=== PATIENT | female | born 1985 | race African-American/Black ===

== ENCOUNTER 2023-11-01 15:45 | Outpatient (OUT) | payer OTHER, SELFPAY ==
--- NOTE | 2023-11-01 18:43 | US_ITS ---
[address] [address] Patient Name: JESSICA MOELLER MRN: [id number] date: 1985 Sex: F Assigned Patient Location: Current Patient Location: Accession/Order Number: [id number] Exam Date: 11/01/2023 18:49 Report Date: 11/02/2023 04:17 At the request of: ELIUD RIVERO Procedure: US OB transvaginal EXAMINATION: US OB transvaginal HISTORY: MISSED MENSES N92.6 COMPARISON: No relevant comparison available. FINDINGS: GESTATIONAL SAC: Present and normal appearing. YOLK SAC: Present and normal appearing. POLE: Present and normal appearing. CARDIAC: Present. UTERUS: Normal size and appearance. OVARIES: Right: Corpus lutein cyst. Left: Normal. CERVIX: 3.7 cm in length and closed. CUL-DE-SAC: Normal. OTHER: None. AGE BY LMP: 8 weeks 5 days RINA BY LMP: 06/07/2024 AGE BY US CRL: 8 weeks 6 days RINA BY US CRL: 06/06/2024 US/US OB transvaginal IMPRESSION: 1. Single live intrauterine . Electronically authenticated by: MICHAEL ORTEGA Date: 11/02/2023 04:17
== END 2023-11-01 15:46 | disposition home or self-care (01) ==
PROVIDERS: PCP Family Medicine; Visit Provider Obstetrics & Gynecology
DX: N92.6 Irregular menstruation, unspecified (principal); Z36.0 Encounter for antenatal screening for chromosomal anomalies; Z3A.08 8 weeks gestation of pregnancy
CPT/HCPCS: 76817; 83036; 86592; 86762; 86803; 86850; 86900; 86901; 87086; 87340; 87389

== ENCOUNTER 2023-11-10 11:46 | Emergency (ER) | payer OTHER, SELFPAY ==
--- OUTSIDE RECORDS SUMMARY | 2023-11-10 11:59 | XMS_ITS | CCD ---
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 Name Role Phone Vicky Joe Unavailable WEST, DR SANON Admitting Unavailable KARASIK, DR SANON Attending Unavailable KARASIK, DR SANON Consulting Unavailable KARASIK, DR SANON Attending Unavailable KARASIK, DR SANON Consulting Unavailable KARASIK, DR SANON Admitting Unavailable CARVAJAL, AIDAN Attending Unavailable CARVAJAL, AIDAN Consulting Unavailable CARVAJAL, AIDAN Admitting Unavailable CRICKETJUAN ANTONIO Attending Unavailable LUIS-NOSSEK, TERESA Alonzo Attending Unavailab le FIOR, EVONNE Attending Unavailable CRICKET, JUAN ANTONIO F Attending Unavailable LUIS-NOSSEK, TERESA M Attending Unavailab le CRICKET, JUAN ANTONIO F Attending Unavailable CRICKET, JUAN ANTONIO F Attending Unavailable CARVAJALAIDAN R Referring Unavailable CARVAJALAIDAN Attending Unavailable CRICKET, JUAN ANTONIO F Attending Unavailable LUIS-NOSSEK, TERESA M Attending Unavailab le FIOR, EVONNE Attending Unavailable LUIS-NOSSEK, TERESA M Attending Unavailab le LUIS-NOSSEK, TERESA M Attending Unavailab le LUIS-NOSSEK, TERESA M Attending Unavailab le LUIS-NOSSEK, TERESA M Attending Unavailab le Allergies Allergy Classification Reported Allergen(s) Allergy Type Date of Onset Reaction(s) Facility (1 source) Aspirin Drug Allergy shortness of breath [employer] Other (1 source) Diclofenac Drug Allergy Unknown [employer] Other (1 source) Ibuprofen Drug Allergy Unknown [employer] Other (1 source) Naproxen Drug Allergy Unknown [employer] Other (1 source) NSAIDs Drug allergy Unknown [employer] Other (1 source) Aspirin Drug Allergy 02-26-18 90 [facility] (1 source) cyclobenzaprine Drug Allergy 01-10-20 15 [facility] (1 source) Diclofenac Drug Allergy 01-10-20 15 [facility] (1 source) Ibuprofen Drug Allergy 08-04-19 16 [facility] (1 source) NSAIDs Drug allergy (disorder) 01-02-20 14 [facility] Medications Current Medications Medication Drug Class(es) Dates Sig (Normalized) Sig (Original) Albuterol Sulfate 108 (90 Base) MCG/ACT (1 source) take 1 puff(s) by inhalation every four hours as needed Albuterol Sulfate 108 (90 Base) MCG/ACT 1 puff as needed Inhalation every 4 hrs Active Benzoyl Peroxide / Clindamycin (1 source) Lincosamide Antibacterial Duac 1.2-5 % Externally Active calcium carbonate 1500 mg / cholecalciferol 200 unt oral tablet (1 source) Vitamin D take 1 tablet by mouth every twenty-four hours Calcium + D 600-200 MG-UNIT 1 tablet with food Orally Once a day Active clonazePAM 0.5 mg disintegrating oral tablet (1 source) Benzodiazepine take 1 tablet by mouth every twelve hours clonazePAM 0.5 MG 1 tablet on the tongue and allow to dissolve Orally Twice a day Active dicyclomine hydrochloride 20 mg oral tablet (1 source) Anticholinergic take 1 tablet by mouth every eight hours Dicyclomine HCl 20 mg 1 tablet Orally THREE TIMES A DAY for 30 days Active ethinyl estradiol 0.03 mg / norethindrone acetate 1.5 mg oral tablet (1 source) Estrogen take 1 tablet by mouth every twenty-four hours Junel 1.530 1.5-30 MG-MCG 1 tablet Orally Once a day Active Fish Oils (1 source) take 1 capsule by mouth once daily Fish Oil 1000 MG 1 capsule Orally Once a day Active fluticasone propionate 0.05 mg/actuat metered dose nasal spray (1 source) Corticosteroid take 1 spray(s) nasal route once daily Flonase 50 MCG/DOSE 1 spray in each nostril Nasally Once a day Active lidocaine 0.05 mg/mg topical ointment (1 source) Antiarrhythmic, Amide Local Anesthetic Lidocaine 5 % 1 application to affected area as needed Externally Three times a day Active montelukast 5 mg chewable tablet (1 source) Leukotriene Receptor Antagonist take 2 tablets by mouth every twenty-four hours Singulair 5 MG 2 tablets in the evening Orally Once a day Active naratriptan 2.5 mg oral tablet (1 source) Serotonin-1b and Serotonin-1d Receptor Agonist take 1 tablet by mouth every twenty-four hours Amerge 2.5 MG 1 tablet as needed one time Orally Once a day Active omeprazole 20 mg delayed release oral capsule (1 source) Proton Pump Inhibitor take 1 capsule by mouth every twenty-four hours Omeprazole 20 MG 1 capsule Orally Once a day Active 24 hr paliperidone 1.5 mg extended release oral tablet (1 source) Atypical Antipsychotic take 2 tablets by mouth at bedtime Invega 1.5 MG 2 tablets in the morning Orally AT BEDTIME Active pantoprazole 40 mg delayed release oral tablet (1 source) Proton Pump Inhibitor Start: 08-02-2016 take 1 tablet by mouth every twenty-four hours Pantoprazole Sodium 40 mg 1 tablet Orally Once a day for 30 days Jul, Active promethazine hydrochloride 25 mg oral tablet (2 sources) Phenothiazine Promethazine HCl 25 MG 1/2 -1 TABLET Orally THREE TIMES A DAY Active Promethazine HCl Active QUEtiapine 25 mg oral tablet (1 source) Atypical Antipsychotic take 1 tablet by mouth every twenty-four hours SEROquel 25 MG 1 tablet Orally Once a day Active sulfamethoxazole 800 mg / trimethoprim 160 mg oral tablet (1 source) Dihydrofolate Reductase Inhibitor Antibacterial, Sulfonamide Antimicrobial take 1 tablet by mouth every twenty-four hours Bactrim DS 800-160 MG 1 tablet Orally DAILY Active tiZANidine 4 mg oral capsule (1 source) Central alpha-2 Adrenergic Agonist take 1 capsule by mouth every eight hours Zanaflex 4 MG 1 capsule as needed Orally Three times a day Active tretinoin 0.5 mg/ml topical cream (1 source) Retinoid Tretinoin 0.05 % 1 application to affected area in the evening to face Externally Once a day Active triamcinolone acetonide 1 mg/ml topical cream (1 source) Corticosteroid Triamcinolone Acetonide 0.1 % 1 application to affected area Externally Twice a day Active vitamin B12 (1 source) Vitamin B12 Vitamin B12 INJECTION MONTHLY Active zonisamide 100 mg oral capsule (1 source) Anti-epileptic Agent take 1 capsule by mouth every twenty-four hours Zonisamide 100 MG 1 capsule Orally Once a day Active Problems Active Problems Problem Classification Problem Date Documented Date Episodic/Chronic Esophageal disorders (1 source) Gastroesophageal reflux disease; Translations: [Gastro-esophageal reflux disease without esophagitis] Chronic Immunizations and screening for infectious disease (2 sources) Encounter for immunization; Translations: [Encounter for screening for human papillomavirus (HPV)] Onset: 05-11-2021 Resolved: 05-11-2021 Episodic Other screening for suspected conditions (not mental disorders or infectious disease) (4 sources) Encounter for screening for malignant neoplasm of cervix; Translations: [ENC SCREENING MALIG NEOPLASM CERV] Onset: 11-09-2021 Episodic Unclassified (2 sources) CONTACT W/AND (SUSP) EXPOS COVID-19; Translations: [CONTACT W/AND (SUSP) EXPOS COVID-19] Onset: 03-06-2021 Viral infection (1 source) COVID-19; Translations: [COVID-19] Onset: 03-06-2021 Past or Other Problems Problem Classification Problem Date Documented Da te Episodic/Chronic Abdominal pain (2 sources) Epigastric pain; Translations: [Epigastric pain] Episodic Nausea and vomiting (1 source) Nausea and vomiting; Translations: [Nausea with vomiting, unspecified] Episodic Other female genital disorders (4 sources) Other specified noninflammatory disorders of vagina; Translations: [OTH SPEC NONINFLAMMATORY D/O VAGINA] Onset: 12-10-2020 Episodic Other gastrointestinal disorders (1 source) Constipation alternates with diarrhea; Translations: [Other specified symptoms and signs involving the digestive system and abdomen] Episodic Other gastrointestinal disorders (1 source) Diarrhea; Translations: [Diarrhea, unspecified] Episodic Unclassified (1 source) CONTACT W/AND (SUSP) EXPOS COVID-19; Translations: [CONTACT W/AND (SUSP) EXPOS COVID-19] Onset: 03-01-2021 Results Test Name Value Interpretation Reference Range Facility XR CERVICAL SPINE AP/LAT/FLE X/EXT/OBLIQUESon 08-16-2023 XR CERVICAL SPINE AP/LAT/FLEX/EXT/OB LIQUES FINDINGS: Normal disc space heights. Minimal osteophyte formation throughout the cervical spine. Mild facet arthropathy. No significant neuroforaminal stenosis. No fracture or focal soft tissue swelling is seen. Prevertebral soft tissues are normal. Flexion and extension: Normal alignment, no instability. IMPRESSION: 1. MInimal arthritis, normal alignment. 2. No instability. TRANSCRIBED BY: ELECTRONICALLY SIGNED BY: Alexei Smith MD Normal Not Available CALCIUMon 12-18-2022 Calcium [Mass/Vol] 8.9 mg/dL Normal (8.6 - 10.6) [facility] Comment on above: Performed By: #### C BC/2A, ESRCRP, CCP, HBC-M, HBSAG, HCV, CA, MG, RHF, URCA #### [facility] [address] [facility], [address] CBC, ALB, ALT, AST, ALK AND CREAon 12-18-2022 Albumin [Mass/Vol] 5.0 g/dL Normal (3.5 - 5.0) [facility] Comment on above: Order Comment: FACIL ITY: [facility] [id number] Performed By: #### C BC/2A, ESRCRP, CCP, HBC-M, HBSAG, HCV, CA, MG, RHF, URCA #### [facility] [address] [facility], [address] ALK PHOS 60 U/L Normal (38 - 126) [facility] Comment on above: Order Comment: FACIL ITY: [facility] [id number] Performed By: #### C BC/2A, ESRCRP, CCP, HBC-M, HBSAG, HCV, CA, MG, RHF, URCA #### [facility] [address] [facility], [address] ALT [Catalytic activity/Vol] 34 U/L Normal (1 - 35) [facility] Comment on above: Order Comment: FACIL ITY: [facility] [id number] Performed By: #### C BC/2A, ESRCRP, CCP, HBC-M, HBSAG, HCV, CA, MG, RHF, URCA #### [facility] [address] [facility], [address] AST [Catalytic activity/Vol] 34 U/L Normal (15 - 46) [facility] Comment on above: Order Comment: FACIL ITY: [facility] [id number] Performed By: #### C BC/2A, ESRCRP, CCP, HBC-M, HBSAG, HCV, CA, MG, RHF, URCA #### [facility] [address] [facility], [id number] Creatinine [Mass/Vol] 0.61 mg/dL Normal (0.52 - 1.04) [facility] Comment on above: Order Comment: FACIL ITY: [facility] [id number] Performed By: #### C BC/2A, ESRCRP, CCP, HBC-M, HBSAG, HCV, CA, MG, RHF, URCA #### [facility] [address] [facility], [id number] GFR- AMER 135.1 ML/M1.7 Normal (60.0 - 140.1) [facility] Comment on above: Order Comment: FACIL ITY: [facility] [id number] Performed By: #### C BC/2A, ESRCRP, CCP, HBC-M, HBSAG, HCV, CA, MG, RHF, URCA #### [facility] [address] [facility], [id number] GFR-NON AFRIC-AMER 111.6 ML/M1.7 Normal (60.0 - 115.8) [facility] Comment on above: Order Comment: FACIL ITY: [facility] [id number] Performed By: #### C BC/2A, ESRCRP, CCP, HBC-M, HBSAG, HCV, CA, MG, RHF, URCA #### [facility] [address] [facility], [address] Hematocrit (Bld) [Volume fraction] 41.5 % Normal (37.0 - 47.0) [facility] Comment on above: Order Comment: FACIL ITY: [facility] [id number] Performed By: #### C BC/2A, ESRCRP, CCP, HBC-M, HBSAG, HCV, CA, MG, RHF, URCA #### [facility] [address] [facility], [address] Hemoglobin (Bld) [Mass/Vol] 13.5 g/dL Normal (12.0 - 16.0) [facility] Comment on above: Order Comment: FACIL ITY: [facility] [id number] Performed By: #### C BC/2A, ESRCRP, CCP, HBC-M, HBSAG, HCV, CA, MG, RHF, URCA #### [facility] [address] [facility], [id number] MCH (RBC) [Entitic mass] 28.7 pg Normal (27.0 - 33.0) [facility] Comment on above: Order Comment: FACIL ITY: [facility] [id number] Performed By: #### C BC/2A, ESRCRP, CCP, HBC-M, HBSAG, HCV, CA, MG, RHF, URCA #### [facility] [address] [facility], [address] MCHC (RBC) [Mass/Vol] 32.5 g/dL Normal (30.0 - 37.0) [facility] Comment on above: Order Comment: FACIL ITY: [facility] [id number] Performed By: #### C BC/2A, ESRCRP, CCP, HBC-M, HBSAG, HCV, CA, MG, RHF, URCA #### [facility] [address] [facility], [id number] MCV (RBC) [Entitic vol] 88.1 fL Normal (81.0 - 99.0) [facility] Comment on above: Order Comment: FACIL ITY: [facility] [id number] Performed By: #### C BC/2A, ESRCRP, CCP, HBC-M, HBSAG, HCV, CA, MG, RHF, URCA #### [facility] [address] [facility], [address] PLT 282 x10^3ul Normal (130 - 400) [facility] Comment on above: Order Comment: FACIL ITY: [facility] [id number] Performed By: #### C BC/2A, ESRCRP, CCP, HBC-M, HBSAG, HCV, CA, MG, RHF, URCA #### [facility] [address] [facility], [address] RBC 4.71 x10^6ul Normal (4.20 - 5.40) [facility] Comment on above: Order Comment: FACIL ITY: [facility] [id number] Performed By: #### C BC/2A, ESRCRP, CCP, HBC-M, HBSAG, HCV, CA, MG, RHF, URCA #### [facility] [address] [facility], [address] WBC 6.47 x10^3ul Normal (3.80 - 10.60) [facility] Comment on above: Order Comment: FACIL ITY: [facility] [id number] Performed By: #### C BC/2A, ESRCRP, CCP, HBC-M, HBSAG, HCV, CA, MG, RHF, URCA #### [facility] [address] [facility], [address] HEP B CORE AB, IGMon HEPATITIS B CORE ANTIBODY, IGM Negative Normal (NEG - NEG) [facility] Comment on above: Performed By: #### C BC/2A, ESRCRP, CCP, HBC-M, HBSAG, HCV, CA, MG, RHF, URCA #### [facility] [address] [facility], [address] HEP B HERACLIO AGon 12-18-2022 HEP B HERACLIO AG Negative Normal (NEG - NEG) [facility] Comment on above: Performed By: #### C BC/2A, ESRCRP, CCP, HBC-M, HBSAG, HCV, CA, MG, RHF, URCA #### [facility] [address] [facility], [address] HEP C ANTIBODYon 12-18-2022 HEPATITIS C ANTIBODY Negative Normal (NEG - NEG) [facility] Comment on above: Performed By: #### C BC/2A, ESRCRP, CCP, HBC-M, HBSAG, HCV, CA, MG, RHF, URCA #### [facility] [address] [facility], [address] MAGNESIUMon 12-18-2022 Magnesium [Mass/Vol] 2.0 mg/dL Normal (1.6 - 2.3) [facility] Comment on above: Performed By: #### C BC/2A, ESRCRP, CCP, HBC-M, HBSAG, HCV, CA, MG, RHF, URCA #### [facility] [address] [facility], [address] RF FACTORon 12-18-2022 RF FACTOR <9 Normal (0 - 12) [facility] Comment on above: Result Comment: RF F ACTOR = LESS THAN 9 IU/ML RF FACTOR MIN. DETECTION = 9 IU/ML. Performed By: #### C BC/2A, ESRCRP, CCP, HBC-M, HBSAG, HCV, CA, MG, RHF, URCA #### [facility] [address] [facility], [address] SED RATE - CRPon 12-18-2022 CRP EXTENDED RANGE 1.40 MG/L Normal (0.00 - 3.20) [facility] Comment on above: Performed By: #### C BC/2A, ESRCRP, CCP, HBC-M, HBSAG, HCV, CA, MG, RHF, URCA #### [facility] [address] [facility], [address] SED RATE WEST. 5 MM/HR Normal (0 - 25) [facility] Comment on above: Performed By: #### C BC/2A, ESRCRP, CCP, HBC-M, HBSAG, HCV, CA, MG, RHF, URCA #### [facility] [address] [facility], [address] URIC ACIDon 12-18-2022 Urate [Mass/Vol] 4.2 mg/dL Normal (2.5 - 6.2) [facility] Comment on above: Performed By: #### C BC/2A, ESRCRP, CCP, HBC-M, HBSAG, HCV, CA, MG, RHF, URCA #### [facility] [address] [facility], [address] PAP ACOG PANEL 2: 30 to 65on 11-16-2021 . . Normal [facility] Comment on above: Result Comment: Perf ormed at: WB Performed By: #### 4 [id number] #### [facility] [address] [address] [address] Sierra Almonte Age Gdln ACOG Testing 30-65 [facility] Comment on above: Performed By: #### 4 [id number] #### [facility] [address] [address] [address] Sierra Almonte DIAGNOSIS: Comment Normal [facility] Comment on above: Result Comment: NEGA TIVE FOR INTRAEPITHELIAL LESION OR MALIGNANCY. Performed at: WB Performed By: #### 4 [id number] #### [facility] [address] [address] [address] Sierra Almonte HPV Aptima Negative Normal Negative [facility] Comment on above: Result Comment: This nucleic acid amplification test detects fourteen high-risk HPV types (16,18,31,33,35,39,45,51,52,56,58,59,66,68) without differentiation. Performed at: =G Performed By: #### 4 [id number] #### [facility] [address] [address] [address] Sierra Almonte Methodology: Comment Normal [facility] Comment on above: Result Comment: This liquid based ThinPrep(R) pap test was screened with the use of an image guided system. Performed at: WB Performed By: #### [id number] #### [facility] [address] [address] [address] Sierra Almonte Note: Comment Normal [facility] Comment on above: Result Comment: The Pap smear is a screening test designed to aid in the detection of premalignant and malignant conditions of the uterine cervix. It is not a diagnostic procedure and should not be used as the sole means of detecting cervical cancer. Both false-positive and false-negative reports do occur. . Performed at: WB Performed By: #### 4 [id number] #### [facility] [address] [address] [address] Sierra Almonte Performed by: Comment Normal [facility] Comment on above: Result Comment: Alison Sapp, Bowling Teacher (ASCP) Performed at: WB Performed By: #### 4 [id number] #### [facility] [address] [address] [address] Sierra Almonte Specimen adequacy: Comment Normal [facility] Comment on above: Result Comment: Sati sfactory for evaluation. Endocervical and/or squamous metaplastic cells (endocervical component) are present. Performed at: WB Performed By: #### 4 [id number] #### [facility] [address] [address] [address] Sierra Almonte US Thyroidon 07-14-2021 US Thyroid HISTORY: Hyperthyroidism FINDINGS: Right Lobe: 3.9 x 1.4 x 1.8 cm Left Lobe: 4.4 x 1.4 x 1.2 cm Isthmus (Thickness)2 mm Normal echotexture involves the thyroid gland. No significant enlargement is identified. No suspicious cystic or solid mass lesions are seen. IMPRESSION: Normal thyroid ultrasound. RECOMMENDATIONS CANCER RISK (ACR TI-RADS 2018) TR1: no FNA required TR1: 0.3% TR2: no FNA required TR2: 1.5 % TR3>: 1.5 cm follow up, >2.5 cm FNA TR3: 4.8 % Follow up 1, 3, 5 years TR4:>1.0 cm follow up >1.5 cm FNA TR4: 9.1 % Follow up: 1, 2, 3 and 5 years TR5:> 0.5 cm follow up, >1.0 cm FNA TR5: 35% Annual follow up for up to 5 years Biopsy is recommended for suspicious lesions (TR3-TR5) with the above size criteria. If there are multiple nodules, the two with the highest ACR TI-RADS grades should be sampled (rather than the two largest) Interval enlargement on follow up is felt to be significant if there is a increase of 20% and 2 mm in two dimensions, or a 50% increase in volume. If the ACR TI-RAD level increases between scans, and interval scan the following year is again recommended. Report reported and signed by Alexei Smith on 07/14/2021 1000 Normal [facility] Complete Blood Count with Au to Diffon 07-12-2021 Basophils (Bld) [#/Vol] 0.02 10*3/uL Normal 0.00-0.20 [facility] Comment on above: Performed By: #### C BCAD, RF, VITD, ESR, TSH reflex FT4, CMP, FT4 #### [facility] [address], [place] [id number] Basophils/100 WBC (Bld) 0.3 % Normal [facility] Comment on above: Performed By: #### C BCAD, RF, VITD, ESR, TSH reflex FT4, CMP, FT4 #### [facility] [address], [place] [id number] Eosinophils (Bld) [#/Vol] 0.08 10*3/uL Normal 0.02-0.50 [facility] Comment on above: Performed By: #### C BCAD, RF, VITD, ESR, TSH reflex FT4, CMP, FT4 #### [facility] [address], [place] [id number] Eosinophils/100 WBC (Bld) 1.2 % Normal [facility] Comment on above: Performed By: #### C BCAD, RF, VITD, ESR, TSH reflex FT4, CMP, FT4 #### [facility] [address], [place] [id number] Erythrocyte distribution width (RBC) [Ratio] 13.8 % Normal 11.0-15.0 [facility] Comment on above: Performed By: #### C BCAD, RF, VITD, ESR, TSH reflex FT4, CMP, FT4 #### [facility] [address], [place] [id number] Hematocrit (Bld) [Volume fraction] 39.6 % Normal 35.0-47.0 [facility] Comment on above: Performed By: #### C BCAD, RF, VITD, ESR, TSH reflex FT4, CMP, FT4 #### [facility] [address], [place] [id number] Hemoglobin (Bld) [Mass/Vol] 12.9 g/dL Normal 11.6-15.5 [facility] Comment on above: Performed By: #### C BCAD, RF, VITD, ESR, TSH reflex FT4, CMP, FT4 #### [facility] [address], [place] [id number] Lymphocytes (Bld) [#/Vol] 1.3 10*3/uL Normal 0.9-3.9 [facility] Comment on above: Performed By: #### C BCAD, RF, VITD, ESR, TSH reflex FT4, CMP, FT4 #### [facility] [address], [place] [id number] Lymphocytes/100 WBC (Bld) 20.3 % Normal [facility] Comment on above: Performed By: #### C BCAD, RF, VITD, ESR, TSH reflex FT4, CMP, FT4 #### [facility] [address], [place] [id number] MCH (RBC) [Entitic mass] 28.3 pg Normal 27.0-33.0 [facility] Comment on above: Performed By: #### C BCAD, RF, VITD, ESR, TSH reflex FT4, CMP, FT4 #### [facility] [address], [place] [id number] MCHC (RBC) [Mass/Vol] 32.6 g/dL Normal 32.0-36.0 [facility] Comment on above: Performed By: #### C BCAD, RF, VITD, ESR, TSH reflex FT4, CMP, FT4 #### [facility] [address], [place] [id number] MCV (RBC) [Entitic vol] 87 fL Normal 80-100 [facility] Comment on above: Performed By: #### C BCAD, RF, VITD, ESR, TSH reflex FT4, CMP, FT4 #### [facility] [address], [place] [id number] Monocytes (Bld) [#/Vol] 0.4 10*3/uL Normal 0.2-0.9 [facility] Comment on above: Performed By: #### C BCAD, RF, VITD, ESR, TSH reflex FT4, CMP, FT4 #### [facility] [address], [place] [id number] Monocytes/100 WBC (Bld) 5.8 % Normal [facility] Comment on above: Performed By: #### C BCAD, RF, VITD, ESR, TSH reflex FT4, CMP, FT4 #### [facility] [address], [place] [id number] Neutrophils (Bld) [#/Vol] 4.7 10*3/uL Normal 1.5-7.8 [facility] Specialist Comment on above: Performed By: #### C BCAD, RF, VITD, ESR, TSH reflex FT4, CMP, FT4 #### [facility] [address], [place] [id number] Neutrophils/100 WBC (Bld) 72.1 % Normal [facility] Specialist Comment on above: Performed By: #### C BCAD, RF, VITD, ESR, TSH reflex FT4, CMP, FT4 #### [facility] [address], [place] [id number] Platelet mean volume (Bld) [Entitic vol] 11.00 fL Normal 7.50-12.50 [facility] Specialist Comment on above: Performed By: #### C BCAD, RF, VITD, ESR, TSH reflex FT4, CMP, FT4 #### [facility] [address], [place] [id number] Platelets (Bld) [#/Vol] 271 10*3/uL Normal 140-400 [facility] Specialist Comment on above: Performed By: #### C BCAD, RF, VITD, ESR, TSH reflex FT4, CMP, FT4 #### [facility] [address], [place] [id number] RBC (Bld) [#/Vol] 4.56 10*6/uL Normal 3.90-5.20 [facility] Charge Master Analyst Comment on above: Performed By: #### C BCAD, RF, VITD, ESR, TSH reflex FT4, CMP, FT4 #### [facility] [address], [place] [id number] RDW-SD 43.5 fL Normal 37.0-50.0 [facility] Charge Master Analyst Comment on above: Performed By: #### C BCAD, RF, VITD, ESR, TSH reflex FT4, CMP, FT4 #### [facility] [address], [place] [id number] WBC (Bld) [#/Vol] 6.5 10*3/uL Normal 3.8-11.0 [facility] Charge Master Analyst Comment on above: Performed By: #### C BCAD, RF, VITD, ESR, TSH reflex FT4, CMP, FT4 #### [facility] [address], [place] [id number] Comprehensive Metabolic Pane [facility] 07-12-2021 Albumin [Mass/Vol] 4.9 g/dL Normal 3.6-5.1 [facility] Charge Master Analyst Comment on above: Performed By: #### C BCAD, RF, VITD, ESR, TSH reflex FT4, CMP, FT4 #### [facility] [address], [place] [id number] Albumin/Globulin [Mass ratio] 2.2 {ratio} Normal 1.0-2.5 [facility] Charge Master Analyst Comment on above: Performed By: #### C BCAD, RF, VITD, ESR, TSH reflex FT4, CMP, FT4 #### [facility] [address], [place] [id number] ALP [Catalytic activity/Vol] 63 U/L Normal 35-119 [facility] Charge Master Analyst Comment on above: Performed By: #### C BCAD, RF, VITD, ESR, TSH reflex FT4, CMP, FT4 #### [facility] [address], [place] [id number] ALT [Catalytic activity/Vol] 26 U/L Normal 6-33 [facility] Charge Master Analyst Comment on above: Result Comment: 01/26 Female reference range changed. Performed By: #### C BCAD, RF, VITD, ESR, TSH reflex FT4, CMP, FT4 #### [facility] [address], [place] [id number] Anion gap [Moles/Vol] 18 mmol/L Normal 12-20 [facility] Comment on above: Result Comment: Efflynette ctive 03/03/2019 reference range changed. Performed By: #### C BCAD, RF, VITD, ESR, TSH reflex FT4, CMP, FT4 #### [facility] [address], [place] [id number] AST [Catalytic activity/Vol] 26 U/L Normal 9-34 [facility] Comment on above: Performed By: #### C BCAD, RF, VITD, ESR, TSH reflex FT4, CMP, FT4 #### [facility] [address], [place] [id number] BUN/CREA 10 Ratio Normal 6-22 [facility] Comment on above: Performed By: #### C BCAD, RF, VITD, ESR, TSH reflex FT4, CMP, FT4 #### [facility] [address], [place] [id number] Calcium [Mass/Vol] 10.0 mg/dL Normal 8.6-10.2 [facility] Comment on above: Performed By: #### C BCAD, RF, VITD, ESR, TSH reflex FT4, CMP, FT4 #### [facility] [address], [place] [id number] Chloride [Moles/Vol] 105 mmol/L Normal 98-107 [facility] Specialist Comment on above: Performed By: #### C BCAD, RF, VITD, ESR, TSH reflex FT4, CMP, FT4 #### [facility] [address], [place] [id number] CO2 [Moles/Vol] 21 mmol/L Normal 20-31 [facility] Specialist Comment on above: Performed By: #### C BCAD, RF, VITD, ESR, TSH reflex FT4, CMP, FT4 #### [facility] [address], [place] [id number] Creatinine [Mass/Vol] 0.6 mg/dL Normal 0.6-1.4 [facility] Specialist Comment on above: Performed By: #### C BCAD, RF, VITD, ESR, TSH reflex FT4, CMP, FT4 #### [facility] [address], [place] [id number] eGFRAA 132 mL/min/1.73m2 Normal >60 [facility] Specialist Comment on above: Performed By: #### C BCAD, RF, VITD, ESR, TSH reflex FT4, CMP, FT4 #### [facility] [address], [place] [id number] eGFRNAA 109 mL/min/1.73m2 Normal >60 [facility] Specialist Comment on above: Performed By: #### C BCAD, RF, VITD, ESR, TSH reflex FT4, CMP, FT4 #### [facility] [address], [place] [id number] Globulin (S) [Mass/Vol] 2.2 g/dL Normal 1.9-3.7 [facility] Specialist Comment on above: Performed By: #### C BCAD, RF, VITD, ESR, TSH reflex FT4, CMP, FT4 #### [facility] [address], [place] [id number] Glucose [Mass/Vol] 86 mg/dL Normal 65-99 [facility] Charge Master Analyst Comment on above: Result Comment: For FASTING Glucose --- ADA reference ranges: Normal 65-99 mg/dl Prediabetes 100-125 Diabetes >/= 126 Performed By: #### C BCAD, RF, VITD, ESR, TSH reflex FT4, CMP, FT4 #### [facility] [address], [place] [id number] Potassium [Moles/Vol] 4.1 mmol/L Normal 3.5-5.5 [facility] Specialist Comment on above: Performed By: #### C BCAD, RF, VITD, ESR, TSH reflex FT4, CMP, FT4 #### [facility] [address], [place] [id number] Protein [Mass/Vol] 7.1 g/dL Normal 6.1-8.1 [facility] Charge Master Analyst Comment on above: Performed By: #### C BCAD, RF, VITD, ESR, TSH reflex FT4, CMP, FT4 #### [facility] [address], [place] [id number] Sodium [Moles/Vol] 140 mmol/L Normal 135-146 [place] [place] Charge Master Analyst Comment on above: Performed By: #### C BCAD, RF, VITD, ESR, TSH reflex FT4, CMP, FT4 #### [facility] [address], [place] [id number] TBIL <0.3 Normal [facility] Specialist Comment on above: Performed By: #### C BCAD, RF, VITD, ESR, TSH reflex FT4, CMP, FT4 #### [facility] [address], [place] [id number] Urea nitrogen [Mass/Vol] 7 mg/dL Normal 7-25 [facility] Charge Master Analyst Comment on above: Performed By: #### C BCAD, RF, VITD, ESR, TSH reflex FT4, CMP, FT4 #### [facility] [address], [place] [id number] Free T4on 07-12-2021 Free T4 [Mass/Vol] 0.93 ng/dL Normal 0.80-1.80 [place] Charge Master Analyst Comment on above: Performed By: #### C BCAD, RF, VITD, ESR, TSH reflex FT4, CMP, FT4 #### [facility] [address], [place] [id number] Q - PASQUALE SCREEN IFA W/RFL TIT ER AND PATTERNon 07-12-2021 PASQUALE SCREEN, IFA Negative Normal NEGATIVE [facility] Specialist Comment on above: Order Comment: [facility] Testing performed at: QPT, [facility], [address], [address] [facility], [place], [address], Fiberglass Quality Technician: Leonard Turpin MD [facility] Collection Date/Time: [facility] Results Received Date/Time: [facility] Reported Date/Time: Result Comment: PASQUALE IFA is a first line screen for detecting the presence of up to approximately 150 autoantibodies in various autoimmune diseases. A negative PASQUALE IFA result suggests an PASQUALE-associated autoimmune disease is not present at this time, but is not definitive. If there is high clinical suspicion for Sjogren's syndrome, testing for anti-SS-A/Ro antibody should be considered. Anti-Ann-1 antibody should be considered for clinically suspected inflammatory myopathies. AC-0: Negative International Consensus on PASQUALE Patterns (https://doi.org/10.1515/fgsq-1033-4860) For additional information, please refer to http://education.Stand In/faq/JSR861 (This link is being provided for informational/ educational purposes only.) Performed By: #### 2 49 #### [facility] [address] [place] [id number] RBC Sedimentation Rateon ESR (Bld) [Velocity] 8.00 mm/h Normal 0.00-20.00 [facility] Comment on above: Performed By: #### C BCAD, RF, VITD, ESR, TSH reflex FT4, CMP, FT4 #### [facility] [address], [place] [id number] Rheumatoid Factoron 07-13-19 22 RF <10 Normal [facility] Comment on above: Performed By: #### C BCAD, RF, VITD, ESR, TSH reflex FT4, CMP, FT4 #### [facility] [address], [place] [id number] TSH w/ Reflex to Free T4on 0 07-12-2021 TSH 0.321 uIU/mL Low 0.400-4.500 [facility] Charge Master Analyst Comment on above: Performed By: #### C BCAD, RF, VITD, ESR, TSH reflex FT4, CMP, FT4 #### [facility] [address], [place] [id number] Vitamin D 25-OHon 07-12-2021 VIT D 25 OH 19 ng/ml Low >29 [facility] Specialist Comment on above: Result Comment: Ade min D Status Deficiency <20 ng/mL Insufficiency 20-29 ng/mL Optimal 30-100 ng/mL Possible Toxicity >=150 ng/mL Performed By: #### C BCAD, RF, VITD, ESR, TSH reflex FT4, CMP, FT4 #### [facility] [address], [place] [id number] Comprehensive Metabolic Empo n 04-11-2021 Albumin [Mass/Vol] 4.6 g/dL Normal 3.2-5.5 [facility] Comment on above: Performed By: #### E BS CMP, EBS LIPID #### [facility] [address] [id number] [place] Albumin/Globulin [Mass ratio] 1.9 {ratio} Normal [facility] Comment on above: Performed By: #### E BS CMP, EBS LIPID #### [facility] [address] [id number] [place] ALP [Catalytic activity/Vol] 43 U/L Normal 32-92 [facility] Comment on above: Performed By: #### E BS CMP, EBS LIPID #### [facility] [address] [id number] [place] ALT [Catalytic activity/Vol] 17 U/L Normal 10-60 [facility] Comment on above: Performed By: #### E BS CMP, EBS LIPID #### [facility] [address] [place] [address] [place] AST [Catalytic activity/Vol] 20 U/L Normal 10-42 [facility] Comment on above: Performed By: #### E BS CMP, EBS LIPID #### [facility] [address] [place] [address] [place] Bilirubin [Mass/Vol] 1.1 mg/dL Normal 0.3-1.2 [facility] Comment on above: Performed By: #### E BS CMP, EBS LIPID #### [facility] [address] [place] [address] [place] Calcium [Mass/Vol] 9.6 mg/dL Normal 8.2-10.2 [facility] Comment on above: Performed By: #### E BS CMP, EBS LIPID #### [facility] [address] [place] [address] [place] Chloride [Moles/Vol] 102 mmol/L Normal 95-114 [facility] Comment on above: Performed By: #### E BS CMP, EBS LIPID #### [facility] [address] [place] [address] [place] CO2 [Moles/Vol] 21.4 mmol/L Low 22.0-30.0 [facility] Comment on above: Performed By: #### E BS CMP, EBS LIPID #### [facility] [address] Creatinine [Mass/Vol] 0.71 mg/dL Normal 0.44-1.03 [facility] Comment on above: Performed By: #### E BS CMP, EBS LIPID #### [address] Estimated GFR ( Michelle > 60 Normal [facility] Comment on above: Result Comment: GFR estimated reference range: According to KDOQI guidelines, <60 ml/min/1.73m2 is sufficient to diagnose a patient with chronic kidney disease. Performed By: #### E BS CMP, EBS LIPID #### [facility] [address] [place] [address] Estimated GFR (Non- Am > 60 Normal [facility] Comment on above: Performed By: #### E BS CMP, EBS LIPID #### [facility] [address] [place] [address] Globulin (S) [Mass/Vol] 2.4 g/dL Normal [facility] Comment on above: Performed By: #### E BS CMP, EBS LIPID #### [facility] [address] [place] [address] [place] Glucose [Mass/Vol] 76 mg/dL Normal 70-100 [facility] Comment on above: Performed By: #### E BS CMP, EBS LIPID #### [facility] [address] [place] [address] [place] Potassium [Moles/Vol] 3.3 mmol/L Low 3.5-5.1 [facility] Comment on above: Performed By: #### E BS CMP, EBS LIPID #### [facility] [address] [place] [address] Protein [Mass/Vol] 7.0 g/dL Normal 6.1-7.9 [facility] Comment on above: Performed By: #### E BS CMP, EBS LIPID #### [facility] [address] [place] [id number] [place] Sodium [Moles/Vol] 136 mmol/L Normal 136-146 [facility] Comment on above: Performed By: #### E BS CMP, EBS LIPID #### [facility] [address] [place] [id number] [place] Urea nitrogen [Mass/Vol] 5 mg/dL Low 9-23 [facility] Comment on above: Performed By: #### E BS CMP, EBS LIPID #### [facility] [address] [id number] [facility] Lipid Profileon 04-11-2021 Cholesterol [Mass/Vol] 189 mg/dL Normal 140-200 [facility] Comment on above: Result Comment: Chol less than 200 mg/dl low risk Chol 201-239 mg/dl borderline risk Chol 240 mg/dl and greater high risk Performed By: #### E BS CMP, EBS LIPID #### [facility] [address] Cholesterol in HDL [Mass/Vol] 69 mg/dL Normal 35-85 [facility] Comment on above: Result Comment: HDL CHOL ATP-III CLASSIFICATION Cardiovascular Risk HDL > or equal to 60 mg/dL LOW HDL < 40 mg/dL HIGH Performed By: #### E BS CMP, EBS LIPID #### [facility] [address] [place] [id number] [facility] Cholesterol.total/ Cholesterol in HDL [Mass ratio] 2.7 {ratio} Normal <5.0 [facility] Comment on above: Result Comment: PERF ORMED BY: [facility] [address] [place] [address] PATHOLOGIST MANAGER OF PROGRAM PAT PETERS M.D. Performed By: #### E BS CMP, EBS LIPID #### [facility] [address] [place] [id number] [facility] LDL Cholesterol,Calcul ated 107 mg/dL High 0-100 [facility] Comment on above: Result Comment: LDL ATP III CLASSIFICATION LDL less than 100 mg/dL Optimal LDL 100-129 mg/dL Near or above optimal LDL 130-159 mg/dL Borderline high LDL 160-189 mg/dL High LDL greater than 189 mg/dL Very high Performed By: #### E BS CMP, EBS LIPID #### [facility] [address] Triglyceride w/Reflex 64 mg/dL Normal 35-149 [facility] Comment on above: Result Comment: TRIG ATP III CLASSIFICATION TRIG less than 150 mg/dL Normal TRIG 150-199 mg/dL Borderline high TRIG 200-500 mg/dL High TRIG greater than 500 mg/dL Very high Standard traceable to the Center for Disease Conrtrol and Prevention (CDC) test method. Performed By: #### E BS CMP, EBS LIPID #### [facility] [address] VLDL CHOLESTEROL 12 mg/dL Normal [facility] Comment on above: Performed By: #### E BS CMP, EBS LIPID #### [facility] [address] Covid-19 PCR (CVDTB)on SARS-CoV-2 (COVID-19) RNA ERIC+probe Ql (Unsp spec) Detected Critically abnormal NOT DETECTED [facility] Comment on above: Result Comment: This test is not yet approved or cleared by the [place] FDA. When there are no FDA-approved or cleared tests available, and other criteria are met, FDA can make tests available under an emergency access mechanism called an Emergency Use Authorization (EUA). The EUA for this test is supported by the [place] of Health and Human Service's (HHS's) declaration that circumstances exist to justify the emergency use of in vitro diagnostics for the detection and/or diagnosis of the virus that causes COVID-19. This EUA will remain in effect (meaning this test can be used) for the duration of the COVID-19 declaration justifying emergency of IVDs, unless it is terminated or revoked by FDA (after which the test may no longer be used). Performed By: #### C VDTBH #### [facility] [address] [place], [place] [address] Dr. Sierra Almonte CHLAMYDIA/GONOCOCCUS ERIC (SW AB/URINE/PAPon 10-19-2021 Chlamydia trachomatis, ERIC Negative Normal Negative [facility] Comment on above: Performed By: #### C T/NGNA #### [facility] [address] [place] [address] [address] Sierra Almonte Neisseria gonorrhoeae, ERIC Negative Normal Negative [facility] Comment on above: Performed By: #### C T/NGNA #### [facility] [address] [address] [address] Sierra Almonte VAGINITIS/VAGINOSIS DNA PROB Andrew 12-11-2020 Zaynab species Negative Normal Negative [facility] Comment on above: Performed By: #### V AGINT #### [facility] [address] [address] [address] Sierra Almonte Gardnerella vaginalis Positive Abnormal Negative [facility] Comment on above: Performed By: #### V AGINT #### [facility] [address] [place] [address] [address] Sierra Almonte Trichomonas vaginalis Negative Normal Negative [facility] Comment on above: Performed By: #### V AGINT #### [facility] [address] [address] [address] Sierra Almonte Encounters Encounter Date Encounter Type Care Provider Facility Start: 11-01-2023 End: 11-01-2023 ambulatory JUAN ANTONIO HARLEY Not Available Start: 10-18-2023 End: 10-18-2023 ambulatory JUAN ANTONIO HARLEY Not Available Start: 09-25-2023 End: 09-25-2023 ambulatory JUAN ANTONIO HARLEY Not Available Start: 09-25-2023 End: 09-25-2023 ambulatory TERESA Cheri LUIS-NOSSEK Not Available Start: 2023 End: 2023 ambulatory JUAN ANTONIO HARLEY Not Available Start: 08-21-2023 End: 08-21-2023 ambulatory JUAN ANTONIO HARLEY Not Available Start: 08-16-2023 End: 08-16-2023 ambulatory AIDAN CARVAJAL Not Available Start: 08-10-2023 End: 08-10-2023 ambulatory JUAN ANTONIO JARRELLER Not Available Start: 08-07-2023 End: 08-07-2023 ambulatory TERESA M LUIS-NOSSEK Not Available Start: 06-28-2023 End: 06-28-2023 ambulatory EVONNE CHILDRESS Not Available Start: 06-20-2023 End: 06-20-2023 ambulatory TERESA Alonzo LUIS-NOSSEK Not Available Start: 06-11-2023 End: 06-11-2023 ambulatory TERESA Alonzo LUIS-NOSSEK Not Available Start: 03-21-2023 End: 03-21-2023 ambulatory TERESA Alonzo LUIS-NOSSEK Not Available Start: 02-14-2023 End: 02-14-2023 ambulatory TERESA Alonzo LUIS-NOSSEK Not Available Start: 01-17-2023 End: 01-17-2023 ambulatory TERESA Alonzo LUIS-NOSSEK Not Available Start: 11-09-2021 End: 11-09-[address] TALITA DODSON Facility:[facility] Start: 05-11-2021 ([facility] C Vac) [facility] Co vid Vaccine Vicky Joe [facility] Start: 05-11-2021 End: 05-11-2021 ambulatory Vicky Joe Other [employer] Other Start: 03-01-2021 End: 03-01-2021 ambulatory AIDANSUBHASH CARVAJAL Facility:[facility] Start: 12-10-2020 End: 12-10-[address] TALITA DODSON Facility:[facility] Procedures Date Procedure Procedure Detail Performing Clinician Start: 12-18-2022 Cyclic citrullinated peptide antibody Comment on above: Performed By: #### C BC/2A, ESRCRP, CCP, HBC-M, HBSAG, HCV, CA, MG, RHF, URCA #### [facility] [address] [facility], [address] Immunizations Immunization Date Immunization Notes Care Provider Fa ciliearnest 05-11-2021 COVID-19 En Joe Other [employer] Other Payers Date Payer Category Payer Unknown [id number] 2.16.84 [id number] 1987 Unknown [id number] 2.16.84 0.1.017319.3.579.2.593 1987 Unknown [id number] .16.84 0.1.808246.3.579.2.593 1987 Unknown [id number] 2.16.84 0.1.680821.3.579.2.1258 1987 Unknown [id number] .16.84 0.1.653510.3.579.2.1258 1987 Unknown [id number] .16.84 0.1.061932.3.579.2.1258 1987 Unknown [id number] .16.84 0.1.540448.3.579.2.1258 1987 Unknown [id number] .16.84 0.1.787623.3.579.2.1258 1987 Unknown [id number] .16.84 0.1.729232.3.579.2.1258 1987 Unknown [id number] .16.84 0.1.169147.3.579.2.1258 1987 Unknown [id number] .16.84 0.1.508132.3.579.2.1258 1987 Unknown [id number] .16.84 0.1.069523.3.579.2.1258 1987 Unknown [id number] .16.84 0.1.464534.3.579.2.1258 1987 Unknown [id number] .16.84 0.1.283781.3.579.2.1258 1987 Unknown [id number] .16.84 0.1.111776.3.579.2.1258 1987 Unknown [id number] .16.84 0.1.721800.3.579.2.1258 1987 Unknown [id number] 2.16.84 0.1.028188.3.579.2.1258 1987 Unknown [id number] 2.16.84 0.1.350673.3.579.2.1259 1987 Unknown [id number] 2.16.840 .1.511859.3.579.2.9 1987 Unknown [id number] 2.16.840 .1.802633.3.579.2.1259 1959 Unknown [id number] 2. [id number] Social History Date Type Detail Facility Unknown if ever smoked [employer] Other Sex Assigned At Sex Assigned At Bir th [employer] Other Clinical Note 08-03-2021 Note Date & Type Note Facility 08-03-2021 Note FINDINGS: Sonographic evaluation targeted to the painful palpable areas within the right breast. Multiple subcentimeter benign simple cysts within the right upper quadrant. Mild periareolar ductal dilatation (3-4 mm diameter). No suspicious solid nodule or mass. IMPRESSION: BI RADS 2 : BENIGN FINDINGS Report reported and signed by Alexei Smith on 08/03/2021 [id number] [facility] Charge Master Analyst Evaluation note 05-11-2021 Note Date & Type Note Facility 05-11-2021 Evaluation note Encounter Date Diagnosis Assessment Notes Apr, Encounter for immunization (ICD-10 - Z23) Patient presents for COVID-19 vaccination #2. Pre-screening form answers evaluated with patient. Patient denies current illness or allergic reaction to component of COVID-19 vaccine. Patient provided with current copy of EUA. [employer] Other History general Narrative - Reported Note Date & Type Note Facility History general Narrative - Reported Type Medical History DEPRESSIVE DISORDER Medical History ASTHMA Medical History ANXIETY Medical History MIGRAINES Medical History BIPOLAR Medical History BACK PAIN Medical History ANEMIA Surgical History umbilical herniorrhaphy 2007 Surgical History colposcopy 2012 Surgical History adenoma removed from left breas t Surgical History tibial and fibular sesmoid 8-20 15 [employer] Other Summary Purpose Family History No Family History Records FoundNo Family History Records FoundNo Family History Records FoundNo Family History Records FoundNo Family History Records Found Advance Directives No Advanced Directives Records FoundNo Advanced Directives Records FoundNo Advanced Directives Records FoundNo Advanced Directives Records FoundNo Advanced Directives Records Found Additional Source Comments INFORMATION SOURCE (unrecogn ized section and content) DATE CREATED AUTHOR 05/25/2021 [place] DATE CREATED AUTHOR AUTHOR'S ORGANIZ ATION 08/04/2021 [facility] dical Specialist DATE CREATED AUTHOR AUTHOR'S ORGANIZ ATION 11/23/2021 [facility] DATE CREATED AUTHOR AUTHOR'S ORGANIZ ATION 12/19/2022 [facility] DATE CREATED AUTHOR AUTHOR'S ORGANIZ ATION 11/03/2023 [facility] dical Specialists EPIC REASON FOR VISIT (unrecogniz ed section and content) 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 This clinical summary was aggregated from multiple sources. Caution should be exercised in using it in the provision of clinical care. This summary normalizes information from multiple sources, and as a consequence, information in this document may materially change the coding, format and clinical context of patient data. In addition, data may be omitted in some cases. CLINICAL DECISIONS SHOULD BE BASED ON THE PRIMARY CLINICAL RECORDS. [facility] [employer] provides no warranty or guarantee of the accuracy or completeness of information in this document.
[2023-11-10 12:04] VITALS: BP 110/69; PULSE 83; TEMP 37.4; O2SAT 100; BMI 24.0
[2023-11-10 12:11] VITALS: O2SAT 100
--- NOTE | 2023-11-10 12:33 | ED_ITS ---
HPI - URI/Sore Throat General Chief Complaint: Upper Respiratory Infection Stated Complaint: FLU LIKE SYMPTOMS Time Seen by Provider: 11/10/23 12:33 Source: patient and family Limitations: no limitations History of Present Illness HPI Narrative: This patient is here complaining of cough cold congestion stuffiness sore throat. Today she has aches and pains. She has had decreased fluid and food intake over the last 3 days. She has 9 weeks and she has had some problems with nausea ongoing that seems of gotten worse. She states that she is voiding a little bit less than usual. She is not having any hematuria, dysuria frequency or symptoms of a UTI are all negative. She has no back or flank pain. She is under the care of a local DISPLAY SCREEN FABRICATOR and has not had complications with the . She did not test for COVID at home. She vapes occasionally but does not use tobacco products. She says she does have asthma but she is not using her inhaler and does not have any shortness of breath or wheezing at this time. Related Data Home Medications ?Medication ?Instructions ?Recorded ?Confirmed No Known Home Medications 11/10/23 11/10/23 Allergies Allergy/AdvReac Type Severity Reaction Status Date / Time aspirin AdvReac Mild Anaphylaxis Verified 11/10/23 12:03 NSAIDS (Non-Steroidal AdvReac Mild Hives Verified 11/10/23 12:03 Anti-Inflamma PFSH PFSH Social History Little interest or pleasure in doing things: not at all Feeling down, depressed, or hopeless: not at all Exam Narrative Exam Narrative: This patient's vital signs are as noted. There is no hypoxemia. No tachypnea and no respiratory distress. She does not have any cough or congestion. She is a very good historian she is awake alert pleasant does not feel very well with all these aches and pains. Cognition and mentation short and long-term memory are normal with no evidence of altered mental status. There is no severe headache. She moves about comfortably with no focal neurological symptoms or deficits. Constitutional Vital Signs, click to edit/add: Last Vital Signs Temp 99.4 F 11/10/23 12:04 Pulse 83 11/10/23 12:04 Resp 18 11/10/23 12:04 BP 110/69 11/10/23 12:04 Pulse Ox 100 11/10/23 12:11 O2 Del Method Room Air 11/10/23 12:11 Course Vital Signs Vital signs: Vital Signs Temperature 99.4 F 11/10/23 12:04 Pulse Rate 83 11/10/23 12:04 Respiratory Rate 18 11/10/23 12:04 Blood Pressure 110/69 11/10/23 12:04 Pulse Oximetry 100 11/10/23 12:04 Oxygen Delivery Method Room Air 11/10/23 12:04 Temperature 99.4 F 11/10/23 12:04 Pulse Rate 83 11/10/23 12:04 Respiratory Rate 18 11/10/23 12:04 Blood Pressure 110/69 11/10/23 12:04 Pulse Oximetry 100 11/10/23 12:11 Oxygen Delivery Method Room Air 11/10/23 12:11 MDM - URI/Sore Throat MDM Narrative Medical decision making narrative: This patient's symptoms are worse strongly suggestive of a viral infection/COVID. In fact she is positive. Based on her history I thought she would benefit from some IV fluids and we did give her a liter. She does feel better. Her chest x-ray does not show any infiltrates. Her oximetry is normal blood pressure is normal. She is young and healthy with no chlamydia morbidities. I do not believe she is a candidate for Paxlovid. All this was discussed in detail with the patient and her mother. They are to call their HIMS CODER's office on Sunday. Should she have any complications she should return to emergency room. I would also advise them to purchase a pulse oximeter. 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 Speak with your commercial lending assistant on Sunday, return for any concerns or worsening Referrals: JUAN ANTONIO HARLEY [Primary Care Provider] - 1 week
--- NOTE | 2023-11-10 12:34 | XR_ITS ---
The [address] [address] Patient Name: JESSICA MOELLER MRN: [id number] date: 1985 Sex: F Assigned Patient Location: ER Current Patient Location: Accession/Order Number: [id number] Exam Date: 11/10/2023 13:40 Report Date: 11/10/2023 14:28 At the request of: KESHA LAYNE Procedure: XR chest 1V EXAM: XR chest 1V HISTORY: Chest congestion. COMPARISON: None. TECHNIQUE: AP erect portable chest radiograph performed. FINDINGS: The trachea is midline. The heart size is within normal limits. The cardiomediastinal silhouette and hilar shadows are within normal limits. There is no consolidation, pleural effusion or pulmonary vascular congestion. There is no pneumothorax. The osseous structures are unremarkable. XR/XR chest 1V IMPRESSION: Unremarkable AP erect portable chest radiograph. Electronically authenticated by: WANDY GRAY Date: 11/10/2023 14:28
[2023-11-10] MEDS: 0.9 % SODIUM CHLORIDE 1,000 ML 999 ML IV (13:02)
[2023-11-10 13:20] LABS: Basophils Percent Auto 0.2 % (0.2-2.0); Eosinophils Absolute Auto 0.2 10^3/uL (0.0-0.7); Hematocrit 37.9 % (36.0-48.0); Hemoglobin 12.6 g/dL (12.0-16.0); Immature Granulocytes Abs Auto 0.05 10^3/uL (0.00-0.03); Immature Granulocytes Pct Auto 0.5 % (0.0-0.5); Lymphocytes Absolute Auto 1.1 10^3/uL (1.2-3.8); Lymphocytes Percent Auto 11.3 % (20.5-60.0); Mean Corpuscular HGB Conc 33.2 g/dL (29.9-35.2); Mean Corpuscular Hemoglobin 28.3 pg (26.7-34.0); Mean Platelet Volume 10.7 fL (9.5-13.5); Monocytes Absolute Auto 0.6 10^3/uL (0.3-0.8); Monocytes Percent Auto 6.7 % (1.7-12.0); Neutrophils Absolute Auto 7.5 10^3/uL (1.4-6.5); Neutrophils Percent Auto 79.3 % (43.0-75.0); Platelet Count 229 10^3/uL (150-450); Red Blood Count 4.46 10^6/uL (4.20-5.40); Red Cell Distribution Width 12.6 % (11.0-15.0); White Blood Count 9.5 10^3/uL (4.0-11.0)
[2023-11-10 13:30] LABS: Anion Gap 15.4; BUN Creatinine Ratio 9.6; Calcium 9.2 mg/dL (8.5-10.1); Carbon Dioxide 24.2 mmol/L (21.0-32.0); Chloride 101 mmol/L (98-107); Estimated GFR (African America >60 (>=60); Estimated GFR (Non-African Ame >60 (>=60); Glucose 78 mg/dL (74-106); Potassium 3.6 mmol/L (3.5-5.1); Sodium 137 mmol/L (136-145)
[2023-11-10 13:32] LABS: Influenza Virus A Antigen Negative; Influenza Virus B Antigen Negative
[2023-11-10 13:33] LABS: Internal Control Within Normal Limits
[2023-11-10 13:34] LABS: SARS-CoV-2 Ag POSITIVE (NEGATIVE)
[2023-11-10 14:18] VITALS: PULSE 81; O2SAT 100
== END 2023-11-10 14:19 | disposition home or self-care (01) ==
PROVIDERS: Emergency Provider Emergency Medicine Emergency Medical Services; PCP Family Medicine
DX: O98.511 Other viral diseases complicating pregnancy, first trimester (principal); U07.1 COVID-19; Z3A.09 9 weeks gestation of pregnancy; O99.331 Smoking (tobacco) complicating pregnancy, first trimester; F17.290 Nicotine dependence, other tobacco product, uncomplicated
CPT/HCPCS: 36415; 71045; 80048; 85025; 87804; 87811; 99285

== ENCOUNTER 2023-11-28 15:55 | Outpatient (OUT) | payer OTHER, SELFPAY ==
--- OUTSIDE RECORDS SUMMARY | 2023-11-28 15:59 | XMS_ITS | CCD ---
Author Organization [facility] Care Team Providers Care Peace Officer Name Role Phone Vicky Joe Unavailable WEST, DR SANON Admitting Unavailable KARASIK, DR SANON Attending Unavailable KARASIK, DR SANON Consulting Unavailable KARASIK, DR SANON Attending Unavailable KARASIK, DR SANON Consulting Unavailable KARASIK, DR SANON Admitting Unavailable CARVAJALAIDAN Attending Unavailable WEI, AIDAN Consulting Unavailable AIDAN CARVAJAL Admitting Unavailable YSABEL CABRAL Attending Unavailable JO ANN-NOSSEK, TERESA Alonzo Attending Unavailab le FIOREVONNE Attending Unavailable YSABEL CABRAL Attending Unavailable JO ANN-NOSSEK, TERESA M Attending Unavailab le CRICKET, YSABEL Dickson Attending Unavailable CRICKET, YSABEL Dickson Attending Unavailable AIDAN CARVAJAL R Referring Unavailable CARVAJALAIDAN Attending Unavailable CRICKET, YSABEL Dickson Attending Unavailable JO ANN-NOSSEK, TERESA Cheri Attending Unavailab le FIOR, EVONNE Attending Unavailable JO ANN-NOSSEK, TERESA M Attending Unavailab le JO ANN-NOSSEK, TERESA M Attending Unavailab le JO ANN-NOSSEK, TERESA M Attending Unavailab le JO ANN-NOSSEK, TERESA M Attending Unavailab Ysabel Hurtado MD Primary Care Provider [phone] Ale Zaldivar MD Unavailable Allergies Allergy Classification Reported Allergen(s) Allergy Type Date of Onset Reaction(s) Facility (1 source) Aspirin Drug Allergy shortness of breath [facility] Other (3 sources) Diclofenac Drug Allergy 07-05-19 Unknown [facility] Other (3 sources) Ibuprofen Drug Allergy 07-05-19 23 Unknown [facility] Other (3 sources) Naproxen Drug Allergy 07-05-19 23 Unknown [facility] Other (3 sources) NSAIDs Drug allergy 07-05-19 Unknown [facility] Other (1 source) Aspirin Drug Allergy 02-26-18 90 [facility] (1 source) cyclobenzaprine Drug Allergy 01-10-20 15 [facility] (1 source) Diclofenac Drug Allergy 01-10-20 15 [facility] (1 source) Ibuprofen Drug Allergy 08-04-19 16 [facility] (1 source) NSAIDs Drug allergy (disorder) 01-02-20 14 [facility] (2 sources) Aluminum aspirin Drug Allergy 07-05-19 23 [facility] (2 sources) Amitriptyline Drug Allergy 03-22-19 18 [facility] (2 sources) cyclobenzaprine Drug Allergy 01-24-20 16 [facility] (2 sources) Lamotrigine Allergy to substance 07-05-19 23 [facility] (2 sources) meloxicam Drug Allergy 07-05-19 23 Unknown [facility] Medications Current Medications Medication Drug Class(es) Dates Sig (Normalized) Sig (Original) acetaminophen 325 mg / butalbital 50 mg / caffeine 40 mg oral tablet (2 sources) Barbiturate, Central Nervous System Stimulant, Methylxanthine Start: 09-24-2023 butalbital-acetam inophen-caffeine 50-325-40 MG tablet Indications: 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) TAKE 1 TABLET BY MOUTH AT ONSET OF HEADACHE *MAY REPEAT IN 2 HRS NEEDED *MAX 2DAYS/WEEK 30 DAYS 20 tablet 1 09/24/2023 Active [id number] 200 actuat albuterol 0.09 mg/actuat metered dose inhaler (4 sources) beta2-Adrenergic Agonist Start: 09-25-2023 End: 09-24-2024 take 2 puff(s) by inhalation every four hours for wheezing albuterol HFA (ProAir HFA) 90 mcg/act inhaler Indications: Acute bronchitis, unspecified organism Inhale 2 puffs every 4 (four) hours if needed for wheezing 18 g 11 09/25/2023 09/24/2024 Active albuterol HFA (P roAir HFA) 90 mcg/act inhaler Active Albuterol Sulfate 108 (90 Base) MCG/ACT (1 source) take 1 puff(s) by inhalation every four hours as needed Albuterol Sulfate 108 (90 Base) MCG/ACT 1 puff as needed Inhalation every 4 hrs Active Benzoyl Peroxide / Clindamycin (1 source) Lincosamide Antibacterial Duac 1.2-5 % Externally Active onabotulinumtoxina 200 unt injection (2 sources) Acetylcholine Release Inhibitor onabotulinumtoxinA (Botox) 200 units injection Active calcium carbonate 1500 mg / cholecalciferol 200 unt oral tablet (1 source) Vitamin D take 1 tablet by mouth every twenty-four hours Calcium + D 600-200 MG-UNIT 1 tablet with food Orally Once a day Active cholecalciferol 0.025 mg oral tablet (2 sources) Vitamin D Start : 10-25 take 1 tablet by mouth once daily D3-1000 25 MCG (1000 UT) tablet TAKE 1 TABLET BY MOUTH EVERY DAY FOR 90 DAYS 10/25/2021 Active clonazePAM 0.5 mg disintegrating oral tablet [...] 1 tablet by mouth every twenty-four hours 1.5-30 MG-MCG 1 tablet Orally Once a day Active Fish Oils (1 source) take 1 capsule by mouth once daily Fish Oil 1000 MG 1 capsule Orally Once a day Active fluticasone propionate 0.05 mg/actuat metered dose nasal spray (3 sources) Corticosteroid take 1 spray(s) nasal route in the morning fluticasone (Flonase) 50 MCG/ACT nasal spray Administer 1 spray into affected nostril(s) in the morning. Active take 1 spray(s) nasal route once daily Flonase 50 MCG/DOSE 1 spray in each nostril Nasally Once a day Active lidocaine 0.05 mg/mg topical ointment (1 source) Antiarrhythmic, Amide Local Anesthetic Lidocaine 5 % 1 application to affected area as needed Externally Three times a day Active Magnesium (2 sources) Start: 11-15-19 End: 12-15-19 24 take 1 tablet by mouth once daily magnesium 200 MG tablet Indications: Other migraine without status migrainosus, not intractable (CMS/HCC) Take 1 tablet (200 mg) by mouth Daily 30 tablet 11/15/2023 12/15/2023 Active montelukast 5 mg chewable tablet (1 [...] tablet (1 source) Proton Pump Inhibitor Start: 08-03-19 17 take 1 tablet by mouth every twenty-four hours Pantoprazole Sodium 40 mg 1 tablet Orally Once a day for 30 days Jul, Active promethazine hydrochloride 12.5 mg oral tablet (4 sources) Phenothiazine Start: 10-22-19 24 take 1 tablet by mouth every six hours as needed for nausea and nausea, then take 1 tablet by mouth every six hours as needed for nausea and nausea promethazine (Phenergan) 12.5 MG tablet Indications: Nausea and vomiting, unspecified vomiting type Take 1 tablet (12.5 mg) by mouth every 6 (six) hours if needed for nausea or vomiting for up to 90 doses Take 1 tablet by mouth every 6 hours as needed for nausea. 30 tablet 2 10/22/2023 Active Promethazine HCl 25 MG 1/2 -1 TABLET Orally THREE TIMES A DAY Active Promethazine HCl Active QUEtiapine 25 mg oral tablet (1 source) Atypical Antipsychotic take 1 tablet by mouth every twenty-four hours SEROquel 25 MG 1 tablet Orally Once a day Active sertraline 50 mg oral tablet (4 sources) Serotonin Reuptake Inhibitor Start: 024 End: 025 take 1 tablet by mouth once daily sertraline (Zoloft) 50 MG tablet Indications: Generalized anxiety disorder (CMS/HCC) Take 1 tablet (50 mg) by mouth Daily 30 tablet 1 11/27/2023 11/26/2024 Active sulfamethoxazole 800 mg / trimethoprim 160 mg oral tablet (1 source) Dihydrofolate Reductase Inhibitor Antibacterial, Sulfonamide Antimicrobial take 1 tablet by mouth every twenty-four hours Bactrim DS 800-160 MG 1 tablet Orally DAILY Active tiZANidine 4 mg oral tablet (3 sources) Central alpha-2 Adrenergic Agonist tiZANidine (Zanaflex) 4 MG tablet 1 (one) time each day at the same time. Active take 1 capsule by mouth every ei ght hours Zanaflex 4 MG 1 capsule as needed Orally Three times a day Active tretinoin 0.5 mg/ml topical cream (1 source) Retinoid Tretinoin 0.05 % 1 application to affected area in the evening to face Externally Once a day Active triamcinolone acetonide 1 mg/ml topical cream (1 source) Corticosteroid Triamcinolone Ac etonide 0.1 % 1 application to affected area Externally Twice a day Active vitamin b12 2.5 mg oral lozenge (3 sources) Vitamin B12 Start: 07-26-2021 Cyanocobalamin 2500 MCG sublingual tablet 1 (one) time each day at the same time. 07/26/2021 Active Vitamin B12 INJE CTION MONTHLY Active zonisamide 100 mg oral capsule (1 source) Anti-epileptic Agent take 1 capsule by mouth every twenty-four hours Zonisamide 100 MG 1 capsule Orally Once a day Active Problems Active Problems Problem Classification Problem Date Documented Da te Episodic/Chronic Anxiety disorders (8 sources) Generalized anxiety disorder; Translations: [Generalized anxiety disorder] Onset: 0 11-27-2023 Chronic Asthma (4 sources) Asthma; Translations: [Unspecified asthma, uncomplicated] Onset: 5 12-28-2022 Chronic Attention-deficit, conduct, and disruptive behavior disorders (4 sources) Attention deficit hyperactivity disorder, combined type; Translations: [Attention-deficit hyperactivity disorder, combined type] Onset: 3 11-27-2023 Chronic Esophageal disorders (1 source) Gastroesophageal reflux disease; Translations: [Gastro-esophageal reflux disease without esophagitis] Chronic Gastritis and duodenitis (2 sources) Chronic gastritis; Translations: [Unspecified chronic gastritis without bleeding] Onset: 3 12-28-2022 Chronic Headache; including migraine (8 sources) Migraine without aura, not refractory ; Translations: [Migraine without aura, not intractable, without status migrainosus] Onset: 8 12-28-2022 Chronic Immunizations and screening for infectious disease (2 sources) Encounter for immunization; Translations: [Encounter for screening for human papillomavirus (HPV)] Onset: 2 Resolved: 2 Episodic Malaise and fatigue (2 sources) Chronic fatigue syndrome; Translations: [Chronic fatigue syndrome] Onset: 7 12-28-2022 Chronic Mood disorders (2 sources) Episodic mood disorder; Translations: [Unspecified mood [affective] disorder] Onset: 3 07-04-2022 Chronic Nutritional deficiencies (2 sources) Vitamin D deficiency; Translations: [Vitamin D deficiency, unspecified] Onset: 3 12-28-2022 Chronic Osteoarthritis (4 sources) Localized, primary osteoarthritis of the ankle and/or foot; Translations: [Primary osteoarthritis, unspecified ankle and foot] Onset: 0 12-28-2022 Chronic Other acquired deformities (2 sources) Acquired scoliosis; Translations: [Scoliosis, unspecified] Onset: 7 12-28-2022 Chronic Other gastrointestinal disorders (2 sources) Irritable bowel syndrome; Translations: [Irritable bowel syndrome without diarrhea] Onset: 7 12-28-2022 Chronic Other screening for suspected conditions (not mental disorders or infectious disease) (4 sources) Encounter for screening for malignant neoplasm of cervix; Translations: [ENC SCREENING MALIG NEOPLASM CERV] Onset: 2 Episodic Other upper respiratory disease (2 sources) Allergic rhinitis; Translations: [Allergic rhinitis, unspecified] Onset: 0 12-28-2022 Chronic Unclassified (2 sources) CONTACT W/AND (SUSP) EXPOS COVID-19; Translations: [CONTACT W/AND (SUSP) EXPOS COVID-19] Onset: 2 Viral infection (1 source) COVID-19; Translations: [COVID-19] Onset: 2 Past or Other Problems Problem Classification Problem Date Documented Da te Episodic/Chronic Abdominal pain (2 sources) Epigastric pain; Translations: [Epigastric pain] Episodic Headache; including migraine (2 sources) Headache; Translations: [Headache] Onset: 06-28-2023 06-28-2023 Episodic Mood disorders (2 sources) Mood disorders Onset: 06-11-2023 06-11-2023 Nausea and vomiting (3 sources) Nausea and vomiting; Translations: [Nausea with vomiting, unspecified] Onset: 06-28-2023 06-28-2023 Episodic Other connective tissue disease (2 sources) Tenosynovitis of foot; Translations: [Tenosynovitis of foot] Onset: 06-28-2023 06-28-2023 Episodic Other connective tissue disease (2 sources) Pain in limb; Translations: [Pain in unspecified limb] Onset: 06-28-2023 06-28-2023 Episodic Other female genital disorders (4 sources) Other specified noninflammatory disorders of vagina; Translations: [OTH SPEC NONINFLAMMATORY D/O VAGINA] Onset: 12-10-2020 Episodic Other gastrointestinal disorders (1 source) Constipation alternates with diarrhea; Translations: [Other specified symptoms and signs involving the digestive system and abdomen] Episodic Other gastrointestinal disorders (1 source) Diarrhea; Translations: [Diarrhea, unspecified] Episodic Residual codes; unclassified (2 sources) Inadequate sleep hygiene; Translations: [Inadequate sleep hygiene] Onset: 06-28-2023 06-28-2023 Episodic Residual codes; unclassified (2 sources) Disturbance in sleep behavior; Translations: [Sleep disorder, unspecified] Onset: 06-28-2023 06-28-2023 Episodic Residual codes; unclassified (2 sources) Insomnia; Translations: [Insomnia, unspecified] Onset: 06-28-2023 06-28-2023 Episodic Residual codes; unclassified (2 sources) Other problems related to lifestyle; Translations: [Other problems related to lifestyle] Onset: 06-28-2023 06-28-2023 Episodic Unclassified (1 source) CONTACT W/AND (SUSP) [...] [Mass/Vol] 8.9 mg/dL Normal (8.6 - 10.6) [facility] Comment on above: Performed By: #### C BC/2A, ESRCRP, CCP, HBC-M, HBSAG, HCV, CA, MG, RHF, URCA #### [facility] [address] [facility], [address] CBC, ALB, ALT, AST, ALK AND CREAon 12-18-2022 Albumin [Mass/Vol] 5.0 g/dL Normal (3.5 - 5.0) [facility] Comment on above: Order Comment: FACIL ITY: [facility] [id number] Performed By: #### C BC/2A, ESRCRP, CCP, HBC-M, HBSAG, HCV, CA, MG, RHF, URCA #### [facility] [address] [facility], [address] ALK PHOS 60 U/L Normal (38 - 126) [facility] Comment on above: Order Comment: FACIL ITY: [facility] [id number] Performed By: #### C BC/2A, ESRCRP, CCP, HBC-M, HBSAG, HCV, CA, MG, RHF, URCA #### [facility] [address] [facility], [address] ALT [Catalytic activity/Vol] 34 U/L Normal (1 - 35) [facility] Comment on above: Order Comment: FACIL ITY: [facility] [id number] Performed By: #### C BC/2A, ESRCRP, CCP, HBC-M, HBSAG, HCV, CA, MG, RHF, URCA #### [facility] [address] [facility], [address] AST [Catalytic activity/Vol] 34 U/L Normal (15 - 46) [facility] Comment on above: Order Comment: FACIL ITY: [facility] [id number] Performed By: #### C BC/2A, ESRCRP, CCP, HBC-M, HBSAG, HCV, CA, MG, RHF, URCA #### [facility] [address] [facility], [address] Creatinine [Mass/Vol] 0.61 mg/dL Normal (0.52 - 1.04) [facility] Comment on above: Order Comment: FACIL ITY: [facility] [id number] Performed By: #### C BC/2A, ESRCRP, CCP, HBC-M, HBSAG, HCV, CA, MG, RHF, URCA #### [facility] [address] [facility], [address] GFR- AMER 135.1 ML/M1.7 Normal (60.0 - 140.1) [facility] Comment on above: Order Comment: FACIL ITY: [facility] [id number] Performed By: #### C BC/2A, ESRCRP, CCP, HBC-M, HBSAG, HCV, CA, MG, RHF, URCA #### [facility] [address] [facility], [address] GFR-NON AFRIC-AMER 111.6 ML/M1.7 Normal (60.0 - 115.8) [facility] Comment on above: Order Comment: FACIL ITY: [facility] [id number] Performed By: #### C BC/2A, ESRCRP, CCP, HBC-M, HBSAG, HCV, CA, MG, RHF, URCA #### [facility] [address] [facility], [address] Hematocrit (Bld) [Volume fraction] 41.5 % Normal (37.0 - 47.0) [facility] Comment on above: Order Comment: FACIL ITY: [facility] [id number] Performed By: #### C BC/2A, ESRCRP, CCP, HBC-M, HBSAG, HCV, CA, MG, RHF, URCA #### [facility] [address] [facility], [id number] Hemoglobin (Bld) [Mass/Vol] 13.5 g/dL Normal (12.0 - 16.0) [facility] Comment on above: Order Comment: FACIL ITY: [facility] [id number] Performed By: #### C BC/2A, ESRCRP, CCP, HBC-M, HBSAG, HCV, CA, MG, RHF, URCA #### [facility] [address] [facility], [id number] MCH (RBC) [Entitic mass] 28.7 pg Normal (27.0 - 33.0) [facility] Comment on above: Order Comment: FACIL ITY: [facility] [id number] Performed By: #### C BC/2A, ESRCRP, CCP, HBC-M, HBSAG, HCV, CA, MG, RHF, URCA #### [facility] [address] [facility], [id number] MCHC (RBC) [Mass/Vol] 32.5 g/dL Normal (30.0 - 37.0) [facility] Comment on above: Order Comment: FACIL ITY: [facility] [id number] Performed By: #### C BC/2A, ESRCRP, CCP, HBC-M, HBSAG, HCV, CA, MG, RHF, URCA #### [facility] [address] [facility], [address] MCV (RBC) [Entitic vol] 88.1 fL Normal (81.0 - 99.0) [facility] Comment on above: Order Comment: FACIL ITY: [facility] [id number] Performed By: #### C BC/2A, ESRCRP, CCP, HBC-M, HBSAG, HCV, CA, MG, RHF, URCA #### [facility] [address] [facility], [address] PLT 282 x10^3ul Normal (130 - 400) [facility] Comment on above: Order Comment: FACIL ITY: [facility] [id number] Performed By: #### C BC/2A, ESRCRP, CCP, HBC-M, HBSAG, HCV, CA, MG, RHF, URCA #### [facility] [address] [facility], [address] RBC 4.71 x10^6ul Normal (4.20 - 5.40) [facility] in Comment on above: Order Comment: FACIL ITY: [facility] [id number] Performed By: #### C BC/2A, ESRCRP, CCP, HBC-M, HBSAG, HCV, CA, MG, RHF, URCA #### [facility] [address] [facility], [address] WBC 6.47 x10^3ul Normal (3.80 - 10.60) [facility] Comment on above: Order Comment: FACIL ITY: [facility] [id number] Performed By: #### C BC/2A, ESRCRP, CCP, HBC-M, HBSAG, HCV, CA, MG, RHF, URCA #### [facility] [address] [facility], [address] HEP B CORE AB, IGMon 23-2 023 HEPATITIS B CORE ANTIBODY, IGM Negative Normal (NEG - NEG) [facility] Comment on above: Performed By: #### C BC/2A, ESRCRP, CCP, HBC-M, HBSAG, HCV, CA, MG, RHF, URCA #### [facility] [address] [facility], [address] HEP B HERACLIO AGon 12-18-2022 HEP B HERACLIO AG Negative Normal (NEG - NEG) [facility] Comment on above: Performed By: #### C BC/2A, ESRCRP, CCP, HBC-M, HBSAG, HCV, CA, MG, RHF, URCA #### [facility] [address] [facility], [address] HEP C ANTIBODYon 12-18-2022 HEPATITIS C ANTIBODY Negative Normal (NEG - NEG) [facility] Comment on above: Performed By: #### C BC/2A, ESRCRP, CCP, HBC-M, HBSAG, HCV, CA, MG, RHF, URCA #### [facility] [address] [facility], [address] MAGNESIUMon 12-18-2022 Magnesium [Mass/Vol] 2.0 mg/dL Normal (1.6 - 2.3) [facility] Comment on above: Performed By: #### C BC/2A, ESRCRP, CCP, HBC-M, HBSAG, HCV, CA, MG, RHF, URCA #### [facility] [address] [facility], [id number] RF FACTORon 12-18-2022 RF FACTOR <9 Normal (0 - 12) [facility] Comment on above: Result Comment: RF F ACTOR = LESS THAN 9 IU/ML RF FACTOR MIN. DETECTION = 9 IU/ML. Performed By: #### C BC/2A, ESRCRP, CCP, HBC-M, HBSAG, HCV, CA, MG, RHF, URCA #### [facility] [address] [facility], [address] SED RATE - CRPon 12-18-2022 CRP EXTENDED RANGE 1.40 MG/L Normal (0.00 - 3.20) [facility] Comment on above: Performed By: #### C BC/2A, ESRCRP, CCP, HBC-M, HBSAG, HCV, CA, MG, RHF, URCA #### [facility] [address] [facility], [address] SED RATE WEST. 5 MM/HR Normal (0 - 25) [facility] Comment on above: Performed By: #### C BC/2A, ESRCRP, CCP, HBC-M, HBSAG, HCV, CA, MG, RHF, URCA #### [facility] [address] [facility], [address] URIC ACIDon 12-18-2022 Urate [Mass/Vol] 4.2 mg/dL Normal (2.5 - 6.2) [facility] Comment on above: Performed By: #### C BC/2A, ESRCRP, CCP, HBC-M, HBSAG, HCV, CA, MG, RHF, URCA #### [facility] [address] [facility], [address] PAP ACOG PANEL 2: 30 to 65on 11-16-2021 . . Normal [facility] Comment on above: Result Comment: Perf ormed at: WB Performed By: #### [id number] #### [facility] [address] [address] [address] Sierra Almonte Age Gdln ACOG Testing -67 Normal [facility] Comment on above: Performed By: #### [id number] #### [facility] [address] [address] [address] Sierra Almonte DIAGNOSIS: Comment Normal [facility] Comment on above: Result Comment: NEGA TIVE FOR INTRAEPITHELIAL LESION OR MALIGNANCY. Performed at: WB Performed By: #### [id number] #### [facility] [address], [place] [address] Dr. Sierra Almonte HPV Aptima Negative Normal Negative [facility] Comment on above: Result Comment: This nucleic acid amplification test detects fourteen high-risk HPV types (16,18,31,33,35,39,45,51,52,56,58,59,66,68) without differentiation. Performed at: =G Performed By: #### [id number] #### [facility] [address] [place] [address] Dr. Sierra Almonte Methodology: Comment Normal [facility] Comment on above: Result Comment: This liquid based ThinPrep(R) pap test was screened with the use of an image guided system. Performed at: WB Performed By: #### [id number] #### [facility] [address] [place] [address] Dr. Sierra Almonte Note: Comment Normal [facility] Comment on above: Result Comment: The Pap smear is a screening test designed to aid in the detection of premalignant and malignant conditions of the uterine cervix. It is not a diagnostic procedure and should not be used as the sole means of detecting cervical cancer. Both false-positive and false-negative reports do occur. . Performed at: WB Performed By: #### [id number] #### [facility] [address] [place] [address] Dr. Sierra Almonte Performed by: Comment Normal [facility] Comment on above: Result Comment: Alison Sapp, Paraffin Plant Sweater Operator (ASCP) Performed at: WB Performed By: #### [id number] #### [facility] [address] [place] [address] Dr. Sirera Almonte Specimen adequacy: Comment Normal [facility] Comment on above: Result Comment: Sati sfactory for evaluation. Endocervical and/or squamous metaplastic cells (endocervical component) are present. Performed at: WB Performed By: #### [id number] #### [facility] [address] [place] [address] Dr. Sierra Almonte Thyroidon 07-14-2021 [place] Thyroid HISTORY: Hyperthyroidism FINDINGS: [...] by Alexei Smith on 07/14/2021 1000 Normal [facility] Complete Blood Count with Au to Diffon 07-12-2021 Basophils (Bld) [#/Vol] 0.02 10*3/uL Normal 0.00-0.20 [facility] Comment on above: Performed By: #### C BCAD, RF, VITD, ESR, TSH reflex FT4, CMP, FT4 #### [facility] [address], [place] [id number] Basophils/100 WBC (Bld) 0.3 % Normal [facility] Specialist Comment on above: Performed By: #### C BCAD, RF, VITD, ESR, TSH reflex FT4, CMP, FT4 #### [facility] [address], [place] [id number] Eosinophils (Bld) [#/Vol] 0.08 10*3/uL Normal 0.02-0.50 [facility] Specialist Comment on above: Performed By: #### C BCAD, RF, VITD, ESR, TSH reflex FT4, CMP, FT4 #### [facility] [address], [place] [id number] Eosinophils/100 WBC (Bld) 1.2 % Normal [facility] Specialist Comment on above: Performed By: #### C BCAD, RF, VITD, ESR, TSH reflex FT4, CMP, FT4 #### [facility] [address], [place] [id number] Erythrocyte distribution width (RBC) [Ratio] 13.8 % Normal 11.0-15.0 [facility] Specialist Comment on above: Performed By: #### C BCAD, RF, VITD, ESR, TSH reflex FT4, CMP, FT4 #### [facility] [address], [place] [id number] Hematocrit (Bld) [Volume fraction] 39.6 % Normal 35.0-47.0 [facility] Specialist Comment on above: Performed By: #### C BCAD, RF, VITD, ESR, TSH reflex FT4, CMP, FT4 #### [facility] [address], [place] [id number] Hemoglobin (Bld) [Mass/Vol] 12.9 g/dL Normal 11.6-15.5 [facility] Specialist Comment on above: Performed By: #### C BCAD, RF, VITD, ESR, TSH reflex FT4, CMP, FT4 #### [facility] [address], [place] [id number] Lymphocytes (Bld) [#/Vol] 1.3 10*3/uL Normal 0.9-3.9 [facility] Specialist Comment on above: Performed By: #### C BCAD, RF, VITD, ESR, TSH reflex FT4, CMP, FT4 #### [facility] [address], [place] [id number] Lymphocytes/100 WBC (Bld) 20.3 % Normal [facility] Specialist Comment on above: Performed By: #### C BCAD, RF, VITD, ESR, TSH reflex FT4, CMP, FT4 #### [facility] [address], [place] [id number] MCH (RBC) [Entitic mass] 28.3 pg Normal 27.0-33.0 [facility] Comment on above: Performed By: #### C BCAD, RF, VITD, ESR, TSH reflex FT4, CMP, FT4 #### [facility] [address], [place] [id number] MCHC (RBC) [Mass/Vol] 32.6 g/dL Normal 32.0-36.0 [facility] Comment on above: Performed By: #### C BCAD, RF, VITD, ESR, TSH reflex FT4, CMP, FT4 #### [facility] [address], [place] [id number] MCV (RBC) [Entitic vol] 87 fL Normal 80-100 [facility] Veterinary Surgery Technician Comment on above: Performed By: #### C BCAD, RF, VITD, ESR, TSH reflex FT4, CMP, FT4 #### [facility] [address], [place] [id number] Monocytes (Bld) [#/Vol] 0.4 10*3/uL Normal 0.2-0.9 [facility] Specialist Comment on above: Performed By: #### C BCAD, RF, VITD, ESR, TSH reflex FT4, CMP, FT4 #### [facility] [address], [place] [id number] Monocytes/100 WBC (Bld) 5.8 % Normal [facility] Veterinary Surgery Technician Comment on above: Performed By: #### C BCAD, RF, VITD, ESR, TSH reflex FT4, CMP, FT4 #### [facility] [address], [place] [id number] Neutrophils (Bld) [#/Vol] 4.7 10*3/uL Normal 1.5-7.8 [facility] Specialist Comment on above: Performed By: #### C BCAD, RF, VITD, ESR, TSH reflex FT4, CMP, FT4 #### [facility] [address], [place] [id number] Neutrophils/100 WBC (Bld) 72.1 % Normal [facility] Veterinary Surgery Technician Comment on above: Performed By: #### C BCAD, RF, VITD, ESR, TSH reflex FT4, CMP, FT4 #### [facility] [address], [place] [id number] Platelet mean volume (Bld) [Entitic vol] 11.00 fL Normal 7.50-12.50 [facility] Specialist Comment on above: Performed By: #### C BCAD, RF, VITD, ESR, TSH reflex FT4, CMP, FT4 #### [facility] [address], [place] [id number] Platelets (Bld) [#/Vol] 271 10*3/uL Normal 140-400 [facility] Veterinary Surgery Technician Comment on above: Performed By: #### C BCAD, RF, VITD, ESR, TSH reflex FT4, CMP, FT4 #### [facility] [address], [place] [id number] RBC (Bld) [#/Vol] 4.56 10*6/uL Normal 3.90-5.20 [facility] Specialist Comment on above: Performed By: #### C BCAD, RF, VITD, ESR, TSH reflex FT4, CMP, FT4 #### [facility] [address], [place] [id number] RDW-SD 43.5 fL Normal 37.0-50.0 [facility] Veterinary Surgery Technician Comment on above: Performed By: #### C BCAD, RF, VITD, ESR, TSH reflex FT4, CMP, FT4 #### [facility] [address], [place] [id number] WBC (Bld) [#/Vol] 6.5 10*3/uL Normal 3.8-11.0 [facility] Veterinary Surgery Technician Comment on above: Performed By: #### C BCAD, RF, VITD, ESR, TSH reflex FT4, CMP, FT4 #### [facility] [address], [place] [id number] Comprehensive Metabolic Pane thuy 07-12-2021 Albumin [Mass/Vol] 4.9 g/dL Normal 3.6-5.1 [facility] Veterinary Surgery Technician Comment on above: Performed By: #### C BCAD, RF, VITD, ESR, TSH reflex FT4, CMP, FT4 #### [facility] [address], [place] [id number] Albumin/Globulin [Mass ratio] 2.2 {ratio} Normal 1.0-2.5 [place] Veterinary Surgery Technician Comment on above: Performed By: #### C BCAD, RF, VITD, ESR, TSH reflex FT4, CMP, FT4 #### [facility] [address], [place] [id number] ALP [Catalytic activity/Vol] 63 U/L Normal 35-119 [facility] Specialist Comment on above: Performed By: #### C BCAD, RF, VITD, ESR, TSH reflex FT4, CMP, FT4 #### [facility] [address], [place] [id number] ALT [Catalytic activity/Vol] 26 U/L Normal 6-33 [facility] Comment on above: Result Comment: 01/26 Female reference range changed. Performed By: #### C BCAD, RF, VITD, ESR, TSH reflex FT4, CMP, FT4 #### [facility] [address], [place] [id number] Anion gap [Moles/Vol] 18 mmol/L Normal 12-20 [facility] Comment on above: Result Comment: Effe ctive 03/03/2019 reference range changed. Performed By: #### C BCAD, RF, VITD, ESR, TSH reflex FT4, CMP, FT4 #### [facility] [address], [place] [id number] AST [Catalytic activity/Vol] 26 U/L Normal 9-34 [facility] Specialist Comment on above: Performed By: #### C BCAD, RF, VITD, ESR, TSH reflex FT4, CMP, FT4 #### [facility] [address], [place] [id number] BUN/CREA 10 Ratio Normal 6-22 [facility] Specialist Comment on above: Performed By: #### C BCAD, RF, VITD, ESR, TSH reflex FT4, CMP, FT4 #### [facility] [address], [place] [id number] Calcium [Mass/Vol] 10.0 mg/dL Normal 8.6-10.2 [facility] Comment on above: Performed By: #### C BCAD, RF, VITD, ESR, TSH reflex FT4, CMP, FT4 #### [facility] [address], [place] [id number] Chloride [Moles/Vol] 105 mmol/L Normal 98-107 [facility] Comment on above: Performed By: #### C BCAD, RF, VITD, ESR, TSH reflex FT4, CMP, FT4 #### [facility] [address], [place] [id number] CO2 [Moles/Vol] 21 mmol/L Normal 20-31 [facility] Comment on above: Performed By: #### C BCAD, RF, VITD, ESR, TSH reflex FT4, CMP, FT4 #### [facility] [address], [place] [id number] Creatinine [Mass/Vol] 0.6 mg/dL Normal 0.6-1.4 [facility] Comment on above: Performed By: #### C BCAD, RF, VITD, ESR, TSH reflex FT4, CMP, FT4 #### [facility] [address], [place] [id number] eGFRAA 132 mL/min/1.73m2 Normal >60 [facility] Comment on above: Performed By: #### C BCAD, RF, VITD, ESR, TSH reflex FT4, CMP, FT4 #### [facility] [address], [place] [id number] eGFRNAA 109 mL/min/1.73m2 Normal >60 [facility] Comment on above: Performed By: #### C BCAD, RF, VITD, ESR, TSH reflex FT4, CMP, FT4 #### [facility] [address], [place] [id number] Globulin (S) [Mass/Vol] 2.2 g/dL Normal 1.9-3.7 [facility] Comment on above: Performed By: #### C BCAD, RF, VITD, ESR, TSH reflex FT4, CMP, FT4 #### [facility] [address], [place] [id number] Glucose [Mass/Vol] 86 mg/dL Normal 65-99 [facility] Comment on above: Result Comment: For FASTING Glucose --- ADA reference ranges: Normal 65-99 mg/dl Prediabetes 100-125 Diabetes >/= 126 Performed By: #### C BCAD, RF, VITD, ESR, TSH reflex FT4, CMP, FT4 #### [facility] [address], [place] [id number] Potassium [Moles/Vol] 4.1 mmol/L Normal 3.5-5.5 [facility] Veterinary Surgery Technician Comment on above: Performed By: #### C BCAD, RF, VITD, ESR, TSH reflex FT4, CMP, FT4 #### [facility] [address], [place] [id number] Protein [Mass/Vol] 7.1 g/dL Normal 6.1-8.1 [facility] [place] [facility] Surgery Technician Comment on above: Performed By: #### C BCAD, RF, VITD, ESR, TSH reflex FT4, CMP, FT4 #### [facility] [address], [place] [id number] Sodium [Moles/Vol] 140 mmol/L Normal 135-146 [facility] [place] [facility] Surgery Technician Comment on above: Performed By: #### C BCAD, RF, VITD, ESR, TSH reflex FT4, CMP, FT4 #### [facility] [address], [place] [id number] TBIL <0.3 Normal [facility] Veterinary Surgery Technician Comment on above: Performed By: #### C BCAD, RF, VITD, ESR, TSH reflex FT4, CMP, FT4 #### [facility] [address], [place] [id number] Urea nitrogen [Mass/Vol] 7 mg/dL Normal 7-25 [facility] Veterinary Surgery Technician Comment on above: Performed By: #### C BCAD, RF, VITD, ESR, TSH reflex FT4, CMP, FT4 #### [facility] [address], [place] [id number] Free T4on 07-12-2021 Free T4 [Mass/Vol] 0.93 ng/dL Normal 0.80-1.80 [facility] [place] [facility] Technician Comment on above: Performed By: #### C BCAD, RF, VITD, ESR, TSH reflex FT4, CMP, FT4 #### [facility] [address], [place] [id number] Q - PASQUALE SCREEN IFA W/RFL TIT ER AND PATTERNon 07-12-2021 PASQUALE SCREEN, IFA Negative Normal NEGATIVE [facility] Specialist Comment on above: Order Comment: [facility] performed at: [facility], [employer] [facility], [address], [address] [facility], [place], [address], Coronary Care Unit Nurse: Leonard Turpin MD [facility] Date/Time: [facility] [...] AC-0: Negative International Consensus on PASQUALE Patterns (https://doi.org/10.1515/[email or web address]) For additional information, please refer to [email or web address] (This link is being provided for informational/ educational purposes only.) Performed By: #### 2 49 #### [facility] Default [address] [place] [address] RBC Sedimentation Rateon ESR (Bld) [Velocity] 8.00 mm/h Normal 0.00-20.00 [facility] Specialist Comment on above: Performed By: #### C BCAD, RF, VITD, ESR, TSH reflex FT4, CMP, FT4 #### [facility] [address] [place], [place] [id number] Rheumatoid Factoron 07-13-19 22 RF <10 Normal [facility] Specialist Comment on above: Performed By: #### C BCAD, RF, VITD, ESR, TSH reflex FT4, CMP, FT4 #### [facility] [address] [place], [place] [id number] TSH w/ Reflex to Free T4on 0 5-17-2022 TSH 0.321 uIU/mL Low 0.400-4.500 [facility] Veterinary Surgery Technician Comment on above: Performed By: #### C BCAD, RF, VITD, ESR, TSH reflex FT4, CMP, FT4 #### [facility] [address], [place] [id number] Vitamin D 25-OHon 07-12-2021 VIT D 25 OH 19 ng/ml Low >29 [facility] Veterinary Surgery Technician Comment on above: Result Comment: Ade min D Status Deficiency <20 ng/mL Insufficiency 20-29 ng/mL Optimal 30-100 ng/mL Possible Toxicity >=150 ng/mL Performed By: #### C BCAD, RF, VITD, ESR, TSH reflex FT4, CMP, FT4 #### [facility] [address], [place] [id number] Comprehensive Metabolic Empo n 04-11-2021 Albumin [Mass/Vol] 4.6 g/dL Normal 3.2-5.5 [facility] Comment on above: Performed By: #### E BS CMP, EBS LIPID #### [facility] [address] [id number] [facility] Albumin/Globulin [Mass ratio] 1.9 {ratio} Normal [facility] Comment on above: Performed By: #### E BS CMP, EBS LIPID #### [facility] [address] [place] [address] [place] ALP [Catalytic activity/Vol] 43 U/L Normal 32-92 [facility] Comment on above: Performed By: #### E BS CMP, EBS LIPID #### [facility] [address] [place] [address] [place] ALT [Catalytic activity/Vol] 17 U/L Normal 10-60 [facility] Comment on above: Performed By: #### E BS CMP, EBS LIPID #### [facility] [address] [place] [address] [place] AST [Catalytic activity/Vol] 20 U/L Normal 10-42 [facility] Comment on above: Performed By: #### E BS CMP, EBS LIPID #### [facility] [address] [place] [address] [place] Bilirubin [Mass/Vol] 1.1 mg/dL Normal 0.3-1.2 [facility] Comment on above: Performed By: #### E BS CMP, EBS LIPID #### [facility] [address] Calcium [Mass/Vol] 9.6 mg/dL Normal 8.2-10.2 [facility] Comment on above: Performed By: #### E BS CMP, EBS LIPID #### [facility] [address] Chloride [Moles/Vol] 102 mmol/L Normal 95-114 [facility] Comment on above: Performed By: #### E BS CMP, EBS LIPID #### [facility] [address] [place] [address] CO2 [Moles/Vol] 21.4 mmol/L Low 22.0-30.0 [facility] Comment on above: Performed By: #### E BS CMP, EBS LIPID #### [address] Creatinine [Mass/Vol] 0.71 mg/dL Normal 0.44-1.03 [facility] Comment on above: Performed By: #### E BS CMP, EBS LIPID #### [address] Estimated GFR ( Michelle > 60 Normal [facility] Comment on above: Result Comment: GFR estimated reference range: According to KDOQI guidelines, <60 ml/min/1.73m2 is sufficient to diagnose a patient with chronic kidney disease. Performed By: #### E BS CMP, EBS LIPID #### [facility] [address] [place] [address] Estimated GFR (Non- Am > 60 [facility] Comment on above: Performed By: #### E BS CMP, EBS LIPID #### [address] Globulin (S) [Mass/Vol] 2.4 g/dL Normal [facility] Comment on above: Performed By: #### E BS CMP, EBS LIPID #### [facility] [address] [place] [address] Glucose [Mass/Vol] 76 mg/dL Normal 70-100 [facility] Comment on above: Performed By: #### E BS CMP, EBS LIPID #### [facility] [address] Potassium [Moles/Vol] 3.3 mmol/L Low 3.5-5.1 [facility] Comment on above: Performed By: #### E BS CMP, EBS LIPID #### [facility] [address] Protein [Mass/Vol] 7.0 g/dL Normal 6.1-7.9 [facility] Comment on above: Performed By: #### E BS CMP, EBS LIPID #### [address] Sodium [Moles/Vol] 136 mmol/L Normal 136-146 [facility] Comment on above: Performed By: #### E BS CMP, EBS LIPID #### [facility] [address] [place] [address] Urea nitrogen [Mass/Vol] 5 mg/dL Low 9-23 [facility] Comment on above: Performed By: #### E BS CMP, EBS LIPID #### [facility] [address] [place] [address] Lipid Profileon 04-11-2021 Cholesterol [Mass/Vol] 189 mg/dL Normal 140-200 [facility] Comment on above: Result Comment: Chol less than 200 mg/dl low risk Chol 201-239 mg/dl borderline risk Chol 240 mg/dl and greater high risk Performed By: #### E BS CMP, EBS LIPID #### [facility] [address] [place] [address] Cholesterol in HDL [Mass/Vol] 69 mg/dL Normal 35-85 [facility] Comment on above: Result Comment: HDL CHOL ATP-III CLASSIFICATION Cardiovascular Risk HDL > or equal to 60 mg/dL LOW HDL < 40 mg/dL HIGH Performed By: #### E BS CMP, EBS LIPID #### [facility] [address] Cholesterol.total/ Cholesterol in HDL [Mass ratio] 2.7 {ratio} Normal <5.0 [facility] Comment on above: Result Comment: PERF ORMED BY: [place] [address] PATHOLOGIST OPERATIONS VICE PRESIDENT PAT PETERS M.D. Performed By: #### E BS CMP, EBS LIPID #### [address] LDL Cholesterol,Calcul ated 107 mg/dL High 0-100 [facility] Comment on above: Result Comment: LDL ATP III CLASSIFICATION LDL less than 100 mg/dL Optimal LDL 100-129 mg/dL Near or above optimal LDL 130-159 mg/dL Borderline high LDL 160-189 mg/dL High LDL greater than 189 mg/dL Very high Performed By: #### E BS CMP, EBS LIPID #### [address] Triglyceride w/Reflex 64 mg/dL Normal 35-149 [facility] Comment on above: Result Comment: TRIG ATP III CLASSIFICATION TRIG less than 150 mg/dL Normal TRIG 150-199 mg/dL Borderline high TRIG 200-500 mg/dL High TRIG greater than 500 mg/dL Very high Standard traceable to the Center for Disease Conrtrol and Prevention (CDC) test method. Performed By: #### E BS CMP, EBS LIPID #### [address] VLDL CHOLESTEROL 12 mg/dL Normal [facility] Comment on above: Performed By: #### E BS CMP, EBS LIPID #### [address] Covid-19 PCR (CVDTBH)on SARS-CoV-2 (COVID-19) RNA ERIC+probe Ql (Unsp spec) Detected Critically abnormal NOT DETECTED [facility] Comment on above: Result Comment: This test is not yet approved or cleared by the [place] FDA. When there are no FDA-approved or cleared tests available, and other criteria are met, FDA can make tests available under an emergency access mechanism called an Emergency Use Authorization (EUA). The EUA for this test is supported by the Senior Controls Technician of Health and Human Service's (HHS's) declaration [...] used). Performed By: #### C VDTBH #### [facility] [address] [place] [address] Dr. Sierra Almonte CHLAMYDIA/GONOCOCCUS ERIC (SW AB/URINE/PAPon 12-14-2020 Chlamydia trachomatis, ERIC Negative Normal Negative [facility] Comment on above: Performed By: #### C T/NGNA #### [facility] [address] [place] [address] Dr. Sierra Almonte Neisseria gonorrhoeae, ERIC Negative Normal Negative [facility] Comment on above: Performed By: #### C T/NGNA #### [facility] [address] [place] [address] Dr. Sierra Almonte VAGINITIS/VAGINOSIS DNA PROB Andrew 12-11-2020 Zaynab species Negative Normal Negative [facility] Comment on above: Performed By: #### V AGINT #### [facility] [address] [place] [address] Dr. Sierra Almonte Gardnerella vaginalis Positive Abnormal Negative [facility] Comment on above: Performed By: #### V AGINT #### [facility] [address] [place] [address] Dr. Sierra Almonte Trichomonas vaginalis Negative Normal Negative [facility] Comment on above: Performed By: #### V AGINT #### [facility] [address] [place] [address] Dr. Sierra Almonte Encounters Encounter Date Encounter Type Care Provider Facility Start: 11-27-2023 End: 11-27-2023 Office outpatient visit 15 minutes Teresa Lundy BOARDING KENNEL OR CATTERY OPERATOR-SITE ACQUISITION MANAGER Work Phone: [facility] Comment on above: Attention deficit hy peractivity disorder (ADHD), combined type ([facility]/HCC); Generalized anxiety disorder ([facility]) Start: 11-01-2023 End: 11-01-2023 ambulatory YSABEL CABRAL Not Available Start: 10-18-2023 End: 10-18-2023 ambulatory YSABEL CABRAL Not Available Start: 09-25-2023 End: 09-25-2023 ambulatory YSABEL CABRAL Not Available Start: 09-25-2023 End: 09-25-2023 ambulatory TERESA M JO ANN-NOSSEK Not Available Start: 2023 End: 2023 ambulatory YSABEL CABRAL Not Available Start: 08-21-2023 End: 08-21-2023 ambulatory YSABEL CABRAL Not Available Start: 08-16-2023 End: 08-16-2023 ambulatory AIDAN CARVAJAL Not Available Start: 08-10-2023 End: 08-10-2023 ambulatory YSABEL CABRAL Not Available Start: 08-07-2023 End: 08-07-2023 ambulatory TERESA M JO ANN-NOSSEK Not Available Start: 06-28-2023 End: 06-28-2023 ambulatory EVONNE CHILDRESS Not Available Start: 06-20-2023 End: 06-20-2023 ambulatory TERESA M JO ANN-NOSSEK Not Available Start: 06-11-2023 End: 06-11-2023 ambulatory TERESA M JO ANN-NOSSEK Not Available Start: 03-21-2023 End: 03-21-2023 ambulatory TERESA M JO ANN-NOSSEK Not Available Start: 02-14-2023 End: 02-14-2023 ambulatory TERESA M JO ANN-NOSSEK Not Available Start: 01-17-2023 End: 01-17-2023 ambulatory TERESA M JO ANN-NOSSEK Not Available Start: 11-09-2021 End: 11-09-[address] TALITA DODSON Facility:[facility] Start: 05-11-2021 ([facility] C Vac) [facility] Co vid Vaccine Vicky Joe [facility] Start: 05-11-2021 End: 05-11-2021 ambulatory Vicky Joe Other [employer] Other Start: 03-01-2021 End: 03-01-2021 ambulatory AIDAN CARVAJAL Facility:[facility] Start: 12-10-2020 End: 12-10-[address] TALITA DODSON Facility:[facility] Procedures Date Procedure Procedure Detail Performing Clinician Start: 12-18-2022 Cyclic citrullinated peptide antibody Comment on above: Performed By: #### C BC/2A, ESRCRP, CCP, HBC-M, HBSAG, HCV, CA, MG, RHF, URCA #### [facility] [address] [facility], [address] Plan of Treatment Date Care Activity Detail Author Start: 01-01-2024 End: 01-01-2024 Patient encounter procedure 01/01/2024 11:30 AM EST Office Visit [facility] [address] [facility] [address] [place] [id number] Teresa Lundy, BOARDING KENNEL OR CATTERY OPERATOR-SITE ACQUISITION MANAGER [address] [facility] [address] [place] [address] [facility] Start: 12-18-2023 End: 12-18-2023 Patient encounter procedure 12/18/2023 5:30 PM EDT Office Visit [facility] [place] [address] [place] [id number] Evonne Childress, [address] [place] [address] [facility] [place] [address] Start: 11-28-2023 End: 11-28-2023 Patient encounter procedure 11/28/2023 2:20 PM EDT Routine [facility] [address] [place] [id number] Raghavendra Vasquez DO [address] [place] [address] [facility] Start: 10-28-2023 Influenza vaccination Influenza Vaccine (#1) [facility] Start: 09-10-2017 Screening for malignant neoplasm of cervix [facility] Start: 09-10-2008 Screening for malignant neoplasm of cervix Pap Smear [facility] Immunizations Immunization Date Immunization Notes Care Provider Corrina hanson 05-11-2021 COVID-19 Shireenconrado Forresttito Joe Other [employer] Other 10-02-2016 influenza, injectabl e, quadrivalent, preservative free Teresa Jo Ann-Nossek BOARDING KENNEL OR CATTERY OPERATOR-SITE ACQUISITION MANAGER Work Phone: [facility] 10-02-2016 influenza virus vaccine, unspecified formulation Teresa Jo Ann-Nossek BOARDING KENNEL OR CATTERY OPERATOR-SITE ACQUISITION MANAGER Work Phone: [facility] 10-13-2015 influenza, injectabl e, quadrivalent, preservative free Teresa Jo Ann-Nossek BOARDING KENNEL OR CATTERY OPERATOR-SITE ACQUISITION MANAGER Work Phone: [facility] 12-02-2014 influenza, seasonal, injectable, preservative free Teresa Jo Ann-Nossek BOARDING KENNEL OR CATTERY OPERATOR-SITE ACQUISITION MANAGER Work Phone: [facility] Payers Date Payer Category Payer Medicaid [employer] [place] [employer] [id number] 2021-Present [address] [place] [address] [id number] 1987 Unknown [id number] 1987 Unknown [id number] 1987 Unknown [id number] 04.13.830.1.583362.3.579.2.593 1987 Unknown [id number] .1.750203.3.579.2.1259 1987 Unknown [id number] 840.1.366044.3.579.2.1259 1987 Unknown [id number] 2.16.840.1.965181.3.579.2.1258 1987 Unknown [id number] 2.16.840.1.833587.3.579.2.1258 1987 Unknown [id number] 2.16.840.1.710846.3.579.2.1258 1987 Unknown [id number] 2.16.840.1.520352.3.579.2.1258 1987 Unknown [id number] 2.16.840.1.283247.3.579.2.1258 1987 Unknown [id number] 2.16.840.1.083258.3.579.2.1258 1987 Unknown [id number] 2.16.840.1.256923.3.579.2.1258 1987 Unknown [id number] 2.16.840.1.131826.3.579.2.1258 1987 Unknown [id number] 2.16.840.1.661489.3.579.2.1258 1987 Unknown [id number] 2.16.840.1.577308.3.579.2.1258 1987 Unknown [id number] 2.16.840.1.350088.3.579.2.1258 1987 Unknown [id number] 2.16.840.1.807472.3.579.2.1258 1987 Unknown [id number] 2.16.840.1.201091.3.579.2.1258 1987 Unknown [id number] 2.16.840.1.432009.3.579.2.1258 1987 Unknown [id number] 2.16.840.1.146136.3.579.2.1258 1959 Unknown [id number] 2.16.840.1.884311.19 Social History Date Type Detail Facility Unknown if ever smoked [employer] Other Start: 2022 End: 09-25-2023 Sex Assigned At [facility] [employer] Other Start: 12-22-2022 [facility] Start: 12-22-2022 Tobacco use and exposure Smokeless tobacco non-user [facility] Start: 11-01-2023 Alcoholic beverage intake Current drinker of alcohol (finding) [facility] Start: 09-25-2023 End: 11-01-2023 Alcoholic beverage intake [facility] How often to you hav e a drink containing alcohol? 4 or more times a week [facility] How many standard drinks containing alcohol do you have on a typical day? 1 or 2 [facility] How often do you hav e 6 or more drinks on 1 occasion? Never [facility] Start: 12-22-2022 Tobacco Comment Vapes daily [facility] Start: 2022 Alcohol Comment cup coffee day [facility] Start: 09-15-2023 [facility] Start: 1987 Sex assigned at Not on file [facility] History of Present illness Narrative 11-27-2023 Teresa Lundy, BOARDING KENNEL OR CATTERY OPERATOR-SITE ACQUISITION MANAGER - 11/27/2023 11:00 AM EDT Note Date & Type Note Facility 11-27-2023 History of Presen t illness Narrative Images from the original note were not included. Tiki Matson is a 38 y.o. female presents for Medication Management. HPI: This is a telemed visit. Consents for audio and video. Patient is at her job. Patient is here for medication follow up. Patient Is 111/2 weeks . Has appt with OB tomorrow. Has had excessive vomiting since . Mood is down, sad and not motivated. Struggles to get thru the day. Patient is not taking any psychiatric medications. Crying all the time. Hx of x 2. Patient has decompensated since last appt. Denies feeling anxious. Sleeping well. Medication compliant. No reported side effects. Denies abuse of substances. Medical problems since last visit. Had COVID, Bronchitis. Having blood work done. 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 Psychosocial stressors include . SUBJECTIVE: PAST MEDICAL HISTORY: Past Medical History: Diagnosis Date Adenoma of left breast removed 2013 ADHD (attention deficit hyperactivity disorder) ([facility]) Anemia Anxiety Asthma ([facility]) Back pain Common migraine ([facility]) 08/17/2015 Depression ([facility]) H/O colonoscopy 2012 H/O umbilical hernia repair 2008 Headache 08/17/2015 Inadequate sleep hygiene 04/23/2018 Insomnia 06/25/2017 Migraine ([facility]) 03/22/2017 Migraines ([facility]) Nausea with vomiting 08/17/2015 Pain in limb 08/20/2014 Sleep disturbance 11/30/2016 Tendonitis of right hand Tenosynovitis of foot 08/20/2014 Tension headache 08/17/2015 Vitamin D deficiency ALLERGIES: Allergies Allergen Reactions Amitriptyline Other Reaction(s): Other (See Comments) Extreme drowsiness Aspirin Other Reaction(s): hives,difficulty breathing Cyclobenzaprine Diclofenac Unknown Ibuprofen Other Reaction(s): All NSAIDS, hives Lamotrigine Other Reaction(s): rash-per patient report Meloxicam Unknown Naproxen Unknown Nsaids Other Reaction(s): Unknown SURGICAL HISTORY: Past Surgical History: Procedure Laterality Date BREAST SURGERY Left 12/2013 adenoma removed left breast COLONOSCOPY 06/25/2017 COLPOSCOPY 2013 LEG SURGERY 09/2014 tibial and fibular sesmoid removal TIBIA FRACTURE SURGERY Left 2019 tibial sesmoid removal UMBILICAL HERNIA REPAIR 2008 WISDOM TOOTH EXTRACTION 06/15/2017 FAMILY HISTORY: Family History Problem Relation Name Age of Onset Depression Mother Anxiety disorder Mother Hyperlipidemia Mother Sarcoidosis Mother Migraines Mother Rheum arthritis Father Depression Father Alcohol abuse Father Stroke Father Asthma Other SOCIAL HISTORY: Social History Tobacco Use Smoking status: Never Smokeless tobacco: Never Tobacco comments: Vapes daily Vaping Use Vaping status: Every Day Substances: Nicotine, Flavoring Devices: Disposable Substance Use Topics Alcohol use: Yes Alcohol/week: 12.0 standard drinks of alcohol Types: 6 Glasses of wine, 6 Standard drinks or equivalent per week Comment: cup coffee day Drug use: Not Currently Types: Benzodiazepines Depression: Not at risk (09/25/2023) PHQ-2 PHQ-2 Score: 0 REVIEW OF SYMPTOMS - MENTAL STATUS EXAM Appearance Appearance: Casual dress, normal grooming and hygiene Attitude Attitude: Cooperative, conversant, engaged, and with good eye contact. Behavior Cooperative, conversant, engaged, and with good eye contact. Speech Normal, clear, regular rate, rhythm and volume Affect Sad/tearful Mood Depressed Thought Process Organized and Clear Thought Content No Suicidal Ideation and No Homicidal ideation Perception No perceptual abnormalities noted Orientation Appropriate to age, Person, Place, and Time Memory/Concentration Short term intact and intermodal truck driver intact Insight/Judgement Good OBJECTIVE: Visit Vitals LMP 09/01/2023 OB Status Smoking Status Never No results found for: TSH Lab Results Component Value Date GLU 87 12/22/2022 CALCIUM 10.1 12/22/2022 NA 140 12/22/2022 K 3.9 12/22/2022 CO2 23 12/22/2022 CL 105 12/22/2022 BUN 15 12/22/2022 CREATININE 0.74 12/22/2022 Lab Results Component Value Date WBC 6.5 07/12/2021 Lab Results Component Value Date CHOL 265 (H) 12/22/2022 Lab Results Component Value Date HDL 76 12/22/2022 Lab Results Component Value Date LDLCALC 153 (H) 12/22/2022 Lab Results Component Value Date TRIG 214 (H) 12/22/2022 ASSESSMENT AND PLAN: Assessment/Plan Assess/Plan Smart[employer]: Attention deficit hyperactivity disorder (ADHD), combined type (CMS/HCC) Episodic mood disorder (CMS/HCC) Generalized anxiety disorder (CMS/HCC) Psych Medication List Zoloft 25mg po every day Patient was seen televisit Reviewed chart documents and documentation, Visit time : 22min F/U 6 weeks documented in this encounter [facility] Clinical Note 08-03-2021 Note Date & Type [...] signed by Alexei Smith on 08/03/2021 [id number] [facility] Veterinary Surgery Technician Evaluation note 05-11-2021 Note Date & Type Note Facility 05-11-2021 Evaluation note Encounter Date Diagnosis Assessment Notes Apr, Encounter for immunization (ICD-10 - Z23) Patient presents for COVID-19 vaccination #2. Pre-screening form answers evaluated with patient. Patient denies current illness or allergic reaction to component of COVID-19 vaccine. Patient provided with current copy of EUA. [employer] Other Evaluation note Note Date & Type Note Facility Evaluation note Diagnosis Attention deficit hyperactivity disorder (ADHD), combined type (CMS/HCC) Generalized anxiety disorder (CMS/HCC) Generalized anxiety disorder documented in this encounter [facility] History general Narrative - Reported Note Date & Type Note Facility History general Narrative - Reported Type Medical History DEPRESSIVE DISORDER Medical History ASTHMA Medical History ANXIETY Medical History MIGRAINES Medical History BIPOLAR Medical History BACK PAIN Medical History ANEMIA Surgical History umbilical herniorrhaphy 2007 Surgical History colposcopy 2012 Surgical History adenoma removed from left breas t Surgical History tibial and fibular sesmoid 10-15 [employer] Other Summary Purpose Family History No Family History Records FoundNo Family History Records FoundNo Family History Records FoundNo Family History Records FoundNo Family History Records Found Advance Directives No Advanced Directives Records FoundNo Advanced Directives Records FoundNo Advanced Directives Records FoundNo Advanced Directives Records FoundNo Advanced Directives Records Found Additional Source Comments INFORMATION SOURCE (unrecogn ized section and content) DATE CREATED AUTHOR 05/25/2021 [facility] DATE CREATED AUTHOR AUTHOR'S ORGANIZ ATION 08/04/2021 [facility] dical Specialist DATE CREATED AUTHOR AUTHOR'S ORGANIZ ATION 11/23/2021 [facility] DATE CREATED AUTHOR AUTHOR'S ORGANIZ ATION 12/19/2022 [facility] DATE CREATED AUTHOR AUTHOR'S ORGANIZ ATION 11/03/2023 [facility] dical Specialists EPIC REASON FOR VISIT (unrecogniz ed section and content) 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 [facility] [employer] [facility]. provides no warranty or guarantee of the accuracy or completeness of information in this document.
[2023-11-28 16:30] LABS: Basophils Percent Auto 0.2 % (0.2-2.0); Eosinophils Absolute Auto 0.2 10^3/uL (0.0-0.7); Eosinophils Percent Auto 2.3 % (0.9-7.0); Hematocrit 37.1 % (36.0-48.0); Hemoglobin 12.3 g/dL (12.0-16.0); Immature Granulocytes Abs Auto 0.04 10^3/uL (0.00-0.03); Immature Granulocytes Pct Auto 0.4 % (0.0-0.5); Lymphocytes Absolute Auto 2.7 10^3/uL (1.2-3.8); Lymphocytes Percent Auto 28.4 % (20.5-60.0); Mean Corpuscular HGB Conc 33.2 g/dL (29.9-35.2); Mean Corpuscular Volume 84.3 fL (81.0-99.0); Mean Platelet Volume 10.4 fL (9.5-13.5); Monocytes Absolute Auto 0.5 10^3/uL (0.3-0.8); Neutrophils Percent Auto 63.7 % (43.0-75.0); Platelet Count 253 10^3/uL (150-450); Red Cell Distribution Width 12.3 % (11.0-15.0); White Blood Count 9.4 10^3/uL (4.0-11.0)
[2023-11-28 16:43] LABS: Estimated Average Glucose 105 mg/dL; Glycohemoglobin A1C 5.3 % (4.5-6.2)
[2023-11-28 17:11] LABS: BOX Test Reference Lab UNITY
[2023-11-28 17:12] LABS: BOX Test Sent Out UNITY
[2023-11-30 06:14] LABS: HBsAg Screen Negative (Negative); HCV Ab Non Reactive (Non Reactive); HIV Ab/p24 Ag Screen Non Reactive (Non Reactive)
[2023-11-30 07:12] LABS: Rubella Antibodies, IgG 1.44 index (Immune >0.99)
[2023-11-30 11:09] LABS: Rapid Plasma Reagin, Quant Non Reactive titer (NonRea<1:1)
== END 2023-11-28 15:56 | disposition home or self-care (01) ==
LOC: LAB 15:55
PROVIDERS: PCP Family Medicine; Visit Provider Obstetrics & Gynecology
DX: N92.6 Irregular menstruation, unspecified (principal); Z36.0 Encounter for antenatal screening for chromosomal anomalies
CPT/HCPCS: 36415; 83036; 85025; 86592; 86762; 86803; 86850; 86900; 86901; 87340; 87389

== ENCOUNTER 2024-01-10 20:28 | Outpatient (REF) | payer OTHER, SELFPAY ==
--- OUTSIDE RECORDS SUMMARY | 2024-01-10 20:31 | XMS_ITS | CCD ---
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 Name Role Phone Vicky Joe Unavailable WEST, DR SANON Admitting Unavailable KARASIK, DR SANON Attending Unavailable KARASIK, DR SANON Consulting Unavailable KARASIK, DR SANON Attending Unavailable KARASIK, DR SANON Consulting Unavailable KARASIK, DR SANON Admitting Unavailable AIDAN CARVAJAL Attending Unavailable IADAN CARVAJAL Consulting Unavailable AIDAN CARVAJAL Admitting Unavailable Ysabel Cabral MD Primary Care Provider Ale Zaldivar MD Unavailable JO ANNDEE HENAOICIAlexander Alonzo Attending Unavailab le JO ANN-NOSSEKTERESA Attending Unavailab le JO ANN-NOSSEKDEETERESA Cheri Attending Unavailab le JO ANN-NOSSEK TERESA Cheri Attending Unavailab EVONNE Hargrove Attending Unavailable DEE ORNELASICIAlexander Alonzo Attending Unavailab YSABEL Don Attending Unavailable AIDAN CARVAJAL Attending Unavailable AIDAN CARVAJAL Referring Unavailable YSABEL CABRAL Attending Unavailable YSABEL CABRAL Attending Unavailable JO ANN-NOSSEKDEETERESA M Attending Unavailab YSABEL Don Attending Unavailable EVONNE CHILDRESS Attending Unavailable JO ANN-NOSSEKDEETERESA M Attending Unavailab YSABEL Don Attending Unavailable JO ANN-NOSSEK TERESA Cheri Attending Unavailab ELIUD Bustamante Attending Unavailable JO ANN-NOSSEK, TERESA M Attending Unavailab le Allergies Allergy Classification Reported Allergen(s) Allergy Type Date of Onset Reaction(s) Facility (1 source) Aspirin Drug Allergy shortness of breath [employer] [employer] Other (12 sources) Diclofenac Drug Allergy 07-05-19 23 Unknown [facility] [employer] Other (12 sources) Ibuprofen Drug Allergy 07-05-19 23 Unknown [facility] Other (12 sources) Naproxen Drug Allergy 07-05-19 23 Unknown [facility] [employer] Other (12 sources) NSAIDs Drug allergy 07-05-19 23 Unknown [employer] Other (1 source) Aspirin Drug Allergy 02-26-18 90 [facility] (1 source) cyclobenzaprine Drug Allergy 01-10-20 15 [facility] (1 source) Diclofenac Drug Allergy 01-10-20 15 [facility] (1 source) Ibuprofen Drug Allergy 08-04-19 16 [facility] (1 source) NSAIDs Drug allergy (disorder) 01-02-20 14 [facility] (11 sources) Aluminum aspirin Drug Allergy 07-05-19 23 [facility] (11 sources) Amitriptyline Drug Allergy 03-22-19 18 [facility] (11 sources) cyclobenzaprine Drug Allergy 01-24-20 16 [facility] (11 sources) Lamotrigine Allergy to substance 07-05-19 23 [facility] (11 sources) meloxicam Drug Allergy 07-05-19 23 Unknown [facility] (2 sources) Sertraline Drug Allergy 01-01-20 24 [facility] Medications Current Medications [...] % Externally Active onabotulinumtoxina 200 unt injection (11 sources) Acetylcholine Release Inhibitor onabotulinumtoxinA (Botox) 200 units injection Active calcium carbonate 1500 mg / cholecalciferol 200 unt oral tablet (1 source) Vitamin D take 1 tablet by mouth every twenty-four hours Calcium + D 600-200 MG-UNIT 1 tablet with food Orally Once a day Active cholecalciferol 0.025 mg oral tablet (11 sources) Vitamin D Start: take 1 tablet by mouth once daily D3-1000 25 MCG (1000 UT) tablet TAKE 1 TABLET BY MOUTH EVERY DAY FOR 90 DAYS 10/25/2021 Active clonazePAM 0.5 mg disintegrating oral tablet (1 source) Benzodiazepine take 1 tablet by mouth every twelve hours clonazePAM 0.5 MG 1 tablet on the tongue and allow to dissolve Orally Twice a day Active ethinyl estradiol 0.03 mg / norethindrone acetate 1.5 mg oral tablet (1 source) Estrogen take 1 tablet by mouth every twenty-four hours June 1.5-30 MG-MCG 1 tablet Orally Once a day Active Fish Oils (1 source) take 1 capsule by mouth once daily Fish Oil 1000 MG 1 capsule Orally Once a day Active fluticasone propionate 0.05 mg/actuat metered dose nasal spray (12 sources) Corticosteroid take 1 spray(s) nasal route [...] Externally Three times a day Active Magnesium (6 sources) Start: 11-15-19 End: 12-15-19 24 take [...] Active promethazine hydrochloride 12.5 mg oral tablet (11 sources) Phenothiazine Start: 10-22-19 24 take 1 [...] day Active sertraline 50 mg oral tablet (20 sources) Serotonin Reuptake Inhibitor Start: 01-01-20 End: 01-31-20 24 take 0.5 tablet by mouth once daily sertraline (Zoloft) 50 MG tablet Indications: Generalized anxiety disorder (CMS/HCC) Take 0.5 tablets (25 mg) by mouth Daily 30 tablet 1 01/01/2024 01/31/2024 Active Start: 08-07-2023 End: 11-26-2024 take 1 tablet by mouth once daily sertraline (Zoloft) 50 MG tablet Indications: Generalized anxiety disorder (CMS/HCC) Take 1 tablet (50 mg) by mouth Daily 30 tablet 1 11/27/2023 01/01/2024 Discontinued sulfamethoxazole 800 mg / trimethoprim 160 mg oral tablet (1 source) Dihydrofolate Reductase Inhibitor Antibacterial, Sulfonamide Antimicrobial take 1 tablet by mouth every twenty-four hours Bactrim DS 800-160 MG 1 tablet Orally DAILY Active tiZANidine 4 mg oral tablet (12 sources) Central alpha-2 Adrenergic Agonist tiZANidine (Zanaflex) [...] Active vitamin b12 2.5 mg oral lozenge (12 sources) Vitamin B12 Start: 07-26-2021 Cyanocobalamin 2500 MCG sublingual tablet 1 (one) time each day at the same time. 07/26/2021 Active Vitamin B12 INJE CTION MONTHLY Active zonisamide 100 mg oral capsule (1 source) Anti-epileptic Agent take 1 capsule by mouth every twenty-four hours Zonisamide 100 MG 1 capsule Orally Once a day Active Completed/Discontinued Medications Medication Drug Class(es) Dates Sig (Normalized) Sig (Original) acetaminophen 325 mg / butalbital 50 mg / caffeine 40 mg oral tablet (7 sources) Barbiturate, Central Nervous System Stimulant, Methylxanthine Start: 09-24-2023 End: 11-28-2023 butalbital-acetam inophen-caffeine 50-325-40 MG tablet Indications: 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) TAKE 1 TABLET BY MOUTH AT ONSET OF HEADACHE *MAY REPEAT IN 2 HRS NEEDED *MAX 2DAYS/WEEK 30 DAYS 20 tablet 1 09/24/2023 11/28/2023 Discontinued (Other) [id number] 200 actuat albuterol 0.09 mg/actuat metered dose inhaler (18 sources) beta2-Adrenergic Agonist Start: 09-25-2023 End: 09-24-2024 take 2 puff(s) by inhalation every four hours for wheezing albuterol HFA (ProAir HFA) 90 mcg/act inhaler Indications: Acute bronchitis, unspecified organism Inhale 2 puffs every 4 (four) hours if needed for wheezing 18 g 11 09/25/2023 11/28/2023 Discontinued (Other) albuterol HFA (P roAir HFA) 90 mcg/act inhaler Active dicyclomine hydrochloride 20 mg oral tablet (5 sources) Anticholinergic Start: 01-17-2023 End: 11-28-2023 take 1 tablet by mouth three times daily as needed for diarrhea dicyclomine (Bentyl) 20 MG tablet Indications: Irritable bowel syndrome with diarrhea TAKE 1 TABLET BY MOUTH 3 (THREE) TIMES A DAY NEEDED (DIARRHEA). 270 tablet 1 01/17/2023 11/28/2023 Discontinued (Other) take 1 tablet by ghazal th every eight hours Dicyclomine HCl 20 mg 1 tablet Orally TH REE TIMES A DAY for 30 days Active Problems Active Problems Problem Classification Problem Date Documented Da te Episodic/Chronic Anxiety disorders (20 sources) Generalized anxiety disorder; Translations: [Generalized anxiety disorder] Onset: 0 11-27-2023 Chronic Asthma (20 sources) Asthma; Translations: [Unspecified asthma, uncomplicated] Onset: 5 12-28-2022 Chronic Attention-deficit, conduct, and disruptive behavior disorders (13 sources) Attention deficit hyperactivity disorder, combined type; Translations: [Attention-deficit hyperactivity disorder, combined type] Onset: 3 11-27-2023 Chronic Esophageal disorders (1 source) Gastroesophageal reflux disease; Translations: [Gastro-esophageal reflux disease without esophagitis] Chronic Gastritis and duodenitis (11 sources) Chronic gastritis; Translations: [Unspecified chronic gastritis without bleeding] Onset: 3 12-28-2022 Chronic Headache; including migraine (20 sources) Migraine without aura, not refractory ; Translations: [Migraine without aura, not intractable, without status migrainosus] Onset: 8 12-28-2022 Chronic Immunizations and screening for infectious disease (2 sources) Encounter for immunization; Translations: [Encounter for screening for human papillomavirus (HPV)] Onset: 2 Resolved: 2 Episodic Malaise and fatigue (11 sources) Chronic fatigue syndrome; Translations: [Chronic fatigue syndrome] Onset: 7 12-28-2022 Chronic Miscellaneous mental health disorders (2 sources) Primary insomnia; Translations: [Primary insomnia] 12-17-2023 Chronic Mood disorders (11 sources) Episodic mood disorder; Translations: [Unspecified mood [affective] disorder] Onset: 3 07-04-2022 Chronic Nutritional deficiencies (11 sources) Vitamin D deficiency; Translations: [Vitamin D deficiency, unspecified] Onset: 3 12-28-2022 Chronic Osteoarthritis (20 sources) Localized, primary osteoarthritis of the ankle and/or foot; Translations: [Primary osteoarthritis, unspecified ankle and foot] Onset: 0 12-28-2022 Chronic Other acquired deformities (11 sources) Acquired scoliosis; Translations: [Scoliosis, unspecified] Onset: 7 12-28-2022 Chronic Other gastrointestinal disorders (11 sources) Irritable bowel syndrome; Translations: [Irritable bowel syndrome without diarrhea] Onset: 7 12-28-2022 Chronic Other and delivery including normal (4 sources) First trimester ; Translations: [Encounter for supervision of normal , unspecified, first trimester] 11-28-2023 Episodic Other screening for suspected conditions (not mental disorders or infectious disease) (4 sources) Encounter for screening for malignant neoplasm of cervix; Translations: [ENC SCREENING MALIG NEOPLASM CERV] Onset: 2 Episodic Other upper respiratory disease (11 sources) Allergic rhinitis; Translations: [Allergic rhinitis, unspecified] Onset: 0 12-28-2022 Chronic Unclassified (2 sources) CONTACT W/AND (SUSP) EXPOS COVID-19; Translations: [CONTACT W/AND (SUSP) EXPOS COVID-19] Onset: 2 Viral infection (1 source) COVID-19; Translations: [COVID-19] Onset: 2 Past or Other Problems Problem Classification Problem Date Documented Da te Episodic/Chronic Abdominal pain (2 sources) Epigastric pain; Translations: [Epigastric pain] Episodic Headache; including migraine (11 sources) Headache; Translations: [Headache] Onset: 06-28-2023 06-28-2023 Episodic Mood disorders (11 sources) Mood disorders Onset: 06-11-2023 06-11-2023 Nausea and vomiting (12 sources) Nausea and vomiting; Translations: [Nausea with vomiting, unspecified] Onset: 06-28-2023 06-28-2023 Episodic Other connective tissue disease (11 sources) Tenosynovitis of foot; Translations: [Tenosynovitis of foot] Onset: 06-28-2023 06-28-2023 Episodic Other connective tissue disease (11 sources) Pain in limb; Translations: [Pain in [...] Translations: [Diarrhea, unspecified] Episodic Residual codes; unclassified (11 sources) Inadequate sleep hygiene; Translations: [Inadequate sleep hygiene] Onset: 06-28-2023 06-28-2023 Episodic Residual codes; unclassified (11 sources) Disturbance in sleep behavior; Translations: [Sleep disorder, unspecified] Onset: 06-28-2023 06-28-2023 Episodic Residual codes; unclassified (11 sources) Insomnia; Translations: [Insomnia, unspecified] Onset: 06-28-2023 06-28-2023 Episodic Residual codes; unclassified (11 sources) Other problems related to lifestyle; Translations: [Other problems related to lifestyle] Onset: 06-28-2023 06-28-2023 Episodic Unclassified (1 source) CONTACT W/AND (SUSP) EXPOS COVID-19; Translations: [CONTACT W/AND (SUSP) EXPOS COVID-19] Onset: 03-01-2021 Results Test Name Value Interpretation Reference Range Facility ALL CBC WITH AUTO DIFFon BASOPHILS ABSOLUTE AUTO 0.0 [facility] Basophils/100 WBC (Bld) 0.2 % 0.2 - 2.0 % [facility] Eosinophils/100 WBC (Bld) 2.3 % 0.9 - 7.0 % [facility] Erythrocyte distribution width (RBC) [Ratio] 12.3 % 11.0 - 15.0 % [facility] Hematocrit (Bld) [Volume fraction] 37.1 % 36.0 - 48.0 % [facility] Hemoglobin (Bld) [Mass/Vol] 12.3 g/dL 12.0 - 16.0 g/dL [facility] IMMATURE GRANULOCYTES ABS AUTO 0.04 High [facility] Immature granulocytes/100 WBC (Bld) 0.4 % 0.0 - 0.5 % [facility] Interpretation and review of laboratory results Abnormal [facility] LYMPHOCYTES ABSOLUTE AUTO 2.7 [facility] Lymphocytes/100 WBC (Bld) 28.4 % 20.5 - 60.0 % [facility] MCH (RBC) [Entitic mass] 28.0 pg 26.7 - 34.0 pg [facility] MCHC (RBC) [Mass/Vol] 33.2 g/dL 29.9 - 35.2 g/dL [facility] MCV (RBC) [Entitic vol] 84.3 fL 81.0 - 99.0 fL [facility] MONOCYTES ABSOLUTE AUTO 0.5 [facility] Monocytes/100 WBC (Bld) 5.0 % 1.7 - 12.0 % [facility] NEUTROPHILS ABSOLUTE AUTO 6.0 [facility] Neutrophils/100 WBC (Bld) 63.7 % 43.0 - 75.0 % [facility] Platelet mean volume (Bld) [Entitic vol] 10.4 fL 9.5 - 13.5 fL [facility] TBH EO # 0.2 [facility] [address]T [address] [facility] RBC 4.40 [facility] WBC 9.4 [facility] Urinalysis macro (dipstick) panel (U)on 11-28-2023 Bilirubin, UA Negative Negative - 4(70) +++ mg/dL [facility] Blood, UA Negative Negative - 50 Armand/mcL [facility] Clarity, UA Clear [facility] Color, UA Yellow [facility] Glucose, UA Negative Negative - 1999(110) ++++ mg/dL [facility] Interpretation and review of laboratory results Normal [facility] Ketones, UA Negative Negative - 160(16) ++++ mg/dL [facility] Leukocytes, UA Negative Negative - 500+++ Doe/mcL [facility] Nitrite, UA Negative Negative - Positive [facility] pH, UA 7.0 5 - 9 [facility] Protein, UA Negative Negative - 1999(20) ++++ mg/dL [facility] Spec Grav, UA 1.025 1 - 1.03 [facility] Urobilinogen, UA 1.0 0.2 - 12 mg/dL [facility] XR CERVICAL SPINE AP/LAT/FLE X/EXT/OBLIQUESon 08-16-2023 XR CERVICAL SPINE AP/LAT/FLEX/EXT/OBL IQUES FINDINGS: Normal disc space heights. Minimal osteophyte [...] [Mass/Vol] 8.9 mg/dL Normal (8.6 - 10.6) [facility] Comment on above: Performed By: #### C BC/2A, ESRCRP, CCP, HBC-M, HBSAG, HCV, CA, MG, RHF, URCA #### [facility] [address] [facility], [address] CBC, ALB, ALT, AST, ALK AND CREAon 12-18-2022 Albumin [Mass/Vol] 5.0 g/dL Normal (3.5 - 5.0) [facility] Comment on above: Order Comment: FACIL ITY: [facility] [id number] Performed By: #### C BC/2A, ESRCRP, CCP, HBC-M, HBSAG, HCV, CA, MG, RHF, URCA #### [facility] [address] [facility], [address] ALK PHOS 60 U/L Normal (38 - 126) [facility] Comment on above: Order Comment: FACIL ITY: [facility] [id number] Performed By: #### C BC/2A, ESRCRP, CCP, HBC-M, HBSAG, HCV, CA, MG, RHF, URCA #### [facility] [address] [facility], [address] ALT [Catalytic activity/Vol] 34 U/L Normal (1 - 35) [facility] Comment on above: Order Comment: FACIL ITY: [facility] [id number] Performed By: #### C BC/2A, ESRCRP, CCP, HBC-M, HBSAG, HCV, CA, MG, RHF, URCA #### [facility] [address] [facility], [address] AST [Catalytic activity/Vol] 34 U/L Normal (15 - 46) [facility] Comment on above: Order Comment: FACIL ITY: [facility] [id number] Performed By: #### C BC/2A, ESRCRP, CCP, HBC-M, HBSAG, HCV, CA, MG, RHF, URCA #### [facility] [address] [facility], [address] Creatinine [Mass/Vol] 0.61 mg/dL Normal (0.52 - 1.04) [facility] Comment on above: Order Comment: FACIL ITY: [facility] [id number] Performed By: #### C BC/2A, ESRCRP, CCP, HBC-M, HBSAG, HCV, CA, MG, RHF, URCA #### [facility] [address] [facility], [address] GFR- AMER 135.1 ML/M1.7 Normal (60.0 - 140.1) [facility] Comment on above: Order Comment: FACIL ITY: [facility] [id number] Performed By: #### C BC/2A, ESRCRP, CCP, HBC-M, HBSAG, HCV, CA, MG, RHF, URCA #### [facility] [address] [facility], [address] GFR-NON AFRIC-AMER 111.6 ML/M1.7 Normal (60.0 - 115.8) [facility] Comment on above: Order Comment: FACIL ITY: [facility] [id number] Performed By: #### C BC/2A, ESRCRP, CCP, HBC-M, HBSAG, HCV, CA, MG, RHF, URCA #### [facility] [address] [facility], [id number] Hematocrit (Bld) [Volume fraction] 41.5 % Normal (37.0 - 47.0) [facility] Comment on above: Order Comment: FACIL ITY: [facility] [id number] Performed By: #### C BC/2A, ESRCRP, CCP, HBC-M, HBSAG, HCV, CA, MG, RHF, URCA #### [facility] [address] [facility], [id number] Hemoglobin (Bld) [Mass/Vol] 13.5 g/dL Normal (12.0 - 16.0) [facility] Comment on above: Order Comment: FACIL ITY: [facility] [id number] Performed By: #### C BC/2A, ESRCRP, CCP, HBC-M, HBSAG, HCV, CA, MG, RHF, URCA #### [facility] [address] [facility], [id number] MCH (RBC) [Entitic mass] 28.7 pg Normal (27.0 - 33.0) [facility] Comment on above: Order Comment: FACIL ITY: [facility] [id number] Performed By: #### C BC/2A, ESRCRP, CCP, HBC-M, HBSAG, HCV, CA, MG, RHF, URCA #### [facility] [address] [facility], [id number] MCHC (RBC) [Mass/Vol] 32.5 g/dL Normal (30.0 - 37.0) [facility] Comment on above: Order Comment: FACIL ITY: [facility] [id number] Performed By: #### C BC/2A, ESRCRP, CCP, HBC-M, HBSAG, HCV, CA, MG, RHF, URCA #### [facility] [address] [facility], [address] MCV (RBC) [Entitic vol] 88.1 fL Normal (81.0 - 99.0) [facility] Comment on above: Order Comment: FACIL ITY: [facility] [id number] Performed By: #### C BC/2A, ESRCRP, CCP, HBC-M, HBSAG, HCV, CA, MG, RHF, URCA #### [facility] [address] [facility], [address] PLT 282 x10^3ul Normal (130 - 400) [facility] Comment on above: Order Comment: FACIL ITY: [facility] [id number] Performed By: #### C BC/2A, ESRCRP, CCP, HBC-M, HBSAG, HCV, CA, MG, RHF, URCA #### [facility] [address] [facility], [address] RBC 4.71 x10^6ul Normal (4.20 - 5.40) [facility] Comment on above: Order Comment: FACIL ITY: [facility] [id number] Performed By: #### C BC/2A, ESRCRP, CCP, HBC-M, HBSAG, HCV, CA, MG, RHF, URCA #### [facility] [address] [facility], [address] WBC 6.47 x10^3ul Normal (3.80 - 10.60) [facility] Comment on above: Order Comment: FACIL ITY: [facility] [id number] Performed By: #### C BC/2A, ESRCRP, CCP, HBC-M, HBSAG, HCV, CA, MG, RHF, URCA #### [facility] [address] [facility], [address] HEP B CORE AB, IGMon 023 HEPATITIS B CORE ANTIBODY, IGM Negative Normal (NEG - NEG) [facility] Comment on above: Performed By: #### C BC/2A, ESRCRP, CCP, HBC-M, HBSAG, HCV, CA, MG, RHF, URCA #### [facility] [address] [facility], [address] HEP B HERACLIO AGon 12-18-2022 HEP B HERACLIO AG Negative Normal (NEG - NEG) [facility] Comment on above: Performed By: #### C BC/2A, ESRCRP, CCP, HBC-M, HBSAG, HCV, CA, MG, RHF, URCA #### [facility] [address] [facility], [address] HEP C ANTIBODYon 12-18-2022 HEPATITIS C ANTIBODY Negative Normal (NEG - NEG) [facility] Comment on above: Performed By: #### C BC/2A, ESRCRP, CCP, HBC-M, HBSAG, HCV, CA, MG, RHF, URCA #### [facility] [address] [facility], [address] MAGNESIUMon 12-18-2022 Magnesium [Mass/Vol] 2.0 mg/dL Normal (1.6 - 2.3) [facility] Comment on above: Performed By: #### C BC/2A, ESRCRP, CCP, HBC-M, HBSAG, HCV, CA, MG, RHF, URCA #### [facility] [address] [facility], [address] RF FACTORon 12-18-2022 RF FACTOR <9 Normal (0 - 12) [facility] Comment on above: Result Comment: RF F ACTOR = LESS THAN 9 IU/ML RF FACTOR MIN. DETECTION = 9 IU/ML. Performed By: #### C BC/2A, ESRCRP, CCP, HBC-M, HBSAG, HCV, CA, MG, RHF, URCA #### [facility] [address] [facility], [address] SED RATE - CRPon 12-18-2022 CRP EXTENDED RANGE 1.40 MG/L Normal (0.00 - 3.20) [facility] Comment on above: Performed By: #### C BC/2A, ESRCRP, CCP, HBC-M, HBSAG, HCV, CA, MG, RHF, URCA #### [facility] [address] [facility], [id number] SED RATE WEST. 5 MM/HR Normal (0 - 25) [facility] Comment on above: Performed By: #### C BC/2A, ESRCRP, CCP, HBC-M, HBSAG, HCV, CA, MG, RHF, URCA #### [facility] [address] [facility], [id number] URIC ACIDon 12-18-2022 Urate [Mass/Vol] 4.2 mg/dL Normal (2.5 - 6.2) [facility] Comment on above: Performed By: #### C BC/2A, ESRCRP, CCP, HBC-M, HBSAG, HCV, CA, MG, RHF, URCA #### [facility] [address] [facility], [address] PAP ACOG PANEL 2: 30 to 65on 11-16-2021 . . Normal [facility] Comment on above: Result Comment: Perf ormed at: [facility] Performed By: #### [id number] #### [facility] [address] [place] [address] Dr. Sierra Almonte Age Gdln ACOG Testing 30-65 Normal [facility] Comment on above: Performed By: #### [id number] #### [facility] [address] [place] [address] Dr. Sierra Almonte DIAGNOSIS: Comment Normal [facility] Comment on above: Result Comment: NEGA TIVE FOR INTRAEPITHELIAL LESION OR MALIGNANCY. Performed at: [facility] Performed By: #### [id number] #### [facility] [address] [address] [address] Sierra Almonte HPV Aptima Negative Normal Negative [facility] Comment on above: Result Comment: This nucleic acid amplification test detects fourteen high-risk HPV types (16,18,31,33,35,39,45,51,52,56,58,59,66,68) without differentiation. Performed at: =G Performed By: #### [id number] #### [facility] [facility] [address] [place] [address] Dr. Sierra Almonte Methodology: Comment Normal [facility] Comment on above: Result Comment: This liquid based ThinPrep(R) pap test was screened with the use of an image guided system. Performed at: [facility] Performed By: #### [id number] #### [facility] [address] [place] [address] Dr. Sierra Almonte Note: Comment Normal [facility] Comment on above: Result Comment: The Pap smear is a screening test designed to aid in the detection of premalignant and malignant conditions of the uterine cervix. It is not a diagnostic procedure and should not be used as the sole means of detecting cervical cancer. Both false-positive and false-negative reports do occur. . Performed at: [facility] Performed By: #### [id number] #### [facility] [address] [place] [address] Dr. Sierra Almonte Performed by: Comment Normal [facility] Comment on above: Result Comment: Alison Sapp, Pole Peeling Machine Operator (ASCP) Performed at: [facility] Performed By: #### [id number] #### [facility] [address] [place] [address] Dr. Sierra Almonte Specimen adequacy: Comment Normal [facility] Comment on above: Result Comment: Sati sfactory for evaluation. Endocervical and/or squamous metaplastic cells (endocervical component) are present. Performed at: [facility] Performed By: #### [id number] #### [facility] [address] [place] [address] Dr. Sierra Almonte US Thyroidon 07-14-2021 US [...] by Alexei Smith on 07/14/2021 1000 Normal [facility] Complete Blood Count with Au to Diffon 07-12-2021 Basophils (Bld) [#/Vol] 0.02 10*3/uL Normal 0.00-0.20 [facility] Specialist Comment on above: Performed By: #### C BCAD, RF, VITD, ESR, TSH reflex FT4, CMP, FT4 #### [facility] [address] [place], [place] [id number] Basophils/100 WBC (Bld) 0.3 % Normal [facility] Specialist Comment on above: Performed By: #### C BCAD, RF, VITD, ESR, TSH reflex FT4, CMP, FT4 #### [facility] [address] [place], [place] [id number] Eosinophils (Bld) [#/Vol] 0.08 10*3/uL Normal 0.02-0.50 [facility] Specialist Comment on above: Performed By: #### C BCAD, RF, VITD, ESR, TSH reflex FT4, CMP, FT4 #### [facility] [address] [place], [place] [id number] Eosinophils/100 WBC (Bld) 1.2 % Normal [facility] Specialist Comment on above: Performed By: #### C BCAD, RF, VITD, ESR, TSH reflex FT4, CMP, FT4 #### [facility] [address] [place], [place] [id number] Erythrocyte distribution width (RBC) [Ratio] 13.8 % Normal 11.0-15.0 [facility] Specialist Comment on above: Performed By: #### C BCAD, RF, VITD, ESR, TSH reflex FT4, CMP, FT4 #### [facility] [address] [place], [place] [id number] Hematocrit (Bld) [Volume fraction] 39.6 % Normal 35.0-47.0 [facility] Specialist Comment on above: Performed By: #### C BCAD, RF, VITD, ESR, TSH reflex FT4, CMP, FT4 #### [facility] [address] [place], [place] [id number] Hemoglobin (Bld) [Mass/Vol] 12.9 g/dL Normal 11.6-15.5 [facility] Specialist Comment on above: Performed By: #### C BCAD, RF, VITD, ESR, TSH reflex FT4, CMP, FT4 #### [facility] [address] [place], [place] [id number] Lymphocytes (Bld) [#/Vol] 1.3 10*3/uL Normal 0.9-3.9 [facility] Specialist Comment on above: Performed By: #### C BCAD, RF, VITD, ESR, TSH reflex FT4, CMP, FT4 #### [facility] [address] [place], [place] [id number] Lymphocytes/100 WBC (Bld) 20.3 % Normal [facility] Specialist Comment on above: Performed By: #### C BCAD, RF, VITD, ESR, TSH reflex FT4, CMP, FT4 #### [facility] [address] [place], [place] [id number] MCH (RBC) [Entitic mass] 28.3 pg Normal 27.0-33.0 [facility] Specialist Comment on above: Performed By: #### C BCAD, RF, VITD, ESR, TSH reflex FT4, CMP, FT4 #### [facility] [address] [place], [place] [id number] MCHC (RBC) [Mass/Vol] 32.6 g/dL Normal 32.0-36.0 [facility] Specialist Comment on above: Performed By: #### C BCAD, RF, VITD, ESR, TSH reflex FT4, CMP, FT4 #### [facility] [address] [place], [place] [id number] MCV (RBC) [Entitic vol] 87 fL Normal 80-100 [facility] Specialist Comment on above: Performed By: #### C BCAD, RF, VITD, ESR, TSH reflex FT4, CMP, FT4 #### [facility] [address] [place], [place] [id number] Monocytes (Bld) [#/Vol] 0.4 10*3/uL Normal 0.2-0.9 [facility] Specialist Comment on above: Performed By: #### C BCAD, RF, VITD, ESR, TSH reflex FT4, CMP, FT4 #### [facility] [address] [place], [place] [id number] Monocytes/100 WBC (Bld) 5.8 % Normal [facility] Specialist Comment on above: Performed By: #### C BCAD, RF, VITD, ESR, TSH reflex FT4, CMP, FT4 #### [facility] [address] [place], [place] [id number] Neutrophils (Bld) [#/Vol] 4.7 10*3/uL Normal 1.5-7.8 [facility] Technician Comment on above: Performed By: #### C BCAD, RF, VITD, ESR, TSH reflex FT4, CMP, FT4 #### [facility] [address] [place], [place] [id number] Neutrophils/100 WBC (Bld) 72.1 % Normal [facility] Specialist Comment on above: Performed By: #### C BCAD, RF, VITD, ESR, TSH reflex FT4, CMP, FT4 #### [facility] [address] [place], [place] [id number] Platelet mean volume (Bld) [Entitic vol] 11.00 fL Normal 7.50-12.50 [facility] Technician Comment on above: Performed By: #### C BCAD, RF, VITD, ESR, TSH reflex FT4, CMP, FT4 #### [facility] [address] [place], [place] [id number] Platelets (Bld) [#/Vol] 271 10*3/uL Normal 140-400 [facility] Technician Comment on above: Performed By: #### C BCAD, RF, VITD, ESR, TSH reflex FT4, CMP, FT4 #### [facility] [address] [place], [place] [id number] RBC (Bld) [#/Vol] 4.56 10*6/uL Normal 3.90-5.20 [facility] Laboratory Technician Comment on above: Performed By: #### C BCAD, RF, VITD, ESR, TSH reflex FT4, CMP, FT4 #### [facility] [address] [place], [place] [id number] RDW-SD 43.5 fL Normal 37.0-50.0 [facility] Technician Comment on above: Performed By: #### C BCAD, RF, VITD, ESR, TSH reflex FT4, CMP, FT4 #### [facility] [address] [place], [place] [id number] WBC (Bld) [#/Vol] 6.5 10*3/uL Normal 3.8-11.0 [place] Laboratory Technician Comment on above: Performed By: #### C BCAD, RF, VITD, ESR, TSH reflex FT4, CMP, FT4 #### [facility] [address] [place], [place] [id number] Comprehensive Metabolic [facility] 07-12-2021 Albumin [Mass/Vol] 4.9 g/dL Normal 3.6-5.1 [place] [facility] Laboratory Technician Comment on above: Performed By: #### C BCAD, RF, VITD, ESR, TSH reflex FT4, CMP, FT4 #### [facility] [address] [place], [place] [id number] Albumin/Globulin [Mass ratio] 2.2 {ratio} Normal 1.0-2.5 [facility] Technician Comment on above: Performed By: #### C BCAD, RF, VITD, ESR, TSH reflex FT4, CMP, FT4 #### [facility] [address] [place], [place] [id number] ALP [Catalytic activity/Vol] 63 U/L Normal 35-119 [facility] Specialist Comment on above: Performed By: #### C BCAD, RF, VITD, ESR, TSH reflex FT4, CMP, FT4 #### [facility] [address] [place], [place] [id number] ALT [Catalytic activity/Vol] 26 U/L Normal 6-33 [facility] Specialist Comment on above: Result Comment: 01/26 Female reference range changed. Performed By: #### C BCAD, RF, VITD, ESR, TSH reflex FT4, CMP, FT4 #### [facility] [address] [place], [place] [id number] Anion gap [Moles/Vol] 18 mmol/L Normal 12-20 [facility] Specialist Comment on above: Result Comment: Effe ctive 03/03/2019 reference range changed. Performed By: #### C BCAD, RF, VITD, ESR, TSH reflex FT4, CMP, FT4 #### [facility] [address] [place], [place] [id number] AST [Catalytic activity/Vol] 26 U/L Normal 9-34 [facility] Specialist Comment on above: Performed By: #### C BCAD, RF, VITD, ESR, TSH reflex FT4, CMP, FT4 #### [facility] [address] [place], [place] [id number] BUN/CREA 10 Ratio Normal 6-22 [facility] Specialist Comment on above: Performed By: #### C BCAD, RF, VITD, ESR, TSH reflex FT4, CMP, FT4 #### [facility] [address] [place], [place] [id number] Calcium [Mass/Vol] 10.0 mg/dL Normal 8.6-10.2 [facility] Comment on above: Performed By: #### C BCAD, RF, VITD, ESR, TSH reflex FT4, CMP, FT4 #### [facility] [address] [place], [place] [id number] Chloride [Moles/Vol] 105 mmol/L Normal 98-107 [facility] Specialist Comment on above: Performed By: #### C BCAD, RF, VITD, ESR, TSH reflex FT4, CMP, FT4 #### [facility] [address] [place], [place] [id number] CO2 [Moles/Vol] 21 mmol/L Normal 20-31 [facility] Comment on above: Performed By: #### C BCAD, RF, VITD, ESR, TSH reflex FT4, CMP, FT4 #### [facility] [address] [place], [place] [id number] Creatinine [Mass/Vol] 0.6 mg/dL Normal 0.6-1.4 [facility] Comment on above: Performed By: #### C BCAD, RF, VITD, ESR, TSH reflex FT4, CMP, FT4 #### [facility] [address] [place], [place] [id number] eGFRAA 132 mL/min/1.73m2 Normal >60 [facility] Comment on above: Performed By: #### C BCAD, RF, VITD, ESR, TSH reflex FT4, CMP, FT4 #### [facility] [address] [place], [place] [id number] eGFRNAA 109 mL/min/1.73m2 Normal >60 [facility] Comment on above: Performed By: #### C BCAD, RF, VITD, ESR, TSH reflex FT4, CMP, FT4 #### [facility] [address] [place], [place] [id number] Globulin (S) [Mass/Vol] 2.2 g/dL Normal 1.9-3.7 [facility] Comment on above: Performed By: #### C BCAD, RF, VITD, ESR, TSH reflex FT4, CMP, FT4 #### [facility] [address] [place], [place] [id number] Glucose [Mass/Vol] 86 mg/dL Normal 65-99 [facility] Comment on above: Result Comment: For FASTING Glucose --- ADA reference ranges: Normal 65-99 mg/dl Prediabetes 100-125 Diabetes >/= 126 Performed By: #### C BCAD, RF, VITD, ESR, TSH reflex FT4, CMP, FT4 #### [facility] [address] [place], [place] [id number] Potassium [Moles/Vol] 4.1 mmol/L Normal 3.5-5.5 [facility] Technician Comment on above: Performed By: #### C BCAD, RF, VITD, ESR, TSH reflex FT4, CMP, FT4 #### [facility] [address] [place], [place] [id number] Protein [Mass/Vol] 7.1 g/dL Normal 6.1-8.1 [facility] Techn[facility] Comment on above: Performed By: #### C BCAD, RF, VITD, ESR, TSH reflex FT4, CMP, FT4 #### [facility] [address] [place], [place] [id number] Sodium [Moles/Vol] 140 mmol/L Normal 135-146 [place] [facility] Techn[facility] Comment on above: Performed By: #### C BCAD, RF, VITD, ESR, TSH reflex FT4, CMP, FT4 #### [facility] [address] [place], [place] [id number] TBIL <0.3 Normal [facility] Technician Comment on above: Performed By: #### C BCAD, RF, VITD, ESR, TSH reflex FT4, CMP, FT4 #### [facility] [address] [place], [place] [id number] Urea nitrogen [Mass/Vol] 7 mg/dL Normal 7-25 [facility] Technician Comment on above: Performed By: #### C BCAD, RF, VITD, ESR, TSH reflex FT4, CMP, FT4 #### [facility] [address] [place], [place] [id number] Free T4on 07-12-2021 Free T4 [Mass/Vol] 0.93 ng/dL Normal 0.80-1.80 [place] [facility] Techn[facility] Comment on above: Performed By: #### C BCAD, RF, VITD, ESR, TSH reflex FT4, CMP, FT4 #### [facility] [address] [place], [place] [id number] Q - PASQUALE SCREEN IFA W/RFL TIT ER AND PATTERNon 07-12-2021 PASQUALE SCREEN, IFA Negative Normal NEGATIVE [facility] Techn[facility] Comment on above: Order Comment: [facility] performed at: [facility], [facility], [address], [address] [facility], [place], [address], Mineralogy Professor: Leonard Turpin MD [facility] Date/Time: [facility] [...] AC-0: Negative International Consensus on PASQUALE Patterns (https://doi.org/10.1515/gleh-9253-9222) For additional information, please refer to http://education.[employer]/faq/FKC650 (This link is being provided for informational/ educational purposes only.) Performed By: #### 2 49 #### [facility] [address] [place] [address] RBC Sedimentation Rateon ESR (Bld) [Velocity] 8.00 mm/h Normal 0.00-20.00 [facility] Specialist Comment on above: Performed By: #### C BCAD, RF, VITD, ESR, TSH reflex FT4, CMP, FT4 #### [facility] [address] [place] [id number] Rheumatoid Factoron 07-13-19 22 RF <10 Normal [facility] Specialist Comment on above: Performed By: #### C BCAD, RF, VITD, ESR, TSH reflex FT4, CMP, FT4 #### [facility] [address] [place] [id number] TSH w/ Reflex to Free T4on 0 07-12-2021 TSH 0.321 uIU/mL Low 0.400-4.500 [facility] Technician Comment on above: Performed By: #### C BCAD, RF, VITD, ESR, TSH reflex FT4, CMP, FT4 #### [facility] [address] [place], [place] [id number] Vitamin D 25-OHon 07-12-2021 VIT D 25 OH 19 ng/ml Low >29 [facility] Technician Comment on above: Result Comment: Ade min D Status Deficiency <20 ng/mL Insufficiency 20-29 ng/mL Optimal 30-100 ng/mL Possible Toxicity >=150 ng/mL Performed By: #### C BCAD, RF, VITD, ESR, TSH reflex FT4, CMP, FT4 #### [facility] [address] [place], [place] [id number] Comprehensive Metabolic Empo n 04-11-2021 Albumin [Mass/Vol] 4.6 g/dL Normal 3.2-5.5 [facility] Comment on above: Performed By: #### E BS CMP, EBS LIPID #### [facility] [address] [place] [address] [place] Albumin/Globulin [Mass ratio] 1.9 {ratio} Normal [facility] Comment on above: Performed By: #### E BS CMP, EBS LIPID #### [facility] [address] [place] [address] [place] ALP [Catalytic activity/Vol] 43 U/L Normal 32-92 [facility] Comment on above: Performed By: #### E BS CMP, EBS LIPID #### [facility] [address] [place] [address] [place] ALT [Catalytic activity/Vol] 17 U/L Normal 10-60 [facility] Comment on above: Performed By: #### E BS CMP, EBS LIPID #### [facility] [address] [place] [address] [place] AST [Catalytic activity/Vol] 20 U/L Normal 10-42 [facility] Comment on above: Performed By: #### E BS CMP, EBS LIPID #### [facility] [address] [place] [address] [place] Bilirubin [Mass/Vol] 1.1 mg/dL Normal 0.3-1.2 [facility] Comment on above: Performed By: #### E BS CMP, EBS LIPID #### [facility] [address] [place] [address] [place] Calcium [Mass/Vol] 9.6 mg/dL Normal 8.2-10.2 [facility] Comment on above: Performed By: #### E BS CMP, EBS LIPID #### [facility] [address] Chloride [Moles/Vol] 102 mmol/L Normal 95-114 [facility] Comment on above: Performed By: #### E BS CMP, EBS LIPID #### [facility] [address] CO2 [Moles/Vol] 21.4 mmol/L Low 22.0-30.0 [facility] Comment on above: Performed By: #### E BS CMP, EBS LIPID #### [address] Creatinine [Mass/Vol] 0.71 mg/dL Normal 0.44-1.03 [facility] Comment on above: Performed By: #### E BS CMP, EBS LIPID #### [address] Estimated GFR ( Michelle > 60 Normal [facility] Comment on above: Result Comment: GFR estimated reference range: According to KDOQI guidelines, <60 ml/min/1.73m2 is sufficient to diagnose a patient with chronic kidney disease. Performed By: #### E BS CMP, EBS LIPID #### [facility] [address] [place] [address] [place] Estimated GFR (Non- Am > 60 Normal [facility] Comment on above: Performed By: #### E BS CMP, EBS LIPID #### [facility] [address] [place] [address] [place] Globulin (S) [Mass/Vol] 2.4 g/dL Normal [facility] Comment on above: Performed By: #### E BS CMP, EBS LIPID #### [facility] [address] [place] [address] [place] Glucose [Mass/Vol] 76 mg/dL Normal 70-100 [facility] Comment on above: Performed By: #### E BS CMP, EBS LIPID #### [facility] [address] [place] [address] [place] Potassium [Moles/Vol] 3.3 mmol/L Low 3.5-5.1 [facility] Comment on above: Performed By: #### E BS CMP, EBS LIPID #### [facility] [address] [place] [address] [place] Protein [Mass/Vol] 7.0 g/dL Normal 6.1-7.9 [facility] Comment on above: Performed By: #### E BS CMP, EBS LIPID #### [facility] [address] [place] [id number] [place] Sodium [Moles/Vol] 136 mmol/L Normal 136-146 [facility] Comment on above: Performed By: #### E BS CMP, EBS LIPID #### [facility] [address] [place] [id number] [place] Urea nitrogen [Mass/Vol] 5 mg/dL Low 9-23 [facility] Comment on above: Performed By: #### E BS CMP, EBS LIPID #### [facility] [address] [place] [id number] [facility] Lipid Profileon 04-11-2021 Cholesterol [Mass/Vol] 189 mg/dL Normal 140-200 [facility] Comment on above: Result Comment: Chol less than 200 mg/dl low risk Chol 201-239 mg/dl borderline risk Chol 240 mg/dl and greater high risk Performed By: #### E BS CMP, EBS LIPID #### [facility] [address] [place] [id number] [place] Cholesterol in HDL [Mass/Vol] 69 mg/dL Normal 35-85 [facility] Comment on above: Result Comment: HDL CHOL ATP-III CLASSIFICATION Cardiovascular Risk HDL > or equal to 60 mg/dL LOW HDL < 40 mg/dL HIGH Performed By: #### E BS CMP, EBS LIPID #### [facility] [address] [place] [address] [place] Cholesterol.total/C holesterol in HDL [Mass ratio] 2.7 {ratio} Normal <5.0 [facility] Comment on above: Result Comment: PERF ORMED BY: [place] [address] PATHOLOGIST VICE PRESIDENT PAYMENT PAT PETERS M.D. Performed By: #### E BS CMP, EBS LIPID #### [address] LDL Cholesterol,Calcula shadi 107 mg/dL High 0-100 [facility] Comment on above: Result Comment: LDL ATP III CLASSIFICATION LDL less than 100 mg/dL Optimal LDL 100-129 mg/dL Near or above optimal LDL 130-159 mg/dL Borderline high LDL 160-189 mg/dL High LDL greater than 189 mg/dL Very high Performed By: #### E BS CMP, EBS LIPID #### [address] Triglyceride w/Reflex 64 mg/dL Normal 35-149 [facility] Comment on above: Result Comment: TRIG ATP III CLASSIFICATION TRIG less than 150 mg/dL Normal TRIG 150-199 mg/dL Borderline high TRIG 200-500 mg/dL High TRIG greater than 500 mg/dL Very high Standard traceable to the Center for Disease Conrtrol and Prevention (CDC) test method. Performed By: #### E BS CMP, EBS LIPID #### [facility] [address] [place] [address] VLDL CHOLESTEROL 12 mg/dL Normal [facility] Comment on above: Performed By: #### E BS CMP, EBS LIPID #### [address] Covid-19 PCR (CVDTB)on SARS-CoV-2 (COVID-19) RNA ERIC+probe Ql (Unsp spec) Detected Critically abnormal NOT DETECTED [facility] Comment on above: Result Comment: This test is not yet approved or cleared by the [place] FDA. When there are no FDA-approved or cleared tests available, and other criteria are met, FDA can make tests available under an emergency access mechanism called an Emergency Use Authorization (EUA). The EUA for this test is supported by the [place] of Health and Human Service's (HHS's) declaration [...] used). Performed By: #### C VDTBH #### [facility] [address] [place] [address] Dr. Sierra Almonte CHLAMYDIA/GONOCOCCUS ERIC (SW AB/URINE/PAPon 12-14-2020 Chlamydia trachomatis, ERIC Negative Normal Negative [facility] Comment on above: Performed By: #### C T/NGNA #### [facility] [address] [place] [address] Dr. Sierra Almonte Neisseria gonorrhoeae, ERIC Negative Normal Negative [facility] Comment on above: Performed By: #### C T/NGNA #### [facility] [address] [place] [address] Dr. Sierra Almonte VAGINITIS/VAGINOSIS DNA PROB Andrew 12-11-2020 Zaynab species Negative Normal Negative [facility] Comment on above: Performed By: #### V AGINT #### [facility] [address] [place] [address] Dr. Sierra Almonte Gardnerella vaginalis Positive Abnormal Negative [facility] Comment on above: Performed By: #### V AGINT #### [facility] [address] [place] [address] Dr. Sierra Almonte Trichomonas vaginalis Negative Normal Negative [facility] Comment on above: Performed By: #### V AGINT #### [facility] [address] [place] [address] Dr. Sierra Almonte Vital Signs Date Time Vital Sign Value Performing Clinician Faci lity 01-01-2024 11:40-0500 Body mass index (BMI) [Ratio] 25.78 kg/m2 Teresa Ornelas [employer] Work Phone: [facility] 01-01-2024 11:40-0500 Body weight 67.59 kg Teresa Ornelas [employer] Work Phone: [facility] 01-01-2024 11:40-0500 Diastolic blood pressure 82 mm[Hg] Teresa Arringtonor-Nossek [employer] Work Phone: [facility] 01-01-2024 11:40-0500 Heart rate 99 /min Teresa Jo Ann-Nossek [employer] Work Phone: [facility] 01-01-2024 11:40-0500 Systolic blood pressure 100 mm[Hg] Teresa Arringtonor-Nossek [employer] Work Phone: [facility] 11-28-2023 14:53-0400 Body mass index (BMI) [Ratio] 25.57 kg/m2 Eliud Christina DO Work Phone: [facility] 11-28-2023 14:53-0400 Body weight 67.04 kg Eliud Christina DO Work Phone: [facility] 11-28-2023 14:53-0400 Diastolic blood pressure 74 mm[Hg] Eliud Christina DO Work Phone: [facility] 11-28-2023 14:53-0400 Systolic blood pressure 114 mm[Hg] Eliud Christina DO Work Phone: [facility] Healthcare Encounters Encounter Date Encounter Type Care Provider Facility Start: 01-01-2024 End: 01-01-2024 Bamboo flowsheet Teresa Alonzo Jo Ann-Nossek [employer] Work Phone: [facility] Start: 01-01-2024 End: 01-01-2024 Bamboo flowsheet Teresa Cheri Jo Ann-Nossek [employer] Work Phone: [facility] Start: 01-01-2024 End: 01-01-2024 ambulatory TERESA Cheri JO ANN-NOSSEK Not Available Start: 01-01-2024 End: 01-01-2024 Office outpatient visit 25 minutes Teresa Cheri Jo Ann-Nossek [employer] Work Phone: [facility] Comment on above: Generalized anxiety disorder (CMS/HCC) (Primary Dx) Start: 11-28-2023 End: 11-28-2023 Office outpatient visit 15 minutes Eliud Christina DO Work Phone: [facility] Comment on above: First trimester preg anahy Start: 11-28-2023 End: 11-28-2023 ambulatory ELIUD CHRISTINA Not Available Start: 11-28-2023 End: 11-28-2023 Bamboo flowsheet Eliud Christina DO Work Phone: [facility] Start: 11-28-2023 End: 11-28-2023 Bamboo flowsheet Leiud Christina DO Work Phone: [facility] Start: 11-28-2023 End: 11-28-2023 Clinisync Result Encounter Generic External Data Provider [facility] External Department Unsolicited Start: 11-27-2023 End: 11-27-2023 Office outpatient visit 15 minutes Teresa Cherry-Adrianne [employer] Work Phone: [facility] Comment on above: Attention deficit hy peractivity disorder (ADHD), combined type (CMS/HCC); Generalized anxiety disorder (CMS/HCC) Start: 11-27-2023 End: 11-27-2023 ambulatory TERESA ARRINGTONOR-NOSSEK Not Available Start: 11-01-2023 End: 11-01-2023 ambulatory TERESA JO ANN-NOSSEK Not Available Start: 10-18-2023 End: 10-18-2023 ambulatory YSABEL CABRAL Not Available Start: 10-18-2023 End: 10-18-2023 Office outpatient visit 25 minutes Evonne Childress DO Work Phone: [facility] [place] Comment on above: 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) (Primary Dx); Generalized anxiety disorder (CMS/HCC); Primary insomnia; , unspecified gestational age Start: 09-25-2023 End: 09-25-2023 ambulatory YSABEL CABRAL Not Available Start: 09-25-2023 End: 09-25-2023 ambulatory TERESA Cheri JO ANN-NOSSEK Not Available Start: 2023 End: 2023 ambulatory YSABEL CABRAL Not Available Start: 08-21-2023 End: 08-21-2023 ambulatory YSABEL CABRAL Not Available Start: 08-16-2023 End: 08-16-2023 ambulatory AIDAN R WEI Not Available Start: 08-10-2023 End: 08-10-2023 ambulatory YSABEL CABRAL Not Available Start: 08-07-2023 End: 08-07-2023 ambulatory TERESA Alonzo JO ANN-NOSSEK Not Available Start: 06-28-2023 End: 06-28-2023 ambulatory EVONNE CHILDRESS Not Available Start: 06-20-2023 End: 06-20-2023 ambulatory TERESA Alonzo JO ANN-NOSSEK Not Available Start: 06-11-2023 End: 06-11-2023 ambulatory TERESA Alonzo JO ANN-NOSSEK Not Available Start: 03-21-2023 End: 03-21-2023 ambulatory TERESA Alonzo JO ANN-NOSSEK Not Available Start: 02-14-2023 End: 02-14-2023 ambulatory TERESA Alonzo JO ANN-NOSSEK Not Available Start: 01-17-2023 End: 01-17-2023 ambulatory TERESA Cheri JO ANN-NOSSEK Not Available Start: 11-09-2021 End: 11-09-[address] TALITA DODSON Facility:[facility]1 Start: 05-11-2021 ([facility] C Vac) [facility] Co vid Vaccine Vicky Joe [facility] Start: 05-11-2021 End: 05-11-2021 ambulatory Vicky Joe Other [facility] [employer] Other Start: 03-01-2021 End: 03-01-2021 ambulatory AIDAN CARVAJAL Facility:[facility]1 Start: 12-10-2020 End: 12-10-[address] TALITA DODSON Facility:[facility]1 Procedures Date Procedure Procedure Detail Performing Clinician Start: 11-28-2023 ALL CBC WITH AUTO DIFF Eliud Vasquez DO Work Phone: Start: 11-28-2023 Urnls dip stick/tabl et rgnt non-auto w/o micrscp Eliud Vasquez DO Work Phone: Start: 12-18-2022 Cyclic citrullinated peptide antibody Comment on above: Performed By: #### C BC/2A, ESRCRP, CCP, HBC-M, HBSAG, HCV, CA, MG, RHF, URCA #### [facility] [address] [place], [address] Plan of Treatment Date Care Activity Detail Author Start: 04-02-2024 End: 04-02-2024 Patient encounter procedure 04/02/2024 11:00 AM EST Office Visit [facility] [address] [facility] [address] [place] [phone] Teresa Ornelas, [employer] [address] [facility] [address] [place] [id number] [facility] Start: 01-03-2024 End: 01-03-2024 Patient encounter procedure 01/03/2024 11:20 AM EST Routine [facility] [address] [place] [id number] Eliud Vasquez, DO [address] [place] [address] [facility] Start: 01-01-2024 End: 01-01-2024 Patient encounter procedure 01/01/2024 11:30 AM EST Office Visit [facility] [address] [facility] [address] [place] [phone] Teresa Ornelas, [employer] [address] [facility] [address] [place] [address] [facility] Start: 12-18-2023 End: 12-18-2023 Patient encounter procedure 12/18/2023 5:30 PM EDT Office Visit [facility] [address] [place] [address] Evonne Childress DO [address] [place] [address] [facility] [address] Start: 11-28-2023 End: 11-28-2023 Patient encounter procedure 11/28/2023 2:20 PM EDT Routine [facility] [address] [place] [address] Eliud Vasquez DO [address] [facility] [address] [place] [address] [facility] Start: 10-28-2023 Influenza vaccination Influenza Vaccine (#1) [facility] Start: 09-10-2017 Screening for malignant neoplasm of cervix [facility] Start: 09-10-2008 Screening for malignant neoplasm of cervix Pap Smear [facility] Immunizations Immunization Date Immunization Notes Care Provider [facility] 05-11-2021 COVID-19 En Joe Other [employer] Other 10-02-2016 influenza, injectabl e, quadrivalent, preservative free Teresa Jo Ann-Nossek [employer] Work Phone: [facility] 10-02-2016 influenza virus vaccine, unspecified formulation Teresa Jo Ann-Nossek [employer] Work Phone: [facility] 10-13-2015 influenza, injectabl e, quadrivalent, preservative free Teresa Jo Ann-Nossek [employer] Work Phone: [facility] 12-02-2014 influenza, seasonal, injectable, preservative free Teresa Jo Ann-Nossek [employer] Work Phone: [facility] Healthcare Payers Date Payer Category Payer Medicaid [employer] [place] [id number] 2021-Present [address] [place] [address] [id number] 2021 Medicaid (Managed Care) [facility] MEDICAID [id number] 1987 Unknown [id number] 2.16840.1.759120.3.579.2. 59 1987 Unknown [id number] 2.16840.1.537301.3.579.2. 59 1987 Unknown [id number] 2.16840.1.955911.3.579.2. 59 1987 Unknown [id number] 2.16.840.1.828202.3.579.2. 1258 1987 Unknown [id number] 2.16840.1.329342.3.579.2. 1258 1987 Unknown [id number] 2.16.840.1.499095.3.579.2. 1258 1987 Unknown [id number] 2.16840.1.810543.3.579.2. 1258 1987 Unknown [id number] 2.16.840.1.661614.3.579.2. 1258 1987 Unknown [id number] 2.16.840.1.002372.3.579.2. 1258 1987 Unknown [id number] 2.16.840.1.036386.3.579.2. 1258 1987 Unknown [id number] 2.16840.1.668197.3.579.2. 1258 1987 Unknown [id number] 2.16.840.1.884362.3.579.2. 1258 1987 Unknown [id number] 2.16.840.1.694860.3.579.2. 1258 1987 Unknown [id number] 2.16.840.1.197369.3.579.2. 1258 1987 Unknown [id number] 2.16.840.1.758919.3.579.2. 1258 1987 Unknown [id number] 2.16.840.1.414292.3.579.2. 1258 1987 Unknown [id number] 2.16.840.1.524270.3.579.2. 1258 1987 Unknown [id number] 2.16.840.1.157393.3.579.2. 1258 1987 Unknown [id number] 2.16.840.1.507331.3.579.2. 1258 1987 Unknown [id number] 2.16.840.1.048344.3.579.2. 1258 1987 Unknown [id number] 2.16.840.1.988577.3.579.2. 1258 1987 Unknown [id number] 2.16.840.1.821233.3.579.2. 1258 1987 Unknown [id number] 2.16.840.1.879193.3.579.2. 1258 1959 Unknown [id number] 2.16.840.1.006605.19 Social History Date Type Detail Facility Unknown if ever smoked [employer] Other Start: 2022 End: 01-01-2024 Sex Assigned At [facility] Other Start: 12-22-2022 Tobacco smoking stat [facility] Never smoked tobacco [facility] Start: 12-22-2022 Tobacco use and exposure Smokeless tobacco non-user [facility] Start: 10-18-2023 End: 11-01-2023 Alcoholic beverage intake Current drinker of alcohol (finding) [facility] Start: 11-01-2023 End: 01-01-2024 Alcoholic beverage intake [facility] How often [...] at Not on file [facility] Start: 01-01-2024 Alcoholic beverage intake Ex-drinker (finding) [facility] Start: 01-01-2024 Alcohol Comment I have a glass of wine or 2 glasses each evening with dinner [facility] Clinical Notes 05-11-2021 to 01-01-2024 Teresa Ornelas, PURSE MAKER-[facility] - 01/01/2024 11:30 AM Christine Lundberg, CARDIOVASCULAR TECH - 11/28/2023 2:20 PM Sarah Ornelas, [facility] - 11/27/2023 11:00 AM EDTEvonne Childress DO - 10/18/2023 10:30 AM EDT Note Date & Type Note Facility 01-01-2024 History of Present illness Narrative Images from the original note were not included. Tiki Matson is a 38 y.o. female presents for Medication Management. HPI: Patient is here for medication follow up. Patient has improved since last appt. Mood is reported as not depressed. Anxiety is under control. Sleeping Medication compliant. No reported side effects. Taking zoloft. Denies abuse of substances. Medical problems since last visit. 20 weeks. 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 Psychosocial stressors include . SUBJECTIVE: PAST MEDICAL HISTORY: Past Medical History: Diagnosis Date Adenoma of left breast removed 2013 ADHD (attention deficit hyperactivity disorder) ([facility]/HCC) Anemia Anxiety Asthma ([facility]) Back pain Common migraine ([facility]) 08/17/2015 Depression ([facility]) H/O colonoscopy 2012 H/O umbilical hernia repair 2008 Headache 08/17/2015 Inadequate sleep hygiene 04/23/2018 Insomnia 06/25/2017 Migraine ([facility]) 03/22/2017 Migraines ([facility]) Nausea with vomiting 08/17/2015 Pain in limb [...] clear, regular rate, rhythm and volume Affect full affect appropriate with mood Mood euthymic Thought Process Organized and Clear Thought Content No Suicidal Ideation and No Homicidal ideation Perception No perceptual abnormalities noted Orientation Appropriate to age, Person, Place, and Time Memory/Concentration Short term intact and retirement intact Insight/Judgement Fair OBJECTIVE: Visit Vitals LMP 09/01/2023 OB Status [...] 214 (H) 12/22/2022 ASSESSMENT AND PLAN: Assessment/Plan Attention deficit hyperactivity disorder (ADHD), combined type (CMS/HCC) Episodic mood disorder (CMS/HCC) Generalized anxiety disorder (CMS/HCC) Psych Medication List Zoloft 50mg po every day Supportive counseling Regarding F/U 3months Patient was seen Face to Face, Reviewed chart documents and documentation, Visit time :32min documented in this encounter [facility] 11-28-2023 History of Present illness Narrative Reason for Appointment: Patient ID: Tiki Matson is a 38 y.o. female who presents for Routine Visit Patient presents today for Return OB appointment. MEDICATIONS Current Outpatient Medications Medication Instructions albuterol HFA (ProAir HFA) 90 mcg/act inhaler Cyanocobalamin 2500 MCG sublingual tablet Every 24 hours D3-1000 25 MCG (1000 UT) tablet TAKE 1 TABLET BY MOUTH EVERY DAY FOR 90 DAYS fluticasone (Flonase) 50 MCG/ACT nasal spray 1 spray, Nasal, Daily magnesium 200 mg, Oral, Daily onabotulinumtoxinA (Botox) 200 units injection promethazine (PHENERGAN) 12.5 mg, Oral, Every 6 hours PRN, Take 1 tablet by mouth every 6 hours as needed for nausea. sertraline (ZOLOFT) 50 mg, Oral, Daily sertraline (ZOLOFT) 50 mg, Oral, Daily tiZANidine (Zanaflex) 4 MG tablet Every 24 hours ALLERGIES Allergies Allergen Reactions Amitriptyline Other Reaction(s): Other (See Comments) Extreme drowsiness Aspirin Other Reaction(s): hives,difficulty breathing Cyclobenzaprine Diclofenac Unknown Ibuprofen Other Reaction(s): All NSAIDS, hives Lamotrigine Other Reaction(s): rash-per patient report Meloxicam Unknown Naproxen Unknown Nsaids Other Reaction(s): Unknown PROBLEMS Active Ambulatory Problems Diagnosis Date Noted Attention deficit hyperactivity disorder (ADHD), combined type ([facility]) 07/04/2022 Episodic mood disorder ([facility]) 07/04/2022 Generalized anxiety disorder ([facility]) 07/04/2022 Panic disorder ([facility]) 07/04/2022 Acquired scoliosis 09/09/2016 Allergic rhinitis 10/16/2019 Anxiety 01/31/2020 Asthma ([facility]) 12/31/2014 Chronic fatigue syndrome 07/03/2016 Chronic gastritis without bleeding 12/28/2022 Irritable bowel syndrome 07/03/2016 Migraine without aura and without status migrainosus, not intractable ([facility]) 09/19/2017 Mild intermittent asthma ([facility]) 02/28/2021 Primary localized osteoarthrosis of ankle and foot 03/13/2019 Vitamin D deficiency 12/28/2022 Headache 06/28/2023 Inadequate sleep hygiene 06/28/2023 Migraine ([facility]) 06/28/2023 Tenosynovitis of foot 06/28/2023 Nausea and vomiting 06/28/2023 Common migraine with intractable migraine ([facility]) 06/28/2023 Pain in limb 06/28/2023 Chronic tension-type headache, not intractable 06/28/2023 Sleep disturbance 06/28/2023 Insomnia, unspecified 06/28/2023 Other problems related to lifestyle 06/28/2023 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 08/10/2023 Resolved Ambulatory Problems Diagnosis Date Noted No Resolved Ambulatory Problems Past Medical History: Diagnosis Date Adenoma of left breast ADHD (attention deficit hyperactivity disorder) ([facility]) Anemia Back pain Common migraine ([facility]) 08/17/2015 Depression ([facility]) H/O colonoscopy H/O umbilical hernia repair Insomnia 06/25/2017 Migraines ([facility]) Nausea with vomiting 08/17/2015 Tendonitis of right hand Tension headache 08/17/2015 HISTORY PAST MEDICAL HISTORY SOCIAL HISTORY Past Medical History: Diagnosis Date Adenoma of left breast removed 2013 ADHD (attention deficit hyperactivity disorder) ([facility]) Anemia Anxiety Asthma ([facility]) Back pain Common migraine ([facility]) 08/17/2015 Depression ([facility]) H/O colonoscopy 2012 H/O umbilical hernia repair 2008 Headache 08/17/2015 Inadequate sleep hygiene 04/23/2018 Insomnia 06/25/2017 Migraine ([facility]) 03/22/2017 Migraines ([facility]) Nausea with vomiting 08/17/2015 Pain in limb 08/20/2014 Sleep disturbance 11/30/2016 Tendonitis of right hand Tenosynovitis of foot 08/20/2014 Tension headache 08/17/2015 Vitamin D deficiency Social History Tobacco Use Smoking status: Never Smokeless tobacco: Never Tobacco comments: Vapes daily Vaping Use Vaping status: Every Day Substances: Nicotine, Flavoring Devices: Disposable Substance Use Topics Alcohol use: Yes Alcohol/week: 12.0 standard drinks of alcohol Types: 6 Glasses of wine, 6 Standard drinks or equivalent per week Comment: cup coffee day Drug use: Not Currently Types: Benzodiazepines FAMILY HISTORY Family History Problem Relation Name Age of Onset Depression Mother Anxiety disorder Mother Hyperlipidemia Mother Sarcoidosis Mother Migraines Mother Rheum arthritis Father Depression Father Alcohol abuse Father Stroke Father Asthma Other SURGICAL HISTORY Past Surgical History: Procedure Laterality Date BREAST SURGERY Left 12/2013 adenoma removed left breast COLONOSCOPY 06/25/2017 COLPOSCOPY 2013 LEG SURGERY 09/2014 tibial and fibular sesmoid removal TIBIA FRACTURE SURGERY Left 2019 tibial sesmoid removal UMBILICAL HERNIA REPAIR 2008 WISDOM TOOTH EXTRACTION 06/15/2017 REVIEW OF SYSTEMS Review of Systems: Review of Systems Constitutional: Negative. HENT: Negative. Eyes: Negative. Respiratory: Negative. Cardiovascular: Negative. Gastrointestinal: Negative. Genitourinary: Negative. Musculoskeletal: Negative. Skin: Negative. Neurological: Negative. All other systems reviewed and are negative. Hematological: Negative. Endocrine: Negative. Allergic/Immunologic: Negative. OBJECTIVE Objective: Physical Exam Constitutional: Appearance: Normal appearance. She is well-developed. Cardiovascular: Rate and Rhythm: Normal rate and regular rhythm. Pulmonary: Effort: Pulmonary effort is normal. Breath sounds: Normal breath sounds. Abdominal: General: Bowel sounds are normal. There is no distension. Palpations: Abdomen is soft. Tenderness: There is no abdominal tenderness. There is no guarding or rebound. Musculoskeletal: General: No swelling. Normal range of motion. Right lower leg: No edema. Left lower leg: No edema. Neurological: Mental Status: She is alert and oriented to person, place, and time. Skin: General: Skin is warm and dry. Psychiatric: Mood and Affect: Mood normal. Behavior: Behavior normal. Vitals and nursing note reviewed. Exam conducted with a descriptive catalog librarian present. Vitals: Estimated body mass index is 25.57 kg/m as calculated from the following: Height as of 10/18/23: 5' 3.75 . Weight as of this encounter: 147 lb 12.8 oz. BP: 114/74 Patient's last menstrual period was 09/01/2023. ASSESSMENT & PLAN ICD-10-CM 1. First trimester Z34.91 POCT urinalysis dipstick manually resulted New OB: Patient presents today for 1st time obstetrics appointment with provider. Patient is currently 12w4d . Patients history has been reviewed in great detail including any potential risks. Patient stated she currently has complaints of nausea pt declines medication. Expectations throughout regarding labs, ultrasounds, and appointments have been discussed with the patient in detail. It was reiterated that the patient is to drink 6-8 glasses of water a day, eat 6 small meals a day, do not consume raw or undercooked meat, and stay away from [facility]. Patient has been consulted regarding any further do's and don'ts of . Patient voiced understanding and all questions and concerns were answered. Pt doing unity. Will do growth and NST/BPP for AMA. Pt offered MFM for AMA, pt defers at this time. Orders Placed This Encounter Procedures POCT urinalysis dipstick manually resulted Follow Up: Patient is to return in 4 weeks for routine OB appointment. Documented by Shelli Lundberg LPN on behalf of: Eliud Vasquez DO documented in this encounter [facility] 11-27-2023 History of Present illness Narrative Images from the original note [...] work done. 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 [employer]. Psychosocial stressors include . SUBJECTIVE: PAST MEDICAL HISTORY: Past Medical History: Diagnosis Date Adenoma of left breast removed 2013 ADHD (attention deficit hyperactivity disorder) ([facility]) Anemia Anxiety Asthma ([facility]) Back pain Common migraine ([facility]) 08/17/2015 Depression ([facility]) H/O colonoscopy 2012 H/O umbilical hernia repair 2007 Headache 08/17/2015 Inadequate sleep hygiene 04/23/2018 Insomnia 06/25/2017 Migraine ([facility]) 03/22/2017 Migraines ([facility]) Nausea with vomiting 08/17/2015 Pain in limb [...] and Time Memory/Concentration Short term intact and 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 Subjective Tiki Matson is a 38 y.o. female. Patient was to be seen for botox injections but she just found out that she is . She was not planning but not preventing . She still has to see her parking garage manager. She has been receiving the Botox injections and these have been working well for her. Her headaches are about the same at this point in time. The medication is starting to wear off. At this time she was counseled that is not FDA approved to be used during and there is different seen opinions. She has not had any worsening just yet. She has multiple other children and had variable change in her migraines and headaches during those pregnancies. 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 Objective Neurological Exam Physical Exam No chief complaint on file. Subjective Tiki Matson, 38 y.o., female HPI Past Medical History: Diagnosis Date Adenoma of left breast removed 2013 ADHD (attention deficit hyperactivity disorder) (CMS/HCC) Anemia Anxiety Asthma (CMS/HCC) Back pain Common migraine (CMS/HCC) 08/17/2015 Depression (CMS/HCC) H/O colonoscopy 2012 H/O umbilical hernia repair 2007 Headache 08/17/2015 Inadequate sleep hygiene 04/23/2018 Insomnia 06/25/2017 Migraine (CMS/HCC) 03/22/2017 Migraines (CMS/HCC) Nausea with vomiting 08/17/2015 Pain in limb 08/20/2014 Sleep disturbance 11/30/2016 Tendonitis of right hand Tenosynovitis of foot 08/20/2014 Tension headache 08/17/2015 Vitamin D deficiency Past Surgical History: Procedure Laterality Date BREAST SURGERY Left 12/2013 adenoma removed left breast COLONOSCOPY 06/25/2017 COLPOSCOPY 2013 LEG SURGERY 09/2014 tibial and fibular sesmoid removal TIBIA FRACTURE SURGERY Left 2019 tibial sesmoid removal UMBILICAL HERNIA REPAIR 2008 WISDOM TOOTH EXTRACTION 06/15/2017 Family History Problem Relation Name Age of Onset Depression Mother Anxiety disorder Mother Hyperlipidemia Mother Sarcoidosis Mother Migraines Mother Rheum arthritis Father Depression Father Alcohol abuse Father Stroke Father Asthma Other Social History Tobacco Use Smoking status: Never Smokeless tobacco: Never Tobacco comments: Vapes daily Substance Use Topics Alcohol use: Yes Alcohol/week: 12.0 standard drinks of alcohol Types: 6 Glasses of wine, 6 Standard drinks or equivalent per week Comment: cup coffee day Allergies: Amitriptyline, Aspirin, Cyclobenzaprine, Diclofenac, Ibuprofen, Lamotrigine, Meloxicam, Naproxen, and Nsaids General: No fever or chills HEENT: No nasal congestion or runny nose Pulmonary: No shortness of breath or cough Cardiovascular: No chest pain or palpitations GI: No nausea or vomiting : No dysuria or hematuria Musculoskeletal: No new aches or pains or muscle weakness Infectious: no recurrent fevers or infections Dermatologic: No rashes or skin lesions Neurologic: No new headaches or dizziness There were no vitals filed for this visit.There is no height or weight on file to calculate BMI. Vitals were stable. Neurologic exam: General: Normal body habitus, cooperative, pleasant Mental status: Awake, alert to person, place and time. Recent and remote memory are intact. Attention and concentration are normal. Fund of knowledge is appropriate for level of education. HEENT: NC/AT Cranial nerves: CN II: Visual lucero full to confrontation. No loss of vision CN III, IV, : pupils equal round and reactive to light. Extraocular movements intact. No ptosis present. CN V: Facial sensation is normal. CN VII: Full and symmetric facial movement. CN VIII: Hearing is normal CN IX and X: Palate elevates symmetrically. CN XI: Shoulder shrug is normal bilaterally. CN XII: Tongue is midline without atrophy or fasciculation. Speech: Clear and fluent no aphasia or dysarthria Pronator drift: Negative bilateral upper extremity Coordination: Intact, no signs of dysmetria Good finger to nose and rapid alternating movements Sensory: Sensation is intact to light, temperature and vibratory touch throughout four extremities. Motor: LUE 5/5 RUE 5/5 LLE 5/5 RLE 5/5 Tone: Physiologic, no tremor, bradykinesia or rigidity DTR: Bilateral Biceps 2/4 Bilateral BR 2/4 Bilateral Patellar 2/4 No spasticity Gait: Normal to casual gait Romberg's Negative Review and summary of old records: Assessment/Plan Diagnoses and all orders for this visit: 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) Generalized anxiety disorder (CMS/HCC) Primary insomnia , unspecified gestational age [age] year old female with chronic migraine that are intractable without the botox and have been refractory to medications. She does respond well to botox injections. She just found out that she is . She was counseled that botox is not approved during . It is best to see what her migraines do off of the botox injections. In some people migraines improve during , some worsen and some stay the same. Since there are no major studies to prove Botox safety in . She needs to stop her meds and use tylenol for now. Many of her migraines are triggered by the stress in her life. She needs to try to minimize stressors. She can have insomnia at times that trigger the migraines She can get nausea and vomiting with the migraines Her anxiety can be an issue. Plan: DC meds Use tylenol for migraine Add in Magnesium for migraine prevention Stay hydrated Minimize stressors Be sure to get adequate hours of sleep Regular low impact exercise The diagnosis was all discussed with the patient. All questions were answered and they agreed with the treatment plan. Patient will call if there are any new issues or questions. Pt has been fully educated on their diagnosis, treatment options, follow up plan, and return instructions Return to clinic: documented in this encounter [facility] 08-03-2021 Note FINDINGS: Sonographic evaluation targeted to the painful palpable areas within the right breast. Multiple subcentimeter benign simple cysts within the right upper quadrant. Mild periareolar ductal dilatation (3-4 mm diameter). No suspicious solid nodule or mass. IMPRESSION: BI RADS 2 : BENIGN FINDINGS Report reported and signed by Alexei Smith on 08/03/2021 [address] [facility] Techn[facility] 05-11-2021 Evaluation note Encounter Date Diagnosis Assessment Notes Apr, Encounter for immunization (ICD-10 - Z23) Patient presents for COVID-19 vaccination #2. Pre-screening form answers evaluated with patient. Patient denies current illness or allergic reaction to component of COVID-19 vaccine. Patient provided with current copy of [employer] Other Evaluation note* Diagnosis Attention deficit hyperactivity disorder (ADHD), combined type (CMS/HCC) Generalized anxiety disorder (CMS/HCC) Generalized anxiety disorder [facility] Diagnosis First trimester state, incidental [facility] Diagnosis 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)- Primary Generalized anxiety disorder (CMS/HCC) Generalized anxiety disorder Primary insomnia Persistent disorder of initiating or maintaining sleep , unspecified gestational age [facility] Diagnosis Generalized anxiety disorder (CMS/HCC)- Primary Generalized anxiety disorder [facility] Narrative - Reported* Type Description Date Medical History DEPRESSIVE DISORDER Medical History ASTHMA Medical History ANXIETY Medical History MIGRAINES Medical History BIPOLAR Medical History BACK PAIN Medical History ANEMIA Surgical History umbilical herniorrhaphy 2007 Surgical History colposcopy 2012 Surgical History adenoma removed from left breas t Surgical History tibial and fibular sesmoid 10-15 [employer] Other Summary Purpose Family History No Family History Records FoundNo Family History Records FoundNo Family History Records FoundNo Family History Records FoundNo Family History Records Found Advance Directives No Advanced Directives Records FoundNo Advanced Directives Records FoundNo Advanced Directives Records FoundNo Advanced Directives Records FoundNo Advanced Directives Records Found Additional Source Comments INFORMATION SOURCE (unrecogn ized section and content) DATE CREATED AUTHOR 05/25/2021 [facility] DATE CREATED AUTHOR AUTHOR'S ORGANIZ ATION 08/04/2021 [facility] dical Specialist DATE CREATED AUTHOR AUTHOR'S ORGANIZ ATION 11/23/2021 [facility] DATE CREATED AUTHOR AUTHOR'S ORGANIZ ATION 12/19/2022 [facility] DATE CREATED AUTHOR AUTHOR'S ORGANIZ ATION 01/02/2024 [facility] dical Specialists EPIC REASON FOR VISIT (unrecogniz ed section and content) Reason Comments Routine Visit Reason Comments Med Management Follow-up Care Teams (unrecognized sec tion and content) Avionics System Engineer Relationship Specialty Start Date End Date Ysabel Cabral MD [address] [place] [address] PCP - General Family Medicine 07/29/22 Ale Zaldivar MD [address] [place] [address] PCP - [facility] 05/28/23 Avionics System Engineer Relationship Specialty Start Date End Date Ysabel Cabral MD [address] [place] [address] PCP - General Family [facility] 07/29/22 Ale Zaldivar MD [address] [place] [address] PCP - [facility] 05/28/23 Avionics System Engineer Relationship Specialty Start Date End Date Ysabel Cabral MD [address] [place] [address] PCP - [facility] 07/29/22 Ale Zaldivar MD [address] [place] [address] PCP - [facility] 05/28/23 Avionics System Engineer Relationship Specialty Start Date End Date Ysabel Cabral MD [address] [place] [address] PCP - General Family [facility] 07/29/22 Ale Zaldivar MD [address] [place] [address] PCP - [facility] 05/28/23 Avionics System Engineer Relationship Specialty Start Date End Date Ysabel Cabral MD [address] [place] [address] PCP - General Family Medicine 07/29/22 Ale Zaldivar MD [address] [facility] [place] [address] PCP - [facility] 05/28/23 Avionics System Engineer Relationship Specialty Start Date End Date Ysabel Cabral MD [address] [facility] [place], [place] [id number] PCP - General Family Medicine 07/29/22 Ale Zaldivar MD [address] [facility] [place], [place] [phone] PCP - [facility] 05/28/23 FOR RECORDS PERTAINING TO PATIENTS [...] BE BASED ON THE PRIMARY CLINICAL RECORDS. [facility] [employer] [facility]. provides no warranty or guarantee of the accuracy or completeness of information in this document.
== END 2024-01-10 20:29 | disposition home or self-care (01) ==
LOC: LAB 20:28
PROVIDERS: PCP Family Medicine; Visit Provider Obstetrics & Gynecology
DX: Z01.419 Encounter for gynecological examination (general) (routine) without abnormal findings (principal)
CPT/HCPCS: 88175

== ENCOUNTER 2024-01-28 11:07 | Outpatient (OUT) | payer OTHER, SELFPAY ==
--- NOTE | 2024-01-28 11:09 | US_ITS ---
[address] [address] Patient Name: JESSICA MOELLER MRN: [id number] date: 1985 Sex: F Assigned Patient Location: [facility] Current Patient Location: Accession/Order Number: [id number] Exam Date: 01/28/2024 11:10 Report Date: 01/29/2024 04:37 At the request of: ELIUD RIVERO Procedure: US OB anatomy EXAMINATION: US OB anatomy, US OB cervical length HISTORY: ANATOMY COMPARISON: Ultrasound OB transvaginal 11/01/2023 TECHNIQUE: Transabdominal sonographic examination was performed for obstetrical and evaluation. FINDINGS: Number: 1 Heart Rate: 148 bpm H.B. /min Amniotic Fluid Volume: Subjectively normal. Placental Location: ANTERIOR with lower margin 5.8 cm from os. Cervix Length: 4.60 cm ; closed. ANATOMY: Normal Structures -cerebellum, choroid plexus, cisterna magna, lateral cerebral ventricles, orbits, midline falx, hard palate, four-chamber heart, RVOT, LVOT, stomach, kidneys, bladder, umbilical cord insertion into abdomen, three-vessel cord, cervical spine, thoracic spine, lumbar spine, sacral spine, right upper extremity, left upper extremity, right lower extremity, left lower extremity. SUBOPTIMALLY SEEN: None ABNORMALITIES: None BIOMETRY: BPD: 5.25 cm; 22 weeks 0 days; 73.80 % HC: 19.66 cm; 21 weeks 6 days; 65.30 % AC: 16.94 cm; 21 weeks 0 days; 64.30 % FL: 3.74 cm; 21 weeks 6 days; 63.30 % EFW:463.68 g; 78 % FL/AC: 22.08 FL/BPD: 71.24 HC/AC: 1.16 GESTATIONAL AGE: Age by EDC: 21 weeks 2 days Age by current US: 22 weeks 0 days RINA by current US: 2024-06-02 RINA by EDC: 2024-06-07 US/US OB anatomy IMPRESSION: 1. Single live intrauterine with growth detailed above. Electronically authenticated by: MICHAEL ORTEGA Date: 01/29/2024 04:37
--- NOTE | 2024-01-28 11:09 | US_ITS ---
[address] [address] Patient Name: JESSICA MOELLER MRN: [id number] date: 1985 Sex: F Assigned Patient Location: [facility] Current Patient Location: Accession/Order Number: [id number] Exam Date: 01/28/2024 11:10 Report Date: 01/29/2024 04:37 At the request of: ELIUD RIVERO Procedure: US OB cervical length EXAMINATION: US OB anatomy, US OB cervical length HISTORY: ANATOMY COMPARISON: Ultrasound OB transvaginal 11/01/2023 TECHNIQUE: Transabdominal sonographic examination was performed for obstetrical and evaluation. FINDINGS: Number: 1 Heart Rate: 148 bpm H.B. /min Amniotic Fluid Volume: Subjectively normal. Placental Location: ANTERIOR with lower margin 5.8 cm from os. Cervix Length: 4.60 cm ; closed. ANATOMY: Normal Structures -cerebellum, choroid plexus, cisterna magna, lateral cerebral ventricles, orbits, midline falx, hard palate, four-chamber heart, RVOT, LVOT, stomach, kidneys, bladder, umbilical cord insertion into abdomen, three-vessel cord, cervical spine, thoracic spine, lumbar spine, sacral spine, right upper extremity, left upper extremity, right lower extremity, left lower extremity. SUBOPTIMALLY SEEN: None ABNORMALITIES: None BIOMETRY: BPD: 5.25 cm; 22 weeks 0 days; 73.80 % HC: 19.66 cm; 21 weeks 6 days; 65.30 % AC: 16.94 cm; 21 weeks 0 days; 64.30 % FL: 3.74 cm; 21 weeks 6 days; 63.30 % EFW:463.68 g; 78 % FL/AC: 22.08 FL/BPD: 71.24 HC/AC: 1.16 GESTATIONAL AGE: Age by EDC: 21 weeks 2 days Age by current US: 22 weeks 0 days RINA by current US: 2024-06-02 RINA by EDC: 2024-06-07 US/US OB cervical length IMPRESSION: 1. Single live intrauterine with growth detailed above. Electronically authenticated by: MICHAEL ORTEGA Date: 01/29/2024 04:37
--- OUTSIDE RECORDS SUMMARY | 2024-01-28 11:20 | XMS_ITS | CCD ---
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 And Heater Name Role Phone Vicky Joe Unavailable WEST, DR SANON Admitting Unavailable KARASIK, DR SANON Attending Unavailable KARASIK, DR SANON Consulting Unavailable KARASIK, DR SANON Attending Unavailable KARASIK, DR SANON Consulting Unavailable JOSEK, DR SANON Admitting Unavailable CHLOE CARVAJAL Attending Unavailable CHLOE CARVAJAL Consulting Unavailable CHLOE CARVAJAL Admitting Unavailable Ysabel Cabral MD Primary Care Provider Ale Zaldivar MD Unavailable [phone] JO ANNTERESA HENAO Attending Unavailab joey ARRINGTONOR-TERESA SILVER Attending Unavailab joey JO ANN-NOSSEKDEETERESA M Attending Unavailab le JO ANN-NOSSEDEE BtuterfieldTERESA Cheri Attending Unavailab EVONNE Hargrove Attending Unavailable TERESA ORNELAS Attending Unavailab YSABEL Don Attending Unavailable CHLOE CARVAJAL Attending Unavailable CHLOE CARVAJAL Referring Unavailable YSABEL CABRAL Attending Unavailable YSABEL CABRAL Attending Unavailable JO ANN-NOSSEKDEETERESA M Attending Unavailab YSABEL Don Attending Unavailable EVONNE CHILDRESS Attending Unavailable JO ANN-TERESA SILVER Attending Unavailab YSABEL Don Attending Unavailable TERESA ORNELAS Attending Unavailab ELIUD Bustamante Attending Unavailable DEE ORNELASICIAlexander Alonzo Attending Unavailab ELIUD Bustamante Attending Unavailable Chloe Carvajal NP Unavailable Allergies Allergy Classification Reported Allergen(s) Allergy Type Date of Onset Reaction(s) Facility (1 source) Aspirin Drug Allergy shortness of breath [facility] Other (17 sources) Diclofenac Drug Allergy 07-05-19 23 Unknown [facility] Other (17 sources) Ibuprofen Drug Allergy 07-05-19 Unknown [facility] Other (17 sources) Naproxen Drug Allergy 07-05-19 23 Unknown [facility] Other (17 sources) NSAIDs Drug allergy 07-05-19 Unknown [facility] Other (1 source) Aspirin Drug Allergy 02-26-18 90 [facility] (1 source) cyclobenzaprine Drug Allergy 01-10-20 15 [facility] (1 source) Diclofenac Drug Allergy 01-10-20 15 [facility] (1 source) Ibuprofen Drug Allergy 08-04-19 16 [facility] (1 source) NSAIDs Drug allergy (disorder) 01-02-20 14 [facility] (16 sources) Aluminum aspirin Drug Allergy 07-05-19 23 [facility] (16 sources) Amitriptyline Drug Allergy 03-22-19 18 [facility] (16 sources) cyclobenzaprine Drug Allergy 01-24-20 16 [facility] (16 sources) Lamotrigine Allergy to substance 07-05-19 23 [facility] (16 sources) meloxicam Drug Allergy 07-05-19 23 Unknown [facility] (7 sources) Sertraline Drug Allergy 01-01-20 24 [facility] Medications Current Medications Medication Drug Class(es) Dates [...] propionate 0.05 mg/actuat metered dose nasal spray (17 sources) Corticosteroid take 1 spray(s) nasal route [...] a day Active Magnesium (6 sources) Start: End: take 1 tablet by mouth once daily [...] omeprazole 20 mg delayed release oral capsule (5 sources) Proton Pump Inhibitor Start: End: take 1 capsule by mouth before mealtime omeprazole (PriLOSEC) [address] capsule Indications: Gastroesophageal Reflux Disease , Heartburn Take 1 capsule (20 mg) by mouth in the morning. Take before meals. Do not crush or chew.. 30 capsule 3 01/10/2024 02/09/2024 Active take 1 capsule by mo ut every twenty-four hours Omeprazole 20 MG 1 [...] Active promethazine hydrochloride 12.5 mg oral tablet (16 sources) Phenothiazine Start: 10-22-19 24 take 1 [...] 800-160 MG 1 tablet Orally DAILY Active tretinoin 0.5 mg/ml topical cream (1 source) Retinoid Tretinoin 0.05 % 1 application to affected area in the evening to face Externally Once a day Active triamcinolone acetonide 1 mg/ml topical cream (1 source) Corticosteroid Triamcinolone Acetonide 0.1 % 1 application to affected area Externally Twice a day Active zonisamide 100 mg oral capsule (1 [...] 20 tablet 1 09/24/2023 11/28/2023 Discontinued (Other) [id number] 200 actuat albuterol 0.09 mg/actuat metered dose inhaler (20 sources) beta2-Adrenergic Agonist Start: 09-25-2023 End: 09-24-2024 take 2 puff(s) by inhalation every four hours for wheezing albuterol HFA (ProAir HFA) 90 mcg/act inhaler Indications: Acute bronchitis, unspecified organism Inhale 2 puffs every 4 (four) hours if needed for wheezing 18 g 11 09/25/2023 11/28/2023 Discontinued (Other) albuterol HFA (P roAir HFA) 90 mcg/act inhaler Active onabotulinumtoxina 200 unt injection (14 sources) Acetylcholine Release Inhibitor End: 01-10-2024 onabotulinumtoxinA (Botox) 200 units injection 01/10/2024 Discontinued (Other) cholecalciferol 0.025 mg oral tablet (14 sources) Vitamin D Start: 10-25-2021 End: 01-10-2024 take 1 tablet by mouth once daily D3-1000 25 MCG (1000 UT) tablet TAKE 1 TABLET BY MOUTH EVERY DAY FOR 90 DAYS 10/25/2021 01/10/2024 Discontinued (Other) dicyclomine hydrochloride 20 mg oral tablet (5 [...] TIMES A DAY for 30 days Active tiZANidine 4 mg oral tablet (15 sources) Central alpha-2 Adrenergic Agonist End: 01-10-2024 tiZANidine (Zanaflex) 4 MG tablet 1 (one) time each day at the same time. 01/10/2024 Discontinued (Other) take 1 capsule by mouth every ei ght hours Zanaflex 4 MG 1 capsule as needed Orally Three times a day Active vitamin b12 2.5 mg oral lozenge (15 sources) Vitamin B12 Start: 07-26-2021 End: 01-10-2024 Cyanocobalamin 2500 MCG sublingual tablet 1 (one) time each day at the same time. 07/26/2021 01/10/2024 Discontinued (Other) Vitamin B12 INJE CTION MONTHLY Active Problems Active Problems Problem Classification Problem Date Documented Da te Episodic/Chronic Anxiety disorders (20 sources) Generalized anxiety disorder; Translations: [Generalized anxiety disorder] Onset: 0 11-27-2023 Chronic Asthma (20 sources) Asthma; Translations: [Unspecified asthma, uncomplicated] Onset: 5 12-28-2022 Chronic Attention-deficit, conduct, and disruptive behavior disorders (18 sources) Attention deficit hyperactivity disorder, combined type; Translations: [Attention-deficit hyperactivity disorder, combined type] Onset: 3 11-27-2023 Chronic Esophageal disorders (1 source) Gastroesophageal reflux disease; Translations: [Gastro-esophageal reflux disease without esophagitis] Chronic Gastritis and duodenitis (16 sources) Chronic gastritis; Translations: [Unspecified chronic gastritis without bleeding] Onset: 3 12-28-2022 Chronic Headache; including migraine (20 sources) Migraine without aura, not refractory ; Translations: [Migraine without aura, not intractable, without status migrainosus] Onset: 8 12-28-2022 Chronic Immunizations and screening for infectious disease (4 sources) Encounter for immunization; Translations: [Encounter for screening for human papillomavirus (HPV)] Onset: 2 Resolved: 2 Episodic Malaise and fatigue (16 sources) Chronic fatigue syndrome; Translations: [Chronic fatigue syndrome] Onset: 7 12-28-2022 Chronic Miscellaneous mental health disorders (2 sources) Primary insomnia; Translations: [Primary insomnia] 12-17-2023 Chronic Mood disorders (16 sources) Episodic mood disorder; Translations: [Unspecified mood [affective] disorder] Onset: 3 07-04-2022 Chronic Nutritional deficiencies (16 sources) Vitamin D deficiency; Translations: [Vitamin D deficiency, unspecified] Onset: 3 12-28-2022 Chronic Osteoarthritis (20 sources) Localized, primary osteoarthritis of the ankle and/or foot; Translations: [Primary osteoarthritis, unspecified ankle and foot] Onset: 0 12-28-2022 Chronic Other acquired deformities (16 sources) Acquired scoliosis; Translations: [Scoliosis, unspecified] Onset: 7 12-28-2022 Chronic Other complications of (2 sources) Gastroesophageal reflux disease in ; Translations: [Diseases of the digestive system complicating , unspecified trimester] 01-10-2024 Episodic Other female genital disorders (2 sources) Vaginal discharge; Translations: [Other specified noninflammatory disorders of vagina] 01-10-2024 Episodic Other gastrointestinal disorders (16 sources) Irritable bowel syndrome; Translations: [Irritable bowel syndrome without diarrhea] Onset: 7 12-28-2022 Chronic Other and delivery including normal (6 sources) First trimester ; Translations: [Encounter for supervision of normal , unspecified, first trimester] 11-28-2023 Episodic Other screening for suspected conditions (not mental disorders or infectious disease) (6 sources) Encounter for screening for malignant neoplasm of cervix; Translations: [Patient encounter status] Onset: 2 Episodic Other upper respiratory disease (16 sources) Allergic rhinitis; Translations: [Allergic rhinitis, unspecified] Onset: 0 12-28-2022 Chronic Residual codes; unclassified (2 sources) Gestation period, 18 weeks; Translations: [18 weeks gestation of ] 01-10-2024 Episodic Unclassified (2 sources) CONTACT W/AND (SUSP) EXPOS COVID-19; Translations: [CONTACT W/AND (SUSP) EXPOS COVID-19] Onset: 2 Viral infection (1 source) COVID-19; Translations: [COVID-19] Onset: 2 Past or Other Problems Problem Classification Problem Date Documented Da te Episodic/Chronic Abdominal pain (2 sources) Epigastric pain; Translations: [Epigastric pain] Episodic Headache; including migraine (16 sources) Headache; Translations: [Headache] Onset: 06-28-2023 06-28-2023 Episodic Mood disorders (16 sources) Mood disorders Onset: 06-11-2023 06-11-2023 Nausea and vomiting (17 sources) Nausea and vomiting; Translations: [Nausea with vomiting, unspecified] Onset: 06-28-2023 06-28-2023 Episodic Other connective tissue disease (16 sources) Tenosynovitis of foot; Translations: [Tenosynovitis of foot] Onset: 06-28-2023 06-28-2023 Episodic Other connective tissue disease (16 sources) Pain in limb; Translations: [Pain in [...] Translations: [Diarrhea, unspecified] Episodic Residual codes; unclassified (16 sources) Inadequate sleep hygiene; Translations: [Inadequate sleep hygiene] Onset: 06-28-2023 06-28-2023 Episodic Residual codes; unclassified (16 sources) Disturbance in sleep behavior; Translations: [Sleep disorder, unspecified] Onset: 06-28-2023 06-28-2023 Episodic Residual codes; unclassified (16 sources) Insomnia; Translations: [Insomnia, unspecified] Onset: 06-28-2023 06-28-2023 Episodic Residual codes; unclassified (16 sources) Other problems related to lifestyle; Translations: [Other problems related to lifestyle] Onset: 06-28-2023 06-28-2023 Episodic Unclassified (1 source) CONTACT W/AND (SUSP) EXPOS COVID-19; Translations: [CONTACT W/AND (SUSP) EXPOS COVID-19] Onset: 03-01-2021 Results Test Name Value Interpretation Reference Range Facility IGP,APTIMA HPV,AGE GDLNon AGE GDLN ACOG TESTING Note . [facility] Comment on above: TESTS RESULT FLAG UN ITS REF RANGE LAB Clinician Provided Cytology Information Source.............Cervix Other.............. No. of containers..01 ThinPrep Vial Age Algo ACOG Beverly... 30-65 01 FLAG LEGEND: L-Low Normal,H-High Normal,LL-Alert Low,HH-Alert High <-Panic Low,>-Panic High,A-Abnormal,AA-Critical Abnormal Performed at: 01 =G [address] [place] [address] Judith Ventura MD, HPV APTIMA Negative Negative [facility] Comment on above: This nucleic acid am plification test detects fourteen high- risk HPV types (16,18,31,33,35,39,45,51,52,56,58,59,66,68) without differentiation. Performed at: = - [address], [place] [id number] Manager Intranet: Judith Ventura MD, Phone: [phone] Performed at: - [address], [place] [id number] Manager Intranet: Judith Ventura MD, Phone: [phone] IGP, APTIMA HPV, RFX 16/18,45 Note . [facility] Comment on above: TESTS RESULT FLAG UN ITS REF RANGE LAB DIAGNOSIS: 02 NEGATIVE FOR INTRAEPITHELIAL LESION OR MALIGNANCY. Specimen adequacy: 02 Satisfactory for evaluation. Endocervical and/or squamous metaplastic cells (endocervical component) are present. Performed by: Kae Frank, Track Service Worker (ASCP) . 02 Note: Note 02 The Pap smear is a screening test designed to aid in the detection of premalignant and malignant conditions of the uterine cervix. It is not a diagnostic procedure and should not be used as the sole means of detecting cervical cancer. Both false-positive and false-negative reports do occur. Test Methodology: Note 02 This liquid based ThinPrep(R) pap test was screened with the use of an image guided system. HPV Genotype Reflex Note 02 Criteria not met, HPV Genotype not performed. FLAG LEGEND: L-Low Normal,H-High Normal,LL-Alert Low,HH-Alert High <-Panic Low,>-Panic High,A-Abnormal,AA-Critical Abnormal Performed at: [address] [id number] Judith Ventura MD, SPATULA-ALONE CERVIX [facility] RECURRENT VAGINITIS (HTRX)on 01-11-2024 ATOPOBIUM VAGINAE 0 [facility] ATOPOBIUM VAGINAE Not detected [facility] BVAB 2,3 (BACTERIAL VAGINOSIS ASSOCIATED BACTERIA 2, 3); MOBILUNCUS SPP 0 [facility] BVAB 2,3 (BACTERIAL VAGINOSIS ASSOCIATED BACTERIA 2, 3); MOBILUNCUS SPP Not detected [facility] ZAYNAB ALBICANS, PARAPSILOSIS, TROPICALIS 0 [facility] ZAYNAB ALBICANS, PARAPSILOSIS, TROPICALIS Not detected [facility] ZAYNAB GLABRATA 0 [facility] ZAYNAB GLABRATA Not detected [facility] ZAYNAB KRUSEI 0 [facility] ZAYNAB KRUSEI Not detected [facility] CHLAMYDIA TRACHOMATIS 0 [facility] CHLAMYDIA TRACHOMATIS Not detected [facility] GARDNERELLA VAGINALIS 0 [facility] GARDNERELLA VAGINALIS Not detected [facility] MEGASPHAERA (TYPES 1, 2) 0 [facility] MEGASPHAERA (TYPES 1, 2) Not detected [facility] MYCOPLASMA GENITALIUM 0 [facility] MYCOPLASMA GENITALIUM Not detected [facility] NEISSERIA GONORRHOEAE 0 [facility] NEISSERIA GONORRHOEAE Not detected [facility] TRICHOMONAS VAGINALIS 0 [facility] TRICHOMONAS VAGINALIS Not detected [facility] Urinalysis macro (dipstick) panel (U)on 01-10-2024 Bilirubin, UA Negative Negative - 4(70) +++ mg/dL [facility] Blood, UA Negative Negative - 50 Armand/mcL [facility] Clarity, UA Clear [facility] Color, UA Yellow [facility] Glucose, UA Negative Negative - 2000(110) ++++ mg/dL [facility] Interpretation and review of laboratory results Abnormal [facility] Ketones, UA Positive Negative - 160(16) ++++ mg/dL [facility] Leukocytes, UA Negative Negative - 500+++ Doe/mcL [facility] Nitrite, UA Negative Negative - Positive [facility] pH, UA 7 5 - 9 [facility] Protein, UA Negative Negative - 2000(20) ++++ mg/dL [facility] Spec Grav, UA 1.015 1 - 1.03 [facility] Urobilinogen, UA 1.0 0.2 - 12 mg/dL [facility] ALL CBC WITH AUTO DIFFon BASOPHILS ABSOLUTE AUTO 0.0 [facility] Basophils/100 WBC (Bld) 0.2 % 0.2 - 2.0 % [facility] Eosinophils/100 WBC (Bld) 2.3 % 0.9 - 7.0 % [facility] Erythrocyte distribution width (RBC) [Ratio] 12.3 % 11.0 - 15.0 % [facility] Hematocrit (Bld) [Volume fraction] 37.1 % 36.0 - 48.0 % [facility] Hemoglobin (Bld) [Mass/Vol] 12.3 g/dL 12.0 - 16.0 g/dL [facility] IMMATURE GRANULOCYTES ABS AUTO 0.04 High [facility] Immature granulocytes/100 WBC (Bld) 0.4 % 0.0 - 0.5 % [facility] Interpretation and review of laboratory results Abnormal [facility] LYMPHOCYTES ABSOLUTE AUTO 2.7 [facility] Lymphocytes/100 WBC (Bld) 28.4 % 20.5 - 60.0 % [facility] MCH (RBC) [Entitic mass] 28.0 pg 26.7 - 34.0 pg [facility] MCHC (RBC) [Mass/Vol] 33.2 g/dL 29.9 - 35.2 g/dL [facility] MCV (RBC) [Entitic vol] 84.3 fL 81.0 - 99.0 fL [facility] MONOCYTES ABSOLUTE AUTO 0.5 [facility] Monocytes/100 WBC (Bld) 5.0 % 1.7 - 12.0 % [facility] NEUTROPHILS ABSOLUTE AUTO 6.0 [facility] Neutrophils/100 WBC (Bld) 63.7 % 43.0 - 75.0 % [facility] Platelet mean volume (Bld) [Entitic vol] 10.4 fL 9.5 - 13.5 fL [facility] EO # 0.2 [facility] PLT 253 [facility] RBC 4.40 [facility] WBC 9.4 [facility] Urinalysis macro (dipstick) panel (U)on 11-28-2023 Bilirubin, UA Negative Negative - 4(70) +++ mg/dL [facility] Blood, UA Negative Negative - 50 Armand/mcL [facility] Clarity, UA Clear [facility] Color, UA Yellow [facility] Glucose, UA Negative Negative - 1999(110) ++++ mg/dL [facility] Interpretation and review of laboratory results Normal [facility] Ketones, UA Negative Negative - 160(16) ++++ mg/dL [facility] Leukocytes, UA Negative Negative - 500+++ Doe/mcL [facility] Nitrite, UA Negative Negative - Positive [facility] pH, UA 7.0 5 - 9 [facility] Protein, UA Negative Negative - 1999(20) ++++ mg/dL [facility] Spec Grav, UA 1.025 1 - 1.03 [facility] Urobilinogen, UA 1.0 0.2 - 12 mg/dL [facility] XR CERVICAL SPINE AP/LAT/FLE X/EXT/OBLIQUESon 08-16-2023 XR [...] [Mass/Vol] 8.9 mg/dL Normal (8.6 - 10.6) [facility] Comment on above: Performed By: #### C BC/2A, ESRCRP, CCP, HBC-M, HBSAG, HCV, CA, MG, RHF, URCA #### [facility] [address] [facility], [address] CBC, ALB, ALT, AST, ALK AND CREAon 12-18-2022 Albumin [Mass/Vol] 5.0 g/dL Normal (3.5 - 5.0) [facility] Comment on above: Order Comment: FACIL ITY: [facility] NWO [id number] Performed By: #### C BC/2A, ESRCRP, CCP, HBC-M, HBSAG, HCV, CA, MG, RHF, URCA #### [facility] [address] [facility], [address] ALK PHOS 60 U/L Normal (38 - 126) [facility] Comment on above: Order Comment: FACIL ITY: [facility] NWO [id number] Performed By: #### C BC/2A, ESRCRP, CCP, HBC-M, HBSAG, HCV, CA, MG, RHF, URCA #### [facility] [address] [facility], [address] ALT [Catalytic activity/Vol] 34 U/L Normal (1 - 35) [facility] Comment on above: Order Comment: FACIL ITY: [facility] [id number] Performed By: #### C BC/2A, ESRCRP, CCP, HBC-M, HBSAG, HCV, CA, MG, RHF, URCA #### [facility] [address] [facility], [address] AST [Catalytic activity/Vol] 34 U/L Normal (15 - 46) [facility] Comment on above: Order Comment: FACIL ITY: [facility] [id number] Performed By: #### C BC/2A, ESRCRP, CCP, HBC-M, HBSAG, HCV, CA, MG, RHF, URCA #### [facility] [address] [facility], [address] Creatinine [Mass/Vol] 0.61 mg/dL Normal (0.52 - 1.04) [facility] Comment on above: Order Comment: FACIL ITY: [facility]WO [id number] Performed By: #### C BC/2A, ESRCRP, CCP, HBC-M, HBSAG, HCV, CA, MG, RHF, URCA #### [facility] [address] [facility], [id number] GFR- AMER 135.1 ML/M1.7 Normal (60.0 - 140.1) [facility] Comment on above: Order Comment: FACIL ITY: [facility] [id number] Performed By: #### C BC/2A, ESRCRP, CCP, HBC-M, HBSAG, HCV, CA, MG, RHF, URCA #### [facility] [address] [facility], [id number] GFR-NON AFRIC-AMER 111.6 ML/M1.7 Normal (60.0 - 115.8) [facility] Comment on above: Order Comment: FACIL ITY: [facility] [id number] Performed By: #### C BC/2A, ESRCRP, CCP, HBC-M, HBSAG, HCV, CA, MG, RHF, URCA #### [facility] [address] [facility], [id number] Hematocrit (Bld) [Volume fraction] 41.5 % Normal (37.0 - 47.0) [facility] Comment on above: Order Comment: FACIL ITY: [facility] [id number] Performed By: #### C BC/2A, ESRCRP, CCP, HBC-M, HBSAG, HCV, CA, MG, RHF, URCA #### [facility] [address] [facility], [id number] Hemoglobin (Bld) [Mass/Vol] 13.5 g/dL Normal (12.0 - 16.0) [facility] Comment on above: Order Comment: FACIL ITY: [facility] [id number] Performed By: #### C BC/2A, ESRCRP, CCP, HBC-M, HBSAG, HCV, CA, MG, RHF, URCA #### [facility] [address] [facility], [id number] MCH (RBC) [Entitic mass] 28.7 pg Normal (27.0 - 33.0) [facility] Comment on above: Order Comment: FACIL ITY: [facility] O [id number] Performed By: #### C BC/2A, ESRCRP, CCP, HBC-M, HBSAG, HCV, CA, MG, RHF, URCA #### [facility] [address] [facility], [address] MCHC (RBC) [Mass/Vol] 32.5 g/dL Normal (30.0 - 37.0) [facility] Comment on above: Order Comment: FACIL ITY: [facility] O [id number] Performed By: #### C BC/2A, ESRCRP, CCP, HBC-M, HBSAG, HCV, CA, MG, RHF, URCA #### [facility] [address] [facility], [address] MCV (RBC) [Entitic vol] 88.1 fL Normal (81.0 - 99.0) [facility] Comment on above: Order Comment: FACIL ITY: [facility] O [id number] Performed By: #### C BC/2A, ESRCRP, CCP, HBC-M, HBSAG, HCV, CA, MG, RHF, URCA #### [facility] [address] [facility], [address] PLT 282 x10^3ul Normal (130 - 400) [facility] Comment on above: Order Comment: FACIL ITY: [facility] O [id number] Performed By: #### C BC/2A, ESRCRP, CCP, HBC-M, HBSAG, HCV, CA, MG, RHF, URCA #### [facility] [address] [facility], [address] RBC 4.71 x10^6ul Normal (4.20 - 5.40) [facility] Comment on above: Order Comment: FACIL ITY: [facility] NWO [id number] Performed By: #### C BC/2A, ESRCRP, CCP, HBC-M, HBSAG, HCV, CA, MG, RHF, URCA #### [facility] [address] [facility], [address] WBC 6.47 x10^3ul Normal (3.80 - 10.60) [facility] Comment on above: Order Comment: FACIL ITY: [facility] [id number] Performed By: #### C BC/2A, ESRCRP, CCP, HBC-M, HBSAG, HCV, CA, MG, RHF, URCA #### [facility] [address] [facility], [address] HEP B CORE AB, IGMon 023 HEPATITIS B CORE ANTIBODY, IGM Negative Normal (NEG - NEG) [facility] Comment on above: Performed By: #### C BC/2A, ESRCRP, CCP, HBC-M, HBSAG, HCV, CA, MG, RHF, URCA #### [facility] [address] [facility], [address] HEP B HERACLIO AGon 12-18-2022 HEP B HERACLIO AG Negative Normal (NEG - NEG) [facility] Comment on above: Performed By: #### C BC/2A, ESRCRP, CCP, HBC-M, HBSAG, HCV, CA, MG, RHF, URCA #### [facility] [address] [facility], [address] HEP C ANTIBODYon 12-18-2022 HEPATITIS C ANTIBODY Negative Normal (NEG - NEG) [facility] Comment on above: Performed By: #### C BC/2A, ESRCRP, CCP, HBC-M, HBSAG, HCV, CA, MG, RHF, URCA #### [facility] [address] [facility], [address] MAGNESIUMon 12-18-2022 Magnesium [Mass/Vol] 2.0 mg/dL Normal (1.6 - 2.3) [facility] Comment on above: Performed By: #### C BC/2A, ESRCRP, CCP, HBC-M, HBSAG, HCV, CA, MG, RHF, URCA #### [facility] [address] [facility], [address] RF FACTORon 12-18-2022 RF FACTOR <9 Normal (0 - 12) [facility] Comment on above: Result Comment: RF F ACTOR = LESS THAN 9 IU/ML RF FACTOR MIN. DETECTION = 9 IU/ML. Performed By: #### C BC/2A, ESRCRP, CCP, HBC-M, HBSAG, HCV, CA, MG, RHF, URCA #### [facility] [address] [facility], [address] SED RATE - CRPon 12-18-2022 CRP EXTENDED RANGE 1.40 MG/L Normal (0.00 - 3.20) [facility] Comment on above: Performed By: #### C BC/2A, ESRCRP, CCP, HBC-M, HBSAG, HCV, CA, MG, RHF, URCA #### [facility] [address] [facility], [address] SED RATE WEST. 5 MM/HR Normal (0 - 25) [facility] Comment on above: Performed By: #### C BC/2A, ESRCRP, CCP, HBC-M, HBSAG, HCV, CA, MG, RHF, URCA #### [facility] [address] [facility], [address] URIC ACIDon 12-18-2022 Urate [Mass/Vol] 4.2 mg/dL Normal (2.5 - 6.2) [facility] Comment on above: Performed By: #### C BC/2A, ESRCRP, CCP, HBC-M, HBSAG, HCV, CA, MG, RHF, URCA #### [facility] [address] [facility], [address] PAP ACOG PANEL 2: 30 to 65on 11-16-2021 . . Normal [facility] Comment on above: Result Comment: Perf ormed at: WB Performed By: #### [id number] #### [facility] [address] [place] [address] Dr. Sierra Almonte Age Gdln ACOG Testing 30-65 Normal [facility] Comment on above: Performed By: #### [id number] #### [facility] [address] [place] [address] Dr. Sierra Almonte DIAGNOSIS: Comment Normal [facility] Comment on above: Result Comment: NEGA TIVE FOR INTRAEPITHELIAL LESION OR MALIGNANCY. Performed at: WB Performed By: #### [id number] #### [facility] [address] [place] [address] Dr. Sierra Almonte HPV Aptima Negative Normal Negative [facility] Comment on above: Result Comment: This nucleic acid amplification test detects fourteen high-risk HPV types (16,18,31,33,35,39,45,51,52,56,58,59,66,68) without differentiation. Performed at: =G Performed By: #### [id number] #### [facility] [address] [place] [address] Dr. Sierra Almonte Methodology: Comment Normal [facility] Comment on above: Result Comment: This liquid based ThinPrep(R) pap test was screened with the use of an image guided system. Performed at: WB Performed By: #### [id number] #### [facility] [address] [place] [address] Dr. Sierra Almonte Note: Comment Normal [facility] Comment on above: Result Comment: The Pap smear is a screening test designed to aid in the detection of premalignant and malignant conditions of the uterine cervix. It is not a diagnostic procedure and should not be used as the sole means of detecting cervical cancer. Both false-positive and false-negative reports do occur. . Performed at: WB Performed By: #### [id number] #### [facility] [address] [place] [address] Dr. Sierra Almonte Performed by: Comment Normal [facility] Comment on above: Result Comment: Alison Sapp, Track Service Worker (ASCP) Performed at: WB Performed By: #### [id number] #### [facility] [address] [address] [address] Sierra Almonte Specimen adequacy: Comment Normal [facility] Comment on above: Result Comment: Sati sfactory for evaluation. Endocervical and/or squamous metaplastic cells (endocervical component) are present. Performed at: WB Performed By: #### 4 [id number] #### [facility] [address] [address] [address] Sierra Almonte US Thyroidon 07-14-2021 US [...] by Alexei Smith on 07/14/2021 1000 Normal [facility] [employer] Complete Blood Count with Au to Diffon 07-12-2021 Basophils (Bld) [#/Vol] 0.02 10*3/uL Normal 0.00-0.20 [facility] Comment on above: Performed By: #### C BCAD, RF, VITD, ESR, TSH reflex FT4, CMP, FT4 #### [facility] [address] [place], [place] [id number] Basophils/100 WBC (Bld) 0.3 % Normal [facility] Comment on above: Performed By: #### C BCAD, RF, VITD, ESR, TSH reflex FT4, CMP, FT4 #### [facility] [address] [place], [place] [id number] Eosinophils (Bld) [#/Vol] 0.08 10*3/uL Normal 0.02-0.50 [facility] Comment on above: Performed By: #### C BCAD, RF, VITD, ESR, TSH reflex FT4, CMP, FT4 #### [facility] [address] [place], [place] [id number] Eosinophils/100 WBC (Bld) 1.2 % Normal [facility] Comment on above: Performed By: #### C BCAD, RF, VITD, ESR, TSH reflex FT4, CMP, FT4 #### [facility] [address] [place], [place] [id number] Erythrocyte distribution width (RBC) [Ratio] 13.8 % Normal 11.0-15.0 [facility] Comment on above: Performed By: #### C BCAD, RF, VITD, ESR, TSH reflex FT4, CMP, FT4 #### [facility] [address] [place], [place] [id number] Hematocrit (Bld) [Volume fraction] 39.6 % Normal 35.0-47.0 [facility] Comment on above: Performed By: #### C BCAD, RF, VITD, ESR, TSH reflex FT4, CMP, FT4 #### [facility] [address] [place], [place] [id number] Hemoglobin (Bld) [Mass/Vol] 12.9 g/dL Normal 11.6-15.5 [facility] Comment on above: Performed By: #### C BCAD, RF, VITD, ESR, TSH reflex FT4, CMP, FT4 #### [facility] [address] [place], [place] [id number] Lymphocytes (Bld) [#/Vol] 1.3 10*3/uL Normal 0.9-3.9 [facility] Comment on above: Performed By: #### C BCAD, RF, VITD, ESR, TSH reflex FT4, CMP, FT4 #### [facility] [address] [place], [place] [id number] Lymphocytes/100 WBC (Bld) 20.3 % Normal [facility] Comment on above: Performed By: #### C BCAD, RF, VITD, ESR, TSH reflex FT4, CMP, FT4 #### [facility] [address] [place], [place] [id number] MCH (RBC) [Entitic mass] 28.3 pg Normal 27.0-33.0 [facility] Comment on above: Performed By: #### C BCAD, RF, VITD, ESR, TSH reflex FT4, CMP, FT4 #### [facility] [address] [place], [place] [id number] MCHC (RBC) [Mass/Vol] 32.6 g/dL Normal 32.0-36.0 [facility] Comment on above: Performed By: #### C BCAD, RF, VITD, ESR, TSH reflex FT4, CMP, FT4 #### [facility] [address] [place], [place] [id number] MCV (RBC) [Entitic vol] 87 fL Normal 80-100 [facility] Comment on above: Performed By: #### C BCAD, RF, VITD, ESR, TSH reflex FT4, CMP, FT4 #### [facility] [address] [place], [place] [id number] Monocytes (Bld) [#/Vol] 0.4 10*3/uL Normal 0.2-0.9 [facility] Comment on above: Performed By: #### C BCAD, RF, VITD, ESR, TSH reflex FT4, CMP, FT4 #### [facility] [address] [place], [place] [id number] Monocytes/100 WBC (Bld) 5.8 % Normal [facility] Comment on above: Performed By: #### C BCAD, RF, VITD, ESR, TSH reflex FT4, CMP, FT4 #### [facility] [address] [place], [place] [id number] Neutrophils (Bld) [#/Vol] 4.7 10*3/uL Normal 1.5-7.8 [facility] Comment on above: Performed By: #### C BCAD, RF, VITD, ESR, TSH reflex FT4, CMP, FT4 #### [facility] [address] [place], [place] [id number] Neutrophils/100 WBC (Bld) 72.1 % Normal [facility] Comment on above: Performed By: #### C BCAD, RF, VITD, ESR, TSH reflex FT4, CMP, FT4 #### [facility] [address] [place], [place] [id number] Platelet mean volume (Bld) [Entitic vol] 11.00 fL Normal 7.50-12.50 [facility] Comment on above: Performed By: #### C BCAD, RF, VITD, ESR, TSH reflex FT4, CMP, FT4 #### [facility] [address] [place], [place] [id number] Platelets (Bld) [#/Vol] 271 10*3/uL Normal 140-400 [facility] Comment on above: Performed By: #### C BCAD, RF, VITD, ESR, TSH reflex FT4, CMP, FT4 #### [facility] [address] [place], [place] [id number] RBC (Bld) [#/Vol] 4.56 10*6/uL Normal 3.90-5.20 [facility] Comment on above: Performed By: #### C BCAD, RF, VITD, ESR, TSH reflex FT4, CMP, FT4 #### [facility] [address] [place], [place] [id number] RDW-SD 43.5 fL Normal 37.0-50.0 [facility] Comment on above: Performed By: #### C BCAD, RF, VITD, ESR, TSH reflex FT4, CMP, FT4 #### [facility] [address] [place], [place] [id number] WBC (Bld) [#/Vol] 6.5 10*3/uL Normal 3.8-11.0 [facility] [place] [facility] Comment on above: Performed By: #### C BCAD, RF, VITD, ESR, TSH reflex FT4, CMP, FT4 #### [facility] [address] [place], [place] [id number] Comprehensive Metabolic Pane thuy 07-12-2021 Albumin [Mass/Vol] 4.9 g/dL Normal 3.6-5.1 [facility] [place] [facility] Comment on above: Performed By: #### C BCAD, RF, VITD, ESR, TSH reflex FT4, CMP, FT4 #### [facility] [address] [place], [place] [id number] Albumin/Globulin [Mass ratio] 2.2 {ratio} Normal 1.0-2.5 [facility] Comment on above: Performed By: #### C BCAD, RF, VITD, ESR, TSH reflex FT4, CMP, FT4 #### [facility] [address] [place], [place] [id number] ALP [Catalytic activity/Vol] 63 U/L Normal 35-119 [facility] Comment on above: Performed By: #### C BCAD, RF, VITD, ESR, TSH reflex FT4, CMP, FT4 #### [facility] [address] [place], [place] [id number] ALT [Catalytic activity/Vol] 26 U/L Normal 6-33 [facility] Comment on above: Result Comment: 01/26 Female reference range changed. Performed By: #### C BCAD, RF, VITD, ESR, TSH reflex FT4, CMP, FT4 #### [facility] [address] [place], [place] [id number] Anion gap [Moles/Vol] 18 mmol/L Normal 12-20 [facility] Comment on above: Result Comment: Effe ctive 03/03/2019 reference range changed. Performed By: #### C BCAD, RF, VITD, ESR, TSH reflex FT4, CMP, FT4 #### [facility] [address] [place], [place] [id number] AST [Catalytic activity/Vol] 26 U/L Normal 9-34 [facility] [facility] Comment on above: Performed By: #### C BCAD, RF, VITD, ESR, TSH reflex FT4, CMP, FT4 #### [facility] [address] [place], [place] [id number] BUN/CREA 10 Ratio Normal 6-22 [facility] Comment on above: Performed By: #### C BCAD, RF, VITD, ESR, TSH reflex FT4, CMP, FT4 #### [facility] [address] [place], [place] [id number] Calcium [Mass/Vol] 10.0 mg/dL Normal 8.6-10.2 [facility] Comment on above: Performed By: #### C BCAD, RF, VITD, ESR, TSH reflex FT4, CMP, FT4 #### [facility] [address] [place], [place] [id number] Chloride [Moles/Vol] 105 mmol/L Normal 98-107 [facility] Comment on above: Performed By: #### C BCAD, RF, VITD, ESR, TSH reflex FT4, CMP, FT4 #### [facility] [address] [place], [place] [id number] CO2 [Moles/Vol] 21 mmol/L Normal 20-31 [facility] Comment on above: Performed By: #### C BCAD, RF, VITD, ESR, TSH reflex FT4, CMP, FT4 #### [facility] [address] [place], [place] [id number] Creatinine [Mass/Vol] 0.6 mg/dL Normal 0.6-1.4 [facility] Comment on above: Performed By: #### C BCAD, RF, VITD, ESR, TSH reflex FT4, CMP, FT4 #### [facility] [address] [place], [place] [id number] eGFRAA 132 mL/min/1.73m2 Normal >60 [facility] Comment on above: Performed By: #### C BCAD, RF, VITD, ESR, TSH reflex FT4, CMP, FT4 #### [facility] [address] [place], [place] [id number] eGFRNAA 109 mL/min/1.73m2 Normal >60 [place] [facility] Comment on above: Performed By: #### C BCAD, RF, VITD, ESR, TSH reflex FT4, CMP, FT4 #### [facility] [address] [place], [place] [id number] Globulin (S) [Mass/Vol] 2.2 g/dL Normal 1.9-3.7 [facility] Comment on above: Performed By: #### C BCAD, RF, VITD, ESR, TSH reflex FT4, CMP, FT4 #### [facility] [address] [place], [place] [id number] Glucose [Mass/Vol] 86 mg/dL Normal 65-99 [facility] [employer] [facility] Comment on above: Result Comment: For FASTING Glucose --- ADA reference ranges: Normal 65-99 mg/dl Prediabetes 100-125 Diabetes >/= 126 Performed By: #### C BCAD, RF, VITD, ESR, TSH reflex FT4, CMP, FT4 #### [facility] [address] [place], [place] [id number] Potassium [Moles/Vol] 4.1 mmol/L Normal 3.5-5.5 [facility] Comment on above: Performed By: #### C BCAD, RF, VITD, ESR, TSH reflex FT4, CMP, FT4 #### [facility] [address] [place], [place] [id number] Protein [Mass/Vol] 7.1 g/dL Normal 6.1-8.1 [facility] [facility] Comment on above: Performed By: #### C BCAD, RF, VITD, ESR, TSH reflex FT4, CMP, FT4 #### [facility] [address] [place], [place] [id number] Sodium [Moles/Vol] 140 mmol/L Normal 135-146 [facility] Comment on above: Performed By: #### C BCAD, RF, VITD, ESR, TSH reflex FT4, CMP, FT4 #### [facility] [address] [place], [place] [id number] TBIL <0.3 Normal [facility] Comment on above: Performed By: #### C BCAD, RF, VITD, ESR, TSH reflex FT4, CMP, FT4 #### [facility] [address] [place], [place] [id number] Urea nitrogen [Mass/Vol] 7 mg/dL Normal 7-25 [facility] Comment on above: Performed By: #### C BCAD, RF, VITD, ESR, TSH reflex FT4, CMP, FT4 #### [facility] [address] [place], [place] [id number] Free T4on 07-12-2021 Free T4 [Mass/Vol] 0.93 ng/dL Normal 0.80-1.80 [facility] Comment on above: Performed By: #### C BCAD, RF, VITD, ESR, TSH reflex FT4, CMP, FT4 #### [facility] [address] [place], [place] [id number] Q - PASQUALE SCREEN IFA W/RFL TIT ER AND PATTERNon 07-12-2021 PASQUALE SCREEN, IFA Negative Normal NEGATIVE [facility] Comment on above: Order Comment: [facility] performed at: QPT, [facility], [address] [place] [address], [address] [place] [address], [id number], Offc Spec: Leonard Turpin MD [facility] Date/Time: [facility] [...] AC-0: Negative International Consensus on PASQUALE Patterns (https://doi.org/10.1515/gpiw-[email or web address]) For additional information, please refer to [email or web address] [email or web address]/faq/[email or web address] (This link is being provided for informational/ educational purposes only.) Performed By: #### 2 49 #### [facility] [address] [place] [address] RBC Sedimentation Rateon ESR (Bld) [Velocity] 8.00 mm/h Normal 0.00-20.00 [facility] Comment on above: Performed By: #### C BCAD, RF, VITD, ESR, TSH reflex FT4, CMP, FT4 #### [facility] [address] [place], [place] [id number] Rheumatoid Factoron 07-13-19 RF <10 Normal [facility] [facility] Comment on above: Performed By: #### C BCAD, RF, VITD, ESR, TSH reflex FT4, CMP, FT4 #### [facility] [address] [place], [place] [id number] TSH w/ Reflex to Free T4on 07-12-2021 TSH 0.321 uIU/mL Low 0.400-4.500 [facility] [employer] [facility] Comment on above: Performed By: #### C BCAD, RF, VITD, ESR, TSH reflex FT4, CMP, FT4 #### [facility] [address] [place], [place] [id number] Vitamin D 25-OHon 07-12-2021 VIT D 25 OH 19 ng/ml Low >29 [facility] Comment on above: Result Comment: Ade min D Status Deficiency <20 ng/mL Insufficiency 20-29 ng/mL Optimal 30-100 ng/mL Possible Toxicity >=150 ng/mL Performed By: #### C BCAD, RF, VITD, ESR, TSH reflex FT4, CMP, FT4 #### [facility] [address] [place], [place] [id number] Comprehensive Metabolic Empo n 04-11-2021 Albumin [Mass/Vol] 4.6 g/dL Normal 3.2-5.5 [facility] Comment on above: Performed By: #### E BS CMP, EBS LIPID #### [facility] [address] [place] [address] [facility] Albumin/Globulin [Mass ratio] 1.9 {ratio} Normal [facility] Comment on above: Performed By: #### E BS CMP, EBS LIPID #### [facility] [address] [place] [address] [place] ALP [Catalytic activity/Vol] 43 U/L Normal 32-92 [facility] Comment on above: Performed By: #### E BS CMP, EBS LIPID #### [facility] [address] [id number] [place] ALT [Catalytic activity/Vol] 17 U/L Normal 10-60 [facility] Comment on above: Performed By: #### E BS CMP, EBS LIPID #### [facility] [address] [id number] [place] AST [Catalytic activity/Vol] 20 U/L Normal 10-42 [facility] Comment on above: Performed By: #### E BS CMP, EBS LIPID #### [facility] [address] [id number] [place] Bilirubin [Mass/Vol] 1.1 mg/dL Normal 0.3-1.2 [facility] Comment on above: Performed By: #### E BS CMP, EBS LIPID #### [facility] [address] [id number] [place] Calcium [Mass/Vol] 9.6 mg/dL Normal 8.2-10.2 [facility] Comment on above: Performed By: #### E BS CMP, EBS LIPID #### [facility] [address] [id number] [place] Chloride [Moles/Vol] 102 mmol/L Normal 95-114 [facility] Comment on above: Performed By: #### E BS CMP, EBS LIPID #### [facility] [address] [id number] [place] CO2 [Moles/Vol] 21.4 mmol/L Low 22.0-30.0 [facility] Comment on above: Performed By: #### E BS CMP, EBS LIPID #### [facility] [address] [id number] [place] Creatinine [Mass/Vol] 0.71 mg/dL Normal 0.44-1.03 [facility] Comment on above: Performed By: #### E BS CMP, EBS LIPID #### [facility] [address] [id number] [place] Estimated GFR ( Michelle > 60 Normal [facility] Comment on above: Result Comment: GFR estimated reference range: According to KDOQI guidelines, <60 ml/min/1.73m2 is sufficient to diagnose a patient with chronic kidney disease. Performed By: #### E BS CMP, EBS LIPID #### [address] Estimated GFR (Non- Am > 60 Normal [facility] Comment on above: Performed By: #### E BS CMP, EBS LIPID #### [facility] [address] [place] [address] Globulin (S) [Mass/Vol] 2.4 g/dL Normal [facility] Comment on above: Performed By: #### E BS CMP, EBS LIPID #### [address] Glucose [Mass/Vol] 76 mg/dL Normal 70-100 [facility] Comment on above: Performed By: #### E BS CMP, EBS LIPID #### [address] Potassium [Moles/Vol] 3.3 mmol/L Low 3.5-5.1 [facility] Comment on above: Performed By: #### E BS CMP, EBS LIPID #### [address] Protein [Mass/Vol] 7.0 g/dL Normal 6.1-7.9 [facility] Comment on above: Performed By: #### E BS CMP, EBS LIPID #### [facility] [address] [place] [address] Sodium [Moles/Vol] 136 mmol/L Normal 136-146 [facility] Comment on above: Performed By: #### E BS CMP, EBS LIPID #### [facility] [address] [place] [address] Urea nitrogen [Mass/Vol] 5 mg/dL Low 9-23 [facility] Comment on above: Performed By: #### E BS CMP, EBS LIPID #### [facility] [address] [place] [address] Lipid Profileon 04-11-2021 Cholesterol [Mass/Vol] 189 mg/dL Normal 140-200 [facility] Comment on above: Result Comment: Chol less than 200 mg/dl low risk Chol 201-239 mg/dl borderline risk Chol 240 mg/dl and greater high risk Performed By: #### E BS CMP, EBS LIPID #### [facility] [address] [place] [address] [place] Cholesterol in HDL [Mass/Vol] 69 mg/dL Normal 35-85 [facility] Comment on above: Result Comment: HDL CHOL ATP-III CLASSIFICATION Cardiovascular Risk HDL > or equal to 60 mg/dL LOW HDL < 40 mg/dL HIGH Performed By: #### E BS CMP, EBS LIPID #### [facility] [address] Cholesterol.total/C holesterol in HDL [Mass ratio] 2.7 {ratio} Normal <5.0 [facility] Comment on above: Result Comment: PERF ORMED BY: [place] [address] PATHOLOGIST TUBE LASER OPERATOR PAT PETERS M.D. Performed By: #### E BS CMP, EBS LIPID #### [facility] [address] [id number] [facility] LDL Cholesterol,Calcula shadi 107 mg/dL High 0-100 [facility] Comment on above: Result Comment: LDL ATP III CLASSIFICATION LDL less than 100 mg/dL Optimal LDL 100-129 mg/dL Near or above optimal LDL 130-159 mg/dL Borderline high LDL 160-189 mg/dL High LDL greater than 189 mg/dL Very high Performed By: #### E BS CMP, EBS LIPID #### [facility] [address] [id number] [place] Triglyceride w/Reflex 64 mg/dL Normal 35-149 [facility] Comment on above: Result Comment: TRIG ATP III CLASSIFICATION TRIG less than 150 mg/dL Normal TRIG 150-199 mg/dL Borderline high TRIG 200-500 mg/dL High TRIG greater than 500 mg/dL Very high Standard traceable to the Center for Disease Conrtrol and Prevention (CDC) test method. Performed By: #### E BS CMP, EBS LIPID #### [facility] [address] VLDL CHOLESTEROL 12 mg/dL Normal [facility] Comment on above: Performed By: #### E BS CMP, EBS LIPID #### [facility] [address] Covid-19 PCR (CVDTBH)on SARS-CoV-2 (COVID-19) RNA ERIC+probe Ql (Unsp spec) Detected Critically abnormal NOT DETECTED [facility] Comment on above: Result Comment: This test is not yet approved or cleared by the [place] FDA. When there are no FDA-approved or cleared tests available, and other criteria are met, FDA can make tests available under an emergency access mechanism called an Emergency Use Authorization (EUA). The EUA for this test is supported by the [place] of Health and Human Service's (HHS's) declaration [...] used). Performed By: #### C VDTBH #### [facility] [address] [place] [address] Dr. Sierra Almonte CHLAMYDIA/GONOCOCCUS ERIC (SW AB/URINE/PAPon 12-14-2020 Chlamydia trachomatis, ERIC Negative Normal Negative [facility] Comment on above: Performed By: #### C T/NGNA #### [facility] [address] [place] [address] Dr. Sierra Almonte Neisseria gonorrhoeae, ERIC Negative Normal Negative [facility] Comment on above: Performed By: #### C T/NGNA #### [facility] [address] [place] [address] Dr. Sierra Almonte VAGINITIS/VAGINOSIS DNA PROB Andrew 12-11-2020 Zaynab species Negative Normal Negative [facility] Comment on above: Performed By: #### V AGINT #### [facility] [address] [place] [address] Dr. Sierra Almonte Gardnerella vaginalis Positive Abnormal Negative [facility] Comment on above: Performed By: #### V AGINT #### [facility] [address] [address] [address] Sierra Almonte Trichomonas vaginalis Negative Normal Negative [facility] Comment on above: Performed By: #### V AGINT #### [facility] [address] [address] [address] Sierra Almonte Vital Signs Date Time Vital Sign Value Performing Clinician Faci lity 01-10-2024 10:44-0500 Body mass index (BMI) [Ratio] 26.3 kg/m2 Eliud Josefa DO Work Phone: [facility] 01-10-2024 10:44-0500 Body weight 68.95 kg Eliud Josefa DO Work Phone: [facility] 01-10-2024 10:44-0500 Diastolic blood pressure 74 mm[Hg] Eliud Josefa DO Work Phone: [facility] 01-10-2024 10:44-0500 Systolic blood pressure 116 mm[Hg] Eliud Josefa DO Work Phone: [facility] 01-01-2024 11:40-0500 Body mass index (BMI) [Ratio] 25.78 kg/m2 Teresa Jo Ann-Nossek DENTAL SERVICE CHIEF-SHOE CLEANER Work Phone: [facility] 01-01-2024 11:40-0500 Body weight 67.59 kg Teresa Jo Ann-Nossek DENTAL SERVICE CHIEF-SHOE CLEANER Work Phone: [facility] 01-01-2024 11:40-0500 Diastolic blood pressure 82 mm[Hg] Teresa Jo Ann-Nossek DENTAL SERVICE CHIEF-SHOE CLEANER Work Phone: [facility] 01-01-2024 11:40-0500 Heart rate 99 /min Tereas Jo Ann-Nossek DENTAL SERVICE CHIEF-SHOE CLEANER Work Phone: [facility] 01-01-2024 11:40-0500 Systolic blood pressure 100 mm[Hg] Teresa Jo Ann-Nossek DENTAL SERVICE CHIEF-SHOE CLEANER Work Phone: [facility] 11-28-2023 14:53-0400 Body mass index (BMI) [Ratio] 25.57 kg/m2 Eliud Joseaf DO Work Phone: [facility] 11-28-2023 14:53-0400 Body weight 67.04 kg Eliud Josefa [employer] Work Phone: [facility] 11-28-2023 14:53-0400 Diastolic blood pressure 74 mm[Hg] Eliud Josefa DO Work Phone: [facility] 11-28-2023 14:53-0400 Systolic blood pressure 114 mm[Hg] Eliud Josefa DO Work Phone: [facility] Healthcare Encounters Encounter Date Encounter Type Care Provider Facility Start: 01-10-2024 End: 01-10-2024 Bamboo flowsheet [employer] Work Phone: [facility] Start: 01-10-2024 End: 01-18-2024 Bamboo flowsheet Eliud Josefa DO Work Phone: [facility] Start: 01-10-2024 End: 01-18-2024 Clinisync Result Encounter Generic External Data Provider [facility] External Department Unsolicited Start: 01-10-2024 End: 01-11-2024 External Result Encounter [employer] Work Phone: [facility] External Department Unsolicited Start: 01-10-2024 End: 01-10-2024 Patient encounter procedure Eliud Josefa DO Work Phone: [facility] Healthcare Work Phone: Start: 01-10-2024 End: 01-10-2024 Periodic preventive med est patient 18-39 yrs Eliud Josefa DO Work Phone: [facility] Comment on above: Well woman exam with routine gynecological exam; Second trimester ; 18 weeks gestation of ; Vaginal discharge; STD exposure; Screening, , for anatomic survey; Gastroesophageal reflux in Start: 01-10-2024 End: 01-10-2024 ambulatory ELIUD JOSEFA Not Available Start: 01-01-2024 End: 01-01-2024 Bamboo flowsheet Teresa LowNossek DENTAL SERVICE CHIEF-SHOE CLEANER Work Phone: [facility] Start: 01-01-2024 End: 01-01-2024 Bamboo flowsheet Teresa Cherry-Nossek DENTAL SERVICE CHIEF-SHOE CLEANER Work Phone: [facility] Start: 01-01-2024 End: 01-01-2024 ambulatory TERESA CHERRY-NOSSEK Not Available Start: 01-01-2024 End: 01-01-2024 Office outpatient visit 25 minutes Teresa Cherry-Nossek DENTAL SERVICE CHIEF-SHOE CLEANER Work Phone: [facility] Comment on above: Generalized anxiety disorder (CMS/HCC) (Primary Dx) Start: 11-28-2023 End: 11-28-2023 Office outpatient visit 15 minutes Eliud Josefa DO Work Phone: [facility] Comment on above: First trimester preg anahy Start: 11-28-2023 End: 11-28-2023 ambulatory ELIUD JOSEFA Not Available Start: 11-28-2023 End: 11-28-2023 Bamboo flowsheet Eliud Josefa DO Work Phone: [facility] Start: 11-28-2023 End: 11-28-2023 Bamboo flowsheet Eliud Josefa DO Work Phone: [facility] Start: 11-28-2023 End: 11-28-2023 Clinisync Result Encounter Generic External Data Provider [facility] External Department Unsolicited Start: 11-27-2023 End: 11-27-2023 Office outpatient visit 15 minutes Teresa Cherry-Nossek DENTAL SERVICE CHIEF-SHOE CLEANER Work Phone: [facility] Comment on above: Attention deficit hy peractivity disorder (ADHD), combined type (CMS/HCC); Generalized anxiety disorder (CMS/HCC) Start: 11-27-2023 End: 11-27-2023 ambulatory TERESA M JO ANN-NOSSEK Not Available Start: 11-01-2023 End: 11-01-2023 ambulatory TERESA JO ANN-NOSSEK Not Available Start: 10-18-2023 End: 10-18-2023 ambulatory YSABEL CABRAL Not Available Start: 10-18-2023 End: 10-18-2023 Office outpatient visit 25 minutes Evonne Childress DO Work Phone: [facility] Comment on above: 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) (Primary Dx); Generalized anxiety disorder (CMS/HCC); Primary insomnia; , unspecified gestational age Start: 09-25-2023 End: 09-25-2023 ambulatory YSABLE CABRAL Not Available Start: 09-25-2023 End: 09-25-2023 ambulatory TERESA M JO ANN-NOSSEK Not Available Start: 2023 End: 2023 ambulatory YSABEL CABRAL Not Available Start: 08-21-2023 End: 08-21-2023 ambulatory YSABEL CABRAL Not Available Start: 08-16-2023 End: 08-16-2023 ambulatory CHLOE CARVAJAL Not Available Start: 08-10-2023 End: 08-10-2023 ambulatory YSABEL CABRAL Not Available Start: 08-07-2023 End: 08-07-2023 ambulatory TERESA M JO ANN-NOSSEK Not Available Start: 06-28-2023 End: 06-28-2023 ambulatory EVONNE FIOR Not Available Start: 06-20-2023 End: 06-20-2023 ambulatory [...] ambulatory DR TALITA DODSON Facility:[facility] Start: 05-11-2021 ([facility] C Vac) [facility] Co vid Vaccine Vicky Joe [facility] Start: 05-11-2021 End: 05-11-2021 ambulatory Vicky Joe Other [facility] [employer] Other Start: 03-01-2021 End: 03-01-2021 ambulatory CHLOE CARVAJAL Facility:[facility] Start: 12-10-2020 End: 12-10-[address] TALITA DODSON Facility:[facility] Procedures Date Procedure Procedure Detail Performing Clinician Start: 01-10-2024 RECURRENT VAGINITIS (HTRX) Eliud Josefa DO Work Phone: Start: 01-10-2024 Urnls dip stick/tabl et rgnt non-auto w/o micrscp Eliud Josefa DO Work Phone: Start: 01-10-2024 IGP,APTIMA HPV,AGE GDLN Eliud Josefa DO Work Phone: Start: 11-28-2023 ALL CBC WITH AUTO DIFF Eliud Josefa DO Work Phone: Start: 11-28-2023 Urnls dip stick/tabl et rgnt non-auto w/o micrscp Eliud Josefa DO Work Phone: Start: 12-18-2022 Cyclic citrullinated peptide antibody Comment on above: Performed By: #### C BC/2A, ESRCRP, CCP, HBC-M, HBSAG, HCV, CA, MG, RHF, URCA #### [facility] [address] [place], [address] Plan of Treatment Date Care Activity Detail Author Start: 04-02-2024 End: 04-02-2024 Patient encounter procedure 04/02/2024 11:00 AM EST Office Visit [facility] [address] [facility] [address] [place] [address] Teresa Ornelas, DENTAL SERVICE CHIEF-SHOE CLEANER [address] [place] [address] [place] [address] [facility] Start: 02-11-2024 End: 02-11-2024 Patient encounter procedure 02/11/2024 9:40 AM EST Routine [facility] [address] [address] [place] [phone] Eliud Vasquez, DO [address] [place] [address] [facility] Start: 01-28-2024 End: 01-28-2024 Professional / ancillary services management 01/28/2024 11:00 AM EST Ancillary Procedure [facility] [address] [place] [phone] [facility] Start: 01-10-2024 End: 07-09-2024 Alpha fetoprotein, maternal Alpha fetoprotein, maternal Lab Routine Second trimester 18 weeks gestation of Expected: 01/10/2024 (Approximate), Expires: 07/09/2024 [facility] Healthcare Comment on above: Expected: 01/10/2024 (Approximate), Expires: 07/09/2024 Start: 01-10-2024 End: 01-09-2025 US for US OB ANATOMY SINGLE W US OB CERVICAL LENGTH Imaging Routine Screening, , for anatomic survey Expected: 01/10/2024 (Approximate), Expires: 01/09/2025 [facility] Comment on above: Expected: 01/10/2024 (Approximate), Expires: 01/09/2025 Start: 01-03-2024 End: 01-03-2024 Patient encounter procedure 01/03/2024 11:20 AM EST Routine [facility] [address] [facility] [place] [phone] Eliud Vasquez, DO [address] [place] [address] [facility] Start: 01-01-2024 End: 01-01-2024 Patient encounter procedure 01/01/2024 11:30 AM EST Office Visit [facility] [address] [facility] [address] [place] [address] Teresa Ornelas, DENTAL SERVICE CHIEF-SHOE CLEANER [address] [place] [address] [place] [address] [facility] Start: 12-18-2023 End: 12-18-2023 Patient encounter procedure 12/18/2023 5:30 PM EDT Office Visit [facility] [place] [facility] [address] [place] [address] Evonne Childress, DO [address] [place], [place] [phone] [facility] [place] [facility] Start: 11-28-2023 End: 11-28-2023 Patient encounter procedure 11/28/2023 2:20 PM EDT Routine [facility] [address] [place] [phone] Eliud Vasquez, DO [address] [place], [place] [id number] [facility] Start: 10-28-2023 Influenza vaccination Influenza Vacc ine (#1) [facility] Start: 09-10-2017 Screening for malign ant neoplasm of cervix [facility] Healthcare Start: 09-10-2008 Screening for malign ant neoplasm of cervix Pap Smear [facility] Healthcare CHLAMYDIA TRACHOMATI S (GENITO/STI) CHLAMYDIA TRACHOMATIS (GENITO/STI) Lab Routine STD exposure Ordered: 01/10/2024 [facility] Healthcare Comment on above: Ordered: 01/10/2024 Cytology Cervical or vaginal smear or scraping study Pap Smear Pathology and Cytology Routine Well woman exam with routine gynecological exam Ordered: 01/10/2024 [facility] Comment on above: Ordered: 01/10/2024 Human papilloma viru s DNA [Presence] in Unspecified specimen by Probe with amplification HPV DNA probe, amplified Microbiology Routine Well woman exam with routine gynecological exam Ordered: 01/10/2024 [facility] Comment on above: Ordered: 01/10/2024 Neisseria gonorrhoea e DNA [Presence] in Unspecified specimen by ERIC with probe detection Neisseria gonorrhea DNA probe, direct Lab Routine STD exposure Ordered: 01/10/2024 [facility] Healthcare Comment on above: Ordered: 01/10/2024 SURESWAB(R) ADVANCED VAGINITIS PLUS, TMA SURESWAB(R) ADVANCED VAGINITIS PLUS, TMA Pathology and Cytology Routine Vaginal discharge Ordered: 01/10/2024 [facility] Healthcare Work Phone: Comment on above: Ordered: 01/10/2024 Immunizations Immunization Date Immunization Notes Care Provider Corrina hanson 05-11-2021 COVID-19 En Joe Other [employer] Other 10-02-2016 influenza, injectabl e, quadrivalent, preservative free Teresa Jo Ann-Nossek DENTAL SERVICE CHIEF-SHOE CLEANER Work Phone: [facility] 10-02-2016 influenza virus vaccine, unspecified formulation Teresa Jo Ann-Nossek DENTAL SERVICE CHIEF-SHOE CLEANER Work Phone: [facility] 10-13-2015 influenza, injectabl e, quadrivalent, preservative free Teresa Jo Ann-Nossek DENTAL SERVICE CHIEF-SHOE CLEANER Work Phone: [facility] 12-02-2014 influenza, seasonal, injectable, preservative free Teresa Jo Ann-Nossek DENTAL SERVICE CHIEF-SHOE CLEANER Work Phone: [facility] Healthcare Payers Date Payer Category Payer Medicaid [employer] [place] [employer] [id number] 2021-Present [address] [place] [address] [id number] 2021 Medicaid (Managed Care) [facility] MEDICAID [id number] 1987 Unknown [id number] 2.840.1.438834.3.579.2. 1987 Unknown [id number] 2.16840.1.495399.3.579.2. 1987 Unknown [id number] 2.840.1.357649.3.579.2. 1987 Unknown [id number] 2.840.1.729465.3.579.2. 1258 1987 Unknown [id number] 2.840.1.737012.3.579.2. 1258 1987 Unknown [id number] 2.840.1.427797.3.579.2. 1258 1987 Unknown [id number] 2.840.1.795193.3.579.2. 1258 1987 Unknown [id number] 2.840.1.140467.3.579.2. 1258 1987 Unknown [id number] 2.840.1.345861.3.579.2. 1258 1987 Unknown [id number] 2.840.1.508271.3.579.2. 1258 1987 Unknown [id number] 2.16840.1.198007.3.579.2. 1258 1987 Unknown [id number] 2.16840.1.804698.3.579.2. 1258 1987 Unknown [id number] 2.840.1.409074.3.579.2. 1258 1987 Unknown [id number] 2.16.840.1.298212.3.579.2. 9 1987 Unknown [id number] 2.16.840.1.976274.3.579.2. 1258 1987 Unknown [id number] 2.16.840.1.419695.3.579.2. 1258 1987 Unknown [id number] 2.16.840.1.995612.3.579.2. 1258 1987 Unknown [id number] 2.16.840.1.415283.3.579.2. 1258 1987 Unknown [id number] 2.16.840.1.716049.3.579.2. 1258 1987 Unknown [id number] 2.16.840.1.312137.3.579.2. 1258 1987 Unknown [id number] 2.16.840.1.547959.3.579.2. 1258 1987 Unknown [id number] 2.16.840.1.220951.3.579.2. 1258 1987 Unknown [id number] 2.16.840.1.913538.3.579.2. 1258 1987 Unknown [id number] 2.16.840.1.792798.3.579.2. 9 1959 Unknown [id number] 2.16.840.1.308949.19 Social History Date Type Detail Facility Unknown if ever smoked [facility] Other Start: 2022 End: 01-01-2024 Sex Assigned [facility] [employer] Other Start: 12-22-2022 Tobacco smoking stat [facility] Never smoked tobacco [facility] Start: 12-22-2022 Tobacco use and exposure Smokeless tobacco non-user [facility] Start: 10-18-2023 End: 11-01-2023 Alcoholic beverage [...] on file [facility] Start: 01-01-2024 End: 01-10-2024 Alcoholic beverage intake Ex-drinker (finding) [facility] Start: 01-01-2024 Alcohol Comment I have a glass of wine or 2 glasses each evening with dinner [facility] Clinical Notes 05-11-2021 to 01-10-2024 Betsey Malave, [facility] 01/10/2024 10:10 AM America Ornelas [facility] - 01/01/2024 11:30 AM Christine Lundberg, [facility] 11/28/2023 2:20 PM Sarah Silver [facility] 11/27/2023 11:00 AM EDT Note Date & Type Note Facility 01-10-2024 History of Present illness Narrative Reason for Appointment: Patient ID: Tiki Matson is a 38 y.o. female who presents for Well Women Visit, Routine Visit, and STI Screening Patient presents today for Annual Exam. and Return OB appointment. MEDICATIONS Current Outpatient Medications Medication Instructions albuterol HFA (ProAir HFA) 90 mcg/act inhaler fluticasone (Flonase) 50 MCG/ACT nasal spray 1 spray, Daily omeprazole (PRILOSEC) 20 mg, Oral, Daily before breakfast, Do not crush or chew. promethazine (PHENERGAN) 12.5 mg, Oral, Every 6 hours PRN, Take 1 tablet by mouth every 6 hours as needed for nausea. sertraline (ZOLOFT) 50 mg, Oral, Daily sertraline (ZOLOFT) 25 mg, Oral, Daily ALLERGIES Allergies Allergen Reactions Amitriptyline Other Reaction(s): Other (See Comments) Extreme drowsiness Aspirin Other Reaction(s): hives,difficulty breathing Cyclobenzaprine Diclofenac Unknown Ibuprofen Other Reaction(s): All NSAIDS, hives Lamotrigine Other Reaction(s): rash-per patient report Meloxicam Unknown Naproxen Unknown Nsaids Other Reaction(s): Unknown Zoloft [Sertraline] PROBLEMS Active Ambulatory Problems Diagnosis Date Noted Attention deficit hyperactivity disorder (ADHD), combined type ([facility]) 07/04/2022 Episodic mood disorder ([facility]) 07/04/2022 Generalized anxiety disorder ([facility]) 07/04/2022 Panic disorder ([facility]) 07/04/2022 Acquired scoliosis 09/09/2016 Allergic rhinitis 10/16/2019 Anxiety 01/31/2020 Asthma ([facility]) 12/31/2014 Chronic fatigue syndrome 07/03/2016 Chronic gastritis without bleeding 12/28/2022 Irritable bowel syndrome 07/03/2016 Migraine without aura and without status migrainosus, not intractable ([facility]) 09/19/2017 Mild intermittent asthma ([facility]) 02/28/2021 Primary localized osteoarthrosis of ankle and foot 03/13/2019 Vitamin D deficiency 12/28/2022 Headache 06/28/2023 Inadequate sleep hygiene 06/28/2023 Migraine ([facility]) 06/28/2023 Tenosynovitis of foot 06/28/2023 Nausea and vomiting 06/28/2023 Common migraine with intractable migraine ([facility]) 06/28/2023 Pain in limb 06/28/2023 Chronic tension-type headache, not intractable 06/28/2023 Sleep disturbance 06/28/2023 Insomnia, unspecified 06/28/2023 Other problems related to lifestyle 06/28/2023 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 08/10/2023 Resolved Ambulatory Problems Diagnosis Date Noted No Resolved Ambulatory Problems Past Medical History: Diagnosis Date Adenoma of left breast ADHD (attention deficit hyperactivity disorder) ([facility]) Anemia Back pain Common migraine ([facility]) 08/17/2015 Depression ([facility]) H/O colonoscopy H/O umbilical hernia repair Insomnia 06/25/2017 Migraines ([facility]) Nausea with vomiting 08/17/2015 Tendonitis of right hand Tension headache 08/17/2015 HISTORY PAST MEDICAL HISTORY SOCIAL HISTORY Past Medical History: Diagnosis Date Adenoma of left breast removed 2013 ADHD (attention deficit hyperactivity disorder) ([facility]) Anemia Anxiety Asthma ([facility]) Back pain Common migraine ([facility]/HCC) 08/17/2015 Depression ([facility]/HCC) H/O colonoscopy 2012 H/O umbilical hernia repair 2008 Headache 08/17/2015 Inadequate sleep hygiene 04/23/2018 Insomnia 06/25/2017 Migraine (CMS/HCC) 03/22/2017 Migraines ([facility]) Nausea with vomiting 08/17/2015 Pain in limb 08/20/2014 Sleep disturbance 11/30/2016 Tendonitis of right hand Tenosynovitis of foot 08/20/2014 Tension headache 08/17/2015 Vitamin D deficiency Social History Tobacco Use Smoking status: Never Smokeless tobacco: Never Tobacco comments: Vapes daily Vaping Use Vaping status: Every Day Substances: Nicotine, Flavoring Devices: Disposable Substance Use Topics Alcohol use: Not Currently Alcohol/week: 7.0 standard drinks of alcohol Types: 7 Glasses of wine per week Comment: I have a glass of wine or 2 glasses each evening with dinner Drug use: Not Currently Types: Benzodiazepines FAMILY HISTORY Family History Problem Relation Name Age of Onset Depression Mother Idania Swartz Anxiety disorder Mother Idania Swartz Hyperlipidemia Mother Idania Swartz Sarcoidosis Mother Idania Swartz Migraines Mother Idania Swartz Rheum arthritis Father Amandeep Matson Depression Father Amandeep Matson Alcohol abuse Father Amandeep Matson Stroke Father Amandeep Matson Asthma Other SURGICAL HISTORY Past Surgical History: Procedure Laterality Date BREAST SURGERY Left 12/2013 adenoma removed left breast COLONOSCOPY 06/25/2017 COLPOSCOPY 2013 LEG SURGERY 09/2014 tibial and fibular sesmoid removal TIBIA FRACTURE SURGERY Left 2019 tibial sesmoid removal UMBILICAL HERNIA REPAIR 2008 WISDOM TOOTH EXTRACTION 06/15/2017 REVIEW OF SYSTEMS Review of Systems: Review of Systems All other systems reviewed and are negative. OBJECTIVE Objective: Physical Exam Constitutional: Appearance: Normal appearance. She is well-developed. Genitourinary: Vulva normal. Breasts: Breasts are soft. Right: Normal. Left: Normal. Cardiovascular: Rate and Rhythm: Normal rate and [...] nursing note reviewed. Exam conducted with a meat blender present. Vitals: Estimated body mass index is 26.3 kg/m as calculated from the following: Height as of 10/18/23: 5' 3.75 . Weight as of this encounter: 152 lb. BP: 116/74 Patient's last menstrual period was 09/01/2023. ASSESSMENT & PLAN ICD-10-CM 1. Well woman exam with routine gynecological exam Z01.419 Pap Smear HPV DNA probe, amplified 2. Second trimester Z34.92 POCT urinalysis dipstick manually resulted Alpha fetoprotein, maternal Alpha fetoprotein, maternal 3. 18 weeks gestation of Z3A.18 POCT urinalysis dipstick manually resulted Alpha fetoprotein, maternal Alpha fetoprotein, maternal 4. Vaginal discharge N89.8 SURESWAB(R) ADVANCED VAGINITIS PLUS, TMA 5. STD exposure Z20.2 CHLAMYDIA TRACHOMATIS (GENITO/STI) Neisseria gonorrhea DNA probe, direct 6. Screening, , for anatomic survey Z36.89 US OB ANATOMY SINGLE W US OB CERVICAL LENGTH 7. Gastroesophageal reflux in O99.619 omeprazole (PriLOSEC) [address] capsule K21.9 Return OB/Annual Exam: Patient presents today for an annual exam/routine obstetrics appointment. Patient is currently 18w5d . Patient is doing well and states she has no complaints. Pap/cultures was obtained without difficulty and patient was given [facility] order to have obtained. Sent Omeprazole to patients pharmacy. Patient unable to take ASA due to allergy. Orders Placed This Encounter Procedures HPV DNA probe, amplified US OB ANATOMY SINGLE W US OB CERVICAL LENGTH CHLAMYDIA TRACHOMATIS (GENITO/STI) Neisseria gonorrhea DNA probe, direct Alpha fetoprotein, maternal POCT urinalysis dipstick manually resulted Follow Up: Patient is to return to our office in 4 weeks for routine OB appointment Documented by Betsey Malave LPN on behalf of: Eliud Vasquez DO documented in this encounter [facility] 01-01-2024 History of Present illness Narrative Images [...] visit. 20 weeks. 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 [facility] product [facility]. Psychosocial stressors include . SUBJECTIVE: PAST MEDICAL HISTORY: Past Medical History: Diagnosis Date Adenoma of left breast removed 2013 ADHD (attention deficit hyperactivity disorder) ([facility]) Anemia Anxiety Asthma ([facility] Back pain Common migraine ([facility]) 08/17/2015 Depression ([facility]) H/O colonoscopy 2012 H/O umbilical hernia repair 2007 Headache 08/17/2015 Inadequate sleep hygiene 04/23/2018 Insomnia 06/25/2017 Migraine (CMS/HCC) 03/22/2017 Migraines ([facility]) Nausea with vomiting 08/17/2015 Pain in limb [...] and Time Memory/Concentration Short term intact and fdc intact Insight/Judgement Fair OBJECTIVE: Visit Vitals LMP [...] Visit time :32min documented in this encounter [facility] 11-28-2023 History of Present illness Narrative Reason [...] Attention deficit hyperactivity disorder (ADHD), combined type ([facility]) 07/04/2022 Episodic mood disorder ([facility]) 07/04/2022 Generalized anxiety disorder ([facility]) 07/04/2022 Panic disorder ([facility]) 07/04/2022 Acquired scoliosis 09/09/2016 Allergic rhinitis 10/16/2019 Anxiety 01/31/2020 Asthma ([facility]) 12/31/2014 Chronic fatigue syndrome 07/03/2016 Chronic gastritis without bleeding 12/28/2022 Irritable bowel syndrome 07/03/2016 Migraine without aura and without status migrainosus, not intractable ([facility]) 09/19/2017 Mild intermittent asthma ([facility]) 02/28/2021 Primary localized osteoarthrosis of ankle and foot 03/13/2019 Vitamin D deficiency 12/28/2022 Headache 06/28/2023 Inadequate sleep hygiene 06/28/2023 Migraine ([facility]/HCC) 06/28/2023 Tenosynovitis of foot 06/28/2023 Nausea and vomiting 06/28/2023 Common migraine with intractable migraine (CMS/HCC) 06/28/2023 Pain in limb 06/28/2023 Chronic tension-type headache, not intractable 06/28/2023 Sleep disturbance 06/28/2023 Insomnia, unspecified 06/28/2023 Other problems related to lifestyle 06/28/2023 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 08/10/2023 Resolved Ambulatory Problems Diagnosis Date Noted No Resolved Ambulatory Problems Past Medical History: Diagnosis Date Adenoma of left breast ADHD (attention deficit hyperactivity disorder) ([facility]) Anemia Back pain Common migraine ([facility]/HCC) 08/17/2015 Depression ([facility]) H/O colonoscopy H/O umbilical hernia repair Insomnia 06/25/2017 Migraines ([facility]) Nausea with vomiting 08/17/2015 Tendonitis of right hand Tension headache 08/17/2015 HISTORY PAST MEDICAL HISTORY SOCIAL HISTORY Past Medical History: Diagnosis Date Adenoma of left breast removed 2013 ADHD (attention deficit hyperactivity disorder) ([facility]) Anemia Anxiety Asthma ([facility] Back pain Common migraine ([facility]/HCC) 08/17/2015 Depression ([facility]) H/O colonoscopy 2012 H/O umbilical hernia repair 2008 Headache 08/17/2015 Inadequate sleep hygiene 04/23/2018 Insomnia 06/25/2017 Migraine (CMS/HCC) 03/22/2017 Migraines ([facility]) Nausea with vomiting 08/17/2015 Pain in limb [...] nursing note reviewed. Exam conducted with a meat blender present. Vitals: Estimated body mass index is [...] or undercooked meat, and [facility] Patient has been consulted regarding any further [...] Eliud Vasquez DO documented in this encounter [facility] 11-27-2023 History of Present illness Narrative Images [...] work done. 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 [facility]. Psychosocial stressors include . SUBJECTIVE: PAST [...] and Time Memory/Concentration Short term intact and fdc intact Insight/Judgement Good OBJECTIVE: Visit Vitals LMP [...] F/U 6 weeks documented in this encounter [facility] 10-18-2023 History of Present illness Narrative Images from the original note were not included. Mendoza Matson is a 38 y.o. female. Patient was to be seen for botox injections but she just found out that she is . She was not planning but not preventing . She still has to see her police and fire dispatcher. She has been receiving the Botox injections [...] during those pregnancies. 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 Objective Neurological Exam Physical Exam No chief complaint on file. Mendoza Matson, 38 y.o., female HPI Past Medical History: Diagnosis Date Adenoma of left breast removed 2013 ADHD (attention deficit hyperactivity disorder) (CMS/HCC) Anemia Anxiety Asthma (CMS/HCC) Back pain Common migraine (CMS/HCC) 08/17/2015 Depression (CMS/HCC) H/O colonoscopy 2012 H/O umbilical hernia repair 2007 Headache 08/17/2015 Inadequate sleep hygiene 04/23/2018 Insomnia 06/25/2017 Migraine ([facility]/HCC) 03/22/2017 Migraines ([facility]) Nausea with vomiting 08/17/2015 Pain in limb [...] Return to clinic: documented in this encounter [facility] 08-03-2021 Note FINDINGS: Sonographic evaluation targeted to the painful palpable areas within the right breast. Multiple subcentimeter benign simple cysts within the right upper quadrant. Mild periareolar ductal dilatation (3-4 mm diameter). No suspicious solid nodule or mass. IMPRESSION: BI RADS 2 : BENIGN FINDINGS Report reported and signed by Alexei Smith on 08/03/2021 [id number] [facility] 05-11-2021 Evaluation note Encounter Date Diagnosis Assessment Notes Apr, Encounter for immunization (ICD-10 - Z23) Patient presents for COVID-19 vaccination #2. Pre-screening form answers evaluated with patient. Patient denies current illness or allergic reaction to component of COVID-19 vaccine. Patient provided with current copy of EUA. [facility] Other Evaluation note* Diagnosis Attention deficit hyperactivity [...] [facility] Diagnosis Well woman exam with routine gynecological exam Routine gynecological examination Second trimester state, incidental 18 weeks gestation of Vaginal discharge Leukorrhea, not specified as infective STD exposure Screening, , for anatomic survey Encounter for anatomic survey Gastroesophageal reflux in documented in this [facility] Narrative - Reported* Type Description Date Medical History DEPRESSIVE DISORDER Medical History ASTHMA Medical History ANXIETY Medical History MIGRAINES Medical History BIPOLAR Medical History BACK PAIN Medical History ANEMIA Surgical History umbilical herniorrhaphy 2007 Surgical History colposcopy 2012 Surgical History adenoma removed from left breas t Surgical History tibial and fibular sesmoid 8-20 15 [facility] Other Summary Purpose Family History No Family History Records FoundNo Family History Records FoundNo Family History Records FoundNo Family History Records FoundNo Family History Records Found Advance Directives No Advanced Directives Records FoundNo Advanced Directives Records FoundNo Advanced Directives Records FoundNo Advanced Directives Records FoundNo Advanced Directives Records Found Additional Source Comments INFORMATION SOURCE (unrecogn ized section and content) DATE CREATED AUTHOR 05/25/2021 [facility] DATE CREATED AUTHOR AUTHOR'S ORGANIZ ATION 08/04/2021 [facility] DATE CREATED AUTHOR AUTHOR'S ORGANIZ ATION 11/23/2021 [facility] DATE CREATED AUTHOR AUTHOR'S ORGANIZ ATION 12/19/2022 [facility] DATE CREATED AUTHOR AUTHOR'S ORGANIZ ATION 01/12/2024 [facility] EPIC REASON FOR VISIT (unrecogniz ed section and content) Reason Comments Routine Visit Reason Comments Med Management Follow-up Reason Comments Well Women Visit Routine Visit STI Screening Care Teams (unrecognized sec tion and content) [employer] Relationship Specialty Start Date End Date Ysabel Cabral MD [address] [place] [address] PCP - General Family Medicine 07/29/22 Ale Zaldivar MD [address] [place] [address] PCP - [facility] 05/28/23 [employer] Relationship Specialty Start Date End Date Ysabel Cabral MD [address] [place] [address] PCP - General Family Medicine 07/29/22 Ale Zaldivar MD [address] [place] [address] PCP - [facility] 05/28/23 [employer] Relationship Specialty Start Date End Date Ysabel Cabral MD [address] [place] [address] PCP - General Family Medicine 07/29/22 Ale Zaldivar MD [address] [place] [address] PCP - [facility] 05/28/23 [employer] Relationship Specialty Start Date End Date Ysabel Cabral MD [address] [place] [address] PCP - [facility] 07/29/22 Ale Zaldivar MD [address] [place] [address] PCP - [facility] 05/28/23 [employer] Relationship Specialty Start Date End Date Ysabel Cabral MD [address] [place] [address] PCP - [facility] 07/29/22 Ale Zaldivar MD [address] [place] [address] PCP - [facility] 05/28/23 [employer] Relationship Specialty Start Date End Date Ysabel Cabral MD [address] [place] [address] PCP - [facility] 07/29/22 Ale Zaldivar MD [address] [place] [address] PCP - [facility] 05/28/23 [employer] Relationship Specialty Start Date End Date Ysabel Cabral MD [address] [place] [address] PCP - General Family Medicine 07/29/22 Chloe Carvajal NP [address] [place] [address] PCP - [facility] 11/27/23 [employer] Relationship Specialty Start Date End Date Ysabel Cabral MD [address] [place] [address] PCP - [facility] 07/29/22 Chloe Carvajal NP [address] [facility] [place] [address] PCP - [facility] 11/27/23 [employer] He[employer] Relationship Specialty Start Date End Date Ysabel Cabral MD [address] [place] [address] PCP - [facility] 07/29/22 Chloe Carvajal NP [address] [place] [address] PCP - [facility] 11/27/23 FOR RECORDS PERTAINING TO PATIENTS WHO ARE [...] BE BASED ON THE PRIMARY CLINICAL RECORDS. [facility] [employer] [facility]. provides no warranty or guarantee of the accuracy or completeness of information in this document.
== END 2024-01-28 11:08 | disposition home or self-care (01) ==
LOC: NOMS 11:07
PROVIDERS: PCP Family Medicine; Visit Provider Obstetrics & Gynecology
DX: Z36.89 Encounter for other specified antenatal screening (principal); Z3A.21 21 weeks gestation of pregnancy
CPT/HCPCS: 76805; 76817

== ENCOUNTER 2024-03-07 19:31 | Observation (INO) | payer OTHER, SELFPAY ==
--- OUTSIDE RECORDS SUMMARY | 2024-03-07 19:36 | XMS_ITS | CCD ---
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 Name Role Phone Vicky Joe Unavailable WEST, DR SANON Admitting Unavailable KARASIK, DR SANON Attending Unavailable KARASIK, DR SANON Consulting Unavailable KARASIK, DR SANON Attending Unavailable KARASIK, DR SANON Consulting Unavailable ESEASIK, DR SANON Admitting Unavailable CHLOE CARVAJAL Attending Unavailable CHLOE CARVAJAL Consulting Unavailable CHLOE CARVAJAL Admitting Unavailable Ysabel Cabral MD Primary Care Provider Ale Zaldivar MD Unavailable Dillon TEACHER LEARNING DISABLED, Chloe Swift Unavailable Dillon TEACHER LEARNING DISABLED, Chloe Swift Unavailable TERESA ORNELAS Attending Unavailab TERESA Rider Attending Unavailab TERESA Rider Attending Unavailab EVONNE Hargrove Attending Unavailable TERESA ORNELAS Attending Unavailab YSABEL Don Attending Unavailable CHLOE CARVAJAL Attending Unavailable CHLOE CARVAJAL Referring Unavailable YSABEL CABRAL Attending Unavailable YSABEL CABRAL Attending Unavailable TERESA ORNELAS Attending Unavailab YSABEL Don Attending Unavailable EVONNE CHILDRESS Attending Unavailable YSABEL CABRAL Attending Unavailable TERESA ORNELAS Attending Unavailab RAGHAVENDRA Bustamante Attending Unavailable TERESA ORNELAS Attending Unavailab RAGHAVENDRA Bustamante Attending Unavailable RAGHAVENDRA VASQUEZ Attending Unavailable EMERITA WARREN Attending Unavailable Allergies Allergy Classification Reported Allergen(s) Allergy Type Date of Onset Reaction(s) Facility (1 source) Aspirin Drug Allergy shortness of breath [facility] Other (20 sources) Diclofenac Drug Allergy 07-05-19 23 Unknown [facility] Other (20 sources) Ibuprofen Drug Allergy 07-05-19 Unknown [facility] Other (20 sources) Naproxen Drug Allergy 07-05-19 23 Unknown [facility] Other (20 sources) NSAIDs Drug allergy 07-05-19 Unknown [facility] Other (1 source) Aspirin Drug Allergy 02-26-18 90 [facility] (1 source) cyclobenzaprine Drug Allergy 01-10-20 15 [facility] (1 source) Diclofenac Drug Allergy 01-10-20 15 [facility] (1 source) Ibuprofen Drug Allergy 08-04-19 16 [facility] (1 source) NSAIDs Drug allergy (disorder) 01-02-20 14 [facility] (20 sources) Aluminum aspirin Drug Allergy 07-05-19 23 [facility] (20 sources) Amitriptyline Drug Allergy 03-22-19 18 [facility] (20 sources) cyclobenzaprine Drug Allergy 01-24-20 16 [facility] (20 sources) Lamotrigine Allergy to substance 07-05-19 23 [facility] (20 sources) meloxicam Drug Allergy 07-05-19 23 Unknown [facility] (13 sources) Sertraline Drug Allergy 01-01-20 24 [facility] Medications Current Medications Medication Drug Class(es) Dates [...] to dissolve Orally Twice a day Active cyclobenzaprine hydrochloride 5 mg oral tablet (3 sources) Muscle Relaxant Start: 02-11-2024 take 0.5-1 tablets by mouth once at bedtime cyclobenzaprine (Flexeril) 5 MG tablet Indications: 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) 1/2-1 po q hs 30 tablet 2 02/11/2024 Active ethinyl estradiol 0.03 mg / norethindrone acetate 1.5 mg oral tablet (1 source) Estrogen take 1 tablet by mouth every twenty-four hours June.5 1.5-30 MG-MCG 1 tablet Orally Once a day Active Fish Oils (1 source) take 1 capsule by mouth once daily Fish Oil 1000 MG 1 capsule Orally Once a day Active fluticasone propionate 0.05 mg/actuat metered dose nasal spray (20 sources) Corticosteroid take 1 spray(s) nasal route [...] Externally Three times a day Active Magnesium (8 sources) Start: 4 End: 4 take 1 tablet by mouth once daily magnesium 200 MG tablet Indications: Other migraine without status migrainosus, not intractable (CMS/HCC) Take 1 tablet (200 mg) by mouth Daily 30 tablet 11/15/2023 12/15/2023 Active Start: 11-01-2023 End: 12-01-2023 take 1 tablet by mouth once daily magnesium 200 MG tablet Indications: Other migraine without status migrainosus, not intractable (CMS/HCC) Take 1 tablet (200 mg) by mouth Daily 30 tablet 11/01/2023 12/01/2023 Active montelukast 5 mg chewable tablet (1 [...] omeprazole 20 mg delayed release oral capsule (11 sources) Proton Pump Inhibitor Start: End: take 1 capsule by mouth before mealtime omeprazole (PriLOSEC) [address] capsule Indications: Gastroesophageal Reflux Disease , Heartburn Take 1 capsule (20 mg) by mouth in the morning. Take before meals. Do not crush or chew.. 30 capsule 3 01/10/2024 Active take 1 capsule by mo uth every twenty-four hours Omeprazole 20 MG 1 capsule Orally Once a day Active ondansetron 4 mg oral tablet (8 sources) Serotonin-3 Receptor Antagonist Start: 10-18-2023 End: 11-17-2023 take 1 tablet by mouth every eight hours for nausea ondansetron (Zofran) 4 MG tablet Indications: Morning sickness Take 1 tablet (4 mg) by mouth every 8 (eight) hours if needed for nausea or vomiting 40 tablet 10/18/2023 11/17/2023 Active Start: 10-18-2023 End: 10-31-2023 take 1 tablet by mouth every eight hours for nausea ondansetron ODT (Zofran-ODT) 4 MG disintegrating tablet Indications: Morning sickness Take 1 tablet (4 mg) by mouth every 8 (eight) hours if needed for nausea or vomiting for up to 13 days 40 tablet 10/18/2023 10/31/2023 Active 24 hr paliperidone 1.5 mg extended release oral tablet (1 source) Atypical Antipsychotic take 2 tablets by mouth at bedtime Invega 1.5 MG 2 tablets in the morning Orally AT BEDTIME Active pantoprazole 40 mg delayed release oral tablet (1 source) Proton Pump Inhibitor Start: 08-03-19 take 1 tablet by mouth every twenty-four hours Pantoprazole Sodium 40 mg 1 tablet Orally Once a day for 30 days Jul, Active promethazine hydrochloride 12.5 mg oral tablet (20 sources) Phenothiazine Start: 10-22-19 24 take 1 [...] mg / caffeine 40 mg oral tablet (13 sources) Barbiturate, Central Nervous System Stimulant, Methylxanthine Start: 09-24-2023 End: 11-28-2023 butalbital-acetam inophen-caffeine 50-325-40 MG tablet Indications: 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) TAKE 1 TABLET BY MOUTH AT ONSET OF HEADACHE *MAY REPEAT IN 2 HRS NEEDED *MAX 2DAYS/WEEK 30 DAYS 20 tablet 1 09/24/2023 11/28/2023 Discontinued (Other) [id number] 200 actuat albuterol 0.09 mg/actuat metered dose [...] mcg/act inhaler Active onabotulinumtoxina 200 unt injection (20 sources) Acetylcholine Release Inhibitor End: 01-10-2024 onabotulinumtoxinA (Botox) 200 units injection 01/10/2024 Discontinued (Other) cholecalciferol 0.025 mg oral tablet (20 sources) Vitamin D Start: 10-25-2021 End: 01-10-2024 take 1 tablet by mouth once daily D3-1000 25 MCG (1000 UT) tablet TAKE 1 TABLET BY MOUTH EVERY DAY FOR 90 DAYS 10/25/2021 01/10/2024 Discontinued (Other) dicyclomine hydrochloride 20 mg oral tablet (11 sources) Anticholinergic Start: 01-17-2023 End: 11-28-2023 take [...] TIMES A DAY for 30 days Active sertraline 50 mg oral tablet (20 sources) Serotonin Reuptake Inhibitor Start: 01-01-2024 End: 02-11-2024 take 0.5 tablet by mouth once daily sertraline (Zoloft) 50 MG tablet Indications: Generalized anxiety disorder (CMS/HCC) Take 0.5 tablets (25 mg) by mouth Daily 30 tablet 1 01/01/2024 02/11/2024 Discontinued Start: 08-07-2023 End: 11-26-2024 take 1 tablet by mouth once daily sertraline (Zoloft) 50 MG tablet Indications: Generalized anxiety disorder (CMS/HCC) Take 1 tablet (50 mg) by mouth Daily 30 tablet 1 11/27/2023 01/01/2024 Discontinued tiZANidine 4 mg oral tablet (20 sources) Central alpha-2 Adrenergic Agonist End: 01-10-2024 tiZANidine (Zanaflex) 4 MG tablet 1 (one) time each day at the same time. 01/10/2024 Discontinued (Other) take 1 capsule by mouth every ei ght hours Zanaflex 4 MG 1 capsule as needed Orally Three times a day Active vitamin b12 2.5 mg oral lozenge (20 sources) Vitamin B12 Start: 07-26-2021 End: 01-10-2024 [...] Chronic Attention-deficit, conduct, and disruptive behavior disorders (20 sources) Attention deficit hyperactivity disorder, combined type; Translations: [Attention-deficit hyperactivity disorder, combined type] Onset: 3 11-27-2023 Chronic Esophageal disorders (1 source) Gastroesophageal reflux disease; Translations: [Gastro-esophageal reflux disease without esophagitis] Chronic Gastritis and duodenitis (20 sources) Chronic gastritis; Translations: [Unspecified chronic gastritis [...] 2 Resolved: 2 Episodic Malaise and fatigue (20 sources) Chronic fatigue syndrome; Translations: [Chronic fatigue syndrome] Onset: 7 12-28-2022 Chronic Menstrual disorders (1 source) Missed period; Translations: [Irregular menstruation, unspecified] 11-01-2023 Chronic Miscellaneous mental health disorders (4 sources) Primary insomnia; Translations: [Primary insomnia] 12-17-2023 Chronic Mood disorders (20 sources) Episodic mood disorder; Translations: [Unspecified mood [affective] disorder] Onset: 3 07-04-2022 Chronic Nutritional deficiencies (20 sources) Vitamin D deficiency; Translations: [Vitamin D deficiency, unspecified] Onset: 3 12-28-2022 Chronic Osteoarthritis (20 sources) Localized, primary osteoarthritis of the ankle and/or foot; Translations: [Primary osteoarthritis, unspecified ankle and foot] Onset: 0 12-28-2022 Chronic Other acquired deformities (20 sources) Acquired scoliosis; Translations: [Scoliosis, unspecified] Onset: 7 12-28-2022 Chronic Other complications of (2 sources) Gastroesophageal reflux disease in ; Translations: [Diseases of the digestive system complicating , unspecified trimester] 01-10-2024 Episodic Other female genital disorders (2 sources) Vaginal discharge; Translations: [Other specified noninflammatory disorders of vagina] 01-10-2024 Episodic Other gastrointestinal disorders (20 sources) Irritable bowel syndrome; Translations: [Irritable bowel syndrome without diarrhea] Onset: 7 12-28-2022 Chronic Other and delivery including normal (10 sources) First trimester ; Translations: [Encounter for supervision of normal , unspecified, first trimester] 11-28-2023 Episodic Other screening for suspected conditions (not mental disorders or infectious disease) (8 sources) Encounter for screening for malignant neoplasm of cervix; Translations: [Patient encounter status] Onset: 2 Episodic Other upper respiratory disease (20 sources) Allergic rhinitis; Translations: [Allergic rhinitis, unspecified] Onset: 0 12-28-2022 Chronic Residual codes; unclassified (2 sources) Gestation period, 18 weeks; Translations: [18 weeks gestation of ] 01-10-2024 Episodic Residual codes; unclassified (2 sources) Gestation period, 23 weeks; Translations: [23 weeks gestation of ] 02-11-2024 Episodic Unclassified (2 sources) CONTACT W/AND (SUSP) EXPOS COVID-19; Translations: [CONTACT W/AND (SUSP) EXPOS COVID-19] Onset: 2 Viral infection (1 source) COVID-19; Translations: [COVID-19] Onset: 2 Past or Other Problems Problem Classification Problem Date Documented Da te Episodic/Chronic Abdominal pain (2 sources) Epigastric pain; Translations: [Epigastric pain] Episodic Headache; including migraine (20 sources) Headache; Translations: [Headache] Onset: 06-28-2023 06-28-2023 Episodic Mood disorders (20 sources) Mood disorders Onset: 06-11-2023 06-11-2023 Nausea and vomiting (20 sources) Nausea and vomiting; Translations: [Nausea with vomiting, unspecified] Onset: 06-28-2023 06-28-2023 Episodic Other complications of (2 sources) Morning sickness; Translations: [Mild hyperemesis gravidarum] 10-18-2023 Episodic Other connective tissue disease (20 sources) Tenosynovitis of foot; Translations: [Tenosynovitis of foot] Onset: 06-28-2023 06-28-2023 Episodic Other connective tissue disease (20 sources) Pain in limb; Translations: [Pain in [...] Translations: [Diarrhea, unspecified] Episodic Residual codes; unclassified (20 sources) Inadequate sleep hygiene; Translations: [Inadequate sleep hygiene] Onset: 06-28-2023 06-28-2023 Episodic Residual codes; unclassified (20 sources) Disturbance in sleep behavior; Translations: [Sleep disorder, unspecified] Onset: 06-28-2023 06-28-2023 Episodic Residual codes; unclassified (20 sources) Insomnia; Translations: [Insomnia, unspecified] Onset: 06-28-2023 06-28-2023 Episodic Residual codes; unclassified (20 sources) Other problems related to lifestyle; Translations: [Other problems related to lifestyle] Onset: 06-28-2023 06-28-2023 Episodic Residual codes; unclassified (6 sources) Lifestyle; Translations: [Other problems related to lifestyle] Onset: 06-28-2023 06-28-2023 Episodic Unclassified (1 source) CONTACT W/AND (SUSP) EXPOS COVID-19; Translations: [CONTACT W/AND (SUSP) EXPOS COVID-19] Onset: 03-01-2021 Results Test Name Value Interpretation Reference Range Facility Urinalysis macro (dipstick) panel (U)on 02-11-2024 Bilirubin, UA Negative Negative - 4(70) +++ mg/dL [facility] Blood, UA Negative Negative - 50 Armand/mcL [facility] Clarity, UA Clear [facility] Color, UA Yellow [facility] Glucose, UA Negative Negative - 1999(110) ++++ mg/dL [facility] Interpretation and review of laboratory results Abnormal [facility] Ketones, UA Negative Negative - 160(16) ++++ mg/dL [facility] Leukocytes, UA Negative Negative - 500+++ Doe/mcL [facility] Nitrite, UA Negative Negative - Positive [facility] pH, UA 7.5 5 - 9 [facility] Protein, UA Trace Negative - 2000(20) ++++ mg/dL [facility] Spec Grav, UA 1.015 1 - 1.03 [facility] Urobilinogen, UA 0.2 0.2 - 12 mg/dL [facility] IGP,APTIMA HPV,AGE GDLNon AGE GDLN ACOG TESTING Note . [facility] Comment on above: TESTS RESULT FLAG UN ITS REF RANGE LAB Clinician Provided Cytology Information Source.............Cervix Other.............. No. of containers..01 ThinPrep Vial Age Sobeida MARES [place]... 32 FLAG LEGEND: L-Low Normal,H-High Normal,LL-Alert Low,HH-Alert High <-Panic Low,>-Panic High,A-Abnormal,AA-Critical Abnormal Performed at: 01 =[address] [id number] Judith Ventura MD, HPV APTIMA Negative Negative [facility] Comment on above: This nucleic acid am plification test detects fourteen high- risk HPV types (16,18,31,33,35,39,45,51,52,56,58,59,66,68) without differentiation. Performed at: =[address] [id number] Assessment Clinician: Judith Ventura MD, Phone: [phone] Performed at: [address] [id number] Assessment Clinician: Judith Ventura MD, Phone: [phone] IGP, APTIMA HPV, RFX 16[birth year]18,45 Note . [facility] Comment on above: TESTS RESULT FLAG UN ITS REF RANGE LAB DIAGNOSIS: 02 NEGATIVE FOR INTRAEPITHELIAL LESION OR MALIGNANCY. Specimen adequacy: 02 Satisfactory for evaluation. Endocervical and/or squamous metaplastic cells (endocervical component) are present. Performed by: 02 Ashli Frank, Relief Master (ASCP) . 02 Note: Note 02 The [...] <-Panic Low,>-Panic High,A-Abnormal,AA-Critical Abnormal Performed at: [address] [id number] Judith Ventura MD, SPATULA-ALONE CERVIX [facility] RECURRENT VAGINITIS (HTRX)on 01-11-2024 ATOPOBIUM VAGINAE 0 [facility] ATOPOBIUM VAGINAE Not detected [facility] BVAB 2,3 (BACTERIAL VAGINOSIS ASSOCIATED BACTERIA 2, 3); MOBILUNCUS SPP 0 [facility] BVAB 2,3 (BACTERIAL VAGINOSIS ASSOCIATED BACTERIA 2, 3); MOBILUNCUS SPP Not detected [facility] LOC ALBICANS, PARAPSILOSIS, TROPICALIS 0 [facility] LOC ALBICANS, PARAPSILOSIS, TROPICALIS Not detected [facility] LOC GLABRATA 0 [facility] LOC GLABRATA Not detected [facility] LOC KRUSEI [address] [facility] LOC KRUSEI Not detected [facility] CHLAMYDIA TRACHOMATIS 0 [facility] CHLAMYDIA TRACHOMATIS Not detected [facility] GARDNERELLA VAGINALIS 0 [facility] GARDNERELLA VAGINALIS Not detected [facility] MEGASPHAERA (TYPES 1, 2) 0 [facility] MEGASPHAERA (TYPES 1, 2) Not detected [facility] MYCOPLASMA GENITALIUM 0 [facility] MYCOPLASMA GENITALIUM Not detected [facility] NEISSERIA GONORRHOEAE 0 [facility] NEISSERIA GONORRHOEAE Not detected [facility] TRICHOMONAS VAGINALIS 0 [facility] TRICHOMONAS VAGINALIS Not detected [facility] Urinalysis macro (dipstick) panel (U)on 01-10-2024 Bilirubin, UA Negative Negative - 4(70) +++ mg/dL [facility] Blood, UA Negative Negative - 50 Armand/mcL [facility] Clarity, UA Clear [facility] Color, UA Yellow [facility] Glucose, UA Negative Negative - 1999(110) ++++ mg/dL [facility] Interpretation and review of laboratory results Abnormal [facility] Ketones, UA Positive Negative - 160(16) ++++ mg/dL [facility] Leukocytes, UA Negative Negative - 500+++ Doe/mcL [facility] Nitrite, UA Negative Negative - Positive [facility] pH, UA 7 5 - 9 [facility] Protein, UA Negative Negative - 1999(20) ++++ mg/dL [facility] Spec Grav, UA 1.015 1 - 1.03 [facility] Urobilinogen, UA 1.0 0.2 - 12 mg/dL [facility] ALL CBC WITH AUTO DIFFon BASOPHILS ABSOLUTE AUTO 0.0 [facility] Basophils/100 WBC (Bld) 0.2 % 0.2 - 2.0 % [facility] Eosinophils/100 WBC (Bld) 2.3 % 0.9 - 7.0 % [facility] Erythrocyte distribution width (RBC) [Ratio] 12.3 % 11.0 - 15.0 % [facility] Hematocrit (Bld) [Volume fraction] 37.1 % 36.0 - 48.0 % [facility] Hemoglobin (Bld) [Mass/Vol] 12.3 g/dL 12.0 - 16.0 g/dL [facility] IMMATURE GRANULOCYTES ABS AUTO 0.04 High [facility] Immature granulocytes/100 WBC (Bld) 0.4 % 0.0 - 0.5 % [facility] Interpretation and review of laboratory results Abnormal [facility] LYMPHOCYTES ABSOLUTE AUTO 2.7 [facility] Lymphocytes/100 WBC (Bld) 28.4 % 20.5 - 60.0 % [facility] MCH (RBC) [Entitic mass] 28.0 pg 26.7 - 34.0 pg [facility] MCHC (RBC) [Mass/Vol] 33.2 g/dL 29.9 - 35.2 g/dL [facility] MCV (RBC) [Entitic vol] 84.3 fL 81.0 - 99.0 fL [facility] MONOCYTES ABSOLUTE AUTO 0.5 [facility] Monocytes/100 WBC (Bld) 5.0 % 1.7 - 12.0 % [facility] NEUTROPHILS ABSOLUTE AUTO 6.0 [facility] Neutrophils/100 WBC (Bld) 63.7 % 43.0 - 75.0 % [facility] Platelet mean volume (Bld) [Entitic vol] 10.4 fL 9.5 - 13.5 fL [facility] TBH EO # 0.2 [facility] PLT 253 [facility] TB RBC 4.40 [facility] WBC 9.4 [facility] Urinalysis macro (dipstick) panel (U)on 11-28-2023 Bilirubin, UA Negative Negative - 4(70) +++ mg/dL [facility] Blood, UA Negative Negative - 50 Armand/mcL [facility] Clarity, UA Clear [facility] Color, UA Yellow [facility] Glucose, UA Negative Negative - 2000(110) ++++ mg/dL [facility] Interpretation and review of laboratory results Normal [facility] Ketones, UA Negative Negative - 160(16) ++++ mg/dL [facility] Leukocytes, UA Negative Negative - 500+++ Doe/mcL [facility] Nitrite, UA Negative Negative - Positive [facility] pH, UA 7.0 5 - 9 [facility] Protein, UA Negative Negative - 2000(20) ++++ mg/dL [facility] Spec Grav, UA 1.025 1 - 1.03 [facility] Urobilinogen, UA 1.0 0.2 - 12 mg/dL [facility] URINE CULTURE, ROUTINEon Bacteria identified Cx Nom (U) Urine Culture, Routine [facility] Bacteria identified Cx Nom (U) Culture shows less than 10,000 colony forming units of bacteria per [facility] Bacteria identified Cx Nom (U) milliliter of urine. This colony count is not generally considered [facility] Bacteria identified Cx Nom (U) to be clinically significant. [facility] Bacteria identified Cx Nom (U) [facility]formed at: [facility] Bacteria identified Cx Nom (U) [address], [place] [id number] [facility] Bacteria identified Cx Nom (U) Assessment Clinician: Michael Berry PhD, Phone: [phone] [facility] HCG ( test) Ql (U)o n 11-01-2023 Interpretation and review of laboratory results Abnormal [facility] Preg Test, Ur Positive [facility] Urinalysis macro (dipstick) panel (U)on 11-01-2023 Bilirubin, UA Negative Negative - 4(70) +++ mg/dL [facility] Blood, UA Negative Negative - 50 Armand/mcL [facility] Clarity, UA Clear [facility] Color, UA Yellow [facility] Glucose, UA Negative Negative - 2000(110) ++++ mg/dL [facility] Interpretation and review of laboratory results Normal [facility] Ketones, UA Negative Negative - 160(16) ++++ mg/dL [facility] Leukocytes, UA Negative Negative - 500+++ Doe/mcL [facility] Nitrite, UA Negative Negative - Positive [facility] pH, UA 6.0 5 - 9 [facility] Protein, UA Negative Negative - 2000(20) ++++ mg/dL [facility] Spec Grav, UA 1.020 1 - 1.03 [facility] Urobilinogen, UA 0.2 0.2 - 12 mg/dL [facility] XR CERVICAL SPINE AP/LAT/FLE X/EXT/OBLIQUESon 08-16-2023 [...] [Mass/Vol] 8.9 mg/dL Normal (8.6 - 10.6) [facility] Comment on above: Performed By: #### C BC/2A, ESRCRP, CCP, HBC-M, HBSAG, HCV, CA, MG, RHF, URCA #### [facility] [address] [facility], [id number] CBC, ALB, ALT, AST, ALK AND CREAon 12-18-2022 Albumin [Mass/Vol] 5.0 g/dL Normal (3.5 - 5.0) [facility] Comment on above: Order Comment: FACIL ITY: [facility] [id number] Performed By: #### C BC/2A, ESRCRP, CCP, HBC-M, HBSAG, HCV, CA, MG, RHF, URCA #### [facility] [address] [facility], [id number] ALK PHOS 60 U/L Normal (38 - 126) [facility] Comment on above: Order Comment: FACIL ITY: [facility] [id number] Performed By: #### C BC/2A, ESRCRP, CCP, HBC-M, HBSAG, HCV, CA, MG, RHF, URCA #### [facility] [address] [facility], [id number] ALT [Catalytic activity/Vol] 34 U/L Normal (1 - 35) [facility] Comment on above: Order Comment: FACIL ITY: [facility] O [id number] Performed By: #### C BC/2A, ESRCRP, CCP, HBC-M, HBSAG, HCV, CA, MG, RHF, URCA #### [facility] [address] [facility], [address] AST [Catalytic activity/Vol] 34 U/L Normal (15 - 46) [facility] Comment on above: Order Comment: FACIL ITY: [facility] O [id number] Performed By: #### C BC/2A, ESRCRP, CCP, HBC-M, HBSAG, HCV, CA, MG, RHF, URCA #### [facility] [address] [facility], [id number] Creatinine [Mass/Vol] 0.61 mg/dL Normal (0.52 - 1.04) [facility] Comment on above: Order Comment: FACIL ITY: ARTHRITIS [facility] [id number] Performed By: #### C BC/2A, ESRCRP, CCP, HBC-M, HBSAG, HCV, CA, MG, RHF, URCA #### [facility] [address] [facility], [id number] GFR- AMER 135.1 ML/M1.7 Normal (60.0 - 140.1) [facility] Comment on above: Order Comment: FACIL ITY: ARTHRITIS [facility] [id number] Performed By: #### C BC/2A, ESRCRP, CCP, HBC-M, HBSAG, HCV, CA, MG, RHF, URCA #### [facility] [address] [facility], [id number] GFR-NON AFRIC-AMER 111.6 ML/M1.7 Normal (60.0 - 115.8) [facility] Comment on above: Order Comment: FACIL ITY: ARTHRITIS [facility] [id number] Performed By: #### C BC/2A, ESRCRP, CCP, HBC-M, HBSAG, HCV, CA, MG, RHF, URCA #### [facility] [address] [facility], [id number] Hematocrit (Bld) [Volume fraction] 41.5 % Normal (37.0 - 47.0) [facility] Comment on above: Order Comment: FACIL ITY: ARTHRITIS [facility] [id number] Performed By: #### C BC/2A, ESRCRP, CCP, HBC-M, HBSAG, HCV, CA, MG, RHF, URCA #### [facility] [address] [facility], [id number] Hemoglobin (Bld) [Mass/Vol] 13.5 g/dL Normal (12.0 - 16.0) [facility] Comment on above: Order Comment: FACIL ITY: [facility] [id number] Performed By: #### C BC/2A, ESRCRP, CCP, HBC-M, HBSAG, HCV, CA, MG, RHF, URCA #### [facility] [address] [facility], [address] MCH (RBC) [Entitic mass] 28.7 pg Normal (27.0 - 33.0) [facility] Comment on above: Order Comment: FACIL ITY: [facility] [id number] Performed By: #### C BC/2A, ESRCRP, CCP, HBC-M, HBSAG, HCV, CA, MG, RHF, URCA #### [facility] [address] [facility], [address] MCHC (RBC) [Mass/Vol] 32.5 g/dL Normal (30.0 - 37.0) [facility] Comment on above: Order Comment: FACIL ITY: ARTHRITIS [facility] [id number] Performed By: #### C BC/2A, ESRCRP, CCP, HBC-M, HBSAG, HCV, CA, MG, RHF, URCA #### [facility] [address] [facility], [address] MCV (RBC) [Entitic vol] 88.1 fL Normal (81.0 - 99.0) [facility] Comment on above: Order Comment: FACIL ITY: [facility] [id number] Performed By: #### C BC/2A, ESRCRP, CCP, HBC-M, HBSAG, HCV, CA, MG, RHF, URCA #### [facility] [address] [facility], [address] PLT 282 x10^3ul Normal (130 - 400) [facility] Comment on above: Order Comment: FACIL ITY: [facility] [id number] Performed By: #### C BC/2A, ESRCRP, CCP, HBC-M, HBSAG, HCV, CA, MG, RHF, URCA #### [facility] [address] [facility], [address] RBC 4.71 x10^6ul Normal (4.20 - 5.40) [facility] Comment on above: Order Comment: FACIL ITY: [facility] [id number] Performed By: #### C BC/2A, ESRCRP, CCP, HBC-M, HBSAG, HCV, CA, MG, RHF, URCA #### [facility] [address] [facility], [address] WBC 6.47 x10^3ul Normal (3.80 - 10.60) [facility] Comment on above: Order Comment: FACIL ITY: [facility] [id number] Performed By: #### C BC/2A, ESRCRP, CCP, HBC-M, HBSAG, HCV, CA, MG, RHF, URCA #### [facility] [address] [facility], [address] HEP B CORE AB, IGMon 023 HEPATITIS B CORE ANTIBODY, IGM Negative Normal (NEG - NEG) [facility] Comment on above: Performed By: #### C BC/2A, ESRCRP, CCP, HBC-M, HBSAG, HCV, CA, MG, RHF, URCA #### [facility] [address] [facility], [address] HEP B HERACLIO AGon 12-18-2022 HEP B HERACLIO AG Negative Normal (NEG - NEG) [facility] Comment on above: Performed By: #### C BC/2A, ESRCRP, CCP, HBC-M, HBSAG, HCV, CA, MG, RHF, URCA #### [facility] [address] [facility], [address] HEP C ANTIBODYon 12-18-2022 HEPATITIS C ANTIBODY Negative Normal (NEG - NEG) [facility] Comment on above: Performed By: #### C BC/2A, ESRCRP, CCP, HBC-M, HBSAG, HCV, CA, MG, RHF, URCA #### [facility] [address] [facility], [address] MAGNESIUMon 12-18-2022 Magnesium [Mass/Vol] 2.0 mg/dL Normal (1.6 - 2.3) [facility] Comment on above: Performed By: #### C BC/2A, ESRCRP, CCP, HBC-M, HBSAG, HCV, CA, MG, RHF, URCA #### [facility] [address] [facility], [address] RF FACTORon 12-18-2022 RF FACTOR <9 Normal (0 - 12) [facility] Comment on above: Result Comment: RF F ACTOR = LESS THAN 9 IU/ML RF FACTOR MIN. DETECTION = 9 IU/ML. Performed By: #### C BC/2A, ESRCRP, CCP, HBC-M, HBSAG, HCV, CA, MG, RHF, URCA #### [facility] [address] [facility], [address] SED RATE - CRPon 12-18-2022 CRP EXTENDED RANGE 1.40 MG/L Normal (0.00 - 3.20) [facility] Comment on above: Performed By: #### C BC/2A, ESRCRP, CCP, HBC-M, HBSAG, HCV, CA, MG, RHF, URCA #### [facility] [address] [facility], [address] SED RATE WEST. 5 MM/HR Normal (0 - 25) [facility] Comment on above: Performed By: #### C BC/2A, ESRCRP, CCP, HBC-M, HBSAG, HCV, CA, MG, RHF, URCA #### [facility] [address] [facility], [address] URIC ACIDon 12-18-2022 Urate [Mass/Vol] 4.2 mg/dL Normal (2.5 - 6.2) [facility] Comment on above: Performed By: #### C BC/2A, ESRCRP, CCP, HBC-M, HBSAG, HCV, CA, MG, RHF, URCA #### [facility] [address] [facility], [address] PAP ACOG PANEL 2: 30 to 65on 11-16-2021 . . Normal [facility] Comment on above: Result Comment: Perf ormed at: WB Performed By: #### 4 [id number] #### [facility] [address] [address] [address] Sierra Almonte Age Gdln ACOG Testing -[address] [facility] Comment on above: Performed By: #### 4 [id number] #### [facility] [address] [address] [address] Sierra Almonte DIAGNOSIS: Comment Normal [facility] Comment on above: Result Comment: NEGA TIVE FOR INTRAEPITHELIAL LESION OR MALIGNANCY. Performed at: WB Performed By: #### 4 [id number] #### [facility] [address] [place] [address] Dr. Sierra Almonte HPV Aptima Negative Normal [facility] Comment on above: Result Comment: This nucleic acid amplification test detects fourteen high-risk HPV types (16,18,31,33,35,39,45,51,52,56,58,59,66,68) without differentiation. Performed at: =G Performed By: #### 4 [id number] #### [facility] [address] [place] [address] Dr. Sierra Almonte Methodology: Comment Normal [facility] Comment on above: Result Comment: This liquid based ThinPrep(R) pap test was screened with the use of an image guided system. Performed at: WB Performed By: #### 4 [id number] #### [facility] [address] [place] [address] Dr. Sierra Almonte Note: Comment Normal [facility] Comment on above: Result Comment: The Pap smear is a screening test designed to aid in the detection of premalignant and malignant conditions of the uterine cervix. It is not a diagnostic procedure and should not be used as the sole means of detecting cervical cancer. Both false-positive and false-negative reports do occur. . Performed at: WB Performed By: #### 4 [id number] #### [facility] [address] [place], [place] [address] Dr. Sierra Almonte Performed by: Comment Normal [facility] Comment on above: Result Comment: Alison Sapp, Relief Master (ASCP) Performed at: WB Performed By: #### 4 [id number] #### [facility] [address] [place], [place] [address] Dr. Sierra Almonte Specimen adequacy: Comment Normal [facility] Comment on above: Result Comment: Sati sfactory for evaluation. Endocervical and/or squamous metaplastic cells (endocervical component) are present. Performed at: WB Performed By: #### 4 [id number] #### [facility] [address] [address] [address] Sierra Almonte US Thyroidon 07-14-2021 US [...] by Alexei Smith on 07/14/2021 1000 Normal [facility] [place] [facility] Complete Blood Count with Au to Diffon 07-12-2021 Basophils (Bld) [#/Vol] 0.02 10*3/uL Normal 0.00-0.20 [facility] [employer] Comment on above: Performed By: #### C BCAD, RF, VITD, ESR, TSH reflex FT4, CMP, FT4 #### [facility] [address], [place] [id number] Basophils/100 WBC (Bld) 0.3 % Normal [facility] [place] [facility] Comment on above: Performed By: #### C BCAD, RF, VITD, ESR, TSH reflex FT4, CMP, FT4 #### [facility] [address], [place] [id number] Eosinophils (Bld) [#/Vol] 0.08 10*3/uL Normal 0.02-0.50 [facility] [place] [facility] Comment on above: Performed By: #### C BCAD, RF, VITD, ESR, TSH reflex FT4, CMP, FT4 #### [facility] [address], [place] [id number] Eosinophils/100 WBC (Bld) 1.2 % Normal [facility] [place] [facility] Comment on above: Performed By: #### C BCAD, RF, VITD, ESR, TSH reflex FT4, CMP, FT4 #### [facility] [address], [place] [id number] Erythrocyte distribution width (RBC) [Ratio] 13.8 % Normal 11.0-15.0 [facility] [employer] [employer] Comment on above: Performed By: #### C BCAD, RF, VITD, ESR, TSH reflex FT4, CMP, FT4 #### [facility] [address], [place] [id number] Hematocrit (Bld) [Volume fraction] 39.6 % Normal 35.0-47.0 [facility] [place] [facility] Comment on above: Performed By: #### C BCAD, RF, VITD, ESR, TSH reflex FT4, CMP, FT4 #### [facility] [address], [place] [id number] Hemoglobin (Bld) [Mass/Vol] 12.9 g/dL Normal 11.6-15.5 [facility] [place] [facility] Comment on above: Performed By: #### C BCAD, RF, VITD, ESR, TSH reflex FT4, CMP, FT4 #### [facility] [address], [place] [id number] Lymphocytes (Bld) [#/Vol] 1.3 10*3/uL Normal 0.9-3.9 [facility] [place] [facility] Comment on above: Performed By: #### C BCAD, RF, VITD, ESR, TSH reflex FT4, CMP, FT4 #### [facility] [address], [place] [id number] Lymphocytes/100 WBC (Bld) 20.3 % Normal [facility] [place] [facility] Comment on above: Performed By: #### C BCAD, RF, VITD, ESR, TSH reflex FT4, CMP, FT4 #### [facility] [address], [place] [id number] MCH (RBC) [Entitic mass] 28.3 pg Normal 27.0-33.0 [facility] [place] [facility] Comment on above: Performed By: #### C BCAD, RF, VITD, ESR, TSH reflex FT4, CMP, FT4 #### [facility] [address], [place] [id number] MCHC (RBC) [Mass/Vol] 32.6 g/dL Normal 32.0-36.0 [facility] [place] [facility] Comment on above: Performed By: #### C BCAD, RF, VITD, ESR, TSH reflex FT4, CMP, FT4 #### [facility] [address], [place] [id number] MCV (RBC) [Entitic vol] 87 fL Normal 80-100 [facility] [place] [facility] Comment on above: Performed By: #### C BCAD, RF, VITD, ESR, TSH reflex FT4, CMP, FT4 #### [facility] [address], [place] [id number] Monocytes (Bld) [#/Vol] 0.4 10*3/uL Normal 0.2-0.9 [facility] [place] [facility] Comment on above: Performed By: #### C BCAD, RF, VITD, ESR, TSH reflex FT4, CMP, FT4 #### [facility] [address], [place] [id number] Monocytes/100 WBC (Bld) 5.8 % Normal [facility] Comment on above: Performed By: #### C BCAD, RF, VITD, ESR, TSH reflex FT4, CMP, FT4 #### [facility] [address], [place] [id number] Neutrophils (Bld) [#/Vol] 4.7 10*3/uL Normal 1.5-7.8 [facility] Comment on above: Performed By: #### C BCAD, RF, VITD, ESR, TSH reflex FT4, CMP, FT4 #### [facility] [address], [place] [id number] Neutrophils/100 WBC (Bld) 72.1 % Normal [facility] Comment on above: Performed By: #### C BCAD, RF, VITD, ESR, TSH reflex FT4, CMP, FT4 #### [facility] [address], [place] [id number] Platelet mean volume (Bld) [Entitic vol] 11.00 fL Normal 7.50-12.50 [facility] [place] [facility] Comment on above: Performed By: #### C BCAD, RF, VITD, ESR, TSH reflex FT4, CMP, FT4 #### [facility] [address], [place] [id number] Platelets (Bld) [#/Vol] 271 10*3/uL Normal 140-400 [facility] [place] [facility] Comment on above: Performed By: #### C BCAD, RF, VITD, ESR, TSH reflex FT4, CMP, FT4 #### [facility] [address], [place] [id number] RBC (Bld) [#/Vol] 4.56 10*6/uL Normal 3.90-5.20 [facility] Comment on above: Performed By: #### C BCAD, RF, VITD, ESR, TSH reflex FT4, CMP, FT4 #### [facility] [address], [place] [id number] RDW-SD 43.5 fL Normal 37.0-50.0 [facility] [employer] [employer] Comment on above: Performed By: #### C BCAD, RF, VITD, ESR, TSH reflex FT4, CMP, FT4 #### [facility] [address], [place] [id number] WBC (Bld) [#/Vol] 6.5 10*3/uL Normal 3.8-11.0 [facility] Comment on above: Performed By: #### C BCAD, RF, VITD, ESR, TSH reflex FT4, CMP, FT4 #### [facility] [address], [place] [id number] Comprehensive Metabolic Pane [facility] 07-12-2021 Albumin [Mass/Vol] 4.9 g/dL Normal 3.6-5.1 [facility] Comment on above: Performed By: #### C BCAD, RF, VITD, ESR, TSH reflex FT4, CMP, FT4 #### [facility] [address], [place] [id number] Albumin/Globulin [Mass ratio] 2.2 {ratio} Normal 1.0-2.5 [facility] Comment on above: Performed By: #### C BCAD, RF, VITD, ESR, TSH reflex FT4, CMP, FT4 #### [facility] [address], [place] [id number] ALP [Catalytic activity/Vol] 63 U/L Normal 35-119 [facility] Comment on above: Performed By: #### C BCAD, RF, VITD, ESR, TSH reflex FT4, CMP, FT4 #### [facility] [address], [place] [id number] ALT [Catalytic activity/Vol] 26 U/L Normal 6-33 [facility] Comment on above: Result Comment: 01/26 Female reference range changed. Performed By: #### C BCAD, RF, VITD, ESR, TSH reflex FT4, CMP, FT4 #### [facility] [address], [place] [id number] Anion gap [Moles/Vol] 18 mmol/L Normal 12-20 [facility] Comment on above: Result Comment: Effe ctive 03/03/2019 reference range changed. Performed By: #### C BCAD, RF, VITD, ESR, TSH reflex FT4, CMP, FT4 #### [facility] [address], [place] [id number] AST [Catalytic activity/Vol] 26 U/L Normal 9-34 [facility] Comment on above: Performed By: #### C BCAD, RF, VITD, ESR, TSH reflex FT4, CMP, FT4 #### [facility] [address], [place] [id number] BUN/CREA 10 Ratio Normal 6-22 [facility] Comment on above: Performed By: #### C BCAD, RF, VITD, ESR, TSH reflex FT4, CMP, FT4 #### [facility] [address], [place] [id number] Calcium [Mass/Vol] 10.0 mg/dL Normal 8.6-10.2 [facility] Comment on above: Performed By: #### C BCAD, RF, VITD, ESR, TSH reflex FT4, CMP, FT4 #### [facility] [address], [place] [id number] Chloride [Moles/Vol] 105 mmol/L Normal 98-107 [facility] Comment on above: Performed By: #### C BCAD, RF, VITD, ESR, TSH reflex FT4, CMP, FT4 #### [facility] [address], [place] [id number] CO2 [Moles/Vol] 21 mmol/L Normal 20-31 [facility] Comment on above: Performed By: #### C BCAD, RF, VITD, ESR, TSH reflex FT4, CMP, FT4 #### [facility] [address], [place] [id number] Creatinine [Mass/Vol] 0.6 mg/dL Normal 0.6-1.4 [facility] Comment on above: Performed By: #### C BCAD, RF, VITD, ESR, TSH reflex FT4, CMP, FT4 #### [facility] [address], [place] [id number] eGFRAA 132 mL/min/1.73m2 Normal >60 [facility] Specialist Comment on above: Performed By: #### C BCAD, RF, VITD, ESR, TSH reflex FT4, CMP, FT4 #### [facility] [address], [place] [id number] eGFRNAA 109 mL/min/1.73m2 Normal >60 [facility] Comment on above: Performed By: #### C BCAD, RF, VITD, ESR, TSH reflex FT4, CMP, FT4 #### [facility] [address], [place] [id number] Globulin (S) [Mass/Vol] 2.2 g/dL Normal 1.9-3.7 [facility] [place] [facility]ist Comment on above: Performed By: #### C BCAD, RF, VITD, ESR, TSH reflex FT4, CMP, FT4 #### [facility] [address], [place] [id number] Glucose [Mass/Vol] 86 mg/dL Normal 65-99 [facility] [facility] Comment on above: Result Comment: For FASTING Glucose --- ADA reference ranges: Normal 65-99 mg/dl Prediabetes 100-125 Diabetes >/= 126 Performed By: #### C BCAD, RF, VITD, ESR, TSH reflex FT4, CMP, FT4 #### [facility] [address], [place] [id number] Potassium [Moles/Vol] 4.1 mmol/L Normal 3.5-5.5 [facility] Comment on above: Performed By: #### C BCAD, RF, VITD, ESR, TSH reflex FT4, CMP, FT4 #### [facility] [address], [place] [id number] Protein [Mass/Vol] 7.1 g/dL Normal 6.1-8.1 [facility] [place] [employer] Comment on above: Performed By: #### C BCAD, RF, VITD, ESR, TSH reflex FT4, CMP, FT4 #### [facility] [address], [place] [id number] Sodium [Moles/Vol] 140 mmol/L Normal 135-146 [facility] [place] [employer] Comment on above: Performed By: #### C BCAD, RF, VITD, ESR, TSH reflex FT4, CMP, FT4 #### [facility] [address], [place] [id number] TBIL <0.3 Normal [facility] Comment on above: Performed By: #### C BCAD, RF, VITD, ESR, TSH reflex FT4, CMP, FT4 #### [facility] [address], [place] [id number] Urea nitrogen [Mass/Vol] 7 mg/dL Normal 7-25 [facility] Comment on above: Performed By: #### C BCAD, RF, VITD, ESR, TSH reflex FT4, CMP, FT4 #### [facility] [address], [place] [id number] Free T4on 07-12-2021 Free T4 [Mass/Vol] 0.93 ng/dL Normal 0.80-1.80 [facility] Comment on above: Performed By: #### C BCAD, RF, VITD, ESR, TSH reflex FT4, CMP, FT4 #### [facility] [address], [place] [id number] Q - PASQUALE SCREEN IFA W/RFL TIT ER AND PATTERNon 07-12-2021 PASQUALE SCREEN, IFA Negative Normal NEGATIVE [facility] Comment on above: Order Comment: [facility] Testing performed at: QPT, [facility], [address] [place] [address], [address] [place] [address], [id number], Reading Tutor: Leonard Turpin MD [facility] Collection Date/Time: [facility] Results Received Date/Time: [id number] [facility] Reported Date/Time: Result Comment: PASQUALE IFA [...] AC-0: Negative International Consensus on PASQUALE Patterns (https://doi.org/10.1515/znvv-4121-5076) For additional information, please refer to http://education.[employer]/faq/XQT904 (This link is being provided for informational/ educational purposes only.) Performed By: #### 2 49 #### [facility] [address] [place] [address] RBC Sedimentation Rateon ESR (Bld) [Velocity] 8.00 mm/h Normal 0.00-20.00 [facility] Comment on above: Performed By: #### C BCAD, RF, VITD, ESR, TSH reflex FT4, CMP, FT4 #### [facility] [address], [place] [id number] Rheumatoid Factoron 07-13-19 RF <10 Normal [facility] Comment on above: Performed By: #### C BCAD, RF, VITD, ESR, TSH reflex FT4, CMP, FT4 #### [facility] [address], [place] [id number] TSH w/ Reflex to Free T4on 0 07-12-2021 TSH 0.321 uIU/mL Low 0.400-4.500 [facility] Comment on above: Performed By: #### C BCAD, RF, VITD, ESR, TSH reflex FT4, CMP, FT4 #### [facility] [address], [place] [id number] Vitamin D 25-OHon 07-12-2021 VIT D 25 [place] 19 ng/ml Low >29 [facility] [place] Specialist Comment on above: Result Comment: Ade min D Status Deficiency <20 ng/mL Insufficiency 20-29 ng/mL Optimal 30-100 ng/mL Possible Toxicity >=150 ng/mL Performed By: #### C BCAD, RF, VITD, ESR, TSH reflex FT4, CMP, FT4 #### [facility] [address], [place] [id number] Comprehensive Metabolic Empo n 04-11-2021 Albumin [Mass/Vol] 4.6 g/dL Normal 3.2-5.5 [facility] Comment on above: Performed By: #### E BS CMP, EBS LIPID #### [facility] [address] [place] [address] [place] Albumin/Globulin [Mass ratio] 1.9 {ratio} Normal [facility] Comment on above: Performed By: #### E BS CMP, EBS LIPID #### [facility] [address] ALP [Catalytic activity/Vol] 43 U/L Normal 32-92 [facility] Comment on above: Performed By: #### E BS CMP, EBS LIPID #### [facility] [address] [place] [address] ALT [Catalytic activity/Vol] 17 U/L Normal 10-60 [facility] Comment on above: Performed By: #### E BS CMP, EBS LIPID #### [address] AST [Catalytic activity/Vol] 20 U/L Normal 10-42 [facility] Comment on above: Performed By: #### E BS CMP, EBS LIPID #### [address] Bilirubin [Mass/Vol] 1.1 mg/dL Normal 0.3-1.2 [facility] Comment on above: Performed By: #### E BS CMP, EBS LIPID #### [place] [address] [place] Calcium [Mass/Vol] 9.6 mg/dL Normal 8.2-10.2 [facility] Comment on above: Performed By: #### E BS CMP, EBS LIPID #### [facility] [address] [place] [address] [place] Chloride [Moles/Vol] 102 mmol/L Normal 95-114 [facility] Comment on above: Performed By: #### E BS CMP, EBS LIPID #### [facility] [address] [place] [address] [place] CO2 [Moles/Vol] 21.4 mmol/L Low 22.0-30.[address] [facility] Comment on above: Performed By: #### E BS CMP, EBS LIPID #### [facility] [address] [place] [address] Creatinine [Mass/Vol] 0.71 mg/dL Normal 0.44-1.03 [facility] Comment on above: Performed By: #### E BS CMP, EBS LIPID #### [address] Estimated GFR ( Michelle > 60 Normal [facility] Comment on above: Result Comment: GFR estimated reference range: According to KDOQI guidelines, <60 ml/min/1.73m2 is sufficient to diagnose a patient with chronic kidney disease. Performed By: #### E BS CMP, EBS LIPID #### [address] Estimated GFR (Non- Am > 60 Normal [facility] Comment on above: Performed By: #### E BS CMP, EBS LIPID #### [address] Globulin (S) [Mass/Vol] 2.4 g/dL Normal [facility] Comment on above: Performed By: #### E BS CMP, EBS LIPID #### [address] Glucose [Mass/Vol] 76 mg/dL Normal 70-100 [facility] Comment on above: Performed By: #### E BS CMP, EBS LIPID #### [address] Potassium [Moles/Vol] 3.3 mmol/L Low 3.5-5.1 [facility] Comment on above: Performed By: #### E BS CMP, EBS LIPID #### [address] Protein [Mass/Vol] 7.0 g/dL Normal 6.1-7.9 [facility] Comment on above: Performed By: #### E BS CMP, EBS LIPID #### [address] Sodium [Moles/Vol] 136 mmol/L Normal 136-146 [facility] Comment on above: Performed By: #### E BS CMP, EBS LIPID #### [facility] [address] [place] [address] [place] Urea nitrogen [Mass/Vol] 5 mg/dL Low - [facility] Comment on above: Performed By: #### E BS CMP, EBS LIPID #### [facility] [address] [id number] [place] Lipid Profileon 04-11-2021 Cholesterol [Mass/Vol] 189 mg/dL Normal 140-200 [facility] Comment on above: Result Comment: Chol less than 200 mg/dl low risk Chol 201-239 mg/dl borderline risk Chol 240 mg/dl and greater high risk Performed By: #### E BS CMP, EBS LIPID #### [facility] [address] Cholesterol in HDL [Mass/Vol] 69 mg/dL Normal 35-85 [facility] Comment on above: Result Comment: HDL CHOL ATP-III CLASSIFICATION Cardiovascular Risk HDL > or equal to 60 mg/dL LOW HDL < 40 mg/dL HIGH Performed By: #### E BS CMP, EBS LIPID #### [facility] [address] Cholesterol.total/C holesterol in HDL [Mass ratio] 2.7 {ratio} Normal <5.0 [facility] Comment on above: Result Comment: PERF ORMED BY: [place] [address] PATHOLOGIST DRY WALL NAILER PAT PETERS M.D. Performed By: #### E BS CMP, EBS LIPID #### [facility] [address] [id number] [facility] LDL Cholesterol,Calcula shadi 107 mg/dL High 0-100 [facility] Comment on above: Result Comment: LDL ATP III CLASSIFICATION LDL less than 100 mg/dL Optimal LDL 100-129 mg/dL Near or above optimal LDL 130-159 mg/dL Borderline high LDL 160-189 mg/dL High LDL greater than 189 mg/dL Very high Performed By: #### E BS CMP, EBS LIPID #### [facility] [address] [id number] [place] Triglyceride w/Reflex 64 mg/dL Normal 35-149 [facility] Comment on above: Result Comment: TRIG ATP III CLASSIFICATION TRIG less than 150 mg/dL Normal TRIG 150-199 mg/dL Borderline high TRIG 200-500 mg/dL High TRIG greater than 500 mg/dL Very high Standard traceable to the Center for Disease Conrtrol and Prevention (CDC) test method. Performed By: #### E BS CMP, EBS LIPID #### [facility] [address] [id number] [facility] VLDL CHOLESTEROL 12 mg/dL Normal [facility] Comment on above: Performed By: #### E BS CMP, EBS LIPID #### [facility] [address] [place] [address] [facility] Covid-19 PCR (CVDTB)on SARS-CoV-2 (COVID-19) RNA ERIC+probe Ql (Unsp spec) Detected Critically abnormal NOT DETECTED [facility] Comment on above: Result Comment: This test is not yet approved or cleared by the [place] FDA. When there are no FDA-approved or cleared tests available, and other criteria are met, FDA can make tests available under an emergency access mechanism called an Emergency Use Authorization (EUA). The EUA for this test is supported by the [place] of Health and Human Service's (HHS's) declaration [...] used). Performed By: #### C VDTBH #### [facility] [address] [address] [address] Sierra Almonte CHLAMYDIA/GONOCOCCUS ERIC (SW AB/URINE/PAPon 12-14-2020 Chlamydia trachomatis, ERIC Negative Normal Negative [facility] Comment on above: Performed By: #### C T/NGNA #### [facility] [address] [address] [address] Sierra Almonte Neisseria gonorrhoeae, ERIC Negative Normal Negative [facility] Comment on above: Performed By: #### C T/NGNA #### [facility] [address] [address] [address] Sierra Almonte VAGINITIS/VAGINOSIS DNA PROB Andrew 12-11-2020 Loc species Negative Normal Negative [facility] Comment on above: Performed By: #### V AGINT #### [facility] [address] [address] [address] Sierra Almonte Gardnerella vaginalis Positive Abnormal Negative [facility] Comment on above: Performed By: #### V AGINT #### [facility] [address] [address] [address] Sierra Almonte Trichomonas vaginalis Negative Normal Negative [facility] Comment on above: Performed By: #### V AGINT #### [facility] [address] [address] [address] Sierra Almonte Vital Signs Date Time Vital Sign Value Performing Clinician Faci lity 02-13-2024 13:14-0500 Body height 160 cm Emerita Warren TEACHER LEARNING DISABLED Work Phone: [facility] 02-13-2024 13:14-0500 Body mass index (BMI) [Ratio] 26.93 kg/m2 Emerita Warren TEACHER LEARNING DISABLED Work Phone: [facility] 02-13-2024 13:14-0500 Body weight 68.95 kg Emerita Warren TEACHER LEARNING DISABLED Work Phone: [facility] 02-13-2024 13:14-0500 Diastolic blood pressure 72 mm[Hg] Emerita Warren TEACHER LEARNING DISABLED Work Phone: [facility] 02-13-2024 13:14-0500 Heart rate 109 /min Emerita Warren TEACHER LEARNING DISABLED Work Phone: [facility] 02-13-2024 13:14-0500 Systolic blood pressure 119 mm[Hg] Emerita Warren TEACHER LEARNING DISABLED Work Phone: [facility] 02-11-2024 10:19-0500 Body mass index (BMI) [Ratio] 27.3 kg/m2 Raghavendra Vasquez DO Work Phone: [facility] 02-11-2024 10:19-0500 Body weight 71.58 kg Raghavendra Christina DO Work Phone: [facility] 02-11-2024 10:19-0500 Diastolic blood pressure 70 mm[Hg] Raghavendra Christina DO Work Phone: [facility] 02-11-2024 10:19-0500 Systolic blood pressure 120 mm[Hg] Raghavendra Christina DO Work Phone: [facility] 01-10-2024 10:44-0500 Body mass index (BMI) [Ratio] 26.3 kg/m2 Raghavendra Christina DO Work Phone: [facility] 01-10-2024 10:44-0500 Body weight 68.95 kg Raghavendra Christina DO Work Phone: [facility] 01-10-2024 10:44-0500 Diastolic blood pressure 74 mm[Hg] Raghavendra Christina DO Work Phone: [facility] 01-10-2024 10:44-0500 Systolic blood pressure 116 mm[Hg] Raghavendra Christina DO Work Phone: [facility] 01-01-2024 11:40-0500 Body mass index (BMI) [Ratio] 25.78 kg/m2 Teresa Jo Ann-Nossek FISHERIES TECHNICIAN-PHYSICIAN ASSISTANT PSYCHIATRY Work Phone: [facility] 01-01-2024 11:40-0500 Body weight 67.59 kg Teresa Jo Ann-Nossek FISHERIES TECHNICIAN-PHYSICIAN ASSISTANT PSYCHIATRY Work Phone: [facility] 01-01-2024 11:40-0500 Diastolic blood pressure 82 mm[Hg] Teresa Jo Ann-Nossek FISHERIES TECHNICIAN-PHYSICIAN ASSISTANT PSYCHIATRY Work Phone: [facility] 01-01-2024 11:40-0500 Heart rate 99 /min Teresa Jo Ann-Nossek FISHERIES TECHNICIAN-PHYSICIAN ASSISTANT PSYCHIATRY Work Phone: [facility] 01-01-2024 11:40-0500 Systolic blood pressure 100 mm[Hg] Teresa Jo Ann-Nossek FISHERIES TECHNICIAN-PHYSICIAN ASSISTANT PSYCHIATRY Work Phone: [facility] 11-28-2023 14:53-0400 Body mass index (BMI) [Ratio] 25.57 kg/m2 Raghavendra Christina DO Work Phone: [facility] 11-28-2023 14:53-0400 Body weight 67.04 kg Raghavendra Christina DO Work Phone: [facility] 11-28-2023 14:53-0400 Diastolic blood pressure 74 mm[Hg] Raghavendra Christina DO Work Phone: [facility] 11-28-2023 14:53-0400 Systolic blood pressure 114 mm[Hg] Raghavendra Christina DO Work Phone: [facility] 11-01-2023 15:16-0400 Body mass index (BMI) [Ratio] 25.6 kg/m2 [facility] Nurse [facility] 11-01-2023 15:16-0400 Body weight 67.13 kg [facility] Nurse [facility] 10-18-2023 11:32-0400 Body height 161.9 cm Ysabel Cabral MD Work Phone: [facility] 10-18-2023 11:32-0400 Body mass index (BMI) [Ratio] 26.05 kg/m2 Ysabel Cabral MD Work Phone: [facility] 10-18-2023 11:32-0400 Body weight 68.31 kg Ysabel Cabral MD Work Phone: [facility] 10-18-2023 11:32-0400 Diastolic blood pressure 76 mm[Hg] Ysabel Cabral MD Work Phone: [facility] 10-18-2023 11:32-0400 Heart rate 92 /min Ysabel Cabral MD Work Phone: [facility] 10-18-2023 11:32-0400 Respiratory rate 20 /min Ysabel Cabral MD Work Phone: [facility] 10-18-2023 11:32-0400 Systolic blood pressure 122 mm[Hg] Ysabel Cabral MD Work Phone: [facility] Encounters Encounter Date Encounter Type Care Provider Facility Start: 02-13-2024 End: 02-13-2024 Bamboo flowsheet Emerita Warren TEACHER LEARNING DISABLED Work Phone: [facility] Start: 02-13-2024 End: 02-13-2024 Bamboo flowsheet Emerita Remediossimon TEACHER LEARNING DISABLED Work Phone: [facility] Start: 02-13-2024 End: 02-13-2024 ambulatory EMERITA GILLSIMON Not Available Start: 02-13-2024 End: 02-13-2024 Office outpatient visit 15 minutes Emerita Warren TEACHER LEARNING DISABLED Work Phone: [facility] Comment on above: 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) (Primary Dx); , unspecified gestational age; Primary insomnia; Generalized anxiety disorder (CMS/HCC) Start: 02-11-2024 End: 02-11-2024 Bamboo flowsheet Raghavendra Christina DO Work Phone: [facility] Start: 02-11-2024 End: 02-11-2024 Bamboo flowsheet Raghavendra Christina DO Work Phone: [facility] Start: 02-11-2024 End: 02-11-2024 ambulatory RAGHAVENDRA CHRISTINA Not Available Start: 02-11-2024 End: 02-11-2024 Office outpatient visit 15 minutes Raghavendra Christina DO Work Phone: [facility] Comment on above: 23 weeks gestation o f ; Second trimester ; Diabetes mellitus screening Start: 01-10-2024 End: 01-10-2024 Bamboo flowsheet Raghavendra Christina DO Work Phone: [facility] Start: 01-10-2024 End: 01-18-2024 Bamboo flowsheet Raghavendra Christina DO Work Phone: [facility] Start: 01-10-2024 End: 01-18-2024 Clinisync Result Encounter Generic External Data Provider [facility] Unsolicited Start: 01-10-2024 End: 01-11-2024 External Result Encounter Raghavendra Christina DO Work Phone: [facility] Unsolicited Start: 01-10-2024 End: 01-10-2024 Patient encounter procedure Raghavendra Christina DO Work Phone: [facility] Work Phone: Start: 01-10-2024 End: 01-10-2024 Periodic preventive med est patient 18-39 yrs Raghavendra Christina DO Work Phone: [facility] Comment on above: Well woman exam with routine gynecological exam; Second trimester ; 18 weeks gestation of ; Vaginal discharge; STD exposure; Screening, , for anatomic survey; Gastroesophageal reflux in Start: 01-10-2024 End: 01-10-2024 ambulatory RAGHAVENDRA CHRISTINA Not Available Start: 01-01-2024 End: 01-01-2024 Bamboo flowsheet Teresa M Jo Nan-Nossek FISHERIES TECHNICIAN-mobiliThink Work Phone: [facility] Start: 01-01-2024 End: 01-01-2024 Bamboo flowsheet Teresa Cheri Jo Ann-Nossek FISHERIES TECHNICIAN-PHYSICIAN ASSISTANT PSYCHIATRY Work Phone: [facility] Start: 01-01-2024 End: 01-01-2024 ambulatory TERESA Cheri JO ANN-NOSSEK Not Available Start: 01-01-2024 End: 01-01-2024 Office outpatient visit 25 minutes Teresa Cheri Jo Ann-Nossek FISHERIES TECHNICIAN-PHYSICIAN ASSISTANT PSYCHIATRY Work Phone: [facility] Comment on above: Generalized anxiety disorder (CMS/HCC) (Primary Dx) Start: 11-28-2023 End: 11-28-2023 Office outpatient visit 15 minutes Raghavendra Christina DO Work Phone: [facility] Comment on above: First trimester preg anahy Start: 11-28-2023 End: 11-28-2023 ambulatory RAGHAVENDRA CHRISTINA Not Available Start: 11-28-2023 End: 11-28-2023 Bamboo flowsheet Raghavendra Christina DO Work Phone: [facility] Start: 11-28-2023 End: 11-28-2023 Bamboo flowsheet Raghavendra Christina DO Work Phone: [facility] Start: 11-28-2023 End: 11-28-2023 Clinisync Result Encounter Generic External Data Provider [facility] Department Unsolicited Start: 11-27-2023 End: 11-27-2023 Office outpatient visit 15 minutes Teresa Alonzo Johnson FISHERIES TECHNICIAN-PHYSICIAN ASSISTANT PSYCHIATRY Work Phone: [facility] Comment on above: Attention deficit hy peractivity disorder (ADHD), combined type (CMS/HCC); Generalized anxiety disorder (CMS/HCC) Start: 11-27-2023 End: 11-27-2023 ambulatory TERESA Alonzo JOHNSON Not Available Start: 11-01-2023 End: 11-01-2023 ambulatory [facility] Christina Nurse [facility] Comment on above: GA: 8w5d Start: 11-01-2023 End: 11-04-2023 Clinisync Result Encounter Generic External Data Provider [facility] Unsolicited Start: 11-01-2023 End: 11-04-2023 Clinisync Result Encounter Generic External Data Provider [facility] Unsolicited Start: 10-19-2023 End: 10-19-2023 Telephone encounter Ysabel Cabral MD Work Phone: [facility] Start: 10-18-2023 End: 10-18-2023 Bamboo flowsheet Evonne Jaydon DO Work Phone: [facility] [place] [facility] Start: 10-18-2023 End: 10-18-2023 Bamboo flowsheet Evonne Jaydon DO Work Phone: [facility] [place] [facility] Start: 10-18-2023 End: 10-18-2023 Office outpatient visit 15 minutes Ysabel Cabral MD Work Phone: [facility] Comment on above: Morning sickness (Pr imary Dx) Start: 10-18-2023 End: 10-18-2023 ambulatory YSABEL CABRAL Not Available Start: 10-18-2023 End: 10-18-2023 Office outpatient visit 25 minutes Evonne Jaydon DO Work Phone: [facility] Comment on above: Intractable chronic [...] Available Start: 06-28-2023 End: 06-28-2023 ambulatory EVONNE JAYDON Not Available Start: 06-20-2023 End: 06-20-2023 ambulatory TERESA M JO ANN-NOSSEK Not Available Start: 06-11-2023 End: 06-11-2023 ambulatory TERESA M JO ANN-NOSSEK Not Available Start: 03-21-2023 End: 03-21-2023 ambulatory TERESA M JO ANN-NOSSEK Not Available Start: 11-09-2021 End: 11-09-[address] TALITA DODSON Facility:[facility] Start: 05-11-2021 ([facility] C Vac) [facility] Co vid Vaccine Vicky Joe [facility] Start: 05-11-2021 End: 05-11-2021 ambulatory Vicky Joe Other [employer] Other Start: 03-01-2021 End: 03-01-2021 ambulatory CHLOE CARVAJAL Facility:[facility] Start: 12-10-2020 End: 12-10-[address] TALITA DODSON Facility:[facility] Procedures Date Procedure Procedure Detail Performing Clinician Start: 02-11-2024 Urnls dip stick/tabl et rgnt non-auto w/o micrscp Raghavendra Christina DO Work Phone: Start: 01-10-2024 RECURRENT VAGINITIS (HTRX) Raghavendra Christina DO Work Phone: Start: 01-10-2024 Urnls dip stick/tabl et rgnt non-auto w/o micrscp Raghavendra Christina DO Work Phone: Start: 01-10-2024 IGP,APTIMA HPV,AGE GDLN Raghavendra Christina DO Work Phone: Start: 01-10-2024 Microscopic observat ion [Identifier] in Cervix by Cyto stain Raghavendra Christina DO Work Phone: Start: 11-28-2023 ALL CBC WITH AUTO DIFF Raghavendra Christina DO Work Phone: Start: 11-28-2023 Urnls dip stick/tabl et rgnt non-auto w/o micrscp Raghavendra Christina DO Work Phone: Start: 11-01-2023 End: 11-01-2023 Urnls dip stick/tablet rgnt non-auto w/o micrscp Raghavendra Christina DO Work Phone: Start: 11-01-2023 Bacteria identified in Urine by Culture Generic External Data Provider Start: 12-18-2022 Cyclic citrullinated peptide antibody Comment on above: Performed By: #### C BC/2A, ESRCRP, CCP, HBC-M, HBSAG, HCV, CA, MG, RHF, URCA #### [facility] [address] [place], [address] Plan of Treatment Date Care Activity Detail Author Start: 01-09-2027 Screening for malign ant neoplasm of cervix [facility] Start: 05-06-2024 End: 05-06-2024 Patient encounter procedure 05/06/2024 11:45 AM EDT Office Visit [facility] [place] [address] [place] [phone] Evonne Childress, DO [address] [place], [place] [id number] [facility] [place] [address] [facility] Start: 04-02-2024 End: 04-02-2024 Patient encounter procedure 04/02/2024 11:00 AM EST Office Visit [facility] [address] [facility] [address] [place] [address] Teresa Ornelas, FISHERIES TECHNICIAN-PHYSICIAN ASSISTANT PSYCHIATRY [address] [facility] [address] [place] [address] [facility] Start: 03-11-2024 End: 03-11-2024 Patient encounter procedure 03/11/2024 9:40 AM EST Routine [facility] [address] [place] [phone] Raghavendra Vasquez DO [address] [place], [place] [id number] [facility] Start: 02-13-2024 End: 02-13-2024 Patient encounter procedure 02/13/2024 1:00 PM EST Office Visit [facility] [place] [address] [place] [address] Emerita Warren, NATAN [address] [place] [facility] [place] [address] Start: 02-11-2024 End: 02-10-2025 CBC panel - Blood by Automated count CBC Lab Routine Diabetes mellitus screening Expected: 02/11/2024 (Approximate), Expires: 02/10/2025 [facility] Work Phone: Comment on above: Expected: 02/11/2024 (Approximate), Expires: 02/10/2025 Start: 02-11-2024 End: 02-10-2025 Measurement of glucose 1 hour after glucose challenge for glucose tolerance test Glucose tolerance, 1 hour Lab Routine Diabetes mellitus screening Expected: 02/11/2024 (Approximate), Expires: 02/10/2025 [facility] Comment on above: Expected: 02/11/2024 (Approximate), Expires: 02/10/2025 Start: 02-11-2024 End: 02-10-2025 US for US OB SCAN FOR GROWTH Imaging Routine 23 weeks gestation of Diabetes mellitus screening Expected: 02/11/2024 (Approximate), Expires: 02/10/2025 [facility] Comment on above: Expected: 02/11/2024 (Approximate), Expires: 02/10/2025 Start: 02-11-2024 End: 02-11-2024 Patient encounter procedure 02/11/2024 9:40 AM EST Routine [facility] [address] [facility] [place] [phone] Raghavendra Vasquez DO [address] [facility] [place] [address] [facility] Start: 01-28-2024 End: 01-28-2024 Professional / ancillary services management 01/28/2024 11:00 AM EST Ancillary Procedure [facility] [address] [facility] [place] [phone] [facility] Start: 01-10-2024 End: 07-09-2024 Alpha fetoprotein, maternal Alpha fetoprotein, maternal Lab Routine Second trimester 18 weeks gestation of Expected: 01/10/2024 (Approximate), Expires: 07/09/2024 [facility] Comment on above: Expected: 01/10/2024 (Approximate), Expires: 07/09/2024 Start: 01-10-2024 End: 01-09-2025 US for US OB ANATOMY SINGLE W US OB CERVICAL LENGTH Imaging Routine Screening, , for anatomic survey Expected: 01/10/2024 (Approximate), Expires: 01/09/2025 [facility] Comment on above: Expected: 01/10/2024 (Approximate), Expires: 01/09/2025 Start: 01-03-2024 End: 01-03-2024 Patient encounter procedure 01/03/2024 11:20 AM EST Routine [facility] [address] [facility] [place] [phone] Raghavendra Vasquez, DO [address] [place] [address] [facility] Start: 01-01-2024 End: 01-01-2024 Patient encounter procedure 01/01/2024 11:30 AM EST Office Visit [facility] [address] [facility] [address] [place] [phone] Teresa Ornelas, FISHERIES TECHNICIAN-PHYSICIAN ASSISTANT PSYCHIATRY [address] [facility] [address] [place] [address] [facility] Start: 12-18-2023 End: 12-18-2023 Patient encounter procedure 12/18/2023 5:30 PM EDT Office Visit [facility] [place] [address] [place] [phone] Evonne Childress, DO [address] [place] [address] [facility] [place] [address] [facility] Start: 11-28-2023 End: 11-28-2023 Patient encounter procedure 11/28/2023 2:20 PM EDT Routine [facility] [address] [place] [phone] Raghavendra Vasquez, DO [address] [place] [address] [facility] Start: 11-27-2023 End: 11-27-2023 Patient encounter procedure 11/27/2023 11:00 AM EDT Office Visit [facility] [address] [facility] [address] [place] [phone] Teresa Ornelas, FISHERIES TECHNICIAN-PHYSICIAN ASSISTANT PSYCHIATRY [address] [facility] [place] [address] [facility] Start: 11-01-2023 End: 10-31-2024 ABO/Rh ABO/Rh Lab Routine Missed menses Expected: 11/01/2023 (Approximate), Expires: 10/31/2024 [facility] Comment on above: Expected: 11/01/2023 (Approximate), Expires: 10/31/2024 Start: 11-01-2023 End: 11-01-2023 ambulatory 11/01/2023 2:00 PM EDT Initial [facility] [address] [place] [address] [place] [address] [facility] Start: 11-01-2023 End: 10-31-2024 Blood type and Indirect antibody screen panel - Blood Type and screen Lab Routine Missed menses Expected: 11/01/2023 (Approximate), Expires: 10/31/2024 [facility] Work Phone: Comment on above: Expected: 11/01/2023 (Approximate), Expires: 10/31/2024 Start: 11-01-2023 End: 10-31-2024 US Pelvis transvaginal US OB transvaginal Imaging Routine Missed menses Expected: 11/01/2023 (Approximate), Expires: 10/31/2024 [facility] Comment on above: Expected: 11/01/2023 (Approximate), Expires: 10/31/2024 Start: 11-01-2023 End: 11-01-2023 Professional / ancillary services management 11/01/2023 1:30 PM EDT Ancillary Procedure [facility] [address] [place] [address] [place] [address] [facility] Start: 10-28-2023 Influenza vaccination Influenza Vacc ine (#1) [facility] Start: 10-18-2023 End: 10-18-2023 Patient encounter procedure 10/18/2023 11:40 AM EDT Office Visit [facility] [address] [place] [address] Ysabel Cabral MD [address] [facility] [place] [address] [facility] Start: 10-18-2023 End: 10-18-2023 Patient encounter procedure 10/18/2023 10:30 AM EDT Procedure Visit [facility] [place] [facility] [address] [place] [phone] Evonne Childress DO [address] [place] [address] Ar[address] [facility] Comment on above: Arrived Start: 09-10-2017 Screening for malign ant neoplasm of cervix [facility] Start: 09-10-2008 Screening for malign ant neoplasm of cervix Pap Smear [facility] Bacteria identified in Urine by Culture Urine culture Microbiology Routine Missed menses Ordered: 11/01/2023 [facility] Comment on above: Ordered: 11/01/2023 CBC W Auto Different ial panel - Blood CBC and differential Lab Routine Missed menses Ordered: 11/01/2023 [facility] Comment on above: Ordered: 11/01/2023 CHLAMYDIA TRACHOMATI S (GENITO/STI) CHLAMYDIA TRACHOMATIS (GENITO/STI) Lab Routine STD exposure Ordered: 01/10/2024 [facility] Comment on above: Ordered: 01/10/2024 Cytology Cervical or vaginal smear or scraping study Pap Smear Pathology and Cytology Routine Well woman exam with routine gynecological exam Ordered: 01/10/2024 [facility] Comment on above: Ordered: 01/10/2024 Hemoglobin A1c/Hemoglobin.total in Blood Hemoglobin A1c Lab Routine Missed menses Ordered: 11/01/2023 [facility] Comment on above: Ordered: 11/01/2023 Hepatitis B virus surface Ag [Presence] in Serum or Plasma by Immunoassay Hepatitis B surface antigen Lab Routine Missed menses Ordered: 11/01/2023 [facility] Comment on above: Ordered: 11/01/2023 Hepatitis C virus Ab [Presence] in Serum or Plasma by Immunoassay Hepatitis C antibody Lab Routine Missed menses Ordered: 11/01/2023 [facility] Comment on above: Ordered: 11/01/2023 HIV-1/HIV-2 antigen/antibody combination immunoassay HIV-1 and HIV-2 antibodies Lab Routine Missed menses Ordered: 11/01/2023 [facility] Comment on above: Ordered: 11/01/2023 Human papilloma viru s DNA [Presence] in Unspecified specimen by Probe with amplification HPV DNA probe, amplified Microbiology Routine Well woman exam with routine gynecological exam Ordered: 01/10/2024 [facility] Comment on above: Ordered: 01/10/2024 Neisseria gonorrhoea e DNA [Presence] in Unspecified specimen by ERIC with probe detection Neisseria gonorrhea DNA probe, direct Lab Routine STD exposure Ordered: 01/10/2024 [facility] Comment on above: Ordered: 01/10/2024 Reagin Ab [Presence] in Serum by RPR RPR Lab Routine Missed menses Ordered: 11/01/2023 [facility] Comment on above: Ordered: 11/01/2023 Rubella antibody, IgG Rubella an tibody, IgG Lab Routine Missed menses Ordered: 11/01/2023 [facility] Comment on above: Ordered: 11/01/2023 SURESWAB(R) ADVANCED VAGINITIS PLUS, TMA SURESWAB(R) ADVANCED VAGINITIS PLUS, TMA Pathology and Cytology Routine Vaginal discharge Ordered: 01/10/2024 [facility] Work Phone: Comment on above: Ordered: 01/10/2024 Immunizations Immunization Date Immunization Notes Care Provider Corrina hanson 05-11-2021 COVID-19 En Joe Other [facility] Other 10-02-2016 influenza, injectabl e, quadrivalent, preservative free Evonne Jaydon DO Work Phone: [facility] 10-02-2016 influenza virus vaccine, unspecified formulation Evonne Jaydon DO Work Phone: [facility] 10-13-2015 influenza, injectabl e, quadrivalent, preservative free Evonne Jaydon DO Work Phone: [facility] 12-02-2014 influenza, seasonal, injectable, preservative free Evonne Jaydon DO Work Phone: [facility] Payers Date Payer Category Payer Medicaid [employer] [place] [employer] [id number] 2021-Present [address] [place] [address] [id number] 2021 Medicaid (Managed Care) [facility] MEDICAID [id number] 1987 Unknown [id number] 20.1.043651.3.579.2. 59 1987 Unknown [id number] 2840.1.654282.3.579.2. 59 1987 Unknown [id number] 2840.1.517532.3.579.2. 59 1987 Unknown [id number] 2840.1.343816.3.579.2. 1258 1987 Unknown [id number] 840.1.376749.3.579.2. 1258 1987 Unknown [id number] 2840.1.109483.3.579.2. 1258 1987 Unknown [id number] 2.840.1.903493.3.579.2. 1258 1987 Unknown [id number] 2840.1.557413.3.579.2. 1258 1987 Unknown [id number] 2.840.1.554324.3.579.2. 1258 1987 Unknown [id number] 2.16.840.1.805988.3.579.2. 1258 1987 Unknown [id number] 2.16.840.1.821005.3.579.2. 1258 1987 Unknown [id number] 2.16.840.1.507107.3.579.2. 1258 1987 Unknown [id number] 2.16.840.1.681827.3.579.2. 1258 1987 Unknown [id number] 2.16.840.1.469717.3.579.2. 1258 1987 Unknown [id number] 2.16.840.1.473734.3.579.2. 1258 1987 Unknown [id number] 2.16.840.1.639016.3.579.2. 1258 1987 Unknown [id number] 2.16.840.1.763126.3.579.2. 1258 1987 Unknown [id number] 2.16.840.1.626026.3.579.2. 1258 1987 Unknown [id number] 2.16.840.1.228804.3.579.2. 1258 1987 Unknown [id number] 2.16.840.1.256249.3.579.2. 1258 1987 Unknown [id number] 2.16.840.1.586481.3.579.2. 1258 1987 Unknown [id number] 2.16.840.1.033562.3.579.2. 1258 1987 Unknown [id number] 2.16.840.1.917695.3.579.2. 1258 1987 Unknown [id number] 2.16.840.1.471465.3.579.2. 1258 1959 Unknown [id number] 2.16.840.1.450586.19 Social History Date Type Detail Facility Unknown if ever smoked [facility] Other Start: 2022 End: 01-01-2024 Sex [address]igned [address] [facility] [employer] Other Start: 12-22-2022 Tobacco smoking stat NHIS Never smoked tobacco [facility] Start: 12-22-2022 [...] file [facility] Start: 01-01-2024 End: 02-13-2024 Alcoholic beverage intake Ex-drinker (finding) [facility] Start: 01-01-2024 Alcohol Comment I have a glass of wine or 2 glasses each evening with dinner [facility] Clinical Notes 05-11-2021 to 02-11-2024 Shelli Lundberg LPN - 02/11/2024 9:40 AM Mihir Malave LPN - 01/10/2024 10:10 AM America Ornelas, [employer] TECHNICIAN-PHYSICIAN ASSISTANT PSYCHIATRY - 01/01/2024 11:30 AM Christine Lundberg LPN - 11/28/2023 2:20 PM EDT Note Date & Type Note Facility 02-11-2024 History of Present illness Narrative Reason for [...] needed for nausea. sertraline (ZOLOFT) 50 mg, Daily ALLERGIES Allergies Allergen Reactions Amitriptyline Other Reaction(s): Other (See Comments) Extreme drowsiness Aspirin Other Reaction(s): hives,difficulty breathing Cyclobenzaprine Diclofenac Unknown Ibuprofen Other Reaction(s): All NSAIDS, hives Lamotrigine Other Reaction(s): rash-per patient report Meloxicam Unknown Naproxen Unknown Nsaids Other Reaction(s): Unknown Zoloft [Sertraline] PROBLEMS Active Ambulatory Problems Diagnosis Date Noted Attention deficit hyperactivity disorder (ADHD), combined type [place] 07/04/2022 Episodic mood disorder ([facility]) 07/04/2022 Generalized anxiety disorder ([facility]) 07/04/2022 Panic disorder ([facility]) 07/04/2022 Acquired scoliosis 09/09/2016 Allergic rhinitis 10/16/2019 Anxiety 01/31/2020 Asthma ([facility]) 12/31/2014 Chronic fatigue syndrome 07/03/2016 Chronic gastritis without bleeding 12/28/2022 Irritable bowel syndrome 07/03/2016 Migraine without aura and without status migrainosus, not intractable ([facility]) 09/19/2017 Mild intermittent asthma ([facility]) 02/28/2021 Primary localized osteoarthrosis of ankle and foot 03/13/2019 Vitamin D deficiency 12/28/2022 Headache 06/28/2023 Inadequate sleep hygiene 06/28/2023 Migraine ([facility]) 06/28/2023 Tenosynovitis of foot 06/28/2023 Nausea and vomiting 06/28/2023 Common migraine with intractable migraine ([facility]) 06/28/2023 Pain in limb 06/28/2023 Chronic tension-type headache, not intractable 06/28/2023 Sleep disturbance 06/28/2023 Insomnia, unspecified 06/28/2023 Other problems related to lifestyle 06/28/2023 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 08/10/2023 Resolved Ambulatory Problems Diagnosis Date Noted No Resolved Ambulatory Problems Past Medical History: Diagnosis Date Adenoma of left breast ADHD (attention deficit hyperactivity disorder) ([facility]) Anemia Back pain Common migraine ([facility]/HCC) 08/17/2015 Depression ([facility]) H/O colonoscopy H/O umbilical hernia repair Insomnia 06/25/2017 Migraines ([facility]) Nausea with vomiting 08/17/2015 Tendonitis of right hand Tension headache 08/17/2015 HISTORY PAST MEDICAL HISTORY SOCIAL HISTORY Past Medical History: Diagnosis Date Adenoma of left breast removed 2013 ADHD (attention deficit hyperactivity disorder) ([facility]) Anemia Anxiety Asthma ([facility]) Back pain Common migraine ([facility]/HCC) 08/17/2015 Depression ([facility]) H/O colonoscopy 2012 H/O umbilical hernia repair 2008 Headache 08/17/2015 Inadequate sleep hygiene 04/23/2018 Insomnia 06/25/2017 Migraine (CMS/HCC) 03/22/2017 Migraines ([facility]) Nausea with vomiting 08/17/2015 Pain in limb [...] nursing note reviewed. Exam conducted with a step down nurse present. Vitals: Estimated body mass index is 27.3 kg/m as calculated from the following: Height as of 10/18/23: 5' 3.75 . Weight as of this encounter: 157 lb 12.8 oz. BP: 120/70 Patient's last menstrual period was 09/01/2023. ASSESSMENT & PLAN ICD-10-CM 1. 23 weeks gestation of Z3A.23 POCT urinalysis dipstick manually resulted US OB SCAN FOR GROWTH 2. Second trimester Z34.92 3. Diabetes mellitus screening Z13.1 CBC Glucose tolerance, 1 hour US OB SCAN FOR GROWTH CBC Glucose tolerance, 1 hour Patient presents today for a routine obstetrics appointment. Patient is currently 23w2d with a Estimated Date of Delivery: 06/07/24. Pt given glucola order with instructions. Reviewed anatomy scan with pt in detail. Pt to return in 4 weeks for scheduled OB appt. Documented by Shelli Lundberg LPN on behalf of: Raghavendra Vasquez DO documented in this encounter [facility] 01-10-2024 History of Present illness Narrative Reason [...] Attention deficit hyperactivity disorder (ADHD), combined type ([facility]) 07/04/2022 Episodic mood disorder ([facility]) 07/04/2022 Generalized anxiety disorder ([facility]) 07/04/2022 Panic disorder ([facility]) 07/04/2022 Acquired scoliosis 09/09/2016 Allergic rhinitis 10/16/2019 Anxiety 01/31/2020 Asthma ([facility]) 12/31/2014 Chronic fatigue syndrome 07/03/2016 Chronic gastritis without bleeding 12/28/2022 Irritable bowel syndrome 07/03/2016 Migraine without aura and without status migrainosus, not intractable ([facility]) 09/19/2017 Mild intermittent asthma ([facility]) 02/28/2021 Primary localized osteoarthrosis of ankle and foot 03/13/2019 Vitamin D deficiency 12/28/2022 Headache 06/28/2023 Inadequate sleep hygiene 06/28/2023 Migraine ([facility]) 06/28/2023 Tenosynovitis of foot 06/28/2023 Nausea and vomiting 06/28/2023 Common migraine with intractable migraine ([facility]) 06/28/2023 Pain in limb 06/28/2023 Chronic tension-type headache, not intractable 06/28/2023 Sleep disturbance 06/28/2023 Insomnia, unspecified 06/28/2023 Other problems related to lifestyle 06/28/2023 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 08/10/2023 Resolved Ambulatory Problems Diagnosis Date Noted No Resolved Ambulatory Problems Past Medical History: Diagnosis Date Adenoma of left breast ADHD (attention deficit hyperactivity disorder) ([facility]) Anemia Back pain Common migraine (CMS/HCC) 08/17/2015 Depression ([facility]/HCC) H/O colonoscopy H/O umbilical hernia repair Insomnia 06/25/2017 Migraines ([facility]) Nausea with vomiting 08/17/2015 Tendonitis of right hand Tension headache 08/17/2015 HISTORY PAST MEDICAL HISTORY SOCIAL HISTORY Past Medical History: Diagnosis Date Adenoma of left breast removed 2013 ADHD (attention deficit hyperactivity disorder) (CMS/[facility]) Anemia Anxiety Asthma ([facility]) Back pain Common migraine ([facility]/HCC) 08/17/2015 Depression ([facility]) H/O colonoscopy 2012 H/O umbilical hernia repair 2008 Headache 08/17/2015 Inadequate sleep hygiene 04/23/2018 Insomnia 06/25/2017 Migraine (CMS/HCC) 03/22/2017 Migraines ([facility]) Nausea with vomiting 08/17/2015 Pain in limb [...] nursing note reviewed. Exam conducted with a step down nurse present. Vitals: Estimated body mass index is [...] obtained without difficulty and patient was given msAFP order to have obtained. Sent Omeprazole to [...] by Betsey Malave LPN on behalf of: Raghavendra Vasquez DO documented in this encounter [facility] 01-01-2024 History of Present illness Narrative Images [...] visit. 20 weeks. 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 Psychosocial stressors include . SUBJECTIVE: PAST MEDICAL HISTORY: Past Medical History: Diagnosis Date Adenoma of left breast removed 2013 ADHD (attention deficit hyperactivity disorder) ([facility]) Anemia Anxiety Asthma (CMS/[facility]) Back pain Common migraine (CMS/HCC) 08/17/2015 Depression (CMS/HCC) H/O colonoscopy 2012 H/O umbilical hernia repair 2007 Headache 08/17/2015 Inadequate sleep hygiene 04/23/2018 Insomnia 06/25/2017 Migraine (CMS/HCC) 03/22/2017 Migraines (CMS/[facility]) Nausea with vomiting 08/17/2015 Pain in limb [...] and Time Memory/Concentration Short term intact and mcfp intact Insight/Judgement Fair OBJECTIVE: Visit Vitals LMP [...] Visit time :32min documented in this encounter [facility] 11-28-2023 History of Present illness Narrative Reason [...] Attention deficit hyperactivity disorder (ADHD), combined type ([facility]) 07/04/2022 Episodic mood disorder ([facility]) 07/04/2022 Generalized anxiety disorder ([facility]) 07/04/2022 Panic disorder ([facility]) 07/04/2022 Acquired scoliosis 09/09/2016 Allergic rhinitis 10/16/2019 Anxiety 01/31/2020 Asthma ([facility]) 12/31/2014 Chronic fatigue syndrome 07/03/2016 Chronic gastritis without bleeding 12/28/2022 Irritable bowel syndrome 07/03/2016 Migraine without aura and without status migrainosus, not intractable ([facility]) 09/19/2017 Mild intermittent asthma ([facility]) 02/28/2021 Primary localized osteoarthrosis of ankle and foot 03/13/2019 Vitamin D deficiency 12/28/2022 Headache 06/28/2023 Inadequate sleep hygiene 06/28/2023 Migraine ([facility]) 06/28/2023 Tenosynovitis of foot 06/28/2023 Nausea and vomiting 06/28/2023 Common migraine with intractable migraine ([facility]) 06/28/2023 Pain in limb 06/28/2023 Chronic tension-type headache, not intractable 06/28/2023 Sleep disturbance 06/28/2023 Insomnia, unspecified 06/28/2023 Other problems related to lifestyle 06/28/2023 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 08/10/2023 Resolved Ambulatory Problems Diagnosis Date Noted No Resolved Ambulatory Problems Past Medical History: Diagnosis Date Adenoma of left breast ADHD (attention deficit hyperactivity disorder) ([facility]) Anemia Back pain Common migraine ([facility]) 08/17/2015 Depression ([facility]) H/O colonoscopy H/O umbilical hernia repair Insomnia 06/25/2017 Migraines ([facility]) Nausea with vomiting 08/17/2015 Tendonitis of right hand Tension headache 08/17/2015 HISTORY PAST MEDICAL HISTORY SOCIAL HISTORY Past Medical History: Diagnosis Date Adenoma of left breast removed 2013 ADHD (attention deficit hyperactivity disorder) ([facility] Anemia Anxiety Asthma ([facility]) Back pain Common migraine ([facility]) 08/17/2015 Depression ([facility]) H/O colonoscopy 2013 H/O umbilical hernia repair 2008 Headache 08/17/2015 Inadequate sleep hygiene 04/23/2018 Insomnia 06/25/2017 Migraine (CMS/HCC) 03/22/2017 Migraines ([facility]) Nausea with vomiting 08/17/2015 Pain in limb [...] nursing note reviewed. Exam conducted with a step down nurse present. Vitals: Estimated body mass index is [...] or undercooked meat, and stay away from [facility]. Patient has been consulted regarding any further [...] by Shelli Lundberg LPN on behalf of: Raghavendra Vasquez DO documented in this encounter [facility] 11-27-2023 History of Present illness Narrative Images [...] work done. 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 [facility]. Psychosocial stressors include . SUBJECTIVE: PAST MEDICAL HISTORY: Past Medical History: Diagnosis Date Adenoma of left breast removed 2013 ADHD (attention deficit hyperactivity disorder) [place] Anemia Anxiety Asthma [place]) Back pain Common migraine ([facility]) 08/17/2015 Depression ([facility] H/O colonoscopy 2012 H/O umbilical hernia repair 2007 Headache 08/17/2015 Inadequate sleep hygiene 04/23/2018 Insomnia 06/25/2017 Migraine ([facility]) 03/22/2017 Migraines ([facility] Nausea with vomiting 08/17/2015 Pain in limb [...] Time Memory/Concentration 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 female who presents for Amenorrhea Patient presents today for a Nurse OB Intake appointment. Patient is 8w5d with a Estimated Date of Delivery: 06/07/24 OB History Para Term AB Living 4 3 3 SAB IAB Ectopic Multiple Live Births 2 # Outcome Date GA Lbr Carlos Alberto/2nd Weight Sex Type Anes PTL Lv 4 Current 3 Para 04/18/12 7 lb 6 oz M Vag-Spont CHRISTIAN 2 Para 03/19/06 6 lb 12 oz M Vag-Spont CHRISTIAN 1 Para Current Medications: has a current medication list which includes the following prescription(s): albuterol hfa, albuterol hfa, sgokmyrkdo-gnxjbrxkfnxhw-szignpce , cyanocobalamin, d3-1000, dicyclomine, fluticasone, onabotulinumtoxina, ondansetron, promethazine, sertraline, and tizanidine. Medical History: Active Ambulatory Problems Diagnosis Date Noted Attention deficit hyperactivity disorder (ADHD), combined type ([facility] 07/04/2022 Episodic mood disorder ([facility]) 07/04/2022 Generalized anxiety disorder ([facility]) 07/04/2022 Panic disorder ([facility]) 07/04/2022 Acquired scoliosis 09/09/2016 Allergic rhinitis 10/16/2019 Anxiety 01/31/2020 Asthma ([facility]) 12/31/2014 Chronic fatigue syndrome 07/03/2016 Chronic gastritis without bleeding 12/28/2022 Irritable bowel syndrome 07/03/2016 Migraine without aura and without status migrainosus, not intractable ([facility] 09/19/2017 Mild intermittent asthma ([facility]) 02/28/2021 Primary localized osteoarthrosis of ankle and foot 03/13/2019 Vitamin D deficiency 12/28/2022 Headache 06/28/2023 Inadequate sleep hygiene 06/28/2023 Migraine ([facility]) 06/28/2023 Tenosynovitis of foot 06/28/2023 Nausea and vomiting 06/28/2023 Common migraine with intractable migraine ([facility]) 06/28/2023 Pain in limb 06/28/2023 Chronic tension-type headache, not intractable 06/28/2023 Sleep disturbance 06/28/2023 Insomnia, unspecified 06/28/2023 Other problems related to lifestyle 06/28/2023 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 08/10/2023 Resolved Ambulatory Problems Diagnosis Date Noted No Resolved Ambulatory Problems Past Medical History: Diagnosis Date Adenoma of left breast ADHD (attention deficit hyperactivity disorder) ([facility] Anemia Back pain Common migraine ([facility]) 08/17/2015 Depression ([facility]) H/O colonoscopy H/O umbilical hernia repair Insomnia 06/25/2017 Migraines ([facility]) Nausea with vomiting 08/17/2015 Tendonitis of right hand Tension headache 08/17/2015 Family History Problem Relation Name Age of [...] day Drug use: Not Currently Types: Benzodiazepines Past Surgical History: Procedure Laterality Date ABDOMINAL SURGERY 06/25/2017 BACK SURGERY 06/25/2017 BREAST SURGERY Left 12/2013 adenoma removed left breast SECTION, LOW TRANSVERSE 06/25/2017 CHOLECYSTECTOMY 06/25/2017 COLONOSCOPY 06/25/2017 COLPOSCOPY 2013 HYSTERECTOMY 06/25/2017 LEG SURGERY 09/2014 tibial and fibular sesmoid removal OOPHORECTOMY 06/25/2017 SALPINGECTOMY 06/15/2017 TIBIA FRACTURE SURGERY Left 2019 tibial sesmoid removal UMBILICAL HERNIA REPAIR 2008 WISDOM TOOTH EXTRACTION 06/15/2017 Allergies Allergen Reactions Amitriptyline Other Reaction(s): Other (See Comments) Extreme drowsiness Aspirin Other Reaction(s): hives,difficulty breathing Cyclobenzaprine Diclofenac Unknown Ibuprofen Other Reaction(s): All NSAIDS, hives Lamotrigine Other Reaction(s): rash-per patient report Meloxicam Unknown Naproxen Unknown Nsaids Other Reaction(s): Unknown Vitals: Estimated body mass index is 25.6 kg/m as calculated from the following: Height as of 10/18/23: 5' 3.75 . Weight as of this encounter: 148 lb. BP: Patient's last menstrual period was 09/01/2023. Assessment/Plan Diagnoses and all orders for this visit: Missed menses - Type and screen; Future - ABO/Rh; Future - CBC and differential - Hemoglobin A1c - RPR - Rubella antibody, IgG - Hepatitis B surface antigen - Hepatitis C antibody - HIV-1 and HIV-2 antibodies - Urine culture - US OB transvaginal; Future - POCT , urine manually resulted - POCT urinalysis dipstick manually resulted Nurse Note: PT did not make it there US new ob visit. Pt's LMP was used and RINA was given. Advised pt to schedule US w/tbh. Pt desired Lucas 21 advised pt to wait until 10 wks and have both unity and labs done at the same time. Pt verbally understood. Follow Up: Patient is to have labs drawn at directed and return to office for initial OB appointment with provider. Patient may call office as needed with any concerns or questions. Nurse Visit Completed by: An Dfufy MA documented in this encounter [facility] 10-19-2023 Telephone encounter Note Pt needs a letter stating that she was seen in office on 10/17 Please Fax to [phone] [facility] 10-19-2023 Miscellaneous Notes Pt needs a letter stating that she was seen in office on 10/17 Please Fax to [phone] documented in this encounter [facility] 10-18-2023 History of Present illness Narrative Tiki Matson is a 38 y.o. female presents with chief complaint of Nausea/Vomiting In HPI: HPI History of Present Illness The patient is a 38-year-old female who presents for evaluation of nausea and vomiting. She recently discovered her and is currently in the 6th or 7th week. Her first appointment with Dr. Vasquez is scheduled for 11/01/2023. She has been experiencing morning sickness, similar to her previous pregnancies, but does not recall what alleviated the symptoms then. This morning, she vomited four times. The severity of her morning sickness prevented her from going to work today. She has not yet started taking vitamins. She is curious about the safety of massages during , as she read online that they could pose risks during the first trimester due to increased blood flow. However, she did not encounter any issues related to massages in her past pregnancies. She purchased gummy cheese for dinner last night but was unable to eat it due to severe nausea. She is hesitant to try it today for fear of vomiting. SUBJECTIVE: MEDICATIONS: Current Outpatient Medications Medication Instructions albuterol HFA (ProAir HFA) 90 mcg/act inhaler albuterol HFA (ProAir HFA) 90 mcg/act inhaler 2 puffs, Inhalation, Every 4 hours PRN mxpbbdgpiu-hdsbbghnvqkxh-xveskxkr 50-325-40 MG tablet TAKE 1 TABLET BY MOUTH AT ONSET OF HEADACHE *MAY REPEAT IN 2 HRS NEEDED *MAX 2DAYS/WEEK 30 DAYS Cyanocobalamin 2500 MCG sublingual tablet Every 24 hours D3-1000 25 MCG (1000 UT) tablet TAKE 1 TABLET BY MOUTH EVERY DAY FOR 90 DAYS dicyclomine (Bentyl) 20 MG tablet TAKE 1 TABLET BY MOUTH 3 (THREE) TIMES A DAY NEEDED (DIARRHEA). fluticasone (Flonase) 50 MCG/ACT nasal spray 1 spray, Nasal, Daily onabotulinumtoxinA (Botox) 200 units injection sertraline (ZOLOFT) 50 mg, Oral, Daily tiZANidine (Zanaflex) 4 MG tablet Every 24 hours ALLERGIES: Allergies Allergen Reactions Amitriptyline Other Reaction(s): Other (See Comments) Extreme drowsiness Aspirin Other Reaction(s): hives,difficulty breathing Cyclobenzaprine Diclofenac Unknown Ibuprofen Other Reaction(s): All NSAIDS, hives Lamotrigine Other Reaction(s): rash-per patient report Meloxicam Unknown Naproxen Unknown Nsaids Other Reaction(s): Unknown SURGICAL HISTORY: Past Surgical History: Procedure Laterality Date ABDOMINAL SURGERY 06/25/2017 BACK SURGERY 06/25/2017 BREAST SURGERY Left 12/2013 adenoma removed left breast SECTION, LOW TRANSVERSE 06/25/2017 CHOLECYSTECTOMY 06/25/2017 COLONOSCOPY 06/25/2017 COLPOSCOPY 2013 HYSTERECTOMY 06/25/2017 LEG SURGERY 09/2014 tibial and fibular sesmoid removal OOPHORECTOMY 06/25/2017 SALPINGECTOMY 06/15/2017 TIBIA FRACTURE SURGERY Left 2019 tibial sesmoid [...] (09/25/2023) PHQ-2 PHQ-2 Score: 0 REVIEW OF SYMPTOMS: Review of Systems OBJECTIVE: Visit Vitals BP 122/76 (BP Location: Left arm, Patient Position: Sitting, BP Cuff Size: Adult) Pulse 92 Resp 20 Ht 5' 3.75 Wt 150 lb 9.6 oz BMI 26.05 kg/m Smoking Status Never BSA 1.75 m Physical Exam Constitutional: Appearance: Normal appearance. She is normal weight. Musculoskeletal: Cervical back: Normal range of motion and neck supple. Skin: General: Skin is warm and dry. Neurological: General: No focal deficit present. Mental Status: She is alert and oriented to person, place, and time. Mental status is at baseline. Psychiatric: Mood and Affect: Mood normal. Behavior: Behavior normal. Thought Content: Thought content normal. Judgment: Judgment normal. ASSESSMENT AND PLAN: Assessment/Plan Problem List Items Addressed This Visit None Visit Diagnoses Morning sickness - Primary Relevant Medications ondansetron (Zofran) 4 MG tablet ondansetron ODT (Zofran-ODT) 4 MG disintegrating tablet Assessment & Plan 1. Nausea and vomiting. Her symptoms of nausea and vomiting are likely related to her current . She reported vomiting four times this morning. She was advised to consume dry crackers, such as saltines, before rising from bed to help settle her stomach. The use of wristbands was also suggested. A prescription for Zofran 4 mg was provided, to be taken as needed for nausea. She was instructed to start vitamins immediately, which contain essential folic acid to prevent spinal column malformations. It was communicated that massages should not pose any issues during her , but she was advised to consult with her massage therapist and Dr. Vasquez's office for further guidance. documented in this encounter [facility] 10-18-2023 History of Present illness Narrative Images from the original note were not included. Subjective Tiki Matson is a 38 y.o. female. Patient was to be seen for botox injections but she just found out that she is . She was not planning but not preventing . 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 She has been receiving the Botox injections [...] during those pregnancies. She has having some vacuum tank tender sickness with nausea. Objective Neurological Exam Physical Exam No chief complaint on file. Mendoza Matson, 38 y.o., female HPI Past Medical History: Diagnosis Date Adenoma of left breast removed 2013 ADHD (attention deficit hyperactivity disorder) (CMS/[facility]) Anemia Anxiety Asthma (CMS/HCC) Back pain Common [...] Return to clinic: documented in this encounter [facility] 08-03-2021 Note FINDINGS: Sonographic evaluation targeted to the painful palpable areas within the right breast. Multiple subcentimeter benign simple cysts within the right upper quadrant. Mild periareolar ductal dilatation (3-4 mm diameter). No suspicious solid nodule or mass. IMPRESSION: BI RADS 2 : BENIGN FINDINGS Report reported and signed by Alexei Smith on 08/03/2021 [id number] [facility] [employer] 05-11-2021 Evaluation note Encounter Date Diagnosis Assessment Notes Apr, Encounter for immunization (ICD-10 - Z23) Patient presents for COVID-19 vaccination #2. Pre-screening form answers evaluated with patient. Patient denies current illness or allergic reaction to component of COVID-19 vaccine. Patient provided with current copy of EUA. [employer] Other Evaluation note* Diagnosis Attention deficit hyperactivity disorder (ADHD), combined type (CMS/HCC) Generalized anxiety disorder (CMS/HCC) Generalized anxiety disorder documented in this encounter [facility]* Diagnosis First trimester state, incidental [...] reflux in documented in this encounter [facility]* Diagnosis 23 weeks gestation of Second trimester state, incidental Diabetes mellitus screening Screening for diabetes mellitus documented in this encounter [facility]* Diagnosis Morning sickness- Primary Mild hyperemesis gravidarum, unspecified as to episode of care documented in [facility] encounter [facility]* Diagnosis Missed menses Other migraine without status migrainosus, not intractable (CMS/HCC) documented [facility] encounter [facility]* Diagnosis 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)- Primary , unspecified gestational age Primary insomnia Persistent disorder of initiating or maintaining sleep Generalized anxiety disorder (CMS/HCC) Generalized anxiety disorder [...] t Surgical History tibial and fibular sesmoid 8 15 [employer] Other Summary Purpose Family History No Family [...] and content) DATE CREATED AUTHOR 05/25/2021 [facility] DATE CREATED AUTHOR AUTHOR'S ORGANIZ ATION 08/04/2021 [facility] dical Specialist DATE CREATED AUTHOR AUTHOR'S ORGANIZ ATION 11/23/2021 [facility] DATE CREATED AUTHOR AUTHOR'S ORGANIZ ATION 12/19/2022 [facility] DATE CREATED AUTHOR AUTHOR'S ORGANIZ ATION 02/16/2024 [facility] dical Specialists EPIC REASON FOR VISIT (unrecogniz ed section and content) Reason Comments Routine Visit Reason Comments Med Management Follow-up Reason Comments Well Women Visit Routine Visit STI Screening Reason Comments Nausea/Vomiting In Reason Comments Amenorrhea Reason Comments Migraine Care Teams (unrecognized sec tion and content) Auto Radiator Mechanic Relationship Specialty Start Date End Date Ysabel Cabral MD [address] [place] [address] PCP - General Family Medicine 07/29/22 Ale Zaldivar MD [address] [facility] [place] [address] PCP - [facility] 05/28/23 Auto Radiator Mechanic Relationship Specialty Start Date End Date Ysabel Cabral MD [address] [place] [address] PCP - General Family Medicine 07/29/22 Ale Zaldivar MD [address] [facility] [place] [address] PCP - [facility] 05/28/23 Auto Radiator Mechanic Relationship Specialty Start Date End Date Ysabel Cabral MD [address] [facility] [place] [address] PCP - General Family Medicine 07/29/22 Ale Zaldivar MD [address] [facility] [place] [address] PCP - [facility] 05/28/23 Auto Radiator Mechanic Relationship Specialty Start Date End Date Ysabel Cabral MD [address] [place] [address] PCP - General Family Medicine 07/29/22 Ale Zaldivar MD [address] [place] [address] PCP - [facility] 05/28/23 Auto Radiator Mechanic Relationship Specialty Start Date End Date Ysabel Cabral MD [address] [place] [address] PCP - [facility] 07/29/22 Ale Zaldivar MD [address] [place] [address] PCP - [facility] 05/28/23 Auto Radiator Mechanic Relationship Specialty Start Date End Date Ysabel Cabral MD [address] [place] [address] PCP - [facility] 07/29/22 Ale Zaldivar MD [address] [place] [address] PCP - [facility] 05/28/23 Auto Radiator Mechanic Relationship Specialty Start Date End Date Ysabel Cabral MD [address] [place] [address] PCP - General Family Medicine 07/29/22 Chloe Carvajal TEACHER LEARNING DISABLED [address] [place] [address] PCP - [facility] 11/27/23 Auto Radiator Mechanic Relationship Specialty Start Date End Date Ysabel Cabral MD [address] [place] [address] PCP - General Family Medicine 07/29/22 Chloe Carvajal, TEACHER LEARNING DISABLED [address] [place] [address] PCP - [facility] 11/27/23 Auto Radiator Mechanic Relationship Specialty Start Date End Date Ysabel Cabral MD [address] [place] [address] PCP - General Family Medicine 07/29/22 Chloe Carvajal, TEACHER LEARNING DISABLED [address] [facility] [place] [address] PCP - [facility] 11/27/23 Auto Radiator Mechanic Relationship Specialty Start Date End Date Ysabel Cabral MD [address] [facility] [place] [address] PCP - General Family Medicine 07/29/22 Chloe Carvajal, TEACHER LEARNING DISABLED PCP - [facility] 11/27/23 Auto Radiator Mechanic Relationship Specialty Start Date End Date Ysabel Cabral MD [address] [facility] [place] [address] PCP - General Family Medicine 07/29/22 Chloe Carvajal, TEACHER LEARNING DISABLED PCP - [facility] 11/27/23 Auto Radiator Mechanic Relationship Specialty Start Date End Date Ysabel Cabral MD [address] [place] [address] PCP - General Family Medicine 07/29/22 Ale Zaldivar MD [address] [place] [address] PCP - [facility] 05/28/23 Auto Radiator Mechanic Relationship Specialty Start Date End Date Ysabel Cabral MD [address] [place] [address] PCP - General Family Medicine 07/29/22 Ale Zaldivar MD [address] [place] [address] PCP - [facility] 05/28/23 Auto Radiator Mechanic Relationship Specialty Start Date End Date Ysabel Cabral MD [address] [place] [address] PCP - [facility] 07/29/22 Ale Zaldivar MD [address] [place] [address] PCP - [facility] 05/28/23 Auto Radiator Mechanic Relationship Specialty Start Date End Date Ysabel Cabral MD [address] [place] [address] PCP - General Family Medicine 07/29/22 Chloe Carvajal NP PCP - [facility] 11/27/23 Auto Radiator Mechanic Relationship Specialty Start Date End Date Ysabel Cabral MD [address] [place] [address] PCP - General Family Medicine 07/29/22 Ale Zaldivar MD [address] [place] [address] [facility] - [facility] 05/28/23 Auto Radiator Mechanic Relationship Specialty Start Date End Date Ysabel Cabral MD [address] [facility] [place], [place] [id number] PCP - [facility] Family [facility] 07/29/22 Ale Zaldivar MD [address] [facility] [place], [place] [id number] PCP - [facility] 05/28/23 Auto Radiator Mechanic Relationship Specialty Start Date End Date Ysabel Cabral MD [address] [facility] [place], [place] [id number] PCP - General Family [facility] 07/29/22 Chloe Carvajal NP PCP - [facility] 11/27/23 FOR RECORDS PERTAINING TO PATIENTS [...] BE BASED ON THE PRIMARY CLINICAL RECORDS. [facility] [employer] [facility]. provides no warranty or guarantee of the accuracy or completeness of information in this document.
[2024-03-07 19:51] VITALS: BP 108/69; PULSE 88
[2024-03-07 19:52] VITALS: TEMP 36.1; O2SAT 100
[2024-03-07 20:03] VITALS: TEMP 36.1
[2024-03-07 20:11] LABS: Bilirubin Urine NEGATIVE (NEGATIVE); Blood Urine NEGATIVE (NEGATIVE); Clarity Urine CLEAR (CLEAR); Color Urine YELLOW (YELLOW); Glucose Urine UA NEGATIVE (NEGATIVE); Ketones Urine TRACE mg/dL (NEGATIVE); Leukocyte Esterase Urine NEGATIVE (NEGATIVE); Nitrite Urine NEGATIVE (NEGATIVE); Protein Urine TRACE mg/dL (NEG/TRACE); Specific Gravity Urine 1.025 (1.005-1.025); pH Urine 7.5 (5.0-9.0)
[2024-03-07 20:12] LABS: Urine Microscopic Indicated NO
[2024-03-07] MEDS: 0.9 % SODIUM CHLORIDE 1,000 ML 1000 ML IV (20:55)
[2024-03-07 20:59] LABS: Basophils Percent Auto 0.2 % (0.2-2.0); Eosinophils Absolute Auto 0.1 10^3/uL (0.0-0.7); Eosinophils Percent Auto 1.1 % (0.9-7.0); Hemoglobin 10.2 g/dL (12.0-16.0); Immature Granulocytes Abs Auto 0.05 10^3/uL (0.00-0.03); Immature Granulocytes Pct Auto 0.5 % (0.0-0.5); Lymphocytes Absolute Auto 2.5 10^3/uL (1.2-3.8); Lymphocytes Percent Auto 23.9 % (20.5-60.0); Mean Corpuscular HGB Conc 32.9 g/dL (29.9-35.2); Mean Corpuscular Hemoglobin 26.6 pg (26.7-34.0); Mean Corpuscular Volume 80.7 fL (81.0-99.0); Mean Platelet Volume 10.5 fL (9.5-13.5); Monocytes Absolute Auto 0.7 10^3/uL (0.3-0.8); Monocytes Percent Auto 7.2 % (1.7-12.0); Neutrophils Absolute Auto 6.9 10^3/uL (1.4-6.5); Neutrophils Percent Auto 67.1 % (43.0-75.0); Platelet Count 265 10^3/uL (150-450); Red Blood Count 3.84 10^6/uL (4.20-5.40); Red Cell Distribution Width 12.9 % (11.0-15.0); White Blood Count 10.3 10^3/uL (4.0-11.0)
[2024-03-07 21:11] LABS: Anion Gap 12.2; Calcium 8.8 mg/dL (8.5-10.1); Carbon Dioxide 26.2 mmol/L (21.0-32.0); Chloride 105 mmol/L (98-107); Estimated GFR (African America >60 (>=60 mL/min/1.73m^2); Estimated GFR (Non-African Ame >60 (>=60 mL/min/1.73m^2); Glucose 78 mg/dL (74-106); Potassium 3.4 mmol/L (3.5-5.1); Sodium 140 mmol/L (136-145)
== END 2024-03-07 22:12 | disposition home or self-care (01) ==
PROVIDERS: Admitting Provider Obstetrics & Gynecology; PCP Family Medicine; Visit Provider Obstetrics & Gynecology
DX: O26.892 Other specified pregnancy related conditions, second trimester (principal); R42 Dizziness and giddiness; Z3A.26 26 weeks gestation of pregnancy
CPT/HCPCS: 36415; 59025; 80048; 81003; 85025; G0378; G0379

== ENCOUNTER 2024-03-10 11:09 | Outpatient (OUT) | payer OTHER, SELFPAY ==
--- OUTSIDE RECORDS SUMMARY | 2024-03-10 11:33 | XMS_ITS | CCD ---
Author Organization [facility] Care Team Providers Care 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 Name Role Phone Vicky Joe Unavailable WEST, DR SANON Admitting Unavailable KARASIK, DR SANON Attending Unavailable KARASIK, DR SANON Consulting Unavailable KARASIK, DR SANON Attending Unavailable KARASIK, DR SANON Consulting Unavailable ESEASIK, DR SANON Admitting Unavailable CHLOE CARVAJAL Attending Unavailable CHLOE CARVAJAL Consulting Unavailable CHLOE CARVAJAL Admitting Unavailable Ysabel Cabral MD Primary Care Provider [phone] Ale Zaldivar MD Unavailable Dillon RETURNS PROCESSOR, Chloe Swift Unavailable Dillon RETURNS PROCESSOR, Chloe Swift Unavailable TERESA ORNELAS Attending Unavailab [...] source) Aspirin Drug Allergy shortness of breath [facility] Other (20 sources) Diclofenac Drug Allergy 07-05-19 23 Unknown [facility] Other (20 sources) Ibuprofen Drug Allergy 07-05-19 Unknown [facility] Other (20 sources) Naproxen Drug Allergy 07-05-19 23 Unknown [facility] Other (20 sources) NSAIDs Drug allergy 07-05-19 Unknown [facility] Other (1 source) Aspirin Drug Allergy 02-26-18 90 [facility] (1 source) cyclobenzaprine Drug Allergy 01-10-20 15 [facility] (1 source) Diclofenac Drug Allergy 01-10-20 15 [facility] (1 source) Ibuprofen Drug Allergy 08-04-19 16 [facility] (1 source) NSAIDs Drug allergy (disorder) 01-02-20 14 [facility] (20 sources) Aluminum aspirin Drug Allergy 07-05-19 23 [facility] (20 sources) Amitriptyline Drug Allergy 03-22-19 18 [facility] (20 sources) cyclobenzaprine Drug Allergy 01-24-20 16 [facility] (20 sources) Lamotrigine Allergy to substance 07-05-19 23 [facility] (20 sources) meloxicam Drug Allergy 07-05-19 23 Unknown [facility] (14 sources) Sertraline Drug Allergy 01-01-20 24 [facility] Medications Current Medications Medication Drug Class(es) [...] Active cyclobenzaprine hydrochloride 5 mg oral tablet (4 sources) Muscle Relaxant Start: 02-11-2024 take 0.5-1 [...] mouth Daily 30 tablet 11/01/2023 12/01/2023 Active magnesium oxide 400 mg oral tablet (1 source) Start: 02-13-2024 End: 02-12-2025 take 1 tablet by mouth once daily magnesium oxide (Mag-Ox) 400 MG tablet Indications: 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 Take before meals. Do not crush or chew.. 30 capsule 3 01/10/2024 Active take 1 capsule by [facility] every twenty-four hours Omeprazole 20 MG 1 [...] 20 tablet 1 09/24/2023 11/28/2023 Discontinued (Other) [id number] 200 actuat albuterol 0.09 mg/actuat metered dose [...] Test Name Value Interpretation Reference Range Facility [facility] UA (CLEAN/CATCH) MANAGER ENROLLMENT/LA RO IF IND.on 03-07-2024 BILIRUBIN URINE Negative NEGATIVE [facility] BLOOD URINE Negative NEGATIVE [facility] Clarity (U) CLEAR CLEAR [facility] Color (U) YELLOW YELLOW [facility] GLUCOSE URINE UA Negative NEGATIVE mg/dL [facility] Interpretation and review of laboratory results Abnormal [facility] Ketones Ql (U) TRACE Abnormal NEGATIVE mg/dL [facility] Leukocyte esterase Test strip Ql (U) Negative NEGATIVE [facility] NITRITE URINE Negative NEGATIVE [facility] pH (U) 7.5 [pH] 5.0 - 9.0 [facility] PROTEIN URINE TRACE NEG/TRACE mg/dL [facility] SPECIFIC GRAVITY URINE 1.025 1.005 - 1.025 [facility] URINE MICROSCOPIC INDICATED NO [facility] UROBILINOGEN URINE 1.0 EU/dL 0.2 - 1.0 EU/dL [facility] Urinalysis macro (dipstick) panel (U)on 02-11-2024 Bilirubin, UA Negative Negative - 4(70) +++ mg/dL [facility] Blood, UA Negative Negative - 50 Armand/mcL [facility] Clarity, UA Clear [facility] Color, UA Yellow [facility] Glucose, UA Negative Negative - 2000(110) ++++ mg/dL [facility] Interpretation and review of laboratory results Abnormal [facility] Ketones, UA Negative Negative - 160(16) ++++ mg/dL [facility] Leukocytes, UA Negative Negative - 500+++ Doe/mcL [facility] Nitrite, UA Negative Negative - Positive [facility] pH, UA 7.5 5 - 9 [facility] Protein, UA Trace Negative - 1999(20) ++++ mg/dL [facility] Spec Grav, UA 1.015 1 - 1.03 [facility] Urobilinogen, UA 0.2 0.2 - 12 mg/dL [facility] IGP,APTIMA HPV,AGE GDLNon AGE GDLN ACOG TESTING Note . [facility] Comment on above: TESTS RESULT FLAG UN ITS REF RANGE LAB Clinician Provided Cytology Information Source.............Cervix Other.............. No. of containers..01 ThinPrep Vial Age Algo ACOG Beverly... 30-65 01 FLAG LEGEND: L-Low Normal,H-High Normal,LL-Alert Low,HH-Alert High <-Panic Low,>-Panic High,A-Abnormal,AA-Critical Abnormal Performed at: 01 =G [address] [place] [address] Judith Ventura MD, HPV APTIMA Negative Negative [facility] Comment on above: This nucleic acid am plification test detects fourteen high- risk HPV types (16,18,31,33,35,39,45,51,52,56,58,59,66,68) without differentiation. Performed at: =G - [facility] [id number] Litigation Manager: Judith Ventura MD, Phone: [phone] Performed at: - [facility], [place] [id number] Litigation Manager: Judith Ventura MD, Phone: [phone] IGP, APTIMA HPV, RFX 16/18,45 Note . [facility] Comment on above: TESTS RESULT FLAG UN ITS REF RANGE LAB DIAGNOSIS: 02 NEGATIVE FOR INTRAEPITHELIAL LESION OR MALIGNANCY. Specimen adequacy: 02 Satisfactory for evaluation. Endocervical and/or squamous metaplastic cells (endocervical component) are present. Performed by: Kae Frank, Dosier Operator (ASCP) . 02 Note: Note 02 The [...] <-Panic Low,>-Panic High,A-Abnormal,AA-Critical Abnormal Performed at: [address] [address] Judith Ventura MD, SPATULA-ALONE CERVIX [facility] RECURRENT VAGINITIS (HTRX)on 01-11-2024 ATOPOBIUM VAGINAE 0 [facility] ATOPOBIUM VAGINAE Not detected [facility] BVAB 2,3 (BACTERIAL VAGINOSIS ASSOCIATED BACTERIA 2, 3); MOBILUNCUS SPP 0 [facility] BVAB 2,3 (BACTERIAL VAGINOSIS ASSOCIATED BACTERIA 2, 3); MOBILUNCUS SPP Not detected [facility] LOC ALBICANS, PARAPSILOSIS, TROPICALIS 0 [facility] LOC ALBICANS, PARAPSILOSIS, TROPICALIS Not detected [facility] LOC GLABRATA 0 [facility] LOC GLABRATA Not detected [facility] LOC KRUSEI 0 [facility] LOC KRUSEI Not detected [facility] CHLAMYDIA TRACHOMATIS 0 [facility] CHLAMYDIA TRACHOMATIS Not detected [facility] GARDNERELLA VAGINALIS 0 [facility] GARDNERELLA VAGINALIS Not detected [facility] MEGASPHAERA (TYPES 1, 2) 0 [facility] MEGASPHAERA (TYPES 1, 2) Not detected [facility] MYCOPLASMA GENITALIUM 0 [facility] MYCOPLASMA GENITALIUM Not detected [facility] NEISSERIA GONORRHOEAE 0 [facility] NEISSERIA GONORRHOEAE Not detected [facility] TRICHOMONAS VAGINALIS 0 [facility] TRICHOMONAS VAGINALIS Not detected [facility] Urinalysis macro (dipstick) panel (U)on 01-10-2024 Bilirubin, UA Negative Negative - 4(70) +++ mg/dL [facility] Blood, UA Negative Negative - 50 Armand/mcL [facility] Clarity, UA Clear [facility] Color, UA Yellow [facility] Glucose, UA Negative Negative - 2000(110) ++++ mg/dL [facility] Interpretation and review of laboratory results Abnormal [facility] Ketones, UA Positive Negative - 160(16) ++++ mg/dL [facility] Leukocytes, UA Negative Negative - 500+++ Doe/mcL [facility] Nitrite, UA Negative Negative - Positive [facility] pH, UA 7 5 - 9 [facility] Protein, UA Negative Negative - 2000(20) ++++ mg/dL [facility] Spec Grav, UA 1.015 1 - 1.03 [facility] Urobilinogen, UA 1.0 0.2 - 12 mg/dL [facility] ALL CBC WITH AUTO DIFFon BASOPHILS ABSOLUTE AUTO 0.0 [facility] Basophils/100 WBC (Bld) 0.2 % 0.2 - 2.0 % [facility] Eosinophils/100 WBC (Bld) 2.3 % 0.9 - 7.0 % [facility] Erythrocyte distribution width (RBC) [Ratio] 12.3 % 11.0 - 15.0 % [facility] Hematocrit (Bld) [Volume fraction] 37.1 % 36.0 - 48.0 % [facility] Hemoglobin (Bld) [Mass/Vol] 12.3 g/dL 12.0 - 16.0 g/dL [facility] IMMATURE GRANULOCYTES ABS AUTO 0.04 High [facility] Immature granulocytes/100 WBC (Bld) 0.4 % 0.0 - 0.5 % [facility] Interpretation and review of laboratory results Abnormal [facility] LYMPHOCYTES ABSOLUTE AUTO 2.7 [facility] Lymphocytes/100 WBC (Bld) 28.4 % 20.5 - 60.0 % [facility] MCH (RBC) [Entitic mass] 28.0 pg 26.7 - 34.0 pg [facility] MCHC (RBC) [Mass/Vol] 33.2 g/dL 29.9 - 35.2 g/dL [facility] MCV (RBC) [Entitic vol] 84.3 fL 81.0 - 99.0 fL [facility] MONOCYTES ABSOLUTE AUTO 0.5 [facility] Monocytes/100 WBC (Bld) 5.0 % 1.7 - 12.0 % [facility] NEUTROPHILS ABSOLUTE AUTO 6.0 [facility] Neutrophils/100 WBC (Bld) 63.7 % 43.0 - 75.0 % [facility] Platelet mean volume (Bld) [Entitic vol] 10.4 fL 9.5 - 13.5 fL [facility] TBH EO # 0.2 [facility] TB PLT [address] [facility] RBC 4.40 [facility] WBC 9.4 [facility] Urinalysis macro (dipstick) panel (U)on 11-28-2023 Bilirubin, UA Negative Negative - 4(70) +++ mg/dL [facility] Blood, UA Negative Negative - 50 Armand/mcL [facility] Clarity, UA Clear [facility] Color, UA Yellow [facility] Glucose, UA Negative Negative - 1999(110) ++++ mg/dL [facility] Interpretation and review of laboratory results Normal [facility] Ketones, UA Negative Negative - 160(16) ++++ mg/dL [facility] Leukocytes, UA Negative Negative - 500+++ Doe/mcL [facility] Nitrite, UA Negative Negative - Positive [facility] pH, UA 7.0 5 - 9 [facility] Protein, UA Negative Negative - 1999(20) ++++ mg/dL [facility] Spec Grav, UA 1.025 1 - 1.03 [facility] Urobilinogen, UA 1.0 0.2 - 12 mg/dL [facility] URINE CULTURE, ROUTINEon Bacteria identified Cx Nom (U) Urine Culture, Routine [facility] Bacteria identified Cx Nom (U) Culture shows less than 10,000 colony forming units of bacteria per [facility] Bacteria identified Cx Nom (U) milliliter of urine. This colony count is not generally considered [facility] Bacteria identified Cx Nom (U) to be clinically significant. [facility] Bacteria identified Cx Nom (U) Performed at: [facility] Bacteria identified Cx Nom (U) [address] [place] [phone] [facility] Bacteria identified Cx Nom (U) Litigation Manager: Michael Berry PhD, Phone: [phone] [facility] HCG ( test) Ql (U)o n 11-01-2023 Interpretation and review of laboratory results Abnormal [facility] Preg Test, Ur Positive [facility] Urinalysis macro (dipstick) panel (U)on 11-01-2023 Bilirubin, UA Negative Negative - 4(70) +++ mg/dL [facility] Blood, UA Negative Negative - 50 Armand/mcL [facility] Clarity, UA Clear [facility] Color, UA Yellow [facility] Glucose, UA Negative Negative - 1999(110) ++++ mg/dL [facility] Interpretation and review of laboratory results Normal [facility] Ketones, UA Negative Negative - 160(16) ++++ mg/dL [facility] Leukocytes, UA Negative Negative - 500+++ Doe/mcL [facility] Nitrite, UA Negative Negative - Positive [facility] pH, UA 6.0 5 - 9 [facility] Protein, UA Negative Negative - 2000(20) ++++ mg/dL [facility] Spec Grav, UA 1.020 1 - 1.03 [facility] Urobilinogen, UA 0.2 0.2 - 12 mg/dL [facility] XR CERVICAL SPINE AP/LAT/FLE X/EXT/OBLIQUESon 08-16-2023 XR [...] [Mass/Vol] 8.9 mg/dL Normal (8.6 - 10.6) [facility] Comment on above: Performed By: #### C BC/2A, ESRCRP, CCP, HBC-M, HBSAG, HCV, CA, MG, RHF, URCA #### [facility] [address] [facility], [address] CBC, ALB, ALT, AST, ALK AND CREAon 12-18-2022 Albumin [Mass/Vol] 5.0 g/dL Normal (3.5 - 5.0) [facility] Comment on above: Order Comment: FACIL ITY: [facility] [id number] Performed By: #### C BC/2A, ESRCRP, CCP, HBC-M, HBSAG, HCV, CA, MG, RHF, URCA #### [facility] [address] [facility], [address] ALK PHOS 60 U/L Normal (38 - 126) [facility] Comment on above: Order Comment: FACIL ITY: [facility] [id number] Performed By: #### C BC/2A, ESRCRP, CCP, HBC-M, HBSAG, HCV, CA, MG, RHF, URCA #### [facility] [address] [facility], [address] ALT [Catalytic activity/Vol] 34 U/L Normal (1 - 35) [facility] Comment on above: Order Comment: FACIL ITY: [facility] [id number] Performed By: #### C BC/2A, ESRCRP, CCP, HBC-M, HBSAG, HCV, CA, MG, RHF, URCA #### [facility] [address] [facility], [address] AST [Catalytic activity/Vol] 34 U/L Normal (15 - 46) [facility] Comment on above: Order Comment: FACIL ITY: [facility] [id number] Performed By: #### C BC/2A, ESRCRP, CCP, HBC-M, HBSAG, HCV, CA, MG, RHF, URCA #### [facility] [address] [facility], [address] Creatinine [Mass/Vol] 0.61 mg/dL Normal (0.52 - 1.04) [facility] Comment on above: Order Comment: FACIL ITY: [facility] [id number] Performed By: #### C BC/2A, ESRCRP, CCP, HBC-M, HBSAG, HCV, CA, MG, RHF, URCA #### [facility] [address] [facility], [address] GFR- AMER 135.1 ML/M1.7 Normal (60.0 - 140.1) [facility] Comment on above: Order Comment: FACIL ITY: [facility] [id number] Performed By: #### C BC/2A, ESRCRP, CCP, HBC-M, HBSAG, HCV, CA, MG, RHF, URCA #### [facility] [address] [facility], [id number] GFR-NON AFRIC-AMER 111.6 ML/M1.7 Normal (60.0 - 115.8) [facility] Comment on above: Order Comment: FACIL ITY: [facility] [id number] Performed By: #### C BC/2A, ESRCRP, CCP, HBC-M, HBSAG, HCV, CA, MG, RHF, URCA #### [facility] [address] [facility], [id number] Hematocrit (Bld) [Volume fraction] 41.5 % Normal (37.0 - 47.0) [facility] Comment on above: Order Comment: FACIL ITY: [facility] [id number] Performed By: #### C BC/2A, ESRCRP, CCP, HBC-M, HBSAG, HCV, CA, MG, RHF, URCA #### [facility] [address] [facility], [id number] Hemoglobin (Bld) [Mass/Vol] 13.5 g/dL Normal (12.0 - 16.0) [facility] Comment on above: Order Comment: FACIL ITY: [facility] [id number] Performed By: #### C BC/2A, ESRCRP, CCP, HBC-M, HBSAG, HCV, CA, MG, RHF, URCA #### [facility] [address] [facility], [id number] MCH (RBC) [Entitic mass] 28.7 pg Normal (27.0 - 33.0) [facility] Comment on above: Order Comment: FACIL ITY: [facility] [id number] Performed By: #### C BC/2A, ESRCRP, CCP, HBC-M, HBSAG, HCV, CA, MG, RHF, URCA #### [facility] [address] [facility], [id number] MCHC (RBC) [Mass/Vol] 32.5 g/dL Normal (30.0 - 37.0) [facility] Comment on above: Order Comment: FACIL ITY: [facility] O [id number] Performed By: #### C BC/2A, ESRCRP, CCP, HBC-M, HBSAG, HCV, CA, MG, RHF, URCA #### [facility] [address] [facility], [address] MCV (RBC) [Entitic vol] 88.1 fL Normal (81.0 - 99.0) [facility] Comment on above: Order Comment: FACIL ITY: [facility] [id number] Performed By: #### C BC/2A, ESRCRP, CCP, HBC-M, HBSAG, HCV, CA, MG, RHF, URCA #### [facility] [address] [facility], [address] PLT 282 x10^3ul Normal (130 - 400) [facility] Comment on above: Order Comment: FACIL ITY: [facility] [id number] Performed By: #### C BC/2A, ESRCRP, CCP, HBC-M, HBSAG, HCV, CA, MG, RHF, URCA #### [facility] [address] [facility], [address] RBC 4.71 x10^6ul Normal (4.20 - 5.40) [facility] Comment on above: Order Comment: FACIL ITY: [facility] O [id number] Performed By: #### C BC/2A, ESRCRP, CCP, HBC-M, HBSAG, HCV, CA, MG, RHF, URCA #### [facility] [address] [facility], [address] WBC 6.47 x10^3ul Normal (3.80 - 10.60) [facility] Comment on above: Order Comment: FACIL ITY: [facility] O [id number] Performed By: #### C BC/2A, ESRCRP, CCP, HBC-M, HBSAG, HCV, CA, MG, RHF, URCA #### [facility] [address] [facility], [address] HEP B CORE AB, IGMon HEPATITIS B CORE ANTIBODY, IGM Negative Normal (NEG - NEG) [facility] Comment on above: Performed By: #### C BC/2A, ESRCRP, CCP, HBC-M, HBSAG, HCV, CA, MG, RHF, URCA #### [facility] [address] [facility], [address] HEP B HERACLOI AGon 12-18-2022 HEP B HERACLIO AG Negative Normal (NEG - NEG) [facility] Comment on above: Performed By: #### C BC/2A, ESRCRP, CCP, HBC-M, HBSAG, HCV, CA, MG, RHF, URCA #### [facility] [address] [facility], [address] HEP C ANTIBODYon 12-18-2022 HEPATITIS C ANTIBODY Negative Normal (NEG - NEG) [facility] Comment on above: Performed By: #### C BC/2A, ESRCRP, CCP, HBC-M, HBSAG, HCV, CA, MG, RHF, URCA #### [facility] [address] [place] [address] Rd. [facility], [address] MAGNESIUMon 12-18-2022 Magnesium [Mass/Vol] 2.0 mg/dL Normal (1.6 - 2.3) [facility] Comment on above: Performed By: #### C BC/2A, ESRCRP, CCP, HBC-M, HBSAG, HCV, CA, MG, RHF, URCA #### [facility] [address] [facility], [address] RF FACTORon 12-18-2022 RF FACTOR <9 Normal (0 - 12) [facility] Comment on above: Result Comment: RF F ACTOR = LESS THAN 9 IU/ML RF FACTOR MIN. DETECTION = 9 IU/ML. Performed By: #### C BC/2A, ESRCRP, CCP, HBC-M, HBSAG, HCV, CA, MG, RHF, URCA #### [facility] [address] [facility], [address] SED RATE - CRPon 12-18-2022 CRP EXTENDED RANGE 1.40 MG/L Normal (0.00 - 3.20) [facility] Comment on above: Performed By: #### C BC/2A, ESRCRP, CCP, HBC-M, HBSAG, HCV, CA, MG, RHF, URCA #### [facility] [address] [facility], [address] SED RATE WEST. 5 MM/HR Normal (0 - 25) [facility] Comment on above: Performed By: #### C BC/2A, ESRCRP, CCP, HBC-M, HBSAG, HCV, CA, MG, RHF, URCA #### [facility] [address] [facility], [address] URIC ACIDon 12-18-2022 Urate [Mass/Vol] 4.2 mg/dL Normal (2.5 - 6.2) [facility] Comment on above: Performed By: #### C BC/2A, ESRCRP, CCP, HBC-M, HBSAG, HCV, CA, MG, RHF, URCA #### [facility] [address] [facility], [address] PAP ACOG PANEL 2: 30 to 65on 11-16-2021 . . Normal [facility] Comment on above: Result Comment: Perf ormed at: WB Performed By: #### [id number] #### [facility] [address] [address] [address] Sierra Almonte Age Gdln ACOG Testing 30-65 Normal [facility] Comment on above: Performed By: #### [id number] #### [facility] [address] [address] [address] Sierra Almonte DIAGNOSIS: Comment Normal [facility] Comment on above: Result Comment: NEGA TIVE FOR INTRAEPITHELIAL LESION OR MALIGNANCY. Performed at: WB Performed By: #### [id number] #### [facility] [address] [place] [address] Dr. Sierra Almonte HPV Aptima Negative Normal Negative [facility] Comment on above: Result Comment: This nucleic acid amplification test detects fourteen high-risk HPV types (16,18,31,33,35,39,45,51,52,56,58,59,66,68) without differentiation. Performed at: =G Performed By: #### [id number] #### [facility] [address] [place] [address] Dr. Sierra Almonet Methodology: Comment Normal [facility] Comment on above: Result Comment: This liquid based ThinPrep(R) pap test was screened with the use of an image guided system. Performed at: WB Performed By: #### [id number] #### [facility] [address] [place] [address] Dr. Sierra Almonte Note: Comment Normal [facility] Comment on above: Result Comment: The Pap smear is a screening test designed to aid in the detection of premalignant and malignant conditions of the uterine cervix. It is not a diagnostic procedure and should not be used as the sole means of detecting cervical cancer. Both false-positive and false-negative reports do occur. . Performed at: WB Performed By: #### [id number] #### [facility] [address] [place] [address] Dr. Sierra Almonte Performed by: Comment Normal [place] Comment on above: Result Comment: Alison Sapp, Dosier Operator (ASCP) Performed at: WB Performed By: #### [id number] #### [facility] [address] [place] [address] Dr. Sierra Almonte Specimen adequacy: Comment Normal [facility] Comment on above: Result Comment: Sati sfactory for evaluation. Endocervical and/or squamous metaplastic cells (endocervical component) are present. Performed at: [facility] Performed By: #### [id number] #### [facility] [address] [place] [address] Dr. Sierra Almonte Thyroidon 07-14-2021 US Thyroid [...] by Alexei Smith on 07/14/2021 1000 Normal [facility] Complete Blood Count with Au to Diffon 07-12-2021 Basophils (Bld) [#/Vol] 0.02 10*3/uL Normal 0.00-0.20 [facility] Comment on above: Performed By: #### C BCAD, RF, VITD, ESR, TSH reflex FT4, CMP, FT4 #### [facility] [address] [place], [place] [id number] Basophils/100 WBC (Bld) 0.3 % Normal [facility] Comment on above: Performed By: #### C BCAD, RF, VITD, ESR, TSH reflex FT4, CMP, FT4 #### [facility] [address] [place], [place] [id number] Eosinophils (Bld) [#/Vol] 0.08 10*3/uL Normal 0.02-0.50 [facility] Comment on above: Performed By: #### C BCAD, RF, VITD, ESR, TSH reflex FT4, CMP, FT4 #### [facility] [address] [place], [place] [id number] Eosinophils/100 WBC (Bld) 1.2 % Normal [facility] Special[facility] Comment on above: Performed By: #### C BCAD, RF, VITD, ESR, TSH reflex FT4, CMP, FT4 #### [facility] [address] [place], [place] [id number] Erythrocyte distribution width (RBC) [Ratio] 13.8 % Normal 11.0-15.0 [facility] Comment on above: Performed By: #### C BCAD, RF, VITD, ESR, TSH reflex FT4, CMP, FT4 #### [facility] [address] [place], [place] [id number] Hematocrit (Bld) [Volume fraction] 39.6 % Normal 35.0-47.0 [facility] Comment on above: Performed By: #### C BCAD, RF, VITD, ESR, TSH reflex FT4, CMP, FT4 #### [facility] [address] [place], [place] [id number] Hemoglobin (Bld) [Mass/Vol] 12.9 g/dL Normal 11.6-15.5 [facility] Comment on above: Performed By: #### C BCAD, RF, VITD, ESR, TSH reflex FT4, CMP, FT4 #### [facility] [address] [place], [place] [id number] Lymphocytes (Bld) [#/Vol] 1.3 10*3/uL Normal 0.9-3.9 [facility] Comment on above: Performed By: #### C BCAD, RF, VITD, ESR, TSH reflex FT4, CMP, FT4 #### [facility] [address] [place], [place] [id number] Lymphocytes/100 WBC (Bld) 20.3 % Normal [facility] Comment on above: Performed By: #### C BCAD, RF, VITD, ESR, TSH reflex FT4, CMP, FT4 #### [facility] [address] [place], [place] [id number] MCH (RBC) [Entitic mass] 28.3 pg Normal 27.0-33.0 [facility] Comment on above: Performed By: #### C BCAD, RF, VITD, ESR, TSH reflex FT4, CMP, FT4 #### [facility] [address] [place], [place] [id number] MCHC (RBC) [Mass/Vol] 32.6 g/dL Normal 32.0-36.0 [facility] Comment on above: Performed By: #### C BCAD, RF, VITD, ESR, TSH reflex FT4, CMP, FT4 #### [facility] [address] [place], [place] [id number] MCV (RBC) [Entitic vol] 87 fL Normal 80-100 [facility] Comment on above: Performed By: #### C BCAD, RF, VITD, ESR, TSH reflex FT4, CMP, FT4 #### [facility] [address] [place], [place] [id number] Monocytes (Bld) [#/Vol] 0.4 10*3/uL Normal 0.2-0.9 [facility] Comment on above: Performed By: #### C BCAD, RF, VITD, ESR, TSH reflex FT4, CMP, FT4 #### [facility] [address] [place], [place] [id number] Monocytes/100 WBC (Bld) 5.8 % Normal [facility] Comment on above: Performed By: #### C BCAD, RF, VITD, ESR, TSH reflex FT4, CMP, FT4 #### [facility] [address] [place], [place] [id number] Neutrophils (Bld) [#/Vol] 4.7 10*3/uL Normal 1.5-7.8 [facility] Comment on above: Performed By: #### C BCAD, RF, VITD, ESR, TSH reflex FT4, CMP, FT4 #### [facility] [address] [place], [place] [id number] Neutrophils/100 WBC (Bld) 72.1 % Normal [facility] Comment on above: Performed By: #### C BCAD, RF, VITD, ESR, TSH reflex FT4, CMP, FT4 #### [facility] [address] [place], [place] [id number] Platelet mean volume (Bld) [Entitic vol] 11.00 fL Normal 7.50-12.50 [facility] Comment on above: Performed By: #### C BCAD, RF, VITD, ESR, TSH reflex FT4, CMP, FT4 #### [facility] [address] [place], [place] [id number] Platelets (Bld) [#/Vol] 271 10*3/uL Normal 140-400 [facility] Comment on above: Performed By: #### C BCAD, RF, VITD, ESR, TSH reflex FT4, CMP, FT4 #### [facility] [address] [place], [place] [id number] RBC (Bld) [#/Vol] 4.56 10*6/uL Normal 3.90-5.20 [facility] Specialist Comment on above: Performed By: #### C BCAD, RF, VITD, ESR, TSH reflex FT4, CMP, FT4 #### [facility] [address] [place], [place] [id number] RDW-SD 43.5 fL Normal 37.0-50.0 [facility] Comment on above: Performed By: #### C BCAD, RF, VITD, ESR, TSH reflex FT4, CMP, FT4 #### [facility] [address] [place], [place] [id number] WBC (Bld) [#/Vol] 6.5 10*3/uL Normal 3.8-11.0 [facility] It Help Desk Technician Comment on above: Performed By: #### C BCAD, RF, VITD, ESR, TSH reflex FT4, CMP, FT4 #### [facility] [address] [place], [place] [id number] Comprehensive Metabolic Pane [facility] 07-12-2021 Albumin [Mass/Vol] 4.9 g/dL Normal 3.6-5.1 [facility] It Help Desk Technician Comment on above: Performed By: #### C BCAD, RF, VITD, ESR, TSH reflex FT4, CMP, FT4 #### [facility] [address] [place], [place] [id number] Albumin/Globulin [Mass ratio] 2.2 {ratio} Normal 1.0-2.5 [facility] Comment on above: Performed By: #### C BCAD, RF, VITD, ESR, TSH reflex FT4, CMP, FT4 #### [facility] [address] [place], [place] [id number] ALP [Catalytic activity/Vol] 63 U/L Normal 35-119 [facility] Comment on above: Performed By: #### C BCAD, RF, VITD, ESR, TSH reflex FT4, CMP, FT4 #### [facility] [address] [place], [place] [id number] ALT [Catalytic activity/Vol] 26 U/L Normal 6-33 [facility] Comment on above: Result Comment: 01/26 Female reference range changed. Performed By: #### C BCAD, RF, VITD, ESR, TSH reflex FT4, CMP, FT4 #### [facility] [address] [place], [place] [id number] Anion gap [Moles/Vol] 18 mmol/L Normal 12-20 [facility] Comment on above: Result Comment: Effe ctive 03/03/2019 reference range changed. Performed By: #### C BCAD, RF, VITD, ESR, TSH reflex FT4, CMP, FT4 #### [facility] [address] [place], [place] [id number] AST [Catalytic activity/Vol] 26 U/L Normal 9-34 [facility] Comment on above: Performed By: #### C BCAD, RF, VITD, ESR, TSH reflex FT4, CMP, FT4 #### [facility] [address] [place], [place] [id number] BUN/CREA 10 Ratio Normal 6-22 [facility] Comment on above: Performed By: #### C BCAD, RF, VITD, ESR, TSH reflex FT4, CMP, FT4 #### [facility] [address] [place], [place] [id number] Calcium [Mass/Vol] 10.0 mg/dL Normal 8.6-10.2 [facility] Comment on above: Performed By: #### C BCAD, RF, VITD, ESR, TSH reflex FT4, CMP, FT4 #### [facility] [address] [place], [place] [id number] Chloride [Moles/Vol] 105 mmol/L Normal 98-107 [facility] Comment on above: Performed By: #### C BCAD, RF, VITD, ESR, TSH reflex FT4, CMP, FT4 #### [facility] [address] [place], [place] [id number] CO2 [Moles/Vol] 21 mmol/L Normal 20-31 [facility] Comment on above: Performed By: #### C BCAD, RF, VITD, ESR, TSH reflex FT4, CMP, FT4 #### [facility] [address] [place], [place] [id number] Creatinine [Mass/Vol] 0.6 mg/dL Normal 0.6-1.4 [facility] Comment on above: Performed By: #### C BCAD, RF, VITD, ESR, TSH reflex FT4, CMP, FT4 #### [facility] [address] [place], [place] [id number] eGFRAA 132 mL/min/1.73m2 Normal >60 [facility] Comment on above: Performed By: #### C BCAD, RF, VITD, ESR, TSH reflex FT4, CMP, FT4 #### [facility] [address] [place], [place] [id number] eGFRNAA 109 mL/min/1.73m2 Normal >60 [facility] Comment on above: Performed By: #### C BCAD, RF, VITD, ESR, TSH reflex FT4, CMP, FT4 #### [facility] [address] [place], [place] [id number] Globulin (S) [Mass/Vol] 2.2 g/dL Normal 1.9-3.7 [facility] Special[facility] Comment on above: Performed By: #### C BCAD, RF, VITD, ESR, TSH reflex FT4, CMP, FT4 #### [facility] [address] [place], [place] [id number] Glucose [Mass/Vol] 86 mg/dL Normal 65-99 [facility] It Help Desk Technician Comment on above: Result Comment: For FASTING Glucose --- ADA reference ranges: Normal 65-99 mg/dl Prediabetes 100-125 Diabetes >/= 126 Performed By: #### C BCAD, RF, VITD, ESR, TSH reflex FT4, CMP, FT4 #### [facility] [address] [place], [place] [id number] Potassium [Moles/Vol] 4.1 mmol/L Normal 3.5-5.5 [facility] It Help Desk Technician Comment on above: Performed By: #### C BCAD, RF, VITD, ESR, TSH reflex FT4, CMP, FT4 #### [facility] [address] [place], [place] [id number] Protein [Mass/Vol] 7.1 g/dL Normal 6.1-8.1 [facility] It Help Desk Technician Comment on above: Performed By: #### C BCAD, RF, VITD, ESR, TSH reflex FT4, CMP, FT4 #### [facility] [address] [place], [place] [id number] Sodium [Moles/Vol] 140 mmol/L Normal 135-146 [facility] It Help Desk Technician Comment on above: Performed By: #### C BCAD, RF, VITD, ESR, TSH reflex FT4, CMP, FT4 #### [facility] [address] [place], [place] [id number] TBIL <0.3 Normal [facility] It Help Desk Technician Comment on above: Performed By: #### C BCAD, RF, VITD, ESR, TSH reflex FT4, CMP, FT4 #### [facility] [address] [place], [place] [id number] Urea nitrogen [Mass/Vol] 7 mg/dL Normal 7-25 [facility] It Help Desk Technician Comment on above: Performed By: #### C BCAD, RF, VITD, ESR, TSH reflex FT4, CMP, FT4 #### [facility] [address] [place], [place] [id number] Free T4on 07-12-2021 Free T4 [Mass/Vol] 0.93 ng/dL Normal 0.80-1.80 [place] [place] [facility] Help Desk Technician Comment on above: Performed By: #### C BCAD, RF, VITD, ESR, TSH reflex FT4, CMP, FT4 #### [facility] [address] [place], [place] [id number] Q - PASQUALE SCREEN IFA W/RFL TIT ER AND PATTERNon 07-12-2021 PASQUALE SCREEN, IFA Negative Normal NEGATIVE [facility] Comment on above: Order Comment: [facility] performed at: QPT, [facility], [address], [address] [place], [address], Geological Manager: Leonard Turpin MD [facility] Date/Time: [facility] [...] AC-0: Negative International Consensus on PASQUALE Patterns (https://doi.org/10.1515/zhix-5252-3189) For additional information, please refer to http://education.[employer]/faq/ZOY242 (This link is being provided for informational/ educational purposes only.) Performed By: #### 2 49 #### [facility] Default [address] [place] [address] RBC Sedimentation Rateon ESR (Bld) [Velocity] 8.00 mm/h Normal 0.00-20.00 [facility] Comment on above: Performed By: #### C BCAD, RF, VITD, ESR, TSH reflex FT4, CMP, FT4 #### [facility] [address] [id number] Rheumatoid Factoron 07-13-19 22 RF <10 Normal [facility] Comment on above: Performed By: #### C BCAD, RF, VITD, ESR, TSH reflex FT4, CMP, FT4 #### [facility] [address] [place], [place] [id number] TSH w/ Reflex to Free T4on 0 07-12-2021 TSH 0.321 uIU/mL Low 0.400-4.500 [facility] It Help Desk Technician Comment on above: Performed By: #### C BCAD, RF, VITD, ESR, TSH reflex FT4, CMP, FT4 #### [facility] [address] [place], [place] [id number] Vitamin D 25-OHon 07-12-2021 VIT D 25 OH 19 ng/ml Low >29 [facility] It Help Desk Technician Comment on above: Result Comment: Ade min D Status Deficiency <20 ng/mL Insufficiency 20-29 ng/mL Optimal 30-100 ng/mL Possible Toxicity >=150 ng/mL Performed By: #### C BCAD, RF, VITD, ESR, TSH reflex FT4, CMP, FT4 #### [facility] [address] [place], [place] [id number] Comprehensive Metabolic Empo n 04-11-2021 Albumin [Mass/Vol] 4.6 g/dL Normal 3.2-5.5 [facility] Comment on above: Performed By: #### E BS CMP, EBS LIPID #### [facility] [address] [place] [id number] [facility] Albumin/Globulin [Mass ratio] 1.9 {ratio} Normal [facility] Comment on above: Performed By: #### E BS CMP, EBS LIPID #### [facility] [address] [place] [address] [place] ALP [Catalytic activity/Vol] 43 U/L Normal 32-92 [facility] Comment on above: Performed By: #### E BS CMP, EBS LIPID #### [facility] [address] [place] [address] [place] ALT [Catalytic activity/Vol] 17 U/L Normal 10-60 [facility] Comment on above: Performed By: #### E BS CMP, EBS LIPID #### [facility] [address] [place] [address] [place] AST [Catalytic activity/Vol] 20 U/L Normal 10-42 [facility] Comment on above: Performed By: #### E BS CMP, EBS LIPID #### [facility] [address] [place] [address] [place] Bilirubin [Mass/Vol] 1.1 mg/dL Normal 0.3-1.2 [facility] Comment on above: Performed By: #### E BS CMP, EBS LIPID #### [facility] [address] [place] [address] [place] Calcium [Mass/Vol] 9.6 mg/dL Normal 8.2-10.2 [facility] Comment on above: Performed By: #### E BS CMP, EBS LIPID #### [facility] [address] Chloride [Moles/Vol] 102 mmol/L Normal 95-114 [facility] Comment on above: Performed By: #### E BS CMP, EBS LIPID #### [facility] [address] CO2 [Moles/Vol] 21.4 mmol/L Low 22.0-30.0 [facility] Comment on above: Performed By: #### E BS CMP, EBS LIPID #### [facility] [address] [place] [address] Creatinine [Mass/Vol] 0.71 mg/dL Normal 0.44-1.03 [facility] Comment on above: Performed By: #### E BS CMP, EBS LIPID #### [address] Estimated GFR ( Michelle > 60 Normal [facility] Comment on above: Result Comment: GFR estimated reference range: According to KDOQI guidelines, <60 ml/min/1.73m2 is sufficient to diagnose a patient with chronic kidney disease. Performed By: #### E BS CMP, EBS LIPID #### [facility] [address] Estimated GFR (Non- Am > 60 Normal [facility] Comment on above: Performed By: #### E BS CMP, EBS LIPID #### [facility] [address] [place] [address] [place] Globulin (S) [Mass/Vol] 2.4 g/dL Normal [facility] Comment on above: Performed By: #### E BS CMP, EBS LIPID #### [facility] [address] Glucose [Mass/Vol] 76 mg/dL Normal 70-100 [facility] Comment on above: Performed By: #### E BS CMP, EBS LIPID #### [facility] [address] Potassium [Moles/Vol] 3.3 mmol/L Low 3.5-5.1 [facility] Comment on above: Performed By: #### E BS CMP, EBS LIPID #### [facility] [address] Protein [Mass/Vol] 7.0 g/dL Normal 6.1-7.9 [facility] Comment on above: Performed By: #### E BS CMP, EBS LIPID #### [facility] [address] Sodium [Moles/Vol] 136 mmol/L Normal 136-146 [facility] Comment on above: Performed By: #### E BS CMP, EBS LIPID #### [facility] [address] [place] [address] [place] Urea nitrogen [Mass/Vol] 5 mg/dL Low 9-23 [facility] Comment on above: Performed By: #### E BS CMP, EBS LIPID #### [facility] [address] Lipid Profileon 04-11-2021 Cholesterol [Mass/Vol] 189 mg/dL Normal 140-200 [facility] Comment on above: Result Comment: Chol less than 200 mg/dl low risk Chol 201-239 mg/dl borderline risk Chol 240 mg/dl and greater high risk Performed By: #### E BS CMP, EBS LIPID #### [facility] [address] Cholesterol in HDL [Mass/Vol] 69 mg/dL Normal 35-85 [facility] Comment on above: Result Comment: HDL CHOL ATP-III CLASSIFICATION Cardiovascular Risk HDL > or equal to 60 mg/dL LOW HDL < 40 mg/dL HIGH Performed By: #### E BS CMP, EBS LIPID #### [facility] [address] Cholesterol.total/C holesterol in HDL [Mass ratio] 2.7 {ratio} Normal <5.0 [facility] Comment on above: Result Comment: PERF ORMED BY: [address] [place] [address] PATHOLOGIST DOMESTIC HELPER PAT PETERS M.D. Performed By: #### E BS CMP, EBS LIPID #### [facility] [address] LDL Cholesterol,Calcula shadi 107 mg/dL High 0-100 [facility] Comment on above: Result Comment: LDL ATP III CLASSIFICATION LDL less than 100 mg/dL Optimal LDL 100-129 mg/dL Near or above optimal LDL 130-159 mg/dL Borderline high LDL 160-189 mg/dL High LDL greater than 189 mg/dL Very high Performed By: #### E BS CMP, EBS LIPID #### [facility] [address] Triglyceride w/Reflex 64 mg/dL Normal 35-149 [facility] Comment on above: Result Comment: TRIG ATP III CLASSIFICATION TRIG less than 150 mg/dL Normal TRIG 150-199 mg/dL Borderline high TRIG 200-500 mg/dL High TRIG greater than 500 mg/dL Very high Standard traceable to the Center for Disease Conrtrol and Prevention (CDC) test method. Performed By: #### E BS CMP, EBS LIPID #### [facility] [address] VLDL CHOLESTEROL 12 mg/dL Normal [facility] Comment on above: Performed By: #### E BS CMP, EBS LIPID #### [facility] [address] [place] [address] [place] Covid-19 PCR (CVDTBH)on SARS-CoV-2 (COVID-19) RNA ERIC+probe Ql (Unsp spec) Detected Critically abnormal NOT DETECTED [facility] Comment on above: Result Comment: This test is not yet approved or cleared by the [place] FDA. When there are no FDA-approved or cleared tests available, and other criteria are met, FDA can make tests available under an emergency access mechanism called an Emergency Use Authorization (EUA). The EUA for this test is supported by the Clinical Technologist of Health and Human Service's (HHS's) declaration [...] used). Performed By: #### C VDTBH #### [facility] [address] [place] [address] Dr. Sierra Almonte CHLAMYDIA/GONOCOCCUS ERIC ( AB/URINE/PAPon 12-14-2020 Chlamydia trachomatis, ERIC Negative Normal Negative [facility] Comment on above: Performed By: #### C T/NGNA #### [facility] [address] [place] [address] Dr. Sierra Almonte Neisseria gonorrhoeae, ERIC Negative Normal Negative [facility] Comment on above: Performed By: #### C T/NGNA #### [facility] [address] [place] [address] Dr. Sierra Almonte VAGINITIS/VAGINOSIS DNA PROB Andrew 12-11-2020 Loc species Negative Normal Negative [facility] Comment on above: Performed By: #### V AGINT #### [facility] [address] [place] [address] Dr. Sierra Almonte Gardnerella vaginalis Positive Abnormal Negative [facility] Comment on above: Performed By: #### V AGINT #### [facility] [address] [place] [address] Dr. Sierra Almonte Trichomonas vaginalis Negative Normal Negative [facility] Comment on above: Performed By: #### V AGINT #### [facility] [address] [place] [address] Dr. Sierra Almonte Vital Signs Date Time Vital Sign Value Performing Clinician Faci lity 02-13-2024 13:14-0500 Body height 160 cm Emerita Dair RETURNS PROCESSOR Work Phone: [facility] 02-13-2024 13:14-0500 Body mass index (BMI) [Ratio] 26.93 kg/m2 Emerita Whittakermor RETURNS PROCESSOR Work Phone: [facility] 02-13-2024 13:14-0500 Body weight 68.95 kg Emerita Whittakermor RETURNS PROCESSOR Work Phone: [facility] 02-13-2024 13:14-0500 Diastolic blood pressure 72 mm[Hg] Emerita Whittakermor RETURNS PROCESSOR Work Phone: [facility] 02-13-2024 13:14-0500 Heart rate 109 /min Emerita Dair RETURNS PROCESSOR Work Phone: [facility] 02-13-2024 13:14-0500 Systolic blood pressure 119 mm[Hg] Emerita Whittakermor RETURNS PROCESSOR Work Phone: [facility] 02-11-2024 10:19-0500 Body mass index (BMI) [Ratio] 27.3 kg/m2 Raghavendra Christina DO Work Phone: [facility] 02-11-2024 10:19-0500 Body weight 71.58 kg Raghavendra Christina DO Work Phone: [facility] 02-11-2024 10:19-0500 Diastolic blood pressure 70 mm[Hg] Raghavendra Christina DO Work Phone: [facility] 02-11-2024 10:19-0500 Systolic blood pressure 120 mm[Hg] Raghavendra Christina DO Work Phone: [facility] 01-10-2024 10:44-0500 Body mass index (BMI) [Ratio] 26.3 kg/m2 Raghavendra Christina DO Work Phone: [facility] 01-10-2024 10:44-0500 Body weight 68.95 kg Raghavendra Christina DO Work Phone: [facility] 01-10-2024 10:44-0500 Diastolic blood pressure 74 mm[Hg] Raghavendra Christina DO Work Phone: [facility] 01-10-2024 10:44-0500 Systolic blood pressure 116 mm[Hg] Raghavendra Christina DO Work Phone: [facility] 01-01-2024 11:40-0500 Body mass index (BMI) [Ratio] 25.78 kg/m2 Teresa Jo Ann-Nossek CHIEF MEDIA OFFICER-MANAGER ENROLLMENT Work Phone: [facility] 01-01-2024 11:40-0500 Body weight 67.59 kg Teresa Jo Ann-Nossek CHIEF MEDIA OFFICER-MANAGER ENROLLMENT Work Phone: [facility] 01-01-2024 11:40-0500 Diastolic blood pressure 82 mm[Hg] Teresa Jo Ann-Nossek CHIEF MEDIA OFFICER-MANAGER ENROLLMENT Work Phone: [facility] 01-01-2024 11:40-0500 Heart rate 99 /min Teresa Jo Ann-Nossek CHIEF MEDIA OFFICER-MANAGER ENROLLMENT Work Phone: [facility] 01-01-2024 11:40-0500 Systolic blood pressure 100 mm[Hg] Teresa Jo Ann-Nossek CHIEF MEDIA OFFICER-MANAGER ENROLLMENT Work Phone: [facility] 11-28-2023 14:53-0400 Body mass index (BMI) [Ratio] 25.57 kg/m2 Raghavendra Christina DO Work Phone: [facility] 11-28-2023 14:53-0400 Body weight 67.04 kg Raghavendra Christina DO Work Phone: [facility] 11-28-2023 14:53-0400 Diastolic blood pressure 74 mm[Hg] Raghavendra Christina DO Work Phone: [facility] 11-28-2023 14:53-0400 Systolic blood pressure 114 mm[Hg] Raghavendra Christina DO Work Phone: [facility] 11-01-2023 15:16-0400 Body mass index (BMI) [Ratio] 25.6 kg/m2 [facility] Nurse [facility] 11-01-2023 15:16-0400 Body weight 67.13 kg [facility] Nurse [facility] 10-18-2023 11:32-0400 Body height 161.9 cm Ysabel Cabral MD Work Phone: [facility] 10-18-2023 11:32-0400 Body mass index (BMI) [Ratio] 26.05 kg/m2 Ysabel Cabral MD Work Phone: [facility] 10-18-2023 11:32-0400 Body weight 68.31 kg Ysabel Cabral MD Work Phone: [facility] 10-18-2023 11:32-0400 Diastolic blood pressure 76 mm[Hg] Ysabel Cabral MD Work Phone: [facility] 10-18-2023 11:32-0400 Heart rate 92 /min Ysabel Cabral MD Work Phone: [facility] 10-18-2023 11:32-0400 Respiratory rate 20 /min Ysabel Cabral MD Work Phone: [facility] 10-18-2023 11:32-0400 Systolic blood pressure 122 mm[Hg] Ysabel Cabral MD Work Phone: [facility] Healthcare Encounters Encounter Date Encounter Type Care Provider Facility Start: 03-07-2024 End: 03-07-2024 Clinisync Result Encounter Raghavendra Christina DO Work Phone: [facility] Unsolicited Start: 03-07-2024 End: 03-07-2024 Clinisync Result Encounter Raghavendra Christina DO Work Phone: [facility] Unsolicited Start: 02-13-2024 End: 02-13-2024 Bamboo flowsheet Emerita Remediosmor RETURNS PROCESSOR Work Phone: [facility] [address] Start: 02-13-2024 End: 02-13-2024 Bamboo flowsheet Emerita Gillmor RETURNS PROCESSOR Work Phone: [facility] [place] [address] [facility] Start: 02-13-2024 End: 02-13-2024 ambulatory EMERITA GILLMOR Not Available Start: 02-13-2024 End: 02-13-2024 Office outpatient visit 15 minutes Emerita Warren RETURNS PROCESSOR Work Phone: [facility] [place] [address] Comment on above: Intractable chronic [...] 01-01-2024 Bamboo flowsheet Teresa Alonzo Jo Ann-Nossek CHIEF MEDIA OFFICER-[employer]ingshuai Teach Work Phone: [facility] Start: 01-01-2024 End: 01-01-2024 Bamboo flowsheet Teresa Alonzo Jo Ann-Nossek CHIEF MEDIA OFFICER-[employer] Teach Work Phone: [facility] Start: 01-01-2024 End: 01-01-2024 ambulatory TERESA Alonzo JO ANN-NOSSEK Not Available Start: 01-01-2024 End: 01-01-2024 Office outpatient visit 25 minutes Teresa Alonzo Jo Ann-Nossek CHIEF MEDIA OFFICER-[employer] Teach Work Phone: [facility] Comment on [...] Office outpatient visit 15 minutes Teresa Alonzo Jo Ann-Nossek CHIEF MEDIA OFFICER-[employer]ings[employer]ai Teach Work Phone: [facility] Comment on above: Attention deficit hy peractivity disorder (ADHD), combined type (CMS/HCC); Generalized anxiety disorder (CMS/HCC) Start: 11-27-2023 End: 11-27-2023 ambulatory TERESA Cheri JOHNSON Not Available Start: 11-01-2023 End: 11-01-2023 [...] 25 minutes Evonne Jaydon DO Work Phone: [facility] [address] Comment on above: Intractable chronic [...] Available Start: 08-16-2023 End: 08-16-2023 ambulatory CHLOE Jeniffer DILLON Not Available Start: 08-10-2023 End: 08-10-2023 ambulatory YSABEL CABRAL Not Available Start: 08-07-2023 End: 08-07-2023 ambulatory TERESA Alonzo JO ANN-NOSSEK Not Available Start: 06-28-2023 End: 06-28-2023 ambulatory EVONNE CHILDRESS Not Available Start: 06-20-2023 End: 06-20-2023 ambulatory TERESA ARRINGTONOR-NOSSEK Not Available Start: 06-11-2023 End: 06-11-2023 ambulatory TERESA Alonzo JO ANN-NOSSEK Not Available Start: 03-21-2023 End: 03-21-2023 ambulatory TERESA SMITH-NOSSEK Not Available Start: 11-09-2021 End: 11-09-[address] TALITA DODSON Facility:[facility]1 Start: 05-11-2021 ([facility] C Vac) [facility] Co vid Vaccine Vicky Joe [facility] Care [facility] Start: 05-11-2021 End: 05-11-2021 ambulatory Vicky Joe Other [facility] Other Start: 03-01-2021 End: 03-01-2021 ambulatory CHLOE DILLON Facility:[facility] Start: 12-10-2020 End: 12-10-[address] TALITA DODSON Facility:[facility] Procedures Date Procedure Procedure Detail Performing Clinician Start: 03-07-2024 TBH UA (CLEAN/CATCH) MANAGER ENROLLMENT/MICRO IF IND. Raghavendra Vasquez DO Work Phone: Start: 02-11-2024 Urnls dip stick/tabl et rgnt non-auto w/o micrscp Raghavendra Vasquez DO Work Phone: Start: 01-10-2024 RECURRENT VAGINITIS (HTRX) Raghavendra Vasquez DO Work Phone: Start: 01-10-2024 Urnls dip stick/tabl et rgnt non-auto w/o micrscp Raghavendra Christina DO Work Phone: Start: 01-10-2024 IGP,APTIMA HPV,AGE GDLN Raghavendra Christina DO Work Phone: Start: 01-10-2024 Microscopic observat ion [Identifier] in Cervix by Cyto stain Raghavendra Christina DO Work Phone: Start: 11-28-2023 ALL CBC WITH AUTO DIFF Raghavendra Germin8 DO Work Phone: Start: 11-28-2023 Urnls dip stick/tabl et rgnt non-auto w/o micrscp Raghavendra Christina DO Work Phone: Start: 11-01-2023 End: 11-01-2023 Urnls dip stick/tablet rgnt non-auto w/o micrscp [facility] Work Phone: Start: 11-01-2023 Bacteria identified in Urine by Culture Generic External Data Provider Start: 12-18-2022 Cyclic citrullinated peptide antibody Comment on above: Performed By: #### C BC/2A, ESRCRP, CCP, HBC-M, HBSAG, HCV, CA, MG, RHF, URCA #### [facility] [address] [facility] [place] [facility], [address] Plan of Treatment Date Care Activity Detail Author Start: 01-09-2027 Screening for malign ant neoplasm of cervix [facility] Start: 05-06-2024 End: 05-06-2024 Patient encounter procedure [facility] [place] [facility] Start: 04-02-2024 End: 04-02-2024 Patient encounter procedure 04/02/2024 11:00 AM EST Office Visit [facility] [address] [facility] [address] [place] [address] Teresa Ornelas, CHIEF MEDIA OFFICER-MANAGER ENROLLMENT [address] [place] [address] [place] [address] [facility] Start: 03-11-2024 End: 03-11-2024 Patient encounter procedure 03/11/2024 9:40 AM EST Routine [facility] [address] [place] [phone] Raghavendra Vasquez DO [address] [facility] [address] [place], [place] [id number] [facility] Start: 02-13-2024 End: 02-13-2024 Patient encounter procedure 02/13/2024 1:00 PM EST Office Visit [facility] [place] [address] [place] [address] Emerita Warren, RETURNS PROCESSOR [address] [place], [place] [facility] [address] Start: 02-11-2024 End: 02-10-2025 CBC panel - Blood by Automated count CBC Lab Routine Diabetes mellitus screening Expected: 02/11/2024 (Approximate), Expires: 02/10/2025 [facility] Work Phone: Comment on above: Expected: 02/11/2024 (Approximate), Expires: 02/10/2025 Start: 02-11-2024 End: 02-10-2025 Measurement of glucose 1 hour after glucose challenge for glucose tolerance test Glucose tolerance, 1 hour Lab Routine Diabetes mellitus screening Expected: 02/11/2024 (Approximate), Expires: 02/10/2025 [facility] Comment on above: Expected: 02/11/2024 (Approximate), Expires: 02/10/2025 Start: 02-11-2024 End: 02-10-2025 US for US OB SCAN FOR GROWTH Imaging Routine 23 weeks gestation of Diabetes mellitus screening Expected: 02/11/2024 (Approximate), Expires: 02/10/2025 [facility] Comment on above: Expected: 02/11/2024 (Approximate), Expires: 02/10/2025 Start: 02-11-2024 End: 02-11-2024 Patient encounter procedure 02/11/2024 9:40 AM EST Routine [facility] [address] [facility] [place] [phone] Raghavendra Vasquez, DO [address] [facility] [place] [address] [facility] Start: 01-28-2024 End: 01-28-2024 Professional / ancillary services management 01/28/2024 11:00 AM EST Ancillary Procedure [facility] [address] [place] [phone] [facility] Start: 01-10-2024 End: 07-09-2024 [...] AM EST Routine [facility] [address] [place] [address] Raghavendra Vasquez, DO [address] [place] [address] [facility] Start: 01-01-2024 End: 01-01-2024 Patient encounter procedure 01/01/2024 11:30 AM EST Office Visit [facility] [address] [facility] [place] [phone] Teresa Ornelas, [facility] [address] [facility] [address] [place] [address] [facility] Start: 12-18-2023 End: 12-18-2023 Patient encounter procedure 12/18/2023 5:30 PM EDT Office Visit [facility] [place] [address] [place] [phone] Evonne Childress, DO [address] [place] [address] [facility] [place] [address] [facility] Start: 11-28-2023 End: 11-28-2023 Patient encounter procedure 11/28/2023 2:20 PM EDT Routine [facility] [address] [facility] [place] [address] Raghavendra Vasquez, DO [address] [place], [place] [id number] [facility] Start: 11-27-2023 End: 11-27-2023 Patient encounter procedure 11/27/2023 11:00 AM EDT Office Visit [facility] [address] [facility] [address] [place] [address] Teresa Ornelas, [facility] [address] [facility] [address] [place] [address] [facility] Start: 11-01-2023 End: 10-31-2024 ABO/Rh ABO/Rh Lab Routine Missed menses Expected: 11/01/2023 (Approximate), Expires: 10/31/2024 [facility] Comment on above: Expected: 11/01/2023 (Approximate), Expires: 10/31/2024 Start: 11-01-2023 End: 11-01-2023 ambulatory 11/01/2023 2:00 PM EDT Initial [facility] [address] [place] [address] [facility] Start: 11-01-2023 End: 10-31-2024 Blood type and Indirect antibody screen panel - Blood Type and screen Lab Routine Missed menses Expected: 11/01/2023 (Approximate), Expires: 10/31/2024 [facility] Work Phone: Comment on above: Expected: 11/01/2023 (Approximate), Expires: 10/31/2024 Start: 11-01-2023 End: 10-31-2024 US Pelvis transvaginal US OB transvaginal Imaging Routine Missed menses Expected: 11/01/2023 (Approximate), Expires: 10/31/2024 [facility] Comment on above: Expected: 11/01/2023 (Approximate), Expires: 10/31/2024 Start: 11-01-2023 End: 11-01-2023 Professional / ancillary services management 11/01/2023 1:30 PM EDT Ancillary Procedure [facility] [address] [place] [address] [place] [address] [facility] Start: 10-28-2023 Influenza vaccination Influenza Vacc ine (#1) [facility] Start: 10-18-2023 End: 10-18-2023 Patient encounter procedure 10/18/2023 11:40 AM EDT Office Visit [facility] [address] [place] [phone] Ysabel Cabral MD [address] [place], [place] [id number] [facility] Start: 10-18-2023 End: 10-18-2023 Patient encounter procedure 10/18/2023 10:30 AM EDT [facility] [address] [facility] [address] [place] [address] Evonne Childress DO [address] [place], [place] [id number] [facility] Comment on above: Arrived Start: 09-10-2017 Screening for malign ant neoplasm of cervix [facility] Start: 09-10-2008 Screening for malign ant neoplasm of cervix Pap Smear [facility] Bacteria identified in Urine by Culture Urine culture Microbiology Routine Missed menses Ordered: 11/01/2023 [facility] Comment on above: Ordered: 11/01/2023 CBC W Auto Different ial panel - Blood CBC and differential Lab Routine Missed menses Ordered: 11/01/2023 [facility] Comment on above: Ordered: 11/01/2023 CHLAMYDIA TRACHOMATI S (GENITO/STI) CHLAMYDIA TRACHOMATIS (GENITO/STI) Lab Routine STD exposure Ordered: 01/10/2024 [facility] Comment on above: Ordered: 01/10/2024 Cytology Cervical or vaginal smear or scraping study Pap Smear Pathology and Cytology Routine Well woman exam with routine gynecological exam Ordered: 01/10/2024 [facility] Comment on above: Ordered: 01/10/2024 Hemoglobin A1c/Hemoglobin.total in Blood Hemoglobin A1c Lab Routine Missed menses Ordered: 11/01/2023 [facility] Comment on above: Ordered: 11/01/2023 Hepatitis B virus surface Ag [Presence] in Serum or Plasma by Immunoassay Hepatitis B surface antigen Lab Routine Missed menses Ordered: 11/01/2023 [facility] Comment on above: Ordered: 11/01/2023 Hepatitis C virus Ab [Presence] in Serum or Plasma by Immunoassay Hepatitis C antibody Lab Routine Missed menses Ordered: 11/01/2023 [facility] Comment on above: Ordered: 11/01/2023 HIV-1/HIV-2 antigen/antibody combination immunoassay HIV-1 and HIV-2 antibodies Lab Routine Missed menses Ordered: 11/01/2023 [facility] Comment on above: Ordered: 11/01/2023 Human papilloma viru s DNA [Presence] in Unspecified specimen by Probe with amplification HPV DNA probe, amplified Microbiology Routine Well woman exam with routine gynecological exam Ordered: 01/10/2024 [facility] Comment on above: Ordered: 01/10/2024 Neisseria gonorrhoea e DNA [Presence] in Unspecified specimen by ERIC with probe detection Neisseria gonorrhea DNA probe, direct Lab Routine STD exposure Ordered: 01/10/2024 [facility] Comment on above: Ordered: 01/10/2024 Reagin Ab [Presence] in Serum by RPR RPR Lab Routine Missed menses Ordered: 11/01/2023 [facility] Comment on above: Ordered: 11/01/2023 Rubella antibody, IgG Rubella an tibody, IgG Lab Routine Missed menses Ordered: 11/01/2023 [facility] Comment on above: Ordered: 11/01/2023 SURESWAB(R) ADVANCED VAGINITIS PLUS, TMA SURESWAB(R) ADVANCED VAGINITIS PLUS, TMA Pathology and Cytology Routine Vaginal discharge Ordered: 01/10/2024 [facility] Work Phone: Comment on above: Ordered: 01/10/2024 Immunizations Immunization Date Immunization Notes Care Provider Corrina granadosearnest 05-11-2021 COVID-19 En Segundoекатерина Other [facility] Other 10-02-2016 influenza, injectabl e, quadrivalent, preservative free Evonne Jaydon DO Work Phone: [facility] 10-02-2016 influenza virus vaccine, unspecified formulation Evonne Jaydon DO Work Phone: [facility] 10-13-2015 influenza, injectabl e, quadrivalent, preservative free Evonne Jaydon DO Work Phone: [facility] 12-02-2014 influenza, seasonal, injectable, preservative free Evonne Jaydon DO Work Phone: [facility] Payers Date Payer Category Payer Medicaid [employer] [place] [id number] 2021-Present [address] [place] [phone] [id number] 2021 Medicaid (Managed Care) [facility] MEDICAID [id number] 1987 Unknown [id number] 2.16.840.1.405428.3.579.2. 593 1987 Unknown [id number] 2.16.840.1.253668.3.579.2. 593 1987 Unknown [id number] 2.16.840.1.375829.3.579.2. 59 1987 Unknown [id number] 2.16.840.1.370521.3.579.2. 1258 1987 Unknown [id number] 2.16.840.1.694052.3.579.2. 1258 1987 Unknown [id number] 2.16.840.1.246792.3.579.2. 1258 1987 Unknown [id number] 2.16.840.1.041274.3.579.2. 1258 1987 Unknown [id number] 2.16.840.1.699579.3.579.2. 1258 1987 Unknown [id number] 2.16.840.1.645854.3.579.2. 1258 1987 Unknown [id number] 2.16.840.1.516706.3.579.2. 1258 1987 Unknown [id number] 2.16.840.1.974851.3.579.2. 1258 1987 Unknown [id number] 2.16.840.1.760817.3.579.2. 1258 1987 Unknown [id number] 2.16.840.1.837580.3.579.2. 1258 1987 Unknown [id number] 2.16.840.1.637070.3.579.2. 1258 1987 Unknown [id number] 2.16.840.1.267962.3.579.2. 9 1987 Unknown [id number] 2.16.840.1.343835.3.579.2. 1258 1987 Unknown [id number] 2.16.840.1.931164.3.579.2. 1258 1987 Unknown [id number] 2.16.840.1.121233.3.579.2. 1258 1987 Unknown [id number] 2.16.840.1.840228.3.579.2. 1258 1987 Unknown [id number] 2.16.840.1.008675.3.579.2. 1258 1987 Unknown [id number] 2.16.840.1.302910.3.579.2. 1258 1987 Unknown [id number] 2.16.840.1.970551.3.579.2. 1258 1987 Unknown [id number] 2.16.840.1.435347.3.579.2. 1258 1987 Unknown [id number] 2.16.840.1.158867.3.579.2. 9 1959 Unknown [id number] 2.16.840.1.043128.19 Social History Date Type Detail Facility Unknown if ever smoked [facility] Other Start: 2022 End: 01-01-2024 Sex Assigned At [facility] Other Start: 12-22-2022 Tobacco smoking stat [facility] Never smoked tobacco [facility] Start: [...] Start: 2022 Alcohol Comment cup coffee day [facility] Start: 09-15-2023 [facility] Start: 1985 Sex assigned at Not on file N [facility] Start: 01-01-2024 End: 02-13-2024 Alcoholic beverage intake Ex-drinker (finding) [facility] Start: 01-01-2024 Alcohol Comment I have a glass of wine or 2 glasses each evening with dinner [facility] Clinical Notes 05-11-2021 to 02-11-2024 Shelli Lundberg, [facility] - 02/11/2024 9:40 AM Mihir Malave, [facility] - 01/10/2024 10:10 AM America Ornelas, [facility] - 01/01/2024 11:30 AM Christine Lundberg, [facility] - 11/28/2023 2:20 PM EDT Note Date [...] Attention deficit hyperactivity disorder (ADHD), combined type ([facility]) 07/04/2022 Episodic mood disorder ([facility]) 07/04/2022 Generalized anxiety disorder ([facility]) 07/04/2022 Panic disorder ([facility]) 07/04/2022 Acquired scoliosis 09/09/2016 Allergic rhinitis 10/16/2019 Anxiety 01/31/2020 Asthma ([facility]) 12/31/2014 Chronic fatigue syndrome 07/03/2016 Chronic gastritis without bleeding 12/28/2022 Irritable bowel syndrome 07/03/2016 Migraine without aura and without status migrainosus, not intractable ([facility]) 09/19/2017 Mild intermittent asthma ([facility]) 02/28/2021 Primary localized osteoarthrosis of ankle and foot 03/13/2019 Vitamin D deficiency 12/28/2022 Headache 06/28/2023 Inadequate sleep hygiene 06/28/2023 Migraine ([facility]) 06/28/2023 Tenosynovitis of foot 06/28/2023 Nausea and vomiting 06/28/2023 Common migraine with intractable migraine ([facility]) 06/28/2023 Pain in limb 06/28/2023 Chronic tension-type headache, not intractable 06/28/2023 Sleep disturbance 06/28/2023 Insomnia, unspecified 06/28/2023 Other problems related to lifestyle 06/28/2023 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 08/10/2023 Resolved Ambulatory Problems Diagnosis Date Noted No Resolved Ambulatory Problems Past Medical History: Diagnosis Date Adenoma of left breast ADHD (attention deficit hyperactivity disorder) ([facility]) Anemia Back pain Common migraine ([facility]) 08/17/2015 Depression ([facility]) H/O colonoscopy H/O umbilical hernia repair Insomnia 06/25/2017 Migraines ([facility]) Nausea with vomiting 08/17/2015 Tendonitis of right hand Tension headache 08/17/2015 HISTORY PAST MEDICAL HISTORY SOCIAL HISTORY Past Medical History: Diagnosis Date Adenoma of left breast removed 2013 ADHD (attention deficit hyperactivity disorder) ([facility]) Anemia Anxiety Asthma ([facility]) Back pain Common migraine ([facility]) 08/17/2015 Depression ([facility]) H/O colonoscopy 2012 H/O umbilical hernia repair 2008 Headache 08/17/2015 Inadequate sleep hygiene 04/23/2018 Insomnia 06/25/2017 Migraine (CMS/HCC) 03/22/2017 Migraines ([facility]) Nausea with vomiting 08/17/2015 Pain in limb [...] arthritis Father Amandeep Matson Depression Father Amandeep Matsno Alcohol abuse Father Amandeep Matson Stroke Father [...] nursing note reviewed. Exam conducted with a computer repairer present. Vitals: Estimated body mass index is [...] Raghavendra Vasquez DO documented in this encounter [facility] 01-10-2024 History of Present illness Narrative Reason [...] Attention deficit hyperactivity disorder (ADHD), combined type ([facility]) 07/04/2022 Episodic mood disorder ([facility]) 07/04/2022 Generalized anxiety disorder ([facility]) 07/04/2022 Panic disorder ([facility]) 07/04/2022 Acquired scoliosis 09/09/2016 Allergic rhinitis 10/16/2019 Anxiety 01/31/2020 Asthma ([facility]) 12/31/2014 Chronic fatigue syndrome 07/03/2016 Chronic gastritis without bleeding 12/28/2022 Irritable bowel syndrome 07/03/2016 Migraine without aura and without status migrainosus, not intractable ([facility]) 09/19/2017 Mild intermittent asthma ([facility]) 02/28/2021 Primary localized osteoarthrosis of ankle and foot 03/13/2019 Vitamin D deficiency 12/28/2022 Headache 06/28/2023 Inadequate sleep hygiene 06/28/2023 Migraine ([facility]) 06/28/2023 Tenosynovitis of foot 06/28/2023 Nausea and vomiting 06/28/2023 Common migraine with intractable migraine ([facility]) 06/28/2023 Pain in limb 06/28/2023 Chronic tension-type headache, not intractable 06/28/2023 Sleep disturbance 06/28/2023 Insomnia, unspecified 06/28/2023 Other problems related to lifestyle 06/28/2023 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 08/10/2023 Resolved Ambulatory Problems Diagnosis Date Noted No Resolved Ambulatory Problems Past Medical History: Diagnosis Date Adenoma of left breast ADHD (attention deficit hyperactivity disorder) ([facility]) Anemia Back pain Common migraine ([facility]) 08/17/2015 Depression ([facility]) H/O colonoscopy H/O umbilical hernia repair Insomnia 06/25/2017 Migraines ([facility]) Nausea with vomiting 08/17/2015 Tendonitis of right hand Tension headache 08/17/2015 HISTORY PAST MEDICAL HISTORY SOCIAL HISTORY Past Medical History: Diagnosis Date Adenoma of left breast removed 2013 ADHD (attention deficit hyperactivity disorder) ([facility]) Anemia Anxiety Asthma ([facility]) Back pain Common migraine (CMS/HCC) 08/17/2015 Depression (CMS/HCC) H/O colonoscopy 2012 H/O umbilical hernia repair 2008 Headache 08/17/2015 Inadequate sleep hygiene 04/23/2018 Insomnia 06/25/2017 Migraine (CMS/HCC) 03/22/2017 Migraines ([facility]) Nausea with vomiting 08/17/2015 Pain in limb [...] nursing note reviewed. Exam conducted with a computer repairer present. Vitals: Estimated body mass index is [...] obtained without difficulty and patient was given [facility] order to have obtained. Sent Omeprazole to [...] Raghavendra Vasquez DO documented in this encounter [facility] 01-01-2024 History of Present illness Narrative [...] visit. 20 weeks. 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 Psychosocial stressors include . SUBJECTIVE: PAST MEDICAL HISTORY: Past Medical History: Diagnosis Date Adenoma of left breast removed 2013 ADHD (attention deficit hyperactivity disorder) ([facility]) Anemia Anxiety Asthma ([facility]) Back pain Common migraine ([facility]) 08/17/2015 Depression ([facility]) H/O colonoscopy 2012 H/O umbilical hernia repair 2007 Headache 08/17/2015 Inadequate sleep hygiene 04/23/2018 Insomnia 06/25/2017 Migraine (CMS/HCC) 03/22/2017 Migraines ([facility]) Nausea with vomiting 08/17/2015 Pain in limb [...] and Time Memory/Concentration Short term intact and intermission coordinator intact Insight/Judgement Fair OBJECTIVE: Visit Vitals LMP [...] Visit time :32min documented in this encounter [facility] 11-28-2023 History of Present illness Narrative Reason [...] Attention deficit hyperactivity disorder (ADHD), combined type ([facility]) 07/04/2022 Episodic mood disorder ([facility]) 07/04/2022 Generalized anxiety disorder ([facility]) 07/04/2022 Panic disorder ([facility]) 07/04/2022 Acquired scoliosis 09/09/2016 Allergic rhinitis 10/16/2019 Anxiety 01/31/2020 Asthma ([facility]) 12/31/2014 Chronic fatigue syndrome 07/03/2016 Chronic gastritis without bleeding 12/28/2022 Irritable bowel syndrome 07/03/2016 Migraine without aura and without status migrainosus, not intractable ([facility]) 09/19/2017 Mild intermittent asthma ([facility]) 02/28/2021 Primary localized osteoarthrosis of ankle and foot 03/13/2019 Vitamin D deficiency 12/28/2022 Headache 06/28/2023 Inadequate sleep hygiene 06/28/2023 Migraine (CMS/HCC) 06/28/2023 Tenosynovitis of foot 06/28/2023 Nausea and [...] left breast ADHD (attention deficit hyperactivity disorder) ([facility]) Anemia Back pain Common migraine ([facility]) 08/17/2015 Depression ([facility]) H/O colonoscopy H/O umbilical hernia repair Insomnia 06/25/2017 Migraines ([facility]) Nausea with vomiting 08/17/2015 Tendonitis of right hand Tension headache 08/17/2015 HISTORY PAST MEDICAL HISTORY SOCIAL HISTORY Past Medical History: Diagnosis Date Adenoma of left breast removed 2013 ADHD (attention deficit hyperactivity disorder) ([facility]) Anemia Anxiety Asthma ([facility]) Back pain Common migraine ([facility]/HCC) 08/17/2015 Depression ([facility]) H/O colonoscopy 2012 H/O umbilical hernia repair 2008 Headache 08/17/2015 Inadequate sleep hygiene 04/23/2018 Insomnia 06/25/2017 Migraine (CMS/HCC) 03/22/2017 Migraines ([facility]) Nausea with vomiting 08/17/2015 Pain in limb [...] nursing note reviewed. Exam conducted with a computer repairer present. Vitals: Estimated body mass index is [...] or undercooked meat, and [facility]. Patient has been consulted regarding any further [...] Raghavendra Vasquez DO documented in this encounter [facility] 11-27-2023 History of Present illness Narrative [...] work done. 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 Psychosocial stressors include . SUBJECTIVE: PAST MEDICAL [...] and Time Memory/Concentration Short term intact and fpc intact Insight/Judgement Good OBJECTIVE: Visit Vitals LMP [...] F/U 6 weeks documented in this encounter [facility] 11-01-2023 History of Present illness Narrative Reason [...] the following prescription(s): albuterol hfa, albuterol hfa, sxprogbxns-xptcrfayplpuq-zvpazcvc , cyanocobalamin, d3-1000, dicyclomine, fluticasone, onabotulinumtoxina, ondansetron, promethazine, sertraline, and tizanidine. Medical History: Active Ambulatory Problems Diagnosis Date Noted Attention deficit hyperactivity disorder (ADHD), combined type (CMS/HCC) 07/04/2022 Episodic mood disorder (CMS/HCC) 07/04/2022 Generalized anxiety disorder ([facility]) 07/04/2022 Panic disorder ([facility]) 07/04/2022 Acquired scoliosis 09/09/2016 Allergic rhinitis 10/16/2019 Anxiety 01/31/2020 Asthma ([facility]) 12/31/2014 Chronic fatigue syndrome 07/03/2016 Chronic gastritis without bleeding 12/28/2022 Irritable bowel syndrome 07/03/2016 Migraine without aura and without status migrainosus, not intractable ([facility]) 09/19/2017 Mild intermittent asthma ([facility]) 02/28/2021 Primary localized osteoarthrosis of ankle and foot 03/13/2019 Vitamin D deficiency 12/28/2022 Headache 06/28/2023 Inadequate sleep hygiene 06/28/2023 Migraine ([facility]) 06/28/2023 Tenosynovitis of foot 06/28/2023 Nausea and vomiting 06/28/2023 Common migraine with intractable migraine ([facility]) 06/28/2023 Pain in limb 06/28/2023 Chronic tension-type headache, not intractable 06/28/2023 Sleep disturbance 06/28/2023 Insomnia, unspecified 06/28/2023 Other problems related to lifestyle 06/28/2023 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 08/10/2023 Resolved Ambulatory Problems Diagnosis Date Noted No Resolved Ambulatory Problems Past Medical History: Diagnosis Date Adenoma of left breast ADHD (attention deficit hyperactivity disorder) ([facility]) Anemia Back pain Common migraine ([facility]) 08/17/2015 Depression ([facility]) H/O colonoscopy H/O umbilical hernia repair Insomnia 06/25/2017 Migraines ([facility]) Nausea with vomiting 08/17/2015 Tendonitis of right [...] pt to schedule US w/tbh. Pt desired [place] 21 advised pt to wait until 10 wks and have both unity and labs done at the same time. Pt verbally understood. Follow Up: Patient is to have labs drawn at directed and return to office for initial OB appointment with provider. Patient may call office as needed with any concerns or questions. Nurse Visit Completed by: An Duffy MA documented in this encounter [facility] 10-19-2023 Telephone encounter Note Pt needs a letter stating that she was seen in office on 10/17 Please Fax to [phone] [facility] 10-19-2023 Miscellaneous Notes Pt needs a letter stating that she was seen in office on 10/17 Please Fax to [phone] documented in this encounter [facility] 10-18-2023 History of Present illness Narrative Tiki [...] 2 puffs, Inhalation, Every 4 hours PRN tcqvsbjljm-cyhqjddfegejd-tbhowfaj 50-325-40 MG tablet TAKE 1 TABLET BY [...] for further guidance. documented in this encounter [facility] 10-18-2023 History of Present illness Narrative Images from the original note were not included. Subjective Tiki Matson is a 38 y.o. female. Patient was to be seen for botox injections but she just found out that she is . She was not planning but not preventing . She still has to see her second crusher. She has been receiving the Botox injections [...] during those pregnancies. 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 Objective Neurological Exam Physical Exam No chief complaint on file. Subjective Tiki Matson, 38 y.o., female HPI Past Medical History: Diagnosis Date Adenoma of left breast removed 2013 ADHD (attention deficit hyperactivity disorder) ([facility]) Anemia Anxiety Asthma ([facility]) Back pain Common migraine (CMS/HCC) 08/17/2015 Depression ([facility]) H/O colonoscopy 2012 H/O umbilical hernia repair 2007 Headache 08/17/2015 Inadequate sleep hygiene 04/23/2018 Insomnia 06/25/2017 Migraine (CMS/HCC) 03/22/2017 Migraines ([facility]) Nausea with vomiting 08/17/2015 Pain in limb 08/20/2014 Sleep disturbance 11/30/2016 Tendonitis of right hand Tenosynovitis of foot 08/20/2014 Tension headache 08/17/2015 Vitamin D deficiency Past Surgical History: Procedure Laterality Date BREAST SURGERY Left 12/2013 adenoma removed left breast COLONOSCOPY 06/25/2017 COLPOSCOPY 2012 LEG SURGERY 09/2014 tibial and fibular sesmoid [...] Return to clinic: documented in this encounter [facility] 08-03-2021 Note FINDINGS: Sonographic evaluation targeted to the painful palpable areas within the right breast. Multiple subcentimeter benign simple cysts within the right upper quadrant. Mild periareolar ductal dilatation (3-4 mm diameter). No suspicious solid nodule or mass. IMPRESSION: BI RADS 2 : BENIGN FINDINGS Report reported and signed by Alexei Smith on 08/03/2021 [id number] [facility] It Help Desk Technician 05-11-2021 Evaluation note Encounter Date Diagnosis Assessment Notes Apr, Encounter for immunization (ICD-10 - Z23) Patient presents for COVID-19 vaccination #2. Pre-screening form answers evaluated with patient. Patient denies current illness or allergic reaction to component of COVID-19 vaccine. Patient provided with current copy of EUA. [facility] Other Evaluation note* Diagnosis Attention deficit hyperactivity disorder (ADHD), combined type (CMS/HCC) Generalized anxiety disorder (CMS/HCC) Generalized anxiety disorder documented in this encounter [facility] HealthcareEvaluation note* Diagnosis First trimester state, incidental documented in this encounter [facility] HealthcareEvaluation note* Diagnosis 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)- Primary Generalized anxiety disorder (CMS/HCC) Generalized anxiety disorder Primary insomnia Persistent disorder of initiating or maintaining sleep , unspecified gestational age documented in this encounter [facility] HealthcareEvaluation note* Diagnosis Generalized anxiety disorder (CMS/HCC)- Primary Generalized anxiety disorder documented in this encounter [facility] HealthcareEvaluation note* Diagnosis Well woman exam with routine gynecological exam Routine gynecological examination Second trimester state, incidental 18 weeks gestation of Vaginal discharge Leukorrhea, not specified as infective STD exposure Screening, , for anatomic survey Encounter for anatomic survey Gastroesophageal reflux in documented in this encounter [facility] HealthcareEvaluation note* Diagnosis 23 weeks gestation of [...] Surgical History tibial and fibular sesmoid 10-15 [facility] Other Summary Purpose Family History No Family History Records FoundNo Family History Records FoundNo Family History Records FoundNo Family History Records FoundNo Family History Records Found Advance Directives No Advanced Directives Records FoundNo Advanced Directives Records FoundNo Advanced Directives Records FoundNo Advanced Directives Records FoundNo Advanced Directives Records Found Additional Source Comments INFORMATION SOURCE (unrecogn ized section and content) DATE CREATED AUTHOR 05/25/2021 [facility] DATE CREATED AUTHOR AUTHOR'S ORGANIZ ATION 08/04/2021 [facility] Me dical Specialist DATE CREATED AUTHOR AUTHOR'S ORGANIZ ATION 11/23/2021 [facility] DATE CREATED AUTHOR AUTHOR'S ORGANIZ ATION 12/19/2022 [facility] DATE CREATED AUTHOR AUTHOR'S ORGANIZ ATION 02/16/2024 [facility] dical Specialists EPIC REASON FOR VISIT (unrecogniz ed section and content) Reason Comments Routine Visit Reason Comments Med Management Follow-up Reason Comments Well Women Visit Routine Visit STI Screening Reason Comments Nausea/Vomiting In Reason Comments Amenorrhea Reason Comments Migraine Care Teams (unrecognized sec tion and content) 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 Relationship Specialty Start Date End Date Ysabel Cabral MD [address] [place] [address] PCP - General Family Medicine 07/29/22 Ale Zaldivar MD [address] [place] [address] PCP - [facility] 05/28/23 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 Relationship Specialty Start Date End Date Ysabel Cabral MD [address] [place] [address] PCP - General Family Medicine 07/29/22 Ale Zaldivar MD [address] [place] [address] PCP - [facility] 05/28/23 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 Relationship Specialty Start Date End Date Ysabel Cabral MD [address] [place] [address] PCP - [facility] 07/29/22 Ale Zaldivar MD [address] [place] [address] PCP - [facility] 05/28/23 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 Relationship Specialty Start Date End Date Ysabel Cabral MD [address] [place] [address] PCP - [facility] 07/29/22 Ale Zaldivar MD [address] [place] [address] PCP - [facility] 05/28/23 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 Relationship Specialty Start Date End Date Ysabel Cabral MD [address] [place] [address] PCP - General Family Medicine 07/29/22 Ale Zaldivar MD [address] [place] [address] PCP - [facility] 05/28/23 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 Relationship Specialty Start Date End Date Ysabel Cabral MD [address] [place] [address] PCP - General Family Medicine 07/29/22 Ale Zaldivar MD [address] [place] [address] PCP - [facility] 05/28/23 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 Relationship Specialty Start Date End Date Ysabel Cabral MD [address] [place] [address] PCP - General Family Medicine 07/29/22 Chloe Carvajal NP [address] [place] [address] PCP - [facility] 11/27/23 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 Relationship Specialty Start Date End Date Ysabel Cabral MD [address] [place] [address] PCP - General Family Medicine 07/29/22 Chloe Carvajal NP [address] [place] [address] PCP - [facility] 11/27/23 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 Relationship Specialty Start Date End Date Ysabel Cabral MD [address] [place] [address] PCP - General Family Medicine 07/29/22 Chloe Carvajal, RETURNS PROCESSOR [address] [place] [address] PCP - [facility] 11/27/23 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 Relationship Specialty Start Date End Date Ysabel Cabral MD [address] [place] [address] PCP - General Family Medicine 07/29/22 Chloe Carvajal RETURNS PROCESSOR PCP - [facility] 11/27/23 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 Relationship Specialty Start Date End Date Ysabel Cabral MD [address] [place] [address] PCP - General Family Medicine 07/29/22 Chloe Carvajal RETURNS PROCESSOR PCP - [facility] 11/27/23 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 Relationship Specialty Start Date End Date Ysabel Cabral MD [address] [place] [address] PCP - General Family Medicine 07/29/22 Ale Zaldivar MD [address] [place] [address] PCP - [facility] 05/28/23 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 Relationship Specialty Start Date End Date Ysabel Cabral MD [address] [place] [address] PCP - General Family Medicine 07/29/22 Ale Zaldivar MD [address] [place] [address] PCP - [facility] 05/28/23 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 Relationship Specialty Start Date End Date Ysabel Cabral MD [address] [place] [address] PCP - General Family Medicine 07/29/22 Ale Zaldivar MD [address] [place] [address] PCP - [facility] 05/28/23 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 Relationship Specialty Start Date End Date Ysabel Cabral MD [address] [place] [address] PCP - General Family Medicine 07/29/22 Chloe Carvajal RETURNS PROCESSOR PCP - [facility] 11/27/23 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 Relationship Specialty Start Date End Date Ysabel Cabral MD [address] [place] [address] PCP - General Family [facility] 07/29/22 Ale Zaldivar MD [address] [place] [address] PCP - [facility] 05/28/23 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 Relationship Specialty Start Date End Date Ysabel Cabral MD [address] [place] [address] PCP - General Family Medicine 07/29/22 Ale Zaldivar MD [address] [place] [address] PCP - [facility] 05/28/23 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 Relationship Specialty Start Date End Date Ysabel Cabral MD [address] [place] [address] PCP - General Family [facility] 07/29/22 Chloe Carvajal NP [facility] 11/27/23 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 Relationship Specialty Start Date End Date Ysabel Cabral MD [address] [facility] [place] [address] PCP - [facility] 07/29/22 Chloe Carvajal NP [facility] - [facility] 11/27/23 FOR RECORDS PERTAINING TO PATIENTS [...] BE BASED ON THE PRIMARY CLINICAL RECORDS. [facility]. provides no warranty or guarantee of the accuracy or completeness of information in this document.
[2024-03-10 12:55] LABS: Basophils Percent Auto 0.2 % (0.2-2.0); Eosinophils Absolute Auto 0.1 10^3/uL (0.0-0.7); Eosinophils Percent Auto 0.6 % (0.9-7.0); Hematocrit 32.2 % (36.0-48.0); Hemoglobin 10.3 g/dL (12.0-16.0); Immature Granulocytes Abs Auto 0.06 10^3/uL (0.00-0.03); Immature Granulocytes Pct Auto 0.6 % (0.0-0.5); Lymphocytes Absolute Auto 1.8 10^3/uL (1.2-3.8); Lymphocytes Percent Auto 19.1 % (20.5-60.0); Mean Corpuscular Hemoglobin 25.9 pg (26.7-34.0); Mean Corpuscular Volume 81.1 fL (81.0-99.0); Mean Platelet Volume 10.7 fL (9.5-13.5); Monocytes Absolute Auto 0.5 10^3/uL (0.3-0.8); Monocytes Percent Auto 5.5 % (1.7-12.0); Platelet Count 238 10^3/uL (150-450); Red Blood Count 3.97 10^6/uL (4.20-5.40); White Blood Count 9.4 10^3/uL (4.0-11.0)
[2024-03-10 14:01] LABS: Glucose 1 Hour 129 mg/dL (<130)
[2024-03-12 23:07] LABS: AFP Value 316.9 ng/mL (.); Gest. Age on Collection Date 23.3 weeks (.); Insulin Dep Diabetes No (.); Maternal Age At EDD 36.8 yr (.); OSBR Risk 1 IN 111 (.); Results Report (.)
== END 2024-03-10 11:10 | disposition home or self-care (01) ==
LOC: LAB 11:12
PROVIDERS: PCP Family Medicine; Visit Provider Obstetrics & Gynecology
DX: Z34.92 Encounter for supervision of normal pregnancy, unspecified, second trimester (principal)
CPT/HCPCS: 36415; 82105; 82950; 85025

== ENCOUNTER 2024-03-25 10:49 | Outpatient (OUT) | payer OTHER, SELFPAY ==
--- OUTSIDE RECORDS SUMMARY | 2024-03-25 10:53 | XMS_ITS | CCD ---
Author Organization [facility] Care Team Providers Care Brick Picker Name Role Phone Vicky Joe Unavailable WEST, DR SANON Admitting Unavailable KARASIK, DR SANON Attending Unavailable KARASIK, DR SANON Consulting Unavailable KARASIK, DR SANON Attending Unavailable KARASIK, DR SANON Consulting Unavailable JOSEK, DR SANON Admitting Unavailable CHLOE CARVAJAL Attending Unavailable CHLOE CARVAJAL Consulting Unavailable CHLOE CARVAJAL Admitting Unavailable Ysabel Cabral MD Primary Care Provider [phone] Ale Zaldivar MD Unavailable [phone] Dillon HIRED HAND, Chloe Swift Unavailable Dillon HIRED HAND, Chloe Swift Unavailable TERESA ORNELAS Attending Unavailab [...] VASQUEZ Attending Unavailable EMERITA WARREN Attending Unavailable RAGHAVENDRA VASQUEZ Attending Unavailable Allergies Allergy Classification Reported Allergen(s) Allergy Type Date of Onset Reaction(s) Facility (1 source) Aspirin Drug Allergy shortness of breath [facility] Other (20 sources) Diclofenac Drug Allergy 07-05-19 23 Unknown [facility] Other (20 sources) Ibuprofen Drug Allergy 07-05-19 23 Unknown [facility] Other (20 sources) Naproxen Drug Allergy 07-05-19 23 Unknown [facility] Other (20 sources) NSAIDs Drug allergy 07-05-19 Unknown [facility] Other (1 source) Aspirin Drug Allergy 02-26-18 90 [facility] Repository (1 source) cyclobenzaprine Drug Allergy 01-10-20 15 [facility] Repository (1 source) Diclofenac Drug Allergy 01-10-20 15 [facility] Repository (1 source) Ibuprofen Drug Allergy 08-04-19 16 [facility] Repository (1 source) NSAIDs Drug allergy (disorder) 01-02-20 14 [facility] Repository (20 sources) Aluminum aspirin Drug Allergy 07-05-19 23 [facility] (20 sources) Amitriptyline Drug Allergy 03-22-19 18 [facility] (20 sources) cyclobenzaprine Drug Allergy 01-24-20 16 [facility] (20 sources) Lamotrigine Allergy to substance 07-05-19 23 [facility] (20 sources) meloxicam Drug Allergy 07-05-19 23 Unknown [facility] (18 sources) Sertraline Drug Allergy 01-01-20 24 [facility] Medications Current Medications Medication Drug Class(es) [...] Active cyclobenzaprine hydrochloride 5 mg oral tablet (8 sources) Muscle Relaxant Start: 02-11-2024 take 0.5-1 tablets by mouth once at bedtime cyclobenzaprine (Flexeril) 5 MG tablet Indications: 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) 1/2-1 po q hs 30 tablet 2 02/11/2024 Active ethinyl estradiol 0.03 mg / norethindrone acetate 1.5 mg oral tablet (1 source) Estrogen take 1 tablet by mouth every twenty-four hours June 1.530 1.5-30 MG-MCG 1 tablet Orally Once a day Active Fish Oils (1 source) take 1 capsule by mouth once daily Fish Oil 1000 MG 1 capsule Orally Once a day Active fluticasone propionate 0.05 mg/actuat metered dose nasal spray (20 sources) Corticosteroid End: 03-11-2024 take 1 spray(s) nasal route in the morning fluticasone (Flonase) 50 MCG/ACT nasal spray Administer 1 spray into affected nostril(s) in the morning. 03/11/2024 Discontinued take 1 spray(s) nasal route once daily Flonase 50 MCG/DOSE 1 spray in each nostril Nasally Once a day Active lidocaine 0.05 mg/mg topical ointment (1 source) Antiarrhythmic, Amide Local Anesthetic Lidocaine 5 % 1 application to affected area as needed Externally Three times a day Active Magnesium (8 sources) Start: End: 4 take 1 tablet by mouth [...] Active magnesium oxide 400 mg oral tablet (5 sources) Start: 02-13-2024 End: 02-12-2025 take 1 tablet by mouth once daily magnesium oxide (Mag-Ox) 400 MG tablet Indications: Other migraine without status migrainosus, not intractable (CMS/HCC) Take 1 tablet (400 mg) by mouth Daily 30 tablet 11 02/13/2024 03/11/2024 Discontinued montelukast 5 mg chewable tablet (1 source) [...] omeprazole 20 mg delayed release oral capsule (16 sources) Proton Pump Inhibitor Start: 01-10-2024 End: 02-09-2024 take 1 capsule by mouth before mealtime omeprazole (PriLOSEC) [address] capsule Indications: Gastroesophageal Reflux Disease , Heartburn Take 1 capsule (20 mg) by mouth in the morning. Take before meals. Do not crush or chew.. 30 capsule 3 01/10/2024 Active take 1 capsule by mo ut [...] tablet (1 source) Proton Pump Inhibitor Start: 017 take 1 tablet by mouth every twenty-four hours Pantoprazole Sodium 40 mg 1 tablet Orally Once a day for 30 days Jul, Active polysaccharide iron complex 391 mg oral capsule (4 sources) Start: 025 End: take 1 capsule by mouth once daily iron polysaccharides (ProFe) 391.3 (180 Fe) MG capsule Indications: Low iron Take 1 capsule (391.3 mg) by mouth Daily 30 capsule 6 03/10/2024 04/09/2024 Active promethazine hydrochloride 12.5 mg oral tablet (20 sources) Phenothiazine Start: 024 End: take 1 tablet by mouth every six [...] needed for nausea. 30 tablet 2 10/22/2023 03/11/2024 Discontinued Promethazine HCl 25 MG 1/2 -1 TABLET [...] 20 tablet 1 09/24/2023 11/28/2023 Discontinued (Other) [id number] 200 actuat albuterol 0.09 mg/actuat metered dose [...] 12-28-2022 Chronic Other and delivery including normal (12 sources) First trimester ; Translations: [Encounter for [...] [23 weeks gestation of ] 02-11-2024 Episodic Residual codes; unclassified (2 sources) Gestation period, 27 weeks; Translations: [27 weeks gestation of ] 03-11-2024 Episodic Unclassified (2 sources) CONTACT W/AND (SUSP) [...] Range Facility Urinalysis macro (dipstick) panel (U)on 03-11-2024 Bilirubin, UA Negative Negative - 4(70) +++ mg/dL [facility] Blood, UA Negative Negative - 50 Armnad/mcL [facility] Clarity, UA Clear [facility] Color, UA Yellow [facility] Glucose, UA Negative Negative - 2000(110) ++++ mg/dL [facility] Interpretation and review of laboratory results Abnormal [facility] Ketones, UA Negative Negative - 160(16) ++++ mg/dL [facility] Leukocytes, UA Negative Negative - 500+++ Doe/mcL [facility] Nitrite, UA Negative Negative - Positive [facility] pH, UA 7 5 - 9 [facility] Protein, UA Positive Negative - 2000(20) ++++ mg/dL [facility] Comment on above: 30 Spec Grav, UA 1.025 1 - 1.03 [facility] Urobilinogen, UA 0.2 0.2 - 12 mg/dL [facility] ALL CBC WITH AUTO DIFFon BASOPHILS ABSOLUTE AUTO 0 [facility] Basophils/100 WBC (Bld) 0.2 % 0.2 - 2.0 % [facility] Eosinophils/100 WBC (Bld) 0.6 % Low 0.9 - 7.0 % [facility] Erythrocyte distribution width (RBC) [Ratio] 13 % 11.0 - 15.0 % [facility] Hematocrit (Bld) [Volume fraction] 32.2 % Low 36.0 - 48.0 % [facility] Hemoglobin (Bld) [Mass/Vol] 10.3 g/dL Low 12.0 - 16.0 g/dL [facility] IMMATURE GRANULOCYTES ABS AUTO 0.06 High [facility] Immature granulocytes/100 WBC (Bld) 0.6 % High 0.0 - 0.5 % [facility] Interpretation and review of laboratory results Abnormal [facility] LYMPHOCYTES ABSOLUTE AUTO 1.8 [facility] Lymphocytes/100 WBC (Bld) 19.1 % Low 20.5 - 60.0 % [facility] MCH (RBC) [Entitic mass] 25.9 pg Low 26.7 - 34.0 pg [facility] MCHC (RBC) [Mass/Vol] 32 g/dL 29.9 - 35.2 g/dL [facility] MCV (RBC) [Entitic vol] 81.1 fL 81.0 - 99.0 fL [facility] MONOCYTES ABSOLUTE AUTO 0.5 [facility] Monocytes/100 WBC (Bld) 5.5 % 1.7 - 12.0 % [facility] NEUTROPHILS ABSOLUTE AUTO 7 High [facility] Neutrophils/100 WBC (Bld) 74 % 43.0 - 75.0 % [facility] Platelet mean volume (Bld) [Entitic vol] 10.7 fL 9.5 - 13.5 fL [facility] TBH EO # 0.1 [facility] PLT 238 [facility] RBC 3.[address] [facility] WBC 9.4 [facility] UA (CLEAN/CATCH) ENGINEERING OPERATOR/LA RO IF IND.on 03-07-2024 BILIRUBIN URINE Negative NEGATIVE [facility] BLOOD URINE Negative NEGATIVE [facility] Clarity (U) CLEAR CLEAR [facility] Color (U) YELLOW YELLOW [facility] GLUCOSE URINE UA Negative NEGATIVE mg/dL [facility] Interpretation and review of laboratory results Abnormal [facility] Ketones Ql (U) TRACE Abnormal NEGATIVE mg/dL [facility] Leukocyte esterase Test strip Ql (U) Negative NEGATIVE [facility] NITRITE URINE Negative NEGATIVE [facility] pH (U) 7.5 [pH] 5.0 - 9.0 [facility] PROTEIN URINE TRACE NEG/TRACE mg/dL [facility] SPECIFIC GRAVITY URINE 1.025 1.005 - 1.025 [facility] URINE MICROSCOPIC INDICATED NO [facility] UROBILINOGEN URINE 1.0 EU/dL 0.2 - 1.0 EU/dL [facility]stick) panel (U)on 02-11-2024 Bilirubin, UA Negative Negative - 4(70) +++ mg/dL [facility] Blood, UA Negative Negative - 50 Armand/mcL [facility] Clarity, UA Clear [facility] Color, UA Yellow [facility] Glucose, UA Negative Negative - 1999(110) ++++ mg/dL [facility] Interpretation and review of laboratory results Abnormal [facility] Ketones, UA Negative Negative - 160(16) ++++ mg/dL [facility] Leukocytes, UA Negative Negative - 500+++ Doe/mcL [facility] Nitrite, UA Negative Negative - Positive [facility] pH, UA 7.5 5 - 9 [facility] Protein, UA Trace Negative - 1999(20) ++++ mg/dL [facility] Spec Grav, UA 1.015 1 - 1.03 [facility] Urobilinogen, UA 0.2 0.2 - 12 mg/dL [facility] IGP,APTIMA HPV,AGE GDLNon AGE GDLN ACOG TESTING Note . [facility] Comment on above: TESTS RESULT FLAG UN ITS REF RANGE LAB Clinician Provided Cytology Information Source.............Cervix Other.............. No. of containers..01 ThinPrep Vial Age Sobeida MARES Beverly... 30-65 01 FLAG LEGEND: L-Low Normal,H-High Normal,LL-Alert Low,HH-Alert High <-Panic Low,>-Panic High,A-Abnormal,AA-Critical Abnormal Performed at: 01 =G [facility] [place] [address] Judith Ventura MD, HPV APTIMA Negative Negative [facility] Comment on above: This nucleic acid am plification test detects fourteen high- risk HPV types (16,18,31,33,35,39,45,51,52,56,58,59,66,68) without differentiation. Performed at: =G - [facility] [id number] Rust Proofer: Judith Ventura MD, Phone: [phone] Performed at: - [facility] [id number] Rust Proofer: Judith Ventura MD, Phone: [phone] IGP, APTIMA HPV, RFX 16/18,45 Note . [facility] Comment on above: TESTS RESULT FLAG UN ITS REF RANGE LAB DIAGNOSIS: 02 NEGATIVE FOR INTRAEPITHELIAL LESION OR MALIGNANCY. Specimen adequacy: 02 Satisfactory for evaluation. Endocervical and/or squamous metaplastic cells (endocervical component) are present. Performed by: 02 Ashli Frank, Bartacker (ASCP) . 02 Note: Note 02 The [...] <-Panic Low,>-Panic High,A-Abnormal,AA-Critical Abnormal Performed at: [address] [id number] Judith Ventura MD, SPATULA-ALONE CERVIX [facility] RECURRENT VAGINITIS (HTRX)on 01-11-2024 ATOPOBIUM VAGINAE 0 [facility] ATOPOBIUM VAGINAE Not detected [facility] BVAB 2,3 (BACTERIAL VAGINOSIS ASSOCIATED BACTERIA 2, 3); MOBILUNCUS SPP 0 [facility] BVAB 2,3 (BACTERIAL VAGINOSIS ASSOCIATED BACTERIA 2, 3); MOBILUNCUS SPP Not detected [facility] LOC ALBICANS, PARAPSILOSIS, TROPICALIS 0 [facility] LOC ALBICANS, PARAPSILOSIS, TROPICALIS Not detected [facility] LOC GLABRATA 0 [facility] LOC GLABRATA Not detected [facility] LOC KRUSEI 0 [facility] LOC KRUSEI Not detected [facility] CHLAMYDIA TRACHOMATIS 0 [facility] CHLAMYDIA TRACHOMATIS Not detected [facility] GARDNERELLA VAGINALIS 0 [facility] GARDNERELLA VAGINALIS Not detected [facility] MEGASPHAERA (TYPES 1, 2) 0 [facility] MEGASPHAERA (TYPES 1, 2) Not detected [facility] MYCOPLASMA GENITALIUM 0 [facility] MYCOPLASMA GENITALIUM Not detected [facility] NEISSERIA GONORRHOEAE 0 [facility] NEISSERIA GONORRHOEAE Not detected [facility] TRICHOMONAS VAGINALIS 0 [facility] TRICHOMONAS VAGINALIS Not detected [facility] Urinalysis macro (dipstick) panel (U)on 01-10-2024 Bilirubin, UA Negative Negative - 4(70) +++ mg/dL [facility] Blood, UA Negative Negative - 50 Armand/mcL [facility] Clarity, UA Clear [facility] Color, UA Yellow [facility] Glucose, UA Negative Negative - 1999(110) ++++ mg/dL [facility] Interpretation and review of laboratory results Abnormal [facility] Ketones, UA Positive Negative - 160(16) ++++ mg/dL [facility] Leukocytes, UA Negative Negative - 500+++ Doe/mcL [facility] Nitrite, UA Negative Negative - Positive [facility] pH, UA 7 5 - 9 [facility] Protein, UA Negative Negative - 2000(20) ++++ mg/dL [facility] Spec Grav, UA 1.015 1 - 1.03 [facility] Urobilinogen, UA 1.0 0.2 - 12 mg/dL [facility] ALL CBC WITH AUTO DIFFon BASOPHILS ABSOLUTE AUTO 0.0 [facility] Basophils/100 WBC (Bld) 0.2 % 0.2 - 2.0 % [facility] Eosinophils/100 WBC (Bld) 2.3 % 0.9 - 7.0 % [facility] Erythrocyte distribution width (RBC) [Ratio] 12.3 % 11.0 - 15.0 % [facility] Hematocrit (Bld) [Volume fraction] 37.1 % 36.0 - 48.0 % [facility] Hemoglobin (Bld) [Mass/Vol] 12.3 g/dL 12.0 - 16.0 g/dL [facility] IMMATURE GRANULOCYTES ABS AUTO 0.04 High [facility] Immature granulocytes/100 WBC (Bld) 0.4 % 0.0 - 0.5 % [facility] Interpretation and review of laboratory results Abnormal [facility] LYMPHOCYTES ABSOLUTE AUTO 2.7 [facility] Lymphocytes/100 WBC (Bld) 28.4 % 20.5 - 60.0 % [facility] MCH (RBC) [Entitic mass] 28.0 pg 26.7 - 34.0 pg [facility] MCHC (RBC) [Mass/Vol] 33.2 g/dL 29.9 - 35.2 g/dL [facility] MCV (RBC) [Entitic vol] 84.3 fL 81.0 - 99.0 fL [facility] MONOCYTES ABSOLUTE AUTO 0.5 [facility] Monocytes/100 WBC (Bld) 5.0 % 1.7 - 12.0 % [facility] NEUTROPHILS ABSOLUTE AUTO 6.0 [facility] Neutrophils/100 WBC (Bld) 63.7 % 43.0 - 75.0 % [facility] Platelet mean volume (Bld) [Entitic vol] 10.4 fL 9.5 - 13.5 fL [facility] EO # 0.2 [facility] PLT [address] [facility] RBC 4.40 [facility] TB WBC 9.4 [facility] Urinalysis macro (dipstick) panel (U)on 11-28-2023 Bilirubin, UA Negative Negative - 4(70) +++ mg/dL [facility] Blood, UA Negative Negative - 50 Armand/mcL [facility] Clarity, UA Clear [facility] Color, UA Yellow [facility] Glucose, UA Negative Negative - 1999(110) ++++ mg/dL [facility] Interpretation and review of laboratory results Normal [facility] Ketones, UA Negative Negative - 160(16) ++++ mg/dL [facility] Leukocytes, UA Negative Negative - 500+++ Doe/mcL [facility] Nitrite, UA Negative Negative - Positive [facility] pH, UA 7.0 5 - 9 [facility] Protein, UA Negative Negative - 1999(20) ++++ mg/dL [facility] Spec Grav, UA 1.025 1 - 1.03 [facility] Urobilinogen, UA 1.0 0.2 - 12 mg/dL [facility] URINE CULTURE, ROUTINEon Bacteria identified Cx Nom (U) Urine Culture, Routine [facility] Bacteria identified Cx Nom (U) Culture shows less than 10,000 colony forming units of bacteria per [facility] Bacteria identified Cx Nom (U) milliliter of urine. This colony count is not generally considered [facility] Bacteria identified Cx Nom (U) to be clinically significant. [facility] Bacteria identified Cx Nom (U) [facility] identified Cx Nom (U) [address] [place], [place] [id number] [facility] Bacteria identified Cx Nom (U) Rust Proofer: Michael Berry PhD, Phone: [phone] [facility] HCG ( test) Ql (U)o n 11-01-2023 Interpretation and review of laboratory results Abnormal [facility] Preg Test, Ur Positive [facility] Urinalysis macro (dipstick) panel (U)on 11-01-2023 Bilirubin, UA Negative Negative - 4(70) +++ mg/dL [facility] Blood, UA Negative Negative - 50 Armand/mcL [facility] Clarity, UA Clear [facility] Color, UA Yellow [facility] Glucose, UA Negative Negative - 1999(110) ++++ mg/dL [facility] Interpretation and review of laboratory results Normal [facility] Ketones, UA Negative Negative - 160(16) ++++ mg/dL [facility] Leukocytes, UA Negative Negative - 500+++ Doe/mcL [facility] Nitrite, UA Negative Negative - Positive [facility] pH, UA 6.0 5 - 9 [facility] Protein, UA Negative Negative - 1999(20) ++++ mg/dL [facility] Spec Grav, UA 1.020 1 - 1.03 [facility] Urobilinogen, UA 0.2 0.2 - 12 mg/dL [facility] XR CERVICAL SPINE AP/LAT/FLE X/EXT/OBLIQUESon 08-16-2023 XR [...] [Mass/Vol] 8.9 mg/dL Normal (8.6 - 10.6) [facility] Comment on above: Performed By: #### C BC/2A, ESRCRP, CCP, HBC-M, HBSAG, HCV, CA, MG, RHF, URCA #### [facility] [address] [facility], [id number] CBC, ALB, ALT, AST, ALK AND CREAon 12-18-2022 Albumin [Mass/Vol] 5.0 g/dL Normal (3.5 - 5.0) [facility] Comment on above: Order Comment: FACIL ITY: [facility] [id number] Performed By: #### C BC/2A, ESRCRP, CCP, HBC-M, HBSAG, HCV, CA, MG, RHF, URCA #### [facility] [address] [facility], [phone] ALK PHOS 60 U/L Normal (38 - 126) [facility] Comment on above: Order Comment: FACIL ITY: [facility] [id number] Performed By: #### C BC/2A, ESRCRP, CCP, HBC-M, HBSAG, HCV, CA, MG, RHF, URCA #### [facility] [address] [facility], [phone] ALT [Catalytic activity/Vol] 34 U/L Normal (1 - 35) [facility] Comment on above: Order Comment: FACIL ITY: [facility] [id number] Performed By: #### C BC/2A, ESRCRP, CCP, HBC-M, HBSAG, HCV, CA, MG, RHF, URCA #### [facility] [address] [facility], [address] AST [Catalytic activity/Vol] 34 U/L Normal (15 - 46) [facility] Comment on above: Order Comment: FACIL ITY: [facility] [id number] Performed By: #### C BC/2A, ESRCRP, CCP, HBC-M, HBSAG, HCV, CA, MG, RHF, URCA #### [facility] [address] [facility], [id number] Creatinine [Mass/Vol] 0.61 mg/dL Normal (0.52 - 1.04) [facility] Comment on above: Order Comment: FACIL ITY: [facility] [id number] Performed By: #### C BC/2A, ESRCRP, CCP, HBC-M, HBSAG, HCV, CA, MG, RHF, URCA #### [facility] [address] [facility], [id number] GFR- AMER 135.1 ML/M1.7 Normal (60.0 - 140.1) [facility] Comment on above: Order Comment: FACIL ITY: [facility] [id number] Performed By: #### C BC/2A, ESRCRP, CCP, HBC-M, HBSAG, HCV, CA, MG, RHF, URCA #### [facility] [address] [facility], [id number] GFR-NON AFRIC-AMER 111.6 ML/M1.7 Normal (60.0 - 115.8) [facility] Comment on above: Order Comment: FACIL ITY: [facility] [id number] Performed By: #### C BC/2A, ESRCRP, CCP, HBC-M, HBSAG, HCV, CA, MG, RHF, URCA #### [facility] [address] [facility], [id number] Hematocrit (Bld) [Volume fraction] 41.5 % Normal (37.0 - 47.0) [facility] Comment on above: Order Comment: FACIL ITY: [facility] [id number] Performed By: #### C BC/2A, ESRCRP, CCP, HBC-M, HBSAG, HCV, CA, MG, RHF, URCA #### [facility] [address] [facility], [phone] Hemoglobin (Bld) [Mass/Vol] 13.5 g/dL Normal (12.0 - 16.0) [facility] Comment on above: Order Comment: FACIL ITY: [facility] [id number] Performed By: #### C BC/2A, ESRCRP, CCP, HBC-M, HBSAG, HCV, CA, MG, RHF, URCA #### [facility] [address] [facility], [phone] MCH (RBC) [Entitic mass] 28.7 pg Normal (27.0 - 33.0) [facility] Comment on above: Order Comment: FACIL ITY: [facility] [id number] Performed By: #### C BC/2A, ESRCRP, CCP, HBC-M, HBSAG, HCV, CA, MG, RHF, URCA #### [facility] [address] [facility], [phone] MCHC (RBC) [Mass/Vol] 32.5 g/dL Normal (30.0 - 37.0) [facility] Comment on above: Order Comment: FACIL ITY: [facility] [id number] Performed By: #### C BC/2A, ESRCRP, CCP, HBC-M, HBSAG, HCV, CA, MG, RHF, URCA #### [facility] [address] [facility], [address] MCV (RBC) [Entitic vol] 88.1 fL Normal (81.0 - 99.0) [facility] Comment on above: Order Comment: FACIL ITY: [facility] [id number] Performed By: #### C BC/2A, ESRCRP, CCP, HBC-M, HBSAG, HCV, CA, MG, RHF, URCA #### [facility] [address] [facility], [address] PLT 282 x10^3ul Normal (130 - 400) [facility] Comment on above: Order Comment: FACIL ITY: [facility] [id number] Performed By: #### C BC/2A, ESRCRP, CCP, HBC-M, HBSAG, HCV, CA, MG, RHF, URCA #### [facility] [address] [facility], [address] RBC 4.71 x10^6ul Normal (4.20 - 5.40) [facility] in Comment on above: Order Comment: FACIL ITY: [facility] [id number] Performed By: #### C BC/2A, ESRCRP, CCP, HBC-M, HBSAG, HCV, CA, MG, RHF, URCA #### [facility] Lab [address] [facility], [address] WBC 6.47 x10^3ul Normal (3.80 - 10.60) [facility] Comment on above: Order Comment: FACIL ITY: [facility] [id number] Performed By: #### C BC/2A, ESRCRP, CCP, HBC-M, HBSAG, HCV, CA, MG, RHF, URCA #### [facility] [address] [facility], [address] HEP B CORE AB, IGMon 023 HEPATITIS B CORE ANTIBODY, IGM Negative Normal (NEG - NEG) [facility] Comment on above: Performed By: #### C BC/2A, ESRCRP, CCP, HBC-M, HBSAG, HCV, CA, MG, RHF, URCA #### [facility] Lab [address] [facility], [address] HEP B HERACLIO AGon 12-18-2022 HEP B HERACLIO AG Negative Normal (NEG - NEG) [facility] ic Comment on above: Performed By: #### C BC/2A, ESRCRP, CCP, HBC-M, HBSAG, HCV, CA, MG, RHF, URCA #### [facility] [address] [facility], [address] HEP C ANTIBODYon 12-18-2022 HEPATITIS C ANTIBODY Negative Normal (NEG - NEG) [facility] Comment on above: Performed By: #### C BC/2A, ESRCRP, CCP, HBC-M, HBSAG, HCV, CA, MG, RHF, URCA #### [facility] Lab [address] [facility], [address] MAGNESIUMon 12-18-2022 Magnesium [Mass/Vol] 2.0 mg/dL Normal (1.6 - 2.3) [facility] Comment on above: Performed By: #### C BC/2A, ESRCRP, CCP, HBC-M, HBSAG, HCV, CA, MG, RHF, URCA #### [facility] Lab [address] [facility], [address] RF FACTORon 12-18-2022 RF FACTOR <9 Normal (0 - 12) [facility] Comment on above: Result Comment: RF F ACTOR = LESS THAN 9 IU/ML RF FACTOR MIN. DETECTION = 9 IU/ML. Performed By: #### C BC/2A, ESRCRP, CCP, HBC-M, HBSAG, HCV, CA, MG, RHF, URCA #### [facility] [address] [facility], [address] SED RATE - CRPon 12-18-2022 CRP EXTENDED RANGE 1.40 MG/L Normal (0.00 - 3.20) [facility] Comment on above: Performed By: #### C BC/2A, ESRCRP, CCP, HBC-M, HBSAG, HCV, CA, MG, RHF, URCA #### [facility] Lab [address] [facility], [address] SED RATE WEST. 5 MM/HR Normal (0 - 25) [facility] Comment on above: Performed By: #### C BC/2A, ESRCRP, CCP, HBC-M, HBSAG, HCV, CA, MG, RHF, URCA #### [facility] [address] [facility], [address] URIC ACIDon 12-18-2022 Urate [Mass/Vol] 4.2 mg/dL Normal (2.5 - 6.2) [facility] Comment on above: Performed By: #### C BC/2A, ESRCRP, CCP, HBC-M, HBSAG, HCV, CA, MG, RHF, URCA #### [facility] Lab [address] [facility], [address] PAP ACOG PANEL 2: 30 to 65on 11-16-2021 . . Normal [facility] Comment on above: Result Comment: Perf ormed at: WB Performed By: #### [id number] #### [facility] [address] [address] [address] Sierra Almonte Age Gdln ACOG Testing - [facility] Comment on above: Performed By: #### 4 [id number] #### [facility] [address] [address] [address] Sierra Almonte DIAGNOSIS: Comment Normal [facility] Comment on above: Result Comment: NEGA TIVE FOR INTRAEPITHELIAL LESION OR MALIGNANCY. Performed at: WB Performed By: #### 4 [id number] #### [facility] [address] [address] [address] Sierra Almonte HPV Aptima Negative Normal Negative [facility] Comment on above: Result Comment: This nucleic acid amplification test detects fourteen high-risk HPV types (16,18,31,33,35,39,45,51,52,56,58,59,66,68) without differentiation. Performed at: =G Performed By: #### 4 [id number] #### [facility] [address] [address] [address] Sierra Almonte Methodology: Comment Normal [facility] Comment on above: Result Comment: This liquid based ThinPrep(R) pap test was screened with the use of an image guided system. Performed at: WB Performed By: #### 4 [id number] #### [facility] [address] [place] [address] Dr. Sierra Almonte Note: Comment Normal [facility] Comment on above: Result Comment: The Pap smear is a screening test designed to aid in the detection of premalignant and malignant conditions of the uterine cervix. It is not a diagnostic procedure and should not be used as the sole means of detecting cervical cancer. Both false-positive and false-negative reports do occur. . Performed at: WB Performed By: #### 4 [id number] #### [facility] [address] [address] [address] Sierra Almonte Performed by: Comment Normal [facility] Comment on above: Result Comment: Alison Sapp, Bartacker (ASCP) Performed at: WB Performed By: #### [id number] #### [facility] [address] [address] [address] Sierra Almonte Specimen adequacy: Comment Normal [facility] Comment on above: Result Comment: Sati sfactory for evaluation. Endocervical and/or squamous metaplastic cells (endocervical component) are present. Performed at: WB Performed By: #### [id number] #### [facility] [address] [address] [address] Sierra Almonte US Thyroidon 07-14-2021 US [...] by Alexei Smith on 07/14/2021 1000 Normal [facility] Complete Blood Count with Au to Diffon 07-12-2021 Basophils (Bld) [#/Vol] 0.02 10*3/uL Normal 0.00-0.20 [facility] Comment on above: Performed By: #### C BCAD, RF, VITD, ESR, TSH reflex FT4, CMP, FT4 #### [facility] [address] [place], [place] [id number] Basophils/100 WBC (Bld) 0.3 % Normal [facility] Comment on above: Performed By: #### C BCAD, RF, VITD, ESR, TSH reflex FT4, CMP, FT4 #### [facility] [address] [place], [place] [id number] Eosinophils (Bld) [#/Vol] 0.08 10*3/uL Normal 0.02-0.50 [facility] Comment on above: Performed By: #### C BCAD, RF, VITD, ESR, TSH reflex FT4, CMP, FT4 #### [facility] [address] [place], [place] [id number] Eosinophils/100 WBC (Bld) 1.2 % Normal [facility] Comment on above: Performed By: #### C BCAD, RF, VITD, ESR, TSH reflex FT4, CMP, FT4 #### [facility] [address] [place], [place] [id number] Erythrocyte distribution width (RBC) [Ratio] 13.8 % Normal 11.0-15.0 [facility] Comment on above: Performed By: #### C BCAD, RF, VITD, ESR, TSH reflex FT4, CMP, FT4 #### [facility] [address] [place], [place] [id number] Hematocrit (Bld) [Volume fraction] 39.6 % Normal 35.0-47.0 [facility] Comment on above: Performed By: #### C BCAD, RF, VITD, ESR, TSH reflex FT4, CMP, FT4 #### [facility] [address], [place] [id number] Hemoglobin (Bld) [Mass/Vol] 12.9 g/dL Normal 11.6-15.5 [facility] Comment on above: Performed By: #### C BCAD, RF, VITD, ESR, TSH reflex FT4, CMP, FT4 #### [facility] [address], [place] [id number] Lymphocytes (Bld) [#/Vol] 1.3 10*3/uL Normal 0.9-3.9 [facility] Comment on above: Performed By: #### C BCAD, RF, VITD, ESR, TSH reflex FT4, CMP, FT4 #### [facility] [address] [place], [place] [id number] Lymphocytes/100 WBC (Bld) 20.3 % Normal [facility] Comment on above: Performed By: #### C BCAD, RF, VITD, ESR, TSH reflex FT4, CMP, FT4 #### [facility] [address] [place], [place] [id number] MCH (RBC) [Entitic mass] 28.3 pg Normal 27.0-33.0 [facility] Comment on above: Performed By: #### C BCAD, RF, VITD, ESR, TSH reflex FT4, CMP, FT4 #### [facility] [address] [place], [place] [id number] MCHC (RBC) [Mass/Vol] 32.6 g/dL Normal 32.0-36.0 [facility] Comment on above: Performed By: #### C BCAD, RF, VITD, ESR, TSH reflex FT4, CMP, FT4 #### [facility] [address], [place] [id number] MCV (RBC) [Entitic vol] 87 fL Normal 80-100 [facility] Comment on above: Performed By: #### C BCAD, RF, VITD, ESR, TSH reflex FT4, CMP, FT4 #### [facility] [address], [place] [id number] Monocytes (Bld) [#/Vol] 0.4 10*3/uL Normal 0.2-0.9 [facility] Comment on above: Performed By: #### C BCAD, RF, VITD, ESR, TSH reflex FT4, CMP, FT4 #### [facility] [address] [place], [place] [id number] Monocytes/100 WBC (Bld) 5.8 % Normal [facility] Comment on above: Performed By: #### C BCAD, RF, VITD, ESR, TSH reflex FT4, CMP, FT4 #### [facility] [address] [place], [place] [id number] Neutrophils (Bld) [#/Vol] 4.7 10*3/uL Normal 1.5-7.8 [facility] Comment on above: Performed By: #### C BCAD, RF, VITD, ESR, TSH reflex FT4, CMP, FT4 #### [facility] [address] [place], [place] [id number] Neutrophils/100 WBC (Bld) 72.1 % Normal [facility] Comment on above: Performed By: #### C BCAD, RF, VITD, ESR, TSH reflex FT4, CMP, FT4 #### [facility] [address] [place], [place] [id number] Platelet mean volume (Bld) [Entitic vol] 11.00 fL Normal 7.50-12.50 [facility] Comment on above: Performed By: #### C BCAD, RF, VITD, ESR, TSH reflex FT4, CMP, FT4 #### [facility] [address] [place], [place] [id number] Platelets (Bld) [#/Vol] 271 10*3/uL Normal 140-400 [facility] Comment on above: Performed By: #### C BCAD, RF, VITD, ESR, TSH reflex FT4, CMP, FT4 #### [facility] [address] [place], [place] [id number] RBC (Bld) [#/Vol] 4.56 10*6/uL Normal 3.90-5.20 [facility] Time Study Statistician Comment on above: Performed By: #### C BCAD, RF, VITD, ESR, TSH reflex FT4, CMP, FT4 #### [facility] [address] [place], [place] [id number] RDW-SD 43.5 fL Normal 37.0-50.0 [facility] Time Study Statistician Comment on above: Performed By: #### C BCAD, RF, VITD, ESR, TSH reflex FT4, CMP, FT4 #### [facility] [address] [place], [place] [id number] WBC (Bld) [#/Vol] 6.5 10*3/uL Normal 3.8-11.0 [facility] Time Study Statistician Comment on above: Performed By: #### C BCAD, RF, VITD, ESR, TSH reflex FT4, CMP, FT4 #### [facility] [address], [place] [id number] Comprehensive Metabolic Pane [facility] 07-12-2021 Albumin [Mass/Vol] 4.9 g/dL Normal 3.6-5.1 [facility] Time Study Statistician Comment on above: Performed By: #### C BCAD, RF, VITD, ESR, TSH reflex FT4, CMP, FT4 #### [facility] [address], [place] [id number] Albumin/Globulin [Mass ratio] 2.2 {ratio} Normal 1.0-2.5 [facility] Time Study Statistician Comment on above: Performed By: #### C BCAD, RF, VITD, ESR, TSH reflex FT4, CMP, FT4 #### [facility] [address] [place], [place] [id number] ALP [Catalytic activity/Vol] 63 U/L Normal 35-119 [facility] Time Study Statistician Comment on above: Performed By: #### C BCAD, RF, VITD, ESR, TSH reflex FT4, CMP, FT4 #### [facility] [address], [place] [id number] ALT [Catalytic activity/Vol] 26 U/L Normal 6-33 [facility] Time Study Statistician Comment on above: Result Comment: 12/1 /2021 Female reference range changed. Performed By: #### C BCAD, RF, VITD, ESR, TSH reflex FT4, CMP, FT4 #### [facility] [address], [place] [id number] Anion gap [Moles/Vol] 18 mmol/L Normal 12-20 [facility] Comment on above: Result Comment: Effdenver ctive 03/03/2019 reference range changed. Performed By: #### C BCAD, RF, VITD, ESR, TSH reflex FT4, CMP, FT4 #### [facility] [address], [place] [id number] AST [Catalytic activity/Vol] 26 U/L Normal 9-34 [facility] Comment on above: Performed By: #### C BCAD, RF, VITD, ESR, TSH reflex FT4, CMP, FT4 #### [facility] [address], [place] [id number] BUN/CREA 10 Ratio Normal 6-22 [facility] Comment on above: Performed By: #### C BCAD, RF, VITD, ESR, TSH reflex FT4, CMP, FT4 #### [facility] [address], [place] [id number] Calcium [Mass/Vol] 10.0 mg/dL Normal 8.6-10.2 [facility] Comment on above: Performed By: #### C BCAD, RF, VITD, ESR, TSH reflex FT4, CMP, FT4 #### [facility] [address] [place], [place] [id number] Chloride [Moles/Vol] 105 mmol/L Normal 98-107 [facility] Comment on above: Performed By: #### C BCAD, RF, VITD, ESR, TSH reflex FT4, CMP, FT4 #### [facility] [address] [place], [place] [id number] CO2 [Moles/Vol] 21 mmol/L Normal 20-31 [facility] Comment on above: Performed By: #### C BCAD, RF, VITD, ESR, TSH reflex FT4, CMP, FT4 #### [facility] [address] [place], [place] [id number] Creatinine [Mass/Vol] 0.6 mg/dL Normal 0.6-1.4 [facility] Comment on above: Performed By: #### C BCAD, RF, VITD, ESR, TSH reflex FT4, CMP, FT4 #### [facility] [address] [place], [place] [id number] eGFRAA 132 mL/min/1.73m2 Normal >60 [facility] Specialist Comment on above: Performed By: #### C BCAD, RF, VITD, ESR, TSH reflex FT4, CMP, FT4 #### [facility] [address], [place] [id number] eGFRNAA 109 mL/min/1.73m2 Normal >60 [facility] Specialist Comment on above: Performed By: #### C BCAD, RF, VITD, ESR, TSH reflex FT4, CMP, FT4 #### [facility] [address], [place] [id number] Globulin (S) [Mass/Vol] 2.2 g/dL Normal 1.9-3.7 [facility] Comment on above: Performed By: #### C BCAD, RF, VITD, ESR, TSH reflex FT4, CMP, FT4 #### [facility] [address], [place] [id number] Glucose [Mass/Vol] 86 mg/dL Normal 65-99 [facility] Time Study Statistician Comment on above: Result Comment: For FASTING Glucose --- ADA reference ranges: Normal 65-99 mg/dl Prediabetes 100-125 Diabetes >/= 126 Performed By: #### C BCAD, RF, VITD, ESR, TSH reflex FT4, CMP, FT4 #### [facility] [address] [place], [place] [id number] Potassium [Moles/Vol] 4.1 mmol/L Normal 3.5-5.5 [facility] Comment on above: Performed By: #### C BCAD, RF, VITD, ESR, TSH reflex FT4, CMP, FT4 #### [facility] [address], [place] [id number] Protein [Mass/Vol] 7.1 g/dL Normal 6.1-8.1 [facility] Time Study Statistician Comment on above: Performed By: #### C BCAD, RF, VITD, ESR, TSH reflex FT4, CMP, FT4 #### [facility] [address], [place] [id number] Sodium [Moles/Vol] 140 mmol/L Normal 135-146 [facility] [place] Time Study Statistician Comment on above: Performed By: #### C BCAD, RF, VITD, ESR, TSH reflex FT4, CMP, FT4 #### [facility] [address], [place] [id number] TBIL <0.3 Normal [facility] Comment on above: Performed By: #### C BCAD, RF, VITD, ESR, TSH reflex FT4, CMP, FT4 #### [facility] [address] [place], [place] [id number] Urea nitrogen [Mass/Vol] 7 mg/dL Normal 7-25 [facility] Time Study Statistician Comment on above: Performed By: #### C BCAD, RF, VITD, ESR, TSH reflex FT4, CMP, FT4 #### [facility] [address] [place], [place] [id number] Free T4on 07-12-2021 Free T4 [Mass/Vol] 0.93 ng/dL Normal 0.80-1.80 [facility] [place] Time Study Statistician Comment on above: Performed By: #### C BCAD, RF, VITD, ESR, TSH reflex FT4, CMP, FT4 #### [facility] [address] [place], [place] [id number] Q - PASQUALE SCREEN IFA W/RFL TIT ER AND PATTERNon 07-12-2021 PASQUALE SCREEN, IFA Negative Normal NEGATIVE [facility] Comment on above: Order Comment: [facility] performed at: QPT, [facility], [address] [facility], [address] [place] [address], [place], [address], Diet Assistant: Leonard Turpin MD [facility] Date/Time: [facility] [...] AC-0: Negative International Consensus on PASQUALE Patterns (https://doi.org/10.1515/ccak-5362-0413) For additional information, please refer to http://education.Re2you/faq/NYF196 (This link is being provided for informational/ educational purposes only.) Performed By: #### 2 49 #### [facility] Default [address] [place] [address] RBC Sedimentation Rateon ESR (Bld) [Velocity] 8.00 mm/h Normal 0.00-20.00 [facility] Comment on above: Performed By: #### C BCAD, RF, VITD, ESR, TSH reflex FT4, CMP, FT4 #### [facility] [address] [place], [place] [id number] Rheumatoid Factoron 07-13-19 22 RF <10 Normal [facility] Comment on above: Performed By: #### C BCAD, RF, VITD, ESR, TSH reflex FT4, CMP, FT4 #### [facility] [address] [place], [place] [id number] TSH w/ Reflex to Free T4on 0 07-12-2021 TSH 0.321 uIU/mL Low 0.400-4.500 [facility] Time Study Statistician Comment on above: Performed By: #### C BCAD, RF, VITD, ESR, TSH reflex FT4, CMP, FT4 #### [facility] [address] [place], [place] [id number] Vitamin D 25-OHon 07-12-2021 VIT D 25 OH 19 ng/ml Low >29 [facility] Comment on above: Result Comment: Ade min D Status Deficiency <20 ng/mL Insufficiency 20-29 ng/mL Optimal 30-100 ng/mL Possible Toxicity >=150 ng/mL Performed By: #### C BCAD, RF, VITD, ESR, TSH reflex FT4, CMP, FT4 #### [facility] [address] [place], [place] [id number] Comprehensive Metabolic Empo n 04-11-2021 Albumin [Mass/Vol] 4.6 g/dL Normal 3.2-5.5 [facility] Comment on above: Performed By: #### E BS CMP, EBS LIPID #### [facility] [address] [id number] [place] Albumin/Globulin [Mass ratio] 1.9 {ratio} Normal [facility] Comment on above: Performed By: #### E BS CMP, EBS LIPID #### [facility] [address] [id number] [place] ALP [Catalytic activity/Vol] 43 U/L Normal 32-92 [facility] Comment on above: Performed By: #### E BS CMP, EBS LIPID #### [facility] [address] [id number] [place] ALT [Catalytic activity/Vol] 17 U/L Normal 10-60 [facility] Comment on above: Performed By: #### E BS CMP, EBS LIPID #### [facility] [address] [place] [address] [place] AST [Catalytic activity/Vol] 20 U/L Normal 10-42 [facility] Comment on above: Performed By: #### E BS CMP, EBS LIPID #### [facility] [address] [place] [address] [place] Bilirubin [Mass/Vol] 1.1 mg/dL Normal 0.3-1.2 [facility] Comment on above: Performed By: #### E BS CMP, EBS LIPID #### [facility] [address] [place] [address] [place] Calcium [Mass/Vol] 9.6 mg/dL Normal 8.2-10.2 [facility] Comment on above: Performed By: #### E BS CMP, EBS LIPID #### [facility] [address] [id number] [place] Chloride [Moles/Vol] 102 mmol/L Normal 95-114 [facility] Comment on above: Performed By: #### E BS CMP, EBS LIPID #### [facility] [address] [place] [address] [place] CO2 [Moles/Vol] 21.4 mmol/L Low 22.0-30.0 [facility] Comment on above: Performed By: #### E BS CMP, EBS LIPID #### [facility] [address] [place] [address] [place] Creatinine [Mass/Vol] 0.71 mg/dL Normal 0.44-1.03 [facility] Comment on above: Performed By: #### E BS CMP, EBS LIPID #### [facility] [address] Estimated GFR ( Michelle > 60 Normal [facility] Comment on above: Result Comment: GFR estimated reference range: According to KDOQI guidelines, <60 ml/min/1.73m2 is sufficient to diagnose a patient with chronic kidney disease. Performed By: #### E BS CMP, EBS LIPID #### [facility] [address] [place] [address] [place] Estimated GFR (Non- Am > 60 Normal [facility] Comment on above: Performed By: #### E BS CMP, EBS LIPID #### [facility] [address] [place] [address] [place] Globulin (S) [Mass/Vol] 2.4 g/dL Normal [facility] Comment on above: Performed By: #### E BS CMP, EBS LIPID #### [facility] [address] [place] [address] [place] Glucose [Mass/Vol] 76 mg/dL Normal 70-100 [facility] Comment on above: Performed By: #### E BS CMP, EBS LIPID #### [facility] [address] [place], [place] [id number] [place] Potassium [Moles/Vol] 3.3 mmol/L Low 3.5-5.1 [facility] Comment on above: Performed By: #### E BS CMP, EBS LIPID #### [facility] [address] [place], [place] [id number] [place] Protein [Mass/Vol] 7.0 g/dL Normal 6.1-7.9 [facility] Comment on above: Performed By: #### E BS CMP, EBS LIPID #### [facility] [address] [id number] [place] Sodium [Moles/Vol] 136 mmol/L Normal 136-146 [facility] Comment on above: Performed By: #### E BS CMP, EBS LIPID #### [facility] [address] [id number] [place] Urea nitrogen [Mass/Vol] 5 mg/dL Low 9- [facility] Comment on above: Performed By: #### E BS CMP, EBS LIPID #### [facility] [address] Lipid Profileon 04-11-2021 Cholesterol [Mass/Vol] 189 mg/dL Normal 140-200 [facility] Comment on above: Result Comment: Chol less than 200 mg/dl low risk Chol 201-239 mg/dl borderline risk Chol 240 mg/dl and greater high risk Performed By: #### E BS CMP, EBS LIPID #### [facility] [address] Cholesterol in HDL [Mass/Vol] 69 mg/dL Normal 35-85 [facility] Comment on above: Result Comment: HDL CHOL ATP-III CLASSIFICATION Cardiovascular Risk HDL > or equal to 60 mg/dL LOW HDL < 40 mg/dL HIGH Performed By: #### E BS CMP, EBS LIPID #### [facility] [address] Cholesterol.total/C holesterol in HDL [Mass ratio] 2.7 {ratio} Normal <5.0 [facility] Comment on above: Result Comment: PERF ORMED BY: [facility] [address] [place] [address] PATHOLOGIST PRACTICE LEAD PAT PETERS M.D. Performed By: #### E BS CMP, EBS LIPID #### [facility] [address] LDL Cholesterol,Calcula shadi 107 mg/dL High 0-100 [facility] Comment on above: Result Comment: LDL ATP III CLASSIFICATION LDL less than 100 mg/dL Optimal LDL 100-129 mg/dL Near or above optimal LDL 130-159 mg/dL Borderline high LDL 160-189 mg/dL High LDL greater than 189 mg/dL Very high Performed By: #### E BS CMP, EBS LIPID #### [facility] [address] Triglyceride w/Reflex 64 mg/dL Normal 35-149 [facility] Comment on above: Result Comment: TRIG ATP III CLASSIFICATION TRIG less than 150 mg/dL Normal TRIG 150-199 mg/dL Borderline high TRIG 200-500 mg/dL High TRIG greater than 500 mg/dL Very high Standard traceable to the Center for Disease Conrtrol and Prevention (CDC) test method. Performed By: #### E BS CMP, EBS LIPID #### [facility] [address] VLDL CHOLESTEROL 12 mg/dL Normal [facility] Comment on above: Performed By: #### E BS CMP, EBS LIPID #### [facility] [address] Covid-19 PCR (CVDTB)on SARS-CoV-2 (COVID-19) RNA ERIC+probe Ql (Unsp spec) Detected Critically abnormal NOT DETECTED [facility] Comment on above: Result Comment: This test is not yet approved or cleared by the [place] FDA. When there are no FDA-approved or cleared tests available, and other criteria are met, FDA can make tests available under an emergency access mechanism called an Emergency Use Authorization (EUA). The EUA for this test is supported by the [place] of Health and Human Service's (HHS's) declaration [...] used). Performed By: #### C VDTBH #### [facility] [address] [address] [address] Sierra Almonte CHLAMYDIA/GONOCOCCUS ERIC (SW AB/URINE/PAPon 12-14-2020 Chlamydia trachomatis, ERIC Negative Normal Negative [facility] Comment on above: Performed By: #### C T/NGNA #### [facility] [address] [address] [address] Sierra Almonte Neisseria gonorrhoeae, ERIC Negative Normal Negative [facility] Comment on above: Performed By: #### C T/NGNA #### [facility] [address] [address] [address] Sierra Almonte VAGINITIS/VAGINOSIS DNA PROB Andrew 12-11-2020 Loc species Negative Normal Negative [facility] Comment on above: Performed By: #### V AGINT #### [facility] [address] [address] [address] Sierra Almonte Gardnerella vaginalis Positive Abnormal Negative [facility] Comment on above: Performed By: #### V AGINT #### [facility] [address] [address] [address] Sierra Almonte Trichomonas vaginalis Negative Normal Negative [facility] Comment on above: Performed By: #### V AGINT #### [facility] [address] [address] [address] Sierra Almonte Vital Signs Date Time Vital Sign Value Performing Clinician Vladimir santamaria 03-11-2024 10:10-0500 Body mass index (BMI) [Ratio] 27.95 kg/m2 Raghavendra Christina DO Work Phone: [facility] 03-11-2024 10:10-0500 Body weight 71.58 kg Raghavendra Christina DO Work Phone: [facility] 03-11-2024 10:10-0500 Diastolic blood pressure 68 mm[Hg] Raghavendra Christina DO Work Phone: [facility] 03-11-2024 10:10-0500 Systolic blood pressure 104 mm[Hg] Raghavendra Christina DO Work Phone: [facility] 02-13-2024 13:14-0500 Body height 160 cm Emerita Warren HIRED HAND Work Phone: [facility] 02-13-2024 13:14-0500 Body mass index (BMI) [Ratio] 26.93 kg/m2 Emerita Whittakermor HIRED HAND Work Phone: [facility] 02-13-2024 13:14-0500 Body weight 68.95 kg Emerita Whittakermor HIRED HAND Work Phone: [facility] 02-13-2024 13:14-0500 Diastolic blood pressure 72 mm[Hg] Emerita Whittakermor HIRED HAND Work Phone: [facility] 02-13-2024 13:14-0500 Heart rate 109 /min Emerita Whittakermor HIRED HAND Work Phone: [facility] 02-13-2024 13:14-0500 Systolic blood pressure 119 mm[Hg] Emerita Whittakermor HIRED HAND Work Phone: [facility] 02-11-2024 10:19-0500 Body mass index (BMI) [Ratio] 27.3 kg/m2 Raghavendra Christina DO Work Phone: [facility] 02-11-2024 10:19-0500 Body weight 71.58 kg Raghavendra Christina DO Work Phone: [facility] 02-11-2024 10:19-0500 Diastolic blood pressure 70 mm[Hg] Raghavendra Christina DO Work Phone: [facility] 02-11-2024 10:19-0500 Systolic blood pressure 120 mm[Hg] Raghavendra Christina DO Work Phone: [facility] 01-10-2024 10:44-0500 Body mass index (BMI) [Ratio] 26.3 kg/m2 Raghavendra Christina DO Work Phone: [facility] 01-10-2024 10:44-0500 Body weight 68.95 kg Raghavendra Christina DO Work Phone: [facility] 01-10-2024 10:44-0500 Diastolic blood pressure 74 mm[Hg] Raghavendra Christina DO Work Phone: [facility] 01-10-2024 10:44-0500 Systolic blood pressure 116 mm[Hg] Raghavendra Christina DO Work Phone: [facility] 01-01-2024 11:40-0500 Body mass index (BMI) [Ratio] 25.78 kg/m2 Teresa Buenoor-Nossek RAIL FLAW DETECTOR OPERATOR-ENGINEERING OPERATOR Work Phone: [facility] 01-01-2024 11:40-0500 Body weight 67.59 kg Teresa Jo Ann-Nossek RAIL FLAW DETECTOR OPERATOR-ENGINEERING OPERATOR Work Phone: [facility] 01-01-2024 11:40-0500 Diastolic blood pressure 82 mm[Hg] Teresa Buenoor-Nossek RAIL FLAW DETECTOR OPERATOR-ENGINEERING OPERATOR Work Phone: [facility] 01-01-2024 11:40-0500 Heart rate 99 /min Teresa Jo Ann-Nossek RAIL FLAW DETECTOR OPERATOR-ENGINEERING OPERATOR Work Phone: [facility] 01-01-2024 11:40-0500 Systolic blood pressure 100 mm[Hg] Teresa Buenoor-Nossek RAIL FLAW DETECTOR OPERATOR-ENGINEERING OPERATOR Work Phone: [facility] 11-28-2023 14:53-0400 Body mass index (BMI) [Ratio] 25.57 kg/m2 Raghavendra Christina DO Work Phone: [facility] 11-28-2023 14:53-0400 Body weight 67.04 kg Raghavendra Christina DO Work Phone: [facility] 11-28-2023 14:53-0400 Diastolic blood pressure 74 mm[Hg] Raghavendra Christina DO Work Phone: [facility] 11-28-2023 14:53-0400 Systolic blood pressure 114 mm[Hg] Raghavendra Christina DO Work Phone: [facility] 11-01-2023 15:16-0400 Body mass index (BMI) [Ratio] 25.6 kg/m2 [facility] Nurse [facility] 11-01-2023 15:16-0400 Body weight 67.13 kg [facility] Nurse [facility] 10-18-2023 11:32-0400 Body height 161.9 cm Ysabel Cabral MD Work Phone: [facility] 10-18-2023 11:32-0400 Body mass index (BMI) [Ratio] 26.05 kg/m2 Ysabel Cabral MD Work Phone: [facility] 10-18-2023 11:32-0400 Body weight 68.31 kg Ysabel Cabral MD Work Phone: [facility] 10-18-2023 11:32-0400 Diastolic blood pressure 76 mm[Hg] Ysabel Cabral MD Work Phone: [facility] 10-18-2023 11:32-0400 Heart rate 92 /min Ysabel Cabral MD Work Phone: [facility] 10-18-2023 11:32-0400 Respiratory rate 20 /min Ysabel Cabral MD Work Phone: [facility] 10-18-2023 11:32-0400 Systolic blood pressure 122 mm[Hg] Ysabel Cabral MD Work Phone: [facility] Healthcare Encounters Encounter Date Encounter Type Care Provider Facility Start: 03-11-2024 End: 03-11-2024 Bamboo flowsheet Raghavendra Christina DO Work Phone: [facility] Start: 03-11-2024 End: 03-11-2024 Bamboo flowsheet Raghavendra Christina DO Work Phone: [facility] Start: 03-11-2024 End: 03-11-2024 ambulatory RAGHAVENDRA CHRISTINA Not Available Start: 03-11-2024 End: 03-11-2024 Office outpatient visit 15 minutes Raghavendra Christina DO Work Phone: [facility] Comment on above: 27 weeks gestation o f ; Second trimester Start: 03-10-2024 End: 03-10-2024 Clinisync Result Encounter Raghavendra Christina DO Work Phone: [facility] Unsolicited Start: 03-10-2024 End: 03-10-2024 Clinisync Result Encounter Raghavendra Christina DO Work Phone: [facility] Unsolicited Start: 03-07-2024 End: 03-07-2024 Clinisync Result Encounter Raghavendra Christina DO Work Phone: [facility] External Department Unsolicited Start: 03-07-2024 End: 03-07-2024 Clinisync Result Encounter Raghavendra Christina DO Work Phone: [facility] External Department Unsolicited Start: 02-13-2024 End: 02-13-2024 Bamboo flowsheet Emerita Remediosmor HIRED HAND [facility] Start: 02-13-2024 End: 02-13-2024 Bamboo flowsheet Emerita Remediosmor HIRED HAND Work Phone[facility] Start: 02-13-2024 End: 02-13-2024 ambulatory EMERITA GILLMOR Not Available Start: 02-13-2024 End: 02-13-2024 Office outpatient visit 15 minutes Emerita Warren HIRED HAND Work Phone: [facility] Comment on above: 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] yrs Raghavendra Christina DO Work Phone: [facility] Comment on above: Well woman exam with routine gynecological exam; Second trimester ; 18 weeks gestation of ; Vaginal discharge; STD exposure; Screening, , for anatomic survey; Gastroesophageal reflux in Start: 01-10-2024 End: 01-10-2024 ambulatory RAGHAVENDRA CHRITSINA Not Available Start: 01-01-2024 End: 01-01-2024 Bamboo flowsheet Teresa Buenoor-Nossek RAIL FLAW DETECTOR [employer] Work Phone: [facility] Start: 01-01-2024 End: 01-01-2024 Bamboo flowsheet Teresa Buenoor-Nossek RAIL FLAW DETECTOR OPERATOR-bCODE Work Phone: [facility] Start: 01-01-2024 End: 01-01-2024 ambulatory TERESA Cheri JO ANN-NOSSEK Not Available Start: 01-01-2024 End: 01-01-2024 Office outpatient visit 25 minutes Teresa Buenoor-Nossek RAIL FLAW DETECTOR OPERATOR-ENGINEERING OPERATOR Work Phone: [facility] Comment on above: [...] outpatient visit 15 minutes Teresa Alonzo Johnson RAIL FLAW DETECTOR OPERATOR-ENGINEERING OPERATOR Work Phone: [facility] Comment on above: Attention deficit hy peractivity [...] encounter Ysabel Cabral MD Work Phone: [facility] Start: 10-18-2023 End: 10-18-2023 Bamboo flowsheet Evonne Childress DO Work Phone: [facility] [address] Start: 10-18-2023 End: 10-18-2023 Bamboo flowsheet Evonne Childress DO Work Phone: [facility] Start: 10-18-2023 End: 10-18-2023 Office outpatient visit 15 minutes Ysabel Yessi Marianna MD Work Phone: [facility] Comment on above: Morning sickness (Pr imary Dx) Start: 10-18-2023 End: 10-18-2023 ambulatory YSABEL CABRAL Not Available Start: 10-18-2023 End: 10-18-2023 Office outpatient visit 25 minutes Evonne Childress DO Work Phone: [facility] Comment on above: 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) (Primary Dx); Generalized anxiety disorder (CMS/HCC); Primary insomnia; , unspecified gestational age Start: 09-25-2023 End: 09-25-2023 ambulatory SYABEL CABRAL Not Available Start: 09-25-2023 End: 09-25-2023 ambulatory TERESA Cheri JO ANN-NOSSEK Not Available Start: 2023 End: 2023 ambulatory YSABEL CABRAL Not Available Start: 08-21-2023 End: 08-21-2023 ambulatory YSABEL CABRAL Not Available Start: 08-16-2023 End: 08-16-2023 ambulatory CHLOESUBHASH CARVAJAL Not Available Start: 08-10-2023 End: 08-10-2023 ambulatory YSABEL CABRAL Not Available Start: 08-07-2023 End: 08-07-2023 ambulatory TERESA Cheri JO ANN-NOSSEK Not Available Start: 06-28-2023 End: 06-28-2023 ambulatory EVONNE JAYDON Not Available Start: 06-20-2023 End: 06-20-2023 ambulatory TERESA M JO ANN-NOSSEK Not Available Start: 06-11-2023 End: 06-11-2023 ambulatory TERESA M JO ANN-NOSSEK Not Available Start: 03-21-2023 End: 03-21-2023 ambulatory TERESA M JO ANN-NOSSEK Not Available Start: 11-09-2021 End: 11-09-[address] TALITA DODSON Facility: Start: 05-11-2021 ([facility] C Vac) [facility] Co vid Vaccine Vicky Joe [facility] Start: 05-11-2021 End: 05-11-2021 ambulatory Vicky Segundoекатерина Other [employer] [place] [employer] Other Start: 03-01-2021 End: 03-01-2021 ambulatory CHLOESUBHASH CARVAJAL Facility:[facility] Start: 12-10-2020 End: 12-10-[address] TALITA DODSON Facility:[facility] Procedures Date Procedure Procedure Detail Performing Clinician Start: 03-11-2024 Urnls dip stick/tabl et rgnt non-auto w/o micrscp Raghavendra Christina DO Work Phone: Start: 03-10-2024 ALL CBC WITH AUTO DIFF Generic External Data Provider Start: 03-07-2024 [facility] UA (CLEAN/CATCH) ENGINEERING OPERATOR/MICRO IF IND. Raghavendra Christina DO Work Phone: Start: 02-11-2024 Urnls dip [...] dip stick/tablet rgnt non-auto w/o micrscp Raghavendra Vasquez DO Work Phone: Start: 11-01-2023 Bacteria identified in Urine by Culture Generic External Data Provider Start: 12-18-2022 Cyclic citrullinated peptide antibody Comment on above: Performed By: #### C BC/2A, ESRCRP, CCP, HBC-M, HBSAG, HCV, CA, MG, RHF, URCA #### [facility] [address] [place], [address] Plan of Treatment Date Care Activity Detail Author Start: 01-09-2027 Screening for malign ant neoplasm of cervix [facility] Start: 05-06-2024 End: 05-06-2024 Patient encounter procedure [address] Start: 04-02-2024 End: 04-02-2024 Patient encounter procedure 04/02/2024 11:00 AM EST Office Visit [facility] [address] [facility] [address] [place] [address] Teresa Ornelas, RAIL FLAW DETECTOR OPERATOR-ENGINEERING OPERATOR [address] [facility] [address] [place] [address] [facility] Start: 03-25-2024 End: 03-25-2024 Patient encounter procedure 03/25/2024 10:00 AM EST Routine [facility] [address] [place] [address] Raghavendra Vasquez, DO [address] [place] [address] [facility] Start: 03-11-2024 End: 03-11-2024 Patient encounter procedure 03/11/2024 9:40 AM EST Routine [facility] [address] [place] [address] Raghavendra Vasquez, DO [address] [place] [address] [facility] Start: 02-13-2024 End: 02-13-2024 Patient encounter procedure 02/13/2024 1:00 PM EST [facility] [address] [place] [address] Emerita Warren, HIRED HAND [address] [place] [place] [facility] Start: 02-11-2024 End: 02-10-2025 CBC panel - Blood by Automated count CBC Lab Routine Diabetes mellitus screening Expected: 02/11/2024 (Approximate), Expires: 02/10/2025 [facility] Healthcare Work Phone: Comment on above: Expected: 02/11/2024 (Approximate), Expires: 02/10/2025 Start: 02-11-2024 End: 02-10-2025 Measurement of glucose 1 hour after glucose challenge for glucose tolerance test Glucose tolerance, 1 hour Lab Routine Diabetes mellitus screening Expected: 02/11/2024 (Approximate), Expires: 02/10/2025 [facility] Healthcare Comment on above: Expected: 02/11/2024 (Approximate), Expires: 02/10/2025 Start: 02-11-2024 End: 02-10-2025 US for US OB SCAN FOR GROWTH Imaging Routine 23 weeks gestation of Diabetes mellitus screening Expected: 02/11/2024 (Approximate), Expires: 02/10/2025 [facility] Comment on above: Expected: 02/11/2024 (Approximate), Expires: 02/10/2025 Start: 02-11-2024 End: 02-11-2024 Patient encounter procedure 02/11/2024 9:40 AM EST Routine [facility] [address] [facility] [id number] Raghavendra Vasquez DO [address] [place] [address] [facility] Start: 01-28-2024 End: 01-28-2024 Professional / ancillary services management 01/28/2024 11:00 AM EST Ancillary Procedure [facility] [address] [facility] [address] [facility] Start: 01-10-2024 End: 07-09-2024 [...] AM EST Routine [facility] [address] [facility] [address] Raghavendra Vasquez DO [address] [place] [address] [facility] Start: 01-01-2024 End: 01-01-2024 Patient encounter procedure 01/01/2024 11:30 AM EST Office Visit [facility] [address] [facility] [address] [place] [address] Teresa Ornelas, RAIL FLAW DETECTOR OPERATOR-ENGINEERING OPERATOR [address] [facility] [address] [place] [address] [facility] Start: 12-18-2023 End: 12-18-2023 Patient encounter procedure 12/18/2023 5:30 PM EDT Office Visit [facility] [address] [place] [id number] Evonne Childress, DO [address] [place] [address] [facility] [address] Start: 11-28-2023 End: 11-28-2023 Patient encounter procedure 11/28/2023 2:20 PM EDT Routine [facility] [address] [facility] [place] [address] Raghavendra Vasquez, [address] [facility] [address] [place], [place] [id number] [facility] Start: 11-27-2023 End: 11-27-2023 Patient encounter procedure 11/27/2023 11:00 AM EDT Office Visit [facility] [address] [facility] [address] [place] [address] Teresa Ornelas, RAIL FLAW DETECTOR OPERATOR-ENGINEERING OPERATOR [address] [facility] [address] [place] [address] [facility] Start: 11-01-2023 End: 10-31-2024 ABO/Rh ABO/Rh Lab Routine Missed menses Expected: 11/01/2023 (Approximate), Expires: 10/31/2024 [facility] Comment on above: Expected: 11/01/2023 (Approximate), Expires: 10/31/2024 Start: 11-01-2023 End: 11-01-2023 ambulatory 11/01/2023 2:00 PM EDT Initial [facility] [address] [facility] [place] [id number] [facility] Start: 11-01-2023 End: 10-31-2024 Blood type and Indirect antibody screen panel - Blood Type and screen Lab Routine Missed menses Expected: 11/01/2023 (Approximate), Expires: 10/31/2024 [facility] Healthcare Work Phone: Comment on above: Expected: 11/01/2023 (Approximate), Expires: 10/31/2024 Start: 11-01-2023 End: 10-31-2024 US Pelvis transvaginal US OB transvaginal Imaging Routine Missed menses Expected: 11/01/2023 (Approximate), Expires: 10/31/2024 [facility] Comment on above: Expected: 11/01/2023 (Approximate), Expires: 10/31/2024 Start: 11-01-2023 End: 11-01-2023 Professional / ancillary services management 11/01/2023 1:30 PM EDT Ancillary Procedure [facility] [address] [place] [address] [place] [phone] [facility] Start: 10-28-2023 Influenza vaccination Influenza Vacc ine (#1) [facility] Start: 10-18-2023 End: 10-18-2023 Patient encounter procedure 10/18/2023 11:40 AM EDT Office Visit [facility] [address] [place] [phone] Ysabel Cabral MD [address] [place], [place] [id number] [facility] Start: 10-18-2023 End: 10-18-2023 Patient encounter procedure 10/18/2023 10:30 AM EDT Procedure Visit [facility] [address] [place] [phone] Evonne Childress DO [address] [place], [place] [id number] Arrived [facility] Comment on above: Arrived Start: 09-10-2017 Screening for malign ant neoplasm of cervix [facility] Start: 09-10-2008 Screening for malign ant neoplasm of cervix Pap Smear [facility] Bacteria identified in Urine by Culture Urine culture Microbiology Routine Missed menses Ordered: 11/01/2023 [facility] Comment on above: Ordered: 11/01/2023 CBC W Auto Different ial panel - Blood CBC and differential Lab Routine Missed menses Ordered: 11/01/2023 [facility] Comment on above: Ordered: 11/01/2023 CHLAMYDIA TRACHOMATI S (GENITO/STI) CHLAMYDIA TRACHOMATIS (GENITO/STI) Lab Routine STD exposure Ordered: 01/10/2024 [facility] Comment on above: Ordered: 01/10/2024 Cytology Cervical or vaginal smear or scraping study Pap Smear Pathology and Cytology Routine Well woman exam with routine gynecological exam Ordered: 01/10/2024 [facility] Comment on above: Ordered: 01/10/2024 Hemoglobin A1c/Hemoglobin.total in Blood Hemoglobin A1c Lab Routine Missed menses Ordered: 11/01/2023 [facility] Comment on above: Ordered: 11/01/2023 Hepatitis B virus surface Ag [Presence] in Serum or Plasma by Immunoassay Hepatitis B surface antigen Lab Routine Missed menses Ordered: 11/01/2023 [facility] Comment on above: Ordered: 11/01/2023 Hepatitis C virus Ab [Presence] in Serum or Plasma by Immunoassay Hepatitis C antibody Lab Routine Missed menses Ordered: 11/01/2023 [facility] Comment on above: Ordered: 11/01/2023 HIV-1/HIV-2 antigen/antibody combination immunoassay HIV-1 and HIV-2 antibodies Lab Routine Missed menses Ordered: 11/01/2023 [facility] Comment on above: Ordered: 11/01/2023 Human papilloma viru s DNA [Presence] in Unspecified specimen by Probe with amplification HPV DNA probe, amplified Microbiology Routine Well woman exam with routine gynecological exam Ordered: 01/10/2024 [facility] Comment on above: Ordered: 01/10/2024 Neisseria gonorrhoea e DNA [Presence] in Unspecified specimen by ERIC with probe detection Neisseria gonorrhea DNA probe, direct Lab Routine STD exposure Ordered: 01/10/2024 [facility] Comment on above: Ordered: 01/10/2024 Reagin Ab [Presence] in Serum by RPR RPR Lab Routine Missed menses Ordered: 11/01/2023 [facility] Comment on above: Ordered: 11/01/2023 Rubella antibody, IgG Rubella an tibody, IgG Lab Routine Missed menses Ordered: 11/01/2023 [facility] Comment on above: Ordered: 11/01/2023 SURESWAB(R) ADVANCED VAGINITIS PLUS, TMA SURESWAB(R) ADVANCED VAGINITIS PLUS, TMA Pathology and Cytology Routine Vaginal discharge Ordered: 01/10/2024 [facility] Work Phone: Comment on above: Ordered: 01/10/2024 Immunizations Immunization Date Immunization Notes Care Provider Corrina hanson 05-11-2021 COVID-19 En Joe Other [employer] Other 10-02-2016 influenza, injectabl e, quadrivalent, preservative free Evonne Jaydon DO Work Phone: [facility] 10-02-2016 influenza virus vaccine, unspecified formulation Evonne Jaydon DO Work Phone: [facility] 10-13-2015 influenza, injectabl e, quadrivalent, preservative free Evonne Jaydon DO Work Phone: [facility] 12-02-2014 influenza, seasonal, injectable, preservative free Evonne Jaydon DO Work Phone: [facility] Payers Date Payer Category Payer Medicaid [facility] MEDICAID [place] [id number] 2021-Present [address] [place] [id number] 2021 Medicaid (Managed Care) [employer] [id number] 1987 Unknown [id number] 2.16840.1.146920.3.579.2. 593 1987 Unknown [id number] 2.16.840.1.540655.3.579.2. 593 1987 Unknown [id number] 2.16840.1.717063.3.579.2. 593 1987 Unknown [id number] 2.16.840.1.888476.3.579.2. 1258 1987 Unknown [id number] 2.16.840.1.479879.3.579.2. 1258 1987 Unknown [id number] 2.16.840.1.614612.3.579.2. 1258 1987 Unknown [id number] 2.16.840.1.727855.3.579.2. 1258 1987 Unknown [id number] 2..840.1.932763.3.579.2. 1258 1987 Unknown [id number] 2..840.1.532652.3.579.2. 1258 1987 Unknown [id number] 2.840.1.580433.3.579.2. 1258 1987 Unknown [id number] 2..840.1.613505.3.579.2. 1258 1987 Unknown [id number] 2.840.1.535493.3.579.2. 1258 1987 Unknown [id number] 2..840.1.188055.3.579.2. 1258 1987 Unknown [id number] 2.840.1.357526.3.579.2. 1258 1987 Unknown [id number] 2..840.1.974973.3.579.2. 1258 1987 Unknown [id number] 2..840.1.547694.3.579.2. 1258 1987 Unknown [id number] 2.16.840.1.308358.3.579.2. 1258 1987 Unknown [id number] 2..840.1.833391.3.579.2. 1258 1987 Unknown [id number] 2.16.840.1.053899.3.579.2. 1259 1987 Unknown [id number] 2.16.840.1.913381.3.579.2. 9 1985 Unknown [id number] 1987 Unknown [id number] 1987 Unknown [id number] 1987 Unknown [id number] 1987 Unknown [id number] 1959 Unknown [id number] Social History Date Type Detail Facility Unknown if ever smoked [facility] Other Start: 2022 End: 01-01-2024 Sex Assigned At [employer] Other Start: 12-22-2022 Tobacco smoking stat [facility] Never smoked tobacco [facility] Start: 12-22-2022 [...] file [facility] Start: 01-01-2024 End: 03-11-2024 Alcoholic beverage intake Ex-drinker (finding) [facility] Start: 01-01-2024 Alcohol Comment I have a glass of wine or 2 glasses each evening with dinner [facility] Clinical Notes 05-11-2021 to 03-11-2024 Shelli Lundberg, COMMUNITY ADMINISTRATOR - 03/11/2024 9:40 AM BACILIOShelli Lundberg, COMMUNITY ADMINISTRATOR - 02/11/2024 9:40 AM Mihir Malave, COMMUNITY ADMINISTRATOR - 01/10/2024 10:10 AM America Ornelas, RAIL FLAW DETECTOR OPERATOR-ENGINEERING OPERATOR - 01/01/2024 11:30 AM EST Note Date & Type Note Facility 03-11-2024 History of Present illness Narrative Reason for Appointment: Patient ID: Tiki Matson is a 38 y.o. female who presents for Routine Visit Patient presents today for Return OB appointment. MEDICATIONS Current Outpatient Medications Medication Instructions albuterol HFA (ProAir HFA) 90 mcg/act inhaler cyclobenzaprine (Flexeril) 5 MG tablet 1/2-1 po q hs iron polysaccharides (PROFE) 391.3 mg, Oral, Daily omeprazole (PRILOSEC) 20 mg, Oral, Daily before breakfast, Do not crush or chew. ALLERGIES Allergies Allergen Reactions Amitriptyline Other Reaction(s): Other (See Comments) Extreme drowsiness Aspirin Other Reaction(s): hives,difficulty breathing Cyclobenzaprine Diclofenac Unknown Ibuprofen Other Reaction(s): All NSAIDS, hives Lamotrigine Other Reaction(s): rash-per patient report Meloxicam Unknown Naproxen Unknown Nsaids Other Reaction(s): Unknown Zoloft [Sertraline] PROBLEMS Active Ambulatory Problems Diagnosis Date Noted Attention deficit hyperactivity disorder (ADHD), combined type ([facility]) 07/04/2022 Episodic mood disorder ([facility]) 07/04/2022 Generalized anxiety disorder ([facility]) 07/04/2022 Panic disorder ([facility]) 07/04/2022 Acquired scoliosis 09/09/2016 Allergic rhinitis 10/16/2019 Anxiety 01/31/2020 Asthma ([facility]) 12/31/2014 Chronic fatigue syndrome 07/03/2016 Chronic gastritis without bleeding 12/28/2022 Irritable bowel syndrome 07/03/2016 Migraine without aura and without status migrainosus, not intractable ([facility]) 09/19/2017 Mild intermittent asthma ([facility]) 02/28/2021 Primary localized osteoarthrosis of ankle and foot 03/13/2019 Vitamin D deficiency 12/28/2022 Headache 06/28/2023 Inadequate sleep hygiene 06/28/2023 Migraine (CMS/HCC) 06/28/2023 Tenosynovitis of foot 06/28/2023 Nausea and vomiting 06/28/2023 Common migraine with intractable migraine ([facility]/HCC) 06/28/2023 Pain in limb 06/28/2023 Chronic tension-type headache, not intractable 06/28/2023 Sleep disturbance 06/28/2023 Insomnia, unspecified 06/28/2023 Other problems related to lifestyle 06/28/2023 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 08/10/2023 Resolved Ambulatory Problems Diagnosis Date Noted No Resolved Ambulatory Problems Past Medical History: Diagnosis Date Adenoma of left breast ADHD (attention deficit hyperactivity disorder) ([facility]) Anemia Back pain Common migraine ([facility]/HCC) 08/17/2015 Depression ([facility]) H/O colonoscopy H/O umbilical hernia repair Insomnia 06/25/2017 Migraines ([facility]) Nausea with vomiting 08/17/2015 Tendonitis of right hand Tension headache 08/17/2015 HISTORY PAST MEDICAL HISTORY SOCIAL HISTORY Past Medical History: Diagnosis Date Adenoma of left breast removed 2013 ADHD (attention deficit hyperactivity disorder) ([facility]) Anemia Anxiety Asthma ([facility]) Back pain Common migraine ([facility]/HCC) 08/17/2015 Depression ([facility]) H/O colonoscopy 2012 H/O umbilical hernia repair 2008 Headache 08/17/2015 Inadequate sleep hygiene 04/23/2018 Insomnia 06/25/2017 Migraine (CMS/HCC) 03/22/2017 Migraines ([facility]) Nausea with vomiting 08/17/2015 Pain in limb [...] nursing note reviewed. Exam conducted with a driver operator present. Vitals: Estimated body mass index is 27.95 kg/m as calculated from the following: Height as of 02/13/24: 5' 3 . Weight as of this encounter: 157 lb 12.8 oz. BP: 104/68 Patient's last menstrual period was 09/01/2023. ASSESSMENT & PLAN ICD-10-CM 1. 27 weeks gestation of Z3A.27 POCT urinalysis dipstick manually resulted 2. Second trimester Z34.92 POCT urinalysis dipstick manually resulted Return OB: Patient presents today for a routine obstetrics appointment. Patient is currently 27w3d . Patient states she is doing well but has complaints of being tired due to current . Patient has verbalizes frequent movement. labor precautions was discussed/given and patient was instructed to perform kick counts three times a day. Orders Placed This Encounter Procedures POCT urinalysis dipstick manually resulted Follow Up: Patient is to return to office in 2 week for routine OB appointment. Documented by Shelli Lundberg LPN on behalf of: Raghavendra Vasquez DO documented in this encounter [facility] 02-11-2024 History of Present illness Narrative Reason [...] Attention deficit hyperactivity disorder (ADHD), combined type ([facility]) 07/04/2022 Episodic mood disorder ([facility]) 07/04/2022 Generalized anxiety disorder ([facility]) 07/04/2022 Panic disorder ([facility]) 07/04/2022 Acquired scoliosis 09/09/2016 Allergic rhinitis 10/16/2019 Anxiety 01/31/2020 Asthma ([facility]) 12/31/2014 Chronic fatigue syndrome 07/03/2016 Chronic gastritis without bleeding 12/28/2022 Irritable bowel syndrome 07/03/2016 Migraine without aura and without status migrainosus, not intractable ([facility]) 09/19/2017 Mild intermittent asthma ([facility]) 02/28/2021 Primary localized osteoarthrosis of ankle and foot 03/13/2019 Vitamin D deficiency 12/28/2022 Headache 06/28/2023 Inadequate sleep hygiene 06/28/2023 Migraine ([facility]CC) 06/28/2023 Tenosynovitis of foot 06/28/2023 Nausea and vomiting 06/28/2023 Common migraine with intractable migraine ([facility]) 06/28/2023 Pain in limb 06/28/2023 Chronic tension-type headache, not intractable 06/28/2023 Sleep disturbance 06/28/2023 Insomnia, unspecified 06/28/2023 Other problems related to lifestyle 06/28/2023 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 08/10/2023 Resolved Ambulatory Problems Diagnosis Date Noted No Resolved Ambulatory Problems Past Medical History: Diagnosis Date Adenoma of left breast ADHD (attention deficit hyperactivity disorder) ([facility]) Anemia Back pain Common migraine ([facility]) 08/17/2015 Depression ([facility]) H/O colonoscopy H/O umbilical hernia repair Insomnia 06/25/2017 Migraines ([facility]) Nausea with vomiting 08/17/2015 Tendonitis of right hand Tension headache 08/17/2015 HISTORY PAST MEDICAL HISTORY SOCIAL HISTORY Past Medical History: Diagnosis Date Adenoma of left breast removed 2013 ADHD (attention deficit hyperactivity disorder) ([facility]) Anemia Anxiety Asthma ([facility]) Back pain Common migraine ([facility]) 08/17/2015 Depression ([facility]) H/O colonoscopy 2012 H/O umbilical hernia repair 2008 Headache 08/17/2015 Inadequate sleep hygiene 04/23/2018 Insomnia 06/25/2017 Migraine (CMS/HCC) 03/22/2017 Migraines ([facility]) Nausea with vomiting 08/17/2015 Pain in limb [...] nursing note reviewed. Exam conducted with a driver operator present. Vitals: Estimated body mass index is [...] Raghavendra Vasquez DO documented in this encounter [facility] 01-10-2024 History of Present illness Narrative [...] Attention deficit hyperactivity disorder (AD[place]), combined type [place] 07/04/2022 Episodic mood disorder ([facility]) 07/04/2022 Generalized anxiety disorder ([facility]) 07/04/2022 Panic disorder ([facility]) 07/04/2022 Acquired scoliosis 09/09/2016 Allergic rhinitis 10/16/2019 Anxiety 01/31/2020 Asthma ([facility]) 12/31/2014 Chronic fatigue syndrome 07/03/2016 Chronic gastritis without bleeding 12/28/2022 Irritable bowel syndrome 07/03/2016 Migraine without aura and without status migrainosus, not intractable [place] 09/19/2017 Mild intermittent asthma ([facility]) 02/28/2021 Primary localized osteoarthrosis of ankle and foot 03/13/2019 Vitamin D deficiency 12/28/2022 Headache 06/28/2023 Inadequate sleep hygiene 06/28/2023 Migraine ([facility]) 06/28/2023 Tenosynovitis of foot 06/28/2023 Nausea and vomiting 06/28/2023 Common migraine with intractable migraine ([facility]) 06/28/2023 Pain in limb 06/28/2023 Chronic tension-type headache, not intractable 06/28/2023 Sleep disturbance 06/28/2023 Insomnia, unspecified 06/28/2023 Other problems related to lifestyle 06/28/2023 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 08/10/2023 Resolved Ambulatory Problems Diagnosis Date Noted No Resolved Ambulatory Problems Past Medical History: Diagnosis Date Adenoma of left breast ADHD (attention deficit hyperactivity disorder) ([facility]) Anemia Back pain Common migraine ([facility]) 08/17/2015 Depression ([facility]) H/O colonoscopy H/O umbilical hernia repair Insomnia 06/25/2017 Migraines ([facility]) Nausea with vomiting 08/17/2015 Tendonitis of right hand Tension headache 08/17/2015 HISTORY PAST MEDICAL HISTORY SOCIAL HISTORY Past Medical History: Diagnosis Date Adenoma of left breast removed 2013 ADHD (attention deficit hyperactivity disorder) [place] Anemia Anxiety Asthma ([facility]) Back pain Common migraine ([facility] 08/17/2015 Depression ([facility] H/O colonoscopy 2013 H/O umbilical hernia repair 2008 Headache 08/17/2015 Inadequate sleep hygiene 04/23/2018 Insomnia 06/25/2017 Migraine ([facility]) 03/22/2017 Migraines ([facility]) Nausea with vomiting 08/17/2015 Pain in limb [...] nursing note reviewed. Exam conducted with a driver operator present. Vitals: Estimated body mass index is [...] Raghavendra Vasquez DO documented in this encounter [facility] 01-01-2024 History of Present illness Narrative [...] visit. 20 weeks. 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 Psychosocial stressors include . SUBJECTIVE: PAST MEDICAL HISTORY: Past Medical History: Diagnosis Date Adenoma of left breast removed 2013 ADHD (attention deficit hyperactivity disorder) ([facility]) Anemia Anxiety Asthma ([facility]) Back pain Common migraine ([facility]) 08/17/2015 Depression ([facility]) H/O colonoscopy 2012 H/O umbilical hernia repair 2007 Headache 08/17/2015 Inadequate sleep hygiene 04/23/2018 Insomnia 06/25/2017 Migraine ([facility]) 03/22/2017 Migraines ([facility]) Nausea with vomiting 08/17/2015 Pain in limb [...] and Time Memory/Concentration Short term intact and mcc intact Insight/Judgement Fair OBJECTIVE: Visit Vitals LMP [...] Visit time :32min documented in this encounter [facility] 11-28-2023 History of Present illness Narrative [...] Attention deficit hyperactivity disorder (ADHD), combined type ([facility]) 07/04/2022 Episodic mood disorder ([facility]) 07/04/2022 Generalized anxiety disorder ([facility]) 07/04/2022 Panic disorder ([facility]) 07/04/2022 Acquired scoliosis 09/09/2016 Allergic rhinitis 10/16/2019 Anxiety 01/31/2020 Asthma ([facility]) 12/31/2014 Chronic fatigue syndrome 07/03/2016 Chronic gastritis without bleeding 12/28/2022 Irritable bowel syndrome 07/03/2016 Migraine without aura and without status migrainosus, not intractable ([facility]) 09/19/2017 Mild intermittent asthma ([facility]) 02/28/2021 Primary localized osteoarthrosis of ankle and foot 03/13/2019 Vitamin D deficiency 12/28/2022 Headache 06/28/2023 Inadequate sleep hygiene 06/28/2023 Migraine ([facility]) 06/28/2023 Tenosynovitis of foot 06/28/2023 Nausea and [...] left breast ADHD (attention deficit hyperactivity disorder) ([facility]) Anemia Back pain Common migraine (CMS/HCC) 08/17/2015 Depression (CMS/HCC) H/O colonoscopy H/O umbilical hernia repair Insomnia 06/25/2017 Migraines (CMS/HCC) Nausea with vomiting 08/17/2015 Tendonitis of right hand Tension headache 08/17/2015 HISTORY PAST MEDICAL HISTORY SOCIAL HISTORY Past Medical History: Diagnosis Date Adenoma of left breast removed 2013 ADHD (attention deficit hyperactivity disorder) (CMS/HCC) Anemia Anxiety Asthma ([facility]) Back pain Common migraine (CMS/HCC) 08/17/2015 Depression ([facility]) H/O colonoscopy 2012 H/O umbilical hernia repair [...] nursing note reviewed. Exam conducted with a driver operator present. Vitals: Estimated body mass index is [...] or undercooked meat, and stay away from [facility]. Patient has been consulted regarding any [...] Raghavendra Vasquez DO documented in this encounter [facility] 11-27-2023 History of Present illness Narrative [...] work done. 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 Psychosocial stressors include . SUBJECTIVE: PAST MEDICAL HISTORY: Past Medical History: Diagnosis Date Adenoma of left breast removed 2013 ADHD (attention deficit hyperactivity disorder) ([facility]) Anemia Anxiety Asthma ([facility]) Back pain Common migraine ([facility]) 08/17/2015 Depression (CMS/HCC) H/O colonoscopy 2012 H/O umbilical hernia repair 2007 Headache 08/17/2015 Inadequate sleep hygiene 04/23/2018 Insomnia 06/25/2017 Migraine (CMS/HCC) 03/22/2017 Migraines ([facility]) Nausea with vomiting 08/17/2015 Pain in limb [...] and Time Memory/Concentration Short term intact and mcc intact Insight/Judgement Good OBJECTIVE: Visit Vitals LMP [...] F/U 6 weeks documented in this encounter [facility] 11-01-2023 History of Present illness Narrative [...] the following prescription(s): albuterol hfa, albuterol hfa, cttaywmswc-wcpvsgpfdgyek-mwukvqsm , cyanocobalamin, d3-1000, dicyclomine, fluticasone, onabotulinumtoxina, ondansetron, promethazine, sertraline, and tizanidine. Medical History: Active Ambulatory Problems Diagnosis Date Noted Attention deficit hyperactivity disorder (ADHD), combined type (CMS/HCC) 07/04/2022 Episodic mood disorder (CMS/HCC) 07/04/2022 Generalized anxiety disorder (CMS/HCC) 07/04/2022 Panic disorder ([facility]) 07/04/2022 Acquired scoliosis 09/09/2016 Allergic rhinitis 10/16/2019 Anxiety 01/31/2020 Asthma ([facility]/H[facility]) 12/31/2014 Chronic fatigue syndrome 07/03/2016 Chronic gastritis without bleeding 12/28/2022 Irritable bowel syndrome 07/03/2016 Migraine without aura and without status migrainosus, not intractable ([facility]) 09/19/2017 Mild intermittent asthma ([facility]) 02/28/2021 Primary localized osteoarthrosis of ankle and foot 03/13/2019 Vitamin D deficiency 12/28/2022 Headache 06/28/2023 Inadequate sleep hygiene 06/28/2023 Migraine ([facility]) 06/28/2023 Tenosynovitis of foot 06/28/2023 Nausea and vomiting 06/28/2023 Common migraine with intractable migraine ([facility]) 06/28/2023 Pain in limb 06/28/2023 Chronic tension-type headache, not intractable 06/28/2023 Sleep disturbance 06/28/2023 Insomnia, unspecified 06/28/2023 Other problems related to lifestyle 06/28/2023 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 08/10/2023 Resolved Ambulatory Problems Diagnosis Date Noted No Resolved Ambulatory Problems Past Medical History: Diagnosis Date Adenoma of left breast ADHD (attention deficit hyperactivity disorder) ([facility]) Anemia Back pain Common migraine ([facility]) 08/17/2015 Depression ([facility]) H/O colonoscopy H/O umbilical hernia repair Insomnia 06/25/2017 Migraines ([facility]) Nausea with vomiting 08/17/2015 Tendonitis of right [...] pt to schedule US w/tbh. Pt desired [place] [facility] advised pt to wait until 10 [...] An Duffy MA documented in this encounter [facility] 10-19-2023 Telephone encounter Note Pt needs a letter stating that she was seen in office on 10/17 Please Fax to [phone] [facility] 10-19-2023 Miscellaneous Notes Pt needs a letter stating that she was seen in office on 10/17 Please Fax to [phone] documented in this encounter [facility] 10-18-2023 History of Present illness Narrative [...] 2 puffs, Inhalation, Every 4 hours PRN meoanigmjf-pnlavssvhdbiu-fvfvuffx 50-325-40 MG tablet TAKE 1 TABLET BY [...] for further guidance. documented in this encounter [facility] 10-18-2023 History of Present illness Narrative Images from the original note were not included. Mendoza Matson is a 38 y.o. female. Patient was to be seen for botox injections but she just found out that she is . She was not planning but not preventing . 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 She has been receiving the Botox injections [...] during those pregnancies. 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 Objective Neurological Exam Physical Exam No chief complaint on file. Mendoza Matson, 38 y.o., female HPI Past Medical History: Diagnosis Date Adenoma of left breast removed 2013 ADHD (attention deficit hyperactivity disorder) ([facility]) Anemia Anxiety Asthma ([facility]) Back pain Common migraine ([facility]) 08/17/2015 Depression ([facility]) H/O colonoscopy 2012 H/O umbilical hernia repair 2007 Headache 08/17/2015 Inadequate sleep hygiene 04/23/2018 Insomnia 06/25/2017 Migraine ([facility]) 03/22/2017 Migraines ([facility]) Nausea with vomiting 08/17/2015 Pain in limb [...] Return to clinic: documented in this encounter [facility] 08-03-2021 Note FINDINGS: Sonographic evaluation targeted to the painful palpable areas within the right breast. Multiple subcentimeter benign simple cysts within the right upper quadrant. Mild periareolar ductal dilatation (3-4 mm diameter). No suspicious solid nodule or mass. IMPRESSION: BI RADS 2 : BENIGN FINDINGS Report reported and signed by Alexei Smith on 08/03/2021 1626 [facility] Time Study Statistician 05-11-2021 Evaluation note Encounter Date Diagnosis Assessment Notes Apr, Encounter for immunization (ICD-10 - Z23) Patient presents for COVID-19 vaccination #2. Pre-screening form answers evaluated with patient. Patient denies current illness or allergic reaction to component of COVID-19 vaccine. Patient provided with current copy of EUA. [facility] Other Evaluation note* Diagnosis Attention deficit hyperactivity disorder (ADHD), combined type (CMS/HCC) Generalized anxiety disorder (CMS/HCC) Generalized anxiety disorder documented in this encounter [facility]* Diagnosis First trimester state, incidental documented in this encounter [facility]* Diagnosis 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)- Primary Generalized anxiety disorder (CMS/HCC) Generalized anxiety disorder Primary insomnia Persistent disorder of initiating or maintaining sleep , unspecified gestational age documented in this encounter [facility]* Diagnosis Generalized anxiety disorder (CMS/HCC)- Primary Generalized anxiety disorder documented in this encounter [facility]* Diagnosis Well woman exam with routine gynecological exam Routine gynecological examination Second trimester state, incidental 18 weeks gestation of Vaginal discharge Leukorrhea, not specified as infective STD exposure Screening, , for anatomic survey Encounter for anatomic survey Gastroesophageal reflux in documented in this encounter [facility]* Diagnosis 23 weeks gestation of Second trimester state, incidental Diabetes mellitus screening Screening for diabetes mellitus [facility]* Diagnosis Morning sickness- Primary Mild hyperemesis gravidarum, unspecified as to episode of care documented in this encounter [facility]* Diagnosis Missed menses Other migraine without status migrainosus, not intractable (CMS/HCC) [facility]* Diagnosis 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)- Primary , unspecified gestational age Primary insomnia Persistent disorder of initiating or maintaining sleep Generalized anxiety disorder (CMS/HCC) Generalized anxiety disorder [facility]* Diagnosis 27 weeks gestation of Second trimester state, incidental [facility] Narr[facility] - Reported* Type Description Date Medical History DEPRESSIVE DISORDER Medical History ASTHMA Medical History ANXIETY Medical History MIGRAINES Medical History BIPOLAR Medical History BACK PAIN Medical History ANEMIA Surgical History umbilical herniorrhaphy 2007 Surgical History colposcopy 2012 Surgical History adenoma removed from left breas t Surgical History tibial and fibular sesmoid 10-15 [employer] Other Summary Purpose Family History No Family [...] content) DATE CREATED AUTHOR 05/25/2021 [facility] DATE CREATED AUTHOR AUTHOR'S ORGANIZ ATION 08/04/2021 [facility] Specialist DATE CREATED AUTHOR AUTHOR'S ORGANIZ ATION 11/23/2021 [facility] DATE CREATED AUTHOR AUTHOR'S ORGANIZ ATION 12/19/2022 [facility] DATE CREATED AUTHOR AUTHOR'S ORGANIZ ATION 03/14/2024 [facility] dical Specialists EPIC REASON FOR VISIT (unrecogniz ed section and content) Reason Comments Routine Visit Reason Comments Med Management Follow-up Reason Comments Well Women Visit Routine Visit STI Screening Reason Comments Nausea/Vomiting In Reason Comments Amenorrhea Reason Comments Migraine Care Teams (unrecognized sec tion and content) Brick Picker Relationship Specialty Start Date End Date Ysabel Cabral MD [address] [place] [address] PCP - General Family Medicine 07/29/22 Ale Zaldivar MD [address] [place] [address] PCP - [facility] 05/28/23 Brick Picker Relationship Specialty Start Date End Date Ysabel Cabral MD [address] [place] [address] PCP - General Family Medicine 07/29/22 Ale Zaldivar MD [address] [place] [address] PCP - [facility] 05/28/23 Brick Picker Relationship Specialty Start Date End Date Ysabel Cabral MD [address] [place] [address] PCP - General Family [facility] 07/29/22 Ale Zaldivar MD [address] [place] [address] PCP - [facility] 05/28/23 Brick Picker Relationship Specialty Start Date End Date Ysabel Cabral MD [address] [place] [address] PCP - General Family [facility] 07/29/22 Ale Zaldivar MD [address] [place] [address] PCP - [facility] 05/28/23 Brick Picker Relationship Specialty Start Date End Date Ysabel Cabral MD [address] [place] [address] PCP - General Family Medicine 07/29/22 Ale Zaldivar MD [address] [place] [address] PCP - [facility] 05/28/23 Brick Picker Relationship Specialty Start Date End Date Ysabel Cabral MD [address] [place] [address] PCP - General Family Medicine 07/29/22 Ale Zaldivar MD [address] [place] [address] PCP - [facility] 05/28/23 Brick Picker Relationship Specialty Start Date End Date Ysabel Cabral MD [address] [place] [address] PCP - General Family [facility] 07/29/22 Chloe Carvajal NP [address] [place] [address] PCP - [facility] 11/27/23 Brick Picker Relationship Specialty Start Date End Date Ysabel Cabral MD [address] [place] [address] PCP - General Family Medicine 07/29/22 Chloe Carvajal NP [address] [facility] [place] [address] PCP - [facility] 11/27/23 Brick Picker Relationship Specialty Start Date End Date Ysabel Cabral MD [address] [place] [address] PCP - General Family Medicine 07/29/22 Chloe Carvajal NP [address] [place] [address] PCP - [facility] 11/27/23 Brick Picker Relationship Specialty Start Date End Date Ysabel Cabral MD [address] [place] [address] PCP - General Family Medicine 07/29/22 Chloe Carvajal, HIRED HAND PCP - [facility] 11/27/23 Brick Picker Relationship Specialty Start Date End Date Ysabel Cabral MD [address] [place] [address] PCP - [facility] Family Medicine 07/29/22 Chloe Carvajal, HIRED HAND PCP - [facility] 11/27/23 Brick Picker Relationship Specialty Start Date End Date Ysabel Cabral MD [address] [place] [address] PCP - General Family Medicine 07/29/22 Ale Zaldivar MD [address] [place] [address] PCP - [facility] 05/28/23 Brick Picker Relationship Specialty Start Date End Date Ysabel Cabral MD [address] [place] [address] PCP - General Family Medicine 07/29/22 Ale Zaldivar MD [address] [place] [address] PCP - [facility] 05/28/23 Brick Picker Relationship Specialty Start Date End Date Ysabel Cabral MD [address] [place] [address] PCP - General Family Medicine 07/29/22 Ale Zaldivar MD [address] [place] [address] PCP - [facility] 05/28/23 Brick Picker Relationship Specialty Start Date End Date Ysabel Cabral MD [address] [place] [address] PCP - General Family Medicine 07/29/22 Chloe Carvajal NP PCP - [facility] 11/27/23 Brick Picker Relationship Specialty Start Date End Date Ysabel Cabral MD [address] [place] [address] PCP - General Family [facility] 07/29/22 Ale Zaldivar MD [address] [place] [address] PCP - [facility] 05/28/23 Brick Picker Relationship Specialty Start Date End Date Ysabel Cabral MD [address] [place] [address] PCP - General Family [facility] 07/29/22 Ale Zaldivar MD [address] [place] [address] PCP - [facility] 05/28/23 Brick Picker Relationship Specialty Start Date End Date Ysabel Cabral MD [address] [place] [address] PCP - [facility] Family [facility] 07/29/22 Chloe Carvajal NP [facility] 11/27/23 Brick Picker Relationship Specialty Start Date End Date Ysabel Cabral MD [address] [place] [facility] [place] [address] PCP [facility] 07/29/22 Chloe Carvajal NP [facility] 11/27/23 Brick Picker Relationship Specialty Start Date End Date Ysabel Cabral MD [address] [place] [facility] [place] [address] [facility] 07/29/22 Chloe Carvajal NP [facility] 11/27/23 Brick Picker Relationship Specialty Start Date End Date Ysabel Cabral MD [address] [place] [facility] [place] [address] [facility] 07/29/22 Chloe Carvajal NP [facility] 11/27/23 FOR RECORDS PERTAINING TO PATIENTS [...] BE BASED ON THE PRIMARY CLINICAL RECORDS. [facility] [employer] [facility]. provides no warranty or guarantee of the accuracy or completeness of information in this document.
--- NOTE | 2024-03-25 11:00 | US_ITS ---
[address] [address] Patient Name: JESSICA MOELELR MRN: [id number] date: 1985 Sex: F Assigned Patient Location: US Current Patient Location: US Accession/Order Number: [id number] Exam Date: 03/25/2024 11:02 Report Date: 03/25/2024 11:47 At the request of: ELIUD RIVERO Procedure: US OB growth EXAMINATION: US OB growth HISTORY: Diabetes Mellitus COMPARISON: No relevant comparison available. FINDINGS: Heart Rate: 137.06 bpm Amniotic Fluid Volume: 15.8 cm, largest fluid pocket 5.7 cm Number: 1 Position: Breech presentation, longitudinal lie BIOMETRY: BPD: 7.68 cm; 30 weeks 6 days; 79.30 % HC: 28.86 cm; 31 weeks 5 days; 82.40 % AC: 25.87 cm; 30 weeks 0 days; 62.70 % FL: 5.53 cm; 29 weeks 1 day; 27.30 % EFW: 1487.42 g; 57 %, 3 lbs. 4 oz. FL/AC: 21.38 FL/BPD: 72.06 HC/AC: 1.12 GESTATIONAL AGE: Age by EDC: 29 weeks 3 days RINA by EDC: 2024-06-07 Age by US: 30 weeks 3 days RINA by US: 2024-05-31 US/US OB growth IMPRESSION: Normal interval growth Electronically authenticated by: RAMÍREZ NAVA Date: 03/25/2024 11:47
== END 2024-03-25 10:50 | disposition home or self-care (01) ==
LOC: US 10:49
PROVIDERS: PCP Family Medicine; Visit Provider Obstetrics & Gynecology
DX: Z13.1 Encounter for screening for diabetes mellitus (principal); Z3A.29 29 weeks gestation of pregnancy
CPT/HCPCS: 76816

== ENCOUNTER 2024-04-15 15:13 | Outpatient (OUT) | payer OTHER, SELFPAY ==
--- NOTE | 2024-04-15 15:19 | US_ITS ---
The [place] [id number] Patient Name: JESSICA MOELLER MRN: [id number] date: 1985 Sex: F Assigned Patient Location: [facility] Current Patient Location: [facility] Accession/Order Number: [id number] Exam Date: 04/15/2024 16:26 Report Date: 04/15/2024 16:31 At the request of: ELIUD RIVERO DO Procedure: US OB BPP w non-stress BIOPHYSICAL PROFILE: CLINICAL INFORMATION: Multigravida of advanced maternal age TECHNIQUE: Multiple ultrasonographic scans of the lower abdomen and pelvis were obtained. The fetus is in the cephalic presentation. The measurements are consistent with a 33 week 3 day gestation. The heart rate [id number] beats per minute. FINDINGS: TONE: 1 or more episodes of activity extension and flexion of extremity or opening and closing of the hand [Y] 2/2 GROSS BODY MOVEMENTS: 3 or more discrete body or limb movements [Y] 2/2 BREATHING MOVEMENTS: 1 or more episodes of breathing lasting at least 30 seconds [Y] 2/2 JT: A single deepest vertical pocket of amniotic fluid greater than 2 cm [Y] 2/2 JT: 11.23cm . This is within normal range Total score: 8/8 US/US OB BPP w non-stress IMPRESSION: NORMAL BIOPHYSICAL PROFILE SCORE. Impression dictated by: Shelli Mcghee M.D.04/15/2024 4:31 PM [facility] Electronically authenticated by: [id number] Y Date: 04/15/2024 16:31
--- NOTE | 2024-04-15 15:20 | US_ITS ---
The [address] [address] Patient Name: JESSICA MOELLER MRN: [id number] date: 1985 Sex: F Assigned Patient Location: [facility] Current Patient Location: [facility] Accession/Order Number: [id number] Exam Date: 04/15/2024 16:31 Report Date: 04/15/2024 16:37 At the request of: ELIUD RIVERO DO Procedure: US OB growth ULTRASOUND OB GROWTH COMPARISON: 03/17/2011 CLINICAL DATA: Diabetes mellitus. There is a single live intrauterine gestation in cephalic presentation. The placenta is anterior and within normal limits for position and appearance. The amniotic fluid index measures 11.23 which is within normal range. There is cardiac and somatic activity with heart rate of 149 bpm. The following measurements were obtained: Biparietal diameter 8.3 cm 33 weeks 3 days 67% Head circumference 30.6 cm 34 weeks 1 day 54% Abdominal circumference 30.0 cm 33 weeks 6 days 83% Femur length 6.2 cm 32 weeks 0 days 22% The composite ultrasound age based on these measurements is 33 weeks 3 days +/- 2 weeks 2 days. This correlates with the previous ultrasound. The estimated weight is 4 lbs. 12 oz. +/- 11 ounces. US/US OB growth IMPRESSION: SINGLE LIVE INTRAUTERINE GESTATION WITH ULTRASOUND AGE OF 33 WEEKS 3 DAYS. NORMAL INTERVAL GROWTH. Impression dictated by: Shelli Mcghee M.D.04/15/2024 4:37 PM Dictation Location: [place] [address] Electronically authenticated by: [id number] Y Date: 04/15/2024 16:37
[2024-04-15 15:39] VITALS: BP 124/73; PULSE 113
== END 2024-04-15 16:53 | disposition home or self-care (01) ==
LOC: US 15:14 → FBC 15:18
PROVIDERS: PCP Family Medicine; Visit Provider Obstetrics & Gynecology
DX: O09.523 Supervision of elderly multigravida, third trimester (principal); Z13.1 Encounter for screening for diabetes mellitus; Z3A.33 33 weeks gestation of pregnancy
CPT/HCPCS: 76816; 76818

== ENCOUNTER 2024-04-18 00:11 | Outpatient (OUT) | payer OTHER, SELFPAY ==
--- OUTSIDE RECORDS SUMMARY | 2024-04-18 00:15 | XMS_ITS | CCD ---
Author Organization [facility] Care Team Providers Care Professor Of Public Administration Name Role Phone Vicky Joe Unavailable WEST, DR SANON Admitting Unavailable KARASIK, DR SANON Attending Unavailable KARASIK, DR SANON Consulting Unavailable KARASIK, DR SANON Attending Unavailable KARASIK, DR SANON Consulting Unavailable KARASIK, DR SANON Admitting Unavailable CHLOE CARVAJAL Attending Unavailable CHLOE CARVAJAL Consulting Unavailable CHLOE CARVAJAL Admitting Unavailable Ysabel Cabral MD Primary Care Provider [phone] Ale Zaldivar MD Unavailable Dillon ACADEMIC SERVICES PROFESSIONAL, Chloe Swift Unavailable Dillon ACADEMIC SERVICES PROFESSIONAL, Chloe R Unavailable Jo Ann-Nossejasen FACTORY LABORER-PIPE BENDING MACHINE OPERATORTeresa Unavailable Ysabel Cabral MD Unavailable RAGHAVENDRA VASQUEZ Attending Unavailable JO ANN-NOSTERESA HOLLIS Attending Unavailab RAGHAVENDRA Bustamante Attending Unavailable JO ANN-NOSSETERESA Butterfield Attending Unavailab le JO ANN-NOSSETERESA Butterfield Attending Unavailab EVONNE Hargrove Attending Unavailable JO ANN-TERESA REINA Attending Unavailab YSABEL Don Attending Unavailable CHLOE CARVAJAL Attending Unavailable CHLOE CARVAJAL Referring Unavailable YSABEL CABRAL Attending Unavailable YSABEL CABRAL Attending Unavailable JO ANN-TERESA REINA Attending Unavailab YSABEL Don Attending Unavailable EVONNE CHILDRESS Attending Unavailable YSABEL CABRAL Attending Unavailable JO ANN-NOSSETERESA Butterfield Attending Unavailab RAGHAVENDRA Bustamante Attending Unavailable TERESA ORNELAS Attending Unavailab RAGHAVENDRA Bustamante Attending Unavailable RAGHAVENDRA VASQUEZ Attending Unavailable EMERITA WARREN Attending Unavailable RAGHAVENDRA VASQUEZ Attending Unavailable Allergies Allergy Classification Reported Allergen(s) Allergy Type Date of Onset Reaction(s) Facility (1 source) Aspirin Drug Allergy shortness of breath [facility] Other (20 sources) Diclofenac Drug Allergy 07-05-19 Unknown [facility] Other (20 sources) Ibuprofen Drug Allergy 07-05-19 Unknown [facility] Other (20 sources) Naproxen Drug Allergy 07-05-19 Unknown [facility] Other (20 sources) NSAIDs Drug allergy 07-05-19 Unknown Propable Other (1 source) Aspirin Drug Allergy 02-26-18 90 [facility] (1 source) cyclobenzaprine Drug Allergy 01-10-20 15 [facility] (1 source) Diclofenac Drug Allergy 01-10-20 15 [facility] (1 source) Ibuprofen Drug Allergy 08-04-19 16 [facility] (1 source) NSAIDs Drug allergy (disorder) 01-02-20 14 [facility] (20 sources) Aluminum aspirin Drug Allergy 07-05-19 23 [facility] (20 sources) Amitriptyline Drug Allergy 03-22-19 18 [facility] (20 sources) cyclobenzaprine Drug Allergy 01-24-20 16 [facility] (20 sources) Lamotrigine Allergy to substance 07-05-19 23 [facility] (20 sources) meloxicam Drug Allergy 07-05-19 23 Unknown [facility] (20 sources) Sertraline Drug Allergy 01-01-20 24 [facility] Medications Current Medications Medication Drug Class(es) Dates [...] Active cyclobenzaprine hydrochloride 5 mg oral tablet (20 sources) Muscle Relaxant Start: 02-11-2024 take 0.5-1 [...] omeprazole 20 mg delayed release oral capsule (20 sources) Proton Pump Inhibitor Start: 01-10-2024 End: 02-09-2024 take 1 capsule by mouth before mealtime omeprazole (PriLOSEC) [address] capsule Indications: Gastroesophageal Reflux Disease , Heartburn Take 1 capsule (20 mg) by mouth in the morning. Take before meals. Do not crush or chew.. 30 capsule 3 01/10/2024 Active take 1 capsule by [facility] every twenty-four hours Omeprazole 20 MG 1 [...] polysaccharide iron complex 391 mg oral capsule (14 sources) Start: 025 End: 025 take 1 capsule by mouth once daily iron polysaccharides (ProFe) 391.3 (180 Fe) MG capsule Indications: Low iron Take 1 capsule (391.3 mg) by mouth Daily 30 capsule 6 03/10/2024 04/09/2024 Active QUEtiapine 25 mg oral tablet (1 [...] 20 tablet 1 09/24/2023 11/28/2023 Discontinued (Other) [id number] 200 actuat albuterol 0.09 mg/actuat metered dose [...] TIMES A DAY for 30 days Active promethazine hydrochloride 12.5 mg oral tablet (20 sources) Phenothiazine Start: 10-22-2023 End: 03-25-2024 take 1 tablet by mouth every six [...] needed for nausea. 30 tablet 2 10/22/2023 03/25/2024 Discontinued (Other) Promethazine HCl 25 MG 1/2 -1 TABLET Orally THREE TIMES A DAY Active Promethazine HCl Active sertraline 50 mg oral tablet (20 [...] complicating , unspecified trimester] 01-10-2024 Episodic Other complications of (2 sources) Multigravida of advanced maternal age; Translations: [Supervision of elderly multigravida, third trimester] 04-08-2024 Episodic Other female genital disorders (2 sources) Vaginal discharge; Translations: [Other specified noninflammatory disorders of vagina] 01-10-2024 Episodic Other gastrointestinal disorders (20 sources) Irritable bowel syndrome; Translations: [Irritable bowel syndrome without diarrhea] Onset: 7 12-28-2022 Chronic Other and delivery including normal (16 sources) First trimester ; Translations: [Encounter for [...] [27 weeks gestation of ] 03-11-2024 Episodic Residual codes; unclassified (2 sources) Gestation period, 29 weeks; Translations: [29 weeks gestation of ] 03-25-2024 Episodic Residual codes; unclassified (2 sources) Gestation period, 31 weeks; Translations: [31 weeks gestation of ] 04-08-2024 Episodic Unclassified (2 sources) CONTACT W/AND (SUSP) [...] Test Name Value Interpretation Reference Range Facility US OB BPP W NON-STRESS on 04-15-2024 [place] [address] Ultrasound Report Signed Patient: TIKI MOELLER MR#: [id number] : 1985 Acct:[id number] Age/Sex: 38 / F ADM Date: 04/15/24 Loc: [facility] 250-[address]: Raghavendra Vasquez D.O. Ordering Physician: Raghavendra Vasquez D.O. Date of Service: 04/15/24 Procedure(s): US OB BPP w non-stress Accession Number(s): [id number] cc: YSABEL CABRAL ; Raghavendra Vasquez D.O. [place] [address] Patient Name: TIKI MOELLER MRN: [id number] date: 1985 Sex: F Assigned Patient Location: [facility] Current Patient Location: [facility] Accession/Order Number: [id number] Exam Date: 04/15/2024 16:26 Report Date: 04/15/2024 16:31 At the request of: RAGHAVENDRA VASQUEZ DO Procedure: US OB BPP w non-stress BIOPHYSICAL PROFILE: CLINICAL INFORMATION: Multigravida of advanced maternal age TECHNIQUE: Multiple ultrasonographic scans of the lower abdomen and pelvis were obtained. The fetus is in the cephalic presentation. The measurements are consistent with a 33 week 3 day gestation. The heart rate beats per minute. FINDINGS: TONE: 1 or more episodes of activity extension and flexion of extremity or opening and closing of the hand [Y] 2/2 GROSS BODY MOVEMENTS: 3 or more discrete body or limb movements [Y] 2/2 BREATHING MOVEMENTS: 1 or more episodes of breathing lasting at least 30 seconds [Y] 2/2 JT: A single deepest vertical pocket of amniotic fluid greater than 2 cm [Y] 2/2 JT: 11.23cm . This is within normal range Total score: 8/8 US/US OB BPP w non-stress IMPRESSION: NORMAL BIOPHYSICAL PROFILE SCORE. Impression dictated by: Shelli Mcghee M.D.04/15/2024 4:31 PM Dictation Location: [place] [address] Electronically authenticated by: [id number] Y Date: 04/15/2024 16:31 Dictated By: Shelli Mcghee M.D. Signed By: 04/15/24 1633 DD/ 1631 TD/TT: Customer Quality Engineer: [facility] Radiology, Radiologist, MD - 04/15/2024 [place] [address] Ultrasound Report Signed Patient: TIKI MOELLER MR#: [id number] : 1985 Acct:[id number] Age/Sex: 38 / F ADM Date: 04/15/24 Loc: [place] [address]-[address]: Raghavendra Vasquez D.O. Ordering Physician: Raghavendra Vasquez D.O. Date of Service: 04/15/24 Procedure(s): US OB BPP w non-stress Accession Number(s): [id number] cc: YSABEL CABRAL ; Raghavendra Vasquez D.O. The [place] [address] Patient Name: TIKI MOELLER MRN: [facility]:[id number] date: 1985 Sex: F Assigned Patient Location: [facility] Current Patient Location: [facility] Accession/Order Number: [id number] Exam Date: 04/15/2024 16:26 Report Date: 04/15/2024 16:31 At the request of: RAGHAVENDRA VASQUEZ DO Procedure: US OB BPP w non-stress BIOPHYSICAL PROFILE: CLINICAL INFORMATION: Multigravida of advanced maternal age TECHNIQUE: Multiple ultrasonographic scans of the lower abdomen and pelvis were obtained. The fetus is in the cephalic presentation. The measurements are consistent with a 33 week 3 day gestation. The heart rate [id number] beats per minute. FINDINGS: TONE: 1 or more episodes of activity extension and flexion of extremity or opening and closing of the hand [Y] 2/2 GROSS BODY MOVEMENTS: 3 or more discrete body or limb movements [Y] 2/2 BREATHING MOVEMENTS: 1 or more episodes of breathing lasting at least 30 seconds [Y] 2/2 JT: A single deepest vertical pocket of amniotic fluid greater than 2 cm [Y] 2/2 JT: 11.23cm . This is within normal range Total score: 8/8 US/US OB BPP w non-stress IMPRESSION: NORMAL BIOPHYSICAL PROFILE SCORE. Impression dictated by: Shelli Mcghee M.D.04/15/2024 4:31 PM Dictation Location: [place] [address] Electronically authenticated by: [id number] Y Date: 04/15/2024 16:31 Dictated By: Shelli Mcghee M.D. Signed By: 04/15/24 163 DD/ 163 TD/TT: Customer Quality Engineer: [facility] Radiology Study observation (narrative) [facility] OB BPP W NON-STRESS Ordered By: Radiologist Radiology on 04-15-2024 [facility] Work Phone: US OB GROWTHon 04-15-2024 [place] [address] Ultrasound Report Signed Patient: TIKI MOELLER MR#: [id number] : 1985 Acct:[id number] Age/Sex: 38 / F ADM Date: 04/15/24 Loc: [facility] 250-[address]: Raghavendra Vasquez D.O. Ordering Physician: Raghavendra Vasquez D.O. Date of Service: 04/15/24 Procedure(s): US OB growth Accession Number(s): [id number] cc: YSABEL CABRAL ; Raghavendra Vasquez D.O. The [address] [address] Patient Name: TIKI MOELLER MRN: [id number] date: 1985 Sex: F Assigned Patient Location: [facility] Current Patient Location: [facility] Accession/Order Number: [id number] Exam Date: 04/15/2024 16:31 Report Date: 04/15/2024 16:37 At the request of: RAGHAVENDRA VASQUEZ DO Procedure: US OB growth ULTRASOUND OB GROWTH COMPARISON: 03/17/2011 CLINICAL DATA: Diabetes mellitus. There is a single live intrauterine gestation in cephalic presentation. The placenta is anterior and within normal limits for position and appearance. The amniotic fluid index measures 11.23 which is within normal range. There is cardiac and somatic activity with heart rate of 149 bpm. The following measurements were obtained: Biparietal diameter 8.3 cm 33 weeks 3 days 67% Head circumference 30.6 cm 34 weeks 1 day 54% Abdominal circumference 30.0 cm 33 weeks 6 days 83% Femur length 6.2 cm 32 weeks 0 days 22% The composite ultrasound age based on these measurements is 33 weeks 3 days +/- 2 weeks 2 days. This correlates with the previous ultrasound. The estimated weight is 4 lbs. 12 oz. +/- 11 ounces. US/US OB growth IMPRESSION: SINGLE LIVE INTRAUTERINE GESTATION WITH ULTRASOUND AGE OF 33 WEEKS 3 DAYS. NORMAL INTERVAL GROWTH. Impression dictated by: Shelli Mcghee M.D.04/15/2024 4:37 PM Dictation Location: [place] [address] Electronically authenticated by: [id number] Y Date: 04/15/2024 16:37 Dictated By: Shelli Mcghee M.D. Signed By: 04/15/24 1640 DD/ 1637 TD/TT: Customer Quality Engineer: [facility] Radiology, Radiologist, - 04/15/2024 [place] [address] Ultrasound Report Signed Patient: TIKI MOELLER MR#: [id number] : 1985 Acct:[id number] Age/Sex: 38 / F ADM Date: 04/15/24 Loc: [facility] 250-[address]: Raghavendra Vasquez D.O. Ordering Physician: Raghavendra Vasquez D.O. Date of Service: 04/15/24 Procedure(s): US OB growth Accession Number(s): [id number] cc: YSABEL CABRAL ; Raghavendra Vasquez D.O. The [address] [address] Patient Name: TIKI MOELLER MRN: [id number] date: 1985 Sex: F Assigned Patient Location: [facility] Current Patient Location: [facility] Accession/Order Number: [id number] Exam Date: 04/15/2024 16:31 Report Date: 04/15/2024 16:37 At the request of: RAGHAVENDRA VASQUEZ DO Procedure: US OB growth ULTRASOUND OB GROWTH COMPARISON: 03/17/2011 CLINICAL DATA: Diabetes mellitus. There is a single live intrauterine gestation in cephalic presentation. The placenta is anterior and within normal limits for position and appearance. The amniotic fluid index measures 11.23 which is within normal range. There is cardiac and somatic activity with heart rate of 149 bpm. The following measurements were obtained: Biparietal diameter 8.3 cm 33 weeks 3 days 67% Head circumference 30.6 cm 34 weeks 1 day 54% Abdominal circumference 30.0 cm 33 weeks 6 days 83% Femur length 6.2 cm 32 weeks 0 days 22% The composite ultrasound age based on these measurements is 33 weeks 3 days +/- 2 weeks 2 days. This correlates with the previous ultrasound. The estimated weight is 4 lbs. 12 oz. +/- 11 ounces. US/US OB growth IMPRESSION: SINGLE LIVE INTRAUTERINE GESTATION WITH ULTRASOUND AGE OF 33 WEEKS 3 DAYS. NORMAL INTERVAL GROWTH. Impression dictated by: Shelli Mcghee M.D.04/15/2024 4:37 PM Dictation Location: [place] [address] Electronically authenticated by: [id number] Y Date: 04/15/2024 16:37 Dictated By: Shelli Mcghee M.D. Signed By: 04/15/24 1640 DD/ 1637 TD/TT: Customer Quality Engineer: [facility] Radiology Study observation (narrative) [facility] OB GROWTHOrdered By: Liang ologry Radiology on 04-15-2024 [facility] Work Phone: Urinalysis macro (dipstick) panel (U)on 04-08-2024 Bilirubin, UA Negative Negative - 4(70) +++ mg/dL [facility] Blood, UA Negative Negative - 50 Armand/mcL [facility] Clarity, UA Clear [facility] Color, UA Yellow [facility] Glucose, UA Negative Negative - 1999(110) ++++ mg/dL [facility] Interpretation and review of laboratory results Abnormal [facility] Ketones, UA Negative Negative - 160(16) ++++ mg/dL [facility] Leukocytes, UA Negative Negative - 500+++ Doe/mcL [facility] Nitrite, UA Negative Negative - Positive [facility] pH, UA 7 5 - 9 [facility] Protein, UA Trace Negative - 1999(20) ++++ mg/dL [facility] Spec Grav, UA 1.025 1 - 1.03 [facility] Urobilinogen, UA 1.0 0.2 - 12 mg/dL [facility] OB GROWTHon 03-25-2024 [place] [address] Ultrasound Report Signed Patient: TIKI MOELLER MR#: [id number] : 1985 Acct:[id number] Age/Sex: 38 / F ADM Date: 03/25/24 Loc: US Attending Dr: Raghavendra Vasquez D.O. Ordering Physician: Raghavendra Vasquez D.O. Date of Service: 03/25/24 Procedure(s): US OB growth Accession Number(s): [id number] cc: YSABEL CABRAL ; Raghavendra Vasquez D.O. [place] [address] Patient Name: TIKI MOELLER MRN: [facility]:[id number] date: 1985 Sex: F Assigned Patient Location: Current Patient Location: US Accession/Order Number: [id number] Exam Date: 03/25/2024 11:02 Report Date: 03/25/2024 11:47 At the request of: RAGHAVENDRA VASQUEZ Procedure: US OB growth EXAMINATION: US OB growth HISTORY: Diabetes Mellitus COMPARISON: No relevant comparison available. FINDINGS: Heart Rate: 137.06 bpm Amniotic Fluid Volume: 15.8 cm, largest fluid pocket 5.7 cm Number: 1 Position: Breech presentation, longitudinal lie BIOMETRY: BPD: 7.68 cm; 30 weeks 6 days; 79.30 % HC: 28.86 cm; 31 weeks 5 days; 82.40 % AC: 25.87 cm; 30 weeks 0 days; 62.70 % FL: 5.53 cm; 29 weeks 1 day; 27.30 % EFW: 1487.42 g; 57 %, 3 lbs. 4 oz. FL/AC: 21.38 FL/BPD: 72.06 HC/AC: 1.12 GESTATIONAL AGE: Age by EDC: 29 weeks 3 days RINA by EDC: 2024-06-07 Age by US: 30 weeks 3 days RINA by US: 2024-05-31 US/US OB growth IMPRESSION: Normal interval growth Electronically authenticated by: RAMÍREZ NAVA Date: 03/25/2024 11:47 Dictated By: Ramírez Nava M.D. Signed By: 03/25/24 1150 DD/ 1147 TD/TT: Customer Quality Engineer: [facility] Radiology, Radiologist, - 03/25/2024 [place] [address] Ultrasound Report Signed Patient: TIKI MOELLER MR#: [id number] : 1985 Acct:[id number] Age/Sex: 38 / F ADM Date: 03/25/24 Loc: US Attending Dr: Raghavendra Vasquez D.O. Ordering Physician: Raghavendra Vasquez D.O. Date of Service: 03/25/24 Procedure(s): US OB growth Accession Number(s): [id number] cc: YSABEL CABRAL ; Raghavendra Vasquez D.O. The [place] [address] Patient Name: TIKI MOELLER MRN: [facility]:[id number] date: 1985 Sex: F Assigned Patient Location: US Current Patient Location: US Accession/Order Number: [id number] Exam Date: 03/25/2024 11:02 Report Date: 03/25/2024 11:47 At the request of: RAGHAVENDRA VASQUEZ Procedure: US OB growth EXAMINATION: US OB growth HISTORY: Diabetes Mellitus COMPARISON: No relevant comparison available. FINDINGS: Heart Rate: 137.06 bpm Amniotic Fluid Volume: 15.8 cm, largest fluid pocket 5.7 cm Number: 1 Position: Breech presentation, longitudinal lie BIOMETRY: BPD: 7.68 cm; 30 weeks 6 days; 79.30 % HC: 28.86 cm; 31 weeks 5 days; 82.40 % AC: 25.87 cm; 30 weeks 0 days; 62.70 % FL: 5.53 cm; 29 weeks 1 day; 27.30 % EFW: 1487.42 g; 57 %, 3 lbs. 4 oz. FL/AC: 21.38 FL/BPD: 72.06 HC/AC: 1.12 GESTATIONAL AGE: Age by EDC: 29 weeks 3 days RINA by EDC: 2024-06-07 Age by US: 30 weeks 3 days RINA by US: 2024-05-31 US/US OB growth IMPRESSION: Normal interval growth Electronically authenticated by: RAMÍREZ NAVA Date: 03/25/2024 11:47 Dictated By: Ramírez Nava M.D. Signed By: 03/25/24 1150 DD/ 1147 TD/TT: Customer Quality Engineer: [facility] Radiology Study observation (narrative) [facility] US OB GROWTHOrdered By: Liang ologry Radiology on 03-25-2024 [facility] Work Phone: Urinalysis macro (dipstick) panel (U)on 03-25-2024 Bilirubin, UA Positive Negative - 4(70) +++ mg/dL [facility] Blood, UA Negative Negative - 50 Armand/mcL [facility] Clarity, UA Clear [facility] Color, UA Yellow [facility] Glucose, UA Negative Negative - 1999(110) ++++ mg/dL [facility] Interpretation and review of laboratory results Abnormal [facility] Ketones, UA Positive Negative - 160(16) ++++ mg/dL [facility] Leukocytes, UA Negative Negative - 500+++ Doe/mcL [facility] Nitrite, UA Positive Negative - Positive [facility] pH, UA 6.5 5 - 9 [facility] Protein, UA Positive Negative - 1999(20) ++++ mg/dL [facility] Spec Grav, UA 1.025 1 - 1.03 [facility] Urobilinogen, UA 1.0 0.2 - 12 mg/dL [facility] Urinalysis macro (dipstick) panel (U)on 03-11-2024 Bilirubin, UA Negative Negative - 4(70) +++ mg/dL [facility] Blood, UA Negative Negative - 50 Armand/mcL [facility] Clarity, UA Clear [facility] Color, UA Yellow [facility] Glucose, UA Negative Negative - 1999(110) ++++ mg/dL [facility] Interpretation and review of laboratory results Abnormal [facility] Ketones, UA Negative Negative - 160(16) ++++ mg/dL [facility] Leukocytes, UA Negative Negative - 500+++ Doe/mcL [facility] Nitrite, UA Negative Negative - Positive [facility] pH, UA 7 5 - 9 [facility] Protein, UA Positive Negative - 2000(20) ++++ mg/dL [facility] Comment on above: 30 Spec Grav, UA 1.025 1 - 1.03 [facility] Urobilinogen, UA 0.2 0.2 - 12 mg/dL [facility] ALL CBC WITH AUTO DIFFon BASOPHILS ABSOLUTE AUTO 0 [facility] Basophils/100 WBC (Bld) 0.2 % 0.2 - 2.0 % [facility] Eosinophils/100 WBC (Bld) 0.6 % Low 0.9 - 7.0 % [facility] Erythrocyte distribution width (RBC) [Ratio] 13 % 11.0 - 15.0 % [facility] Hematocrit (Bld) [Volume fraction] 32.2 % Low 36.0 - 48.0 % [facility] Hemoglobin (Bld) [Mass/Vol] 10.3 g/dL Low 12.0 - 16.0 g/dL [facility] IMMATURE GRANULOCYTES ABS AUTO 0.06 High [facility] Immature granulocytes/100 WBC (Bld) 0.6 % High 0.0 - 0.5 % [facility] Interpretation and review of laboratory results Abnormal [facility] LYMPHOCYTES ABSOLUTE AUTO 1.8 [facility] Lymphocytes/100 WBC (Bld) 19.1 % Low 20.5 - 60.0 % [facility] MCH (RBC) [Entitic mass] 25.9 pg Low 26.7 - 34.0 pg [facility] MCHC (RBC) [Mass/Vol] 32 g/dL 29.9 - 35.2 g/dL [facility] MCV (RBC) [Entitic vol] 81.1 fL 81.0 - 99.0 fL [facility] MONOCYTES ABSOLUTE AUTO 0.5 [facility] Monocytes/100 WBC (Bld) 5.5 % 1.7 - 12.0 % [facility] NEUTROPHILS ABSOLUTE AUTO 7 High [facility] Neutrophils/100 WBC (Bld) 74 % 43.0 - 75.0 % [facility] Platelet mean volume (Bld) [Entitic vol] 10.7 fL 9.5 - 13.5 fL [facility] EO # 0.1 [facility] PLT 238 [facility] RBC 3.97 Low [facility] WBC 9.4 [facility] UA (CLEAN/CATCH) PIPE BENDING MACHINE OPERATOR/LA RO IF IND.on 03-07-2024 BILIRUBIN URINE Negative NEGATIVE [facility] BLOOD URINE Negative NEGATIVE [facility] Clarity (U) CLEAR CLEAR [facility] Color (U) YELLOW YELLOW [facility] GLUCOSE URINE UA Negative NEGATIVE mg/dL [facility] Interpretation and review of laboratory results Abnormal [facility] Ketones Ql (U) TRACE Abnormal NEGATIVE mg/dL [facility] Leukocyte esterase Test strip Ql (U) Negative NEGATIVE [facility] NITRITE URINE Negative NEGATIVE [facility] pH (U) 7.5 [pH] 5.0 - 9.0 [facility] PROTEIN URINE TRACE NEG/TRACE mg/dL [facility] SPECIFIC GRAVITY URINE 1.025 1.005 - 1.025 [facility] URINE MICROSCOPIC INDICATED NO [facility] UROBILINOGEN URINE 1.0 EU/dL 0.2 - 1.0 EU/dL [facility] Urinalysis macro (dipstick) panel (U)on 02-11-2024 Bilirubin, UA Negative Negative - 4(70) +++ mg/dL [facility] Blood, UA Negative Negative - 50 Armand/mcL [facility] Clarity, UA Clear [facility] Color, UA Yellow [facility] Glucose, UA Negative Negative - 2000(110) ++++ mg/dL [facility] Interpretation and review of laboratory results Abnormal [facility] Ketones, UA Negative Negative - 160(16) ++++ mg/dL [facility] Leukocytes, UA Negative Negative - 500+++ Doe/mcL [facility] Nitrite, UA Negative Negative - Positive [facility] pH, UA 7.5 5 - 9 [facility] Protein, UA Trace Negative - 1999(20) ++++ mg/dL [facility] Spec Grav, UA 1.015 1 - 1.03 [facility] Urobilinogen, UA 0.2 0.2 - 12 mg/dL [facility] IGP,APTIMA HPV,AGE GDLNon AGE GDLN ACOG TESTING Note . [facility] Comment on above: TESTS RESULT FLAG UN ITS REF RANGE LAB Clinician Provided Cytology Information Source.............Cervix Other.............. No. of containers..01 ThinPrep Vial Age Algo ACOG [place]... 30-65 FLAG LEGEND: L-Low Normal,H-High Normal,LL-Alert Low,HH-Alert High <-Panic Low,>-Panic High,A-Abnormal,AA-Critical Abnormal Performed at: 01 =[facility] [place] [address] Judith Ventura MD, HPV APTIMA Negative Negative [facility] Comment on above: This nucleic acid am plification test detects fourteen high- risk HPV types (16,18,31,33,35,39,45,51,52,56,58,59,66,68) without differentiation. Performed at: =[facility] [address] [id number] [place] [employer]: Judith Ventura MD, Phone: [phone] Performed at: - [facility] [id number] [place] [employer]: Judith Ventura MD, Phone: [phone] IGP, APTIMA HPV, RFX 16/18,45 Note . [facility] Comment on above: TESTS RESULT FLAG U NITS REF RANGE LAB DIAGNOSIS: 02 NEGATIVE FOR INTRAEPITHELIAL LESION OR MALIGNANCY. Specimen adequacy: 02 Satisfactory for evaluation. Endocervical and/or squamous metaplastic cells (endocervical component) are present. Performed by: 02 Ashli Frank, Senior Sharepoint Architect (ASCP) . 02 Note: Note 02 The [...] <-Panic Low,>-Panic High,A-Abnormal,AA-Critical Abnormal Performed at: [address] [facility] [address] [id number] Judith Ventura MD, SPATULA[facility]ONE [facility] RECURRENT VAGINITIS (HTRX)on 01-11-2024 ATOPOBIUM VAGINAE 0 [facility] ATOPOBIUM VAGINAE Not detected [facility] BVAB 2,3 (BACTERIAL VAGINOSIS ASSOCIATED BACTERIA 2, 3); MOBILUNCUS SPP 0 [facility] BVAB 2,3 (BACTERIAL VAGINOSIS ASSOCIATED BACTERIA 2, 3); MOBILUNCUS SPP Not detected [facility] LOC ALBICANS, PARAPSILOSIS, TROPICALIS 0 [facility] LOC ALBICANS, PARAPSILOSIS, TROPICALIS Not detected [facility] LOC GLABRATA 0 [facility] LOC GLABRATA Not detected [facility] LOC KRUSEI 0 [facility] LOC KRUSEI Not detected [facility] CHLAMYDIA TRACHOMATIS 0 [facility] CHLAMYDIA TRACHOMATIS Not detected [facility] GARDNERELLA VAGINALIS 0 [facility] GARDNERELLA VAGINALIS Not detected [facility] MEGASPHAERA (TYPES 1, 2) 0 [facility] MEGASPHAERA (TYPES 1, 2) Not detected [facility] MYCOPLASMA GENITALIUM 0 [facility] MYCOPLASMA GENITALIUM Not detected [facility] NEISSERIA GONORRHOEAE 0 [facility] NEISSERIA GONORRHOEAE Not detected [facility] TRICHOMONAS VAGINALIS 0 [facility] TRICHOMONAS VAGINALIS Not detected [facility] Urinalysis macro (dipstick) panel (U)on 01-10-2024 Bilirubin, UA Negative Negative - 4(70) +++ mg/dL [facility] Blood, UA Negative Negative - 50 Armand/mcL [facility] Clarity, UA Clear [facility] Color, UA Yellow [facility] Glucose, UA Negative Negative - 1999(110) ++++ mg/dL [facility] Interpretation and review of laboratory results Abnormal [facility] Ketones, UA Positive Negative - 160(16) ++++ mg/dL [facility] Leukocytes, UA Negative Negative - 500+++ Doe/mcL [facility] Nitrite, UA Negative Negative - Positive [facility] pH, UA 7 5 - 9 [facility] Protein, UA Negative Negative - 1999(20) ++++ mg/dL [facility] Spec Grav, UA 1.015 1 - 1.03 [facility] Urobilinogen, UA 1.0 0.2 - 12 mg/dL [facility] ALL CBC WITH AUTO DIFFon BASOPHILS ABSOLUTE AUTO 0.0 [facility] Basophils/100 WBC (Bld) 0.2 % 0.2 - 2.0 % [facility] Eosinophils/100 WBC (Bld) 2.3 % 0.9 - 7.0 % [facility] Erythrocyte distribution width (RBC) [Ratio] 12.3 % 11.0 - 15.0 % [facility] Hematocrit (Bld) [Volume fraction] 37.1 % 36.0 - 48.0 % [facility] Hemoglobin (Bld) [Mass/Vol] 12.3 g/dL 12.0 - 16.0 g/dL [facility] IMMATURE GRANULOCYTES ABS AUTO 0.04 High [facility] Immature granulocytes/100 WBC (Bld) 0.4 % 0.0 - 0.5 % [facility] Interpretation and review of laboratory results Abnormal [facility] LYMPHOCYTES ABSOLUTE AUTO 2.7 [facility] Lymphocytes/100 WBC (Bld) 28.4 % 20.5 - 60.0 % [facility] MCH (RBC) [Entitic mass] 28.0 pg 26.7 - 34.0 pg [facility] MCHC (RBC) [Mass/Vol] 33.2 g/dL 29.9 - 35.2 g/dL [facility] MCV (RBC) [Entitic vol] 84.3 fL 81.0 - 99.0 fL [facility] MONOCYTES ABSOLUTE AUTO 0.5 [facility] Monocytes/100 WBC (Bld) 5.0 % 1.7 - 12.0 % [facility] NEUTROPHILS ABSOLUTE AUTO 6.0 [facility] Neutrophils/100 WBC (Bld) 63.7 % 43.0 - 75.0 % [facility] Platelet mean volume (Bld) [Entitic vol] 10.4 fL 9.5 - 13.5 fL [facility] TBH EO # 0.2 [facility]H PLT 253 [facility] RBC 4.40 [facility] TB WBC 9.4 [facility] Urinalysis macro (dipstick) panel (U)on 11-28-2023 Bilirubin, UA Negative Negative - 4(70) +++ mg/dL [facility] Blood, UA Negative Negative - 50 Armand/mcL [facility] Clarity, UA Clear [facility] Color, UA Yellow [facility] Glucose, UA Negative Negative - 1999(110) ++++ mg/dL [facility] Interpretation and review of laboratory results Normal [facility] Ketones, UA Negative Negative - 160(16) ++++ mg/dL [facility] Leukocytes, UA Negative Negative - 500+++ Doe/mcL [facility] Nitrite, UA Negative Negative - Positive [facility] pH, UA 7.0 5 - 9 [facility] Protein, UA Negative Negative - 1999(20) ++++ mg/dL [facility] Spec Grav, UA 1.025 1 - 1.03 [facility] Urobilinogen, UA 1.0 0.2 - 12 mg/dL [facility] URINE CULTURE, ROUTINEon Bacteria identified Cx Nom (U) Urine Culture, Routine [facility] Bacteria identified Cx Nom (U) Culture shows less than 10,000 colony forming units of bacteria per [facility] Bacteria identified Cx Nom (U) milliliter of urine. This colony count is not generally considered [facility] Bacteria identified Cx Nom (U) to be clinically significant. [facility] Bacteria identified Cx Nom (U) [facility]formed at[facility] Bacteria identified Cx Nom (U) [address] [place] [id number] [facility] Bacteria identified Cx Nom (U) [employer] [place] [employer]: Michael Berry PhD, Phone: [phone] [facility] HCG ( test) Ql (U)o n 11-01-2023 Interpretation and review of laboratory results Abnormal [facility] Preg Test, Ur Positive [facility] Urinalysis macro (dipstick) panel (U)on 11-01-2023 Bilirubin, UA Negative Negative - 4(70) +++ mg/dL [facility] Blood, UA Negative Negative - 50 Armand/mcL [facility] Clarity, UA Clear [facility] Color, UA Yellow [facility] Glucose, UA Negative Negative - 1999(110) ++++ mg/dL [facility] Interpretation and review of laboratory results Normal [facility] Ketones, UA Negative Negative - 160(16) ++++ mg/dL [facility] Leukocytes, UA Negative Negative - 500+++ Doe/mcL [facility] Nitrite, UA Negative Negative - Positive [facility] pH, UA 6.0 5 - 9 [facility] Protein, UA Negative Negative - 1999(20) ++++ mg/dL [facility] Spec Grav, UA 1.020 1 - 1.03 [facility] Urobilinogen, UA 0.2 0.2 - 12 mg/dL [facility] XR CERVICAL SPINE AP/LAT/FLE X/EXT/OBLIQUESon 08-16-2023 XR [...] [Mass/Vol] 8.9 mg/dL Normal (8.6 - 10.6) [facility] Comment on above: Performed By: #### C BC/2A, ESRCRP, CCP, HBC-M, HBSAG, HCV, CA, MG, RHF, URCA #### [facility] [address] [facility], [address] CBC, ALB, ALT, AST, ALK AND CREAon 12-18-2022 Albumin [Mass/Vol] 5.0 g/dL Normal (3.5 - 5.0) [facility] Comment on above: Order Comment: FACIL ITY: [facility] [id number] Performed By: #### C BC/2A, ESRCRP, CCP, HBC-M, HBSAG, HCV, CA, MG, RHF, URCA #### [facility] [address] [facility], [address] ALK PHOS 60 U/L Normal (38 - 126) [facility] Comment on above: Order Comment: FACIL ITY: [facility] [id number] Performed By: #### C BC/2A, ESRCRP, CCP, HBC-M, HBSAG, HCV, CA, MG, RHF, URCA #### [facility] [address] [facility], [address] ALT [Catalytic activity/Vol] 34 U/L Normal (1 - 35) [facility] Comment on above: Order Comment: FACIL ITY: [facility] [id number] Performed By: #### C BC/2A, ESRCRP, CCP, HBC-M, HBSAG, HCV, CA, MG, RHF, URCA #### [facility] [address] [facility], [address] AST [Catalytic activity/Vol] 34 U/L Normal (15 - 46) [facility] Comment on above: Order Comment: FACIL ITY: [facility] [id number] Performed By: #### C BC/2A, ESRCRP, CCP, HBC-M, HBSAG, HCV, CA, MG, RHF, URCA #### [facility] [address] [facility], [address] Creatinine [Mass/Vol] 0.61 mg/dL Normal (0.52 - 1.04) [facility] Comment on above: Order Comment: FACIL ITY: [facility] [id number] Performed By: #### C BC/2A, ESRCRP, CCP, HBC-M, HBSAG, HCV, CA, MG, RHF, URCA #### [facility] [address] [facility], [address] GFR- AMER 135.1 ML/M1.7 Normal (60.0 - 140.1) [facility] Comment on above: Order Comment: FACIL ITY: [facility] [id number] Performed By: #### C BC/2A, ESRCRP, CCP, HBC-M, HBSAG, HCV, CA, MG, RHF, URCA #### [facility] [address] [facility], [address] GFR-NON AFRIC-AMER 111.6 ML/M1.7 Normal (60.0 - 115.8) [facility] Comment on above: Order Comment: FACIL ITY: [facility] [id number] Performed By: #### C BC/2A, ESRCRP, CCP, HBC-M, HBSAG, HCV, CA, MG, RHF, URCA #### [facility] [address] [facility], [phone] Hematocrit (Bld) [Volume fraction] 41.5 % Normal (37.0 - 47.0) [facility] Comment on above: Order Comment: FACIL ITY: [facility] [id number] Performed By: #### C BC/2A, ESRCRP, CCP, HBC-M, HBSAG, HCV, CA, MG, RHF, URCA #### [facility] [address] [facility], [phone] Hemoglobin (Bld) [Mass/Vol] 13.5 g/dL Normal (12.0 - 16.0) [facility] Comment on above: Order Comment: FACIL ITY: [facility] [id number] Performed By: #### C BC/2A, ESRCRP, CCP, HBC-M, HBSAG, HCV, CA, MG, RHF, URCA #### [facility] [address] [facility], [phone] MCH (RBC) [Entitic mass] 28.7 pg Normal (27.0 - 33.0) [facility] Comment on above: Order Comment: FACIL ITY: [facility] [id number] Performed By: #### C BC/2A, ESRCRP, CCP, HBC-M, HBSAG, HCV, CA, MG, RHF, URCA #### [facility] [address] [facility], [phone] MCHC (RBC) [Mass/Vol] 32.5 g/dL Normal (30.0 - 37.0) [facility] Comment on above: Order Comment: FACIL ITY: [facility] [id number] Performed By: #### C BC/2A, ESRCRP, CCP, HBC-M, HBSAG, HCV, CA, MG, RHF, URCA #### [facility] [address] [facility], [address] MCV (RBC) [Entitic vol] 88.1 fL Normal (81.0 - 99.0) [facility] Comment on above: Order Comment: FACIL ITY: [facility] [id number] Performed By: #### C BC/2A, ESRCRP, CCP, HBC-M, HBSAG, HCV, CA, MG, RHF, URCA #### [facility] [address] [facility], [address] PLT 282 x10^3ul Normal (130 - 400) [facility] Comment on above: Order Comment: FACIL ITY: [facility] [id number] Performed By: #### C BC/2A, ESRCRP, CCP, HBC-M, HBSAG, HCV, CA, MG, RHF, URCA #### [facility] [address] [facility], [address] RBC 4.71 x10^6ul Normal (4.20 - 5.40) [facility] Comment on above: Order Comment: FACIL ITY: [facility] O [id number] Performed By: #### C BC/2A, ESRCRP, CCP, HBC-M, HBSAG, HCV, CA, MG, RHF, URCA #### [facility] [address] [facility], [address] WBC 6.47 x10^3ul Normal (3.80 - 10.60) [facility] Comment on above: Order Comment: FACIL ITY: [facility] O [id number] Performed By: #### C BC/2A, ESRCRP, CCP, HBC-M, HBSAG, HCV, CA, MG, RHF, URCA #### [facility] [address] [facility], [address] HEP B CORE AB, IGMon -23-2 023 HEPATITIS B CORE ANTIBODY, IGM Negative Normal (NEG - NEG) [facility] Comment on above: Performed By: #### C BC/2A, ESRCRP, CCP, HBC-M, HBSAG, HCV, CA, MG, RHF, URCA #### [facility] [address] [facility], [address] HEP B HERACLIO AGon 12-18-2022 HEP B HERACLIO AG Negative Normal (NEG - NEG) [facility] Comment on above: Performed By: #### C BC/2A, ESRCRP, CCP, HBC-M, HBSAG, HCV, CA, MG, RHF, URCA #### [facility] [address] [facility], [address] HEP C ANTIBODYon 12-18-2022 HEPATITIS C ANTIBODY Negative Normal (NEG - NEG) [facility] Comment on above: Performed By: #### C BC/2A, ESRCRP, CCP, HBC-M, HBSAG, HCV, CA, MG, RHF, URCA #### [facility] [address] [facility], [address] MAGNESIUMon 12-18-2022 Magnesium [Mass/Vol] 2.0 mg/dL Normal (1.6 - 2.3) [facility] Comment on above: Performed By: #### C BC/2A, ESRCRP, CCP, HBC-M, HBSAG, HCV, CA, MG, RHF, URCA #### [facility] [address] [facility], [address] RF FACTORon 12-18-2022 RF FACTOR <9 Normal (0 - 12) [facility] Comment on above: Result Comment: RF F ACTOR = LESS THAN 9 IU/ML RF FACTOR MIN. DETECTION = 9 IU/ML. Performed By: #### C BC/2A, ESRCRP, CCP, HBC-M, HBSAG, HCV, CA, MG, RHF, URCA #### [facility] [address] [facility], [address] SED RATE - CRPon 12-18-2022 CRP EXTENDED RANGE 1.40 MG/L Normal (0.00 - 3.20) [facility] Comment on above: Performed By: #### C BC/2A, ESRCRP, CCP, HBC-M, HBSAG, HCV, CA, MG, RHF, URCA #### [facility] [address] [facility], [address] SED RATE WEST. 5 MM/HR Normal (0 - 25) [facility] Comment on above: Performed By: #### C BC/2A, ESRCRP, CCP, HBC-M, HBSAG, HCV, CA, MG, RHF, URCA #### [facility] [address] [facility], [id number] URIC ACIDon 12-18-2022 Urate [Mass/Vol] 4.2 mg/dL Normal (2.5 - 6.2) [facility] Comment on above: Performed By: #### C BC/2A, ESRCRP, CCP, HBC-M, HBSAG, HCV, CA, MG, RHF, URCA #### [facility] [address] [facility], [address] PAP ACOG PANEL 2: 30 to 65on 11-16-2021 . . Normal [facility] Comment on above: Result Comment: Perf ormed at: WB Performed By: #### 4 [id number] #### [facility] [address] [place] [address] Dr. Sierra Almonte Age Gdln ACOG Testing 30-65 Normal [facility] Comment on above: Performed By: #### [id number] #### [facility] [address] [address] [address] Sierra Almonte DIAGNOSIS: Comment Normal [facility] Comment on above: Result Comment: NEGA TIVE FOR INTRAEPITHELIAL LESION OR MALIGNANCY. Performed at: WB Performed By: #### 4 [id number] #### [facility] [address] [address] [address] Sierra Almonte HPV Aptima Negative Normal Negative [facility] Comment on above: Result Comment: This nucleic acid amplification test detects fourteen high-risk HPV types (16,18,31,33,35,39,45,51,52,56,58,59,66,68) without differentiation. Performed at: =G Performed By: #### [id number] #### [facility] [address] [place] [address] Dr. Sierra Almonte Methodology: Comment Normal [facility] Comment on above: Result Comment: This liquid based ThinPrep(R) pap test was screened with the use of an image guided system. Performed at: WB Performed By: #### 4 [id number] #### [facility] [address] [place] [address] Dr. Sierra Almonte Note: Comment Normal [facility] Comment on above: Result Comment: The Pap smear is a screening test designed to aid in the detection of premalignant and malignant conditions of the uterine cervix. It is not a diagnostic procedure and should not be used as the sole means of detecting cervical cancer. Both false-positive and false-negative reports do occur. . Performed at: WB Performed By: #### 4 [id number] #### [facility] [address] [place] [address] Dr. Sierra Almonte Performed by: Comment Normal [facility] Comment on above: Result Comment: Alison Nava, Senior Sharepoint Architect (ASCP) Performed at: WB Performed By: #### 4 [id number] #### [facility] [address] [place] [address] Dr. Sierra Almonte Specimen adequacy: Comment Normal [facility] Comment on above: Result Comment: Sati sfactory for evaluation. Endocervical and/or squamous metaplastic cells (endocervical component) are present. Performed at: WB Performed By: #### 4 [id number] #### [facility] [address] [place] [address] Dr. Sierra Almonte Thyroidon 07-14-2021 US Thyroid [...] by Alexei Smith on 07/14/2021 1000 Normal [facility] Complete Blood Count with Au to Diffon 07-12-2021 Basophils (Bld) [#/Vol] 0.02 10*3/uL Normal 0.00-0.20 [facility] Comment on above: Performed By: #### C BCAD, RF, VITD, ESR, TSH reflex FT4, CMP, FT4 #### [facility] [address] [place], [place] [id number] Basophils/100 WBC (Bld) 0.3 % Normal [facility] Comment on above: Performed By: #### C BCAD, RF, VITD, ESR, TSH reflex FT4, CMP, FT4 #### [facility] [address] [place], [place] [id number] Eosinophils (Bld) [#/Vol] 0.08 10*3/uL Normal 0.02-0.50 [facility] Comment on above: Performed By: #### C BCAD, RF, VITD, ESR, TSH reflex FT4, CMP, FT4 #### [facility] [address] [place], [place] [id number] Eosinophils/100 WBC (Bld) 1.2 % Normal [facility] Comment on above: Performed By: #### C BCAD, RF, VITD, ESR, TSH reflex FT4, CMP, FT4 #### [facility] [address] [place], [place] [id number] Erythrocyte distribution width (RBC) [Ratio] 13.8 % Normal 11.0-15.0 [facility] Comment on above: Performed By: #### C BCAD, RF, VITD, ESR, TSH reflex FT4, CMP, FT4 #### [facility] [address] [place], [place] [id number] Hematocrit (Bld) [Volume fraction] 39.6 % Normal 35.0-47.0 [facility] Comment on above: Performed By: #### C BCAD, RF, VITD, ESR, TSH reflex FT4, CMP, FT4 #### [facility] [address] [place], [place] [id number] Hemoglobin (Bld) [Mass/Vol] 12.9 g/dL Normal 11.6-15.5 [facility] Comment on above: Performed By: #### C BCAD, RF, VITD, ESR, TSH reflex FT4, CMP, FT4 #### [facility] [address] [place], [place] [id number] Lymphocytes (Bld) [#/Vol] 1.3 10*3/uL Normal 0.9-3.9 [facility] Comment on above: Performed By: #### C BCAD, RF, VITD, ESR, TSH reflex FT4, CMP, FT4 #### [facility] [address] [place], [place] [id number] Lymphocytes/100 WBC (Bld) 20.3 % Normal [facility] Comment on above: Performed By: #### C BCAD, RF, VITD, ESR, TSH reflex FT4, CMP, FT4 #### [facility] [address] [place], [place] [id number] MCH (RBC) [Entitic mass] 28.3 pg Normal 27.0-33.0 [facility] Comment on above: Performed By: #### C BCAD, RF, VITD, ESR, TSH reflex FT4, CMP, FT4 #### [facility] [address] [place], [place] [id number] MCHC (RBC) [Mass/Vol] 32.6 g/dL Normal 32.0-36.0 [facility] [employer] Comment on above: Performed By: #### C BCAD, RF, VITD, ESR, TSH reflex FT4, CMP, FT4 #### [facility] [address] [place], [place] [id number] MCV (RBC) [Entitic vol] 87 fL Normal 80-100 [facility] [employer] Comment on above: Performed By: #### C BCAD, RF, VITD, ESR, TSH reflex FT4, CMP, FT4 #### [facility] [address] [place], [place] [id number] Monocytes (Bld) [#/Vol] 0.4 10*3/uL Normal 0.2-0.9 [facility] [employer] Comment on above: Performed By: #### C BCAD, RF, VITD, ESR, TSH reflex FT4, CMP, FT4 #### [facility] [address] [place], [place] [id number] Monocytes/100 WBC (Bld) 5.8 % Normal [facility] [employer] Comment on above: Performed By: #### C BCAD, RF, VITD, ESR, TSH reflex FT4, CMP, FT4 #### [facility] [address] [place], [place] [id number] Neutrophils (Bld) [#/Vol] 4.7 10*3/uL Normal 1.5-7.8 [facility] [employer] Comment on above: Performed By: #### C BCAD, RF, VITD, ESR, TSH reflex FT4, CMP, FT4 #### [facility] [address] [place], [place] [id number] Neutrophils/100 WBC (Bld) 72.1 % Normal [facility] [employer] Comment on above: Performed By: #### C BCAD, RF, VITD, ESR, TSH reflex FT4, CMP, FT4 #### [facility] [address] [place], [place] [id number] Platelet mean volume (Bld) [Entitic vol] 11.00 fL Normal 7.50-12.50 [facility] [employer] Comment on above: Performed By: #### C BCAD, RF, VITD, ESR, TSH reflex FT4, CMP, FT4 #### [facility] [address] [place], [place] [id number] Platelets (Bld) [#/Vol] 271 10*3/uL Normal 140-400 [facility] [employer] Comment on above: Performed By: #### C BCAD, RF, VITD, ESR, TSH reflex FT4, CMP, FT4 #### [facility] [address] [place], [place] [id number] RBC (Bld) [#/Vol] 4.56 10*6/uL Normal 3.90-5.20 [facility] [employer] Comment on above: Performed By: #### C BCAD, RF, VITD, ESR, TSH reflex FT4, CMP, FT4 #### [facility] [address] [place], [place] [id number] RDW-SD 43.5 fL Normal 37.0-50.0 [facility] [employer] Comment on above: Performed By: #### C BCAD, RF, VITD, ESR, TSH reflex FT4, CMP, FT4 #### [facility] [address] [place], [place] [id number] WBC (Bld) [#/Vol] 6.5 10*3/uL Normal 3.8-11.0 Levar cueva [place] [employer] Hel[employer] Comment on above: Performed By: #### C BCAD, RF, VITD, ESR, TSH reflex FT4, CMP, FT4 #### [facility] [address] [place], [place] [id number] Comprehensive Metabolic Pane [facility] 07-12-2021 Albumin [Mass/Vol] 4.9 g/dL Normal 3.6-5.1 Levar rn [place] [employer] Comment on above: Performed By: #### C BCAD, RF, VITD, ESR, TSH reflex FT4, CMP, FT4 #### [facility] [address] [place], [place] [id number] Albumin/Globulin [Mass ratio] 2.2 {ratio} Normal 1.0-2.5 [facility] Furniture Finisher Helper Comment on above: Performed By: #### C BCAD, RF, VITD, ESR, TSH reflex FT4, CMP, FT4 #### [facility] [address] [facility] [place] [id number] ALP [Catalytic activity/Vol] 63 U/L Normal 35-119 [facility] Comment on above: Performed By: #### C BCAD, RF, VITD, ESR, TSH reflex FT4, CMP, FT4 #### [facility] [address] [facility] [place] [id number] ALT [Catalytic activity/Vol] 26 U/L Normal 6-33 [facility] Comment on above: Result Comment: 01/26 Female reference range changed. Performed By: #### C BCAD, RF, VITD, ESR, TSH reflex FT4, CMP, FT4 #### [facility] [address] [place], [place] [id number] Anion gap [Moles/Vol] 18 mmol/L Normal 12-20 [facility] Comment on above: Result Comment: Effe ctive 03/03/2019 reference range changed. Performed By: #### C BCAD, RF, VITD, ESR, TSH reflex FT4, CMP, FT4 #### [facility] [address] [facility] [place] [id number] AST [Catalytic activity/Vol] 26 U/L Normal 9-34 [facility] Comment on above: Performed By: #### C BCAD, RF, VITD, ESR, TSH reflex FT4, CMP, FT4 #### [facility] [address] [place], [place] [id number] BUN/CREA 10 Ratio Normal 6-22 [facility] Comment on above: Performed By: #### C BCAD, RF, VITD, ESR, TSH reflex FT4, CMP, FT4 #### [facility] [address] [facility] [place] [id number] Calcium [Mass/Vol] 10.0 mg/dL Normal 8.6-10.2 [facility] Comment on above: Performed By: #### C BCAD, RF, VITD, ESR, TSH reflex FT4, CMP, FT4 #### [facility] [address] [facility] [place] [id number] Chloride [Moles/Vol] 105 mmol/L Normal 98-107 [facility] Specialist Comment on above: Performed By: #### C BCAD, RF, VITD, ESR, TSH reflex FT4, CMP, FT4 #### [facility] [address] [place], [place] [id number] CO2 [Moles/Vol] 21 mmol/L Normal 20-31 [facility] Specialist Comment on above: Performed By: #### C BCAD, RF, VITD, ESR, TSH reflex FT4, CMP, FT4 #### [facility] [address] [place], [place] [id number] Creatinine [Mass/Vol] 0.6 mg/dL Normal 0.6-1.4 [facility] Comment on above: Performed By: #### C BCAD, RF, VITD, ESR, TSH reflex FT4, CMP, FT4 #### [facility] [address] [place], [place] [id number] eGFRAA 132 mL/min/1.73m2 Normal >60 [facility] Comment on above: Performed By: #### C BCAD, RF, VITD, ESR, TSH reflex FT4, CMP, FT4 #### [facility] [address] [place], [place] [id number] eGFRNAA 109 mL/min/1.73m2 Normal >60 [facility] [place] [facility] Specialist Comment on above: Performed By: #### C BCAD, RF, VITD, ESR, TSH reflex FT4, CMP, FT4 #### [facility] [address] [place], [place] [id number] Globulin (S) [Mass/Vol] 2.2 g/dL Normal 1.9-3.7 [facility] Specialist Comment on above: Performed By: #### C BCAD, RF, VITD, ESR, TSH reflex FT4, CMP, FT4 #### [facility] [address] [place], [place] [id number] Glucose [Mass/Vol] 86 mg/dL Normal 65-99 [facility] Comment on above: Result Comment: For FASTING Glucose --- ADA reference ranges: Normal 65-99 mg/dl Prediabetes 100-125 Diabetes >/= 126 Performed By: #### C BCAD, RF, VITD, ESR, TSH reflex FT4, CMP, FT4 #### [facility] [address] [place], [place] [id number] Potassium [Moles/Vol] 4.1 mmol/L Normal 3.5-5.5 [facility] Furn[employer]isher Helper Comment on above: Performed By: #### C BCAD, RF, VITD, ESR, TSH reflex FT4, CMP, FT4 #### [facility] [address] [place], [place] [id number] Protein [Mass/Vol] 7.1 g/dL Normal 6.1-8.1 Jaffreydenver rn [place] [employer] Comment on above: Performed By: #### C BCAD, RF, VITD, ESR, TSH reflex FT4, CMP, FT4 #### [facility] [address] [place], [place] [id number] Sodium [Moles/Vol] 140 mmol/L Normal 135-146 [facility] rn [place] [employer] Comment on above: Performed By: #### C BCAD, RF, VITD, ESR, TSH reflex FT4, CMP, FT4 #### [facility] [address] [place], [place] [id number] TBIL <0.3 Normal [facility] Furniture Finisher Helper Comment on above: Performed By: #### C BCAD, RF, VITD, ESR, TSH reflex FT4, CMP, FT4 #### [facility] [address] [place], [place] [id number] Urea nitrogen [Mass/Vol] 7 mg/dL Normal 7-25 [facility] Furniture Finisher Helper Comment on above: Performed By: #### C BCAD, RF, VITD, ESR, TSH reflex FT4, CMP, FT4 #### [facility] [address] [place], [place] [id number] Free T4on 07-12-2021 Free T4 [Mass/Vol] 0.93 ng/dL Normal 0.80-1.80 [facility] rn [place] [employer] Comment on above: Performed By: #### C BCAD, RF, VITD, ESR, TSH reflex FT4, CMP, FT4 #### [facility] [address] [place], [place] [id number] Q - PASQUALE SCREEN IFA W/RFL TIT ER AND PATTERNon 07-12-2021 PASQUALE SCREEN, IFA Negative Normal NEGATIVE [facility] Specialist Comment on above: Order Comment: [facility] performed at: [employer], [facility], [address], [address] [facility], [place], [address], Map And Chart Mounter: Leonard Turpin MD [facility] Collection Date/Time: [facility] [...] AC-0: Negative International Consensus on PASQUALE Patterns (https://doi.org/10.1515/eypa-[email or web address]) For additional information, please refer to http://[email or web address]/[email or web address] (This link is being provided for informational/ educational purposes only.) Performed By: #### 2 49 #### [facility] [address] [place] [address] RBC Sedimentation Rateon ESR (Bld) [Velocity] 8.00 mm/h Normal 0.00-20.00 [facility] Comment on above: Performed By: #### C BCAD, RF, VITD, ESR, TSH reflex FT4, CMP, FT4 #### [facility] [address] [place], [place] [id number] Rheumatoid Factoron 07-13-19 22 RF <10 Normal [facility] Comment on above: Performed By: #### C BCAD, RF, VITD, ESR, TSH reflex FT4, CMP, FT4 #### [facility] [address] [place], [place] [id number] TSH w/ Reflex to Free T4on 0 07-12-2021 TSH 0.321 uIU/mL Low 0.400-4.500 [facility] Furniture Finisher Helper Comment on above: Performed By: #### C BCAD, RF, VITD, ESR, TSH reflex FT4, CMP, FT4 #### [facility] [address] [place], [place] [id number] Vitamin D 25-OHon 07-12-2021 VIT D 25 OH 19 ng/ml Low >29 [facility] Furniture Finisher Helper Comment on above: Result Comment: Ade min D Status Deficiency <20 ng/mL Insufficiency 20-29 ng/mL Optimal 30-100 ng/mL Possible Toxicity >=150 ng/mL Performed By: #### C BCAD, RF, VITD, ESR, TSH reflex FT4, CMP, FT4 #### [facility] [address] [place], [place] [id number] Comprehensive Metabolic Empo n 04-11-2021 Albumin [Mass/Vol] 4.6 g/dL Normal 3.2-5.5 [facility] Comment on above: Performed By: #### E BS CMP, EBS LIPID #### [facility] [address] [place] [id number] [place] Albumin/Globulin [Mass ratio] 1.9 {ratio} Normal [facility] Comment on above: Performed By: #### E BS CMP, EBS LIPID #### [facility] [address] [place] [address] [place] ALP [Catalytic activity/Vol] 43 U/L Normal 32-92 [facility] Comment on above: Performed By: #### E BS CMP, EBS LIPID #### [facility] [address] [place] [address] [place] ALT [Catalytic activity/Vol] 17 U/L Normal 10-60 [facility] Comment on above: Performed By: #### E BS CMP, EBS LIPID #### [facility] [address] [place] [address] [place] AST [Catalytic activity/Vol] 20 U/L Normal 10-42 [facility] Comment on above: Performed By: #### E BS CMP, EBS LIPID #### [facility] [address] [place] [address] [place] Bilirubin [Mass/Vol] 1.1 mg/dL Normal 0.3-1.2 [facility] Comment on above: Performed By: #### E BS CMP, EBS LIPID #### [facility] [address] Calcium [Mass/Vol] 9.6 mg/dL Normal 8.2-10.2 [facility] Comment on above: Performed By: #### E BS CMP, EBS LIPID #### [facility] [address] [place] [address] [place] Chloride [Moles/Vol] 102 mmol/L Normal 95-114 [facility] Comment on above: Performed By: #### E BS CMP, EBS LIPID #### [facility] [address] CO2 [Moles/Vol] 21.4 mmol/L Low 22.0-30.[address] [facility] Comment on above: Performed By: #### E BS CMP, EBS LIPID #### [address] Creatinine [Mass/Vol] 0.71 mg/dL Normal 0.44-1.03 [facility] Comment on above: Performed By: #### E BS CMP, EBS LIPID #### [address] Estimated GFR ( Michelle > 60 Normal [facility] Comment on above: Result Comment: GFR estimated reference range: According to KDOQI guidelines, <60 ml/min/1.73m2 is sufficient to diagnose a patient with chronic kidney disease. Performed By: #### E BS CMP, EBS LIPID #### [facility] [address] [place] [address] Estimated GFR (Non- Am > 60 Normal [facility] Comment on above: Performed By: #### E BS CMP, EBS LIPID #### [facility] [address] [place] [address] [place] Globulin (S) [Mass/Vol] 2.4 g/dL Normal [facility] Comment on above: Performed By: #### E BS CMP, EBS LIPID #### [facility] [address] [place] [address] [place] Glucose [Mass/Vol] 76 mg/dL Normal 70-100 [facility] Comment on above: Performed By: #### E BS CMP, EBS LIPID #### [facility] [address] [place] [id number] [place] Potassium [Moles/Vol] 3.3 mmol/L Low 3.5-5.1 [facility] Comment on above: Performed By: #### E BS CMP, EBS LIPID #### [facility] [address] [place] [id number] [facility] Protein [Mass/Vol] 7.0 g/dL Normal 6.1-7.9 [facility] Comment on above: Performed By: #### E BS CMP, EBS LIPID #### [facility] [address] [place] [id number] [facility] Sodium [Moles/Vol] 136 mmol/L Normal 136-146 [facility] Comment on above: Performed By: #### E BS CMP, EBS LIPID #### [facility] [address] [place] [id number] [place] Urea nitrogen [Mass/Vol] 5 mg/dL Low 9-23 [facility] Comment on above: Performed By: #### E BS CMP, EBS LIPID #### [facility] [address] [place] [id number] [facility] Lipid Profileon 04-11-2021 Cholesterol [Mass/Vol] 189 mg/dL Normal 140-200 [facility] Comment on above: Result Comment: Chol less than 200 mg/dl low risk Chol 201-239 mg/dl borderline risk Chol 240 mg/dl and greater high risk Performed By: #### E BS CMP, EBS LIPID #### [facility] [address] [place] [id number] [place] Cholesterol in HDL [Mass/Vol] 69 mg/dL Normal 35-85 [facility] Comment on above: Result Comment: HDL CHOL ATP-III CLASSIFICATION Cardiovascular Risk HDL > or equal to 60 mg/dL LOW HDL < 40 mg/dL HIGH Performed By: #### E BS CMP, EBS LIPID #### [facility] [address] [place] [address] [place] Cholesterol.total/C holesterol in HDL [Mass ratio] 2.7 {ratio} Normal <5.0 [facility] Comment on above: Result Comment: PERF ORMED BY: [place] [address] PATHOLOGIST MELT DOWN FURNACE OPERATOR PAT PETERS M.D. Performed By: #### E BS CMP, EBS LIPID #### [facility] [address] LDL Cholesterol,Calcula shadi 107 mg/dL High 0-100 [facility] Comment on above: Result Comment: LDL ATP III CLASSIFICATION LDL less than 100 mg/dL Optimal LDL 100-129 mg/dL Near or above optimal LDL 130-159 mg/dL Borderline high LDL 160-189 mg/dL High LDL greater than 189 mg/dL Very high Performed By: #### E BS CMP, EBS LIPID #### [address] Triglyceride w/Reflex 64 mg/dL Normal 35-149 [facility] Comment on above: Result Comment: TRIG ATP III CLASSIFICATION TRIG less than 150 mg/dL Normal TRIG 150-199 mg/dL Borderline high TRIG 200-500 mg/dL High TRIG greater than 500 mg/dL Very high Standard traceable to the Center for Disease Conrtrol and Prevention (CDC) test method. Performed By: #### E BS CMP, EBS LIPID #### [facility] [address] [place] [address] VLDL CHOLESTEROL 12 mg/dL Normal [facility] Comment on above: Performed By: #### E BS CMP, EBS LIPID #### [facility] [address] [place] [address] Covid-19 PCR (CVDTBH)on SARS-CoV-2 (COVID-19) RNA ERIC+probe Ql (Unsp spec) Detected Critically abnormal NOT DETECTED [facility] Comment on above: Result Comment: This test is not yet approved or cleared by the [place] FDA. When there are no FDA-approved or cleared tests available, and other criteria are met, FDA can make tests available under an emergency access mechanism called an Emergency Use Authorization (EUA). The EUA for this test is supported by the District Administrator of Health and Human Service's (HHS's) declaration [...] used). Performed By: #### C VDTBH #### [facility] [address] [place] [address] Dr. Sierra Almonte CHLAMYDIA/GONOCOCCUS ERIC (SW AB/URINE/PAPon 12-14-2020 Chlamydia trachomatis, ERIC Negative Normal Negative [facility] Comment on above: Performed By: #### C T/NGNA #### [facility] [address] [place] [address] Dr. Sierra Almonte Neisseria gonorrhoeae, ERIC Negative Normal Negative [facility] Comment on above: Performed By: #### C T/NGNA #### [facility] [address] [place] [address] Dr. Sierra Almonte VAGINITIS/VAGINOSIS DNA PROB Andrew 12-11-2020 Loc species Negative Normal Negative [facility] Comment on above: Performed By: #### V AGINT #### [facility] [address] [place] [address] Dr. Sierra Almonte Gardnerella vaginalis Positive Abnormal Negative [facility] Comment on above: Performed By: #### V AGINT #### [facility] [address] [place] [address] Dr. Sierra Almonte Trichomonas vaginalis Negative Normal Negative [facility] Comment on above: Performed By: #### V AGINT #### [facility] [address] [place] [address] Dr. Sierra Almonte Vital Signs Date Time Vital Sign Value Performing Clinician Faci lity 04-08-2024 11:58-0500 Body mass index (BMI) [Ratio] 28.48 kg/m2 Dogi Work Phone: [facility] 04-08-2024 11:58-0500 Body weight 72.94 kg Raghavendra Christina DO Work Phone: [facility] 04-08-2024 11:58-0500 Diastolic blood pressure 74 mm[Hg] Raghavendra Christina DO Work Phone: [facility] 04-08-2024 11:58-0500 Systolic blood pressure 110 mm[Hg] Raghavendra Christina DO Work Phone: [facility] 04-02-2024 11:03-0500 Body mass index (BMI) [Ratio] 27.99 kg/m2 Teresa Jo Ann-Nossek FACTORY LABORER-PIPE BENDING MACHINE OPERATOR Work Phone: [facility] 04-02-2024 11:03-0500 Body weight 71.67 kg Teresa Jo Ann-Nossek FACTORY LABORER-PIPE BENDING MACHINE OPERATOR Work Phone: [facility] 04-02-2024 11:03-0500 Diastolic blood pressure 72 mm[Hg] Teresa Jo Ann-Nossek FACTORY LABORER-PIPE BENDING MACHINE OPERATOR Work Phone: [facility] 04-02-2024 11:03-0500 Heart rate 105 /min Teresa Jo Ann-Nossek FACTORY LABORER-PIPE BENDING MACHINE OPERATOR Work Phone: [facility] 04-02-2024 11:03-0500 Systolic blood pressure 122 mm[Hg] Teresa Jo Ann-Nossek FACTORY LABORER-PIPE BENDING MACHINE OPERATOR Work Phone: [facility] 03-25-2024 10:19-0500 Body mass index (BMI) [Ratio] 27.63 kg/m2 Raghavendra Christina DO Work Phone: [facility] 03-25-2024 10:19-0500 Body weight 70.76 kg Raghavendra Christina DO Work Phone: [facility] 03-25-2024 10:19-0500 Diastolic blood pressure 68 mm[Hg] Raghavendra Christina DO Work Phone: [facility] 03-25-2024 10:19-0500 Systolic blood pressure 100 mm[Hg] Raghavendra Christina DO Work Phone: [facility] 03-11-2024 10:10-0500 Body mass index (BMI) [Ratio] 27.95 kg/m2 Raghavendra Christina DO Work Phone: [facility] 03-11-2024 10:10-0500 Body weight 71.58 kg Raghavendra Christina DO Work Phone: [facility] 03-11-2024 10:10-0500 Diastolic blood pressure 68 mm[Hg] Raghavendra Christina DO Work Phone: [facility] 03-11-2024 10:10-0500 Systolic blood pressure 104 mm[Hg] Raghavendra Christina DO Work Phone: [facility] 02-13-2024 13:14-0500 Body height 160 cm Emerita Gillmor ACADEMIC SERVICES PROFESSIONAL Work Phone: [facility] 02-13-2024 13:14-0500 Body mass index (BMI) [Ratio] 26.93 kg/m2 Emerita Gillmor ACADEMIC SERVICES PROFESSIONAL Work Phone: [facility] 02-13-2024 13:14-0500 Body weight 68.95 kg Emerita Gillmor ACADEMIC SERVICES PROFESSIONAL Work Phone: [facility] 02-13-2024 13:14-0500 Diastolic blood pressure 72 mm[Hg] Emerita Gillmor ACADEMIC SERVICES PROFESSIONAL Work Phone: [facility] 02-13-2024 13:14-0500 Heart rate 109 /min Emerita Gillmor ACADEMIC SERVICES PROFESSIONAL Work Phone: [facility] 02-13-2024 13:14-0500 Systolic blood pressure 119 mm[Hg] Emerita Gillmor ACADEMIC SERVICES PROFESSIONAL Work Phone: [facility] 02-11-2024 10:19-0500 Body mass index (BMI) [Ratio] 27.3 kg/m2 Raghavendra Christina DO Work Phone: [facility] 02-11-2024 10:19-0500 Body weight 71.58 kg Raghavendra Christina DO Work Phone: [facility] 02-11-2024 10:19-0500 Diastolic blood pressure 70 mm[Hg] Raghavendra Christina DO Work Phone: [facility] 02-11-2024 10:19-0500 Systolic blood pressure 120 mm[Hg] Raghavendra Christina DO Work Phone: [facility] 01-10-2024 10:44-0500 Body mass index (BMI) [Ratio] 26.3 kg/m2 Raghavendra Christina DO Work Phone: [facility] 01-10-2024 10:44-0500 Body weight 68.95 kg Raghavendra Christina DO Work Phone: [facility] 01-10-2024 10:44-0500 Diastolic blood pressure 74 mm[Hg] Raghavendra Christina DO Work Phone: [facility] 01-10-2024 10:44-0500 Systolic blood pressure 116 mm[Hg] Raghavendra Christina DO Work Phone: [facility] 01-01-2024 11:40-0500 Body mass index (BMI) [Ratio] 25.78 kg/m2 Teresa Jo Ann-Nossek FACTORY LABORER-PIPE BENDING MACHINE OPERATOR Work Phone: [facility] 01-01-2024 11:40-0500 Body weight 67.59 kg Teresa Jo Ann-Nossek FACTORY LABORER-PIPE BENDING MACHINE OPERATOR Work Phone: [facility] 01-01-2024 11:40-0500 Diastolic blood pressure 82 mm[Hg] Teresa Jo Ann-Nossek FACTORY LABORER-PIPE BENDING MACHINE OPERATOR Work Phone: [facility] 01-01-2024 11:40-0500 Heart rate 99 /min Teresa Jo Ann-Nossek FACTORY LABORER-PIPE BENDING MACHINE OPERATOR Work Phone: [facility] 01-01-2024 11:40-0500 Systolic blood pressure 100 mm[Hg] Teresa Jo Ann-Nossek FACTORY LABORER-PIPE BENDING MACHINE OPERATOR Work Phone: [facility] 11-28-2023 14:53-0400 Body mass index (BMI) [Ratio] 25.57 kg/m2 Raghavendra Christina DO Work Phone: [facility] 11-28-2023 14:53-0400 Body weight 67.04 kg Raghavendra Christina DO Work Phone: [facility] 11-28-2023 14:53-0400 Diastolic blood pressure 74 mm[Hg] Raghavendra Christina DO Work Phone: [facility] 11-28-2023 14:53-0400 Systolic blood pressure 114 mm[Hg] Raghavendra Christina DO Work Phone: [facility] 11-01-2023 15:16-0400 Body mass index (BMI) [Ratio] 25.6 kg/m2 [facility] Nurse [facility] 11-01-2023 15:16-0400 Body weight 67.13 kg [facility] Nurse [facility] 10-18-2023 11:32-0400 Body height 161.9 cm Ysabel Cabral MD Work Phone: [facility] 10-18-2023 11:32-0400 Body mass index (BMI) [Ratio] 26.05 kg/m2 Ysabel Cabral MD Work Phone: [facility] 10-18-2023 11:32-0400 Body weight 68.31 kg Ysabel Cabral MD Work Phone: [facility] 10-18-2023 11:32-0400 Diastolic blood pressure 76 mm[Hg] Ysabel Cabral MD Work Phone: [facility] 10-18-2023 11:32-0400 Heart rate 92 /min Ysabel Cabral MD Work Phone: [facility] 10-18-2023 11:32-0400 Respiratory rate 20 /min Ysabel Cabral MD Work Phone: [facility] 10-18-2023 11:32-0400 Systolic blood pressure 122 mm[Hg] Ysabel Cabral MD Work Phone: [facility] Healthcare Encounters Encounter Date Encounter Type Care Provider Facility Start: 04-15-2024 End: 04-15-2024 Clinisync Result Encounter Generic External Data Provider [facility] External Department Unsolicited Start: 04-15-2024 End: 04-15-2024 Clinisync Result Encounter Generic External Data Provider [facility] External Department Unsolicited Start: 04-08-2024 End: 04-08-2024 Bamboo flowsheet Raghavendra Christina DO Work Phone: [facility] Start: 04-08-2024 End: 04-08-2024 Bamboo flowsheet Raghavendra Christina DO Work Phone: [facility] Start: 04-08-2024 End: 04-08-2024 ambulatory RAGHAVENDRA CHRISTINA Not Available Start: 04-08-2024 End: 04-08-2024 Office outpatient visit 15 minutes Raghavendra Christina DO Work Phone: [facility] Comment on above: Third trimester preg anahy; 31 weeks gestation of ; Multigravida of advanced maternal age in third trimester Start: 04-02-2024 End: 04-02-2024 Bamboo flowsheet Teresa Cheri Jo Ann-Nossek FACTORY LABORER-PIPE BENDING MACHINE OPERATOR Work Phone: [facility] Start: 04-02-2024 End: 04-02-2024 Bamboo flowsheet Teresa Cheri Jo Ann-Nossek FACTORY LABORER-PIPE BENDING MACHINE OPERATOR Work Phone: [facility] Start: 04-02-2024 End: 04-02-2024 ambulatory TERESA Cheri JO ANN-NOSSEK Not Available Start: 04-02-2024 End: 04-02-2024 Office outpatient visit 25 minutes Teresa Cheri Jo Ann-Nossek FACTORY LABORER-PIPE BENDING MACHINE OPERATOR Work Phone: [facility] Comment on above: Generalized anxiety disorder (CMS/HCC); Attention deficit hyperactivity disorder (ADHD), combined type (CMS/HCC); Episodic mood disorder (CMS/HCC) Start: 03-25-2024 End: 03-25-2024 Bamboo flowsheet Raghavendra Christina DO Work Phone: [facility] Start: 03-25-2024 End: 03-25-2024 Bamboo flowsheet Raghavendra Christina DO Work Phone: [facility] Start: 03-25-2024 End: 03-25-2024 Clinisync Result Encounter Generic External Data Provider [facility] External Department Unsolicited Start: 03-25-2024 End: 03-25-2024 Office outpatient visit 15 minutes Raghavendra Christina DO Work Phone: [facility] Comment on above: Third trimester preg anahy; 29 weeks gestation of Start: 03-25-2024 End: 03-25-2024 ambulatory RAGHAVENDRA CHRISTINA Not Available Start: 03-11-2024 End: 03-11-2024 Bamboo flowsheet Raghavendra [...] 02-13-2024 End: 02-13-2024 Bamboo flowsheet Emerita Warren ACADEMIC SERVICES PROFESSIONAL Work Phone: [facility] Start: 02-13-2024 End: 02-13-2024 Bamboo flowsheet Emerita Warren ACADEMIC SERVICES PROFESSIONAL Work Phone: [facility] & [facility] Start: 02-13-2024 End: 02-13-2024 ambulatory EMERITA BER Not Available Start: 02-13-2024 End: 02-13-2024 Office outpatient visit 15 minutes Emerita Warren ACADEMIC SERVICES PROFESSIONAL Work Phone: [facility] Comment on above: 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) (Primary Dx); , unspecified gestational age; Primary insomnia; Generalized anxiety disorder (CMS/HCC) Start: 02-11-2024 End: 02-11-2024 Bamboo flowsheet Raghavendra Christina DO Work Phone: [facility] Start: 02-11-2024 End: 02-11-2024 Bamboo flowsheet Raghavendra Christina DO Work Phone: [facility] Start: 02-11-2024 End: 02-11-2024 ambulatory RAGHAVENDRA CHRISTINA Not Available Start: 02-11-2024 End: 02-11-2024 Office outpatient visit 15 minutes Raghavendra Christina DO Work Phone: [facility] Comment on above: 23 weeks gestation o f ; Second trimester ; Diabetes mellitus screening Start: 01-10-2024 End: 01-10-2024 Bamboo flowsheet Raghavendra Christina DO Work Phone: [facility] Start: 01-10-2024 End: 01-18-2024 Bamboo [...] 01-01-2024 Bamboo flowsheet Teresa Alonzo Jo Ann-Nossek FACTORY LABORER-[employer] Work Phone: [facility] Start: 01-01-2024 End: 01-01-2024 Bamboo flowsheet Teresa Cheri Jo Ann-Nossek FACTORY LABORER[employer] Work Phone: [facility] Start: 01-01-2024 End: 01-01-2024 ambulatory TERESA Cheri JO ANN-NOSSEK Not Available Start: 01-01-2024 End: 01-01-2024 Office outpatient visit 25 minutes Teresa Cheri Jo Ann-Nossek FACTORY LABORER[employer] Work Phone: [facility] Comment on [...] 11-27-2023 Office outpatient visit 15 minutes Teresa Ornelas FACTORY LABORER-PIPE BENDING MACHINE OPERATOR Work Phone: [facility] Comment on above: Attention deficit hy peractivity disorder (ADHD), combined type (CMS/HCC); Generalized anxiety disorder (CMS/HCC) Start: 11-27-2023 End: 11-27-2023 ambulatory TERESA ORNELAS Not Available Start: 11-01-2023 End: 11-01-2023 ambulatory [...] minutes Evonne Jaydon DO Work Phone: [facility] [place] [facility] Comment on above: 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) (Primary Dx); Generalized anxiety disorder (CMS/HCC); Primary insomnia; , unspecified gestational age Start: 09-25-2023 End: 09-25-2023 ambulatory YSABEL CABRAL Not Available Start: 09-25-2023 End: 09-25-2023 ambulatory TERESA Alonzo JO ANN-NOSSEK Not Available Start: 2023 End: [...] TERESA Alonzo JO ANN-NOSSEK Not Available Start: 11-09-2021 End: 11-09-[address] TALITA DODSON Facility:[facility]1 Start: 05-11-2021 ([facility] C Vac) [facility] Co vid Vaccine Vicky Joe [facility] Start: 05-11-2021 End: 05-11-2021 ambulatory Vicky Joe Other [facility] [employer] Other Start: 03-01-2021 End: 03-01-2021 ambulatory CHLOE CARVAJAL Facility:[facility]1 Start: 12-10-2020 End: 12-10-[address] TALITA DODOSN Facility:[facility] Procedures Date Procedure Procedure Detail Performing Clinician Start: 04-15-2024 US OB GROWTH Generic Ex ternal Data Provider Start: 04-15-2024 US OB BPP W NON-STRESS Generic External Data Provider Start: 04-08-2024 Urnls dip stick/tabl et rgnt non-auto w/o micrscp Veda Machado PA Work Phone: Start: 03-25-2024 US OB GROWTH Generic Ex ternal Data Provider Start: 03-25-2024 Urnls dip stick/tabl et rgnt non-auto w/o micrscp Raghavendra Christina DO Work Phone: Start: 03-11-2024 Urnls dip stick/tabl et rgnt non-auto w/o micrscp Raghavendra Christina DO Work Phone: Start: 03-10-2024 ALL CBC WITH AUTO DIFF Generic External Data Provider Start: 03-07-2024 [facility] UA (CLEAN/CATCH) PIPE BENDING MACHINE OPERATOR/MICRO IF IND. Raghavendra Christina DO Work [...] RHF, URCA #### [facility] [address] [facility], [address] Plan of Treatment Date Care Activity Detail Author Start: 01-09-2027 Screening for malign ant neoplasm of cervix [facility] Start: 06-17-2024 End: 06-17-2024 Patient encounter procedure 06/17/2024 11:30 AM EDT Office Visit [facility] [address] [facility] [address] [place] [address] Teresa Ornelas, FACTORY LABORER-PIPE BENDING MACHINE OPERATOR [address] [facility] [address] [place] [address] [facility] Start: 05-06-2024 End: 05-06-2024 Patient encounter procedure [facility] [place] [facility] Start: 04-23-2024 End: 04-23-2024 Patient encounter procedure 04/23/2024 11:10 AM EST Routine [facility] [address] [place] [address] Raghavendra Vasquez, DO [address] [place], [place] [id number] [facility] Start: 04-08-2024 End: 10-06-2024 US biophysical profile w non stress test US biophysical profile w non stress test Imaging Routine Multigravida of advanced maternal age in third trimester Expected: 04/08/2024 (Approximate), Expires: 10/06/2024 [facility] Work Phone: Comment on above: Expected: 04/08/2024 (Approximate), Expires: 10/06/2024 Start: 04-08-2024 End: 04-08-2024 Patient encounter procedure 04/08/2024 11:40 AM EST Routine [facility] [address] [place] [phone] Raghavendra Vasquez, DO [address] [place] [address] [facility] Start: 04-02-2024 End: 04-02-2024 Patient encounter procedure 04/02/2024 11:00 AM EST Office Visit [facility] [address] [facility] [address] [place] [address] Teresa Ornelas, FACTORY LABORER-PIPE BENDING MACHINE OPERATOR [address] [facility] [address] [place] [address] [facility] Start: 03-25-2024 End: 03-25-2024 Patient encounter procedure 03/25/2024 10:00 AM EST Routine [facility] [address] [place] [phone] Raghavendra Vasquez, DO [address] [facility] [address] [place] [address] [facility] Start: 03-11-2024 End: 03-11-2024 Patient encounter procedure 03/11/2024 9:40 AM EST Routine [facility] [address] [place] [phone] Raghavendra Vasquez, DO [address] [place] [address] [facility] Start: 02-13-2024 End: 02-13-2024 Patient encounter procedure 02/13/2024 1:00 PM EST Office Visit [facility] [place] [facility] [address] [place] [phone] Emerita Warren, ACADEMIC SERVICES PROFESSIONAL [address] [place], [place] [address] [place] [address] Start: 02-11-2024 End: 02-10-2025 CBC panel - Blood by Automated count CBC Lab Routine Diabetes mellitus screening Expected: 02/11/2024 (Approximate), Expires: 02/10/2025 [facility] Work Phone: Comment on above: Expected: 02/11/2024 (Approximate), Expires: 02/10/2025 Start: 02-11-2024 End: 02-10-2025 Measurement of glucose 1 hour after glucose challenge for glucose tolerance test Glucose tolerance, 1 hour Lab Routine Diabetes mellitus screening Expected: 02/11/2024 (Approximate), Expires: 02/10/2025 [facility] Comment on above: Expected: 02/11/2024 (Approximate), Expires: 02/10/2025 Start: 02-11-2024 End: 02-10-2025 US for US OB SCAN FOR GROWTH Imaging Routine 23 weeks gestation of Diabetes mellitus screening Expected: 02/11/2024 (Approximate), Expires: 02/10/2025 [facility] Comment on above: Expected: 02/11/2024 (Approximate), Expires: 02/10/2025 Start: 02-11-2024 End: 02-11-2024 Patient encounter procedure 02/11/2024 9:40 AM EST Routine [facility] [address] [facility] [place] [phone] Raghavendra Vasquez, DO [address] [place] [address] [facility] Start: 01-28-2024 End: 01-28-2024 Professional / ancillary services management 01/28/2024 11:00 AM EST Ancillary Procedure [facility] [address] [place] [phone] [facility] Start: 01-10-2024 End: 07-09-2024 [...] EST Routine [facility] [address] [place] [address] Raghavendra Vasquez, DO [address] [place] [address] [facility] Start: 01-01-2024 End: 01-01-2024 Patient encounter procedure 01/01/2024 11:30 AM EST Office Visit [facility] [address] [facility] [address] [place] [address] Teresa Ornelas, FACTORY LABORER-[facility] [address] [facility] [address] [place] [address] [facility] Start: 12-18-2023 End: 12-18-2023 Patient encounter procedure 12/18/2023 5:30 PM EDT Office Visit [facility] [place] [facility] [address] [place] [address] Evonne Childress, DO [address] [place] [address] [facility] [place] [facility] Start: 11-28-2023 End: 11-28-2023 Patient encounter procedure 11/28/2023 2:20 PM EDT Routine [facility] [address] [place] [address] Raghavendra Vasquez, DO [address] [facility] [place] [address] [facility] Start: 11-27-2023 End: 11-27-2023 Patient encounter procedure 11/27/2023 11:00 AM EDT Office [facility] [address] [facility] [address] [place] [phone] Teresa Ornelas, FACTORY LABORER-PIPE BENDING MACHINE OPERATOR [address] [facility] [address] [place] [address] [facility] Start: 11-01-2023 End: 10-31-2024 ABO/Rh ABO/Rh Lab Routine Missed menses Expected: 11/01/2023 (Approximate), Expires: 10/31/2024 [facility] Comment on above: Expected: 11/01/2023 (Approximate), Expires: 10/31/2024 Start: 11-01-2023 End: 11-01-2023 ambulatory 11/01/2023 2:00 PM EDT Initial [facility] [address] [facility] [place] [address] [facility] Start: 11-01-2023 End: 10-31-2024 Blood type and Indirect antibody screen panel - Blood Type and screen Lab Routine Missed menses Expected: 11/01/2023 (Approximate), Expires: 10/31/2024 [facility] Work Phone: Comment on above: Expected: 11/01/2023 (Approximate), Expires: 10/31/2024 Start: 11-01-2023 End: 10-31-2024 US Pelvis transvaginal US OB transvaginal Imaging Routine Missed menses Expected: 11/01/2023 (Approximate), Expires: 10/31/2024 [facility] Comment on above: Expected: 11/01/2023 (Approximate), Expires: 10/31/2024 Start: 11-01-2023 End: 11-01-2023 Professional / ancillary services management 11/01/2023 1:30 PM EDT Ancillary Procedure [facility] [address] [facility] [place] [address] [facility] Start: 10-28-2023 Influenza vaccination Influenza Vacc ine (#1) [facility] Start: 10-18-2023 End: 10-18-2023 Patient encounter procedure 10/18/2023 11:40 AM EDT Office Visit [facility] [address] [place] [phone] Ysabel Cabral MD [address] [place], [place] [phone] [facility] Start: 10-18-2023 End: 10-18-2023 Patient encounter procedure 10/18/2023 10:30 AM EDT Procedure Visit [facility] [place] [facility] [address] [place] [address] Evonne Childress DO [address] [place], [place] [id number] Arrived [facility] Comment on above: Arrived Start: 09-10-2017 Screening for malign ant neoplasm of cervix [facility] Start: 09-10-2008 Screening for malign ant neoplasm of cervix Pap Smear [facility] Bacteria identified in Urine by Culture Urine culture Microbiology Routine Missed menses Ordered: 11/01/2023 [facility] Comment on above: Ordered: 11/01/2023 CBC W Auto Different ial panel - Blood CBC and differential Lab Routine Missed menses Ordered: 11/01/2023 [facility] Comment on above: Ordered: 11/01/2023 CHLAMYDIA TRACHOMATI S (GENITO/STI) CHLAMYDIA TRACHOMATIS (GENITO/STI) Lab Routine STD exposure Ordered: 01/10/2024 [facility] Comment on above: Ordered: 01/10/2024 Cytology Cervical or vaginal smear or scraping study Pap Smear Pathology and Cytology Routine Well woman exam with routine gynecological exam Ordered: 01/10/2024 [facility] Comment on above: Ordered: 01/10/2024 Hemoglobin A1c/Hemoglobin.total in Blood Hemoglobin A1c Lab Routine Missed menses Ordered: 11/01/2023 [facility] Comment on above: Ordered: 11/01/2023 Hepatitis B virus surface Ag [Presence] in Serum or Plasma by Immunoassay Hepatitis B surface antigen Lab Routine Missed menses Ordered: 11/01/2023 [facility] Comment on above: Ordered: 11/01/2023 Hepatitis C virus Ab [Presence] in Serum or Plasma by Immunoassay Hepatitis C antibody Lab Routine Missed menses Ordered: 11/01/2023 [facility] Comment on above: Ordered: 11/01/2023 HIV-1/HIV-2 antigen/antibody combination immunoassay HIV-1 and HIV-2 antibodies Lab Routine Missed menses Ordered: 11/01/2023 [facility] Comment on above: Ordered: 11/01/2023 Human papilloma viru s DNA [Presence] in Unspecified specimen by Probe with amplification HPV DNA probe, amplified Microbiology Routine Well woman exam with routine gynecological exam Ordered: 01/10/2024 [facility] Comment on above: Ordered: 01/10/2024 Neisseria gonorrhoea e DNA [Presence] in Unspecified specimen by ERIC with probe detection Neisseria gonorrhea DNA probe, direct Lab Routine STD exposure Ordered: 01/10/2024 [facility] Comment on above: Ordered: 01/10/2024 Reagin Ab [Presence] in Serum by RPR RPR Lab Routine Missed menses Ordered: 11/01/2023 [facility] Comment on above: Ordered: 11/01/2023 Rubella antibody, IgG Rubella an tibody, IgG Lab Routine Missed menses Ordered: 11/01/2023 [facility] Comment on above: Ordered: 11/01/2023 SURESWAB(R) ADVANCED VAGINITIS PLUS, TMA SURESWAB(R) ADVANCED VAGINITIS PLUS, TMA Pathology and Cytology Routine Vaginal discharge Ordered: 01/10/2024 [facility] Work Phone: Comment on above: Ordered: 01/10/2024 Immunizations Immunization Date Immunization Notes Care Provider Corrina hanson 05-11-2021 COVID-19 En Joe Other [employer] Other 10-02-2016 influenza, injectabl e, quadrivalent, preservative free Evonne Childress DO Work Phone: [facility] 10-02-2016 influenza virus vaccine, unspecified formulation Evonne Jaydon DO Work Phone: [facility] 10-13-2015 influenza, injectabl e, quadrivalent, preservative free Evonne Jaydon DO Work Phone: [facility] 12-02-2014 influenza, seasonal, injectable, preservative free Evonne Jaydon DO Work Phone: [facility] Healthcare Payers Date Payer Category Payer Medicaid [employer] [place] [employer] [id number] 2021-Present [address] [place] [id number] 2021 Medicaid (Managed Care) [facility] MEDICAID [id number] 1987 Unknown [id number]. 59 1987 Unknown [id number] 2.840.1.691667.3.579.2. 593 1987 Unknown [id number] 2.840.1.421659.3.579.2. 593 1987 Unknown [id number] 2.840.1.210304.3.579.2. 1259 1987 Unknown [id number] 2.840.1.048235.3.579.2. 1259 1987 Unknown [id number] 2.840.1.760826.3.579.2. 1258 1987 Unknown [id number] 2.16.840.1.790832.3.579.2. 1258 1987 Unknown [id number] 2.16.840.1.434603.3.579.2. 1258 1987 Unknown [id number] 2..840.1.423731.3.579.2. 1258 1987 Unknown [id number] 2..840.1.449521.3.579.2. 1258 1987 Unknown [id number] 2..840.1.847505.3.579.2. 1258 1987 Unknown [id number] 2..840.1.458886.3.579.2. 1258 1987 Unknown [id number] 2.840.1.498752.3.579.2. 1258 1987 Unknown [id number] 2..840.1.599519.3.579.2. 1258 1987 Unknown [id number] 2.840.1.328465.3.579.2. 1258 1987 Unknown [id number] 2.840.1.053130.3.579.2. 1258 1987 Unknown [id number] 2.840.1.259202.3.579.2. 1258 1987 Unknown [id number] 2..840.1.945139.3.579.2. 1258 1987 Unknown [id number] 2..840.1.812304.3.579.2. 1258 1987 Unknown [id number] 2..840.1.694564.3.579.2. 1258 1987 Unknown [id number] 2.16.840.1.036666.3.579.2. 1258 1987 Unknown [id number] 2.16.840.1.586756.3.579.2. 1259 1987 Unknown [id number] 2.16.840.1.580908.3.579.2. 9 1987 Unknown [id number] 2.16.840.1.297094.3.579.2. 9 1987 Unknown [id number] 2.16.840.1.071175.3.579.2. 1258 1987 Unknown [id number] 2.16.840.1.357632.3.579.2. 1258 1987 Unknown [id number] 2.16.840.1.197964.3.579.2. 1259 1959 Unknown [id number] 2.16.840.1.463586.19 Social History Date Type Detail Facility Unknown if ever smoked [employer] Other Start: 2022 End: 01-01-2024 Sex Assigned At [employer] Other Start: 12-22-2022 [facility] Start: 12-22-2022 [...] file [facility] Start: 01-01-2024 End: 04-02-2024 Alcoholic beverage intake Ex-drinker (finding) [facility] Start: 01-01-2024 Alcohol Comment I have a glass of wine or 2 glasses each evening with dinner [facility] Clinical Notes 05-11-2021 to 04-08-2024 Shelli Toño, POKE IN - 04/08/2024 11:40 AM 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 female who presents for Routine Visit Patient presents today for Return OB appointment. MEDICATIONS Current Outpatient Medications Medication Instructions albuterol HFA (ProAir HFA) 90 mcg/act inhaler cyclobenzaprine (Flexeril) 5 MG tablet 1/2-1 po q hs iron polysaccharides (PROFE) 391.3 mg, Oral, Daily omeprazole (PRILOSEC) 20 mg, Oral, Daily before breakfast, Do not crush or chew. sertraline (ZOLOFT) 50 mg, Daily ALLERGIES Allergies Allergen Reactions Amitriptyline Other Reaction(s): Other (See Comments) Extreme drowsiness Aspirin Other Reaction(s): hives,difficulty breathing Cyclobenzaprine Diclofenac Unknown Ibuprofen Other Reaction(s): All NSAIDS, hives Lamotrigine Other Reaction(s): rash-per patient report Meloxicam Unknown Naproxen Unknown Nsaids Other Reaction(s): Unknown Zoloft [Sertraline] PROBLEMS Active Ambulatory Problems Diagnosis Date Noted Attention deficit hyperactivity disorder (ADHD), combined type ([facility]) 07/04/2022 Episodic mood disorder ([facility]) 07/04/2022 Generalized anxiety disorder ([facility]) 07/04/2022 Panic disorder ([facility]) 07/04/2022 Acquired scoliosis 09/09/2016 Allergic rhinitis 10/16/2019 Anxiety 01/31/2020 Asthma ([facility]) 12/31/2014 Chronic fatigue syndrome 07/03/2016 Chronic gastritis without bleeding 12/28/2022 Irritable bowel syndrome 07/03/2016 Migraine without aura and without status migrainosus, not intractable ([facility]) 09/19/2017 Mild intermittent asthma ([facility]) 02/28/2021 Primary localized osteoarthrosis of ankle and foot 03/13/2019 Vitamin D deficiency 12/28/2022 Headache 06/28/2023 Inadequate sleep hygiene 06/28/2023 Migraine ([facility]) 06/28/2023 Tenosynovitis of foot 06/28/2023 Nausea and vomiting 06/28/2023 Common migraine with intractable migraine ([facility]) 06/28/2023 Pain in limb 06/28/2023 Chronic tension-type headache, not intractable 06/28/2023 Sleep disturbance 06/28/2023 Insomnia, unspecified 06/28/2023 Other problems related to lifestyle 06/28/2023 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 08/10/2023 Resolved Ambulatory Problems Diagnosis Date Noted No Resolved Ambulatory Problems Past Medical History: Diagnosis Date Adenoma of left breast ADHD (attention deficit hyperactivity disorder) ([facility]) Anemia Back pain Common migraine ([facility]) 08/17/2015 Depression ([facility]) H/O colonoscopy H/O umbilical hernia repair Insomnia 06/25/2017 Migraines ([facility]) Nausea with vomiting 08/17/2015 Tendonitis of right hand Tension headache 08/17/2015 HISTORY PAST MEDICAL HISTORY SOCIAL HISTORY Past Medical History: Diagnosis Date Adenoma of left breast removed 2013 ADHD (attention deficit hyperactivity disorder) ([facility]) Anemia Anxiety Asthma ([facility]) Back pain Common migraine ([facility]) 08/17/2015 Depression ([facility]) H/O colonoscopy 2012 H/O umbilical hernia repair 2007 Headache 08/17/2015 Inadequate sleep hygiene 04/23/2018 Insomnia 06/25/2017 Migraine ([facility]) 03/22/2017 Migraines ([facility]) Nausea with vomiting 08/17/2015 Pain in limb [...] Mother Idania Swartz Rheum arthritis Father Amandeep Moeller Depression Father Amandeep Moeller Alcohol abuse Father Amandeep Moeller Stroke Father Amandeep Moeller Asthma Other SURGICAL HISTORY Past Surgical History: [...] nursing note reviewed. Exam conducted with a chainman present. Vitals: Estimated body mass index is 28.48 kg/m as calculated from the following: Height as of 02/13/24: 5' 3 . Weight as of this encounter: 160 lb 12.8 oz. BP: 110/74 Patient's last menstrual period was 09/01/2023. ASSESSMENT & PLAN ICD-10-CM 1. Third trimester Z34.93 2. 31 weeks gestation of Z3A.31 3. Multigravida of advanced maternal age in third trimester O09.523 US biophysical profile w non stress test Return OB: Patient presents today for a routine obstetrics appointment. Patient is currently 31w3d . Patient states she is doing well but has complaints of being tired due to current . Patient has verbalizes frequent movement. labor precautions was discussed/given and patient was instructed to perform kick counts three times a day. Pt given NST/BPP order to have scheduled at 32 weeks. Orders Placed This Encounter Procedures US biophysical profile w non stress test POCT urinalysis dipstick manually resulted Follow Up: Patient is to return to office in 2 week for routine OB appointment. Documented by Shelli Lundberg LPN on behalf of: Veda Machado PA-C documented in this encounter [facility] 04-02-2024 History of Present illness Narrative Images from the original note were not included. Patient reports not starting the Zoloft after last visit. Tiki Moeller is a 38 y.o. female presents for Medication Management. HPI: Patient is here for medication follow up. Patient is currently 32weeks decided not to take zoloft. Got fired from [employer] due to falling asleep. She was feeling lightheaded at work. Found out has low iron. Mood is reported as not depressed. Anxiety on a few occasiong. Sleepomg 10 hours. Started back to school. Medication compliant. No reported side effects. Denies abuse of substances. Medical problems since last visit. Difficulty more physically with other pregnancies. Psychosocial stressors include worrying about the father of the baby trying to contact her. Back together with her Ex. SUBJECTIVE: PAST MEDICAL HISTORY: Past Medical History: Diagnosis Date Adenoma of left breast removed 2013 ADHD (attention deficit hyperactivity disorder) ([facility]) Anemia Anxiety Asthma (CMS/HCC) Back pain Common [...] Unknown Nsaids Other Reaction(s): Unknown Zoloft [Sertraline] SURGICAL HISTORY: Past Surgical History: Procedure Laterality [...] Mother Idania Swartz Rheum arthritis Father Amandeep Moeller Depression Father Amandeep Moeller Alcohol abuse Father Amandeep Moeller Stroke Father Amandeep Moeller Asthma Other SOCIAL HISTORY: Social History Tobacco [...] dinner Drug use: Not Currently Types: Benzodiazepines Depression: Not at risk (01/01/2024) PHQ-2 PHQ-2 Score: 0 REVIEW OF SYMPTOMS - MENTAL STATUS EXAM Appearance Appearance: Normal grooming and hygiene. Appears stated age. Dressed appropriately for weather. Behavior Calm, cooperative, pleasant. Good posture.. No abnormal movements. Speech Normal, clear, regular rate, rhythm and volume Affect Full range. Stable. Appropriate and congruent with mood. Mood Anxious mild Thought Process Organized, logical, and goal directed Thought Content Denies suicidal and homicidal ideation and No Homicidal ideation Perception Denies auditory and visual hallucinations. No evidence of delusions. Orientation Appropriate to age, Person, Place, and Time Memory/Concentration Immediate, recent and remote memory intact Insight/Judgement Good OBJECTIVE: Visit Vitals LMP 09/01/2023 OB Status Smoking Status Never No results found for: TSH Lab Results Component Value Date GLU 78 03/07/2024 CALCIUM 8.8 03/07/2024 NA 140 03/07/2024 K 3.4 (L) 03/07/2024 CO2 26.2 03/07/2024 CL 105 12/22/2022 BUN 6.0 (L) 03/07/2024 CREATININE 0.46 (L) 03/07/2024 Lab Results Component Value Date WBC 6.5 07/12/2021 Lab Results Component Value Date CHOL 265 (H) 12/22/2022 Lab Results Component Value Date HDL 76 12/22/2022 Lab Results Component Value Date LDLCALC 153 (H) 12/22/2022 Lab Results Component Value Date TRIG 214 (H) 12/22/2022 ASSESSMENT AND PLAN: Assessment/Plan Psych Medication List Attention deficit hyperactivity disorder (ADHD), combined type (CMS/HCC) Episodic mood disorder (CMS/HCC) Generalized anxiety disorder (CMS/HCC) Psych Medication List Not taking Zoloft 50mg po every day Supportive counseling June 02 is date induced Will be nursing her . Patient was seen Face to Face, Reviewed chart documents and documentation, Visit time : 30min F/U after baby born /to check for post documented in this encounter [facility] 03-25-2024 History of Present illness Narrative Reason for Appointment: Patient ID: Tiki Moeller is a 38 y.o. female who presents [...] Attention deficit hyperactivity disorder (ADHD), combined type ([facility] 07/04/2022 Episodic mood disorder ([facility] 07/04/2022 Generalized anxiety disorder ([facility]) 07/04/2022 Panic disorder ([facility]) 07/04/2022 Acquired scoliosis 09/09/2016 Allergic rhinitis 10/16/2019 Anxiety 01/31/2020 Asthma ([facility]) 12/31/2014 Chronic fatigue syndrome 07/03/2016 Chronic gastritis without bleeding 12/28/2022 Irritable bowel syndrome 07/03/2016 Migraine without aura and without status migrainosus, not intractable ([facility]) 09/19/2017 Mild intermittent asthma ([facility]) 02/28/2021 Primary localized osteoarthrosis of ankle and foot 03/13/2019 Vitamin D deficiency 12/28/2022 Headache 06/28/2023 Inadequate sleep hygiene 06/28/2023 Migraine ([facility]) 06/28/2023 Tenosynovitis of foot 06/28/2023 Nausea and vomiting 06/28/2023 Common migraine with intractable migraine ([facility]) 06/28/2023 Pain in limb 06/28/2023 Chronic tension-type headache, not intractable 06/28/2023 Sleep disturbance 06/28/2023 Insomnia, unspecified 06/28/2023 Other problems related to lifestyle 06/28/2023 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 08/10/2023 Resolved Ambulatory Problems Diagnosis Date Noted No Resolved Ambulatory Problems Past Medical History: Diagnosis Date Adenoma of left breast ADHD (attention deficit hyperactivity disorder) ([facility] Anemia Back pain Common migraine ([facility]) 08/17/2015 Depression ([facility]) H/O colonoscopy H/O umbilical hernia repair Insomnia 06/25/2017 Migraines ([facility]) Nausea with vomiting 08/17/2015 Tendonitis of right hand Tension headache 08/17/2015 HISTORY PAST MEDICAL HISTORY SOCIAL HISTORY Past Medical History: Diagnosis Date Adenoma of left breast removed 2013 ADHD (attention deficit hyperactivity disorder) ([facility]) Anemia Anxiety Asthma ([facility]) Back pain Common migraine ([facility]) 08/17/2015 Depression ([facility]) H/O colonoscopy 2012 H/O umbilical hernia repair 2008 Headache 08/17/2015 Inadequate sleep hygiene 04/23/2018 Insomnia 06/25/2017 Migraine ([facility]) 03/22/2017 Migraines ([facility]) Nausea with vomiting 08/17/2015 Pain in limb [...] Mother Idania Swartz Rheum arthritis Father Amandeep Moeller Depression Father Amandeep Moeller Alcohol abuse Father Amandeep Moeller Stroke Father Amandeep Moeller Asthma Other SURGICAL HISTORY Past Surgical History: [...] nursing note reviewed. Exam conducted with a chainman present. Vitals: Estimated body mass index is 27.63 kg/m as calculated from the following: Height as of 02/12/24: 5' 3 . Weight as of this encounter: 156 lb. BP: 100/68 Patient's last menstrual period was 09/01/2023. ASSESSMENT & PLAN ICD-10-CM 1. Third trimester Z34.93 POCT urinalysis dipstick manually resulted 2. 29 weeks gestation of Z3A.29 Return OB: Patient presents today for a routine obstetrics appointment. Patient is currently 29w3d . Patient states she is doing well [...] Raghavendra Vasquez DO documented in this encounter [facility] 03-11-2024 History of Present illness Narrative Reason for Appointment: Patient ID: Tiki Moeller is a 38 y.o. female who presents [...] Attention deficit hyperactivity disorder (ADHD), combined type ([facility]) 07/04/2022 Episodic mood disorder ([facility]) 07/04/2022 Generalized anxiety disorder ([facility]) 07/04/2022 Panic disorder ([facility]) 07/04/2022 Acquired scoliosis 09/09/2016 Allergic rhinitis 10/16/2019 Anxiety 01/31/2020 Asthma ([facility]) 12/31/2014 Chronic fatigue syndrome 07/03/2016 Chronic gastritis without bleeding 12/28/2022 Irritable bowel syndrome 07/03/2016 Migraine without aura and without status migrainosus, not intractable ([facility]) 09/19/2017 Mild intermittent asthma ([facility]) 02/28/2021 Primary localized osteoarthrosis of ankle and foot 03/13/2019 Vitamin D deficiency 12/28/2022 Headache 06/28/2023 Inadequate sleep hygiene 06/28/2023 Migraine ([facility]) 06/28/2023 Tenosynovitis of foot 06/28/2023 Nausea and vomiting 06/28/2023 Common migraine with intractable migraine ([facility]) 06/28/2023 Pain in limb 06/28/2023 Chronic tension-type headache, not intractable 06/28/2023 Sleep disturbance 06/28/2023 Insomnia, unspecified 06/28/2023 Other problems related to lifestyle 06/28/2023 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 08/10/2023 Resolved Ambulatory Problems Diagnosis Date Noted No Resolved Ambulatory Problems Past Medical History: Diagnosis Date Adenoma of left breast ADHD (attention deficit hyperactivity disorder) ([facility]) Anemia Back pain Common migraine ([facility]) 08/17/2015 Depression ([facility]) H/O colonoscopy H/O umbilical hernia repair Insomnia 06/25/2017 Migraines ([facility]) Nausea with vomiting 08/17/2015 Tendonitis of right hand Tension headache 08/17/2015 HISTORY PAST MEDICAL HISTORY SOCIAL HISTORY Past Medical History: Diagnosis Date Adenoma of left breast removed 2013 ADHD (attention deficit hyperactivity disorder) ([facility]) Anemia Anxiety Asthma ([facility]) Back pain Common migraine ([facility]) 08/17/2015 Depression ([facility]) H/O colonoscopy 2012 H/O umbilical hernia repair 2008 Headache 08/17/2015 Inadequate sleep hygiene 04/23/2018 Insomnia 06/25/2017 Migraine ([facility]) 03/22/2017 Migraines ([facility]) Nausea with vomiting 08/17/2015 Pain in limb [...] Mother Idania Swartz Rheum arthritis Father Amandeep Moeller Depression Father Amandeep Moeller Alcohol abuse Father Amandeep Moeller Stroke Father Amandeep Moeller Asthma Other SURGICAL HISTORY Past Surgical History: [...] nursing note reviewed. Exam conducted with a chainman present. Vitals: Estimated body mass index is 27.95 kg/m as calculated from the following: Height as of 24: 5' 3 . Weight as of this [...] Raghavendra Vasquez DO documented in this encounter [facility] 02-11-2024 History of Present illness Narrative Reason for Appointment: Patient ID: Tiki Moeller is a 38 y.o. female who presents [...] Attention deficit hyperactivity disorder (ADHD), combined type ([facility]) 07/04/2022 Episodic mood disorder ([facility]) 07/04/2022 Generalized anxiety disorder ([facility]) 07/04/2022 Panic disorder ([facility]) 07/04/2022 Acquired scoliosis 09/09/2016 Allergic rhinitis 10/16/2019 Anxiety 01/31/2020 Asthma ([facility]) 12/31/2014 Chronic fatigue syndrome 07/03/2016 Chronic gastritis without bleeding 12/28/2022 Irritable bowel syndrome 07/03/2016 Migraine without aura and without status migrainosus, not intractable ([facility]) 09/19/2017 Mild intermittent asthma ([facility]) 02/28/2021 Primary localized osteoarthrosis of ankle and foot 03/13/2019 Vitamin D deficiency 12/28/2022 Headache 06/28/2023 Inadequate sleep hygiene 06/28/2023 Migraine ([facility]) 06/28/2023 Tenosynovitis of foot 06/28/2023 Nausea and vomiting 06/28/2023 Common migraine with intractable migraine ([facility]) 06/28/2023 Pain in limb 06/28/2023 Chronic tension-type headache, not intractable 06/28/2023 Sleep disturbance 06/28/2023 Insomnia, unspecified 06/28/2023 Other problems related to lifestyle 06/28/2023 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 08/10/2023 Resolved Ambulatory Problems Diagnosis Date Noted No Resolved Ambulatory Problems Past Medical History: Diagnosis Date Adenoma of left breast ADHD (attention deficit hyperactivity disorder) ([facility]) Anemia Back pain Common migraine ([facility]) 08/17/2015 Depression ([facility]) H/O colonoscopy H/O umbilical hernia repair Insomnia 06/25/2017 Migraines ([facility]) Nausea with vomiting 08/17/2015 Tendonitis of right hand Tension headache 08/17/2015 HISTORY PAST MEDICAL HISTORY SOCIAL HISTORY Past Medical History: Diagnosis Date Adenoma of left breast removed 2013 ADHD (attention deficit hyperactivity disorder) ([facility]) Anemia Anxiety Asthma ([facility]) Back pain Common migraine ([facility]) 08/17/2015 Depression ([facility]) H/O colonoscopy 2012 H/O umbilical hernia repair 2008 Headache 08/17/2015 Inadequate sleep hygiene 04/23/2018 Insomnia 06/25/2017 Migraine ([facility]) 03/22/2017 Migraines ([facility]) Nausea with vomiting 08/17/2015 Pain in limb [...] Migraines Mother Idania Swartz Rheum arthritis Father Warrenelva Moeller Depression Father Amandeepelva Moeller Alcohol abuse Father Amandeepelva Moeller Stroke Father Amandeep Moeller Asthma Other SURGICAL HISTORY Past Surgical History: [...] nursing note reviewed. Exam conducted with a chainman present. Vitals: Estimated body mass index is [...] Raghavendra Vasquez DO documented in this encounter [facility] 01-10-2024 History of Present illness Narrative Reason for Appointment: Patient ID: Tiki Moeller is a 38 y.o. female who presents [...] Attention deficit hyperactivity disorder (ADHD), combined type ([facility]) 07/04/2022 Episodic mood disorder ([facility]) 07/04/2022 Generalized anxiety disorder ([facility]) 07/04/2022 Panic disorder ([facility]) 07/04/2022 Acquired scoliosis 09/09/2016 Allergic rhinitis 10/16/2019 Anxiety 01/31/2020 Asthma ([facility]) 12/31/2014 Chronic fatigue syndrome 07/03/2016 Chronic gastritis without bleeding 12/28/2022 Irritable bowel syndrome 07/03/2016 Migraine without aura and without status migrainosus, not intractable ([facility]) 09/19/2017 Mild intermittent asthma ([facility]) 02/28/2021 Primary localized osteoarthrosis of ankle and foot 03/13/2019 Vitamin D deficiency 12/28/2022 Headache 06/28/2023 Inadequate sleep hygiene 06/28/2023 Migraine ([facility]) 06/28/2023 Tenosynovitis of foot 06/28/2023 Nausea and vomiting 06/28/2023 Common migraine with intractable migraine ([facility]) 06/28/2023 Pain in limb 06/28/2023 Chronic tension-type headache, not intractable 06/28/2023 Sleep disturbance 06/28/2023 Insomnia, unspecified 06/28/2023 Other problems related to lifestyle 06/28/2023 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 08/10/2023 Resolved Ambulatory Problems Diagnosis Date Noted No Resolved Ambulatory Problems Past Medical History: Diagnosis Date Adenoma of left breast ADHD (attention deficit hyperactivity disorder) ([facility]) Anemia Back pain Common migraine ([facility]) 08/17/2015 Depression ([facility]) H/O colonoscopy H/O umbilical hernia repair Insomnia 06/25/2017 Migraines ([facility]) Nausea with vomiting 08/17/2015 Tendonitis of right hand Tension headache 08/17/2015 HISTORY PAST MEDICAL HISTORY SOCIAL HISTORY Past Medical History: Diagnosis Date Adenoma of left breast removed 2013 ADHD (attention deficit hyperactivity disorder) ([facility]) Anemia Anxiety Asthma ([facility]) Back pain Common migraine ([facility]) 08/17/2015 Depression ([facility]) H/O colonoscopy 2012 H/O umbilical hernia repair 2008 Headache 08/17/2015 Inadequate sleep hygiene 04/23/2018 Insomnia 06/25/2017 Migraine (CMS/HCC) 03/22/2017 Migraines ([facility]) Nausea with vomiting 08/17/2015 Pain in limb [...] Mother Idania Swartz Rheum arthritis Father Amandeep Moeller Depression Father Amandeep Moeller Alcohol abuse Father Amandeep Moeller Stroke Father Amandeepelva Moeller Asthma Other SURGICAL HISTORY Past Surgical History: [...] nursing note reviewed. Exam conducted with a chainman present. Vitals: Estimated body mass index is [...] Raghavendra Vasquez DO documented in this encounter [facility] 01-01-2024 History of Present illness Narrative Images from the original note were not included. Tiki Moeller is a 38 y.o. female presents for Medication Management. HPI: Patient is here for medication follow up. Patient has improved since last appt. Mood is reported as not depressed. Anxiety is under control. Sleeping Medication compliant. No reported side effects. Taking zoloft. Denies abuse of substances. Medical problems since last visit. 20 weeks. 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 Psychosocial stressors include . SUBJECTIVE: PAST MEDICAL HISTORY: Past Medical History: Diagnosis Date Adenoma of left breast removed 2013 ADHD (attention deficit hyperactivity disorder) ([facility]) Anemia Anxiety Asthma ([facility]) Back pain Common migraine ([facility]) 08/17/2015 Depression ([facility]) H/O colonoscopy 2012 H/O umbilical hernia repair 2007 Headache 08/17/2015 Inadequate sleep hygiene 04/23/2018 Insomnia 06/25/2017 Migraine (CMS/HCC) 03/22/2017 Migraines ([facility]) Nausea with vomiting 08/17/2015 Pain in limb [...] and Time Memory/Concentration Short term intact and prison intact Insight/Judgement Fair OBJECTIVE: Visit Vitals LMP [...] Visit time :32min documented in this encounter [facility] 11-28-2023 History of Present illness Narrative Reason for Appointment: Patient ID: Tiki Moeller is a 38 y.o. female who presents [...] Generalized anxiety disorder (CMS/HCC) 07/04/2022 Panic disorder ([facility]) 07/04/2022 Acquired scoliosis 09/09/2016 Allergic rhinitis 10/16/2019 Anxiety 01/31/2020 Asthma ([facility]) 12/31/2014 Chronic fatigue syndrome 07/03/2016 Chronic gastritis without bleeding 12/28/2022 Irritable bowel syndrome 07/03/2016 Migraine without aura and without status migrainosus, not intractable ([facility]) 09/19/2017 Mild intermittent asthma ([facility]) 02/28/2021 Primary localized osteoarthrosis of ankle and foot 03/13/2019 Vitamin D deficiency 12/28/2022 Headache 06/28/2023 Inadequate sleep hygiene 06/28/2023 Migraine ([facility]) 06/28/2023 Tenosynovitis of foot 06/28/2023 Nausea and vomiting 06/28/2023 Common migraine with intractable migraine ([facility]) 06/28/2023 Pain in limb 06/28/2023 Chronic tension-type headache, not intractable 06/28/2023 Sleep disturbance 06/28/2023 Insomnia, unspecified 06/28/2023 Other problems related to lifestyle 06/28/2023 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 08/10/2023 Resolved Ambulatory Problems Diagnosis Date Noted No Resolved Ambulatory Problems Past Medical History: Diagnosis Date Adenoma of left breast ADHD (attention deficit hyperactivity disorder) ([facility]) Anemia Back pain Common migraine ([facility]) 08/17/2015 Depression ([facility]) H/O colonoscopy H/O umbilical hernia repair Insomnia 06/25/2017 Migraines ([facility]) Nausea with vomiting 08/17/2015 Tendonitis of right hand Tension headache 08/17/2015 HISTORY PAST MEDICAL HISTORY SOCIAL HISTORY Past Medical History: Diagnosis Date Adenoma of left breast removed 2013 ADHD (attention deficit hyperactivity disorder) ([facility] Anemia Anxiety Asthma ([facility]) Back pain Common migraine ([facility]) 08/17/2015 Depression ([facility]) H/O colonoscopy 2012 H/O umbilical hernia repair 2008 Headache 08/17/2015 Inadequate sleep hygiene 04/23/2018 Insomnia 06/25/2017 Migraine ([facility]) 03/22/2017 Migraines ([facility]) Nausea with vomiting 08/17/2015 Pain in limb [...] nursing note reviewed. Exam conducted with a chainman present. Vitals: Estimated body mass index is [...] or undercooked meat, and stay away from [facility]. Patient has been consulted regarding any [...] Raghavendra Vasquez DO documented in this encounter [facility] 11-27-2023 History of Present illness Narrative Images from the original note were not included. Tiki Moeller is a 38 y.o. female presents for [...] work done. 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 Psychosocial stressors include . SUBJECTIVE: PAST MEDICAL HISTORY: Past Medical History: Diagnosis Date Adenoma of left breast removed 2013 ADHD (attention deficit hyperactivity disorder) ([facility]) Anemia Anxiety Asthma ([facility]) Back pain Common migraine ([facility]) 08/17/2015 Depression ([facility]) H/O colonoscopy 2012 H/O umbilical hernia repair 2007 Headache 08/17/2015 Inadequate sleep hygiene 04/23/2018 Insomnia 06/25/2017 Migraine ([facility]) 03/22/2017 Migraines ([facility]) Nausea with vomiting 08/17/2015 Pain in limb [...] and Time Memory/Concentration 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 female who presents [...] the following prescription(s): albuterol hfa, albuterol hfa, utjapcdcca-hdlzgnfuwfpgq-ikxoqkha , cyanocobalamin, d3-1000, dicyclomine, fluticasone, onabotulinumtoxina, ondansetron, promethazine, sertraline, and tizanidine. Medical History: Active Ambulatory Problems Diagnosis Date Noted Attention deficit hyperactivity disorder (ADHD), combined type ([facility]) 07/04/2022 Episodic mood disorder ([facility]) 07/04/2022 Generalized anxiety disorder ([facility] 07/04/2022 Panic disorder ([facility]) 07/04/2022 Acquired scoliosis 09/09/2016 Allergic rhinitis 10/16/2019 Anxiety 01/31/2020 Asthma ([facility]) 12/31/2014 Chronic fatigue syndrome 07/03/2016 Chronic gastritis without bleeding 12/28/2022 Irritable bowel syndrome 07/03/2016 Migraine without aura and without status migrainosus, not intractable ([facility]) 09/19/2017 Mild intermittent asthma ([facility]) 02/28/2021 Primary localized osteoarthrosis of ankle and foot 03/13/2019 Vitamin D deficiency 12/28/2022 Headache 06/28/2023 Inadequate sleep hygiene 06/28/2023 Migraine ([facility]) 06/28/2023 Tenosynovitis of foot 06/28/2023 Nausea and vomiting 06/28/2023 Common migraine with intractable migraine ([facility]) 06/28/2023 Pain in limb 06/28/2023 Chronic tension-type headache, not intractable 06/28/2023 Sleep disturbance 06/28/2023 Insomnia, unspecified 06/28/2023 Other problems related to lifestyle 06/28/2023 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 08/10/2023 Resolved Ambulatory Problems Diagnosis Date Noted No Resolved Ambulatory Problems Past Medical History: Diagnosis Date Adenoma of left breast ADHD (attention deficit hyperactivity disorder) ([facility] Anemia Back pain Common migraine ([facility]) 08/17/2015 Depression ([facility] H/O colonoscopy H/O umbilical hernia repair Insomnia 06/25/2017 Migraines ([facility]) Nausea with vomiting 08/17/2015 Tendonitis of right [...] pt to schedule US w/tbh. Pt desired [place] 21 advised pt to wait until 10 [...] An Duffy MA documented in this encounter [facility] 10-19-2023 Telephone encounter Note Pt needs a letter stating that she was seen in office on 10/17 Please Fax to [phone] [facility] 10-19-2023 Miscellaneous Notes Pt needs a letter stating that she was seen in office on 10/17 Please Fax to [phone] documented in this encounter [facility] 10-18-2023 History of Present illness Narrative Tiki Moeller is a 38 y.o. female presents with [...] 2 puffs, Inhalation, Every 4 hours PRN rhrqofpztf-kxsbtexdlgiyk-rpnpilsy 50-325-40 MG tablet TAKE 1 TABLET BY [...] for further guidance. documented in this encounter [facility] 10-18-2023 History of Present illness Narrative Images from the original note were not included. Subjective Tiki Cheri Moeller is a 38 y.o. female. Patient was to be seen for botox injections but she just found out that she is . She was not planning but not preventing . She still has to see her behavioral services tech. She has been receiving the Botox injections [...] during those pregnancies. 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 Objective Neurological Exam Physical Exam No chief complaint on file. Mendoza Moeller, 38 y.o., female HPI Past Medical History: Diagnosis Date Adenoma of left breast removed 2013 ADHD (attention deficit hyperactivity disorder) (CMS/FORMERLY [facility]) Anemia Anxiety Asthma (CMS/HCC) Back pain Common [...] Return to clinic: documented in this encounter [facility] 08-03-2021 Note FINDINGS: Sonographic evaluation targeted to the painful palpable areas within the right breast. Multiple subcentimeter benign simple cysts within the right upper quadrant. Mild periareolar ductal dilatation (3-4 mm diameter). No suspicious solid nodule or mass. IMPRESSION: BI RADS 2 : BENIGN FINDINGS Report reported and signed by Alexei Smith on 08/03/2021 [id number] [facility] Furniture Finisher Helper 05-11-2021 Evaluation note Encounter Date Diagnosis Assessment Notes Apr, Encounter for immunization (ICD-10 - Z23) Patient presents for COVID-19 vaccination #2. Pre-screening form answers evaluated with patient. Patient denies current illness or allergic reaction to component of COVID-19 vaccine. Patient provided with current copy of EUA. [employer] Other Evaluation note* Diagnosis Attention deficit hyperactivity disorder (ADHD), combined type (CMS/HCC) Generalized anxiety disorder (CMS/HCC) Generalized anxiety disorder documented in this encounter [facility]* Diagnosis First trimester state, incidental documented in this encounter [facility]* Diagnosis Intractable chronic migraine [...] in this encounter [facility]* Diagnosis Third trimester state, incidental 29 weeks gestation of documented in this encounter [facility]* Diagnosis Generalized anxiety disorder (CMS/HCC) Generalized anxiety disorder Attention deficit hyperactivity disorder (ADHD), combined type (CMS/HCC) Episodic mood disorder (CMS/HCC) Unspecified episodic mood disorder documented in this [facility]* Diagnosis Third trimester state, incidental 31 weeks gestation of Multigravida of advanced maternal age in third trimester documented in this encounter [facility] Narrative - Reported* Type Description Date Medical History DEPRESSIVE DISORDER Medical History ASTHMA Medical History ANXIETY Medical History MIGRAINES Medical History BIPOLAR Medical History BACK PAIN Medical History ANEMIA Surgical History umbilical herniorrhaphy 2007 Surgical History colposcopy 2012 Surgical History adenoma removed from left breas t Surgical History tibial and fibular sesmoid 10-15 [facility] Other Summary Purpose Family History No Family History Records FoundNo Family History Records FoundNo Family History Records FoundNo Family History Records FoundNo Family History Records Found Advance Directives No Advanced Directives Records FoundNo Advanced Directives Records FoundNo Advanced Directives Records FoundNo Advanced Directives Records FoundNo Advanced Directives Records Found Additional Source Comments INFORMATION SOURCE (unrecogn ized section and content) DATE CREATED AUTHOR 05/25/2021 [facility] DATE CREATED AUTHOR AUTHOR'S ORGANIZ ATION 08/04/2021 [facility] dical Specialist DATE CREATED AUTHOR AUTHOR'S ORGANIZ ATION 11/23/2021 [facility] DATE CREATED AUTHOR AUTHOR'S ORGANIZ ATION 12/19/2022 [facility] DATE CREATED AUTHOR AUTHOR'S ORGANIZ ATION 04/10/2024 [facility] Specialists EPIC REASON FOR VISIT (unrecogniz ed section and content) Reason Comments Routine Visit Reason Comments Med Management Follow-up Reason Comments Well Women Visit Routine Visit STI Screening Reason Comments Nausea/Vomiting In Reason Comments Amenorrhea Reason Comments Migraine Care Teams (unrecognized sec tion and content) Professor Of Public Administration Relationship Specialty Start Date End Date Ysabel Cabral MD [address] [facility] [place] [address] PCP - General Family Medicine 07/29/22 Ale Zaldivar MD [address] [facility] [place] [address] PCP - [facility] 05/28/23 Professor Of Public Administration Relationship Specialty Start Date End Date Ysabel Cabral MD [address] [facility] [place] [address] PCP - General Family Medicine 07/29/22 Ale Zaldivar MD [address] [facility] [place] [address] PCP - [facility] 05/28/23 Professor Of Public Administration Relationship Specialty Start Date End Date Ysabel Cabral MD [address] [place] [address] PCP - General Family Medicine 07/29/22 Ale Zaldivar MD [address] [place] [address] PCP - [facility] 05/28/23 Professor Of Public Administration Relationship Specialty Start Date End Date Ysabel Cabral MD [address] [facility] [place] [address] PCP - General Family Medicine 07/29/22 Ale Zaldivar MD [address] [place] [address] PCP - [facility] 05/28/23 Professor Of Public Administration Relationship Specialty Start Date End Date Ysabel Cabral MD [address] [address] PCP - General Family [facility] 07/29/22 Ale Zaldivar MD [address] [address] PCP - [facility] 05/28/23 Professor Of Public Administration Relationship Specialty Start Date End Date Ysabel Cabral MD [address] [facility] [place] [address] PCP - General Family Medicine 07/29/22 Ale Zaldivar MD [address] [facility] [place] [address] PCP - [facility] 05/28/23 Professor Of Public Administration Relationship Specialty Start Date End Date Ysabel Cabral MD [address] [facility] [place] [address] PCP - General Family Medicine 07/29/22 Chloe Carvajal NP [address] [place] [address] PCP - [facility] 11/27/23 Professor Of Public Administration Relationship Specialty Start Date End Date Ysabel Cabral MD [address] [facility] [place] [address] PCP - General Family Medicine 07/29/22 Chloe Carvajal NP [address] [facility] [place] [address] PCP - [facility] 11/27/23 Professor Of Public Administration Relationship Specialty Start Date End Date Ysabel Cabral MD [address] [facility] [place] [address] PCP - General Family Medicine 07/29/22 Chloe Carvajal NP [address] [facility] [place] [address] PCP - [facility] 11/27/23 Professor Of Public Administration Relationship Specialty Start Date End Date Ysabel Cabral MD [address] [facility] [place] [address] PCP - General Family Medicine 07/29/22 Chloe Carvajal, NATAN PCP - [facility] 11/27/23 Professor Of Public Administration Relationship Specialty Start Date End Date Ysabel Cabral MD [address] [facility] [place] [address] PCP - General Family Medicine 07/29/22 Chloe Carvajal ACADEMIC SERVICES PROFESSIONAL PCP - [facility] 11/27/23 Professor Of Public Administration Relationship Specialty Start Date End Date Ysabel Cabral MD [address] [facility] [place] [address] PCP - General Family Medicine 07/29/22 Ale Zaldivar MD [address] [facility] [place] [address] PCP - [facility] 05/28/23 Professor Of Public Administration Relationship Specialty Start Date End Date Ysabel Cabral MD [address] [facility] [place] [address] PCP - General Family [facility] 07/29/22 Ale Zaldivar MD [address] [facility] [place] [address] PCP - [facility] 05/28/23 Professor Of Public Administration Relationship Specialty Start Date End Date Ysabel Cabral MD [address] [facility] [place] [address] PCP - General Family [facility] 07/29/22 Ale Zaldivar MD [address] [place] [address] PCP - [facility] 05/28/23 Professor Of Public Administration Relationship Specialty Start Date End Date Ysabel Cabral MD [address] [facility] [place] [address] PCP - General Family Medicine 07/29/22 Chloe Carvajal ACADEMIC SERVICES PROFESSIONAL PCP - [facility] 11/27/23 Professor Of Public Administration Relationship Specialty Start Date End Date Ysabel Cabral MD [address] [place] [address] PCP - [facility] Family [facility] 07/29/22 Ale Zaldivar MD [address] [place] [address] PCP - [facility] 05/28/23 Professor Of Public Administration Relationship Specialty Start Date End Date Ysabel Cabral MD [address] [place] [address] PCP - [facility] 07/29/22 Ale Zaldivar MD [address] [place] [address] PCP - [facility] 05/28/23 Professor Of Public Administration Relationship Specialty Start Date End Date Ysabel Cabral MD [address] [place] [address] PCP - General Family [facility] 07/29/22 Chloe Carvajal, ACADEMIC SERVICES PROFESSIONAL PCP - [facility] 11/27/23 Professor Of Public Administration Relationship Specialty Start Date End Date Ysabel Cabral MD [address] [place] [address] PCP - General Family Medicine 07/29/22 Chloe Carvajal, ACADEMIC SERVICES PROFESSIONAL PCP [facility] 11/27/23 Professor Of Public Administration Relationship Specialty Start Date End Date Ysabel Cabral MD [address] [place] [address] PCP - [facility] 07/29/22 Chloe Carvajal, ACADEMIC SERVICES PROFESSIONAL PCP - [facility] 11/27/23 Professor Of Public Administration Relationship Specialty Start Date End Date Ysabel Cabral MD [address] [place] [address] PCP - [facility] 07/29/22 Chloe Carvajal ACADEMIC SERVICES PROFESSIONAL PCP - [facility] 11/27/23 Professor Of Public Administration Relationship Specialty Start Date End Date Ysabel Cabral MD [address] [place] [address] PCP - [facility] 07/29/22 Chloe Carvajal ACADEMIC SERVICES PROFESSIONAL [facility] - [facility] 11/27/23 Teresa Ornelas FACTORY LABORER-PIPE BENDING MACHINE OPERATOR [address] [address] Nurse Practitioner Psychiatry 03/14/24 Professor Of Public Administration Relationship Specialty Start Date End Date Ysabel Cabral MD [address] [place] [address] PCP - [facility] 07/29/22 Chloe Carvajal ACADEMIC SERVICES PROFESSIONAL PCP [facility] 11/27/23 Teresa Ornelas, FACTORY LABORER-PIPE BENDING MACHINE OPERATOR [address] [facility] [address] [place] [address] Nurse Practitioner Psychiatry 03/14/24 Professor Of Public Administration Relationship Specialty Start Date End Date Ysabel Cabral MD [address] [facility] [place] [address] PCP - General [facility] Medicine 07/29/22 Chloe Carvajal ACADEMIC SERVICES PROFESSIONAL PCP - [facility] 11/27/23 Teresa Ornelas, FACTORY LABORER-PIPE BENDING MACHINE OPERATOR [address] [facility] [address] [place] [address] Nurse Practitioner Psychiatry 03/14/24 Professor Of Public Administration Relationship Specialty Start Date End Date Ysabel Cabral MD [address] [facility] [place] [address] PCP - [facility] 07/29/22 Ysabel Cabral MD [address] [facility] [place] [address] PCP - [facility] 02/27/24 Teresa Ornelas, FACTORY LABORER-PIPE BENDING MACHINE OPERATOR [address] [place] [address] Nurse Practitioner Psychiatry 03/14/24 Professor Of Public Administration Relationship Specialty Start Date End Date Ysabel Cabral MD [address] [facility] [address] PCP - [facility] 07/29/22 Ysabel Cabral MD [address] [facility] [place] [address] PCP - [facility] 02/27/24 Teresa Ornelas, FACTORY LABORER-PIPE BENDING MACHINE OPERATOR [address] [facility] [address] [place] [address] Nurse Practitioner Psychiatry 03/14/24 Professor Of Public Administration Relationship Specialty Start Date End Date Ysabel Cabral MD [address] [facility] [place] [address] PCP - General Family Medicine 07/29/22 Ysabel Cabral MD [address] [facility] [place] [address] PCP - [facility] 02/27/24 Teresa Ornelas APRN-PIPE BENDING MACHINE OPERATOR [address] [place] [address] Nurse Practitioner Psychiatry 03/14/24 FOR RECORDS PERTAINING TO PATIENTS WHO ARE [...] BE BASED ON THE PRIMARY CLINICAL RECORDS. [facility]. provides no warranty or guarantee of the accuracy or completeness of information in this document.
[2024-04-18 12:11] VITALS: BP 123/65; PULSE 115
== END 2024-04-18 12:40 | disposition home or self-care (01) ==
LOC: FBCO 00:11 → FBC 12:02
PROVIDERS: PCP Family Medicine; Visit Provider Obstetrics & Gynecology
DX: O09.523 Supervision of elderly multigravida, third trimester (principal)
CPT/HCPCS: 59025

== ENCOUNTER 2024-04-22 01:08 | Outpatient (OUT) | payer OTHER, SELFPAY ==
--- NOTE | 2024-04-22 | US_ITS ---
[place] [id number] Patient Name: JESSICA MOELLER MRN: [id number] date: 1985 Sex: F Assigned Patient Location: [facility] Current Patient Location: Accession/Order Number: [id number] Exam Date: 04/22/2024 23:02 Report Date: 04/22/2024 23:05 At the request of: MARGO SARMIENTO Procedure: US OB BPP w non-stress Biophysical profile. Reason for exam: Advanced maternal age. COMPARISON: BPP 04/15/2024. TECHNIQUE: Transabdominal imaging of the gravid uterus was obtained. FINDINGS: Legal Arbitrator reports the biophysical profile is 8 out of 8. JT is normal at 13.9 cm. heart rate 156 bpm. US/US OB BPP w non-stress IMPRESSION: BPP 8 out of 8. Impression dictated by: Alexei Ibrahim Jr., DTiOTi04/22/2024 11:05 PM Dictation Location: [employer] Electronically authenticated by: [id number] Y Date: 04/22/2024 23:05
--- OUTSIDE RECORDS SUMMARY | 2024-04-22 01:12 | XMS_ITS | CCD ---
Author Organization [facility] Care Team Providers Care Mail Handler Assistant Name Role Phone Vicky Joe Unavailable WEST, DR SANON Admitting Unavailable KARASIK, DR SANON Attending Unavailable KARASIK, DR SANON Consulting Unavailable KARASIK, DR SANON Attending Unavailable KARASIK, DR SANON Consulting Unavailable KARASIK, DR SANON Admitting Unavailable CHLOE CARVAJAL Attending Unavailable CHLOE CARVAJAL Consulting Unavailable CHLOE CARVAJAL Admitting Unavailable Ysabel Cabral MD Primary Care Provider [phone] Ale Zaldivar MD Unavailable [phone] Dillon SCHEDULER MAINTENANCE, Chloe Swift Unavailable Dillon SCHEDULER MAINTENANCE, Chloe R Unavailable Jo Ann-Nossejasen BOILER ROOM HELPER-DRILL PRESS SET UP OPERATORTeresa Unavailable Ysabel Cabral MD Unavailable RAGHAVENDRA [...] source) Aspirin Drug Allergy shortness of breath [employer] Other (20 sources) Diclofenac Drug Allergy 07-05-19 Unknown [employer] Other (20 sources) Ibuprofen Drug Allergy 07-05-19 Unknown [employer] Other (20 sources) Naproxen Drug Allergy 07-05-19 Unknown [employer] Other (20 sources) NSAIDs Drug allergy 07-05-19 Unknown [employer] Other (1 source) Aspirin Drug Allergy 02-26-18 90 [facility] Repository (1 source) cyclobenzaprine Drug Allergy 01-10-20 15 [facility] Repository (1 source) Diclofenac Drug Allergy 01-10-20 15 [facility] Repository (1 source) Ibuprofen Drug Allergy 08-04-19 16 [facility] Repository (1 source) NSAIDs Drug allergy (disorder) 01-02-20 14 [facility] Repository (20 sources) Aluminum aspirin Drug Allergy 07-05-19 23 [facility] (20 sources) Amitriptyline Drug Allergy 03-22-19 18 [facility] (20 sources) cyclobenzaprine Drug Allergy 01-24-20 16 [facility] (20 sources) Lamotrigine Allergy to substance 07-05-19 23 [facility] (20 sources) meloxicam Drug Allergy 07-05-19 23 Unknown [facility] (20 sources) Sertraline Drug Allergy 01-01-20 24 [facility] Medications Current Medications Medication Drug Class(es) Dates [...] 3 01/10/2024 Active take 1 capsule by [facility] every twenty-four hours Omeprazole 20 MG 1 [...] 20 tablet 1 09/24/2023 11/28/2023 Discontinued (Other) [id number] 200 actuat albuterol 0.09 mg/actuat metered dose [...] US OB BPP W NON-STRESS on 04-15-2024 [place] [address] Ultrasound Report Signed Patient: TIKI MOELLER MR#: [id number] : 1985 Acct:[id number] Age/Sex: 38 / F ADM Date: 04/15/24 Loc: [facility] 250-[address]: Raghavendra Vasquez D.O. Ordering Physician: Raghavendra Vasquez D.O. Date of Service: 04/15/24 Procedure(s): US OB BPP w non-stress Accession Number(s): [id number] cc: YSABEL CABRAL ; Raghavendra Vasquez D.O. [place] [address] Patient Name: TIKI MOELLER MRN: [id number] date: 1985 Sex: F Assigned Patient Location: [facility] Current Patient Location: [facility] Accession/Order Number: [id number] Exam Date: 04/15/2024 16:26 Report Date: 04/15/2024 16:31 At the request of: RAGHAVENDRA VASQUEZ DO Procedure: US OB BPP w non-stress BIOPHYSICAL PROFILE: CLINICAL INFORMATION: Multigravida of advanced maternal age TECHNIQUE: Multiple ultrasonographic scans of the lower abdomen and pelvis were obtained. The fetus is in the cephalic presentation. The measurements are consistent with a 33 week 3 day gestation. The heart rate [id number] beats per minute. FINDINGS: TONE: 1 or [...] Shelli Mcghee M.D.04/15/2024 4:31 PM Dictation Location: [place] [address] Electronically authenticated by: [id number] Y Date: 04/15/2024 16:31 Dictated By: Shelli Mcghee M.D. Signed By: 04/15/24 1633 DD/ 1631 TD/TT: Boilermaker'S Assistant: [facility] Radiology, Radiologist, MD - 04/15/2024 [place] [address] Ultrasound Report Signed Patient: TIKI MOELLER MR#: [id number] : 1985 Acct:[id number] Age/Sex: 38 / F ADM Date: 04/15/24 Loc: [place] [address]-[address]: Raghavendra Vasquez D.O. Ordering Physician: Raghavendra Vasquez D.O. Date of Service: 04/15/24 Procedure(s): US OB BPP w non-stress Accession Number(s): [id number] cc: YSABEL CABRAL ; Raghavendra Vasquez D.O. The [place] [address] Patient Name: TIKI MOELLER MRN: [facility]:[id number] date: 1985 Sex: F Assigned Patient Location: [facility] Current Patient Location: [facility] Accession/Order Number: [id number] Exam Date: 04/15/2024 16:26 Report Date: 04/15/2024 16:31 At the request of: RAGHAVENDRA VASQUEZ DO Procedure: US OB BPP w non-stress BIOPHYSICAL PROFILE: CLINICAL INFORMATION: Multigravida of advanced maternal age TECHNIQUE: Multiple ultrasonographic scans of the lower abdomen and pelvis were obtained. The fetus is in the cephalic presentation. The measurements are consistent with a 33 week 3 day gestation. The heart rate [id number] beats per minute. FINDINGS: TONE: 1 or [...] Shelli Mcghee M.D.04/15/2024 4:31 PM Dictation Location: [place] [address] Electronically authenticated by: [id number] Y Date: 04/15/2024 16:31 Dictated By: Shelli Mcghee M.D. Signed By: 04/15/24 163 DD/ 163 TD/TT: Boilermaker'S Assistant: [facility] Radiology Study observation (narrative) [facility] OB BPP W NON-STRESS Ordered By: Radiologist Radiology on 04-15-2024 [facility] Work Phone: US OB GROWTHon 04-15-2024 [place] [address] Ultrasound Report Signed Patient: TIKI MOELLER MR#: [id number] : 1985 Acct:[id number] Age/Sex: 38 / F ADM Date: 04/15/24 Loc: [facility] 250-[address]: Raghavendra Vasquez D.O. Ordering Physician: Raghavendra Vasquez D.O. Date of Service: 04/15/24 Procedure(s): US OB growth Accession Number(s): [id number] cc: YSABEL CABRAL ; Raghavendra Vasquez D.O. The [address] [address] Patient Name: TIKI MOELLER MRN: [id number] date: 1985 Sex: F Assigned Patient Location: [facility] Current Patient Location: [facility] Accession/Order Number: [id number] Exam Date: 04/15/2024 16:31 Report Date: 04/15/2024 [...] Shelli Mcghee M.D.04/15/2024 4:37 PM Dictation Location: [place] [address] Electronically authenticated by: [id number] Y Date: 04/15/2024 16:37 Dictated By: Shelli Mcghee M.D. Signed By: 04/15/24 1640 DD/ 1637 TD/TT: Boilermaker'S Assistant: [facility] Radiology, Radiologist, - 04/15/2024 [place] [address] Ultrasound Report Signed Patient: TIKI MOELLER MR#: [id number] : 1985 Acct:[id number] Age/Sex: 38 / F ADM Date: 04/15/24 Loc: [facility] 250-[address]: Raghavendra Vasquez D.O. Ordering Physician: Raghavendra Vasquez D.O. Date of Service: 04/15/24 Procedure(s): US OB growth Accession Number(s): [id number] cc: YSABEL CABRAL ; Raghavendra Vasquez D.O. The [address] [address] Patient Name: TIKI MOELLER MRN: [facility]:[id number] date: 1985 Sex: F Assigned Patient Location: [facility] Current Patient Location: [facility] Accession/Order Number: [id number] Exam Date: 04/15/2024 16:31 Report Date: 04/15/2024 [...] Shelli Mcghee M.D.04/15/2024 4:37 PM Dictation Location: [place] [address] Electronically authenticated by: [id number] Y Date: 04/15/2024 16:37 Dictated By: Shelli Mcghee M.D. Signed By: 04/15/24 1640 DD/ 1637 TD/TT: Boilermaker'S Assistant: [facility] Radiology Study observation (narrative) [facility] OB GROWTHOrdered By: Liang ologry Radiology on 04-15-2024 [facility] Work Phone: Urinalysis macro (dipstick) panel (U)on 04-08-2024 Bilirubin, UA Negative Negative - 4(70) +++ mg/dL [facility] Blood, UA Negative Negative - 50 Armand/mcL [facility] Clarity, UA Clear [facility] Color, UA Yellow [facility] Glucose, UA Negative Negative - 1999(110) ++++ mg/dL [facility] Interpretation and review of laboratory results Abnormal [facility] Ketones, UA Negative Negative - 160(16) ++++ mg/dL [facility] Leukocytes, UA Negative Negative - 500+++ Doe/mcL [facility] Nitrite, UA Negative Negative - Positive [facility] pH, UA 7 5 - 9 [facility] Protein, UA Trace Negative - 1999(20) ++++ mg/dL [facility] Spec Grav, UA 1.025 1 - 1.03 [facility] Urobilinogen, UA 1.0 0.2 - 12 mg/dL [facility] Healthcare OB GROWTHon 03-25-2024 [place] [address] Ultrasound Report Signed Patient: TIKI MOELLER MR#: [id number] : 1985 Acct:[id number] Age/Sex: 38 / F ADM Date: 03/25/24 Loc: US Attending Dr: Raghavendra Vasquez D.O. Ordering Physician: Raghavendra Vasquez D.O. Date of Service: 03/25/24 Procedure(s): US OB growth Accession Number(s): [id number] cc: YSABEL CABRAL ; Raghavendra Vasquez D.O. [place] [address] Patient Name: TIKI MOELLER MRN: [facility]:[id number] date: 1985 Sex: F Assigned Patient Location: Current Patient Location: US Accession/Order Number: [id number] Exam Date: 03/25/2024 11:02 Report Date: 03/25/2024 [...] Signed By: 03/25/24 1150 DD/ 1147 TD/TT: Boilermaker'S Assistant: [facility] Radiology, Radiologist, - 03/25/2024 [place] [address] Ultrasound Report Signed Patient: TIKI MOELLER MR#: [id number] : 1985 Acct:[id number] Age/Sex: 38 / F ADM Date: 03/25/24 Loc: US Attending Dr: Raghavendra Vasquez D.O. Ordering Physician: Raghavendra Vasquez D.O. Date of Service: 03/25/24 Procedure(s): US OB growth Accession Number(s): [id number] cc: YSABEL CABRAL ; Raghavendra Vasquez D.O. The [place] [address] Patient Name: TIKI MOELLER MRN: [facility]:[id number] date: 1985 Sex: F Assigned Patient Location: US Current Patient Location: US Accession/Order Number: [id number] Exam Date: 03/25/2024 11:02 Report Date: 03/25/2024 [...] Signed By: 03/25/24 1150 DD/ 1147 TD/TT: Boilermaker'S Assistant: [facility] Radiology Study observation (narrative) [facility] US OB GROWTHOrdered By: Liang ologry Radiology on 03-25-2024 [facility] Work Phone: Urinalysis macro (dipstick) panel (U)on 03-25-2024 Bilirubin, UA Positive Negative - 4(70) +++ mg/dL [facility] Blood, UA Negative Negative - 50 Armand/mcL [facility] Clarity, UA Clear [facility] Color, UA Yellow [facility] Glucose, UA Negative Negative - 1999(110) ++++ mg/dL [facility] Interpretation and review of laboratory results Abnormal [facility] Ketones, UA Positive Negative - 160(16) ++++ mg/dL [facility] Leukocytes, UA Negative Negative - 500+++ Doe/mcL [facility] Nitrite, UA Positive Negative - Positive [facility] pH, UA 6.5 5 - 9 [facility] Protein, UA Positive Negative - 1999(20) ++++ mg/dL [facility] Spec Grav, UA 1.025 1 - 1.03 [facility] Urobilinogen, UA 1.0 0.2 - 12 mg/dL [facility] Urinalysis macro (dipstick) panel (U)on 03-11-2024 Bilirubin, UA Negative Negative - 4(70) +++ mg/dL [facility] Blood, UA Negative Negative - 50 Armand/mcL [facility] Clarity, UA Clear [facility] Color, UA Yellow [facility] Glucose, UA Negative Negative - 1999(110) ++++ mg/dL [facility] Interpretation and review of laboratory results Abnormal [facility] Ketones, UA Negative Negative - 160(16) ++++ mg/dL [facility] Leukocytes, UA Negative Negative - 500+++ Doe/mcL [facility] Nitrite, UA Negative Negative - Positive [facility] pH, UA 7 5 - 9 [facility] Protein, UA Positive Negative - 2000(20) ++++ mg/dL [facility] Comment on above: 30 Spec Grav, UA 1.025 1 - 1.03 [facility] Urobilinogen, UA 0.2 0.2 - 12 mg/dL [facility] ALL CBC WITH AUTO DIFFon BASOPHILS ABSOLUTE AUTO 0 [facility] Basophils/100 WBC (Bld) 0.2 % 0.2 - 2.0 % [facility] Eosinophils/100 WBC (Bld) 0.6 % Low 0.9 - 7.0 % [facility] Erythrocyte distribution width (RBC) [Ratio] 13 % 11.0 - 15.0 % [facility] Hematocrit (Bld) [Volume fraction] 32.2 % Low 36.0 - 48.0 % [facility] Hemoglobin (Bld) [Mass/Vol] 10.3 g/dL Low 12.0 - 16.0 g/dL [facility] IMMATURE GRANULOCYTES ABS AUTO 0.06 High [facility] Immature granulocytes/100 WBC (Bld) 0.6 % High 0.0 - 0.5 % [facility] Interpretation and review of laboratory results Abnormal [facility] LYMPHOCYTES ABSOLUTE AUTO 1.8 [facility] Lymphocytes/100 WBC (Bld) 19.1 % Low 20.5 - 60.0 % [facility] MCH (RBC) [Entitic mass] 25.9 pg Low 26.7 - 34.0 pg [facility] MCHC (RBC) [Mass/Vol] 32 g/dL 29.9 - 35.2 g/dL [facility] MCV (RBC) [Entitic vol] 81.1 fL 81.0 - 99.0 fL [facility] MONOCYTES ABSOLUTE AUTO 0.5 [facility] Monocytes/100 WBC (Bld) 5.5 % 1.7 - 12.0 % [facility] NEUTROPHILS ABSOLUTE AUTO 7 High [facility] Neutrophils/100 WBC (Bld) 74 % 43.0 - 75.0 % [facility] Platelet mean volume (Bld) [Entitic vol] 10.7 fL 9.5 - 13.5 fL [facility] EO # 0.1 [facility] PLT 238 [facility] RBC 3.97 Low [facility] WBC 9.4 [facility] UA (CLEAN/CATCH) DRILL PRESS SET UP OPERATOR/LA RO IF IND.on 03-07-2024 BILIRUBIN URINE Negative NEGATIVE [facility] BLOOD URINE Negative NEGATIVE [facility] Clarity (U) CLEAR CLEAR [facility] Color (U) YELLOW YELLOW [facility] GLUCOSE URINE UA Negative NEGATIVE mg/dL [facility] Interpretation and review of laboratory results Abnormal [facility] Ketones Ql (U) TRACE Abnormal NEGATIVE mg/dL [facility] Leukocyte esterase Test strip Ql (U) Negative NEGATIVE [facility] NITRITE URINE Negative NEGATIVE [facility] pH (U) 7.5 [pH] 5.0 - 9.0 [facility] PROTEIN URINE TRACE NEG/TRACE mg/dL [facility] SPECIFIC GRAVITY URINE 1.025 1.005 - 1.025 [facility] URINE MICROSCOPIC INDICATED NO [facility] UROBILINOGEN URINE 1.0 EU/dL 0.2 - 1.0 EU/dL [facility] Urinalysis macro (dipstick) panel (U)on 02-11-2024 Bilirubin, UA Negative Negative - 4(70) +++ mg/dL [facility] Blood, UA Negative Negative - 50 Armand/mcL [facility] Clarity, UA Clear [facility] Color, UA Yellow [facility] Glucose, UA Negative Negative - 2000(110) ++++ mg/dL [facility] Interpretation and review of laboratory results Abnormal [facility] Ketones, UA Negative Negative - 160(16) ++++ mg/dL [facility] Leukocytes, UA Negative Negative - 500+++ Doe/mcL [facility] Nitrite, UA Negative Negative - Positive [facility] pH, UA 7.5 5 - 9 [facility] Protein, UA Trace Negative - 1999(20) ++++ mg/dL [facility] Spec Grav, UA 1.015 1 - 1.03 [facility] Urobilinogen, UA 0.2 0.2 - 12 mg/dL [facility] IGP,APTIMA HPV,AGE GDLNon AGE GDLN ACOG TESTING Note . [facility] Comment on above: TESTS RESULT FLAG UN ITS REF RANGE LAB Clinician Provided Cytology Information Source.............[facility] Other.............. No. of containers..01 ThinPrep Vial Age Algo ACOG Beverly... 30-65 FLAG LEGEND: L-Low Normal,H-High Normal,LL-Alert Low,HH-Alert High <-Panic Low,>-Panic High,A-Abnormal,AA-Critical Abnormal Performed at: 01 =G [facility] [place] [address] Judith Ventura MD, HPV APTIMA Negative Negative [facility] Comment on above: This nucleic acid am plification test detects fourteen high- risk HPV types (16,18,31,33,35,39,45,51,52,56,58,59,66,68) without differentiation. Performed at: =[facility] [employer] [employer] [facility] [address] [id number] Shank Cementer Hand: Judith Ventura MD, Phone: [phone] Performed at: - [facility] [id number] Shank Cementer Hand: Judith Ventura MD, Phone: [phone] IGP, APTIMA HPV, RFX 16/18,45 Note . [facility] Comment on above: TESTS RESULT FLAG U NITS REF RANGE LAB DIAGNOSIS: 02 NEGATIVE FOR INTRAEPITHELIAL LESION OR MALIGNANCY. Specimen adequacy: 02 Satisfactory for evaluation. Endocervical and/or squamous metaplastic cells (endocervical component) are present. Performed by: 02 Ashli Frank, News Clipping Cutter (ASCP) . 02 Note: Note 02 The [...] Low,>-Panic High,A-Abnormal,AA-Critical Abnormal Performed at: [address] [facility] [address] [address] Judith Ventura MD, SPATULA-ALONE CERVIX [facility] RECURRENT VAGINITIS (HTRX)on 01-11-2024 ATOPOBIUM VAGINAE 0 [facility] ATOPOBIUM VAGINAE Not detected [facility] BVAB 2,3 (BACTERIAL VAGINOSIS ASSOCIATED BACTERIA 2, 3); MOBILUNCUS SPP 0 [facility] BVAB 2,3 (BACTERIAL VAGINOSIS ASSOCIATED BACTERIA 2, 3); MOBILUNCUS SPP Not detected [facility] LOC ALBICANS, PARAPSILOSIS, TROPICALIS 0 [facility] LOC ALBICANS, PARAPSILOSIS, TROPICALIS Not detected [facility] LOC GLABRATA 0 [facility] LOC GLABRATA Not detected [facility] LOC KRUSEI 0 [facility] LOC KRUSEI Not detected [facility] CHLAMYDIA TRACHOMATIS 0 [facility] CHLAMYDIA TRACHOMATIS Not detected [facility] GARDNERELLA VAGINALIS 0 [facility] GARDNERELLA VAGINALIS Not detected [facility] MEGASPHAERA (TYPES 1, 2) 0 [facility] MEGASPHAERA (TYPES 1, 2) Not detected [facility] MYCOPLASMA GENITALIUM 0 [facility] MYCOPLASMA GENITALIUM Not detected [facility] NEISSERIA GONORRHOEAE 0 [facility] NEISSERIA GONORRHOEAE Not detected [facility] TRICHOMONAS VAGINALIS 0 [facility] TRICHOMONAS VAGINALIS Not detected [facility] Urinalysis macro (dipstick) panel (U)on 01-10-2024 Bilirubin, UA Negative Negative - 4(70) +++ mg/dL [facility] Blood, UA Negative Negative - 50 Armand/mcL [facility] Clarity, UA Clear [facility] Color, UA Yellow [facility] Glucose, UA Negative Negative - 1999(110) ++++ mg/dL [facility] Interpretation and review of laboratory results Abnormal [facility] Ketones, UA Positive Negative - 160(16) ++++ mg/dL [facility] Leukocytes, UA Negative Negative - 500+++ Doe/mcL [facility] Nitrite, UA Negative Negative - Positive [facility] pH, UA 7 5 - 9 [facility] Protein, UA Negative Negative - 1999(20) ++++ mg/dL [facility] Spec Grav, UA 1.015 1 - 1.03 [facility] Urobilinogen, UA 1.0 0.2 - 12 mg/dL [facility] ALL CBC WITH AUTO DIFFon BASOPHILS ABSOLUTE AUTO 0.0 [facility] Basophils/100 WBC (Bld) 0.2 % 0.2 - 2.0 % [facility] Eosinophils/100 WBC (Bld) 2.3 % 0.9 - 7.0 % [facility] Erythrocyte distribution width (RBC) [Ratio] 12.3 % 11.0 - 15.0 % [facility] Hematocrit (Bld) [Volume fraction] 37.1 % 36.0 - 48.0 % [facility] Hemoglobin (Bld) [Mass/Vol] 12.3 g/dL 12.0 - 16.0 g/dL [facility] IMMATURE GRANULOCYTES ABS AUTO 0.04 High [facility] Immature granulocytes/100 WBC (Bld) 0.4 % 0.0 - 0.5 % [facility] Interpretation and review of laboratory results Abnormal [facility] LYMPHOCYTES ABSOLUTE AUTO 2.7 [facility] Lymphocytes/100 WBC (Bld) 28.4 % 20.5 - 60.0 % [facility] MCH (RBC) [Entitic mass] 28.0 pg 26.7 - 34.0 pg [facility] MCHC (RBC) [Mass/Vol] 33.2 g/dL 29.9 - 35.2 g/dL [facility] MCV (RBC) [Entitic vol] 84.3 fL 81.0 - 99.0 fL [facility] MONOCYTES ABSOLUTE AUTO 0.5 [facility] Monocytes/100 WBC (Bld) 5.0 % 1.7 - 12.0 % [facility] NEUTROPHILS ABSOLUTE AUTO 6.0 [facility] Neutrophils/100 WBC (Bld) 63.7 % 43.0 - 75.0 % [facility] Platelet mean volume (Bld) [Entitic vol] 10.4 fL 9.5 - 13.5 fL [facility] EO # 0.2 [facility] PLT 253 [facility] RBC 4.40 [facility] TB WBC 9.4 [facility] Urinalysis macro (dipstick) panel (U)on 11-28-2023 Bilirubin, UA Negative Negative - 4(70) +++ mg/dL [facility] Blood, UA Negative Negative - 50 Armand/mcL [facility] Clarity, UA Clear [facility] Color, UA Yellow [facility] Glucose, UA Negative Negative - 1999(110) ++++ mg/dL [facility] Interpretation and review of laboratory results Normal [facility] Ketones, UA Negative Negative - 160(16) ++++ mg/dL [facility] Leukocytes, UA Negative Negative - 500+++ Doe/mcL [facility] Nitrite, UA Negative Negative - Positive [facility] pH, UA 7.0 5 - 9 [facility] [facility] Protein, UA Negative Negative - 1999(20) ++++ mg/dL [facility] Spec Grav, UA 1.025 1 - 1.03 [facility] Urobilinogen, UA 1.0 0.2 - 12 mg/dL [facility] URINE CULTURE, ROUTINEon Bacteria identified Cx Nom (U) Urine Culture, Routine [facility] Bacteria identified Cx Nom (U) Culture shows less than 10,000 colony forming units of bacteria per [facility] Bacteria identified Cx Nom (U) milliliter of urine. This colony count is not generally considered [facility] Bacteria identified Cx Nom (U) to be clinically significant. [facility] Bacteria identified Cx Nom (U) Performed at: - [facility] Bacteria identified Cx Nom (U) [address] [place] [address] [phone] [facility] Bacteria identified Cx Nom (U) Shank Cementer Hand: Michael Berry PhD, Phone: [phone] [facility] HCG ( test) Ql (U)o n 11-01-2023 Interpretation and review of laboratory results Abnormal [facility] Preg Test, Ur Positive [facility] Urinalysis macro (dipstick) panel (U)on 11-01-2023 Bilirubin, UA Negative Negative - 4(70) +++ mg/dL [facility] Blood, UA Negative Negative - 50 Armand/mcL [facility] Clarity, UA Clear [facility] Color, UA Yellow [facility] Glucose, UA Negative Negative - 1999(110) ++++ mg/dL [facility] Interpretation and review of laboratory results Normal [facility] Ketones, UA Negative Negative - 160(16) ++++ mg/dL [facility] Leukocytes, UA Negative Negative - 500+++ Doe/mcL [facility] Nitrite, UA Negative Negative - Positive [facility] pH, UA 6.0 5 - 9 [facility] Protein, UA Negative Negative - 1999(20) ++++ mg/dL [facility] Spec Grav, UA 1.020 1 - 1.03 [facility] Urobilinogen, UA 0.2 0.2 - 12 mg/dL [...] [Mass/Vol] 8.9 mg/dL Normal (8.6 - 10.6) [facility] Comment on above: Performed By: #### C BC/2A, ESRCRP, CCP, HBC-M, HBSAG, HCV, CA, MG, RHF, URCA #### [facility] [address] [facility], [address] CBC, ALB, ALT, AST, ALK AND CREAon 12-18-2022 Albumin [Mass/Vol] 5.0 g/dL Normal (3.5 - 5.0) [facility] Comment on above: Order Comment: FACIL ITY: [facility] [id number] Performed By: #### C BC/2A, ESRCRP, CCP, HBC-M, HBSAG, HCV, CA, MG, RHF, URCA #### [facility] [address] [facility], [address] ALK PHOS 60 U/L Normal (38 - 126) [facility] Comment on above: Order Comment: FACIL ITY: [facility] NWO [id number] Performed By: #### C BC/2A, ESRCRP, CCP, HBC-M, HBSAG, HCV, CA, MG, RHF, URCA #### [facility] [address] [facility], [address] ALT [Catalytic activity/Vol] 34 U/L Normal (1 - 35) [facility] Comment on above: Order Comment: FACIL ITY: [facility] [id number] Performed By: #### C BC/2A, ESRCRP, CCP, HBC-M, HBSAG, HCV, CA, MG, RHF, URCA #### [facility] [address] [facility], [address] AST [Catalytic activity/Vol] 34 U/L Normal (15 - 46) [facility] Comment on above: Order Comment: FACIL ITY: [facility] [id number] Performed By: #### C BC/2A, ESRCRP, CCP, HBC-M, HBSAG, HCV, CA, MG, RHF, URCA #### [facility] [address] [facility], [address] Creatinine [Mass/Vol] 0.61 mg/dL Normal (0.52 - 1.04) [facility] Comment on above: Order Comment: FACIL ITY: [facility] [id number] Performed By: #### C BC/2A, ESRCRP, CCP, HBC-M, HBSAG, HCV, CA, MG, RHF, URCA #### [facility] [address] [facility], [address] GFR- AMER 135.1 ML/M1.7 Normal (60.0 - 140.1) [facility] Comment on above: Order Comment: FACIL ITY: [facility] [id number] Performed By: #### C BC/2A, ESRCRP, CCP, HBC-M, HBSAG, HCV, CA, MG, RHF, URCA #### [facility] [address] [facility], [address] GFR-NON AFRIC-AMER 111.6 ML/M1.7 Normal (60.0 - 115.8) [facility] Comment on above: Order Comment: FACIL ITY: [facility] [id number] Performed By: #### C BC/2A, ESRCRP, CCP, HBC-M, HBSAG, HCV, CA, MG, RHF, URCA #### [facility] [address] [facility], [id number] Hematocrit (Bld) [Volume fraction] 41.5 % Normal (37.0 - 47.0) [facility] Comment on above: Order Comment: FACIL ITY: [facility] [id number] Performed By: #### C BC/2A, ESRCRP, CCP, HBC-M, HBSAG, HCV, CA, MG, RHF, URCA #### [facility] [address] [facility], [id number] Hemoglobin (Bld) [Mass/Vol] 13.5 g/dL Normal (12.0 - 16.0) [facility] Comment on above: Order Comment: FACIL ITY: [facility] [id number] Performed By: #### C BC/2A, ESRCRP, CCP, HBC-M, HBSAG, HCV, CA, MG, RHF, URCA #### [facility] [address] [facility], [id number] MCH (RBC) [Entitic mass] 28.7 pg Normal (27.0 - 33.0) [facility] Comment on above: Order Comment: FACIL ITY: [facility] [id number] Performed By: #### C BC/2A, ESRCRP, CCP, HBC-M, HBSAG, HCV, CA, MG, RHF, URCA #### [facility] [address] [facility], [id number] MCHC (RBC) [Mass/Vol] 32.5 g/dL Normal (30.0 - 37.0) [facility] Comment on above: Order Comment: FACIL ITY: [facility] [id number] Performed By: #### C BC/2A, ESRCRP, CCP, HBC-M, HBSAG, HCV, CA, MG, RHF, URCA #### [facility] [address] [facility], [address] MCV (RBC) [Entitic vol] 88.1 fL Normal (81.0 - 99.0) [facility] Comment on above: Order Comment: FACIL ITY: [facility] [id number] Performed By: #### C BC/2A, ESRCRP, CCP, HBC-M, HBSAG, HCV, CA, MG, RHF, URCA #### [facility] [address] [facility], [address] PLT 282 x10^3ul Normal (130 - 400) [facility] Comment on above: Order Comment: FACIL ITY: [facility] [id number] Performed By: #### C BC/2A, ESRCRP, CCP, HBC-M, HBSAG, HCV, CA, MG, RHF, URCA #### [facility] [address] [facility], [address] RBC 4.71 x10^6ul Normal (4.20 - 5.40) [facility] Comment on above: Order Comment: FACIL ITY: [facility] O [id number] Performed By: #### C BC/2A, ESRCRP, CCP, HBC-M, HBSAG, HCV, CA, MG, RHF, URCA #### [facility] [address] [facility], [address] WBC 6.47 x10^3ul Normal (3.80 - 10.60) [facility] Comment on above: Order Comment: FACIL ITY: [facility] O [id number] Performed By: #### C BC/2A, ESRCRP, CCP, HBC-M, HBSAG, HCV, CA, MG, RHF, URCA #### [facility] [address] [facility], [address] HEP B CORE AB, IGMon -23-2 023 HEPATITIS B CORE ANTIBODY, IGM Negative Normal (NEG - NEG) [facility] Comment on above: Performed By: #### C BC/2A, ESRCRP, CCP, HBC-M, HBSAG, HCV, CA, MG, RHF, URCA #### [facility] [address] [facility], [address] HEP B HERACLIO AGon 12-18-2022 HEP B HERACLIO AG Negative Normal (NEG - NEG) [facility] Comment on above: Performed By: #### C BC/2A, ESRCRP, CCP, HBC-M, HBSAG, HCV, CA, MG, RHF, URCA #### [facility] [address] [facility], [address] HEP C ANTIBODYon 12-18-2022 HEPATITIS C ANTIBODY Negative Normal (NEG - NEG) [facility] Comment on above: Performed By: #### C BC/2A, ESRCRP, CCP, HBC-M, HBSAG, HCV, CA, MG, RHF, URCA #### [facility] [address] [facility], [address] MAGNESIUMon 12-18-2022 Magnesium [Mass/Vol] 2.0 mg/dL Normal (1.6 - 2.3) [facility] Comment on above: Performed By: #### C BC/2A, ESRCRP, CCP, HBC-M, HBSAG, HCV, CA, MG, RHF, URCA #### [facility] [address] [facility], [address] RF FACTORon 12-18-2022 RF FACTOR <9 Normal (0 - 12) [facility] Comment on above: Result Comment: RF F ACTOR = LESS THAN 9 IU/ML RF FACTOR MIN. DETECTION = 9 IU/ML. Performed By: #### C BC/2A, ESRCRP, CCP, HBC-M, HBSAG, HCV, CA, MG, RHF, URCA #### [facility] [address] [facility], [address] SED RATE - CRPon 12-18-2022 CRP EXTENDED RANGE 1.40 MG/L Normal (0.00 - 3.20) [facility] Comment on above: Performed By: #### C BC/2A, ESRCRP, CCP, HBC-M, HBSAG, HCV, CA, MG, RHF, URCA #### [facility] [address] [facility], [address] SED RATE WEST. 5 MM/HR Normal (0 - 25) [facility] Comment on above: Performed By: #### C BC/2A, ESRCRP, CCP, HBC-M, HBSAG, HCV, CA, MG, RHF, URCA #### [facility] [address] [facility], [address] URIC ACIDon 12-18-2022 Urate [Mass/Vol] 4.2 mg/dL Normal (2.5 - 6.2) [facility] Comment on above: Performed By: #### C BC/2A, ESRCRP, CCP, HBC-M, HBSAG, HCV, CA, MG, RHF, URCA #### [facility] [address] [facility], [address] PAP ACOG PANEL 2: 30 to 65on 11-16-2021 . . Normal [facility] Comment on above: Result Comment: Perf ormed at: WB Performed By: #### 4 [id number] #### [facility] [address] [place] [address] Dr. Sierra Almonte Age Gdln ACOG Testing 30-65 Normal [facility] Comment on above: Performed By: #### 4 [id number] #### [facility] [address] [address] [address] Sierra Almonte DIAGNOSIS: Comment Normal [facility] Comment on above: Result Comment: NEGA TIVE FOR INTRAEPITHELIAL LESION OR MALIGNANCY. Performed at: WB Performed By: #### 4 [id number] #### [facility] [address] [address] [address] Sierra Almonte HPV Aptima Negative Normal Negative [facility] Comment on above: Result Comment: This nucleic acid amplification test detects fourteen high-risk HPV types (16,18,31,33,35,39,45,51,52,56,58,59,66,68) without differentiation. Performed at: =G Performed By: #### 4 [id number] #### [facility] [address] [place] [address] Dr. Sierra Almonte Methodology: Comment Normal [facility] Comment on above: Result Comment: This liquid based ThinPrep(R) pap test was screened with the use of an image guided system. Performed at: WB Performed By: #### 4 [id number] #### [facility] [address] [place] [address] Dr. Sierra Almonte Note: Comment Normal [facility] Comment on above: Result Comment: The Pap smear is a screening test designed to aid in the detection of premalignant and malignant conditions of the uterine cervix. It is not a diagnostic procedure and should not be used as the sole means of detecting cervical cancer. Both false-positive and false-negative reports do occur. . Performed at: WB Performed By: #### 4 [id number] #### [facility] [address] [place] [address] Dr. Sierra Almonte Performed by: Comment Normal [facility] Comment on above: Result Comment: Alison Nava, News Clipping Cutter (ASCP) Performed at: WB Performed By: #### 4 [id number] #### [facility] [address] [place] [address] Dr. Sierra Almonte Specimen adequacy: Comment Normal [facility] Comment on above: Result Comment: Sati sfactory for evaluation. Endocervical and/or squamous metaplastic cells (endocervical component) are present. Performed at: WB Performed By: #### 4 [id number] #### [facility] [address] [place] [address] Dr. Sierra Almonte Thyroidon 07-14-2021 US Thyroid [...] Smith on 07/14/2021 1000 Normal [facility] Complete Blood Count with Au to Diffon 07-12-2021 Basophils (Bld) [#/Vol] 0.02 10*3/uL Normal 0.00-0.20 [facility] Specialist Comment on above: Performed By: #### C BCAD, RF, VITD, ESR, TSH reflex FT4, CMP, FT4 #### [facility] [address] [place], [place] [id number] Basophils/100 WBC (Bld) 0.3 % Normal [facility] Specialist Comment on above: Performed By: #### C BCAD, RF, VITD, ESR, TSH reflex FT4, CMP, FT4 #### [facility] [address] [place], [place] [id number] Eosinophils (Bld) [#/Vol] 0.08 10*3/uL Normal 0.02-0.50 [facility] Specialist Comment on above: Performed By: #### C BCAD, RF, VITD, ESR, TSH reflex FT4, CMP, FT4 #### [facility] [address] [place], [place] [id number] Eosinophils/100 WBC (Bld) 1.2 % Normal [facility] Specialist Comment on above: Performed By: #### C BCAD, RF, VITD, ESR, TSH reflex FT4, CMP, FT4 #### [facility] [address] [place], [place] [id number] Erythrocyte distribution width (RBC) [Ratio] 13.8 % Normal 11.0-15.0 [facility] Specialist Comment on above: Performed By: #### C BCAD, RF, VITD, ESR, TSH reflex FT4, CMP, FT4 #### [facility] [address] [place], [place] [id number] Hematocrit (Bld) [Volume fraction] 39.6 % Normal 35.0-47.0 [facility] Specialist Comment on above: Performed By: #### C BCAD, RF, VITD, ESR, TSH reflex FT4, CMP, FT4 #### [facility] [address] [place], [place] [id number] Hemoglobin (Bld) [Mass/Vol] 12.9 g/dL Normal 11.6-15.5 [facility] Specialist Comment on above: Performed By: #### C BCAD, RF, VITD, ESR, TSH reflex FT4, CMP, FT4 #### [facility] [address] [place], [place] [id number] Lymphocytes (Bld) [#/Vol] 1.3 10*3/uL Normal 0.9-3.9 [facility] Specialist Comment on above: Performed By: #### C BCAD, RF, VITD, ESR, TSH reflex FT4, CMP, FT4 #### [facility] [address] [place], [place] [id number] Lymphocytes/100 WBC (Bld) 20.3 % Normal [facility] Specialist Comment on above: Performed By: #### C BCAD, RF, VITD, ESR, TSH reflex FT4, CMP, FT4 #### [facility] [address] [place], [place] [id number] MCH (RBC) [Entitic mass] 28.3 pg Normal 27.0-33.0 [facility] Special[facility] Comment on above: Performed By: #### C BCAD, RF, VITD, ESR, TSH reflex FT4, CMP, FT4 #### [facility] [address] [place], [place] [id number] MCHC (RBC) [Mass/Vol] 32.6 g/dL Normal 32.0-36.0 [facility] [employer] Comment on above: Performed By: #### C BCAD, RF, VITD, ESR, TSH reflex FT4, CMP, FT4 #### [facility] [address] [place], [place] [id number] MCV (RBC) [Entitic vol] 87 fL Normal 80-100 [facility] [employer] Comment on above: Performed By: #### C BCAD, RF, VITD, ESR, TSH reflex FT4, CMP, FT4 #### [facility] [address] [place], [place] [id number] Monocytes (Bld) [#/Vol] 0.4 10*3/uL Normal 0.2-0.9 [facility] [employer] Comment on above: Performed By: #### C BCAD, RF, VITD, ESR, TSH reflex FT4, CMP, FT4 #### [facility] [address] [place], [place] [id number] Monocytes/100 WBC (Bld) 5.8 % Normal [facility] [employer] Comment on above: Performed By: #### C BCAD, RF, VITD, ESR, TSH reflex FT4, CMP, FT4 #### [facility] [address] [place], [place] [id number] Neutrophils (Bld) [#/Vol] 4.7 10*3/uL Normal 1.5-7.8 [facility] [employer] Comment on above: Performed By: #### C BCAD, RF, VITD, ESR, TSH reflex FT4, CMP, FT4 #### [facility] [address] [place], [place] [id number] Neutrophils/100 WBC (Bld) 72.1 % Normal [facility] [employer] Comment on above: Performed By: #### C BCAD, RF, VITD, ESR, TSH reflex FT4, CMP, FT4 #### [facility] [address] [place], [place] [id number] Platelet mean volume (Bld) [Entitic vol] 11.00 fL Normal 7.50-12.50 [facility] [employer] Comment on above: Performed By: #### C BCAD, RF, VITD, ESR, TSH reflex FT4, CMP, FT4 #### [facility] [address] [place], [place] [id number] Platelets (Bld) [#/Vol] 271 10*3/uL Normal 140-400 [facility] [employer] Comment on above: Performed By: #### C BCAD, RF, VITD, ESR, TSH reflex FT4, CMP, FT4 #### [facility] [address] [place], [place] [id number] RBC (Bld) [#/Vol] 4.56 10*6/uL Normal 3.90-5.20 [facility] [employer] Comment on above: Performed By: #### C BCAD, RF, VITD, ESR, TSH reflex FT4, CMP, FT4 #### [facility] [address] [place], [place] [id number] RDW-SD 43.5 fL Normal 37.0-50.0 [facility] [employer] Comment on above: Performed By: #### C BCAD, RF, VITD, ESR, TSH reflex FT4, CMP, FT4 #### [facility] [address] [place], [place] [id number] WBC (Bld) [#/Vol] 6.5 10*3/uL Normal 3.8-11.0 [employer] [place] [employer] Comment on above: Performed By: #### C BCAD, RF, VITD, ESR, TSH reflex FT4, CMP, FT4 #### [facility] [address] [place], [place] [id number] Comprehensive Metabolic Pane [facility] 07-12-2021 Albumin [Mass/Vol] 4.9 g/dL Normal 3.6-5.1 [facility] [place] [employer] Comment on above: Performed By: #### C BCAD, RF, VITD, ESR, TSH reflex FT4, CMP, FT4 #### [facility] [address] [place], [place] [id number] Albumin/Globulin [Mass ratio] 2.2 {ratio} Normal 1.0-2.5 [facility] [employer] Comment on above: Performed By: #### C BCAD, RF, VITD, ESR, TSH reflex FT4, CMP, FT4 #### [facility] [address] [facility] [place] [id number] ALP [Catalytic activity/Vol] 63 U/L Normal 35-119 [facility] Comment on above: Performed By: #### C BCAD, RF, VITD, ESR, TSH reflex FT4, CMP, FT4 #### [facility] [address] [facility] [place] [id number] ALT [Catalytic activity/Vol] 26 U/L Normal 6-33 [facility] Comment on above: Result Comment: 01/26 Female reference range changed. Performed By: #### C BCAD, RF, VITD, ESR, TSH reflex FT4, CMP, FT4 #### [facility] [address] [place], [place] [id number] Anion gap [Moles/Vol] 18 mmol/L Normal 12-20 [facility] Comment on above: Result Comment: Effe ctive 03/03/2019 reference range changed. Performed By: #### C BCAD, RF, VITD, ESR, TSH reflex FT4, CMP, FT4 #### [facility] [address] [facility] [place] [id number] AST [Catalytic activity/Vol] 26 U/L Normal 9-34 [facility] Comment on above: Performed By: #### C BCAD, RF, VITD, ESR, TSH reflex FT4, CMP, FT4 #### [facility] [address] [place], [place] [id number] BUN/CREA 10 Ratio Normal 6-22 [facility] Comment on above: Performed By: #### C BCAD, RF, VITD, ESR, TSH reflex FT4, CMP, FT4 #### [facility] [address] [facility] [place] [id number] Calcium [Mass/Vol] 10.0 mg/dL Normal 8.6-10.2 [facility] Comment on above: Performed By: #### C BCAD, RF, VITD, ESR, TSH reflex FT4, CMP, FT4 #### [facility] [address] [facility] [place] [id number] Chloride [Moles/Vol] 105 mmol/L Normal 98-107 [facility] Specialist Comment on above: Performed By: #### C BCAD, RF, VITD, ESR, TSH reflex FT4, CMP, FT4 #### [facility] [address] [place], [place] [id number] CO2 [Moles/Vol] 21 mmol/L Normal 20-31 [facility] Specialist Comment on above: Performed By: #### C BCAD, RF, VITD, ESR, TSH reflex FT4, CMP, FT4 #### [facility] [address] [place], [place] [id number] Creatinine [Mass/Vol] 0.6 mg/dL Normal 0.6-1.4 [facility] Comment on above: Performed By: #### C BCAD, RF, VITD, ESR, TSH reflex FT4, CMP, FT4 #### [facility] [address] [place], [place] [id number] eGFRAA 132 mL/min/1.73m2 Normal >60 [facility] Comment on above: Performed By: #### C BCAD, RF, VITD, ESR, TSH reflex FT4, CMP, FT4 #### [facility] [address] [place], [place] [id number] eGFRNAA 109 mL/min/1.73m2 Normal >60 [facility] Specialist Comment on above: Performed By: #### C BCAD, RF, VITD, ESR, TSH reflex FT4, CMP, FT4 #### [facility] [address] [place], [place] [id number] Globulin (S) [Mass/Vol] 2.2 g/dL Normal 1.9-3.7 [facility] Specialist Comment on above: Performed By: #### C BCAD, RF, VITD, ESR, TSH reflex FT4, CMP, FT4 #### [facility] [address] [place], [place] [id number] Glucose [Mass/Vol] 86 mg/dL Normal 65-99 [facility] Comment on above: Result Comment: For FASTING Glucose --- ADA reference ranges: Normal 65-99 mg/dl Prediabetes 100-125 Diabetes >/= 126 Performed By: #### C BCAD, RF, VITD, ESR, TSH reflex FT4, CMP, FT4 #### [facility] [address] [place], [place] [id number] Potassium [Moles/Vol] 4.1 mmol/L Normal 3.5-5.5 [facility] [employer] Comment on above: Performed By: #### C BCAD, RF, VITD, ESR, TSH reflex FT4, CMP, FT4 #### [facility] [address] [place], [place] [id number] Protein [Mass/Vol] 7.1 g/dL Normal 6.1-8.1 [place] [facility] [place] [employer] Comment on above: Performed By: #### C BCAD, RF, VITD, ESR, TSH reflex FT4, CMP, FT4 #### [facility] [address] [place], [place] [id number] Sodium [Moles/Vol] 140 mmol/L Normal 135-146 [facility]n [place] [employer] Comment on above: Performed By: #### C BCAD, RF, VITD, ESR, TSH reflex FT4, CMP, FT4 #### [facility] [address] [place], [place] [id number] TBIL <0.3 Normal [facility] [employer] Comment on above: Performed By: #### C BCAD, RF, VITD, ESR, TSH reflex FT4, CMP, FT4 #### [facility] [address] [place], [place] [id number] Urea nitrogen [Mass/Vol] 7 mg/dL Normal 7-25 [facility] [employer] Comment on above: Performed By: #### C BCAD, RF, VITD, ESR, TSH reflex FT4, CMP, FT4 #### [facility] [address] [place], [place] [id number] Free T4on 07-12-2021 Free T4 [Mass/Vol] 0.93 ng/dL Normal 0.80-1.80 [facility] rn [place] [employer] Comment on above: Performed By: #### C BCAD, RF, VITD, ESR, TSH reflex FT4, CMP, FT4 #### [facility] [address] [place], [place] [id number] Q - PASQUALE SCREEN IFA W/RFL TIT ER AND PATTERNon 07-12-2021 PASQUALE SCREEN, IFA Negative Normal NEGATIVE [facility] Specialist Comment on above: Order Comment: [facility] performed at: [facility], [address], [address] [facility], [place], [address], Stencil Sprayer: Leonard Turpin MD [facility] Date/Time: [facility] [...] AC-0: Negative International Consensus on PASQUALE Patterns (https://doi.org/10.1515/pmqe-5950-0615) For additional information, please refer to http://education.Conductrics/faq/LXW869 (This link is being provided for informational/ educational purposes only.) Performed By: #### 2 49 #### [facility] [address] [place] [address] RBC Sedimentation Rateon ESR (Bld) [Velocity] 8.00 mm/h Normal 0.00-20.00 [facility] [facility] Comment on above: Performed By: #### C BCAD, RF, VITD, ESR, TSH reflex FT4, CMP, FT4 #### [facility] [address] [place], [place] [id number] Rheumatoid Factoron 07-13-19 22 RF <10 Normal [facility] Comment on above: Performed By: #### C BCAD, RF, VITD, ESR, TSH reflex FT4, CMP, FT4 #### [facility] [address] [place], [place] [id number] TSH w/ Reflex to Free T4on 0 07-12-2021 TSH 0.321 uIU/mL Low 0.400-4.500 [facility] [employer] Comment on above: Performed By: #### C BCAD, RF, VITD, ESR, TSH reflex FT4, CMP, FT4 #### [facility] [address] [place], [place] [id number] Vitamin D 25-OHon 07-12-2021 VIT D 25 OH 19 ng/ml Low >29 [facility] [employer] Comment on above: Result Comment: Ade min D Status Deficiency <20 ng/mL Insufficiency 20-29 ng/mL Optimal 30-100 ng/mL Possible Toxicity >=150 ng/mL Performed By: #### C BCAD, RF, VITD, ESR, TSH reflex FT4, CMP, FT4 #### [facility] [address] [place], [place] [id number] Comprehensive Metabolic Empo n 04-11-2021 Albumin [Mass/Vol] 4.6 g/dL Normal 3.2-5.5 [facility] Comment on above: Performed By: #### E BS CMP, EBS LIPID #### [facility] [address] [place] [id number] [place] Albumin/Globulin [Mass ratio] 1.9 {ratio} Normal [facility] Comment on above: Performed By: #### E BS CMP, EBS LIPID #### [facility] [address] [place] [address] [place] ALP [Catalytic activity/Vol] 43 U/L Normal 32-92 [facility] Comment on above: Performed By: #### E BS CMP, EBS LIPID #### [facility] [address] [place] [address] [place] ALT [Catalytic activity/Vol] 17 U/L Normal 10-60 [facility] Comment on above: Performed By: #### E BS CMP, EBS LIPID #### [facility] [address] [place] [address] [place] AST [Catalytic activity/Vol] 20 U/L Normal 10-42 [facility] Comment on above: Performed By: #### E BS CMP, EBS LIPID #### [facility] [address] [place] [address] [place] Bilirubin [Mass/Vol] 1.1 mg/dL Normal 0.3-1.2 [facility] Comment on above: Performed By: #### E BS CMP, EBS LIPID #### [facility] [address] Calcium [Mass/Vol] 9.6 mg/dL Normal 8.2-10.2 [facility] Comment on above: Performed By: #### E BS CMP, EBS LIPID #### [facility] [address] [place] [address] [place] Chloride [Moles/Vol] 102 mmol/L Normal 95-114 [facility] Comment on above: Performed By: #### E BS CMP, EBS LIPID #### [facility] [address] CO2 [Moles/Vol] 21.4 mmol/L Low 22.0-30.0 [facility] Comment on above: Performed By: #### E BS CMP, EBS LIPID #### [address] Creatinine [Mass/Vol] 0.71 mg/dL Normal 0.44-1.03 [facility] Comment on above: Performed By: #### E BS CMP, EBS LIPID #### [address] Estimated GFR ( Michelle > 60 Normal [facility] Comment on above: Result Comment: GFR estimated reference range: According to KDOQI guidelines, <60 ml/min/1.73m2 is sufficient to diagnose a patient with chronic kidney disease. Performed By: #### E BS CMP, EBS LIPID #### [facility] [address] [place] [address] Estimated GFR (Non- Am > 60 Normal [facility] Comment on above: Performed By: #### E BS CMP, EBS LIPID #### [facility] [address] [place] [address] [place] Globulin (S) [Mass/Vol] 2.4 g/dL Normal [facility] Comment on above: Performed By: #### E BS CMP, EBS LIPID #### [facility] [address] [place] [address] [place] Glucose [Mass/Vol] 76 mg/dL Normal 70-100 [facility] Comment on above: Performed By: #### E BS CMP, EBS LIPID #### [facility] [address] [place] [id number] [place] Potassium [Moles/Vol] 3.3 mmol/L Low 3.5-5.1 [facility] Comment on above: Performed By: #### E BS CMP, EBS LIPID #### [facility] [address] [place] [id number] [facility] Protein [Mass/Vol] 7.0 g/dL Normal 6.1-7.9 [facility] Comment on above: Performed By: #### E BS CMP, EBS LIPID #### [facility] [address] [place] [id number] [facility] Sodium [Moles/Vol] 136 mmol/L Normal 136-146 [facility] Comment on above: Performed By: #### E BS CMP, EBS LIPID #### [facility] [address] [place] [id number] [place] Urea nitrogen [Mass/Vol] 5 mg/dL Low 9-23 [facility] Comment on above: Performed By: #### E BS CMP, EBS LIPID #### [facility] [address] [place] [id number] [facility] Lipid Profileon 04-11-2021 Cholesterol [Mass/Vol] 189 mg/dL Normal 140-200 [facility] Comment on above: Result Comment: Chol less than 200 mg/dl low risk Chol 201-239 mg/dl borderline risk Chol 240 mg/dl and greater high risk Performed By: #### E BS CMP, EBS LIPID #### [facility] [address] [place] [id number] [place] Cholesterol in HDL [Mass/Vol] 69 mg/dL Normal 35-85 [facility] Comment on above: Result Comment: HDL CHOL ATP-III CLASSIFICATION Cardiovascular Risk HDL > or equal to 60 mg/dL LOW HDL < 40 mg/dL HIGH Performed By: #### E BS CMP, EBS LIPID #### [facility] [address] [place] [address] [place] Cholesterol.total/C holesterol in HDL [Mass ratio] 2.7 {ratio} Normal <5.0 [facility] Comment on above: Result Comment: PERF ORMED BY: [place] [address] PATHOLOGIST CREATIVE COORDINATOR PAT PETERS M.D. Performed By: #### E BS CMP, EBS LIPID #### [facility] [address] LDL Cholesterol,Calcula shadi 107 mg/dL High 0-100 [facility] Comment on above: Result Comment: LDL ATP III CLASSIFICATION LDL less than 100 mg/dL Optimal LDL 100-129 mg/dL Near or above optimal LDL 130-159 mg/dL Borderline high LDL 160-189 mg/dL High LDL greater than 189 mg/dL Very high Performed By: #### E BS CMP, EBS LIPID #### [address] Triglyceride w/Reflex 64 mg/dL Normal 35-149 [facility] Comment on above: Result Comment: TRIG ATP III CLASSIFICATION TRIG less than 150 mg/dL Normal TRIG 150-199 mg/dL Borderline high TRIG 200-500 mg/dL High TRIG greater than 500 mg/dL Very high Standard traceable to the Center for Disease Conrtrol and Prevention (CDC) test method. Performed By: #### E BS CMP, EBS LIPID #### [facility] [address] [place] [address] VLDL CHOLESTEROL 12 mg/dL Normal [facility] Comment on above: Performed By: #### E BS CMP, EBS LIPID #### [facility] [address] [place] [address] Covid-19 PCR (CVDTBH)on SARS-CoV-2 (COVID-19) RNA ERIC+probe Ql (Unsp spec) Detected Critically abnormal NOT DETECTED [facility] Comment on above: Result Comment: This test is not yet approved or cleared by the [place] FDA. When there are no FDA-approved or cleared tests available, and other criteria are met, FDA can make tests available under an emergency access mechanism called an Emergency Use Authorization (EUA). The EUA for this test is supported by the Leather Grainer of Health and Human Service's (HHS's) declaration [...] used). Performed By: #### C VDTBH #### [facility] [address] [place] [address] Dr. Sierra Almonte CHLAMYDIA/GONOCOCCUS ERIC (SW AB/URINE/PAPon 12-14-2020 Chlamydia trachomatis, ERIC Negative Normal Negative [facility] Comment on above: Performed By: #### C T/NGNA #### [facility] [address] [place] [address] Dr. Sierra Almonte Neisseria gonorrhoeae, ERIC Negative Normal Negative [facility] Comment on above: Performed By: #### C T/NGNA #### [facility] [address] [place] [address] Dr. Sierra Almonte VAGINITIS/VAGINOSIS DNA PROB Andrew 12-11-2020 Loc species Negative Normal Negative [facility] Comment on above: Performed By: #### V AGINT #### [facility] [address] [place] [address] Dr. Sierra Almonte Gardnerella vaginalis Positive Abnormal Negative [facility] Comment on above: Performed By: #### V AGINT #### [facility] [address] [place] [address] Dr. Sierra Almonte Trichomonas vaginalis Negative Normal Negative [facility] Comment on above: Performed By: #### V AGINT #### [facility] [address] [place] [address] Dr. Sierra Almonte Vital Signs Date Time Vital Sign Value Performing Clinician Faci lity 04-08-2024 11:58-0500 Body mass index (BMI) [Ratio] 28.48 kg/m2 [employer] Work Phone: [facility] 04-08-2024 11:58-0500 Body weight 72.94 kg Raghavendra Christina DO Work Phone: [facility] 04-08-2024 11:58-0500 Diastolic blood pressure 74 mm[Hg] Raghavendra Christina DO Work Phone: [facility] 04-08-2024 11:58-0500 Systolic blood pressure 110 mm[Hg] Raghavendra Christina DO Work Phone: [facility] 04-02-2024 11:03-0500 Body mass index (BMI) [Ratio] 27.99 kg/m2 Teresa Jo Ann-Nossek BOILER ROOM HELPER-DRILL PRESS SET UP OPERATOR Work Phone: [facility] 04-02-2024 11:03-0500 Body weight 71.67 kg Teresa Jo Ann-Nossek BOILER ROOM HELPER-DRILL PRESS SET UP OPERATOR Work Phone: [facility] 04-02-2024 11:03-0500 Diastolic blood pressure 72 mm[Hg] Teresa Jo Ann-Nossek BOILER ROOM HELPER-DRILL PRESS SET UP OPERATOR Work Phone: [facility] 04-02-2024 11:03-0500 Heart rate 105 /min Teresa Jo Ann-Nossek BOILER ROOM HELPER-DRILL PRESS SET UP OPERATOR Work Phone: [facility] 04-02-2024 11:03-0500 Systolic blood pressure 122 mm[Hg] Teresa Jo Ann-Nossek BOILER ROOM HELPER-DRILL PRESS SET UP OPERATOR Work Phone: [facility] 03-25-2024 10:19-0500 Body mass index (BMI) [Ratio] 27.63 kg/m2 Raghavendra Christina DO Work Phone: [facility] 03-25-2024 10:19-0500 Body weight 70.76 kg Raghavendra Christina DO Work Phone: [facility] 03-25-2024 10:19-0500 Diastolic blood pressure 68 mm[Hg] Raghavendra Christina DO Work Phone: [facility] 03-25-2024 10:19-0500 Systolic blood pressure 100 mm[Hg] Raghavendra Christina DO Work Phone: [facility] 03-11-2024 10:10-0500 Body mass index (BMI) [Ratio] 27.95 kg/m2 Raghavendra Christina DO Work Phone: [facility] 03-11-2024 10:10-0500 Body weight 71.58 kg Raghavendra Christina DO Work Phone: [facility] 03-11-2024 10:10-0500 Diastolic blood pressure 68 mm[Hg] Raghavendra Christina DO Work Phone: [facility] 03-11-2024 10:10-0500 Systolic blood pressure 104 mm[Hg] Raghavendra Christina DO Work Phone: [facility] 02-13-2024 13:14-0500 Body height 160 cm Emerita Gillmor SCHEDULER MAINTENANCE Work Phone: [facility] 02-13-2024 13:14-0500 Body mass index (BMI) [Ratio] 26.93 kg/m2 Emerita Gillmor SCHEDULER MAINTENANCE Work Phone: [facility] 02-13-2024 13:14-0500 Body weight 68.95 kg Emerita Gillmor SCHEDULER MAINTENANCE Work Phone: [facility] 02-13-2024 13:14-0500 Diastolic blood pressure 72 mm[Hg] Emerita Gillmor SCHEDULER MAINTENANCE Work Phone: [facility] 02-13-2024 13:14-0500 Heart rate 109 /min Emerita Gillmor SCHEDULER MAINTENANCE Work Phone: [facility] 02-13-2024 13:14-0500 Systolic blood pressure 119 mm[Hg] Emerita Gillmor SCHEDULER MAINTENANCE Work Phone: [facility] 02-11-2024 10:19-0500 Body mass index (BMI) [Ratio] 27.3 kg/m2 Raghavendra Christina DO Work Phone: [facility] 02-11-2024 10:19-0500 Body weight 71.58 kg Raghavendra Christina DO Work Phone: [facility] 02-11-2024 10:19-0500 Diastolic blood pressure 70 mm[Hg] Raghavendra Christina DO Work Phone: [facility] 02-11-2024 10:19-0500 Systolic blood pressure 120 mm[Hg] Raghavendra Christina DO Work Phone: [facility] 01-10-2024 10:44-0500 Body mass index (BMI) [Ratio] 26.3 kg/m2 Raghavendra Christina DO Work Phone: [facility] 01-10-2024 10:44-0500 Body weight 68.95 kg Raghavendra Christina DO Work Phone: [facility] 01-10-2024 10:44-0500 Diastolic blood pressure 74 mm[Hg] Raghavendra Christina DO Work Phone: [facility] 01-10-2024 10:44-0500 Systolic blood pressure 116 mm[Hg] Raghavendra Christina DO Work Phone: [facility] 01-01-2024 11:40-0500 Body mass index (BMI) [Ratio] 25.78 kg/m2 Teresa Jo Ann-Nossek BOILER ROOM HELPER-DRILL PRESS SET UP OPERATOR Work Phone: [facility] 01-01-2024 11:40-0500 Body weight 67.59 kg Teresa Jo Ann-Nossek BOILER ROOM HELPER-DRILL PRESS SET UP OPERATOR Work Phone: [facility] 01-01-2024 11:40-0500 Diastolic blood pressure 82 mm[Hg] Teresa Jo Ann-Nossek BOILER ROOM HELPER-DRILL PRESS SET UP OPERATOR Work Phone: [facility] 01-01-2024 11:40-0500 Heart rate 99 /min Teresa Jo Ann-Nossek BOILER ROOM HELPER-DRILL PRESS SET UP OPERATOR Work Phone: [facility] 01-01-2024 11:40-0500 Systolic blood pressure 100 mm[Hg] Teresa Jo Ann-Nossek BOILER ROOM HELPER-DRILL PRESS SET UP OPERATOR Work Phone: [facility] 11-28-2023 14:53-0400 Body mass index (BMI) [Ratio] 25.57 kg/m2 Raghavendra Christina DO Work Phone: [facility] 11-28-2023 14:53-0400 Body weight 67.04 kg Raghavendra Christina DO Work Phone: [facility] 11-28-2023 14:53-0400 Diastolic blood pressure 74 mm[Hg] Raghavendra Christina DO Work Phone: [facility] 11-28-2023 14:53-0400 Systolic blood pressure 114 mm[Hg] Raghavendra Christina DO Work Phone: [facility] 11-01-2023 15:16-0400 Body mass index (BMI) [Ratio] 25.6 kg/m2 [facility] Nurse [facility] 11-01-2023 15:16-0400 Body weight 67.13 kg [facility] Nurse [facility] 10-18-2023 11:32-0400 Body height 161.9 cm Ysabel Cabral MD Work Phone: [facility] 10-18-2023 11:32-0400 Body mass index (BMI) [Ratio] 26.05 kg/m2 Ysabel Cabral MD Work Phone: [facility] 10-18-2023 11:32-0400 Body weight 68.31 kg Ysabel Cabral MD Work Phone: [facility] 10-18-2023 11:32-0400 Diastolic blood pressure 76 mm[Hg] Ysabel Cabral MD Work Phone: [facility] 10-18-2023 11:32-0400 Heart rate 92 /min Ysabel Cabral MD Work Phone: [facility] 10-18-2023 11:32-0400 Respiratory rate 20 /min Ysabel Cabral MD Work Phone: [facility] 10-18-2023 11:32-0400 Systolic blood pressure 122 mm[Hg] Ysabel Cabral MD Work Phone: [facility] Healthcare Encounters Encounter Date Encounter Type Care Provider Facility Start: 04-15-2024 End: 04-15-2024 Clinisync Result Encounter Generic External Data Provider [facility] External Department Unsolicited Start: 04-15-2024 End: 04-15-2024 [...] 04-02-2024 Bamboo flowsheet Teresa Cheri Jo Ann-Nossek BOILER ROOM HELPER-DRILL PRESS SET UP OPERATOR Work Phone: [facility] Start: 04-02-2024 End: 04-02-2024 Bamboo flowsheet Teresa Cheri Jo Ann-Nossek BOILER ROOM HELPER-DRILL PRESS SET UP OPERATOR Work Phone: [facility] Start: 04-02-2024 End: 04-02-2024 ambulatory TERESA Cheri JO ANN-NOSSEK Not Available Start: 04-02-2024 End: 04-02-2024 Office outpatient visit 25 minutes Teresa Cheri Jo Ann-Nossek BOILER ROOM HELPER-DRILL PRESS SET UP OPERATOR Work Phone: [facility] Comment on [...] 02-13-2024 End: 02-13-2024 Bamboo flowsheet Emerita Warren SCHEDULER MAINTENANCE Work Phone: [facility] [place] [facility] Start: 02-13-2024 End: 02-13-2024 Bamboo flowsheet Emerita Warren SCHEDULER MAINTENANCE Work Phone: [facility] [place] [facility] Start: 02-13-2024 End: 02-13-2024 ambulatory EMERITA BER Not Available Start: 02-13-2024 End: 02-13-2024 Office outpatient visit 15 minutes Emerita Warren SCHEDULER MAINTENANCE Work Phone: [facility] Comment on above: 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) (Primary Dx); , unspecified gestational age; Primary insomnia; Generalized anxiety disorder (CMS/HCC) Start: 02-11-2024 End: 02-11-2024 Bamboo flowsheet Raghavendra Christina DO Work Phone: [facility] Start: 02-11-2024 End: 02-11-2024 Bamboo flowsheet Raghavendra Christina DO Work Phone: [facility] Start: 02-11-2024 End: 02-11-2024 ambulatory RAGHAVENDRA CHRISTINA Not Available Start: 02-11-2024 End: 02-11-2024 Office outpatient visit 15 minutes Raghavendra Christina DO Work Phone: [facility] Comment on above: 23 weeks gestation o f ; Second trimester ; Diabetes mellitus screening Start: 01-10-2024 End: 01-10-2024 Bamboo flowsheet Raghavendra Christina DO Work Phone: [facility] Start: 01-10-2024 End: 01-18-2024 Bamboo [...] 01-01-2024 Bamboo flowsheet Teresa Alonzo Jo Ann-Nossek BOILER ROOM HELPER-[employer] Work Phone: [facility] Start: 01-01-2024 End: 01-01-2024 Bamboo flowsheet Teresa Cheri Jo Ann-Nossek BOILER ROOM HELPER[employer] Work Phone: [facility] Start: 01-01-2024 End: 01-01-2024 ambulatory TERESA Cheri JO ANN-NOSSEK Not Available Start: 01-01-2024 End: 01-01-2024 Office outpatient visit 25 minutes Teresa Cheri Jo Ann-Nossek BOILER ROOM HELPER[employer] Work Phone: [facility] Comment on [...] Office outpatient visit 15 minutes Teresa Ornelas BOILER ROOM HELPER-DRILL PRESS SET UP OPERATOR Work Phone: [facility] Comment on above: Attention deficit hy peractivity [...] ambulatory DR TALITA DODSON Facility:H1 Start: 05-11-2021 ([facility] C Vac) [facility] Co vid Vaccine Vicky Joe [facility] Start: 05-11-2021 End: 05-11-2021 ambulatory Vicky Joe Other [facility] [employer] Other Start: 03-01-2021 End: 03-01-2021 ambulatory CHLOE [...] Data Provider Start: 03-07-2024 [facility] UA (CLEAN/CATCH) DRILL PRESS SET UP OPERATOR/MICRO IF IND. Raghavendra Christina DO Work [...] RHF, URCA #### [facility] [address] [facility], [address] Plan of Treatment Date Care Activity Detail Author Start: 01-09-2027 Screening for malign ant neoplasm of cervix [facility] Start: 06-17-2024 End: 06-17-2024 Patient encounter procedure 06/17/2024 11:30 AM EDT Office Visit [facility] [address] [facility] [address] [place] [address] Teresa Ornelas, BOILER ROOM HELPER-DRILL PRESS SET UP OPERATOR [address] [facility] [address] [place] [address] [facility] Start: 05-06-2024 End: 05-06-2024 Patient encounter procedure [facility] [place] [facility] Start: 04-23-2024 End: 04-23-2024 Patient encounter procedure 04/23/2024 11:10 AM EST Routine [facility] [address] [address] Raghavendra Vasquez, DO [address] [place], [place] [id number] [facility] Start: 04-08-2024 End: 10-06-2024 [...] AM EST Routine [facility] [address] [address] [place] [id number] Raghavendra Vasquez, DO [address] [place] [address] [facility] Start: 04-02-2024 End: 04-02-2024 Patient encounter procedure 04/02/2024 11:00 AM EST Office Visit [facility] [address] [facility] [address] [place] [address] Teresa Ornelas, BOILER ROOM HELPER-DRILL PRESS SET UP OPERATOR [address] [facility] [address] [place] [address] [facility] Start: 03-25-2024 End: 03-25-2024 Patient encounter procedure 03/25/2024 10:00 AM EST Routine [facility] [address] [place] [id number] Raghavendra Vasquez, DO [address] [facility] [place] [address] [facility] Start: 03-11-2024 End: 03-11-2024 Patient encounter procedure 03/11/2024 9:40 AM EST Routine [facility] [address] [facility] [place] [id number] Raghavendra Vasquez, DO [address] [place] [address] [facility] Start: 02-13-2024 End: 02-13-2024 Patient encounter procedure 02/13/2024 1:00 PM EST Office Visit [facility] [place] [facility] [address] [place] [phone] Emerita Warren, SCHEDULER MAINTENANCE [address] [place], [place] [address] [place] [address] Start: 02-11-2024 End: 02-10-2025 CBC panel - Blood by Automated count CBC Lab Routine Diabetes mellitus screening Expected: 02/11/2024 (Approximate), Expires: 02/10/2025 [facility] Work Phone: Comment on above: Expected: 02/11/2024 (Approximate), Expires: 02/10/2025 Start: 02-11-2024 End: 02-10-2025 Measurement of glucose 1 hour after glucose challenge for glucose tolerance test Glucose tolerance, 1 hour Lab Routine Diabetes mellitus screening Expected: 02/11/2024 (Approximate), Expires: 02/10/2025 [facility] Comment on above: Expected: 02/11/2024 (Approximate), Expires: 02/10/2025 Start: 02-11-2024 End: 02-10-2025 US for US OB SCAN FOR GROWTH Imaging Routine 23 weeks gestation of Diabetes mellitus screening Expected: 02/11/2024 (Approximate), Expires: 02/10/2025 [facility] Comment on above: Expected: 02/11/2024 (Approximate), Expires: 02/10/2025 Start: 02-11-2024 End: 02-11-2024 Patient encounter procedure 02/11/2024 9:40 AM EST Routine [facility] [address] [phone] Raghavendra Vasquez, DO [address] [place] [address] [facility] Start: 01-28-2024 End: 01-28-2024 Professional / ancillary services management 01/28/2024 11:00 AM EST Ancillary Procedure [facility] [address] [place] [phone] [facility] Start: 01-10-2024 End: 07-09-2024 [...] AM EST Routine [facility] [address] [facility] [place] [address] Raghavendra Vasquez, DO [address] [place] [address] [facility] Start: 01-01-2024 End: 01-01-2024 Patient encounter procedure 01/01/2024 11:30 AM EST Office Visit [facility] [address] [facility] [address] [place] [address] Teresa Ornelas, BOILER ROOM HELPER-[facility] [address] [facility] [address] [place] [address] [facility] Start: 12-18-2023 End: 12-18-2023 Patient encounter procedure 12/18/2023 5:30 PM EDT Office Visit [facility] [place] [address] [facility] [place] [address] Evonne Childress, DO [address] [place] [address] [facility] [place] [facility] Start: 11-28-2023 End: 11-28-2023 Patient encounter procedure 11/28/2023 2:20 PM EDT Routine [facility] [address] [facility] [place] [address] Raghavendra Vasquez, DO [address] [facility] [place] [address] [facility] Start: 11-27-2023 End: 11-27-2023 Patient encounter procedure 11/27/2023 11:00 AM EDT Office Visit [facility] [address] [facility] [address] [place] [address] Teresa Ornelas, BOILER ROOM HELPER-DRILL PRESS SET UP OPERATOR [address] [facility] [facility] [address] [place] [address] [facility] Start: 11-01-2023 End: 10-31-2024 ABO/Rh ABO/Rh Lab Routine Missed menses Expected: 11/01/2023 (Approximate), Expires: 10/31/2024 [facility] Comment on above: Expected: 11/01/2023 (Approximate), Expires: 10/31/2024 Start: 11-01-2023 End: 11-01-2023 ambulatory 11/01/2023 2:00 PM EDT Initial [facility] [address] [address] [facility] Start: 11-01-2023 End: 10-31-2024 Blood type [...] 11/01/2023 1:30 PM EDT Ancillary Procedure [facility] OB [address] [place] [address] [facility] Start: 10-28-2023 Influenza vaccination Influenza Vacc ine (#1) [facility] Start: 10-18-2023 End: 10-18-2023 Patient encounter procedure 10/18/2023 11:40 AM EDT Office Visit [facility] [address] [place] [id number] Ysabel Cabral MD [address] [place], [place] [id number] [facility] Start: 10-18-2023 End: 10-18-2023 Patient encounter procedure 10/18/2023 10:30 AM EDT Procedure Visit [facility] [address] [place] [address] Evonne Childress DO [address] [place], [place] [id number] Arrived [facility] Comment on above: Arrived Start: 09-10-2017 Screening for malign ant neoplasm of cervix [facility] Start: 09-10-2008 Screening for malign ant neoplasm of cervix Pap Smear [facility] Bacteria identified in Urine by Culture Urine culture Microbiology Routine Missed menses Ordered: 11/01/2023 [facility] Comment on above: Ordered: 11/01/2023 CBC W Auto Different ial panel - Blood CBC and differential Lab Routine Missed menses Ordered: 11/01/2023 [facility] Comment on above: Ordered: 11/01/2023 CHLAMYDIA TRACHOMATI S (GENITO/STI) CHLAMYDIA TRACHOMATIS (GENITO/STI) Lab Routine STD exposure Ordered: 01/10/2024 [facility] Comment on above: Ordered: 01/10/2024 Cytology Cervical or vaginal smear or scraping study Pap Smear Pathology and Cytology Routine Well woman exam with routine gynecological exam Ordered: 01/10/2024 [facility] Comment on above: Ordered: 01/10/2024 Hemoglobin A1c/Hemoglobin.total in Blood Hemoglobin A1c Lab Routine Missed menses Ordered: 11/01/2023 [facility] Comment on above: Ordered: 11/01/2023 Hepatitis B virus surface Ag [Presence] in Serum or Plasma by Immunoassay Hepatitis B surface antigen Lab Routine Missed menses Ordered: 11/01/2023 [facility] Comment on above: Ordered: 11/01/2023 Hepatitis C virus Ab [Presence] in Serum or Plasma by Immunoassay Hepatitis C antibody Lab Routine Missed menses Ordered: 11/01/2023 [facility] Comment on above: Ordered: 11/01/2023 HIV-1/HIV-2 antigen/antibody combination immunoassay HIV-1 and HIV-2 antibodies Lab Routine Missed menses Ordered: 11/01/2023 [facility] Comment on above: Ordered: 11/01/2023 Human papilloma viru s DNA [Presence] in Unspecified specimen by Probe with amplification HPV DNA probe, amplified Microbiology Routine Well woman exam with routine gynecological exam Ordered: 01/10/2024 [facility] Comment on above: Ordered: 01/10/2024 Neisseria gonorrhoea e DNA [Presence] in Unspecified specimen by ERIC with probe detection Neisseria gonorrhea DNA probe, direct Lab Routine STD exposure Ordered: 01/10/2024 [facility] Comment on above: Ordered: 01/10/2024 Reagin Ab [Presence] in Serum by RPR RPR Lab Routine Missed menses Ordered: 11/01/2023 [facility] Comment on above: Ordered: 11/01/2023 Rubella antibody, IgG Rubella an tibody, IgG Lab Routine Missed menses Ordered: 11/01/2023 [facility] Comment on above: Ordered: 11/01/2023 SURESWAB(R) ADVANCED VAGINITIS PLUS, TMA SURESWAB(R) ADVANCED VAGINITIS PLUS, TMA Pathology and Cytology Routine Vaginal discharge Ordered: 01/10/2024 [facility] Work Phone: Comment on above: Ordered: 01/10/2024 Immunizations Immunization Date Immunization Notes Care Provider Corrina hanson 05-11-2021 COVID-19 En Joe Other [employer] Other 10-02-2016 influenza, injectabl e, quadrivalent, preservative free Evonne Childress DO Work Phone: [facility] 10-02-2016 influenza virus vaccine, unspecified formulation Evonne Jaydon DO Work Phone: [facility] 10-13-2015 influenza, injectabl e, quadrivalent, preservative free Evonne Jaydon DO Work Phone: [facility] 12-02-2014 influenza, seasonal, injectable, preservative free Evonne Jaydon DO Work Phone: [facility] Healthcare Payers Date Payer Category Payer Medicaid [employer] [place] [id number] 2021-Present [address] [place] [id number] 2021 Medicaid (Managed Care) [facility] MEDICAID [id number] 1987 Unknown [id number]. 59 1987 Unknown [id number] 2.840.1.057404.3.579.2. 593 1987 Unknown [id number] 2.840.1.108709.3.579.2. 593 1987 Unknown [id number] 2.840.1.927105.3.579.2. 1259 1987 Unknown [id number] 2.840.1.200287.3.579.2. 1259 1987 Unknown [id number] 2.840.1.579623.3.579.2. 1258 1987 Unknown [id number] 2.16.840.1.662718.3.579.2. 1258 1987 Unknown [id number] 2.16.840.1.297731.3.579.2. 1258 1987 Unknown [id number] 2..840.1.654872.3.579.2. 1258 1987 Unknown [id number] 2..840.1.411644.3.579.2. 1258 1987 Unknown [id number] 2..840.1.533038.3.579.2. 1258 1987 Unknown [id number] 2..840.1.264936.3.579.2. 1258 1987 Unknown [id number] 2.840.1.680996.3.579.2. 1258 1987 Unknown [id number] 2..840.1.253172.3.579.2. 1258 1987 Unknown [id number] 2.840.1.529210.3.579.2. 1258 1987 Unknown [id number] 2.840.1.956666.3.579.2. 1258 1987 Unknown [id number] 2.840.1.961622.3.579.2. 1258 1987 Unknown [id number] 2..840.1.219113.3.579.2. 1258 1987 Unknown [id number] 2..840.1.669692.3.579.2. 1258 1987 Unknown [id number] 2..840.1.459863.3.579.2. 1258 1987 Unknown [id number] 2.16.840.1.091918.3.579.2. 1258 1987 Unknown [id number] 2.16.840.1.156103.3.579.2. 1259 1987 Unknown [id number] 2.16.840.1.443569.3.579.2. 9 1987 Unknown [id number] 2.16.840.1.066415.3.579.2. 9 1987 Unknown [id number] 2.16.840.1.251099.3.579.2. 1258 1987 Unknown [id number] 2.16.840.1.531380.3.579.2. 1258 1987 Unknown [id number] 2.16.840.1.426082.3.579.2. 1259 1959 Unknown [id number] 2.16.840.1.419606.19 Social History Date Type Detail Facility Unknown if ever smoked [employer] Other Start: 2022 End: 01-01-2024 Sex Assigned At [employer] Other Start: 12-22-2022 [facility] Start: 12-22-2022 [...] or 2 glasses each evening with dinner [facility] Clinical Notes 05-11-2021 to 04-08-2024 Shelli Toño, DANCE INSTRUCTOR - 04/08/2024 11:40 AM America Ornelas, BOILER ROOM HELPER-[employer] SET UP OPERATOR - 04/02/2024 11:00 AM Christine Lundberg, DANCE INSTRUCTOR - 03/25/2024 10:00 AM Christine Lundberg, DANCE INSTRUCTOR - 03/11/2024 9:40 AM EST Note Date [...] Attention deficit hyperactivity disorder (ADHD), combined type ([facility]) 07/04/2022 Episodic mood disorder ([facility]) 07/04/2022 Generalized anxiety disorder ([facility]) 07/04/2022 Panic disorder ([facility]) 07/04/2022 Acquired scoliosis 09/09/2016 Allergic rhinitis 10/16/2019 Anxiety 01/31/2020 Asthma ([facility]) 12/31/2014 Chronic fatigue syndrome 07/03/2016 Chronic gastritis without bleeding 12/28/2022 Irritable bowel syndrome 07/03/2016 Migraine without aura and without status migrainosus, not intractable ([facility]/HCC) 09/19/2017 Mild intermittent asthma ([facility]/HCC) 02/28/2021 Primary localized osteoarthrosis of ankle and foot 03/13/2019 Vitamin D deficiency 12/28/2022 Headache 06/28/2023 Inadequate sleep hygiene 06/28/2023 Migraine ([facility]/HCC) 06/28/2023 Tenosynovitis of foot 06/28/2023 Nausea and vomiting 06/28/2023 Common migraine with intractable migraine ([facility]/HCC) 06/28/2023 Pain in limb 06/28/2023 Chronic tension-type headache, not intractable 06/28/2023 Sleep disturbance 06/28/2023 Insomnia, unspecified 06/28/2023 Other problems related to lifestyle 06/28/2023 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 08/10/2023 Resolved Ambulatory Problems Diagnosis Date Noted No Resolved Ambulatory Problems Past Medical History: Diagnosis Date Adenoma of left breast ADHD (attention deficit hyperactivity disorder) ([facility]) Anemia Back pain Common migraine ([facility]/HCC) 08/17/2015 Depression ([facility]) H/O colonoscopy H/O umbilical hernia repair Insomnia 06/25/2017 Migraines ([facility]) Nausea with vomiting 08/17/2015 Tendonitis of right hand Tension headache 08/17/2015 HISTORY PAST MEDICAL HISTORY SOCIAL HISTORY Past Medical History: Diagnosis Date Adenoma of left breast removed 2013 ADHD (attention deficit hyperactivity disorder) ([facility]) Anemia Anxiety Asthma ([facility]) Back pain Common migraine ([facility]) 08/17/2015 Depression ([facility]) H/O colonoscopy 2012 H/O umbilical hernia repair 2007 Headache 08/17/2015 Inadequate sleep hygiene 04/23/2018 Insomnia 06/25/2017 Migraine ([facility]/HCC) 03/22/2017 Migraines ([facility]) Nausea with vomiting 08/17/2015 Pain [...] nursing note reviewed. Exam conducted with a word processing machine operator present. Vitals: Estimated body mass index [...] Veda Machado PA-C documented in this encounter [facility] 04-02-2024 History of Present illness Narrative Images from the original note were not included. Patient reports not starting the Zoloft after last visit. Tiki Moeller is a 38 y.o. female presents for Medication Management. HPI: Patient is here for medication follow up. Patient is currently 34weeks decided not to take zoloft. Got fired from [employer] due to falling asleep. She was feeling [...] removed 2013 ADHD (attention deficit hyperactivity disorder) ([facility]) Anemia Anxiety Asthma (CMS/HCC) Back [...] check for post documented in this encounter [facility] 03-25-2024 History of Present illness Narrative Reason [...] Att[place] deficit [place] ([place]), combined type [place] 07/04/2022 Episodic mood disorder ([facility]) 07/04/2022 Generalized anxiety disorder [place] 07/04/2022 Panic disorder ([facility]) 07/04/2022 Acquired scoliosis 09/09/2016 Allergic rhinitis 10/16/2019 Anxiety 01/31/2020 Asthma ([facility]) 12/31/2014 Chronic fatigue syndrome 07/03/2016 Chronic gastritis without bleeding 12/28/2022 Irritable bowel syndrome 07/03/2016 Migraine without aura and without status migrainosus, not intractable ([facility] 09/19/2017 Mild intermittent asthma [place] 02/28/2021 Primary localized osteoarthrosis of ankle and foot 03/13/2019 Vitamin D deficiency 12/28/2022 Headache 06/28/2023 Inadequate sleep hygiene 06/28/2023 Migraine ([facility]) 06/28/2023 Tenosynovitis of foot 06/28/2023 Nausea and vomiting 06/28/2023 Common migraine with intractable migraine ([facility]) 06/28/2023 Pain in limb 06/28/2023 Chronic tension-type headache, not intractable 06/28/2023 Sleep disturbance 06/28/2023 Insomnia, unspecified 06/28/2023 Other problems related to lifestyle 06/28/2023 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 08/10/2023 Resolved Ambulatory Problems Diagnosis Date Noted No Resolved Ambulatory Problems Past Medical History: Diagnosis Date Adenoma of left breast ADHD (attention deficit hyperactivity disorder) [place] [place] Anemia Back pain Common migraine ([facility]) 08/17/2015 Depression [place] H/O colonoscopy H/O umbilical hernia repair Insomnia 06/25/2017 Migraines ([facility]) Nausea with vomiting 08/17/2015 Tendonitis of right hand Tension headache 08/17/2015 HISTORY PAST MEDICAL HISTORY SOCIAL HISTORY Past Medical History: Diagnosis Date Adenoma of left breast removed 2013 ADHD (attention deficit hyperactivity disorder) ([facility]) Anemia Anxiety Asthma ([facility]) Back pain Common migraine ([facility]) 08/17/2015 Depression ([facility]) H/O colonoscopy 2012 H/O umbilical hernia repair 2008 Headache 08/17/2015 Inadequate sleep hygiene 04/23/2018 Insomnia 06/25/2017 Migraine ([facility]/HCC) 03/22/2017 Migraines ([facility]) Nausea with vomiting 08/17/2015 Pain [...] nursing note reviewed. Exam conducted with a word processing machine operator present. Vitals: Estimated body mass index [...] Raghavendra Vasquez DO documented in this encounter [facility] 03-11-2024 History of Present illness Narrative Reason [...] Attention deficit hyperactivity disorder (ADHD), combined type [place] 07/04/2022 Episodic mood disorder [place] 07/04/2022 Generalized anxiety disorder [place] 07/04/2022 Panic disorder ([facility] 07/04/2022 Acquired scoliosis 09/09/2016 Allergic rhinitis 10/16/2019 Anxiety 01/31/2020 Asthma ([facility] 12/31/2014 Chronic fatigue syndrome 07/03/2016 Chronic gastritis without bleeding 12/28/2022 Irritable bowel syndrome 07/03/2016 Migraine without aura and without status migrainosus, not intractable [place] 09/19/2017 Mild intermittent asthma ([facility] 02/28/2021 Primary localized osteoarthrosis of ankle and foot 03/13/2019 Vitamin D deficiency 12/28/2022 Headache 06/28/2023 Inadequate sleep hygiene 06/28/2023 Migraine ([facility] 06/28/2023 Tenosynovitis of foot 06/28/2023 Nausea and vomiting 06/28/2023 Common migraine with intractable migraine ([facility] 06/28/2023 Pain in limb 06/28/2023 Chronic tension-type headache, not intractable 06/28/2023 Sleep disturbance 06/28/2023 Insomnia, unspecified 06/28/2023 Other problems related to lifestyle 06/28/2023 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 08/10/2023 Resolved Ambulatory Problems Diagnosis Date Noted No Resolved Ambulatory Problems Past Medical History: Diagnosis Date Adenoma of left breast ADHD (attention deficit hyperactivity disorder) [place] [place] Anemia Back pain Common migraine [place] 08/17/2015 Depression [place] H/O colonoscopy H/O umbilical hernia repair Insomnia 06/25/2017 Migraines ([facility] Nausea with vomiting 08/17/2015 Tendonitis of right hand Tension headache 08/17/2015 HISTORY PAST MEDICAL HISTORY SOCIAL HISTORY Past Medical History: Diagnosis Date Adenoma of left breast removed 2013 ADHD (attention deficit hyperactivity disorder) ([facility]) Anemia Anxiety Asthma ([facility]) Back pain Common migraine ([facility]) 08/17/2015 Depression ([facility]/HCC) H/O colonoscopy 2012 H/O umbilical hernia repair 2008 Headache 08/17/2015 Inadequate sleep hygiene 04/23/2018 Insomnia 06/25/2017 Migraine ([facility]) 03/22/2017 Migraines ([facility]) Nausea with vomiting 08/17/2015 Pain [...] nursing note reviewed. Exam conducted with a word processing machine operator present. Vitals: Estimated body mass index [...] Raghavendra Vasquez DO documented in this encounter [facility] 02-11-2024 History of Present illness Narrative Reason [...] Attention deficit hyperactivity disorder (ADHD), combined type [place] 07/04/2022 Episodic mood disorder ([facility]) 07/04/2022 Generalized anxiety disorder ([facility]) 07/04/2022 Panic disorder ([facility] 07/04/2022 Acquired scoliosis 09/09/2016 Allergic rhinitis 10/16/2019 Anxiety 01/31/2020 Asthma ([facility]) 12/31/2014 Chronic fatigue syndrome 07/03/2016 Chronic gastritis without bleeding 12/28/2022 Irritable bowel syndrome 07/03/2016 Migraine without aura and without status migrainosus, not intractable [place] 09/19/2017 Mild intermittent asthma ([facility]) 02/28/2021 Primary localized osteoarthrosis of ankle and foot 03/13/2019 Vitamin D deficiency 12/28/2022 Headache 06/28/2023 Inadequate sleep hygiene 06/28/2023 Migraine ([facility]) 06/28/2023 Tenosynovitis of foot 06/28/2023 Nausea and vomiting 06/28/2023 Common migraine with intractable migraine ([facility]) 06/28/2023 Pain in limb 06/28/2023 Chronic tension-type headache, not intractable 06/28/2023 Sleep disturbance 06/28/2023 Insomnia, unspecified 06/28/2023 Other problems related to lifestyle 06/28/2023 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 08/10/2023 Resolved Ambulatory Problems Diagnosis Date Noted No Resolved Ambulatory Problems Past Medical History: Diagnosis Date Adenoma of left breast ADHD (attention deficit hyperactivity disorder) ([facility]) Anemia Back pain Common migraine ([facility]) 08/17/2015 Depression ([facility]) H/O colonoscopy H/O umbilical hernia repair Insomnia 06/25/2017 Migraines ([facility]) Nausea with vomiting 08/17/2015 Tendonitis of right hand Tension headache 08/17/2015 HISTORY PAST MEDICAL HISTORY SOCIAL HISTORY Past Medical History: Diagnosis Date Adenoma of left breast removed 2013 ADHD (attention deficit hyperactivity disorder) ([facility]) Anemia Anxiety Asthma ([facility]) Back pain Common migraine ([facility]) 08/17/2015 Depression ([facility]) H/O colonoscopy 2012 H/O umbilical hernia repair 2008 Headache 08/17/2015 Inadequate sleep hygiene 04/23/2018 Insomnia 06/25/2017 Migraine ([facility]) 03/22/2017 Migraines ([facility]) Nausea with vomiting 08/17/2015 Pain [...] Migraines Mother Idania Swartz Rheum arthritis Father [place] Moeller Depression Father Amandeepelva Moeller Alcohol abuse [...] nursing note reviewed. Exam conducted with a word processing machine operator present. Vitals: Estimated body mass index [...] Raghavendra Vasquez DO documented in this encounter [facility] 01-10-2024 History of Present illness Narrative Reason [...] Attention deficit hyperactivity disorder (ADHD), combined type ([facility]) 07/04/2022 Episodic mood disorder ([facility]) 07/04/2022 Generalized anxiety disorder ([facility]) 07/04/2022 Panic disorder ([facility]) 07/04/2022 Acquired scoliosis 09/09/2016 Allergic rhinitis 10/16/2019 Anxiety 01/31/2020 Asthma ([facility]) 12/31/2014 Chronic fatigue syndrome 07/03/2016 Chronic gastritis without bleeding 12/28/2022 Irritable bowel syndrome 07/03/2016 Migraine without aura and without status migrainosus, not intractable ([facility]) 09/19/2017 Mild intermittent asthma ([facility]) 02/28/2021 Primary localized osteoarthrosis of ankle and foot 03/13/2019 Vitamin D deficiency 12/28/2022 Headache 06/28/2023 Inadequate sleep hygiene 06/28/2023 Migraine ([facility]) 06/28/2023 Tenosynovitis of foot 06/28/2023 Nausea and vomiting 06/28/2023 Common migraine with intractable migraine ([facility]) 06/28/2023 Pain in limb 06/28/2023 Chronic tension-type headache, not intractable 06/28/2023 Sleep disturbance 06/28/2023 Insomnia, unspecified 06/28/2023 Other problems related to lifestyle 06/28/2023 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 08/10/2023 Resolved Ambulatory Problems Diagnosis Date Noted No Resolved Ambulatory Problems Past Medical History: Diagnosis Date Adenoma of left breast ADHD ([facility] deficit hyperactivity disorder) [facility] [place]) Anemia Back pain Common migraine ([facility]/H[facility]) 08/17/2015 Depression ([facility]) H/O colonoscopy H/O umbilical hernia repair Insomnia 06/25/2017 Migraines ([facility]) Nausea with vomiting 08/17/2015 Tendonitis of right hand Tension headache 08/17/2015 HISTORY PAST MEDICAL HISTORY SOCIAL HISTORY Past Medical History: Diagnosis Date Adenoma of left breast removed 2013 ADHD (attention deficit hyperactivity disorder) ([facility]) Anemia Anxiety Asthma ([facility]) Back pain Common migraine ([facility]/HCC) 08/17/2015 Depression ([facility]) H/O colonoscopy 2012 H/O umbilical hernia repair 2008 Headache 08/17/2015 Inadequate sleep hygiene 04/23/2018 Insomnia 06/25/2017 Migraine (CMS/HCC) 03/22/2017 Migraines ([facility]) Nausea with vomiting 08/17/2015 Pain [...] nursing note reviewed. Exam conducted with a word processing machine operator present. Vitals: Estimated body mass index [...] Raghavendra Vasquez DO documented in this encounter [facility] 01-01-2024 History of Present illness Narrative Images [...] visit. 20 weeks. 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 Psychosocial stressors include . SUBJECTIVE: PAST MEDICAL HISTORY: Past Medical History: Diagnosis Date Adenoma of left breast removed 2013 ADHD (attention deficit hyperactivity disorder) ([facility]) Anemia Anxiety Asthma ([facility]) Back pain Common migraine ([facility]) 08/17/2015 Depression ([facility]) H/O colonoscopy 2012 H/O umbilical hernia repair 2007 Headache 08/17/2015 Inadequate sleep hygiene 04/23/2018 Insomnia 06/25/2017 Migraine (CMS/HCC) 03/22/2017 Migraines ([facility]) Nausea with vomiting 08/17/2015 Pain [...] Visit time :32min documented in this encounter [facility] 11-28-2023 History of Present illness Narrative Reason [...] Generalized anxiety disorder (CMS/HCC) 07/04/2022 Panic disorder ([facility]) 07/04/2022 Acquired scoliosis 09/09/2016 Allergic rhinitis 10/16/2019 Anxiety 01/31/2020 Asthma ([facility]/HCC) 12/31/2014 Chronic fatigue syndrome 07/03/2016 Chronic gastritis without bleeding 12/28/2022 Irritable bowel syndrome 07/03/2016 Migraine without aura and without status migrainosus, not intractable ([facility]) 09/19/2017 Mild intermittent asthma ([facility]) 02/28/2021 Primary localized osteoarthrosis of ankle and foot 03/13/2019 Vitamin D deficiency 12/28/2022 Headache 06/28/2023 Inadequate sleep hygiene 06/28/2023 Migraine ([facility]) 06/28/2023 Tenosynovitis of foot 06/28/2023 Nausea and vomiting 06/28/2023 Common migraine with intractable migraine ([facility]) 06/28/2023 Pain in limb 06/28/2023 Chronic tension-type headache, not intractable 06/28/2023 Sleep disturbance 06/28/2023 Insomnia, unspecified 06/28/2023 Other problems related to lifestyle 06/28/2023 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 08/10/2023 Resolved Ambulatory Problems Diagnosis Date Noted No Resolved Ambulatory Problems Past Medical History: Diagnosis Date Adenoma of left breast ADHD (attention deficit hyperactivity disorder) ([facility]) Anemia Back pain Common migraine ([facility]) 08/17/2015 Depression ([facility]) H/O colonoscopy H/O umbilical hernia repair Insomnia 06/25/2017 Migraines ([facility]) Nausea with vomiting 08/17/2015 Tendonitis of right hand Tension headache 08/17/2015 HISTORY PAST MEDICAL HISTORY SOCIAL HISTORY Past Medical History: Diagnosis Date Adenoma of left breast removed 2013 ADHD (attention deficit hyperactivity disorder) ([facility]) Anemia Anxiety Asthma ([facility]) Back pain Common migraine ([facility]) 08/17/2015 Depression ([facility]) H/O colonoscopy 2012 H/O umbilical hernia repair 2008 Headache 08/17/2015 Inadequate sleep hygiene 04/23/2018 Insomnia 06/25/2017 Migraine ([facility]) 03/22/2017 Migraines ([facility]) Nausea with vomiting 08/17/2015 Pain [...] nursing note reviewed. Exam conducted with a word processing machine operator present. Vitals: Estimated body mass index [...] or undercooked meat, and stay away from [facility]. Patient has been consulted regarding any further [...] Raghavendra Vasquez DO documented in this encounter [facility] 11-27-2023 History of Present illness Narrative Images [...] work done. 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 Psychosocial stressors include . SUBJECTIVE: PAST MEDICAL HISTORY: Past Medical History: Diagnosis Date Adenoma of left breast removed 2013 ADHD (attention deficit hyperactivity disorder) ([facility]) Anemia Anxiety Asthma ([facility]) Back pain Common migraine ([facility]) 08/17/2015 Depression ([facility]) H/O colonoscopy 2012 H/O umbilical hernia repair 2007 Headache 08/17/2015 Inadequate sleep hygiene 04/23/2018 Insomnia 06/25/2017 Migraine ([facility]) 03/22/2017 Migraines ([facility]) Nausea with vomiting 08/17/2015 Pain [...] and Time Memory/Concentration Short term intact and oil heaterman intact Insight/Judgement Good OBJECTIVE: Visit Vitals LMP [...] F/U 6 weeks documented in this encounter [facility] 11-01-2023 History of Present illness Narrative Reason [...] the following prescription(s): albuterol hfa, albuterol hfa, jhxdmcvvhd-qvjzepeyogkdd-ycuppdmc , cyanocobalamin, d3-1000, dicyclomine, fluticasone, onabotulinumtoxina, ondansetron, promethazine, sertraline, and tizanidine. Medical History: Active Ambulatory Problems Diagnosis Date Noted Attention deficit hyperactivity disorder (ADHD), combined type ([facility]) 07/04/2022 Episodic mood disorder ([facility]) 07/04/2022 [place]ized anxiety disorder [place] 07/04/2022 Panic disorder [place] [place] 07/04/2022 Acquired scoliosis 09/09/2016 Allergic rhinitis 10/16/2019 Anxiety 01/31/2020 Asthma ([facility]) 12/31/2014 Chronic fatigue syndrome 07/03/2016 Chronic gastritis without bleeding 12/28/2022 Irritable bowel syndrome 07/03/2016 Migraine without aura and without status migrainosus, not intractable [place] 09/19/2017 Mild intermittent asthma ([facility]) 02/28/2021 Primary localized osteoarthrosis of ankle and foot 03/13/2019 Vitamin D deficiency 12/28/2022 Headache 06/28/2023 Inadequate sleep hygiene 06/28/2023 Migraine ([facility]) 06/28/2023 Tenosynovitis of foot 06/28/2023 Nausea and vomiting 06/28/2023 Common migraine with intractable migraine ([facility]) 06/28/2023 Pain in limb 06/28/2023 Chronic tension-type headache, not intractable 06/28/2023 Sleep disturbance 06/28/2023 Insomnia, unspecified 06/28/2023 Other problems related to lifestyle 06/28/2023 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 08/10/2023 Resolved Ambulatory Problems Diagnosis Date Noted No Resolved Ambulatory Problems Past Medical History: Diagnosis Date Adenoma of left breast ADHD (attention deficit hyperactivity disorder) ([facility]) Anemia Back pain Common migraine ([facility]) 08/17/2015 Depression ([facility]) H/O colonoscopy H/O umbilical hernia repair Insomnia 06/25/2017 Migraines ([facility]) Nausea with vomiting 08/17/2015 Tendonitis [...] pt to schedule US w/tbh. Pt desired [place] 21 advised pt to wait until 10 [...] An Duffy MA documented in this encounter [facility] 10-19-2023 Telephone encounter Note Pt needs a letter stating that she was seen in office on 10/17 Please Fax to [phone] [facility] 10-19-2023 Miscellaneous Notes Pt needs a letter stating that she was seen in office on 10/17 Please Fax to [phone] documented in this encounter [facility] 10-18-2023 History of Present illness Narrative Tiki [...] 2 puffs, Inhalation, Every 4 hours PRN hrftnjyshl-oreqpbpvoecee-gdvmeytr 50-325-40 MG tablet TAKE 1 TABLET BY [...] for further guidance. documented in this encounter [facility] 10-18-2023 History of Present illness Narrative Images from the original note were not included. Subjective Tiki Cheri Moeller is a 38 y.o. female. Patient was to be seen for botox injections but she just found out that she is . She was not planning but not preventing . She still has to see her form block maker. She has been receiving the Botox injections [...] during those pregnancies. She has having some cottage master sickness with nausea. Objective Neurological Exam Physical Exam No chief complaint on file. Mendoza Moeller, 38 y.o., female HPI Past Medical History: Diagnosis Date Adenoma of left breast removed 2013 ADHD (attention deficit hyperactivity disorder) ([facility]) Anemia Anxiety Asthma (CMS/HCC) Back [...] Return to clinic: documented in this encounter [facility] 08-03-2021 Note FINDINGS: Sonographic evaluation targeted to the painful palpable areas within the right breast. Multiple subcentimeter benign simple cysts within the right upper quadrant. Mild periareolar ductal dilatation (3-4 mm diameter). No suspicious solid nodule or mass. IMPRESSION: BI RADS 2 : BENIGN FINDINGS Report reported and signed by Alexei Smith on 08/03/2021 [id number] [facility] Film Crew Member 05-11-2021 Evaluation note Encounter Date Diagnosis Assessment Notes Apr, Encounter for immunization (ICD-10 - Z23) Patient presents for COVID-19 vaccination #2. Pre-screening form answers evaluated with patient. Patient denies current illness or allergic reaction to component of COVID-19 vaccine. Patient provided with current copy of EUA. [employer] Other Evaluation note* Diagnosis Attention deficit hyperactivity disorder (ADHD), combined type (CMS/HCC) Generalized anxiety disorder (CMS/HCC) Generalized anxiety disorder documented in this encounter [facility] HealthcareEvaluation note* Diagnosis First trimester state, incidental documented in this encounter [facility] HealthcareEvaluation note* Diagnosis Intractable chronic migraine without [...] Surgical History tibial and fibular sesmoid 10-15 [employer] Other Summary Purpose Family History No Family History Records FoundNo Family History Records FoundNo Family History Records FoundNo Family History Records FoundNo Family History Records Found Advance Directives No Advanced Directives Records FoundNo Advanced Directives Records FoundNo Advanced Directives Records FoundNo Advanced Directives Records FoundNo Advanced Directives Records Found Additional Source Comments INFORMATION SOURCE (unrecogn ized section and content) DATE CREATED AUTHOR 05/25/2021 [facility] DATE CREATED AUTHOR AUTHOR'S ORGANIZ ATION 08/04/2021 [facility] Me dical Specialist DATE CREATED AUTHOR AUTHOR'S ORGANIZ ATION 11/23/2021 [facility] DATE CREATED AUTHOR AUTHOR'S ORGANIZ ATION 12/19/2022 [facility] DATE CREATED AUTHOR AUTHOR'S ORGANIZ ATION 04/10/2024 [facility] Me dical Specialists EPIC REASON FOR VISIT (unrecogniz ed section and content) Reason Comments Routine Visit Reason Comments Med Management Follow-up Reason Comments Well Women Visit Routine Visit STI Screening Reason Comments Nausea/Vomiting In Reason Comments Amenorrhea Reason Comments Migraine Care Teams (unrecognized sec tion and content) Mail Handler Assistant Relationship Specialty Start Date End Date Ysabel Cabral MD [address] [place] [address] PCP - General Family Medicine 07/29/22 Ale Zaldivar MD [address] [facility] [place] [address] PCP - [facility] 05/28/23 Mail Handler Assistant Relationship Specialty Start Date End Date Ysabel Cabral MD [address] [place] [address] PCP - General Family Medicine 07/29/22 Ale Zaldivar MD [address] [facility] [place] [address] PCP - [facility] 05/28/23 Mail Handler Assistant Relationship Specialty Start Date End Date Ysabel Cabral MD [address] [place] [address] PCP - General Family Medicine 07/29/22 Ale Zaldivar MD [address] [place] [address] PCP - [facility] 05/28/23 Mail Handler Assistant Relationship Specialty Start Date End Date Ysabel Cabral MD [address] [facility] [place] [address] PCP - General Family Medicine 07/29/22 Ale Zaldivar MD [address] [place] [address] PCP - [facility] 05/28/23 Mail Handler Assistant Relationship Specialty Start Date End Date Ysabel Cabral MD [address] [place] [address] PCP - General Family [facility] 07/29/22 Ale Zaldivar MD [address] [address] PCP - [facility] 05/28/23 Mail Handler Assistant Relationship Specialty Start Date End Date Ysabel Cabral MD [address] [facility] [place] [address] PCP - General Family Medicine 07/29/22 Ale Zaldivar MD [address] [facility] [place] [address] PCP - [facility] 05/28/23 Mail Handler Assistant Relationship Specialty Start Date End Date Ysabel Cabral MD [address] [facility] [place] [address] PCP - General Family Medicine 07/29/22 Chloe Carvajal NP [address] [place] [address] PCP - [facility] 11/27/23 Mail Handler Assistant Relationship Specialty Start Date End Date Ysabel Cabral MD [address] [facility] [place] [address] PCP - General Family Medicine 07/29/22 Chloe Carvajal NP [address] [facility] [place] [address] PCP - [facility] 11/27/23 Mail Handler Assistant Relationship Specialty Start Date End Date Ysabel Cabral MD [address] [facility] [place] [address] PCP - General Family Medicine 07/29/22 Chloe Carvajal NP [address] [facility] [place] [address] PCP - [facility] 11/27/23 Mail Handler Assistant Relationship Specialty Start Date End Date Ysabel Cabral MD [address] [facility] [place] [address] PCP - General Family Medicine 07/29/22 Chloe Carvajal, NATAN PCP - [facility] 11/27/23 Mail Handler Assistant Relationship Specialty Start Date End Date Ysabel Cabral MD [address] [facility] [place] [address] PCP - General Family Medicine 07/29/22 Chloe Carvajal SCHEDULER MAINTENANCE PCP - [facility] 11/27/23 Mail Handler Assistant Relationship Specialty Start Date End Date Ysabel Cabral MD [address] [place] [address] PCP - General Family Medicine 07/29/22 Ale Zaldivar MD [address] [place] [address] PCP - [facility] 05/28/23 Mail Handler Assistant Relationship Specialty Start Date End Date Ysabel Cabral MD [address] [place] [address] PCP - General Family [facility] 07/29/22 Ale Zaldivar MD [address] [place] [address] PCP - [facility] 05/28/23 Mail Handler Assistant Relationship Specialty Start Date End Date Ysabel Cabral MD [address] [place] [address] PCP - General Family [facility] 07/29/22 Ale Zaldivar MD [address] [place] [address] PCP - [facility] 05/28/23 Mail Handler Assistant Relationship Specialty Start Date End Date Ysabel Cabral MD [address] [place] [address] PCP - General Family Medicine 07/29/22 Chloe Carvajal SCHEDULER MAINTENANCE PCP - [facility] 11/27/23 Mail Handler Assistant Relationship Specialty Start Date End Date Ysabel Cabral MD [address] [place] [address] PCP - [facility] Family [facility] 07/29/22 Ale Zaldivar MD [address] [place] [address] PCP - [facility] 05/28/23 Mail Handler Assistant Relationship Specialty Start Date End Date Ysabel Cabral MD [address] [place] [address] PCP - [facility] 07/29/22 Ale Zaldivar MD [address] [place] [address] PCP - [facility] 05/28/23 Mail Handler Assistant Relationship Specialty Start Date End Date Ysabel Cabral MD [address] [place] [address] PCP - General Family [facility] 07/29/22 Chloe Carvaajl, SCHEDULER MAINTENANCE PCP - [facility] 11/27/23 Mail Handler Assistant Relationship Specialty Start Date End Date Ysabel Cabral MD [address] [place] [address] PCP - General Family Medicine 07/29/22 Chloe Carvajal, SCHEDULER MAINTENANCE PCP [facility] 11/27/23 Mail Handler Assistant Relationship Specialty Start Date End Date Ysabel Cabral MD [address] [place] [address] PCP - [facility] 07/29/22 Chloe Carvajal, SCHEDULER MAINTENANCE PCP - [facility] 11/27/23 Mail Handler Assistant Relationship Specialty Start Date End Date Ysabel Cabral MD [address] [place] [address] PCP - [facility] 07/29/22 Chloe Carvajal SCHEDULER MAINTENANCE PCP - [facility] 11/27/23 Mail Handler Assistant Relationship Specialty Start Date End Date Ysabel Cabral MD [address] [place] [address] PCP - [facility] 07/29/22 Chloe Carvajal SCHEDULER MAINTENANCE [facility] - [facility] 11/27/23 Teresa Ornelas BOILER ROOM HELPER-DRILL PRESS SET UP OPERATOR [address] [address] Nurse Practitioner Psychiatry 03/14/24 Mail Handler Assistant Relationship Specialty Start Date End Date Ysabel Cabral MD [address] [place] [address] PCP - [facility] 07/29/22 Chloe Carvajal SCHEDULER MAINTENANCE PCP [facility] 11/27/23 Teresa Ornelas, BOILER ROOM HELPER-DRILL PRESS SET UP OPERATOR [address] [facility] [address] [place] [address] Nurse Practitioner Psychiatry 03/14/24 Mail Handler Assistant Relationship Specialty Start Date End Date Ysabel Cabral MD [address] [facility] [place] [address] PCP - General [facility] Medicine 07/29/22 Chloe Carvajal SCHEDULER MAINTENANCE PCP - [facility] 11/27/23 Teresa Ornelas, BOILER ROOM HELPER-DRILL PRESS SET UP OPERATOR [address] [facility] [address] [place] [address] Nurse Practitioner Psychiatry 03/14/24 Mail Handler Assistant Relationship Specialty Start Date End Date Ysabel Cabral MD [address] [facility] [place] [address] PCP - [facility] 07/29/22 Ysabel Cabral MD [address] [facility] [place] [address] PCP - [facility] 02/27/24 Teresa Ornelas, BOILER ROOM HELPER-DRILL PRESS SET UP OPERATOR [address] [place] [address] Nurse Practitioner Psychiatry 03/14/24 Mail Handler Assistant Relationship Specialty Start Date End Date Ysabel Cabral MD [address] [facility] [place] [address] PCP - [facility] 07/29/22 Ysabel Cabral MD [address] [facility] [place] [address] PCP - [facility] 02/27/24 Teresa Ornelas, BOILER ROOM HELPER-DRILL PRESS SET UP OPERATOR [address] [facility] [address] [place] [address] Nurse Practitioner Psychiatry 03/14/24 Mail Handler Assistant Relationship Specialty Start Date End Date Ysabel Cabral MD [address] [facility] [place] [address] PCP - General Family Medicine 07/29/22 Ysabel Cabral MD [address] [facility] [place] [address] PCP - [facility] 02/27/24 Teresa Ornelas APRN-DRILL PRESS SET UP OPERATOR [address] [place] [id number] Nurse Practitioner Psychiatry 03/14/24 FOR RECORDS PERTAINING [...] BE BASED ON THE PRIMARY CLINICAL RECORDS. [facility] [employer] [facility]. provides no warranty or guarantee of the accuracy or completeness of information in this document.
== END 2024-04-22 16:45 | disposition home or self-care (01) ==
LOC: US 01:08 → FBC 15:35
PROVIDERS: PCP Family Medicine; Visit Provider Physician Assistant
DX: O09.523 Supervision of elderly multigravida, third trimester (principal); Z3A.00 Weeks of gestation of pregnancy not specified
CPT/HCPCS: 76818

== ENCOUNTER 2024-04-25 00:12 | Outpatient (OUT) | payer OTHER, SELFPAY ==
--- OUTSIDE RECORDS SUMMARY | 2024-04-25 00:16 | XMS_ITS | CCD ---
Author Organization [facility] Care Team Providers Care Animal Care Taker Name Role Phone Vicky Joe Unavailable WEST, DR SANON Admitting Unavailable KARASIK, DR SANON Attending Unavailable KARASIK, DR SANON Consulting Unavailable KARASIK, DR SANON Attending Unavailable KARASIK, DR SANON Consulting Unavailable KARASIK, DR SANON Admitting Unavailable CHLOE CARVAJAL Attending Unavailable CHLOE CARVAJAL Consulting Unavailable CHLOE CARVAJAL Admitting Unavailable Ysabel Cabral MD Primary Care Provider [phone] Ale Zaldivar MD Unavailable Dillon MANAGER ZONE, Chloe Swift Unavailable Dillon MANAGER ZONE, Chloe R Unavailable Jo Ann-Nossejasen HIGH HEEL BUILDER-CYBER SYSTEMS ENGINEERTeresa Unavailable Ysabel Cabral MD Unavailable RAGHAVENDRA VASQUEZ Attending Unavailable JO ANN-NOSTERESA HOLLIS Attending Unavailab RAGHVAENDRA Bustamante Attending Unavailable JO ANN-NOSSETERESA Butterfield Attending [...] source) Aspirin Drug Allergy shortness of breath [facility] Other (20 sources) Diclofenac Drug Allergy 07-05-19 Unknown [facility] Other (20 sources) Ibuprofen Drug Allergy 07-05-19 Unknown [facility] Other (20 sources) Naproxen Drug Allergy 07-05-19 Unknown [facility] Other (20 sources) NSAIDs Drug allergy 07-05-19 Unknown [facility] Other (1 source) Aspirin Drug Allergy 02-26-18 90 [facility] Repository (1 source) cyclobenzaprine Drug Allergy 01-10-20 15 [facility] (1 source) Diclofenac Drug Allergy 01-10-20 15 [facility] (1 source) Ibuprofen Drug Allergy 08-04-19 16 [facility] (1 source) NSAIDs Drug allergy (disorder) 01-02-20 14 [facility] (20 sources) Aluminum aspirin Drug Allergy 07-05-19 23 [facility] (20 sources) Amitriptyline Drug Allergy 03-22-19 18 [facility] (20 sources) cyclobenzaprine Drug Allergy 01-24-20 16 [facility] (20 sources) Lamotrigine Allergy to substance 07-05-19 23 [facility] (20 sources) meloxicam Drug Allergy 07-05-19 23 Unknown [facility] (20 sources) Sertraline Drug Allergy 01-01-20 24 [facility] Medications Current Medications Medication Drug Class(es) [...] 3 01/10/2024 Active take 1 capsule by [facility] every twenty-four hours Omeprazole 20 MG 1 [...] 20 tablet 1 09/24/2023 11/28/2023 Discontinued (Other) [id number] 200 actuat albuterol 0.09 mg/actuat metered dose [...] Facility US OB BPP W NON-STRESS on 04-22-2024 [place] [id number] Ultrasound Report Signed Patient: TIKI MOELLER MR#: [id number] : 1985 Acct:[id number] Age/Sex: 38 / F ADM Date: 04/22/24 Loc: US Attending Dr: Veda Sarmiento Ordering Physician: Veda Sarmiento Date of Service: 04/22/24 Procedure(s): US OB BPP w non-stress Accession Number(s): [id number] cc: Veda Sarmiento; YSABEL CABRAL [place] [address] Patient Name: TIKI MOELLER MRN: [facility]:[id number] date: 1985 Sex: F Assigned Patient Location: [facility] Current Patient Location: Accession/Order Number: [id number] Exam Date: 04/22/2024 23:02 Report Date: 04/22/2024 23:05 At the request of: VEDA SARMIENTO Procedure: US OB BPP w non-stress Biophysical profile. Reason for exam: Advanced maternal age. COMPARISON: BPP 04/15/2024. TECHNIQUE: Transabdominal imaging of the gravid uterus was obtained. FINDINGS: Applications Analyst reports the biophysical profile is 8 out of 8. JT is normal at 13.9 cm. heart rate 156 bpm. US/US OB BPP w non-stress IMPRESSION: BPP 8 out of 8. Impression dictated by: Alexei Ibrahim Jr., D.O.04/22/2024 11:05 PM Dictation Location: [place] [address] Electronically authenticated by: [id number] Y Date: 04/22/2024 23:05 Dictated By: Alexei Ibrahim M.D. Signed By: 04/22/242307 DD/ 04 TD/TT: Architecture Consultant: [facility] Radiology, Radiologist, MD - 04/22/[address] [address] Ultrasound Report Signed Patient: TIKI MOELLER MR#: [id number] : 1985 Acct:[id number] Age/Sex: 38 / F ADM Date: 04/22/24 Loc: US Attending Dr: Veda Sarmiento Ordering Physician: Veda Sarmiento Date of Service: 04/22/24 Procedure(s): US OB BPP w non-stress Accession Number(s): [id number] cc: Veda Sarmiento; YSABEL CABRAL [place] [address] Patient Name: TIKI MOELLER MRN: [id number] date: 1985 Sex: F Assigned Patient Location: [facility] Current Patient Location: Accession/Order Number: [id number] Exam Date: 04/22/2024 23:02 Report Date: 04/22/2024 23:05 At the request of: VEDA SARMIENTO Procedure: US OB BPP w non-stress Biophysical profile. Reason for exam: Advanced maternal age. COMPARISON: BPP 04/15/2024. TECHNIQUE: Transabdominal imaging of the gravid uterus was obtained. FINDINGS: Applications Analyst reports the biophysical profile is 8 out of 8. JT is normal at 13.9 cm. heart rate 156 bpm. US/US OB BPP w non-stress IMPRESSION: BPP 8 out of 8. Impression dictated by: Alexei Ibrahim Jr., D.O.04/22/2024 11:05 PM Dictation Location: [place] Electronically authenticated by: [id number] Y Date: 04/22/2024 23:05 Dictated By: Alexei Ibrahim M.D. Signed By: 04/22/242307 DD/ 04 TD/TT: Architecture Consultant: [facility] Radiology Study observation (narrative) [facility] US OB BPP W NON-STRESS Ordered By: Radiologist Radiology on 04-22-2024 [facility] Work Phone: US OB BPP W NON-STRESS on 04-15-2024 [place] [address] Ultrasound Report Signed Patient: TIKI MOELLER MR#: [id number] : 1985 Acct:[id number] Age/Sex: 38 / F ADM Date: 04/15/24 Loc: [facility] 250-[address]: Raghavendra Vasquez D.O. Ordering Physician: Raghavendra Vasquez D.O. Date of Service: 04/15/24 Procedure(s): US OB BPP w non-stress Accession Number(s): [id number] cc: YSABEL CABRAL ; Raghavendra Vasquez D.O. The [place] [address] Patient Name: TIKI MOELLER MRN: [facility]:[id number] date: 1985 Sex: F Assigned Patient Location: [facility] Current Patient Location: [facility] Accession/Order Number: [id number] Exam Date: 04/15/2024 16:26 Report Date: 04/15/2024 16:31 At the request of: RAGHAVENDRA VASQUEZ DO Procedure: US OB BPP w non-stress BIOPHYSICAL PROFILE: CLINICAL INFORMATION: Multigravida of advanced maternal age TECHNIQUE: Multiple ultrasonographic scans of the lower abdomen and pelvis were obtained. The fetus is in the cephalic presentation. The measurements are consistent with a 33 week 3 day gestation. The heart rate [id number] beats per minute. FINDINGS: TONE: 1 or [...] Shelli Mcghee M.D.04/15/2024 4:31 PM Dictation Location: [place] [address] Electronically authenticated by: [id number] Y Date: 04/15/2024 16:31 Dictated By: Shelli Mcghee M.D. Signed By: 04/15/24 1633 DD/ 163 TD/TT: Architecture Consultant: [facility] Radiology, Radiologist, - 04/15/2024 [place] [address] Ultrasound Report Signed Patient: TIKI MOELLER MR#: [id number] : 1985 Acct:[id number] Age/Sex: 38 / F ADM Date: 04/15/24 Loc: [facility] 250-[address]: Raghavendra Vasquez D.O. Ordering Physician: Raghavendra Vasquez D.O. Date of Service: 04/15/24 Procedure(s): US OB BPP w non-stress Accession Number(s): [id number] cc: YSABEL CABRAL ; Raghavendra Vasquez D.O. The [place] [address] Patient Name: TIKI MOELLER MRN: [facility]:[id number] date: 1985 Sex: F Assigned Patient Location: [facility] Current Patient Location: [facility] Accession/Order Number: [id number] Exam Date: 04/15/2024 16:26 Report Date: 04/15/2024 16:31 At the request of: RAGHAVENDRA VASQUEZ DO Procedure: US OB BPP w non-stress BIOPHYSICAL PROFILE: CLINICAL INFORMATION: Multigravida of advanced maternal age TECHNIQUE: Multiple ultrasonographic scans of the lower abdomen and pelvis were obtained. The fetus is in the cephalic presentation. The measurements are consistent with a 33 week 3 day gestation. The heart rate [id number] beats per minute. FINDINGS: TONE: 1 or [...] Shelli Mcghee M.D.04/15/2024 4:31 PM Dictation Location: [place] [address] Electronically authenticated by: [id number] Y Date: 04/15/2024 16:31 Dictated By: Shelli Mcghee M.D. Signed By: 04/15/24 163 DD/ 163 TD/TT: Architecture Consultant: [facility] Radiology Study observation (narrative) [facility] US OB BPP W NON-STRESS Ordered By: Radiologist Radiology on 04-15-2024 [facility] Work Phone: US OB GROWTHon 04-15-2024 [place] [address] Ultrasound Report Signed Patient: TIKI MOELLER MR#: [id number] : 1985 Acct:[id number] Age/Sex: 38 / F ADM Date: 04/15/24 Loc: [place] [address]: Raghavendra Vasquez D.O. Ordering Physician: Raghavendra Vasquez D.O. Date of Service: 04/15/24 Procedure(s): US OB growth Accession Number(s): [id number] cc: YSABEL CABRAL Corey D.O. The [place] [address] Patient Name: TIKI MOELLER MRN: [facility]:[id number] date: 1985 Sex: F Assigned Patient Location: [facility] Current Patient Location: [facility] Accession/Order Number: [id number] Exam Date: 04/15/2024 16:31 Report Date: 04/15/2024 [...] Shelli Mcghee M.D.04/15/2024 4:37 PM Dictation Location: [facility] [employer] Electronically authenticated by: [id number] Y Date: 04/15/2024 16:37 Dictated By: Shelli Mcghee M.D. Signed By: 04/15/24 1640 DD/ 1637 TD/TT: Architecture Consultant: [facility] Radiology, Radiologist, - 04/15/2024 [place] [address] Ultrasound Report Signed Patient: TIKI MOELLER MR#: [id number] : 1985 Acct:[id number] Age/Sex: 38 / F ADM Date: 04/15/24 Loc: [facility] 250-[address]: Raghavendra Vasquez D.O. Ordering Physician: Raghavendra Vasquez D.O. Date of Service: 04/15/24 Procedure(s): US OB growth Accession Number(s): [id number] cc: YSABEL CABRAL ; Raghavendra Vasquez D.O. The [place] [id number] Patient Name: TIKI MOELLER MRN: [facility]:[id number] date: 1985 Sex: F Assigned Patient Location: [facility] Current Patient Location: [facility] Accession/Order Number: [id number] Exam Date: 04/15/2024 16:31 Report Date: 04/15/2024 [...] Shelli Mcghee M.D.04/15/2024 4:37 PM Dictation Location: [place] [address] Electronically authenticated by: [id number] Y Date: 04/15/2024 16:37 Dictated By: Shelli Mcghee M.D. Signed By: 04/15/24 1640 DD/ 1637 TD/TT: Architecture Consultant: [facility] Radiology Study observation (narrative) [facility] US OB GROWTHOrdered By: Liang ologry Radiology on 04-15-2024 [facility] Work Phone: Urinalysis macro (dipstick) panel (U)on 04-08-2024 Bilirubin, UA Negative Negative - 4(70) +++ mg/dL [facility] Blood, UA Negative Negative - 50 Armand/mcL [facility] Clarity, UA Clear [facility] Color, UA Yellow [facility] Glucose, UA Negative Negative - 2000(110) ++++ mg/dL [facility] Interpretation and review of laboratory results Abnormal [facility] Ketones, UA Negative Negative - 160(16) ++++ mg/dL [facility] Leukocytes, UA Negative Negative - 500+++ Doe/mcL [facility] Nitrite, UA Negative Negative - Positive [facility] pH, UA 7 5 - 9 [facility] Protein, UA Trace Negative - 2000(20) ++++ mg/dL [facility] Spec Grav, UA 1.025 1 - 1.03 [facility] Urobilinogen, UA 1.0 0.2 - 12 mg/dL [facility] US OB GROWTHon 03-25-2024 [place] [address] Ultrasound Report Signed Patient: TIKI MOELLER MR#: [id number] : 1985 Acct:[id number] Age/Sex: 38 / F ADM Date: 03/25/24 Loc: US Attending Dr: Raghavendra Vasquez D.O. Ordering Physician: Raghavendra Vasquez D.O. Date of Service: 03/25/24 Procedure(s): US OB growth Accession Number(s): [id number] cc: YSABEL CABRAL ; Raghavendra Vasquez D.O. [place] [address] Patient Name: TIKI MOELLER MRN: [facility]:[id number] date: 1985 Sex: F Assigned Patient Location: Current Patient Location: US Accession/Order Number: [id number] Exam Date: 03/25/2024 11:02 Report Date: 03/25/2024 [...] Signed By: 03/25/24 1150 DD/ 1147 TD/TT: Architecture Consultant: [facility] Radiology, Radiologist, - 03/25/2024 [place] [address] Ultrasound Report Signed Patient: TIKI MOELLER MR#: [id number] : 1985 Acct:[id number] Age/Sex: 38 / F ADM Date: 03/25/24 Loc: US Attending Dr: Raghavendra Vasquez D.O. Ordering Physician: Raghavendra Vasquez D.O. Date of Service: 03/25/24 Procedure(s): US OB growth Accession Number(s): [id number] cc: YSABEL CABRAL Corey D.O. The [place] [address] Patient Name: TIKI MOELLER MRN: [facility]:[id number] date: 1985 Sex: F Assigned Patient Location: US Current Patient Location: US Accession/Order Number: [id number] Exam Date: 03/25/2024 11:02 Report Date: 03/25/2024 [...] By: Ramírez Nava M.D. Signed By: 03/25/24 1154 DD/ 1147 TD/TT: Architecture Consultant: [facility] Radiology Study observation (narrative) [facility] OB GROWTHOrdered By: Liang ologist Radiology on 03-25-2024 [facility] Work Phone: Urinalysis macro (dipstick) panel (U)on 03-25-2024 Bilirubin, UA Positive Negative - 4(70) +++ mg/dL [facility] Blood, UA Negative Negative - 50 Armand/mcL [facility] Clarity, UA Clear [facility] Color, UA Yellow [facility] Glucose, UA Negative Negative - 1999(110) ++++ mg/dL [facility] Interpretation and review of laboratory results Abnormal [facility] Ketones, UA Positive Negative - 160(16) ++++ mg/dL [facility] Leukocytes, UA Negative Negative - 500+++ Doe/mcL [facility] Nitrite, UA Positive Negative - Positive [facility] pH, UA 6.5 5 - 9 [facility] Protein, UA Positive Negative - 1999(20) ++++ mg/dL [facility] Spec Grav, UA 1.025 1 - 1.03 [facility] Urobilinogen, UA 1.0 0.2 - 12 mg/dL [facility] Urinalysis macro (dipstick) panel (U)on 03-11-2024 Bilirubin, UA Negative Negative - 4(70) +++ mg/dL [facility] Blood, UA Negative Negative - 50 Armand/mcL [facility] Clarity, UA Clear [facility] Color, UA Yellow [facility] Glucose, UA Negative Negative - 1999(110) ++++ mg/dL [facility] Interpretation and review of laboratory results Abnormal [facility] Ketones, UA Negative Negative - 160(16) ++++ mg/dL [facility] Leukocytes, UA Negative Negative - 500+++ Ode/mcL [facility] Nitrite, UA Negative Negative - Positive [facility] pH, UA 7 5 - 9 [facility] Protein, UA Positive Negative - 1999(20) ++++ mg/dL [facility] Comment on above: 30 Spec Grav, UA 1.025 1 - 1.03 [facility] Urobilinogen, UA 0.2 0.2 - 12 mg/dL [facility] ALL CBC WITH AUTO DIFFon BASOPHILS ABSOLUTE AUTO 0 [facility] Basophils/100 WBC (Bld) 0.2 % 0.2 - 2.0 % [facility] Eosinophils/100 WBC (Bld) 0.6 % Low 0.9 - 7.0 % [facility] Erythrocyte distribution width (RBC) [Ratio] 13 % 11.0 - 15.0 % [facility] Hematocrit (Bld) [Volume fraction] 32.2 % Low 36.0 - 48.0 % [facility] Hemoglobin (Bld) [Mass/Vol] 10.3 g/dL Low 12.0 - 16.0 g/dL [facility] IMMATURE GRANULOCYTES ABS AUTO 0.06 High [facility] Immature granulocytes/100 WBC (Bld) 0.6 % High 0.0 - 0.5 % [facility] Interpretation and review of laboratory results Abnormal [facility] LYMPHOCYTES ABSOLUTE AUTO 1.8 [facility] Lymphocytes/100 WBC (Bld) 19.1 % Low 20.5 - 60.0 % [facility] MCH (RBC) [Entitic mass] 25.9 pg Low 26.7 - 34.0 pg [facility] MCHC (RBC) [Mass/Vol] 32 g/dL 29.9 - 35.2 g/dL [facility] MCV (RBC) [Entitic vol] 81.1 fL 81.0 - 99.0 fL [facility] MONOCYTES ABSOLUTE AUTO 0.5 [facility] Monocytes/100 WBC (Bld) 5.5 % 1.7 - 12.0 % [facility] NEUTROPHILS ABSOLUTE AUTO 7 High [facility] Neutrophils/100 WBC (Bld) 74 % 43.0 - 75.0 % [facility] Platelet mean volume (Bld) [Entitic vol] 10.7 fL 9.5 - 13.5 fL [facility] EO # 0.1 [facility] PLT 238 [facility] RBC 3.97 Low [facility] WBC 9.4 [facility] UA (CLEAN/CATCH) CYBER SYSTEMS ENGINEER/LA RO IF IND.on 03-07-2024 BILIRUBIN URINE Negative NEGATIVE [facility] BLOOD URINE Negative NEGATIVE [facility] Clarity (U) CLEAR CLEAR [facility] Color (U) YELLOW YELLOW [facility] GLUCOSE URINE UA Negative NEGATIVE mg/dL [facility] Interpretation and review of laboratory results Abnormal [facility] Ketones Ql (U) TRACE Abnormal NEGATIVE mg/dL [facility] Leukocyte esterase Test strip Ql (U) Negative NEGATIVE [facility] NITRITE URINE Negative NEGATIVE [facility] pH (U) 7.5 [pH] 5.0 - 9.0 [facility] PROTEIN URINE TRACE NEG/TRACE mg/dL [facility] SPECIFIC GRAVITY URINE 1.025 1.005 - 1.025 [facility] URINE MICROSCOPIC INDICATED NO [facility] UROBILINOGEN URINE 1.0 EU/dL 0.2 - 1.0 EU/dL [facility] ([facility]stick) panel (U)on 02-11-2024 Bilirubin, UA Negative Negative - 4(70) +++ mg/dL [facility] Blood, UA Negative Negative - 50 Armand/mcL [facility] Clarity, UA Clear [facility] Color, UA Yellow [facility] Glucose, UA Negative Negative - 1999(110) ++++ mg/dL [facility] Interpretation and review of laboratory results Abnormal [facility] Ketones, UA Negative Negative - 160(16) ++++ mg/dL [facility] Leukocytes, UA Negative Negative - 500+++ Doe/mcL [facility] Nitrite, UA Negative Negative - Positive [facility] pH, UA 7.5 5 - 9 [facility] Protein, UA Trace Negative - 1999(20) ++++ mg/dL [facility] Spec Grav, UA 1.015 1 - 1.03 [facility] Urobilinogen, UA 0.2 0.2 - 12 mg/dL [facility] IGP,APTIMA HPV,AGE GDLNon AGE GDLN ACOG TESTING Note . [facility] Comment on above: TESTS RESULT FLAG UN ITS REF RANGE LAB Clinician Provided Cytology Information Source.............Cervix Other.............. No. of containers..01 ThinPrep Vial Age Algo ACOG Beverly... FLAG LEGEND: L-Low Normal,H-High Normal,LL-Alert Low,HH-Alert High <-Panic Low,>-Panic High,A-Abnormal,AA-Critical Abnormal Performed at: 01 =[address] [place] [address] Judith Ventura MD, HPV APTIMA Negative Negative [facility] Comment on above: This nucleic acid am plification test detects fourteen high- risk HPV types (16,18,31,33,35,39,45,51,52,56,58,59,66,68) without differentiation. Performed at: =[address] [id number] Welcome Hostess: Judith Ventura MD, Phone: [phone] Performed at: [address] [place] [id number] Welcome Hostess: Judith Ventura MD, Phone: [phone] IGP, APTIMA HPV, RFX 16/18,45 Note . [facility] Comment on above: TESTS RESULT FLAG UN ITS REF RANGE LAB DIAGNOSIS: 02 NEGATIVE FOR INTRAEPITHELIAL LESION OR MALIGNANCY. Specimen adequacy: 02 Satisfactory for evaluation. Endocervical and/or squamous metaplastic cells (endocervical component) are present. Performed by: 02 Ashli Frank, Corporate Legal Secretary (ASCP) . 02 Note: Note 02 The [...] <-Panic Low,>-Panic High,A-Abnormal,AA-Critical Abnormal Performed at: 02 [facility] [address] [place] [address] Judith Ventura MD, SPATULA-ALONE CERVIX [facility] RECURRENT VAGINITIS (HTRX)on 01-11-2024 ATOPOBIUM VAGINAE 0 [facility] ATOPOBIUM VAGINAE Not detected [facility] BVAB 2,3 (BACTERIAL VAGINOSIS ASSOCIATED BACTERIA 2, 3); MOBILUNCUS SPP 0 [facility] BVAB 2,3 (BACTERIAL VAGINOSIS ASSOCIATED BACTERIA 2, 3); MOBILUNCUS SPP Not detected [facility] LOC ALBICANS, PARAPSILOSIS, TROPICALIS 0 [facility] LOC ALBICANS, PARAPSILOSIS, TROPICALIS Not detected [facility] LOC GLABRATA 0 [facility] LOC GLABRATA Not detected [facility] LOC KRUSEI 0 [facility] LOC KRUSEI Not detected [facility] CHLAMYDIA TRACHOMATIS 0 [facility] CHLAMYDIA TRACHOMATIS Not detected [facility] GARDNERELLA VAGINALIS 0 [facility] GARDNERELLA VAGINALIS Not detected [facility] MEGASPHAERA (TYPES 1, 2) 0 [facility] MEGASPHAERA (TYPES 1, 2) Not detected [facility] MYCOPLASMA GENITALIUM 0 [facility] MYCOPLASMA GENITALIUM Not detected [facility] NEISSERIA GONORRHOEAE 0 [facility] NEISSERIA GONORRHOEAE Not detected [facility] TRICHOMONAS VAGINALIS 0 [facility] TRICHOMONAS VAGINALIS Not detected [facility] Urinalysis macro (dipstick) panel (U)on 01-10-2024 Bilirubin, UA Negative Negative - 4(70) +++ mg/dL [facility] Blood, UA Negative Negative - 50 Armand/mcL [facility] Clarity, UA Clear [facility] Color, UA Yellow [facility] Glucose, UA Negative Negative - 1999(110) ++++ mg/dL [facility] Interpretation and review of laboratory results Abnormal [facility] Ketones, UA Positive Negative - 160(16) ++++ mg/dL [facility] Leukocytes, UA Negative Negative - 500+++ Doe/mcL [facility] Nitrite, UA Negative Negative - Positive [facility] pH, UA 7 5 - 9 [facility] Protein, UA Negative Negative - 1999(20) ++++ mg/dL [facility] Spec Grav, UA 1.015 1 - 1.03 [facility] Urobilinogen, UA 1.0 0.2 - 12 mg/dL [facility] ALL CBC WITH AUTO DIFFon BASOPHILS ABSOLUTE AUTO 0.0 [facility] Basophils/100 WBC (Bld) 0.2 % 0.2 - 2.0 % [facility] Eosinophils/100 WBC (Bld) 2.3 % 0.9 - 7.0 % [facility] Erythrocyte distribution width (RBC) [Ratio] 12.3 % 11.0 - 15.0 % [facility] Hematocrit (Bld) [Volume fraction] 37.1 % 36.0 - 48.0 % [facility] Hemoglobin (Bld) [Mass/Vol] 12.3 g/dL 12.0 - 16.0 g/dL [facility] IMMATURE GRANULOCYTES ABS AUTO 0.04 High [facility] Immature granulocytes/100 WBC (Bld) 0.4 % 0.0 - 0.5 % [facility] Interpretation and review of laboratory results Abnormal [facility] LYMPHOCYTES ABSOLUTE AUTO 2.7 [facility] Lymphocytes/100 WBC (Bld) 28.4 % 20.5 - 60.0 % [facility] MCH (RBC) [Entitic mass] 28.0 pg 26.7 - 34.0 pg [facility] MCHC (RBC) [Mass/Vol] 33.2 g/dL 29.9 - 35.2 g/dL [facility] MCV (RBC) [Entitic vol] 84.3 fL 81.0 - 99.0 fL [facility] MONOCYTES ABSOLUTE AUTO 0.5 [facility] Monocytes/100 WBC (Bld) 5.0 % 1.7 - 12.0 % [facility] NEUTROPHILS ABSOLUTE AUTO 6.0 [facility] Neutrophils/100 WBC (Bld) 63.7 % 43.0 - 75.0 % [facility] Platelet mean volume (Bld) [Entitic vol] 10.4 fL 9.5 - 13.[address] [facility] PLT 253 [facility] RBC 4.40 [facility] WBC 9.4 [facility] Urinalysis macro (dipstick) panel (U)on 11-28-2023 Bilirubin, UA Negative Negative - 4(70) +++ mg/dL [facility] Blood, UA Negative Negative - 50 Armand/mcL [facility] Clarity, UA Clear [facility] Color, UA Yellow [facility] Glucose, UA Negative Negative - 2000(110) ++++ mg/dL [facility] Interpretation and review of laboratory results Normal [facility] Ketones, UA Negative Negative - 160(16) ++++ mg/dL [facility] Leukocytes, UA Negative Negative - 500+++ Doe/mcL [facility] Nitrite, UA Negative Negative - Positive [facility] pH, UA 7.0 5 - 9 [facility] Protein, UA Negative Negative - 1999(20) ++++ mg/dL [facility] Spec Grav, UA 1.025 1 - 1.03 [facility] Urobilinogen, UA 1.0 0.2 - 12 mg/dL [facility] URINE CULTURE, ROUTINEon Bacteria identified Cx Nom (U) Urine Culture, Routine [facility] Bacteria identified Cx Nom (U) Culture shows less than 10,000 colony forming units of bacteria per [facility] Bacteria identified Cx Nom (U) milliliter of urine. This colony count is not generally considered [facility] Bacteria identified Cx Nom (U) to be clinically significant. [facility] Bacteria identified Cx Nom (U) Performed at: [facility] Bacteria identified Cx Nom (U) [address] [place] [address] [phone] [facility] Bacteria identified Cx Nom (U) Welcome Hostess: Michael Berry PhD, Phone: [phone] [facility] HCG ( test) Ql (U)o n 11-01-2023 Interpretation and review of laboratory results Abnormal [facility] Preg Test, Ur Positive [facility] Urinalysis macro (dipstick) panel (U)on 11-01-2023 Bilirubin, UA Negative Negative - 4(70) +++ mg/dL [facility] Blood, UA Negative Negative - 50 Armand/mcL [facility] Clarity, UA Clear [facility] Color, UA Yellow [facility] Glucose, UA Negative Negative - 1999(110) ++++ mg/dL [facility] Interpretation and review of laboratory results Normal [facility] Ketones, UA Negative Negative - 160(16) ++++ mg/dL [facility] Leukocytes, UA Negative Negative - 500+++ Doe/mcL [facility] Nitrite, UA Negative Negative - Positive [facility] pH, UA 6.0 5 - 9 [facility] Protein, UA Negative Negative - 1999(20) ++++ mg/dL [facility] Spec Grav, UA 1.020 1 - 1.03 [facility] Urobilinogen, UA 0.2 0.2 - 12 mg/dL [facility] XR CERVICAL SPINE AP/LAT/FLE X/EXT/OBLIQUESon 08-16-2023 XR [...] [Mass/Vol] 8.9 mg/dL Normal (8.6 - 10.6) [facility] Comment on above: Performed By: #### C BC/2A, ESRCRP, CCP, HBC-M, HBSAG, HCV, CA, MG, RHF, URCA #### [facility] [address] [facility], [id number] CBC, ALB, ALT, AST, ALK AND CREAon 12-18-2022 Albumin [Mass/Vol] 5.0 g/dL Normal (3.5 - 5.0) [facility] Comment on above: Order Comment: FACIL ITY: [facility] [id number] Performed By: #### C BC/2A, ESRCRP, CCP, HBC-M, HBSAG, HCV, CA, MG, RHF, URCA #### [facility] [address] [facility], [id number] ALK PHOS 60 U/L Normal (38 - 126) [facility] Comment on above: Order Comment: FACIL ITY: [facility] [id number] Performed By: #### C BC/2A, ESRCRP, CCP, HBC-M, HBSAG, HCV, CA, MG, RHF, URCA #### [facility] [address] [facility], [id number] ALT [Catalytic activity/Vol] 34 U/L Normal (1 - 35) [facility] Comment on above: Order Comment: FACIL ITY: [facility] [id number] Performed By: #### C BC/2A, ESRCRP, CCP, HBC-M, HBSAG, HCV, CA, MG, RHF, URCA #### [facility] [address] [facility], [address] AST [Catalytic activity/Vol] 34 U/L Normal (15 - 46) [facility] Comment on above: Order Comment: FACIL ITY: [facility] [id number] Performed By: #### C BC/2A, ESRCRP, CCP, HBC-M, HBSAG, HCV, CA, MG, RHF, URCA #### [facility] [address] [facility], [id number] Creatinine [Mass/Vol] 0.61 mg/dL Normal (0.52 - 1.04) [facility] Comment on above: Order Comment: FACIL ITY: [facility] [id number] Performed By: #### C BC/2A, ESRCRP, CCP, HBC-M, HBSAG, HCV, CA, MG, RHF, URCA #### [facility] [address] [facility], [address] GFR- AMER 135.1 ML/M1.7 Normal (60.0 - 140.1) [facility] Comment on above: Order Comment: FACIL ITY: [facility] [id number] Performed By: #### C BC/2A, ESRCRP, CCP, HBC-M, HBSAG, HCV, CA, MG, RHF, URCA #### [facility] [address] [facility], [address] GFR-NON AFRIC-AMER 111.6 ML/M1.7 Normal (60.0 - 115.8) [facility] Comment on above: Order Comment: FACIL ITY: [facility] [id number] Performed By: #### C BC/2A, ESRCRP, CCP, HBC-M, HBSAG, HCV, CA, MG, RHF, URCA #### [facility] [address] [facility], [id number] Hematocrit (Bld) [Volume fraction] 41.5 % Normal (37.0 - 47.0) [facility] Comment on above: Order Comment: FACIL ITY: [facility] [id number] Performed By: #### C BC/2A, ESRCRP, CCP, HBC-M, HBSAG, HCV, CA, MG, RHF, URCA #### [facility] [address] [facility], [id number] Hemoglobin (Bld) [Mass/Vol] 13.5 g/dL Normal (12.0 - 16.0) [facility] Comment on above: Order Comment: FACIL ITY: [facility] [id number] Performed By: #### C BC/2A, ESRCRP, CCP, HBC-M, HBSAG, HCV, CA, MG, RHF, URCA #### [facility] [address] [facility], [address] MCH (RBC) [Entitic mass] 28.7 pg Normal (27.0 - 33.0) [facility] Comment on above: Order Comment: FACIL ITY: [facility] [id number] Performed By: #### C BC/2A, ESRCRP, CCP, HBC-M, HBSAG, HCV, CA, MG, RHF, URCA #### [facility] [address] [facility], [address] MCHC (RBC) [Mass/Vol] 32.5 g/dL Normal (30.0 - 37.0) [facility] Comment on above: Order Comment: FACIL ITY: [facility] [id number] Performed By: #### C BC/2A, ESRCRP, CCP, HBC-M, HBSAG, HCV, CA, MG, RHF, URCA #### [facility] [address] [facility], [address] MCV (RBC) [Entitic vol] 88.1 fL Normal (81.0 - 99.0) [facility] Comment on above: Order Comment: FACIL ITY: [facility] [id number] Performed By: #### C BC/2A, ESRCRP, CCP, HBC-M, HBSAG, HCV, CA, MG, RHF, URCA #### [facility] [address] [facility], [address] PLT 282 x10^3ul Normal (130 - 400) [facility] Comment on above: Order Comment: FACIL ITY: [facility] O [id number] Performed By: #### C BC/2A, ESRCRP, CCP, HBC-M, HBSAG, HCV, CA, MG, RHF, URCA #### [facility] [address] [facility], [address] RBC 4.71 x10^6ul Normal (4.20 - 5.40) [facility] Comment on above: Order Comment: FACIL ITY: [facility] [id number] Performed By: #### C BC/2A, ESRCRP, CCP, HBC-M, HBSAG, HCV, CA, MG, RHF, URCA #### [facility] [address] [facility], [address] WBC 6.47 x10^3ul Normal (3.80 - 10.60) [facility] Comment on above: Order Comment: FACIL ITY: [facility] [id number] Performed By: #### C BC/2A, ESRCRP, CCP, HBC-M, HBSAG, HCV, CA, MG, RHF, URCA #### [facility] [address] [facility], [address] HEP B CORE AB, IGMon 023 HEPATITIS B CORE ANTIBODY, IGM Negative Normal (NEG - NEG) [facility] Comment on above: Performed By: #### C BC/2A, ESRCRP, CCP, HBC-M, HBSAG, HCV, CA, MG, RHF, URCA #### [facility] [address] [facility], [address] HEP B HERACLIO AGon 12-18-2022 HEP B HERACLIO AG Negative Normal (NEG - NEG) [facility] ic Comment on above: Performed By: #### C BC/2A, ESRCRP, CCP, HBC-M, HBSAG, HCV, CA, MG, RHF, URCA #### [facility] [address] [facility], [id number] HEP C ANTIBODYon 12-18-2022 HEPATITIS C ANTIBODY Negative Normal (NEG - NEG) [facility] Comment on above: Performed By: #### C BC/2A, ESRCRP, CCP, HBC-M, HBSAG, HCV, CA, MG, RHF, URCA #### [facility] [address] [facility], [address] MAGNESIUMon 12-18-2022 Magnesium [Mass/Vol] 2.0 mg/dL Normal (1.6 - 2.3) [facility] Comment on above: Performed By: #### C BC/2A, ESRCRP, CCP, HBC-M, HBSAG, HCV, CA, MG, RHF, URCA #### [facility] [address] [facility], [address] RF FACTORon 12-18-2022 RF FACTOR <9 Normal (0 - 12) [facility] Comment on above: Result Comment: RF F ACTOR = LESS THAN 9 IU/ML RF FACTOR MIN. DETECTION = 9 IU/ML. Performed By: #### C BC/2A, ESRCRP, CCP, HBC-M, HBSAG, HCV, CA, MG, RHF, URCA #### [facility] [address] [facility], [address] SED RATE - CRPon 12-18-2022 CRP EXTENDED RANGE 1.40 MG/L Normal (0.00 - 3.20) [facility] Comment on above: Performed By: #### C BC/2A, ESRCRP, CCP, HBC-M, HBSAG, HCV, CA, MG, RHF, URCA #### [facility] [address] [facility], [id number] SED RATE WEST. 5 MM/HR Normal (0 - 25) [facility] Comment on above: Performed By: #### C BC/2A, ESRCRP, CCP, HBC-M, HBSAG, HCV, CA, MG, RHF, URCA #### [facility] [address] [facility], [address] URIC ACIDon 12-18-2022 Urate [Mass/Vol] 4.2 mg/dL Normal (2.5 - 6.2) [facility] Comment on above: Performed By: #### C BC/2A, ESRCRP, CCP, HBC-M, HBSAG, HCV, CA, MG, RHF, URCA #### [facility] [address] [facility], [id number] PAP ACOG PANEL 2: 30 to 65on 11-16-2021 . . Normal [facility] Comment on above: Result Comment: Perf ormed at: WB Performed By: #### 4 [id number] #### [facility] [address] [place] [address] Dr. Sierra Almonte Age Gdln ACOG Testing 30-65 Normal [facility] Comment on above: Performed By: #### 4 [id number] #### [facility] [address] [address] [address] Sierra Almonte DIAGNOSIS: Comment Normal [facility] Comment on above: Result Comment: NEGA TIVE FOR INTRAEPITHELIAL LESION OR MALIGNANCY. Performed at: WB Performed By: #### 4 [id number] #### [facility] [address] [address] [address] Sierra Almonte HPV Aptima Negative Normal Negative [facility] Comment on above: Result Comment: This nucleic acid amplification test detects fourteen high-risk HPV types (16,18,31,33,35,39,45,51,52,56,58,59,66,68) without differentiation. Performed at: =G Performed By: #### 4 [id number] #### [facility] [address] [address] [address] Sierra Almonte Methodology: Comment Normal [facility] Comment on above: Result Comment: This liquid based ThinPrep(R) pap test was screened with the use of an image guided system. Performed at: WB Performed By: #### 4 [id number] #### [facility] [address] [place] [address] Dr. Sierra Almonte Note: Comment Normal [facility] Comment on above: Result Comment: The Pap smear is a screening test designed to aid in the detection of premalignant and malignant conditions of the uterine cervix. It is not a diagnostic procedure and should not be used as the sole means of detecting cervical cancer. Both false-positive and false-negative reports do occur. . Performed at: WB Performed By: #### [id number] #### [facility] [address] [place] [address] Dr. Sierra Almonte Performed by: Comment Normal [facility] Comment on above: Result Comment: Alison Nava, Corporate Legal Secretary (ASCP) Performed at: WB Performed By: #### 4 [id number] #### [facility] [address] [place] [address] Dr. Sierra Almonte Specimen adequacy: Comment Normal [facility] Comment on above: Result Comment: Sati sfactory for evaluation. Endocervical and/or squamous metaplastic cells (endocervical component) are present. Performed at: WB Performed By: #### 4 [id number] #### [facility] [address] [place] [address] Dr. Sierra Almonte US Thyroidon 07-14-2021 US [...] Smith on 07/14/2021 1000 Normal [facility] Complete Blood Count with Au to Diffon 07-12-2021 Basophils (Bld) [#/Vol] 0.02 10*3/uL Normal 0.00-0.20 [facility] Comment on above: Performed By: #### C BCAD, RF, VITD, ESR, TSH reflex FT4, CMP, FT4 #### [facility] [address], [place] [id number] Basophils/100 WBC (Bld) 0.3 % Normal [facility] Comment on above: Performed By: #### C BCAD, RF, VITD, ESR, TSH reflex FT4, CMP, FT4 #### [facility] [address], [place] [id number] Eosinophils (Bld) [#/Vol] 0.08 10*3/uL Normal 0.02-0.50 [facility] Comment on above: Performed By: #### C BCAD, RF, VITD, ESR, TSH reflex FT4, CMP, FT4 #### [facility] [address], [place] [id number] Eosinophils/100 WBC (Bld) 1.2 % Normal [facility] Comment on above: Performed By: #### C BCAD, RF, VITD, ESR, TSH reflex FT4, CMP, FT4 #### [facility] [address], [place] [id number] Erythrocyte distribution width (RBC) [Ratio] 13.8 % Normal 11.0-15.0 [facility] Comment on above: Performed By: #### C BCAD, RF, VITD, ESR, TSH reflex FT4, CMP, FT4 #### [facility] [address], [place] [id number] Hematocrit (Bld) [Volume fraction] 39.6 % Normal 35.0-47.0 [facility] Comment on above: Performed By: #### C BCAD, RF, VITD, ESR, TSH reflex FT4, CMP, FT4 #### [facility] [address], [place] [id number] Hemoglobin (Bld) [Mass/Vol] 12.9 g/dL Normal 11.6-15.5 [facility] Comment on above: Performed By: #### C BCAD, RF, VITD, ESR, TSH reflex FT4, CMP, FT4 #### [facility] [address], [place] [id number] Lymphocytes (Bld) [#/Vol] 1.3 10*3/uL Normal 0.9-3.9 [facility] Comment on above: Performed By: #### C BCAD, RF, VITD, ESR, TSH reflex FT4, CMP, FT4 #### [facility] [address], [place] [id number] Lymphocytes/100 WBC (Bld) 20.3 % Normal [facility] [employer] Comment on above: Performed By: #### C BCAD, RF, VITD, ESR, TSH reflex FT4, CMP, FT4 #### [facility] [address], [place] [id number] MCH (RBC) [Entitic mass] 28.3 pg Normal 27.0-33.0 [facility] [employer] Comment on above: Performed By: #### C BCAD, RF, VITD, ESR, TSH reflex FT4, CMP, FT4 #### [facility] [address], [place] [id number] MCHC (RBC) [Mass/Vol] 32.6 g/dL Normal 32.0-36.0 [place] [employer] Comment on above: Performed By: #### C BCAD, RF, VITD, ESR, TSH reflex FT4, CMP, FT4 #### [facility] [address], [place] [id number] MCV (RBC) [Entitic vol] 87 fL Normal 80-100 [facility] Comment on above: Performed By: #### C BCAD, RF, VITD, ESR, TSH reflex FT4, CMP, FT4 #### [facility] [address], [place] [id number] Monocytes (Bld) [#/Vol] 0.4 10*3/uL Normal 0.2-0.9 [facility] Comment on above: Performed By: #### C BCAD, RF, VITD, ESR, TSH reflex FT4, CMP, FT4 #### [facility] [address], [place] [id number] Monocytes/100 WBC (Bld) 5.8 % Normal [facility] Comment on above: Performed By: #### C BCAD, RF, VITD, ESR, TSH reflex FT4, CMP, FT4 #### [facility] [address], [place] [id number] Neutrophils (Bld) [#/Vol] 4.7 10*3/uL Normal 1.5-7.8 [facility] Comment on above: Performed By: #### C BCAD, RF, VITD, ESR, TSH reflex FT4, CMP, FT4 #### [facility] [address], [place] [id number] Neutrophils/100 WBC (Bld) 72.1 % Normal [facility] Comment on above: Performed By: #### C BCAD, RF, VITD, ESR, TSH reflex FT4, CMP, FT4 #### [facility] [address], [place] [id number] Platelet mean volume (Bld) [Entitic vol] 11.00 fL Normal 7.50-12.50 [facility] Comment on above: Performed By: #### C BCAD, RF, VITD, ESR, TSH reflex FT4, CMP, FT4 #### [facility] [address], [place] [id number] Platelets (Bld) [#/Vol] 271 10*3/uL Normal 140-400 [facility] Comment on above: Performed By: #### C BCAD, RF, VITD, ESR, TSH reflex FT4, CMP, FT4 #### [facility] [address], [place] [id number] RBC (Bld) [#/Vol] 4.56 10*6/uL Normal 3.90-5.20 [facility] Comment on above: Performed By: #### C BCAD, RF, VITD, ESR, TSH reflex FT4, CMP, FT4 #### [facility] [address], [place] [id number] RDW-SD 43.5 fL Normal 37.0-50.0 [facility] Comment on above: Performed By: #### C BCAD, RF, VITD, ESR, TSH reflex FT4, CMP, FT4 #### [facility] [address], [place] [id number] WBC (Bld) [#/Vol] 6.5 10*3/uL Normal 3.8-11.0 [facility] Comment on above: Performed By: #### C BCAD, RF, VITD, ESR, TSH reflex FT4, CMP, FT4 #### [facility] [address], [place] [id number] Comprehensive Metabolic Pane [facility] 07-12-2021 Albumin [Mass/Vol] 4.9 g/dL Normal 3.6-5.1 [facility] [employer] Comment on above: Performed By: #### C BCAD, RF, VITD, ESR, TSH reflex FT4, CMP, FT4 #### [facility] [address], [place] [id number] Albumin/Globulin [Mass ratio] 2.2 {ratio} Normal 1.0-2.5 [facility] Comment on above: Performed By: #### C BCAD, RF, VITD, ESR, TSH reflex FT4, CMP, FT4 #### [facility] [address], [place] [id number] ALP [Catalytic activity/Vol] 63 U/L Normal 35-119 [facility] Comment on above: Performed By: #### C BCAD, RF, VITD, ESR, TSH reflex FT4, CMP, FT4 #### [facility] [address], [place] [id number] ALT [Catalytic activity/Vol] 26 U/L Normal 6-33 [facility] Comment on above: Result Comment: 01/26 Female reference range changed. Performed By: #### C BCAD, RF, VITD, ESR, TSH reflex FT4, CMP, FT4 #### [facility] [address], [place] [id number] Anion gap [Moles/Vol] 18 mmol/L Normal 12-20 [facility] Comment on above: Result Comment: Effe ctive 03/03/2019 reference range changed. Performed By: #### C BCAD, RF, VITD, ESR, TSH reflex FT4, CMP, FT4 #### [facility] [address], [place] [id number] AST [Catalytic activity/Vol] 26 U/L Normal 9-34 [facility] Comment on above: Performed By: #### C BCAD, RF, VITD, ESR, TSH reflex FT4, CMP, FT4 #### [facility] [address], [place] [id number] BUN/CREA 10 Ratio Normal 6-22 [facility] Comment on above: Performed By: #### C BCAD, RF, VITD, ESR, TSH reflex FT4, CMP, FT4 #### [facility] [address], [place] [id number] Calcium [Mass/Vol] 10.0 mg/dL Normal 8.6-10.2 [facility] Comment on above: Performed By: #### C BCAD, RF, VITD, ESR, TSH reflex FT4, CMP, FT4 #### [facility] [address], [place] [id number] Chloride [Moles/Vol] 105 mmol/L Normal 98-107 [facility] Comment on above: Performed By: #### C BCAD, RF, VITD, ESR, TSH reflex FT4, CMP, FT4 #### [facility] [address], [place] [id number] CO2 [Moles/Vol] 21 mmol/L Normal 20-31 [facility] Comment on above: Performed By: #### C BCAD, RF, VITD, ESR, TSH reflex FT4, CMP, FT4 #### [facility] [address], [place] [id number] Creatinine [Mass/Vol] 0.6 mg/dL Normal 0.6-1.4 [facility] Comment on above: Performed By: #### C BCAD, RF, VITD, ESR, TSH reflex FT4, CMP, FT4 #### [facility] [address], [place] [id number] eGFRAA 132 mL/min/1.73m2 Normal >60 [facility] Comment on above: Performed By: #### C BCAD, RF, VITD, ESR, TSH reflex FT4, CMP, FT4 #### [facility] [address], [place] [id number] eGFRNAA 109 mL/min/1.73m2 Normal >60 [facility] Comment on above: Performed By: #### C BCAD, RF, VITD, ESR, TSH reflex FT4, CMP, FT4 #### [facility] [address], [place] [id number] Globulin (S) [Mass/Vol] 2.2 g/dL Normal 1.9-3.7 [facility] Comment on above: Performed By: #### C BCAD, RF, VITD, ESR, TSH reflex FT4, CMP, FT4 #### [facility] [address], [place] [id number] Glucose [Mass/Vol] 86 mg/dL Normal 65-99 [facility] Comment on above: Result Comment: For FASTING Glucose --- ADA reference ranges: Normal 65-99 mg/dl Prediabetes 100-125 Diabetes >/= 126 Performed By: #### C BCAD, RF, VITD, ESR, TSH reflex FT4, CMP, FT4 #### [facility] [address], [place] [id number] Potassium [Moles/Vol] 4.1 mmol/L Normal 3.5-5.5 [facility] [employer] Comment on above: Performed By: #### C BCAD, RF, VITD, ESR, TSH reflex FT4, CMP, FT4 #### [facility] [address], [place] [id number] Protein [Mass/Vol] 7.1 g/dL Normal 6.1-8.1 [place] [facility] [place] [employer] Comment on above: Performed By: #### C BCAD, RF, VITD, ESR, TSH reflex FT4, CMP, FT4 #### [facility] [address], [place] [id number] Sodium [Moles/Vol] 140 mmol/L Normal 135-146 [place] [facility] [place] [employer] Comment on above: Performed By: #### C BCAD, RF, VITD, ESR, TSH reflex FT4, CMP, FT4 #### [facility] [address], [place] [id number] TBIL <0.3 Normal [facility] Special[facility] Comment on above: Performed By: #### C BCAD, RF, VITD, ESR, TSH reflex FT4, CMP, FT4 #### [facility] [address], [place] [id number] Urea nitrogen [Mass/Vol] 7 mg/dL Normal 7-25 [facility] [employer] Comment on above: Performed By: #### C BCAD, RF, VITD, ESR, TSH reflex FT4, CMP, FT4 #### [facility] [address], [place] [id number] Free T4on 07-12-2021 Free T4 [Mass/Vol] 0.93 ng/dL Normal 0.80-1.80 [place] [employer] Comment on above: Performed By: #### C BCAD, RF, VITD, ESR, TSH reflex FT4, CMP, FT4 #### [facility] [address], [place] [id number] Q - PASQUALE SCREEN IFA W/RFL TIT ER AND PATTERNon 07-12-2021 PASQUALE SCREEN, IFA Negative Normal NEGATIVE [facility] [employer] Comment on above: Order Comment: [facility] performed at: [facility], [facility], [address] [place] [address] Rd, [address] [facility], [place], [address], Powderer: Leonard Turpin MD [facility] Date/Time: [facility] [...] AC-0: Negative International Consensus on PASQUALE Patterns (https://doi.org/10.1515/tdyi-6196-0001) For additional information, please refer to http://education.[employer]/faq/PXV479 (This link is being provided for informational/ educational purposes only.) Performed By: #### 2 49 #### [facility] Default [address] [place] [address] RBC Sedimentation Rateon ESR (Bld) [Velocity] 8.00 mm/h Normal 0.00-20.00 [facility] Specialist Comment on above: Performed By: #### C BCAD, RF, VITD, ESR, TSH reflex FT4, CMP, FT4 #### [facility] [address], [place] [id number] Rheumatoid Factoron 07-13-19 22 RF <10 Normal [facility] [facility] Comment on above: Performed By: #### C BCAD, RF, VITD, ESR, TSH reflex FT4, CMP, FT4 #### [facility] [address], [place] [id number] TSH w/ Reflex to Free T4on 0 07-12-2021 TSH 0.321 uIU/mL Low 0.400-4.500 [facility] [employer] Comment on above: Performed By: #### C BCAD, RF, VITD, ESR, TSH reflex FT4, CMP, FT4 #### [facility] [address], [place] [id number] Vitamin D 25-OHon 07-12-2021 VIT D 25 OH 19 ng/ml Low >29 [facility] [employer] Comment on above: Result Comment: Ade min D Status Deficiency <20 ng/mL Insufficiency 20-29 ng/mL Optimal 30-100 ng/mL Possible Toxicity >=150 ng/mL Performed By: #### C BCAD, RF, VITD, ESR, TSH reflex FT4, CMP, FT4 #### [facility] [address] [place], [place] [id number] Comprehensive Metabolic Empo n 04-11-2021 Albumin [Mass/Vol] 4.6 g/dL Normal 3.2-5.5 [facility] Comment on above: Performed By: #### E BS CMP, EBS LIPID #### [facility] [address] [id number] [facility] Albumin/Globulin [Mass ratio] 1.9 {ratio} Normal [facility] Comment on above: Performed By: #### E BS CMP, EBS LIPID #### [facility] [address] [id number] [facility] ALP [Catalytic activity/Vol] 43 U/L Normal 32-92 [facility] Comment on above: Performed By: #### E BS CMP, EBS LIPID #### [facility] [address] [place] [address] [facility] ALT [Catalytic activity/Vol] 17 U/L Normal 10-60 [facility] Comment on above: Performed By: #### E BS CMP, EBS LIPID #### [facility] [address] [place] [address] [place] AST [Catalytic activity/Vol] 20 U/L Normal 10-42 [facility] Comment on above: Performed By: #### E BS CMP, EBS LIPID #### [facility] [address] [place] [address] [place] Bilirubin [Mass/Vol] 1.1 mg/dL Normal 0.3-1.2 [facility] Comment on above: Performed By: #### E BS CMP, EBS LIPID #### [facility] [address] [id number] [place] Calcium [Mass/Vol] 9.6 mg/dL Normal 8.2-10.2 [facility] Comment on above: Performed By: #### E BS CMP, EBS LIPID #### [facility] [address] [place] [address] [place] Chloride [Moles/Vol] 102 mmol/L Normal 95-114 [facility] Comment on above: Performed By: #### E BS CMP, EBS LIPID #### [address] CO2 [Moles/Vol] 21.4 mmol/L Low 22.0-30.0 [facility] Comment on above: Performed By: #### E BS CMP, EBS LIPID #### [address] Creatinine [Mass/Vol] 0.71 mg/dL Normal 0.44-1.03 [facility] Comment on above: Performed By: #### E BS CMP, EBS LIPID #### [address] Estimated GFR ( Michelle > 60 Normal [facility] Comment on above: Result Comment: GFR estimated reference range: According to KDOQI guidelines, <60 ml/min/1.73m2 is sufficient to diagnose a patient with chronic kidney disease. Performed By: #### E BS CMP, EBS LIPID #### [address] Estimated GFR (Non- Am > 60 Normal [facility] Comment on above: Performed By: #### E BS CMP, EBS LIPID #### [place] [address] [place] Globulin (S) [Mass/Vol] 2.4 g/dL Normal [facility] Comment on above: Performed By: #### E BS CMP, EBS LIPID #### [place] [address] [place] Glucose [Mass/Vol] 76 mg/dL Normal 70-100 [facility] Comment on above: Performed By: #### E BS CMP, EBS LIPID #### [place] [address] [place] Potassium [Moles/Vol] 3.3 mmol/L Low 3.5-5.1 [facility] Comment on above: Performed By: #### E BS CMP, EBS LIPID #### [facility] [address] Protein [Mass/Vol] 7.0 g/dL Normal 6.1-7.9 [facility] Comment on above: Performed By: #### E BS CMP, EBS LIPID #### [facility] [address] Sodium [Moles/Vol] 136 mmol/L Normal 136-146 [facility] Comment on above: Performed By: #### E BS CMP, EBS LIPID #### [facility] [address] Urea nitrogen [Mass/Vol] 5 mg/dL Low 9-23 [facility] Comment on above: Performed By: #### E BS CMP, EBS LIPID #### [facility] [address] Lipid Profileon 04-11-2021 Cholesterol [Mass/Vol] 189 mg/dL Normal 140-200 [facility] Comment on above: Result Comment: Chol less than 200 mg/dl low risk Chol 201-239 mg/dl borderline risk Chol 240 mg/dl and greater high risk Performed By: #### E BS CMP, EBS LIPID #### [facility] [address] [id number] [facility] Cholesterol in HDL [Mass/Vol] 69 mg/dL Normal 35-85 [facility] Comment on above: Result Comment: HDL CHOL ATP-III CLASSIFICATION Cardiovascular Risk HDL > or equal to 60 mg/dL LOW HDL < 40 mg/dL HIGH Performed By: #### E BS CMP, EBS LIPID #### [facility] [address] Cholesterol.total/C holesterol in HDL [Mass ratio] 2.7 {ratio} Normal <5.0 [facility] Comment on above: Result Comment: PERF ORMED BY: [place] [address] PATHOLOGIST BLENDING COORDINATOR PAT PETERS M.D. Performed By: #### E BS CMP, EBS LIPID #### [facility] [address] [place] [address] [place] LDL Cholesterol,Calcula shadi 107 mg/dL High 0-100 [facility] Comment on above: Result Comment: LDL ATP III CLASSIFICATION LDL less than 100 mg/dL Optimal LDL 100-129 mg/dL Near or above optimal LDL 130-159 mg/dL Borderline high LDL 160-189 mg/dL High LDL greater than 189 mg/dL Very high Performed By: #### E BS CMP, EBS LIPID #### [facility] [address] Triglyceride w/Reflex 64 mg/dL Normal 35-149 [facility] Comment on above: Result Comment: TRIG ATP III CLASSIFICATION TRIG less than 150 mg/dL Normal TRIG 150-199 mg/dL Borderline high TRIG 200-500 mg/dL High TRIG greater than 500 mg/dL Very high Standard traceable to the Center for Disease Conrtrol and Prevention (CDC) test method. Performed By: #### E BS CMP, EBS LIPID #### [facility] [address] VLDL CHOLESTEROL 12 mg/dL Normal [facility] Comment on above: Performed By: #### E BS CMP, EBS LIPID #### [facility] [address] Covid-19 PCR (CVDTBH)on SARS-CoV-2 (COVID-19) RNA ERIC+probe Ql (Unsp spec) Detected Critically abnormal NOT DETECTED [facility] Comment on above: Result Comment: This test is not yet approved or cleared by the [place] FDA. When there are no FDA-approved or cleared tests available, and other criteria are met, FDA can make tests available under an emergency access mechanism called an Emergency Use Authorization (EUA). The EUA for this test is supported by the Coordinator Volunteer Services of Health and Human Service's (HHS's) declaration [...] used). Performed By: #### C VDTBH #### [facility] [address] [place] [address] Dr. Sierra Almonte CHLAMYDIA/GONOCOCCUS ERIC (SW AB/URINE/PAPon 12-14-2020 Chlamydia trachomatis, ERIC Negative Normal Negative [facility] Comment on above: Performed By: #### C T/NGNA #### [facility] [address] [place] [address] Dr. Sierra Almonte Neisseria gonorrhoeae, ERIC Negative Normal Negative [facility] Comment on above: Performed By: #### C T/NGNA #### [facility] [address] [place] [address] Dr. Sierra Almonte VAGINITIS/VAGINOSIS DNA PROB Andrew 12-11-2020 Loc species Negative Normal Negative [facility] Comment on above: Performed By: #### V AGINT #### [facility] [address] [place] [address] Dr. Sierra Almonte Gardnerella vaginalis Positive Abnormal Negative [facility] Comment on above: Performed By: #### V AGINT #### [facility] [address] [place] [address] Dr. Sierra Almonte Trichomonas vaginalis Negative Normal Negative [facility] Comment on above: Performed By: #### V AGINT #### [facility] [address] [place] [address] Dr. Sierra Almonte Vital Signs Date Time Vital Sign Value Performing Clinician Faci lity 04-08-2024 11:58-0500 Body mass index (BMI) [Ratio] 28.48 kg/m2 [employer] Work Phone: [facility] 04-08-2024 11:58-0500 Body weight 72.94 kg [employer] Work Phone: [facility] 04-08-2024 11:58-0500 Diastolic blood pressure 74 mm[Hg] [employer] Work Phone: [facility] 04-08-2024 11:58-0500 Systolic blood pressure 110 mm[Hg] Raghavendra Christina DO Work Phone: [facility] 04-02-2024 11:03-0500 Body mass index (BMI) [Ratio] 27.99 kg/m2 Teresa Jo Ann-Nossek HIGH HEEL BUILDER-CYBER SYSTEMS ENGINEER Work Phone: [facility] 04-02-2024 11:03-0500 Body weight 71.67 kg Teresa Jo Ann-Nossek HIGH HEEL BUILDER-CYBER SYSTEMS ENGINEER Work Phone: [facility] 04-02-2024 11:03-0500 Diastolic blood pressure 72 mm[Hg] Teresa Jo Ann-Nossek HIGH HEEL BUILDER-CYBER SYSTEMS ENGINEER Work Phone: [facility] 04-02-2024 11:03-0500 Heart rate 105 /min Teresa Jo Ann-Nossek HIGH HEEL BUILDER-CYBER SYSTEMS ENGINEER Work Phone: [facility] 04-02-2024 11:03-0500 Systolic blood pressure 122 mm[Hg] Teresa Jo Ann-Nossek HIGH HEEL BUILDER-CYBER SYSTEMS ENGINEER Work Phone: [facility] 03-25-2024 10:19-0500 Body mass index (BMI) [Ratio] 27.63 kg/m2 Raghavendra Christina DO Work Phone: [facility] 03-25-2024 10:19-0500 Body weight 70.76 kg Raghavendra Christina DO Work Phone: [facility] 03-25-2024 10:19-0500 Diastolic blood pressure 68 mm[Hg] Raghavendra Christina DO Work Phone: [facility] 03-25-2024 10:19-0500 Systolic blood pressure 100 mm[Hg] Raghavendra Christina DO Work Phone: [facility] 03-11-2024 10:10-0500 Body mass index (BMI) [Ratio] 27.95 kg/m2 Raghavendra Christina DO Work Phone: [facility] 03-11-2024 10:10-0500 Body weight 71.58 kg Raghavendra Christina DO Work Phone: [facility] 03-11-2024 10:10-0500 Diastolic blood pressure 68 mm[Hg] Raghavendra Christina DO Work Phone: [facility] 03-11-2024 10:10-0500 Systolic blood pressure 104 mm[Hg] Raghavendra Christina DO Work Phone: [facility] 02-13-2024 13:14-0500 Body height 160 cm Emerita Gillmor MANAGER ZONE Work Phone: [facility] 02-13-2024 13:14-0500 Body mass index (BMI) [Ratio] 26.93 kg/m2 Emerita Remediosmor MANAGER ZONE Work Phone: [facility] 02-13-2024 13:14-0500 Body weight 68.95 kg Emerita Remediosmor MANAGER ZONE Work Phone: [facility] 02-13-2024 13:14-0500 Diastolic blood pressure 72 mm[Hg] Emerita Remediosmor MANAGER ZONE Work Phone: [facility] 02-13-2024 13:14-0500 Heart rate 109 /min Emerita Remediosmor MANAGER ZONE Work Phone: [facility] 02-13-2024 13:14-0500 Systolic blood pressure 119 mm[Hg] Emerita Remediosmor MANAGER ZONE Work Phone: [facility] 02-11-2024 10:19-0500 Body mass index (BMI) [Ratio] 27.3 kg/m2 Raghavendra Christina DO Work Phone: [facility] 02-11-2024 10:19-0500 Body weight 71.58 kg Raghavendra Christina DO Work Phone: [facility] 02-11-2024 10:19-0500 Diastolic blood pressure 70 mm[Hg] Raghavendra Christina DO Work Phone: [facility] 02-11-2024 10:19-0500 Systolic blood pressure 120 mm[Hg] Raghavendra Christina DO Work Phone: [facility] 01-10-2024 10:44-0500 Body mass index (BMI) [Ratio] 26.3 kg/m2 Raghavendra Christina DO Work Phone: [facility] 01-10-2024 10:44-0500 Body weight 68.95 kg Raghavendra Christina DO Work Phone: [facility] 01-10-2024 10:44-0500 Diastolic blood pressure 74 mm[Hg] Raghavendra Christina DO Work Phone: [facility] 01-10-2024 10:44-0500 Systolic blood pressure 116 mm[Hg] Raghavendra Christina DO Work Phone: [facility] 01-01-2024 11:40-0500 Body mass index (BMI) [Ratio] 25.78 kg/m2 Teresa Jo Ann-Nossek HIGH HEEL BUILDER-CYBER SYSTEMS ENGINEER Work Phone: [facility] 01-01-2024 11:40-0500 Body weight 67.59 kg Teresa Jo Ann-Nossek HIGH HEEL BUILDER-CYBER SYSTEMS ENGINEER Work Phone: [facility] 01-01-2024 11:40-0500 Diastolic blood pressure 82 mm[Hg] Teresa Jo Ann-Nossek HIGH HEEL BUILDER-CYBER SYSTEMS ENGINEER Work Phone: [facility] 01-01-2024 11:40-0500 Heart rate 99 /min Teresa Jo Ann-Nossek HIGH HEEL BUILDER-CYBER SYSTEMS ENGINEER Work Phone: [facility] 01-01-2024 11:40-0500 Systolic blood pressure 100 mm[Hg] Teresa Jo Ann-Nossek HIGH HEEL BUILDER-CYBER SYSTEMS ENGINEER Work Phone: [facility] 11-28-2023 14:53-0400 Body mass index (BMI) [Ratio] 25.57 kg/m2 Raghavendra Christina DO Work Phone: [facility] 11-28-2023 14:53-0400 Body weight 67.04 kg Raghavendra Christina DO Work Phone: [facility] 11-28-2023 14:53-0400 Diastolic blood pressure 74 mm[Hg] Raghavendra Valdezo DO Work Phone: [facility] 11-28-2023 14:53-0400 Systolic blood pressure 114 mm[Hg] Raghavendra Christina DO Work Phone: [facility] 11-01-2023 15:16-0400 Body mass index (BMI) [Ratio] 25.6 kg/m2 Nom Nurse [facility] 11-01-2023 15:16-0400 Body weight 67.13 kg Nom Nurse [facility] 10-18-2023 11:32-0400 Body height 161.9 cm Ysabel Cabral MD Work Phone: [facility] 10-18-2023 11:32-0400 Body mass index (BMI) [Ratio] 26.05 kg/m2 Ysabel Cabral MD Work Phone: [facility] 10-18-2023 11:32-0400 Body weight 68.31 kg Ysabel Cabral MD Work Phone: [facility] 10-18-2023 11:32-0400 Diastolic blood pressure 76 mm[Hg] Ysabel Cabral MD Work Phone: [facility] 10-18-2023 11:32-0400 Heart rate 92 /min Ysabel Cabral MD Work Phone: [facility] 10-18-2023 11:32-0400 Respiratory rate 20 /min Ysabel Cabral MD Work Phone: [facility] 10-18-2023 11:32-0400 Systolic blood pressure 122 mm[Hg] Ysabel Cabral MD Work Phone: [facility] Healthcare Encounters Encounter Date Encounter Type Care Provider Facility Start: 04-22-2024 End: 04-22-2024 Clinisync Result Encounter Generic External Data Provider [facility] Unsolicited Start: 04-22-2024 End: 04-22-2024 Clinisync Result Encounter Generic External Data Provider [facility] External Department Unsolicited Start: 04-15-2024 End: 04-15-2024 Clinisync Result Encounter Generic External Data Provider [facility] External Department Unsolicited Start: 04-15-2024 End: 04-15-2024 [...] 04-02-2024 Bamboo flowsheet Teresa Cheri Jo Ann-Nossek HIGH HEEL BUILDER-CYBER SYSTEMS ENGINEER Work Phone: [facility] Start: 04-02-2024 End: 04-02-2024 Bamboo flowsheet Teresa Cheri Jo Ann-Nossek HIGH HEEL BUILDER-CYBER SYSTEMS ENGINEER Work Phone: [facility] Start: 04-02-2024 End: 04-02-2024 ambulatory TERESA Cheri JO ANN-NOSSEK Not Available Start: 04-02-2024 End: 04-02-2024 Office outpatient visit 25 minutes Teresa Alonzo Jo Ann-Nossek HIGH HEEL BUILDER-CYBER SYSTEMS ENGINEER Work Phone: [facility] Comment on above: [...] 02-13-2024 End: 02-13-2024 Bamboo flowsheet Emerita Warren MANAGER ZONE [facility] [facility] Start: 02-13-2024 End: 02-13-2024 Bamboo flowsheet Emerita Whittakerleah MANAGER ZONE [facility] Phone[facility] [place] [facility] Start: 02-13-2024 End: 02-13-2024 ambulatory EMERITA WARREN Not Available Start: 02-13-2024 End: 02-13-2024 Office outpatient visit 15 minutes Emerita Gillleah MANAGER ZONE [facility] [place] [facility] Comment on above: Intractable chronic [...] 01-01-2024 Bamboo flowsheet Teresa Alonzo Jo Ann-Nossek HIGH HEEL BUILD[employer] Work Phone: [facility] Start: 01-01-2024 End: 01-01-2024 Bamboo flowsheet Teresa Alonzo Jo Ann-Nossek HIGH HEEL BUILDER-[employer] Work Phone: [facility] Start: 01-01-2024 End: 01-01-2024 ambulatory TERESA Cheri JO ANN-NOSSEK Not Available Start: 01-01-2024 End: 01-01-2024 Office outpatient visit 25 minutes Teresa Alonzo Jo Ann-Nossek HIGH HEEL BUILDER-[employer] Work Phone: [facility] Comment on [...] Office outpatient visit 15 minutes Teresa Ornelas HIGH HEEL BUILDER-CYBER SYSTEMS ENGINEER Work Phone: [facility] Comment on above: Attention deficit hy peractivity disorder (ADHD), combined type (CMS/HCC); Generalized anxiety disorder (CMS/HCC) Start: 11-27-2023 End: 11-27-2023 ambulatory TERESA SMITH-NOSSEK Not Available Start: 11-01-2023 End: 11-01-2023 ambulatory [...] 25 minutes Evonne Jaydon DO Work Phone: [facility] Comment on above: Intractable chronic [...] ambulatory DR TALITA DODSON Facility:[facility] Start: 05-11-2021 ([facility] C Vac) [facility] Co vid Vaccine Vicky Joe [facility] Start: 05-11-2021 End: 05-11-2021 ambulatory Vicky Joe Other [employer] Other Start: 03-01-2021 End: 03-01-2021 ambulatory CHLOE CARVAJAL Facility:[facility] Start: 12-10-2020 End: 12-10-[address] TALITA DODSON Facility:[facility] Procedures Date Procedure Procedure Detail Performing Clinician Start: 04-22-2024 OB BPP W NON-STRESS Generic External Data Provider Start: 04-15-2024 US OB GROWTH Generic Ex ternal Data Provider Start: 04-15-2024 US OB BPP W NON-STRESS Generic External Data Provider Start: 04-08-2024 Urnls dip stick/tabl et rgnt non-auto w/o micrscp Veda CARLSON Work Phone: Start: 03-25-2024 US OB GROWTH Generic Ex ternal Data Provider Start: 03-25-2024 Urnls dip stick/tabl et rgnt non-auto w/o micrscp Raghavendra Christina DO Work Phone: Start: 03-11-2024 Urnls dip stick/tabl et rgnt non-auto w/o micrscp Raghavendra Christina DO Work Phone: Start: 03-10-2024 ALL CBC WITH AUTO DIFF Generic External Data Provider Start: 03-07-2024 TBH UA (CLEAN/CATCH) CYBER SYSTEMS ENGINEER/MICRO IF IND. Raghavendra Christina DO Work Phone: [...] RHF, URCA #### [facility] [address] [place], [address] Plan of Treatment Date Care Activity Detail Author Start: 01-09-2027 Screening for malign ant neoplasm of cervix [facility] Start: 06-17-2024 End: 06-17-2024 Patient encounter procedure 06/17/2024 11:30 AM EDT Office Visit [facility] [address] [facility] [address] [place] [address] Teresa Ornelas, HIGH HEEL BUILDER-CYBER SYSTEMS ENGINEER [address] [facility] [address] [place] [address] [facility] Start: 05-06-2024 End: 05-06-2024 Patient encounter procedure [facility] [place] [address] Start: 04-23-2024 End: 04-23-2024 Patient encounter procedure 04/23/2024 11:10 AM EST Routine [facility] [address] [facility] [place] [address] Raghavendra Vasquez, DO [address] [facility] [place] [address] [facility] Start: 04-08-2024 End: 10-06-2024 [...] Routine [facility] [address] [facility] [phone] Raghavendra Vasquez, DO [address] [place] [address] [facility] Start: 04-02-2024 End: 04-02-2024 Patient encounter procedure 04/02/2024 11:00 AM EST Office Visit [facility] [address] [facility] [address] [place] [address] Teresa Ornelas, HIGH HEEL BUILDER-[facility] [address] [facility] [address] [place] [address] [facility] Start: 03-25-2024 End: 03-25-2024 Patient encounter procedure 03/25/2024 10:00 AM EST Routine [facility] [address] [place] [phone] Raghavendra Vasquez, DO [address] [facility] [place] [address] [facility] Start: 03-11-2024 End: 03-11-2024 Patient encounter procedure 03/11/2024 9:40 AM EST Routine [facility] [address] [place] [phone] Raghavendra Vasquez, DO [address] [place] [address] [facility] Start: 02-13-2024 End: 02-13-2024 Patient encounter procedure 02/13/2024 1:00 PM EST Office Visit [facility] [place] [address] [place] [phone] Emerita Warren, MANAGER ZONE [address] [facility] [place] [facility] [place] [address] Start: 02-11-2024 End: 02-10-2025 CBC panel - Blood by Automated count CBC Lab Routine Diabetes mellitus screening Expected: 02/11/2024 (Approximate), Expires: 02/10/2025 [facility] Healthcare Work Phone: Comment on above: Expected: 02/11/2024 (Approximate), Expires: 02/10/2025 Start: 02-11-2024 End: 02-10-2025 Measurement of glucose 1 hour after glucose challenge for glucose tolerance test Glucose tolerance, 1 hour Lab Routine Diabetes mellitus screening Expected: 02/11/2024 (Approximate), Expires: 02/10/2025 [facility] Comment on above: Expected: 02/11/2024 (Approximate), Expires: 02/10/2025 Start: 02-11-2024 End: 02-10-2025 US for US OB SCAN FOR GROWTH Imaging Routine 23 weeks gestation of Diabetes mellitus screening Expected: 02/11/2024 (Approximate), Expires: 02/10/2025 [facility] Comment on above: Expected: 02/11/2024 (Approximate), Expires: 02/10/2025 Start: 02-11-2024 End: 02-11-2024 Patient encounter procedure 02/11/2024 9:40 AM EST Routine [facility] [address] [facility] [place] [phone] Raghavendra Vasquez, [address] [place] [address] [facility] Start: 01-28-2024 End: 01-28-2024 Professional / ancillary services management 01/28/2024 11:00 AM EST Ancillary Procedure [facility] [address] [facility] [place] [phone] [facility] Start: 01-10-2024 End: 05-14-2025 Alpha fetoprotein, maternal Alpha fetoprotein, maternal Lab [...] AM EST Routine [facility] [address] [facility] [place] [phone] Raghavendra Vasquez DO [address] [facility] [address] [address] [facility] Start: 01-01-2024 End: 01-01-2024 Patient encounter procedure 01/01/2024 11:30 AM EST Office Visit [facility] [address] [facility] [address] [place] [address] Teresa Ornelas, HIGH HEEL BUILDER-CYBER SYSTEMS ENGINEER [address] [facility] [address] [place] [address] [facility] Start: 12-18-2023 End: 12-18-2023 Patient encounter procedure 12/18/2023 5:30 PM EDT Office Visit [facility] [place] [address] [place] [phone] Evonne Childress, DO [address] [place] [address] [facility] [place] [facility] Start: 11-28-2023 End: 11-28-2023 Patient encounter procedure 11/28/2023 2:20 PM EDT [facility] [address] [facility] [place] [phone] Raghavendra Vasquez, [address] [facility] [place] [address] [facility] Start: 11-27-2023 End: 11-27-2023 Patient encounter procedure 11/27/2023 11:00 AM EDT Office Visit [facility] [address] [facility] [address] [place] [address] Teresa Ornelas, HIGH HEEL BUILDER-CYBER SYSTEMS ENGINEER [address] [facility] [address] [place] [address] [facility] Start: 11-01-2023 End: 10-31-2024 ABO/Rh ABO/Rh Lab Routine Missed menses Expected: 11/01/2023 (Approximate), Expires: 10/31/2024 [facility] Healthcare Comment on above: Expected: 11/01/2023 (Approximate), Expires: 10/31/2024 Start: 11-01-2023 End: 11-01-2023 ambulatory 11/01/2023 2:00 PM EDT Initial [facility] [address] [place] [id number] [facility] Start: 11-01-2023 End: 10-31-2024 Blood type [...] management 11/01/2023 1:30 PM EDT Ancillary Procedure [facility] [address] [place] [address] [facility] Start: 10-28-2023 Influenza vaccination Influenza Vacc ine (#1) [facility] Start: 10-18-2023 End: 10-18-2023 Patient encounter procedure 10/18/2023 11:40 AM EDT Office Visit [facility] [address] [place] [address] Ysabel Cabral MD [address], [place] [id number] [facility] Start: 10-18-2023 End: 10-18-2023 Patient encounter procedure 10/18/2023 10:30 AM EDT Procedure Visit [facility] [address] [place] [address] Evonne Childress, DO [address] [place] [address] Ar[address] [facility] Comment on above: Arrived Start: 09-10-2017 Screening for malign ant neoplasm of cervix [facility] Start: 09-10-2008 Screening for malign ant neoplasm of cervix Pap Smear [facility] Bacteria identified in Urine by Culture Urine culture Microbiology Routine Missed menses Ordered: 11/01/2023 [facility] Comment on above: Ordered: 11/01/2023 CBC W Auto Different ial panel - Blood CBC and differential Lab Routine Missed menses Ordered: 11/01/2023 [facility] Comment on above: Ordered: 11/01/2023 CHLAMYDIA TRACHOMATI S (GENITO/STI) CHLAMYDIA TRACHOMATIS (GENITO/STI) Lab Routine STD exposure Ordered: 01/10/2024 [facility] Comment on above: Ordered: 01/10/2024 Cytology Cervical or vaginal smear or scraping study Pap Smear Pathology and Cytology Routine Well woman exam with routine gynecological exam Ordered: 01/10/2024 [facility] Comment on above: Ordered: 01/10/2024 Hemoglobin A1c/Hemoglobin.total in Blood Hemoglobin A1c Lab Routine Missed menses Ordered: 11/01/2023 [facility] Comment on above: Ordered: 11/01/2023 Hepatitis B virus surface Ag [Presence] in Serum or Plasma by Immunoassay Hepatitis B surface antigen Lab Routine Missed menses Ordered: 11/01/2023 [facility] Comment on above: Ordered: 11/01/2023 Hepatitis C virus Ab [Presence] in Serum or Plasma by Immunoassay Hepatitis C antibody Lab Routine Missed menses Ordered: 11/01/2023 [facility] Comment on above: Ordered: 11/01/2023 HIV-1/HIV-2 antigen/antibody combination immunoassay HIV-1 and HIV-2 antibodies Lab Routine Missed menses Ordered: 11/01/2023 [facility] Comment on above: Ordered: 11/01/2023 Human papilloma viru s DNA [Presence] in Unspecified specimen by Probe with amplification HPV DNA probe, amplified Microbiology Routine Well woman exam with routine gynecological exam Ordered: 01/10/2024 [facility] Comment on above: Ordered: 01/10/2024 Neisseria gonorrhoea e DNA [Presence] in Unspecified specimen by ERIC with probe detection Neisseria gonorrhea DNA probe, direct Lab Routine STD exposure Ordered: 01/10/2024 [facility] Comment on above: Ordered: 01/10/2024 Reagin Ab [Presence] in Serum by RPR RPR Lab Routine Missed menses Ordered: 11/01/2023 [facility] Comment on above: Ordered: 11/01/2023 Rubella antibody, IgG Rubella an tibody, IgG Lab Routine Missed menses Ordered: 11/01/2023 [facility] Comment on above: Ordered: 11/01/2023 SURESWAB(R) ADVANCED VAGINITIS PLUS, TMA SURESWAB(R) ADVANCED VAGINITIS PLUS, TMA Pathology and Cytology Routine Vaginal discharge Ordered: 01/10/2024 [facility] Work Phone: Comment on above: Ordered: 01/10/2024 Immunizations Immunization Date Immunization Notes Care Provider Corrina hanson 05-11-2021 COVID-19 En Joe Other [facility] Other 10-02-2016 influenza, injectabl e, quadrivalent, preservative free Evonne Jaydon DO Work Phone: [facility] 10-02-2016 influenza virus vaccine, unspecified formulation Evonne Jaydon DO Work Phone: [facility] 10-13-2015 influenza, injectabl e, quadrivalent, preservative free Evonne Jaydon DO Work Phone: [facility] 12-02-2014 influenza, seasonal, injectable, preservative free Evonne Jaydon DO Work Phone: [facility] Healthcare Payers Date Payer Category Payer Medicaid [employer] [employer] [id number] 2021-Present [address] [place] [phone] 2021 Medicaid (Managed Care) [employer] [id number] 1987 Unknown [id number] [id number]. 593 1987 Unknown [id number] 2.840.1.277325.3.579.2. 593 1987 Unknown [id number] 2.840.1.877852.3.579.2. 593 1987 Unknown [id number] 2.840.1.427235.3.579.2. 1259 1987 Unknown [id number] 2.16.840.1.217737.3.579.2. 1258 1987 Unknown [id number] 2.16.840.1.947044.3.579.2. 1258 1987 Unknown [id number] 2.16.840.1.612771.3.579.2. 1258 1987 Unknown [id number] 2.16.840.1.929716.3.579.2. 1258 1987 Unknown [id number] 2.16.840.1.171492.3.579.2. 1258 1987 Unknown [id number] 2..840.1.835508.3.579.2. 1258 1987 Unknown [id number] 2..840.1.753418.3.579.2. 1258 1987 Unknown [id number] 2.840.1.000675.3.579.2. 1258 1987 Unknown [id number] 2.840.1.147128.3.579.2. 1258 1987 Unknown [id number] 2.840.1.101381.3.579.2. 1258 1987 Unknown [id number] 2.840.1.551876.3.579.2. 1258 1987 Unknown [id number] 2.840.1.065548.3.579.2. 1258 1987 Unknown [id number] 2..840.1.306332.3.579.2. 1258 1987 Unknown [id number] 2..840.1.823472.3.579.2. 1258 1987 Unknown [id number] 2.16.840.1.003556.3.579.2. 1258 1987 Unknown [id number] 2.840.1.431825.3.579.2. 1258 1987 Unknown [id number] 2.840.1.270881.3.579.2. 1259 1987 Unknown [id number] 2.16.840.1.366332.3.579.2. 9 1987 Unknown [id number] 2.16.840.1.281157.3.579.2. 9 1987 Unknown [id number] 2.16.840.1.363388.3.579.2. 1258 1987 Unknown [id number] 2.16.840.1.295453.3.579.2. 9 1987 Unknown [id number] 2.16.840.1.808215.3.579.2. 1258 1987 Unknown [id number] 2.16.840.1.974961.3.579.2. 1259 1959 Unknown [id number] 2.16.840.1.829079.19 Social History Date Type Detail Facility Unknown if ever smoked [facility] Other Start: 2022 End: 01-01-2024 Sex [facility]igned At [facility] Other Start: 12-22-2022 [facility] Start: [...] End: 04-02-2024 Alcoholic beverage intake Ex-drinker (finding) [facility] Start: 01-01-2024 Alcohol Comment I have a glass of wine or 2 glasses each evening with dinner [facility] Clinical Notes 05-11-2021 to 04-08-2024 Shelli Toño, SWAGE TENDER - 04/08/2024 11:40 AM America Ornelas, HIGH HEEL BUILDER-CYBER SYSTEMS ENGINEER - 04/02/2024 11:00 AM BACILIOShelil Bobjuma, [facility] - 03/25/2024 10:00 AM Christine Lundberg, [facility] - 03/11/2024 9:40 AM EST Note Date [...] Attention deficit hyperactivity disorder (ADHD), combined type ([facility]) 07/04/2022 Episodic mood disorder ([facility]) 07/04/2022 Generalized anxiety disorder ([facility]) 07/04/2022 Panic disorder ([facility]) 07/04/2022 Acquired scoliosis 09/09/2016 Allergic rhinitis 10/16/2019 Anxiety 01/31/2020 Asthma ([facility]) 12/31/2014 Chronic fatigue syndrome 07/03/2016 Chronic gastritis without bleeding 12/28/2022 Irritable bowel syndrome 07/03/2016 Migraine without aura and without status migrainosus, not intractable ([facility]) 09/19/2017 Mild intermittent asthma ([facility]) 02/28/2021 Primary localized osteoarthrosis of ankle and foot 03/13/2019 Vitamin D deficiency 12/28/2022 Headache 06/28/2023 Inadequate sleep hygiene 06/28/2023 Migraine ([facility]) 06/28/2023 Tenosynovitis of foot 06/28/2023 Nausea and vomiting 06/28/2023 Common migraine with intractable migraine ([facility]) 06/28/2023 Pain in limb 06/28/2023 Chronic tension-type headache, not intractable 06/28/2023 Sleep disturbance 06/28/2023 Insomnia, unspecified 06/28/2023 Other problems related to lifestyle 06/28/2023 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 08/10/2023 Resolved Ambulatory Problems Diagnosis Date Noted No Resolved Ambulatory Problems Past Medical History: Diagnosis Date Adenoma of left breast ADHD (attention deficit hyperactivity disorder) ([facility]) Anemia Back pain Common migraine ([facility]) 08/17/2015 Depression ([facility]) H/O colonoscopy H/O umbilical hernia repair Insomnia 06/25/2017 Migraines ([facility]) Nausea with vomiting 08/17/2015 Tendonitis of right hand Tension headache 08/17/2015 HISTORY PAST MEDICAL HISTORY SOCIAL HISTORY Past Medical History: Diagnosis Date Adenoma of left breast removed 2013 ADHD (attention deficit hyperactivity disorder) ([facility]) Anemia Anxiety Asthma ([facility]) Back pain Common migraine ([facility]) 08/17/2015 Depression ([facility]) H/O colonoscopy 2012 H/O umbilical hernia repair 2008 Headache 08/17/2015 Inadequate sleep hygiene 04/23/2018 Insomnia 06/25/2017 Migraine ([facility]) 03/22/2017 Migraines ([facility]) Nausea with vomiting 08/17/2015 Pain in limb [...] nursing note reviewed. Exam conducted with a sustainable systems analyst present. Vitals: Estimated body mass index is [...] Shelli Lundberg LPN on behalf of: Veda Sarmiento PA-C documented in this encounter [facility] 04-02-2024 History of Present illness Narrative Images from the original note were not included. Patient reports not starting the Zoloft after last visit. Tiki Moeller is a 38 y.o. female presents for Medication Management. HPI: Patient is here for medication follow up. Patient is currently 34weeks decided not to take zoloft. Got fired from [employer] due to falling asleep. She was feeling [...] (attention deficit hyperactivity disorder) ([facility] Anemia Anxiety Asthma ([facility]) Back pain Common migraine ([facility]) 08/17/2015 Depression ([facility]) H/O colonoscopy 2012 H/O umbilical hernia repair 2007 Headache 08/17/2015 Inadequate sleep hygiene 04/23/2018 Insomnia 06/25/2017 Migraine ([facility]) 03/22/2017 Migraines ([facility]) Nausea with vomiting 08/17/2015 Pain in limb [...] check for post documented in this encounter [facility] 03-25-2024 History of Present illness Narrative [...] Attention deficit hyperactivity disorder (ADHD), combined type ([facility] 07/04/2022 Episodic mood disorder ([facility]) 07/04/2022 Generalized anxiety disorder ([facility] 07/04/2022 Panic disorder ([facility]) 07/04/2022 Acquired scoliosis 09/09/2016 Allergic rhinitis 10/16/2019 Anxiety 01/31/2020 Asthma ([facility]) 12/31/2014 Chronic fatigue syndrome 07/03/2016 Chronic gastritis without bleeding 12/28/2022 Irritable bowel syndrome 07/03/2016 Migraine without aura and without status migrainosus, not intractable ([facility]) 09/19/2017 Mild intermittent asthma ([facility]) 02/28/2021 Primary localized osteoarthrosis of ankle and foot 03/13/2019 Vitamin D deficiency 12/28/2022 Headache 06/28/2023 Inadequate sleep hygiene 06/28/2023 Migraine ([facility]) 06/28/2023 Tenosynovitis of foot 06/28/2023 Nausea and vomiting 06/28/2023 Common migraine with intractable migraine ([facility] 06/28/2023 Pain in limb 06/28/2023 Chronic tension-type headache, not intractable 06/28/2023 Sleep disturbance 06/28/2023 Insomnia, unspecified 06/28/2023 Other problems related to lifestyle 06/28/2023 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 08/10/2023 Resolved Ambulatory Problems Diagnosis Date Noted No Resolved Ambulatory Problems Past Medical History: Diagnosis Date Adenoma of left breast ADHD (attention deficit hyperactivity disorder) ([facility]) Anemia Back pain Common migraine ([facility]) 08/17/2015 Depression ([facility]) H/O colonoscopy H/O umbilical hernia repair Insomnia 06/25/2017 Migraines ([facility]) Nausea with vomiting 08/17/2015 Tendonitis of right hand Tension headache 08/17/2015 HISTORY PAST MEDICAL HISTORY SOCIAL HISTORY Past Medical History: Diagnosis Date Adenoma of left breast removed 2013 ADHD (attention deficit hyperactivity disorder) ([facility]) Anemia Anxiety Asthma ([facility]) Back pain Common migraine ([facility]) 08/17/2015 Depression ([facility]) H/O colonoscopy 2012 H/O umbilical hernia repair 2007 Headache 08/17/2015 Inadequate sleep hygiene 04/23/2018 Insomnia 06/25/2017 Migraine ([facility]) 03/22/2017 Migraines ([facility]) Nausea with vomiting 08/17/2015 Pain in limb [...] nursing note reviewed. Exam conducted with a sustainable systems analyst present. Vitals: Estimated body mass index is [...] Raghavendra Vasquez DO documented in this encounter [facility] 03-11-2024 History of Present illness Narrative [...] Attention deficit hyperactivity disorder (ADHD), combined type ([facility]) 07/04/2022 Episodic mood disorder ([facility]) 07/04/2022 Generalized anxiety disorder ([facility]) 07/04/2022 Panic disorder ([facility]) 07/04/2022 Acquired scoliosis 09/09/2016 Allergic rhinitis 10/16/2019 Anxiety 01/31/2020 Asthma ([facility]) 12/31/2014 Chronic fatigue syndrome 07/03/2016 Chronic gastritis without bleeding 12/28/2022 Irritable bowel syndrome 07/03/2016 Migraine without aura and without status migrainosus, not intractable ([facility]) 09/19/2017 Mild intermittent asthma ([facility]) 02/28/2021 Primary localized osteoarthrosis of ankle and foot 03/13/2019 Vitamin D deficiency 12/28/2022 Headache 06/28/2023 Inadequate sleep hygiene 06/28/2023 Migraine ([facility]) 06/28/2023 Tenosynovitis of foot 06/28/2023 Nausea and vomiting 06/28/2023 Common migraine with intractable migraine ([facility]) 06/28/2023 Pain in limb 06/28/2023 Chronic tension-type headache, not intractable 06/28/2023 Sleep disturbance 06/28/2023 Insomnia, unspecified 06/28/2023 Other problems related to lifestyle 06/28/2023 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 08/10/2023 Resolved Ambulatory Problems Diagnosis Date Noted No Resolved Ambulatory Problems Past Medical History: Diagnosis Date Adenoma of left breast ADHD (attention deficit hyperactivity disorder) ([facility] Anemia Back pain Common migraine ([facility]) 08/17/2015 Depression ([facility] H/O colonoscopy H/O umbilical hernia repair Insomnia 06/25/2017 Migraines ([facility]) Nausea with vomiting 08/17/2015 Tendonitis of right hand Tension headache 08/17/2015 HISTORY PAST MEDICAL HISTORY SOCIAL HISTORY Past Medical History: Diagnosis Date Adenoma of left breast removed 2013 ADHD (attention deficit hyperactivity disorder) ([facility]) Anemia Anxiety Asthma ([facility]) Back pain Common migraine ([facility]) 08/17/2015 Depression ([facility]) H/O colonoscopy 2012 H/O umbilical hernia repair 2008 Headache 08/17/2015 Inadequate sleep hygiene 04/23/2018 Insomnia 06/25/2017 Migraine ([facility]) 03/22/2017 Migraines ([facility]) Nausea with vomiting 08/17/2015 Pain in limb [...] nursing note reviewed. Exam conducted with a sustainable systems analyst present. Vitals: Estimated body mass index is [...] Raghavendra Vasquez DO documented in this encounter [facility] 02-11-2024 History of Present illness Narrative [...] Attention deficit hyperactivity disorder (ADHD), combined type ([facility] 07/04/2022 Episodic mood disorder ([facility]) 07/04/2022 Generalized anxiety disorder ([facility]) 07/04/2022 Panic disorder ([facility]) 07/04/2022 Acquired scoliosis 09/09/2016 Allergic rhinitis 10/16/2019 Anxiety 01/31/2020 Asthma ([facility]) 12/31/2014 Chronic fatigue syndrome 07/03/2016 Chronic gastritis without bleeding 12/28/2022 Irritable bowel syndrome 07/03/2016 Migraine without aura and without status migrainosus, not intractable ([facility]) 09/19/2017 Mild intermittent asthma ([facility]) 02/28/2021 Primary localized osteoarthrosis of ankle and foot 03/13/2019 Vitamin D deficiency 12/28/2022 Headache 06/28/2023 Inadequate sleep hygiene 06/28/2023 Migraine ([facility]) 06/28/2023 Tenosynovitis of foot 06/28/2023 Nausea and vomiting 06/28/2023 Common migraine with intractable migraine ([facility]) 06/28/2023 Pain in limb 06/28/2023 Chronic tension-type headache, not intractable 06/28/2023 Sleep disturbance 06/28/2023 Insomnia, unspecified 06/28/2023 Other problems related to lifestyle 06/28/2023 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 08/10/2023 Resolved Ambulatory Problems Diagnosis Date Noted No Resolved Ambulatory Problems Past Medical History: Diagnosis Date Adenoma of left breast ADHD (attention deficit hyperactivity disorder) ([facility]) Anemia Back pain Common migraine ([facility]) 08/17/2015 Depression ([facility]) H/O colonoscopy H/O umbilical hernia repair Insomnia 06/25/2017 Migraines ([facility]) Nausea with vomiting 08/17/2015 Tendonitis of right hand Tension headache 08/17/2015 HISTORY PAST MEDICAL HISTORY SOCIAL HISTORY Past Medical History: Diagnosis Date Adenoma of left breast removed 2013 ADHD (attention deficit hyperactivity disorder) ([facility]) Anemia Anxiety Asthma ([facility]) Back pain Common migraine ([facility]) 08/17/2015 Depression ([facility]) H/O colonoscopy 2012 H/O umbilical hernia repair 2008 Headache 08/17/2015 Inadequate sleep hygiene 04/23/2018 Insomnia 06/25/2017 Migraine ([facility]) 03/22/2017 Migraines ([facility]) Nausea with vomiting 08/17/2015 Pain in limb [...] Sarcoidosis Mother Idania Swartz Migraines Mother Idania Swarzt Rheum arthritis Father Amandeep Moeller Depression Father [...] nursing note reviewed. Exam conducted with a sustainable systems analyst present. Vitals: Estimated body mass index is [...] Raghavendra Vasquez DO documented in this encounter [facility] 01-10-2024 History of Present illness Narrative [...] Attention deficit hyperactivity disorder (ADHD), combined type ([facility]) 07/04/2022 Episodic mood disorder ([facility]) 07/04/2022 Generalized anxiety disorder ([facility]) 07/04/2022 Panic disorder ([facility]) 07/04/2022 Acquired scoliosis 09/09/2016 Allergic rhinitis 10/16/2019 Anxiety 01/31/2020 Asthma ([facility]) 12/31/2014 Chronic fatigue syndrome 07/03/2016 Chronic gastritis without bleeding 12/28/2022 Irritable bowel syndrome 07/03/2016 Migraine without aura and without status migrainosus, not intractable ([facility]) 09/19/2017 Mild intermittent asthma ([facility]) 02/28/2021 Primary localized osteoarthrosis of ankle and foot 03/13/2019 Vitamin D deficiency 12/28/2022 Headache 06/28/2023 Inadequate sleep hygiene 06/28/2023 Migraine ([facility]) 06/28/2023 Tenosynovitis of foot 06/28/2023 Nausea and vomiting 06/28/2023 Common migraine with intractable migraine ([facility]) 06/28/2023 Pain in limb 06/28/2023 Chronic tension-type headache, not intractable 06/28/2023 Sleep disturbance 06/28/2023 Insomnia, unspecified 06/28/2023 Other problems related to lifestyle 06/28/2023 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 08/10/2023 Resolved Ambulatory Problems Diagnosis Date Noted No Resolved Ambulatory Problems Past Medical History: Diagnosis Date Adenoma of left breast ADHD (attention deficit hyperactivity disorder) ([facility]) Anemia Back pain Common migraine ([facility]) 08/17/2015 Depression ([facility]) H/O colonoscopy H/O umbilical hernia repair Insomnia 06/25/2017 Migraines ([facility]) Nausea with vomiting 08/17/2015 Tendonitis of right hand Tension headache 08/17/2015 HISTORY PAST MEDICAL HISTORY SOCIAL HISTORY Past Medical History: Diagnosis Date Adenoma of left breast removed 2013 ADHD (attention deficit hyperactivity disorder) ([facility]) Anemia Anxiety Asthma ([facility] Back pain Common migraine ([facility] [facility]) 08/17/2015 Depression ([facility]) H/O colonoscopy 2012 H/O umbilical hernia repair 2008 Headache 08/17/2015 Inadequate sleep hygiene 04/23/2018 Insomnia 06/25/2017 Migraine (CMS/HCC) 03/22/2017 Migraines ([facility]) Nausea with vomiting 08/17/2015 Pain in limb [...] nursing note reviewed. Exam conducted with a sustainable systems analyst present. Vitals: Estimated body mass index is [...] obtained without difficulty and patient was given [facility] order to have obtained. Sent [...] Raghavendra Vasquez DO documented in this encounter [facility] 01-01-2024 History of Present illness Narrative [...] visit. 20 weeks. 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 Psychosocial stressors include . SUBJECTIVE: PAST MEDICAL HISTORY: Past Medical History: Diagnosis Date Adenoma of left breast removed 2013 ADHD (attention deficit hyperactivity disorder) ([facility]) Anemia Anxiety Asthma (CMS/[facility]) Back pain Common migraine (CMS/HCC) 08/17/2015 Depression [...] and Time Memory/Concentration Short term intact and tank terminal gauger intact Insight/Judgement Fair OBJECTIVE: Visit Vitals LMP [...] Visit time :32min documented in this encounter [facility] 11-28-2023 History of Present illness Narrative [...] Attention deficit hyperactivity disorder (ADHD), combined type ([facility]) 07/04/2022 Episodic mood disorder ([facility]) 07/04/2022 Generalized anxiety disorder ([facility]) 07/04/2022 Panic disorder ([facility]) 07/04/2022 Acquired scoliosis 09/09/2016 Allergic rhinitis 10/16/2019 Anxiety 01/31/2020 Asthma ([facility]) 12/31/2014 Chronic fatigue syndrome 07/03/2016 Chronic gastritis without bleeding 12/28/2022 Irritable bowel syndrome 07/03/2016 Migraine without aura and without status migrainosus, not intractable ([facility]) 09/19/2017 Mild intermittent asthma ([facility]) 02/28/2021 Primary localized osteoarthrosis of ankle and foot 03/13/2019 Vitamin D deficiency 12/28/2022 Headache 06/28/2023 Inadequate sleep hygiene 06/28/2023 Migraine ([facility]) 06/28/2023 Tenosynovitis of foot 06/28/2023 Nausea and vomiting 06/28/2023 Common migraine with intractable migraine ([facility]) 06/28/2023 Pain in limb 06/28/2023 Chronic tension-type headache, not intractable 06/28/2023 Sleep disturbance 06/28/2023 Insomnia, unspecified 06/28/2023 Other problems related to lifestyle 06/28/2023 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 08/10/2023 Resolved Ambulatory Problems Diagnosis Date Noted No Resolved Ambulatory Problems Past Medical History: Diagnosis Date Adenoma of left breast ADHD (attention deficit hyperactivity disorder) ([facility]) Anemia Back pain Common migraine ([facility]) 08/17/2015 Depression ([facility]) H/O colonoscopy H/O umbilical hernia repair Insomnia 06/25/2017 Migraines ([facility]) Nausea with vomiting 08/17/2015 Tendonitis of right hand Tension headache 08/17/2015 HISTORY PAST MEDICAL HISTORY SOCIAL HISTORY Past Medical History: Diagnosis Date Adenoma of left breast removed 2013 ADHD (attention deficit hyperactivity disorder) ([facility]) Anemia Anxiety Asthma ([facility]) Back pain Common migraine ([facility]) 08/17/2015 Depression ([facility]) H/O colonoscopy 2013 H/O umbilical hernia repair 2008 Headache 08/17/2015 Inadequate sleep hygiene 04/23/2018 Insomnia 06/25/2017 Migraine (CMS/HCC) 03/22/2017 Migraines ([facility]) Nausea with vomiting 08/17/2015 Pain in limb [...] nursing note reviewed. Exam conducted with a sustainable systems analyst present. Vitals: Estimated body mass index is [...] or undercooked meat, and stay away from [facility]. Patient has been consulted regarding any [...] Raghavendra Vasquez DO documented in this encounter [facility] 11-27-2023 History of Present illness Narrative [...] work done. 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. Psychosocial stressors include . SUBJECTIVE: PAST MEDICAL HISTORY: Past Medical History: Diagnosis Date Adenoma of left breast removed 2013 ADHD (attention deficit hyperactivity disorder) [place] Anemia Anxiety Asthma [place] Back pain Common migraine ([facility]) 08/17/2015 Depression [place] H/O colonoscopy 2012 H/O umbilical hernia repair 2007 Headache 08/17/2015 Inadequate sleep hygiene 04/23/2018 Insomnia 06/25/2017 Migraine ([facility]) 03/22/2017 Migraines [place] Nausea with vomiting 08/17/2015 Pain in limb [...] and Time Memory/Concentration Short term intact and tank terminal gauger intact Insight/Judgement Good OBJECTIVE: Visit Vitals LMP [...] F/U 6 weeks documented in this encounter [facility] 11-01-2023 History of Present illness Narrative [...] the following prescription(s): albuterol hfa, albuterol hfa, bxqctapjik-tmkutomrvubix-oighwlox , cyanocobalamin, d3-1000, dicyclomine, fluticasone, onabotulinumtoxina, ondansetron, promethazine, sertraline, and tizanidine. Medical History: Active Ambulatory Problems Diagnosis Date Noted Attention deficit hyperactivity disorder (ADHD), combined type ([facility] 07/04/2022 Episodic mood disorder ([facility] 07/04/2022 Generalized anxiety disorder ([facility]) 07/04/2022 Panic disorder ([facility]) 07/04/2022 Acquired scoliosis 09/09/2016 Allergic rhinitis 10/16/2019 Anxiety 01/31/2020 Asthma ([facility]) 12/31/2014 Chronic fatigue syndrome 07/03/2016 Chronic gastritis without bleeding 12/28/2022 Irritable bowel syndrome 07/03/2016 Migraine without aura and without status migrainosus, not intractable ([facility] 09/19/2017 Mild intermittent asthma ([facility]) 02/28/2021 Primary localized osteoarthrosis of ankle and foot 03/13/2019 Vitamin D deficiency 12/28/2022 Headache 06/28/2023 Inadequate sleep hygiene 06/28/2023 Migraine ([facility]) 06/28/2023 Tenosynovitis of foot 06/28/2023 Nausea and vomiting 06/28/2023 Common migraine with intractable migraine ([facility]) 06/28/2023 Pain in limb 06/28/2023 Chronic tension-type headache, not intractable 06/28/2023 Sleep disturbance 06/28/2023 Insomnia, unspecified 06/28/2023 Other problems related to lifestyle 06/28/2023 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 08/10/2023 Resolved Ambulatory Problems Diagnosis Date Noted No Resolved Ambulatory Problems Past Medical History: Diagnosis Date Adenoma of left breast ADHD (attention deficit hyperactivity disorder) ([facility]) Anemia Back pain Common migraine ([facility]) 08/17/2015 Depression ([facility]) H/O colonoscopy H/O umbilical hernia repair Insomnia 06/25/2017 Migraines ([facility]) Nausea with vomiting 08/17/2015 Tendonitis of right [...] pt to schedule US w/tbh. Pt desired [place] [employer] advised pt to wait until 10 [...] An Duffy MA documented in this encounter [facility] 10-19-2023 Telephone encounter Note Pt needs a letter stating that she was seen in office on 10/17 Please Fax to [phone] [facility] 10-19-2023 Miscellaneous Notes Pt needs a letter stating that she was seen in office on 10/17 Please Fax to [phone] documented in this encounter [facility] 10-18-2023 History of Present illness Narrative [...] 2 puffs, Inhalation, Every 4 hours PRN nhqrddgfxp-pscomiuxygxdc-oxnjorpl 50-325-40 MG tablet TAKE 1 TABLET BY [...] for further guidance. documented in this encounter [facility] 10-18-2023 History of Present illness Narrative Images from the original note were not included. Subjective Tiki Moeller is a 38 y.o. female. Patient was to be seen for botox injections but she just found out that she is . She was not planning but not preventing . She still has to see her pillowcase cleaner. She has been receiving the Botox injections [...] during those pregnancies. She has having some turbo operator sickness with nausea. Objective Neurological Exam [...] Return to clinic: documented in this encounter [facility] 08-03-2021 Note FINDINGS: Sonographic evaluation targeted to the painful palpable areas within the right breast. Multiple subcentimeter benign simple cysts within the right upper quadrant. Mild periareolar ductal dilatation (3-4 mm diameter). No suspicious solid nodule or mass. IMPRESSION: BI RADS 2 : BENIGN FINDINGS Report reported and signed by Alexei Smith on 08/03/2021 [id number] [facility] Propulsion Motor And Generator Repairer 05-11-2021 Evaluation note Encounter Date Diagnosis Assessment Notes Apr, Encounter for immunization (ICD-10 - Z23) Patient presents for COVID-19 vaccination #2. Pre-screening form answers evaluated with patient. Patient denies current illness or allergic reaction to component of COVID-19 vaccine. Patient provided with current copy of EUA. [facility] Other Evaluation note* Diagnosis Attention deficit hyperactivity disorder (ADHD), combined type (CMS/HCC) Generalized anxiety disorder (CMS/HCC) Generalized anxiety disorder documented in this encounter [facility] HealthcareEvaluation note* Diagnosis First trimester state, [...] History tibial and fibular sesmoid 8-20 15 [facility] Other Summary Purpose Family History No Family History Records FoundNo Family History Records FoundNo Family History Records FoundNo Family History Records FoundNo Family History Records Found Advance Directives No Advanced Directives Records FoundNo Advanced Directives Records FoundNo Advanced Directives Records FoundNo Advanced Directives Records FoundNo Advanced Directives Records Found Additional Source Comments INFORMATION SOURCE (unrecogn ized section and content) DATE CREATED AUTHOR 05/25/2021 [facility] DATE CREATED AUTHOR AUTHOR'S ORGANIZ ATION 08/04/2021 [facility] Me dical Specialist DATE CREATED AUTHOR AUTHOR'S ORGANIZ ATION 11/23/2021 [facility] DATE CREATED AUTHOR AUTHOR'S ORGANIZ ATION 12/19/2022 [facility] DATE CREATED AUTHOR AUTHOR'S ORGANIZ ATION 04/10/2024 [facility] dical Specialists EPIC REASON FOR VISIT (unrecogniz ed section and content) Reason Comments Routine Visit Reason Comments Med Management Follow-up Reason Comments Well Women Visit Routine Visit STI Screening Reason Comments Nausea/Vomiting In Reason Comments Amenorrhea Reason Comments Migraine Care Teams (unrecognized sec tion and content) Animal Care Taker Relationship Specialty Start Date End Date Ysabel Cabral MD [address] [facility] [place] [address] PCP - General Family Medicine 07/29/22 Ale Zaldivar MD [address] [facility] [place] [address] PCP - [facility] 05/28/23 Animal Care Taker Relationship Specialty Start Date End Date Ysabel Cabral MD [address] [facility] [address] PCP - General Family Medicine 07/29/22 Ale Zaldivar MD [address] [facility] [place] [address] PCP - [facility] 05/28/23 Animal Care Taker Relationship Specialty Start Date End Date Ysabel Cabral MD [address] [place] [address] PCP - General [facility] 07/29/22 Ale Zaldivar MD [address] [place] [address] PCP - [facility] 05/28/23 Animal Care Taker Relationship Specialty Start Date End Date Ysabel Cabral MD [address] [place] [address] PCP - [facility] 07/29/22 Ale Zaldivar MD [address] [place] [address] PCP - [facility] 05/28/23 Animal Care Taker Relationship Specialty Start Date End Date Ysabel Cabral MD [address] [place] [address] PCP - General [facility] 07/29/22 Ale Zaldivar MD [address] [place] [address] PCP - [facility] 05/28/23 Animal Care Taker Relationship Specialty Start Date End Date Ysabel Cabral MD [address] [place] [address] PCP - General [facility] 07/29/22 Ale Zaldivar MD [address] [place] [address] PCP - [facility] 05/28/23 Animal Care Taker Relationship Specialty Start Date End Date Ysabel Cabral MD [address] [place] [address] PCP - General Family [facility] 07/29/22 Chloe Carvajal, MANAGER ZONE [address] [place] [address] PCP - [facility] 11/27/23 Animal Care Taker Relationship Specialty Start Date End Date Ysabel Cabral MD [address] [place] [address] PCP - General [facility] 07/29/22 Chloe Carvajal, MANAGER ZONE [address] [place] [address] PCP - [facility] 11/27/23 Animal Care Taker Relationship Specialty Start Date End Date Ysabel Cabral MD [address] [place] [address] PCP - General [facility] 07/29/22 Chloe Carvajal, MANAGER ZONE [address] [place] [address] PCP - [facility] 11/27/23 Animal Care Taker Relationship Specialty Start Date End Date Ysabel Cabral MD [address] [place] [address] PCP - General Family Medicine 07/29/22 Chloe Carvajal, MANAGER ZONE PCP - [facility] 11/27/23 Animal Care Taker Relationship Specialty Start Date End Date Ysabel Cabral MD [address] [place] [address] PCP - General Family [facility] 07/29/22 Chloe Carvajal NP PCP - [facility] 11/27/23 Animal Care Taker Relationship Specialty Start Date End Date Ysabel Cabral MD [address] [facility] [address] PCP - General [facility] 07/29/22 Ale Zaldivar MD [address] [place] [address] PCP - [facility] 05/28/23 Animal Care Taker Relationship Specialty Start Date End Date Ysabel aCbral MD [address] [facility] [address] PCP - [facility] 07/29/22 Ale Zaldivar MD [address] [facility] [address] PCP - [facility] 05/28/23 Animal Care Taker Relationship Specialty Start Date End Date Ysabel Cabral MD [address] [facility] [address] PCP - General [facility] 07/29/22 Ale Zaldivar MD [address] [facility] [address] PCP - [facility] 05/28/23 Animal Care Taker Relationship Specialty Start Date End Date Ysabel Cabral MD [address] [facility] [address] PCP - General Family Medicine 07/29/22 Chloe Carvajal MANAGER ZONE PCP - [facility] 11/27/23 Animal Care Taker Relationship Specialty Start Date End Date Ysabel Cabral MD [address] [place] [address] PCP - General Family Medicine 07/29/22 lAe Zaldivar MD [address] [place] [address] PCP - [facility] 05/28/23 Animal Care Taker Relationship Specialty Start Date End Date Ysabel Cabral MD [address] [place] [address] PCP - General Family [facility] 07/29/22 Ale Zaldivar MD [address] [place] [address] PCP - [facility] 05/28/23 Animal Care Taker Relationship Specialty Start Date End Date Ysabel Cabral MD [address] [place] [address] PCP - General Family Medicine 07/29/22 Chloe Carvajal MANAGER ZONE PCP - [facility] 11/27/23 Animal Care Taker Relationship Specialty Start Date End Date Ysabel Cabral MD [address] [place] [address] PCP - General Family Medicine 07/29/22 Chloe Carvajal MANAGER ZONE PCP - [facility] 11/27/23 Animal Care Taker Relationship Specialty Start Date End Date Ysable Cabral MD [address] [place] [address] PCP - General Family Medicine 07/29/22 Chloe Carvajal NP PCP - [facility] 11/27/23 Animal Care Taker Relationship Specialty Start Date End Date Ysabel Cabral MD [address] [place] [address] PCP - [facility] Family Medicine 07/29/22 Chloe Carvajal NP PCP - [facility] 11/27/23 Animal Care Taker Relationship Specialty Start Date End Date Ysabel Cabral MD [address] [place] [address] PCP - [facility] 07/29/22 Chloe Carvajal MANAGER ZONE PCP - [facility] 11/27/23 Teresa Ornelas, HIGH HEEL BUILDER-CYBER SYSTEMS ENGINEER [address] [facility] [address] [place] [address] Nurse Practitioner Psychiatry 03/14/24 Animal Care Taker Relationship Specialty Start Date End Date Ysabel Cabral MD [address] [place] [address] PCP - [facility] 07/29/22 Chloe Carvajal NP PCP - [facility] 11/27/23 Teresa Ornelas, HIGH HEEL BUILDER-CYBER SYSTEMS ENGINEER [address] [facility] [address] [place] [address] Nurse Practitioner Psychiatry 03/14/24 Animal Care Taker Relationship Specialty Start Date End Date Ysabel Cabral MD [address] [facility] [place] [address] PCP - General Family Medicine 07/29/22 Chloe Carvajal, MANAGER ZONE PCP - [facility] 11/27/23 Teresa Ornelas, HIGH HEEL BUILDER-CYBER SYSTEMS ENGINEER [address] [address] Nurse Practitioner Psychiatry 03/14/24 Animal Care Taker Relationship Specialty Start Date End Date Ysabel Cabral MD [address] [facility] [place] [address] PCP - General [facility] 07/29/22 Ysabel Cabral MD [address] [facility] [address] PCP - [facility] 02/27/24 Teresa Ornelas, HIGH HEEL BUILDER-CYBER SYSTEMS ENGINEER [address] [place] [address] Nurse Practitioner Psychiatry 03/14/24 Animal Care Taker Relationship Specialty Start Date End Date Ysabel Cabral MD [address] [facility] [address] PCP - General Family Medicine 07/29/22 Ysabel Cabral MD [address] [facility] [address] PCP - [facility] 02/27/24 Teresa Ornelas HIGH HEEL BUILDER-CYBER SYSTEMS ENGINEER [address] [facility] [address] [place] [address] Nurse Practitioner Psychiatry 03/14/24 Animal Care Taker Relationship Specialty Start Date End Date Ysabel Cabral MD [address] [place] [address] PCP - General [facility] Medicine 07/29/22 Ysabel Cabral MD [address] [place] [address] PCP - [facility] 02/27/24 Jo AnnTreesa Iniguez APRN-[facility] [address] [facility] [address] [place] [address] Nurse Practitioner Psychiatry 03/14/24 FOR RECORDS PERTAINING [...] BE BASED ON THE PRIMARY CLINICAL RECORDS. [facility] [employer] provides no warranty or guarantee of the accuracy or completeness of information in this document.
[2024-04-25 13:09] VITALS: BP 122/74; PULSE 102
== END 2024-04-25 13:36 | disposition home or self-care (01) ==
LOC: FBCO 00:13 → FBC 13:03
PROVIDERS: PCP Family Medicine; Visit Provider Obstetrics & Gynecology
DX: O09.523 Supervision of elderly multigravida, third trimester (principal)
CPT/HCPCS: 59025

== ENCOUNTER 2024-04-29 00:48 | Outpatient (OUT) | payer OTHER, SELFPAY ==
--- OUTSIDE RECORDS SUMMARY | 2024-04-29 00:51 | XMS_ITS | CCD ---
Author Organization [facility] Care Team Providers Care Unemployment Claims Adjudicator Name Role Phone Vicky Joe Unavailable WEST, DR SANON Admitting Unavailable KARASIK, DR SANON Attending Unavailable KARASIK, DR SANON Consulting Unavailable KARASIK, DR SANON Attending Unavailable KARASIK, DR SANON Consulting Unavailable KARASIK, DR SANON Admitting Unavailable CHLOE CARVAJAL Attending Unavailable CHLOE CARVAJAL Consulting Unavailable CHLOE CARVAJAL Admitting Unavailable Ysabel Cabral MD Primary Care Provider Ale Zaldivar MD Unavailable Dillon KARATE BLACK BELT, Chloe Swift Unavailable Dillon KARATE BLACK BELT, Chloe R Unavailable Jo Ann-Nossejasen RACK MAKER-PROCESS ENGINEERING INTERNTeresa Unavailable Ysabel Cabral MD Unavailable RAGHAVENDRA VASQUEZ [...] source) Aspirin Drug Allergy shortness of breath [employer] Other (20 sources) Diclofenac Drug Allergy 07-05-19 Unknown [employer] Other (20 sources) Ibuprofen Drug Allergy 07-05-19 Unknown [employer] Other (20 sources) Naproxen Drug Allergy 07-05-19 Unknown [employer] Other (20 sources) NSAIDs Drug allergy 07-05-19 Unknown [employer] Other (1 source) Aspirin Drug Allergy 02-26-18 90 [facility] (1 source) cyclobenzaprine Drug Allergy 01-10-20 15 [facility] (1 source) Diclofenac Drug Allergy 01-10-20 15 [facility] (1 source) Ibuprofen Drug Allergy 08-04-19 16 [facility] (1 source) NSAIDs Drug allergy (disorder) 01-02-20 14 [facility] (20 sources) Aluminum aspirin Drug Allergy 07-05-19 23 [facility] (20 sources) Amitriptyline Drug Allergy 03-22-19 18 [facility] (20 sources) cyclobenzaprine Drug Allergy 01-24-20 16 [facility] (20 sources) Lamotrigine Allergy to substance 07-05-19 23 [facility] (20 sources) meloxicam Drug Allergy 07-05-19 23 Unknown [facility] (20 sources) Sertraline Drug Allergy 01-01-20 24 [facility] Medications Current Medications Medication Drug [...] 3 01/10/2024 Active take 1 capsule by [facility] every twenty-four hours Omeprazole [...] 20 tablet 1 09/24/2023 11/28/2023 Discontinued (Other) [id number] 200 actuat albuterol 0.09 mg/actuat metered dose [...] US OB BPP W NON-STRESS on 04-22-2024 [place] [id number] Ultrasound Report Signed Patient: TIKI MOELLER MR#: [id number] : 1985 Acct:[id number] Age/Sex: 38 / F ADM Date: 04/22/24 Loc: US Attending Dr: Veda Sarmiento Ordering Physician: Veda Sarmiento Date of Service: 04/22/24 Procedure(s): US OB BPP w non-stress Accession Number(s): [id number] cc: Veda Sarmiento; YSABEL CABRAL [place] [address] Patient Name: TIKI MOELLER MRN: [facility]:[id number] date: 1985 Sex: F Assigned Patient Location: [facility] Current Patient Location: Accession/Order Number: [id number] Exam Date: 04/22/2024 23:02 Report Date: 04/22/2024 23:05 At the request of: VEDA SARMIENTO Procedure: US OB BPP w non-stress Biophysical profile. Reason for exam: Advanced maternal age. COMPARISON: BPP 04/15/2024. TECHNIQUE: Transabdominal imaging of the gravid uterus was obtained. FINDINGS: Assistant Finance Manager reports the biophysical profile is 8 out of 8. JT is normal at 13.9 cm. heart rate 156 bpm. US/US OB BPP w non-stress IMPRESSION: BPP 8 out of 8. Impression dictated by: Alexei Ibrahim Jr., D.O.04/22/2024 11:05 PM Dictation Location: [place] [address] Electronically authenticated by: [id number] Y Date: 04/22/2024 23:05 Dictated By: Alexei Ibrahim M.D. Signed By: 04/22/242307 DD/ 04 TD/TT: Ceramist: [facility] Radiology, Radiologist, MD - 04/22/[address] [address] Ultrasound Report Signed Patient: TIKI MOELLER MR#: [id number] : 1985 Acct:[id number] Age/Sex: 38 / F ADM Date: 04/22/24 Loc: US Attending Dr: Veda Sarmiento Ordering Physician: Veda Sarmiento Date of Service: 04/22/24 Procedure(s): US OB BPP w non-stress Accession Number(s): [id number] cc: Veda Sarmiento; YSABEL CABRAL [place] [address] Patient Name: TIKI MOELLER MRN: [id number] date: 1985 Sex: F Assigned Patient Location: [facility] Current Patient Location: Accession/Order Number: [id number] Exam Date: 04/22/2024 23:02 Report Date: 04/22/2024 23:05 At the request of: VEDA SARMIENTO Procedure: US OB BPP w non-stress Biophysical profile. Reason for exam: Advanced maternal age. COMPARISON: BPP 04/15/2024. TECHNIQUE: Transabdominal imaging of the gravid uterus was obtained. FINDINGS: Assistant Finance Manager reports the biophysical profile is 8 out of 8. JT is normal at 13.9 cm. heart rate 156 bpm. US/US OB BPP w non-stress IMPRESSION: BPP 8 out of 8. Impression dictated by: Alexei Ibrahim Jr., D.O.04/22/2024 11:05 PM Dictation Location: [employer] Electronically authenticated by: [id number] Y Date: 04/22/2024 23:05 Dictated By: Alexei Ibrahim M.D. Signed By: 04/22/242307 DD/ 04 TD/TT: Ceramist: [facility] Radiology Study observation (narrative) [facility] US OB BPP W NON-STRESS Ordered By: Radiologist Radiology on 04-22-2024 [facility] Work Phone: US OB BPP W NON-STRESS on 04-15-2024 [place] [address] Ultrasound Report Signed Patient: TIKI MOELLER MR#: [id number] : 1985 Acct:[id number] Age/Sex: 38 / F ADM Date: 04/15/24 Loc: [facility] 250-[address]: Raghavendra Vasquez D.O. Ordering Physician: Raghavendra Vasquez D.O. Date of Service: 04/15/24 Procedure(s): US OB BPP w non-stress Accession Number(s): [id number] cc: YSABEL CABRAL ; Raghavendra Vasquez D.O. The [place] [address] Patient Name: TIKI MOELLER MRN: [facility]:[id number] date: 1985 Sex: F Assigned Patient Location: [facility] Current Patient Location: [facility] Accession/Order Number: [id number] Exam Date: 04/15/2024 16:26 Report Date: 04/15/2024 16:31 At the request of: RAGHAVENDRA VASQUEZ DO Procedure: US OB BPP w non-stress BIOPHYSICAL PROFILE: CLINICAL INFORMATION: Multigravida of advanced maternal age TECHNIQUE: Multiple ultrasonographic scans of the lower abdomen and pelvis were obtained. The fetus is in the cephalic presentation. The measurements are consistent with a 33 week 3 day gestation. The heart rate [id number] beats per minute. FINDINGS: TONE: 1 or [...] Shelli Mcghee M.D.04/15/2024 4:31 PM Dictation Location: [place] [address] Electronically authenticated by: [id number] Y Date: 04/15/2024 16:31 Dictated By: Shelli Mcghee M.D. Signed By: 04/15/24 1633 DD/ 163 TD/TT: Ceramist: [facility] Radiology, Radiologist, - 04/15/2024 [place] [address] Ultrasound Report Signed Patient: TIKI MOELLER MR#: [id number] : 1985 Acct:[id number] Age/Sex: 38 / F ADM Date: 04/15/24 Loc: [facility] 250-[address]: Raghavendra Vasquez D.O. Ordering Physician: Raghavendra Vasquez D.O. Date of Service: 04/15/24 Procedure(s): US OB BPP w non-stress Accession Number(s): [id number] cc: YSABEL CABRAL ; Raghavendra Vasquez D.O. The [place] [address] Patient Name: TIKI MOELLER MRN: [facility]:[id number] date: 1985 Sex: F Assigned Patient Location: [facility] Current Patient Location: [facility] Accession/Order Number: [id number] Exam Date: 04/15/2024 16:26 Report Date: 04/15/2024 16:31 At the request of: RAGHAVENDRA VASQUEZ DO Procedure: US OB BPP w non-stress BIOPHYSICAL PROFILE: CLINICAL INFORMATION: Multigravida of advanced maternal age TECHNIQUE: Multiple ultrasonographic scans of the lower abdomen and pelvis were obtained. The fetus is in the cephalic presentation. The measurements are consistent with a 33 week 3 day gestation. The heart rate [id number] beats per minute. FINDINGS: TONE: 1 or [...] Shelli Mcghee M.D.04/15/2024 4:31 PM Dictation Location: [place] [address] Electronically authenticated by: [id number] Y Date: 04/15/2024 16:31 Dictated By: Shelli Mcghee M.D. Signed By: 04/15/24 163 DD/ 163 TD/TT: Ceramist: [facility] Radiology Study observation (narrative) [facility] US OB BPP W NON-STRESS Ordered By: Radiologist Radiology on 04-15-2024 [facility] Work Phone: US OB GROWTHon 04-15-2024 [place] [address] Ultrasound Report Signed Patient: TIKI MOELLER MR#: [id number] : 1985 Acct:[id number] Age/Sex: 38 / F ADM Date: 04/15/24 Loc: [place] [address]: Raghavendra Vasquez D.O. Ordering Physician: Raghavendra Vasquez D.O. Date of Service: 04/15/24 Procedure(s): US OB growth Accession Number(s): [id number] cc: YSABEL CABRAL Corey D.O. The [place] [address] Patient Name: TIKI MOELLER MRN: [facility]:[id number] date: 1985 Sex: F Assigned Patient Location: [facility] Current Patient Location: [facility] Accession/Order Number: [id number] Exam Date: 04/15/2024 16:31 Report Date: 04/15/2024 [...] Shelli Mcghee M.D.04/15/2024 4:37 PM Dictation Location: [employer] Electronically authenticated by: [id number] Y Date: 04/15/2024 16:37 Dictated By: Shelli Mcghee M.D. Signed By: 04/15/24 1640 DD/ 1637 TD/TT: Ceramist: [facility] Radiology, Radiologist, - 04/15/2024 [place] [address] Ultrasound Report Signed Patient: TIKI MOELLER MR#: [id number] : 1985 Acct:[id number] Age/Sex: 38 / F ADM Date: 04/15/24 Loc: [facility] 250-[address]: Raghavendra Vasquez D.O. Ordering Physician: Raghavendra Vasquez D.O. Date of Service: 04/15/24 Procedure(s): US OB growth Accession Number(s): [id number] cc: YSABEL CABRAL ; Raghavendra Vasquez D.O. The [place] [id number] Patient Name: TIKI MOELLER MRN: [facility]:[id number] date: 1985 Sex: F Assigned Patient Location: [facility] Current Patient Location: [facility] Accession/Order Number: [id number] Exam Date: 04/15/2024 16:31 Report Date: 04/15/2024 [...] Shelli Mcghee M.D.04/15/2024 4:37 PM Dictation Location: [place] [address] Electronically authenticated by: [id number] Y Date: 04/15/2024 16:37 Dictated By: Shelli Mcghee M.D. Signed By: 04/15/24 1640 DD/ 1637 TD/TT: Ceramist: [facility] Radiology Study observation (narrative) [facility] US OB GROWTHOrdered By: Liang ologry Radiology on 04-15-2024 [facility] Work Phone: Urinalysis macro (dipstick) panel (U)on 04-08-2024 Bilirubin, UA Negative Negative - 4(70) +++ mg/dL [facility] Blood, UA Negative Negative - 50 Armand/mcL [facility] Clarity, UA Clear [facility] Color, UA Yellow [facility] Glucose, UA Negative Negative - 2000(110) ++++ mg/dL [facility] Interpretation and review of laboratory results Abnormal [facility] Ketones, UA Negative Negative - 160(16) ++++ mg/dL [facility] Leukocytes, UA Negative Negative - 500+++ Doe/mcL [facility] Nitrite, UA Negative Negative - Positive [facility] pH, UA 7 5 - 9 [facility] Protein, UA Trace Negative - 2000(20) ++++ mg/dL [facility] Spec Grav, UA 1.025 1 - 1.03 [facility] Urobilinogen, UA 1.0 0.2 - 12 mg/dL [facility] US OB GROWTHon 03-25-2024 [place] [address] Ultrasound Report Signed Patient: TIKI MOELLER MR#: [id number] : 1985 Acct:[id number] Age/Sex: 38 / F ADM Date: 03/25/24 Loc: US Attending Dr: Raghavendra Vasquez D.O. Ordering Physician: Raghavendra Vasquez D.O. Date of Service: 03/25/24 Procedure(s): US OB growth Accession Number(s): [id number] cc: YSABEL CABRAL ; Raghavendra Vasquez D.O. [place] [address] Patient Name: TIKI MOELLER MRN: [facility]:[id number] date: 1985 Sex: F Assigned Patient Location: Current Patient Location: US Accession/Order Number: [id number] Exam Date: 03/25/2024 11:02 Report Date: 03/25/2024 [...] Signed By: 03/25/24 1150 DD/ 1147 TD/TT: Ceramist: [facility] Radiology, Radiologist, - 03/25/2024 [place] [address] Ultrasound Report Signed Patient: TIKI MOELLER MR#: [id number] : 1985 Acct:[id number] Age/Sex: 38 / F ADM Date: 03/25/24 Loc: US Attending Dr: Raghavendra Vasquez D.O. Ordering Physician: Raghavendra Vasquez D.O. Date of Service: 03/25/24 Procedure(s): US OB growth Accession Number(s): [id number] cc: YSABEL CABRAL Corey D.O. The [place] [address] Patient Name: TIKI MOELLER MRN: [facility]:[id number] date: 1985 Sex: F Assigned Patient Location: US Current Patient Location: US Accession/Order Number: [id number] Exam Date: 03/25/2024 11:02 Report Date: 03/25/2024 [...] By: Ramírez Nava M.D. Signed By: 03/25/24 115 DD/ 1147 TD/TT: Ceramist: [facility] Radiology Study observation (narrative) [facility] OB GROWTHOrdered By: Liang ologist Radiology on 03-25-2024 [facility] Work Phone: Urinalysis macro (dipstick) panel (U)on 03-25-2024 Bilirubin, UA Positive Negative - 4(70) +++ mg/dL [facility] Blood, UA Negative Negative - 50 Armand/mcL [facility] Clarity, UA Clear [facility] Color, UA Yellow [facility] Glucose, UA Negative Negative - 1999(110) ++++ mg/dL [facility] Interpretation and review of laboratory results Abnormal [facility] Ketones, UA Positive Negative - 160(16) ++++ mg/dL [facility] Leukocytes, UA Negative Negative - 500+++ Doe/mcL [facility] Nitrite, UA Positive Negative - Positive [facility] pH, UA 6.5 5 - 9 [facility] Protein, UA Positive Negative - 1999(20) ++++ mg/dL [facility] Spec Grav, UA 1.025 1 - 1.03 [facility] Urobilinogen, UA 1.0 0.2 - 12 mg/dL [facility] Urinalysis macro (dipstick) panel (U)on 03-11-2024 Bilirubin, UA Negative Negative - 4(70) +++ mg/dL [facility] Blood, UA Negative Negative - 50 Armand/mcL [facility] Clarity, UA Clear [facility] Color, UA Yellow [facility] Glucose, UA Negative Negative - 1999(110) ++++ mg/dL [facility] Interpretation and review of laboratory results Abnormal [facility] Ketones, UA Negative Negative - 160(16) ++++ mg/dL [facility] Leukocytes, UA Negative Negative - 500+++ Doe/mcL [facility] Nitrite, UA Negative Negative - Positive [facility] pH, UA 7 5 - 9 [facility] Protein, UA Positive Negative - 1999(20) ++++ mg/dL [facility] Comment on above: 30 Spec Grav, UA 1.025 1 - 1.03 [facility] Urobilinogen, UA 0.2 0.2 - 12 mg/dL [facility] ALL CBC WITH AUTO DIFFon BASOPHILS ABSOLUTE AUTO 0 [facility] Basophils/100 WBC (Bld) 0.2 % 0.2 - 2.0 % [facility] Eosinophils/100 WBC (Bld) 0.6 % Low 0.9 - 7.0 % [facility] Erythrocyte distribution width (RBC) [Ratio] 13 % 11.0 - 15.0 % [facility] Hematocrit (Bld) [Volume fraction] 32.2 % Low 36.0 - 48.0 % [facility] Hemoglobin (Bld) [Mass/Vol] 10.3 g/dL Low 12.0 - 16.0 g/dL [facility] IMMATURE GRANULOCYTES ABS AUTO 0.06 High [facility] Immature granulocytes/100 WBC (Bld) 0.6 % High 0.0 - 0.5 % [facility] Interpretation and review of laboratory results Abnormal [facility] LYMPHOCYTES ABSOLUTE AUTO 1.8 [facility] Lymphocytes/100 WBC (Bld) 19.1 % Low 20.5 - 60.0 % [facility] MCH (RBC) [Entitic mass] 25.9 pg Low 26.7 - 34.0 pg [facility] MCHC (RBC) [Mass/Vol] 32 g/dL 29.9 - 35.2 g/dL [facility] MCV (RBC) [Entitic vol] 81.1 fL 81.0 - 99.0 fL [facility] MONOCYTES ABSOLUTE AUTO 0.5 [facility] Monocytes/100 WBC (Bld) 5.5 % 1.7 - 12.0 % [facility] NEUTROPHILS ABSOLUTE AUTO 7 High [facility] Neutrophils/100 WBC (Bld) 74 % 43.0 - 75.0 % [facility] Platelet mean volume (Bld) [Entitic vol] 10.7 fL 9.5 - 13.5 fL [facility] EO # 0.1 [facility] PLT 238 [facility] RBC 3.97 Low [facility] WBC 9.4 [facility] UA (CLEAN/CATCH) PROCESS ENGINEERING INTERN/LA RO IF IND.on 03-07-2024 BILIRUBIN URINE Negative NEGATIVE [facility] BLOOD URINE Negative NEGATIVE [facility] Clarity (U) CLEAR CLEAR [facility] Color (U) YELLOW YELLOW [facility] GLUCOSE URINE UA Negative NEGATIVE mg/dL [facility] Interpretation and review of laboratory results Abnormal [facility] Ketones Ql (U) TRACE Abnormal NEGATIVE mg/dL [facility] Leukocyte esterase Test strip Ql (U) Negative NEGATIVE [facility] NITRITE URINE Negative NEGATIVE [facility] pH (U) 7.5 [pH] 5.0 - 9.0 [facility] PROTEIN URINE TRACE NEG/TRACE mg/dL [facility] SPECIFIC GRAVITY URINE 1.025 1.005 - 1.025 [facility] URINE MICROSCOPIC INDICATED NO [facility] UROBILINOGEN URINE 1.0 EU/dL 0.2 - 1.0 EU/dL [facility] ([facility]stick) panel (U)on 02-11-2024 Bilirubin, UA Negative Negative - 4(70) +++ mg/dL [facility] Blood, UA Negative Negative - 50 Armand/mcL [facility] Clarity, UA Clear [facility] Color, UA Yellow [facility] Glucose, UA Negative Negative - 1999(110) ++++ mg/dL [facility] Interpretation and review of laboratory results Abnormal [facility] Ketones, UA Negative Negative - 160(16) ++++ mg/dL [facility] Leukocytes, UA Negative Negative - 500+++ Doe/mcL [facility] Nitrite, UA Negative Negative - Positive [facility] pH, UA 7.5 5 - 9 [facility] Protein, UA Trace Negative - 1999(20) ++++ mg/dL [facility] Spec Grav, UA 1.015 1 - 1.03 [facility] Urobilinogen, UA 0.2 0.2 - 12 mg/dL [facility] IGP,APTIMA HPV,AGE GDLNon AGE GDLN ACOG TESTING Note . [facility] Comment on above: TESTS RESULT FLAG UN ITS REF RANGE LAB Clinician Provided Cytology Information Source.............Cervix Other.............. No. of containers..01 ThinPrep Vial Age Algo ACOG [place]... FLAG LEGEND: L-Low Normal,H-High Normal,LL-Alert Low,HH-Alert High <-Panic Low,>-Panic High,A-Abnormal,AA-Critical Abnormal Performed at: 01 =[address] [place] [address] Judith Ventura MD, HPV APTIMA Negative Negative [facility] Comment on above: This nucleic acid am plification test detects fourteen high- risk HPV types (16,18,31,33,35,39,45,51,52,56,58,59,66,68) without differentiation. Performed at: =[address] [id number] Pool Manager: Judith Ventura MD, Phone: [phone] Performed at: [address] [place] [id number] Pool Manager: Judith Ventura MD, Phone: [phone] IGP, APTIMA HPV, RFX 16/18,45 Note . [facility] Comment on above: TESTS RESULT FLAG UN ITS REF RANGE LAB DIAGNOSIS: 02 NEGATIVE FOR INTRAEPITHELIAL LESION OR MALIGNANCY. Specimen adequacy: 02 Satisfactory for evaluation. Endocervical and/or squamous metaplastic cells (endocervical component) are present. Performed by: 02 Ashli Frank, Charge Out Clerk (ASCP) . 02 Note: Note 02 The [...] High,A-Abnormal,AA-Critical Abnormal Performed at: 02 [facility] [address] [place] [address] Judith Ventura MD, SPATULA-ALONE CERVIX [facility] RECURRENT VAGINITIS (HTRX)on 01-11-2024 ATOPOBIUM VAGINAE 0 [facility] ATOPOBIUM VAGINAE Not detected [facility] BVAB 2,3 (BACTERIAL VAGINOSIS ASSOCIATED BACTERIA 2, 3); MOBILUNCUS SPP 0 [facility] BVAB 2,3 (BACTERIAL VAGINOSIS ASSOCIATED BACTERIA 2, 3); MOBILUNCUS SPP Not detected [facility] LOC ALBICANS, PARAPSILOSIS, TROPICALIS 0 [facility] LOC ALBICANS, PARAPSILOSIS, TROPICALIS Not detected [facility] LOC GLABRATA 0 [facility] LOC GLABRATA Not detected [facility] LOC KRUSEI 0 [facility] LOC KRUSEI Not detected [facility] CHLAMYDIA TRACHOMATIS 0 [facility] CHLAMYDIA TRACHOMATIS Not detected [facility] GARDNERELLA VAGINALIS 0 [facility] GARDNERELLA VAGINALIS Not detected [facility] MEGASPHAERA (TYPES 1, 2) 0 [facility] MEGASPHAERA (TYPES 1, 2) Not detected [facility] MYCOPLASMA GENITALIUM 0 [facility] MYCOPLASMA GENITALIUM Not detected [facility] NEISSERIA GONORRHOEAE 0 [facility] NEISSERIA GONORRHOEAE Not detected [facility] TRICHOMONAS VAGINALIS 0 [facility] TRICHOMONAS VAGINALIS Not detected [facility] Urinalysis macro (dipstick) panel (U)on 01-10-2024 Bilirubin, UA Negative Negative - 4(70) +++ mg/dL [facility] Blood, UA Negative Negative - 50 Armand/mcL [facility] Clarity, UA Clear [facility] Color, UA Yellow [facility] Glucose, UA Negative Negative - 1999(110) ++++ mg/dL [facility] Interpretation and review of laboratory results Abnormal [facility] Ketones, UA Positive Negative - 160(16) ++++ mg/dL [facility] Leukocytes, UA Negative Negative - 500+++ Doe/mcL [facility] Nitrite, UA Negative Negative - Positive [facility] pH, UA 7 5 - 9 [facility] Protein, UA Negative Negative - 1999(20) ++++ mg/dL [facility] Spec Grav, UA 1.015 1 - 1.03 [facility] Urobilinogen, UA 1.0 0.2 - 12 mg/dL [facility] ALL CBC WITH AUTO DIFFon BASOPHILS ABSOLUTE AUTO 0.0 [facility] Basophils/100 WBC (Bld) 0.2 % 0.2 - 2.0 % [facility] Eosinophils/100 WBC (Bld) 2.3 % 0.9 - 7.0 % [facility] Erythrocyte distribution width (RBC) [Ratio] 12.3 % 11.0 - 15.0 % [facility] Hematocrit (Bld) [Volume fraction] 37.1 % 36.0 - 48.0 % [facility] Hemoglobin (Bld) [Mass/Vol] 12.3 g/dL 12.0 - 16.0 g/dL [facility] IMMATURE GRANULOCYTES ABS AUTO 0.04 High [facility] Immature granulocytes/100 WBC (Bld) 0.4 % 0.0 - 0.5 % [facility] Interpretation and review of laboratory results Abnormal [facility] LYMPHOCYTES ABSOLUTE AUTO 2.7 [facility] Lymphocytes/100 WBC (Bld) 28.4 % 20.5 - 60.0 % [facility] MCH (RBC) [Entitic mass] 28.0 pg 26.7 - 34.0 pg [facility] MCHC (RBC) [Mass/Vol] 33.2 g/dL 29.9 - 35.2 g/dL [facility] MCV (RBC) [Entitic vol] 84.3 fL 81.0 - 99.0 fL [facility] MONOCYTES ABSOLUTE AUTO 0.5 [facility] Monocytes/100 WBC (Bld) 5.0 % 1.7 - 12.0 % [facility] NEUTROPHILS ABSOLUTE AUTO 6.0 [facility] Neutrophils/100 WBC (Bld) 63.7 % 43.0 - 75.0 % [facility] Platelet mean volume (Bld) [Entitic vol] 10.4 fL 9.5 - 13.5 fL [facility] # 0.2 [facility] PLT 253 [facility] RBC 4.40 [facility] WBC 9.4 [facility] Urinalysis macro (dipstick) panel (U)on 11-28-2023 Bilirubin, UA Negative Negative - 4(70) +++ mg/dL [facility] Blood, UA Negative Negative - 50 Armand/mcL [facility] Clarity, UA Clear [facility] Color, UA Yellow [facility] Glucose, UA Negative Negative - 2000(110) ++++ mg/dL [facility] Interpretation and review of laboratory results Normal [facility] Ketones, UA Negative Negative - 160(16) ++++ mg/dL [facility] Leukocytes, UA Negative Negative - 500+++ Doe/mcL [facility] Nitrite, UA Negative Negative - Positive [facility] pH, UA 7.0 5 - 9 [facility] Protein, UA Negative Negative - 1999(20) ++++ mg/dL [facility] Spec Grav, UA 1.025 1 - 1.03 [facility] Urobilinogen, UA 1.0 0.2 - 12 mg/dL [facility] URINE CULTURE, ROUTINEon Bacteria identified Cx Nom (U) Urine Culture, Routine [facility] Bacteria identified Cx Nom (U) Culture shows less than 10,000 colony forming units of bacteria per [facility] Bacteria identified Cx Nom (U) milliliter of urine. This colony count is not generally considered [facility] Bacteria identified Cx Nom (U) to be clinically significant. [facility] Bacteria identified Cx Nom (U) Performed at: [facility] B[facility] identified Cx Nom (U) [address] [place] [address] [id number] [facility] Bacteria identified Cx Nom (U) Pool Manager: Michael Berry PhD, Phone: [phone] [facility] HCG ( test) Ql (U)o n 11-01-2023 Interpretation and review of laboratory results Abnormal [facility] Preg Test, Ur Positive [facility] Urinalysis macro (dipstick) panel (U)on 11-01-2023 Bilirubin, UA Negative Negative - 4(70) +++ mg/dL [facility] Blood, UA Negative Negative - 50 Armand/mcL [facility] Clarity, UA Clear [facility] Color, UA Yellow [facility] Glucose, UA Negative Negative - 1999(110) ++++ mg/dL [facility] Interpretation and review of laboratory results Normal [facility] Ketones, UA Negative Negative - 160(16) ++++ mg/dL [facility] Leukocytes, UA Negative Negative - 500+++ Doe/mcL [facility] Nitrite, UA Negative Negative - Positive [facility] pH, UA 6.0 5 - 9 [facility] Protein, UA Negative Negative - 1999(20) ++++ mg/dL [facility] Spec Grav, UA 1.020 1 - 1.03 [facility] Urobilinogen, UA 0.2 0.2 - 12 mg/dL [facility] XR CERVICAL SPINE AP/LAT/FLE [...] [Mass/Vol] 8.9 mg/dL Normal (8.6 - 10.6) [facility] Comment on above: Performed By: #### C BC/2A, ESRCRP, CCP, HBC-M, HBSAG, HCV, CA, MG, RHF, URCA #### [facility] [address] [facility], [id number] CBC, ALB, ALT, AST, ALK AND CREAon 12-18-2022 Albumin [Mass/Vol] 5.0 g/dL Normal (3.5 - 5.0) [facility] Comment on above: Order Comment: FACIL ITY: [facility] [id number] Performed By: #### C BC/2A, ESRCRP, CCP, HBC-M, HBSAG, HCV, CA, MG, RHF, URCA #### [facility] [address] [facility], [id number] ALK PHOS 60 U/L Normal (38 - 126) [facility] Comment on above: Order Comment: FACIL ITY: [facility] [id number] Performed By: #### C BC/2A, ESRCRP, CCP, HBC-M, HBSAG, HCV, CA, MG, RHF, URCA #### [facility] [address] [facility], [id number] ALT [Catalytic activity/Vol] 34 U/L Normal (1 - 35) [facility] Comment on above: Order Comment: FACIL ITY: [facility] [id number] Performed By: #### C BC/2A, ESRCRP, CCP, HBC-M, HBSAG, HCV, CA, MG, RHF, URCA #### [facility] [address] [facility], [id number] AST [Catalytic activity/Vol] 34 U/L Normal (15 - 46) [facility] Comment on above: Order Comment: FACIL ITY: [facility] [id number] Performed By: #### C BC/2A, ESRCRP, CCP, HBC-M, HBSAG, HCV, CA, MG, RHF, URCA #### [facility] [address] [facility], [id number] Creatinine [Mass/Vol] 0.61 mg/dL Normal (0.52 - 1.04) [facility] Comment on above: Order Comment: FACIL ITY: [facility] [id number] Performed By: #### C BC/2A, ESRCRP, CCP, HBC-M, HBSAG, HCV, CA, MG, RHF, URCA #### [facility] [address] [facility], [address] GFR- AMER 135.1 ML/M1.7 Normal (60.0 - 140.1) [facility] Comment on above: Order Comment: FACIL ITY: [facility] [id number] Performed By: #### C BC/2A, ESRCRP, CCP, HBC-M, HBSAG, HCV, CA, MG, RHF, URCA #### [facility] [address] [facility], [address] GFR-NON AFRIC-AMER 111.6 ML/M1.7 Normal (60.0 - 115.8) [facility] Comment on above: Order Comment: FACIL ITY: [facility] [id number] Performed By: #### C BC/2A, ESRCRP, CCP, HBC-M, HBSAG, HCV, CA, MG, RHF, URCA #### [facility] [address] [facility], [id number] Hematocrit (Bld) [Volume fraction] 41.5 % Normal (37.0 - 47.0) [facility] Comment on above: Order Comment: FACIL ITY: [facility] [id number] Performed By: #### C BC/2A, ESRCRP, CCP, HBC-M, HBSAG, HCV, CA, MG, RHF, URCA #### [facility] [address] [facility], [id number] Hemoglobin (Bld) [Mass/Vol] 13.5 g/dL Normal (12.0 - 16.0) [facility] Comment on above: Order Comment: FACIL ITY: [facility] [id number] Performed By: #### C BC/2A, ESRCRP, CCP, HBC-M, HBSAG, HCV, CA, MG, RHF, URCA #### [facility] [address] [facility], [id number] MCH (RBC) [Entitic mass] 28.7 pg Normal (27.0 - 33.0) [facility] Comment on above: Order Comment: FACIL ITY: [facility] [id number] Performed By: #### C BC/2A, ESRCRP, CCP, HBC-M, HBSAG, HCV, CA, MG, RHF, URCA #### [facility] [address] [facility], [address] MCHC (RBC) [Mass/Vol] 32.5 g/dL Normal (30.0 - 37.0) [facility] Comment on above: Order Comment: FACIL ITY: [facility] [id number] Performed By: #### C BC/2A, ESRCRP, CCP, HBC-M, HBSAG, HCV, CA, MG, RHF, URCA #### [facility] [address] [facility], [address] MCV (RBC) [Entitic vol] 88.1 fL Normal (81.0 - 99.0) [facility] Comment on above: Order Comment: FACIL ITY: [facility] [id number] Performed By: #### C BC/2A, ESRCRP, CCP, HBC-M, HBSAG, HCV, CA, MG, RHF, URCA #### [facility] [address] [facility], [address] PLT 282 x10^3ul Normal (130 - 400) [facility] Comment on above: Order Comment: FACIL ITY: [facility] O [id number] Performed By: #### C BC/2A, ESRCRP, CCP, HBC-M, HBSAG, HCV, CA, MG, RHF, URCA #### [facility] [address] [facility], [address] RBC 4.71 x10^6ul Normal (4.20 - 5.40) [facility] Comment on above: Order Comment: FACIL ITY: [facility] [id number] Performed By: #### C BC/2A, ESRCRP, CCP, HBC-M, HBSAG, HCV, CA, MG, RHF, URCA #### [facility] [address] [facility], [address] WBC 6.47 x10^3ul Normal (3.80 - 10.60) [facility] Comment on above: Order Comment: FACIL ITY: [facility] [id number] Performed By: #### C BC/2A, ESRCRP, CCP, HBC-M, HBSAG, HCV, CA, MG, RHF, URCA #### [facility] [address] [facility], [address] HEP B CORE AB, IGMon 023 HEPATITIS B CORE ANTIBODY, IGM Negative Normal (NEG - NEG) [facility] Comment on above: Performed By: #### C BC/2A, ESRCRP, CCP, HBC-M, HBSAG, HCV, CA, MG, RHF, URCA #### [facility] [address] [facility], [address] HEP B HERACLIO AGon 12-18-2022 HEP B HERACLIO AG Negative Normal (NEG - NEG) [facility] ic Comment on above: Performed By: #### C BC/2A, ESRCRP, CCP, HBC-M, HBSAG, HCV, CA, MG, RHF, URCA #### [facility] [address] [facility], [id number] HEP C ANTIBODYon 12-18-2022 HEPATITIS C ANTIBODY Negative Normal (NEG - NEG) [facility] Comment on above: Performed By: #### C BC/2A, ESRCRP, CCP, HBC-M, HBSAG, HCV, CA, MG, RHF, URCA #### [facility] [address] [facility], [address] MAGNESIUMon 12-18-2022 Magnesium [Mass/Vol] 2.0 mg/dL Normal (1.6 - 2.3) [facility] Comment on above: Performed By: #### C BC/2A, ESRCRP, CCP, HBC-M, HBSAG, HCV, CA, MG, RHF, URCA #### [facility] [address] [facility], [address] RF FACTORon 12-18-2022 RF FACTOR <9 Normal (0 - 12) [facility] Comment on above: Result Comment: RF F ACTOR = LESS THAN 9 IU/ML RF FACTOR MIN. DETECTION = 9 IU/ML. Performed By: #### C BC/2A, ESRCRP, CCP, HBC-M, HBSAG, HCV, CA, MG, RHF, URCA #### [facility] [address] [facility], [address] SED RATE - CRPon 12-18-2022 CRP EXTENDED RANGE 1.40 MG/L Normal (0.00 - 3.20) [facility] Comment on above: Performed By: #### C BC/2A, ESRCRP, CCP, HBC-M, HBSAG, HCV, CA, MG, RHF, URCA #### [facility] [address] [facility], [id number] SED RATE WEST. 5 MM/HR Normal (0 - 25) [facility] Comment on above: Performed By: #### C BC/2A, ESRCRP, CCP, HBC-M, HBSAG, HCV, CA, MG, RHF, URCA #### [facility] [address] [facility], [address] URIC ACIDon 12-18-2022 Urate [Mass/Vol] 4.2 mg/dL Normal (2.5 - 6.2) [facility] Comment on above: Performed By: #### C BC/2A, ESRCRP, CCP, HBC-M, HBSAG, HCV, CA, MG, RHF, URCA #### [facility] [address] [facility], [id number] PAP ACOG PANEL 2: 30 to 65on 11-16-2021 . . Normal [facility] Comment on above: Result Comment: Perf ormed at: WB Performed By: #### [id number] #### [facility] [address] [place] [address] Dr. Sierra Almonte Age Gdln ACOG Testing 30-65 Normal [facility] Comment on above: Performed By: #### 4 [id number] #### [facility] [address] [address] [address] Sierra Almonte DIAGNOSIS: Comment Normal [facility] Comment on above: Result Comment: NEGA TIVE FOR INTRAEPITHELIAL LESION OR MALIGNANCY. Performed at: WB Performed By: #### 4 [id number] #### [facility] [address] [address] [address] Sierra Almonte HPV Aptima Negative Normal Negative [facility] Comment on above: Result Comment: This nucleic acid amplification test detects fourteen high-risk HPV types (16,18,31,33,35,39,45,51,52,56,58,59,66,68) without differentiation. Performed at: =G Performed By: #### [id number] #### [facility] [address] [address] [address] Sierra Almonte Methodology: Comment Normal [facility] Comment on above: Result Comment: This liquid based ThinPrep(R) pap test was screened with the use of an image guided system. Performed at: WB Performed By: #### 4 [id number] #### [facility] [address] [place] [address] Dr. Sierra Almonte Note: Comment Normal [facility] Comment on above: Result Comment: The Pap smear is a screening test designed to aid in the detection of premalignant and malignant conditions of the uterine cervix. It is not a diagnostic procedure and should not be used as the sole means of detecting cervical cancer. Both false-positive and false-negative reports do occur. . Performed at: WB Performed By: #### 4 [id number] #### [facility] [address] [place] [address] Dr. Sierra Almonte Performed by: Comment Normal [facility] Comment on above: Result Comment: Alison Nava, Charge Out Clerk (ASCP) Performed at: WB Performed By: #### [id number] #### [facility] [address] [place] [address] Dr. Sierra Almonte Specimen adequacy: Comment Normal [facility] Comment on above: Result Comment: Sati sfactory for evaluation. Endocervical and/or squamous metaplastic cells (endocervical component) are present. Performed at: WB Performed By: #### 4 [id number] #### [facility] [address] [place] [address] Dr. Sierra Almonte US Thyroidon 07-14-2021 US [...] by Alexei Smith on 07/14/2021 1000 Normal [facility] Complete Blood Count with Au to Diffon 07-12-2021 Basophils (Bld) [#/Vol] 0.02 10*3/uL Normal 0.00-0.20 [facility] Comment on above: Performed By: #### C BCAD, RF, VITD, ESR, TSH reflex FT4, CMP, FT4 #### [facility] [address], [place] [id number] Basophils/100 WBC (Bld) 0.3 % Normal [facility] Comment on above: Performed By: #### C BCAD, RF, VITD, ESR, TSH reflex FT4, CMP, FT4 #### [facility] [address], [place] [id number] Eosinophils (Bld) [#/Vol] 0.08 10*3/uL Normal 0.02-0.50 [facility] Comment on above: Performed By: #### C BCAD, RF, VITD, ESR, TSH reflex FT4, CMP, FT4 #### [facility] [address], [place] [id number] Eosinophils/100 WBC (Bld) 1.2 % Normal [facility] Comment on above: Performed By: #### C BCAD, RF, VITD, ESR, TSH reflex FT4, CMP, FT4 #### [facility] [address], [place] [id number] Erythrocyte distribution width (RBC) [Ratio] 13.8 % Normal 11.0-15.0 [facility] Comment on above: Performed By: #### C BCAD, RF, VITD, ESR, TSH reflex FT4, CMP, FT4 #### [facility] [address], [place] [id number] Hematocrit (Bld) [Volume fraction] 39.6 % Normal 35.0-47.0 [facility] Comment on above: Performed By: #### C BCAD, RF, VITD, ESR, TSH reflex FT4, CMP, FT4 #### [facility] [address], [place] [id number] Hemoglobin (Bld) [Mass/Vol] 12.9 g/dL Normal 11.6-15.5 [facility] Comment on above: Performed By: #### C BCAD, RF, VITD, ESR, TSH reflex FT4, CMP, FT4 #### [facility] [address], [place] [id number] Lymphocytes (Bld) [#/Vol] 1.3 10*3/uL Normal 0.9-3.9 [facility] Comment on above: Performed By: #### C BCAD, RF, VITD, ESR, TSH reflex FT4, CMP, FT4 #### [facility] [address], [place] [id number] Lymphocytes/100 WBC (Bld) 20.3 % Normal [facility] Comment on above: Performed By: #### C BCAD, RF, VITD, ESR, TSH reflex FT4, CMP, FT4 #### [facility] [address], [place] [id number] MCH (RBC) [Entitic mass] 28.3 pg Normal 27.0-33.0 [facility] Comment on above: Performed By: #### C BCAD, RF, VITD, ESR, TSH reflex FT4, CMP, FT4 #### [facility] [address], [place] [id number] MCHC (RBC) [Mass/Vol] 32.6 g/dL Normal 32.0-36.0 [facility] Comment on above: Performed By: #### C BCAD, RF, VITD, ESR, TSH reflex FT4, CMP, FT4 #### [facility] [address], [place] [id number] MCV (RBC) [Entitic vol] 87 fL Normal 80-100 [facility] Comment on above: Performed By: #### C BCAD, RF, VITD, ESR, TSH reflex FT4, CMP, FT4 #### [facility] [address], [place] [id number] Monocytes (Bld) [#/Vol] 0.4 10*3/uL Normal 0.2-0.9 [facility] Comment on above: Performed By: #### C BCAD, RF, VITD, ESR, TSH reflex FT4, CMP, FT4 #### [facility] [address], [place] [id number] Monocytes/100 WBC (Bld) 5.8 % Normal [facility] Comment on above: Performed By: #### C BCAD, RF, VITD, ESR, TSH reflex FT4, CMP, FT4 #### [facility] [address], [place] [id number] Neutrophils (Bld) [#/Vol] 4.7 10*3/uL Normal 1.5-7.8 [facility] Comment on above: Performed By: #### C BCAD, RF, VITD, ESR, TSH reflex FT4, CMP, FT4 #### [facility] [address], [place] [id number] Neutrophils/100 WBC (Bld) 72.1 % Normal [facility] Comment on above: Performed By: #### C BCAD, RF, VITD, ESR, TSH reflex FT4, CMP, FT4 #### [facility] [address], [place] [id number] Platelet mean volume (Bld) [Entitic vol] 11.00 fL Normal 7.50-12.50 [facility] Comment on above: Performed By: #### C BCAD, RF, VITD, ESR, TSH reflex FT4, CMP, FT4 #### [facility] [address], [place] [id number] Platelets (Bld) [#/Vol] 271 10*3/uL Normal 140-400 [facility] Comment on above: Performed By: #### C BCAD, RF, VITD, ESR, TSH reflex FT4, CMP, FT4 #### [facility] [address], [place] [id number] RBC (Bld) [#/Vol] 4.56 10*6/uL Normal 3.90-5.20 [facility] Comment on above: Performed By: #### C BCAD, RF, VITD, ESR, TSH reflex FT4, CMP, FT4 #### [facility] [address], [place] [id number] RDW-SD 43.5 fL Normal 37.0-50.0 [facility] Comment on above: Performed By: #### C BCAD, RF, VITD, ESR, TSH reflex FT4, CMP, FT4 #### [facility] [address], [place] [id number] WBC (Bld) [#/Vol] 6.5 10*3/uL Normal 3.8-11.0 [facility] Comment on above: Performed By: #### C BCAD, RF, VITD, ESR, TSH reflex FT4, CMP, FT4 #### [facility] [address], [place] [id number] [facility] 07-12-2021 Albumin [Mass/Vol] 4.9 g/dL Normal 3.6-5.1 [facility] Comment on above: Performed By: #### C BCAD, RF, VITD, ESR, TSH reflex FT4, CMP, FT4 #### [facility] [address], [place] [id number] Albumin/Globulin [Mass ratio] 2.2 {ratio} Normal 1.0-2.5 [facility] Comment on above: Performed By: #### C BCAD, RF, VITD, ESR, TSH reflex FT4, CMP, FT4 #### [facility] [address], [place] [id number] ALP [Catalytic activity/Vol] 63 U/L Normal 35-119 [facility] Comment on above: Performed By: #### C BCAD, RF, VITD, ESR, TSH reflex FT4, CMP, FT4 #### [facility] [address], [place] [id number] ALT [Catalytic activity/Vol] 26 U/L Normal 6-33 [facility] Comment on above: Result Comment: 01/26 Female reference range changed. Performed By: #### C BCAD, RF, VITD, ESR, TSH reflex FT4, CMP, FT4 #### [facility] [address], [place] [id number] Anion gap [Moles/Vol] 18 mmol/L Normal 12-20 [facility] Comment on above: Result Comment: Effe ctive 03/03/2019 reference range changed. Performed By: #### C BCAD, RF, VITD, ESR, TSH reflex FT4, CMP, FT4 #### [facility] [address], [place] [id number] AST [Catalytic activity/Vol] 26 U/L Normal 9-34 [facility] Comment on above: Performed By: #### C BCAD, RF, VITD, ESR, TSH reflex FT4, CMP, FT4 #### [facility] [address], [place] [id number] BUN/CREA 10 Ratio Normal 6-22 [facility] Comment on above: Performed By: #### C BCAD, RF, VITD, ESR, TSH reflex FT4, CMP, FT4 #### [facility] [address], [place] [id number] Calcium [Mass/Vol] 10.0 mg/dL Normal 8.6-10.2 [facility] Comment on above: Performed By: #### C BCAD, RF, VITD, ESR, TSH reflex FT4, CMP, FT4 #### [facility] [address], [place] [id number] Chloride [Moles/Vol] 105 mmol/L Normal 98-107 [facility] Comment on above: Performed By: #### C BCAD, RF, VITD, ESR, TSH reflex FT4, CMP, FT4 #### [facility] [address], [place] [id number] CO2 [Moles/Vol] 21 mmol/L Normal 20-31 [facility] Comment on above: Performed By: #### C BCAD, RF, VITD, ESR, TSH reflex FT4, CMP, FT4 #### [facility] [address], [place] [id number] Creatinine [Mass/Vol] 0.6 mg/dL Normal 0.6-1.4 [facility] Comment on above: Performed By: #### C BCAD, RF, VITD, ESR, TSH reflex FT4, CMP, FT4 #### [facility] [address], [place] [id number] eGFRAA 132 mL/min/1.73m2 Normal >60 [facility] Comment on above: Performed By: #### C BCAD, RF, VITD, ESR, TSH reflex FT4, CMP, FT4 #### [facility] [address], [place] [id number] eGFRNAA 109 mL/min/1.73m2 Normal >60 [facility] Comment on above: Performed By: #### C BCAD, RF, VITD, ESR, TSH reflex FT4, CMP, FT4 #### [facility] [address], [place] [id number] Globulin (S) [Mass/Vol] 2.2 g/dL Normal 1.9-3.7 [facility] Comment on above: Performed By: #### C BCAD, RF, VITD, ESR, TSH reflex FT4, CMP, FT4 #### [facility] [address], [place] [id number] Glucose [Mass/Vol] 86 mg/dL Normal 65-99 [facility] Comment on above: Result Comment: For FASTING Glucose --- ADA reference ranges: Normal 65-99 mg/dl Prediabetes 100-125 Diabetes >/= 126 Performed By: #### C BCAD, RF, VITD, ESR, TSH reflex FT4, CMP, FT4 #### [facility] [address], [place] [id number] Potassium [Moles/Vol] 4.1 mmol/L Normal 3.5-5.5 [facility] Comment on above: Performed By: #### C BCAD, RF, VITD, ESR, TSH reflex FT4, CMP, FT4 #### [facility] [address], [place] [id number] Protein [Mass/Vol] 7.1 g/dL Normal 6.1-8.1 [facility] Comment on above: Performed By: #### C BCAD, RF, VITD, ESR, TSH reflex FT4, CMP, FT4 #### [facility] [address], [place] [id number] Sodium [Moles/Vol] 140 mmol/L Normal 135-146 [facility] Comment on above: Performed By: #### C BCAD, RF, VITD, ESR, TSH reflex FT4, CMP, FT4 #### [facility] [address], [place] [id number] TBIL <0.3 Normal [facility] Comment on above: Performed By: #### C BCAD, RF, VITD, ESR, TSH reflex FT4, CMP, FT4 #### [facility] [address], [place] [id number] Urea nitrogen [Mass/Vol] 7 mg/dL Normal 7-25 [facility] Comment on above: Performed By: #### C BCAD, RF, VITD, ESR, TSH reflex FT4, CMP, FT4 #### [facility] [address], [place] [id number] Free T4on 07-12-2021 Free T4 [Mass/Vol] 0.93 ng/dL Normal 0.80-1.80 [facility] Comment on above: Performed By: #### C BCAD, RF, VITD, ESR, TSH reflex FT4, CMP, FT4 #### [facility] [address], [place] [id number] Q - PASQUALE SCREEN IFA W/RFL TIT ER AND PATTERNon 07-12-2021 PASQUALE SCREEN, IFA Negative Normal NEGATIVE [facility] Comment on above: Order Comment: [facility] performed at: QPT, [facility], [address] [place] [address] Rd, [address] [facility], [place], [address], [employer]: Leonard Turpin MD [facility] Date/Time: [facility] [...] AC-0: Negative International Consensus on PASQUALE Patterns (https://doi.org/10.1515/bghx-6145-0534) For additional information, please refer to http://education.Pick1/faq/YJB657 (This link is being provided for informational/ educational purposes only.) Performed By: #### 2 49 #### [facility] [address] [place] [address] RBC Sedimentation Rateon ESR (Bld) [Velocity] 8.00 mm/h Normal 0.00-20.00 [facility] [place] Specialist Comment on above: Performed By: #### C BCAD, RF, VITD, ESR, TSH reflex FT4, CMP, FT4 #### [facility] [address] [place], [place] [id number] Rheumatoid Factoron 07-13-19 22 RF <10 Normal [facility] Comment on above: Performed By: #### C BCAD, RF, VITD, ESR, TSH reflex FT4, CMP, FT4 #### [facility] [address] [place], [place] [id number] TSH w/ Reflex to Free T4on 0 07-12-2021 TSH 0.321 uIU/mL Low 0.400-4.500 [facility] Comment on above: Performed By: #### C BCAD, RF, VITD, ESR, TSH reflex FT4, CMP, FT4 #### [facility] [address] [place] [id number] Vitamin D 25-OHon 07-12-2021 VIT D 25 [place] 19 ng/ml Low >29 [facility] Comment on above: Result Comment: Ade min D Status Deficiency <20 ng/mL Insufficiency 20-29 ng/mL Optimal 30-100 ng/mL Possible Toxicity >=150 ng/mL Performed By: #### C BCAD, RF, VITD, ESR, TSH reflex FT4, CMP, FT4 #### [facility] [address] [place], [place] [id number] Comprehensive Metabolic Empo n 04-11-2021 Albumin [Mass/Vol] 4.6 g/dL Normal 3.2-5.5 [facility] Comment on above: Performed By: #### E BS CMP, EBS LIPID #### [facility] [address] [id number] [facility] Albumin/Globulin [Mass ratio] 1.9 {ratio} Normal [facility] Comment on above: Performed By: #### E BS CMP, EBS LIPID #### [facility] [address] [id number] [facility] ALP [Catalytic activity/Vol] 43 U/L Normal 32-92 [facility] Comment on above: Performed By: #### E BS CMP, EBS LIPID #### [facility] [address] [place] [address] [facility] ALT [Catalytic activity/Vol] 17 U/L Normal 10-60 [facility] Comment on above: Performed By: #### E BS CMP, EBS LIPID #### [facility] [address] [place] [address] [place] AST [Catalytic activity/Vol] 20 U/L Normal 10-42 [facility] Comment on above: Performed By: #### E BS CMP, EBS LIPID #### [facility] [address] [place] [address] [place] Bilirubin [Mass/Vol] 1.1 mg/dL Normal 0.3-1.2 [facility] Comment on above: Performed By: #### E BS CMP, EBS LIPID #### [facility] [address] [id number] [place] Calcium [Mass/Vol] 9.6 mg/dL Normal 8.2-10.2 [facility] Comment on above: Performed By: #### E BS CMP, EBS LIPID #### [facility] [address] [place] [address] [place] Chloride [Moles/Vol] 102 mmol/L Normal 95-114 [facility] Comment on above: Performed By: #### E BS CMP, EBS LIPID #### [address] CO2 [Moles/Vol] 21.4 mmol/L Low 22.0-30.0 [facility] Comment on above: Performed By: #### E BS CMP, EBS LIPID #### [address] Creatinine [Mass/Vol] 0.71 mg/dL Normal 0.44-1.03 [facility] Comment on above: Performed By: #### E BS CMP, EBS LIPID #### [address] Estimated GFR ( Michelle > 60 Normal [facility] Comment on above: Result Comment: GFR estimated reference range: According to KDOQI guidelines, <60 ml/min/1.73m2 is sufficient to diagnose a patient with chronic kidney disease. Performed By: #### E BS CMP, EBS LIPID #### [address] Estimated GFR (Non- Am > 60 Normal [facility] Comment on above: Performed By: #### E BS CMP, EBS LIPID #### [place] [address] [place] Globulin (S) [Mass/Vol] 2.4 g/dL Normal [facility] Comment on above: Performed By: #### E BS CMP, EBS LIPID #### [place] [address] [place] Glucose [Mass/Vol] 76 mg/dL Normal 70-100 [facility] Comment on above: Performed By: #### E BS CMP, EBS LIPID #### [place] [address] [place] Potassium [Moles/Vol] 3.3 mmol/L Low 3.5-5.1 [facility] Comment on above: Performed By: #### E BS CMP, EBS LIPID #### [facility] [address] Protein [Mass/Vol] 7.0 g/dL Normal 6.1-7.9 [facility] Comment on above: Performed By: #### E BS CMP, EBS LIPID #### [facility] [address] Sodium [Moles/Vol] 136 mmol/L Normal 136-146 [facility] Comment on above: Performed By: #### E BS CMP, EBS LIPID #### [facility] [address] Urea nitrogen [Mass/Vol] 5 mg/dL Low 9-23 [facility] Comment on above: Performed By: #### E BS CMP, EBS LIPID #### [facility] [address] Lipid Profileon 04-11-2021 Cholesterol [Mass/Vol] 189 mg/dL Normal 140-200 [facility] Comment on above: Result Comment: Chol less than 200 mg/dl low risk Chol 201-239 mg/dl borderline risk Chol 240 mg/dl and greater high risk Performed By: #### E BS CMP, EBS LIPID #### [facility] [address] [id number] [facility] Cholesterol in HDL [Mass/Vol] 69 mg/dL Normal 35-85 [facility] Comment on above: Result Comment: HDL CHOL ATP-III CLASSIFICATION Cardiovascular Risk HDL > or equal to 60 mg/dL LOW HDL < 40 mg/dL HIGH Performed By: #### E BS CMP, EBS LIPID #### [facility] [address] Cholesterol.total/C holesterol in HDL [Mass ratio] 2.7 {ratio} Normal <5.0 [facility] Comment on above: Result Comment: PERF ORMED BY: [place] [address] PATHOLOGIST CHOPPER GUN OPERATOR PAT PETERS M.D. Performed By: #### E BS CMP, EBS LIPID #### [facility] [address] [place] [address] [place] LDL Cholesterol,Calcula shadi 107 mg/dL High 0-100 [facility] Comment on above: Result Comment: LDL ATP III CLASSIFICATION LDL less than 100 mg/dL Optimal LDL 100-129 mg/dL Near or above optimal LDL 130-159 mg/dL Borderline high LDL 160-189 mg/dL High LDL greater than 189 mg/dL Very high Performed By: #### E BS CMP, EBS LIPID #### [facility] [address] Triglyceride w/Reflex 64 mg/dL Normal 35-149 [facility] Comment on above: Result Comment: TRIG ATP III CLASSIFICATION TRIG less than 150 mg/dL Normal TRIG 150-199 mg/dL Borderline high TRIG 200-500 mg/dL High TRIG greater than 500 mg/dL Very high Standard traceable to the Center for Disease Conrtrol and Prevention (CDC) test method. Performed By: #### E BS CMP, EBS LIPID #### [facility] [address] VLDL CHOLESTEROL 12 mg/dL Normal [facility] Comment on above: Performed By: #### E BS CMP, EBS LIPID #### [facility] [address] Covid-19 PCR (CVDTBH)on SARS-CoV-2 (COVID-19) RNA ERIC+probe Ql (Unsp spec) Detected Critically abnormal NOT DETECTED [facility] Comment on above: Result Comment: This test is not yet approved or cleared by the [place] FDA. When there are no FDA-approved or cleared tests available, and other criteria are met, FDA can make tests available under an emergency access mechanism called an Emergency Use Authorization (EUA). The EUA for this test is supported by the Asset Protection Detective of Health and Human Service's (HHS's) declaration [...] used). Performed By: #### C VDTBH #### [facility] [address] [place] [address] Dr. Sierra Almonte CHLAMYDIA/GONOCOCCUS ERIC (SW AB/URINE/PAPon 12-14-2020 Chlamydia trachomatis, ERIC Negative Normal Negative [facility] Comment on above: Performed By: #### C T/NGNA #### [facility] [address] [place] [address] Dr. Sierra Almonte Neisseria gonorrhoeae, ERIC Negative Normal Negative [facility] Comment on above: Performed By: #### C T/NGNA #### [facility] [address] [place] [address] Dr. Sierra Almonte VAGINITIS/VAGINOSIS DNA PROB Andrew 12-11-2020 Loc species Negative Normal Negative [facility] Comment on above: Performed By: #### V AGINT #### [facility] [address] [place] [address] Dr. Sierra lAmonte Gardnerella vaginalis Positive Abnormal Negative [facility] Comment on above: Performed By: #### V AGINT #### [facility] [address] [place] [address] Dr. Sirera Almonte Trichomonas vaginalis Negative Normal Negative [facility] Comment on above: Performed By: #### V AGINT #### [facility] [address] [place] [address] Dr. Sierra Almonte Vital Signs Date Time Vital Sign Value Performing Clinician Faci lity 04-08-2024 11:58-0500 Body mass index (BMI) [Ratio] 28.48 kg/m2 [employer] Work Phone: [facility] 04-08-2024 11:58-0500 Body weight 72.94 kg [employer] Work Phone: [facility] 04-08-2024 11:58-0500 Diastolic blood pressure 74 mm[Hg] [employer] Work Phone: [facility] 04-08-2024 11:58-0500 Systolic blood pressure 110 mm[Hg] Raghavendra Christina DO Work Phone: [facility] 04-02-2024 11:03-0500 Body mass index (BMI) [Ratio] 27.99 kg/m2 Teresa Jo Ann-Nossek [employer]INE[employer] Work Phone: [facility] 04-02-2024 11:03-0500 Body weight 71.67 kg Teresa Jo Ann-Nossek [employer] MAK[employer]-PROCESS ENGINEERING INTERN Work Phone: [facility] 04-02-2024 11:03-0500 Diastolic blood pressure 72 mm[Hg] Teresa Jo Ann-Nossek [employer] MAK[employer]-PROCESS ENGINEERING INTERN Work Phone: [facility] 04-02-2024 11:03-0500 Heart rate 105 /min Teresa Jo Ann-Nossek [employer] MAK[employer]-PROCESS ENGINEERING INTERN Work Phone: [facility] 04-02-2024 11:03-0500 Systolic blood pressure 122 mm[Hg] Teresa Jo Ann-Nossek [employer] MAK[employer]-PROCESS ENGINEERING INTERN Work Phone: [facility] 03-25-2024 10:19-0500 Body mass index (BMI) [Ratio] 27.63 kg/m2 Raghavendra Christina DO Work Phone: [facility] 03-25-2024 10:19-0500 Body weight 70.76 kg Raghavendra Christina DO Work Phone: [facility] 03-25-2024 10:19-0500 Diastolic blood pressure 68 mm[Hg] Raghavendra Christina DO Work Phone: [facility] 03-25-2024 10:19-0500 Systolic blood pressure 100 mm[Hg] Raghavendra Christina DO Work Phone: [facility] 03-11-2024 10:10-0500 Body mass index (BMI) [Ratio] 27.95 kg/m2 Raghavendra Christina DO Work Phone: [facility] 03-11-2024 10:10-0500 Body weight 71.58 kg Raghavendra Christina DO Work Phone: [facility] 03-11-2024 10:10-0500 Diastolic blood pressure 68 mm[Hg] Raghavendra Christina DO Work Phone: [facility] 03-11-2024 10:10-0500 Systolic blood pressure 104 mm[Hg] Raghavendra Christina DO Work Phone: [facility] 02-13-2024 13:14-0500 Body height 160 cm Emerita Gillmor [employer] Work Phone: [facility] 02-13-2024 13:14-0500 Body mass index (BMI) [Ratio] 26.93 kg/m2 Emerita Remediosmor [employer] Work Phone: [facility] 02-13-2024 13:14-0500 Body weight 68.95 kg Emerita Remediosmor [employer] Work Phone: [facility] 02-13-2024 13:14-0500 Diastolic blood pressure 72 mm[Hg] Emerita Remediosmor [employer] Work Phone: [facility] 02-13-2024 13:14-0500 Heart rate 109 /min Emerita Remediosmor [employer] Work Phone: [facility] 02-13-2024 13:14-0500 Systolic blood pressure 119 mm[Hg] Emerita Remediosmor [employer] Work Phone: [facility] 02-11-2024 10:19-0500 Body mass index (BMI) [Ratio] 27.3 kg/m2 Raghavendra Christina DO Work Phone: [facility] 02-11-2024 10:19-0500 Body weight 71.58 kg Raghavendra Christina DO Work Phone: [facility] 02-11-2024 10:19-0500 Diastolic blood pressure 70 mm[Hg] Raghavendra Christina DO Work Phone: [facility] 02-11-2024 10:19-0500 Systolic blood pressure 120 mm[Hg] Raghavendra Christina DO Work Phone: [facility] 01-10-2024 10:44-0500 Body mass index (BMI) [Ratio] 26.3 kg/m2 Raghavendra Christina DO Work Phone: [facility] 01-10-2024 10:44-0500 Body weight 68.95 kg Raghavendra Christina DO Work Phone: [facility] 01-10-2024 10:44-0500 Diastolic blood pressure 74 mm[Hg] Raghavendra Christina DO Work Phone: [facility] 01-10-2024 10:44-0500 Systolic blood pressure 116 mm[Hg] Raghavendra Christina DO Work Phone: [facility] 01-01-2024 11:40-0500 Body mass index (BMI) [Ratio] 25.78 kg/m2 Teresa Jo Ann-Nossek [employer] MAK[employer]-PROCESS ENGINEERING INTERN Work Phone: [facility] 01-01-2024 11:40-0500 Body weight 67.59 kg Teresa Jo Ann-Nossek [employer] MAK[employer]-PROCESS ENGINEERING INTERN Work Phone: [facility] 01-01-2024 11:40-0500 Diastolic blood pressure 82 mm[Hg] Teresa Jo Ann-Nossek [employer] MAK[employer]-PROCESS ENGINEERING INTERN Work Phone: [facility] 01-01-2024 11:40-0500 Heart rate 99 /min Teresa Jo Ann-Nossek [employer]ACK MAKER-PROCESS ENGINEERING INTERN Work Phone: [facility] 01-01-2024 11:40-0500 Systolic blood pressure 100 mm[Hg] Teresa Jo Ann-Nossek [employer] MAK[employer]-PROCESS ENGINEERING INTERN Work Phone: [facility] 11-28-2023 14:53-0400 Body mass index (BMI) [Ratio] 25.57 kg/m2 Raghavendra Christina DO Work Phone: [facility] 11-28-2023 14:53-0400 Body weight 67.04 kg Raghavendra Christina DO Work Phone: [facility] 11-28-2023 14:53-0400 Diastolic blood pressure 74 mm[Hg] Raghavendra Valdezo DO Work Phone: [facility] 11-28-2023 14:53-0400 Systolic blood pressure 114 mm[Hg] Raghavendra Christina DO Work Phone: [facility] 11-01-2023 15:16-0400 Body mass index (BMI) [Ratio] 25.6 kg/m2 Nom Nurse [facility] 11-01-2023 15:16-0400 Body weight 67.13 kg Nom Nurse [facility] 10-18-2023 11:32-0400 Body height 161.9 cm Ysabel Cabral MD Work Phone: [facility] 10-18-2023 11:32-0400 Body mass index (BMI) [Ratio] 26.05 kg/m2 Ysabel Cabral MD Work Phone: [facility] 10-18-2023 11:32-0400 Body weight 68.31 kg Ysabel Cabral MD Work Phone: [facility] 10-18-2023 11:32-0400 Diastolic blood pressure 76 mm[Hg] Ysabel Cabral MD Work Phone: [facility] 10-18-2023 11:32-0400 Heart rate 92 /min Ysabel Cabral MD Work Phone: [facility] 10-18-2023 11:32-0400 Respiratory rate 20 /min Ysabel Cabral MD Work Phone: [facility] 10-18-2023 11:32-0400 Systolic blood pressure 122 mm[Hg] Ysabel Cabral MD Work Phone: [facility] Healthcare Encounters Encounter Date Encounter Type [...] 04-02-2024 Bamboo flowsheet Teresa Cheri Jo Ann-Nossek [employer] MAK[employer]-PROCESS ENGINEERING INTERN Work Phone: [facility] Start: 04-02-2024 End: 04-02-2024 Bamboo flowsheet Teresa Cheri Jo Ann-Nossek [employer] MAK[employer]-PROC[employer] ENGINEERING INTERN Work Phone: [facility] Start: 04-02-2024 End: 04-02-2024 ambulatory TERESA Cheri JO ANN-NOSSEK Not Available Start: 04-02-2024 End: 04-02-2024 Office outpatient visit 25 minutes Teresa Alonzo Jo Ann-Nossek [employer] MAK[employer]-PROCESS ENGINEERING INTERN Work Phone: [facility] Comment on above: [...] 02-13-2024 End: 02-13-2024 Bamboo flowsheet Emerita Warren [employer] [facility] Start: 02-13-2024 End: 02-13-2024 Bamboo flowsheet Emerita Whittakerleah [employer] Work Phone: [facility] Start: 02-13-2024 End: 02-13-2024 ambulatory EMERITA WARREN Not Available Start: 02-13-2024 End: 02-13-2024 Office outpatient visit 15 minutes Emerita Gillleah [employer] Work Phone: [facility] Comment on above: Intractable chronic migraine [...] 01-01-2024 Bamboo flowsheet Teresa Alonzo Jo Ann-Nossek [employer]ACK MAK[employer]urfly Work Phone: [facility] Start: 01-01-2024 End: 01-01-2024 Bamboo flowsheet Teresa Alonzo Jo Ann-Nossek R[employer] MAK[employer] Work Phone: [facility] Start: 01-01-2024 End: 01-01-2024 ambulatory TERESA Cheri JO ANN-NOSSEK Not Available Start: 01-01-2024 End: 01-01-2024 Office outpatient visit 25 minutes Teresa Alonzo Jo Ann-Nossek [employer] Work Phone: [facility] Comment on [...] Office outpatient visit 15 minutes Teresa Ornelas RACK MAKER-PROCESS ENGINEERING INTERN Work Phone: [facility] Comment on above: Attention deficit hy [...] End: 10-18-2023 Office outpatient visit 15 minutes Ysaebl Cabral MD Work Phone: [facility] Comment on above: Morning sickness (Pr imary Dx) Start: 10-18-2023 End: 10-18-2023 ambulatory YSABEL CABRAL Not Available Start: 10-18-2023 End: 10-18-2023 Office outpatient visit 25 minutes Evonne Jaydon DO Work Phone: [facility] Comment on above: Intractable chronic [...] ambulatory DR TALITA DODSON Facility:[facility]1 Start: 05-11-2021 ([facility] C Vac) [facility] Co vid Vaccine Vicky Joe [facility] Start: 05-11-2021 End: 05-11-2021 ambulatory Vicky Joe Other [employer] Other Start: 03-01-2021 End: 03-01-2021 ambulatory CHLOE [...] Data Provider Start: 03-07-2024 [facility] UA (CLEAN/CATCH) PROCESS ENGINEERING INTERN/MICRO IF IND. Raghavendra Christina DO Work Phone: [...] RHF, URCA #### [facility] [address] [place], [address] Plan of Treatment Date Care Activity Detail Author Start: 01-09-2027 Screening for malign ant neoplasm of cervix [facility] Start: 06-17-2024 End: 06-17-2024 Patient encounter procedure 06/17/2024 11:30 AM EDT Office Visit [facility] [address] [facility] [address] [place] [address] Teresa Ornelas, RACK MAKER-PROCESS ENGINEERING INTERN [address] [facility] [address] [place] [address] [facility] Start: 05-06-2024 End: 05-06-2024 Patient encounter procedure [facility] [place] [address] Start: 04-23-2024 End: 04-23-2024 Patient encounter procedure 04/23/2024 11:10 AM EST Routine [facility] [address] [place] [address] Raghavendra Vasquez, DO [address] [facility] [place] [address] [facility] Start: 04-08-2024 End: 10-06-2024 [...] AM EST Routine [facility] [address] [facility] [phone] Raghavendra Vasquez, DO [address] [place] [address] [facility] Start: 04-02-2024 End: 04-02-2024 Patient encounter procedure 04/02/2024 11:00 AM EST Office Visit [facility] [address] [facility] [address] [place] [address] Teresa Ornelas, RACK MAKER-[facility] [address] [facility] [address] [place] [address] [facility] Start: 03-25-2024 End: 03-25-2024 Patient encounter procedure 03/25/2024 10:00 AM EST Routine [facility] [address] [place] [phone] Raghavendra Vasquez, DO [address] [facility] [place] [address] [facility] Start: 03-11-2024 End: 03-11-2024 Patient encounter procedure 03/11/2024 9:40 AM EST Routine [facility] [address] [place] [phone] Raghavendra Vasquez, DO [address] [place] [address] [facility] Start: 02-13-2024 End: 02-13-2024 Patient encounter procedure 02/13/2024 1:00 PM EST Office Visit [facility] [place] [address] [place] [phone] Emerita Warren, [employer] [address] [facility] [place] [facility] [place] [address] Start: 02-11-2024 End: 02-10-2025 CBC panel - Blood by Automated count CBC Lab Routine Diabetes mellitus screening Expected: 02/11/2024 (Approximate), Expires: 02/10/2025 [facility] Healthcare Work Phone: Comment on above: Expected: 02/11/2024 (Approximate), Expires: 02/10/2025 Start: 02-11-2024 End: 02-10-2025 Measurement of glucose 1 hour after glucose challenge for glucose tolerance test Glucose tolerance, 1 hour Lab Routine Diabetes mellitus screening Expected: 02/11/2024 (Approximate), Expires: 02/10/2025 [facility] Comment on above: Expected: 02/11/2024 (Approximate), Expires: 02/10/2025 Start: 02-11-2024 End: 02-10-2025 US for US OB SCAN FOR GROWTH Imaging Routine 23 weeks gestation of Diabetes mellitus screening Expected: 02/11/2024 (Approximate), Expires: 02/10/2025 [facility] Comment on above: Expected: 02/11/2024 (Approximate), Expires: 02/10/2025 Start: 02-11-2024 End: 02-11-2024 Patient encounter procedure 02/11/2024 9:40 AM EST Routine [facility] [address] [facility] [phone] Raghavendra Vasquez, [address] [place] [address] [facility] Start: 01-28-2024 End: 01-28-2024 Professional / ancillary services management 01/28/2024 11:00 AM EST Ancillary Procedure [facility] [address] [facility] [place] [phone] [facility] Start: 01-10-2024 End: 05-14-2025 [...] AM EST Routine [facility] [address] [place] [phone] Raghavendra Vasquez DO [address] [facility] [place] [address] [facility] Start: 01-01-2024 End: 01-01-2024 Patient encounter procedure 01/01/2024 11:30 AM EST Office Visit [facility] [address] [facility] [address] [place] [address] Teresa Ornelas, RACK MAKER-PROCESS ENGINEERING INTERN [address] [facility] [address] [place] [address] [facility] Start: 12-18-2023 End: 12-18-2023 Patient encounter procedure 12/18/2023 5:30 PM EDT Office Visit [facility] [place] [address] [place] [phone] Evonne Childress, DO [address] [place] [address] [facility] [place] [address] Start: 11-28-2023 End: 11-28-2023 Patient encounter procedure 11/28/2023 2:20 PM EDT Routine [facility] [address] [place] [phone] Raghavendra Vasquez, [address] [facility] [place] [address] [facility] OB Start: 11-27-2023 End: 11-27-2023 Patient encounter procedure 11/27/2023 11:00 AM EDT Office Visit [facility] [address] [facility] [address] [place] [address] Teresa Ornelas, RACK MAKER-PROCESS ENGINEERING INTERN [address] [facility] [address] [place] [address] [facility] Start: 11-01-2023 End: 10-31-2024 ABO/Rh ABO/Rh Lab Routine Missed menses Expected: 11/01/2023 (Approximate), Expires: 10/31/2024 [facility] Healthcare Comment on above: Expected: 11/01/2023 (Approximate), Expires: 10/31/2024 Start: 11-01-2023 End: 11-01-2023 ambulatory 11/01/2023 2:00 PM EDT Initial [facility] OB [address] [place] [phone] [facility] OB Start: 11-01-2023 End: 10-31-2024 Blood type [...] management 11/01/2023 1:30 PM EDT Ancillary Procedure [facility] [address] [place] [address] [facility] OB Start: 10-28-2023 Influenza vaccination Influenza Vacc ine (#1) [facility] Healthcare Start: 10-18-2023 End: 10-18-2023 Patient encounter procedure 10/18/2023 11:40 AM EDT Office Visit [facility] [address] [place] [address] Ysabel Cabral MD [address], [place] [id number] [facility] Start: 10-18-2023 End: 10-18-2023 Patient encounter procedure 10/18/2023 10:30 AM EDT Procedure Visit [facility] DEN[address] [facility] [address] [place] [address] Evonne Childress, DO [address] [place] [address] Arrived [facility] Comment on above: Arrived Start: 09-10-2017 Screening for malign ant neoplasm of cervix [facility] Start: 09-10-2008 Screening for malign ant neoplasm of cervix Pap Smear [facility] Bacteria identified in Urine by Culture Urine culture Microbiology Routine Missed menses Ordered: 11/01/2023 [facility] Comment on above: Ordered: 11/01/2023 CBC W Auto Different ial panel - Blood CBC and differential Lab Routine Missed menses Ordered: 11/01/2023 [facility] Comment on above: Ordered: 11/01/2023 CHLAMYDIA TRACHOMATI S (GENITO/STI) CHLAMYDIA TRACHOMATIS (GENITO/STI) Lab Routine STD exposure Ordered: 01/10/2024 [facility] Comment on above: Ordered: 01/10/2024 Cytology Cervical or vaginal smear or scraping study Pap Smear Pathology and Cytology Routine Well woman exam with routine gynecological exam Ordered: 01/10/2024 [facility] Comment on above: Ordered: 01/10/2024 Hemoglobin A1c/Hemoglobin.total in Blood Hemoglobin A1c Lab Routine Missed menses Ordered: 11/01/2023 [facility] Comment on above: Ordered: 11/01/2023 Hepatitis B virus surface Ag [Presence] in Serum or Plasma by Immunoassay Hepatitis B surface antigen Lab Routine Missed menses Ordered: 11/01/2023 [facility] Comment on above: Ordered: 11/01/2023 Hepatitis C virus Ab [Presence] in Serum or Plasma by Immunoassay Hepatitis C antibody Lab Routine Missed menses Ordered: 11/01/2023 [facility] Comment on above: Ordered: 11/01/2023 HIV-1/HIV-2 antigen/antibody combination immunoassay HIV-1 and HIV-2 antibodies Lab Routine Missed menses Ordered: 11/01/2023 [facility] Comment on above: Ordered: 11/01/2023 Human papilloma viru s DNA [Presence] in Unspecified specimen by Probe with amplification HPV DNA probe, amplified Microbiology Routine Well woman exam with routine gynecological exam Ordered: 01/10/2024 [facility] Comment on above: Ordered: 01/10/2024 Neisseria gonorrhoea e DNA [Presence] in Unspecified specimen by ERIC with probe detection Neisseria gonorrhea DNA probe, direct Lab Routine STD exposure Ordered: 01/10/2024 [facility] Comment on above: Ordered: 01/10/2024 Reagin Ab [Presence] in Serum by RPR RPR Lab Routine Missed menses Ordered: 11/01/2023 [facility] Comment on above: Ordered: 11/01/2023 Rubella antibody, IgG Rubella an tibody, IgG Lab Routine Missed menses Ordered: 11/01/2023 [facility] Comment on above: Ordered: 11/01/2023 SURESWAB(R) ADVANCED VAGINITIS PLUS, TMA SURESWAB(R) ADVANCED VAGINITIS PLUS, TMA Pathology and Cytology Routine Vaginal discharge Ordered: 01/10/2024 [facility] Work Phone: Comment on above: Ordered: 01/10/2024 Immunizations Immunization Date Immunization Notes Care Provider Corrina hanson 05-11-2021 COVID-19 En Joe Other [employer] Other 10-02-2016 influenza, injectabl e, quadrivalent, preservative free Evonne Jaydon DO Work Phone: [facility] 10-02-2016 influenza virus vaccine, unspecified formulation Evonne Jaydon DO Work Phone: [facility] 10-13-2015 influenza, injectabl e, quadrivalent, preservative free Evnone Jaydon DO Work Phone: [facility] 12-02-2014 influenza, seasonal, injectable, preservative free Evonne Jaydon DO Work Phone: [facility] Healthcare Payers Date Payer Category Payer Medicaid [employer] [place] [employer] [id number] 2021-Present [address] [place] [id number] 2021 Medicaid (Managed Care) [employer] [id number] 1987 Unknown [id number]. 593 1987 Unknown [id number] 2.840.1.299555.3.579.2. 593 1987 Unknown [id number] 2.840.1.799316.3.579.2. 593 1987 Unknown [id number] 2.840.1.314730.3.579.2. 1259 1987 Unknown [id number] 2.16.840.1.166743.3.579.2. 1258 1987 Unknown [id number] 2.16.840.1.466209.3.579.2. 1258 1987 Unknown [id number] 2.16.840.1.684226.3.579.2. 1258 1987 Unknown [id number] 2.16.840.1.686164.3.579.2. 1258 1987 Unknown [id number] 2.16.840.1.198592.3.579.2. 1258 1987 Unknown [id number] 2..840.1.606916.3.579.2. 1258 1987 Unknown [id number] 2..840.1.278588.3.579.2. 1258 1987 Unknown [id number] 2.840.1.439926.3.579.2. 1258 1987 Unknown [id number] 2.840.1.796744.3.579.2. 1258 1987 Unknown [id number] 2.840.1.682049.3.579.2. 1258 1987 Unknown [id number] 2.840.1.753560.3.579.2. 1258 1987 Unknown [id number] 2.840.1.931420.3.579.2. 1258 1987 Unknown [id number] 2..840.1.578093.3.579.2. 1258 1987 Unknown [id number] 2..840.1.207861.3.579.2. 1258 1987 Unknown [id number] 2.16.840.1.684015.3.579.2. 1258 1987 Unknown [id number] 2.840.1.392673.3.579.2. 1258 1987 Unknown [id number] 2.840.1.099338.3.579.2. 1259 1987 Unknown [id number] 2.16.840.1.602945.3.579.2. 9 1987 Unknown [id number] 2.16.840.1.422456.3.579.2. 9 1987 Unknown [id number] 2.16.840.1.075063.3.579.2. 1258 1987 Unknown [id number] 2.16.840.1.745772.3.579.2. 9 1987 Unknown [id number] 2.16.840.1.383072.3.579.2. 1258 1987 Unknown [id number] 2.16.840.1.718873.3.579.2. 1259 1959 Unknown [id number] 2.16.840.1.572299.19 Social History Date Type Detail Facility Unknown if ever smoked [employer] Other Start: 2022 End: 01-01-2024 Sex [facility] [employer] Other Start: 12-22-2022 [facility] tobacco [facility] Start: [...] End: 04-02-2024 Alcoholic beverage intake Ex-drinker (finding) [facility] Start: 01-01-2024 Alcohol Comment I have a glass of wine or 2 glasses each evening with dinner [facility] Clinical Notes 05-11-2021 to 04-08-2024 Shelli Toño, GRAPHICS PRODUCTION SPECIALIST - 04/08/2024 11:40 AM America Ornelas, RACK MAKER-PROCESS ENGINEERING INTERN - 04/02/2024 11:00 AM BACILIOShelli Bobjuma, [facility] - 03/25/2024 10:00 AM Christine Lundberg, [facility] - 03/11/2024 9:40 AM EST Note Date [...] Attention deficit hyperactivity disorder (ADHD), combined type ([facility]) 07/04/2022 Episodic mood disorder ([facility]) 07/04/2022 Generalized anxiety disorder ([facility]) 07/04/2022 Panic disorder ([facility]) 07/04/2022 Acquired scoliosis 09/09/2016 Allergic rhinitis 10/16/2019 Anxiety 01/31/2020 Asthma ([facility]) 12/31/2014 Chronic fatigue syndrome 07/03/2016 Chronic gastritis without bleeding 12/28/2022 Irritable bowel syndrome 07/03/2016 Migraine without aura and without status migrainosus, not intractable ([facility]) 09/19/2017 Mild intermittent asthma ([facility]) 02/28/2021 Primary localized osteoarthrosis of ankle and foot 03/13/2019 Vitamin D deficiency 12/28/2022 Headache 06/28/2023 Inadequate sleep hygiene 06/28/2023 Migraine ([facility]) 06/28/2023 Tenosynovitis of foot 06/28/2023 Nausea and vomiting 06/28/2023 Common migraine with intractable migraine ([facility]) 06/28/2023 Pain in limb 06/28/2023 Chronic tension-type headache, not intractable 06/28/2023 Sleep disturbance 06/28/2023 Insomnia, unspecified 06/28/2023 Other problems related to lifestyle 06/28/2023 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 08/10/2023 Resolved Ambulatory Problems Diagnosis Date Noted No Resolved Ambulatory Problems Past Medical History: Diagnosis Date Adenoma of left breast ADHD (attention deficit hyperactivity disorder) ([facility]) Anemia Back pain Common migraine ([facility]) 08/17/2015 Depression ([facility]) H/O colonoscopy H/O umbilical hernia repair Insomnia 06/25/2017 Migraines ([facility]) Nausea with vomiting 08/17/2015 Tendonitis of right hand Tension headache 08/17/2015 HISTORY PAST MEDICAL HISTORY SOCIAL HISTORY Past Medical History: Diagnosis Date Adenoma of left breast removed 2013 ADHD (attention deficit hyperactivity disorder) ([facility]) Anemia Anxiety Asthma ([facility]) Back pain Common migraine ([facility]) 08/17/2015 Depression ([facility]) H/O colonoscopy 2012 H/O umbilical hernia repair 2008 Headache 08/17/2015 Inadequate sleep hygiene 04/23/2018 Insomnia 06/25/2017 Migraine ([facility]) 03/22/2017 Migraines ([facility]) Nausea with vomiting 08/17/2015 Pain [...] nursing note reviewed. Exam conducted with a customer account administrator present. Vitals: Estimated body mass index is [...] Veda Sarmiento PA-C documented in this encounter [facility] 04-02-2024 History of Present illness Narrative Images from the original note were not included. Patient reports not starting the Zoloft after last visit. Tiki Moeller is a 38 y.o. female presents for Medication Management. HPI: Patient is here for medication follow up. Patient is currently 34weeks decided not to take zoloft. Got fired from [employer] due to falling asleep. She was feeling [...] removed 2013 ADHD (attention deficit hyperactivity disorder) ([facility]) Anemia Anxiety Asthma ([facility]) Back pain Common migraine ([facility]) 08/17/2015 Depression ([facility]) H/O colonoscopy 2012 H/O umbilical hernia repair 2007 Headache 08/17/2015 Inadequate sleep hygiene 04/23/2018 Insomnia 06/25/2017 Migraine ([facility]) 03/22/2017 Migraines ([facility]) Nausea with vomiting 08/17/2015 Pain [...] check for post documented in this encounter [facility] 03-25-2024 History of Present illness [...] Attention deficit hyperactivity disorder (ADHD), combined type ([facility]) 07/04/2022 Episodic mood disorder ([facility]) 07/04/2022 Generalized anxiety disorder ([facility]) 07/04/2022 Panic disorder ([facility]) 07/04/2022 Acquired scoliosis 09/09/2016 Allergic rhinitis 10/16/2019 Anxiety 01/31/2020 Asthma ([facility]) 12/31/2014 Chronic fatigue syndrome 07/03/2016 Chronic gastritis without bleeding 12/28/2022 Irritable bowel syndrome 07/03/2016 Migraine without aura and without status migrainosus, not intractable ([facility]) 09/19/2017 Mild intermittent asthma ([facility]) 02/28/2021 Primary localized osteoarthrosis of ankle and foot 03/13/2019 Vitamin D deficiency 12/28/2022 Headache 06/28/2023 Inadequate sleep hygiene 06/28/2023 Migraine ([facility]) 06/28/2023 Tenosynovitis of foot 06/28/2023 Nausea and vomiting 06/28/2023 Common migraine with intractable migraine ([facility]) 06/28/2023 Pain in limb 06/28/2023 Chronic tension-type headache, not intractable 06/28/2023 Sleep disturbance 06/28/2023 Insomnia, unspecified 06/28/2023 Other problems related to lifestyle 06/28/2023 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 08/10/2023 Resolved Ambulatory Problems Diagnosis Date Noted No Resolved Ambulatory Problems Past Medical History: Diagnosis Date Adenoma of left breast ADHD (attention deficit hyperactivity disorder) ([facility]) Anemia Back pain Common migraine ([facility]) 08/17/2015 Depression ([facility]) H/O colonoscopy H/O umbilical hernia repair Insomnia 06/25/2017 Migraines ([facility]) Nausea with vomiting 08/17/2015 Tendonitis of right hand Tension headache 08/17/2015 HISTORY PAST MEDICAL HISTORY SOCIAL HISTORY Past Medical History: Diagnosis Date Adenoma of left breast removed 2013 ADHD (attention deficit hyperactivity disorder) ([facility]) Anemia Anxiety Asthma ([facility]) Back pain Common migraine ([facility]) 08/17/2015 Depression ([facility]) H/O colonoscopy 2012 H/O umbilical hernia repair 2007 Headache 08/17/2015 Inadequate sleep hygiene 04/23/2018 Insomnia 06/25/2017 Migraine ([facility]) 03/22/2017 Migraines ([facility]) Nausea with vomiting 08/17/2015 Pain [...] nursing note reviewed. Exam conducted with a customer account administrator present. Vitals: Estimated body mass index is [...] Raghavendra Vasquez DO documented in this encounter [facility] 03-11-2024 History of Present illness [...] Attention deficit hyperactivity disorder (ADHD), combined type ([facility]) 07/04/2022 Episodic mood disorder ([facility]) 07/04/2022 Generalized anxiety disorder ([facility]) 07/04/2022 Panic disorder ([facility]) 07/04/2022 Acquired scoliosis 09/09/2016 Allergic rhinitis 10/16/2019 Anxiety 01/31/2020 Asthma ([facility]) 12/31/2014 Chronic fatigue syndrome 07/03/2016 Chronic gastritis without bleeding 12/28/2022 Irritable bowel syndrome 07/03/2016 Migraine without aura and without status migrainosus, not intractable ([facility]) 09/19/2017 Mild intermittent asthma ([facility]) 02/28/2021 Primary localized osteoarthrosis of ankle and foot 03/13/2019 Vitamin D deficiency 12/28/2022 Headache 06/28/2023 Inadequate sleep hygiene 06/28/2023 Migraine ([facility]) 06/28/2023 Tenosynovitis of foot 06/28/2023 Nausea and vomiting 06/28/2023 Common migraine with intractable migraine ([facility]) 06/28/2023 Pain in limb 06/28/2023 Chronic tension-type headache, not intractable 06/28/2023 Sleep disturbance 06/28/2023 Insomnia, unspecified 06/28/2023 Other problems related to lifestyle 06/28/2023 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 08/10/2023 Resolved Ambulatory Problems Diagnosis Date Noted No Resolved Ambulatory Problems Past Medical History: Diagnosis Date Adenoma of left breast ADHD (attention deficit hyperactivity disorder) ([facility]) Anemia Back pain Common migraine ([facility]) 08/17/2015 Depression ([facility]) H/O colonoscopy H/O umbilical hernia repair Insomnia 06/25/2017 Migraines ([facility]) Nausea with vomiting 08/17/2015 Tendonitis of right hand Tension headache 08/17/2015 HISTORY PAST MEDICAL HISTORY SOCIAL HISTORY Past Medical History: Diagnosis Date Adenoma of left breast removed 2013 ADHD (attention deficit hyperactivity disorder) ([facility]) Anemia Anxiety Asthma ([facility]) Back pain Common migraine ([facility]) 08/17/2015 Depression ([facility]) H/O colonoscopy 2012 H/O umbilical hernia repair 2008 Headache 08/17/2015 Inadequate sleep hygiene 04/23/2018 Insomnia 06/25/2017 Migraine ([facility]) 03/22/2017 Migraines ([facility]) Nausea with vomiting 08/17/2015 Pain [...] nursing note reviewed. Exam conducted with a customer account administrator present. Vitals: Estimated body mass index is [...] Raghavendra Vasquez DO documented in this encounter [facility] 02-11-2024 History of Present illness [...] Attention deficit hyperactivity disorder (ADHD), combined type ([facility]) 07/04/2022 Episodic mood disorder ([facility]) 07/04/2022 Generalized anxiety disorder ([facility]) 07/04/2022 Panic disorder ([facility]) 07/04/2022 Acquired scoliosis 09/09/2016 Allergic rhinitis 10/16/2019 Anxiety 01/31/2020 Asthma ([facility]) 12/31/2014 Chronic fatigue syndrome 07/03/2016 Chronic gastritis without bleeding 12/28/2022 Irritable bowel syndrome 07/03/2016 Migraine without aura and without status migrainosus, not intractable ([facility]) 09/19/2017 Mild intermittent asthma ([facility]) 02/28/2021 Primary localized osteoarthrosis of ankle and foot 03/13/2019 Vitamin D deficiency 12/28/2022 Headache 06/28/2023 Inadequate sleep hygiene 06/28/2023 Migraine ([facility]) 06/28/2023 Tenosynovitis of foot 06/28/2023 Nausea and vomiting 06/28/2023 Common migraine with intractable migraine ([facility]) 06/28/2023 Pain in limb 06/28/2023 Chronic tension-type headache, not intractable 06/28/2023 Sleep disturbance 06/28/2023 Insomnia, unspecified 06/28/2023 Other problems related to lifestyle 06/28/2023 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 08/10/2023 Resolved Ambulatory Problems Diagnosis Date Noted No Resolved Ambulatory Problems Past Medical History: Diagnosis Date Adenoma of left breast ADHD (attention deficit hyperactivity disorder) ([facility]) Anemia Back pain Common migraine ([facility]) 08/17/2015 Depression ([facility]) H/O colonoscopy H/O umbilical hernia repair Insomnia 06/25/2017 Migraines ([facility]) Nausea with vomiting 08/17/2015 Tendonitis of right hand Tension headache 08/17/2015 HISTORY PAST MEDICAL HISTORY SOCIAL HISTORY Past Medical History: Diagnosis Date Adenoma of left breast removed 2013 ADHD (attention deficit hyperactivity disorder) ([facility]) Anemia Anxiety Asthma ([facility]) Back pain Common migraine ([facility]) 08/17/2015 Depression ([facility]) H/O colonoscopy 2012 H/O umbilical hernia repair 2008 Headache 08/17/2015 Inadequate sleep hygiene 04/23/2018 Insomnia 06/25/2017 Migraine ([facility]) 03/22/2017 Migraines ([facility]) Nausea with vomiting 08/17/2015 Pain [...] nursing note reviewed. Exam conducted with a customer account administrator present. Vitals: Estimated body mass index is [...] Raghavendra Vasquez DO documented in this encounter [facility] 01-10-2024 History of Present illness [...] Attention deficit hyperactivity disorder (ADHD), combined type ([facility]) 07/04/2022 Episodic mood disorder ([facility]) 07/04/2022 Generalized anxiety disorder ([facility]) 07/04/2022 Panic disorder ([facility]) 07/04/2022 Acquired scoliosis 09/09/2016 Allergic rhinitis 10/16/2019 Anxiety 01/31/2020 Asthma ([facility]) 12/31/2014 Chronic fatigue syndrome 07/03/2016 Chronic gastritis without bleeding 12/28/2022 Irritable bowel syndrome 07/03/2016 Migraine without aura and without status migrainosus, not intractable ([facility]) 09/19/2017 Mild intermittent asthma ([facility]) 02/28/2021 Primary localized osteoarthrosis of ankle and foot 03/13/2019 Vitamin D deficiency 12/28/2022 Headache 06/28/2023 Inadequate sleep hygiene 06/28/2023 Migraine ([facility]) 06/28/2023 Tenosynovitis of foot 06/28/2023 Nausea and vomiting 06/28/2023 Common migraine with intractable migraine ([facility]) 06/28/2023 Pain in limb 06/28/2023 Chronic tension-type headache, not intractable 06/28/2023 Sleep disturbance 06/28/2023 Insomnia, unspecified 06/28/2023 Other problems related to lifestyle 06/28/2023 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 08/10/2023 Resolved Ambulatory Problems Diagnosis Date Noted No Resolved Ambulatory Problems Past Medical History: Diagnosis Date Adenoma of left breast ADHD (attention deficit hyperactivity disorder) ([facility]) Anemia Back pain Common migraine ([facility]) 08/17/2015 Depression ([facility]) H/O colonoscopy H/O umbilical hernia repair Insomnia 06/25/2017 Migraines ([facility]) Nausea with vomiting 08/17/2015 Tendonitis of right hand Tension headache 08/17/2015 HISTORY PAST MEDICAL HISTORY SOCIAL HISTORY Past Medical History: Diagnosis Date Adenoma of left breast removed 2013 ADHD (attention deficit hyperactivity disorder) ([facility]) Anemia Anxiety Asthma ([facility]) Back pain Common migraine ([facility]) 08/17/2015 Depression ([facility]) H/O colonoscopy 2012 H/O umbilical hernia repair 2008 Headache 08/17/2015 Inadequate sleep hygiene 04/23/2018 Insomnia 06/25/2017 Migraine (CMS/HCC) 03/22/2017 Migraines ([facility]) Nausea with vomiting 08/17/2015 Pain [...] nursing note reviewed. Exam conducted with a customer account administrator present. Vitals: Estimated body mass index is [...] obtained without difficulty and patient was given [facility] order to have obtained. Sent Omeprazole to [...] Raghavendra Vasquez DO documented in this encounter [facility] 01-01-2024 History of Present illness [...] visit. 20 weeks. 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 Psychosocial stressors include . SUBJECTIVE: PAST MEDICAL HISTORY: Past Medical History: Diagnosis Date Adenoma of left breast removed 2013 ADHD (attention deficit hyperactivity disorder) ([facility]) Anemia Anxiety Asthma ([facility]) Back pain Common migraine (CMS/HCC) [...] and Time Memory/Concentration Short term intact and terminal gauger intact Insight/Judgement Fair OBJECTIVE: Visit [...] Visit time :32min documented in this encounter [facility] 11-28-2023 History of Present illness [...] Attention deficit hyperactivity disorder (ADHD), combined type ([facility]) 07/04/2022 Episodic mood disorder ([facility]) 07/04/2022 Generalized anxiety disorder ([facility]) 07/04/2022 Panic disorder ([facility]) 07/04/2022 Acquired scoliosis 09/09/2016 Allergic rhinitis 10/16/2019 Anxiety 01/31/2020 Asthma ([facility]) 12/31/2014 Chronic fatigue syndrome 07/03/2016 Chronic gastritis without bleeding 12/28/2022 Irritable bowel syndrome 07/03/2016 Migraine without aura and without status migrainosus, not intractable ([facility]) 09/19/2017 Mild intermittent asthma ([facility]) 02/28/2021 Primary localized osteoarthrosis of ankle and foot 03/13/2019 Vitamin D deficiency 12/28/2022 Headache 06/28/2023 Inadequate sleep hygiene 06/28/2023 Migraine ([facility]) 06/28/2023 Tenosynovitis of foot 06/28/2023 Nausea and vomiting 06/28/2023 Common migraine with intractable migraine ([facility]) 06/28/2023 Pain in limb 06/28/2023 Chronic tension-type headache, not intractable 06/28/2023 Sleep disturbance 06/28/2023 Insomnia, unspecified 06/28/2023 Other problems related to lifestyle 06/28/2023 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 08/10/2023 Resolved Ambulatory Problems Diagnosis Date Noted No Resolved Ambulatory Problems Past Medical History: Diagnosis Date Adenoma of left breast ADHD (attention deficit hyperactivity disorder) ([facility]) Anemia Back pain Common migraine ([facility]) 08/17/2015 Depression ([facility]) H/O colonoscopy H/O umbilical hernia repair Insomnia 06/25/2017 Migraines ([facility]) Nausea with vomiting 08/17/2015 Tendonitis of right hand Tension headache 08/17/2015 HISTORY PAST MEDICAL HISTORY SOCIAL HISTORY Past Medical History: Diagnosis Date Adenoma of left breast removed 2013 ADHD (attention deficit hyperactivity disorder) ([facility]) Anemia Anxiety Asthma ([facility]) Back pain Common migraine ([facility]) 08/17/2015 Depression ([facility]) H/O colonoscopy 2013 H/O umbilical hernia repair 2008 Headache 08/17/2015 Inadequate sleep hygiene 04/23/2018 Insomnia 06/25/2017 Migraine (CMS/HCC) 03/22/2017 Migraines ([facility]) Nausea with vomiting 08/17/2015 Pain [...] nursing note reviewed. Exam conducted with a customer account administrator present. Vitals: Estimated body mass index is [...] or undercooked meat, and stay away from [facility]. Patient has been consulted regarding any further [...] Raghavendra Vasquez DO documented in this encounter [facility] 11-27-2023 History of Present illness [...] work done. 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 Psychosocial stressors include . SUBJECTIVE: PAST MEDICAL HISTORY: Past Medical History: Diagnosis Date Adenoma of left breast removed 2013 ADHD (attention deficit hyperactivity disorder) ([facility]) Anemia Anxiety Asthma ([facility]) Back pain Common migraine ([facility]) 08/17/2015 Depression ([facility]) H/O colonoscopy 2012 H/O umbilical hernia repair 2007 Headache 08/17/2015 Inadequate sleep hygiene 04/23/2018 Insomnia 06/25/2017 Migraine ([facility]) 03/22/2017 Migraines ([facility]) Nausea with vomiting 08/17/2015 Pain in limb [...] and Time Memory/Concentration Short term intact and [facility] intact Insight/Judgement Good OBJECTIVE: Visit Vitals LMP [...] F/U 6 weeks documented in this encounter [facility] 11-01-2023 History of Present illness [...] the following prescription(s): albuterol hfa, albuterol hfa, yrxfxdofsm-hrsytqflkbomc-bvpffffx , cyanocobalamin, d3-1000, dicyclomine, fluticasone, onabotulinumtoxina, ondansetron, promethazine, sertraline, and tizanidine. Medical History: Active Ambulatory Problems Diagnosis Date Noted Attention deficit hyperactivity disorder (ADHD), combined type ([facility]) 07/04/2022 Episodic mood disorder ([facility]) 07/04/2022 Generalized anxiety disorder ([facility]) 07/04/2022 Panic disorder ([facility]) 07/04/2022 Acquired scoliosis 09/09/2016 Allergic rhinitis 10/16/2019 Anxiety 01/31/2020 Asthma ([facility]) 12/31/2014 Chronic fatigue syndrome 07/03/2016 Chronic gastritis without bleeding 12/28/2022 Irritable bowel syndrome 07/03/2016 Migraine without aura and without status migrainosus, not intractable ([facility]) 09/19/2017 Mild intermittent asthma ([facility]) 02/28/2021 Primary localized osteoarthrosis of ankle and foot 03/13/2019 Vitamin D deficiency 12/28/2022 Headache 06/28/2023 Inadequate sleep hygiene 06/28/2023 Migraine ([facility]) 06/28/2023 Tenosynovitis of foot 06/28/2023 Nausea and vomiting 06/28/2023 Common migraine with intractable migraine ([facility]) 06/28/2023 Pain in limb 06/28/2023 Chronic tension-type headache, not intractable 06/28/2023 Sleep disturbance 06/28/2023 Insomnia, unspecified 06/28/2023 Other problems related to lifestyle 06/28/2023 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 08/10/2023 Resolved Ambulatory Problems Diagnosis Date Noted No Resolved Ambulatory Problems Past Medical History: Diagnosis Date Adenoma of left breast ADHD (attention deficit hyperactivity disorder) ([facility]) Anemia Back pain Common migraine ([facility]) 08/17/2015 Depression ([facility]) H/O colonoscopy H/O umbilical hernia repair Insomnia 06/25/2017 Migraines ([facility]) Nausea with vomiting 08/17/2015 Tendonitis [...] pt to schedule US w/tbh. Pt desired [place] advised pt to wait until 10 [...] An Duffy MA documented in this encounter [facility] 10-19-2023 Telephone encounter Note Pt needs a letter stating that she was seen in office on 10/17 Please Fax to [phone] [facility] 10-19-2023 Miscellaneous Notes Pt needs a letter stating that she was seen in office on 10/17 Please Fax to [phone] documented in this encounter [facility] 10-18-2023 History of Present illness Narrative Tiki Moleler is a 38 y.o. female presents with [...] 2 puffs, Inhalation, Every 4 hours PRN isymlownpb-leqtwllotfoxq-omfmyyho 50-325-40 MG tablet TAKE 1 TABLET BY [...] for further guidance. documented in this encounter [facility] 10-18-2023 History of Present illness Narrative Images from the original note were not included. Subjective Tiki Moeller is a 38 y.o. female. Patient was to be seen for botox injections but she just found out that she is . She was not planning but not preventing . 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 She has been receiving the Botox injections [...] during those pregnancies. 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 Objective Neurological Exam Physical [...] Return to clinic: documented in this encounter [facility] 08-03-2021 Note FINDINGS: Sonographic evaluation targeted to the painful palpable areas within the right breast. Multiple subcentimeter benign simple cysts within the right upper quadrant. Mild periareolar ductal dilatation (3-4 mm diameter). No suspicious solid nodule or mass. IMPRESSION: BI RADS 2 : BENIGN FINDINGS Report reported and signed by Alexei Smith on 08/03/2021 1626 [facility] 05-11-2021 Evaluation note Encounter Date Diagnosis Assessment Notes Apr, Encounter for immunization (ICD-10 - Z23) Patient presents for COVID-19 vaccination #2. Pre-screening form answers evaluated with patient. Patient denies current illness or allergic reaction to component of COVID-19 vaccine. Patient provided with current copy of [employer]. [employer] Other Evaluation note* Diagnosis Attention deficit hyperactivity disorder (ADHD), combined type (CMS/HCC) Generalized anxiety disorder (CMS/HCC) Generalized anxiety disorder documented in this encounter [facility] HealthcareEvaluation note* Diagnosis First trimester state, [...] History tibial and fibular sesmoid 8-20 15 [employer] Other Summary Purpose Family History No Family History Records FoundNo Family History Records FoundNo Family History Records FoundNo Family History Records FoundNo Family History Records Found Advance Directives No Advanced Directives Records FoundNo Advanced Directives Records FoundNo Advanced Directives Records FoundNo Advanced Directives Records FoundNo Advanced Directives Records Found Additional Source Comments INFORMATION SOURCE (unrecogn ized section and content) DATE CREATED AUTHOR 05/25/2021 [facility] DATE CREATED AUTHOR AUTHOR'S ORGANIZ ATION 08/04/2021 [facility] dical Specialist DATE CREATED AUTHOR AUTHOR'S ORGANIZ ATION 11/23/2021 [facility] DATE CREATED AUTHOR AUTHOR'S ORGANIZ ATION 12/19/2022 [facility] DATE CREATED AUTHOR AUTHOR'S ORGANIZ ATION 04/10/2024 [facility] dical Specialists EPIC REASON FOR VISIT (unrecogniz ed section and content) Reason Comments Routine Visit Reason Comments Med Management Follow-up Reason Comments Well Women Visit Routine Visit STI Screening Reason Comments Nausea/Vomiting In Reason Comments Amenorrhea Reason Comments Migraine Care Teams (unrecognized sec tion and content) Unemployment Claims Adjudicator Relationship Specialty Start Date End Date Ysabel Cabral MD [address] [facility] [place] [address] PCP - General Family Medicine 07/29/22 Ale Zaldivar MD [address] [facility] [place] [address] PCP - [facility] 05/28/23 Unemployment Claims Adjudicator Relationship Specialty Start Date End Date Ysabel Cabral MD [address] [facility] [place] [address] PCP - General Family Medicine 07/29/22 Ale Zaldivar MD [address] [facility] [place] [address] PCP - [facility] 05/28/23 Unemployment Claims Adjudicator Relationship Specialty Start Date End Date Ysabel Cabral MD [address] [place] [address] PCP - General [facility] 07/29/22 Ale Zaldivar MD [address] [place] [address] PCP - [facility] 05/28/23 Unemployment Claims Adjudicator Relationship Specialty Start Date End Date Ysabel Cabral MD [address] [place] [address] PCP - [facility] 07/29/22 Ale Zaldivar MD [address] [place] [address] PCP - [facility] 05/28/23 Unemployment Claims Adjudicator Relationship Specialty Start Date End Date Ysabel Cabral MD [address] [place] [address] PCP - General [facility] 07/29/22 Ale Zaldivar MD [address] [place] [address] PCP - [facility] 05/28/23 Unemployment Claims Adjudicator Relationship Specialty Start Date End Date Ysabel Cabral MD [address] [place] [address] PCP - General [facility] 07/29/22 Ale Zaldivar MD [address] [place] [address] PCP - [facility] 05/28/23 Unemployment Claims Adjudicator Relationship Specialty Start Date End Date Ysabel Cabral MD [address] [place] [address] PCP - General Family [facility] 07/29/22 Chloe Carvajal, KARATE BLACK BELT [address] [place] [address] PCP - [facility] 11/27/23 Unemployment Claims Adjudicator Relationship Specialty Start Date End Date Ysabel Cabral MD [address] [place] [address] PCP - General [facility] 07/29/22 Chloe Carvajal, KARATE BLACK BELT [address] [place] [address] PCP - [facility] 11/27/23 Unemployment Claims Adjudicator Relationship Specialty Start Date End Date Ysabel Cabral MD [address] [place] [address] PCP - General [facility] 07/29/22 Chloe Carvajal, KARATE BLACK BELT [address] [place] [address] PCP - [facility] 11/27/23 Unemployment Claims Adjudicator Relationship Specialty Start Date End Date Ysabel Cabral MD [address] [place] [address] PCP - General Family Medicine 07/29/22 Chloe Carvajal, KARATE BLACK BELT PCP - [facility] 11/27/23 Unemployment Claims Adjudicator Relationship Specialty Start Date End Date Ysabel Cabral MD [address] [place] [address] PCP - General Family Medicine 07/29/22 Chloe Carvajal NP PCP - [facility] 11/27/23 Unemployment Claims Adjudicator Relationship Specialty Start Date End Date Ysabel Cabral MD [address] [facility] [place] [address] PCP - General [facility] 07/29/22 Ale Zaldivar MD [address] [place] [address] PCP - [facility] 05/28/23 Unemployment Claims Adjudicator Relationship Specialty Start Date End Date Ysabel Cabral MD [address] [facility] [place] [address] PCP - [facility] 07/29/22 Ale Zaldivar MD [address] [facility] [place] [address] PCP - [facility] 05/28/23 Unemployment Claims Adjudicator Relationship Specialty Start Date End Date Ysabel Cabral MD [address] [facility] [place] [address] PCP - General [facility] 07/29/22 Ale Zaldivar MD [address] [facility] [place] [address] PCP - [facility] 05/28/23 Unemployment Claims Adjudicator Relationship Specialty Start Date End Date Ysabel Cabral MD [address] [facility] [place] [address] PCP - General Family Medicine 07/29/22 Chloe Carvajal KARATE BLACK BELT PCP - [facility] 11/27/23 Unemployment Claims Adjudicator Relationship Specialty Start Date End Date Ysabel Cabral MD [address] [place] [address] PCP - General Family Medicine 07/29/22 Ale Zaldivar MD [address] [place] [address] PCP - [facility] 05/28/23 Unemployment Claims Adjudicator Relationship Specialty Start Date End Date Ysabel Cabral MD [address] [place] [address] PCP - General Family [facility] 07/29/22 Ale Zaldivar MD [address] [place] [address] PCP - [facility] 05/28/23 Unemployment Claims Adjudicator Relationship Specialty Start Date End Date Ysabel Cabral MD [address] [place] [address] PCP - General Family Medicine 07/29/22 Chloe Carvajal KARATE BLACK BELT PCP - [facility] 11/27/23 Unemployment Claims Adjudicator Relationship Specialty Start Date End Date Ysabel Cabral MD [address] [place] [address] PCP - General Family Medicine 07/29/22 Chloe Carvajal KARATE BLACK BELT PCP - [facility] 11/27/23 Unemployment Claims Adjudicator Relationship Specialty Start Date End Date Ysabel Cabral MD [address] [place] [address] PCP - General Family Medicine 07/29/22 Chloe Carvajal NP PCP - [facility] 11/27/23 Unemployment Claims Adjudicator Relationship Specialty Start Date End Date Ysabel Cabral MD [address] [place] [address] PCP - [facility] Family Medicine 07/29/22 Chloe Carvajal NP PCP - [facility] 11/27/23 Unemployment Claims Adjudicator Relationship Specialty Start Date End Date Ysabel Cabral MD [address] [place] [address] PCP - [facility] 07/29/22 Chloe Carvajal KARATE BLACK BELT PCP - [facility] 11/27/23 Teresa Ornelas, RACK MAKER-PROCESS ENGINEERING INTERN [address] [facility] [address] [place] [address] Nurse Practitioner Psychiatry 03/14/24 Unemployment Claims Adjudicator Relationship Specialty Start Date End Date Ysabel Cabral MD [address] [place] [address] PCP - [facility] 07/29/22 Chloe Carvajal NP PCP - [facility] 11/27/23 Teresa Ornelas, RACK MAKER-PROCESS ENGINEERING INTERN [address] [facility] [address] [place] [address] Nurse Practitioner Psychiatry 03/14/24 Unemployment Claims Adjudicator Relationship Specialty Start Date End Date Ysabel Cabral MD [address] [facility] [place] [address] PCP - General Family Medicine 07/29/22 Chloe Carvajal, KARATE BLACK BELT PCP - [facility] 11/27/23 Teresa Ornelas, RACK MAKER-PROCESS ENGINEERING INTERN [address] [address] Nurse Practitioner Psychiatry 03/14/24 Unemployment Claims Adjudicator Relationship Specialty Start Date End Date Ysabel Cabral MD [address] [facility] [place] [address] PCP - General [facility] 07/29/22 Ysabel Cabral MD [address] [facility] [place] [address] PCP - [facility] 02/27/24 Teresa Ornelas, RACK MAKER-PROCESS ENGINEERING INTERN [address] [place] [address] Nurse Practitioner Psychiatry 03/14/24 Unemployment Claims Adjudicator Relationship Specialty Start Date End Date Ysabel Cabral MD [address] [facility] [place] [address] PCP - General Family Medicine 07/29/22 Ysabel Cabral MD [address] [facility] [place] [address] PCP - [facility] 02/27/24 Teresa Ornelas RACK MAKER-PROCESS ENGINEERING INTERN [address] [facility] [address] [place] [address] Nurse Practitioner Psychiatry 03/14/24 Unemployment Claims Adjudicator Relationship Specialty Start Date End Date Ysabel Cabral MD [address] [place] [address] PCP - General [facility] Medicine 07/29/22 Ysabel Cabral MD [address] [place] [address] PCP - [facility] 02/27/24 Jo AnnTeresa Iniguez APRN-[facility] [address] [facility] [address] [place] [address] Nurse Practitioner Psychiatry 03/14/24 FOR RECORDS PERTAINING [...] BE BASED ON THE PRIMARY CLINICAL RECORDS. [facility] [employer] provides no warranty or guarantee of the accuracy or completeness of information in this document.
--- NOTE | 2024-04-29 15:19 | US_ITS ---
[place] [id number] Patient Name: JESSICA MOELLER MRN: [id number] date: 1985 Sex: F Assigned Patient Location: [facility] Current Patient Location: [facility] Accession/Order Number: [id number] Exam Date: 04/29/2024 16:11 Report Date: 04/29/2024 16:12 At the request of: MARGO SARMIENTO Procedure: US OB BPP w non-stress Biophysical profile. Reason for exam: Advanced maternal age. COMPARISON: BPP 04/22/2024 TECHNIQUE: Transabdominal imaging of the gravid uterus was obtained. FINDINGS: Field Interviewer reports the biophysical profile is 8 out of 8. JT is normal at 17.9 cm. heart rate 129bpm. US/US OB BPP w non-stress IMPRESSION: BPP 8 out of 8. Impression dictated by: Alexei Ibrahim Jr., D.O.04/29/2024 4:12 PM Dictation Location: [place] [address] Electronically authenticated by: [id number] Y Date: 04/29/2024 16:12
[2024-04-29 16:03] VITALS: BP 108/70; PULSE 104
== END 2024-04-29 16:35 | disposition home or self-care (01) ==
LOC: US 00:48 → FBC 15:17
PROVIDERS: PCP Family Medicine; Visit Provider Physician Assistant
DX: O09.523 Supervision of elderly multigravida, third trimester (principal); Z3A.34 34 weeks gestation of pregnancy
CPT/HCPCS: 76818

== ENCOUNTER 2024-05-06 19:46 | Outpatient (OUT) | payer OTHER, SELFPAY ==
--- OUTSIDE RECORDS SUMMARY | 2024-05-06 19:50 | XMS_ITS | CCD ---
Author Organization [facility] Care Team Providers Care Track Rider Name Role Phone Vicky Joe Unavailable WEST, DR SANON Admitting Unavailable KARASIK, DR SANON Attending Unavailable KARASIK, DR SANON Consulting Unavailable KARASIK, DR SANON Attending Unavailable KARASIK, DR SANON Consulting Unavailable KARASIK, DR SANON Admitting Unavailable CHLOE CARVAJAL Attending Unavailable CHLOE CARVAJAL Consulting Unavailable CHLOE CARVAJAL Admitting Unavailable Ysabel Cabral MD Primary Care Provider [phone] Ale Zaldivar MD Unavailable [phone] Dillon MURAL ARTIST, Chloe Swift Unavailable Dillon MURAL ARTIST, Chloe R Unavailable Jo Ann-Nosmahendra SALES AND LEASING CONSULTANT-CREDIT OPERATIONS SPECIALISTTeresa Unavailable Ysabel Cabral MD Unavailable RGAHAVENDRA VASQUEZ Attending Unavailable TERESA ORNELAS Attending Unavailab RAGHAVENDRA Bustamante Attending Unavailable RAGHAVENDRA VASQUEZ Attending Unavailable JO ANN-NOSSETERESA Butterfield Attending Unavailab le JO ANN-NOSSETERESA Butterfield Attending Unavailab EVONNE Hargrove Attending Unavailable TERESA ORNELAS Attending Unavailab YSABEL Don Attending Unavailable CHLOE CARVAJAL Attending Unavailable CHLOE CARVAJAL Referring Unavailable YSABEL CABRAL Attending Unavailable YSABEL CABRAL Attending Unavailable TERESA ORNELAS Attending Unavailab YSABEL Don Attending Unavailable EVONNE CHILDRESS Attending Unavailable YSABEL CABRAL Attending Unavailable JO ANN-CHAYOSETERESA Butterfield Attending Unavailab RAGHAVENDRA Bustamante Attending Unavailable TERESA ORNELAS Attending Unavailab RAGHAVENDRA Bustamante Attending Unavailable RAGHAVENDRA VASQUEZ Attending Unavailable EMERITA WARREN Attending Unavailable RAGHAVENDRA VASQUEZ Attending Unavailable Allergies Allergy Classification Reported Allergen(s) Allergy Type Date of Onset Reaction(s) Facility (1 source) Aspirin Drug Allergy shortness of breath [facility] Other (20 sources) Diclofenac Drug Allergy 07-05-19 Unknown [facility] Other (20 sources) Ibuprofen Drug Allergy 07-05-19 Unknown [facility] Other (20 sources) Naproxen Drug Allergy 07-05-19 Unknown [facility] Other (20 sources) NSAIDs Drug allergy 07-05-19 Unknown [facility] Other (1 source) Aspirin Drug Allergy 02-26-18 90 [facility] Repository (1 source) cyclobenzaprine Drug Allergy 01-10-20 15 [facility] (1 source) Diclofenac Drug Allergy 01-10-20 15 [facility] (1 source) Ibuprofen Drug Allergy 08-04-19 16 [facility] (1 source) NSAIDs Drug allergy (disorder) 01-02-20 14 [facility] (20 sources) Aluminum aspirin Drug Allergy 07-05-19 23 [facility] (20 sources) Amitriptyline Drug Allergy 03-22-19 18 [facility] (20 sources) cyclobenzaprine Drug Allergy 01-24-20 16 [facility] (20 sources) Lamotrigine Allergy to substance 07-05-19 23 [facility] (20 sources) meloxicam Drug Allergy 07-05-19 23 Unknown [facility] (20 sources) Sertraline Drug Allergy 01-01-20 24 [facility] Medications Current Medications Medication Drug Class(es) [...] 1 tablet by mouth every twenty-four hours June.07/25 1.5-30 MG-MCG 1 tablet Orally Once a [...] 3 01/10/2024 Active take 1 capsule by [facility] every twenty-four hours Omeprazole 20 MG 1 [...] 20 tablet 1 09/24/2023 11/28/2023 Discontinued (Other) [id number] 200 actuat albuterol 0.09 mg/actuat metered dose [...] anxiety disorder; Translations: [Generalized anxiety disorder] Onset: 01-2024 Chronic Asthma (20 sources) Asthma; Translations: [Unspecified [...] elderly multigravida, third trimester] 04-08-2024 Episodic Other complications of (1 source) size does not accord with dates; Translations: [Uterine size-date discrepancy, unspecified trimester] 04-29-2024 Episodic Other female genital disorders (2 sources) Vaginal discharge; Translations: [Other specified noninflammatory disorders of vagina] 01-10-2024 Episodic Other gastrointestinal disorders (20 sources) Irritable bowel syndrome; Translations: [Irritable bowel syndrome without diarrhea] Onset: 7 12-28-2022 Chronic Other and delivery including normal (17 sources) First trimester ; Translations: [Encounter for [...] [31 weeks gestation of ] 04-08-2024 Episodic Residual codes; unclassified (1 source) Gestation period, 34 weeks; Translations: [34 weeks gestation of ] 04-29-2024 Episodic Unclassified (2 sources) CONTACT W/AND (SUSP) [...] Facility US OB BPP W NON-STRESS on 04-29-2024 [place] [address] Ultrasound Report Signed Patient: TIKI MOELLER MR#: [id number] : 1985 Acct:[id number] Age/Sex: 38 / F ADM Date: 04/29/24 Loc: [place] [address]: Veda Sarmiento Ordering Physician: Veda Sarmietno Date of Service: 04/29/24 Procedure(s): US OB BPP w non-stress Accession Number(s): [id number] cc: Veda Sarmiento; YSABEL CABRAL [place] [id number] Patient Name: TIKI MOELLER MRN: [facility]:[id number] date: 1985 Sex: F Assigned Patient Location: [facility] Current Patient Location: [facility] Accession/Order Number: [id number] Exam Date: 04/29/2024 16:11 Report Date: 04/29/2024 16:12 At the request of: VEDA SARMIENTO Procedure: US OB BPP w non-stress Biophysical profile. Reason for exam: Advanced maternal age. COMPARISON: BPP 04/22/2024 TECHNIQUE: Transabdominal imaging of the gravid uterus was obtained. FINDINGS: Guest Relation Officer reports the biophysical profile is 8 out of 8. JT is normal at 17.9 cm. heart rate 129bpm. US/US OB BPP w non-stress IMPRESSION: BPP 8 out of 8. Impression dictated by: Alexei Ibrahim Jr. DTiOTi04/29/2024 4:12 PM Dictation Location: [facility]-23 Electronically authenticated by: [id number] Y Date: 04/29/2024 16:12 Dictated By: Alexei Ibrahim M.D. Signed By: 04/29/241613 DD/ 11 TD/TT: Line Installer Repairer: [facility] Radiology, Radiologist, - 04/29/2024 [place] [address] Ultrasound Report Signed Patient: TIKI MOELLER MR#: [id number] : 1985 Acct:[id number] Age/Sex: 38 / F ADM Date: 04/29/24 Loc: [place] [address]: Veda Sarmiento Ordering Physician: Veda Sarmiento Date of Service: 04/29/24 Procedure(s): US OB BPP w non-stress Accession Number(s): [id number] cc: Veda Sarmiento; YSABEL CABRAL [place] [address] Patient Name: TIKI MOELLER MRN: [facility]:[id number] date: 1985 Sex: F Assigned Patient Location: [facility] Current Patient Location: [facility] Accession/Order Number: [id number] Exam Date: 04/29/2024 16:11 Report Date: 04/29/2024 16:12 At the request of: VEDA SARMIENTO Procedure: US OB BPP w non-stress Biophysical profile. Reason for exam: Advanced maternal age. COMPARISON: BPP 04/22/2024 TECHNIQUE: Transabdominal imaging of the gravid uterus was obtained. FINDINGS: Guest Relation Officer reports the biophysical profile is 8 out of 8. JT is normal at 17.9 cm. heart rate 129bpm. US/US OB BPP w non-stress IMPRESSION: BPP 8 out of 8. Impression dictated by: Alexei Ibrahim Jr., DTiOTi04/29/2024 4:12 PM Dictation Location: [facility]-23 Electronically authenticated by: [id number] Y Date: 04/29/2024 16:12 Dictated By: Alexei Ibrahim M.D. Signed By: 04/29/241613 DD/ 11 TD/TT: Line Installer Repairer: [facility] Radiology Study observation (narrative) [facility] US OB BPP W NON-STRESS Ordered By: Radiologist Radiology on 04-29-2024 [facility] Work Phone: Urinalysis macro (dipstick) panel (U)on 04-29-2024 Bilirubin, UA Negative Negative - 4(70) +++ mg/dL [facility] Blood, UA Negative Negative - 50 Armand/mcL [facility] Clarity, UA Clear [facility] Color, UA Yellow [facility] Glucose, UA Negative Negative - 2000(110) ++++ mg/dL [facility] Interpretation and review of laboratory results Abnormal [facility] Ketones, UA Negative Negative - 160(16) ++++ mg/dL [facility] Leukocytes, UA Trace Negative - 500+++ Doe/mcL [facility] Nitrite, UA Negative Negative - Positive [facility] pH, UA 7 5 - 9 [facility] Protein, UA Positive Negative - 2000(20) ++++ mg/dL [facility] Comment on above: 30mg/dL Spec Grav, UA 1.02 1 - 1.03 [facility] Urobilinogen, UA 1.0 0.2 - 12 mg/dL [facility] US OB BPP W NON-STRESS on 04-22-2024 [place] [id number] Ultrasound Report Signed Patient: TIKI MOELLER MR#: [id number] : 1985 Acct:[id number] Age/Sex: 38 / F ADM Date: 04/22/24 Loc: US Attending Dr: Veda Sarmiento Ordering Physician: Veda Sarmiento Date of Service: 04/22/24 Procedure(s): US OB BPP w non-stress Accession Number(s): [id number] cc: Veda Sarmiento; YSABEL CABRAL [place] [phone] Patient Name: TIKI MOELLER MRN: [facility]:[id number] date: 1985 Sex: F Assigned Patient Location: [facility] Current Patient Location: Accession/Order Number: [id number] Exam Date: 04/22/2024 23:02 Report Date: 04/22/2024 23:05 At the request of: VEDA SARMIENTO Procedure: US OB BPP w non-stress Biophysical profile. Reason for exam: Advanced maternal age. COMPARISON: BPP 04/15/2024. TECHNIQUE: Transabdominal imaging of the gravid uterus was obtained. FINDINGS: Guest Relation Officer reports the biophysical profile is 8 out of 8. JT is normal at 13.9 cm. heart rate 156 bpm. US/US OB BPP w non-stress IMPRESSION: BPP 8 out of 8. Impression dictated by: Alexei Ibarhim Jr., D.O.04/22/2024 11:05 PM Dictation Location: [place] [address] Electronically authenticated by: [id number] Y Date: 04/22/2024 23:05 Dictated By: Alexei Ibrahim M.D. Signed By: 04/22/242307 DD/ 04 TD/TT: Line Installer Repairer: [facility] Radiology, Radiologist, MD - 04/22/2024 [place] [id number] Ultrasound Report Signed Patient: TIKI MOELLER MR#: [id number] : 1985 Acct:[id number] Age/Sex: 38 / F ADM Date: 04/22/24 Loc: US Attending Dr: Veda Sramiento Ordering Physician: Veda Sarmiento Date of Service: 04/22/24 Procedure(s): US OB BPP w non-stress Accession Number(s): [id number] cc: Veda Sarmiento; YSABEL CABRAL [address] [address] Patient Name: TIKI MOELLER MRN: [facility]:[id number] date: 1985 Sex: F Assigned Patient Location: [facility] Current Patient Location: Accession/Order Number: [id number] Exam Date: 04/22/2024 23:02 Report Date: 04/22/2024 23:05 At the request of: VEDA SARMIENTO Procedure: US OB BPP w non-stress Biophysical profile. Reason for exam: Advanced maternal age. COMPARISON: BPP 04/15/2024. TECHNIQUE: Transabdominal imaging of the gravid uterus was obtained. FINDINGS: Guest Relation Officer reports the biophysical profile is 8 out of 8. JT is normal at 13.9 cm. heart rate 156 bpm. US/US OB BPP w non-stress IMPRESSION: BPP 8 out of 8. Impression dictated by: Alexei Ibrahim Jr., D.O.04/22/2024 11:05 PM Dictation Location: [place] [address] Electronically authenticated by: [id number] Y Date: 04/22/2024 23:05 Dictated By: Alexei Ibrahim M.D. Signed By: 04/22/242307 DD/ 04 TD/TT: Line Installer Repairer: [facility] Radiology Study observation (narrative) [facility] US OB BPP W NON-STRESS Ordered By: Radiologist Radiology on 04-22-2024 [facility] Work Phone: US OB BPP W NON-STRESS on 04-15-2024 [place] [address] Ultrasound Report Signed Patient: TIKI MOELLER MR#: [id number] : 1985 Acct:[id number] Age/Sex: 38 / F ADM Date: 04/15/24 Loc: [place] [address]- Attending Dr: Raghavendra Vasquez D.O. Ordering Physician: Raghavendra Vasquez D.O. Date of Service: 04/15/24 Procedure(s): US OB BPP w non-stress Accession Number(s): [id number] cc: YSABEL CABRAL ; Raghavendra Vasquez D.O. The [place] [id number] Patient Name: TIKI MOELLER MRN: [id number] date: 1985 Sex: F Assigned Patient Location: [facility] Current Patient Location: [facility] Accession/Order Number: [id number] Exam Date: 04/15/2024 16:26 Report Date: 04/15/2024 16:31 At the request of: RAGHAVENDRA VASQUEZ DO Procedure: US OB BPP w non-stress BIOPHYSICAL PROFILE: CLINICAL INFORMATION: Multigravida of advanced maternal age TECHNIQUE: Multiple ultrasonographic scans of the lower abdomen and pelvis were obtained. The fetus is in the cephalic presentation. The measurements are consistent with a 33 week 3 day gestation. The heart rate [id number] beats per minute. FINDINGS: TONE: 1 or [...] Shelli Mcghee M.D.04/15/2024 4:31 PM Dictation Location: [place] [address] Electronically authenticated by: [id number] Y Date: 04/15/2024 16:31 Dictated By: Shelli Mcghee M.D. Signed By: 04/15/24 1633 DD/ 1631 TD/TT: Line Installer Repairer: [facility] Radiology, Radiologist, - 04/15/2024 [place] [address] Ultrasound Report Signed Patient: TIKI MOELLER MR#: [id number] : 1985 Acct:[id number] Age/Sex: 38 / F ADM Date: 04/15/24 Loc: [facility] 250-[address]: Raghavendra Vasquez D.O. Ordering Physician: Raghavendra Vasquez D.O. Date of Service: 04/15/24 Procedure(s): US OB BPP w non-stress Accession Number(s): [id number] cc: YSABEL CABRAL ; Raghavendra Vasquez D.O. The [place] [id number] Patient Name: TIKI MOELLER MRN: [facility]:[id number] date: 1985 Sex: F Assigned Patient Location: [facility] Current Patient Location: [facility] Accession/Order Number: [id number] Exam Date: 04/15/2024 16:26 Report Date: 04/15/2024 16:31 At the request of: RAGHAVENDRA VASQUEZ DO Procedure: US OB BPP w non-stress BIOPHYSICAL PROFILE: CLINICAL INFORMATION: Multigravida of advanced maternal age TECHNIQUE: Multiple ultrasonographic scans of the lower abdomen and pelvis were obtained. The fetus is in the cephalic presentation. The measurements are consistent with a 33 week 3 day gestation. The heart rate [id number] beats per minute. FINDINGS: TONE: 1 or [...] Shelli Mcghee M.D.04/15/2024 4:31 PM Dictation Location: [place] [address] Electronically authenticated by: [id number] Y Date: 04/15/2024 16:31 Dictated By: Shelli Mcghee M.D. Signed By: 04/15/24 163 DD/ 163 TD/TT: Line Installer Repairer: [facility] Radiology Study observation (narrative) [facility] US OB BPP W NON-STRESS Ordered By: Radiologist Radiology on 04-15-2024 [facility] Work Phone: US OB GROWTHon 04-15-2024 [place] [address] Ultrasound Report Signed Patient: TIKI MOELLER MR#: [id number] : 1985 Acct:[id number] Age/Sex: 38 / F ADM Date: 04/15/24 Loc: [facility] 250-[address]: Raghavendra Vasquez D.O. Ordering Physician: Raghavendra Vasquez D.O. Date of Service: 04/15/24 Procedure(s): US OB growth Accession Number(s): [id number] cc: YSABEL CABRAL ; Raghavendra Vasquez D.O. [place] [address] Patient Name: TIKI MOELLER MRN: [id number] date: 1985 Sex: F Assigned Patient Location: [facility] Current Patient Location: [facility] Accession/Order Number: [id number] Exam Date: 04/15/2024 16:31 Report Date: 04/15/2024 [...] Shelli Mcghee M.D.04/15/2024 4:37 PM Dictation Location: [place] [address] Electronically authenticated by: [id number] Y Date: 04/15/2024 16:37 Dictated By: Shelli Mcghee M.D. Signed By: 04/15/24 1640 DD/ 1637 TD/TT: Line Installer Repairer: [facility] Radiology, Radiologist, - 04/15/2024 [place] [address] Ultrasound Report Signed Patient: TIKI MOELLER MR#: [id number] : 1985 Acct:[id number] Age/Sex: 38 / F ADM Date: 04/15/24 Loc: [facility] 250-[address]: Raghavendra Vasquez D.O. Ordering Physician: Raghavendra Vasquez D.O. Date of Service: 04/15/24 Procedure(s): US OB growth Accession Number(s): [id number] cc: YSABEL CABRAL ; Raghavendra Vasquez D.O. [place] [address] Patient Name: TIKI MOELLER MRN: [facility]:[id number] date: 1985 Sex: F Assigned Patient Location: [facility] Current Patient Location: [facility] Accession/Order Number: [id number] Exam Date: 04/15/2024 16:31 Report Date: 04/15/2024 [...] Shelli Mcghee M.D.04/15/2024 4:37 PM Dictation Location: [place] [address] Electronically authenticated by: [id number] Y Date: 04/15/2024 16:37 Dictated By: Shelli Mcghee M.D. Signed By: 04/15/24 1640 DD/ 1637 TD/TT: Line Installer Repairer: [facility] Radiology Study observation (narrative) [facility] US OB GROWTHOrdered By: Liang ologist Radiology on 04-15-2024 [facility] Work Phone: Urinalysis macro (dipstick) panel (U)on 04-08-2024 Bilirubin, UA Negative Negative - 4(70) +++ mg/dL [facility] Blood, UA Negative Negative - 50 Armand/mcL [facility] Clarity, UA Clear [facility] Color, UA Yellow [facility] Glucose, UA Negative Negative - 1999(110) ++++ mg/dL [facility] Interpretation and review of laboratory results Abnormal [facility] Ketones, UA Negative Negative - 160(16) ++++ mg/dL [facility] Leukocytes, UA Negative Negative - 500+++ Doe/mcL [facility] Nitrite, UA Negative Negative - Positive [facility] pH, UA 7 5 - 9 [facility] Protein, UA Trace Negative - 2000(20) ++++ mg/dL [facility] Spec Grav, UA 1.025 1 - 1.03 [facility] Urobilinogen, UA 1.0 0.2 - 12 mg/dL [facility] US OB GROWTHon 03-25-2024 [place] [address] Ultrasound Report Signed Patient: TIKI MOELLER MR#: [id number] : 1985 Acct:[id number] Age/Sex: 38 / F ADM Date: 03/25/24 Loc: US Attending Dr: Raghavendra Vasquez D.O. Ordering Physician: Raghavendra Vasquez D.O. Date of Service: 03/25/24 Procedure(s): US OB growth Accession Number(s): [id number] cc: YSABEL CABRAL ; Raghavendra Vasquez D.O. [facility] [place] [id number] Patient Name: TIKI MOELLER MRN: [facility]:[id number] date: 1985 Sex: F Assigned Patient Location: US Current Patient Location: US Accession/Order Number: [id number] Exam Date: 03/25/2024 11:02 Report Date: 03/25/2024 [...] Signed By: 03/25/24 1150 DD/ 1147 TD/TT: Line Installer Repairer: [facility] Radiology, Radiologist, - 03/25/2024 [place] [address] Ultrasound Report Signed Patient: TIKI MOELLER MR#: [id number] : 1985 Acct:[id number] Age/Sex: 38 / F ADM Date: 03/25/24 Loc: US Attending Dr: Raghavendra Vasquez D.O. Ordering Physician: Raghavendra Vasquez D.O. Date of Service: 03/25/24 Procedure(s): US OB growth Accession Number(s): [id number] cc: YSABEL CABRAL ; Raghavendra Vasquez D.O. [place] [address] Patient Name: TIKI MOELLER MRN: [id number]:[id number] date: 1985 Sex: F Assigned Patient Location: US Current Patient Location: US Accession/Order Number: [id number] Exam Date: 03/25/2024 11:02 Report Date: 03/25/2024 [...] IMPRESSION: Normal interval growth Electronically authenticated by: RAMÍRZE NAVA Date: 03/25/2024 11:47 Dictated By: Ramírez Nava M.D. Signed By: 03/25/24 1150 DD/ 1147 TD/TT: Line Installer Repairer: [facility] Radiology Study observation (narrative) [facility] US OB GROWTHOrdered By: Liang ologist Radiology on 03-25-2024 [facility] Work Phone: Urinalysis macro (dipstick) panel (U)on 03-25-2024 Bilirubin, UA Positive Negative - 4(70) +++ mg/dL [facility] Blood, UA Negative Negative - 50 Armand/mcL [facility] Clarity, UA Clear [facility] Color, UA Yellow [facility] Glucose, UA Negative Negative - 1999(110) ++++ mg/dL [facility] Interpretation and review of laboratory results Abnormal [facility] Ketones, UA Positive Negative - 160(16) ++++ mg/dL [facility] Leukocytes, UA Negative Negative - 500+++ Doe/mcL [facility] Nitrite, UA Positive Negative - Positive [facility] pH, UA 6.5 5 - 9 [facility] Protein, UA Positive Negative - 1999(20) ++++ mg/dL [facility] Spec Grav, UA 1.025 1 - 1.03 [facility] Urobilinogen, UA 1.0 0.2 - 12 mg/dL [facility] Urinalysis macro (dipstick) panel (U)on 03-11-2024 Bilirubin, UA Negative Negative - 4(70) +++ mg/dL [facility] Blood, UA Negative Negative - 50 Armand/mcL [facility] Clarity, UA Clear [facility] Color, UA Yellow [facility] Glucose, UA Negative Negative - 1999(110) ++++ mg/dL [facility] Interpretation and review of laboratory results Abnormal [facility] Ketones, UA Negative Negative - 160(16) ++++ mg/dL [facility] Leukocytes, UA Negative Negative - 500+++ Doe/mcL [facility] Nitrite, UA Negative Negative - Positive [facility] pH, UA 7 5 - 9 [facility] Protein, UA Positive Negative - 1999(20) ++++ mg/dL [facility] Comment on above: 30 Spec Grav, UA 1.025 1 - 1.03 [facility] Urobilinogen, UA 0.2 0.2 - 12 mg/dL [facility] ALL CBC WITH AUTO DIFFon BASOPHILS ABSOLUTE AUTO 0 [facility] Basophils/100 WBC (Bld) 0.2 % 0.2 - 2.0 % [facility] Eosinophils/100 WBC (Bld) 0.6 % Low 0.9 - 7.0 % [facility] Erythrocyte distribution width (RBC) [Ratio] 13 % 11.0 - 15.0 % [facility] Hematocrit (Bld) [Volume fraction] 32.2 % Low 36.0 - 48.0 % [facility] Hemoglobin (Bld) [Mass/Vol] 10.3 g/dL Low 12.0 - 16.0 g/dL [facility] IMMATURE GRANULOCYTES ABS AUTO 0.06 High [facility] Immature granulocytes/100 WBC (Bld) 0.6 % High 0.0 - 0.5 % [facility] Interpretation and review of laboratory results Abnormal [facility] LYMPHOCYTES ABSOLUTE AUTO 1.8 [facility] Lymphocytes/100 WBC (Bld) 19.1 % Low 20.5 - 60.0 % [facility] MCH (RBC) [Entitic mass] 25.9 pg Low 26.7 - 34.0 pg [facility] MCHC (RBC) [Mass/Vol] 32 g/dL 29.9 - 35.2 g/dL [facility] MCV (RBC) [Entitic vol] 81.1 fL 81.0 - 99.0 fL [facility] MONOCYTES ABSOLUTE AUTO 0.5 [facility] Monocytes/100 WBC (Bld) 5.5 % 1.7 - 12.0 % [facility] NEUTROPHILS ABSOLUTE AUTO 7 High [facility] Neutrophils/100 WBC (Bld) 74 % 43.0 - 75.0 % [facility] Platelet mean volume (Bld) [Entitic vol] 10.7 fL 9.5 - 13.5 fL [facility] EO # 0.1 [facility] PLT 238 [facility] RBC 3.97 Low [facility] WBC 9.4 [facility] UA (CLEAN/CATCH) CREDIT OPERATIONS SPECIALIST/LA RO IF IND.on 03-07-2024 BILIRUBIN URINE Negative NEGATIVE [facility] BLOOD URINE Negative NEGATIVE [facility] Clarity (U) CLEAR CLEAR [facility] Color (U) YELLOW YELLOW [facility] GLUCOSE URINE UA Negative NEGATIVE mg/dL [facility] Interpretation and review of laboratory results Abnormal [facility] Ketones Ql (U) TRACE Abnormal NEGATIVE mg/dL [facility] Leukocyte esterase Test strip Ql (U) Negative NEGATIVE [facility] NITRITE URINE Negative NEGATIVE [facility] pH (U) 7.5 [pH] 5.0 - 9.0 [facility] PROTEIN URINE TRACE NEG/TRACE mg/dL [facility] SPECIFIC GRAVITY URINE 1.025 1.005 - 1.025 [facility] URINE MICROSCOPIC INDICATED NO [facility] UROBILINOGEN URINE 1.0 EU/dL 0.2 - 1.0 EU/dL [facility] Urinalysis macro (dipstick) panel (U)on 02-11-2024 Bilirubin, UA Negative Negative - 4(70) +++ mg/dL [facility] Blood, UA Negative Negative - 50 Armand/mcL [facility] Clarity, UA Clear [facility] Color, UA Yellow [facility] Glucose, UA Negative Negative - 1999(110) ++++ mg/dL [facility] Interpretation and review of laboratory results Abnormal [facility] Ketones, UA Negative Negative - 160(16) ++++ mg/dL [facility] Leukocytes, UA Negative Negative - 500+++ Doe/mcL [facility] Nitrite, UA Negative Negative - Positive [facility] pH, UA 7.5 5 - 9 [facility] Protein, UA Trace Negative - 1999(20) ++++ mg/dL [facility] Spec Grav, UA 1.015 1 - 1.03 [facility] Urobilinogen, UA 0.2 0.2 - 12 mg/dL [facility] IGP,APTIMA HPV,AGE GDLNon AGE GDLN ACOG TESTING Note . [facility] Comment on above: TESTS RESULT FLAG UN ITS REF RANGE LAB Clinician Provided Cytology Information Source.............Cervix Other.............. No. of containers..01 ThinPrep Vial Age Algo ACOG Beverly... FLAG LEGEND: L-Low Normal,H-High Normal,LL-Alert Low,HH-Alert High <-Panic Low,>-Panic High,A-Abnormal,AA-Critical Abnormal Performed at: 01 =[address] [address] Judith Ventura MD, HPV APTIMA Negative Negative [facility] Comment on above: This nucleic acid am plification test detects fourteen high- risk HPV types (16,18,31,33,35,39,45,51,52,56,58,59,66,68) without differentiation. Performed at: =[address] [id number] Roll Hand: Judith Ventura MD, Phone: [phone] Performed at: [address] [id number] Roll Hand: Judith Ventura MD, Phone: [phone] IGP, APTIMA HPV, RFX 16/18,45 Note . [facility] Comment on above: TESTS RESULT FLAG UN ITS REF RANGE LAB DIAGNOSIS: 02 NEGATIVE FOR INTRAEPITHELIAL LESION OR MALIGNANCY. Specimen adequacy: 02 Satisfactory for evaluation. Endocervical and/or squamous metaplastic cells (endocervical component) are present. Performed by: Kae Frank, Industrial Psychology Teacher (ASCP) . 02 Note: Note 02 The [...] <-Panic Low,>-Panic High,A-Abnormal,AA-Critical Abnormal Performed at: [address] [address] Judith Ventura MD, SPATULA-ALONE CERVIX [facility] RECURRENT VAGINITIS (HTRX)on 01-11-2024 ATOPOBIUM VAGINAE 0 [facility] ATOPOBIUM VAGINAE Not detected [facility] BVAB 2,3 (BACTERIAL VAGINOSIS ASSOCIATED BACTERIA 2, 3); MOBILUNCUS SPP 0 [facility] BVAB 2,3 (BACTERIAL VAGINOSIS ASSOCIATED BACTERIA 2, 3); MOBILUNCUS SPP Not detected [facility] LOC ALBICANS, PARAPSILOSIS, TROPICALIS 0 [facility] LOC ALBICANS, PARAPSILOSIS, TROPICALIS Not detected [facility] LOC GLABRATA 0 [facility] LOC GLABRATA Not detected [facility] LOC KRUSEI 0 [facility] LOC KRUSEI Not detected [facility] CHLAMYDIA TRACHOMATIS 0 [facility] CHLAMYDIA TRACHOMATIS Not detected [facility] GARDNERELLA VAGINALIS 0 [facility] GARDNERELLA VAGINALIS Not detected [facility] MEGASPHAERA (TYPES 1, 2) 0 [facility] MEGASPHAERA (TYPES 1, 2) Not detected [facility] MYCOPLASMA GENITALIUM 0 [facility] MYCOPLASMA GENITALIUM Not detected [facility] NEISSERIA GONORRHOEAE 0 [facility] NEISSERIA GONORRHOEAE Not detected [facility] TRICHOMONAS VAGINALIS 0 [facility] TRICHOMONAS VAGINALIS Not detected [facility] Urinalysis macro (dipstick) panel (U)on 01-10-2024 Bilirubin, UA Negative Negative - 4(70) +++ mg/dL [facility] Blood, UA Negative Negative - 50 Armand/mcL [facility] Clarity, UA Clear [facility] Color, UA Yellow [facility] Glucose, UA Negative Negative - 1999(110) ++++ mg/dL [facility] Interpretation and review of laboratory results Abnormal [facility] Ketones, UA Positive Negative - 160(16) ++++ mg/dL [facility] Leukocytes, UA Negative Negative - 500+++ Doe/mcL [facility] Nitrite, UA Negative Negative - Positive [facility] pH, UA 7 5 - 9 [facility] Protein, UA Negative Negative - 2000(20) ++++ mg/dL [facility] Spec Grav, UA 1.015 1 - 1.03 [facility] Urobilinogen, UA 1.0 0.2 - 12 mg/dL [facility] ALL CBC WITH AUTO DIFFon BASOPHILS ABSOLUTE AUTO 0.0 [facility] Basophils/100 WBC (Bld) 0.2 % 0.2 - 2.0 % [facility] Eosinophils/100 WBC (Bld) 2.3 % 0.9 - 7.0 % [facility] Erythrocyte distribution width (RBC) [Ratio] 12.3 % 11.0 - 15.0 % [facility] Hematocrit (Bld) [Volume fraction] 37.1 % 36.0 - 48.0 % [facility] Hemoglobin (Bld) [Mass/Vol] 12.3 g/dL 12.0 - 16.0 g/dL [facility] IMMATURE GRANULOCYTES ABS AUTO 0.04 High [facility] Immature granulocytes/100 WBC (Bld) 0.4 % 0.0 - 0.5 % [facility] Interpretation and review of laboratory results Abnormal [facility] LYMPHOCYTES ABSOLUTE AUTO 2.7 [facility] Lymphocytes/100 WBC (Bld) 28.4 % 20.5 - 60.0 % [facility] MCH (RBC) [Entitic mass] 28.0 pg 26.7 - 34.0 pg [facility] MCHC (RBC) [Mass/Vol] 33.2 g/dL 29.9 - 35.2 g/dL [facility] MCV (RBC) [Entitic vol] 84.3 fL 81.0 - 99.0 fL [facility] MONOCYTES ABSOLUTE AUTO 0.5 [facility] Monocytes/100 WBC (Bld) 5.0 % 1.7 - 12.0 % [facility] NEUTROPHILS ABSOLUTE AUTO 6.0 [facility] Neutrophils/100 WBC (Bld) 63.7 % 43.0 - 75.0 % [facility] Platelet mean volume (Bld) [Entitic vol] 10.4 fL 9.5 - 13.5 fL [facility] TBH EO # 0.2 [facility] TB PLT [address] [facility] RBC 4.40 [facility] WBC 9.4 [facility] Urinalysis macro (dipstick) panel (U)on 11-28-2023 Bilirubin, UA Negative Negative - 4(70) +++ mg/dL [facility] Blood, UA Negative Negative - 50 Armand/mcL [facility] Clarity, UA Clear [facility] Color, UA Yellow [facility] Glucose, UA Negative Negative - 1999(110) ++++ mg/dL [facility] Interpretation and review of laboratory results Normal [facility] Ketones, UA Negative Negative - 160(16) ++++ mg/dL [facility] Leukocytes, UA Negative Negative - 500+++ Doe/mcL [facility] Nitrite, UA Negative Negative - Positive [facility] pH, UA 7.0 5 - 9 [facility] Protein, UA Negative Negative - 2000(20) ++++ mg/dL [facility] Spec Grav, UA 1.025 1 - 1.03 [facility] Urobilinogen, UA 1.0 0.2 - 12 mg/dL [facility] URINE CULTURE, ROUTINEon Bacteria identified Cx Nom (U) Urine Culture, Routine [facility] Bacteria identified Cx Nom (U) Culture shows less than 10,000 colony forming units of bacteria per [facility] Bacteria identified Cx Nom (U) milliliter of urine. This colony count is not generally considered [facility] Bacteria identified Cx Nom (U) to be clinically significant. [facility] Bacteria identified Cx Nom (U) Performed at: [facility] Bacteria identified Cx Nom (U) [address], [place] [id number] [facility] Bacteria identified Cx Nom (U) Roll Hand: Michael Berry PhD, Phone: [phone] [facility] HCG ( test) Ql (U)o n 11-01-2023 Interpretation and review of laboratory results Abnormal [facility] Preg Test, Ur Positive [facility] Urinalysis macro (dipstick) panel (U)on 11-01-2023 Bilirubin, UA Negative Negative - 4(70) +++ mg/dL [facility] Blood, UA Negative Negative - 50 Armand/mcL [facility] Clarity, UA Clear [facility] Color, UA Yellow [facility] Glucose, UA Negative Negative - 1999(110) ++++ mg/dL [facility] Interpretation and review of laboratory results Normal [facility] Ketones, UA Negative Negative - 160(16) ++++ mg/dL [facility] Leukocytes, UA Negative Negative - 500+++ Doe/mcL [facility] Nitrite, UA Negative Negative - Positive [facility] pH, UA 6.0 5 - 9 [facility] Protein, UA Negative Negative - 1999(20) ++++ mg/dL [facility] Spec Grav, UA 1.020 1 - 1.03 [facility] Urobilinogen, UA 0.2 0.2 - 12 mg/dL [facility] XR CERVICAL SPINE AP/LAT/FLE X/EXT/OBLIQUESon 08-16-2023 XR [...] [Mass/Vol] 8.9 mg/dL Normal (8.6 - 10.6) [facility] Comment on above: Performed By: #### C BC/2A, ESRCRP, CCP, HBC-M, HBSAG, HCV, CA, MG, RHF, URCA #### [facility] [address] [facility], [id number] CBC, ALB, ALT, AST, ALK AND CREAon 12-18-2022 Albumin [Mass/Vol] 5.0 g/dL Normal (3.5 - 5.0) [facility] Comment on above: Order Comment: FACIL ITY: [facility] [id number] Performed By: #### C BC/2A, ESRCRP, CCP, HBC-M, HBSAG, HCV, CA, MG, RHF, URCA #### [facility] [address] [facility], [id number] ALK PHOS 60 U/L Normal (38 - 126) [facility] Comment on above: Order Comment: FACIL ITY: [facility] [id number] Performed By: #### C BC/2A, ESRCRP, CCP, HBC-M, HBSAG, HCV, CA, MG, RHF, URCA #### [facility] [address] [facility], [id number] ALT [Catalytic activity/Vol] 34 U/L Normal (1 - 35) [facility] Comment on above: Order Comment: FACIL ITY: [facility] [id number] Performed By: #### C BC/2A, ESRCRP, CCP, HBC-M, HBSAG, HCV, CA, MG, RHF, URCA #### [facility] [address] [facility], [id number] AST [Catalytic activity/Vol] 34 U/L Normal (15 - 46) [facility] Comment on above: Order Comment: FACIL ITY: [facility] [id number] Performed By: #### C BC/2A, ESRCRP, CCP, HBC-M, HBSAG, HCV, CA, MG, RHF, URCA #### [facility] [address] [facility], [address] Creatinine [Mass/Vol] 0.61 mg/dL Normal (0.52 - 1.04) [facility] Comment on above: Order Comment: FACIL ITY: [facility] [id number] Performed By: #### C BC/2A, ESRCRP, CCP, HBC-M, HBSAG, HCV, CA, MG, RHF, URCA #### [facility] [address] [facility], [phone] GFR- AMER 135.1 ML/M1.7 Normal (60.0 - 140.1) [facility] Comment on above: Order Comment: FACIL ITY: [facility] [id number] Performed By: #### C BC/2A, ESRCRP, CCP, HBC-M, HBSAG, HCV, CA, MG, RHF, URCA #### [facility] [address] [facility], [id number] GFR-NON AFRIC-AMER 111.6 ML/M1.7 Normal (60.0 - 115.8) [facility] Comment on above: Order Comment: FACIL ITY: [facility] [id number] Performed By: #### C BC/2A, ESRCRP, CCP, HBC-M, HBSAG, HCV, CA, MG, RHF, URCA #### [facility] [address] [facility], [address] Hematocrit (Bld) [Volume fraction] 41.5 % Normal (37.0 - 47.0) [facility] Comment on above: Order Comment: FACIL ITY: [facility] [id number] Performed By: #### C BC/2A, ESRCRP, CCP, HBC-M, HBSAG, HCV, CA, MG, RHF, URCA #### [facility] [address] [facility], [phone] Hemoglobin (Bld) [Mass/Vol] 13.5 g/dL Normal (12.0 - 16.0) [facility] Comment on above: Order Comment: FACIL ITY: [facility] [id number] Performed By: #### C BC/2A, ESRCRP, CCP, HBC-M, HBSAG, HCV, CA, MG, RHF, URCA #### [facility] [address] [facility], [address] MCH (RBC) [Entitic mass] 28.7 pg Normal (27.0 - 33.0) [facility] Comment on above: Order Comment: FACIL ITY: [facility] [id number] Performed By: #### C BC/2A, ESRCRP, CCP, HBC-M, HBSAG, HCV, CA, MG, RHF, URCA #### [facility] [address] [facility], [address] MCHC (RBC) [Mass/Vol] 32.5 g/dL Normal (30.0 - 37.0) [facility] Comment on above: Order Comment: FACIL ITY: [facility] [id number] Performed By: #### C BC/2A, ESRCRP, CCP, HBC-M, HBSAG, HCV, CA, MG, RHF, URCA #### [facility] [address] [facility], [address] MCV (RBC) [Entitic vol] 88.1 fL Normal (81.0 - 99.0) [facility] Comment on above: Order Comment: FACIL ITY: [facility] [id number] Performed By: #### C BC/2A, ESRCRP, CCP, HBC-M, HBSAG, HCV, CA, MG, RHF, URCA #### [facility] [address] [facility], [address] PLT 282 x10^3ul Normal (130 - 400) [facility] Comment on above: Order Comment: FACIL ITY: [facility] [id number] Performed By: #### C BC/2A, ESRCRP, CCP, HBC-M, HBSAG, HCV, CA, MG, RHF, URCA #### [facility] [address] [facility], [address] RBC 4.71 x10^6ul Normal (4.20 - 5.40) [facility] Comment on above: Order Comment: FACIL ITY: [facility] [id number] Performed By: #### C BC/2A, ESRCRP, CCP, HBC-M, HBSAG, HCV, CA, MG, RHF, URCA #### [facility] [address] [facility], [address] WBC 6.47 x10^3ul Normal (3.80 - 10.60) [facility] Comment on above: Order Comment: FACIL ITY: [facility] O [id number] Performed By: #### C BC/2A, ESRCRP, CCP, HBC-M, HBSAG, HCV, CA, MG, RHF, URCA #### [facility] [address] [facility], [address] HEP B CORE AB, IGMon 023 HEPATITIS B CORE ANTIBODY, IGM Negative Normal (NEG - NEG) [facility] Comment on above: Performed By: #### C BC/2A, ESRCRP, CCP, HBC-M, HBSAG, HCV, CA, MG, RHF, URCA #### [facility] [address] [facility], [address] HEP B HERACLIO AGon 12-18-2022 HEP B HERACLIO AG Negative Normal (NEG - NEG) [facility] Comment on above: Performed By: #### C BC/2A, ESRCRP, CCP, HBC-M, HBSAG, HCV, CA, MG, RHF, URCA #### [facility] [address] [facility], [address] HEP C ANTIBODYon 12-18-2022 HEPATITIS C ANTIBODY Negative Normal (NEG - NEG) [facility] Comment on above: Performed By: #### C BC/2A, ESRCRP, CCP, HBC-M, HBSAG, HCV, CA, MG, RHF, URCA #### [facility] [address] [facility], [address] MAGNESIUMon 12-18-2022 Magnesium [Mass/Vol] 2.0 mg/dL Normal (1.6 - 2.3) [facility] Comment on above: Performed By: #### C BC/2A, ESRCRP, CCP, HBC-M, HBSAG, HCV, CA, MG, RHF, URCA #### [facility] [address] [facility], [address] RF FACTORon 12-18-2022 RF FACTOR <9 Normal (0 - 12) [facility] Comment on above: Result Comment: RF F ACTOR = LESS THAN 9 IU/ML RF FACTOR MIN. DETECTION = 9 IU/ML. Performed By: #### C BC/2A, ESRCRP, CCP, HBC-M, HBSAG, HCV, CA, MG, RHF, URCA #### [facility] [address] [facility], [address] SED RATE - CRPon 12-18-2022 CRP EXTENDED RANGE 1.40 MG/L Normal (0.00 - 3.20) [facility] Comment on above: Performed By: #### C BC/2A, ESRCRP, CCP, HBC-M, HBSAG, HCV, CA, MG, RHF, URCA #### [facility] [address] [facility], [address] SED RATE WEST. 5 MM/HR Normal (0 - 25) [facility] Comment on above: Performed By: #### C BC/2A, ESRCRP, CCP, HBC-M, HBSAG, HCV, CA, MG, RHF, URCA #### [facility] [address] [facility], [address] URIC ACIDon 12-18-2022 Urate [Mass/Vol] 4.2 mg/dL Normal (2.5 - 6.2) [facility] Comment on above: Performed By: #### C BC/2A, ESRCRP, CCP, HBC-M, HBSAG, HCV, CA, MG, RHF, URCA #### [facility] [address] [facility], [address] PAP ACOG PANEL 2: 30 to 65on 11-16-2021 . . Normal [facility] Comment on above: Result Comment: Perf ormed at: WB Performed By: #### 4 [id number] #### [facility] [address] [address] [address] Sierra Almonte Age Gdln ACOG Testing 30-65 Normal [facility] Comment on above: Performed By: #### 4 [id number] #### [facility] [address] [place] [address] Dr. Sierra Almonte DIAGNOSIS: Comment Normal [facility] Comment on above: Result Comment: NEGA TIVE FOR INTRAEPITHELIAL LESION OR MALIGNANCY. Performed at: WB Performed By: #### 4 [id number] #### [facility] [address] [address] [address] Sierra Almonte HPV Aptima Negative Normal Negative [facility] Comment on above: Result Comment: This nucleic acid amplification test detects fourteen high-risk HPV types (16,18,31,33,35,39,45,51,52,56,58,59,66,68) without differentiation. Performed at: =G Performed By: #### 4 [id number] #### [facility] [address] [place] [address] Dr. Sierra Almonte Methodology: Comment Normal [facility] Comment on above: Result Comment: This liquid based ThinPrep(R) pap test was screened with the use of an image guided system. Performed at: WB Performed By: #### 4 [id number] #### [facility] [address] [place] [address] Dr. Sierra Almonte Note: Comment Normal [facility] Comment on above: Result Comment: The Pap smear is a screening test designed to aid in the detection of premalignant and malignant conditions of the uterine cervix. It is not a diagnostic procedure and should not be used as the sole means of detecting cervical cancer. Both false-positive and false-negative reports do occur. . Performed at: WB Performed By: #### 4 [id number] #### [facility] [address] [place] [address] Dr. Sierra Almonte Performed by: Comment Normal [facility] Comment on above: Result Comment: Alison Nava, Industrial Psychology Teacher (ASCP) Performed at: WB Performed By: #### 4 [id number] #### [facility] [address] [place], [place] [address] Dr. Sierra Almonte Specimen adequacy: Comment Normal [facility] Comment on above: Result Comment: Sati sfactory for evaluation. Endocervical and/or squamous metaplastic cells (endocervical component) are present. Performed at: WB Performed By: #### 4 [id number] #### [facility] [address] [address] [address] Sierra Almonte Thyroidon 07-14-2021 US Thyroid [...] by Alexei Smith on 07/14/2021 1000 Normal [facility] Complete Blood Count with Au to Diffon 07-12-2021 Basophils (Bld) [#/Vol] 0.02 10*3/uL Normal 0.00-0.20 [facility] Comment on above: Performed By: #### C BCAD, RF, VITD, ESR, TSH reflex FT4, CMP, FT4 #### [facility] [address], [place] [id number] Basophils/100 WBC (Bld) 0.3 % Normal [facility] Comment on above: Performed By: #### C BCAD, RF, VITD, ESR, TSH reflex FT4, CMP, FT4 #### [facility] [address], [place] [id number] Eosinophils (Bld) [#/Vol] 0.08 10*3/uL Normal 0.02-0.50 [facility] Comment on above: Performed By: #### C BCAD, RF, VITD, ESR, TSH reflex FT4, CMP, FT4 #### [facility] [address], [place] [id number] Eosinophils/100 WBC (Bld) 1.2 % Normal [facility] Comment on above: Performed By: #### C BCAD, RF, VITD, ESR, TSH reflex FT4, CMP, FT4 #### [facility] [address], [place] [id number] Erythrocyte distribution width (RBC) [Ratio] 13.8 % Normal 11.0-15.0 [facility] [employer] Comment on above: Performed By: #### C BCAD, RF, VITD, ESR, TSH reflex FT4, CMP, FT4 #### [facility] [address], [place] [id number] Hematocrit (Bld) [Volume fraction] 39.6 % Normal 35.0-47.0 [facility] Comment on above: Performed By: #### C BCAD, RF, VITD, ESR, TSH reflex FT4, CMP, FT4 #### [facility] [address], [place] [id number] Hemoglobin (Bld) [Mass/Vol] 12.9 g/dL Normal 11.6-15.5 [facility] Comment on above: Performed By: #### C BCAD, RF, VITD, ESR, TSH reflex FT4, CMP, FT4 #### [facility] [address], [place] [id number] Lymphocytes (Bld) [#/Vol] 1.3 10*3/uL Normal 0.9-3.9 [facility] Comment on above: Performed By: #### C BCAD, RF, VITD, ESR, TSH reflex FT4, CMP, FT4 #### [facility] [address], [place] [id number] Lymphocytes/100 WBC (Bld) 20.3 % Normal [facility] Comment on above: Performed By: #### C BCAD, RF, VITD, ESR, TSH reflex FT4, CMP, FT4 #### [facility] [address], [place] [id number] MCH (RBC) [Entitic mass] 28.3 pg Normal 27.0-33.0 [facility] Comment on above: Performed By: #### C BCAD, RF, VITD, ESR, TSH reflex FT4, CMP, FT4 #### [facility] [address], [place] [id number] MCHC (RBC) [Mass/Vol] 32.6 g/dL Normal 32.0-36.0 [facility] Comment on above: Performed By: #### C BCAD, RF, VITD, ESR, TSH reflex FT4, CMP, FT4 #### [facility] [address], [place] [id number] MCV (RBC) [Entitic vol] 87 fL Normal 80-100 [facility] Comment on above: Performed By: #### C BCAD, RF, VITD, ESR, TSH reflex FT4, CMP, FT4 #### [facility] [address], [place] [id number] Monocytes (Bld) [#/Vol] 0.4 10*3/uL Normal 0.2-0.9 [facility] Comment on above: Performed By: #### C BCAD, RF, VITD, ESR, TSH reflex FT4, CMP, FT4 #### [facility] [address], [place] [id number] Monocytes/100 WBC (Bld) 5.8 % Normal [facility] Comment on above: Performed By: #### C BCAD, RF, VITD, ESR, TSH reflex FT4, CMP, FT4 #### [facility] [address], [place] [id number] Neutrophils (Bld) [#/Vol] 4.7 10*3/uL Normal 1.5-7.8 [facility] Comment on above: Performed By: #### C BCAD, RF, VITD, ESR, TSH reflex FT4, CMP, FT4 #### [facility] [address], [place] [id number] Neutrophils/100 WBC (Bld) 72.1 % Normal [facility] Comment on above: Performed By: #### C BCAD, RF, VITD, ESR, TSH reflex FT4, CMP, FT4 #### [facility] [address], [place] [id number] Platelet mean volume (Bld) [Entitic vol] 11.00 fL Normal 7.50-12.50 [facility] Comment on above: Performed By: #### C BCAD, RF, VITD, ESR, TSH reflex FT4, CMP, FT4 #### [facility] [address], [place] [id number] Platelets (Bld) [#/Vol] 271 10*3/uL Normal 140-400 [facility] Comment on above: Performed By: #### C BCAD, RF, VITD, ESR, TSH reflex FT4, CMP, FT4 #### [facility] [address], [place] [id number] RBC (Bld) [#/Vol] 4.56 10*6/uL Normal 3.90-5.20 [facility] Specialist Comment on above: Performed By: #### C BCAD, RF, VITD, ESR, TSH reflex FT4, CMP, FT4 #### [facility] [address], [place] [id number] RDW-SD 43.5 fL Normal 37.0-50.0 [facility] Comment on above: Performed By: #### C BCAD, RF, VITD, ESR, TSH reflex FT4, CMP, FT4 #### [facility] [address], [place] [id number] WBC (Bld) [#/Vol] 6.5 10*3/uL Normal 3.8-11.0 [place] [place] [employer] Comment on above: Performed By: #### C BCAD, RF, VITD, ESR, TSH reflex FT4, CMP, FT4 #### [facility] [address], [place] [id number] [facility] 07-12-2021 Albumin [Mass/Vol] 4.9 g/dL Normal 3.6-5.1 [place] [place] [employer] Comment on above: Performed By: #### C BCAD, RF, VITD, ESR, TSH reflex FT4, CMP, FT4 #### [facility] [address], [place] [id number] Albumin/Globulin [Mass ratio] 2.2 {ratio} Normal 1.0-2.5 [facility] [employer] Comment on above: Performed By: #### C BCAD, RF, VITD, ESR, TSH reflex FT4, CMP, FT4 #### [facility] [address], [place] [id number] ALP [Catalytic activity/Vol] 63 U/L Normal 35-119 [facility] Comment on above: Performed By: #### C BCAD, RF, VITD, ESR, TSH reflex FT4, CMP, FT4 #### [facility] [address], [place] [id number] ALT [Catalytic activity/Vol] 26 U/L Normal 6-33 [facility] [employer] Comment on above: Result Comment: 01/26 Female reference range changed. Performed By: #### C BCAD, RF, VITD, ESR, TSH reflex FT4, CMP, FT4 #### [facility] [address], [place] [id number] Anion gap [Moles/Vol] 18 mmol/L Normal 12-20 [facility] [employer] Comment on above: Result Comment: Effe ctive 03/03/2019 reference range changed. Performed By: #### C BCAD, RF, VITD, ESR, TSH reflex FT4, CMP, FT4 #### [facility] [address], [place] [id number] AST [Catalytic activity/Vol] 26 U/L Normal 9-34 [facility] Comment on above: Performed By: #### C BCAD, RF, VITD, ESR, TSH reflex FT4, CMP, FT4 #### [facility] [address], [place] [id number] BUN/CREA 10 Ratio Normal 6-22 [facility] Comment on above: Performed By: #### C BCAD, RF, VITD, ESR, TSH reflex FT4, CMP, FT4 #### [facility] [address], [place] [id number] Calcium [Mass/Vol] 10.0 mg/dL Normal 8.6-10.2 [facility] Comment on above: Performed By: #### C BCAD, RF, VITD, ESR, TSH reflex FT4, CMP, FT4 #### [facility] [address], [place] [id number] Chloride [Moles/Vol] 105 mmol/L Normal 98-107 [facility] Comment on above: Performed By: #### C BCAD, RF, VITD, ESR, TSH reflex FT4, CMP, FT4 #### [facility] [address], [place] [id number] CO2 [Moles/Vol] 21 mmol/L Normal 20-31 [facility] Comment on above: Performed By: #### C BCAD, RF, VITD, ESR, TSH reflex FT4, CMP, FT4 #### [facility] [address], [place] [id number] Creatinine [Mass/Vol] 0.6 mg/dL Normal 0.6-1.4 [facility] Comment on above: Performed By: #### C BCAD, RF, VITD, ESR, TSH reflex FT4, CMP, FT4 #### [facility] [address], [place] [id number] eGFRAA 132 mL/min/1.73m2 Normal >60 [facility] Comment on above: Performed By: #### C BCAD, RF, VITD, ESR, TSH reflex FT4, CMP, FT4 #### [facility] [address], [place] [id number] eGFRNAA 109 mL/min/1.73m2 Normal >60 Danielle francis [place] [employer] Comment on above: Performed By: #### C BCAD, RF, VITD, ESR, TSH reflex FT4, CMP, FT4 #### [facility] [address], [place] [id number] Globulin (S) [Mass/Vol] 2.2 g/dL Normal 1.9-3.7 [facility] [employer] Comment on above: Performed By: #### C BCAD, RF, VITD, ESR, TSH reflex FT4, CMP, FT4 #### [facility] [address], [place] [id number] Glucose [Mass/Vol] 86 mg/dL Normal 65-99 Levar cueva [place] [employer] Comment on above: Result Comment: For FASTING Glucose --- ADA reference ranges: Normal 65-99 mg/dl Prediabetes 100-125 Diabetes >/= 126 Performed By: #### C BCAD, RF, VITD, ESR, TSH reflex FT4, CMP, FT4 #### [facility] [address], [place] [id number] Potassium [Moles/Vol] 4.1 mmol/L Normal 3.5-5.5 [facility] [employer] Comment on above: Performed By: #### C BCAD, RF, VITD, ESR, TSH reflex FT4, CMP, FT4 #### [facility] [address], [place] [id number] Protein [Mass/Vol] 7.1 g/dL Normal 6.1-8.1 Levar cueva [place] [employer] Comment on above: Performed By: #### C BCAD, RF, VITD, ESR, TSH reflex FT4, CMP, FT4 #### [facility] [address], [place] [id number] Sodium [Moles/Vol] 140 mmol/L Normal 135-146 Levar cueva [place] [employer] Comment on above: Performed By: #### C BCAD, RF, VITD, ESR, TSH reflex FT4, CMP, FT4 #### [facility] [address], [place] [id number] TBIL <0.3 Normal [facility] [employer] Comment on above: Performed By: #### C BCAD, RF, VITD, ESR, TSH reflex FT4, CMP, FT4 #### [facility] [address], [place] [id number] Urea nitrogen [Mass/Vol] 7 mg/dL Normal 7-25 [facility] Comment on above: Performed By: #### C BCAD, RF, VITD, ESR, TSH reflex FT4, CMP, FT4 #### [facility] [address], [place] [id number] Free T4on 07-12-2021 Free T4 [Mass/Vol] 0.93 ng/dL Normal 0.80-1.80 [facility] Comment on above: Performed By: #### C BCAD, RF, VITD, ESR, TSH reflex FT4, CMP, FT4 #### [facility] [address], [place] [id number] Q - PASQUALE SCREEN IFA W/RFL TIT ER AND PATTERNon 07-12-2021 PASQUALE SCREEN, IFA Negative Normal NEGATIVE [facility] Comment on above: Order Comment: [facility] performed at: [facility], [facility], [address] [place] [address], [address] [place] [address], [id number], Disbursing Agent: Leonard Turpin MD [facility] Date/Time: [facility] [...] AC-0: Negative International Consensus on PASQUALE Patterns (https://doi.org/10.1515/hfli-5809-0976) For additional information, please refer to http://education.CellControl.LaunchTrack/faq/SKZ916 (This link is being provided for informational/ educational purposes only.) Performed By: #### 2 49 #### [facility] [address] [place] [address] RBC Sedimentation Rateon ESR (Bld) [Velocity] 8.00 mm/h Normal 0.00-20.00 [facility] Comment on above: Performed By: #### C BCAD, RF, VITD, ESR, TSH reflex FT4, CMP, FT4 #### [facility] [address], [place] [id number] Rheumatoid Factoron 07-13-19 RF <10 Normal [facility] Comment on above: Performed By: #### C BCAD, RF, VITD, ESR, TSH reflex FT4, CMP, FT4 #### [facility] [address], [place] [id number] TSH w/ Reflex to Free T4on 07-12-2021 TSH 0.321 uIU/mL Low 0.400-4.500 [facility] [employer] Comment on above: Performed By: #### C BCAD, RF, VITD, ESR, TSH reflex FT4, CMP, FT4 #### [facility] [address], [place] [id number] Vitamin D 25-OHon 07-12-2021 VIT D 25 OH 19 ng/ml Low >29 [facility] [employer] Comment on above: Result Comment: Ade min D Status Deficiency <20 ng/mL Insufficiency 20-29 ng/mL Optimal 30-100 ng/mL Possible Toxicity >=150 ng/mL Performed By: #### C BCAD, RF, VITD, ESR, TSH reflex FT4, CMP, FT4 #### [facility] [address], [place] [id number] Comprehensive Metabolic Empo n 04-11-2021 Albumin [Mass/Vol] 4.6 g/dL Normal 3.2-5.5 [facility] Comment on above: Performed By: #### E BS CMP, EBS LIPID #### [facility] [address] Albumin/Globulin [Mass ratio] 1.9 {ratio} Normal [facility] Comment on above: Performed By: #### E BS CMP, EBS LIPID #### [facility] [address] ALP [Catalytic activity/Vol] 43 U/L Normal 32-92 [facility] Comment on above: Performed By: #### E BS CMP, EBS LIPID #### [facility] [address] ALT [Catalytic activity/Vol] 17 U/L Normal 10-60 [facility] Comment on above: Performed By: #### E BS CMP, EBS LIPID #### [facility] [address] AST [Catalytic activity/Vol] 20 U/L Normal 10-42 [facility] Comment on above: Performed By: #### E BS CMP, EBS LIPID #### [address] Bilirubin [Mass/Vol] 1.1 mg/dL Normal 0.3-1.2 [facility] Comment on above: Performed By: #### E BS CMP, EBS LIPID #### [address] Calcium [Mass/Vol] 9.6 mg/dL Normal 8.2-10.2 [facility] Comment on above: Performed By: #### E BS CMP, EBS LIPID #### [address] Chloride [Moles/Vol] 102 mmol/L Normal 95-114 [facility] Comment on above: Performed By: #### E BS CMP, EBS LIPID #### [facility] [address] [place] [address] CO2 [Moles/Vol] 21.4 mmol/L Low 22.0-30.0 [facility] Comment on above: Performed By: #### E BS CMP, EBS LIPID #### [facility] [address] [place] [address] Creatinine [Mass/Vol] 0.71 mg/dL Normal 0.44-1.03 [facility] Comment on above: Performed By: #### E BS CMP, EBS LIPID #### [facility] [address] [place] [address] [place] Estimated GFR ( Michelle > 60 Normal [facility] Comment on above: Result Comment: GFR estimated reference range: According to KDOQI guidelines, <60 ml/min/1.73m2 is sufficient to diagnose a patient with chronic kidney disease. Performed By: #### E BS CMP, EBS LIPID #### [facility] [address] Estimated GFR (Non- Am > 60 Normal [facility] Comment on above: Performed By: #### E BS CMP, EBS LIPID #### [facility] [address] Globulin (S) [Mass/Vol] 2.4 g/dL Normal [facility] Comment on above: Performed By: #### E BS CMP, EBS LIPID #### [address] Glucose [Mass/Vol] 76 mg/dL Normal 70-100 [facility] Comment on above: Performed By: #### E BS CMP, EBS LIPID #### [facility] [address] [place] [address] Potassium [Moles/Vol] 3.3 mmol/L Low 3.5-5.1 [facility] Comment on above: Performed By: #### E BS CMP, EBS LIPID #### [facility] [address] [place] [address] Protein [Mass/Vol] 7.0 g/dL Normal 6.1-7.9 [facility] Comment on above: Performed By: #### E BS CMP, EBS LIPID #### [facility] [address] [place] [address] [place] Sodium [Moles/Vol] 136 mmol/L Normal 136-146 [facility] Comment on above: Performed By: #### E BS CMP, EBS LIPID #### [facility] [address] [place] [address] Urea nitrogen [Mass/Vol] 5 mg/dL Low 9-23 [facility] Comment on above: Performed By: #### E BS CMP, EBS LIPID #### [facility] [address] Lipid Profileon 04-11-2021 Cholesterol [Mass/Vol] 189 mg/dL Normal 140-200 [facility] Comment on above: Result Comment: Chol less than 200 mg/dl low risk Chol 201-239 mg/dl borderline risk Chol 240 mg/dl and greater high risk Performed By: #### E BS CMP, EBS LIPID #### [facility] [address] Cholesterol in HDL [Mass/Vol] 69 mg/dL Normal 35-85 [facility] Comment on above: Result Comment: HDL CHOL ATP-III CLASSIFICATION Cardiovascular Risk HDL > or equal to 60 mg/dL LOW HDL < 40 mg/dL HIGH Performed By: #### E BS CMP, EBS LIPID #### [address] Cholesterol.total/C holesterol in HDL [Mass ratio] 2.7 {ratio} Normal <5.0 [facility] Comment on above: Result Comment: PERF ORMED BY: [place] [address] PATHOLOGIST WARP TESTER PAT PETERS M.D. Performed By: #### E BS CMP, EBS LIPID #### [address] LDL Cholesterol,Calcula shadi 107 mg/dL High 0-100 [facility] Comment on above: Result Comment: LDL ATP III CLASSIFICATION LDL less than 100 mg/dL Optimal LDL 100-129 mg/dL Near or above optimal LDL 130-159 mg/dL Borderline high LDL 160-189 mg/dL High LDL greater than 189 mg/dL Very high Performed By: #### E BS CMP, EBS LIPID #### [facility] [address] [place] [address] [place] Triglyceride w/Reflex 64 mg/dL Normal 35-149 [facility] Comment on above: Result Comment: TRIG ATP III CLASSIFICATION TRIG less than 150 mg/dL Normal TRIG 150-199 mg/dL Borderline high TRIG 200-500 mg/dL High TRIG greater than 500 mg/dL Very high Standard traceable to the Center for Disease Conrtrol and Prevention (CDC) test method. Performed By: #### E BS CMP, EBS LIPID #### [facility] [address] [place] [id number] [place] VLDL CHOLESTEROL 12 mg/dL Normal [facility] Comment on above: Performed By: #### E BS CMP, EBS LIPID #### [facility] [address] [place] [id number] [place] Covid-19 PCR (CVDTB)on SARS-CoV-2 (COVID-19) RNA ERIC+probe Ql (Unsp spec) Detected Critically abnormal NOT DETECTED [facility] Comment on above: Result Comment: This test is not yet approved or cleared by the [place] FDA. When there are no FDA-approved or cleared tests available, and other criteria are met, FDA can make tests available under an emergency access mechanism called an Emergency Use Authorization (EUA). The EUA for this test is supported by the [place] of Health and Human Service's (HHS's) declaration [...] used). Performed By: #### C VDTBH #### [facility] [address] [place] [address] Dr. Sierra Almonte CHLAMYDIA/GONOCOCCUS ERIC (SW AB/URINE/PAPon 12-14-2020 Chlamydia trachomatis, ERIC Negative Normal Negative [facility] Comment on above: Performed By: #### C T/NGNA #### [facility] [address] [place] [address] Dr. Sierra Almonte Neisseria gonorrhoeae, ERIC Negative Normal Negative [facility] Comment on above: Performed By: #### C T/NGNA #### [facility] [address] [place] [address] Dr. Sierra Almonte VAGINITIS/VAGINOSIS DNA PROB Andrew 12-11-2020 Loc species Negative Normal Negative [facility] Comment on above: Performed By: #### V AGINT #### [facility] [address] [place] [address] [address] Sierra Almonte Gardnerella vaginalis Positive Abnormal Negative [facility] Comment on above: Performed By: #### V AGINT #### [facility] [address] [place] [address] [address] Sierra Almonte Trichomonas vaginalis Negative Normal Negative [facility] Comment on above: Performed By: #### V AGINT #### [facility] [address] [place] [address] [address] Sierra Almonte Vital Signs Date Time Vital Sign Value Performing Clinician Faci lity 04-29-2024 14:44-0500 Body mass index (BMI) [Ratio] 28.72 kg/m2 Raghavendra Christina DO Work Phone: [facility] 04-29-2024 14:44-0500 Body weight 73.54 kg Raghavendra Christina DO Work Phone: [facility] 04-29-2024 14:44-0500 Diastolic blood pressure 70 mm[Hg] Raghavendra Christina DO Work Phone: [facility] 04-29-2024 14:44-0500 Systolic blood pressure 98 mm[Hg] Raghavendra Christina DO Work Phone: [facility] 04-08-2024 11:58-0500 Body mass index (BMI) [Ratio] 28.48 kg/m2 Raghavendra Christina DO Work Phone: [facility] 04-08-2024 11:58-0500 Body weight 72.94 kg Raghavendra Christina DO Work Phone: [facility] 04-08-2024 11:58-0500 Diastolic blood pressure 74 mm[Hg] Raghavendra Christina DO Work Phone: [facility] 04-08-2024 11:58-0500 Systolic blood pressure 110 mm[Hg] Raghavendra Christina DO Work Phone: [facility] 04-02-2024 11:03-0500 Body mass index (BMI) [Ratio] 27.99 kg/m2 Teresa Jo Ann-Nossek SALES AND LEASING CONSULTANT-CREDIT OPERATIONS SPECIALIST Work Phone: [facility] 04-02-2024 11:03-0500 Body weight 71.67 kg Teresa Jo Ann-Nossek SALES AND LEASING CONSULTANT-CREDIT OPERATIONS SPECIALIST Work Phone: [facility] 04-02-2024 11:03-0500 Diastolic blood pressure 72 mm[Hg] Teresa Arringtonor-Nossek SALES AND LEASING CONSULTANT-CREDIT OPERATIONS SPECIALIST Work Phone: [facility] 04-02-2024 11:03-0500 Heart rate 105 /min Teresa Arringtonor-Nossek SALES AND LEASING CONSULTANT-CREDIT OPERATIONS SPECIALIST Work Phone: [facility] 04-02-2024 11:03-0500 Systolic blood pressure 122 mm[Hg] Teresa Arringtonor-Nossek SALES AND LEASING CONSULTANT-CREDIT OPERATIONS SPECIALIST Work Phone: [facility] 03-25-2024 10:19-0500 Body mass index (BMI) [Ratio] 27.63 kg/m2 Raghavendra Christina DO Work Phone: [facility] 03-25-2024 10:19-0500 Body weight 70.76 kg Raghavendra Christina DO Work Phone: [facility] 03-25-2024 10:19-0500 Diastolic blood pressure 68 mm[Hg] Raghavendra Christina DO Work Phone: [facility] 03-25-2024 10:19-0500 Systolic blood pressure 100 mm[Hg] Raghavendra Christina DO Work Phone: [facility] 03-11-2024 10:10-0500 Body mass index (BMI) [Ratio] 27.95 kg/m2 Raghavendra Christina DO Work Phone: [facility] 03-11-2024 10:10-0500 Body weight 71.58 kg Raghavendra Christina DO Work Phone: [facility] 03-11-2024 10:10-0500 Diastolic blood pressure 68 mm[Hg] Raghavendra Christina DO Work Phone: [facility] 03-11-2024 10:10-0500 Systolic blood pressure 104 mm[Hg] Raghavendra Christina DO Work Phone: [facility] 02-13-2024 13:14-0500 Body height 160 cm Emerita Whittakermor MURAL ARTIST Work Phone: [facility] 02-13-2024 13:14-0500 Body mass index (BMI) [Ratio] 26.93 kg/m2 Emerita Gillmor MURAL ARTIST Work Phone: [facility] 02-13-2024 13:14-0500 Body weight 68.95 kg Emerita Gillmor MURAL ARTIST Work Phone: [facility] 02-13-2024 13:14-0500 Diastolic blood pressure 72 mm[Hg] Emerita Remediosmor MURAL ARTIST Work Phone: [facility] 02-13-2024 13:14-0500 Heart rate 109 /min Emerita Whittakermor MURAL ARTIST Work Phone: [facility] 02-13-2024 13:14-0500 Systolic blood pressure 119 mm[Hg] Emerita Gillmor MURAL ARTIST Work Phone: [facility] 02-11-2024 10:19-0500 Body mass index (BMI) [Ratio] 27.3 kg/m2 Raghavendra Christina DO Work Phone: [facility] 02-11-2024 10:19-0500 Body weight 71.58 kg Raghavendra Christina DO Work Phone: [facility] 02-11-2024 10:19-0500 Diastolic blood pressure 70 mm[Hg] Raghavendra Christina DO Work Phone: [facility] 02-11-2024 10:19-0500 Systolic blood pressure 120 mm[Hg] Raghavendra Christina DO Work Phone: [facility] 01-10-2024 10:44-0500 Body mass index (BMI) [Ratio] 26.3 kg/m2 Raghavendra Christina DO Work Phone: [facility] 01-10-2024 10:44-0500 Body weight 68.95 kg Raghavendra Christina DO Work Phone: [facility] 01-10-2024 10:44-0500 Diastolic blood pressure 74 mm[Hg] Raghavendra Christina DO Work Phone: [facility] 01-10-2024 10:44-0500 Systolic blood pressure 116 mm[Hg] Raghavendra Christina DO Work Phone: [facility] 01-01-2024 11:40-0500 Body mass index (BMI) [Ratio] 25.78 kg/m2 Teresa Jo Ann-Nossek SALES AND LEASING CONSULTANT-CREDIT OPERATIONS SPECIALIST Work Phone: [facility] 01-01-2024 11:40-0500 Body weight 67.59 kg Teresa Jo Ann-Nossek SALES AND LEASING CONSULTANT-CREDIT OPERATIONS SPECIALIST Work Phone: [facility] 01-01-2024 11:40-0500 Diastolic blood pressure 82 mm[Hg] Teresa Jo Ann-Nossek SALES AND LEASING CONSULTANT-CREDIT OPERATIONS SPECIALIST Work Phone: [facility] 01-01-2024 11:40-0500 Heart rate 99 /min Teresa Jo Ann-Nossek SALES AND LEASING CONSULTANT-CREDIT OPERATIONS SPECIALIST Work Phone: [facility] 01-01-2024 11:40-0500 Systolic blood pressure 100 mm[Hg] Teresa Jo Ann-Nossek SALES AND LEASING CONSULTANT-CREDIT OPERATIONS SPECIALIST Work Phone: [facility] 11-28-2023 14:53-0400 Body mass index (BMI) [Ratio] 25.57 kg/m2 Raghavendra Christina DO Work Phone: [facility] 11-28-2023 14:53-0400 Body weight 67.04 kg Raghavendra Christina DO Work Phone: [facility] 11-28-2023 14:53-0400 Diastolic blood pressure 74 mm[Hg] Raghavendra Christina DO Work Phone: [facility] 11-28-2023 14:53-0400 Systolic blood pressure 114 mm[Hg] Raghavendra Christina DO Work Phone: [facility] 11-01-2023 15:16-0400 Body mass index (BMI) [Ratio] 25.6 kg/m2 [facility] 11-01-2023 15:16-0400 Body weight 67.13 kg [facility] 10-18-2023 11:32-0400 Body height 161.9 cm Ysabel Cabral MD Work Phone: [facility] 10-18-2023 11:32-0400 Body mass index (BMI) [Ratio] 26.05 kg/m2 Ysabel Cabral MD Work Phone: [facility] 10-18-2023 11:32-0400 Body weight 68.31 kg Ysabel Cabral MD Work Phone: [facility] 10-18-2023 11:32-0400 Diastolic blood pressure 76 mm[Hg] Ysabel Cabral MD Work Phone: [facility] 10-18-2023 11:32-0400 Heart rate 92 /min Ysabel Cabral MD Work Phone: [facility] 10-18-2023 11:32-0400 Respiratory rate 20 /min Ysabel Cabral MD Work Phone: [facility] 10-18-2023 11:32-0400 Systolic blood pressure 122 mm[Hg] Ysabel Cabral MD Work Phone: [facility] Healthcare Encounters Encounter Date Encounter Type Care Provider Facility Start: 04-29-2024 End: 04-29-2024 ambulatory RAGHAVENDRA CHRISTINA Not Available Start: 04-29-2024 End: 04-29-2024 Bamboo flowsheet Raghavendra Christina DO Work Phone: [facility] Start: 04-29-2024 End: 04-29-2024 Bamboo flowsheet Raghavendra Christina DO Work Phone: [facility] Start: 04-29-2024 End: 04-29-2024 Clinisync Result Encounter Generic External Data Provider [facility] External Department Unsolicited Start: 04-29-2024 End: 04-29-2024 Office outpatient visit 15 minutes Raghavendra Christina DO Work Phone: [facility] Comment on above: Third trimester preg anahy; 34 weeks gestation of ; size inconsistent with dates Start: 04-22-2024 End: 04-22-2024 Clinisync Result Encounter [...] Start: 04-02-2024 End: 04-02-2024 Bamboo flowsheet Teresa Arringtonor-Nossek SALES AND LEASING CONSULTANT-CREDIT OPERATIONS SPECIALIST Work Phone: [facility] Start: 04-02-2024 End: 04-02-2024 Bamboo flowsheet Teresa Alonzo Jo Ann-Nossek SALES AND LEASING CONSULTANT-CREDIT OPERATIONS SPECIALIST Work Phone: [facility] Start: 04-02-2024 End: 04-02-2024 ambulatory TERESA Alonzo JO ANN-NOSSEK Not Available Start: 04-02-2024 End: 04-02-2024 Office outpatient visit 25 minutes Teresajohn Ornelas SALES AND LEASING CONSULTANT-CREDIT OPERATIONS SPECIALIST Work Phone: [facility] Comment on above: Generalized anxiety disorder (CMS/HCC); [...] Start: 02-13-2024 End: 02-13-2024 Bamboo flowsheet Emerita Suhasr MURAL ARTIST Work Phone: [facility] Start: 02-13-2024 End: 02-13-2024 Bamboo flowsheet Emerita Remediosmor MURAL ARTIST Work Phone: [facility] Start: 02-13-2024 End: 02-13-2024 ambulatory EMERITA REMEDIOSMOR Not Available Start: 02-13-2024 End: 02-13-2024 Office outpatient visit 15 minutes Emerita Warren MURAL ARTIST Work Phone: [facility] Comment on above: Intractable [...] Start: 01-10-2024 End: 01-18-2024 Bamboo flowsheet Raghavendra Valdezo DO Work Phone: [facility] Start: 01-10-2024 End: 01-18-2024 Clinisync Result Encounter Generic External Data Provider [facility] External Department Unsolicited Start: 01-10-2024 End: 01-11-2024 External Result Encounter Raghavendra Vasquez DO Work Phone: [facility] External Department Unsolicited Start: 01-10-2024 End: 01-10-2024 Patient encounter procedure Raghavendra Valdezo DO Work Phone: [facility] Work Phone: Start: 01-10-2024 End: 01-10-2024 Periodic preventive med est patient 18-39 yrs Raghavendra Valdezo DO Work Phone: [facility] Comment on above: Well woman exam with routine gynecological exam; Second trimester ; 18 weeks gestation of ; Vaginal discharge; STD exposure; Screening, , for anatomic survey; Gastroesophageal reflux in Start: 01-10-2024 End: 01-10-2024 ambulatory RAGHAVENDRA VASQUEZ Not Available Start: 01-01-2024 End: 01-01-2024 Bamboo flowsheet Teresa Cherry-Chayosek SALES AND LEASING CONSULTANTEcoFactor Work Phone: [facility] Start: 01-01-2024 End: 01-01-2024 Bamboo flowsheet Teresa Cherry-Nossek SALES AND LEASING CONSULTANT-[employer] Work Phone: [facility] Start: 01-01-2024 End: 01-01-2024 ambulatory TERESA ARRINGTONOR-NOSSEK Not Available Start: 01-01-2024 End: 01-01-2024 Office outpatient visit 25 minutes Teresa Arringtonor-Nossek SALES AND LEASING CONSULTANT-[employer] Work Phone: [facility] Comment on above: [...] Office outpatient visit 15 minutes Teresa Ornelas SALES AND LEASING CONSULTANT-CREDIT OPERATIONS SPECIALIST Work Phone: [facility] Comment on above: Attention deficit hy peractivity disorder (ADHD), combined type (CMS/HCC); Generalized anxiety disorder (CMS/HCC) Start: 11-27-2023 End: 11-27-2023 ambulatory TERESA Cheri ORNELAS Not Available Start: 11-01-2023 End: 11-01-2023 ambulatory [facility] Christina Nurse [facility] Comment on above: GA: 8w5d Start: 11-01-2023 End: 11-04-2023 Clinisync Result Encounter Generic External Data Provider [facility] External Department Unsolicited Start: 11-01-2023 End: 11-04-2023 Clinisync Result Encounter Generic External Data Provider [facility] External Department Unsolicited Start: 10-19-2023 End: 10-19-2023 Telephone encounter Ysabel Cabral MD Work Phone: [facility] Start: 10-18-2023 End: 10-18-2023 Bamboo flowsheet Evonne Childress DO Work Phone: [facility] [place] [address] Start: 10-18-2023 End: 10-18-2023 Bamboo flowsheet Evonne Childress DO Work Phone: [facility] [place] [facility] Start: 10-18-2023 End: 10-18-2023 Office outpatient visit 15 minutes Ysabel Cabral MD Work Phone: [facility] Comment on above: Morning sickness (Pr imary Dx) Start: 10-18-2023 End: 10-18-2023 ambulatory YSABEL CABRAL Not Available Start: 10-18-2023 End: 10-18-2023 Office outpatient visit 25 minutes Evonne Childress DO Work Phone: [facility] Comment on above: Intractable [...] Available Start: 08-16-2023 End: 08-16-2023 ambulatory CHLOE R DILLON Not Available Start: 08-10-2023 End: 08-10-2023 [...] ambulatory DR TALITA DODSON Facility: Start: 05-11-2021 ([facility] C Vac) [facility] Co vid Vaccine Vicky Joe [facility] Start: 05-11-2021 End: 05-11-2021 ambulatory Vicky Joe Other [facility] [employer] Other Start: 03-01-2021 End: 03-01-2021 ambulatory CHLOE CARVAJAL Facility:[facility]1 Start: 12-10-2020 End: 12-10-[address] TALITA DODSON Facility:[facility] Procedures Date Procedure Procedure Detail Performing Clinician Start: 04-29-2024 OB BPP W NON-STRESS Generic External Data Provider Start: 04-29-2024 Urnls dip stick/tabl et rgnt non-auto w/o micrscp Raghavendra Christina DO Work Phone: Start: 04-22-2024 OB BPP W NON-STRESS Generic External Data Provider Start: 04-15-2024 OB GROWTH Generic Ex ternal Data Provider Start: 04-15-2024 OB BPP W NON-STRESS Generic External Data Provider Start: 04-08-2024 Urnls dip stick/tabl et rgnt non-auto w/o micrscp Veda CARLSON Work Phone: Start: 03-25-2024 OB GROWTH Generic Ex ternal Data Provider Start: 03-25-2024 Urnls dip stick/tabl et rgnt non-auto w/o micrscp Raghavendra Christina DO Work Phone: Start: 03-11-2024 Urnls dip stick/tabl et rgnt non-auto w/o micrscp Raghavendra Christina DO Work Phone: Start: 03-10-2024 ALL CBC WITH AUTO DIFF Generic External Data Provider Start: 03-07-2024 TBH UA (CLEAN/CATCH) CREDIT OPERATIONS SPECIALIST/MICRO IF IND. Raghavendra Christina DO Work Phone: [...] HBSAG, HCV, CA, MG, RHF, URCA #### [facility] [address] [facility], [address] Plan of Treatment Date Care Activity Detail Author Start: 01-09-2027 Screening for malign ant neoplasm of cervix [facility] Start: 06-17-2024 End: 06-17-2024 Patient encounter procedure 06/17/2024 11:30 AM EDT Office Visit [facility] [address] [facility] [address] [place] [address] Teresa Ornelas, SALES AND LEASING CONSULTANT-CREDIT OPERATIONS SPECIALIST [address] [facility] [address] [place] [address] [facility] Start: 05-13-2024 End: 05-13-2024 Patient encounter procedure 05/13/2024 2:00 PM EDT Routine [facility] [address] [facility] [place] [address] Raghavendra Vasquez, DO [address] [place] [address] [facility] Start: 05-06-2024 End: 05-06-2024 Patient encounter procedure [address] [place] [address] Start: 04-29-2024 End: 04-29-2025 US for US OB follow up transabdominal approach Imaging Routine 34 weeks gestation of size inconsistent with dates Expected: 04/29/2024, Expires: 04/29/2025 [facility] Work Phone: Comment on above: Expected: 04/29/2024 , Expires: 04/29/2025 Start: 04-23-2024 End: 04-23-2024 Patient encounter procedure 04/23/2024 11:10 AM EST Routine [facility] [address] [facility] [address] Raghavendra Vasquez, DO [address] [place] [address] [facility] Start: 04-08-2024 End: 10-06-2024 [...] [facility] [address] [place] [address] Raghavendra Vasquez, DO [address] [place] [address] [facility] Start: 04-02-2024 End: 04-02-2024 Patient encounter procedure 04/02/2024 11:00 AM EST Office Visit [facility] [address] [facility] [address] [place] [address] Teresa Ornelas, SALES AND LEASING CONSULTANT-CREDIT OPERATIONS SPECIALIST [address] [facility] [address] [place] [address] [facility] Start: 03-25-2024 End: 03-25-2024 Patient encounter procedure 03/25/2024 10:00 AM EST Routine [facility] [address] [facility] [phone] Raghavendra Vasquez, DO [address] [facility] [place] [address] [facility] Start: 03-11-2024 End: 03-11-2024 Patient encounter procedure 03/11/2024 9:40 AM EST Routine [facility] [address] [facility] [place] [phone] Raghavendra Vasquez, DO [address] [place] [address] [facility] Start: 02-13-2024 End: 02-13-2024 Patient encounter procedure 02/13/2024 1:00 PM EST Office Visit [facility] [place] [address] [place] [phone] Emerita Warren, NATAN [address] [place], [place] [facility] [place] [address] [facility] Start: 02-11-2024 End: 02-10-2025 CBC [...] mellitus screening Expected: 02/11/2024 (Approximate), Expires: 02/10/2025 [facility] Comment on above: Expected: 02/11/2024 (Approximate), Expires: 02/10/2025 Start: 02-11-2024 End: 02-10-2025 US for US OB SCAN FOR GROWTH Imaging Routine 23 weeks gestation of Diabetes mellitus screening Expected: 02/11/2024 (Approximate), Expires: 02/10/2025 [facility] Comment on above: Expected: 02/11/2024 (Approximate), Expires: 02/10/2025 Start: 02-11-2024 End: 02-11-2024 Patient encounter procedure 02/11/2024 9:40 AM EST Routine [facility] [address] [facility] [place] [address] Raghavendra Vasquez, [address] [facility] [place] [address] [facility] OB Start: 01-28-2024 End: 01-28-2024 Professional / ancillary services management 01/28/2024 11:00 AM EST Ancillary Procedure [facility] [address] [place] [phone] [facility] Start: 01-10-2024 End: 07-09-2024 Alpha fetoprotein, maternal Alpha fetoprotein, maternal Lab Routine Second trimester 18 weeks gestation of Expected: 01/10/2024 (Approximate), Expires: 07/09/2024 [facility] Comment on above: Expected: 01/10/2024 (Approximate), Expires: 07/09/2024 Start: 01-10-2024 End: 01-09-2025 US for US OB ANATOMY SINGLE W US OB CERVICAL LENGTH Imaging Routine Screening, , for anatomic survey Expected: 01/10/2024 (Approximate), Expires: 01/09/2025 [facility] Comment on above: Expected: 01/10/2024 (Approximate), Expires: 01/09/2025 Start: 01-03-2024 End: 01-03-2024 Patient encounter procedure 01/03/2024 11:20 AM EST Routine [facility] [address] [place] [phone] Raghavendra Vasquez, DO [address] [place] [address] [facility] Start: 01-01-2024 End: 01-01-2024 Patient encounter procedure 01/01/2024 11:30 AM EST Office Visit [facility] [address] [facility] [address] [place] [address] Teresa Ornelas, SALES AND LEASING CONSULTANT-[facility] [address] [facility] [address] [place] [address] [facility] Start: 12-18-2023 End: 12-18-2023 Patient encounter procedure 12/18/2023 5:30 PM EDT Office Visit [facility] [place] [address] [place] [phone] Evonne Childress, [address] [place] [address] [facility] [place] [address] Start: 11-28-2023 End: 11-28-2023 Patient encounter procedure 11/28/2023 2:20 PM EDT Routine [facility] [address] [place] [phone] Raghavendra Vasquez, DO [address] [place] [address] [facility] Start: 11-27-2023 End: 11-27-2023 Patient encounter procedure 11/27/2023 11:00 AM EDT Office Visit [facility] [address] [facility] [address] [place] [address] Teresa Ornelas, SALES AND LEASING CONSULTANT-[facility] [address] [facility] [address] [place] [address] [facility] Start: 11-01-2023 End: 10-31-2024 ABO/Rh ABO/Rh Lab Routine Missed menses Expected: 11/01/2023 (Approximate), Expires: 10/31/2024 [facility] Comment on above: Expected: 11/01/2023 (Approximate), Expires: 10/31/2024 Start: 11-01-2023 End: 11-01-2023 ambulatory 11/01/2023 2:00 PM EDT Initial [facility] [address] [place] [address] [facility] Start: 11-01-2023 End: 10-31-2024 Blood type and Indirect antibody screen panel - Blood Type and screen Lab Routine Missed menses Expected: 11/01/2023 (Approximate), Expires: 10/31/2024 [facility] Work Phone: Comment on above: Expected: 11/01/2023 (Approximate), Expires: 10/31/2024 Start: 11-01-2023 End: 10-31-2024 US Pelvis transvaginal US OB transvaginal Imaging Routine Missed menses Expected: 11/01/2023 (Approximate), Expires: 10/31/2024 [facility] Comment on above: Expected: 11/01/2023 (Approximate), Expires: 10/31/2024 Start: 11-01-2023 End: 11-01-2023 Professional / ancillary services management 11/01/2023 1:30 PM EDT Ancillary Procedure [facility] [address] [place] [address] [facility] Start: 10-28-2023 Influenza vaccination Influenza Vacc ine (#1) [facility] Start: 10-18-2023 End: 10-18-2023 Patient encounter procedure 10/18/2023 11:40 AM EDT Office Visit [facility] MICHELLE [address] [place] [phone] Ysabel Cabral MD [address] [place], [place] [id number] [facility] Start: 10-18-2023 End: 10-18-2023 Patient encounter procedure 10/18/2023 10:30 AM EDT Procedure Visit [facility] [place] [address] [place] [address] Evonne Childress DO [address] [place] [address] Arrived [facility] Comment on above: Arrived Start: 09-10-2017 Screening for malign ant neoplasm of cervix [facility] Start: 09-10-2008 Screening for malign ant neoplasm of cervix Pap Smear [facility] Bacteria identified in Urine by Culture Urine culture Microbiology Routine Missed menses Ordered: 11/01/2023 [facility] Comment on above: Ordered: 11/01/2023 CBC W Auto Different ial panel - Blood CBC and differential Lab Routine Missed menses Ordered: 11/01/2023 [facility] Comment on above: Ordered: 11/01/2023 CHLAMYDIA TRACHOMATI S (GENITO/STI) CHLAMYDIA TRACHOMATIS (GENITO/STI) Lab Routine STD exposure Ordered: 01/10/2024 [facility] Comment on above: Ordered: 01/10/2024 Cytology Cervical or vaginal smear or scraping study Pap Smear Pathology and Cytology Routine Well woman exam with routine gynecological exam Ordered: 01/10/2024 [facility] Comment on above: Ordered: 01/10/2024 Hemoglobin A1c/Hemoglobin.total in Blood Hemoglobin A1c Lab Routine Missed menses Ordered: 11/01/2023 [facility] Comment on above: Ordered: 11/01/2023 Hepatitis B virus surface Ag [Presence] in Serum or Plasma by Immunoassay Hepatitis B surface antigen Lab Routine Missed menses Ordered: 11/01/2023 [facility] Comment on above: Ordered: 11/01/2023 Hepatitis C virus Ab [Presence] in Serum or Plasma by Immunoassay Hepatitis C antibody Lab Routine Missed menses Ordered: 11/01/2023 [facility] Comment on above: Ordered: 11/01/2023 HIV-1/HIV-2 antigen/antibody combination immunoassay HIV-1 and HIV-2 antibodies Lab Routine Missed menses Ordered: 11/01/2023 [facility] Comment on above: Ordered: 11/01/2023 Human papilloma viru s DNA [Presence] in Unspecified specimen by Probe with amplification HPV DNA probe, amplified Microbiology Routine Well woman exam with routine gynecological exam Ordered: 01/10/2024 [facility] Comment on above: Ordered: 01/10/2024 Neisseria gonorrhoea e DNA [Presence] in Unspecified specimen by ERIC with probe detection Neisseria gonorrhea DNA probe, direct Lab Routine STD exposure Ordered: 01/10/2024 [facility] Comment on above: Ordered: 01/10/2024 Reagin Ab [Presence] in Serum by RPR RPR Lab Routine Missed menses Ordered: 11/01/2023 [facility] Comment on above: Ordered: 11/01/2023 Rubella antibody, IgG Rubella an tibody, IgG Lab Routine Missed menses Ordered: 11/01/2023 [facility] Comment on above: Ordered: 11/01/2023 SURESWAB(R) ADVANCED VAGINITIS PLUS, TMA SURESWAB(R) ADVANCED VAGINITIS PLUS, TMA Pathology and Cytology Routine Vaginal discharge Ordered: 01/10/2024 [facility] Work Phone: Comment on above: Ordered: 01/10/2024 Immunizations Immunization Date Immunization Notes Care Provider Corrina hanson 05-11-2021 COVID-19 En Joe Other [employer] Other 10-02-2016 influenza, injectabl e, quadrivalent, preservative free Evonne Jaydon DO Work Phone: [facility] 10-02-2016 influenza virus vaccine, unspecified formulation Evonne Jaydon DO Work Phone: [facility] 10-13-2015 influenza, injectabl e, quadrivalent, preservative free Evonne Jaydon DO Work Phone: [facility] 12-02-2014 influenza, seasonal, injectable, preservative free Evonne Childress DO Work Phone: [facility] Payers Date Payer Category Payer Medicaid [facility] MEDICAID [place] MEDICAID [id number] 2021-Present [address] [place] [address] [id number] 2021 Medicaid (Managed Care) [facility] MEDICAID [id number] 1987 Unknown [id number] 2.840.1.498949.3.579.2. 593 1987 Unknown [id number] 2.16840.1.873230.3.579.2. 593 1987 Unknown [id number] 2.16840.1.991564.3.579.2. 593 1987 Unknown [id number] 2.16.840.1.388285.3.579.2. 1259 1987 Unknown [id number] 2.16.840.1.645457.3.579.2. 1259 1987 Unknown [id number] 2.16.840.1.626535.3.579.2. 1259 1987 Unknown [id number] 2.16.840.1.097741.3.579.2. 1259 1987 Unknown [id number] 2.16.840.1.229795.3.579.2. 1258 1987 Unknown [id number] 2.16.840.1.841949.3.579.2. 1258 1987 Unknown [id number] 2..840.1.945149.3.579.2. 1258 1987 Unknown [id number] 2.16.840.1.966698.3.579.2. 1258 1987 Unknown [id number] 2..840.1.472720.3.579.2. 1258 1987 Unknown [id number] 2..840.1.894983.3.579.2. 1258 1987 Unknown [id number] 2.840.1.822901.3.579.2. 1258 1987 Unknown [id number] 2.840.1.376207.3.579.2. 1258 1987 Unknown [id number] 2.840.1.556364.3.579.2. 1258 1987 Unknown [id number] 2.840.1.293768.3.579.2. 1258 1987 Unknown [id number] 2.840.1.694954.3.579.2. 1258 1987 Unknown [id number] 2.840.1.698204.3.579.2. 1258 1987 Unknown [id number] 2.840.1.429318.3.579.2. 1258 1987 Unknown [id number] 2.840.1.025279.3.579.2. 1258 1987 Unknown [id number] 2.840.1.274873.3.579.2. 1258 1987 Unknown [id number] 2..840.1.456659.3.579.2. 1258 1987 Unknown [id number] 2.840.1.623624.3.579.2. 1259 1987 Unknown [id number] 2.16.840.1.204035.3.579.2. 9 1987 Unknown [id number] 2.16.840.1.043907.3.579.2. 9 1987 Unknown [id number] 2.16.840.1.539814.3.579.2. 9 1987 Unknown [id number] 2.16.840.1.726106.3.579.2. 1259 1959 Unknown [id number] 2.16.840.1.396091.19 Social History Date Type Detail Facility Unknown if ever smoked [employer] Other Start: 2022 End: 01-01-2024 Sex Assigned At [employer] Other Start: 12-22-2022 Tobacco smoking stat [facility] Never smoked tobacco [facility] [...] dinner [facility] Clinical Notes 05-11-2021 to 04-29-2024 Betsey Malave, BLOOD DONOR RECRUITER - 04/29/2024 2:00 PM Christine Lundberg, BLOOD DONOR RECRUITER - 04/08/2024 11:40 AM America CherryVenitaAdrianne, SALES AND LEASING CONSULTANT-CREDIT OPERATIONS SPECIALIST - 04/02/2024 11:00 AM Christine Lundberg, BLOOD DONOR RECRUITER - 03/25/2024 10:00 AM EST Note Date & Type Note Facility 04-29-2024 History of Present illness Narrative Reason for Appointment: Patient ID: Tiki Moeller is a 38 y.o. female who presents for Routine Visit Patient presents today for Return OB appointment. MEDICATIONS Current Outpatient Medications Medication Instructions albuterol HFA (ProAir HFA) 90 mcg/act inhaler cyclobenzaprine (Flexeril) 5 MG tablet 1/2-1 po q hs omeprazole (PRILOSEC) 20 mg, Oral, Daily before [...] Attention deficit hyperactivity disorder (ADHD), combined type ([facility]) 07/04/2022 Episodic mood disorder ([facility]) 07/04/2022 Generalized anxiety disorder ([facility]) 07/04/2022 Panic disorder ([facility]) 07/04/2022 Acquired scoliosis 09/09/2016 Allergic rhinitis 10/16/2019 Anxiety 01/31/2020 Asthma ([facility]) 12/31/2014 Chronic fatigue syndrome 07/03/2016 Chronic gastritis without bleeding 12/28/2022 Irritable bowel syndrome 07/03/2016 Migraine without aura and without status migrainosus, not intractable ([facility]) 09/19/2017 Mild intermittent asthma ([facility]) 02/28/2021 Primary localized osteoarthrosis of ankle and [...] left breast ADHD (attention deficit hyperactivity disorder) (CMS/HCC) Anemia Back pain Common migraine (CMS/HCC) 08/17/2015 Depression ([facility]/HCC) H/O colonoscopy H/O umbilical hernia repair Insomnia 06/25/2017 Migraines (CMS/HCC) Nausea with vomiting 08/17/2015 Tendonitis of right hand Tension headache 08/17/2015 HISTORY PAST MEDICAL HISTORY SOCIAL HISTORY Past Medical History: Diagnosis Date Adenoma of left breast removed 2013 ADHD (attention deficit hyperactivity disorder) (CMS/HCC) Anemia Anxiety Asthma (CMS/HCC) Back pain Common migraine (CMS/HCC) 08/17/2015 Depression ([facility]/HCC) H/O colonoscopy 2012 H/O umbilical hernia repair 2008 Headache 08/17/2015 Inadequate sleep hygiene 04/23/2018 Insomnia 06/25/2017 Migraine (CMS/HCC) 03/22/2017 Migraines ([facility]) Nausea with vomiting 08/17/2015 Pain in limb [...] disorder Mother Idania Swartz Hyperlipidemia Mother Idania Sawrtz Sarcoidosis Mother Idania Swartz Migraines Mother Idania [...] nursing note reviewed. Exam conducted with a heavy threader present. Vitals: Estimated body mass index is 28.72 kg/m as calculated from the following: Height as of 24: 5' 3 . Weight as of this encounter: 162 lb 1.9 oz. BP: 98/70 Patient's last menstrual period was 09/01/2023. ASSESSMENT & PLAN ICD-10-CM 1. Third trimester Z34.93 POCT urinalysis dipstick manually resulted 2. 34 weeks gestation of Z3A.34 Patient presents today for a routine obstetrics appointment. Patient is currently 34w3d with a Estimated Date of Delivery: 06/07/24. Patient not having any issues at this time. Patient to return to clinic in 1-2 weeks. Documented by Betsey Malave LPN on behalf of: Raghavendra Vasquez DO documented in this encounter [facility] 04-08-2024 History of Present illness Narrative Reason [...] Attention deficit hyperactivity disorder (ADHD), combined type ([facility]) 07/04/2022 Episodic mood disorder ([facility]) 07/04/2022 Generalized anxiety disorder ([facility]) 07/04/2022 Panic disorder ([facility]) 07/04/2022 Acquired scoliosis 09/09/2016 Allergic rhinitis 10/16/2019 Anxiety 01/31/2020 Asthma ([facility]) 12/31/2014 Chronic fatigue syndrome 07/03/2016 Chronic gastritis without bleeding 12/28/2022 Irritable bowel syndrome 07/03/2016 Migraine without aura and without status migrainosus, not intractable ([facility]) 09/19/2017 Mild intermittent asthma ([facility]) 02/28/2021 Primary localized osteoarthrosis of ankle and foot 03/13/2019 Vitamin D deficiency 12/28/2022 Headache 06/28/2023 Inadequate sleep hygiene 06/28/2023 Migraine ([facility]) 06/28/2023 Tenosynovitis of foot 06/28/2023 Nausea and vomiting 06/28/2023 Common migraine with intractable migraine ([facility]) 06/28/2023 Pain in limb 06/28/2023 Chronic tension-type headache, not intractable 06/28/2023 Sleep disturbance 06/28/2023 Insomnia, unspecified 06/28/2023 Other problems related to lifestyle 06/28/2023 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 08/10/2023 Resolved Ambulatory Problems Diagnosis Date Noted No Resolved Ambulatory Problems Past Medical History: Diagnosis Date Adenoma of left breast ADHD (attention deficit hyperactivity disorder) ([facility]) Anemia Back pain Common migraine ([facility]) 08/17/2015 Depression ([facility]) H/O colonoscopy H/O umbilical hernia repair Insomnia 06/25/2017 Migraines ([facility]) Nausea with vomiting 08/17/2015 Tendonitis of right hand Tension headache 08/17/2015 HISTORY PAST MEDICAL HISTORY SOCIAL HISTORY Past Medical History: Diagnosis Date Adenoma of left breast removed 2013 ADHD (attention deficit hyperactivity disorder) ([facility]) Anemia Anxiety Asthma ([facility]) Back pain Common migraine ([facility]) 08/17/2015 Depression ([facility]) H/O colonoscopy 2012 H/O umbilical hernia repair 2008 Headache 08/17/2015 Inadequate sleep hygiene 04/23/2018 Insomnia 06/25/2017 Migraine (CMS/HCC) 03/22/2017 Migraines ([facility]) Nausea with vomiting 08/17/2015 Pain in limb [...] Migraines Mother Idania Swartz Rheum arthritis Father Amandeepjeniffer Moeller Depression Father Amandeep Moeller Alcohol abuse [...] nursing note reviewed. Exam conducted with a heavy threader present. Vitals: Estimated body mass index is [...] Veda Sarmiento PA-C documented in this encounter [facility] 04-02-2024 History of Present illness Narrative Images from the original note were not included. Patient reports not starting the Zoloft after last visit. Tiki Moeller is a 38 y.o. female presents for Medication Management. HPI: Patient is here for medication follow up. Patient is currently 32weeks decided not to take zoloft. Got fired from [employer] due to falling asleep. She was feeling [...] removed 2013 ADHD (attention deficit hyperactivity disorder) ([facility]) Anemia Anxiety Asthma ([facility]) Back pain Common migraine (CMS/HCC) 08/17/2015 Depression [...] check for post documented in this encounter [facility] 03-25-2024 History of Present illness Narrative Reason [...] Generalized anxiety disorder (CMS/HCC) 07/04/2022 Panic disorder (CMS/HCC) 07/04/2022 Acquired scoliosis 09/09/2016 Allergic rhinitis 10/16/2019 Anxiety 01/31/2020 Asthma ([facility]/HCC) 12/31/2014 Chronic fatigue syndrome 07/03/2016 Chronic gastritis without bleeding 12/28/2022 Irritable bowel syndrome 07/03/2016 Migraine without aura and without status migrainosus, not intractable ([facility]) 09/19/2017 Mild intermittent asthma ([facility]) 02/28/2021 Primary localized osteoarthrosis of ankle and foot 03/13/2019 Vitamin D deficiency 12/28/2022 Headache 06/28/2023 Inadequate sleep hygiene 06/28/2023 Migraine ([facility]/HCC) 06/28/2023 Tenosynovitis of foot 06/28/2023 Nausea and vomiting 06/28/2023 Common migraine with intractable migraine ([facility]) 06/28/2023 Pain in limb 06/28/2023 Chronic tension-type headache, not intractable 06/28/2023 Sleep disturbance 06/28/2023 Insomnia, unspecified 06/28/2023 Other problems related to lifestyle 06/28/2023 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 08/10/2023 Resolved Ambulatory Problems Diagnosis Date Noted No Resolved Ambulatory Problems Past Medical History: Diagnosis Date Adenoma of left breast ADHD (attention deficit hyperactivity disorder) ([facility]) Anemia Back pain Common migraine ([facility]) 08/17/2015 Depression ([facility]) H/O colonoscopy H/O umbilical hernia repair Insomnia 06/25/2017 Migraines ([facility]) Nausea with vomiting 08/17/2015 Tendonitis of right hand Tension headache 08/17/2015 HISTORY PAST MEDICAL HISTORY SOCIAL HISTORY Past Medical History: Diagnosis Date Adenoma of left breast removed 2013 ADHD (attention deficit hyperactivity disorder) ([facility]) Anemia Anxiety Asthma ([facility]) Back pain Common migraine ([facility]) 08/17/2015 Depression ([facility]) H/O colonoscopy 2012 H/O umbilical hernia repair 2007 Headache 08/17/2015 Inadequate sleep hygiene 04/23/2018 Insomnia 06/25/2017 Migraine ([facility]/HCC) 03/22/2017 Migraines ([facility]) Nausea with vomiting 08/17/2015 Pain in limb [...] [place]artz Sarcoidosis Mother Idania Swartz Migraines Mother Idaina Swartz Rheum arthritis Father Amandeep Moeller Depression [...] nursing note reviewed. Exam conducted with a heavy threader present. Vitals: Estimated body mass index is 27.63 kg/m as calculated from the following: Height as of 12/18/24: 5' 3 . Weight as of this [...] Raghavendra Vasquez DO documented in this encounter [facility] 03-11-2024 History of Present illness Narrative Reason [...] Attention deficit hyperactivity disorder (ADHD), combined type ([facility]) 07/04/2022 Episodic mood disorder ([facility]) 07/04/2022 Generalized anxiety disorder ([facility]) 07/04/2022 Panic disorder ([facility]) 07/04/2022 Acquired scoliosis 09/09/2016 Allergic rhinitis 10/16/2019 Anxiety 01/31/2020 Asthma ([facility]) 12/31/2014 Chronic fatigue syndrome 07/03/2016 Chronic gastritis without bleeding 12/28/2022 Irritable bowel syndrome 07/03/2016 Migraine without aura and without status migrainosus, not intractable ([facility]) 09/19/2017 Mild intermittent asthma ([facility]) 02/28/2021 Primary localized osteoarthrosis of ankle and foot 03/13/2019 Vitamin D deficiency 12/28/2022 Headache 06/28/2023 Inadequate sleep hygiene 06/28/2023 Migraine ([facility]) 06/28/2023 Tenosynovitis of foot 06/28/2023 Nausea and vomiting 06/28/2023 Common migraine with intractable migraine ([facility]) 06/28/2023 Pain in limb 06/28/2023 Chronic tension-type headache, not intractable 06/28/2023 Sleep disturbance 06/28/2023 Insomnia, unspecified 06/28/2023 Other problems related to lifestyle 06/28/2023 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 08/10/2023 Resolved Ambulatory Problems Diagnosis Date Noted No Resolved Ambulatory Problems Past Medical History: Diagnosis Date Adenoma of left breast ADHD (attention deficit hyperactivity disorder) ([facility]) Anemia Back pain Common migraine ([facility]) 08/17/2015 Depression ([facility]) H/O colonoscopy H/O umbilical hernia repair Insomnia 06/25/2017 Migraines ([facility]) Nausea with vomiting 08/17/2015 Tendonitis of right hand Tension headache 08/17/2015 HISTORY PAST MEDICAL HISTORY SOCIAL HISTORY Past Medical History: Diagnosis Date Adenoma of left breast removed 2013 ADHD (attention deficit hyperactivity disorder) ([facility]) Anemia Anxiety Asthma ([facility]) Back pain Common migraine ([facility]) 08/17/2015 Depression ([facility]) H/O colonoscopy 2012 H/O umbilical hernia repair 2008 Headache 08/17/2015 Inadequate sleep hygiene 04/23/2018 Insomnia 06/25/2017 Migraine ([facility]) 03/22/2017 Migraines ([facility]) Nausea with vomiting 08/17/2015 Pain in limb [...] nursing note reviewed. Exam conducted with a heavy threader present. Vitals: Estimated body mass index is [...] Raghavendra Vasquez DO documented in this encounter [facility] 02-11-2024 History of Present illness Narrative [...] Attention deficit hyperactivity disorder (ADHD), combined type ([facility] 07/04/2022 Episodic mood disorder ([facility]) 07/04/2022 Generalized anxiety disorder ([facility]) 07/04/2022 Panic disorder ([facility]) 07/04/2022 Acquired scoliosis 09/09/2016 Allergic rhinitis 10/16/2019 Anxiety 01/31/2020 Asthma ([facility]) 12/31/2014 Chronic fatigue syndrome 07/03/2016 Chronic gastritis without bleeding 12/28/2022 Irritable bowel syndrome 07/03/2016 Migraine without aura and without status migrainosus, not intractable ([facility]) 09/19/2017 Mild intermittent asthma ([facility]) 02/28/2021 Primary localized osteoarthrosis of ankle and foot 03/13/2019 Vitamin D deficiency 12/28/2022 Headache 06/28/2023 Inadequate sleep hygiene 06/28/2023 Migraine ([facility]) 06/28/2023 Tenosynovitis of foot 06/28/2023 Nausea and vomiting 06/28/2023 Common migraine with intractable migraine ([facility]) 06/28/2023 Pain in limb 06/28/2023 Chronic tension-type headache, not intractable 06/28/2023 Sleep disturbance 06/28/2023 Insomnia, unspecified 06/28/2023 Other problems related to lifestyle 06/28/2023 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 08/10/2023 Resolved Ambulatory Problems Diagnosis Date Noted No Resolved Ambulatory Problems Past Medical History: Diagnosis Date Adenoma of left breast ADHD (attention deficit hyperactivity disorder) ([facility]) Anemia Back pain Common migraine ([facility]) 08/17/2015 Depression ([facility]) H/O colonoscopy H/O umbilical hernia repair Insomnia 06/25/2017 Migraines ([facility]) Nausea with vomiting 08/17/2015 Tendonitis of right hand Tension headache 08/17/2015 HISTORY PAST MEDICAL HISTORY SOCIAL HISTORY Past Medical History: Diagnosis Date Adenoma of left breast removed 2013 ADHD (attention deficit hyperactivity disorder) ([facility]) Anemia Anxiety Asthma ([facility]) Back pain Common migraine ([facility]) 08/17/2015 Depression ([facility]) H/O colonoscopy 2012 H/O umbilical hernia repair 2008 Headache 08/17/2015 Inadequate sleep hygiene 04/23/2018 Insomnia 06/25/2017 Migraine (CMS/HCC) 03/22/2017 Migraines ([facility]/HCC) Nausea with vomiting 08/17/2015 Pain in limb [...] nursing note reviewed. Exam conducted with a heavy threader present. Vitals: Estimated body mass index is [...] Raghavendra Vasquez DO documented in this encounter [facility] 01-10-2024 History of Present illness Narrative [...] Attention deficit hyperactivity disorder (ADHD), combined type ([facility]) 07/04/2022 Episodic mood disorder ([facility]) 07/04/2022 Generalized anxiety disorder ([facility]) 07/04/2022 Panic disorder ([facility]) 07/04/2022 Acquired scoliosis 09/09/2016 Allergic rhinitis 10/16/2019 Anxiety 01/31/2020 Asthma ([facility]) 12/31/2014 Chronic fatigue syndrome 07/03/2016 Chronic gastritis without bleeding 12/28/2022 Irritable bowel syndrome 07/03/2016 Migraine without aura and without status migrainosus, not intractable ([facility]) 09/19/2017 Mild intermittent asthma ([facility]) 02/28/2021 Primary localized osteoarthrosis of ankle and foot 03/13/2019 Vitamin D deficiency 12/28/2022 Headache 06/28/2023 Inadequate sleep hygiene 06/28/2023 Migraine ([facility]) 06/28/2023 Tenosynovitis of foot 06/28/2023 Nausea and vomiting 06/28/2023 Common migraine with intractable migraine ([facility]) 06/28/2023 Pain in limb 06/28/2023 Chronic tension-type headache, not intractable 06/28/2023 Sleep disturbance 06/28/2023 Insomnia, unspecified 06/28/2023 Other problems related to lifestyle 06/28/2023 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 08/10/2023 Resolved Ambulatory Problems Diagnosis Date Noted No Resolved Ambulatory Problems Past Medical History: Diagnosis Date Adenoma of left breast ADHD (attention deficit hyperactivity disorder) ([facility]) Anemia Back pain Common migraine ([facility]) 08/17/2015 Depression ([facility]) H/O colonoscopy H/O umbilical hernia repair Insomnia 06/25/2017 Migraines ([facility]) Nausea with vomiting 08/17/2015 Tendonitis of right hand Tension headache 08/17/2015 HISTORY PAST MEDICAL HISTORY SOCIAL HISTORY Past Medical History: Diagnosis Date Adenoma of left breast removed 2013 ADHD (attention deficit hyperactivity disorder) ([facility]) Anemia Anxiety Asthma ([facility]) Back pain Common migraine ([facility]/HCC) 08/17/2015 Depression (CMS/HCC) H/O colonoscopy 2012 H/O umbilical hernia repair 2008 Headache 08/17/2015 Inadequate sleep hygiene 04/23/2018 Insomnia 06/25/2017 Migraine (CMS/HCC) 03/22/2017 Migraines ([facility]) Nausea with vomiting 08/17/2015 Pain in limb [...] nursing note reviewed. Exam conducted with a heavy threader present. Vitals: Estimated body mass index is [...] obtained without difficulty and patient was given [facility] order to have obtained. Sent Omeprazole [...] Raghavendra Vasquez DO documented in this encounter [facility] 01-01-2024 History of Present illness Narrative [...] visit. 20 weeks. 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 Psychosocial stressors include . SUBJECTIVE: PAST MEDICAL HISTORY: Past Medical History: Diagnosis Date Adenoma of left breast removed 2013 ADHD (attention deficit hyperactivity disorder) ([facility]) Anemia Anxiety Asthma ([facility]) Back pain Common migraine ([facility]) 08/17/2015 Depression ([facility]) H/O colonoscopy 2012 H/O umbilical hernia repair 2007 Headache 08/17/2015 Inadequate sleep hygiene 04/23/2018 Insomnia 06/25/2017 Migraine ([facility]) 03/22/2017 Migraines ([facility]) Nausea with vomiting 08/17/2015 Pain in limb [...] and Time Memory/Concentration Short term intact and rodent exterminator intact Insight/Judgement Fair OBJECTIVE: Visit Vitals LMP [...] Visit time :32min documented in this encounter [facility] 11-28-2023 History of Present illness Narrative [...] Attention deficit hyperactivity disorder (ADHD), combined type ([facility]) 07/04/2022 Episodic mood disorder ([facility]) 07/04/2022 Generalized anxiety disorder ([facility]) 07/04/2022 Panic disorder ([facility]) 07/04/2022 Acquired scoliosis 09/09/2016 Allergic rhinitis 10/16/2019 Anxiety 01/31/2020 Asthma ([facility]) 12/31/2014 Chronic fatigue syndrome 07/03/2016 Chronic gastritis without bleeding 12/28/2022 Irritable bowel syndrome 07/03/2016 Migraine without aura and without status migrainosus, not intractable ([facility]) 09/19/2017 Mild intermittent asthma ([facility]) 02/28/2021 Primary localized osteoarthrosis of ankle and foot 03/13/2019 Vitamin D deficiency 12/28/2022 Headache 06/28/2023 Inadequate sleep hygiene 06/28/2023 Migraine (CMS/HCC) 06/28/2023 Tenosynovitis of foot 06/28/2023 Nausea and vomiting 06/28/2023 Common migraine with intractable migraine ([facility]/HCC) 06/28/2023 Pain in limb 06/28/2023 Chronic tension-type headache, not intractable 06/28/2023 Sleep disturbance 06/28/2023 Insomnia, unspecified 06/28/2023 Other problems related to lifestyle 06/28/2023 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 08/10/2023 Resolved Ambulatory Problems Diagnosis Date Noted No Resolved Ambulatory Problems Past Medical History: Diagnosis Date Adenoma of left breast ADHD (attention deficit hyperactivity disorder) ([facility]) Anemia Back pain Common migraine ([facility]CC) 08/17/2015 Depression ([facility]) H/O colonoscopy H/O umbilical hernia repair Insomnia 06/25/2017 Migraines ([facility]) Nausea with vomiting 08/17/2015 Tendonitis of right hand Tension headache 08/17/2015 HISTORY PAST MEDICAL HISTORY SOCIAL HISTORY Past Medical History: Diagnosis Date Adenoma of left breast removed 2013 ADHD (attention deficit hyperactivity disorder) ([facility]) Anemia Anxiety Asthma ([facility]) Back pain Common migraine ([facility]) 08/17/2015 Depression ([facility]) H/O colonoscopy 2012 H/O umbilical hernia repair 2007 Headache 08/17/2015 Inadequate sleep hygiene 04/23/2018 Insomnia 06/25/2017 Migraine (CMS/HCC) 03/22/2017 Migraines ([facility]) Nausea with vomiting 08/17/2015 Pain in limb [...] nursing note reviewed. Exam conducted with a heavy threader present. Vitals: Estimated body mass index is [...] or undercooked meat, and stay away from [facility]. Patient has been consulted regarding any [...] Raghavendra Vasquez DO documented in this encounter [facility] 11-27-2023 History of Present illness Narrative [...] work done. 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 Psychosocial stressors include . 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 female who [...] the following prescription(s): albuterol hfa, albuterol hfa, quswawmkcq-lsrzppzixsuks-itnaxhzs , cyanocobalamin, d3-1000, dicyclomine, fluticasone, onabotulinumtoxina, ondansetron, promethazine, sertraline, and tizanidine. Medical History: Active Ambulatory Problems Diagnosis Date Noted Attention deficit hyperactivity disorder (ADHD), combined type (CMS/HCC) 07/04/2022 Episodic mood disorder (CMS/HCC) 07/04/2022 Generalized anxiety disorder ([facility]) 07/04/2022 Panic disorder ([facility]) 07/04/2022 Acquired scoliosis 09/09/2016 Allergic rhinitis 10/16/2019 Anxiety 01/31/2020 Asthma ([facility]) 12/31/2014 Chronic fatigue syndrome 07/03/2016 Chronic gastritis without bleeding 12/28/2022 Irritable bowel syndrome 07/03/2016 Migraine without aura and without status migrainosus, not intractable ([facility]) 09/19/2017 Mild intermittent asthma ([facility]) 02/28/2021 Primary localized osteoarthrosis of ankle and foot 03/13/2019 Vitamin D deficiency 12/28/2022 Headache 06/28/2023 Inadequate sleep hygiene 06/28/2023 Migraine ([facility]) 06/28/2023 Tenosynovitis of foot 06/28/2023 Nausea and vomiting 06/28/2023 Common migraine with intractable migraine ([facility]) 06/28/2023 Pain in limb 06/28/2023 Chronic tension-type headache, not intractable 06/28/2023 Sleep disturbance 06/28/2023 Insomnia, unspecified 06/28/2023 Other problems related to lifestyle 06/28/2023 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 08/10/2023 Resolved Ambulatory Problems Diagnosis Date Noted No Resolved Ambulatory Problems Past Medical History: Diagnosis Date Adenoma of left breast ADHD (attention deficit hyperactivity disorder) ([facility]) Anemia Back pain Common migraine ([facility]) 08/17/2015 Depression ([facility]) H/O colonoscopy H/O umbilical hernia repair Insomnia 06/25/2017 Migraines ([facility]) Nausea with vomiting 08/17/2015 Tendonitis of right [...] pt to schedule US w/tbh. Pt desired [place] 21 advised pt to wait until 10 [...] An Duffy MA documented in this encounter [facility] 10-19-2023 Telephone encounter Note Pt needs a letter stating that she was seen in office on 10/17 Please Fax to [phone] [facility] 10-19-2023 Miscellaneous Notes Pt needs a letter stating that she was seen in office on 10/17 Please Fax to [phone] documented in this encounter [facility] 10-18-2023 History of Present illness Narrative [...] 2 puffs, Inhalation, Every 4 hours PRN cbbymtbjij-rwxiuyrbejvel-rnymqsdn [id number] MG tablet TAKE 1 TABLET BY [...] for further guidance. documented in this encounter [facility] 10-18-2023 History of Present illness Narrative Images from the original note were not included. Subjective Tiki Moeller is a 38 y.o. female. Patient was to be seen for botox injections but she just found out that she is . She was not planning but not preventing . 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 She has been receiving the Botox injections [...] during those pregnancies. 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 Objective Neurological Exam Physical Exam No chief complaint on file. Subjective Tiki Moeller, 38 y.o., female HPI Past Medical History: Diagnosis Date Adenoma of left breast removed 2013 ADHD (attention deficit hyperactivity disorder) ([facility]) Anemia Anxiety Asthma ([facility]) Back pain Common migraine ([facility]) 08/17/2015 Depression ([facility]) H/O colonoscopy 2012 H/O umbilical hernia repair 2007 Headache 08/17/2015 Inadequate sleep hygiene 04/23/2018 Insomnia 06/25/2017 Migraine ([facility]) 03/22/2017 Migraines ([facility]) Nausea with vomiting 08/17/2015 Pain in limb [...] Return to clinic: documented in this encounter [facility] 08-03-2021 Note FINDINGS: Sonographic evaluation targeted to the painful palpable areas within the right breast. Multiple subcentimeter benign simple cysts within the right upper quadrant. Mild periareolar ductal dilatation (3-4 mm diameter). No suspicious solid nodule or mass. IMPRESSION: BI RADS 2 : BENIGN FINDINGS Report reported and signed by Alexei Smith on 08/03/2021 [id number] [facility] [employer] 05-11-2021 Evaluation note Encounter Date Diagnosis Assessment Notes Apr, Encounter for immunization (ICD-10 - Z23) Patient presents for COVID-19 vaccination #2. Pre-screening form answers evaluated with patient. Patient denies current illness or allergic reaction to component of COVID-19 vaccine. Patient provided with current copy of EUA. [employer] Other Evaluation note* Diagnosis Attention deficit hyperactivity disorder (ADHD), combined type (CMS/HCC) Generalized anxiety disorder (CMS/HCC) Generalized anxiety disorder documented in this encounter [facility]* Diagnosis First trimester state, incidental documented in this encounter [facility]* Diagnosis 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)- Primary Generalized anxiety disorder (CMS/HCC) Generalized anxiety disorder Primary insomnia Persistent disorder of initiating or maintaining sleep , unspecified gestational age documented in this encounter [facility]* Diagnosis Generalized anxiety disorder (CMS/HCC)- Primary Generalized anxiety disorder documented in this encounter [facility] note* Diagnosis Well woman exam with routine gynecological exam Routine gynecological examination Second trimester state, incidental 18 weeks gestation of Vaginal discharge Leukorrhea, not specified as infective STD exposure Screening, , for anatomic survey Encounter for anatomic survey Gastroesophageal reflux in documented in this encounter [facility] HealthcareEvaluation note* Diagnosis 23 weeks gestation [...] third trimester documented in this encounter [facility]* Diagnosis Third trimester state, incidental 34 weeks gestation of size inconsistent with dates documented in this encounter [facility] Narrative - Reported* Type Description Date Medical History DEPRESSIVE DISORDER Medical History ASTHMA Medical History ANXIETY Medical History MIGRAINES Medical History BIPOLAR Medical History BACK PAIN Medical History ANEMIA Surgical History umbilical herniorrhaphy 2007 Surgical History colposcopy 2012 Surgical History adenoma removed from left breas t Surgical History tibial and fibular sesmoid 10-15 [employer] Other Summary Purpose Family History No Family History Records FoundNo Family History Records FoundNo Family History Records FoundNo Family History Records FoundNo Family History Records Found Advance Directives No Advanced Directives Records FoundNo Advanced Directives Records FoundNo Advanced Directives Records FoundNo Advanced Directives Records FoundNo Advanced Directives Records Found Additional Source Comments INFORMATION SOURCE (unrecogn ized section and content) DATE CREATED AUTHOR 05/25/2021 [facility] DATE CREATED AUTHOR AUTHOR'S ORGANIZ ATION 08/04/2021 [facility] DATE CREATED AUTHOR AUTHOR'S ORGANIZ ATION 11/23/2021 [facility] DATE CREATED AUTHOR AUTHOR'S ORGANIZ ATION 12/19/2022 [facility] DATE CREATED AUTHOR AUTHOR'S ORGANIZ ATION 05/01/2024 [facility] EPIC REASON FOR VISIT (unrecogniz ed section and content) Reason Comments Routine Visit Reason Comments Med Management Follow-up Reason Comments Well Women Visit Routine Visit STI Screening Reason Comments Nausea/Vomiting In Reason Comments Amenorrhea Reason Comments Migraine Care Teams (unrecognized sec tion and content) Track Rider Relationship Specialty Start Date End Date Ysabel Cabral MD [address] [facility] [place] [address] PCP - General Family Medicine 07/29/22 Ale Zaldivar MD [address] [facility] [place] [address] PCP - [facility] 05/28/23 Track Rider Relationship Specialty Start Date End Date Ysabel Cabral MD [address] [facility] [place] [address] PCP - General Family Medicine 07/29/22 Ale Zaldivar MD [address] [facility] [place] [address] PCP - [facility] 05/28/23 Track Rider Relationship Specialty Start Date End Date Ysabel Cabral MD [address] [facility] [place] [address] PCP - General Family Medicine 07/29/22 Ale Zaldivar MD [address] [facility] [place] [address] PCP - [facility] 05/28/23 Track Rider Relationship Specialty Start Date End Date Ysabel Cabral MD [address] [place] [address] PCP - General Family Medicine 07/29/22 Ale Zaldivar MD [address] [place] [address] PCP - [facility] 05/28/23 Track Rider Relationship Specialty Start Date End Date Ysabel Cabral MD [address] [place] [address] PCP - General Family [facility] 07/29/22 Ale Zaldivar MD [address] [place] [address] PCP - [facility] 05/28/23 Track Rider Relationship Specialty Start Date End Date Ysabel Cabral MD [address] [place] [address] PCP - General [facility] 07/29/22 Ale Zaldivar MD [address] [place] [address] PCP - [facility] 05/28/23 Track Rider Relationship Specialty Start Date End Date Ysabel Cabral MD [address] [place] [address] PCP - General Family Medicine 07/29/22 Chloe Carvajal NP [address] [place] [address] PCP - [facility] 11/27/23 Track Rider Relationship Specialty Start Date End Date Ysabel Cabral MD [address] [place] [address] PCP - General Family Medicine 07/29/22 Chloe Carvajal, MURAL ARTIST [address] [place] [address] PCP - [facility] 11/27/23 Track Rider Relationship Specialty Start Date End Date Ysabel Cabral MD [address] [place] [address] PCP - General Family Medicine 07/29/22 Chloe Carvajal, MURAL ARTIST [address] [facility] [place] [address] PCP - [facility] 11/27/23 Track Rider Relationship Specialty Start Date End Date Ysabel Cabral MD [address] [place] [address] PCP - General Family Medicine 07/29/22 Chloe Carvajal, MURAL ARTIST PCP - [facility] 11/27/23 Track Rider Relationship Specialty Start Date End Date Ysabel Cabral MD [address] [facility] [place] [address] PCP - General Family Medicine 07/29/22 Chloe Carvajal, MURAL ARTIST PCP - [facility] 11/27/23 Track Rider Relationship Specialty Start Date End Date Ysabel Cabral MD [address] [place] [address] PCP - General Family Medicine 07/29/22 Ale Zaldivar MD [address] [place] [address] PCP - [facility] 05/28/23 Track Rider Relationship Specialty Start Date End Date Ysabel Cabral MD [address] [place] [address] PCP - General Family Medicine 07/29/22 Ale Zaldivar MD [address] [place] [address] PCP - [facility] 05/28/23 Track Rider Relationship Specialty Start Date End Date Ysabel Cabral MD [address] [place] [address] PCP - General Family Medicine 07/29/22 Ale Zaldivar MD [address] [place] [address] PCP - [facility] 05/28/23 Track Rider Relationship Specialty Start Date End Date Ysabel Cabral MD [address] [place] [address] PCP - General Family Medicine 07/29/22 Chloe Carvajal NP PCP - [facility] 11/27/23 Track Rider Relationship Specialty Start Date End Date Ysabel Cabral MD [address] [place] [address] PCP - General Family Medicine 07/29/22 Ale Zaldivar MD [address] [place] [address] PCP - [facility] 05/28/23 Track Rider Relationship Specialty Start Date End Date Ysabel Cabral MD [address] [place] [address] PCP - General Family Medicine 07/29/22 Ale Zaldivar MD [address] [place] [address] PCP - [facility] 05/28/23 Track Rider Relationship Specialty Start Date End Date Ysabel Cabral MD [address] [place] [address] PCP - General Family Medicine 07/29/22 Chloe Carvajal, MURAL ARTIST PCP - [facility] 11/27/23 Track Rider Relationship Specialty Start Date End Date Ysabel Cabral MD [address] [place] [address] PCP - General Family Medicine 07/29/22 Chloe Carvajal, MURAL ARTIST PCP - [facility] 11/27/23 Track Rider Relationship Specialty Start Date End Date Ysabel Cabral MD [address] [place] [address] PCP - General Family Medicine 07/29/22 Chloe Carvajal, MURAL ARTIST PCP [facility] 11/27/23 Track Rider Relationship Specialty Start Date End Date Ysabel Cabral MD [address] [place] [address] PCP - General [facility] 07/29/22 Chloe Carvajal, MURAL ARTIST PCP - [facility] 11/27/23 Track Rider Relationship Specialty Start Date End Date Ysabel Cabral MD [address] [place] [address] [address] - [facility] 07/29/22 Chloe Carvajal, MURAL ARTIST PCP - [facility] 11/27/23 Teresa Ornelas, SALES AND LEASING CONSULTANT-CREDIT OPERATIONS SPECIALIST [address] [facility] [address] [place] [address] Nurse Practitioner Psychiatry 03/14/24 Track Rider Relationship Specialty Start Date End Date Ysabel Cabral MD [address] [place] [address] PCP - [facility] 07/29/22 Chloe Carvajal, MURAL ARTIST PCP - [facility] 11/27/23 Teresa Ornelas, SALES AND LEASING CONSULTANT-CREDIT OPERATIONS SPECIALIST [address] [facility] [address] [place] [address] Nurse Practitioner Psychiatry 03/14/24 Track Rider Relationship Specialty Start Date End Date Ysabel Cabral MD [address] [place] [address] PCP - [facility] 07/29/22 Chloe Carvajal, MURAL ARTIST PCP - [facility] 11/27/23 Teresa Ornelas, SALES AND LEASING CONSULTANT-CREDIT OPERATIONS SPECIALIST [address] [facility] [address] [place] [address] Nurse Practitioner Psychiatry 03/14/24 Track Rider Relationship Specialty Start Date End Date Ysabel Cabral MD [address] [facility] [place] [address] PCP - General Family Medicine 07/29/22 Ysabel Cabral MD [address] [facility] [place] [address] PCP - [facility] 02/27/24 Teresa Ornelas SALES AND LEASING CONSULTANT-CREDIT OPERATIONS SPECIALIST [address] [place] [address] Nurse Practitioner Psychiatry 03/14/24 Track Rider Relationship Specialty Start Date End Date Ysabel Cabral MD [address] [facility] [place] [address] PCP - General [facility] Medicine 07/29/22 Ysabel Cabral MD [address] [facility] [place] [address] PCP - [facility] 02/27/24 Teresa Ornelas SALES AND LEASING CONSULTANT-CREDIT OPERATIONS SPECIALIST [address] [place] [address] Nurse Practitioner Psychiatry 03/14/24 Track Rider Relationship Specialty Start Date End Date Ysabel Carbal MD [address] [facility] [place] [address] PCP - General Family Medicine 07/29/22 Ysabel Cabral MD [address] [place] [address] PCP - [facility] 02/27/24 Teresa Ornelas, SALES AND LEASING CONSULTANT-CREDIT OPERATIONS SPECIALIST [address] [place] [address] Nurse Practitioner Psychiatry 03/14/24 Track Rider Relationship Specialty Start Date End Date Ysabel Cabral MD [address] [facility] [place] [address] PCP - General Family Medicine 07/29/22 Ysabel Cabral MD [address] [facility] [place] [address] PCP - [facility] 02/27/24 Teresa Ornelas, SALES AND LEASING CONSULTANT-CREDIT OPERATIONS SPECIALIST [address] [address] Nurse Practitioner Psychiatry 03/14/24 Track Rider Relationship Specialty Start Date End Date Ysabel Cabral MD [address] [facility] [place] [address] PCP - General Family [facility] 07/29/22 Ysabel Cabral MD [address] [facility] [place] [address] PCP - [facility] 02/27/24 Teresa Ornelas, SALES AND LEASING CONSULTANT-CREDIT OPERATIONS SPECIALIST [address] [address] Nurse Practitioner Psychiatry 03/14/24 FOR RECORDS PERTAINING [...] BE BASED ON THE PRIMARY CLINICAL RECORDS. [facility] provides no warranty or guarantee of the accuracy or completeness of information in this document.
--- NOTE | 2024-05-06 19:51 | US_ITS ---
[facility] [place] [address] Patient Name: JESSICA MOELLER MRN: [id number] date: 1985 Sex: F Assigned Patient Location: [facility] Current Patient Location: Accession/Order Number: [id number] Exam Date: 05/07/2024 07:32 Report Date: 05/07/2024 07:35 At the request of: MARGO SARMIENTO Procedure: US OB BPP w non-stress BIOPHYSICAL PROFILE: CLINICAL INFORMATION: MULTIGRAVIDA OF AMA O09.523 COMPARISON: 04/29/2024 There is a single live intrauterine gestation in cephalic presentation. The reported gestational age is 35 weeks 3 days. The heart rate [id number] beats per minute. There is suggestion of a potential nuchal cord. FINDINGS: TONE: 1 or more episodes of activity extension and flexion of extremity or opening and closing of the hand [Y] 2/2 GROSS BODY MOVEMENTS: 3 or more discrete body or limb movements [Y] 2/2 BREATHING MOVEMENTS: 1 or more episodes of breathing lasting at least 30 seconds [Y] 2/2 JT: A single deepest vertical pocket of amniotic fluid greater than 2 cm [Y] 2/2 JT: 14.3 cm . This is in normal range. Total score: 8/8 US/US OB BPP w non-stress IMPRESSION: NORMAL BIOPHYSICAL PROFILE. POSSIBLE NUCHAL CORD. Impression dictated by: Shelli Mcghee M.D.05/07/2024 7:35 AM Dictation Location: [place] [address] Electronically authenticated by: [id number] Y Date: 05/07/2024 07:35
[2024-05-06 20:22] VITALS: BP 121/65; PULSE 105
== END 2024-05-06 20:48 | disposition home or self-care (01) ==
LOC: US 19:47 → FBC 19:49
PROVIDERS: PCP Family Medicine; Visit Provider Physician Assistant
DX: O09.523 Supervision of elderly multigravida, third trimester (principal); Z3A.35 35 weeks gestation of pregnancy
CPT/HCPCS: 76818

== ENCOUNTER 2024-05-09 16:30 | Outpatient (OUT) | payer OTHER, SELFPAY ==
--- OUTSIDE RECORDS SUMMARY | 2024-05-09 16:37 | XMS_ITS | CCD ---
Author Organization [facility] Care Team Providers Care Ciaio Counter Molder Name Role Phone Vicky Joe Unavailable WEST, DR SANON Admitting Unavailable KARASIK, DR SANON Attending Unavailable KARASIK, DR SANON Consulting Unavailable KARASIK, DR SANON Attending Unavailable KARASIK, DR SANON Consulting Unavailable KARASIK, DR SANON Admitting Unavailable CHLOE CARVAJAL Attending Unavailable CHLOE CARVAJAL Consulting Unavailable CHLOE CARVAJAL Admitting Unavailable Ysabel Cabral MD Primary Care Provider Ale Zaldivar MD Unavailable Dillon INCOME TAX EXPERT, Chloe R Unavailable Dillon INCOME TAX EXPERT, Chloe R Unavailable Jo Ann-Nosmahendra FABRICATING MACHINE OPERATOR-CELL TESTERTeresa Unavailable Ysabel Cabral MD Unavailable RAGHAVENDRA VASQUEZ Attending Unavailable TERESA ORNELAS Attending Unavailab [...] source) Aspirin Drug Allergy shortness of breath [employer] Other (20 sources) Diclofenac Drug Allergy 07-05-19 Unknown [employer] Other (20 sources) Ibuprofen Drug Allergy 07-05-19 Unknown [employer] Other (20 sources) Naproxen Drug Allergy 07-05-19 Unknown [employer] Other (20 sources) NSAIDs Drug allergy 07-05-19 Unknown [employer] Other (1 source) Aspirin Drug Allergy 02-26-18 90 [facility] (1 source) cyclobenzaprine Drug Allergy 01-10-20 15 [facility] (1 source) Diclofenac Drug Allergy 01-10-20 15 [facility] (1 source) Ibuprofen Drug Allergy 08-04-19 16 [facility] (1 source) NSAIDs Drug allergy (disorder) 01-02-20 14 [facility] (20 sources) Aluminum aspirin Drug Allergy 07-05-19 23 [facility] (20 sources) Amitriptyline Drug Allergy 03-22-19 18 [facility] (20 sources) cyclobenzaprine Drug Allergy 01-24-20 16 [facility] (20 sources) Lamotrigine Allergy to substance 07-05-19 23 [facility] (20 sources) meloxicam Drug Allergy 07-05-19 23 Unknown [facility] (20 sources) Sertraline Drug Allergy 01-01-20 24 [facility] Medications Current Medications Medication Drug Class(es) Dates [...] 20 tablet 1 09/24/2023 11/28/2023 Discontinued (Other) [id number] 200 actuat albuterol 0.09 mg/actuat metered dose [...] US OB BPP W NON-STRESS on 04-29-2024 [place] [address] Ultrasound Report Signed Patient: TIKI MOELLER MR#: [id number] : 1985 Acct:[id number] Age/Sex: 38 / F ADM Date: 04/29/24 Loc: [place] [address]: Veda Sarmiento Ordering Physician: Veda Sarmiento Date of Service: 04/29/24 Procedure(s): US OB BPP w non-stress Accession Number(s): [id number] cc: Vdea Sarmiento; YSABEL CABRAL [place] [id number] Patient Name: TIKI MOELLER MRN: [facility]:[id number] date: 1985 Sex: F Assigned Patient Location: [facility] Current Patient Location: [facility] Accession/Order Number: [id number] Exam Date: 04/29/2024 16:11 Report Date: 04/29/2024 16:12 At the request of: VEDA SARMIENTO Procedure: US OB BPP w non-stress Biophysical profile. Reason for exam: Advanced maternal age. COMPARISON: BPP 04/22/2024 TECHNIQUE: Transabdominal imaging of the gravid uterus was obtained. FINDINGS: Sandwich Hand reports the biophysical profile is 8 out of 8. JT is normal at 17.9 cm. heart rate 129bpm. US/US OB BPP w non-stress IMPRESSION: BPP 8 out of 8. Impression dictated by: Alexei Ibrahim Jr. DTiOTi04/29/2024 4:12 PM Dictation Location: [facility]-23 Electronically authenticated by: [id number] Y Date: 04/29/2024 16:12 Dictated By: Alexei Ibrahim M.D. Signed By: 04/29/241613 DD/ 11 TD/TT: Production Control Specialist: [facility] Radiology, Radiologist, - 04/29/2024 [place] [address] Ultrasound Report Signed Patient: TIKI MOELLER MR#: [id number] : 1985 Acct:[id number] Age/Sex: 38 / F ADM Date: 04/29/24 Loc: [place] [address]: Veda Sarmiento Ordering Physician: Veda Sarmiento Date of Service: 04/29/24 Procedure(s): US OB BPP w non-stress Accession Number(s): [id number] cc: Veda Sarmiento; YSABEL CABRAL [place] [address] Patient Name: TIKI MOELLER MRN: [facility]:[id number] date: 1985 Sex: F Assigned Patient Location: [facility] Current Patient Location: [facility] Accession/Order Number: [id number] Exam Date: 04/29/2024 16:11 Report Date: 04/29/2024 16:12 At the request of: VEDA SARMIENTO Procedure: US OB BPP w non-stress Biophysical profile. Reason for exam: Advanced maternal age. COMPARISON: BPP 04/22/2024 TECHNIQUE: Transabdominal imaging of the gravid uterus was obtained. FINDINGS: Sandwich Hand reports the biophysical profile is 8 out of 8. JT is normal at 17.9 cm. heart rate 129bpm. US/US OB BPP w non-stress IMPRESSION: BPP 8 out of 8. Impression dictated by: Alexei Ibrahim Jr., DTiOTi04/29/2024 4:12 PM Dictation Location: [facility]23 Electronically authenticated by: [id number] Y Date: 04/29/2024 16:12 Dictated By: Alexei Ibrahim M.D. Signed By: 04/29/241613 DD/ 11 TD/TT: Production Control Specialist: [facility] Radiology Study observation (narrative) [facility] US OB BPP W NON-STRESS Ordered By: Radiologist Radiology on 04-29-2024 [facility] Work Phone: Urinalysis macro (dipstick) panel (U)on 04-29-2024 Bilirubin, UA Negative Negative - 4(70) +++ mg/dL [facility] Blood, UA Negative Negative - 50 Armand/mcL [facility] Clarity, UA Clear [facility] Color, UA Yellow [facility] Glucose, UA Negative Negative - 2000(110) ++++ mg/dL [facility] Interpretation and review of laboratory results Abnormal [facility] Ketones, UA Negative Negative - 160(16) ++++ mg/dL [facility] Leukocytes, UA Trace Negative - 500+++ Doe/mcL [facility] Nitrite, UA Negative Negative - Positive [facility] pH, UA 7 5 - 9 [facility] Protein, UA Positive Negative - 2000(20) ++++ mg/dL [facility] Comment on above: 30mg/dL Spec Grav, UA 1.02 1 - 1.03 [facility] Urobilinogen, UA 1.0 0.2 - 12 mg/dL [facility] US OB BPP W NON-STRESS on 04-22-2024 [place] [id number] Ultrasound Report Signed Patient: TIKI MOELLER MR#: [id number] : 1985 Acct:[id number] Age/Sex: 38 / F ADM Date: 04/22/24 Loc: [place] Attending Dr: Veda Sarmiento Ordering Physician: Veda Sarmiento Date of Service: 04/22/24 Procedure(s): US OB BPP w non-stress Accession Number(s): [id number] cc: Veda Sarmiento; YSABEL CABRAL [place] [phone] Patient Name: TIKI MOELLER MRN: [id number] date: 1985 Sex: F Assigned Patient Location: [facility] Current Patient Location: Accession/Order Number: [id number] Exam Date: 04/22/2024 23:02 Report Date: 04/22/2024 23:05 At the request of: VEDA SARMIENTO Procedure: US OB BPP w non-stress Biophysical profile. Reason for exam: Advanced maternal age. COMPARISON: BPP 04/15/2024. TECHNIQUE: Transabdominal imaging of the gravid uterus was obtained. FINDINGS: Sandwich Hand reports the biophysical profile is 8 out of 8. JT is normal at 13.9 cm. heart rate 156 bpm. US/US OB BPP w non-stress IMPRESSION: BPP 8 out of 8. Impression dictated by: Alexei Ibrahim Jr., D.O.04/22/2024 11:05 PM Dictation Location: [place] [address] Electronically authenticated by: [id number] Y Date: 04/22/2024 23:05 Dictated By: Alexei Ibrahim M.D. Signed By: 04/22/242307 DD/ 04 TD/TT: Production Control Specialist: [facility] Radiology, Radiologist, MD - 04/22/2024 The [place] [id number] Ultrasound Report Signed Patient: TIKI MOELLER MR#: [id number] : 1985 Acct:[id number] Age/Sex: 38 / F ADM Date: 04/22/24 Loc: [place] Attending Dr: Veda Sarmiento Ordering Physician: Veda Sarmiento Date of Service: 04/22/24 Procedure(s): US OB BPP w non-stress Accession Number(s): [id number] cc: Veda Sarmiento; YSABEL CABRAL [address] [address] Patient Name: TIKI MOELLER MRN: [facility]:[id number] date: 1985 Sex: F Assigned Patient Location: [facility] Current Patient Location: Accession/Order Number: [id number] Exam Date: 04/22/2024 23:02 Report Date: 04/22/2024 23:05 At the request of: VEDA SARMIENTO Procedure: US OB BPP w non-stress Biophysical profile. Reason for exam: Advanced maternal age. COMPARISON: BPP 04/15/2024. TECHNIQUE: Transabdominal imaging of the gravid uterus was obtained. FINDINGS: Sandwich Hand reports the biophysical profile is 8 out of 8. JT is normal at 13.9 cm. heart rate 156 bpm. US/US OB BPP w non-stress IMPRESSION: BPP 8 out of 8. Impression dictated by: Alexei Ibrahim Jr., D.O.04/22/2024 11:05 PM Dictation Location: [place] [address] Electronically authenticated by: [id number] Y Date: 04/22/2024 23:05 Dictated By: Alexei Ibrahim M.D. Signed By: 04/22/242307 DD/ 04 TD/TT: Production Control Specialist: [facility] Radiology Study observation (narrative) [facility] US OB BPP W NON-STRESS Ordered By: Radiologist Radiology on 04-22-2024 [facility] Work Phone: US OB BPP W NON-STRESS on 04-15-2024 [place] [address] Ultrasound Report Signed Patient: TIKI MOELLER MR#: [id number] : 1985 Acct:[id number] Age/Sex: 38 / F ADM Date: 04/15/24 Loc: [place] [address]- Attending Dr: Raghavendra Vasquez D.O. Ordering Physician: Raghavendra Vasquez D.O. Date of Service: 04/15/24 Procedure(s): US OB BPP w non-stress Accession Number(s): [id number] cc: YSABEL CABARL ; Raghavendra Vasquez D.O. The [place] [id number] Patient Name: TIKI MOELLER MRN: [id number] date: 1985 Sex: F Assigned Patient Location: [facility] Current Patient Location: [facility] Accession/Order Number: [id number] Exam Date: 04/15/2024 16:26 Report Date: 04/15/2024 16:31 At the request of: RAGHAVENDRA VASQUEZ DO Procedure: US OB BPP w non-stress BIOPHYSICAL PROFILE: CLINICAL INFORMATION: Multigravida of advanced maternal age TECHNIQUE: Multiple ultrasonographic scans of the lower abdomen and pelvis were obtained. The fetus is in the cephalic presentation. The measurements are consistent with a 33 week 3 day gestation. The heart rate [id number] beats per minute. FINDINGS: TONE: 1 or [...] Shelli Mcghee M.D.04/15/2024 4:31 PM Dictation Location: [place] [address] Electronically authenticated by: [id number] Y Date: 04/15/2024 16:31 Dictated By: Shelli Mcghee M.D. Signed By: 04/15/24 1633 DD/ 1631 TD/TT: Production Control Specialist: [facility] Radiology, Radiologist, - 04/15/2024 [place] [address] Ultrasound Report Signed Patient: TIKI MOELLER MR#: [id number] : 1985 Acct:[id number] Age/Sex: 38 / F ADM Date: 04/15/24 Loc: [facility] 250-[address]: Raghavendra Vasquez D.O. Ordering Physician: Raghavendra Vasquez D.O. Date of Service: 04/15/24 Procedure(s): US OB BPP w non-stress Accession Number(s): [id number] cc: YSABEL CABRAL ; Raghavendra Vasquez D.O. The [place] [id number] Patient Name: TIKI MOELLER MRN: [facility]:[id number] date: 1985 Sex: F Assigned Patient Location: [facility] Current Patient Location: [facility] Accession/Order Number: [id number] Exam Date: 04/15/2024 16:26 Report Date: 04/15/2024 16:31 At the request of: RAGHAVENDRA VASQUEZ DO Procedure: US OB BPP w non-stress BIOPHYSICAL PROFILE: CLINICAL INFORMATION: Multigravida of advanced maternal age TECHNIQUE: Multiple ultrasonographic scans of the lower abdomen and pelvis were obtained. The fetus is in the cephalic presentation. The measurements are consistent with a 33 week 3 day gestation. The heart rate [id number] beats per minute. FINDINGS: TONE: 1 or [...] Shelli Mcghee M.D.04/15/2024 4:31 PM Dictation Location: [place] [address] Electronically authenticated by: [id number] Y Date: 04/15/2024 16:31 Dictated By: Shelli Mcghee M.D. Signed By: 04/15/24 163 DD/ 163 TD/TT: Production Control Specialist: [facility] Radiology Study observation (narrative) [facility] US OB BPP W NON-STRESS Ordered By: Radiologist Radiology on 04-15-2024 [facility] Work Phone: US OB GROWTHon 04-15-2024 [place] [address] Ultrasound Report Signed Patient: TIKI MOELLER MR#: [id number] : 1985 Acct:[id number] Age/Sex: 38 / F ADM Date: 04/15/24 Loc: [facility] 250-[address]: Raghavendra Vasquez D.O. Ordering Physician: Raghavendra Vasquez D.O. Date of Service: 04/15/24 Procedure(s): US OB growth Accession Number(s): [id number] cc: YSABEL CABRAL ; Raghavendra Vasquez D.O. [place] [address] Patient Name: TIKI MOELLER MRN: [id number] date: 1985 Sex: F Assigned Patient Location: [facility] Current Patient Location: [facility] Accession/Order Number: [id number] Exam Date: 04/15/2024 16:31 Report Date: 04/15/2024 [...] Shelli Mcghee M.D.04/15/2024 4:37 PM Dictation Location: [place] [address] Electronically authenticated by: [id number] Y Date: 04/15/2024 16:37 Dictated By: Shelli Mcghee M.D. Signed By: 04/15/24 1640 DD/ 1637 TD/TT: Production Control Specialist: [facility] Radiology, Radiologist, - 04/15/2024 [place] [address] Ultrasound Report Signed Patient: TIKI MOELLER MR#: [id number] : 1985 Acct:[id number] Age/Sex: 38 / F ADM Date: 04/15/24 Loc: [facility] 250-[address]: Raghavendra Vasquez D.O. Ordering Physician: Raghavendra Vasquez D.O. Date of Service: 04/15/24 Procedure(s): US OB growth Accession Number(s): [id number] cc: YSABEL CABRAL ; Raghavendra Vasquez D.O. [place] [address] Patient Name: TIKI MOELLER MRN: [facility]:[id number] date: 1985 Sex: F Assigned Patient Location: [facility] Current Patient Location: [facility] Accession/Order Number: [id number] Exam Date: 04/15/2024 16:31 Report Date: 04/15/2024 [...] Shelli Mcghee M.D.04/15/2024 4:37 PM Dictation Location: [place] [address] Electronically authenticated by: [id number] Y Date: 04/15/2024 16:37 Dictated By: Shelli Mcghee M.D. Signed By: 04/15/24 1640 DD/ 1637 TD/TT: Production Control Specialist: [facility] Radiology Study observation (narrative) [facility] US OB GROWTHOrdered By: Liang ologist Radiology on 04-15-2024 [facility] Work Phone: Urinalysis macro (dipstick) panel (U)on 04-08-2024 Bilirubin, UA Negative Negative - 4(70) +++ mg/dL [facility] Blood, UA Negative Negative - 50 Armand/mcL [facility] Clarity, UA Clear [facility] Color, UA Yellow [facility] Glucose, UA Negative Negative - 1999(110) ++++ mg/dL [facility] Interpretation and review of laboratory results Abnormal [facility] Ketones, UA Negative Negative - 160(16) ++++ mg/dL [facility] Leukocytes, UA Negative Negative - 500+++ Doe/mcL [facility] Nitrite, UA Negative Negative - Positive [facility] pH, UA 7 5 - 9 [facility] Protein, UA Trace Negative - 2000(20) ++++ mg/dL [facility] Spec Grav, UA 1.025 1 - 1.03 [facility] Urobilinogen, UA 1.0 0.2 - 12 mg/dL [facility] US OB GROWTHon 03-25-2024 [place] [address] Ultrasound Report Signed Patient: TIKI MOELLER MR#: [id number] : 1985 Acct:[id number] Age/Sex: 38 / F ADM Date: 03/25/24 Loc: US Attending Dr: Raghavendra Vasquez D.O. Ordering Physician: Raghavendra Vasquez D.O. Date of Service: 03/25/24 Procedure(s): US OB growth Accession Number(s): [id number] cc: YSABEL CABRAL ; Raghavendra Vasquez D.O. [place] [id number] Patient Name: TIKI MOELLER MRN: [facility]:[id number] date: 1985 Sex: F Assigned Patient Location: US Current Patient Location: [place] Accession/Order Number: [id number] Exam Date: 03/25/2024 11:02 Report Date: 03/25/2024 [...] Signed By: 03/25/24 1150 DD/ 1147 TD/TT: Production Control Specialist: [facility] Radiology, Radiologist, - 03/25/2024 [place] [address] Ultrasound Report Signed Patient: TIKI MOELLER MR#: [id number] : 1985 Acct:[id number] Age/Sex: 38 / F ADM Date: 03/25/24 Loc: US Attending Dr: Raghavendra Vasquez D.O. Ordering Physician: Raghavendra Vasquez D.O. Date of Service: 03/25/24 Procedure(s): US OB growth Accession Number(s): [id number] cc: YSABEL CABRAL ; Raghavendra Vasquez D.O. [place] [address] Patient Name: TIKI MOELLER MRN: [id number] date: 1985 Sex: F Assigned Patient Location: US Current Patient Location: US Accession/Order Number: [id number] Exam Date: 03/25/2024 11:02 Report Date: 03/25/2024 [...] Signed By: 03/25/24 1150 DD/ 1147 TD/TT: Production Control Specialist: [facility] Radiology Study observation (narrative) [facility] US OB GROWTHOrdered By: Liang ologist Radiology on 03-25-2024 [facility] Work Phone: Urinalysis macro (dipstick) panel (U)on 03-25-2024 Bilirubin, UA Positive Negative - 4(70) +++ mg/dL [facility] Blood, UA Negative Negative - 50 Armand/mcL [facility] Clarity, UA Clear [facility] Color, UA Yellow [facility] Glucose, UA Negative Negative - 1999(110) ++++ mg/dL [facility] Interpretation and review of laboratory results Abnormal [facility] Ketones, UA Positive Negative - 160(16) ++++ mg/dL [facility] Leukocytes, UA Negative Negative - 500+++ Doe/mcL [facility] Nitrite, UA Positive Negative - Positive [facility] pH, UA 6.5 5 - 9 [facility] Protein, UA Positive Negative - 1999(20) ++++ mg/dL [facility] Spec Grav, UA 1.025 1 - 1.03 [facility] Urobilinogen, UA 1.0 0.2 - 12 mg/dL [facility] Urinalysis macro (dipstick) panel (U)on 03-11-2024 Bilirubin, UA Negative Negative - 4(70) +++ mg/dL [facility] Blood, UA Negative Negative - 50 Armand/mcL [facility] Clarity, UA Clear [facility] Color, UA Yellow [facility] Glucose, UA Negative Negative - 1999(110) ++++ mg/dL [facility] Interpretation and review of laboratory results Abnormal [facility] Ketones, UA Negative Negative - 160(16) ++++ mg/dL [facility] Leukocytes, UA Negative Negative - 500+++ Doe/mcL [facility] Nitrite, UA Negative Negative - Positive [facility] pH, UA 7 5 - 9 [facility] Protein, UA Positive Negative - 1999(20) ++++ mg/dL [facility] Comment on above: 30 Spec Grav, UA 1.025 1 - 1.03 [facility] Urobilinogen, UA 0.2 0.2 - 12 mg/dL [facility] ALL CBC WITH AUTO DIFFon BASOPHILS ABSOLUTE AUTO 0 [facility] Basophils/100 WBC (Bld) 0.2 % 0.2 - 2.0 % [facility] Eosinophils/100 WBC (Bld) 0.6 % Low 0.9 - 7.0 % [facility] Erythrocyte distribution width (RBC) [Ratio] 13 % 11.0 - 15.0 % [facility] Hematocrit (Bld) [Volume fraction] 32.2 % Low 36.0 - 48.0 % [facility] Hemoglobin (Bld) [Mass/Vol] 10.3 g/dL Low 12.0 - 16.0 g/dL [facility] IMMATURE GRANULOCYTES ABS AUTO 0.06 High [facility] Immature granulocytes/100 WBC (Bld) 0.6 % High 0.0 - 0.5 % [facility] Interpretation and review of laboratory results Abnormal [facility] LYMPHOCYTES ABSOLUTE AUTO 1.8 [facility] Lymphocytes/100 WBC (Bld) 19.1 % Low 20.5 - 60.0 % [facility] MCH (RBC) [Entitic mass] 25.9 pg Low 26.7 - 34.0 pg [facility] MCHC (RBC) [Mass/Vol] 32 g/dL 29.9 - 35.2 g/dL [facility] MCV (RBC) [Entitic vol] 81.1 fL 81.0 - 99.0 fL [facility] MONOCYTES ABSOLUTE AUTO 0.5 [facility] Monocytes/100 WBC (Bld) 5.5 % 1.7 - 12.0 % [facility] NEUTROPHILS ABSOLUTE AUTO 7 High [facility] Neutrophils/100 WBC (Bld) 74 % 43.0 - 75.0 % [facility] Platelet mean volume (Bld) [Entitic vol] 10.7 fL 9.5 - 13.5 fL [facility] EO # 0.1 [facility] PLT 238 [facility] RBC 3.97 Low [facility] WBC 9.4 [facility] UA (CLEAN/CATCH) CELL TESTER/LA RO IF IND.on 03-07-2024 BILIRUBIN URINE Negative NEGATIVE [facility] BLOOD URINE Negative NEGATIVE [facility] Clarity (U) CLEAR CLEAR [facility] Color (U) YELLOW YELLOW [facility] GLUCOSE URINE UA Negative NEGATIVE mg/dL [facility] Interpretation and review of laboratory results Abnormal [facility] Ketones Ql (U) TRACE Abnormal NEGATIVE mg/dL [facility] Leukocyte esterase Test strip Ql (U) Negative NEGATIVE [facility] NITRITE URINE Negative NEGATIVE [facility] pH (U) 7.5 [pH] 5.0 - 9.0 [facility] PROTEIN URINE TRACE NEG/TRACE mg/dL [facility] SPECIFIC GRAVITY URINE 1.025 1.005 - 1.025 [facility] URINE MICROSCOPIC INDICATED NO [facility] UROBILINOGEN URINE 1.0 EU/dL 0.2 - 1.0 EU/dL [facility] Urinalysis macro (dipstick) panel (U)on 02-11-2024 Bilirubin, UA Negative Negative - 4(70) +++ mg/dL [facility] Blood, UA Negative Negative - 50 Armand/mcL [facility] Clarity, UA Clear [facility] Color, UA Yellow [facility] Glucose, UA Negative Negative - 1999(110) ++++ mg/dL [facility] Interpretation and review of laboratory results Abnormal [facility] Ketones, UA Negative Negative - 160(16) ++++ mg/dL [facility] Leukocytes, UA Negative Negative - 500+++ Doe/mcL [facility] Nitrite, UA Negative Negative - Positive [facility] pH, UA 7.5 5 - 9 [facility] Protein, UA Trace Negative - 1999(20) ++++ mg/dL [facility] Spec Grav, UA 1.015 1 - 1.03 [facility] Urobilinogen, UA 0.2 0.2 - 12 mg/dL [facility] IGP,APTIMA HPV,AGE GDLNon AGE GDLN ACOG TESTING Note . [facility] Comment on above: TESTS RESULT FLAG UN ITS REF RANGE LAB Clinician Provided Cytology Information Source.............Cervix Other.............. No. of containers..01 ThinPrep Vial Age Algo ACOG Beverly... FLAG LEGEND: L-Low Normal,H-High Normal,LL-Alert Low,HH-Alert High <-Panic Low,>-Panic High,A-Abnormal,AA-Critical Abnormal Performed at: 01 =[address] [address] Judith Ventura MD, HPV APTIMA Negative Negative [facility] Comment on above: This nucleic acid am plification test detects fourteen high- risk HPV types (16,18,31,33,35,39,45,51,52,56,58,59,66,68) without differentiation. Performed at: =[address] [id number] Body Joiner: Judith Ventura MD, Phone: [phone] Performed at: [address] [id number] Body Joiner: Judith Ventura MD, Phone: [phone] IGP, APTIMA HPV, RFX 16/18,45 Note . [facility] Comment on above: TESTS RESULT FLAG UN ITS REF RANGE LAB DIAGNOSIS: 02 NEGATIVE FOR INTRAEPITHELIAL LESION OR MALIGNANCY. Specimen adequacy: 02 Satisfactory for evaluation. Endocervical and/or squamous metaplastic cells (endocervical component) are present. Performed by: Kae Frank, [employer] (ASCP) . 02 Note: Note 02 The [...] <-Panic Low,>-Panic High,A-Abnormal,AA-Critical Abnormal Performed at: [address] [address] Judith Ventura MD, [facility] RECURRENT VAGINITIS (HTRX)on 01-11-2024 ATOPOBIUM VAGINAE 0 [facility] ATOPOBIUM VAGINAE Not detected [facility] BVAB 2,3 (BACTERIAL VAGINOSIS ASSOCIATED BACTERIA 2, 3); MOBILUNCUS SPP 0 [facility] BVAB 2,3 (BACTERIAL VAGINOSIS ASSOCIATED BACTERIA 2, 3); MOBILUNCUS SPP Not detected [facility] LOC ALBICANS, PARAPSILOSIS, TROPICALIS 0 [facility] LOC ALBICANS, PARAPSILOSIS, TROPICALIS Not detected [facility] LOC GLABRATA 0 [facility] LOC GLABRATA Not detected [facility] LOC KRUSEI 0 [facility] LOC KRUSEI Not detected [facility] CHLAMYDIA TRACHOMATIS 0 [facility] CHLAMYDIA TRACHOMATIS Not detected [facility] GARDNERELLA VAGINALIS 0 [facility] GARDNERELLA VAGINALIS Not detected [facility] MEGASPHAERA (TYPES 1, 2) 0 [facility] MEGASPHAERA (TYPES 1, 2) Not detected [facility] MYCOPLASMA GENITALIUM 0 [facility] MYCOPLASMA GENITALIUM Not detected [facility] NEISSERIA GONORRHOEAE 0 [facility] NEISSERIA GONORRHOEAE Not detected [facility] TRICHOMONAS VAGINALIS 0 [facility] TRICHOMONAS VAGINALIS Not detected [facility] Urinalysis macro (dipstick) panel (U)on 01-10-2024 Bilirubin, UA Negative Negative - 4(70) +++ mg/dL [facility] Blood, UA Negative Negative - 50 Armand/mcL [facility] Clarity, UA Clear [facility] Color, UA Yellow [facility] Glucose, UA Negative Negative - 1999(110) ++++ mg/dL [facility] Interpretation and review of laboratory results Abnormal [facility] Ketones, UA Positive Negative - 160(16) ++++ mg/dL [facility] Leukocytes, UA Negative Negative - 500+++ Doe/mcL [facility] Nitrite, UA Negative Negative - Positive [facility] pH, UA 7 5 - 9 [facility] Protein, UA Negative Negative - 2000(20) ++++ mg/dL [facility] Spec Grav, UA 1.015 1 - 1.03 [facility] Urobilinogen, UA 1.0 0.2 - 12 mg/dL [facility] ALL CBC WITH AUTO DIFFon BASOPHILS ABSOLUTE AUTO 0.0 [facility] Basophils/100 WBC (Bld) 0.2 % 0.2 - 2.0 % [facility] Eosinophils/100 WBC (Bld) 2.3 % 0.9 - 7.0 % [facility] Erythrocyte distribution width (RBC) [Ratio] 12.3 % 11.0 - 15.0 % [facility] Hematocrit (Bld) [Volume fraction] 37.1 % 36.0 - 48.0 % [facility] Hemoglobin (Bld) [Mass/Vol] 12.3 g/dL 12.0 - 16.0 g/dL [facility] IMMATURE GRANULOCYTES ABS AUTO 0.04 High [facility] Immature granulocytes/100 WBC (Bld) 0.4 % 0.0 - 0.5 % [facility] Interpretation and review of laboratory results Abnormal [facility] LYMPHOCYTES ABSOLUTE AUTO 2.7 [facility] Lymphocytes/100 WBC (Bld) 28.4 % 20.5 - 60.0 % [facility] MCH (RBC) [Entitic mass] 28.0 pg 26.7 - 34.0 pg [facility] MCHC (RBC) [Mass/Vol] 33.2 g/dL 29.9 - 35.2 g/dL [facility] MCV (RBC) [Entitic vol] 84.3 fL 81.0 - 99.0 fL [facility] MONOCYTES ABSOLUTE AUTO 0.5 [facility] Monocytes/100 WBC (Bld) 5.0 % 1.7 - 12.0 % [facility] NEUTROPHILS ABSOLUTE AUTO 6.0 [facility] Neutrophils/100 WBC (Bld) 63.7 % 43.0 - 75.0 % [facility] Platelet mean volume (Bld) [Entitic vol] 10.4 fL 9.5 - 13.5 fL [facility] TBH EO # 0.2 [facility] TB PLT 253 [facility] RBC 4.40 [facility] WBC 9.4 [facility] Urinalysis macro (dipstick) panel (U)on 11-28-2023 Bilirubin, UA Negative Negative - 4(70) +++ mg/dL [facility] Blood, UA Negative Negative - 50 Armand/mcL [facility] Clarity, UA Clear [facility] Color, UA Yellow [facility] Glucose, UA Negative Negative - 1999(110) ++++ mg/dL [facility] Interpretation and review of laboratory results Normal [facility] Ketones, UA Negative Negative - 160(16) ++++ mg/dL [facility] Leukocytes, UA Negative Negative - 500+++ Doe/mcL [facility] Nitrite, UA Negative Negative - Positive [facility] pH, UA 7.0 5 - 9 [facility] Protein, UA Negative Negative - 2000(20) ++++ mg/dL [facility] Spec Grav, UA 1.025 1 - 1.03 [facility] Urobilinogen, UA 1.0 0.2 - 12 mg/dL [facility] URINE CULTURE, ROUTINEon Bacteria identified Cx Nom (U) Urine Culture, Routine [facility] Bacteria identified Cx Nom (U) Culture shows less than 10,000 colony forming units of bacteria per [facility] Bacteria identified Cx Nom (U) milliliter of urine. This colony count is not generally considered [facility] Bacteria identified Cx Nom (U) to be clinically significant. [facility] Bacteria identified Cx Nom (U) Performed at: [facility] Bacteria identified Cx Nom (U) [address] [place], [place] [id number] [facility] Bacteria identified Cx Nom (U) Body Joiner: Michael Berry PhD, Phone: [phone] [facility] HCG ( test) Ql (U)o n 11-01-2023 Interpretation and review of laboratory results Abnormal [facility] Preg Test, Ur Positive [facility] Urinalysis macro (dipstick) panel (U)on 11-01-2023 Bilirubin, UA Negative Negative - 4(70) +++ mg/dL [facility] Blood, UA Negative Negative - 50 Armand/mcL [facility] Clarity, UA Clear [facility] Color, UA Yellow [facility] Glucose, UA Negative Negative - 1999(110) ++++ mg/dL [facility] Interpretation and review of laboratory results Normal [facility] Ketones, UA Negative Negative - 160(16) ++++ mg/dL [facility] Leukocytes, UA Negative Negative - 500+++ Doe/mcL [facility] Nitrite, UA Negative Negative - Positive [facility] pH, UA 6.0 5 - 9 [facility] Protein, UA Negative Negative - 1999(20) ++++ mg/dL [facility] Spec Grav, UA 1.020 1 - 1.03 [facility] Urobilinogen, UA 0.2 0.2 - 12 mg/dL [facility] XR CERVICAL SPINE AP/LAT/FLE X/EXT/OBLIQUESon 08-16-2023 XR [...] [Mass/Vol] 8.9 mg/dL Normal (8.6 - 10.6) [facility] Comment on above: Performed By: #### C BC/2A, ESRCRP, CCP, HBC-M, HBSAG, HCV, CA, MG, RHF, URCA #### [facility] [address] [facility], [id number] CBC, ALB, ALT, AST, ALK AND CREAon 12-18-2022 Albumin [Mass/Vol] 5.0 g/dL Normal (3.5 - 5.0) [facility] Comment on above: Order Comment: FACIL ITY: [facility] [id number] Performed By: #### C BC/2A, ESRCRP, CCP, HBC-M, HBSAG, HCV, CA, MG, RHF, URCA #### [facility] [address] [facility], [id number] ALK PHOS 60 U/L Normal (38 - 126) [facility] Comment on above: Order Comment: FACIL ITY: [facility] [id number] Performed By: #### C BC/2A, ESRCRP, CCP, HBC-M, HBSAG, HCV, CA, MG, RHF, URCA #### [facility] [address] [facility], [id number] ALT [Catalytic activity/Vol] 34 U/L Normal (1 - 35) [facility] Comment on above: Order Comment: FACIL ITY: [facility] [id number] Performed By: #### C BC/2A, ESRCRP, CCP, HBC-M, HBSAG, HCV, CA, MG, RHF, URCA #### [facility] [address] [facility], [id number] AST [Catalytic activity/Vol] 34 U/L Normal (15 - 46) [facility] Comment on above: Order Comment: FACIL ITY: [facility] [id number] Performed By: #### C BC/2A, ESRCRP, CCP, HBC-M, HBSAG, HCV, CA, MG, RHF, URCA #### [facility] [address] [facility], [address] Creatinine [Mass/Vol] 0.61 mg/dL Normal (0.52 - 1.04) [facility] Comment on above: Order Comment: FACIL ITY: [facility] [id number] Performed By: #### C BC/2A, ESRCRP, CCP, HBC-M, HBSAG, HCV, CA, MG, RHF, URCA #### [facility] [address] [facility], [id number] GFR- AMER 135.1 ML/M1.7 Normal (60.0 - 140.1) [facility] Comment on above: Order Comment: FACIL ITY: [facility] [id number] Performed By: #### C BC/2A, ESRCRP, CCP, HBC-M, HBSAG, HCV, CA, MG, RHF, URCA #### [facility] [address] [facility], [id number] GFR-NON AFRIC-AMER 111.6 ML/M1.7 Normal (60.0 - 115.8) [facility] Comment on above: Order Comment: FACIL ITY: [facility] [id number] Performed By: #### C BC/2A, ESRCRP, CCP, HBC-M, HBSAG, HCV, CA, MG, RHF, URCA #### [facility] [address] [facility], [address] Hematocrit (Bld) [Volume fraction] 41.5 % Normal (37.0 - 47.0) [facility] Comment on above: Order Comment: FACIL ITY: [facility] [id number] Performed By: #### C BC/2A, ESRCRP, CCP, HBC-M, HBSAG, HCV, CA, MG, RHF, URCA #### [facility] [address] [facility], [phone] Hemoglobin (Bld) [Mass/Vol] 13.5 g/dL Normal (12.0 - 16.0) [facility] Comment on above: Order Comment: FACIL ITY: [facility] [id number] Performed By: #### C BC/2A, ESRCRP, CCP, HBC-M, HBSAG, HCV, CA, MG, RHF, URCA #### [facility] [address] [facility], [address] MCH (RBC) [Entitic mass] 28.7 pg Normal (27.0 - 33.0) [facility] Comment on above: Order Comment: FACIL ITY: [facility] [id number] Performed By: #### C BC/2A, ESRCRP, CCP, HBC-M, HBSAG, HCV, CA, MG, RHF, URCA #### [facility] [address] [facility], [address] MCHC (RBC) [Mass/Vol] 32.5 g/dL Normal (30.0 - 37.0) [facility] Comment on above: Order Comment: FACIL ITY: [facility] [id number] Performed By: #### C BC/2A, ESRCRP, CCP, HBC-M, HBSAG, HCV, CA, MG, RHF, URCA #### [facility] [address] [facility], [address] MCV (RBC) [Entitic vol] 88.1 fL Normal (81.0 - 99.0) [facility] Comment on above: Order Comment: FACIL ITY: [facility] [id number] Performed By: #### C BC/2A, ESRCRP, CCP, HBC-M, HBSAG, HCV, CA, MG, RHF, URCA #### [facility] [address] [facility], [address] PLT 282 x10^3ul Normal (130 - 400) [facility] Comment on above: Order Comment: FACIL ITY: [facility] [id number] Performed By: #### C BC/2A, ESRCRP, CCP, HBC-M, HBSAG, HCV, CA, MG, RHF, URCA #### [facility] [address] [facility], [address] RBC 4.71 x10^6ul Normal (4.20 - 5.40) [facility] Comment on above: Order Comment: FACIL ITY: [facility] [id number] Performed By: #### C BC/2A, ESRCRP, CCP, HBC-M, HBSAG, HCV, CA, MG, RHF, URCA #### [facility] [address] [facility], [address] WBC 6.47 x10^3ul Normal (3.80 - 10.60) [facility] Comment on above: Order Comment: FACIL ITY: [facility] [id number] Performed By: #### C BC/2A, ESRCRP, CCP, HBC-M, HBSAG, HCV, CA, MG, RHF, URCA #### [facility] [address] [facility], [address] HEP B CORE AB, IGMon 023 HEPATITIS B CORE ANTIBODY, IGM Negative Normal (NEG - NEG) [facility] Comment on above: Performed By: #### C BC/2A, ESRCRP, CCP, HBC-M, HBSAG, HCV, CA, MG, RHF, URCA #### [facility] [address] [facility], [address] HEP B HERACLIO AGon 12-18-2022 HEP B HERACLIO AG Negative Normal (NEG - NEG) [facility] Comment on above: Performed By: #### C BC/2A, ESRCRP, CCP, HBC-M, HBSAG, HCV, CA, MG, RHF, URCA #### [facility] [address] [facility], [address] HEP C ANTIBODYon 12-18-2022 HEPATITIS C ANTIBODY Negative Normal (NEG - NEG) [facility] Comment on above: Performed By: #### C BC/2A, ESRCRP, CCP, HBC-M, HBSAG, HCV, CA, MG, RHF, URCA #### [facility] [address] [facility], [address] MAGNESIUMon 12-18-2022 Magnesium [Mass/Vol] 2.0 mg/dL Normal (1.6 - 2.3) [facility] Comment on above: Performed By: #### C BC/2A, ESRCRP, CCP, HBC-M, HBSAG, HCV, CA, MG, RHF, URCA #### [facility] [address] [facility], [address] RF FACTORon 12-18-2022 RF FACTOR <9 Normal (0 - 12) [facility] Comment on above: Result Comment: RF F ACTOR = LESS THAN 9 IU/ML RF FACTOR MIN. DETECTION = 9 IU/ML. Performed By: #### C BC/2A, ESRCRP, CCP, HBC-M, HBSAG, HCV, CA, MG, RHF, URCA #### [facility] [address] [facility], [address] SED RATE - CRPon 12-18-2022 CRP EXTENDED RANGE 1.40 MG/L Normal (0.00 - 3.20) [facility] Comment on above: Performed By: #### C BC/2A, ESRCRP, CCP, HBC-M, HBSAG, HCV, CA, MG, RHF, URCA #### [facility] [address] [facility], [address] SED RATE WEST. 5 MM/HR Normal (0 - 25) [facility] Comment on above: Performed By: #### C BC/2A, ESRCRP, CCP, HBC-M, HBSAG, HCV, CA, MG, RHF, URCA #### [facility] [address] [facility], [address] URIC ACIDon 12-18-2022 Urate [Mass/Vol] 4.2 mg/dL Normal (2.5 - 6.2) [facility] Comment on above: Performed By: #### C BC/2A, ESRCRP, CCP, HBC-M, HBSAG, HCV, CA, MG, RHF, URCA #### [facility] [address] [facility], [address] PAP ACOG PANEL 2: 30 to 65on 11-16-2021 . . Normal [facility] Comment on above: Result Comment: Perf ormed at: WB Performed By: #### 4 [id number] #### [facility] [address] [address] [address] Sierra Almonte Age Gdln ACOG Testing 30-65 Normal [facility] Comment on above: Performed By: #### 4 [id number] #### [facility] [address] [place] [address] Dr. Sierra Almonte DIAGNOSIS: Comment Normal [facility] Comment on above: Result Comment: NEGA TIVE FOR INTRAEPITHELIAL LESION OR MALIGNANCY. Performed at: WB Performed By: #### 4 [id number] #### [facility] [address] [address] [address] Sierra Almonte HPV Aptima Negative Normal Negative [facility] Comment on above: Result Comment: This nucleic acid amplification test detects fourteen high-risk HPV types (16,18,31,33,35,39,45,51,52,56,58,59,66,68) without differentiation. Performed at: =G Performed By: #### 4 [id number] #### [facility] [address] [place] [address] Dr. Sierra Almonte Methodology: Comment Normal [facility] Comment on above: Result Comment: This liquid based ThinPrep(R) pap test was screened with the use of an image guided system. Performed at: WB Performed By: #### 4 [id number] #### [facility] [address] [place] [address] Dr. Sierra Almonte Note: Comment Normal [facility] Comment on above: Result Comment: The Pap smear is a screening test designed to aid in the detection of premalignant and malignant conditions of the uterine cervix. It is not a diagnostic procedure and should not be used as the sole means of detecting cervical cancer. Both false-positive and false-negative reports do occur. . Performed at: WB Performed By: #### 4 [id number] #### [facility] [address] [place] [address] Dr. Sierra Almonte Performed by: Comment Normal [facility] Comment on above: Result Comment: Alison Nava, [employer] (ASCP) Performed at: WB Performed By: #### 4 [id number] #### [facility] [address] [place], [place] [address] Dr. Sierra Almonte Specimen adequacy: Comment Normal [facility] Comment on above: Result Comment: Sati sfactory for evaluation. Endocervical and/or squamous metaplastic cells (endocervical component) are present. Performed at: WB Performed By: #### 4 [id number] #### [facility] [address] [address] [address] Sierra Almonte Thyroidon 07-14-2021 US Thyroid [...] by Alexei Smith on 07/14/2021 1000 Normal [facility] Complete Blood Count with Au to Diffon 07-12-2021 Basophils (Bld) [#/Vol] 0.02 10*3/uL Normal 0.00-0.20 [facility] Comment on above: Performed By: #### C BCAD, RF, VITD, ESR, TSH reflex FT4, CMP, FT4 #### [facility] [address], [place] [id number] Basophils/100 WBC (Bld) 0.3 % Normal [facility] Comment on above: Performed By: #### C BCAD, RF, VITD, ESR, TSH reflex FT4, CMP, FT4 #### [facility] [address], [place] [id number] Eosinophils (Bld) [#/Vol] 0.08 10*3/uL Normal 0.02-0.50 [facility] Comment on above: Performed By: #### C BCAD, RF, VITD, ESR, TSH reflex FT4, CMP, FT4 #### [facility] [address], [place] [id number] Eosinophils/100 WBC (Bld) 1.2 % Normal [facility] Comment on above: Performed By: #### C BCAD, RF, VITD, ESR, TSH reflex FT4, CMP, FT4 #### [facility] [address], [place] [id number] Erythrocyte distribution width (RBC) [Ratio] 13.8 % Normal 11.0-15.0 [facility] [employer] Comment on above: Performed By: #### C BCAD, RF, VITD, ESR, TSH reflex FT4, CMP, FT4 #### [facility] [address], [place] [id number] Hematocrit (Bld) [Volume fraction] 39.6 % Normal 35.0-47.0 [facility] Comment on above: Performed By: #### C BCAD, RF, VITD, ESR, TSH reflex FT4, CMP, FT4 #### [facility] [address], [place] [id number] Hemoglobin (Bld) [Mass/Vol] 12.9 g/dL Normal 11.6-15.5 [facility] Comment on above: Performed By: #### C BCAD, RF, VITD, ESR, TSH reflex FT4, CMP, FT4 #### [facility] [address], [place] [id number] Lymphocytes (Bld) [#/Vol] 1.3 10*3/uL Normal 0.9-3.9 [facility] Comment on above: Performed By: #### C BCAD, RF, VITD, ESR, TSH reflex FT4, CMP, FT4 #### [facility] [address], [place] [id number] Lymphocytes/100 WBC (Bld) 20.3 % Normal [facility] Comment on above: Performed By: #### C BCAD, RF, VITD, ESR, TSH reflex FT4, CMP, FT4 #### [facility] [address], [place] [id number] MCH (RBC) [Entitic mass] 28.3 pg Normal 27.0-33.0 [facility] Comment on above: Performed By: #### C BCAD, RF, VITD, ESR, TSH reflex FT4, CMP, FT4 #### [facility] [address], [place] [id number] MCHC (RBC) [Mass/Vol] 32.6 g/dL Normal 32.0-36.0 [facility] Comment on above: Performed By: #### C BCAD, RF, VITD, ESR, TSH reflex FT4, CMP, FT4 #### [facility] [address], [place] [id number] MCV (RBC) [Entitic vol] 87 fL Normal 80-100 [facility] Comment on above: Performed By: #### C BCAD, RF, VITD, ESR, TSH reflex FT4, CMP, FT4 #### [facility] [address], [place] [id number] Monocytes (Bld) [#/Vol] 0.4 10*3/uL Normal 0.2-0.9 [facility] Comment on above: Performed By: #### C BCAD, RF, VITD, ESR, TSH reflex FT4, CMP, FT4 #### [facility] [address], [place] [id number] Monocytes/100 WBC (Bld) 5.8 % Normal [facility] Comment on above: Performed By: #### C BCAD, RF, VITD, ESR, TSH reflex FT4, CMP, FT4 #### [facility] [address], [place] [id number] Neutrophils (Bld) [#/Vol] 4.7 10*3/uL Normal 1.5-7.8 [facility] Comment on above: Performed By: #### C BCAD, RF, VITD, ESR, TSH reflex FT4, CMP, FT4 #### [facility] [address], [place] [id number] Neutrophils/100 WBC (Bld) 72.1 % Normal [facility] Comment on above: Performed By: #### C BCAD, RF, VITD, ESR, TSH reflex FT4, CMP, FT4 #### [facility] [address], [place] [id number] Platelet mean volume (Bld) [Entitic vol] 11.00 fL Normal 7.50-12.50 [facility] Comment on above: Performed By: #### C BCAD, RF, VITD, ESR, TSH reflex FT4, CMP, FT4 #### [facility] [address], [place] [id number] Platelets (Bld) [#/Vol] 271 10*3/uL Normal 140-400 [facility] Comment on above: Performed By: #### C BCAD, RF, VITD, ESR, TSH reflex FT4, CMP, FT4 #### [facility] [address], [place] [id number] RBC (Bld) [#/Vol] 4.56 10*6/uL Normal 3.90-5.20 [facility] Specialist Comment on above: Performed By: #### C BCAD, RF, VITD, ESR, TSH reflex FT4, CMP, FT4 #### [facility] [address], [place] [id number] RDW-SD 43.5 fL Normal 37.0-50.0 [facility] Comment on above: Performed By: #### C BCAD, RF, VITD, ESR, TSH reflex FT4, CMP, FT4 #### [facility] [address], [place] [id number] WBC (Bld) [#/Vol] 6.5 10*3/uL Normal 3.8-11.0 [place] [employer] Comment on above: Performed By: #### C BCAD, RF, VITD, ESR, TSH reflex FT4, CMP, FT4 #### [facility] [address], [place] [id number] Comprehensive Metabolic Pane [facility] 07-12-2021 Albumin [Mass/Vol] 4.9 g/dL Normal 3.6-5.1 [place] r[place] [employer] Comment on above: Performed By: #### C BCAD, RF, VITD, ESR, TSH reflex FT4, CMP, FT4 #### [facility] [address], [place] [id number] Albumin/Globulin [Mass ratio] 2.2 {ratio} Normal 1.0-2.5 [facility] [employer] Comment on above: Performed By: #### C BCAD, RF, VITD, ESR, TSH reflex FT4, CMP, FT4 #### [facility] [address], [place] [id number] ALP [Catalytic activity/Vol] 63 U/L Normal 35-119 [facility] Comment on above: Performed By: #### C BCAD, RF, VITD, ESR, TSH reflex FT4, CMP, FT4 #### [facility] [address], [place] [id number] ALT [Catalytic activity/Vol] 26 U/L Normal 6-33 [facility] [employer] Comment on above: Result Comment: 01/26 Female reference range changed. Performed By: #### C BCAD, RF, VITD, ESR, TSH reflex FT4, CMP, FT4 #### [facility] [address] [place], [place] [id number] Anion gap [Moles/Vol] 18 mmol/L Normal 12-20 [facility] Flattening Machine Operator Comment on above: Result Comment: Effe ctive 03/03/2019 reference range changed. Performed By: #### C BCAD, RF, VITD, ESR, TSH reflex FT4, CMP, FT4 #### [facility] [address] [place], [place] [id number] AST [Catalytic activity/Vol] 26 U/L Normal 9-34 [facility] Comment on above: Performed By: #### C BCAD, RF, VITD, ESR, TSH reflex FT4, CMP, FT4 #### [facility] [address] [place], [place] [id number] BUN/CREA 10 Ratio Normal 6-22 [facility] Comment on above: Performed By: #### C BCAD, RF, VITD, ESR, TSH reflex FT4, CMP, FT4 #### [facility] [address] [place], [place] [id number] Calcium [Mass/Vol] 10.0 mg/dL Normal 8.6-10.2 [facility] Comment on above: Performed By: #### C BCAD, RF, VITD, ESR, TSH reflex FT4, CMP, FT4 #### [facility] [address] [place], [place] [id number] Chloride [Moles/Vol] 105 mmol/L Normal 98-107 [facility] Comment on above: Performed By: #### C BCAD, RF, VITD, ESR, TSH reflex FT4, CMP, FT4 #### [facility] [address] [place], [place] [id number] CO2 [Moles/Vol] 21 mmol/L Normal 20-31 [facility] Comment on above: Performed By: #### C BCAD, RF, VITD, ESR, TSH reflex FT4, CMP, FT4 #### [facility] [address] [place], [place] [id number] Creatinine [Mass/Vol] 0.6 mg/dL Normal 0.6-1.4 [facility] Comment on above: Performed By: #### C BCAD, RF, VITD, ESR, TSH reflex FT4, CMP, FT4 #### [facility] [address] [place], [place] [id number] eGFRAA 132 mL/min/1.73m2 Normal >60 [facility] Comment on above: Performed By: #### C BCAD, RF, VITD, ESR, TSH reflex FT4, CMP, FT4 #### [facility] [address] [place], [place] [id number] eGFRNAA 109 mL/min/1.73m2 Normal >60 Danielle francis [place] Flattening Machine Operator Comment on above: Performed By: #### C BCAD, RF, VITD, ESR, TSH reflex FT4, CMP, FT4 #### [facility] [address] [place], [place] [id number] Globulin (S) [Mass/Vol] 2.2 g/dL Normal 1.9-3.7 [facility] Flattening Machine Operator Comment on above: Performed By: #### C BCAD, RF, VITD, ESR, TSH reflex FT4, CMP, FT4 #### [facility] [address] [place], [place] [id number] Glucose [Mass/Vol] 86 mg/dL Normal 65-99 Levar cueva [place] Flattening Machine Operator Comment on above: Result Comment: For FASTING Glucose --- ADA reference ranges: Normal 65-99 mg/dl Prediabetes 100-125 Diabetes >/= 126 Performed By: #### C BCAD, RF, VITD, ESR, TSH reflex FT4, CMP, FT4 #### [facility] [address] [place], [place] [id number] Potassium [Moles/Vol] 4.1 mmol/L Normal 3.5-5.5 [facility] Flattening Machine Operator Comment on above: Performed By: #### C BCAD, RF, VITD, ESR, TSH reflex FT4, CMP, FT4 #### [facility] [address] [place], [place] [id number] Protein [Mass/Vol] 7.1 g/dL Normal 6.1-8.1 Levar cueva [place] Flattening Machine Operator Comment on above: Performed By: #### C BCAD, RF, VITD, ESR, TSH reflex FT4, CMP, FT4 #### [facility] [address] [place], [place] [id number] Sodium [Moles/Vol] 140 mmol/L Normal 135-146 Levar cueva [place] Flattening Machine Operator Comment on above: Performed By: #### C BCAD, RF, VITD, ESR, TSH reflex FT4, CMP, FT4 #### [facility] [address] [place], [place] [id number] TBIL <0.3 Normal [facility] Flattening Machine Operator Comment on above: Performed By: #### C BCAD, RF, VITD, ESR, TSH reflex FT4, CMP, FT4 #### [facility] [address] [place], [place] [id number] Urea nitrogen [Mass/Vol] 7 mg/dL Normal 7-25 [facility] Comment on above: Performed By: #### C BCAD, RF, VITD, ESR, TSH reflex FT4, CMP, FT4 #### [facility] [address] [place], [place] [id number] Free T4on 07-12-2021 Free T4 [Mass/Vol] 0.93 ng/dL Normal 0.80-1.80 [facility] Comment on above: Performed By: #### C BCAD, RF, VITD, ESR, TSH reflex FT4, CMP, FT4 #### [facility] [address] [place], [place] [id number] Q - PASQUALE SCREEN IFA W/RFL TIT ER AND PATTERNon 07-12-2021 PASQUALE SCREEN, IFA Negative Normal NEGATIVE [facility] Comment on above: Order Comment: [facility] performed at: QPT, [facility], [address] [place] [address], [address] [place] [address], [id number], [place]: Leonard Turpin MD [facility] Collection Date/Time: [facility] [...] AC-0: Negative International Consensus on PASQUALE Patterns (https://doi.org/10.1515/tpja-6366-9912) For additional information, please refer to http://education.Goodzer.Seemage/faq/BXI102 (This link is being provided for informational/ educational purposes only.) Performed By: #### 2 49 #### [facility] [address] [place] [id number] RBC Sedimentation Rateon ESR (Bld) [Velocity] 8.00 mm/h Normal 0.00-20.00 [facility] Comment on above: Performed By: #### C BCAD, RF, VITD, ESR, TSH reflex FT4, CMP, FT4 #### [facility] [address] [place], [place] [id number] Rheumatoid Factoron 07-13-19 RF <10 Normal [facility] Comment on above: Performed By: #### C BCAD, RF, VITD, ESR, TSH reflex FT4, CMP, FT4 #### [facility] [address] [place], [place] [id number] TSH w/ Reflex to Free T4on 07-12-2021 TSH 0.321 uIU/mL Low 0.400-4.500 [facility] Flattening Machine Operator Comment on above: Performed By: #### C BCAD, RF, VITD, ESR, TSH reflex FT4, CMP, FT4 #### [facility] [address] [place], [place] [id number] Vitamin D 25-OHon 07-12-2021 VIT D 25 [place] 19 ng/ml Low >29 [facility] Flattening Machine Operator Comment on above: Result Comment: Ade min D Status Deficiency <20 ng/mL Insufficiency 20-29 ng/mL Optimal 30-100 ng/mL Possible Toxicity >=150 ng/mL Performed By: #### C BCAD, RF, VITD, ESR, TSH reflex FT4, CMP, FT4 #### [facility] [address] [place], [place] [id number] Comprehensive Metabolic Empo n 04-11-2021 Albumin [Mass/Vol] 4.6 g/dL Normal 3.2-5.5 [facility] Comment on above: Performed By: #### E BS CMP, EBS LIPID #### [facility] [address] Albumin/Globulin [Mass ratio] 1.9 {ratio} Normal [facility] Comment on above: Performed By: #### E BS CMP, EBS LIPID #### [facility] [address] ALP [Catalytic activity/Vol] 43 U/L Normal 32-92 [facility] Comment on above: Performed By: #### E BS CMP, EBS LIPID #### [facility] [address] ALT [Catalytic activity/Vol] 17 U/L Normal 10-60 [facility] Comment on above: Performed By: #### E BS CMP, EBS LIPID #### [facility] [address] AST [Catalytic activity/Vol] 20 U/L Normal 10-42 [facility] Comment on above: Performed By: #### E BS CMP, EBS LIPID #### [address] Bilirubin [Mass/Vol] 1.1 mg/dL Normal 0.3-1.2 [facility] Comment on above: Performed By: #### E BS CMP, EBS LIPID #### [address] Calcium [Mass/Vol] 9.6 mg/dL Normal 8.2-10.2 [facility] Comment on above: Performed By: #### E BS CMP, EBS LIPID #### [address] Chloride [Moles/Vol] 102 mmol/L Normal 95-114 [facility] Comment on above: Performed By: #### E BS CMP, EBS LIPID #### [facility] [address] [place] [address] CO2 [Moles/Vol] 21.4 mmol/L Low 22.0-30.0 [facility] Comment on above: Performed By: #### E BS CMP, EBS LIPID #### [facility] [address] [place] [address] Creatinine [Mass/Vol] 0.71 mg/dL Normal 0.44-1.03 [facility] Comment on above: Performed By: #### E BS CMP, EBS LIPID #### [facility] [address] [place] [address] [place] Estimated GFR ( Michelle > 60 Normal [facility] Comment on above: Result Comment: GFR estimated reference range: According to KDOQI guidelines, <60 ml/min/1.73m2 is sufficient to diagnose a patient with chronic kidney disease. Performed By: #### E BS CMP, EBS LIPID #### [facility] [address] Estimated GFR (Non- Am > 60 Normal [facility] Comment on above: Performed By: #### E BS CMP, EBS LIPID #### [facility] [address] Globulin (S) [Mass/Vol] 2.4 g/dL Normal [facility] Comment on above: Performed By: #### E BS CMP, EBS LIPID #### [address] Glucose [Mass/Vol] 76 mg/dL Normal 70-100 [facility] Comment on above: Performed By: #### E BS CMP, EBS LIPID #### [facility] [address] [place] [address] Potassium [Moles/Vol] 3.3 mmol/L Low 3.5-5.1 [facility] Comment on above: Performed By: #### E BS CMP, EBS LIPID #### [facility] [address] [place] [address] Protein [Mass/Vol] 7.0 g/dL Normal 6.1-7.9 [facility] Comment on above: Performed By: #### E BS CMP, EBS LIPID #### [facility] [address] [place] [address] [place] Sodium [Moles/Vol] 136 mmol/L Normal 136-146 [facility] Comment on above: Performed By: #### E BS CMP, EBS LIPID #### [facility] [address] [place] [address] Urea nitrogen [Mass/Vol] 5 mg/dL Low 9-23 [facility] Comment on above: Performed By: #### E BS CMP, EBS LIPID #### [facility] [address] Lipid Profileon 04-11-2021 Cholesterol [Mass/Vol] 189 mg/dL Normal 140-200 [facility] Comment on above: Result Comment: Chol less than 200 mg/dl low risk Chol 201-239 mg/dl borderline risk Chol 240 mg/dl and greater high risk Performed By: #### E BS CMP, EBS LIPID #### [facility] [address] Cholesterol in HDL [Mass/Vol] 69 mg/dL Normal 35-85 [facility] Comment on above: Result Comment: HDL CHOL ATP-III CLASSIFICATION Cardiovascular Risk HDL > or equal to 60 mg/dL LOW HDL < 40 mg/dL HIGH Performed By: #### E BS CMP, EBS LIPID #### [address] Cholesterol.total/C holesterol in HDL [Mass ratio] 2.7 {ratio} Normal <5.0 [facility] Comment on above: Result Comment: PERF ORMED BY: [place] [address] PATHOLOGIST SOLICITING FREIGHT AGENT PAT PETERS M.D. Performed By: #### E BS CMP, EBS LIPID #### [address] LDL Cholesterol,Calcula shadi 107 mg/dL High 0-100 [facility] Comment on above: Result Comment: LDL ATP III CLASSIFICATION LDL less than 100 mg/dL Optimal LDL 100-129 mg/dL Near or above optimal LDL 130-159 mg/dL Borderline high LDL 160-189 mg/dL High LDL greater than 189 mg/dL Very high Performed By: #### E BS CMP, EBS LIPID #### [facility] [address] [place] [address] [place] Triglyceride w/Reflex 64 mg/dL Normal 35-149 [facility] Comment on above: Result Comment: TRIG ATP III CLASSIFICATION TRIG less than 150 mg/dL Normal TRIG 150-199 mg/dL Borderline high TRIG 200-500 mg/dL High TRIG greater than 500 mg/dL Very high Standard traceable to the Center for Disease Conrtrol and Prevention (CDC) test method. Performed By: #### E BS CMP, EBS LIPID #### [facility] [address] [place] [id number] [place] VLDL CHOLESTEROL 12 mg/dL Normal [facility] Comment on above: Performed By: #### E BS CMP, EBS LIPID #### [facility] [address] [place] [id number] [place] Covid-19 PCR (CVDTB)on SARS-CoV-2 (COVID-19) RNA ERIC+probe Ql (Unsp spec) Detected Critically abnormal NOT DETECTED [facility] Comment on above: Result Comment: This test is not yet approved or cleared by the [place] FDA. When there are no FDA-approved or cleared tests available, and other criteria are met, FDA can make tests available under an emergency access mechanism called an Emergency Use Authorization (EUA). The EUA for this test is supported by the [place] of Health and Human Service's (HHS's) declaration [...] used). Performed By: #### C VDTBH #### [facility] [address] [place] [address] Dr. Sierra Almonte CHLAMYDIA/GONOCOCCUS ERIC (SW AB/URINE/PAPon 12-14-2020 Chlamydia trachomatis, ERIC Negative Normal Negative [facility] Comment on above: Performed By: #### C T/NGNA #### [facility] [address] [place] [address] Dr. Sierra Almonte Neisseria gonorrhoeae, ERIC Negative Normal Negative [facility] Comment on above: Performed By: #### C T/NGNA #### [facility] [address] [place] [address] Dr. Sierra Almonte VAGINITIS/VAGINOSIS DNA PROB Andrew 12-11-2020 Loc species Negative Normal Negative [facility] Comment on above: Performed By: #### V AGINT #### [facility] [address] [place] [address] [address] Sierra Almonte Gardnerella vaginalis Positive Abnormal Negative [facility] Comment on above: Performed By: #### V AGINT #### [facility] [address] [place] [address] [address] Sierra Almonte Trichomonas vaginalis Negative Normal Negative [facility] Comment on above: Performed By: #### V AGINT #### [facility] [address] [place] [address] [address] Sierra Almonte Vital Signs Date Time Vital Sign Value Performing Clinician Faci lity 04-29-2024 14:44-0500 Body mass index (BMI) [Ratio] 28.72 kg/m2 Raghavendra Christina DO Work Phone: [facility] 04-29-2024 14:44-0500 Body weight 73.54 kg Raghavendra Christina DO Work Phone: [facility] 04-29-2024 14:44-0500 Diastolic blood pressure 70 mm[Hg] Raghavendra Christina DO Work Phone: [facility] 04-29-2024 14:44-0500 Systolic blood pressure 98 mm[Hg] Raghavendra Christina DO Work Phone: [facility] 04-08-2024 11:58-0500 Body mass index (BMI) [Ratio] 28.48 kg/m2 Raghavendra Christina DO Work Phone: [facility] 04-08-2024 11:58-0500 Body weight 72.94 kg Raghavendra Christina DO Work Phone: [facility] 04-08-2024 11:58-0500 Diastolic blood pressure 74 mm[Hg] Raghavendra Christina DO Work Phone: [facility] 04-08-2024 11:58-0500 Systolic blood pressure 110 mm[Hg] Raghavendra Christina DO Work Phone: [facility] 04-02-2024 11:03-0500 Body mass index (BMI) [Ratio] 27.99 kg/m2 Teresa Jo Ann-Nossek FABRICATING MACHINE OPERATOR-CELL TESTER Work Phone: [facility] 04-02-2024 11:03-0500 Body weight 71.67 kg Teresa Jo Ann-Nossek FABRICATING MACHINE OPERATOR-CELL TESTER Work Phone: [facility] 04-02-2024 11:03-0500 Diastolic blood pressure 72 mm[Hg] Teresa Arringtonor-Nossek FABRICATING MACHINE OPERATOR-CELL TESTER Work Phone: [facility] 04-02-2024 11:03-0500 Heart rate 105 /min Teresa Arringtonor-Nossek FABRICATING MACHINE OPERATOR-CELL TESTER Work Phone: [facility] 04-02-2024 11:03-0500 Systolic blood pressure 122 mm[Hg] Teresa Arringtonor-Nossek FABRICATING MACHINE OPERATOR-CELL TESTER Work Phone: [facility] 03-25-2024 10:19-0500 Body mass index (BMI) [Ratio] 27.63 kg/m2 Raghavendra Christina DO Work Phone: [facility] 03-25-2024 10:19-0500 Body weight 70.76 kg Raghavendar Christina DO Work Phone: [facility] 03-25-2024 10:19-0500 Diastolic blood pressure 68 mm[Hg] Raghavendra Christina DO Work Phone: [facility] 03-25-2024 10:19-0500 Systolic blood pressure 100 mm[Hg] Raghavendra Christina DO Work Phone: [facility] 03-11-2024 10:10-0500 Body mass index (BMI) [Ratio] 27.95 kg/m2 Raghavendra Christina DO Work Phone: [facility] 03-11-2024 10:10-0500 Body weight 71.58 kg Raghavendra Christina DO Work Phone: [facility] 03-11-2024 10:10-0500 Diastolic blood pressure 68 mm[Hg] Raghavendra Christina DO Work Phone: [facility] 03-11-2024 10:10-0500 Systolic blood pressure 104 mm[Hg] Raghavendra Christina DO Work Phone: [facility] 02-13-2024 13:14-0500 Body height 160 cm Emerita Whittakermor INCOME TAX EXPERT Work Phone: [facility] 02-13-2024 13:14-0500 Body mass index (BMI) [Ratio] 26.93 kg/m2 Emertia Gillmor INCOME TAX EXPERT Work Phone: [facility] 02-13-2024 13:14-0500 Body weight 68.95 kg Emerita Gillmor INCOME TAX EXPERT Work Phone: [facility] 02-13-2024 13:14-0500 Diastolic blood pressure 72 mm[Hg] Emerita Remediosmor INCOME TAX EXPERT Work Phone: [facility] 02-13-2024 13:14-0500 Heart rate 109 /min Emerita Whittakermor INCOME TAX EXPERT Work Phone: [facility] 02-13-2024 13:14-0500 Systolic blood pressure 119 mm[Hg] Emerita Gillmor INCOME TAX EXPERT Work Phone: [facility] 02-11-2024 10:19-0500 Body mass index (BMI) [Ratio] 27.3 kg/m2 Raghavendra Christina DO Work Phone: [facility] 02-11-2024 10:19-0500 Body weight 71.58 kg Raghavendra Christina DO Work Phone: [facility] 02-11-2024 10:19-0500 Diastolic blood pressure 70 mm[Hg] Raghavendra Christina DO Work Phone: [facility] 02-11-2024 10:19-0500 Systolic blood pressure 120 mm[Hg] Raghavendra Christina DO Work Phone: [facility] 01-10-2024 10:44-0500 Body mass index (BMI) [Ratio] 26.3 kg/m2 Raghavendra Christina DO Work Phone: [facility] 01-10-2024 10:44-0500 Body weight 68.95 kg Raghavendra Christina DO Work Phone: [facility] 01-10-2024 10:44-0500 Diastolic blood pressure 74 mm[Hg] Raghavendra Christina DO Work Phone: [facility] 01-10-2024 10:44-0500 Systolic blood pressure 116 mm[Hg] Raghavendra Christina DO Work Phone: [facility] 01-01-2024 11:40-0500 Body mass index (BMI) [Ratio] 25.78 kg/m2 Teresa Jo Ann-Nossek FABRICATING MACHINE OPERATOR-CELL TESTER Work Phone: [facility] 01-01-2024 11:40-0500 Body weight 67.59 kg Teresa Jo Ann-Nossek FABRICATING MACHINE OPERATOR-CELL TESTER Work Phone: [facility] 01-01-2024 11:40-0500 Diastolic blood pressure 82 mm[Hg] Teresa Jo Ann-Nossek FABRICATING MACHINE OPERATOR-CELL TESTER Work Phone: [facility] 01-01-2024 11:40-0500 Heart rate 99 /min Teresa Jo Ann-Nossek FABRICATING MACHINE OPERATOR-CELL TESTER Work Phone: [facility] 01-01-2024 11:40-0500 Systolic blood pressure 100 mm[Hg] Teresa Jo Ann-Nossek FABRICATING MACHINE OPERATOR-CELL TESTER Work Phone: [facility] 11-28-2023 14:53-0400 Body mass index (BMI) [Ratio] 25.57 kg/m2 Raghavendra Christina DO Work Phone: [facility] 11-28-2023 14:53-0400 Body weight 67.04 kg Raghavendra Christina DO Work Phone: [facility] 11-28-2023 14:53-0400 Diastolic blood pressure 74 mm[Hg] Raghavendra Christina DO Work Phone: [facility] 11-28-2023 14:53-0400 Systolic blood pressure 114 mm[Hg] Raghavendra Christina DO Work Phone: [facility] 11-01-2023 15:16-0400 Body mass index (BMI) [Ratio] 25.6 kg/m2 [facility] 11-01-2023 15:16-0400 Body weight 67.13 kg [facility] 10-18-2023 11:32-0400 Body height 161.9 cm Ysabel Cabral MD Work Phone: [facility] 10-18-2023 11:32-0400 Body mass index (BMI) [Ratio] 26.05 kg/m2 Ysabel Cabral MD Work Phone: [facility] 10-18-2023 11:32-0400 Body weight 68.31 kg Ysabel Cabral MD Work Phone: [facility] 10-18-2023 11:32-0400 Diastolic blood pressure 76 mm[Hg] Ysabel Cabral MD Work Phone: [facility] 10-18-2023 11:32-0400 Heart rate 92 /min Ysabel Cabral MD Work Phone: [facility] 10-18-2023 11:32-0400 Respiratory rate 20 /min Ysabel Cabral MD Work Phone: [facility] 10-18-2023 11:32-0400 Systolic blood pressure 122 mm[Hg] Ysabel Cabral MD Work Phone: [facility] Healthcare Encounters Encounter Date Encounter Type Care Provider Facility Start: 04-29-2024 End: 04-29-2024 ambulatory RAGHAVENDRA CHRISTINA Not Available Start: 04-29-2024 End: 04-29-2024 Bamboo flowsheet Raghavendra Christina DO Work Phone: [facility] Start: 04-29-2024 End: 04-29-2024 Bamboo flowsheet Raghavendra Christina DO Work Phone: [facility] Start: 04-29-2024 End: 04-29-2024 Clinisync Result Encounter Generic External Data Provider [facility] External Department Unsolicited Start: 04-29-2024 End: 04-29-2024 [...] 04-02-2024 End: 04-02-2024 Bamboo flowsheet Teresa Arringtonor-Nossek FABRICATING MACHINE OPERATOR-CELL TESTER Work Phone: [facility] Start: 04-02-2024 End: 04-02-2024 Bamboo flowsheet Teresa Alonzo Jo Ann-Nossek FABRICATING MACHINE OPERATOR-CELL TESTER Work Phone: [facility] Start: 04-02-2024 End: 04-02-2024 ambulatory TERESA Alonzo JO ANN-NOSSEK Not Available Start: 04-02-2024 End: 04-02-2024 Office outpatient visit 25 minutes Teresajohn Ornelas FABRICATING MACHINE OPERATOR-CELL TESTER Work Phone: [facility] Comment on above: Generalized anxiety disorder (CMS/HCC); [...] End: 03-25-2024 Office outpatient visit 15 minutes Raghaevndra Christina DO Work Phone: [facility] [...] 02-13-2024 End: 02-13-2024 Bamboo flowsheet Emerita Suhasr INCOME TAX EXPERT Work Phone: [facility] Start: 02-13-2024 End: 02-13-2024 Bamboo flowsheet Emerita Remediosmor INCOME TAX EXPERT Work Phone: [facility] Start: 02-13-2024 End: 02-13-2024 ambulatory EMERITA REMEDIOSMOR Not Available Start: 02-13-2024 End: 02-13-2024 Office outpatient visit 15 minutes Emerita Warren INCOME TAX EXPERT Work Phone: [facility] Comment on above: Intractable chronic [...] yrs Raghavendra Valdezo DO Work Phone: [facility] Comment on above: Well woman exam with routine gynecological exam; Second trimester ; 18 weeks gestation of ; Vaginal discharge; STD exposure; Screening, , for anatomic survey; Gastroesophageal reflux in Start: 01-10-2024 End: 01-10-2024 ambulatory RAGHAVENDRA VASQUEZ Not Available Start: 01-01-2024 End: 01-01-2024 Bamboo flowsheet Tereas Cherry-Chayosek FABRICATING MACHINE OPERATORWilmington Pharmaceuticals Work Phone: [facility] Start: 01-01-2024 End: 01-01-2024 Bamboo flowsheet Teresa Cherry-Nossek FABRICATING MACHINE OPERATOR-[employer] Work Phone: [facility] Start: 01-01-2024 End: 01-01-2024 ambulatory TERESA ARRINGTONOR-NOSSEK Not Available Start: 01-01-2024 End: 01-01-2024 Office outpatient visit 25 minutes Teresa Arringtonor-Nossek FABRICATING MACHINE OPERATOR-[employer] Work Phone: [facility] Comment on above: [...] Office outpatient visit 15 minutes Teresa [place] FABRICATING MACHINE OPERATOR-CELL TESTER Work Phone: [facility] Comment on above: Attention deficit hy peractivity [...] Bamboo flowsheet Evonne Childress DO Work Phone: [facility] Start: 10-18-2023 End: 10-18-2023 Office outpatient visit 15 minutes Ysabel Cabral MD Work Phone: [facility] Comment on above: Morning sickness (Pr imary Dx) Start: 10-18-2023 End: 10-18-2023 ambulatory YSABEL CABRAL Not Available Start: 10-18-2023 End: 10-18-2023 Office outpatient visit 25 minutes Evonne Childress DO Work Phone: [facility] Comment on above: Intractable chronic [...] Not Available Start: 08-16-2023 End: 08-16-2023 ambulatory HCLOE R DILLON Not Available Start: 08-10-2023 End: [...] ambulatory DR TALITA DODSON Facility: Start: 05-11-2021 ([facility] Vac) [facility] Co vid Vaccine Vicky Joe [facility] Start: 05-11-2021 End: 05-11-2021 ambulatory Vicky Joe Other [place] [employer] Other Start: 03-01-2021 End: 03-01-2021 ambulatory CHLOE [...] Data Provider Start: 03-07-2024 [facility] UA (CLEAN/CATCH) CELL TESTER/MICRO IF IND. Raghavendra Christina DO Work Phone: [...] CA, MG, RHF, URCA #### [facility] [address] [facility] [address] Plan of Treatment Date Care Activity Detail Author Start: 01-09-2027 Screening for malign ant neoplasm of cervix [facility] Start: 06-17-2024 End: 06-17-2024 Patient encounter procedure 06/17/2024 11:30 AM EDT Office Visit [facility] [address] [facility] [address] [place] [address] Teresa Ornelas, FABRICATING MACHINE OPERATOR-CELL TESTER [address] [facility] [address] [place] [address] [facility] Start: 05-13-2024 End: 05-13-2024 Patient encounter procedure 05/13/2024 2:00 PM EDT Routine [facility] [address] [facility] [place] [place] [address] Raghavendra Vasquez, DO [address] [place] [address] [facility] Start: 05-06-2024 End: 05-06-2024 [...] AM EST Routine [facility] [address] [facility] [place] [phone] Raghavendra Vasquez, DO [address] [place] [address] [facility] Start: 04-08-2024 End: 10-06-2024 [...] [facility] [address] [place] [phone] Raghavendra Vasquez, DO [address] [place] [address] [facility] Start: 04-02-2024 End: 04-02-2024 Patient encounter procedure 04/02/2024 11:00 AM EST Office Visit [facility] [address] [facility] [address] [place] [address] Teresa Ornelas, FABRICATING MACHINE OPERATOR-CELL TESTER [address] [facility] [address] [place] [address] [facility] Start: 03-25-2024 End: 03-25-2024 Patient encounter procedure 03/25/2024 10:00 AM EST Routine [facility] [address] [facility] [place] [id number] Raghavendra Vasquez, DO [address] [facility] [place] [address] [facility] Start: 03-11-2024 End: 03-11-2024 Patient encounter procedure 03/11/2024 9:40 AM EST Routine [facility] [address] [facility] [place] [phone] Raghavendra Vasquez, DO [address] [place] [address] [facility] Start: 02-13-2024 End: 02-13-2024 Patient encounter procedure 02/13/2024 1:00 PM EST Office Visit [facility] [place] [address] [place] [phone] Emerita Warren, NATAN [address] [place], [place] [facility] [place] [address] Start: 02-11-2024 End: 02-10-2025 CBC [...] mellitus screening Expected: 02/11/2024 (Approximate), Expires: 02/10/2025 [facility] Comment on above: Expected: 02/11/2024 (Approximate), Expires: 02/10/2025 Start: 02-11-2024 End: 02-10-2025 US for US OB SCAN FOR GROWTH Imaging Routine 23 weeks gestation of Diabetes mellitus screening Expected: 02/11/2024 (Approximate), Expires: 02/10/2025 [facility] Comment on above: Expected: 02/11/2024 (Approximate), Expires: 02/10/2025 Start: 02-11-2024 End: 02-11-2024 Patient encounter procedure 02/11/2024 9:40 AM EST Routine [facility] [address] [facility] [place] [phone] Raghavendra Vasquez, [address] [facility] [place] [address] [facility] Start: 01-28-2024 End: 01-28-2024 Professional / ancillary services management 01/28/2024 11:00 AM EST Ancillary Procedure [facility] [address] [place] [address] [facility] Start: 01-10-2024 End: 07-09-2024 Alpha fetoprotein, maternal Alpha fetoprotein, maternal Lab Routine Second trimester 18 weeks gestation of Expected: 01/10/2024 (Approximate), Expires: 07/09/2024 [facility] Comment on above: Expected: 01/10/2024 (Approximate), Expires: 07/09/2024 Start: 01-10-2024 End: 01-09-2025 US for US OB ANATOMY SINGLE W US OB CERVICAL LENGTH Imaging Routine Screening, , for anatomic survey Expected: 01/10/2024 (Approximate), Expires: 01/09/2025 [facility] Comment on above: Expected: 01/10/2024 (Approximate), Expires: 01/09/2025 Start: 01-03-2024 End: 01-03-2024 Patient encounter procedure 01/03/2024 11:20 AM EST Routine [facility] [address] [place] [phone] Raghavendra Vasquez, DO [address] [place] [address] [facility] Start: 01-01-2024 End: 01-01-2024 Patient encounter procedure 01/01/2024 11:30 AM EST Office Visit [facility] [address] [facility] [address] [place] [address] Teresa Ornelas, FABRICATING MACHINE OPERATOR-[facility] [address] [facility] [address] [place] [address] [facility] Start: 12-18-2023 End: 12-18-2023 Patient encounter procedure 12/18/2023 5:30 PM EDT Office Visit [facility] [place] [address] [place] [phone] Evonne Childress, [address] [place] [address] [facility] [place] [address] Start: 11-28-2023 End: 11-28-2023 Patient encounter procedure 11/28/2023 2:20 PM EDT Routine [facility] [address] [place] [phone] Raghavendra Vasquez, DO [address] [place] [address] [facility] Start: 11-27-2023 End: 11-27-2023 Patient encounter procedure 11/27/2023 11:00 AM EDT Office Visit [facility] [address] [facility] [address] [place] [address] Teresa Ornelas, FABRICATING MACHINE OPERATOR-[facility] [address] [facility] [address] [place] [address] [facility] Start: 11-01-2023 End: 10-31-2024 ABO/Rh ABO/Rh Lab Routine Missed menses Expected: 11/01/2023 (Approximate), Expires: 10/31/2024 [facility] Comment on above: Expected: 11/01/2023 (Approximate), Expires: 10/31/2024 Start: 11-01-2023 End: 11-01-2023 ambulatory 11/01/2023 2:00 PM EDT Initial [facility] [address] [place] [address] [facility] Start: 11-01-2023 End: 10-31-2024 Blood type and Indirect antibody screen panel - Blood Type and screen Lab Routine Missed menses Expected: 11/01/2023 (Approximate), Expires: 10/31/2024 [facility] Work Phone: Comment on above: Expected: 11/01/2023 (Approximate), Expires: 10/31/2024 Start: 11-01-2023 End: 10-31-2024 US Pelvis transvaginal US OB transvaginal Imaging Routine Missed menses Expected: 11/01/2023 (Approximate), Expires: 10/31/2024 [facility] Comment on above: Expected: 11/01/2023 (Approximate), Expires: 10/31/2024 Start: 11-01-2023 End: 11-01-2023 Professional / ancillary services management 11/01/2023 1:30 PM EDT Ancillary Procedure [facility] [address] [place] [address] [facility] Start: 10-28-2023 Influenza vaccination Influenza Vacc ine (#1) [facility] Start: 10-18-2023 End: 10-18-2023 Patient encounter procedure 10/18/2023 11:40 AM EDT Office Visit [facility] MICHELLE [address] [place] [phone] Ysabel Cabral MD [address] [place], [place] [id number] [facility] Start: 10-18-2023 End: 10-18-2023 Patient encounter procedure 10/18/2023 10:30 AM EDT Procedure Visit [facility] [place] [address] [place] [address] Evonne Childress DO [address] [place] [address] Arrived [facility] Comment on above: Arrived Start: 09-10-2017 Screening for malign ant neoplasm of cervix [facility] Start: 09-10-2008 Screening for malign ant neoplasm of cervix Pap Smear [facility] Bacteria identified in Urine by Culture Urine culture Microbiology Routine Missed menses Ordered: 11/01/2023 [facility] Comment on above: Ordered: 11/01/2023 CBC W Auto Different ial panel - Blood CBC and differential Lab Routine Missed menses Ordered: 11/01/2023 [facility] Comment on above: Ordered: 11/01/2023 CHLAMYDIA TRACHOMATI S (GENITO/STI) CHLAMYDIA TRACHOMATIS (GENITO/STI) Lab Routine STD exposure Ordered: 01/10/2024 [facility] Comment on above: Ordered: 01/10/2024 Cytology Cervical or vaginal smear or scraping study Pap Smear Pathology and Cytology Routine Well woman exam with routine gynecological exam Ordered: 01/10/2024 [facility] Comment on above: Ordered: 01/10/2024 Hemoglobin A1c/Hemoglobin.total in Blood Hemoglobin A1c Lab Routine Missed menses Ordered: 11/01/2023 [facility] Comment on above: Ordered: 11/01/2023 Hepatitis B virus surface Ag [Presence] in Serum or Plasma by Immunoassay Hepatitis B surface antigen Lab Routine Missed menses Ordered: 11/01/2023 [facility] Comment on above: Ordered: 11/01/2023 Hepatitis C virus Ab [Presence] in Serum or Plasma by Immunoassay Hepatitis C antibody Lab Routine Missed menses Ordered: 11/01/2023 [facility] Comment on above: Ordered: 11/01/2023 HIV-1/HIV-2 antigen/antibody combination immunoassay HIV-1 and HIV-2 antibodies Lab Routine Missed menses Ordered: 11/01/2023 [facility] Comment on above: Ordered: 11/01/2023 Human papilloma viru s DNA [Presence] in Unspecified specimen by Probe with amplification HPV DNA probe, amplified Microbiology Routine Well woman exam with routine gynecological exam Ordered: 01/10/2024 [facility] Comment on above: Ordered: 01/10/2024 Neisseria gonorrhoea e DNA [Presence] in Unspecified specimen by ERIC with probe detection Neisseria gonorrhea DNA probe, direct Lab Routine STD exposure Ordered: 01/10/2024 [facility] Comment on above: Ordered: 01/10/2024 Reagin Ab [Presence] in Serum by RPR RPR Lab Routine Missed menses Ordered: 11/01/2023 [facility] Comment on above: Ordered: 11/01/2023 Rubella antibody, IgG Rubella an tibody, IgG Lab Routine Missed menses Ordered: 11/01/2023 [facility] Comment on above: Ordered: 11/01/2023 SURESWAB(R) ADVANCED VAGINITIS PLUS, TMA SURESWAB(R) ADVANCED VAGINITIS PLUS, TMA Pathology and Cytology Routine Vaginal discharge Ordered: 01/10/2024 [facility] Work Phone: Comment on above: Ordered: 01/10/2024 Immunizations Immunization Date Immunization Notes Care Provider Corrina hanson 05-11-2021 COVID-19 En Joe Other [employer] Other 10-02-2016 influenza, injectabl e, quadrivalent, preservative free Evonne Jaydon DO Work Phone: [facility] 10-02-2016 influenza virus vaccine, unspecified formulation Evonne Jaydon DO Work Phone: [facility] 10-13-2015 influenza, injectabl e, quadrivalent, preservative free Evonne Jaydon DO Work Phone: [facility] 12-02-2014 influenza, seasonal, injectable, preservative free Evonne Childress DO Work Phone: [facility] Payers Date Payer Category Payer Medicaid [facility] MEDICAID [place] MEDICAID [id number] 2021-Present [address] [place] [address] [id number] 2021 Medicaid (Managed Care) [facility] MEDICAID [id number] 1987 Unknown [id number] 2.840.1.616057.3.579.2. 593 1987 Unknown [id number] 2.16840.1.477135.3.579.2. 593 1987 Unknown [id number] 2.16840.1.370751.3.579.2. 593 1987 Unknown [id number] 2.16.840.1.767979.3.579.2. 1259 1987 Unknown [id number] 2.16.840.1.321856.3.579.2. 1259 1987 Unknown [id number] 2.16.840.1.183571.3.579.2. 1259 1987 Unknown [id number] 2.16.840.1.350223.3.579.2. 1259 1987 Unknown [id number] 2.16.840.1.697032.3.579.2. 1258 1987 Unknown [id number] 2.16.840.1.993459.3.579.2. 1258 1987 Unknown [id number] 2..840.1.192977.3.579.2. 1258 1987 Unknown [id number] 2.16.840.1.772514.3.579.2. 1258 1987 Unknown [id number] 2..840.1.843402.3.579.2. 1258 1987 Unknown [id number] 2..840.1.625753.3.579.2. 1258 1987 Unknown [id number] 2.840.1.933547.3.579.2. 1258 1987 Unknown [id number] 2.840.1.838545.3.579.2. 1258 1987 Unknown [id number] 2.840.1.019082.3.579.2. 1258 1987 Unknown [id number] 2.840.1.611315.3.579.2. 1258 1987 Unknown [id number] 2.840.1.319805.3.579.2. 1258 1987 Unknown [id number] 2.840.1.075793.3.579.2. 1258 1987 Unknown [id number] 2.840.1.609604.3.579.2. 1258 1987 Unknown [id number] 2.840.1.835391.3.579.2. 1258 1987 Unknown [id number] 2.840.1.875136.3.579.2. 1258 1987 Unknown [id number] 2..840.1.118356.3.579.2. 1258 1987 Unknown [id number] 2.840.1.810475.3.579.2. 1259 1987 Unknown [id number] 2.16.840.1.296988.3.579.2. 9 1987 Unknown [id number] 2.16.840.1.195276.3.579.2. 9 1987 Unknown [id number] 2.16.840.1.135167.3.579.2. 9 1987 Unknown [id number] 2.16.840.1.537429.3.579.2. 1259 1959 Unknown [id number] 2.16.840.1.615965.19 Social History Date Type Detail Facility Unknown if ever smoked [employer] Other Start: 2022 End: 01-01-2024 Sex Assigned At [employer] Other Start: 12-22-2022 Tobacco smoking stat [facility] Never smoked tobacco [facility] Start: [...] Clinical Notes 05-11-2021 to 04-29-2024 Betsey Malave, INTERVENTION MANAGER - 04/29/2024 2:00 PM Christine Lundberg, INTERVENTION MANAGER - 04/08/2024 11:40 AM America CherryVenitaAdrianne, FABRICATING MACHINE OPERATOR-CELL TESTER - 04/02/2024 11:00 AM Christine Lundberg, INTERVENTION MANAGER - 03/25/2024 10:00 AM EST Note Date [...] Attention deficit hyperactivity disorder (ADHD), combined type ([facility]) 07/04/2022 Episodic mood disorder ([facility]) 07/04/2022 Generalized anxiety disorder ([facility]) 07/04/2022 Panic disorder ([facility]) 07/04/2022 Acquired scoliosis 09/09/2016 Allergic rhinitis 10/16/2019 Anxiety 01/31/2020 Asthma ([facility]) 12/31/2014 Chronic fatigue syndrome 07/03/2016 Chronic gastritis without bleeding 12/28/2022 Irritable bowel syndrome 07/03/2016 Migraine without aura and without status migrainosus, not intractable ([facility]) 09/19/2017 Mild intermittent asthma ([facility]) 02/28/2021 Primary localized osteoarthrosis of ankle [...] Back pain Common migraine (CMS/HCC) 08/17/2015 Depression ([facility]/HCC) H/O colonoscopy H/O umbilical hernia repair Insomnia 06/25/2017 Migraines (CMS/HCC) Nausea with vomiting 08/17/2015 Tendonitis of right hand Tension headache 08/17/2015 HISTORY PAST MEDICAL HISTORY SOCIAL HISTORY Past Medical History: Diagnosis Date Adenoma of left breast removed 2013 ADHD (attention deficit hyperactivity disorder) (CMS/HCC) Anemia Anxiety Asthma (CMS/HCC) Back pain Common migraine (CMS/HCC) 08/17/2015 Depression ([facility]/HCC) H/O colonoscopy 2012 H/O umbilical hernia repair 2008 Headache 08/17/2015 Inadequate sleep hygiene 04/23/2018 Insomnia 06/25/2017 Migraine (CMS/HCC) 03/22/2017 Migraines ([facility]) Nausea with vomiting 08/17/2015 Pain in [...] nursing note reviewed. Exam conducted with a public aid eligibility assistant present. Vitals: Estimated body mass index is [...] Raghavendra Vasquez DO documented in this encounter [facility] 04-08-2024 History of Present illness Narrative Reason [...] Attention deficit hyperactivity disorder (ADHD), combined type ([facility]) 07/04/2022 Episodic mood disorder ([facility]) 07/04/2022 Generalized anxiety disorder ([facility]) 07/04/2022 Panic disorder ([facility]) 07/04/2022 Acquired scoliosis 09/09/2016 Allergic rhinitis 10/16/2019 Anxiety 01/31/2020 Asthma ([facility]) 12/31/2014 Chronic fatigue syndrome 07/03/2016 Chronic gastritis without bleeding 12/28/2022 Irritable bowel syndrome 07/03/2016 Migraine without aura and without status migrainosus, not intractable ([facility]) 09/19/2017 Mild intermittent asthma ([facility]) 02/28/2021 Primary localized osteoarthrosis of ankle and foot 03/13/2019 Vitamin D deficiency 12/28/2022 Headache 06/28/2023 Inadequate sleep hygiene 06/28/2023 Migraine ([facility]) 06/28/2023 Tenosynovitis of foot 06/28/2023 Nausea and vomiting 06/28/2023 Common migraine with intractable migraine ([facility]) 06/28/2023 Pain in limb 06/28/2023 Chronic tension-type headache, not intractable 06/28/2023 Sleep disturbance 06/28/2023 Insomnia, unspecified 06/28/2023 Other problems related to lifestyle 06/28/2023 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 08/10/2023 Resolved Ambulatory Problems Diagnosis Date Noted No Resolved Ambulatory Problems Past Medical History: Diagnosis Date Adenoma of left breast ADHD (attention deficit hyperactivity disorder) ([facility]) Anemia Back pain Common migraine ([facility]) 08/17/2015 Depression ([facility]) H/O colonoscopy H/O umbilical hernia repair Insomnia 06/25/2017 Migraines ([facility]) Nausea with vomiting 08/17/2015 Tendonitis of right hand Tension headache 08/17/2015 HISTORY PAST MEDICAL HISTORY SOCIAL HISTORY Past Medical History: Diagnosis Date Adenoma of left breast removed 2013 ADHD (attention deficit hyperactivity disorder) ([facility]) Anemia Anxiety Asthma ([facility]) Back pain Common migraine ([facility]/HCC) 08/17/2015 Depression ([facility]) H/O colonoscopy 2012 H/O umbilical hernia repair 2008 Headache 08/17/2015 Inadequate sleep hygiene 04/23/2018 Insomnia 06/25/2017 Migraine (CMS/HCC) 03/22/2017 Migraines ([facility]) Nausea with vomiting 08/17/2015 Pain in [...] Relation Name Age of Onset Depression Mother Idnaia Swartz Anxiety disorder Mother Idania Swartz Hyperlipidemia Mother Idania Swartz Sarcoidosis Mother Idania Swartz Migraines Mother Idaina Swartz Rheum arthritis Father Amandeepjeniffer Moeller Depression [...] nursing note reviewed. Exam conducted with a public aid eligibility assistant present. Vitals: Estimated body mass index is [...] Veda Sarmiento PA-C documented in this encounter [facility] 04-02-2024 History of Present illness Narrative Images from the original note were not included. Patient reports not starting the Zoloft after last visit. Tiki Moeller is a 38 y.o. female presents for Medication Management. HPI: Patient is here for medication follow up. Patient is currently 32weeks decided not to take zoloft. Got fired from [employer] due to falling asleep. She was feeling [...] removed 2013 ADHD (attention deficit hyperactivity disorder) ([facility]) Anemia Anxiety Asthma ([facility]) Back pain Common migraine (CMS/HCC) 08/17/2015 [...] check for post documented in this encounter [facility] 03-25-2024 History of Present illness Narrative Reason [...] 09/09/2016 Allergic rhinitis 10/16/2019 Anxiety 01/31/2020 Asthma ([facility]/HCC) 12/31/2014 Chronic fatigue syndrome 07/03/2016 Chronic gastritis without bleeding 12/28/2022 Irritable bowel syndrome 07/03/2016 Migraine without aura and without status migrainosus, not intractable ([facility]) 09/19/2017 Mild intermittent asthma ([facility]) 02/28/2021 Primary localized osteoarthrosis of ankle and foot 03/13/2019 Vitamin D deficiency 12/28/2022 Headache 06/28/2023 Inadequate sleep hygiene 06/28/2023 Migraine ([facility]/HCC) 06/28/2023 Tenosynovitis of foot 06/28/2023 Nausea and vomiting 06/28/2023 Common migraine with intractable migraine ([facility]) 06/28/2023 Pain in limb 06/28/2023 Chronic tension-type headache, not intractable 06/28/2023 Sleep disturbance 06/28/2023 Insomnia, unspecified 06/28/2023 Other problems related to lifestyle 06/28/2023 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 08/10/2023 Resolved Ambulatory Problems Diagnosis Date Noted No Resolved Ambulatory Problems Past Medical History: Diagnosis Date Adenoma of left breast ADHD (attention deficit hyperactivity disorder) ([facility]) Anemia Back pain Common migraine ([facility]) 08/17/2015 Depression ([facility]) H/O colonoscopy H/O umbilical hernia repair Insomnia 06/25/2017 Migraines ([facility]) Nausea with vomiting 08/17/2015 Tendonitis of right hand Tension headache 08/17/2015 HISTORY PAST MEDICAL HISTORY SOCIAL HISTORY Past Medical History: Diagnosis Date Adenoma of left breast removed 2013 ADHD (attention deficit hyperactivity disorder) ([facility]) Anemia Anxiety Asthma ([facility]) Back pain Common migraine ([facility]) 08/17/2015 Depression ([facility]) H/O colonoscopy 2012 H/O umbilical hernia repair 2007 Headache 08/17/2015 Inadequate sleep hygiene 04/23/2018 Insomnia 06/25/2017 Migraine ([facility]/HCC) 03/22/2017 Migraines ([facility]) Nausea with vomiting 08/17/2015 Pain in [...] nursing note reviewed. Exam conducted with a public aid eligibility assistant present. Vitals: Estimated body mass index is [...] Raghavendra Vasquez DO documented in this encounter [facility] 03-11-2024 History of Present illness Narrative Reason [...] Attention deficit hyperactivity disorder (ADHD), combined type ([facility]) 07/04/2022 Episodic mood disorder ([facility]) 07/04/2022 Generalized anxiety disorder ([facility]) 07/04/2022 Panic disorder ([facility]) 07/04/2022 Acquired scoliosis 09/09/2016 Allergic rhinitis 10/16/2019 Anxiety 01/31/2020 Asthma ([facility]) 12/31/2014 Chronic fatigue syndrome 07/03/2016 Chronic gastritis without bleeding 12/28/2022 Irritable bowel syndrome 07/03/2016 Migraine without aura and without status migrainosus, not intractable ([facility]) 09/19/2017 Mild intermittent asthma ([facility]) 02/28/2021 Primary localized osteoarthrosis of ankle and foot 03/13/2019 Vitamin D deficiency 12/28/2022 Headache 06/28/2023 Inadequate sleep hygiene 06/28/2023 Migraine ([facility]) 06/28/2023 Tenosynovitis of foot 06/28/2023 Nausea and vomiting 06/28/2023 Common migraine with intractable migraine ([facility]) 06/28/2023 Pain in limb 06/28/2023 Chronic tension-type headache, not intractable 06/28/2023 Sleep disturbance 06/28/2023 Insomnia, unspecified 06/28/2023 Other problems related to lifestyle 06/28/2023 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 08/10/2023 Resolved Ambulatory Problems Diagnosis Date Noted No Resolved Ambulatory Problems Past Medical History: Diagnosis Date Adenoma of left breast ADHD (attention deficit hyperactivity disorder) ([facility]) Anemia Back pain Common migraine ([facility]) 08/17/2015 Depression ([facility]) H/O colonoscopy H/O umbilical hernia repair Insomnia 06/25/2017 Migraines ([facility]) Nausea with vomiting 08/17/2015 Tendonitis of right hand Tension headache 08/17/2015 HISTORY PAST MEDICAL HISTORY SOCIAL HISTORY Past Medical History: Diagnosis Date Adenoma of left breast removed 2013 ADHD (attention deficit hyperactivity disorder) ([facility]) Anemia Anxiety Asthma ([facility]) Back pain Common migraine ([facility]) 08/17/2015 Depression ([facility]) H/O colonoscopy 2012 H/O umbilical hernia repair 2008 Headache 08/17/2015 Inadequate sleep hygiene 04/23/2018 Insomnia 06/25/2017 Migraine ([facility]) 03/22/2017 Migraines ([facility]) Nausea with vomiting 08/17/2015 Pain in [...] nursing note reviewed. Exam conducted with a public aid eligibility assistant present. Vitals: Estimated body mass index is [...] Raghavendra Vasquez DO documented [facility] encounter [facility] 02-11-2024 History of Present illness Narrative Reason [...] deficit hyperactivity disorder (ADHD), combined type ([facility] 07/04/2022 Episodic mood disorder ([facility] 07/04/2022 Generalized anxiety disorder ([facility] 07/04/2022 Panic disorder ([facility] 07/04/2022 Acquired scoliosis 09/09/2016 Allergic rhinitis 10/16/2019 Anxiety 01/31/2020 Asthma ([facility]) 12/31/2014 Chronic fatigue syndrome 07/03/2016 Chronic gastritis without bleeding 12/28/2022 Irritable bowel syndrome 07/03/2016 Migraine without aura and without status migrainosus, not intractable ([facility] 09/19/2017 Mild intermittent asthma ([facility] 02/28/2021 Primary localized osteoarthrosis of ankle and foot 03/13/2019 Vitamin D deficiency 12/28/2022 Headache 06/28/2023 Inadequate sleep hygiene 06/28/2023 Migraine ([facility] 06/28/2023 Tenosynovitis of foot 06/28/2023 Nausea and vomiting 06/28/2023 Common migraine with intractable migraine ([facility] 06/28/2023 Pain in limb 06/28/2023 Chronic tension-type headache, not intractable 06/28/2023 Sleep disturbance 06/28/2023 Insomnia, unspecified 06/28/2023 Other problems related to lifestyle 06/28/2023 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 08/10/2023 Resolved Ambulatory Problems Diagnosis Date Noted No Resolved Ambulatory Problems Past Medical History: Diagnosis Date Adenoma of left breast ADHD (attention deficit hyperactivity disorder) ([facility]) Anemia Back pain Common migraine ([facility]) 08/17/2015 Depression ([facility] H/O colonoscopy H/O umbilical hernia repair Insomnia 06/25/2017 Migraines ([facility]) Nausea with vomiting 08/17/2015 Tendonitis of right hand Tension headache 08/17/2015 HISTORY PAST MEDICAL HISTORY SOCIAL HISTORY Past Medical History: Diagnosis Date Adenoma of left breast removed 2013 ADHD (attention deficit hyperactivity disorder) ([facility] Anemia Anxiety Asthma ([facility]) Back pain Common migraine ([facility] 08/17/2015 Depression ([facility] H/O colonoscopy 2012 H/O umbilical hernia repair 2008 Headache 08/17/2015 Inadequate sleep hygiene 04/23/2018 Insomnia 06/25/2017 Migraine (CMS/HCC) 03/22/2017 Migraines ([facility]) Nausea with vomiting 08/17/2015 Pain in [...] nursing note reviewed. Exam conducted with a public aid eligibility assistant present. Vitals: Estimated body mass index is [...] Raghavendra Vasquez DO documented in this encounter [facility] 01-10-2024 History of Present illness Narrative Reason for Appointment: Patient ID: Tiki Moelelr is a 38 y.o. female who presents [...] deficit hyperactivity disorder (ADHD), combined type ([facility] 07/04/2022 Episodic mood disorder ([facility] 07/04/2022 Generalized anxiety disorder ([facility] 07/04/2022 Panic disorder ([facility] 07/04/2022 Acquired scoliosis 09/09/2016 Allergic rhinitis 10/16/2019 Anxiety 01/31/2020 Asthma ([facility] 12/31/2014 Chronic fatigue syndrome 07/03/2016 Chronic gastritis without bleeding 12/28/2022 Irritable bowel syndrome 07/03/2016 Migraine without aura and without status migrainosus, not intractable ([facility] 09/19/2017 Mild intermittent asthma ([facility] 02/28/2021 Primary localized osteoarthrosis of ankle and foot 03/13/2019 Vitamin D deficiency 12/28/2022 Headache 06/28/2023 Inadequate sleep hygiene 06/28/2023 Migraine ([facility]) 06/28/2023 Tenosynovitis of foot 06/28/2023 Nausea and vomiting 06/28/2023 Common migraine with intractable migraine ([facility] 06/28/2023 Pain in limb 06/28/2023 Chronic tension-type headache, not intractable 06/28/2023 Sleep disturbance 06/28/2023 Insomnia, unspecified 06/28/2023 Other problems related to lifestyle 06/28/2023 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 08/10/2023 Resolved Ambulatory Problems Diagnosis Date Noted No Resolved Ambulatory Problems Past Medical History: Diagnosis Date Adenoma of left breast ADHD (attention deficit hyperactivity disorder) ([facility] Anemia Back pain Common migraine ([facility]) 08/17/2015 Depression ([facility] H/O colonoscopy H/O umbilical hernia repair Insomnia 06/25/2017 Migraines ([facility] Nausea with vomiting 08/17/2015 Tendonitis of right hand Tension headache 08/17/2015 HISTORY PAST MEDICAL HISTORY SOCIAL HISTORY Past Medical History: Diagnosis Date Adenoma of left breast removed 2013 ADHD (attention deficit hyperactivity disorder) ([facility]) Anemia Anxiety Asthma ([facility]) Back pain Common migraine ([facility]) 08/17/2015 Depression (CMS/HCC) H/O colonoscopy 2012 H/O umbilical hernia repair 2008 Headache 08/17/2015 Inadequate sleep hygiene 04/23/2018 Insomnia 06/25/2017 Migraine (CMS/HCC) 03/22/2017 Migraines ([facility]) Nausea with vomiting 08/17/2015 Pain in [...] nursing note reviewed. Exam conducted with a public aid eligibility assistant present. Vitals: Estimated body mass index is [...] without difficulty and patient was given [facility] order to have obtained. Sent Omeprazole [...] Raghavendra Vasquez DO documented in this encounter [facility] 01-01-2024 History of Present illness Narrative Images [...] visit. 20 weeks. 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 [employer]. Psychosocial stressors include . SUBJECTIVE: PAST MEDICAL HISTORY: Past Medical History: Diagnosis Date Adenoma of left breast removed 2013 ADHD (attention deficit hyperactivity disorder) ([facility]) Anemia Anxiety Asthma ([facility]) Back pain Common migraine ([facility]) 08/17/2015 Depression ([facility]) H/O colonoscopy 2012 H/O umbilical hernia repair 2007 Headache 08/17/2015 Inadequate sleep hygiene 04/23/2018 Insomnia 06/25/2017 Migraine ([facility]) 03/22/2017 Migraines ([facility]) Nausea with vomiting 08/17/2015 Pain in [...] and Time Memory/Concentration Short term intact and computer terminal operator intact Insight/Judgement Fair OBJECTIVE: Visit Vitals LMP [...] Visit time :32min documented in this encounter [facility] 11-28-2023 History of Present illness Narrative Reason [...] Attention deficit hyperactivity disorder (ADHD), combined type ([facility]) 07/04/2022 Episodic mood disorder ([facility]) 07/04/2022 Generalized anxiety disorder ([facility]) 07/04/2022 Panic disorder ([facility]) 07/04/2022 Acquired scoliosis 09/09/2016 Allergic rhinitis 10/16/2019 Anxiety 01/31/2020 Asthma ([facility]) 12/31/2014 Chronic fatigue syndrome 07/03/2016 Chronic gastritis without bleeding 12/28/2022 Irritable bowel syndrome 07/03/2016 Migraine without aura and without status migrainosus, not intractable ([facility]) 09/19/2017 Mild intermittent asthma ([facility]) 02/28/2021 Primary localized osteoarthrosis of ankle and foot 03/13/2019 Vitamin D deficiency 12/28/2022 Headache 06/28/2023 Inadequate sleep hygiene 06/28/2023 Migraine (CMS/HCC) 06/28/2023 Tenosynovitis of foot 06/28/2023 Nausea and vomiting 06/28/2023 Common migraine with intractable migraine ([facility]) 06/28/2023 Pain in limb 06/28/2023 Chronic tension-type headache, not intractable 06/28/2023 Sleep disturbance 06/28/2023 Insomnia, unspecified 06/28/2023 Other problems related to lifestyle 06/28/2023 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 08/10/2023 Resolved Ambulatory Problems Diagnosis Date Noted No Resolved Ambulatory Problems Past Medical History: Diagnosis Date Adenoma of left breast ADHD (attention deficit hyperactivity disorder) ([facility]) Anemia Back pain Common migraine ([facility]) 08/17/2015 Depression ([facility]) H/O colonoscopy H/O umbilical hernia repair Insomnia 06/25/2017 Migraines ([facility]) Nausea with vomiting 08/17/2015 Tendonitis of right hand Tension headache 08/17/2015 HISTORY PAST MEDICAL HISTORY SOCIAL HISTORY Past Medical History: Diagnosis Date Adenoma of left breast removed 2013 ADHD (attention deficit hyperactivity disorder) ([facility]) Anemia Anxiety Asthma ([facility]) Back pain Common migraine ([facility]) 08/17/2015 Depression ([facility]) H/O colonoscopy 2012 H/O umbilical hernia repair 2007 Headache 08/17/2015 Inadequate sleep hygiene 04/23/2018 Insomnia 06/25/2017 Migraine (CMS/HCC) 03/22/2017 Migraines ([facility]) Nausea with vomiting 08/17/2015 Pain in [...] nursing note reviewed. Exam conducted with a public aid eligibility assistant present. Vitals: Estimated body mass index is [...] or undercooked meat, and stay away from [facility]. Patient has been consulted regarding any [...] Raghavendra Vasquez DO documented in this encounter [facility] 11-27-2023 History of Present illness Narrative Images [...] work done. 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 Psychosocial stressors include . SUBJECTIVE: PAST [...] and Time Memory/Concentration Short term intact and computer terminal operator intact Insight/Judgement Good OBJECTIVE: Visit Vitals LMP [...] F/U 6 weeks documented in this encounter [facility] 11-01-2023 History of Present illness Narrative Reason [...] the following prescription(s): albuterol hfa, albuterol hfa, iyzlbnelea-epywtcayjtmxo-fnyiisyv , cyanocobalamin, d3-1000, dicyclomine, fluticasone, onabotulinumtoxina, ondansetron, promethazine, sertraline, and tizanidine. Medical History: Active Ambulatory Problems Diagnosis Date Noted Attention deficit hyperactivity disorder (ADHD), combined type (CMS/HCC) 07/04/2022 Episodic mood disorder (CMS/HCC) 07/04/2022 Generalized anxiety disorder ([facility]) 07/04/2022 Panic disorder ([facility]) 07/04/2022 Acquired scoliosis 09/09/2016 Allergic rhinitis 10/16/2019 Anxiety 01/31/2020 Asthma ([facility]) 12/31/2014 Chronic fatigue syndrome 07/03/2016 Chronic gastritis without bleeding 12/28/2022 Irritable bowel syndrome 07/03/2016 Migraine without aura and without status migrainosus, not intractable ([facility] 09/19/2017 Mild intermittent asthma ([facility]) 02/28/2021 Primary localized osteoarthrosis of ankle and foot 03/13/2019 Vitamin D deficiency 12/28/2022 Headache 06/28/2023 Inadequate sleep hygiene 06/28/2023 Migraine ([facility]) 06/28/2023 Tenosynovitis of foot 06/28/2023 Nausea and vomiting 06/28/2023 Common migraine with intractable migraine ([facility]) 06/28/2023 Pain in limb 06/28/2023 Chronic tension-type headache, not intractable 06/28/2023 Sleep disturbance 06/28/2023 Insomnia, unspecified 06/28/2023 Other problems related to lifestyle 06/28/2023 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 08/10/2023 Resolved Ambulatory Problems Diagnosis Date Noted No Resolved Ambulatory Problems Past Medical History: Diagnosis Date Adenoma of left breast ADHD (attention deficit hyperactivity disorder) ([facility]) Anemia Back pain Common migraine ([facility]) 08/17/2015 Depression ([facility] H/O colonoscopy H/O umbilical hernia repair Insomnia 06/25/2017 Migraines ([facility]) Nausea with vomiting 08/17/2015 Tendonitis of [...] pt to schedule US w/tbh. Pt desired [place] [employer] advised pt to wait until 10 [...] An Duffy MA documented in this encounter [facility] 10-19-2023 Telephone encounter Note Pt needs a letter stating that she was seen in office on 10/17 Please Fax to [phone] [facility] 10-19-2023 Miscellaneous Notes Pt needs a letter stating that she was seen in office on 10/17 Please Fax to [phone] documented in this encounter [facility] 10-18-2023 History of Present illness Narrative Tiki [...] 2 puffs, Inhalation, Every 4 hours PRN fluyikkswx-vcmadocfjjgjn-zezxidlc 50-325-40 MG tablet TAKE 1 TABLET BY [...] for further guidance. documented in this encounter [facility] 10-18-2023 History of Present illness Narrative Images from the original note were not included. Subjective Tiki Moeller is a 38 y.o. female. Patient was to be seen for botox injections but she just found out that she is . She was not planning but not preventing . She still has to see her pediatric acute care unit nurse. She has been receiving the Botox injections [...] during those pregnancies. She has having some early childhood coordinator sickness with nausea. Objective Neurological Exam Physical Exam No chief complaint on file. Subjective Tiki Moeller, 38 y.o., female HPI Past Medical History: Diagnosis Date Adenoma of left breast removed 2013 ADHD (attention deficit hyperactivity disorder) ([facility]) Anemia Anxiety Asthma ([facility]) Back pain Common migraine ([facility]) 08/17/2015 Depression ([facility]) H/O colonoscopy 2012 H/O umbilical hernia repair 2007 Headache 08/17/2015 Inadequate sleep hygiene 04/23/2018 Insomnia 06/25/2017 Migraine ([facility]) 03/22/2017 Migraines ([facility]) Nausea with vomiting 08/17/2015 Pain in [...] Return to clinic: documented in this encounter [facility] 08-03-2021 Note FINDINGS: Sonographic evaluation targeted to the painful palpable areas within the right breast. Multiple subcentimeter benign simple cysts within the right upper quadrant. Mild periareolar ductal dilatation (3-4 mm diameter). No suspicious solid nodule or mass. 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 Pre-screening form answers evaluated with patient. Patient denies current illness or allergic reaction to component of COVID-19 vaccine. Patient provided with current copy of EUA. [employer] Other Evaluation note* Diagnosis Attention deficit hyperactivity disorder (ADHD), combined type (CMS/HCC) Generalized anxiety disorder (CMS/HCC) Generalized anxiety disorder documented in this encounter [facility]* Diagnosis First trimester state, incidental documented in this encounter [facility]* Diagnosis 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)- Primary Generalized anxiety disorder (CMS/HCC) Generalized anxiety disorder Primary insomnia Persistent disorder of initiating or maintaining sleep , unspecified gestational age documented in this encounter [facility]* Diagnosis Generalized anxiety disorder (CMS/HCC)- Primary Generalized anxiety disorder documented in this encounter [facility] HealthcareEvaluation note* Diagnosis Well woman exam with routine gynecological exam Routine gynecological examination Second trimester state, incidental 18 weeks gestation of Vaginal discharge Leukorrhea, not specified as infective STD exposure Screening, , for anatomic survey Encounter for anatomic survey Gastroesophageal reflux in documented in this encounter [facility]Evaluation note* Diagnosis 23 weeks gestation of [...] Surgical History tibial and fibular sesmoid 10-15 [employer] Other Summary Purpose Family History No Family History Records FoundNo Family History Records FoundNo Family History Records FoundNo Family History Records FoundNo Family History Records Found Advance Directives No Advanced Directives Records FoundNo Advanced Directives Records FoundNo Advanced Directives Records FoundNo Advanced Directives Records FoundNo Advanced Directives Records Found Additional Source Comments INFORMATION SOURCE (unrecogn ized section and content) DATE CREATED AUTHOR 05/25/2021 [facility] DATE CREATED AUTHOR AUTHOR'S ORGANIZ ATION 08/04/2021 [facility] DATE CREATED AUTHOR AUTHOR'S ORGANIZ ATION 11/23/2021 [facility] DATE CREATED AUTHOR AUTHOR'S ORGANIZ ATION 12/19/2022 [facility] DATE CREATED AUTHOR AUTHOR'S ORGANIZ ATION 05/01/2024 [facility] dical Specialists EPIC REASON FOR VISIT (unrecogniz ed section and content) Reason Comments Routine Visit Reason Comments Med Management Follow-up Reason Comments Well Women Visit Routine Visit STI Screening Reason Comments Nausea/Vomiting In Reason Comments Amenorrhea Reason Comments Migraine Care Teams (unrecognized sec tion and content) Ciaio Counter Molder Relationship Specialty Start Date End Date Ysabel Cabral MD [address] [place] [address] PCP - General Family Medicine 07/29/22 Ale Zaldivar MD [address] [facility] [place] [address] PCP - [facility] 05/28/23 Ciaio Counter Molder Relationship Specialty Start Date End Date Ysabel Cabral MD [address] [facility] [place] [address] PCP - General Family Medicine 07/29/22 Ale Zaldivar MD [address] [facility] [place] [address] PCP - [facility] 05/28/23 Ciaio Counter Molder Relationship Specialty Start Date End Date Ysabel Cabral MD [address] [facility] [place] [address] PCP - General Family Medicine 07/29/22 Ale Zaldivar MD [address] [facility] [place] [address] PCP - [facility] 05/28/23 Ciaio Counter Molder Relationship Specialty Start Date End Date Ysabel Cabral MD [address] [place] [address] PCP - General Family Medicine 07/29/22 Ale Zaldivar MD [address] [place] [address] PCP - [facility] 05/28/23 Ciaio Counter Molder Relationship Specialty Start Date End Date Ysabel Cabral MD [address] [place] [address] PCP - General Family [facility] 07/29/22 Ale Zaldivar MD [address] [place] [address] PCP - [facility] 05/28/23 Ciaio Counter Molder Relationship Specialty Start Date End Date Ysabel Cabral MD [address] [place] [address] PCP - General [facility] 07/29/22 Ale Zaldivar MD [address] [place] [address] PCP - [facility] 05/28/23 Ciaio Counter Molder Relationship Specialty Start Date End Date Ysabel Cabral MD [address] [place] [address] PCP - General Family Medicine 07/29/22 Chloe Carvajal NP [address] [place] [address] PCP - [facility] 11/27/23 Ciaio Counter Molder Relationship Specialty Start Date End Date Ysabel Cabral MD [address] [place] [address] PCP - General Family Medicine 07/29/22 Chloe Carvajal, INCOME TAX EXPERT [address] [place] [address] PCP - [facility] 11/27/23 Ciaio Counter Molder Relationship Specialty Start Date End Date Ysabel Cabral MD [address] [place] [address] PCP - General Family Medicine 07/29/22 Chloe Carvajal, INCOME TAX EXPERT [address] [facility] [place] [address] PCP - [facility] 11/27/23 Ciaio Counter Molder Relationship Specialty Start Date End Date Ysabel Cabral MD [address] [place] [address] PCP - General Family Medicine 07/29/22 Chloe Carvajal, INCOME TAX EXPERT PCP - [facility] 11/27/23 Ciaio Counter Molder Relationship Specialty Start Date End Date Ysabel Cabral MD [address] [facility] [place] [address] PCP - General Family Medicine 07/29/22 Chloe Carvajal, INCOME TAX EXPERT PCP - [facility] 11/27/23 Ciaio Counter Molder Relationship Specialty Start Date End Date Ysabel Cabral MD [address] [place] [address] PCP - General Family Medicine 07/29/22 Ale Zaldivar MD [address] [place] [address] PCP - [facility] 05/28/23 Ciaio Counter Molder Relationship Specialty Start Date End Date Ysabel Cabral MD [address] [place] [address] PCP - General Family Medicine 07/29/22 Ale Zaldivar MD [address] [place] [address] PCP - [facility] 05/28/23 Ciaio Counter Molder Relationship Specialty Start Date End Date Ysabel Cabral MD [address] [place] [address] PCP - General Family Medicine 07/29/22 Ale Zaldivar MD [address] [place] [address] PCP - [facility] 05/28/23 Ciaio Counter Molder Relationship Specialty Start Date End Date Ysabel Cabral MD [address] [place] [address] PCP - General Family Medicine 07/29/22 Chloe Carvajal NP PCP - [facility] 11/27/23 Ciaio Counter Molder Relationship Specialty Start Date End Date Ysabel Cabral MD [address] [place] [address] PCP - General Family Medicine 07/29/22 Ale Zaldivar MD [address] [place] [address] PCP - [facility] 05/28/23 Ciaio Counter Molder Relationship Specialty Start Date End Date sYabel Cabral MD [address] [place] [address] PCP - General Family Medicine 07/29/22 Ale Zaldivar MD [address] [place] [address] PCP - [facility] 05/28/23 Ciaio Counter Molder Relationship Specialty Start Date End Date Ysabel Cabral MD [address] [place] [address] PCP - General Family Medicine 07/29/22 Chloe Carvajal, INCOME TAX EXPERT PCP - [facility] 11/27/23 Ciaio Counter Molder Relationship Specialty Start Date End Date Ysabel Cabral MD [address] [place] [address] PCP - General Family Medicine 07/29/22 Chloe Carvajal, INCOME TAX EXPERT PCP - [facility] 11/27/23 Ciaio Counter Molder Relationship Specialty Start Date End Date Ysabel Cabral MD [address] [place] [address] PCP - General Family Medicine 07/29/22 Chloe Carvajal, INCOME TAX EXPERT PCP [facility] 11/27/23 Ciaio Counter Molder Relationship Specialty Start Date End Date Ysabel Cabral MD [address] [place] [address] PCP - General [facility] 07/29/22 Chloe Carvajal, INCOME TAX EXPERT PCP - [facility] 11/27/23 Ciaio Counter Molder Relationship Specialty Start Date End Date Ysabel Cabral MD [address] [place] [address] PCP - [facility] 07/29/22 Chloe Carvajal, INCOME TAX EXPERT PCP - [facility] 11/27/23 Teresa Ornelas, FABRICATING MACHINE OPERATOR-CELL TESTER [address] [facility] [address] [place] [address] Nurse Practitioner Psychiatry 03/14/24 Ciaio Counter Molder Relationship Specialty Start Date End Date Ysabel Cabral MD [address] [place] [address] PCP - [facility] 07/29/22 Chloe Carvajal, INCOME TAX EXPERT PCP - [facility] 11/27/23 Teresa Ornelas, FABRICATING MACHINE OPERATOR-CELL TESTER [address] [facility] [address] [place] [address] Nurse Practitioner Psychiatry 03/14/24 Ciaio Counter Molder Relationship Specialty Start Date End Date Ysabel Cabral MD [address] [place] [address] PCP - [facility] 07/29/22 Chloe Carvajal, INCOME TAX EXPERT PCP - [facility] 11/27/23 Teresa Ornelas, FABRICATING MACHINE OPERATOR-CELL TESTER [address] [facility] [address] [place] [address] Nurse Practitioner Psychiatry 03/14/24 Ciaio Counter Molder Relationship Specialty Start Date End Date Ysabel Cabral MD [address] [facility] [place] [address] PCP - General Family Medicine 07/29/22 Ysabel Cabral MD [address] [facility] [place] [address] PCP - [facility] 02/27/24 Teresa Ornelas FABRICATING MACHINE OPERATOR-CELL TESTER [address] [place] [address] Nurse Practitioner Psychiatry 03/14/24 Ciaio Counter Molder Relationship Specialty Start Date End Date Ysabel Cabral MD [address] [facility] [place] [address] PCP - General [facility] Medicine 07/29/22 Ysabel Cabral MD [address] [facility] [place] [address] PCP - [facility] 02/27/24 Teresa Ornelas FABRICATING MACHINE OPERATOR-CELL TESTER [address] [place] [address] Nurse Practitioner Psychiatry 03/14/24 Ciaio Counter Molder Relationship Specialty Start Date End Date Ysabel Cabral MD [address] [facility] [place] [address] PCP - General Family Medicine 07/29/22 Ysabel Cabral MD [address] [place] [address] PCP - [facility] 02/27/24 Teresa Ornelas, FABRICATING MACHINE OPERATOR-CELL TESTER [address] [place] [address] Nurse Practitioner Psychiatry 03/14/24 Ciaio Counter Molder Relationship Specialty Start Date End Date Ysabel Cabral MD [address] [facility] [place] [address] PCP - General Family Medicine 07/29/22 Ysabel Cabral MD [address] [facility] [place] [address] PCP - [facility] 02/27/24 Teresa Ornelas, FABRICATING MACHINE OPERATOR-CELL TESTER [address] [address] Nurse Practitioner Psychiatry 03/14/24 Ciaio Counter Molder Relationship Specialty Start Date End Date Ysabel Cabral MD [address] [facility] [place] [address] PCP - General Family [facility] 07/29/22 Ysabel Cabral MD [address] [facility] [place] [address] PCP - [facility] 02/27/24 Teresa Ornelas, FABRICATING MACHINE OPERATOR-CELL TESTER [address] [address] Nurse Practitioner Psychiatry 03/14/24 FOR RECORDS PERTAINING [...] BE BASED ON THE PRIMARY CLINICAL RECORDS. [facility] provides no warranty or guarantee of the accuracy or completeness of information in this document.
[2024-05-09 16:38] VITALS: BP 117/71; PULSE 96
== END 2024-05-09 17:13 | disposition home or self-care (01) ==
LOC: FBCO 16:30 → FBC 16:33
PROVIDERS: PCP Family Medicine; Visit Provider Obstetrics & Gynecology
DX: O09.529 Supervision of elderly multigravida, unspecified trimester (principal)
CPT/HCPCS: 59025

== ENCOUNTER 2024-05-10 00:11 | Observation (INO) | payer OTHER, SELFPAY ==
--- OUTSIDE RECORDS SUMMARY | 2024-05-10 00:15 | XMS_ITS | CCD ---
Author Organization [facility] Care Team Providers Care Mining Consultant Name Role Phone Vicky Joe Unavailable WEST, DR SANON Admitting Unavailable KARASIK, DR SANON Attending Unavailable KARASIK, DR SANON Consulting Unavailable KARASIK, DR SANON Attending Unavailable KARASIK, DR SANON Consulting Unavailable KARASIK, DR SANON Admitting Unavailable CHLOE CARVAJAL Attending Unavailable CHLOE CARVAJAL Consulting Unavailable CHLOE CARVAJAL Admitting Unavailable Ysabel Cabral MD Primary Care Provider [phone] Ale Zaldivar MD Unavailable Dillon CHIEF CONTROLLER STATION, Chloe R Unavailable Dillon CHIEF CONTROLLER STATION, Chloe R Unavailable Jo Ann-Nosmahendra TECHNICAL SUPPORT 1 SOFTWARE ENGINEER-ELECTROTYPE MOLDERTeresa Unavailable Ysabel Cabral MD Unavailable RAGHAVENDRA VASQUEZ [...] source) Aspirin Drug Allergy shortness of breath [facility] Other (20 sources) Diclofenac Drug Allergy 07-05-19 Unknown [facility] Other (20 sources) Ibuprofen Drug Allergy 07-05-19 Unknown [facility] Other (20 sources) Naproxen Drug Allergy 07-05-19 Unknown [facility] Other (20 sources) NSAIDs Drug allergy 07-05-19 Unknown [facility] Other (1 source) Aspirin Drug Allergy 02-26-18 90 [facility] (1 source) cyclobenzaprine Drug Allergy 01-10-20 15 [facility] (1 source) Diclofenac Drug Allergy 01-10-20 15 [facility] (1 source) Ibuprofen Drug Allergy 08-04-19 16 [facility] (1 source) NSAIDs Drug allergy (disorder) 01-02-20 14 [facility] (20 sources) Aluminum aspirin Drug Allergy 07-05-19 23 [facility] (20 sources) Amitriptyline Drug Allergy 03-22-19 18 [facility] (20 sources) cyclobenzaprine Drug Allergy 01-24-20 16 [facility] (20 sources) Lamotrigine Allergy to substance 07-05-19 23 [facility] (20 sources) meloxicam Drug Allergy 07-05-19 23 Unknown [facility] (20 sources) Sertraline Drug Allergy 01-01-20 24 [facility] Medications Current Medications Medication Drug [...] Active take 1 capsule by [facility] every twenty-four hours Omeprazole 20 [...] 20 tablet 1 09/24/2023 11/28/2023 Discontinued (Other) [id number] 200 actuat albuterol 0.09 mg/actuat metered dose [...] US OB BPP W NON-STRESS on 04-29-2024 [place] [address] Ultrasound Report Signed Patient: TIKI MOELLER MR#: [id number] : 1985 Acct:[id number] Age/Sex: 38 / F ADM Date: 04/29/24 Loc: [place] [address]: Veda Sarmiento Ordering Physician: Veda Sarmiento Date of Service: 04/29/24 Procedure(s): US OB BPP w non-stress Accession Number(s): [id number] cc: Veda Sarmiento; YSABEL CABRAL [place] [id number] Patient Name: TIKI MOELLER MRN: [facility]H:[id number] date: 1985 Sex: F Assigned Patient Location: [facility] Current Patient Location: [facility] Accession/Order Number: [id number] Exam Date: 04/29/2024 16:11 Report Date: 04/29/2024 16:12 At the request of: EVDA SARMIETNO Procedure: US OB BPP w non-stress Biophysical profile. Reason for exam: Advanced maternal age. COMPARISON: BPP 04/22/2024 TECHNIQUE: Transabdominal imaging of the gravid uterus was obtained. FINDINGS: Matrix Supervisor reports the biophysical profile is 8 out of 8. JT is normal at 17.9 cm. heart rate 129bpm. US/US OB BPP w non-stress IMPRESSION: BPP 8 out of 8. Impression dictated by: Alexei Ibrahim Jr. DTiOTi04/29/2024 4:12 PM Dictation Location: RADIO-PC-23 Electronically authenticated by: [id number] Y Date: 04/29/2024 16:12 Dictated By: Alexei Ibrahim M.D. Signed By: 04/29/241613 DD/ 11 TD/TT: Tire Groover: [facility] Radiology, Radiologist, - 04/29/2024 [place] [address] Ultrasound Report Signed Patient: TIKI MOELLER MR#: [id number] : 1985 Acct:[id number] Age/Sex: 38 / F ADM Date: 04/29/24 Loc: [place] [address]: Veda Sarmiento Ordering Physician: Veda Sarmiento Date of Service: 04/29/24 Procedure(s): US OB BPP w non-stress Accession Number(s): [id number] cc: Veda Sarmiento; YSABEL CABRAL [place] [address] Patient Name: TIKI MOELLER MRN: [facility]:[id number] date: 1985 Sex: F Assigned Patient Location: [facility] Current Patient Location: [facility] Accession/Order Number: [id number] Exam Date: 04/29/2024 16:11 Report Date: 04/29/2024 16:12 At the request of: VEDA SARMIENTO Procedure: US OB BPP w non-stress Biophysical profile. Reason for exam: Advanced maternal age. COMPARISON: BPP 04/22/2024 TECHNIQUE: Transabdominal imaging of the gravid uterus was obtained. FINDINGS: Matrix Supervisor reports the biophysical profile is 8 out of 8. JT is normal at 17.9 cm. heart rate 129bpm. US/US OB BPP w non-stress IMPRESSION: BPP 8 out of 8. Impression dictated by: Alexei Ibrahim Jr., DTiOTi04/29/2024 4:12 PM Dictation Location: [facility]-PC-23 Electronically authenticated by: [id number] Y Date: 04/29/2024 16:12 Dictated By: Alexei Ibrahim M.D. Signed By: 04/29/241613 DD/ 11 TD/TT: Tire Groover: [facility] Radiology Study observation (narrative) [facility] US OB BPP W NON-STRESS Ordered By: Radiologist Radiology on 04-29-2024 [facility] Work Phone: Urinalysis macro (dipstick) panel (U)on 04-29-2024 Bilirubin, UA Negative Negative - 4(70) +++ mg/dL [facility] Blood, UA Negative Negative - 50 Armand/mcL [facility] Clarity, UA Clear [facility] Color, UA Yellow [facility] Glucose, UA Negative Negative - 2000(110) ++++ mg/dL [facility] Interpretation and review of laboratory results Abnormal [facility] Ketones, UA Negative Negative - 160(16) ++++ mg/dL [facility] Leukocytes, UA Trace Negative - 500+++ Doe/mcL [facility] Nitrite, UA Negative Negative - Positive [facility] pH, UA 7 5 - 9 [facility] Protein, UA Positive Negative - 2000(20) ++++ mg/dL [facility] Comment on above: 30mg/dL Spec Grav, UA 1.02 1 - 1.03 [facility] Urobilinogen, UA 1.0 0.2 - 12 mg/dL [facility] US OB BPP W NON-STRESS on 04-22-2024 [place] [id number] Ultrasound Report Signed Patient: TIKI MOELLER MR#: [id number] : 1985 Acct:[id number] Age/Sex: 38 / F ADM Date: 04/22/24 Loc: US Attending Dr: Veda Sarmiento Ordering Physician: Veda Sarmiento Date of Service: 04/22/24 Procedure(s): US OB BPP w non-stress Accession Number(s): [id number] cc: Veda Sarmiento; YSABEL CABRAL [place] [id number] Patient Name: TIKI MOELLER MRN: [id number]:[id number] date: 1985 Sex: F Assigned Patient Location: [facility] Current Patient Location: Accession/Order Number: [id number] Exam Date: 04/22/2024 23:02 Report Date: 04/22/2024 23:05 At the request of: VEDA SARMIENTO Procedure: US OB BPP w non-stress Biophysical profile. Reason for exam: Advanced maternal age. COMPARISON: BPP 04/15/2024. TECHNIQUE: Transabdominal imaging of the gravid uterus was obtained. FINDINGS: Matrix Supervisor reports the biophysical profile is 8 out of 8. JT is normal at 13.9 cm. heart rate 156 bpm. US/US OB BPP w non-stress IMPRESSION: BPP 8 out of 8. Impression dictated by: Alexei Ibrahim Jr., D.O.04/22/2024 11:05 PM Dictation Location: [place] [address] Electronically authenticated by: [id number] Y Date: 04/22/2024 23:05 Dictated By: Alexei Ibrahim M.D. Signed By: 04/22/242307 DD/ 04 TD/TT: Tire Groover: [facility] Radiology, Radiologist, MD - 04/22/2024 The [place] [id number] Ultrasound Report Signed Patient: TIKI MOELLER MR#: [id number] : 1985 Acct:[id number] Age/Sex: 38 / F ADM Date: 04/22/24 Loc: US Attending Dr: Veda Sarmiento Ordering Physician: Veda Sarmiento Date of Service: 04/22/24 Procedure(s): US OB BPP w non-stress Accession Number(s): [id number] cc: Veda Sarmiento; YSABEL CABRAL [address] [address] Patient Name: TIKI MOELLER MRN: [facility]:[id number] date: 1985 Sex: F Assigned Patient Location: [facility] Current Patient Location: Accession/Order Number: [id number] Exam Date: 04/22/2024 23:02 Report Date: 04/22/2024 23:05 At the request of: VEDA SARMIENTO Procedure: US OB BPP w non-stress Biophysical profile. Reason for exam: Advanced maternal age. COMPARISON: BPP 04/15/2024. TECHNIQUE: Transabdominal imaging of the gravid uterus was obtained. FINDINGS: Matrix Supervisor reports the biophysical profile is 8 out of 8. JT is normal at 13.9 cm. heart rate 156 bpm. US/US OB BPP w non-stress IMPRESSION: BPP 8 out of 8. Impression dictated by: Alexei Ibrahim Jr., D.O.04/22/2024 11:05 PM Dictation Location: [place] [address] Electronically authenticated by: [id number] Y Date: 04/22/2024 23:05 Dictated By: Alexei Ibrahim M.D. Signed By: 04/22/242307 DD/ 04 TD/TT: Tire Groover: [facility] Radiology Study observation (narrative) [facility] US OB BPP W NON-STRESS Ordered By: Radiologist Radiology on 04-22-2024 [facility] Work Phone: US OB BPP W NON-STRESS on 04-15-2024 [place] [address] Ultrasound Report Signed Patient: TIKI MOELLER MR#: [id number] : 1985 Acct:[id number] Age/Sex: 38 / F ADM Date: 04/15/24 Loc: [place] [address]- Attending Dr: Raghavendra Vasquez D.O. Ordering Physician: Raghavendra Vasquez D.O. Date of Service: 04/15/24 Procedure(s): US OB BPP w non-stress Accession Number(s): [id number] cc: YSABEL CABRAL ; Raghavendra Vasquez D.O. The [place] [id number] Patient Name: TIKI MOELLER MRN: [id number]:[id number] date: 1985 Sex: F Assigned Patient Location: [facility] Current Patient Location: [facility] Accession/Order Number: [id number] Exam Date: 04/15/2024 16:26 Report Date: 04/15/2024 16:31 At the request of: RAGHAVENDRA VASQUEZ DO Procedure: US OB BPP w non-stress BIOPHYSICAL PROFILE: CLINICAL INFORMATION: Multigravida of advanced maternal age TECHNIQUE: Multiple ultrasonographic scans of the lower abdomen and pelvis were obtained. The fetus is in the cephalic presentation. The measurements are consistent with a 33 week 3 day gestation. The heart rate [id number] beats per minute. FINDINGS: TONE: 1 or [...] Shelli Mcghee M.D.04/15/2024 4:31 PM Dictation Location: [place] [address] Electronically authenticated by: [id number] Y Date: 04/15/2024 16:31 Dictated By: Shelli Mcghee M.D. Signed By: 04/15/24 1633 DD/ 1631 TD/TT: Tire Groover: [facility] Radiology, Radiologist, - 04/15/2024 [place] [address] Ultrasound Report Signed Patient: TIKI MOELLER MR#: [id number] : 1985 Acct:[id number] Age/Sex: 38 / F ADM Date: 04/15/24 Loc: [facility] 250-[address]: Raghavendra Vasquez D.O. Ordering Physician: Raghavendra Vasquez D.O. Date of Service: 04/15/24 Procedure(s): US OB BPP w non-stress Accession Number(s): [id number] cc: YSABEL CABRAL ; Raghavendra Vasquez D.O. The [place] [id number] Patient Name: TIKI MOELLER MRN: [facility]:[id number] date: 1985 Sex: F Assigned Patient Location: [facility] Current Patient Location: [facility] Accession/Order Number: [id number] Exam Date: 04/15/2024 16:26 Report Date: 04/15/2024 16:31 At the request of: RAGHAVENDRA VASQUEZ DO Procedure: US OB BPP w non-stress BIOPHYSICAL PROFILE: CLINICAL INFORMATION: Multigravida of advanced maternal age TECHNIQUE: Multiple ultrasonographic scans of the lower abdomen and pelvis were obtained. The fetus is in the cephalic presentation. The measurements are consistent with a 33 week 3 day gestation. The heart rate [id number] beats per minute. FINDINGS: TONE: 1 or [...] Shelli Mcghee M.D.04/15/2024 4:31 PM Dictation Location: [place] [address] Electronically authenticated by: [id number] Y Date: 04/15/2024 16:31 Dictated By: Shelli Mcghee M.D. Signed By: 04/15/24 163 DD/ 163 TD/TT: Tire Groover: [facility] Radiology Study observation (narrative) [facility] US OB BPP W NON-STRESS Ordered By: Radiologist Radiology on 04-15-2024 [facility] Work Phone: US OB GROWTHon 04-15-2024 [place] [address] Ultrasound Report Signed Patient: TIKI MOELLER MR#: [id number] : 1985 Acct:[id number] Age/Sex: 38 / F ADM Date: 04/15/24 Loc: [facility] 250-[address]: Raghavendra Vasquez D.O. Ordering Physician: Raghavendra Vasquez D.O. Date of Service: 04/15/24 Procedure(s): US OB growth Accession Number(s): [id number] cc: YSABEL CABRAL ; Raghavendra Vasquez D.O. [place] [address] Patient Name: TIKI MOELLER MRN: [id number] date: 1985 Sex: F Assigned Patient Location: [facility] Current Patient Location: [facility] Accession/Order Number: [id number] Exam Date: 04/15/2024 16:31 Report Date: 04/15/2024 [...] Shelli Mcghee M.D.04/15/2024 4:37 PM Dictation Location: [place] [address] Electronically authenticated by: [id number] Y Date: 04/15/2024 16:37 Dictated By: Shelli Mcghee M.D. Signed By: 04/15/24 1640 DD/ 1637 TD/TT: Tire Groover: [facility] Radiology, Radiologist, - 04/15/2024 [place] [address] Ultrasound Report Signed Patient: TIKI MOELLER MR#: [id number] : 1985 Acct:[id number] Age/Sex: 38 / F ADM Date: 04/15/24 Loc: [facility] 250-[address]: Raghavendra Vasquez D.O. Ordering Physician: Raghavendra Vasquez D.O. Date of Service: 04/15/24 Procedure(s): US OB growth Accession Number(s): [id number] cc: YSABEL CABRAL ; Raghavendra Vasquez D.O. The [place] [address] Patient Name: TIKI MOELLER MRN: [facility]:[id number] date: 1985 Sex: F Assigned Patient Location: [facility] Current Patient Location: [facility] Accession/Order Number: [id number] Exam Date: 04/15/2024 16:31 Report Date: 04/15/2024 [...] Shelli Mcghee M.D.04/15/2024 4:37 PM Dictation Location: [place] [address] Electronically authenticated by: [id number] Y Date: 04/15/2024 16:37 Dictated By: Shelli Mcghee M.D. Signed By: 04/15/24 1640 DD/ 1637 TD/TT: Tire Groover: [facility] Radiology Study observation (narrative) [facility] US OB GROWTHOrdered By: Liang ologist Radiology on 04-15-2024 [facility] Work Phone: Urinalysis macro (dipstick) panel (U)on 04-08-2024 Bilirubin, UA Negative Negative - 4(70) +++ mg/dL [facility] Blood, UA Negative Negative - 50 Armand/mcL [facility] Clarity, UA Clear [facility] Color, UA Yellow [facility] Glucose, UA Negative Negative - 1999(110) ++++ mg/dL [facility] Interpretation and review of laboratory results Abnormal [facility] Ketones, UA Negative Negative - 160(16) ++++ mg/dL [facility] Leukocytes, UA Negative Negative - 500+++ Doe/mcL [facility] Nitrite, UA Negative Negative - Positive [facility] pH, UA 7 5 - 9 [facility] Protein, UA Trace Negative - 2000(20) ++++ mg/dL [facility] Spec Grav, UA 1.025 1 - 1.03 [facility] Urobilinogen, UA 1.0 0.2 - 12 mg/dL [facility] US OB GROWTHon 03-25-2024 [place] [address] Ultrasound Report Signed Patient: TIKI MOELLER MR#: [id number] : 1985 Acct:[id number] Age/Sex: 38 / F ADM Date: 03/25/24 Loc: US Attending Dr: Raghavendra Vasquez D.O. Ordering Physician: Raghavendra Vasquez D.O. Date of Service: 03/25/24 Procedure(s): US OB growth Accession Number(s): [id number] cc: YSABEL CABRAL ; Raghavendra Vasquez D.O. The [place] [id number] Patient Name: TIKI MOELLER MRN: [facility]:[id number] date: 1985 Sex: F Assigned Patient Location: US Current Patient Location: US Accession/Order Number: [id number] Exam Date: 03/25/2024 11:02 Report Date: 03/25/2024 [...] Signed By: 03/25/24 1150 DD/ 1147 TD/TT: Tire Groover: [facility] Radiology, Radiologist, - 03/25/2024 [place] [address] Ultrasound Report Signed Patient: TIKI MOELLER MR#: [id number] : 1985 Acct:[id number] Age/Sex: 38 / F ADM Date: 03/25/24 Loc: US Attending Dr: Raghavendra Vasquez D.O. Ordering Physician: Raghavendra Vasquez D.O. Date of Service: 03/25/24 Procedure(s): US OB growth Accession Number(s): [id number] cc: YSABEL CABRAL ; Raghavendra Vasquez D.O. [place] [address] Patient Name: TIKI MOELLER MRN: [id number]:[id number] date: 1985 Sex: F Assigned Patient Location: US Current Patient Location: US Accession/Order Number: [id number] Exam Date: 03/25/2024 11:02 Report Date: 03/25/2024 [...] Signed By: 03/25/24 1150 DD/ 1147 TD/TT: Tire Groover: [facility] Radiology Study observation (narrative) [facility] US OB GROWTHOrdered By: Liang ologist Radiology on 03-25-2024 [facility] Work Phone: Urinalysis macro (dipstick) panel (U)on 03-25-2024 Bilirubin, UA Positive Negative - 4(70) +++ mg/dL [facility] Blood, UA Negative Negative - 50 Armand/mcL [facility] Clarity, UA Clear [facility] Color, UA Yellow [facility] Glucose, UA Negative Negative - 1999(110) ++++ mg/dL [facility] Interpretation and review of laboratory results Abnormal [facility] Ketones, UA Positive Negative - 160(16) ++++ mg/dL [facility] Leukocytes, UA Negative Negative - 500+++ Doe/mcL [facility] Nitrite, UA Positive Negative - Positive [facility] pH, UA 6.5 5 - 9 [facility] Protein, UA Positive Negative - 1999(20) ++++ mg/dL [facility] Spec Grav, UA 1.025 1 - 1.03 [facility] Urobilinogen, UA 1.0 0.2 - 12 mg/dL [facility] Urinalysis macro (dipstick) panel (U)on 03-11-2024 Bilirubin, UA Negative Negative - 4(70) +++ mg/dL [facility] Blood, UA Negative Negative - 50 Armand/mcL [facility] Clarity, UA Clear [facility] Color, UA Yellow [facility] Glucose, UA Negative Negative - 1999(110) ++++ mg/dL [facility] Interpretation and review of laboratory results Abnormal [facility] Ketones, UA Negative Negative - 160(16) ++++ mg/dL [facility] Leukocytes, UA Negative Negative - 500+++ Doe/mcL [facility] Nitrite, UA Negative Negative - Positive [facility] pH, UA 7 5 - 9 [facility] Protein, UA Positive Negative - 1999(20) ++++ mg/dL [facility] Comment on above: 30 Spec Grav, UA 1.025 1 - 1.03 [facility] Urobilinogen, UA 0.2 0.2 - 12 mg/dL [facility] ALL CBC WITH AUTO DIFFon BASOPHILS ABSOLUTE AUTO 0 [facility] Basophils/100 WBC (Bld) 0.2 % 0.2 - 2.0 % [facility] Eosinophils/100 WBC (Bld) 0.6 % Low 0.9 - 7.0 % [facility] Erythrocyte distribution width (RBC) [Ratio] 13 % 11.0 - 15.0 % [facility] Hematocrit (Bld) [Volume fraction] 32.2 % Low 36.0 - 48.0 % [facility] Hemoglobin (Bld) [Mass/Vol] 10.3 g/dL Low 12.0 - 16.0 g/dL [facility] IMMATURE GRANULOCYTES ABS AUTO 0.06 High [facility] Immature granulocytes/100 WBC (Bld) 0.6 % High 0.0 - 0.5 % [facility] Interpretation and review of laboratory results Abnormal [facility] LYMPHOCYTES ABSOLUTE AUTO 1.8 [facility] Lymphocytes/100 WBC (Bld) 19.1 % Low 20.5 - 60.0 % [facility] MCH (RBC) [Entitic mass] 25.9 pg Low 26.7 - 34.0 pg [facility] MCHC (RBC) [Mass/Vol] 32 g/dL 29.9 - 35.2 g/dL [facility] MCV (RBC) [Entitic vol] 81.1 fL 81.0 - 99.0 fL [facility] MONOCYTES ABSOLUTE AUTO 0.5 [facility] Monocytes/100 WBC (Bld) 5.5 % 1.7 - 12.0 % [facility] NEUTROPHILS ABSOLUTE AUTO 7 High [facility] Neutrophils/100 WBC (Bld) 74 % 43.0 - 75.0 % [facility] Platelet mean volume (Bld) [Entitic vol] 10.7 fL 9.5 - 13.5 fL [facility] EO # 0.1 [facility] [address]T [address] [facility] RBC 3.97 Low [facility] WBC 9.4 [facility] UA (CLEAN/CATCH) ELECTROTYPE MOLDER/LA RO IF IND.on 03-07-2024 BILIRUBIN URINE Negative NEGATIVE [facility] BLOOD URINE Negative NEGATIVE [facility] Clarity (U) CLEAR CLEAR [facility] Color (U) YELLOW YELLOW [facility] GLUCOSE URINE UA Negative NEGATIVE mg/dL [facility] Interpretation and review of laboratory results Abnormal [facility] Ketones Ql (U) TRACE Abnormal NEGATIVE mg/dL [facility] Leukocyte esterase Test strip Ql (U) Negative NEGATIVE [facility] NITRITE URINE Negative NEGATIVE [facility] pH (U) 7.5 [pH] 5.0 - 9.0 [facility] PROTEIN URINE TRACE NEG/TRACE mg/dL [facility] SPECIFIC GRAVITY URINE 1.025 1.005 - 1.025 [facility] URINE MICROSCOPIC INDICATED NO [facility] UROBILINOGEN URINE 1.0 EU/dL 0.2 - 1.0 EU/dL [facility] Urinalysis macro (dipstick) panel (U)on 02-11-2024 Bilirubin, UA Negative Negative - 4(70) +++ mg/dL [facility] Blood, UA Negative Negative - 50 Armand/mcL [facility] Clarity, UA Clear [facility] Color, UA Yellow [facility] Glucose, UA Negative Negative - 1999(110) ++++ mg/dL [facility] Interpretation and review of laboratory results Abnormal [facility] Ketones, UA Negative Negative - 160(16) ++++ mg/dL [facility] Leukocytes, UA Negative Negative - 500+++ Doe/mcL [facility] Nitrite, UA Negative Negative - Positive [facility] pH, UA 7.5 5 - 9 [facility] Protein, UA Trace Negative - 1999(20) ++++ mg/dL [facility] Spec Grav, UA 1.015 1 - 1.03 [facility] Urobilinogen, UA 0.2 0.2 - 12 mg/dL [facility] IGP,APTIMA HPV,AGE GDLNon AGE GDLN ACOG TESTING Note . [facility] Comment on above: TESTS RESULT FLAG UN ITS REF RANGE LAB Clinician Provided Cytology Information Source.............Cervix Other.............. No. of containers..01 ThinPrep Vial Age Algo ACOG Beverly... FLAG LEGEND: L-Low Normal,H-High Normal,LL-Alert Low,HH-Alert High <-Panic Low,>-Panic High,A-Abnormal,AA-Critical Abnormal Performed at: 01 =[address] [address] Judith Ventura MD, HPV APTIMA Negative Negative [facility] Comment on above: This nucleic acid am plification test detects fourteen high- risk HPV types (16,18,31,33,35,39,45,51,52,56,58,59,66,68) without differentiation. Performed at: =[address] [id number] It Analyst: Judith Ventura MD, Phone: [phone] Performed at: [address] [id number] It Analyst: Judith Ventura MD, Phone: [phone] IGP, APTIMA HPV, RFX 16/18,45 Note . [facility] Comment on above: TESTS RESULT FLAG UN ITS REF RANGE LAB DIAGNOSIS: 02 NEGATIVE FOR INTRAEPITHELIAL LESION OR MALIGNANCY. Specimen adequacy: 02 Satisfactory for evaluation. Endocervical and/or squamous metaplastic cells (endocervical component) are present. Performed by: Kae Frank, Typewriter Operator Automatic (ASCP) . 02 Note: Note 02 The [...] <-Panic Low,>-Panic High,A-Abnormal,AA-Critical Abnormal Performed at: [address] [address] Judiht Ventura MD, SPATULA-ALONE CERVIX [facility] RECURRENT VAGINITIS (HTRX)on 01-11-2024 ATOPOBIUM VAGINAE 0 [facility] ATOPOBIUM VAGINAE Not detected [facility] BVAB 2,3 (BACTERIAL VAGINOSIS ASSOCIATED BACTERIA 2, 3); MOBILUNCUS SPP 0 [facility] BVAB 2,3 (BACTERIAL VAGINOSIS ASSOCIATED BACTERIA 2, 3); MOBILUNCUS SPP Not detected [facility] LOC ALBICANS, PARAPSILOSIS, TROPICALIS 0 [facility] LOC ALBICANS, PARAPSILOSIS, TROPICALIS Not detected [facility] LOC GLABRATA 0 [facility] LOC GLABRATA Not detected [facility] LOC KRUSEI 0 [facility] LOC KRUSEI Not detected [facility] CHLAMYDIA TRACHOMATIS 0 [facility] CHLAMYDIA TRACHOMATIS Not detected [facility] GARDNERELLA VAGINALIS 0 [facility] GARDNERELLA VAGINALIS Not detected [facility] MEGASPHAERA (TYPES 1, 2) 0 [facility] Healthcare MEGASPHAERA (TYPES 1, 2) Not detected [facility] MYCOPLASMA GENITALIUM 0 [facility] MYCOPLASMA GENITALIUM Not detected [facility] NEISSERIA GONORRHOEAE 0 [facility] NEISSERIA GONORRHOEAE Not detected [facility] TRICHOMONAS VAGINALIS 0 [facility] TRICHOMONAS VAGINALIS Not detected [facility] Urinalysis macro (dipstick) panel (U)on 01-10-2024 Bilirubin, UA Negative Negative - 4(70) +++ mg/dL [facility] Blood, UA Negative Negative - 50 Armand/mcL [facility] Clarity, UA Clear [facility] Color, UA Yellow [facility] Glucose, UA Negative Negative - 1999(110) ++++ mg/dL [facility] Interpretation and review of laboratory results Abnormal [facility] Ketones, UA Positive Negative - 160(16) ++++ mg/dL [facility] Leukocytes, UA Negative Negative - 500+++ Doe/mcL [facility] Nitrite, UA Negative Negative - Positive [facility] pH, UA 7 5 - 9 [facility] Protein, UA Negative Negative - 2000(20) ++++ mg/dL [facility] Spec Grav, UA 1.015 1 - 1.03 [facility] Urobilinogen, UA 1.0 0.2 - 12 mg/dL [facility] ALL CBC WITH AUTO DIFFon BASOPHILS ABSOLUTE AUTO 0.0 [facility] Basophils/100 WBC (Bld) 0.2 % 0.2 - 2.0 % [facility] Eosinophils/100 WBC (Bld) 2.3 % 0.9 - 7.0 % [facility] Erythrocyte distribution width (RBC) [Ratio] 12.3 % 11.0 - 15.0 % [facility] Hematocrit (Bld) [Volume fraction] 37.1 % 36.0 - 48.0 % [facility] Hemoglobin (Bld) [Mass/Vol] 12.3 g/dL 12.0 - 16.0 g/dL [facility] IMMATURE GRANULOCYTES ABS AUTO 0.04 High [facility] Immature granulocytes/100 WBC (Bld) 0.4 % 0.0 - 0.5 % [facility] Interpretation and review of laboratory results Abnormal [facility] LYMPHOCYTES ABSOLUTE AUTO 2.7 [facility] Lymphocytes/100 WBC (Bld) 28.4 % 20.5 - 60.0 % [facility] MCH (RBC) [Entitic mass] 28.0 pg 26.7 - 34.0 pg [facility] MCHC (RBC) [Mass/Vol] 33.2 g/dL 29.9 - 35.2 g/dL [facility] MCV (RBC) [Entitic vol] 84.3 fL 81.0 - 99.0 fL [facility] MONOCYTES ABSOLUTE AUTO 0.5 [facility] Monocytes/100 WBC (Bld) 5.0 % 1.7 - 12.0 % [facility] NEUTROPHILS ABSOLUTE AUTO 6.0 [facility] Neutrophils/100 WBC (Bld) 63.7 % 43.0 - 75.0 % [facility] Platelet mean volume (Bld) [Entitic vol] 10.4 fL 9.5 - 13.5 fL [facility] TBH EO # 0.2 [facility] TB PLT 253 [facility] RBC 4.40 [facility] WBC 9.4 [facility] Urinalysis macro (dipstick) panel (U)on 11-28-2023 Bilirubin, UA Negative Negative - 4(70) +++ mg/dL [facility] Blood, UA Negative Negative - 50 Armand/mcL [facility] Clarity, UA Clear [facility] Color, UA Yellow [facility] Glucose, UA Negative Negative - 1999(110) ++++ mg/dL [facility] Interpretation and review of laboratory results Normal [facility] Ketones, UA Negative Negative - 160(16) ++++ mg/dL [facility] Leukocytes, UA Negative Negative - 500+++ Doe/mcL [facility] Nitrite, UA Negative Negative - Positive [facility] pH, UA 7.0 5 - 9 [facility] Protein, UA Negative Negative - 2000(20) ++++ mg/dL [facility] Spec Grav, UA 1.025 1 - 1.03 [facility] Urobilinogen, UA 1.0 0.2 - 12 mg/dL [facility] URINE CULTURE, ROUTINEon Bacteria identified Cx Nom (U) Urine Culture, Routine [facility] Bacteria identified Cx Nom (U) Culture shows less than 10,000 colony forming units of bacteria per [facility] Bacteria identified Cx Nom (U) milliliter of urine. This colony count is not generally considered [facility] Bacteria identified Cx Nom (U) to be clinically significant. [facility] Bacteria identified Cx Nom (U) Performed at: [facility] Bacteria identified Cx Nom (U) [address], [place] [id number] [facility] Bacteria identified Cx Nom (U) It Analyst: Michael Berry PhD, Phone: [phone] [facility] HCG ( test) Ql (U)o n 11-01-2023 Interpretation and review of laboratory results Abnormal [facility] Preg Test, Ur Positive [facility] Urinalysis macro (dipstick) panel (U)on 11-01-2023 Bilirubin, UA Negative Negative - 4(70) +++ mg/dL [facility] Blood, UA Negative Negative - 50 Armand/mcL [facility] Clarity, UA Clear [facility] Color, UA Yellow [facility] Glucose, UA Negative Negative - 1999(110) ++++ mg/dL [facility] Interpretation and review of laboratory results Normal [facility] Ketones, UA Negative Negative - 160(16) ++++ mg/dL [facility] Leukocytes, UA Negative Negative - 500+++ Doe/mcL [facility] Nitrite, UA Negative Negative - Positive [facility] pH, UA 6.0 5 - 9 [facility] Protein, UA Negative Negative - 1999(20) ++++ mg/dL [facility] Spec Grav, UA 1.020 1 - 1.03 [facility] Urobilinogen, UA 0.2 0.2 - 12 mg/dL [facility] XR CERVICAL SPINE AP/LAT/FLE X/EXT/OBLIQUESon 08-16-2023 [...] [Mass/Vol] 8.9 mg/dL Normal (8.6 - 10.6) [facility] Comment on above: Performed By: #### C BC/2A, ESRCRP, CCP, HBC-M, HBSAG, HCV, CA, MG, RHF, URCA #### [facility] [address] [facility], [id number] CBC, ALB, ALT, AST, ALK AND CREAon 12-18-2022 Albumin [Mass/Vol] 5.0 g/dL Normal (3.5 - 5.0) [facility] Comment on above: Order Comment: FACIL ITY: [facility] [id number] Performed By: #### C BC/2A, ESRCRP, CCP, HBC-M, HBSAG, HCV, CA, MG, RHF, URCA #### [facility] [address] [facility], [id number] ALK PHOS 60 U/L Normal (38 - 126) [facility] Comment on above: Order Comment: FACIL ITY: [facility] [id number] Performed By: #### C BC/2A, ESRCRP, CCP, HBC-M, HBSAG, HCV, CA, MG, RHF, URCA #### [facility] [address] [facility], [id number] ALT [Catalytic activity/Vol] 34 U/L Normal (1 - 35) [facility] Comment on above: Order Comment: FACIL ITY: [facility] [id number] Performed By: #### C BC/2A, ESRCRP, CCP, HBC-M, HBSAG, HCV, CA, MG, RHF, URCA #### [facility] [address] [facility], [id number] AST [Catalytic activity/Vol] 34 U/L Normal (15 - 46) [facility] Comment on above: Order Comment: FACIL ITY: [facility] [phone] Performed By: #### C BC/2A, ESRCRP, CCP, HBC-M, HBSAG, HCV, CA, MG, RHF, URCA #### [facility] [address] [facility], [address] Creatinine [Mass/Vol] 0.61 mg/dL Normal (0.52 - 1.04) [facility] Comment on above: Order Comment: FACIL ITY: [facility] [phone] Performed By: #### C BC/2A, ESRCRP, CCP, HBC-M, HBSAG, HCV, CA, MG, RHF, URCA #### [facility] [address] [facility], [id number] GFR- AMER 135.1 ML/M1.7 Normal (60.0 - 140.1) [facility] Comment on above: Order Comment: FACIL ITY: [facility] [id number] Performed By: #### C BC/2A, ESRCRP, CCP, HBC-M, HBSAG, HCV, CA, MG, RHF, URCA #### [facility] [address] [facility], [id number] GFR-NON AFRIC-AMER 111.6 ML/M1.7 Normal (60.0 - 115.8) [facility] Comment on above: Order Comment: FACIL ITY: [facility] [id number] Performed By: #### C BC/2A, ESRCRP, CCP, HBC-M, HBSAG, HCV, CA, MG, RHF, URCA #### [facility] [address] [facility], [address] Hematocrit (Bld) [Volume fraction] 41.5 % Normal (37.0 - 47.0) [facility] Comment on above: Order Comment: FACIL ITY: [facility] [id number] Performed By: #### C BC/2A, ESRCRP, CCP, HBC-M, HBSAG, HCV, CA, MG, RHF, URCA #### [facility] [address] [facility], [phone] Hemoglobin (Bld) [Mass/Vol] 13.5 g/dL Normal (12.0 - 16.0) [facility] Comment on above: Order Comment: FACIL ITY: [facility] [id number] Performed By: #### C BC/2A, ESRCRP, CCP, HBC-M, HBSAG, HCV, CA, MG, RHF, URCA #### [facility] [address] [facility], [address] MCH (RBC) [Entitic mass] 28.7 pg Normal (27.0 - 33.0) [facility] Comment on above: Order Comment: FACIL ITY: [facility] [id number] Performed By: #### C BC/2A, ESRCRP, CCP, HBC-M, HBSAG, HCV, CA, MG, RHF, URCA #### [facility] [address] [facility], [address] MCHC (RBC) [Mass/Vol] 32.5 g/dL Normal (30.0 - 37.0) [facility] Comment on above: Order Comment: FACIL ITY: [facility] [id number] Performed By: #### C BC/2A, ESRCRP, CCP, HBC-M, HBSAG, HCV, CA, MG, RHF, URCA #### [facility] [address] [facility], [address] MCV (RBC) [Entitic vol] 88.1 fL Normal (81.0 - 99.0) [facility] Comment on above: Order Comment: FACIL ITY: [facility] [id number] Performed By: #### C BC/2A, ESRCRP, CCP, HBC-M, HBSAG, HCV, CA, MG, RHF, URCA #### [facility] [address] [facility], [address] PLT 282 x10^3ul Normal (130 - 400) [facility] Comment on above: Order Comment: FACIL ITY: [facility] [id number] Performed By: #### C BC/2A, ESRCRP, CCP, HBC-M, HBSAG, HCV, CA, MG, RHF, URCA #### [facility] [address] [facility], [address] RBC 4.71 x10^6ul Normal (4.20 - 5.40) [facility] Comment on above: Order Comment: FACIL ITY: [facility] [id number] Performed By: #### C BC/2A, ESRCRP, CCP, HBC-M, HBSAG, HCV, CA, MG, RHF, URCA #### [facility] [address] [facility], [address] WBC 6.47 x10^3ul Normal (3.80 - 10.60) [facility] Comment on above: Order Comment: FACIL ITY: [facility] O [id number] Performed By: #### C BC/2A, ESRCRP, CCP, HBC-M, HBSAG, HCV, CA, MG, RHF, URCA #### [facility] [address] [facility], [address] HEP B CORE AB, IGMon 023 HEPATITIS B CORE ANTIBODY, IGM Negative Normal (NEG - NEG) [facility] Comment on above: Performed By: #### C BC/2A, ESRCRP, CCP, HBC-M, HBSAG, HCV, CA, MG, RHF, URCA #### [facility] [address] [facility], [address] HEP B HERACLIO AGon 12-18-2022 HEP B HERACLIO AG Negative Normal (NEG - NEG) [facility] Comment on above: Performed By: #### C BC/2A, ESRCRP, CCP, HBC-M, HBSAG, HCV, CA, MG, RHF, URCA #### [facility] [address] [facility], [address] HEP C ANTIBODYon 12-18-2022 HEPATITIS C ANTIBODY Negative Normal (NEG - NEG) [facility] Comment on above: Performed By: #### C BC/2A, ESRCRP, CCP, HBC-M, HBSAG, HCV, CA, MG, RHF, URCA #### [facility] [address] [facility], [address] MAGNESIUMon 12-18-2022 Magnesium [Mass/Vol] 2.0 mg/dL Normal (1.6 - 2.3) [facility] Comment on above: Performed By: #### C BC/2A, ESRCRP, CCP, HBC-M, HBSAG, HCV, CA, MG, RHF, URCA #### [facility] [address] [facility], [address] RF FACTORon 12-18-2022 RF FACTOR <9 Normal (0 - 12) [facility] Comment on above: Result Comment: RF F ACTOR = LESS THAN 9 IU/ML RF FACTOR MIN. DETECTION = 9 IU/ML. Performed By: #### C BC/2A, ESRCRP, CCP, HBC-M, HBSAG, HCV, CA, MG, RHF, URCA #### [facility] [address] [facility], [address] SED RATE - CRPon 12-18-2022 CRP EXTENDED RANGE 1.40 MG/L Normal (0.00 - 3.20) [facility] Comment on above: Performed By: #### C BC/2A, ESRCRP, CCP, HBC-M, HBSAG, HCV, CA, MG, RHF, URCA #### [facility] [address] [facility], [address] SED RATE WEST. 5 MM/HR Normal (0 - 25) [facility] Comment on above: Performed By: #### C BC/2A, ESRCRP, CCP, HBC-M, HBSAG, HCV, CA, MG, RHF, URCA #### [facility] [address] [facility], [address] URIC ACIDon 12-18-2022 Urate [Mass/Vol] 4.2 mg/dL Normal (2.5 - 6.2) [facility] Comment on above: Performed By: #### C BC/2A, ESRCRP, CCP, HBC-M, HBSAG, HCV, CA, MG, RHF, URCA #### [facility] [address] [facility], [address] PAP ACOG PANEL 2: 30 to 65on 11-16-2021 . . Normal [facility] Comment on above: Result Comment: Perf ormed at: WB Performed By: #### 4 [id number] #### [facility] [address] [address] [address] Sierra Almonte Age Gdln ACOG Testing 30-65 Normal [facility] Comment on above: Performed By: #### 4 [id number] #### [facility] [address] [place] [address] Dr. Sierra Almonte DIAGNOSIS: Comment Normal [facility] Comment on above: Result Comment: NEGA TIVE FOR INTRAEPITHELIAL LESION OR MALIGNANCY. Performed at: WB Performed By: #### 4 [id number] #### [facility] [address] [address] [address] Sierra Almonte HPV Aptima Negative Normal Negative [facility] Comment on above: Result Comment: This nucleic acid amplification test detects fourteen high-risk HPV types (16,18,31,33,35,39,45,51,52,56,58,59,66,68) without differentiation. Performed at: =G Performed By: #### 4 [id number] #### [facility] [address] [place] [address] Dr. Sierra Almonte Methodology: Comment Normal [facility] Comment on above: Result Comment: This liquid based ThinPrep(R) pap test was screened with the use of an image guided system. Performed at: WB Performed By: #### 4 [id number] #### [facility] [address] [place] [address] Dr. Sierra Almonte Note: Comment Normal [facility] Comment on [...] Performed at: WB Performed By: #### 4 [id number] #### [facility] [address] [place] [address] Dr. Sierra Almonte Performed by: Comment Normal [facility] Comment on above: Result Comment: Alison Nava, Typewriter Operator Automatic (ASCP) Performed at: WB Performed By: #### 4 [id number] #### [facility] [address] [place], [place] [address] Dr. Sierra Almonte Specimen adequacy: Comment Normal [facility] Comment on above: Result Comment: Sati sfactory for evaluation. Endocervical and/or squamous metaplastic cells (endocervical component) are present. Performed at: WB Performed By: #### 4 [id number] #### [facility] [address] [address] [address] Sierra Almonte Thyroidon 07-14-2021 US Thyroid [...] by Alexei Smith on 07/14/2021 1000 Normal [facility] Specialist Complete Blood Count with Au to Diffon 07-12-2021 Basophils (Bld) [#/Vol] 0.02 10*3/uL Normal 0.00-0.20 [facility] Specialist Comment on above: Performed By: #### C BCAD, RF, VITD, ESR, TSH reflex FT4, CMP, FT4 #### [facility] [address] [place], [place] [id number] Basophils/100 WBC (Bld) 0.3 % Normal [facility] Specialist Comment on above: Performed By: #### C BCAD, RF, VITD, ESR, TSH reflex FT4, CMP, FT4 #### [facility] [address] [place], [place] [id number] Eosinophils (Bld) [#/Vol] 0.08 10*3/uL Normal 0.02-0.50 [facility] Specialist Comment on above: Performed By: #### C BCAD, RF, VITD, ESR, TSH reflex FT4, CMP, FT4 #### [facility] [address] [place], [place] [id number] Eosinophils/100 WBC (Bld) 1.2 % Normal [facility] Specialist Comment on above: Performed By: #### C BCAD, RF, VITD, ESR, TSH reflex FT4, CMP, FT4 #### [facility] [address] [place], [place] [id number] Erythrocyte distribution width (RBC) [Ratio] 13.8 % Normal 11.0-15.0 [facility] Instructional Designer Comment on above: Performed By: #### C BCAD, RF, VITD, ESR, TSH reflex FT4, CMP, FT4 #### [facility] [address] [place], [place] [id number] Hematocrit (Bld) [Volume fraction] 39.6 % Normal 35.0-47.0 [facility] Specialist Comment on above: Performed By: #### C BCAD, RF, VITD, ESR, TSH reflex FT4, CMP, FT4 #### [facility] [address] [place], [place] [id number] Hemoglobin (Bld) [Mass/Vol] 12.9 g/dL Normal 11.6-15.5 [facility] Specialist Comment on above: Performed By: #### C BCAD, RF, VITD, ESR, TSH reflex FT4, CMP, FT4 #### [facility] [address] [place], [place] [id number] Lymphocytes (Bld) [#/Vol] 1.3 10*3/uL Normal 0.9-3.9 [facility] Specialist Comment on above: Performed By: #### C BCAD, RF, VITD, ESR, TSH reflex FT4, CMP, FT4 #### [facility] [address] [place], [place] [id number] Lymphocytes/100 WBC (Bld) 20.3 % Normal [facility] Specialist Comment on above: Performed By: #### C BCAD, RF, VITD, ESR, TSH reflex FT4, CMP, FT4 #### [facility] [address] [place], [place] [id number] MCH (RBC) [Entitic mass] 28.3 pg Normal 27.0-33.0 [facility] Specialist Comment on above: Performed By: #### C BCAD, RF, VITD, ESR, TSH reflex FT4, CMP, FT4 #### [facility] [address] [place], [place] [id number] MCHC (RBC) [Mass/Vol] 32.6 g/dL Normal 32.0-36.0 [facility] Specialist Comment on above: Performed By: #### C BCAD, RF, VITD, ESR, TSH reflex FT4, CMP, FT4 #### [facility] [address] [place], [place] [id number] MCV (RBC) [Entitic vol] 87 fL Normal 80-100 [facility] Specialist Comment on above: Performed By: #### C BCAD, RF, VITD, ESR, TSH reflex FT4, CMP, FT4 #### [facility] [address] [place], [place] [id number] Monocytes (Bld) [#/Vol] 0.4 10*3/uL Normal 0.2-0.9 [facility] Specialist Comment on above: Performed By: #### C BCAD, RF, VITD, ESR, TSH reflex FT4, CMP, FT4 #### [facility] [address] [place], [place] [id number] Monocytes/100 WBC (Bld) 5.8 % Normal [facility] Specialist Comment on above: Performed By: #### C BCAD, RF, VITD, ESR, TSH reflex FT4, CMP, FT4 #### [facility] [address] [place], [place] [id number] Neutrophils (Bld) [#/Vol] 4.7 10*3/uL Normal 1.5-7.8 [facility] Specialist Comment on above: Performed By: #### C BCAD, RF, VITD, ESR, TSH reflex FT4, CMP, FT4 #### [facility] [address] [place], [place] [id number] Neutrophils/100 WBC (Bld) 72.1 % Normal [facility] Specialist Comment on above: Performed By: #### C BCAD, RF, VITD, ESR, TSH reflex FT4, CMP, FT4 #### [facility] [address] [place], [place] [id number] Platelet mean volume (Bld) [Entitic vol] 11.00 fL Normal 7.50-12.50 [facility] Specialist Comment on above: Performed By: #### C BCAD, RF, VITD, ESR, TSH reflex FT4, CMP, FT4 #### [facility] [address] [place], [place] [id number] Platelets (Bld) [#/Vol] 271 10*3/uL Normal 140-400 [facility] Specialist Comment on above: Performed By: #### C BCAD, RF, VITD, ESR, TSH reflex FT4, CMP, FT4 #### [facility] [address] [place], [place] [id number] RBC (Bld) [#/Vol] 4.56 10*6/uL Normal 3.90-5.20 [facility] Specialist Comment on above: Performed By: #### C BCAD, RF, VITD, ESR, TSH reflex FT4, CMP, FT4 #### [facility] [address] [place], [place] [id number] RDW-SD 43.5 fL Normal 37.0-50.0 [facility] Specialist Comment on above: Performed By: #### C BCAD, RF, VITD, ESR, TSH reflex FT4, CMP, FT4 #### [facility] [address] [place], [place] [id number] WBC (Bld) [#/Vol] 6.5 10*3/uL Normal 3.8-11.0 [employer] [place] Instructional Designer Comment on above: Performed By: #### C BCAD, RF, VITD, ESR, TSH reflex FT4, CMP, FT4 #### [facility] [address] [place], [place] [id number] [facility] 07-12-2021 Albumin [Mass/Vol] 4.9 g/dL Normal 3.6-5.1 Levar rn [place] Instructional Designer Comment on above: Performed By: #### C BCAD, RF, VITD, ESR, TSH reflex FT4, CMP, FT4 #### [facility] [address] [place], [place] [id number] Albumin/Globulin [Mass ratio] 2.2 {ratio} Normal 1.0-2.5 [facility] Instructional Designer Comment on above: Performed By: #### C BCAD, RF, VITD, ESR, TSH reflex FT4, CMP, FT4 #### [facility] [address] [place], [place] [id number] ALP [Catalytic activity/Vol] 63 U/L Normal 35-119 [facility] Specialist Comment on above: Performed By: #### C BCAD, RF, VITD, ESR, TSH reflex FT4, CMP, FT4 #### [facility] [address] [place], [place] [id number] ALT [Catalytic activity/Vol] 26 U/L Normal 6-33 [facility] Instructional Designer Comment on above: Result Comment: 01/26 Female reference range changed. Performed By: #### C BCAD, RF, VITD, ESR, TSH reflex FT4, CMP, FT4 #### [facility] [address] [place], [place] [id number] Anion gap [Moles/Vol] 18 mmol/L Normal 12-20 [facility] Instructional Designer Comment on above: Result Comment: Effe ctive 03/03/2019 reference range changed. Performed By: #### C BCAD, RF, VITD, ESR, TSH reflex FT4, CMP, FT4 #### [facility] [address] [place], [place] [id number] AST [Catalytic activity/Vol] 26 U/L Normal 9-34 [facility] Comment on above: Performed By: #### C BCAD, RF, VITD, ESR, TSH reflex FT4, CMP, FT4 #### [facility] [address] [place], [place] [id number] BUN/CREA 10 Ratio Normal 6-22 [facility] Comment on above: Performed By: #### C BCAD, RF, VITD, ESR, TSH reflex FT4, CMP, FT4 #### [facility] [address] [place], [place] [id number] Calcium [Mass/Vol] 10.0 mg/dL Normal 8.6-10.2 [facility] Comment on above: Performed By: #### C BCAD, RF, VITD, ESR, TSH reflex FT4, CMP, FT4 #### [facility] [address] [place], [place] [id number] Chloride [Moles/Vol] 105 mmol/L Normal 98-107 [facility] Comment on above: Performed By: #### C BCAD, RF, VITD, ESR, TSH reflex FT4, CMP, FT4 #### [facility] [address] [place], [place] [id number] CO2 [Moles/Vol] 21 mmol/L Normal 20-31 [facility] Comment on above: Performed By: #### C BCAD, RF, VITD, ESR, TSH reflex FT4, CMP, FT4 #### [facility] [address] [place], [place] [id number] Creatinine [Mass/Vol] 0.6 mg/dL Normal 0.6-1.4 [facility] Comment on above: Performed By: #### C BCAD, RF, VITD, ESR, TSH reflex FT4, CMP, FT4 #### [facility] [address] [place], [place] [id number] eGFRAA 132 mL/min/1.73m2 Normal >60 [facility] [facility] Comment on above: Performed By: #### C BCAD, RF, VITD, ESR, TSH reflex FT4, CMP, FT4 #### [facility] [address] [place], [place] [id number] eGFRNAA 109 mL/min/1.73m2 Normal >60 Danielle francis [place] Instructional Designer Comment on above: Performed By: #### C BCAD, RF, VITD, ESR, TSH reflex FT4, CMP, FT4 #### [facility] [address] [place], [place] [id number] Globulin (S) [Mass/Vol] 2.2 g/dL Normal 1.9-3.7 [facility] Instructional Designer Comment on above: Performed By: #### C BCAD, RF, VITD, ESR, TSH reflex FT4, CMP, FT4 #### [facility] [address] [place], [place] [id number] Glucose [Mass/Vol] 86 mg/dL Normal 65-99 Levar cueva [place] Instructional Designer Comment on above: Result Comment: For FASTING Glucose --- ADA reference ranges: Normal 65-99 mg/dl Prediabetes 100-125 Diabetes >/= 126 Performed By: #### C BCAD, RF, VITD, ESR, TSH reflex FT4, CMP, FT4 #### [facility] [address] [place], [place] [id number] Potassium [Moles/Vol] 4.1 mmol/L Normal 3.5-5.5 [facility] Instructional Designer Comment on above: Performed By: #### C BCAD, RF, VITD, ESR, TSH reflex FT4, CMP, FT4 #### [facility] [address] [place], [place] [id number] Protein [Mass/Vol] 7.1 g/dL Normal 6.1-8.1 Levar cueva [place] Instructional Designer Comment on above: Performed By: #### C BCAD, RF, VITD, ESR, TSH reflex FT4, CMP, FT4 #### [facility] [address] [place], [place] [id number] Sodium [Moles/Vol] 140 mmol/L Normal 135-146 Levar cueva [place] Instructional Designer Comment on above: Performed By: #### C BCAD, RF, VITD, ESR, TSH reflex FT4, CMP, FT4 #### [facility] [address] [place], [place] [id number] TBIL <0.3 Normal [facility] Instructional Designer Comment on above: Performed By: #### C BCAD, RF, VITD, ESR, TSH reflex FT4, CMP, FT4 #### [facility] [address] [place], [place] [id number] Urea nitrogen [Mass/Vol] 7 mg/dL Normal 7-25 [facility] Comment on above: Performed By: #### C BCAD, RF, VITD, ESR, TSH reflex FT4, CMP, FT4 #### [facility] [address] [place], [place] [id number] Free T4on 07-12-2021 Free T4 [Mass/Vol] 0.93 ng/dL Normal 0.80-1.80 [facility] Comment on above: Performed By: #### C BCAD, RF, VITD, ESR, TSH reflex FT4, CMP, FT4 #### [facility] [address] [place], [place] [id number] Q - PASQUALE SCREEN IFA W/RFL TIT ER AND PATTERNon 07-12-2021 PASQUALE SCREEN, IFA Negative Normal NEGATIVE [facility] Comment on above: Order Comment: [facility] performed at: QPT, [facility], [address] [place] [address], [address] [place] [address], [id number], Heat Treater Apprentice: Leonard Turpin MD [facility] Collection Date/Time: [facility] [...] AC-0: Negative International Consensus on PASQUALE Patterns (https://doi.org/10.1515/[email or web address]) For additional information, please refer to [email or web address].Flowbox/faq/HJC217 (This link is being provided for informational/ educational purposes only.) Performed By: #### 2 49 #### [facility] Default [address] [place] [address] RBC Sedimentation Rateon ESR (Bld) [Velocity] 8.00 mm/h Normal 0.00-20.00 [facility] Comment on above: Performed By: #### C BCAD, RF, VITD, ESR, TSH reflex FT4, CMP, FT4 #### [facility] [address] [place], [place] [id number] Rheumatoid Factoron 07-13-19 RF <10 Normal [facility] Specialist Comment on above: Performed By: #### C BCAD, RF, VITD, ESR, TSH reflex FT4, CMP, FT4 #### [facility] [address] [place], [place] [id number] TSH w/ Reflex to Free T4on 07-12-2021 TSH 0.321 uIU/mL Low 0.400-4.500 [facility] Instructional Designer Comment on above: Performed By: #### C BCAD, RF, VITD, ESR, TSH reflex FT4, CMP, FT4 #### [facility] [address] [place], [place] [id number] Vitamin D 25-OHon 07-12-2021 VIT D 25 OH 19 ng/ml Low >29 [facility] Instructional Designer Comment on above: Result Comment: Ade min D Status Deficiency <20 ng/mL Insufficiency 20-29 ng/mL Optimal 30-100 ng/mL Possible Toxicity >=150 ng/mL Performed By: #### C BCAD, RF, VITD, ESR, TSH reflex FT4, CMP, FT4 #### [facility] [address] [place], [place] [id number] Comprehensive Metabolic Empo n 04-11-2021 Albumin [Mass/Vol] 4.6 g/dL Normal 3.2-5.5 [facility] Comment on above: Performed By: #### E BS CMP, EBS LIPID #### [facility] [address] Albumin/Globulin [Mass ratio] 1.9 {ratio} Normal [facility] Comment on above: Performed By: #### E BS CMP, EBS LIPID #### [facility] [address] ALP [Catalytic activity/Vol] 43 U/L Normal 32-92 [facility] Comment on above: Performed By: #### E BS CMP, EBS LIPID #### [facility] [address] ALT [Catalytic activity/Vol] 17 U/L Normal 10-60 [facility] Comment on above: Performed By: #### E BS CMP, EBS LIPID #### [facility] [address] AST [Catalytic activity/Vol] 20 U/L Normal 10-42 [facility] Comment on above: Performed By: #### E BS CMP, EBS LIPID #### [address] Bilirubin [Mass/Vol] 1.1 mg/dL Normal 0.3-1.2 [facility] Comment on above: Performed By: #### E BS CMP, EBS LIPID #### [address] Calcium [Mass/Vol] 9.6 mg/dL Normal 8.2-10.2 [facility] Comment on above: Performed By: #### E BS CMP, EBS LIPID #### [address] Chloride [Moles/Vol] 102 mmol/L Normal 95-114 [facility] Comment on above: Performed By: #### E BS CMP, EBS LIPID #### [facility] [address] [place] [address] CO2 [Moles/Vol] 21.4 mmol/L Low 22.0-30.0 [facility] Comment on above: Performed By: #### E BS CMP, EBS LIPID #### [facility] [address] [place] [address] Creatinine [Mass/Vol] 0.71 mg/dL Normal 0.44-1.03 [facility] Comment on above: Performed By: #### E BS CMP, EBS LIPID #### [facility] [address] [place] [address] [place] Estimated GFR ( Michelle > 60 Normal [facility] Comment on above: Result Comment: GFR estimated reference range: According to KDOQI guidelines, <60 ml/min/1.73m2 is sufficient to diagnose a patient with chronic kidney disease. Performed By: #### E BS CMP, EBS LIPID #### [facility] [address] Estimated GFR (Non- Am > 60 Normal [facility] Comment on above: Performed By: #### E BS CMP, EBS LIPID #### [facility] [address] Globulin (S) [Mass/Vol] 2.4 g/dL Normal [facility] Comment on above: Performed By: #### E BS CMP, EBS LIPID #### [address] Glucose [Mass/Vol] 76 mg/dL Normal 70-100 [facility] Comment on above: Performed By: #### E BS CMP, EBS LIPID #### [facility] [address] [place] [address] Potassium [Moles/Vol] 3.3 mmol/L Low 3.5-5.1 [facility] Comment on above: Performed By: #### E BS CMP, EBS LIPID #### [facility] [address] [place] [address] Protein [Mass/Vol] 7.0 g/dL Normal 6.1-7.9 [facility] Comment on above: Performed By: #### E BS CMP, EBS LIPID #### [facility] [address] [place] [address] [place] Sodium [Moles/Vol] 136 mmol/L Normal 136-146 [facility] Comment on above: Performed By: #### E BS CMP, EBS LIPID #### [facility] [address] [place] [address] Urea nitrogen [Mass/Vol] 5 mg/dL Low 9-23 [facility] Comment on above: Performed By: #### E BS CMP, EBS LIPID #### [facility] [address] Lipid Profileon 04-11-2021 Cholesterol [Mass/Vol] 189 mg/dL Normal 140-200 [facility] Comment on above: Result Comment: Chol less than 200 mg/dl low risk Chol 201-239 mg/dl borderline risk Chol 240 mg/dl and greater high risk Performed By: #### E BS CMP, EBS LIPID #### [facility] [address] Cholesterol in HDL [Mass/Vol] 69 mg/dL Normal 35-85 [facility] Comment on above: Result Comment: HDL CHOL ATP-III CLASSIFICATION Cardiovascular Risk HDL > or equal to 60 mg/dL LOW HDL < 40 mg/dL HIGH Performed By: #### E BS CMP, EBS LIPID #### [address] Cholesterol.total/C holesterol in HDL [Mass ratio] 2.7 {ratio} Normal <5.0 [facility] Comment on above: Result Comment: PERF ORMED BY: [place] [address] PATHOLOGIST CCU NURSE PAT PETERS M.D. Performed By: #### E BS CMP, EBS LIPID #### [address] LDL Cholesterol,Calcula shadi 107 mg/dL High 0-100 [facility] Comment on above: Result Comment: LDL ATP III CLASSIFICATION LDL less than 100 mg/dL Optimal LDL 100-129 mg/dL Near or above optimal LDL 130-159 mg/dL Borderline high LDL 160-189 mg/dL High LDL greater than 189 mg/dL Very high Performed By: #### E BS CMP, EBS LIPID #### [facility] [address] [place] [address] [place] Triglyceride w/Reflex 64 mg/dL Normal 35-149 [facility] Comment on above: Result Comment: TRIG ATP III CLASSIFICATION TRIG less than 150 mg/dL Normal TRIG 150-199 mg/dL Borderline high TRIG 200-500 mg/dL High TRIG greater than 500 mg/dL Very high Standard traceable to the Center for Disease Conrtrol and Prevention (CDC) test method. Performed By: #### E BS CMP, EBS LIPID #### [facility] [address] [place] [id number] [place] VLDL CHOLESTEROL 12 mg/dL Normal [facility] Comment on above: Performed By: #### E BS CMP, EBS LIPID #### [facility] [address] [place] [id number] [place] Covid-19 PCR (CVDTB)on SARS-CoV-2 (COVID-19) RNA ERIC+probe Ql (Unsp spec) Detected Critically abnormal NOT DETECTED [facility] Comment on above: Result Comment: This test is not yet approved or cleared by the [place] FDA. When there are no FDA-approved or cleared tests available, and other criteria are met, FDA can make tests available under an emergency access mechanism called an Emergency Use Authorization (EUA). The EUA for this test is supported by the [place] of Health and Human Service's (HHS's) declaration [...] By: #### C VDTBH #### [facility] [address] [place] [address] Dr. Sierra Almonte CHLAMYDIA/GONOCOCCUS ERIC (SW AB/URINE/PAPon 12-14-2020 Chlamydia trachomatis, ERIC Negative Normal Negative [facility] Comment on above: Performed By: #### C T/NGNA #### [facility] [address] [place] [address] Dr. Sierra Almonte Neisseria gonorrhoeae, ERIC Negative Normal Negative [facility] Comment on above: Performed By: #### C T/NGNA #### [facility] [address] [place] [address] Dr. Sierra Almonte VAGINITIS/VAGINOSIS DNA PROB Andrew 12-11-2020 Loc species Negative Normal Negative [facility] Comment on above: Performed By: #### V AGINT #### [facility] [address] [address] [address] Sierra Almonte Gardnerella vaginalis Positive Abnormal Negative [facility] Comment on above: Performed By: #### V AGINT #### [facility] [address] [address] [address] Sierra Almonte Trichomonas vaginalis Negative Normal Negative [facility] Comment on above: Performed By: #### V AGINT #### [facility] [address] [address] [address] Sierra Almonte Vital Signs Date Time Vital Sign Value Performing Clinician Faci lity 04-29-2024 14:44-0500 Body mass index (BMI) [Ratio] 28.72 kg/m2 Raghavendra Christina DO Work Phone: [facility] 04-29-2024 14:44-0500 Body weight 73.54 kg Raghavendra Christina DO Work Phone: [facility] 04-29-2024 14:44-0500 Diastolic blood pressure 70 mm[Hg] Raghavendra Christina DO Work Phone: [facility] 04-29-2024 14:44-0500 Systolic blood pressure 98 mm[Hg] Raghavendra Christina DO Work Phone: [facility] 04-08-2024 11:58-0500 Body mass index (BMI) [Ratio] 28.48 kg/m2 Raghavendra Christina DO Work Phone: [facility] 04-08-2024 11:58-0500 Body weight 72.94 kg Raghavendra Christina DO Work Phone: [facility] 04-08-2024 11:58-0500 Diastolic blood pressure 74 mm[Hg] Raghavendra Christina DO Work Phone: [facility] 04-08-2024 11:58-0500 Systolic blood pressure 110 mm[Hg] Raghavendra Christina DO Work Phone: [facility] 04-02-2024 11:03-0500 Body mass index (BMI) [Ratio] 27.99 kg/m2 Teresa Jo Ann-Nossek TECHNICAL SUPPORT 1 SOFTWARE ENGINEER-ELECTROTYPE MOLDER Work Phone: [facility] 04-02-2024 11:03-0500 Body weight 71.67 kg Teresa Jo Ann-Nossek TECHNICAL SUPPORT 1 SOFTWARE ENGINEER-ELECTROTYPE MOLDER Work Phone: [facility] 04-02-2024 11:03-0500 Diastolic blood pressure 72 mm[Hg] Teresa Arringtonor-Nossek TECHNICAL SUPPORT 1 SOFTWARE ENGINEER-ELECTROTYPE MOLDER Work Phone: [facility] 04-02-2024 11:03-0500 Heart rate 105 /min Teresa Arringtonor-Nossek TECHNICAL SUPPORT 1 SOFTWARE ENGINEER-ELECTROTYPE MOLDER Work Phone: [facility] 04-02-2024 11:03-0500 Systolic blood pressure 122 mm[Hg] Teresa Arringtonor-Nossek TECHNICAL SUPPORT 1 SOFTWARE ENGINEER-ELECTROTYPE MOLDER Work Phone: [facility] 03-25-2024 10:19-0500 Body mass index (BMI) [Ratio] 27.63 kg/m2 Raghavendra Christina DO Work Phone: [facility] 03-25-2024 10:19-0500 Body weight 70.76 kg Raghavendra Christina DO Work Phone: [facility] 03-25-2024 10:19-0500 Diastolic blood pressure 68 mm[Hg] Raghavendra Christina DO Work Phone: [facility] 03-25-2024 10:19-0500 Systolic blood pressure 100 mm[Hg] Raghavendra Christina DO Work Phone: [facility] 03-11-2024 10:10-0500 Body mass index (BMI) [Ratio] 27.95 kg/m2 Raghavendra Christina DO Work Phone: [facility] 03-11-2024 10:10-0500 Body weight 71.58 kg Raghavendra Christina DO Work Phone: [facility] 03-11-2024 10:10-0500 Diastolic blood pressure 68 mm[Hg] Raghavendra Christina DO Work Phone: [facility] 03-11-2024 10:10-0500 Systolic blood pressure 104 mm[Hg] Raghavendra Christina DO Work Phone: [facility] 02-13-2024 13:14-0500 Body height 160 cm Emerita Whittakermor CHIEF CONTROLLER STATION Work Phone: [facility] 02-13-2024 13:14-0500 Body mass index (BMI) [Ratio] 26.93 kg/m2 Emerita Gillmor CHIEF CONTROLLER STATION Work Phone: [facility] 02-13-2024 13:14-0500 Body weight 68.95 kg Emerita Gillmor CHIEF CONTROLLER STATION Work Phone: [facility] 02-13-2024 13:14-0500 Diastolic blood pressure 72 mm[Hg] Emerita Remediosmor CHIEF CONTROLLER STATION Work Phone: [facility] 02-13-2024 13:14-0500 Heart rate 109 /min Emerita Whittakermor CHIEF CONTROLLER STATION Work Phone: [facility] 02-13-2024 13:14-0500 Systolic blood pressure 119 mm[Hg] Emerita Gillmor CHIEF CONTROLLER STATION Work Phone: [facility] 02-11-2024 10:19-0500 Body mass index (BMI) [Ratio] 27.3 kg/m2 Raghavendra Christina DO Work Phone: [facility] 02-11-2024 10:19-0500 Body weight 71.58 kg Raghavendra Christina DO Work Phone: [facility] 02-11-2024 10:19-0500 Diastolic blood pressure 70 mm[Hg] Raghavendra Christina DO Work Phone: [facility] 02-11-2024 10:19-0500 Systolic blood pressure 120 mm[Hg] Raghavendra Christina DO Work Phone: [facility] 01-10-2024 10:44-0500 Body mass index (BMI) [Ratio] 26.3 kg/m2 Raghavendra Christina DO Work Phone: [facility] 01-10-2024 10:44-0500 Body weight 68.95 kg Raghavendra Christina DO Work Phone: [facility] 01-10-2024 10:44-0500 Diastolic blood pressure 74 mm[Hg] Raghavendra Christina DO Work Phone: [facility] 01-10-2024 10:44-0500 Systolic blood pressure 116 mm[Hg] Raghavendra Christina DO Work Phone: [facility] 01-01-2024 11:40-0500 Body mass index (BMI) [Ratio] 25.78 kg/m2 Teresa Jo Ann-Nossek TECHNICAL SUPPORT 1 SOFTWARE ENGINEER-ELECTROTYPE MOLDER Work Phone: [facility] 01-01-2024 11:40-0500 Body weight 67.59 kg Teresa Jo Ann-Nossek TECHNICAL SUPPORT 1 SOFTWARE ENGINEER-ELECTROTYPE MOLDER Work Phone: [facility] 01-01-2024 11:40-0500 Diastolic blood pressure 82 mm[Hg] Teresa Jo Ann-Nossek TECHNICAL SUPPORT 1 SOFTWARE ENGINEER-ELECTROTYPE MOLDER Work Phone: [facility] 01-01-2024 11:40-0500 Heart rate 99 /min Teresa Jo Ann-Nossek TECHNICAL SUPPORT 1 SOFTWARE ENGINEER-ELECTROTYPE MOLDER Work Phone: [facility] 01-01-2024 11:40-0500 Systolic blood pressure 100 mm[Hg] Teresa Jo Ann-Nossek TECHNICAL SUPPORT 1 SOFTWARE ENGINEER-ELECTROTYPE MOLDER Work Phone: [facility] 11-28-2023 14:53-0400 Body mass index (BMI) [Ratio] 25.57 kg/m2 Raghavendra Christina DO Work Phone: [facility] 11-28-2023 14:53-0400 Body weight 67.04 kg Raghavendra Christina DO Work Phone: [facility] 11-28-2023 14:53-0400 Diastolic blood pressure 74 mm[Hg] Raghavendra Christina DO Work Phone: [facility] 11-28-2023 14:53-0400 Systolic blood pressure 114 mm[Hg] Raghavendra Christina DO Work Phone: [facility] 11-01-2023 15:16-0400 Body mass index (BMI) [Ratio] 25.6 kg/m2 [facility] 11-01-2023 15:16-0400 Body weight 67.13 kg [facility] 10-18-2023 11:32-0400 Body height 161.9 cm Ysabel Cabral MD Work Phone: [facility] 10-18-2023 11:32-0400 Body mass index (BMI) [Ratio] 26.05 kg/m2 Ysabel Cabral MD Work Phone: [facility] 10-18-2023 11:32-0400 Body weight 68.31 kg Ysabel Cabral MD Work Phone: [facility] 10-18-2023 11:32-0400 Diastolic blood pressure 76 mm[Hg] Ysabel Cabral MD Work Phone: [facility] 10-18-2023 11:32-0400 Heart rate 92 /min Ysabel Cabral MD Work Phone: [facility] 10-18-2023 11:32-0400 Respiratory rate 20 /min Ysabel Cabral MD Work Phone: [facility] 10-18-2023 11:32-0400 Systolic blood pressure 122 mm[Hg] Ysabel Cabral MD Work Phone: [facility] Healthcare Encounters Encounter Date Encounter Type Care Provider Facility Start: 04-29-2024 End: 04-29-2024 ambulatory RAGHAVENDRA CHRISTINA Not Available Start: 04-29-2024 End: 04-29-2024 Bamboo flowsheet Raghavendra Christina DO Work Phone: [facility] Start: 04-29-2024 End: 04-29-2024 Bamboo flowsheet Raghavendra Christina DO Work Phone: [facility] Start: 04-29-2024 End: 04-29-2024 Clinisync Result Encounter Generic External Data Provider [facility] External Department Unsolicited Start: 04-29-2024 End: 04-29-2024 [...] 04-02-2024 End: 04-02-2024 Bamboo flowsheet Teresa Arringtonor-Nossek TECHNICAL SUPPORT 1 SOFTWARE ENGINEER-ELECTROTYPE MOLDER Work Phone: [facility] Start: 04-02-2024 End: 04-02-2024 Bamboo flowsheet Teresa Alonzo Jo Ann-Nossek TECHNICAL SUPPORT 1 SOFTWARE ENGINEER-ELECTROTYPE MOLDER Work Phone: [facility] Start: 04-02-2024 End: 04-02-2024 ambulatory TERESA Alonzo JO ANN-NOSSEK Not Available Start: 04-02-2024 End: 04-02-2024 Office outpatient visit 25 minutes Teresajohn Ornelas TECHNICAL SUPPORT 1 SOFTWARE ENGINEER-ELECTROTYPE MOLDER Work Phone: [facility] [...] 02-13-2024 End: 02-13-2024 Bamboo flowsheet Emerita Suhasr CHIEF CONTROLLER STATION Work Phone: [facility] [address] Start: 02-13-2024 End: 02-13-2024 Bamboo flowsheet Emerita Remediosmor CHIEF CONTROLLER STATION Work Phone: [facility] [address] Start: 02-13-2024 End: 02-13-2024 ambulatory EMERITA REMEDIOSMOR Not Available Start: 02-13-2024 End: 02-13-2024 Office outpatient visit 15 minutes Emerita Warren CHIEF CONTROLLER STATION Work Phone: [facility] Comment on above: Intractable [...] yrs Raghavendra Valdezo DO Work Phone: [facility] Comment on above: Well woman exam with routine gynecological exam; Second trimester ; 18 weeks gestation of ; Vaginal discharge; STD exposure; Screening, , for anatomic survey; Gastroesophageal reflux in Start: 01-10-2024 End: 01-10-2024 ambulatory RAGHAVENDRA VASQUEZ Not Available Start: 01-01-2024 End: 01-01-2024 Bamboo flowsheet Teresa Cherry-Chayosek TECHNICAL SUPPORT 1 SOFTWARE ENGINEERGTI Work Phone: [facility] Start: 01-01-2024 End: 01-01-2024 Bamboo flowsheet Teresa Cherry-Nossek TECHNICAL SUPPORT 1 SOFTWARE ENGINEER-[employer] Work Phone: [facility] Start: 01-01-2024 End: 01-01-2024 ambulatory TERESA ARRINGTONOR-NOSSEK Not Available Start: 01-01-2024 End: 01-01-2024 Office outpatient visit 25 minutes Teresa Arringtonor-Nossek TECHNICAL SUPPORT 1 SOFTWARE ENGINEER-[employer] Work Phone: [facility] Comment on above: [...] Office outpatient visit 15 minutes Teresa Ornelas TECHNICAL SUPPORT 1 SOFTWARE ENGINEER-ELECTROTYPE MOLDER Work Phone: [facility] [...] Bamboo flowsheet Evonne Childress DO Work Phone: [facility] Start: 10-18-2023 End: 10-18-2023 Office outpatient visit 15 minutes Ysabel Cabral MD Work Phone: [facility] Comment on above: Morning sickness (Pr imary Dx) Start: 10-18-2023 End: 10-18-2023 ambulatory YSABEL CABRAL Not Available Start: 10-18-2023 End: 10-18-2023 Office outpatient visit 25 minutes Evonne Childress DO Work Phone: [facility] Comment on above: Intractable [...] ambulatory DR TALITA DODSON Facility: Start: 05-11-2021 ([facility] C Vac) [facility] Co vid Vaccine Vicky Joe [facility] Start: 05-11-2021 End: 05-11-2021 ambulatory Vicky Joe Other [place] [employer] Other Start: 03-01-2021 End: 03-01-2021 ambulatory CHLOE [...] Data Provider Start: 03-07-2024 [facility] UA (CLEAN/CATCH) ELECTROTYPE MOLDER/MICRO IF IND. Raghavendra Christina DO Work Phone: [...] HBSAG, HCV, CA, MG, RHF, URCA #### [facility] [address] [facility] [address] Plan of Treatment Date Care Activity Detail Author Start: 01-09-2027 Screening for malign ant neoplasm of cervix [facility] Start: 06-17-2024 End: 06-17-2024 Patient encounter procedure 06/17/2024 11:30 AM EDT Office Visit [facility] [address] [facility] [address] [place] [id number] Teresa Ornelas, TECHNICAL SUPPORT 1 SOFTWARE ENGINEER-ELECTROTYPE MOLDER [address] [facility] [address] [place] [address] [facility] Start: 05-13-2024 End: 05-13-2024 Patient encounter procedure 05/13/2024 2:00 PM EDT Routine [facility] [address] [facility] [place] [id number] Raghavendra Vasquez, DO [address] [place] [address] [facility] Start: 05-06-2024 End: 05-06-2024 [...] AM EST Routine [facility] [address] [place] [address] Raghavendra Vasquez, DO [address] [place] [address] [facility] Start: 04-08-2024 End: 10-06-2024 [...] [facility] [address] [place] [phone] Raghavendra Vasquez, DO [address] [place] [address] [facility] Start: 04-02-2024 End: 04-02-2024 Patient encounter procedure 04/02/2024 11:00 AM EST Office Visit [facility] [address] [facility] [address] [place] [address] Teresa Ornelas, TECHNICAL SUPPORT 1 SOFTWARE ENGINEER-ELECTROTYPE MOLDER [address] [facility] [address] [place] [address] [facility] Start: 03-25-2024 End: 03-25-2024 Patient encounter procedure 03/25/2024 10:00 AM EST Routine [facility] [address] [place] [id number] Raghavendra Vasquez, DO [address] [facility] [place] [address] [facility] Start: 03-11-2024 End: 03-11-2024 Patient encounter procedure 03/11/2024 9:40 AM EST Routine [facility] [address] [facility] [place] [phone] Raghavendra Vasquez, DO [address] [place] [address] [facility] Start: 02-13-2024 End: 02-13-2024 Patient encounter procedure 02/13/2024 1:00 PM EST Office Visit [facility] [place] [address] [place] [phone] Emerita Warren, NATAN [address] [place], [place] [facility] [place] [address] Start: 02-11-2024 End: 02-10-2025 CBC [...] mellitus screening Expected: 02/11/2024 (Approximate), Expires: 02/10/2025 [facility] Comment on above: Expected: 02/11/2024 (Approximate), Expires: 02/10/2025 Start: 02-11-2024 End: 02-10-2025 US for US OB SCAN FOR GROWTH Imaging Routine 23 weeks gestation of Diabetes mellitus screening Expected: 02/11/2024 (Approximate), Expires: 02/10/2025 [facility] Comment on above: Expected: 02/11/2024 (Approximate), Expires: 02/10/2025 Start: 02-11-2024 End: 02-11-2024 Patient encounter procedure 02/11/2024 9:40 AM EST Routine [facility] [address] [place] [phone] Raghavendra Vasquez, [address] [facility] [place] [address] [facility] OB Start: 01-28-2024 End: 01-28-2024 Professional / ancillary services management 01/28/2024 11:00 AM EST Ancillary Procedure [facility] [address] [place] [phone] [facility] OB Start: 01-10-2024 End: 07-09-2024 Alpha fetoprotein, maternal Alpha fetoprotein, maternal Lab Routine Second trimester 18 weeks gestation of Expected: 01/10/2024 (Approximate), Expires: 07/09/2024 [facility] Comment on above: Expected: 01/10/2024 (Approximate), [...] Routine [facility] [address] [place] [phone] Raghavendra Vasquez, DO [address] [place] [address] [facility] Start: 01-01-2024 End: 01-01-2024 Patient encounter procedure 01/01/2024 11:30 AM EST Office Visit [facility] [address] [facility] [address] [place] [address] Teresa Ornelas, TECHNICAL SUPPORT 1 SOFTWARE ENGINEER-[facility] [address] [facility] [address] [place] [address] [facility] Start: 12-18-2023 End: 12-18-2023 Patient encounter procedure 12/18/2023 5:30 PM EDT Office Visit [facility] [place] [address] [place] [phone] Evonne Childress, [address] [place] [address] [facility] [place] [address] Start: 11-28-2023 End: 11-28-2023 Patient encounter procedure 11/28/2023 2:20 PM EDT Routine [facility] [address] [place] [phone] Raghavendra Vasquez, DO [address] [place] [address] [facility] Start: 11-27-2023 End: 11-27-2023 Patient encounter procedure 11/27/2023 11:00 AM EDT Office Visit [facility] [address] [facility] [address] [place] [address] Teresa Ornelas, TECHNICAL SUPPORT 1 SOFTWARE ENGINEER-[facility] [address] [facility] [address] [place] [address] [facility] Start: 11-01-2023 End: 10-31-2024 ABO/Rh ABO/Rh Lab Routine Missed menses Expected: 11/01/2023 (Approximate), Expires: 10/31/2024 [facility] Comment on above: Expected: 11/01/2023 (Approximate), Expires: 10/31/2024 Start: 11-01-2023 End: 11-01-2023 ambulatory 11/01/2023 2:00 PM EDT Initial [facility] OB [address] [place] [address] [facility] OB Start: 11-01-2023 End: 10-31-2024 Blood type and Indirect antibody screen panel - Blood Type and screen Lab Routine Missed menses Expected: 11/01/2023 (Approximate), Expires: 10/31/2024 [facility] Work Phone: Comment on above: Expected: 11/01/2023 (Approximate), Expires: 10/31/2024 Start: 11-01-2023 End: 10-31-2024 US Pelvis transvaginal US OB transvaginal Imaging Routine Missed menses Expected: 11/01/2023 (Approximate), Expires: 10/31/2024 [facility] Comment on above: Expected: 11/01/2023 (Approximate), Expires: 10/31/2024 Start: 11-01-2023 End: 11-01-2023 Professional / ancillary services management 11/01/2023 1:30 PM EDT Ancillary Procedure [facility] OB [address] [place] [address] [facility] OB Start: 10-28-2023 Influenza vaccination Influenza Vacc ine (#1) [facility] Start: 10-18-2023 End: 10-18-2023 Patient encounter procedure 10/18/2023 11:40 AM EDT Office Visit [facility] MICHELLE [address] [place] [phone] Ysabel Cabral MD [address] [place], [place] [id number] [facility] Start: 10-18-2023 End: 10-18-2023 Patient encounter procedure 10/18/2023 10:30 AM EDT Procedure Visit [facility] [place] [address] [place] [address] Evonne Childress DO [address] [place] [address] Arrived [facility] Comment on above: Arrived Start: 09-10-2017 Screening for malign ant neoplasm of cervix [facility] Start: 09-10-2008 Screening for malign ant neoplasm of cervix Pap Smear [facility] Bacteria identified in Urine by Culture Urine culture Microbiology Routine Missed menses Ordered: 11/01/2023 [facility] Comment on above: Ordered: 11/01/2023 CBC W Auto Different ial panel - Blood CBC and differential Lab Routine Missed menses Ordered: 11/01/2023 [facility] Comment on above: Ordered: 11/01/2023 CHLAMYDIA TRACHOMATI S (GENITO/STI) CHLAMYDIA TRACHOMATIS (GENITO/STI) Lab Routine STD exposure Ordered: 01/10/2024 [facility] Comment on above: Ordered: 01/10/2024 Cytology Cervical or vaginal smear or scraping study Pap Smear Pathology and Cytology Routine Well woman exam with routine gynecological exam Ordered: 01/10/2024 [facility] Comment on above: Ordered: 01/10/2024 Hemoglobin A1c/Hemoglobin.total in Blood Hemoglobin A1c Lab Routine Missed menses Ordered: 11/01/2023 [facility] Comment on above: Ordered: 11/01/2023 Hepatitis B virus surface Ag [Presence] in Serum or Plasma by Immunoassay Hepatitis B surface antigen Lab Routine Missed menses Ordered: 11/01/2023 [facility] Comment on above: Ordered: 11/01/2023 Hepatitis C virus Ab [Presence] in Serum or Plasma by Immunoassay Hepatitis C antibody Lab Routine Missed menses Ordered: 11/01/2023 [facility] Comment on above: Ordered: 11/01/2023 HIV-1/HIV-2 antigen/antibody combination immunoassay HIV-1 and HIV-2 antibodies Lab Routine Missed menses Ordered: 11/01/2023 [facility] Comment on above: Ordered: 11/01/2023 Human papilloma viru s DNA [Presence] in Unspecified specimen by Probe with amplification HPV DNA probe, amplified Microbiology Routine Well woman exam with routine gynecological exam Ordered: 01/10/2024 [facility] Comment on above: Ordered: 01/10/2024 Neisseria gonorrhoea e DNA [Presence] in Unspecified specimen by ERIC with probe detection Neisseria gonorrhea DNA probe, direct Lab Routine STD exposure Ordered: 01/10/2024 [facility] Comment on above: Ordered: 01/10/2024 Reagin Ab [Presence] in Serum by RPR RPR Lab Routine Missed menses Ordered: 11/01/2023 [facility] Comment on above: Ordered: 11/01/2023 Rubella antibody, IgG Rubella an tibody, IgG Lab Routine Missed menses Ordered: 11/01/2023 [facility] Comment on above: Ordered: 11/01/2023 SURESWAB(R) ADVANCED VAGINITIS PLUS, TMA SURESWAB(R) ADVANCED VAGINITIS PLUS, TMA Pathology and Cytology Routine Vaginal discharge Ordered: 01/10/2024 [facility] Work Phone: Comment on above: Ordered: 01/10/2024 Immunizations Immunization Date Immunization Notes Care Provider Corrina hanson 05-11-2021 COVID-19 En Joe Other [facility] Other 10-02-2016 influenza, injectabl e, quadrivalent, preservative free Evonne Jaydon DO Work Phone: [facility] 10-02-2016 influenza virus vaccine, unspecified formulation Evonne Jaydon DO Work Phone: [facility] 10-13-2015 influenza, injectabl e, quadrivalent, preservative free Evonne Jaydon DO Work Phone: [facility] 12-02-2014 influenza, seasonal, injectable, preservative free Evonne Childress DO Work Phone: [facility] Payers Date Payer Category Payer Medicaid [facility] MEDICAID [place] MEDICA[place] [id number] 2021-Present [address] [place] [address] [id number] 2021 Medicaid (Managed Care) [facility] MEDICAID [id number] 1987 Unknown [id number] 2.840.1.842752.3.579.2. 593 1987 Unknown [id number] 2.16840.1.719313.3.579.2. 593 1987 Unknown [id number] 2.16840.1.131572.3.579.2. 593 1987 Unknown [id number] 2.16.840.1.058530.3.579.2. 1259 1987 Unknown [id number] 2.16.840.1.290958.3.579.2. 1259 1987 Unknown [id number] 2.16.840.1.139367.3.579.2. 1259 1987 Unknown [id number] 2.16.840.1.937806.3.579.2. 1259 1987 Unknown [id number] 2.16.840.1.151672.3.579.2. 1258 1987 Unknown [id number] 2.16.840.1.690764.3.579.2. 1258 1987 Unknown [id number] 2..840.1.388021.3.579.2. 1258 1987 Unknown [id number] 2.16.840.1.614367.3.579.2. 1258 1987 Unknown [id number] 2..840.1.903971.3.579.2. 1258 1987 Unknown [id number] 2..840.1.505406.3.579.2. 1258 1987 Unknown [id number] 2.840.1.427951.3.579.2. 1258 1987 Unknown [id number] 2.840.1.272373.3.579.2. 1258 1987 Unknown [id number] 2.840.1.662125.3.579.2. 1258 1987 Unknown [id number] 2.840.1.846945.3.579.2. 1258 1987 Unknown [id number] 2.840.1.116850.3.579.2. 1258 1987 Unknown [id number] 2.840.1.005890.3.579.2. 1258 1987 Unknown [id number] 2.840.1.713712.3.579.2. 1258 1987 Unknown [id number] 2.840.1.618857.3.579.2. 1258 1987 Unknown [id number] 2.840.1.569987.3.579.2. 1258 1987 Unknown [id number] 2..840.1.208784.3.579.2. 1258 1987 Unknown [id number] 2.840.1.016204.3.579.2. 1259 1987 Unknown [id number] 2.16.840.1.613724.3.579.2. 9 1987 Unknown [id number] 2.16.840.1.149477.3.579.2. 9 1987 Unknown [id number] 2.16.840.1.092941.3.579.2. 9 1987 Unknown [id number] 2.16.840.1.790952.3.579.2. 1259 1959 Unknown [id number] 2.16.840.1.044053.19 Social History Date Type Detail Facility Unknown if ever smoked [facility] Other Start: 2022 End: 01-01-2024 Sex Assigned [facility] [employer] Other Start: 12-22-2022 Tobacco smoking stat [facility] Never smoked tobacco [facility] [...] Clinical Notes 05-11-2021 to 04-29-2024 Betsey Malave, BUSINESS SYSTEMS MANAGER - 04/29/2024 2:00 PM Christine Lundberg, BUSINESS SYSTEMS MANAGER - 04/08/2024 11:40 AM America CherryVenitaAdrianne, TECHNICAL SUPPORT 1 SOFTWARE ENGINEER-ELECTROTYPE MOLDER - 04/02/2024 11:00 AM Christine Lundberg, BUSINESS SYSTEMS MANAGER - 03/25/2024 10:00 AM EST Note [...] Attention deficit hyperactivity disorder (ADHD), combined type ([facility]) 07/04/2022 Episodic mood disorder ([facility]) 07/04/2022 Generalized anxiety disorder ([facility]) 07/04/2022 Panic disorder ([facility]) 07/04/2022 Acquired scoliosis 09/09/2016 Allergic rhinitis 10/16/2019 Anxiety 01/31/2020 Asthma ([facility]) 12/31/2014 Chronic fatigue syndrome 07/03/2016 Chronic gastritis without bleeding 12/28/2022 Irritable bowel syndrome 07/03/2016 Migraine without aura and without status migrainosus, not intractable ([facility]) 09/19/2017 Mild intermittent asthma ([facility]) 02/28/2021 Primary localized osteoarthrosis of ankle [...] Back pain Common migraine (CMS/HCC) 08/17/2015 Depression ([facility]/HCC) H/O colonoscopy H/O umbilical hernia repair Insomnia 06/25/2017 Migraines (CMS/HCC) Nausea with vomiting 08/17/2015 Tendonitis of right hand Tension headache 08/17/2015 HISTORY PAST MEDICAL HISTORY SOCIAL HISTORY Past Medical History: Diagnosis Date Adenoma of left breast removed 2013 ADHD (attention deficit hyperactivity disorder) (CMS/HCC) Anemia Anxiety Asthma (CMS/HCC) Back pain Common migraine (CMS/HCC) 08/17/2015 Depression ([facility]/HCC) H/O colonoscopy 2012 H/O umbilical hernia repair 2008 Headache 08/17/2015 Inadequate sleep hygiene 04/23/2018 Insomnia 06/25/2017 Migraine (CMS/HCC) 03/22/2017 Migraines ([facility]) Nausea with vomiting 08/17/2015 Pain in [...] nursing note reviewed. Exam conducted with a fuller brush man present. Vitals: Estimated body mass index is [...] Raghavendra Vasquez DO documented in this encounter [facility] 04-08-2024 History of Present illness Narrative [...] Attention deficit hyperactivity disorder (ADHD), combined type ([facility]) 07/04/2022 Episodic mood disorder ([facility]) 07/04/2022 Generalized anxiety disorder ([facility]) 07/04/2022 Panic disorder ([facility]) 07/04/2022 Acquired scoliosis 09/09/2016 Allergic rhinitis 10/16/2019 Anxiety 01/31/2020 Asthma ([facility]) 12/31/2014 Chronic fatigue syndrome 07/03/2016 Chronic gastritis without bleeding 12/28/2022 Irritable bowel syndrome 07/03/2016 Migraine without aura and without status migrainosus, not intractable ([facility]) 09/19/2017 Mild intermittent asthma ([facility]) 02/28/2021 Primary localized osteoarthrosis of ankle and foot 03/13/2019 Vitamin D deficiency 12/28/2022 Headache 06/28/2023 Inadequate sleep hygiene 06/28/2023 Migraine ([facility]) 06/28/2023 Tenosynovitis of foot 06/28/2023 Nausea and vomiting 06/28/2023 Common migraine with intractable migraine ([facility]) 06/28/2023 Pain in limb 06/28/2023 Chronic tension-type headache, not intractable 06/28/2023 Sleep disturbance 06/28/2023 Insomnia, unspecified 06/28/2023 Other problems related to lifestyle 06/28/2023 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 08/10/2023 Resolved Ambulatory Problems Diagnosis Date Noted No Resolved Ambulatory Problems Past Medical History: Diagnosis Date Adenoma of left breast ADHD (attention deficit hyperactivity disorder) ([facility]) Anemia Back pain Common migraine ([facility]) 08/17/2015 Depression ([facility]) H/O colonoscopy H/O umbilical hernia repair Insomnia 06/25/2017 Migraines ([facility]) Nausea with vomiting 08/17/2015 Tendonitis of right hand Tension headache 08/17/2015 HISTORY PAST MEDICAL HISTORY SOCIAL HISTORY Past Medical History: Diagnosis Date Adenoma of left breast removed 2013 ADHD (attention deficit hyperactivity disorder) ([facility]) Anemia Anxiety Asthma ([facility]) Back pain Common migraine ([facility]/HCC) 08/17/2015 Depression ([facility]) H/O colonoscopy 2012 H/O umbilical hernia repair 2008 Headache 08/17/2015 Inadequate sleep hygiene 04/23/2018 Insomnia 06/25/2017 Migraine (CMS/HCC) 03/22/2017 Migraines ([facility]) Nausea with vomiting 08/17/2015 Pain in [...] nursing note reviewed. Exam conducted with a fuller brush man present. Vitals: Estimated body mass index is [...] Veda Sarmiento PA-C documented in this encounter [facility] 04-02-2024 History of Present illness Narrative Images from the original note were not included. Patient reports not starting the Zoloft after last visit. Tiki Moeller is a 38 y.o. female presents for Medication Management. HPI: Patient is here for medication follow up. Patient is currently 32weeks decided not to take zoloft. Got fired from [employer] due to falling asleep. She was feeling [...] removed 2013 ADHD (attention deficit hyperactivity disorder) ([facility]) Anemia Anxiety Asthma ([facility]) Back pain Common migraine (CMS/HCC) 08/17/2015 Depression [...] Name Age of Onset Depression Mother Idania Sawrtz Anxiety disorder Mother Idania Swartz Hyperlipidemia Mother [...] check for post documented in this encounter [facility] 03-25-2024 History of Present illness Narrative [...] 09/09/2016 Allergic rhinitis 10/16/2019 Anxiety 01/31/2020 Asthma ([facility]/HCC) 12/31/2014 Chronic fatigue syndrome 07/03/2016 Chronic gastritis without bleeding 12/28/2022 Irritable bowel syndrome 07/03/2016 Migraine without aura and without status migrainosus, not intractable ([facility]) 09/19/2017 Mild intermittent asthma ([facility]) 02/28/2021 Primary localized osteoarthrosis of ankle and foot 03/13/2019 Vitamin D deficiency 12/28/2022 Headache 06/28/2023 Inadequate sleep hygiene 06/28/2023 Migraine ([facility]/HCC) 06/28/2023 Tenosynovitis of foot 06/28/2023 Nausea and vomiting 06/28/2023 Common migraine with intractable migraine ([facility]) 06/28/2023 Pain in limb 06/28/2023 Chronic tension-type headache, not intractable 06/28/2023 Sleep disturbance 06/28/2023 Insomnia, unspecified 06/28/2023 Other problems related to lifestyle 06/28/2023 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 08/10/2023 Resolved Ambulatory Problems Diagnosis Date Noted No Resolved Ambulatory Problems Past Medical History: Diagnosis Date Adenoma of left breast ADHD (attention deficit hyperactivity disorder) ([facility]) Anemia Back pain Common migraine ([facility]) 08/17/2015 Depression ([facility]) H/O colonoscopy H/O umbilical hernia repair Insomnia 06/25/2017 Migraines ([facility]) Nausea with vomiting 08/17/2015 Tendonitis of right hand Tension headache 08/17/2015 HISTORY PAST MEDICAL HISTORY SOCIAL HISTORY Past Medical History: Diagnosis Date Adenoma of left breast removed 2013 ADHD (attention deficit hyperactivity disorder) ([facility]) Anemia Anxiety Asthma ([facility]) Back pain Common migraine ([facility]) 08/17/2015 Depression ([facility]) H/O colonoscopy 2012 H/O umbilical hernia repair 2007 Headache 08/17/2015 Inadequate sleep hygiene 04/23/2018 Insomnia 06/25/2017 Migraine ([facility]/HCC) 03/22/2017 Migraines ([facility]) Nausea with vomiting 08/17/2015 Pain in [...] nursing note reviewed. Exam conducted with a fuller brush man present. Vitals: Estimated body mass index is [...] Raghavendra Vasquez DO documented in this encounter [facility] 03-11-2024 History of Present illness Narrative [...] Attention deficit hyperactivity disorder (ADHD), combined type ([facility]) 07/04/2022 Episodic mood disorder ([facility]) 07/04/2022 Generalized anxiety disorder ([facility]) 07/04/2022 Panic disorder ([facility]) 07/04/2022 Acquired scoliosis 09/09/2016 Allergic rhinitis 10/16/2019 Anxiety 01/31/2020 Asthma ([facility]) 12/31/2014 Chronic fatigue syndrome 07/03/2016 Chronic gastritis without bleeding 12/28/2022 Irritable bowel syndrome 07/03/2016 Migraine without aura and without status migrainosus, not intractable ([facility]) 09/19/2017 Mild intermittent asthma ([facility]) 02/28/2021 Primary localized osteoarthrosis of ankle and foot 03/13/2019 Vitamin D deficiency 12/28/2022 Headache 06/28/2023 Inadequate sleep hygiene 06/28/2023 Migraine ([facility]) 06/28/2023 Tenosynovitis of foot 06/28/2023 Nausea and vomiting 06/28/2023 Common migraine with intractable migraine ([facility]) 06/28/2023 Pain in limb 06/28/2023 Chronic tension-type headache, not intractable 06/28/2023 Sleep disturbance 06/28/2023 Insomnia, unspecified 06/28/2023 Other problems related to lifestyle 06/28/2023 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 08/10/2023 Resolved Ambulatory Problems Diagnosis Date Noted No Resolved Ambulatory Problems Past Medical History: Diagnosis Date Adenoma of left breast ADHD (attention deficit hyperactivity disorder) ([facility]) Anemia Back pain Common migraine ([facility]) 08/17/2015 Depression ([facility]) H/O colonoscopy H/O umbilical hernia repair Insomnia 06/25/2017 Migraines ([facility]) Nausea with vomiting 08/17/2015 Tendonitis of right hand Tension headache 08/17/2015 HISTORY PAST MEDICAL HISTORY SOCIAL HISTORY Past Medical History: Diagnosis Date Adenoma of left breast removed 2013 ADHD (attention deficit hyperactivity disorder) ([facility]) Anemia Anxiety Asthma ([facility]) Back pain Common migraine ([facility]) 08/17/2015 Depression ([facility]) H/O colonoscopy 2012 H/O umbilical hernia repair 2008 Headache 08/17/2015 Inadequate sleep hygiene 04/23/2018 Insomnia 06/25/2017 Migraine ([facility]) 03/22/2017 Migraines ([facility]) Nausea with vomiting 08/17/2015 Pain in [...] nursing note reviewed. Exam conducted with a fuller brush man present. Vitals: Estimated body mass index is [...] Raghavendra Vasquez DO documented in this encounter [facility] 02-11-2024 History of Present illness [...] hyperactivity disorder (ADHD), combined type ([facility]) 07/04/2022 Episodic mood disorder ([facility]) 07/04/2022 Generalized anxiety disorder ([facility]) 07/04/2022 Panic disorder ([facility]) 07/04/2022 Acquired scoliosis 09/09/2016 Allergic rhinitis 10/16/2019 Anxiety 01/31/2020 Asthma ([facility]) 12/31/2014 Chronic fatigue syndrome 07/03/2016 Chronic gastritis without bleeding 12/28/2022 Irritable bowel syndrome 07/03/2016 Migraine without aura and without status migrainosus, not intractable ([facility]) 09/19/2017 Mild intermittent asthma ([facility]) 02/28/2021 Primary localized osteoarthrosis of ankle and foot 03/13/2019 Vitamin D deficiency 12/28/2022 Headache 06/28/2023 Inadequate sleep hygiene 06/28/2023 Migraine ([facility]) 06/28/2023 Tenosynovitis of foot 06/28/2023 Nausea and vomiting 06/28/2023 Common migraine with intractable migraine ([facility]) 06/28/2023 Pain in limb 06/28/2023 Chronic tension-type headache, not intractable 06/28/2023 Sleep disturbance 06/28/2023 Insomnia, unspecified 06/28/2023 Other problems related to lifestyle 06/28/2023 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 08/10/2023 Resolved Ambulatory Problems Diagnosis Date Noted No Resolved Ambulatory Problems Past Medical History: Diagnosis Date Adenoma of left breast ADHD (attention deficit hyperactivity disorder) ([facility]) Anemia Back pain Common migraine ([facility]) 08/17/2015 Depression ([facility]) H/O colonoscopy H/O umbilical hernia repair Insomnia 06/25/2017 Migraines ([facility]) Nausea with vomiting 08/17/2015 Tendonitis of right hand Tension headache 08/17/2015 HISTORY PAST MEDICAL HISTORY SOCIAL HISTORY Past Medical History: Diagnosis Date Adenoma of left breast removed 2013 ADHD (attention deficit hyperactivity disorder) ([facility]) Anemia Anxiety Asthma ([facility]) Back pain Common migraine ([facility]) 08/17/2015 Depression ([facility]) H/O colonoscopy 2012 H/O umbilical hernia repair 2008 Headache 08/17/2015 Inadequate sleep hygiene 04/23/2018 Insomnia 06/25/2017 Migraine (CMS/HCC) 03/22/2017 Migraines ([facility]) Nausea with vomiting 08/17/2015 Pain in limb [...] nursing note reviewed. Exam conducted with a fuller brush man present. Vitals: Estimated body mass index is [...] Raghavendra Vasquez DO documented in this encounter [facility] 01-10-2024 History of Present illness [...] hyperactivity disorder (ADHD), combined type ([facility]) 07/04/2022 Episodic mood disorder ([facility]) 07/04/2022 Generalized anxiety disorder ([facility]) 07/04/2022 Panic disorder ([facility]) 07/04/2022 Acquired scoliosis 09/09/2016 Allergic rhinitis 10/16/2019 Anxiety 01/31/2020 Asthma ([facility]) 12/31/2014 Chronic fatigue syndrome 07/03/2016 Chronic gastritis without bleeding 12/28/2022 Irritable bowel syndrome 07/03/2016 Migraine without aura and without status migrainosus, not intractable ([facility]) 09/19/2017 Mild intermittent asthma ([facility]) 02/28/2021 Primary localized osteoarthrosis of ankle and foot 03/13/2019 Vitamin D deficiency 12/28/2022 Headache 06/28/2023 Inadequate sleep hygiene 06/28/2023 Migraine ([facility]) 06/28/2023 Tenosynovitis of foot 06/28/2023 Nausea and vomiting 06/28/2023 Common migraine with intractable migraine ([facility]) 06/28/2023 Pain in limb 06/28/2023 Chronic tension-type headache, not intractable 06/28/2023 Sleep disturbance 06/28/2023 Insomnia, unspecified 06/28/2023 Other problems related to lifestyle 06/28/2023 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 08/10/2023 Resolved Ambulatory Problems Diagnosis Date Noted No Resolved Ambulatory Problems Past Medical History: Diagnosis Date Adenoma of left breast ADHD (attention deficit hyperactivity disorder) ([facility]) Anemia Back pain Common migraine ([facility]) 08/17/2015 Depression ([facility]) H/O colonoscopy H/O umbilical hernia repair Insomnia 06/25/2017 Migraines ([facility]) Nausea with vomiting 08/17/2015 Tendonitis of right hand Tension headache 08/17/2015 HISTORY PAST MEDICAL HISTORY SOCIAL HISTORY Past Medical History: Diagnosis Date Adenoma of left breast removed 2013 ADHD (attention deficit hyperactivity disorder) ([facility]) Anemia Anxiety Asthma ([facility]) Back pain Common migraine ([facility]) 08/17/2015 Depression (CMS/HCC) H/O colonoscopy 2012 H/O umbilical hernia repair 2008 Headache 08/17/2015 Inadequate sleep hygiene 04/23/2018 Insomnia 06/25/2017 Migraine (CMS/HCC) 03/22/2017 Migraines ([facility]) Nausea with vomiting 08/17/2015 Pain in [...] nursing note reviewed. Exam conducted with a fuller brush man present. Vitals: Estimated body mass index is [...] obtained without difficulty and patient was given [facility] order to have obtained. Sent [...] Raghavendra Vasquez DO documented in this encounter [facility] 01-01-2024 History of Present illness [...] visit. 20 weeks. 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 Psychosocial stressors include . SUBJECTIVE: PAST MEDICAL HISTORY: Past Medical History: Diagnosis Date Adenoma of left breast removed 2013 ADHD (attention deficit hyperactivity disorder) ([facility]) Anemia Anxiety Asthma ([facility]) Back pain Common migraine ([facility]) 08/17/2015 Depression ([facility]) H/O colonoscopy 2012 H/O umbilical hernia repair 2007 Headache 08/17/2015 Inadequate sleep hygiene 04/23/2018 Insomnia 06/25/2017 Migraine ([facility]) 03/22/2017 Migraines ([facility]) Nausea with vomiting 08/17/2015 Pain in [...] Time Memory/Concentration Short term intact and terminal make up operator intact Insight/Judgement Fair OBJECTIVE: Visit Vitals [...] Visit time :32min documented in this encounter [facility] 11-28-2023 History of Present illness [...] Attention deficit hyperactivity disorder (ADHD), combined type ([facility]) 07/04/2022 Episodic mood disorder ([facility]) 07/04/2022 Generalized anxiety disorder ([facility]) 07/04/2022 Panic disorder ([facility]) 07/04/2022 Acquired scoliosis 09/09/2016 Allergic rhinitis 10/16/2019 Anxiety 01/31/2020 Asthma ([facility]) 12/31/2014 Chronic fatigue syndrome 07/03/2016 Chronic gastritis without bleeding 12/28/2022 Irritable bowel syndrome 07/03/2016 Migraine without aura and without status migrainosus, not intractable ([facility]) 09/19/2017 Mild intermittent asthma ([facility]) 02/28/2021 Primary localized osteoarthrosis of ankle and foot 03/13/2019 Vitamin D deficiency 12/28/2022 Headache 06/28/2023 Inadequate sleep hygiene 06/28/2023 Migraine (CMS/HCC) 06/28/2023 Tenosynovitis of foot 06/28/2023 Nausea and vomiting 06/28/2023 Common migraine with intractable migraine ([facility]) 06/28/2023 Pain in limb 06/28/2023 Chronic tension-type headache, not intractable 06/28/2023 Sleep disturbance 06/28/2023 Insomnia, unspecified 06/28/2023 Other problems related to lifestyle 06/28/2023 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 08/10/2023 Resolved Ambulatory Problems Diagnosis Date Noted No Resolved Ambulatory Problems Past Medical History: Diagnosis Date Adenoma of left breast ADHD (attention deficit hyperactivity disorder) ([facility]) Anemia Back pain Common migraine ([facility]) 08/17/2015 Depression ([facility]) H/O colonoscopy H/O umbilical hernia repair Insomnia 06/25/2017 Migraines ([facility]) Nausea with vomiting 08/17/2015 Tendonitis of right hand Tension headache 08/17/2015 HISTORY PAST MEDICAL HISTORY SOCIAL HISTORY Past Medical History: Diagnosis Date Adenoma of left breast removed 2013 ADHD (attention deficit hyperactivity disorder) ([facility]) Anemia Anxiety Asthma ([facility]) Back pain Common migraine ([facility]) 08/17/2015 Depression ([facility]) H/O colonoscopy 2012 H/O umbilical hernia repair 2007 Headache 08/17/2015 Inadequate sleep hygiene 04/23/2018 Insomnia 06/25/2017 Migraine (CMS/HCC) 03/22/2017 Migraines ([facility]) Nausea with vomiting 08/17/2015 Pain in [...] nursing note reviewed. Exam conducted with a fuller brush man present. Vitals: Estimated body mass index is [...] or undercooked meat, and stay away from [facility]. Patient has been consulted regarding any [...] Raghavendra Vasquez DO documented in this encounter [facility] 11-27-2023 History of Present illness [...] work done. 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 Psychosocial stressors include . SUBJECTIVE: PAST MEDICAL [...] Time Memory/Concentration Short term intact and terminal make up operator intact Insight/Judgement Good OBJECTIVE: Visit Vitals [...] F/U 6 weeks documented in this encounter [facility] 11-01-2023 History of Present illness [...] the following prescription(s): albuterol hfa, albuterol hfa, iskbomybzv-qhcfujxmgamrj-ksgbufss , cyanocobalamin, d3-1000, dicyclomine, fluticasone, onabotulinumtoxina, ondansetron, promethazine, sertraline, and tizanidine. Medical History: Active Ambulatory Problems Diagnosis Date Noted Attention deficit hyperactivity disorder (ADHD), combined type (CMS/HCC) 07/04/2022 Episodic mood disorder (CMS/HCC) 07/04/2022 Generalized anxiety disorder ([facility]) 07/04/2022 Panic disorder ([facility]) 07/04/2022 Acquired scoliosis 09/09/2016 Allergic rhinitis 10/16/2019 Anxiety 01/31/2020 Asthma ([facility]) 12/31/2014 Chronic fatigue syndrome 07/03/2016 Chronic gastritis without bleeding 12/28/2022 Irritable bowel syndrome 07/03/2016 Migraine without aura and without status migrainosus, not intractable ([facility]) 09/19/2017 Mild intermittent asthma ([facility]) 02/28/2021 Primary localized osteoarthrosis of ankle and foot 03/13/2019 Vitamin D deficiency 12/28/2022 Headache 06/28/2023 Inadequate sleep hygiene 06/28/2023 Migraine ([facility]) 06/28/2023 Tenosynovitis of foot 06/28/2023 Nausea and vomiting 06/28/2023 Common migraine with intractable migraine ([facility]) 06/28/2023 Pain in limb 06/28/2023 Chronic tension-type headache, not intractable 06/28/2023 Sleep disturbance 06/28/2023 Insomnia, unspecified 06/28/2023 Other problems related to lifestyle 06/28/2023 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 08/10/2023 Resolved Ambulatory Problems Diagnosis Date Noted No Resolved Ambulatory Problems Past Medical History: Diagnosis Date Adenoma of left breast ADHD (attention deficit hyperactivity disorder) ([facility]) Anemia Back pain Common migraine ([facility]) 08/17/2015 Depression ([facility]) H/O colonoscopy H/O umbilical hernia repair Insomnia 06/25/2017 Migraines ([facility]) Nausea with vomiting 08/17/2015 Tendonitis of [...] pt to schedule US w/tbh. Pt desired [employer] 21 advised pt to wait until 10 [...] An Duffy MA documented in this encounter [facility] 10-19-2023 Telephone encounter Note Pt needs a letter stating that she was seen in office on 10/17 Please Fax to [phone] [facility] 10-19-2023 Miscellaneous Notes Pt needs a letter stating that she was seen in office on 10/17 Please Fax to [phone] documented in this encounter [facility] 10-18-2023 History of Present illness [...] 2 puffs, Inhalation, Every 4 hours PRN gimpxjnpkx-wihnpakelbbkm-iejqzeam 50-325-40 MG tablet TAKE 1 TABLET BY [...] for further guidance. documented in this encounter [facility] 10-18-2023 History of Present illness Narrative Images from the original note were not included. Subjective Tiki Moeller is a 38 y.o. female. Patient was to be seen for botox injections but she just found out that she is . She was not planning but not preventing . 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 She has been receiving the Botox injections [...] during those pregnancies. She has having some client partner sickness with nausea. Objective Neurological Exam Physical Exam No chief complaint on file. Subjective Tiki Moeller, 38 y.o., female HPI Past Medical History: Diagnosis Date Adenoma of left breast removed 2013 ADHD (attention deficit hyperactivity disorder) ([facility] Anemia Anxiety Asthma ([facility]) Back pain Common migraine ([facility]) 08/17/2015 Depression ([facility]) H/O colonoscopy 2012 H/O umbilical hernia repair 2007 Headache 08/17/2015 Inadequate sleep hygiene 04/23/2018 Insomnia 06/25/2017 Migraine ([facility]) 03/22/2017 Migraines ([facility]) Nausea with vomiting 08/17/2015 Pain in [...] Return to clinic: documented in this encounter [facility] 08-03-2021 Note FINDINGS: Sonographic evaluation targeted to the painful palpable areas within the right breast. Multiple subcentimeter benign simple cysts within the right upper quadrant. Mild periareolar ductal dilatation (3-4 mm diameter). No suspicious solid nodule or mass. IMPRESSION: BI RADS 2 : BENIGN FINDINGS Report reported and signed by Alexei Smith on 08/03/2021 [id number] [facility] Instructional Designer 05-11-2021 Evaluation note Encounter Date Diagnosis Assessment Notes Apr, Encounter for immunization (ICD-10 - Z23) Patient presents for COVID-19 vaccination #2. Pre-screening form answers evaluated with patient. Patient denies current illness or allergic reaction to component of COVID-19 vaccine. Patient provided with current copy of EUA. [facility] Other Evaluation note* Diagnosis Attention deficit hyperactivity disorder (ADHD), combined type (CMS/HCC) Generalized anxiety disorder (CMS/HCC) Generalized anxiety disorder documented in this encounter [facility] HealthcareEvaluation note* Diagnosis First trimester state, incidental documented in this encounter [facility] HealthcareEvaluation note* Diagnosis 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)- Primary Generalized anxiety disorder (CMS/HCC) Generalized anxiety disorder Primary insomnia Persistent disorder of initiating or maintaining sleep , unspecified gestational age documented in this encounter [facility] HealthcareEvaluation note* Diagnosis Generalized anxiety disorder (CMS/HCC)- Primary Generalized anxiety disorder documented in this encounter [facility] HealthcareEvaluation note* Diagnosis Well woman exam with routine gynecological exam Routine gynecological examination Second trimester state, incidental 18 weeks gestation of Vaginal discharge Leukorrhea, not specified as infective STD exposure Screening, , for anatomic survey Encounter for anatomic survey Gastroesophageal reflux in documented in this encounter [facility] HealthcareEvaluation note* Diagnosis 23 weeks gestation [...] Surgical History tibial and fibular sesmoid 10-15 [facility] Other Summary Purpose Family History No Family History Records FoundNo Family History Records FoundNo Family History Records FoundNo Family History Records FoundNo Family History Records Found Advance Directives No Advanced Directives Records FoundNo Advanced Directives Records FoundNo Advanced Directives Records FoundNo Advanced Directives Records FoundNo Advanced Directives Records Found Additional Source Comments INFORMATION SOURCE (unrecogn ized section and content) DATE CREATED AUTHOR 05/25/2021 [facility] DATE CREATED AUTHOR AUTHOR'S ORGANIZ ATION 08/04/2021 [facility] [place] [facility] DATE CREATED AUTHOR AUTHOR'S ORGANIZ ATION 11/23/2021 [facility] DATE CREATED AUTHOR AUTHOR'S ORGANIZ ATION 12/19/2022 [facility] DATE CREATED AUTHOR AUTHOR'S ORGANIZ ATION 05/01/2024 [facility] dical Specialists EPIC REASON FOR VISIT (unrecogniz ed section and content) Reason Comments Routine Visit Reason Comments Med Management Follow-up Reason Comments Well Women Visit Routine Visit STI Screening Reason Comments Nausea/Vomiting In Reason Comments Amenorrhea Reason Comments Migraine Care Teams (unrecognized sec tion and content) Mining Consultant Relationship Specialty Start Date End Date Ysabel Cabral MD [address] [place] [address] PCP - General Family Medicine 07/29/22 Ale Zaldivar MD [address] [facility] [place] [address] PCP - [employer] 05/28/23 Mining Consultant Relationship Specialty Start Date End Date Ysabel Cabral MD [address] [facility] [place] [address] PCP - General Family Medicine 07/29/22 Ale Zaldivar MD [address] [facility] [place] [address] PCP - [employer] 05/28/23 Mining Consultant Relationship Specialty Start Date End Date Ysabel Cabral MD [address] [facility] [place] [address] PCP - General Family Medicine 07/29/22 Ale Zaldivar MD [address] [facility] [place] [address] PCP - [employer] 05/28/23 Mining Consultant Relationship Specialty Start Date End Date Ysabel Cabral MD [address] [place] [address] PCP - General Family Medicine 07/29/22 Ale Zaldivar MD [address] [place] [address] PCP - [employer] 05/28/23 Mining Consultant Relationship Specialty Start Date End Date Ysabel Cabral MD [address] [place] [address] PCP - General Family [facility] 07/29/22 Ale Zaldivar MD [address] [place] [address] PCP - [employer] 05/28/23 Mining Consultant Relationship Specialty Start Date End Date Ysabel Cabral MD [address] [place] [address] PCP - General [facility] 07/29/22 Ale Zaldivar MD [address] [place] [address] PCP - [employer] 05/28/23 Mining Consultant Relationship Specialty Start Date End Date Ysabel Cabral MD [address] [place] [address] PCP - General Family Medicine 07/29/22 Chloe Carvajal NP [address] [place] [address] PCP - [employer] 11/27/23 Mining Consultant Relationship Specialty Start Date End Date Ysabel Cabral MD [address] [place] [address] PCP - General Family Medicine 07/29/22 Chloe Carvajal, CHIEF CONTROLLER STATION [address] [place] [address] PCP - [employer] 11/27/23 Mining Consultant Relationship Specialty Start Date End Date Ysabel Cabral MD [address] [place] [address] PCP - General Family Medicine 07/29/22 Chloe Carvajal, CHIEF CONTROLLER STATION [address] [facility] [place] [address] PCP - [employer] 11/27/23 Mining Consultant Relationship Specialty Start Date End Date Ysabel Cabral MD [address] [place] [address] PCP - General Family Medicine 07/29/22 Chloe Carvajal, CHIEF CONTROLLER STATION PCP - [employer] 11/27/23 Mining Consultant Relationship Specialty Start Date End Date Ysabel Cabral MD [address] [facility] [place] [address] PCP - General Family Medicine 07/29/22 Chloe Carvajal, CHIEF CONTROLLER STATION PCP - [employer] 11/27/23 Mining Consultant Relationship Specialty Start Date End Date Ysabel Cabral MD [address] [place] [address] PCP - General Family Medicine 07/29/22 Ale Zaldivar MD [address] [place] [address] PCP - [employer] 05/28/23 Mining Consultant Relationship Specialty Start Date End Date Ysabel Cabral MD [address] [place] [address] PCP - General Family Medicine 07/29/22 Ale Zaldivar MD [address] [place] [address] PCP - [employer] 05/28/23 Mining Consultant Relationship Specialty Start Date End Date Ysabel Cabral MD [address] [place] [address] PCP - General Family Medicine 07/29/22 Ael Zaldivar MD [address] [place] [address] PCP - [employer] 05/28/23 Mining Consultant Relationship Specialty Start Date End Date Ysabel Cabral MD [address] [place] [address] PCP - General Family Medicine 07/29/22 Chloe Carvajal NP PCP - [employer] 11/27/23 Mining Consultant Relationship Specialty Start Date End Date Ysabel Cabral MD [address] [place] [address] PCP - General Family Medicine 07/29/22 Ale Zaldivar MD [address] [place] [address] PCP - [employer] 05/28/23 Mining Consultant Relationship Specialty Start Date End Date Ysabel Cabral MD [address] [place] [address] PCP - General Family Medicine 07/29/22 Ale Zaldivar MD [address] [place] [address] PCP - [employer] 05/28/23 Mining Consultant Relationship Specialty Start Date End Date Ysabel Cabral MD [address] [place] [address] PCP - General Family Medicine 07/29/22 Chloe Carvajal, CHIEF CONTROLLER STATION PCP - [employer] 11/27/23 Mining Consultant Relationship Specialty Start Date End Date Ysabel Cabral MD [address] [place] [address] PCP - General Family Medicine 07/29/22 Chloe Carvajal, CHIEF CONTROLLER STATION PCP - [employer] 11/27/23 Mining Consultant Relationship Specialty Start Date End Date Ysabel Cabral MD [address] [place] [address] PCP - General Family Medicine 07/29/22 Chloe Carvajal, CHIEF CONTROLLER STATION PCP [facility] 11/27/23 Mining Consultant Relationship Specialty Start Date End Date Ysabel Cabral MD [address] [place] [address] PCP - General [facility] 07/29/22 Chloe Carvajla, CHIEF CONTROLLER STATION PCP - [employer] 11/27/23 Mining Consultant Relationship Specialty Start Date End Date Ysabel Cabral MD [address] [place] [address] PCP - [facility] 07/29/22 Chloe Carvajal, CHIEF CONTROLLER STATION PCP - [employer] 11/27/23 Teresa Ornelas, TECHNICAL SUPPORT 1 SOFTWARE ENGINEER-ELECTROTYPE MOLDER [address] [facility] [address] [place] [address] Nurse Practitioner Psychiatry 03/14/24 Mining Consultant Relationship Specialty Start Date End Date Ysabel Cabral MD [address] [place] [address] PCP - [facility] 07/29/22 Chloe Carvajal, CHIEF CONTROLLER STATION PCP - [employer] 11/27/23 Teresa Ornelas, TECHNICAL SUPPORT 1 SOFTWARE ENGINEER-ELECTROTYPE MOLDER [address] [facility] [address] [place] [address] Nurse Practitioner Psychiatry 03/14/24 Mining Consultant Relationship Specialty Start Date End Date Ysabel Cabral MD [address] [place] [address] PCP - [facility] 07/29/22 Chloe Carvajal, CHIEF CONTROLLER STATION PCP - [employer] 11/27/23 Teresa Ornelas, TECHNICAL SUPPORT 1 SOFTWARE ENGINEER-ELECTROTYPE MOLDER [address] [facility] [address] [place] [address] Nurse Practitioner Psychiatry 03/14/24 Mining Consultant Relationship Specialty Start Date End Date Ysabel Cabral MD [address] [facility] [place] [address] PCP - General Family Medicine 07/29/22 Ysabel Cabral MD [address] [facility] [place] [address] PCP - [employer] 02/27/24 Teresa Ornelas TECHNICAL SUPPORT 1 SOFTWARE ENGINEER-ELECTROTYPE MOLDER [address] [place] [id number] Nurse Practitioner Psychiatry 03/14/24 Mining Consultant Relationship Specialty Start Date End Date Ysabel Cabral MD [address] [facility] [place] [address] PCP - General [facility] 07/29/22 Ysabel Cabral MD [address] [facility] [place] [address] PCP - [employer] 02/27/24 Teresa Ornelas TECHNICAL SUPPORT 1 SOFTWARE ENGINEER-ELECTROTYPE MOLDER [address] [place] [address] Nurse Practitioner Psychiatry 03/14/24 Mining Consultant Relationship Specialty Start Date End Date Ysabel Cabral MD [address] [facility] [place] [address] PCP - General Family Medicine 07/29/22 Ysabel Cabral MD [address] [place] [address] PCP - [employer] 02/27/24 Teresa Ornelas, TECHNICAL SUPPORT 1 SOFTWARE ENGINEER-ELECTROTYPE MOLDER [address] [place] [address] Nurse Practitioner Psychiatry 03/14/24 Mining Consultant Relationship Specialty Start Date End Date Ysabel Cabral MD [address] [facility] [place] [address] PCP - General Family Medicine 07/29/22 Ysabel Cabral MD [address] [facility] [place] [address] PCP - [employer] 02/27/24 Teresa Ornelas, TECHNICAL SUPPORT 1 SOFTWARE ENGINEER-ELECTROTYPE MOLDER [address] [address] Nurse Practitioner Psychiatry 03/14/24 Mining Consultant Relationship Specialty Start Date End Date Ysabel Cabral MD [address] [facility] [place] [address] PCP - General Family [facility] 07/29/22 Ysabel Cabral MD [address] [facility] [place] [address] PCP - [employer] 02/27/24 Teresa Ornelas, TECHNICAL SUPPORT 1 SOFTWARE ENGINEER-ELECTROTYPE MOLDER [address] [address] Nurse Practitioner Psychiatry 03/14/24 FOR RECORDS PERTAINING [...] BE BASED ON THE PRIMARY CLINICAL RECORDS. [facility] provides no warranty or guarantee of the accuracy or completeness of information in this document.
[2024-05-10 00:24] VITALS: BP 129/76; PULSE 116
[2024-05-10 02:02] LABS: Bilirubin Urine NEGATIVE (NEGATIVE); Blood Urine NEGATIVE (NEGATIVE); Clarity Urine CLEAR (CLEAR); Color Urine LT. YELLOW (YELLOW); Glucose Urine UA NEGATIVE (NEGATIVE); Ketones Urine NEGATIVE (NEGATIVE); Leukocyte Esterase Urine TRACE (NEGATIVE); Nitrite Urine NEGATIVE (NEGATIVE); Protein Urine NEGATIVE (NEG/TRACE); Specific Gravity Urine <=1.005 (1.005-1.025); Urobilinogen Urine 0.2 EU/dL (0.2-1.0)
[2024-05-10 02:18] LABS: Alanine Aminotransferase 14 U/L (14-59); Albumin Globulin Ratio 0.6; Albumin Level 2.7 g/dL (3.4-5.0); Alkaline Phosphatase 140 U/L (46-116); Anion Gap 14.5; Aspartate Amino Transferase 15 U/L (15-37); BUN Creatinine Ratio 8.3; Bilirubin Total 0.2 mg/dL (0.2-1.0); Calcium 8.9 mg/dL (8.5-10.1); Carbon Dioxide 23.7 mmol/L (21.0-32.0); Chloride 103 mmol/L (98-107); Estimated GFR (African America >60 (>=60 mL/min/1.73m^2); Estimated GFR (Non-African Ame >60 (>=60 mL/min/1.73m^2); Globulin 4.2 g/dL; Glucose 81 mg/dL (74-106); Potassium 3.2 mmol/L (3.5-5.1); Sodium 138 mmol/L (136-145); Total Protein 6.9 g/dL (6.4-8.2)
[2024-05-10 02:25] LABS: Urine Microscopic Indicated YES
[2024-05-10 02:33] LABS: Bacteria Urine SMALL #/HPF (NONE SEEN); Cast Seen? NONE SEEN #/LPF (NONE SEEN); Crystals Seen? None Seen #/HPF (None Seen); Mucus Urine NONE SEEN (NONE SEEN); RBC Urine 0-2 #/HPF (0-2); Squamous Epithelial Cell Urine MODERATE #/LPF (NONE/RARE); Urine Culture Indicated YES-LC
[2024-05-10] MEDS: DIPHENHYDRAMINE HCL 25 MG CAPSULE PO (03:10)
[2024-05-10 06:19] VITALS: BP 111/69; PULSE 93
[2024-05-10 08:29] VITALS: TEMP 36.5
[2024-05-10 08:30] VITALS: BP 110/67; PULSE 89
--- NOTE | 2024-05-10 09:29 | P.OBLDTN_ITS ---
OB - Triage/Final Diagnosis Visit Information Date of evaluation: 05/10/24 Reason for evaluation: other Comments/Additional reasons for admission: 36 week , presents with itching - started on her feet and raised up her whole body with rash and welts per patient. GFM. Patient denies any new exposures at home including no new soaps/shampoos/laundry detergent. She does have a dog at home but again nothing new. This morning patient is much better. She did receive one dose of benadryl last night but does not want anymore. Patient is requesting discharge this morning. Evaluation Laboratory results: Laboratory Tests 05/10/24 05/10/24 00:20 01:47 Sodium 138 Potassium 3.2 L Chloride 103 Carbon Dioxide 23.7 Anion Gap 14.5 BUN 5.0 L Creatinine 0.60 Est GFR ( Amer) >60 Est GFR (Non-Af Amer) >60 BUN/Creatinine Ratio 8.3 Glucose 81 Calcium 8.9 Total Bilirubin 0.2 AST 15 ALT 14 Alkaline Phosphatase 140 H Total Protein 6.9 Albumin 2.7 L Globulin 4.2 Albumin/Globulin Ratio 0.6 Urine Color Lt. yellow Urine Clarity Clear Urine pH 6.0 Ur Specific [place] <=1.005 A Urine Protein Negative Urine Glucose (UA) Negative Urine Ketones Negative Urine Occult Blood Negative Urine Nitrite Negative Urine Bilirubin Negative Urine Urobilinogen 0.2 Ur Leukocyte Esterase Trace A Urine RBC 0-2 Urine WBC 2-5 A Ur Squamous Epith Cells Moderate A Urine Crystals None seen Urine Bacteria Small A Urine Casts None seen Urine Mucus None seen Ur Culture Indicated? Yes-lc Vital signs: Vital Signs - 24 hr 05/10/24 00:24 05/10/24 06:19 05/10/24 08:29 Temperature 97.7 F Pulse Rate 116 H 93 H Blood Pressure 129/76 111/69 05/10/24 08:30 Temperature Pulse Rate 89 Blood Pressure 110/67 heart rate baseline: 135 detention variability: Moderate (6-25 bpm) monitor accelerations: Present monitor decelerations: None Final Diagnosis (1) Pruritus of in third trimester: Status: Acute Problem details: Improved symptoms today, no evident rash this AM, US of Gall bladder ordered then discharge. Patient already has a follow up appointment with Dr Vasquez on Sunday. Mentioned to patient that urine culture sent thru lab and to update this with Dr Vasquez. All questions answered.
--- NOTE | 2024-05-10 09:50 | PC.NURSE ---
pt given discharge instructions, verbalizes understanding, Dr Brooks speaks with pt about gallbladder US results and states to pt to not consume any deep fried or fatty foods. pt states ok. upon discharge pt eating oreos.
== END 2024-05-10 09:45 | disposition home or self-care (01) ==
PROVIDERS: Admitting Provider Obstetrics & Gynecology Gynecology; PCP Family Medicine; Visit Provider Obstetrics & Gynecology Gynecology
DX: O26.893 Other specified pregnancy related conditions, third trimester (principal); L29.9 Pruritus, unspecified; Z3A.36 36 weeks gestation of pregnancy; O99.613 Diseases of the digestive system complicating pregnancy, third trimester; K82.4 Cholesterolosis of gallbladder
CPT/HCPCS: 36415; 59025; 76705; 80053; 81001; 87086; G0378; G0379

== ENCOUNTER 2024-05-13 15:25 | Outpatient (OUT) | payer OTHER, SELFPAY ==
--- NOTE | 2024-05-13 | US_ITS ---
[place] [id number] Patient Name: JESSICA MOELLER MRN: [id number] date: 1985 Sex: F Assigned Patient Location: [facility] Current Patient Location: Accession/Order Number: [id number] Exam Date: 05/14/2024 11:10 Report Date: 05/14/2024 12:04 At the request of: MARGO SARMIENTO Procedure: US OB BPP w non-stress Biophysical profile. Reason for exam: Advanced maternal age. COMPARISON: BPP 05/06/2024 TECHNIQUE: Transabdominal imaging of the gravid uterus was obtained. FINDINGS: Bookkeeping Clerks Supervisor reports the biophysical profile is 8 out of 8. JT is normal at 13.2 cm. heart rate 147bpm. US/US OB BPP w non-stress IMPRESSION: BPP 8 out of 8. Impression dictated by: Alexei Ibrahim Jr., DTiOTi05/14/2024 12:04 PM Dictation Location: [facility] Electronically authenticated by: [id number] Y Date: 05/14/2024 12:04
--- NOTE | 2024-05-13 | US_ITS ---
[address] [address] Patient Name: JESSICA MOELLER MRN: [id number] date: 1985 Sex: F Assigned Patient Location: [place] Current Patient Location: Accession/Order Number: [id number] Exam Date: 05/14/2024 11:05 Report Date: 05/14/2024 12:04 At the request of: MARGO SARMIENTO Procedure: US OB growth Growth ultrasound. Reason for exam: Advanced maternal age. COMPARISON: Growth ultrasound 04/15/2024 TECHNIQUE: Transabdominal imaging of the gravid uterus was obtained. FINDINGS: Single live intrauterine 36 weeks 4 days by anatomic measurements. Appropriate growth by dating. heart rate 147 bpm. JT is normal at 13.17 cm. Estimated weight is 3070 g. position is cephalic at time of scanning. US/US OB growth IMPRESSION: Single live intrauterine 36 weeks 4 days by anatomic measurements. Appropriate growth by dating. Impression dictated by: Alexei Ibrahim Jr., D.O.05/14/2024 12:04 PM Dictation Location[facility] Electron[facility] authenticated by: [id number] Y Date: 05/14/2024 12:04
[2024-05-13 15:57] VITALS: BP 108/65; PULSE 90
== END 2024-05-13 16:42 | disposition home or self-care (01) ==
LOC: US 15:25 → FBC 15:27
PROVIDERS: PCP Family Medicine; Visit Provider Physician Assistant
DX: O26.843 Uterine size-date discrepancy, third trimester (principal); Z3A.36 36 weeks gestation of pregnancy
CPT/HCPCS: 76816; 76818

== ENCOUNTER 2024-05-13 21:31 | Outpatient (REF) | payer OTHER, SELFPAY ==
--- OUTSIDE RECORDS SUMMARY | 2024-05-13 21:35 | XMS_ITS | CCD ---
Author Organization [facility] Care Team Providers Care Program Manager Slp Name Role Phone Vicky Joe Unavailable WEST, DR SANON Admitting Unavailable KARASIK, DR SANON Attending Unavailable KARASIK, DR SANON Consulting Unavailable KARASIK, DR SANON Attending Unavailable KARASIK, DR SANON Consulting Unavailable KARASIK, DR SANON Admitting Unavailable CHLOE CARVAJAL Attending Unavailable CHLOE CARVAJAL Consulting Unavailable CHLOE CARVAJAL Admitting Unavailable Ysabel Cabral MD Primary Care Provider Ale Zaldivar MD Unavailable [phone] Dillon MAGAZINE WORKER, Chloe Swift Unavailable Dillon MAGAZINE WORKER, Chloe R Unavailable Jo Ann-Nosmahendra SKILLED NURSING FACILITY COUNSELOR-HOUSEKEEPING DEPARTMENT WORKERTeresa Unavailable Ysabel Cabral MD Unavailable RAGHAVENDRA VASQUEZ [...] source) Aspirin Drug Allergy shortness of breath [employer] Other (20 sources) Diclofenac Drug Allergy 07-05-19 Unknown [employer] Other (20 sources) Ibuprofen Drug Allergy 07-05-19 Unknown [employer] Other (20 sources) Naproxen Drug Allergy 07-05-19 Unknown [employer] Other (20 sources) NSAIDs Drug allergy 07-05-19 Unknown [employer] Other (1 source) Aspirin Drug Allergy 02-26-18 90 [facility] Repository (1 source) cyclobenzaprine Drug Allergy 01-10-20 15 [facility] Repository (1 source) Diclofenac Drug Allergy 01-10-20 15 [facility] Repository (1 source) Ibuprofen Drug Allergy 08-04-19 16 [facility] Repository (1 source) NSAIDs Drug allergy (disorder) 01-02-20 14 [facility] Repository (20 sources) Aluminum aspirin Drug Allergy 07-05-19 23 [facility] (20 sources) Amitriptyline Drug Allergy 03-22-19 18 [facility] (20 sources) cyclobenzaprine Drug Allergy 01-24-20 16 [facility] (20 sources) Lamotrigine Allergy to substance 07-05-19 23 [facility] (20 sources) meloxicam Drug Allergy 07-05-19 23 Unknown [facility] (20 sources) Sertraline Drug Allergy 01-01-20 24 [facility] [...] 3 01/10/2024 Active take 1 capsule by [facility] every twenty-four hours Omeprazole 20 MG [...] 20 tablet 1 09/24/2023 11/28/2023 Discontinued (Other) [id number] 200 actuat albuterol 0.09 mg/actuat metered dose [...] US OB BPP W NON-STRESS on 04-29-2024 [place] [address] Ultrasound Report Signed Patient: TIKI MOELLER MR#: [id number] : 1985 Acct:[id number] Age/Sex: 38 / F ADM Date: 04/29/24 Loc: [place] [address]: Veda Sarmiento Ordering Physician: Vead Sarmiento Date of Service: 04/29/24 Procedure(s): US OB BPP w non-stress Accession Number(s): [id number] cc: Veda Sarmiento; YSABEL CABRAL [place] [id number] Patient Name: TIKI MOELLER MRN: [id number] date: 1985 Sex: F Assigned Patient Location: [facility] Current Patient Location: [facility] Accession/Order Number: [id number] Exam Date: 04/29/2024 16:11 Report Date: 04/29/2024 16:12 At the request of: VEAD SARMIENTO Procedure: US OB BPP w non-stress Biophysical profile. Reason for exam: Advanced maternal age. COMPARISON: BPP 04/22/2024 TECHNIQUE: Transabdominal imaging of the gravid uterus was obtained. FINDINGS: Mobile Marketing Manager reports the biophysical profile is 8 out of 8. JT is normal at 17.9 cm. heart rate 129bpm. US/US OB BPP w non-stress IMPRESSION: BPP 8 out of 8. Impression dictated by: Alexei Ibrahim Jr. DTiOTi04/29/2024 4:12 PM Dictation Location: RADIO-PC-23 Electronically authenticated by: [id number] Y Date: 04/29/2024 16:12 Dictated By: Alexei Ibrahim M.D. Signed By: 04/29/241613 DD/ 11 TD/TT: Lathmaker: [facility] Radiology, Radiologist, - 04/29/2024 [place] [address] Ultrasound Report Signed Patient: TIKI MOELLER MR#: [id number] : 1985 Acct:[id number] Age/Sex: 38 / F ADM Date: 04/29/24 Loc: [place] [address]: Veda Sarmiento Ordering Physician: Veda Sarmiento Date of Service: 04/29/24 Procedure(s): US OB BPP w non-stress Accession Number(s): [id number] cc: Veda Sarmiento; YSABEL CABRAL [place] [address] Patient Name: TIKI MOELLER MRN: [facility]:[id number] date: 1985 Sex: F Assigned Patient Location: [facility] Current Patient Location: [facility] Accession/Order Number: [id number] Exam Date: 04/29/2024 16:11 Report Date: 04/29/2024 16:12 At the request of: VEDA SARMIENTO Procedure: US OB BPP w non-stress Biophysical profile. Reason for exam: Advanced maternal age. COMPARISON: BPP 04/22/2024 TECHNIQUE: Transabdominal imaging of the gravid uterus was obtained. FINDINGS: Mobile Marketing Manager reports the biophysical profile is 8 out of 8. JT is normal at 17.9 cm. heart rate 129bpm. US/US OB BPP w non-stress IMPRESSION: BPP 8 out of 8. Impression dictated by: Alexei Ibrahim Jr., DTiOTi04/29/2024 4:12 PM Dictation Location: RADIO-PC-23 Electronically authenticated by: [id number] Y Date: 04/29/2024 16:12 Dictated By: Alexei Ibrahim M.D. Signed By: 04/29/241613 DD/ 11 TD/TT: Lathmaker: [facility] Radiology Study observation (narrative) [facility] US OB BPP W NON-STRESS Ordered By: Radiologist Radiology on 04-29-2024 [facility] Work Phone: Urinalysis macro (dipstick) [...] mg/dL [facility] Leukocytes, UA Trace Negative - 500+++ Doe/mcL [facility] Nitrite, UA Negative Negative - Positive [facility] pH, UA 7 5 - 9 [facility] Protein, UA Positive Negative - 2000(20) ++++ mg/dL [facility] Comment on above: 30mg/dL Spec Grav, UA 1.02 1 - 1.03 [facility] Urobilinogen, UA 1.0 0.2 - 12 mg/dL [facility] US OB BPP W NON-STRESS on 04-22-2024 [place] [id number] Ultrasound Report Signed Patient: TIKI MOELLER MR#: [id number] : 1985 Acct:[id number] Age/Sex: 38 / F ADM Date: 04/22/24 Loc: US Attending Dr: Veda Sarmiento Ordering Physician: Veda Sarmiento Date of Service: 04/22/24 Procedure(s): US OB BPP w non-stress Accession Number(s): [id number] cc: Veda Sarmiento; YSABEL CABRAL [place] [id number] Patient Name: TIKI MOELLER MRN: [id number]:[id number] date: 1985 Sex: F Assigned Patient Location: [facility] Current Patient Location: Accession/Order Number: [id number] Exam Date: 04/22/2024 23:02 Report Date: 04/22/2024 23:05 At the request of: VEDA SARMIENTO Procedure: US OB BPP w non-stress Biophysical profile. Reason for exam: Advanced maternal age. COMPARISON: BPP 04/15/2024. TECHNIQUE: Transabdominal imaging of the gravid uterus was obtained. FINDINGS: Mobile Marketing Manager reports the biophysical profile is 8 out of 8. JT is normal at 13.9 cm. heart rate 156 bpm. US/US OB BPP w non-stress IMPRESSION: BPP 8 out of 8. Impression dictated by: Alexei Ibrahim Jr., D.O.04/22/2024 11:05 PM Dictation Location: [place] [address] Electronically authenticated by: [id number] Y Date: 04/22/2024 23:05 Dictated By: Alexei Ibrahim M.D. Signed By: 04/22/242307 DD/ 04 TD/TT: Lathmaker: [facility] Radiology, Radiologist, MD - 04/22/2024 The [place] [id number] Ultrasound Report Signed Patient: TIKI MOELLER MR#: [id number] : 1985 Acct:[id number] Age/Sex: 38 / F ADM Date: 04/22/24 Loc: US Attending Dr: Veda Sarmiento Ordering Physician: Veda Sarmiento Date of Service: 04/22/24 Procedure(s): US OB BPP w non-stress Accession Number(s): [id number] cc: Veda Sarmiento; YSABEL CABRAL [address] [address] Patient Name: TIKI MOELLER MRN: [facility]:[id number] date: 1985 Sex: F Assigned Patient Location: [facility] Current Patient Location: Accession/Order Number: [id number] Exam Date: 04/22/2024 23:02 Report Date: 04/22/2024 23:05 At the request of: VEDA SARMIENTO Procedure: US OB BPP w non-stress Biophysical profile. Reason for exam: Advanced maternal age. COMPARISON: BPP 04/15/2024. TECHNIQUE: Transabdominal imaging of the gravid uterus was obtained. FINDINGS: Mobile Marketing Manager reports the biophysical profile is 8 out of 8. JT is normal at 13.9 cm. heart rate 156 bpm. US/US OB BPP w non-stress IMPRESSION: BPP 8 out of 8. Impression dictated by: Alexei Ibrahim Jr., D.O.04/22/2024 11:05 PM Dictation Location: [place] [address] Electronically authenticated by: [id number] Y Date: 04/22/2024 23:05 Dictated By: Alexei Ibrahim M.D. Signed By: 04/22/242307 DD/ 04 TD/TT: Lathmaker: [facility] Radiology Study observation (narrative) [facility] US OB BPP W NON-STRESS Ordered By: Radiologist Radiology on 04-22-2024 [facility] Work Phone: US OB BPP W NON-STRESS on 04-15-2024 [place] [address] Ultrasound Report Signed Patient: TIKI MOELLER MR#: [id number] : 1985 Acct:[id number] Age/Sex: 38 / F ADM Date: 04/15/24 Loc: [place] [address]- Attending Dr: Raghavendra Vasquez D.O. Ordering Physician: Raghavendra Vasquez D.O. Date of Service: 04/15/24 Procedure(s): US OB BPP w non-stress Accession Number(s): [id number] cc: YSABEL CABRAL ; Raghavendra Vasquez D.O. The [place] [id number] Patient Name: TIKI MOELLER MRN: [id number] date: 1985 Sex: F Assigned Patient Location: [facility] Current Patient Location: [facility] Accession/Order Number: [id number] Exam Date: 04/15/2024 16:26 Report Date: 04/15/2024 [...] Shelli Mcghee M.D.04/15/2024 4:31 PM Dictation Location: [place] [address] Electronically authenticated by: [id number] Y Date: 04/15/2024 16:31 Dictated By: Shelli Mcghee M.D. Signed By: 04/15/24 1633 DD/ 1631 TD/TT: Lathmaker: [facility] Radiology, Radiologist, - 04/15/2024 [place] [address] Ultrasound Report Signed Patient: TIKI MOELLER MR#: [id number] : 1985 Acct:[id number] Age/Sex: 38 / F ADM Date: 04/15/24 Loc: [facility] 250-[address]: Raghavendra Vasquez D.O. Ordering Physician: Raghavendra Vasquez D.O. Date of Service: 04/15/24 Procedure(s): US OB BPP w non-stress Accession Number(s): [id number] cc: YSABEL CABRAL ; Raghavendra Vasquez D.O. The [place] [id number] Patient Name: TIKI MOELLER MRN: [facility]:[id number] date: 1985 Sex: F Assigned Patient Location: [facility] Current Patient Location: [facility] Accession/Order Number: [id number] Exam Date: 04/15/2024 16:26 Report Date: 04/15/2024 16:31 At the request of: RAGHAVENDRA VASQUEZ DO Procedure: US OB BPP w non-stress BIOPHYSICAL PROFILE: CLINICAL INFORMATION: Multigravida of advanced maternal age TECHNIQUE: Multiple ultrasonographic scans of the lower abdomen and pelvis were obtained. The fetus is in the cephalic presentation. The measurements are consistent with a 33 week 3 day gestation. The heart rate [id number] beats per minute. FINDINGS: TONE: 1 or [...] Shelli Mcghee M.D.04/15/2024 4:31 PM Dictation Location: [place] [address] Electronically authenticated by: [id number] Y Date: 04/15/2024 16:31 Dictated By: Shelli Mcghee M.D. Signed By: 04/15/24 163 DD/ 163 TD/TT: Lathmaker: [facility] Radiology Study observation (narrative) [facility] US OB BPP W NON-STRESS Ordered By: Radiologist Radiology on 04-15-2024 [facility] Work Phone: US OB GROWTHon 04-15-2024 [place] [address] Ultrasound Report Signed Patient: TIKI MOELLER MR#: [id number] : 1985 Acct:[id number] Age/Sex: 38 / F ADM Date: 04/15/24 Loc: [facility] 250-[address]: Raghavendra Vasquez D.O. Ordering Physician: Raghavendra Vasquez D.O. Date of Service: 04/15/24 Procedure(s): US OB growth Accession Number(s): [id number] cc: YSABEL CABRAL ; Raghavendra Vasquez D.O. [place] [address] Patient Name: TIKI MOELLER MRN: [id number] date: 1985 Sex: F Assigned Patient Location: [facility] Current Patient Location: [facility] Accession/Order Number: [id number] Exam Date: 04/15/2024 16:31 Report Date: 04/15/2024 [...] Shelli Mcghee M.D.04/15/2024 4:37 PM Dictation Location: [place] [address] Electronically authenticated by: [id number] Y Date: 04/15/2024 16:37 Dictated By: Shelli Mcghee M.D. Signed By: 04/15/24 1640 DD/ 1637 TD/TT: Lathmaker: [facility] Radiology, Radiologist, - 04/15/2024 [place] [address] Ultrasound Report Signed Patient: TIKI MOELLER MR#: [id number] : 1985 Acct:[id number] Age/Sex: 38 / F ADM Date: 04/15/24 Loc: [facility] 250-[address]: Raghavendra Vasquez D.O. Ordering Physician: Raghavendra Vasquez D.O. Date of Service: 04/15/24 Procedure(s): US OB growth Accession Number(s): [id number] cc: YSABEL CABRAL ; Raghavendra Vasquez D.O. [place] [address] Patient Name: TIKI MOELLER MRN: [facility]:[id number] date: 1985 Sex: F Assigned Patient Location: [facility] Current Patient Location: [facility] Accession/Order Number: [id number] Exam Date: 04/15/2024 16:31 Report Date: 04/15/2024 [...] Shelli Mcghee M.D.04/15/2024 4:37 PM Dictation Location: [place] [address] Electronically authenticated by: [id number] Y Date: 04/15/2024 16:37 Dictated By: Shelli Mcghee M.D. Signed By: 04/15/24 1640 DD/ 1637 TD/TT: Lathmaker: [facility] Radiology Study observation (narrative) [facility] US OB GROWTHOrdered By: Liang ologist Radiology on 04-15-2024 [facility] Work Phone: Urinalysis macro (dipstick) [...] UA Trace Negative - 2000(20) ++++ mg/dL [facility] Spec Grav, UA 1.025 1 - 1.03 [facility] Urobilinogen, UA 1.0 0.2 - 12 mg/dL [facility] US OB GROWTHon 03-25-2024 [place] [address] Ultrasound Report Signed Patient: TIKI MOELLER MR#: [id number] : 1985 Acct:[id number] Age/Sex: 38 / F ADM Date: 03/25/24 Loc: US Attending Dr: Raghavendra Vasquez D.O. Ordering Physician: Raghavendra Vasquez D.O. Date of Service: 03/25/24 Procedure(s): US OB growth Accession Number(s): [id number] cc: YSABEL CABRAL ; Raghavendra Vasquez D.O. The [place] [address] Patient Name: TIKI MOELLER MRN: [facility]:[id number] date: 1985 Sex: F Assigned Patient Location: US Current Patient Location: US Accession/Order Number: [id number] Exam Date: 03/25/2024 11:02 Report Date: 03/25/2024 [...] Signed By: 03/25/24 1150 DD/ 1147 TD/TT: Lathmaker: [facility] Radiology, Radiologist, - 03/25/2024 [place] [address] Ultrasound Report Signed Patient: TIKI MOELLER MR#: [id number] : 1985 Acct:[id number] Age/Sex: 38 / F ADM Date: 03/25/24 Loc: US Attending Dr: Raghavendra Vasquez D.O. Ordering Physician: Raghavendra Vasquez D.O. Date of Service: 03/25/24 Procedure(s): US OB growth Accession Number(s): [id number] cc: YSABEL CABRAL ; Raghavendra Vasquez D.O. [place] [address] Patient Name: TIKI MOELLER MRN: [facility]:[id number] date: 1985 Sex: F Assigned Patient Location: US Current Patient Location: [place] Accession/Order Number: [id number] Exam Date: 03/25/2024 11:02 Report Date: 03/25/2024 [...] Signed By: 03/25/24 1150 DD/ 1147 TD/TT: Lathmaker: [facility] Radiology Study observation (narrative) [facility] US OB GROWTHOrdered By: Liang ologist Radiology on 03-25-2024 [facility] Work Phone: Urinalysis macro (dipstick) panel (U)on 03-25-2024 Bilirubin, UA Positive Negative - 4(70) +++ mg/dL [facility] [...] Doe/mcL [facility] Nitrite, UA Positive Negative - Positive [facility] pH, UA 6.5 5 - 9 [facility] Protein, UA Positive Negative - 1999(20) ++++ mg/dL [facility] Spec Grav, UA 1.025 1 - 1.03 [facility] Urobilinogen, UA 1.0 0.2 - 12 mg/dL [facility] Urinalysis macro (dipstick) panel (U)on 03-11-2024 Bilirubin, [...] UA Positive Negative - 1999(20) ++++ mg/dL [facility] Comment on above: 30 Spec Grav, UA 1.025 1 - 1.03 [facility] Urobilinogen, UA 0.2 0.2 - 12 mg/dL [facility] ALL CBC WITH AUTO DIFFon BASOPHILS ABSOLUTE [...] vol] 10.7 fL 9.5 - 13.5 fL [facility] EO # 0.1 [facility] PLT [address] [facility] RBC 3.97 Low [facility] WBC 9.4 [facility] UA (CLEAN/CATCH) HOUSEKEEPING DEPARTMENT WORKER/LA RO IF IND.on 03-07-2024 BILIRUBIN URINE Negative [...] - 1.0 EU/dL [facility] [place] [...] 0.2 0.2 - 12 mg/dL [facility] IGP,APTIMA HPV,AGE GDLNon AGE GDLN ACOG TESTING Note . [facility] Comment on above: TESTS RESULT FLAG UN ITS REF RANGE LAB Clinician Provided Cytology Information Source.............Cervix Other.............. No. of containers..01 ThinPrep Vial Age Algo ACOG Beverly... FLAG LEGEND: L-Low Normal,H-High Normal,LL-Alert Low,HH-Alert High <-Panic Low,>-Panic High,A-Abnormal,AA-Critical Abnormal Performed at: 01 =[address] [address] Judith Ventura MD, HPV APTIMA Negative Negative [facility] Comment on above: This nucleic acid am plification test detects fourteen high- risk HPV types (16,18,31,33,35,39,45,51,52,56,58,59,66,68) without differentiation. Performed at: =[address] [id number] Housekeeper/Laundry Assistant: Judith Ventura MD, Phone: [phone] Performed at: [address] [id number] Housekeeper/Laundry Assistant: Judith Ventura MD, Phone: [phone] IGP, APTIMA HPV, RFX 16/18,45 Note . [facility] Comment on above: TESTS RESULT FLAG UN ITS REF RANGE LAB DIAGNOSIS: 02 NEGATIVE FOR INTRAEPITHELIAL LESION OR MALIGNANCY. Specimen adequacy: 02 Satisfactory for evaluation. Endocervical and/or squamous metaplastic cells (endocervical component) are present. Performed by: Kae Frank, Coordinate Measuring Machine Operator (ASCP) . 02 Note: Note 02 [...] <-Panic Low,>-Panic High,A-Abnormal,AA-Critical Abnormal Performed at: [address] [address] Judith Ventura MD, SPATULA-ALONE CERVIX [facility] RECURRENT VAGINITIS (HTRX)on 01-11-2024 ATOPOBIUM VAGINAE 0 [facility] Healthcare ATOPOBIUM VAGINAE Not detected [facility] BVAB 2,3 (BACTERIAL VAGINOSIS ASSOCIATED BACTERIA 2, 3); MOBILUNCUS SPP 0 [facility] BVAB 2,3 (BACTERIAL VAGINOSIS ASSOCIATED BACTERIA 2, 3); MOBILUNCUS SPP Not detected [facility] LOC ALBICANS, PARAPSILOSIS, TROPICALIS 0 [facility] Healthcare LOC ALBICANS, PARAPSILOSIS, TROPICALIS Not detected [facility] Healthcare LOC GLABRATA 0 [facility] Healthcare LOC GLABRATA Not detected [facility] LOC KRUSEI 0 [facility] Healthcare LOC KRUSEI Not detected [facility] CHLAMYDIA TRACHOMATIS 0 [facility] CHLAMYDIA TRACHOMATIS Not detected [facility] GARDNERELLA VAGINALIS 0 [facility] Healthcare GARDNERELLA VAGINALIS Not detected [facility] MEGASPHAERA (TYPES 1, 2) 0 [facility] MEGASPHAERA (TYPES 1, 2) Not detected [facility] MYCOPLASMA GENITALIUM 0 [facility] MYCOPLASMA GENITALIUM Not detected [facility] NEISSERIA GONORRHOEAE 0 [facility] NEISSERIA GONORRHOEAE Not detected [facility] TRICHOMONAS VAGINALIS 0 [facility] TRICHOMONAS VAGINALIS Not detected [facility] Urinalysis macro (dipstick) panel (U)on 01-10-2024 Bilirubin, [...] 1.0 0.2 - 12 mg/dL [facility] ALL CBC WITH AUTO DIFFon BASOPHILS ABSOLUTE [...] EO # 0.2 [facility] TB PLT [address] [facility] RBC 4.40 [facility] WBC 9.4 [facility] [...] 1.0 0.2 - 12 mg/dL [facility] URINE CULTURE, ROUTINEon Bacteria identified Cx Nom [...] Bacteria identified Cx Nom (U) Performed at: [facility] Bacteria identified Cx Nom (U) [address] [place], [place] [id number] [facility] Bacteria identified Cx Nom (U) Housekeeper/Laundry Assistant: Michael Berry PhD, Phone: [phone] [facility] HCG ( test) Ql (U)o n 11-01-2023 Interpretation and review of laboratory results Abnormal [facility] Preg Test, Ur Positive [facility] Urinalysis macro (dipstick) panel (U)on 11-01-2023 Bilirubin, [...] 0.2 0.2 - 12 mg/dL [facility] XR CERVICAL SPINE AP/LAT/FLE X/EXT/OBLIQUESon 08-16-2023 XR [...] [Mass/Vol] 8.9 mg/dL Normal (8.6 - 10.6) [facility] Comment on above: Performed By: #### C BC/2A, ESRCRP, CCP, HBC-M, HBSAG, HCV, CA, MG, RHF, URCA #### [facility] [address] [facility], [id number] CBC, ALB, ALT, AST, ALK AND CREAon 12-18-2022 Albumin [Mass/Vol] 5.0 g/dL Normal (3.5 - 5.0) [facility] Comment on above: Order Comment: FACIL ITY: [facility] [id number] Performed By: #### C BC/2A, ESRCRP, CCP, HBC-M, HBSAG, HCV, CA, MG, RHF, URCA #### [facility] [address] [facility], [id number] ALK PHOS 60 U/L Normal (38 - 126) [facility] Comment on above: Order Comment: FACIL ITY: [facility] [id number] Performed By: #### C BC/2A, ESRCRP, CCP, HBC-M, HBSAG, HCV, CA, MG, RHF, URCA #### [facility] [address] [facility], [id number] ALT [Catalytic activity/Vol] 34 U/L Normal (1 - 35) [facility] Comment on above: Order Comment: FACIL ITY: [facility] [id number] Performed By: #### C BC/2A, ESRCRP, CCP, HBC-M, HBSAG, HCV, CA, MG, RHF, URCA #### [facility] [address] [facility], [address] AST [Catalytic activity/Vol] 34 U/L Normal (15 - 46) [facility] Comment on above: Order Comment: FACIL ITY: [facility] [id number] Performed By: #### C BC/2A, ESRCRP, CCP, HBC-M, HBSAG, HCV, CA, MG, RHF, URCA #### [facility] [address] [facility], [address] Creatinine [Mass/Vol] 0.61 mg/dL Normal (0.52 - 1.04) [facility] Comment on above: Order Comment: FACIL ITY: [facility] [id number] Performed By: #### C BC/2A, ESRCRP, CCP, HBC-M, HBSAG, HCV, CA, MG, RHF, URCA #### [facility] [address] [facility], [id number] GFR- AMER 135.1 ML/M1.7 Normal (60.0 - 140.1) [facility] Comment on above: Order Comment: FACIL ITY: [facility] [id number] Performed By: #### C BC/2A, ESRCRP, CCP, HBC-M, HBSAG, HCV, CA, MG, RHF, URCA #### [facility] [address] [facility], [id number] GFR-NON AFRIC-AMER 111.6 ML/M1.7 Normal (60.0 - 115.8) [facility] Comment on above: Order Comment: FACIL ITY: [facility] [id number] Performed By: #### C BC/2A, ESRCRP, CCP, HBC-M, HBSAG, HCV, CA, MG, RHF, URCA #### [facility] [address] [facility], [address] Hematocrit (Bld) [Volume fraction] 41.5 % Normal (37.0 - 47.0) [facility] Comment on above: Order Comment: FACIL ITY: [facility] [id number] Performed By: #### C BC/2A, ESRCRP, CCP, HBC-M, HBSAG, HCV, CA, MG, RHF, URCA #### [facility] [address] [facility], [id number] Hemoglobin (Bld) [Mass/Vol] 13.5 g/dL Normal (12.0 - 16.0) [facility] Comment on above: Order Comment: FACIL ITY: [facility] [id number] Performed By: #### C BC/2A, ESRCRP, CCP, HBC-M, HBSAG, HCV, CA, MG, RHF, URCA #### [facility] [address] [facility], [address] MCH (RBC) [Entitic mass] 28.7 pg Normal (27.0 - 33.0) [facility] Comment on above: Order Comment: FACIL ITY: [facility] [id number] Performed By: #### C BC/2A, ESRCRP, CCP, HBC-M, HBSAG, HCV, CA, MG, RHF, URCA #### [facility] [address] [facility], [address] MCHC (RBC) [Mass/Vol] 32.5 g/dL Normal (30.0 - 37.0) [facility] Comment on above: Order Comment: FACIL ITY: [facility] [id number] Performed By: #### C BC/2A, ESRCRP, CCP, HBC-M, HBSAG, HCV, CA, MG, RHF, URCA #### [facility] [address] [facility], [address] MCV (RBC) [Entitic vol] 88.1 fL Normal (81.0 - 99.0) [facility] Comment on above: Order Comment: FACIL ITY: [facility] [id number] Performed By: #### C BC/2A, ESRCRP, CCP, HBC-M, HBSAG, HCV, CA, MG, RHF, URCA #### [facility] [address] [facility], [address] PLT 282 x10^3ul Normal (130 - 400) [facility] Comment on above: Order Comment: FACIL ITY: [facility] [id number] Performed By: #### C BC/2A, ESRCRP, CCP, HBC-M, HBSAG, HCV, CA, MG, RHF, URCA #### [facility] [address] [facility], [address] RBC 4.71 x10^6ul Normal (4.20 - 5.40) [facility] Comment on above: Order Comment: FACIL ITY: [facility] [id number] Performed By: #### C BC/2A, ESRCRP, CCP, HBC-M, HBSAG, HCV, CA, MG, RHF, URCA #### [facility] [address] [facility], [address] WBC 6.47 x10^3ul Normal (3.80 - 10.60) [facility] Comment on above: Order Comment: FACIL ITY: [facility] [id number] Performed By: #### C BC/2A, ESRCRP, CCP, HBC-M, HBSAG, HCV, CA, MG, RHF, URCA #### [facility] [address] [facility], [address] HEP B CORE AB, IGMon 023 HEPATITIS B CORE ANTIBODY, IGM Negative Normal (NEG - NEG) [facility] Comment on above: Performed By: #### C BC/2A, ESRCRP, CCP, HBC-M, HBSAG, HCV, CA, MG, RHF, URCA #### [facility] [address] [facility], [address] HEP B HERACLIO AGon 12-18-2022 HEP B HERACLIO AG Negative Normal (NEG - NEG) [facility] Comment on above: Performed By: #### C BC/2A, ESRCRP, CCP, HBC-M, HBSAG, HCV, CA, MG, RHF, URCA #### [facility] [address] [facility], [address] HEP C ANTIBODYon 12-18-2022 HEPATITIS C ANTIBODY Negative Normal (NEG - NEG) [facility] Comment on above: Performed By: #### C BC/2A, ESRCRP, CCP, HBC-M, HBSAG, HCV, CA, MG, RHF, URCA #### [facility] [address] [facility], [address] MAGNESIUMon 12-18-2022 Magnesium [Mass/Vol] 2.0 mg/dL Normal (1.6 - 2.3) [facility] Comment on above: Performed By: #### C BC/2A, ESRCRP, CCP, HBC-M, HBSAG, HCV, CA, MG, RHF, URCA #### [facility] [address] [facility], [address] RF FACTORon 12-18-2022 RF FACTOR <9 Normal (0 - 12) [facility] Comment on above: Result Comment: RF F ACTOR = LESS THAN 9 IU/ML RF FACTOR MIN. DETECTION = 9 IU/ML. Performed By: #### C BC/2A, ESRCRP, CCP, HBC-M, HBSAG, HCV, CA, MG, RHF, URCA #### [facility] [address] [facility], [address] SED RATE - CRPon 12-18-2022 CRP EXTENDED RANGE 1.40 MG/L Normal (0.00 - 3.20) [facility] Comment on above: Performed By: #### C BC/2A, ESRCRP, CCP, HBC-M, HBSAG, HCV, CA, MG, RHF, URCA #### [facility] [address] [facility], [address] SED RATE WEST. 5 MM/HR Normal (0 - 25) [facility] Comment on above: Performed By: #### C BC/2A, ESRCRP, CCP, HBC-M, HBSAG, HCV, CA, MG, RHF, URCA #### [facility] [address] [facility], [address] URIC ACIDon 12-18-2022 Urate [Mass/Vol] 4.2 mg/dL Normal (2.5 - 6.2) [facility] Comment on above: Performed By: #### C BC/2A, ESRCRP, CCP, HBC-M, HBSAG, HCV, CA, MG, RHF, URCA #### [facility] [address] [facility], [address] PAP ACOG PANEL 2: 30 to 65on 11-16-2021 . . Normal [facility] Comment on above: Result Comment: Perf ormed at: WB Performed By: #### [id number] #### [facility] [address] [address] [address] Sierra Almonte Age Gdln ACOG Testing 30-65 Normal [facility] Comment on above: Performed By: #### [id number] #### [facility] [address] [place] [address] Dr. Sierra Almonte DIAGNOSIS: Comment Normal [facility] Comment on above: Result Comment: NEGA TIVE FOR INTRAEPITHELIAL LESION OR MALIGNANCY. Performed at: WB Performed By: #### [id number] #### [facility] [address] [address] [address] Sierra Almonte HPV Aptima Negative Normal Negative [facility] Comment on above: Result Comment: This nucleic acid amplification test detects fourteen high-risk HPV types (16,18,31,33,35,39,45,51,52,56,58,59,66,68) without differentiation. Performed at: =G Performed By: #### [id number] #### [facility] [address] [place] [address] Dr. Sierra Almonte Methodology: Comment Normal [facility] Comment on above: Result Comment: This liquid based ThinPrep(R) pap test was screened with the use of an image guided system. Performed at: WB Performed By: #### [id number] #### [facility] [address] [place] [address] Dr. Sierra Almonte Note: Comment Normal [facility] Comment on above: Result Comment: The Pap smear is a screening test designed to aid in the detection of premalignant and malignant conditions of the uterine cervix. It is not a diagnostic procedure and should not be used as the sole means of detecting cervical cancer. Both false-positive and false-negative reports do occur. . Performed at: WB Performed By: #### [id number] #### [facility] [address] [place] [address] Dr. Sierra Almonte Performed by: Comment Normal [facility] Comment on above: Result Comment: Alison Nava, Coordinate Measuring Machine Operator (ASCP) Performed at: WB Performed By: #### [id number] #### [facility] [address] [place], [place] [address] Dr. Sierra Almonte Specimen adequacy: Comment Normal [facility] Comment on above: Result Comment: Sati sfactory for evaluation. Endocervical and/or squamous metaplastic cells (endocervical component) are present. Performed at: WB Performed By: #### [id number] #### [facility] [address] [address] [address] Sierra Almonte Thyroidon 07-14-2021 US Thyroid [...] by Alexei Smith on 07/14/2021 1000 Normal [facility] Complete Blood Count with Au to Diffon 07-12-2021 Basophils (Bld) [#/Vol] 0.02 10*3/uL Normal 0.00-0.20 [facility] Comment on above: Performed By: #### C BCAD, RF, VITD, ESR, TSH reflex FT4, CMP, FT4 #### [facility] [address] [place], [place] [id number] Basophils/100 WBC (Bld) 0.3 % Normal [facility] Comment on above: Performed By: #### C BCAD, RF, VITD, ESR, TSH reflex FT4, CMP, FT4 #### [facility] [address] [place], [place] [id number] Eosinophils (Bld) [#/Vol] 0.08 10*3/uL Normal 0.02-0.50 [facility] Comment on above: Performed By: #### C BCAD, RF, VITD, ESR, TSH reflex FT4, CMP, FT4 #### [facility] [address] [place], [place] [id number] Eosinophils/100 WBC (Bld) 1.2 % Normal [facility] Comment on above: Performed By: #### C BCAD, RF, VITD, ESR, TSH reflex FT4, CMP, FT4 #### [facility] [address] [place], [place] [id number] Erythrocyte distribution width (RBC) [Ratio] 13.8 % Normal 11.0-15.0 [facility] Comment on above: Performed By: #### C BCAD, RF, VITD, ESR, TSH reflex FT4, CMP, FT4 #### [facility] [address] [place], [place] [id number] Hematocrit (Bld) [Volume fraction] 39.6 % Normal 35.0-47.0 [facility] Comment on above: Performed By: #### C BCAD, RF, VITD, ESR, TSH reflex FT4, CMP, FT4 #### [facility] [address] [place], [place] [id number] Hemoglobin (Bld) [Mass/Vol] 12.9 g/dL Normal 11.6-15.5 [facility] Comment on above: Performed By: #### C BCAD, RF, VITD, ESR, TSH reflex FT4, CMP, FT4 #### [facility] [address] [place], [place] [id number] Lymphocytes (Bld) [#/Vol] 1.3 10*3/uL Normal 0.9-3.9 [facility] Comment on above: Performed By: #### C BCAD, RF, VITD, ESR, TSH reflex FT4, CMP, FT4 #### [facility] [address] [place], [place] [id number] Lymphocytes/100 WBC (Bld) 20.3 % Normal [facility] Comment on above: Performed By: #### C BCAD, RF, VITD, ESR, TSH reflex FT4, CMP, FT4 #### [facility] [address] [place], [place] [id number] MCH (RBC) [Entitic mass] 28.3 pg Normal 27.0-33.0 [facility] Comment on above: Performed By: #### C BCAD, RF, VITD, ESR, TSH reflex FT4, CMP, FT4 #### [facility] [address] [place], [place] [id number] MCHC (RBC) [Mass/Vol] 32.6 g/dL Normal 32.0-36.0 [facility] Comment on above: Performed By: #### C BCAD, RF, VITD, ESR, TSH reflex FT4, CMP, FT4 #### [facility] [address] [place], [place] [id number] MCV (RBC) [Entitic vol] 87 fL Normal 80-100 [facility] Comment on above: Performed By: #### C BCAD, RF, VITD, ESR, TSH reflex FT4, CMP, FT4 #### [facility] [address] [place], [place] [id number] Monocytes (Bld) [#/Vol] 0.4 10*3/uL Normal 0.2-0.9 [facility] Comment on above: Performed By: #### C BCAD, RF, VITD, ESR, TSH reflex FT4, CMP, FT4 #### [facility] [address] [place], [place] [id number] Monocytes/100 WBC (Bld) 5.8 % Normal [facility] Comment on above: Performed By: #### C BCAD, RF, VITD, ESR, TSH reflex FT4, CMP, FT4 #### [facility] [address] [place], [place] [id number] Neutrophils (Bld) [#/Vol] 4.7 10*3/uL Normal 1.5-7.8 [facility] Comment on above: Performed By: #### C BCAD, RF, VITD, ESR, TSH reflex FT4, CMP, FT4 #### [facility] [address] [place], [place] [id number] Neutrophils/100 WBC (Bld) 72.1 % Normal [facility] Comment on above: Performed By: #### C BCAD, RF, VITD, ESR, TSH reflex FT4, CMP, FT4 #### [facility] [address] [place], [place] [id number] Platelet mean volume (Bld) [Entitic vol] 11.00 fL Normal 7.50-12.50 [facility] Comment on above: Performed By: #### C BCAD, RF, VITD, ESR, TSH reflex FT4, CMP, FT4 #### [facility] [address] [place], [place] [id number] Platelets (Bld) [#/Vol] 271 10*3/uL Normal 140-400 [facility] Comment on above: Performed By: #### C BCAD, RF, VITD, ESR, TSH reflex FT4, CMP, FT4 #### [facility] [address] [place], [place] [id number] RBC (Bld) [#/Vol] 4.56 10*6/uL Normal 3.90-5.20 [facility] Comment on above: Performed By: #### C BCAD, RF, VITD, ESR, TSH reflex FT4, CMP, FT4 #### [facility] [address] [place], [place] [id number] RDW-SD 43.5 fL Normal 37.0-50.0 [facility] Comment on above: Performed By: #### C BCAD, RF, VITD, ESR, TSH reflex FT4, CMP, FT4 #### [facility] [address] [place], [place] [id number] WBC (Bld) [#/Vol] 6.5 10*3/uL Normal 3.8-11.0 Levar cueva [place] [facility] Comment on above: Performed By: #### C BCAD, RF, VITD, ESR, TSH reflex FT4, CMP, FT4 #### [facility] [address] [place], [place] [id number] Comprehensive Metabolic Pane [facility] 07-12-2021 Albumin [Mass/Vol] 4.9 g/dL Normal 3.6-5.1 Levar rn [place] [facility] Comment on above: Performed By: #### C BCAD, RF, VITD, ESR, TSH reflex FT4, CMP, FT4 #### [facility] [address] [place], [place] [id number] Albumin/Globulin [Mass ratio] 2.2 {ratio} Normal 1.0-2.5 [facility] Comment on above: Performed By: #### C BCAD, RF, VITD, ESR, TSH reflex FT4, CMP, FT4 #### [facility] [address] [place], [place] [id number] ALP [Catalytic activity/Vol] 63 U/L Normal 35-119 [facility] Comment on above: Performed By: #### C BCAD, RF, VITD, ESR, TSH reflex FT4, CMP, FT4 #### [facility] [address] [place], [place] [id number] ALT [Catalytic activity/Vol] 26 U/L Normal 6-33 [facility] Comment on above: Result Comment: 01/26 Female reference range changed. Performed By: #### C BCAD, RF, VITD, ESR, TSH reflex FT4, CMP, FT4 #### [facility] [address] [place], [place] [id number] Anion gap [Moles/Vol] 18 mmol/L Normal 12-20 [facility] Comment on above: Result Comment: Effe ctive 03/03/2019 reference range changed. Performed By: #### C BCAD, RF, VITD, ESR, TSH reflex FT4, CMP, FT4 #### [facility] [address] [place], [place] [id number] AST [Catalytic activity/Vol] 26 U/L Normal 9-34 [facility] Comment on above: Performed By: #### C BCAD, RF, VITD, ESR, TSH reflex FT4, CMP, FT4 #### [facility] [address] [place], [place] [id number] BUN/CREA 10 Ratio Normal 6-22 [facility] Comment on above: Performed By: #### C BCAD, RF, VITD, ESR, TSH reflex FT4, CMP, FT4 #### [facility] [address] [place], [place] [id number] Calcium [Mass/Vol] 10.0 mg/dL Normal 8.6-10.2 [facility] Comment on above: Performed By: #### C BCAD, RF, VITD, ESR, TSH reflex FT4, CMP, FT4 #### [facility] [address] [place], [place] [id number] Chloride [Moles/Vol] 105 mmol/L Normal 98-107 [facility] Comment on above: Performed By: #### C BCAD, RF, VITD, ESR, TSH reflex FT4, CMP, FT4 #### [facility] [address] [place], [place] [id number] CO2 [Moles/Vol] 21 mmol/L Normal 20-31 [facility] Comment on above: Performed By: #### C BCAD, RF, VITD, ESR, TSH reflex FT4, CMP, FT4 #### [facility] [address] [place], [place] [id number] Creatinine [Mass/Vol] 0.6 mg/dL Normal 0.6-1.4 [facility] Comment on above: Performed By: #### C BCAD, RF, VITD, ESR, TSH reflex FT4, CMP, FT4 #### [facility] [address] [place], [place] [id number] eGFRAA 132 mL/min/1.73m2 Normal >60 [facility] Comment on above: Performed By: #### C BCAD, RF, VITD, ESR, TSH reflex FT4, CMP, FT4 #### [facility] [address] [place], [place] [id number] eGFRNAA 109 mL/min/1.73m2 Normal >60 Danielle francis [place] [facility] Comment on above: Performed By: #### C BCAD, RF, VITD, ESR, TSH reflex FT4, CMP, FT4 #### [facility] [address] [place], [place] [id number] Globulin (S) [Mass/Vol] 2.2 g/dL Normal 1.9-3.7 [facility] Comment on above: Performed By: #### C BCAD, RF, VITD, ESR, TSH reflex FT4, CMP, FT4 #### [facility] [address] [place], [place] [id number] Glucose [Mass/Vol] 86 mg/dL Normal 65-99 Levar cueva [place] [facility] Comment on above: Result Comment: For FASTING Glucose --- ADA reference ranges: Normal 65-99 mg/dl Prediabetes 100-125 Diabetes >/= 126 Performed By: #### C BCAD, RF, VITD, ESR, TSH reflex FT4, CMP, FT4 #### [facility] [address] [place], [place] [id number] Potassium [Moles/Vol] 4.1 mmol/L Normal 3.5-5.5 [facility] Comment on above: Performed By: #### C BCAD, RF, VITD, ESR, TSH reflex FT4, CMP, FT4 #### [facility] [address] [place], [place] [id number] Protein [Mass/Vol] 7.1 g/dL Normal 6.1-8.1 Levar cueva [place] [facility] Comment on above: Performed By: #### C BCAD, RF, VITD, ESR, TSH reflex FT4, CMP, FT4 #### [facility] [address] [place], [place] [id number] Sodium [Moles/Vol] 140 mmol/L Normal 135-146 Levar cueva [place] [facility] Comment on above: Performed By: #### C BCAD, RF, VITD, ESR, TSH reflex FT4, CMP, FT4 #### [facility] [address] [place], [place] [id number] TBIL <0.3 Normal [facility] Comment on above: Performed By: #### C BCAD, RF, VITD, ESR, TSH reflex FT4, CMP, FT4 #### [facility] [address] [place], [place] [id number] Urea nitrogen [Mass/Vol] 7 mg/dL Normal 7-25 [facility] Comment on above: Performed By: #### C BCAD, RF, VITD, ESR, TSH reflex FT4, CMP, FT4 #### [facility] [address] [place], [place] [id number] Free T4on 07-12-2021 Free T4 [Mass/Vol] 0.93 ng/dL Normal 0.80-1.80 [facility] Comment on above: Performed By: #### C BCAD, RF, VITD, ESR, TSH reflex FT4, CMP, FT4 #### [facility] [address] [place], [place] [id number] Q - PASQUALE SCREEN IFA W/RFL TIT ER AND PATTERNon 07-12-2021 PASQUALE SCREEN, IFA Negative Normal NEGATIVE [facility] Comment on above: Order Comment: [facility] performed at: QPT, [facility], [address] [place] [address], [address] [place] [address], [id number], Grocery Clerk Checking: Leonard Turpin MD [facility] Date/Time: [facility] [...] AC-0: Negative International Consensus on PASQUALE Patterns (https://doi.org/10.1515/jbvm-4619-3105) For additional information, please refer to http://education.Parenthoods.Golden[employer] Software/faq/KIR241 (This link is being provided for informational/ educational purposes only.) Performed By: #### 2 49 #### [facility] [address] [place] [address] RBC Sedimentation Rateon ESR (Bld) [Velocity] 8.00 mm/h Normal 0.00-20.00 [facility] Comment on above: Performed By: #### C BCAD, RF, VITD, ESR, TSH reflex FT4, CMP, FT4 #### [facility] [address] [place], [place] [id number] Rheumatoid Factoron 07-13-19 RF <10 Normal [facility] Comment on above: Performed By: #### C BCAD, RF, VITD, ESR, TSH reflex FT4, CMP, FT4 #### [facility] [address] [place], [place] [id number] TSH w/ Reflex to Free T4on 07-12-2021 TSH 0.321 uIU/mL Low 0.400-4.500 [facility] Comment on above: Performed By: #### C BCAD, RF, VITD, ESR, TSH reflex FT4, CMP, FT4 #### [facility] [address] [place], [place] [id number] Vitamin D 25-OHon 07-12-2021 VIT D 25 OH 19 ng/ml Low >29 [facility] Comment on above: Result Comment: Ade min D Status Deficiency <20 ng/mL Insufficiency 20-29 ng/mL Optimal 30-100 ng/mL Possible Toxicity >=150 ng/mL Performed By: #### C BCAD, RF, VITD, ESR, TSH reflex FT4, CMP, FT4 #### [facility] [address] [place], [place] [id number] Comprehensive Metabolic Empo n 04-11-2021 Albumin [Mass/Vol] 4.6 g/dL Normal 3.2-5.5 [facility] Comment on above: Performed By: #### E BS CMP, EBS LIPID #### [facility] [address] Albumin/Globulin [Mass ratio] 1.9 {ratio} Normal [facility] Comment on above: Performed By: #### E BS CMP, EBS LIPID #### [facility] [address] ALP [Catalytic activity/Vol] 43 U/L Normal 32-92 [facility] Comment on above: Performed By: #### E BS CMP, EBS LIPID #### [facility] [address] ALT [Catalytic activity/Vol] 17 U/L Normal 10-60 [facility] Comment on above: Performed By: #### E BS CMP, EBS LIPID #### [facility] [address] AST [Catalytic activity/Vol] 20 U/L Normal 10-42 [facility] Comment on above: Performed By: #### E BS CMP, EBS LIPID #### [address] Bilirubin [Mass/Vol] 1.1 mg/dL Normal 0.3-1.2 [facility] Comment on above: Performed By: #### E BS CMP, EBS LIPID #### [address] Calcium [Mass/Vol] 9.6 mg/dL Normal 8.2-10.2 [facility] Comment on above: Performed By: #### E BS CMP, EBS LIPID #### [address] Chloride [Moles/Vol] 102 mmol/L Normal 95-114 [facility] Comment on above: Performed By: #### E BS CMP, EBS LIPID #### [facility] [address] [place] [address] CO2 [Moles/Vol] 21.4 mmol/L Low 22.0-30.0 [facility] Comment on above: Performed By: #### E BS CMP, EBS LIPID #### [facility] [address] [place] [address] Creatinine [Mass/Vol] 0.71 mg/dL Normal 0.44-1.03 [facility] Comment on above: Performed By: #### E BS CMP, EBS LIPID #### [facility] [address] [place] [address] [place] Estimated GFR ( Michelle > 60 Normal [facility] Comment on above: Result Comment: GFR estimated reference range: According to KDOQI guidelines, <60 ml/min/1.73m2 is sufficient to diagnose a patient with chronic kidney disease. Performed By: #### E BS CMP, EBS LIPID #### [facility] [address] Estimated GFR (Non- Am > 60 Normal [facility] Comment on above: Performed By: #### E BS CMP, EBS LIPID #### [facility] [address] Globulin (S) [Mass/Vol] 2.4 g/dL Normal [facility] Comment on above: Performed By: #### E BS CMP, EBS LIPID #### [address] Glucose [Mass/Vol] 76 mg/dL Normal 70-100 [facility] Comment on above: Performed By: #### E BS CMP, EBS LIPID #### [facility] [address] [place] [address] Potassium [Moles/Vol] 3.3 mmol/L Low 3.5-5.1 [facility] Comment on above: Performed By: #### E BS CMP, EBS LIPID #### [facility] [address] [place] [address] Protein [Mass/Vol] 7.0 g/dL Normal 6.1-7.9 [facility] Comment on above: Performed By: #### E BS CMP, EBS LIPID #### [facility] [address] [place] [address] [place] Sodium [Moles/Vol] 136 mmol/L Normal 136-146 [facility] Comment on above: Performed By: #### E BS CMP, EBS LIPID #### [facility] [address] [place] [address] Urea nitrogen [Mass/Vol] 5 mg/dL Low 9-23 [facility] Comment on above: Performed By: #### E BS CMP, EBS LIPID #### [facility] [address] Lipid Profileon 04-11-2021 Cholesterol [Mass/Vol] 189 mg/dL Normal 140-200 [facility] Comment on above: Result Comment: Chol less than 200 mg/dl low risk Chol 201-239 mg/dl borderline risk Chol 240 mg/dl and greater high risk Performed By: #### E BS CMP, EBS LIPID #### [facility] [address] Cholesterol in HDL [Mass/Vol] 69 mg/dL Normal 35-85 [facility] Comment on above: Result Comment: HDL CHOL ATP-III CLASSIFICATION Cardiovascular Risk HDL > or equal to 60 mg/dL LOW HDL < 40 mg/dL HIGH Performed By: #### E BS CMP, EBS LIPID #### [address] Cholesterol.total/C holesterol in HDL [Mass ratio] 2.7 {ratio} Normal <5.0 [facility] Comment on above: Result Comment: PERF ORMED BY: [place] [address] PATHOLOGIST CLINIC PHYSICIAN DIRECTOR PAT PETERS M.D. Performed By: #### E BS CMP, EBS LIPID #### [address] LDL Cholesterol,Calcula shadi 107 mg/dL High 0-100 [facility] Comment on above: Result Comment: LDL ATP III CLASSIFICATION LDL less than 100 mg/dL Optimal LDL 100-129 mg/dL Near or above optimal LDL 130-159 mg/dL Borderline high LDL 160-189 mg/dL High LDL greater than 189 mg/dL Very high Performed By: #### E BS CMP, EBS LIPID #### [facility] [address] [place] [address] [place] Triglyceride w/Reflex 64 mg/dL Normal 35-149 [facility] Comment on above: Result Comment: TRIG ATP III CLASSIFICATION TRIG less than 150 mg/dL Normal TRIG 150-199 mg/dL Borderline high TRIG 200-500 mg/dL High TRIG greater than 500 mg/dL Very high Standard traceable to the Center for Disease Conrtrol and Prevention (CDC) test method. Performed By: #### E BS CMP, EBS LIPID #### [facility] [address] [id number] [place] VLDL CHOLESTEROL 12 mg/dL Normal [facility] Comment on above: Performed By: #### E BS CMP, EBS LIPID #### [facility] [address] [id number] [place] Covid-19 PCR (CVDTB)on SARS-CoV-2 (COVID-19) RNA ERIC+probe Ql (Unsp spec) Detected Critically abnormal NOT DETECTED [facility] Comment on above: Result Comment: This test is not yet approved or cleared by the [place] FDA. When there are no FDA-approved or cleared tests available, and other criteria are met, FDA can make tests available under an emergency access mechanism called an Emergency Use Authorization (EUA). The EUA for this test is supported by the [place] of Health and Human Service's (HHS's) declaration [...] used). Performed By: #### C VDTBH #### [facility] [address] [place] [address] Dr. Sierra Almonte CHLAMYDIA/GONOCOCCUS ERIC (SW AB/URINE/PAPon 12-14-2020 Chlamydia trachomatis, ERIC Negative Normal Negative [facility] Comment on above: Performed By: #### C T/NGNA #### [facility] [address] [place] [address] Dr. Sierra Almonte Neisseria gonorrhoeae, ERIC Negative Normal Negative [facility] Comment on above: Performed By: #### C T/NGNA #### [facility] [address] [place] [address] Dr. Sierra Almonte VAGINITIS/VAGINOSIS DNA PROB Andrew 12-11-2020 Loc species Negative Normal Negative [facility] Comment on above: Performed By: #### V AGINT #### [facility] [address] [address] [address] Sierra Almonte Gardnerella vaginalis Positive Abnormal Negative [facility] Comment on above: Performed By: #### V AGINT #### [facility] [address] [address] [address] Sierra Almonte Trichomonas vaginalis Negative Normal Negative [facility] Comment on above: Performed By: #### V AGINT #### [facility] [address] [address] [address] Sierra Almonte Vital Signs Date Time Vital Sign Value Performing Clinician Faci lity 04-29-2024 14:44-0500 Body mass index (BMI) [Ratio] 28.72 kg/m2 Raghavendra Christina DO Work Phone: [facility] 04-29-2024 14:44-0500 Body weight 73.54 kg Raghavendra Christina DO Work Phone: [facility] 04-29-2024 14:44-0500 Diastolic blood pressure 70 mm[Hg] Raghavendra Christina DO Work Phone: [facility] 04-29-2024 14:44-0500 Systolic blood pressure 98 mm[Hg] Raghavendra Christina DO Work Phone: [facility] 04-08-2024 11:58-0500 Body mass index (BMI) [Ratio] 28.48 kg/m2 Raghavendra Christina DO Work Phone: [facility] 04-08-2024 11:58-0500 Body weight 72.94 kg Raghavendra Christina DO Work Phone: [facility] 04-08-2024 11:58-0500 Diastolic blood pressure 74 mm[Hg] Raghavendra Christina DO Work Phone: [facility] 04-08-2024 11:58-0500 Systolic blood pressure 110 mm[Hg] Raghavendra Christina DO Work Phone: [facility] 04-02-2024 11:03-0500 Body mass index (BMI) [Ratio] 27.99 kg/m2 Teresa Jo Ann-Nossek SKILLED NURSING FACILITY COUNSELOR-HOUSEKEEPING DEPARTMENT WORKER Work Phone: [facility] 04-02-2024 11:03-0500 Body weight 71.67 kg Teresa Jo Ann-Nossek SKILLED NURSING FACILITY COUNSELOR-HOUSEKEEPING DEPARTMENT WORKER Work Phone: [facility] 04-02-2024 11:03-0500 Diastolic blood pressure 72 mm[Hg] Teresa Arringtonor-Nossek SKILLED NURSING FACILITY COUNSELOR-HOUSEKEEPING DEPARTMENT WORKER Work Phone: [facility] 04-02-2024 11:03-0500 Heart rate 105 /min Teresa Arringtonor-Nossek SKILLED NURSING FACILITY COUNSELOR-HOUSEKEEPING DEPARTMENT WORKER Work Phone: [facility] 04-02-2024 11:03-0500 Systolic blood pressure 122 mm[Hg] Teresa Arringtonor-Nossek SKILLED NURSING FACILITY COUNSELOR-HOUSEKEEPING DEPARTMENT WORKER Work Phone: [facility] 03-25-2024 10:19-0500 Body mass index (BMI) [Ratio] 27.63 kg/m2 Raghavendra Christina DO Work Phone: [facility] 03-25-2024 10:19-0500 Body weight 70.76 kg Raghavendra Christina DO Work Phone: [facility] 03-25-2024 10:19-0500 Diastolic blood pressure 68 mm[Hg] Raghavendra Christina DO Work Phone: [facility] 03-25-2024 10:19-0500 Systolic blood pressure 100 mm[Hg] Raghavendra Christina DO Work Phone: [facility] 03-11-2024 10:10-0500 Body mass index [...] 13:14-0500 Body height 160 cm Emerita Whittakermor MAGAZINE WORKER Work Phone: [facility] 02-13-2024 13:14-0500 Body mass index (BMI) [Ratio] 26.93 kg/m2 Emerita Gillmor MAGAZINE WORKER Work Phone: [facility] 02-13-2024 13:14-0500 Body weight 68.95 kg Emerita Gillmor MAGAZINE WORKER Work Phone: [facility] 02-13-2024 13:14-0500 Diastolic blood pressure 72 mm[Hg] Emerita Remediosmor MAGAZINE WORKER Work Phone: [facility] 02-13-2024 13:14-0500 Heart rate 109 /min Emerita Whittakermor MAGAZINE WORKER Work Phone: [facility] 02-13-2024 13:14-0500 Systolic blood pressure 119 mm[Hg] Emerita Gillmor MAGAZINE WORKER Work Phone: [facility] 02-11-2024 [...] (BMI) [Ratio] 25.78 kg/m2 Teresa Jo Ann-Nossek SKILLED NURSING FACILITY COUNSELOR-HOUSEKEEPING DEPARTMENT WORKER Work Phone: [facility] 01-01-2024 11:40-0500 Body weight 67.59 kg Teresa Jo Ann-Nossek SKILLED NURSING FACILITY COUNSELOR-HOUSEKEEPING DEPARTMENT WORKER Work Phone: [facility] 01-01-2024 11:40-0500 Diastolic blood pressure 82 mm[Hg] Teresa Jo Ann-Nossek SKILLED NURSING FACILITY COUNSELOR-HOUSEKEEPING DEPARTMENT WORKER Work Phone: [facility] 01-01-2024 11:40-0500 Heart rate 99 /min Teresa Jo Ann-Nossek SKILLED NURSING FACILITY COUNSELOR-HOUSEKEEPING DEPARTMENT WORKER Work Phone: [facility] 01-01-2024 11:40-0500 Systolic blood pressure 100 mm[Hg] Teresa Jo Ann-Nossek SKILLED NURSING FACILITY COUNSELOR-HOUSEKEEPING DEPARTMENT WORKER Work Phone: [facility] 11-28-2023 [...] index (BMI) [Ratio] 25.6 kg/m2 [facility] 11-01-2023 15:16-0400 Body weight 67.13 kg [facility] 10-18-2023 11:32-0400 [...] 122 mm[Hg] Ysabel Cabral MD Work Phone: [facility] Healthcare Encounters Encounter Date Encounter Type Care Provider Facility Start: 04-29-2024 End: 04-29-2024 ambulatory RAGHAVENDRA CHRISTINA Not Available Start: 04-29-2024 End: 04-29-2024 Bamboo flowsheet Raghavendra Christina DO Work Phone: [facility] Start: 04-29-2024 End: 04-29-2024 Bamboo flowsheet Raghavendra Christina DO Work Phone: [facility] Start: 04-29-2024 End: 04-29-2024 Clinisync Result Encounter Generic External Data Provider [facility] External Department Unsolicited Start: 04-29-2024 End: 04-29-2024 [...] 04-02-2024 End: 04-02-2024 Bamboo flowsheet Teresa Arringtonor-Nossek SKILLED NURSING FACILITY COUNSELOR-HOUSEKEEPING 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 Comment on above: Generalized anxiety disorder (CMS/HCC); [...] 02-13-2024 End: 02-13-2024 Bamboo flowsheet Emerita Suhasr MAGAZINE WORKER Work Phone: [facility] [place] [address] Start: 02-13-2024 End: 02-13-2024 Bamboo flowsheet Emerita Remediosmor MAGAZINE WORKER Work Phone: [facility] [address] [address] Start: 02-13-2024 End: 02-13-2024 ambulatory EMERITA REMEDIOSMOR Not Available Start: 02-13-2024 End: 02-13-2024 Office outpatient visit 15 minutes Emerita Warren MAGAZINE WORKER Work Phone: [facility] Comment on above: Intractable chronic [...] yrs Raghavendra Valdezo DO Work Phone: [facility] Comment on above: Well woman exam with routine gynecological exam; Second trimester ; 18 weeks gestation of ; Vaginal discharge; STD exposure; Screening, , for anatomic survey; Gastroesophageal reflux in Start: 01-10-2024 End: 01-10-2024 ambulatory RAGHAVEDNRA VASQUEZ Not Available Start: 01-01-2024 End: 01-01-2024 Bamboo flowsheet Teresa Cherry-Chayosek SKILLED NURSING FACILITY COUNSELORYoozon Work Phone: [facility] Start: 01-01-2024 End: 01-01-2024 Bamboo flowsheet Teresa Cherry-Nossek SKILLED NURSING FACILITY COUNSELOR-PubNub Work Phone: [facility] Start: 01-01-2024 End: 01-01-2024 ambulatory TERESA ARRINGTONOR-NOSSEK Not Available Start: 01-01-2024 End: 01-01-2024 Office outpatient visit 25 minutes Teresa Arringtonor-Nossek SKILLED NURSING FACILITY COUNSELOR-PubNub Work Phone: [facility] Comment on above: [...] Office outpatient visit 15 minutes Teresa Ornelas SKILLED NURSING FACILITY COUNSELOR-HOUSEKEEPING DEPARTMENT WORKER Work Phone: [facility] Comment on above: Attention deficit hy peractivity [...] Bamboo flowsheet Evonne Childress DO Work Phone: [facility] Start: 10-18-2023 End: 10-18-2023 Office outpatient visit 15 minutes Ysabel Cabral MD Work Phone: [facility] Comment on above: Morning sickness (Pr imary Dx) Start: 10-18-2023 End: 10-18-2023 ambulatory YSABEL CABRAL Not Available Start: 10-18-2023 End: 10-18-2023 Office outpatient visit 25 minutes Evonne Childress DO Work Phone: [facility] Comment on above: Intractable chronic [...] ambulatory DR TALITA DODSON Facility: Start: 05-11-2021 ([facility] C Vac) [facility] Co vid Vaccine Vicky Joe [facility] Start: 05-11-2021 End: 05-11-2021 ambulatory Vicky Joe Other [employer] Other Start: 03-01-2021 End: 03-01-2021 ambulatory CHLOE [...] Data Provider Start: 03-07-2024 [facility] UA (CLEAN/CATCH) HOUSEKEEPING DEPARTMENT WORKER/MICRO IF IND. Raghavendra Christina DO Work Phone: [...] HBSAG, HCV, CA, MG, RHF, URCA #### [facility] [address] [facility] [address] Plan of Treatment Date Care Activity Detail Author Start: 01-09-2027 Screening for malign ant neoplasm of cervix [facility] Start: 06-17-2024 End: 06-17-2024 Patient encounter procedure 06/17/2024 11:30 AM EDT Office Visit [facility] [address] [facility] [address] [place] [id number] Teresa Ornelas, SKILLED NURSING FACILITY COUNSELOR-HOUSEKEEPING DEPARTMENT WORKER [address] [facility] [address] [place] [address] [facility] Start: 05-13-2024 End: 05-13-2024 Patient encounter procedure 05/13/2024 2:00 PM EDT Routine [facility] [address] [facility] [place] [address] Raghavendra Vasquez, DO [address] [place] [address] [facility] Start: 05-06-2024 End: 05-06-2024 [...] AM EST Routine [facility] [address] [facility] [place] [address] Raghavendra Vasquez, DO [address] [place] [address] [facility] Start: 04-08-2024 End: 10-06-2024 [...] [facility] [address] [place] [address] Raghavendra Vasquez, DO [address] [place] [address] [facility] Start: 04-02-2024 End: 04-02-2024 Patient encounter procedure 04/02/2024 11:00 AM EST Office Visit [facility] [address] [facility] [address] [place] [address] Teresa Ornelas, SKILLED NURSING FACILITY COUNSELOR-HOUSEKEEPING DEPARTMENT WORKER [address] [facility] [address] [place] [address] [facility] Start: 03-25-2024 End: 03-25-2024 Patient encounter procedure 03/25/2024 10:00 AM EST Routine [facility] [address] [facility] [place] [phone] Raghavendra Vasquez, DO [address] [facility] [place] [address] [facility] Start: 03-11-2024 End: 03-11-2024 Patient encounter procedure 03/11/2024 9:40 AM EST Routine [facility] [address] [facility] [place] [phone] Raghavendra Vasquez, DO [address] [address] [facility] Start: 02-13-2024 End: 02-13-2024 Patient encounter procedure 02/13/2024 1:00 PM EST Office Visit [facility] [place] [facility] [address] [place] [phone] Emerita Warren, NATAN [address] [place], [place] [facility] [place] [facility] Start: 02-11-2024 End: 02-10-2025 CBC [...] mellitus screening Expected: 02/11/2024 (Approximate), Expires: 02/10/2025 [facility] Comment on above: Expected: 02/11/2024 (Approximate), Expires: 02/10/2025 Start: 02-11-2024 End: 02-10-2025 US for US OB SCAN FOR GROWTH Imaging Routine 23 weeks gestation of Diabetes mellitus screening Expected: 02/11/2024 (Approximate), Expires: 02/10/2025 [facility] Comment on above: Expected: 02/11/2024 (Approximate), Expires: 02/10/2025 Start: 02-11-2024 End: 02-11-2024 Patient encounter procedure 02/11/2024 9:40 AM EST Routine [facility] [address] [facility] [place] [phone] Raghavendra Vasquez, [address] [facility] [place] [address] [facility] Start: 01-28-2024 End: 01-28-2024 Professional / ancillary services management 01/28/2024 11:00 AM EST Ancillary Procedure [facility] [address] [place] [phone] [facility] Start: 01-10-2024 End: 07-09-2024 Alpha fetoprotein, maternal Alpha fetoprotein, maternal Lab Routine Second trimester 18 weeks gestation of Expected: 01/10/2024 (Approximate), Expires: 07/09/2024 [facility] Comment on above: Expected: 01/10/2024 [...] Routine [facility] [address] [place] [phone] Raghavendra Vasquez, DO [address] [place] [address] [facility] Start: 01-01-2024 End: 01-01-2024 Patient encounter procedure 01/01/2024 11:30 AM EST Office Visit [facility] [address] [facility] [address] [place] [address] Teresa Ornelas, SKILLED NURSING FACILITY COUNSELOR-[facility] [address] [facility] [address] [place] [address] [facility] Start: 12-18-2023 End: 12-18-2023 Patient encounter procedure 12/18/2023 5:30 PM EDT Office Visit [facility] [place] [address] [place] [phone] Evonne Childress, [address] [place] [address] [facility] [place] [facility] Start: 11-28-2023 End: 11-28-2023 Patient encounter procedure 11/28/2023 2:20 PM EDT Routine [facility] [address] [place] [phone] Raghavendra Vasquez, DO [address] [place] [address] [facility] Start: 11-27-2023 End: 11-27-2023 Patient encounter procedure 11/27/2023 11:00 AM EDT Office Visit [facility] [address] [facility] [address] [place] [address] Teresa Ornelas, SKILLED NURSING FACILITY COUNSELOR-[facility] [address] [facility] [address] [place] [address] [facility] Start: 11-01-2023 End: 10-31-2024 ABO/Rh ABO/Rh Lab Routine Missed menses Expected: 11/01/2023 (Approximate), Expires: 10/31/2024 [facility] Healthcare Comment on above: Expected: 11/01/2023 (Approximate), Expires: 10/31/2024 Start: 11-01-2023 End: 11-01-2023 ambulatory 11/01/2023 2:00 PM EDT Initial [facility] [address] [place] [address] [facility] Start: 11-01-2023 End: 10-31-2024 Blood type and Indirect antibody screen panel - Blood Type and screen Lab Routine Missed menses Expected: 11/01/2023 (Approximate), Expires: 10/31/2024 [facility] Work Phone: Comment on above: Expected: 11/01/2023 (Approximate), Expires: 10/31/2024 Start: 11-01-2023 End: 10-31-2024 US Pelvis transvaginal US OB transvaginal Imaging Routine Missed menses Expected: 11/01/2023 (Approximate), Expires: 10/31/2024 [facility] Comment on above: Expected: 11/01/2023 (Approximate), Expires: 10/31/2024 Start: 11-01-2023 End: 11-01-2023 Professional / ancillary services management 11/01/2023 1:30 PM EDT Ancillary Procedure [facility] [address] [place] [address] [facility] Start: 10-28-2023 Influenza vaccination Influenza Vacc ine (#1) [facility] Start: 10-18-2023 End: 10-18-2023 Patient encounter procedure 10/18/2023 11:40 AM EDT Office Visit [facility] MICHELLE [address] [place] [phone] Ysabel Cabral MD [address] [place], [place] [phone] [facility] Start: 10-18-2023 End: 10-18-2023 Patient encounter procedure 10/18/2023 10:30 AM EDT Procedure Visit [facility] [place] [address] [place] [address] Evonne Childress DO [address] [place] [address] Arrived [facility] Comment on above: Arrived Start: [...] Corrina hanson 05-11-2021 COVID-19 En Joe Other [employer] Other 10-02-2016 influenza, injectabl e, quadrivalent, preservative free Evonne Jaydon DO Work Phone: [facility] 10-02-2016 influenza virus vaccine, unspecified formulation Evonne Jaydon DO Work Phone: [facility] 10-13-2015 influenza, injectabl e, quadrivalent, preservative free Evonne Jaydon DO Work Phone: [facility] 12-02-2014 influenza, seasonal, injectable, preservative free Evonne Childress DO Work Phone: [facility] Payers Date Payer Category Payer Medicaid [facility] MEDICAID [place] [id number] 2021-Present [address] [place] [address] [id number] 2021 Medicaid (Managed Care) [facility] MEDICAID [id number] 1987 Unknown [id number] 2.840.1.340052.3.579.2. 593 1987 Unknown [id number] 2.16840.1.550215.3.579.2. 593 1987 Unknown [id number] 2.16840.1.957814.3.579.2. 593 1987 Unknown [id number] 2.16.840.1.179892.3.579.2. 1259 1987 Unknown [id number] 2.16.840.1.388907.3.579.2. 1259 1987 Unknown [id number] 2.16.840.1.040936.3.579.2. 1259 1987 Unknown [id number] 2.16.840.1.159535.3.579.2. 1259 1987 Unknown [id number] 2.16.840.1.548898.3.579.2. 1258 1987 Unknown [id number] 2.16.840.1.650844.3.579.2. 1258 1987 Unknown [id number] 2..840.1.922245.3.579.2. 1258 1987 Unknown [id number] 2.16.840.1.051104.3.579.2. 1258 1987 Unknown [id number] 2..840.1.983501.3.579.2. 1258 1987 Unknown [id number] 2..840.1.205065.3.579.2. 1258 1987 Unknown [id number] 2.840.1.984077.3.579.2. 1258 1987 Unknown [id number] 2.840.1.269767.3.579.2. 1258 1987 Unknown [id number] 2.840.1.572972.3.579.2. 1258 1987 Unknown [id number] 2.840.1.810307.3.579.2. 1258 1987 Unknown [id number] 2.840.1.745118.3.579.2. 1258 1987 Unknown [id number] 2.840.1.123900.3.579.2. 1258 1987 Unknown [id number] 2.840.1.093621.3.579.2. 1258 1987 Unknown [id number] 2.840.1.793027.3.579.2. 1258 1987 Unknown [id number] 2.840.1.338367.3.579.2. 1258 1987 Unknown [id number] 2..840.1.041900.3.579.2. 1258 1987 Unknown [id number] 2.840.1.425124.3.579.2. 1259 1987 Unknown [id number] 2.16.840.1.645147.3.579.2. 9 1987 Unknown [id number] 2.16.840.1.809557.3.579.2. 9 1987 Unknown [id number] 2.16.840.1.393942.3.579.2. 9 1987 Unknown [id number] 2.16.840.1.723564.3.579.2. 1259 1959 Unknown [id number] 2.16.840.1.771865.19 Social History Date Type Detail Facility Unknown if ever smoked [employer] Other Start: 2022 End: 01-01-2024 Sex Assigned At [employer] Other Start: 12-22-2022 Tobacco smoking stat [facility] Never smoked tobacco [facility] [...] Clinical Notes 05-11-2021 to 04-29-2024 Betsey Malave, RADIO MACHINIST - 04/29/2024 2:00 PM Christine Lundberg, RADIO MACHINIST - 04/08/2024 11:40 AM America CherryVenitaAdrianne, SKILLED NURSING FACILITY COUNSELOR-HOUSEKEEPING DEPARTMENT WORKER - 04/02/2024 11:00 AM Christine Lundberg, RADIO MACHINIST - 03/25/2024 10:00 AM EST Note Date [...] Attention deficit hyperactivity disorder (ADHD), combined type ([facility]) 07/04/2022 Episodic mood disorder ([facility]) 07/04/2022 Generalized anxiety disorder ([facility]) 07/04/2022 Panic disorder ([facility]) 07/04/2022 Acquired scoliosis 09/09/2016 Allergic rhinitis 10/16/2019 Anxiety 01/31/2020 Asthma ([facility]) 12/31/2014 Chronic fatigue syndrome 07/03/2016 Chronic gastritis without bleeding 12/28/2022 Irritable bowel syndrome 07/03/2016 Migraine without aura and without status migrainosus, not intractable ([facility]) 09/19/2017 Mild intermittent asthma ([facility]) 02/28/2021 Primary localized osteoarthrosis of ankle [...] Back pain Common migraine (CMS/HCC) 08/17/2015 Depression ([facility]/HCC) H/O colonoscopy H/O umbilical hernia repair Insomnia 06/25/2017 Migraines (CMS/HCC) Nausea with vomiting 08/17/2015 Tendonitis of right hand Tension headache 08/17/2015 HISTORY PAST MEDICAL HISTORY SOCIAL HISTORY Past Medical History: Diagnosis Date Adenoma of left breast removed 2013 ADHD (attention deficit hyperactivity disorder) (CMS/HCC) Anemia Anxiety Asthma (CMS/HCC) Back pain Common migraine (CMS/HCC) 08/17/2015 Depression ([facility]/HCC) H/O colonoscopy 2012 H/O umbilical hernia repair 2008 Headache 08/17/2015 Inadequate sleep hygiene 04/23/2018 Insomnia 06/25/2017 Migraine (CMS/HCC) 03/22/2017 Migraines ([facility]) Nausea with vomiting 08/17/2015 Pain in [...] nursing note reviewed. Exam conducted with a continuous improvement engineer present. Vitals: Estimated body mass index is [...] in this encounter [facility] 04-08-2024 History of Present illness [...] Attention deficit hyperactivity disorder (ADHD), combined type ([facility]) 07/04/2022 Episodic mood disorder ([facility]) 07/04/2022 Generalized anxiety disorder ([facility]) 07/04/2022 Panic disorder ([facility]) 07/04/2022 Acquired scoliosis 09/09/2016 Allergic rhinitis 10/16/2019 Anxiety 01/31/2020 Asthma ([facility]) 12/31/2014 Chronic fatigue syndrome 07/03/2016 Chronic gastritis without bleeding 12/28/2022 Irritable bowel syndrome 07/03/2016 Migraine without aura and without status migrainosus, not intractable ([facility]) 09/19/2017 Mild intermittent asthma ([facility]) 02/28/2021 Primary localized osteoarthrosis of ankle and foot 03/13/2019 Vitamin D deficiency 12/28/2022 Headache 06/28/2023 Inadequate sleep hygiene 06/28/2023 Migraine ([facility]) 06/28/2023 Tenosynovitis of foot 06/28/2023 Nausea and vomiting 06/28/2023 Common migraine with intractable migraine ([facility]) 06/28/2023 Pain in limb 06/28/2023 Chronic tension-type headache, not intractable 06/28/2023 Sleep disturbance 06/28/2023 Insomnia, unspecified 06/28/2023 Other problems related to lifestyle 06/28/2023 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 08/10/2023 Resolved Ambulatory Problems Diagnosis Date Noted No Resolved Ambulatory Problems Past Medical History: Diagnosis Date Adenoma of left breast ADHD (attention deficit hyperactivity disorder) ([facility]) Anemia Back pain Common migraine ([facility]) 08/17/2015 Depression ([facility]) H/O colonoscopy H/O umbilical hernia repair Insomnia 06/25/2017 Migraines ([facility]) Nausea with vomiting 08/17/2015 Tendonitis of right hand Tension headache 08/17/2015 HISTORY PAST MEDICAL HISTORY SOCIAL HISTORY Past Medical History: Diagnosis Date Adenoma of left breast removed 2013 ADHD (attention deficit hyperactivity disorder) ([facility]) Anemia Anxiety Asthma ([facility]) Back pain Common migraine ([facility]/HCC) 08/17/2015 Depression ([facility]) H/O colonoscopy 2012 H/O umbilical hernia repair 2008 Headache 08/17/2015 Inadequate sleep hygiene 04/23/2018 Insomnia 06/25/2017 Migraine (CMS/HCC) 03/22/2017 Migraines ([facility]) Nausea with vomiting 08/17/2015 Pain in [...] nursing note reviewed. Exam conducted with a continuous improvement engineer present. Vitals: Estimated body mass index is [...] Veda Sarmiento PA-C documented in this encounter [facility] 04-02-2024 History of Present illness Narrative Images from the original note were not included. Patient reports not starting the Zoloft after last visit. Tiki Moeller is a 38 y.o. female presents for Medication Management. HPI: Patient is here for medication follow up. Patient is currently 32weeks decided not to take zoloft. Got fired from [employer] due to falling asleep. She was feeling [...] removed 2013 ADHD (attention deficit hyperactivity disorder) ([facility]) Anemia Anxiety Asthma ([facility]) Back pain Common migraine (CMS/HCC) 08/17/2015 [...] check for post documented in this encounter [facility] 03-25-2024 History of Present illness [...] 09/09/2016 Allergic rhinitis 10/16/2019 Anxiety 01/31/2020 Asthma ([facility]/HCC) 12/31/2014 Chronic fatigue syndrome 07/03/2016 Chronic gastritis without bleeding 12/28/2022 Irritable bowel syndrome 07/03/2016 Migraine without aura and without status migrainosus, not intractable ([facility]) 09/19/2017 Mild intermittent asthma ([facility]) 02/28/2021 Primary localized osteoarthrosis of ankle and foot 03/13/2019 Vitamin D deficiency 12/28/2022 Headache 06/28/2023 Inadequate sleep hygiene 06/28/2023 Migraine ([facility]/HCC) 06/28/2023 Tenosynovitis of foot 06/28/2023 Nausea and vomiting 06/28/2023 Common migraine with intractable migraine ([facility]) 06/28/2023 Pain in limb 06/28/2023 Chronic tension-type headache, not intractable 06/28/2023 Sleep disturbance 06/28/2023 Insomnia, unspecified 06/28/2023 Other problems related to lifestyle 06/28/2023 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 08/10/2023 Resolved Ambulatory Problems Diagnosis Date Noted No Resolved Ambulatory Problems Past Medical History: Diagnosis Date Adenoma of left breast ADHD (attention deficit hyperactivity disorder) ([facility]) Anemia Back pain Common migraine ([facility]) 08/17/2015 Depression ([facility]) H/O colonoscopy H/O umbilical hernia repair Insomnia 06/25/2017 Migraines ([facility]) Nausea with vomiting 08/17/2015 Tendonitis of right hand Tension headache 08/17/2015 HISTORY PAST MEDICAL HISTORY SOCIAL HISTORY Past Medical History: Diagnosis Date Adenoma of left breast removed 2013 ADHD (attention deficit hyperactivity disorder) ([facility]) Anemia Anxiety Asthma ([facility]) Back pain Common migraine ([facility]) 08/17/2015 Depression ([facility]) H/O colonoscopy 2012 H/O umbilical hernia repair 2007 Headache 08/17/2015 Inadequate sleep hygiene 04/23/2018 Insomnia 06/25/2017 Migraine ([facility]/HCC) 03/22/2017 Migraines ([facility]) Nausea with vomiting 08/17/2015 Pain in [...] nursing note reviewed. Exam conducted with a continuous improvement engineer present. Vitals: Estimated body mass index is [...] in this encounter [facility] 03-11-2024 History of Present illness [...] Attention deficit hyperactivity disorder (ADHD), combined type ([facility]) 07/04/2022 Episodic mood disorder ([facility]) 07/04/2022 Generalized anxiety disorder ([facility]) 07/04/2022 Panic disorder ([facility]) 07/04/2022 Acquired scoliosis 09/09/2016 Allergic rhinitis 10/16/2019 Anxiety 01/31/2020 Asthma ([facility]) 12/31/2014 Chronic fatigue syndrome 07/03/2016 Chronic gastritis without bleeding 12/28/2022 Irritable bowel syndrome 07/03/2016 Migraine without aura and without status migrainosus, not intractable ([facility]) 09/19/2017 Mild intermittent asthma ([facility]) 02/28/2021 Primary localized osteoarthrosis of ankle and foot 03/13/2019 Vitamin D deficiency 12/28/2022 Headache 06/28/2023 Inadequate sleep hygiene 06/28/2023 Migraine ([facility]) 06/28/2023 Tenosynovitis of foot 06/28/2023 Nausea and vomiting 06/28/2023 Common migraine with intractable migraine ([facility]) 06/28/2023 Pain in limb 06/28/2023 Chronic tension-type headache, not intractable 06/28/2023 Sleep disturbance 06/28/2023 Insomnia, unspecified 06/28/2023 Other problems related to lifestyle 06/28/2023 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 08/10/2023 Resolved Ambulatory Problems Diagnosis Date Noted No Resolved Ambulatory Problems Past Medical History: Diagnosis Date Adenoma of left breast ADHD (attention deficit hyperactivity disorder) ([facility]) Anemia Back pain Common migraine ([facility]) 08/17/2015 Depression ([facility]) H/O colonoscopy H/O umbilical hernia repair Insomnia 06/25/2017 Migraines ([facility]) Nausea with vomiting 08/17/2015 Tendonitis of right hand Tension headache 08/17/2015 HISTORY PAST MEDICAL HISTORY SOCIAL HISTORY Past Medical History: Diagnosis Date Adenoma of left breast removed 2013 ADHD (attention deficit hyperactivity disorder) ([facility]) Anemia Anxiety Asthma ([facility]) Back pain Common migraine ([facility]) 08/17/2015 Depression ([facility]) H/O colonoscopy 2012 H/O umbilical hernia repair 2008 Headache 08/17/2015 Inadequate sleep hygiene 04/23/2018 Insomnia 06/25/2017 Migraine ([facility]) 03/22/2017 Migraines ([facility]) Nausea with vomiting 08/17/2015 Pain in [...] Hyperlipidemia Mother Idania Swartz Sarcoidosis Mother Idania Wsartz Migraines Mother Idania Swartz Rheum arthritis Father [...] nursing note reviewed. Exam conducted with a continuous improvement engineer present. Vitals: Estimated body mass index is [...] Attention deficit hyperactivity disorder (AD[place]), combined type [place] 07/04/2022 Episodic mood disorder ([facility] 07/04/2022 Generalized anxiety disorder [place] 07/04/2022 Panic disorder [place] 07/04/2022 Acquired scoliosis 09/09/2016 Allergic rhinitis 10/16/2019 Anxiety 01/31/2020 Asthma ([facility]) 12/31/2014 Chronic fatigue syndrome 07/03/2016 Chronic gastritis without bleeding 12/28/2022 Irritable bowel syndrome 07/03/2016 Migraine without aura and without status migrainosus, not intractable ([facility] 09/19/2017 Mild intermittent asthma ([facility] 02/28/2021 Primary localized osteoarthrosis of ankle and foot 03/13/2019 Vitamin D deficiency 12/28/2022 Headache 06/28/2023 Inadequate sleep hygiene 06/28/2023 Migraine ([facility] 06/28/2023 Tenosynovitis of foot 06/28/2023 Nausea and vomiting 06/28/2023 Common migraine with intractable migraine ([facility] 06/28/2023 Pain in limb 06/28/2023 Chronic tension-type headache, not intractable 06/28/2023 Sleep disturbance 06/28/2023 Insomnia, unspecified 06/28/2023 Other problems related to lifestyle 06/28/2023 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 08/10/2023 Resolved Ambulatory Problems Diagnosis Date Noted No Resolved Ambulatory Problems Past Medical History: Diagnosis Date Adenoma of left breast ADHD (attention deficit hyperactivity disorder) ([facility]) Anemia Back pain Common migraine ([facility]) 08/17/2015 Depression [place] H/O colonoscopy H/O umbilical hernia repair Insomnia 06/25/2017 Migraines ([facility]) Nausea with vomiting 08/17/2015 Tendonitis of right hand Tension headache 08/17/2015 HISTORY PAST MEDICAL HISTORY SOCIAL HISTORY Past Medical History: Diagnosis Date Adenoma of left breast removed 2013 ADHD (attention deficit hyperactivity disorder) ([facility] Anemia Anxiety Asthma [place] Back pain Common migraine [place] 08/17/2015 Depression [place] H/O colonoscopy 2012 H/O umbilical hernia repair 2008 Headache 08/17/2015 Inadequate sleep hygiene 04/23/2018 Insomnia 06/25/2017 Migraine (CMS/HCC) 03/22/2017 Migraines ([facility]/H[facility]) Nausea with vomiting 08/17/2015 Pain in [...] nursing note reviewed. Exam conducted with a continuous improvement engineer present. Vitals: Estimated body mass index is [...] Attention deficit hyperactivity disorder (ADHD), combined type ([facility] 07/04/2022 Episodic mood disorder ([facility] 07/04/2022 Generalized anxiety disorder ([facility] 07/04/2022 Panic disorder ([facility] 07/04/2022 Acquired scoliosis 09/09/2016 Allergic rhinitis 10/16/2019 Anxiety 01/31/2020 Asthma ([facility] 12/31/2014 Chronic fatigue syndrome 07/03/2016 Chronic gastritis without bleeding 12/28/2022 Irritable bowel syndrome 07/03/2016 Migraine without aura and without status migrainosus, not intractable ([facility] 09/19/2017 Mild intermittent asthma ([facility] 02/28/2021 Primary localized osteoarthrosis of ankle and foot 03/13/2019 Vitamin D deficiency 12/28/2022 Headache 06/28/2023 Inadequate sleep hygiene 06/28/2023 Migraine ([facility]) 06/28/2023 Tenosynovitis of foot 06/28/2023 Nausea and vomiting 06/28/2023 Common migraine with intractable migraine ([facility] 06/28/2023 Pain in limb 06/28/2023 Chronic tension-type headache, not intractable 06/28/2023 Sleep disturbance 06/28/2023 Insomnia, unspecified 06/28/2023 Other problems related to lifestyle 06/28/2023 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 08/10/2023 Resolved Ambulatory Problems Diagnosis Date Noted No Resolved Ambulatory Problems Past Medical History: Diagnosis Date Adenoma of left breast ADHD (attention deficit hyperactivity disorder) [place] Anemia Back pain Common migraine ([facility]) 08/17/2015 Depression [place] H/O colonoscopy H/O umbilical hernia repair Insomnia 06/25/2017 Migraines ([facility] Nausea with vomiting 08/17/2015 Tendonitis of right hand Tension headache 08/17/2015 HISTORY PAST MEDICAL HISTORY SOCIAL HISTORY Past Medical History: Diagnosis Date Adenoma of left breast removed 2013 ADHD (attention deficit hyperactivity disorder) ([facility]) Anemia Anxiety Asthma ([facility]) Back pain Common migraine ([facility]/HCC) 08/17/2015 Depression (CMS/HCC) H/O colonoscopy 2012 H/O umbilical hernia repair 2008 Headache 08/17/2015 Inadequate sleep hygiene 04/23/2018 Insomnia 06/25/2017 Migraine (CMS/HCC) 03/22/2017 Migraines ([facility]) Nausea with vomiting 08/17/2015 Pain in [...] nursing note reviewed. Exam conducted with a continuous improvement engineer present. Vitals: Estimated body mass index is [...] difficulty and patient was given [facility] order to have obtained. Sent Omeprazole to [...] visit. 20 weeks. 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 [employer]. Psychosocial stressors include . SUBJECTIVE: PAST MEDICAL HISTORY: Past Medical History: Diagnosis Date Adenoma of left breast removed 2013 ADHD (attention deficit hyperactivity disorder) ([facility] Anemia Anxiety Asthma ([facility]) Back pain Common migraine ([facility]) 08/17/2015 Depression ([facility]) H/O colonoscopy 2012 H/O umbilical hernia repair 2007 Headache 08/17/2015 Inadequate sleep hygiene 04/23/2018 Insomnia 06/25/2017 Migraine ([facility]) 03/22/2017 Migraines ([facility]) Nausea with vomiting 08/17/2015 Pain in [...] Time Memory/Concentration Short term intact and termite helper intact Insight/Judgement Fair OBJECTIVE: Visit Vitals LMP [...] Attention deficit hyperactivity disorder (ADHD), combined type ([facility]) 07/04/2022 Episodic mood disorder ([facility]) 07/04/2022 Generalized anxiety disorder ([facility]) 07/04/2022 Panic disorder ([facility]) 07/04/2022 Acquired scoliosis 09/09/2016 Allergic rhinitis 10/16/2019 Anxiety 01/31/2020 Asthma ([facility]) 12/31/2014 Chronic fatigue syndrome 07/03/2016 Chronic gastritis without bleeding 12/28/2022 Irritable bowel syndrome 07/03/2016 Migraine without aura and without status migrainosus, not intractable ([facility]) 09/19/2017 Mild intermittent asthma ([facility]) 02/28/2021 Primary localized osteoarthrosis of ankle and foot 03/13/2019 Vitamin D deficiency 12/28/2022 Headache 06/28/2023 Inadequate sleep hygiene 06/28/2023 Migraine (CMS/HCC) 06/28/2023 Tenosynovitis of foot 06/28/2023 Nausea and vomiting 06/28/2023 Common migraine with intractable migraine ([facility]/HCC) 06/28/2023 Pain in limb 06/28/2023 Chronic tension-type headache, not intractable 06/28/2023 Sleep disturbance 06/28/2023 Insomnia, unspecified 06/28/2023 Other problems related to lifestyle 06/28/2023 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 08/10/2023 Resolved Ambulatory Problems Diagnosis Date Noted No Resolved Ambulatory Problems Past Medical History: Diagnosis Date Adenoma of left breast ADHD (attention deficit hyperactivity disorder) ([facility]) Anemia Back pain Common migraine ([facility]/HCC) 08/17/2015 Depression ([facility]) H/O colonoscopy H/O umbilical hernia repair Insomnia 06/25/2017 Migraines ([facility]) Nausea with vomiting 08/17/2015 Tendonitis of right hand Tension headache 08/17/2015 HISTORY PAST MEDICAL HISTORY SOCIAL HISTORY Past Medical History: Diagnosis Date Adenoma of left breast removed 2013 ADHD (attention deficit hyperactivity disorder) ([facility]) Anemia Anxiety Asthma ([facility]) Back pain Common migraine ([facility]) 08/17/2015 Depression ([facility]) H/O colonoscopy 2012 H/O umbilical hernia repair 2007 Headache 08/17/2015 Inadequate sleep hygiene 04/23/2018 Insomnia 06/25/2017 Migraine (CMS/HCC) 03/22/2017 Migraines ([facility]) Nausea with vomiting 08/17/2015 Pain in [...] nursing note reviewed. Exam conducted with a continuous improvement engineer present. Vitals: Estimated body mass index is [...] or undercooked meat, and stay away from [facility]. Patient has been consulted regarding any [...] work done. 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 Psychosocial stressors include . SUBJECTIVE: PAST [...] Time Memory/Concentration Short term intact and termite helper intact Insight/Judgement Good OBJECTIVE: Visit Vitals LMP [...] the following prescription(s): albuterol hfa, albuterol hfa, xfdfrwxdpc-aztpfnpmxpdua-kuhsbmey , cyanocobalamin, d3-1000, dicyclomine, fluticasone, onabotulinumtoxina, ondansetron, promethazine, sertraline, and tizanidine. Medical History: Active Ambulatory Problems Diagnosis Date Noted Attention deficit hyperactivity disorder (ADHD), combined type (CMS/HCC) 07/04/2022 Episodic mood disorder (CMS/HCC) 07/04/2022 Generalized anxiety disorder ([facility]) 07/04/2022 Panic disorder ([facility]) 07/04/2022 Acquired scoliosis 09/09/2016 Allergic rhinitis 10/16/2019 Anxiety 01/31/2020 Asthma ([facility]) 12/31/2014 Chronic fatigue syndrome 07/03/2016 Chronic gastritis without bleeding 12/28/2022 Irritable bowel syndrome 07/03/2016 Migraine without aura and without status migrainosus, not intractable [place] 09/19/2017 Mild intermittent asthma ([facility]) 02/28/2021 Primary localized osteoarthrosis of ankle and foot 03/13/2019 Vitamin D deficiency 12/28/2022 Headache 06/28/2023 Inadequate sleep hygiene 06/28/2023 Migraine ([facility]) 06/28/2023 Tenosynovitis of foot 06/28/2023 Nausea and vomiting 06/28/2023 Common migraine with intractable migraine ([facility]) 06/28/2023 Pain in limb 06/28/2023 Chronic tension-type headache, not intractable 06/28/2023 Sleep disturbance 06/28/2023 Insomnia, unspecified 06/28/2023 Other problems related to lifestyle 06/28/2023 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 08/10/2023 Resolved Ambulatory Problems Diagnosis Date Noted No Resolved Ambulatory Problems Past Medical History: Diagnosis Date Adenoma of left breast ADHD (attention deficit hyperactivity disorder) ([facility]) Anemia Back pain Common migraine ([facility]) 08/17/2015 [place] H/O colonoscopy H/O umbilical hernia repair Insomnia 06/25/2017 Migraines ([facility]) Nausea with vomiting 08/17/2015 Tendonitis of [...] pt to schedule US w/tbh. Pt desired [facility] advised pt to wait until 10 [...] in office on 10/17 Please Fax to [phone] [facility] 10-19-2023 Miscellaneous Notes Pt needs a letter stating that she was seen in office on 10/17 Please Fax to [phone] documented [facility] encounter [facility] [...] 2 puffs, Inhalation, Every 4 hours PRN eeuqhyzphj-bkldxsgxegyoc-tgvoinzc 50-325-40 MG tablet TAKE 1 TABLET BY [...] . She still has to see her merchandising stock associate. She has been receiving the Botox injections [...] during those pregnancies. She has having some workers compensation consultant sickness with nausea. Objective Neurological Exam Physical Exam No chief complaint on file. Subjective Tiki Moeller, 38 y.o., female HPI Past Medical History: Diagnosis Date Adenoma of left breast removed 2013 ADHD (attention deficit hyperactivity disorder) ([facility] Anemia Anxiety Asthma ([facility]) Back pain Common migraine ([facility]) 08/17/2015 Depression ([facility]) H/O colonoscopy 2012 H/O umbilical hernia repair 2007 Headache 08/17/2015 Inadequate sleep hygiene 04/23/2018 Insomnia 06/25/2017 Migraine ([facility]) 03/22/2017 Migraines ([facility]) Nausea with vomiting 08/17/2015 Pain in [...] by Alexei Smith on 08/03/2021 [id number] [facility] [place] [facility] 05-11-2021 Evaluation note Encounter Date Diagnosis Assessment Notes Apr, Encounter for immunization (ICD-10 - Z23) Patient presents for COVID-19 vaccination #2. Pre-screening form answers evaluated with patient. Patient denies current illness or allergic reaction to component of COVID-19 vaccine. Patient provided with current copy of EUA. [employer] Other Evaluation note* Diagnosis Attention deficit hyperactivity disorder (ADHD), combined type (CMS/HCC) Generalized anxiety disorder (CMS/HCC) Generalized anxiety disorder documented in this encounter [facility] HealthcareEvaluation note* Diagnosis First trimester state, incidental documented in this encounter [facility] HealthcareEvaluation note* Diagnosis 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)- Primary Generalized anxiety disorder (CMS/HCC) Generalized anxiety disorder Primary insomnia Persistent disorder of initiating or maintaining sleep , unspecified gestational age documented in this encounter [facility] HealthcareEvaluation note* Diagnosis Generalized anxiety disorder (CMS/HCC)- Primary Generalized anxiety disorder documented in this encounter [facility] HealthcareEvaluation note* Diagnosis Well woman exam with routine gynecological exam Routine gynecological examination Second trimester state, incidental 18 weeks gestation of Vaginal discharge Leukorrhea, not specified as infective STD exposure Screening, , for anatomic survey Encounter for anatomic survey Gastroesophageal reflux in documented in this encounter [facility] HealthcareEvaluation note* Diagnosis 23 weeks [...] Surgical History tibial and fibular sesmoid 10-15 [employer] Other Summary Purpose Family History No Family History Records FoundNo Family History Records FoundNo Family History Records FoundNo Family History Records FoundNo Family History Records Found Advance Directives No Advanced Directives Records FoundNo Advanced Directives Records FoundNo Advanced Directives Records FoundNo Advanced Directives Records FoundNo Advanced Directives Records Found Additional Source Comments INFORMATION SOURCE (unrecogn ized section and content) DATE CREATED AUTHOR 05/25/2021 [facility] DATE CREATED AUTHOR AUTHOR'S ORGANIZ ATION 08/04/2021 [facility] DATE CREATED AUTHOR AUTHOR'S ORGANIZ ATION 11/23/2021 [facility] DATE CREATED AUTHOR AUTHOR'S ORGANIZ ATION 12/19/2022 [facility] DATE CREATED AUTHOR AUTHOR'S ORGANIZ ATION 05/01/2024 [facility] EPIC REASON FOR VISIT (unrecogniz ed section and content) Reason Comments Routine Visit Reason Comments Med Management Follow-up Reason Comments Well Women Visit Routine Visit STI Screening Reason Comments Nausea/Vomiting In Reason Comments Amenorrhea Reason Comments Migraine Care Teams (unrecognized sec tion and content) Program Manager Slp Relationship Specialty Start Date End Date Ysabel Cabral MD [address] [facility] [place] [address] PCP - General Family Medicine 07/29/22 Ale Zaldivar MD [address] [facility] [place] [address] PCP - [facility] 05/28/23 Program Manager Slp Relationship Specialty Start Date End Date Ysabel Cabral MD [address] [facility] [place] [address] PCP - General Family Medicine 07/29/22 Ale Zaldivar MD [address] [facility] [place] [address] PCP - [facility] 05/28/23 Program Manager Slp Relationship Specialty Start Date End Date Ysabel Cabral MD [address] [facility] [place] [address] PCP - General Family Medicine 07/29/22 Ale Zaldivar MD [address] [facility] [place] [address] PCP - [facility] 05/28/23 Program Manager Slp Relationship Specialty Start Date End Date Ysabel Cabral MD [address] [place] [address] PCP - General Family Medicine 07/29/22 Ale Zaldivar MD [address] [place] [address] PCP - [facility] 05/28/23 Program Manager Slp Relationship Specialty Start Date End Date Ysabel Cabral MD [address] [place] [address] PCP - General Family [facility] 07/29/22 Ale Zaldivar MD [address] [place] [address] PCP - [facility] 05/28/23 Program Manager Slp Relationship Specialty Start Date End Date Ysabel Cabral MD [address] [place] [address] PCP - General [facility] 07/29/22 Ale Zaldivar MD [address] [place] [address] PCP - [facility] 05/28/23 Program Manager Slp Relationship Specialty Start Date End Date Ysabel Cabral MD [address] [place] [address] PCP - General Family Medicine 07/29/22 Chloe Carvajal NP [address] [place] [address] PCP - [facility] 11/27/23 Program Manager Slp Relationship Specialty Start Date End Date Ysabel Cabral MD [address] [place] [address] PCP - General Family Medicine 07/29/22 Chloe Carvajal, MAGAZINE WORKER [address] [place] [address] PCP - [facility] 11/27/23 Program Manager Slp Relationship Specialty Start Date End Date Ysabel Cabral MD [address] [place] [address] PCP - General Family Medicine 07/29/22 Chloe Carvajal, MAGAZINE WORKER [address] [facility] [place] [address] PCP - [facility] 11/27/23 Program Manager Slp Relationship Specialty Start Date End Date Ysabel Cabral MD [address] [place] [address] PCP - General Family Medicine 07/29/22 Chloe Carvajal, MAGAZINE WORKER PCP - [facility] 11/27/23 Program Manager Slp Relationship Specialty Start Date End Date Ysabel Cabral MD [address] [facility] [place] [address] PCP - General Family Medicine 07/29/22 Chloe Carvajal, MAGAZINE WORKER PCP - [facility] 11/27/23 Program Manager Slp Relationship Specialty Start Date End Date Ysabel Cabral MD [address] [place] [address] PCP - General Family Medicine 07/29/22 Ale Zaldivar MD [address] [place] [address] PCP - [facility] 05/28/23 Program Manager Slp Relationship Specialty Start Date End Date Ysabel Cabral MD [address] [place] [address] PCP - General Family Medicine 07/29/22 Ale Zaldivar MD [address] [place] [address] PCP - [facility] 05/28/23 Program Manager Slp Relationship Specialty Start Date End Date Ysabel Cabral MD [address] [place] [address] PCP - General Family Medicine 07/29/22 Ale Zaldivar MD [address] [place] [address] PCP - [facility] 05/28/23 Program Manager Slp Relationship Specialty Start Date End Date Ysabel Cabral MD [address] [place] [address] PCP - General Family Medicine 07/29/22 Chloe Carvajal NP PCP - [facility] 11/27/23 Program Manager Slp Relationship Specialty Start Date End Date Ysabel Cabral MD [address] [place] [address] PCP - General Family Medicine 07/29/22 Ale Zaldivar MD [address] [place] [address] PCP - [facility] 05/28/23 Program Manager Slp Relationship Specialty Start Date End Date Ysabel Cabral MD [address] [place] [address] PCP - General Family Medicine 07/29/22 Ale Zaldivar MD [address] [place] [address] PCP - [facility] 05/28/23 Program Manager Slp Relationship Specialty Start Date End Date Ysabel Cabral MD [address] [place] [address] PCP - General Family Medicine 07/29/22 Chloe Carvajal, MAGAZINE WORKER PCP - [facility] 11/27/23 Program Manager Slp Relationship Specialty Start Date End Date Ysabel Cabral MD [address] [place] [address] PCP - General Family Medicine 07/29/22 Chloe Carvajal, MAGAZINE WORKER PCP - [facility] 11/27/23 Program Manager Slp Relationship Specialty Start Date End Date Ysabel Cabral MD [address] [place] [address] PCP - General Family Medicine 07/29/22 Chloe Carvajal, MAGAZINE WORKER PCP [facility] 11/27/23 Program Manager Slp Relationship Specialty Start Date End Date Ysabel Cabral MD [address] [place] [address] PCP - General [facility] 07/29/22 Chloe Carvajal, MAGAZINE WORKER PCP - [facility] 11/27/23 Program Manager Slp Relationship Specialty Start Date End Date Ysabel Cabral MD [address] [place] [address] PCP - [facility] 07/29/22 Chloe Carvajal, MAGAZINE WORKER PCP - [facility] 11/27/23 Teresa Ornelas, SKILLED NURSING FACILITY COUNSELOR-HOUSEKEEPING DEPARTMENT WORKER [address] [facility] [address] [place] [address] Nurse Practitioner Psychiatry 03/14/24 Program Manager Slp Relationship Specialty Start Date End Date Ysabel Cabral MD [address] [place] [address] PCP - [facility] 07/29/22 Chloe Carvajal, MAGAZINE WORKER PCP - [facility] 11/27/23 Teresa Ornelas, SKILLED NURSING FACILITY COUNSELOR-HOUSEKEEPING DEPARTMENT WORKER [address] [facility] [address] [place] [address] Nurse Practitioner Psychiatry 03/14/24 Program Manager Slp Relationship Specialty Start Date End Date Ysabel Cabral MD [address] [place] [address] PCP - [facility] 07/29/22 Chloe Carvajal, MAGAZINE WORKER PCP - [facility] 11/27/23 Teresa Ornelas, SKILLED NURSING FACILITY COUNSELOR-HOUSEKEEPING DEPARTMENT WORKER [address] [facility] [address] [place] [address] Nurse Practitioner Psychiatry 03/14/24 Program Manager Slp Relationship Specialty Start Date End Date Ysabel Cabral MD [address] [facility] [place] [address] PCP - General Family Medicine 07/29/22 Ysabel Cabral MD [address] [facility] [place] [address] PCP - [facility] 02/27/24 Teresa Ornelas SKILLED NURSING FACILITY COUNSELOR-HOUSEKEEPING DEPARTMENT WORKER [address] [place] [address] Nurse Practitioner Psychiatry 03/14/24 Program Manager Slp Relationship Specialty Start Date End Date Ysabel Cabral MD [address] [facility] [place] [address] PCP - General [facility] Medicine 07/29/22 Ysabel Cabral MD [address] [facility] [place] [address] PCP - [facility] 02/27/24 Teresa Ornelas SKILLED NURSING FACILITY COUNSELOR-HOUSEKEEPING DEPARTMENT WORKER [address] [place] [address] Nurse Practitioner Psychiatry 03/14/24 Program Manager Slp Relationship Specialty Start Date End Date Ysabel Cabral MD [address] [facility] [place] [address] PCP - General Family Medicine 07/29/22 Ysabel Cabral MD [address] [place] [address] PCP - [facility] 02/27/24 Teresa Ornelas, SKILLED NURSING FACILITY COUNSELOR-HOUSEKEEPING DEPARTMENT WORKER [address] [place] [address] Nurse Practitioner Psychiatry 03/14/24 Program Manager Slp Relationship Specialty Start Date End Date Ysabel Cabral MD [address] [facility] [place] [address] PCP - General Family Medicine 07/29/22 Ysabel Cabral MD [address] [facility] [place] [address] PCP - [facility] 02/27/24 Teresa Ornelas, SKILLED NURSING FACILITY COUNSELOR-HOUSEKEEPING DEPARTMENT WORKER [address] [address] Nurse Practitioner Psychiatry 03/14/24 Program Manager Slp Relationship Specialty Start Date End Date Ysabel Cabral MD [address] [facility] [place] [address] PCP - General Family [facility] 07/29/22 Ysabel Cabral MD [address] [facility] [place] [address] PCP - [facility] 02/27/24 Teresa Ornelas, SKILLED NURSING FACILITY COUNSELOR-HOUSEKEEPING DEPARTMENT WORKER [address] [address] Nurse Practitioner Psychiatry 03/14/24 FOR RECORDS PERTAINING [...] BE BASED ON THE PRIMARY CLINICAL RECORDS. [facility] provides no warranty or guarantee of the accuracy or completeness of information in this document.
== END 2024-05-13 21:32 | disposition home or self-care (01) ==
LOC: LAB 21:31
PROVIDERS: PCP Family Medicine; Visit Provider Obstetrics & Gynecology
DX: Z34.93 Encounter for supervision of normal pregnancy, unspecified, third trimester (principal)
CPT/HCPCS: 36415; 87081

== ENCOUNTER 2024-05-16 10:43 | Observation (INO) | payer OTHER, SELFPAY ==
[2024-05-16 11:02] VITALS: BP 125/78; PULSE 88
--- OUTSIDE RECORDS SUMMARY | 2024-05-16 11:07 | XMS_ITS | CCD ---
Author Organization [facility] Care Team Providers Care Paramedic Instructor Name Role Phone Vicky Joe Unavailable WEST, DR SANON Admitting Unavailable KARASIK, DR SANON Attending Unavailable KARASIK, DR SANON Consulting Unavailable KARASIK, DR SANON Attending Unavailable KARASIK, DR SANON Consulting Unavailable KARASIK, DR SANON Admitting Unavailable CHLOE CARVAJAL Attending Unavailable CHLOE CARVAJAL Consulting Unavailable CHLOE CARVAJAL Admitting Unavailable Ysabel Cabral MD Primary Care Provider [phone] Ale Zaldivar MD Unavailable Dillon RISK PROFESSIONAL, Chloe R Unavailable Dillon RISK PROFESSIONAL, Chloe R Unavailable Jo Ann-Nosmahendra FACILITIES MAINTENANCE ASSISTANT-DUPLICATION SPECIALISTTeresa Unavailable Ysabel Cabral MD Unavailable RAGHAVENDRA VASQUEZ Attending Unavailable JO ANN-TERESA REINA Attending Unavailab RAGHAVENDRA Bustamante Attending Unavailable RAGHAVENDRA VASQUEZ Attending Unavailable RAGHAVENDRA VASQUEZ Attending Unavailable JO ANN-NOSSETERESA Butterfield Attending Unavailab le JO ANN-NOSTERESA HOLLIS Attending Unavailab EVONNE Hargrove Attending Unavailable TERESA ORNELAS Attending Unavailab YSABEL Don Attending Unavailable CHLOE CARVAJAL Attending Unavailable CHLOE CARVAJAL Referring Unavailable YSABEL CABRAL Attending Unavailable YSABEL CABRAL Attending Unavailable TERESA ORNELAS Attending Unavailab YSABEL Don Attending Unavailable EVONNE CHILDRESS Attending Unavailable YSABEL CABRAL Attending Unavailable TERESA ORNELAS Attending UnavailRAGHAVENDRA Bower Attending Unavailable TERESA ORNELAS Attending Unavailab RAGHAVENDRA Bustamante Attending Unavailable RAGHAVENDRA VASQUEZ Attending Unavailable EMERITA WARREN Attending Unavailable RAGHAVENDRA VASQUEZ Attending Unavailable Allergies Allergy Classification Reported Allergen(s) Allergy Type Date of Onset Reaction(s) Facility (1 source) Aspirin Drug Allergy shortness of breath [facility] Other (20 sources) Diclofenac Drug Allergy 07-05-19 Unknown [facility] Other (20 sources) Ibuprofen Drug Allergy 07-05-19 Unknown [facility] Other (20 sources) Naproxen Drug Allergy 07-05-19 Unknown [facility] Other (20 sources) NSAIDs Drug allergy 07-05-19 Unknown [facility] Other (1 source) Aspirin Drug Allergy 02-26-18 90 [facility] Repository (1 source) cyclobenzaprine Drug Allergy 01-10-20 15 [facility] (1 source) Diclofenac Drug Allergy 01-10-20 15 [facility] (1 source) Ibuprofen Drug Allergy 08-04-19 16 [facility] (1 source) NSAIDs Drug allergy (disorder) 01-02-20 14 [facility] (20 sources) Aluminum aspirin Drug Allergy 07-05-19 23 [facility] (20 sources) Amitriptyline Drug Allergy 03-22-[address] [facility] (20 sources) cyclobenzaprine Drug Allergy 01-24-[address] [facility] (20 sources) Lamotrigine Allergy to substance 07-05-[address] [facility] (20 sources) meloxicam Drug Allergy 07-05-[address] [facility] (20 sources) Sertraline Drug Allergy 01-01-[address] [facility] Medications Current Medications Medication Drug Class(es) [...] tablet by mouth every twenty-four hours Junel .07/25 1.5-30 MG-MCG 1 tablet Orally Once a [...] capsule (20 sources) Proton Pump Inhibitor Start: 05-08-2024 End: 06-07-2024 take 1 capsule by mouth before mealtime omeprazole (PriLOSEC) [address] capsule Indications: Gastroesophageal Reflux Disease , Heartburn TAKE 1 CAPSULE (20 MG) BY MOUTH IN THE MORNING. TAKE BEFORE MEALS. DO NOT CRUSH OR CHEW.. 90 capsule 1 05/08/2024 06/07/2024 Active Start: 01-10-2024 End: 02-09-2024 take 1 capsule [...] polysaccharide iron complex 391 mg oral capsule (15 sources) Start: 04-30-19 25 take 1 capsule by mouth once daily ProFe 391.3 (180 Fe) MG capsule Take 1 capsule by mouth Daily 04/29/2024 Active Start: 03-10-2024 End: 04-09-2024 take 1 capsule by mouth once daily [...] 20 tablet 1 09/24/2023 11/28/2023 Discontinued (Other) [id number] 200 actuat albuterol 0.09 mg/actuat metered dose [...] 12-28-2022 Chronic Other and delivery including normal (18 sources) First trimester ; Translations: [Encounter for [...] [34 weeks gestation of ] 04-29-2024 Episodic Residual codes; unclassified (1 source) Gestation period, 36 weeks; Translations: [36 weeks gestation of ] 05-13-2024 Episodic Unclassified (2 sources) CONTACT W/AND (SUSP) [...] Test Name Value Interpretation Reference Range Facility OB BPP W NON-STRESS on 04-29-2024 [place] [address] Ultrasound Report Signed Patient: TIKI MOELLER MR#: [id number] : 1985 Acct:[id number] Age/Sex: 38 / F ADM Date: 04/29/24 Loc: [facility] 250-[address]: Veda Sarmiento Ordering Physician: Veda Sarmiento Date of Service: 04/29/24 Procedure(s): US OB BPP w non-stress Accession Number(s): [id number] cc: Veda Sarmiento; YSABEL CABRAL [place] [id number] Patient Name: TIKI MOELLER MRN: [facility]:[id number] date: 1985 Sex: F Assigned Patient Location: [facility] Current Patient Location: [facility] Accession/Order Number: [id number] Exam Date: 04/29/2024 16:11 Report Date: 04/29/2024 16:12 At the request of: VEDA SARMIENTO Procedure: US OB BPP w non-stress Biophysical profile. Reason for exam: Advanced maternal age. COMPARISON: BPP 04/22/2024 TECHNIQUE: Transabdominal imaging of the gravid uterus was obtained. FINDINGS: Generator Operator reports the biophysical profile is 8 out of 8. JT is normal at 17.9 cm. heart rate 129bpm. US/US OB BPP w non-stress IMPRESSION: BPP 8 out of 8. Impression dictated by: Alexei Ibrahim Jr., D.O.04/29/2024 4:12 PM Dictation Location: [place] [address] Electronically authenticated by: [id number] Y Date: 04/29/2024 16:12 Dictated By: Alexei Ibrahim M.D. Signed By: 04/29/244 DD/ 11 TD/TT: Global Sales Manager: [facility] Radiology, Radiologist, MD - 04/29/2024 [place] [address] Ultrasound Report Signed Patient: TIKI MOELLER MR#: [id number] : 1985 Acct:[id number] Age/Sex: 38 / F ADM Date: 04/29/24 Loc: [facility] 250- Attending Dr: Veda Sarmiento Ordering Physician: Veda Sarmiento Date of Service: 04/29/24 Procedure(s): US OB BPP w non-stress Accession Number(s): [id number] cc: Veda Sarmiento; YSABEL CABRAL [address] [address] Patient Name: TIKI MOELLER MRN: [facility]:[id number] date: 1985 Sex: F Assigned Patient Location: [facility] Current Patient Location: [facility] Accession/Order Number: [id number] Exam Date: 04/29/2024 16:11 Report Date: 04/29/2024 16:12 At the request of: VEDA SARMIENTO Procedure: US OB BPP w non-stress Biophysical profile. Reason for exam: Advanced maternal age. COMPARISON: BPP 04/22/2024 TECHNIQUE: Transabdominal imaging of the gravid uterus was obtained. FINDINGS: Generator Operator reports the biophysical profile is 8 out of 8. JT is normal at 17.9 cm. heart rate 129bpm. US/US OB BPP w non-stress IMPRESSION: BPP 8 out of 8. Impression dictated by: Alexei Ibrahim Jr., D.O.04/29/2024 4:12 PM Dictation Location[facility] authenticated by: [id number] Y Date: 04/29/2024 16:12 Dictated By: Alexei Ibrahim M.D. Signed By: 04/29/244 DD/ 11 TD/TT: Global Sales Manager: [facility] Radiology Study observation (narrative) [facility] US OB BPP W NON-STRESS Ordered By: Radiologist Radiology on 04-29-2024 [facility] Work Phone: Urinalysis macro (dipstick) panel (U)on 04-29-2024 Bilirubin, UA Negative Negative - 4(70) +++ mg/dL [facility] Blood, UA Negative Negative - 50 Armand/mcL [facility] Clarity, UA Clear [facility] Color, UA Yellow [facility] Glucose, UA Negative Negative - 2000(110) ++++ mg/dL [facility] Interpretation and review of laboratory results Abnormal [facility] Ketones, UA Negative Negative - 160(16) ++++ mg/dL [facility] Leukocytes, UA Trace Negative - 500+++ Doe/mcL [facility] Nitrite, UA Negative Negative - Positive [facility] pH, UA 7 5 - 9 [facility] Protein, UA Positive Negative - 2000(20) ++++ mg/dL [facility] Comment on above: 30mg/dL Spec Grav, UA 1.02 1 - 1.03 [facility] Urobilinogen, UA 1.0 0.2 - 12 mg/dL Critical [facility] hospital US OB BPP W NON-STRESS on 04-22-[address] [address] Ultrasound Report Signed Patient: TIKI MOELLER MR#: [id number] : 1985 Acct:[id number] Age/Sex: 38 / F ADM Date: 04/22/24 Loc: US Attending Dr: Veda Sarmiento Ordering Physician: Veda Sarmiento Date of Service: 04/22/24 Procedure(s): US OB BPP w non-stress Accession Number(s): [id number] cc: Veda Sarmiento; YSABEL CABRAL [place] [address] Patient Name: TIKI MOELLER MRN: [facility]:[id number] date: 1985 Sex: F Assigned Patient Location: [facility] Current Patient Location: Accession/Order Number: [id number] Exam Date: 04/22/2024 23:02 Report Date: 04/22/2024 23:05 At the request of: VEDA SARMIENTO Procedure: US OB BPP w non-stress Biophysical profile. Reason for exam: Advanced maternal age. COMPARISON: BPP 04/15/2024. TECHNIQUE: Transabdominal imaging of the gravid uterus was obtained. FINDINGS: Generator Operator reports the biophysical profile is 8 out of 8. JT is normal at 13.9 cm. heart rate 156 bpm. US/US OB BPP w non-stress IMPRESSION: BPP 8 out of 8. Impression dictated by: Alexei Ibrahim Jr., D.O.04/22/2024 11:05 PM Dictation Location: [place] [address] Electronically authenticated by: [id number] Y Date: 04/22/2024 23:05 Dictated By: Alexei Ibrahim M.D. Signed By: 04/22/242307 DD/ 04 TD/TT: Global Sales Manager: [facility] Radiology, Radiologist, - 04/22/2024 The [place] [id number] Ultrasound Report Signed Patient: TIKI MOELLER MR#: [id number] : 1985 Acct:[id number] Age/Sex: 38 / F ADM Date: 04/22/24 Loc: US Attending Dr: Veda Sarmiento Ordering Physician: Veda Sarmiento Date of Service: 04/22/24 Procedure(s): US OB BPP w non-stress Accession Number(s): [id number] cc: Veda Sarmiento; YSABEL CABRAL [place] [id number] Patient Name: TIKI MOELLER MRN: [id number] date: 1985 Sex: F Assigned Patient Location: [facility] Current Patient Location: Accession/Order Number: [id number] Exam Date: 04/22/2024 23:02 Report Date: 04/22/2024 23:05 At the request of: VEDA SARMIENTO Procedure: US OB BPP w non-stress Biophysical profile. Reason for exam: Advanced maternal age. COMPARISON: BPP 04/15/2024. TECHNIQUE: Transabdominal imaging of the gravid uterus was obtained. FINDINGS: Generator Operator reports the biophysical profile is 8 out of 8. JT is normal at 13.9 cm. heart rate 156 bpm. US/US OB BPP w non-stress IMPRESSION: BPP 8 out of 8. Impression dictated by: Alexei Ibrahim Jr., D.O.04/22/2024 11:05 PM Dictation Location: [place] [address] Electronically authenticated by: [id number] Y Date: 04/22/2024 23:05 Dictated By: Alexei Ibrahim M.D. Signed By: 04/22/242307 DD/ 04 TD/TT: Global Sales Manager: [facility] Radiology Study observation (narrative) [facility] US OB BPP W NON-STRESS Ordered By: Radiologist Radiology on 04-22-2024 [facility] [employer] Work Phone: US OB BPP W NON-STRESS on 04-15-[address] [address] Ultrasound Report Signed Patient: TIKI MOELLER MR#: [id number] : 1985 Acct:[id number] Age/Sex: 38 / F ADM Date: 04/15/24 Loc: [facility] 250-[address]: Raghavendra Vasquez D.O. Ordering Physician: Raghavendra Vasquez D.O. Date of Service: 04/15/24 Procedure(s): US OB BPP w non-stress Accession Number(s): [id number] cc: YSABEL CABRAL ; Raghavendra Vasquez D.O. [place] [address] Patient Name: TIKI MOELLER MRN: [facility]:[id number] date: 1985 Sex: F Assigned Patient Location: [facility] Current Patient Location: [facility] Accession/Order Number: [id number] Exam Date: 04/15/2024 16:26 Report Date: 04/15/2024 16:31 At the request of: RAGHAVENDRA VASQUEZ DO Procedure: US OB BPP w non-stress BIOPHYSICAL PROFILE: CLINICAL INFORMATION: Multigravida of advanced maternal age TECHNIQUE: Multiple ultrasonographic scans of the lower abdomen and pelvis were obtained. The fetus is in the cephalic presentation. The measurements are consistent with a 33 week 3 day gestation. The heart rate zawyirju498 beats per minute. FINDINGS: TONE: 1 or [...] Shelli Mcghee M.D.04/15/2024 4:31 PM Dictation Location: [place] [address] Electronically authenticated by: [id number] Y Date: 04/15/2024 16:31 Dictated By: Shelli Mcghee M.D. Signed By: 04/15/24 163 DD/ 1631 TD/TT: Global Sales Manager: [facility] Radiology, Radiologist, - 04/15/2024 [place] [address] Ultrasound Report Signed Patient: TIKI MOELLER MR#: [id number] : 1985 Acct:[id number] Age/Sex: 38 / F ADM Date: 04/15/24 Loc: [facility] 250-[address]: Raghavendra Vasquez D.O. Ordering Physician: Raghavendra Vasquez D.O. Date of Service: 04/15/24 Procedure(s): US OB BPP w non-stress Accession Number(s): [id number] cc: YSABEL CABRAL ; Raghavendra Vasquez D.O. The [place] [address] Patient Name: TIKI MOELLER MRN: [facility]:[id number] date: 1985 Sex: F Assigned Patient Location: [facility] Current Patient Location: [facility] Accession/Order Number: [id number] Exam Date: 04/15/2024 16:26 Report Date: 04/15/2024 16:31 At the request of: RAGHAVENDRA VASQUEZ DO Procedure: US OB BPP w non-stress BIOPHYSICAL PROFILE: CLINICAL INFORMATION: Multigravida of advanced maternal age TECHNIQUE: Multiple ultrasonographic scans of the lower abdomen and pelvis were obtained. The fetus is in the cephalic presentation. The measurements are consistent with a 33 week 3 day gestation. The heart rate [id number] beats per minute. FINDINGS: TONE: 1 or [...] Shelli Mcghee M.D.04/15/2024 4:31 PM Dictation Location: [place] [address] Electronically authenticated by: [id number] Y Date: 04/15/2024 16:31 Dictated By: Shelli Mcghee M.D. Signed By: 04/15/24 163 DD/ 1631 TD/TT: Global Sales Manager: [facility] Radiology Study observation (narrative) [facility] US OB BPP W NON-STRESS Ordered By: Radiologist Radiology on 04-15-2024 [facility] Work Phone: US OB GROWTHon 04-15-2024 [place] [address] Ultrasound Report Signed Patient: TIKI MOELLER MR#: [id number] : 1985 Acct:[id number] Age/Sex: 38 / F ADM Date: 04/15/24 Loc: [place] [address]: Raghavendra Vasquez D.O. Ordering Physician: Raghavendra Vasquez D.O. Date of Service: 04/15/24 Procedure(s): US OB growth Accession Number(s): [id number] cc: YSABEL CABRAL Corey D.O. [place] [id number] Patient Name: TIKI MOELLER MRN: [facility]:[id number] date: 1985 Sex: F Assigned Patient Location: [facility] Current Patient Location: [facility] Accession/Order Number: [id number] Exam Date: 04/15/2024 16:31 Report Date: 04/15/2024 [...] Shelli Mcghee M.D.04/15/2024 4:37 PM Dictation Location: [place] [address] Electronically authenticated by: [id number] Y Date: 04/15/2024 16:37 Dictated By: Shelli Mcghee M.D. Signed By: 04/15/24 1640 DD/ 1637 TD/TT: Global Sales Manager: [facility] Radiology, Radiologist, - 04/15/2024 [place] [address] Ultrasound Report Signed Patient: TIKI MOELLER MR#: [id number] : 1985 Acct:[id number] Age/Sex: 38 / F ADM Date: 04/15/24 Loc: [place] [address]: Raghavendra Vasquez D.O. Ordering Physician: Raghavendra Vasquez D.O. Date of Service: 04/15/24 Procedure(s): US OB growth Accession Number(s): [id number] cc: YSABEL CABRAL ; Raghavendra Vasquez D.O. The [place] [address] Patient Name: TIKI MOELLER MRN: [facility]:[id number] date: 1985 Sex: F Assigned Patient Location: [facility] Current Patient Location: [facility] Accession/Order Number: [id number] Exam Date: 04/15/2024 16:31 Report Date: 04/15/2024 [...] 4 lbs. 12 oz. +/- 11 ounces. US/ OB growth IMPRESSION: SINGLE LIVE INTRAUTERINE GESTATION WITH ULTRASOUND AGE OF 33 WEEKS 3 DAYS. NORMAL INTERVAL GROWTH. Impression dictated by: Shelli Mcghee M.D.04/15/2024 4:37 PM Dictation Location: [employer] Electronically authenticated by: [id number] Y Date: 04/15/2024 16:37 Dictated By: Shelli Mcghee M.D. Signed By: 04/15/24 1640 DD/ 1637 TD/TT: Global Sales Manager: [facility] Radiology Study observation (narrative) [facility] OB GROWTHOrdered By: Liang ologry Radiology on 04-15-2024 [facility] Work Phone: Urinalysis macro (dipstick) panel (U)on 04-08-2024 Bilirubin, UA Negative Negative - 4(70) +++ mg/dL [facility] Blood, UA Negative Negative - 50 Armand/mcL [facility] Clarity, UA Clear [facility] Color, UA Yellow [facility] Glucose, UA Negative Negative - 2000(110) ++++ mg/dL [facility] Interpretation and review of laboratory results Abnormal [facility] Ketones, UA Negative Negative - 160(16) ++++ mg/dL [facility] Leukocytes, UA Negative Negative - 500+++ Doe/mcL [facility] Nitrite, UA Negative Negative - Positive [facility] pH, UA 7 5 - 9 [facility] Protein, UA Trace Negative - 2000(20) ++++ mg/dL [facility] Spec Grav, UA 1.025 1 - 1.03 [facility] Urobilinogen, UA 1.0 0.2 - 12 mg/dL [facility] US OB GROWTHon 03-25-2024 [place] [address] Ultrasound Report Signed Patient: TIKI MOELLER MR#: [id number] : 1985 Acct:[id number] Age/Sex: 38 / F ADM Date: 03/25/24 Loc: US Attending Dr: Raghavendra Vasquez D.O. Ordering Physician: Raghavendra Vasquez D.O. Date of Service: 03/25/24 Procedure(s): US OB growth Accession Number(s): [id number] cc: YSABEL CABRAL ; Raghavendra Vasquez D.O. [place] [address] Patient Name: TIKI MOELLER MRN: [id number] date: 1985 Sex: F Assigned Patient Location: Current Patient Location: US Accession/Order Number: [id number] Exam Date: 03/25/2024 11:02 Report Date: 03/25/2024 [...] Signed By: 03/25/24 1150 DD/ 1147 TD/TT: Global Sales Manager: [facility] Radiology, Radiologist, MD - 03/25/2024 [place] [address] Ultrasound Report Signed Patient: TIKI MOELLER MR#: [id number] : 1985 Acct:[id number] Age/Sex: 38 / F ADM Date: 03/25/24 Loc: US Attending Dr: Raghavendra Vasquez D.O. Ordering Physician: Raghavendra Vasquez D.O. Date of Service: 03/25/24 Procedure(s): US OB growth Accession Number(s): [id number] cc: YSABEL CABRAL ; Raghavendra Vasquez D.O. The [place] [address] Patient Name: TIKI MOELLER MRN: [facility]:[id number] date: 1985 Sex: F Assigned Patient Location: Current Patient Location: US Accession/Order Number: [id number] Exam Date: 03/25/2024 11:02 Report Date: 03/25/2024 [...] Signed By: 03/25/24 1150 DD/ 1147 TD/TT: Global Sales Manager: [facility] Radiology Study observation (narrative) [facility] US OB GROWTHOrdered By: Liang ologry Radiology on 03-25-2024 [facility] Work Phone: Urinalysis macro (dipstick) panel (U)on 03-25-2024 Bilirubin, UA Positive Negative - 4(70) +++ mg/dL [facility] Blood, UA Negative Negative - 50 Armand/mcL [facility] Clarity, UA Clear [facility] Color, UA Yellow [facility] Glucose, UA Negative Negative - 1999(110) ++++ mg/dL [facility] Interpretation and review of laboratory results Abnormal [facility] Ketones, UA Positive Negative - 160(16) ++++ mg/dL [facility] Leukocytes, UA Negative Negative - 500+++ Doe/mcL [facility] Nitrite, UA Positive Negative - Positive [facility] pH, UA 6.5 5 - 9 [facility] Protein, UA Positive Negative - 1999(20) ++++ mg/dL [facility] Spec Grav, UA 1.025 1 - 1.03 [facility] Urobilinogen, UA 1.0 0.2 - 12 mg/dL [facility] Urinalysis macro (dipstick) panel (U)on 03-11-2024 Bilirubin, UA Negative Negative - 4(70) +++ mg/dL [facility] Blood, UA Negative Negative - 50 Armand/mcL [facility] Clarity, UA Clear [facility] Color, UA Yellow [facility] Glucose, UA Negative Negative - 1999(110) ++++ mg/dL [facility] Interpretation and review of laboratory results Abnormal [facility] Ketones, UA Negative Negative - 160(16) ++++ mg/dL [facility] Leukocytes, UA Negative Negative - 500+++ Doe/mcL [facility] Nitrite, UA Negative Negative - Positive [facility] pH, UA 7 5 - 9 [facility] Protein, UA Positive Negative - 2000(20) ++++ mg/dL [facility] Comment on above: 30 Spec Grav, UA 1.025 1 - 1.03 [facility] Urobilinogen, UA 0.2 0.2 - 12 mg/dL [facility] ALL CBC WITH AUTO DIFFon BASOPHILS ABSOLUTE AUTO 0 [facility] Basophils/100 WBC (Bld) 0.2 % 0.2 - 2.0 % [facility] Eosinophils/100 WBC (Bld) 0.6 % Low 0.9 - 7.0 % [facility] Erythrocyte distribution width (RBC) [Ratio] 13 % 11.0 - 15.0 % [facility] Hematocrit (Bld) [Volume fraction] 32.2 % Low 36.0 - 48.0 % [facility] Hemoglobin (Bld) [Mass/Vol] 10.3 g/dL Low 12.0 - 16.0 g/dL [facility] IMMATURE GRANULOCYTES ABS AUTO 0.[address] [facility] Immature granulocytes/100 WBC (Bld) 0.6 % High 0.0 - 0.5 % [facility] Interpretation and review of laboratory results Abnormal [facility] LYMPHOCYTES ABSOLUTE AUTO 1.8 [facility] Lymphocytes/100 WBC (Bld) 19.1 % Low 20.5 - 60.0 % [facility] MCH (RBC) [Entitic mass] 25.9 pg Low 26.7 - 34.[address] [facility] MCHC (RBC) [Mass/Vol] 32 g/dL 29.9 - 35.2 g/dL [facility] MCV (RBC) [Entitic vol] 81.1 fL 81.0 - 99.[address] [facility] MONOCYTES ABSOLUTE AUTO 0.5 [facility] Monocytes/100 WBC (Bld) 5.5 % 1.7 - 12.0 % [facility] NEUTROPHILS ABSOLUTE AUTO [address] [facility] Neutrophils/100 WBC (Bld) 74 % 43.0 - 75.0 % [facility] Platelet mean volume (Bld) [Entitic vol] 10.7 fL 9.5 - 13.5 fL [facility] EO # 0.1 [facility] PLT 238 [facility] RBC 3.97 Low [facility] WBC 9.4 [facility] UA (CLEAN/CATCH) DUPLICATION SPECIALIST/LA RO IF IND.on 03-07-20[address] UR[address] Negative NEGATIVE [facility] BLOOD URINE Negative NEGATIVE [facility] Clarity (U) CLEAR CLEAR [facility] Color (U) YELLOW YELLOW [facility] GLUCOSE URINE UA Negative NEGATIVE mg/dL [facility] Interpretation and review of laboratory results Abnormal [facility] Ketones Ql (U) TRACE Abnormal NEGATIVE mg/dL [facility] Leukocyte esterase Test strip Ql (U) Negative NEGATIVE [facility] NITRITE URINE Negative NEGATIVE [facility] pH (U) 7.5 [pH] 5.0 - 9.0 [facility] PROTEIN URINE TRACE NEG/TRACE mg/dL [facility] SPECIFIC GRAVITY URINE 1.025 1.005 - 1.025 [facility] URINE MICROSCOPIC INDICATED NO [facility] UROBILINOGEN URINE 1.0 EU/dL 0.2 - 1.0 EU/dL [facility] Urinalysis macro (dipstick) panel (U)on 02-11-2024 Bilirubin, UA Negative Negative - 4(70) +++ mg/dL [facility] Blood, UA Negative Negative - 50 Armand/mcL [facility] Clarity, UA Clear [facility] Color, UA Yellow [facility] Glucose, UA Negative Negative - 1999(110) ++++ mg/dL [facility] Interpretation and review of laboratory results Abnormal [facility] Ketones, UA Negative Negative - 160(16) ++++ mg/dL [facility] Leukocytes, UA Negative Negative - 500+++ Doe/mcL [facility] Nitrite, UA Negative Negative - Positive [facility] pH, UA 7.5 5 - 9 [facility] Protein, UA Trace Negative - 1999(20) ++++ mg/dL [facility] Spec Grav, UA 1.015 1 - 1.03 [facility] Urobilinogen, UA 0.2 0.2 - 12 mg/dL [facility] IGP,APTIMA HPV,AGE GDLNon AGE GDLN ACOG TESTING Note . [facility] Comment on above: TESTS RESULT FLAG UN ITS REF RANGE LAB Clinician Provided Cytology Information Source.............Cervix Other.............. No. of containers..01 ThinPrep Vial Age Brianneo AMNAOG Beverly... 32 FLAG LEGEND: L-Low Normal,H-High Normal,LL-Alert Low,HH-Alert High <-Panic Low,>-Panic High,A-Abnormal,AA-Critical Abnormal Performed at: 01 =G [address] [address] Judith Ventura MD, HPV APTIMA Negative Negative [facility] Comment on above: This nucleic acid am plification test detects fourteen high- risk HPV types (16,18,31,33,35,39,45,51,52,56,58,59,66,68) without differentiation. Performed at: =[address] [id number] Bagging Salvager: Judith Ventura MD, Phone: [phone] Performed at: - [address] [id number] Bagging Salvager: Judith Ventura MD, Phone: [phone] IGP, APTIMA HPV, RFX 16/18,[address] [facility] Comment on above: TESTS RESULT FLAG UN ITS REF RANGE LAB DIAGNOSIS: 02 NEGATIVE FOR INTRAEPITHELIAL LESION OR MALIGNANCY. Specimen adequacy: 02 Satisfactory for evaluation. Endocervical and/or squamous metaplastic cells (endocervical component) are present. Performed by: 02 Ashli Frank Relationship Counselor (ASCP) . 02 Note: Note 02 The [...] <-Panic Low,>-Panic High,A-Abnormal,AA-Critical Abnormal Performed at: [address] [place] [address] Judith Ventura MD, SPATULA-ALONE CERVIX [facility] RECURRENT VAGINITIS (HTRX)on 01-11-[address] [facility] ATOPOBIUM VAGINAE Not detected [facility] BVAB 2,3 (BACTERIAL VAGINOSIS ASSOCIATED BACTERIA 2, 3); MOBILUNCUS SPP 0 [facility] BVAB 2,3 (BACTERIAL VAGINOSIS ASSOCIATED BACTERIA 2, 3); MOBILUNCUS SPP Not detected [facility] LOC ALBICANS, PARAPSILOSIS, TROPICALIS 0 [facility] LOC ALBICANS, PARAPSILOSIS, TROPICALIS Not detected [facility] LOC GLABRATA [address] [facility] LOC GLABRATA Not detected [facility] LOC KRUSEI [address] [facility] LOC KRUSEI Not detected [facility] CHLAMYDIA TRACHOMATIS 0 [facility] CHLAMYDIA TRACHOMATIS Not detected [facility] GARDNERELLA VAGINALIS [address] [facility] GARDNERELLA VAGINALIS Not detected [facility] MEGASPHAERA (TYPES 1, 2) 0 [facility] MEGASPHAERA (TYPES 1, 2) Not detected [facility] MYCOPLASMA GENITALIUM 0 [facility] MYCOPLASMA GENITALIUM Not detected [facility] NEISSERIA GONORRHOEAE 0 [facility] NEISSERIA GONORRHOEAE Not detected [facility] TRICHOMONAS VAGINALIS [address] [facility] TRICHOMONAS VAGINALIS Not detected [facility] Urinalysis macro (dipstick) panel (U)on 01-10-2024 Bilirubin, UA Negative Negative - 4(70) +++ mg/dL [facility] Blood, UA Negative Negative - 50 Armand/mcL [facility] Clarity, UA Clear [facility] Color, UA Yellow [facility] Glucose, UA Negative Negative - 1999(110) ++++ mg/dL [facility] Interpretation and review of laboratory results Abnormal [facility] Ketones, UA Positive Negative - 160(16) ++++ mg/dL [facility] Leukocytes, UA Negative Negative - 500+++ Doe/mcL [facility] Nitrite, UA Negative Negative - Positive [facility] pH, UA 7 5 - 9 [facility] Protein, UA Negative Negative - 1999(20) ++++ mg/dL [facility] Spec Grav, UA 1.015 1 - 1.03 [facility] Urobilinogen, UA 1.0 0.2 - 12 mg/dL [facility] ALL CBC WITH AUTO DIFFon BASOPHILS ABSOLUTE AUTO 0.0 [facility] Basophils/100 WBC (Bld) 0.2 % 0.2 - 2.0 % [facility] Eosinophils/100 WBC (Bld) 2.3 % 0.9 - 7.0 % [facility] Erythrocyte distribution width (RBC) [Ratio] 12.3 % 11.0 - 15.0 % [facility] Hematocrit (Bld) [Volume fraction] 37.1 % 36.0 - 48.0 % [facility] Hemoglobin (Bld) [Mass/Vol] 12.3 g/dL 12.0 - 16.0 g/dL [facility] IMMATURE GRANULOCYTES ABS AUTO 0.[address] [facility] Immature granulocytes/100 WBC (Bld) 0.4 % 0.0 - 0.5 % [facility] Interpretation and review of laboratory results Abnormal [facility] LYMPHOCYTES ABSOLUTE AUTO 2.7 [facility] Lymphocytes/100 WBC (Bld) 28.4 % 20.5 - 60.0 % [facility] MCH (RBC) [Entitic mass] 28.0 pg 26.7 - 34.[address] [facility] MCHC (RBC) [Mass/Vol] 33.2 g/dL 29.9 - 35.2 g/dL [facility] MCV (RBC) [Entitic vol] 84.3 fL 81.0 - 99.[address] [facility] MONOCYTES ABSOLUTE AUTO 0.5 [facility] Monocytes/100 WBC (Bld) 5.0 % 1.7 - 12.0 % [facility] NEUTROPHILS ABSOLUTE AUTO 6.0 [facility] Neutrophils/100 WBC (Bld) 63.7 % 43.0 - 75.0 % [facility] Platelet mean volume (Bld) [Entitic vol] 10.4 fL 9.5 - 13.[address] [facility] TBH EO # 0.2 [facility] PLT 253 [facility] RBC 4.40 [facility] WBC 9.4 [facility] Urinalysis macro (dipstick) panel (U)on 11-28-2023 Bilirubin, UA Negative Negative - 4(70) +++ mg/dL [facility] Blood, UA Negative Negative - 50 Armand/mcL [facility] Clarity, UA Clear [facility] Color, UA Yellow [facility] Glucose, UA Negative Negative - 1999(110) ++++ mg/dL [facility] Interpretation and review of laboratory results Normal [facility] Ketones, UA Negative Negative - 160(16) ++++ mg/dL [facility] Leukocytes, UA Negative Negative - 500+++ Doe/mcL [facility] Nitrite, UA Negative Negative - Positive [facility] pH, UA 7.0 5 - 9 [facility] Protein, UA Negative Negative - 1999(20) ++++ mg/dL [facility] Spec Grav, UA 1.025 1 - 1.03 [facility] Urobilinogen, UA 1.0 0.2 - 12 mg/dL [facility] URINE CULTURE, ROUTINEon Bacteria identified Cx Nom (U) Urine Culture, Routine [facility] Bacteria identified Cx Nom (U) Culture shows less than 10,000 colony forming units of bacteria per [facility] Bacteria identified Cx Nom (U) milliliter of urine. This colony count is not generally considered [facility] Bacteria identified Cx Nom (U) to be clinically significant. [facility] Bacteria identified Cx Nom (U) Performed at: - [facility] Bacteria identified Cx Nom (U) [address] [place] [id number] [facility] Bacteria identified Cx Nom (U) Bagging Salvager: Michael Berry PhD, Phone: [phone] [facility] HCG ( test) Ql (U)o n 11-01-2023 Interpretation and review of laboratory results Abnormal [facility] Preg Test, Ur Positive [facility] Urinalysis macro (dipstick) panel (U)on 11-01-2023 Bilirubin, UA Negative Negative - 4(70) +++ mg/dL [facility] Blood, UA Negative Negative - 50 Armand/mcL [facility] Clarity, UA Clear [facility] Color, UA Yellow [facility] Glucose, UA Negative Negative - 1999(110) ++++ mg/dL [facility] Interpretation and review of laboratory results Normal [facility] Ketones, UA Negative Negative - 160(16) ++++ mg/dL [facility] Leukocytes, UA Negative Negative - 500+++ Doe/mcL [facility] Nitrite, UA Negative Negative - Positive [facility] pH, UA 6.0 5 - 9 [facility] Protein, UA Negative Negative - 1999(20) ++++ mg/dL [facility] Spec Grav, UA 1.020 1 - 1.03 [facility] Urobilinogen, UA 0.2 0.2 - 12 mg/dL [facility] XR CERVICAL SPINE AP/LAT/FLE X/EXT/OBLIQUESon 08-16-2023 XR [...] [Mass/Vol] 8.9 mg/dL Normal (8.6 - 10.6) [facility] Comment on above: Performed By: #### C BC/2A, ESRCRP, CCP, HBC-M, HBSAG, HCV, CA, MG, RHF, URCA #### [facility] [address] [facility], [id number] CBC, ALB, ALT, AST, ALK AND CREAon 12-18-2022 Albumin [Mass/Vol] 5.0 g/dL Normal (3.5 - 5.0) [facility] Comment on above: Order Comment: FACIL ITY: [facility] [phone] Performed By: #### C BC/2A, ESRCRP, CCP, HBC-M, HBSAG, HCV, CA, MG, RHF, URCA #### [facility] [address] [facility], [id number] ALK PHOS 60 U/L Normal (38 - 126) [facility] Comment on above: Order Comment: FACIL ITY: [facility] [id number] Performed By: #### C BC/2A, ESRCRP, CCP, HBC-M, HBSAG, HCV, CA, MG, RHF, URCA #### [facility] [address] [facility], [id number] ALT [Catalytic activity/Vol] 34 U/L Normal (1 - 35) [facility] Comment on above: Order Comment: FACIL ITY: [facility] [id number] Performed By: #### C BC/2A, ESRCRP, CCP, HBC-M, HBSAG, HCV, CA, MG, RHF, URCA #### [facility] [address] [facility], [id number] AST [Catalytic activity/Vol] 34 U/L Normal (15 - 46) [facility] Comment on above: Order Comment: FACIL ITY: [facility] [id number] Performed By: #### C BC/2A, ESRCRP, CCP, HBC-M, HBSAG, HCV, CA, MG, RHF, URCA #### [facility] [address] [facility], [id number] Creatinine [Mass/Vol] 0.61 mg/dL Normal (0.52 - 1.04) [facility] Comment on above: Order Comment: FACIL ITY: [facility] [id number] Performed By: #### C BC/2A, ESRCRP, CCP, HBC-M, HBSAG, HCV, CA, MG, RHF, URCA #### [facility] [address] [facility], [id number] GFR- AMER 135.1 ML/M1.7 Normal (60.0 - 140.1) [facility] Comment on above: Order Comment: FACIL ITY: [facility] [phone] Performed By: #### C BC/2A, ESRCRP, CCP, HBC-M, HBSAG, HCV, CA, MG, RHF, URCA #### [facility] [address] [facility], [id number] GFR-NON AFRIC-AMER 111.6 ML/M1.7 Normal (60.0 - 115.8) [facility] Comment on above: Order Comment: FACIL ITY: [facility] [id number] Performed By: #### C BC/2A, ESRCRP, CCP, HBC-M, HBSAG, HCV, CA, MG, RHF, URCA #### [facility] [address] [facility], [id number] Hematocrit (Bld) [Volume fraction] 41.5 % Normal (37.0 - 47.0) [facility] Comment on above: Order Comment: FACIL ITY: [facility] [id number] Performed By: #### C BC/2A, ESRCRP, CCP, HBC-M, HBSAG, HCV, CA, MG, RHF, URCA #### [facility] [address] [facility], [id number] Hemoglobin (Bld) [Mass/Vol] 13.5 g/dL Normal (12.0 - 16.0) [facility] Comment on above: Order Comment: FACIL ITY: [facility] [phone] Performed By: #### C BC/2A, ESRCRP, CCP, HBC-M, HBSAG, HCV, CA, MG, RHF, URCA #### [facility] [address] [facility], [id number] MCH (RBC) [Entitic mass] 28.7 pg Normal (27.0 - 33.0) [facility] Comment on above: Order Comment: FACIL ITY: [facility] [id number] Performed By: #### C BC/2A, ESRCRP, CCP, HBC-M, HBSAG, HCV, CA, MG, RHF, URCA #### [facility] [address] [facility], [id number] MCHC (RBC) [Mass/Vol] 32.5 g/dL Normal (30.0 - 37.0) [facility] Comment on above: Order Comment: FACIL ITY: [facility] [id number] Performed By: #### C BC/2A, ESRCRP, CCP, HBC-M, HBSAG, HCV, CA, MG, RHF, URCA #### [facility] [address] [facility], [id number] MCV (RBC) [Entitic vol] 88.1 fL Normal (81.0 - 99.0) [facility] Comment on above: Order Comment: FACIL ITY: [facility] [id number] Performed By: #### C BC/2A, ESRCRP, CCP, HBC-M, HBSAG, HCV, CA, MG, RHF, URCA #### [facility] [address] [facility], [address] PLT 282 x10^3ul Normal (130 - 400) [facility] Comment on above: Order Comment: FACIL ITY: [facility] [phone] Performed By: #### C BC/2A, ESRCRP, CCP, HBC-M, HBSAG, HCV, CA, MG, RHF, URCA #### [facility] [address] [facility], [id number] RBC 4.71 x10^6ul Normal (4.20 - 5.40) [facility] Comment on above: Order Comment: FACIL ITY: [facility] [id number] Performed By: #### C BC/2A, ESRCRP, CCP, HBC-M, HBSAG, HCV, CA, MG, RHF, URCA #### [facility] [address] [facility], [address] WBC 6.47 x10^3ul Normal (3.80 - 10.60) [facility] Comment on above: Order Comment: FACIL ITY: [facility] [id number] Performed By: #### C BC/2A, ESRCRP, CCP, HBC-M, HBSAG, HCV, CA, MG, RHF, URCA #### [facility] [address] [facility], [address] HEP B CORE AB, IGMon 023 HEPATITIS B CORE ANTIBODY, IGM Negative Normal (NEG - NEG) [facility] Comment on above: Performed By: #### C BC/2A, ESRCRP, CCP, HBC-M, HBSAG, HCV, CA, MG, RHF, URCA #### [facility] [address] [facility], [address] HEP B HERACLIO AGon 12-18-2022 HEP B HERACLIO AG Negative Normal (NEG - NEG) [facility] Comment on above: Performed By: #### C BC/2A, ESRCRP, CCP, HBC-M, HBSAG, HCV, CA, MG, RHF, URCA #### [facility] [address] [facility], [address] HEP C ANTIBODYon 12-18-2022 HEPATITIS C ANTIBODY Negative Normal (NEG - NEG) [facility] Comment on above: Performed By: #### C BC/2A, ESRCRP, CCP, HBC-M, HBSAG, HCV, CA, MG, RHF, URCA #### [facility] [address] [facility], [id number] MAGNESIUMon 12-18-2022 Magnesium [Mass/Vol] 2.0 mg/dL Normal (1.6 - 2.3) [facility] Comment on above: Performed By: #### C BC/2A, ESRCRP, CCP, HBC-M, HBSAG, HCV, CA, MG, RHF, URCA #### [facility] [address] [facility], [id number] RF FACTORon 12-18-2022 RF FACTOR <9 Normal (0 - 12) [facility] Comment on above: Result Comment: RF F ACTOR = LESS THAN 9 IU/ML RF FACTOR MIN. DETECTION = 9 IU/ML. Performed By: #### C BC/2A, ESRCRP, CCP, HBC-M, HBSAG, HCV, CA, MG, RHF, URCA #### [facility] [address] [facility], [address] SED RATE - CRPon 12-18-2022 CRP EXTENDED RANGE 1.40 MG/L Normal (0.00 - 3.20) [facility] Comment on above: Performed By: #### C BC/2A, ESRCRP, CCP, HBC-M, HBSAG, HCV, CA, MG, RHF, URCA #### [facility] [address] [facility], [id number] SED RATE WEST. 5 MM/HR Normal (0 - 25) [facility] Comment on above: Performed By: #### C BC/2A, ESRCRP, CCP, HBC-M, HBSAG, HCV, CA, MG, RHF, URCA #### [facility] [address] [facility], [address] URIC ACIDon 12-18-2022 Urate [Mass/Vol] 4.2 mg/dL Normal (2.5 - 6.2) [facility] Comment on above: Performed By: #### C BC/2A, ESRCRP, CCP, HBC-M, HBSAG, HCV, CA, MG, RHF, URCA #### [facility] [address] [facility], [address] PAP ACOG PANEL 2: 30 to 65on 11-16-2021 . . Normal [facility] Comment on above: Result Comment: Perf ormed at: WB Performed By: #### 4 [id number] #### [facility] [address] [place] [address] Dr. Sierra Almonte Age Gdln ACOG Testing -67 Normal [facility] Comment on above: Performed By: #### [id number] #### [facility] [address] [place] [address] Dr. Sierra Almonte DIAGNOSIS: Comment Normal [facility] Comment on above: Result Comment: NEGA TIVE FOR INTRAEPITHELIAL LESION OR MALIGNANCY. Performed at: WB Performed By: #### 4 [id number] #### [facility] [address] [place] [address] Dr. Sierra Almonte HPV Aptima Negative Normal Negative [facility] Comment on above: Result Comment: This nucleic acid amplification test detects fourteen high-risk HPV types (16,18,31,33,35,39,45,51,52,56,58,59,66,68) without differentiation. Performed at: =G Performed By: #### 4 [id number] #### [facility] [address] [place] [address] Dr. Sierra Almonte Methodology: Comment Normal [facility] Comment on above: Result Comment: This liquid based ThinPrep(R) pap test was screened with the use of an image guided system. Performed at: WB Performed By: #### 4 [id number] #### [facility] [address] [place] [address] Dr. Sierra Almonte Note: Comment Normal [facility] Comment on above: Result Comment: The Pap smear is a screening test designed to aid in the detection of premalignant and malignant conditions of the uterine cervix. It is not a diagnostic procedure and should not be used as the sole means of detecting cervical cancer. Both false-positive and false-negative reports do occur. . Performed at: WB Performed By: #### 4 [id number] #### [facility] [address] [place] [address] Dr. Sierra Almonte Performed by: Comment Normal [facility] Comment on above: Result Comment: Alison Nava, Relationship Counselor (ASCP) Performed at: WB Performed By: #### 4 [id number] #### [facility] [address] [place] [address] Dr. Sierra Almonte Specimen adequacy: Comment Normal [facility] Comment on above: Result Comment: Sati sfactory for evaluation. Endocervical and/or squamous metaplastic cells (endocervical component) are present. Performed at: WB Performed By: #### [id number] #### [facility] [address] [place] [address] Dr. Sierra Almonte US Thyroidon 07-14-2021 US [...] by Alexei Smith on 07/14/2021 1000 Normal [facility] Complete Blood Count with Au to Diffon 07-12-2021 Basophils (Bld) [#/Vol] 0.02 10*3/uL Normal 0.00-0.20 [facility] Comment on above: Performed By: #### C BCAD, RF, VITD, ESR, TSH reflex FT4, CMP, FT4 #### [facility] [address] [place], [place] [id number] Basophils/100 WBC (Bld) 0.3 % Normal [facility] Comment on above: Performed By: #### C BCAD, RF, VITD, ESR, TSH reflex FT4, CMP, FT4 #### [facility] [address] [place], [place] [id number] Eosinophils (Bld) [#/Vol] 0.08 10*3/uL Normal 0.02-0.50 [facility] Comment on above: Performed By: #### C BCAD, RF, VITD, ESR, TSH reflex FT4, CMP, FT4 #### [facility] [address] [place], [place] [id number] Eosinophils/100 WBC (Bld) 1.2 % Normal [facility] Comment on above: Performed By: #### C BCAD, RF, VITD, ESR, TSH reflex FT4, CMP, FT4 #### [facility] [address] [place], [place] [id number] Erythrocyte distribution width (RBC) [Ratio] 13.8 % Normal 11.0-15.0 [facility] Comment on above: Performed By: #### C BCAD, RF, VITD, ESR, TSH reflex FT4, CMP, FT4 #### [facility] [address] [place], [place] [id number] Hematocrit (Bld) [Volume fraction] 39.6 % Normal 35.0-47.0 [facility] Comment on above: Performed By: #### C BCAD, RF, VITD, ESR, TSH reflex FT4, CMP, FT4 #### [facility] [address], [place] [id number] Hemoglobin (Bld) [Mass/Vol] 12.9 g/dL Normal 11.6-15.5 [facility] Comment on above: Performed By: #### C BCAD, RF, VITD, ESR, TSH reflex FT4, CMP, FT4 #### [facility] [address] [place], [place] [id number] Lymphocytes (Bld) [#/Vol] 1.3 10*3/uL Normal 0.9-3.9 [facility] Comment on above: Performed By: #### C BCAD, RF, VITD, ESR, TSH reflex FT4, CMP, FT4 #### [facility] [address] [place], [place] [id number] Lymphocytes/100 WBC (Bld) 20.3 % Normal [facility] Comment on above: Performed By: #### C BCAD, RF, VITD, ESR, TSH reflex FT4, CMP, FT4 #### [facility] [address] [place], [place] [id number] MCH (RBC) [Entitic mass] 28.3 pg Normal 27.0-33.0 [facility] Comment on above: Performed By: #### C BCAD, RF, VITD, ESR, TSH reflex FT4, CMP, FT4 #### [facility] [address] [place], [place] [id number] MCHC (RBC) [Mass/Vol] 32.6 g/dL Normal 32.0-36.0 [facility] Comment on above: Performed By: #### C BCAD, RF, VITD, ESR, TSH reflex FT4, CMP, FT4 #### [facility] [address] [place], [place] [id number] MCV (RBC) [Entitic vol] 87 fL Normal 80-100 [facility] Comment on above: Performed By: #### C BCAD, RF, VITD, ESR, TSH reflex FT4, CMP, FT4 #### [facility] [address] [place], [place] [id number] Monocytes (Bld) [#/Vol] 0.4 10*3/uL Normal 0.2-0.9 [facility] Comment on above: Performed By: #### C BCAD, RF, VITD, ESR, TSH reflex FT4, CMP, FT4 #### [facility] [address] [place], [place] [id number] Monocytes/100 WBC (Bld) 5.8 % Normal [facility] Comment on above: Performed By: #### C BCAD, RF, VITD, ESR, TSH reflex FT4, CMP, FT4 #### [facility] [address] [place], [place] [id number] Neutrophils (Bld) [#/Vol] 4.7 10*3/uL Normal 1.5-7.8 [facility] Comment on above: Performed By: #### C BCAD, RF, VITD, ESR, TSH reflex FT4, CMP, FT4 #### [facility] [address] [place], [place] [id number] Neutrophils/100 WBC (Bld) 72.1 % Normal [facility] Comment on above: Performed By: #### C BCAD, RF, VITD, ESR, TSH reflex FT4, CMP, FT4 #### [facility] [address] [place], [place] [id number] Platelet mean volume (Bld) [Entitic vol] 11.00 fL Normal 7.50-12.50 [facility] Comment on above: Performed By: #### C BCAD, RF, VITD, ESR, TSH reflex FT4, CMP, FT4 #### [facility] [address] [place], [place] [id number] Platelets (Bld) [#/Vol] 271 10*3/uL Normal 140-400 [facility] Comment on above: Performed By: #### C BCAD, RF, VITD, ESR, TSH reflex FT4, CMP, FT4 #### [facility] [address] [place], [place] [id number] RBC (Bld) [#/Vol] 4.56 10*6/uL Normal 3.90-5.20 [facility] [employer] Comment on above: Performed By: #### C BCAD, RF, VITD, ESR, TSH reflex FT4, CMP, FT4 #### [facility] [address] [place], [place] [id number] RDW-SD 43.5 fL Normal 37.0-50.0 [facility] Comment on above: Performed By: #### C BCAD, RF, VITD, ESR, TSH reflex FT4, CMP, FT4 #### [facility] [address] [place], [place] [id number] WBC (Bld) [#/Vol] 6.5 10*3/uL Normal 3.8-11.0 [facility] [employer] Comment on above: Performed By: #### C BCAD, RF, VITD, ESR, TSH reflex FT4, CMP, FT4 #### [facility] [address] [place], [place] [id number] Comprehensive Metabolic Pane [facility] 07-12-2021 Albumin [Mass/Vol] 4.9 g/dL Normal 3.6-5.1 [facility] [employer] Comment on above: Performed By: #### C BCAD, RF, VITD, ESR, TSH reflex FT4, CMP, FT4 #### [facility] [address] [place], [place] [id number] Albumin/Globulin [Mass ratio] 2.2 {ratio} Normal 1.0-2.5 [facility] [employer] Comment on above: Performed By: #### C BCAD, RF, VITD, ESR, TSH reflex FT4, CMP, FT4 #### [facility] [address] [place], [place] [id number] ALP [Catalytic activity/Vol] 63 U/L Normal 35-119 [facility] Specialist Comment on above: Performed By: #### C BCAD, RF, VITD, ESR, TSH reflex FT4, CMP, FT4 #### [facility] [address] [place], [place] [id number] ALT [Catalytic activity/Vol] 26 U/L Normal 6-33 [place] [employer] Comment on above: Result Comment: 01/26 Female reference range changed. Performed By: #### C BCAD, RF, VITD, ESR, TSH reflex FT4, CMP, FT4 #### [facility] [address] [place], [place] [id number] Anion gap [Moles/Vol] 18 mmol/L Normal 12-20 [facility] Comment on above: Result Comment: Effe ctive 03/03/2019 reference range changed. Performed By: #### C BCAD, RF, VITD, ESR, TSH reflex FT4, CMP, FT4 #### [facility] [address] [place], [place] [id number] AST [Catalytic activity/Vol] 26 U/L Normal 9-34 [facility] Comment on above: Performed By: #### C BCAD, RF, VITD, ESR, TSH reflex FT4, CMP, FT4 #### [facility] [address] [place], [place] [id number] BUN/CREA 10 Ratio Normal 6-22 [facility] Comment on above: Performed By: #### C BCAD, RF, VITD, ESR, TSH reflex FT4, CMP, FT4 #### [facility] [address] [place], [place] [id number] Calcium [Mass/Vol] 10.0 mg/dL Normal 8.6-10.2 [facility] Comment on above: Performed By: #### C BCAD, RF, VITD, ESR, TSH reflex FT4, CMP, FT4 #### [facility] [address] [place], [place] [id number] Chloride [Moles/Vol] 105 mmol/L Normal 98-107 [facility] Comment on above: Performed By: #### C BCAD, RF, VITD, ESR, TSH reflex FT4, CMP, FT4 #### [facility] [address] [place], [place] [id number] CO2 [Moles/Vol] 21 mmol/L Normal 20-31 [facility] Comment on above: Performed By: #### C BCAD, RF, VITD, ESR, TSH reflex FT4, CMP, FT4 #### [facility] [address] [place], [place] [id number] Creatinine [Mass/Vol] 0.6 mg/dL Normal 0.6-1.4 [facility] Comment on above: Performed By: #### C BCAD, RF, VITD, ESR, TSH reflex FT4, CMP, FT4 #### [facility] [address] [place], [place] [id number] eGFRAA 132 mL/min/1.73m2 Normal >60 [facility] Comment on above: Performed By: #### C BCAD, RF, VITD, ESR, TSH reflex FT4, CMP, FT4 #### [facility] [address] [place], [place] [id number] eGFRNAA 109 mL/min/1.73m2 Normal >60 [facility] Comment on above: Performed By: #### C BCAD, RF, VITD, ESR, TSH reflex FT4, CMP, FT4 #### [facility] [address] [place], [place] [id number] Globulin (S) [Mass/Vol] 2.2 g/dL Normal 1.9-3.7 [facility] Comment on above: Performed By: #### C BCAD, RF, VITD, ESR, TSH reflex FT4, CMP, FT4 #### [facility] [address] [place], [place] [id number] Glucose [Mass/Vol] 86 mg/dL Normal 65-99 [facility] Comment on above: Result Comment: For FASTING Glucose --- ADA reference ranges: Normal 65-99 mg/dl Prediabetes 100-125 Diabetes >/= 126 Performed By: #### C BCAD, RF, VITD, ESR, TSH reflex FT4, CMP, FT4 #### [facility] [address] [place], [place] [id number] Potassium [Moles/Vol] 4.1 mmol/L Normal 3.5-5.5 [facility] Comment on above: Performed By: #### C BCAD, RF, VITD, ESR, TSH reflex FT4, CMP, FT4 #### [facility] [address] [place], [place] [id number] Protein [Mass/Vol] 7.1 g/dL Normal 6.1-8.1 [place] [employer] Comment on above: Performed By: #### C BCAD, RF, VITD, ESR, TSH reflex FT4, CMP, FT4 #### [facility] [address] [place], [place] [id number] Sodium [Moles/Vol] 140 mmol/L Normal 135-146 [place] [employer] Comment on above: Performed By: #### C BCAD, RF, VITD, ESR, TSH reflex FT4, CMP, FT4 #### [facility] [address] [place], [place] [id number] TBIL <0.3 Normal [facility] Specialist Comment on above: Performed By: #### C BCAD, RF, VITD, ESR, TSH reflex FT4, CMP, FT4 #### [facility] [address] [place], [place] [id number] Urea nitrogen [Mass/Vol] 7 mg/dL Normal 7-25 [facility] Drawing Frame Tender Comment on above: Performed By: #### C BCAD, RF, VITD, ESR, TSH reflex FT4, CMP, FT4 #### [facility] [address] [place], [place] [id number] Free T4on 07-12-2021 Free T4 [Mass/Vol] 0.93 ng/dL Normal 0.80-1.80 [facility] Drawing Frame Tender Comment on above: Performed By: #### C BCAD, RF, VITD, ESR, TSH reflex FT4, CMP, FT4 #### [facility] [address] [place], [place] [id number] Q - PASQUALE SCREEN IFA W/RFL TIT ER AND PATTERNon 07-12-2021 PASQUALE SCREEN, IFA Negative Normal NEGATIVE [facility] Drawing Frame Tender Comment on above: Order Comment: [facility] performed at: [employer], [facility], [address], [address] [place] [address], [place], [address], Livestock Auctioneer: Leonard Turpin MD [facility] Date/Time: [facility] [...] AC-0: Negative International Consensus on PASQUALE Patterns (https://doi.org/10.1515/hjmr-3352-8242) For additional information, please refer to http://education.Aetel.inc (Droppy)/faq/EJX800 (This link is being provided for informational/ educational purposes only.) Performed By: #### 2 49 #### [facility] [address] [place] [id number] RBC Sedimentation Rateon ESR (Bld) [Velocity] 8.00 mm/h Normal 0.00-20.00 [facility] Comment on above: Performed By: #### C BCAD, RF, VITD, ESR, TSH reflex FT4, CMP, FT4 #### [facility] [address] [place], [place] [id number] Rheumatoid Factoron 07-13-19 22 RF <10 Normal [facility] Comment on above: Performed By: #### C BCAD, RF, VITD, ESR, TSH reflex FT4, CMP, FT4 #### [facility] [address] [place], [place] [id number] TSH w/ Reflex to Free T4on 0 07-12-2021 TSH 0.321 uIU/mL Low 0.400-4.500 [facility] Drawing Frame Tender Comment on above: Performed By: #### C BCAD, RF, VITD, ESR, TSH reflex FT4, CMP, FT4 #### [facility] [address] [place], [place] [id number] Vitamin D 25-OHon 07-12-2021 VIT D 25 OH 19 ng/ml Low >29 [facility] Drawing Frame Tender Comment on above: Result Comment: Ade min D Status Deficiency <20 ng/mL Insufficiency 20-29 ng/mL Optimal 30-100 ng/mL Possible Toxicity >=150 ng/mL Performed By: #### C BCAD, RF, VITD, ESR, TSH reflex FT4, CMP, FT4 #### [facility] [address] [place], [place] [id number] Comprehensive Metabolic Empo n 04-11-2021 Albumin [Mass/Vol] 4.6 g/dL Normal 3.2-5.5 [facility] Comment on above: Performed By: #### E BS CMP, EBS LIPID #### [facility] [address] [id number] [facility] Albumin/Globulin [Mass ratio] 1.9 {ratio} Normal [facility] Comment on above: Performed By: #### E BS CMP, EBS LIPID #### [facility] [address] [place] [address] [place] ALP [Catalytic activity/Vol] 43 U/L Normal 32-92 [facility] Comment on above: Performed By: #### E BS CMP, EBS LIPID #### [facility] [address] [id number] [place] ALT [Catalytic activity/Vol] 17 U/L Normal 10-60 [facility] Comment on above: Performed By: #### E BS CMP, EBS LIPID #### [facility] [address] [id number] [place] AST [Catalytic activity/Vol] 20 U/L Normal 10-42 [facility] Comment on above: Performed By: #### E BS CMP, EBS LIPID #### [facility] [address] [id number] [place] Bilirubin [Mass/Vol] 1.1 mg/dL Normal 0.3-1.2 [facility] Comment on above: Performed By: #### E BS CMP, EBS LIPID #### [facility] [address] [id number] [place] Calcium [Mass/Vol] 9.6 mg/dL Normal 8.2-10.2 [facility] Comment on above: Performed By: #### E BS CMP, EBS LIPID #### [facility] [address] [id number] [place] Chloride [Moles/Vol] 102 mmol/L Normal 95-114 [facility] Comment on above: Performed By: #### E BS CMP, EBS LIPID #### [facility] [address] CO2 [Moles/Vol] 21.4 mmol/L Low 22.0-30.0 [facility] Comment on above: Performed By: #### E BS CMP, EBS LIPID #### [facility] [address] Creatinine [Mass/Vol] 0.71 mg/dL Normal 0.44-1.03 [facility] Comment on above: Performed By: #### E BS CMP, EBS LIPID #### [address] Estimated GFR ( Michelle > 60 Normal [facility] Comment on above: Result Comment: GFR estimated reference range: According to KDOQI guidelines, <60 ml/min/1.73m2 is sufficient to diagnose a patient with chronic kidney disease. Performed By: #### E BS CMP, EBS LIPID #### [address] Estimated GFR (Non- Am > 60 Normal [facility] Comment on above: Performed By: #### E BS CMP, EBS LIPID #### [address] Globulin (S) [Mass/Vol] 2.4 g/dL Normal [facility] Comment on above: Performed By: #### E BS CMP, EBS LIPID #### [facility] [address] [place] [address] [place] Glucose [Mass/Vol] 76 mg/dL Normal 70-100 [facility] Comment on above: Performed By: #### E BS CMP, EBS LIPID #### [facility] [address] [place] [address] [place] Potassium [Moles/Vol] 3.3 mmol/L Low 3.5-5.1 [facility] Comment on above: Performed By: #### E BS CMP, EBS LIPID #### [facility] [address] [place] [address] Protein [Mass/Vol] 7.0 g/dL Normal 6.1-7.9 [facility] Comment on above: Performed By: #### E BS CMP, EBS LIPID #### [facility] [address] Sodium [Moles/Vol] 136 mmol/L Normal 136-146 [facility] Comment on above: Performed By: #### E BS CMP, EBS LIPID #### [facility] [address] [place] [address] [place] Urea nitrogen [Mass/Vol] 5 mg/dL Low 9-23 [facility] Comment on above: Performed By: #### E BS CMP, EBS LIPID #### [facility] [address] Lipid Profileon 04-11-2021 Cholesterol [Mass/Vol] 189 mg/dL Normal 140-200 [facility] Comment on above: Result Comment: Chol less than 200 mg/dl low risk Chol 201-239 mg/dl borderline risk Chol 240 mg/dl and greater high risk Performed By: #### E BS CMP, EBS LIPID #### [facility] [address] Cholesterol in HDL [Mass/Vol] 69 mg/dL Normal 35-85 [facility] Comment on above: Result Comment: HDL CHOL ATP-III CLASSIFICATION Cardiovascular Risk HDL > or equal to 60 mg/dL LOW HDL < 40 mg/dL HIGH Performed By: #### E BS CMP, EBS LIPID #### [facility] [address] Cholesterol.total/C holesterol in HDL [Mass ratio] 2.7 {ratio} Normal <5.0 [facility] Comment on above: Result Comment: PERF ORMED BY: [place] [address] PATHOLOGIST [employer]DR[employer]ANT MAINTAINER PAT PETERS M.D. Performed By: #### E BS CMP, EBS LIPID #### [facility] [address] LDL Cholesterol,Calcula shadi 107 mg/dL High 0-100 [facility] Comment on above: Result Comment: LDL ATP III CLASSIFICATION LDL less than 100 mg/dL Optimal LDL 100-129 mg/dL Near or above optimal LDL 130-159 mg/dL Borderline high LDL 160-189 mg/dL High LDL greater than 189 mg/dL Very high Performed By: #### E BS CMP, EBS LIPID #### [facility] [address] Triglyceride w/Reflex 64 mg/dL Normal 35-149 [facility] Comment on above: Result Comment: TRIG ATP III CLASSIFICATION TRIG less than 150 mg/dL Normal TRIG 150-199 mg/dL Borderline high TRIG 200-500 mg/dL High TRIG greater than 500 mg/dL Very high Standard traceable to the Center for Disease Conrtrol and Prevention (CDC) test method. Performed By: #### E BS CMP, EBS LIPID #### [facility] [address] VLDL CHOLESTEROL 12 mg/dL Normal [facility] Comment on above: Performed By: #### E BS CMP, EBS LIPID #### [facility] [address] Covid-19 PCR (CVDTB)on SARS-CoV-2 (COVID-19) RNA ERIC+probe Ql (Unsp spec) Detected Critically abnormal NOT DETECTED [facility] Comment on above: Result Comment: This test is not yet approved or cleared by the [place] FDA. When there are no FDA-approved or cleared tests available, and other criteria are met, FDA can make tests available under an emergency access mechanism called an Emergency Use Authorization (EUA). The EUA for this test is supported by the [employer] of Health and Human Service's (HHS's) declaration [...] used). Performed By: #### C VDTBH #### [facility] [address] [address] [address] Sierra Almonte CHLAMYDIA/GONOCOCCUS ERIC (SW AB/URINE/PAPon 12-14-2020 Chlamydia trachomatis, ERIC Negative Normal Negative [facility] Comment on above: Performed By: #### C T/NGNA #### [facility] [address] [place] [address] Dr. Sierra Almonte Neisseria gonorrhoeae, ERIC Negative Normal Negative [facility] Comment on above: Performed By: #### C T/NGNA #### [facility] [address] [address] [address] Sierra Almonte VAGINITIS/VAGINOSIS DNA PROB Anderw 12-11-2020 Loc species Negative Normal Negative [facility] Comment on above: Performed By: #### V AGINT #### [facility] [address] [place] [address] Dr. Sierra Almonte Gardnerella vaginalis Positive Abnormal Negative [facility] Comment on above: Performed By: #### V AGINT #### [facility] [address] [place] [address] Dr. Sierra Almonte Trichomonas vaginalis Negative Normal Negative [facility] Comment on above: Performed By: #### V AGINT #### [facility] [address] [place] [address] Dr. Sierra Almonte Vital Signs Date Time Vital Sign Value Performing Clinician Vladimir lity 05-13-2024 14:50-0400 Body mass index (BMI) [Ratio] 28.84 kg/m2 [employer] Work Phone: [facility] 05-13-2024 14:50-0400 Body weight 73.85 kg Raghavendra Christina DO Work Phone: [facility] 05-13-2024 14:50-0400 Diastolic blood pressure 68 mm[Hg] Raghavendra Christina DO Work Phone: [facility] 05-13-2024 14:50-0400 Systolic blood pressure 106 mm[Hg] Raghavendra Christina TUBE Work Phone: [facility] 04-29-2024 14:44-0500 Body mass index (BMI) [Ratio] 28.72 kg/m2 Raghavendra Christina DO Work Phone: [facility] 04-29-2024 14:44-0500 Body weight 73.54 kg Raghavendra Christina DO Work Phone: [facility] 04-29-2024 14:44-0500 Diastolic blood pressure 70 mm[Hg] Raghavendra Christina DO Work Phone: [facility] 04-29-2024 14:44-0500 Systolic blood pressure 98 mm[Hg] Raghavendra Christina DO Work Phone: [facility] 04-08-2024 11:58-0500 Body mass index (BMI) [Ratio] 28.48 kg/m2 Raghavendra Christina DO Work Phone: [facility] 04-08-2024 11:58-0500 Body weight 72.94 kg Raghavendra Christina DO Work Phone: [facility] 04-08-2024 11:58-0500 Diastolic blood pressure 74 mm[Hg] Raghavendra Christina DO Work Phone: [facility] 04-08-2024 11:58-0500 Systolic blood pressure 110 mm[Hg] Raghavendra Christina DO Work Phone: [facility] 04-02-2024 11:03-0500 Body mass index (BMI) [Ratio] 27.99 kg/m2 Teresa Jo Ann-Nossek FACILITIES MAINTENANCE ASSISTANT-DUPLICATION SPECIALIST Work Phone: [facility] 04-02-2024 11:03-0500 Body weight 71.67 kg Teresa Jo Ann-Nossek FACILITIES MAINTENANCE ASSISTANT-DUPLICATION SPECIALIST Work Phone: [facility] 04-02-2024 11:03-0500 Diastolic blood pressure 72 mm[Hg] Teresa Jo Ann-Nossek FACILITIES MAINTENANCE ASSISTANT-DUPLICATION SPECIALIST Work Phone: [facility] 04-02-2024 11:03-0500 Heart rate 105 /min Teresa Jo Ann-Nossek FACILITIES MAINTENANCE ASSISTANT-DUPLICATION SPECIALIST Work Phone: [facility] 04-02-2024 11:03-0500 Systolic blood pressure 122 mm[Hg] Teresa LowNosmahendra FACILITIES MAINTENANCE ASSISTANT-DUPLICATION SPECIALIST Work Phone: [facility] 03-25-2024 10:19-0500 Body mass index (BMI) [Ratio] 27.63 kg/m2 Raghavendra Christina DO Work Phone: [facility] 03-25-2024 10:19-0500 Body weight 70.76 kg Raghavendra Christina DO Work Phone: [facility] 03-25-2024 10:19-0500 Diastolic blood pressure 68 mm[Hg] Raghavendra Christina DO Work Phone: [facility] 03-25-2024 10:19-0500 Systolic blood pressure 100 mm[Hg] Raghavendra Chrisitna DO Work Phone: [facility] 03-11-2024 10:10-0500 Body mass index (BMI) [Ratio] 27.95 kg/m2 Raghavendra Christina DO Work Phone: [facility] 03-11-2024 10:10-0500 Body weight 71.58 kg Raghavendra Christina DO Work Phone: [facility] 03-11-2024 10:10-0500 Diastolic blood pressure 68 mm[Hg] Raghavendra Christina DO Work Phone: [facility] 03-11-2024 10:10-0500 Systolic blood pressure 104 mm[Hg] Raghavendra Christina DO Work Phone: [facility] 02-13-2024 13:14-0500 Body height 160 cm Emerita Gillmor RISK PROFESSIONAL Work Phone: [facility] 02-13-2024 13:14-0500 Body mass index (BMI) [Ratio] 26.93 kg/m2 Emerita Gillmor RISK PROFESSIONAL Work Phone: [facility] 02-13-2024 13:14-0500 Body weight 68.95 kg Emerita Gillmor RISK PROFESSIONAL Work Phone: [facility] 02-13-2024 13:14-0500 Diastolic blood pressure 72 mm[Hg] Emerita Whittakermor RISK PROFESSIONAL Work Phone: [facility] 02-13-2024 13:14-0500 Heart rate 109 /min Emerita Whittakermor RISK PROFESSIONAL Work Phone: [facility] 02-13-2024 13:14-0500 Systolic blood pressure 119 mm[Hg] Emerita Whittakermor RISK PROFESSIONAL Work Phone: [facility] 02-11-2024 10:19-0500 Body mass index (BMI) [Ratio] 27.3 kg/m2 Raghavendra Christina DO Work Phone: [facility] 02-11-2024 10:19-0500 Body weight 71.58 kg Raghavendra Christina DO Work Phone: [facility] 02-11-2024 10:19-0500 Diastolic blood pressure 70 mm[Hg] Raghavendra Christina DO Work Phone: [facility] 02-11-2024 10:19-0500 Systolic blood pressure 120 mm[Hg] Raghavendra Christina DO Work Phone: [facility] 01-10-2024 10:44-0500 Body mass index (BMI) [Ratio] 26.3 kg/m2 Raghavendra Christina DO Work Phone: [facility] 01-10-2024 10:44-0500 Body weight 68.95 kg Raghavendra Christina DO Work Phone: [facility] 01-10-2024 10:44-0500 Diastolic blood pressure 74 mm[Hg] Raghavendra Christina DO Work Phone: [facility] 01-10-2024 10:44-0500 Systolic blood pressure 116 mm[Hg] Raghavendra Christina DO Work Phone: [facility] 01-01-2024 11:40-0500 Body mass index (BMI) [Ratio] 25.78 kg/m2 Teresa Ornelas FACILITIES MAINTENANCE ASSISTANT-DUPLICATION SPECIALIST Work Phone: [facility] 01-01-2024 11:40-0500 Body weight 67.59 kg Teresa Buenoor-Nossek FACILITIES MAINTENANCE ASSISTANT-DUPLICATION SPECIALIST Work Phone: [facility] 01-01-2024 11:40-0500 Diastolic blood pressure 82 mm[Hg] Teresa Jo Ann-Nossek FACILITIES MAINTENANCE ASSISTANT-DUPLICATION SPECIALIST Work Phone: [facility] 01-01-2024 11:40-0500 Heart rate 99 /min Teresa Buenoor-Nossek FACILITIES MAINTENANCE ASSISTANT-DUPLICATION SPECIALIST Work Phone: [facility] 01-01-2024 11:40-0500 Systolic blood pressure 100 mm[Hg] Teresa Jo Ann-Nossek FACILITIES MAINTENANCE ASSISTANT-DUPLICATION SPECIALIST Work Phone: [facility] 11-28-2023 14:53-0400 Body mass index (BMI) [Ratio] 25.57 kg/m2 Raghavendra Christina DO Work Phone: [facility] 11-28-2023 14:53-0400 Body weight 67.04 kg Raghavendra Christina DO Work Phone: [facility] 11-28-2023 14:53-0400 Diastolic blood pressure 74 mm[Hg] Raghavendra Christina DO Work Phone: [facility] 11-28-2023 14:53-0400 Systolic blood pressure 114 mm[Hg] Raghavendra Christina DO Work Phone: [facility] 11-01-2023 15:16-0400 Body mass index (BMI) [Ratio] 25.6 kg/m2 [facility] Nurse [facility] 11-01-2023 15:16-0400 Body weight 67.[address] [facility] Nurse [facility] 10-18-2023 11:32-0400 Body height 161.9 cm Ysabel Cabral MD Work Phone: [facility] 10-18-2023 11:32-0400 Body mass index (BMI) [Ratio] 26.05 kg/m2 Ysabel Cabral MD Work Phone: [facility] 10-18-2023 11:32-0400 Body weight 68.31 kg Ysabel Cabral MD Work Phone: [facility] 10-18-2023 11:32-0400 Diastolic blood pressure 76 mm[Hg] Ysabel Cabral MD Work Phone: [facility] 10-18-2023 11:32-0400 Heart rate 92 /min Ysabel Cabral MD Work Phone: [facility] 10-18-2023 11:32-0400 Respiratory rate 20 /min Ysabel Cabral MD Work Phone: [facility] 10-18-2023 11:32-0400 Systolic blood pressure 122 mm[Hg] Ysabel Cabral MD Work Phone: [facility] Encounters Encounter Date Encounter Type Care Provider Facility Start: 05-13-2024 End: 05-13-2024 ambulatory RAGHAVENDRA CHRISTINA Not Available Start: 05-13-2024 End: 05-13-2024 Office outpatient visit 15 minutes Raghavendra Christina DO Work Phone: [facility] Comment on above: 36 weeks gestation o f ; Third trimester Start: 04-29-2024 End: 04-29-2024 ambulatory RAGHAVENDRA CHRISTINA Not Available Start: 04-29-2024 End: 04-29-2024 Bamboo flowsheet Raghavendra Christina DO Work Phone: [facility] Start: 04-29-2024 End: 04-29-2024 Bamboo flowsheet Raghavendra Christina DO Work Phone: [facility] Start: 04-29-2024 End: 04-29-2024 Clinisync Result Encounter Generic External Data Provider [facility] External Department Unsolicited Start: 04-29-2024 End: 04-29-2024 Office outpatient visit 15 minutes Raghavendra Christina DO Work Phone: [facility] Comment on above: Third trimester preg anahy; 34 weeks gestation of ; size inconsistent with dates Start: 04-22-2024 End: 04-22-2024 Clinisync Result Encounter Generic External Data Provider [facility] External Department Unsolicited Start: 04-22-2024 End: 02-25-2025 Clinisync Result Encounter Generic External Data Provider [...] 04-02-2024 Bamboo flowsheet Teresa Cheri Jo Ann-Nossek FACILITIES MAINTENANCE ASSISTANT-DUPLICATION SPECIALIST Work Phone: [facility] Start: 04-02-2024 End: 04-02-2024 Bamboo flowsheet Teresa Alonzo Jo Ann-Nossek FACILITIES MAINTENANCE ASSISTANT-DUPLICATION SPECIALIST Work Phone: [facility] Start: 04-02-2024 End: 04-02-2024 ambulatory TERESA Cheri JO ANN-NOSSEK Not Available Start: 04-02-2024 End: 04-02-2024 Office outpatient visit 25 minutes Teresa Cheri Jo Ann-Nossek FACILITIES MAINTENANCE ASSISTANT-DUPLICATION SPECIALIST Work Phone: [facility] Comment on above: [...] Start: 02-13-2024 End: 02-13-2024 Bamboo flowsheet Emerita Dair RISK PROFESSIONAL [facility] [address] Start: 02-13-2024 End: 02-13-2024 Bamboo flowsheet Emerita Dair RISK PROFESSIONAL [facility] Start: 02-13-2024 End: 02-13-2024 ambulatory EMERITA WARREN Not Available Start: 02-13-2024 End: 02-13-2024 Office outpatient visit 15 minutes Emerita Warren RISK PROFESSIONAL [facility] Comment on above: Intractable chronic migraine [...] 01-10-2024 End: 01-11-2024 External Result Encounter Raghavendra Chirstina DO Work Phone: [facility] External Department Unsolicited [...] 01-01-2024 Bamboo flowsheet Teresa Cheri Jo Ann-Nossek FACILITIES MAINTENANCE ASSISTANT-DUPLICATION SPECIALIST Work Phone: [facility] Start: 01-01-2024 End: 01-01-2024 Bamboo flowsheet Teresa Cheri Jo Ann-Nossek FACILITIES MAINTENANCE ASSISTANT-DUPLICATION SPECIALIST Work Phone: [facility] Start: 01-01-2024 End: 01-01-2024 ambulatory TERESA Cheri JO ANN-NOSSEK Not Available Start: 01-01-2024 End: 01-01-2024 Office outpatient visit 25 minutes Teresa Cheri Jo Ann-Nossek FACILITIES MAINTENANCE ASSISTANT-DUPLICATION SPECIALIST Work Phone: [facility] Comment on [...] Start: 11-28-2023 End: 11-28-2023 Bamboo flowsheet Raghavendra Valdezo DO Work Phone: [facility] Start: 11-28-2023 End: 11-28-2023 Clinisync Result Encounter Generic External Data Provider [facility] External Department Unsolicited Start: 11-27-2023 End: 11-27-2023 Office outpatient visit 15 minutes Teresa Alonzo Johnson FACILITIES MAINTENANCE ASSISTANT-DUPLICATION SPECIALIST Work Phone: [facility] Comment on [...] 25 minutes Evonne Jaydon DO Work Phone: [facility] [address] Comment on above: [...] Available Start: 06-11-2023 End: 06-11-2023 ambulatory TERESA Cheri JO ANN-NOSSEK Not Available Start: 11-09-2021 End: 11-09-[address] TALITA DODSON Facility:H1 Start: 05-11-2021 ([facility] C Vac) [facility] Co vid Vaccine Vicky Joe [facility] Start: 05-11-2021 End: 05-11-2021 ambulatory Vicky Joe Other [facility] [employer] Other Start: 03-01-2021 End: 03-01-2021 ambulatory CHLOE [...] Data Provider Start: 03-07-2024 [facility] UA (CLEAN/CATCH) DUPLICATION SPECIALIST/MICRO IF IND. Raghavendra Christina DO Work [...] [Identifier] in Cervix by Cyto stain Raghavendra Valdezo DO Work Phone: Start: 11-28-2023 ALL CBC [...] MG, RHF, URCA #### [facility] [address] [facility], [address] Plan of Treatment Date Care Activity Detail Author Start: 01-09-2027 Screening for malign ant neoplasm of cervix [facility] Start: 06-17-2024 End: 06-17-2024 Patient encounter procedure 06/17/2024 11:30 AM EDT Office Visit [facility] [address] [facility] [address] [place] [address] Teresa Ornelas, FACILITIES MAINTENANCE ASSISTANT-[facility] [address] [facility] [address] [place] [address] [facility] Start: 05-20-2024 End: 05-20-2024 Patient encounter procedure 05/20/2024 2:20 PM EDT Routine [facility] [address] [facility] [place] [address] Raghavendra Vasquez, DO [address] [place] [address] [facility] Start: 05-13-2024 End: 05-13-2025 CULTURE, GROUP B STREP WITH SUSCEPTIBLITY CULTURE, GROUP B STREP WITH SUSCEPTIBLITY Lab Routine Third trimester Expected: 05/13/2024, Expires: 05/13/2025 [facility] Work Phone: Comment on above: Expected: 05/13/2024 , Expires: 05/13/2025 Start: 05-13-2024 End: 05-13-2024 Patient encounter procedure 05/13/2024 2:00 PM EDT Routine [facility] [address] [facility] [place] [phone] Raghavendra Vasquez, DO [address] [facility] [address] [place], [place] [id number] [facility] Start: 05-06-2024 End: 05-06-2024 [...] AM EST Routine [facility] [address] [facility] [place] [phone] Raghavendra Vasquez, DO [address] [facility] [place] [address] [facility] Start: 04-08-2024 End: 10-06-2024 [...] AM EST Routine [facility] [address] [facility] [phone] Raghavendra Vasquez, DO [address] [place], [place] [id number] [facility] Start: 04-02-2024 End: 04-02-2024 Patient encounter procedure 04/02/2024 11:00 AM EST Office Visit [facility] [address] [facility] [address] [place] [phone] Teresa Ornelas, FACILITIES MAINTENANCE ASSISTANT-[facility] [address] [facility] [address] [place] [address] [facility] Start: 03-25-2024 End: 03-25-2024 Patient encounter procedure 03/25/2024 10:00 AM EST Routine [facility] [address] [place] [phone] Raghavendra Vasquez, DO [address] [place], [place] [id number] [facility] Start: 03-11-2024 End: 03-11-2024 Patient encounter procedure 03/11/2024 9:40 AM EST Routine [facility] [address] [place] [address] Raghavendra Vasquez, DO [address] [place], [place] [id number] [facility] Start: 02-13-2024 End: 02-13-2024 Patient encounter procedure 02/13/2024 1:00 PM EST Office Visit [facility] [place] [address] [place] [address] Emerita Warren, RISK PROFESSIONAL [address] [place] [place] [facility] Start: 02-11-2024 End: 02-10-2025 CBC panel - Blood by Automated count CBC Lab Routine Diabetes mellitus screening Expected: 02/11/2024 (Approximate), Expires: 02/10/2025 [facility] Work Phone: Comment on above: Expected: 02/11/2024 (Approximate), Expires: 02/10/2025 Start: 02-11-2024 End: 02-10-2025 Measurement of glucose 1 hour after glucose challenge for glucose tolerance test Glucose tolerance, 1 hour Lab Routine Diabetes mellitus screening Expected: 02/11/2024 (Approximate), Expires: 02/10/2025 [facility] Comment on above: Expected: 02/11/2024 (Approximate), Expires: 02/10/2025 Start: 02-11-2024 End: 02-10-2025 US for US OB SCAN FOR GROWTH Imaging Routine 23 weeks gestation of Diabetes mellitus screening Expected: 02/11/2024 (Approximate), Expires: 02/10/2025 [facility] Comment on above: Expected: 02/11/2024 (Approximate), Expires: 02/10/2025 Start: 02-11-2024 End: 02-11-2024 Patient encounter procedure 02/11/2024 9:40 AM EST Routine [facility] [address] [facility] [phone] Raghavendra Vasquez, [address] [place] [address] [facility] Start: 01-28-2024 End: 01-28-2024 Professional / ancillary services management 01/28/2024 11:00 AM EST Ancillary Procedure [facility] [address] [place] [address] [facility] Start: 01-10-2024 End: 07-09-2024 [...] AM EST Routine [facility] [address] [facility] [place] [address] Raghavendra Vasquez DO [address] [facility] [place] [address] [facility] Start: 01-01-2024 End: 01-01-2024 Patient encounter procedure 01/01/2024 11:30 AM EST Office Visit [facility] [address] [facility] [address] [place] [address] Teresa Ornelas, FACILITIES MAINTENANCE ASSISTANT-[facility]TH [address] [facility] [address] [place] [address] [facility] Start: 12-18-2023 End: 12-18-2023 Patient encounter procedure 12/18/2023 5:30 PM EDT Office Visit [facility] [place] [address] [place] [phone] Evonne Childress, DO [address] [place] [address] [facility] [place] [address] Start: 11-28-2023 End: 11-28-2023 Patient encounter procedure 11/28/2023 2:20 PM EDT Routine [facility] OB [address] [facility] [place] [phone] Raghavendra Vasquez DO [address] [facility] [place] [address] [facility] OB Start: 11-27-2023 End: 11-27-2023 Patient encounter procedure 11/27/2023 11:00 AM EDT Office Visit [facility] [address] [facility] [address] [place] [address] Teresa Ornelas, FACILITIES MAINTENANCE ASSISTANT-DUPLICATION SPECIALIST [address] [facility] [address] [place] [address] [facility] Start: 11-01-2023 End: 10-31-2024 ABO/Rh ABO/Rh Lab Routine Missed menses Expected: 11/01/2023 (Approximate), Expires: 10/31/2024 [facility] Comment on above: Expected: 11/01/2023 (Approximate), Expires: 10/31/2024 Start: 11-01-2023 End: 11-01-2023 ambulatory 11/01/2023 2:00 PM EDT Initial [facility] OB [address] [facility] [place] [address] [facility] OB Start: 11-01-2023 End: 10-31-2024 Blood type [...] management 11/01/2023 1:30 PM EDT Ancillary Procedure [facility] OB [address] [facility] [place] [address] [facility] OB Start: 10-28-2023 Influenza vaccination Influenza Vacc ine (#1) [facility] Start: 10-18-2023 End: 10-18-2023 Patient encounter procedure 10/18/2023 11:40 AM EDT Office Visit [facility] [address] [place] [phone] Ysabel Cabral MD [address] [facility], [place] [phone] [facility] Start: 10-18-2023 End: 10-18-2023 Patient encounter procedure 10/18/2023 10:30 AM EDT Procedure Visit [facility] [place] [facility] [address] [facility] [address] [place] [address] Evonne Childress, DO [address] [place], [place] [phone] Arrived [facility] Comment on above: Arrived Start: 09-10-2017 Screening for malign ant neoplasm of cervix [facility] Start: 09-10-2008 Screening for malign ant neoplasm of cervix Pap Smear [facility] Bacteria identified in Urine by Culture Urine culture Microbiology Routine Missed menses Ordered: 11/01/2023 [facility] Comment on above: Ordered: 11/01/2023 CBC W Auto Different ial panel - Blood CBC and differential Lab Routine Missed menses Ordered: 11/01/2023 [facility] Comment on above: Ordered: 11/01/2023 CHLAMYDIA TRACHOMATI S (GENITO/STI) CHLAMYDIA TRACHOMATIS (GENITO/STI) Lab Routine STD exposure Ordered: 01/10/2024 [facility] Comment on above: Ordered: 01/10/2024 Cytology Cervical or vaginal smear or scraping study Pap Smear Pathology and Cytology Routine Well woman exam with routine gynecological exam Ordered: 01/10/2024 [facility] Comment on above: Ordered: 01/10/2024 Hemoglobin A1c/Hemoglobin.total in Blood Hemoglobin A1c Lab Routine Missed menses Ordered: 11/01/2023 [facility] Comment on above: Ordered: 11/01/2023 Hepatitis B virus surface Ag [Presence] in Serum or Plasma by Immunoassay Hepatitis B surface antigen Lab Routine Missed menses Ordered: 11/01/2023 [facility] Comment on above: Ordered: 11/01/2023 Hepatitis C virus Ab [Presence] in Serum or Plasma by Immunoassay Hepatitis C antibody Lab Routine Missed menses Ordered: 11/01/2023 [facility] Comment on above: Ordered: 11/01/2023 HIV-1/HIV-2 antigen/antibody combination immunoassay HIV-1 and HIV-2 antibodies Lab Routine Missed menses Ordered: 11/01/2023 [facility] Comment on above: Ordered: 11/01/2023 Human papilloma viru s DNA [Presence] in Unspecified specimen by Probe with amplification HPV DNA probe, amplified Microbiology Routine Well woman exam with routine gynecological exam Ordered: 01/10/2024 [facility] Comment on above: Ordered: 01/10/2024 Neisseria gonorrhoea e DNA [Presence] in Unspecified specimen by ERIC with probe detection Neisseria gonorrhea DNA probe, direct Lab Routine STD exposure Ordered: 01/10/2024 [facility] Comment on above: Ordered: 01/10/2024 Reagin Ab [Presence] in Serum by RPR RPR Lab Routine Missed menses Ordered: 11/01/2023 [facility] Comment on above: Ordered: 11/01/2023 Rubella antibody, IgG Rubella an tibody, IgG Lab Routine Missed menses Ordered: 11/01/2023 [facility] Comment on above: Ordered: 11/01/2023 SURESWAB(R) ADVANCED VAGINITIS PLUS, TMA SURESWAB(R) ADVANCED VAGINITIS PLUS, TMA Pathology and Cytology Routine Vaginal discharge Ordered: 01/10/2024 [facility] Work Phone: Comment on above: Ordered: 01/10/2024 Immunizations Immunization Date Immunization Notes Care Provider Corrina hanson 05-11-2021 COVID-19 En Joe Other [employer] Other 10-02-2016 influenza, injectabl e, quadrivalent, preservative free Evonne Jaydon DO Work Phone: [facility] 10-02-2016 influenza virus vaccine, unspecified formulation Evonne Jaydon DO Work Phone: [facility] 10-13-2015 influenza, injectabl e, quadrivalent, preservative free Evonne Jaydon DO Work Phone: [facility] 12-02-2014 influenza, seasonal, injectable, preservative free Evonne Jaydon DO Work Phone: [facility] Healthcare Payers Date Payer Category Payer Medicaid [employer] [employer] [id number] 2021-Present [address] [place] [id number] 2021 Medicaid (Managed Care) [employer] [id number] 1987 Unknown [id number] 2.840.1.266633.3.579.2. 593 1987 Unknown [id number] 2.840.1.748489.3.579.2. 593 1987 Unknown [id number] 2.840.1.916021.3.579.2. 593 1987 Unknown [id number] 2.840.1.298109.3.579.2. 1259 1987 Unknown [id number] 2.840.1.405923.3.579.2. 1258 1987 Unknown [id number] 2..840.1.167747.3.579.2. 1258 1987 Unknown [id number] 2..840.1.657466.3.579.2. 1258 1987 Unknown [id number] 2.840.1.407385.3.579.2. 1258 1987 Unknown [id number] 2.840.1.850973.3.579.2. 1258 1987 Unknown [id number] 2.840.1.626927.3.579.2. 1258 1987 Unknown [id number] 2.840.1.624396.3.579.2. 1258 1987 Unknown [id number] 04.13.830.1.283839.3.579.2. 1258 1987 Unknown [id number] 2.840.1.946019.3.579.2. 1258 1987 Unknown [id number] 2840.1.923726.3.579.2. 1258 1987 Unknown [id number] 840.1.618952.3.579.2. 1258 1987 Unknown [id number] 04.13.830.1.779780.3.579.2. 1258 1987 Unknown [id number] .840.1.100876.3.579.2. 1258 1987 Unknown [id number] 2840.1.872507.3.579.2. 1258 1987 Unknown [id number] 2.840.1.433610.3.579.2. 1258 1987 Unknown [id number] 2.840.1.213775.3.579.2. 1258 1987 Unknown [id number] 840.1.338312.3.579.2. 9 1987 Unknown [id number] 2.16.840.1.908957.3.579.2. 1258 1987 Unknown [id number] 2.16.840.1.942199.3.579.2. 1258 1987 Unknown [id number] 2.16.840.1.441231.3.579.2. 1258 1987 Unknown [id number] 2.16.840.1.356758.3.579.2. 1258 1987 Unknown [id number] 2.16.840.1.543156.3.579.2. 1258 1987 Unknown [id number] 2.16.840.1.779839.3.579.2. 1258 1987 Unknown [id number] 2.16.840.1.218314.3.579.2. 1258 1987 Unknown [id number] 2.16.840.1.200222.3.579.2. 1258 1959 Unknown [id number] 2.16.840.1.722868.19 Social History Date Type Detail Facility Unknown if ever smoked [employer] Other Start: 2022 End: 01-01-2024 Sex Assigned At [employer] Other Start: 12-22-2022 Tobacco smoking stat [facility] Never smoked tobacco [facility] Start: 12-22-2022 [...] Start: 2022 Alcohol Comment cup coffee day [facility] Start: 09-15-2023 [facility] Start: 1987 Sex assigned at Not on file [facility] Start: 01-01-2024 End: 05-13-2024 Alcoholic beverage intake Ex-drinker (finding) [facility] Start: 01-01-2024 Alcohol Comment I have a glass of wine or 2 glasses each evening with dinner [facility] Clinical Notes 05-11-2021 to 05-13-2024 Shelli Lundberg, [facility] - 05/13/2024 2:20 PM Padmini Malave, [facility] - 04/29/2024 2:00 PM Christine Lundberg, [facility] - 04/08/2024 11:40 AM America Ornelas, [facility] - 04/02/2024 11:00 AM EST Note Date & Type Note Facility 05-13-2024 History of Present illness Narrative Reason for [...] before breakfast, Do not crush or chew. ProFe 391.3 (180 Fe) MG capsule 1 capsule, Daily ALLERGIES Allergies Allergen Reactions Amitriptyline Other Reaction(s): Other (See Comments) Extreme drowsiness Aspirin Other Reaction(s): hives,difficulty breathing Cyclobenzaprine Diclofenac Unknown Ibuprofen Other Reaction(s): All NSAIDS, hives Lamotrigine Other Reaction(s): rash-per patient report Meloxicam Unknown Naproxen Unknown Nsaids Other Reaction(s): Unknown Zoloft [Sertraline] PROBLEMS Active Ambulatory Problems Diagnosis Date Noted Attention deficit hyperactivity disorder (ADHD), combined type ([facility] 07/04/2022 Episodic mood disorder ([facility]) 07/04/2022 Generalized anxiety disorder ([facility]) 07/04/2022 Panic disorder ([facility]) 07/04/2022 Acquired scoliosis 09/09/2016 Allergic rhinitis 10/16/2019 Anxiety 01/31/2020 Asthma ([facility]) 12/31/2014 Chronic fatigue syndrome 07/03/2016 Chronic gastritis without bleeding 12/28/2022 Irritable bowel syndrome 07/03/2016 Migraine without aura and without status migrainosus, not intractable ([facility]) 09/19/2017 Mild intermittent asthma ([facility]) 02/28/2021 Primary localized osteoarthrosis of ankle and foot 03/13/2019 Vitamin D deficiency 12/28/2022 Headache 06/28/2023 Inadequate sleep hygiene 06/28/2023 Migraine ([facility]/HCC) 06/28/2023 Tenosynovitis of foot 06/28/2023 Nausea and vomiting 06/28/2023 Common migraine with intractable migraine ([facility]) 06/28/2023 Pain in limb 06/28/2023 Chronic tension-type headache, not intractable 06/28/2023 Sleep disturbance 06/28/2023 Insomnia, unspecified 06/28/2023 Other problems related to lifestyle 06/28/2023 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 08/10/2023 Resolved Ambulatory Problems Diagnosis Date Noted No Resolved Ambulatory Problems Past Medical History: Diagnosis Date Adenoma of left breast ADHD (attention deficit hyperactivity disorder) ([facility] Anemia Back pain Common migraine ([facility]) 08/17/2015 Depression ([facility]) H/O colonoscopy H/O umbilical hernia repair Insomnia 06/25/2017 Migraines ([facility]) Nausea with vomiting 08/17/2015 Tendonitis of right hand Tension headache 08/17/2015 HISTORY PAST MEDICAL HISTORY SOCIAL HISTORY Past Medical History: Diagnosis Date Adenoma of left breast removed 2013 ADHD (attention deficit hyperactivity disorder) ([facility]) Anemia Anxiety Asthma ([facility]) Back pain Common migraine ([facility]) 08/17/2015 Depression ([facility]) H/O colonoscopy 2013 H/O umbilical hernia repair 2008 Headache 08/17/2015 Inadequate sleep hygiene 04/23/2018 Insomnia 06/25/2017 Migraine ([facility]) 03/22/2017 Migraines ([facility]) Nausea with vomiting 08/17/2015 Pain in limb [...] appearance. She is well-developed. Genitourinary: Vulva normal. Cardiovascular: Rate and Rhythm: Normal rate and [...] nursing note reviewed. Exam conducted with a child support specialist present. Vitals: Estimated body mass index is 28.84 kg/m as calculated from the following: Height as of 02/12/24: 5' 3 . Weight as of this encounter: 162 lb 12.8 oz. BP: 106/68 Patient's last menstrual period was 09/01/2023. ASSESSMENT & PLAN ICD-10-CM 1. 36 weeks gestation of Z3A.36 POCT urinalysis dipstick manually resulted 2. Third trimester Z34.93 POCT urinalysis dipstick manually resulted CULTURE, GROUP B STREP WITH SUSCEPTIBLITY CULTURE, GROUP B STREP WITH SUSCEPTIBLITY Patient is doing well but has complaints of being tired and having maternal discomfort due to . Patient verbalized frequent movement and was instructed to perform kick counts three times per day. labor precautions were given, LARC consent was signed/declined, and GBS was obtained. Cervical check was performed and patient is 1cm dilated. Orders Placed This Encounter Procedures CULTURE, GROUP B STREP WITH SUSCEPTIBLITY POCT urinalysis dipstick manually resulted Follow Up: Patient is to return to office in 1 week for routine OB appointment Documented by Shelli Lundberg LPN on behalf of: Raghavendra Vasquez DO documented in this encounter [facility] 04-29-2024 History of Present illness Narrative Reason [...] Attention deficit hyperactivity disorder (ADHD), combined type ([facility]) 07/04/2022 Episodic mood disorder ([facility]) 07/04/2022 Generalized anxiety disorder ([facility]) 07/04/2022 Panic disorder ([facility]) 07/04/2022 Acquired scoliosis 09/09/2016 Allergic rhinitis 10/16/2019 Anxiety 01/31/2020 Asthma ([facility]) 12/31/2014 Chronic fatigue syndrome 07/03/2016 Chronic gastritis without bleeding 12/28/2022 Irritable bowel syndrome 07/03/2016 Migraine without aura and without status migrainosus, not intractable ([facility]) 09/19/2017 Mild intermittent asthma ([facility]) 02/28/2021 Primary localized osteoarthrosis of ankle and foot 03/13/2019 Vitamin D deficiency 12/28/2022 Headache 06/28/2023 Inadequate sleep hygiene 06/28/2023 Migraine ([facility]) 06/28/2023 Tenosynovitis of foot 06/28/2023 Nausea and vomiting 06/28/2023 Common migraine with intractable migraine ([facility]) 06/28/2023 Pain in limb 06/28/2023 Chronic tension-type headache, not intractable 06/28/2023 Sleep disturbance 06/28/2023 Insomnia, unspecified 06/28/2023 Other problems related to lifestyle 06/28/2023 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 08/10/2023 Resolved Ambulatory Problems Diagnosis Date Noted No Resolved Ambulatory Problems Past Medical History: Diagnosis Date Adenoma of left breast ADHD (attention deficit hyperactivity disorder) ([facility]) Anemia Back pain Common migraine ([facility]) 08/17/2015 Depression ([facility]) H/O colonoscopy H/O umbilical hernia repair Insomnia 06/25/2017 Migraines ([facility]) Nausea with vomiting 08/17/2015 Tendonitis of right hand Tension headache 08/17/2015 HISTORY PAST MEDICAL HISTORY SOCIAL HISTORY Past Medical History: Diagnosis Date Adenoma of left breast removed 2013 ADHD (attention deficit hyperactivity disorder) ([facility] Anemia Anxiety Asthma ([facility]) Back pain Common migraine ([facility]) 08/17/2015 Depression ([facility]) H/O colonoscopy 2012 H/O umbilical hernia repair 2008 Headache 08/17/2015 Inadequate sleep hygiene 04/23/2018 Insomnia 06/25/2017 Migraine (CMS/HCC) 03/22/2017 Migraines ([facility]) Nausea with vomiting 08/17/2015 Pain in limb [...] nursing note reviewed. Exam conducted with a child support specialist present. Vitals: Estimated body mass index is [...] Raghavendra Vasquez DO documented in this encounter [facility] 04-08-2024 History of Present illness Narrative [...] Attention deficit hyperactivity disorder (ADHD), combined type ([facility]) 07/04/2022 Episodic mood disorder ([facility]) 07/04/2022 Generalized anxiety disorder ([facility]) 07/04/2022 Panic disorder ([facility] [facility] 07/04/2022 Acquired scoliosis 09/09/2016 Allergic rhinitis 10/16/2019 Anxiety 01/31/2020 Asthma ([facility]) 12/31/2014 Chronic fatigue syndrome 07/03/2016 Chronic gastritis without bleeding 12/28/2022 Irritable bowel syndrome 07/03/2016 Migraine without aura and without status migrainosus, not intractable ([facility] 09/19/2017 Mild intermittent asthma ([facility]) 02/28/2021 Primary localized osteoarthrosis of ankle and foot 03/13/2019 Vitamin D deficiency 12/28/2022 Headache 06/28/2023 Inadequate sleep hygiene 06/28/2023 Migraine ([facility]) 06/28/2023 Tenosynovitis of foot 06/28/2023 Nausea and vomiting 06/28/2023 Common migraine with intractable migraine ([facility]) 06/28/2023 Pain in limb 06/28/2023 Chronic tension-type headache, not intractable 06/28/2023 Sleep disturbance 06/28/2023 Insomnia, unspecified 06/28/2023 Other problems related to lifestyle 06/28/2023 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 08/10/2023 Resolved Ambulatory Problems Diagnosis Date Noted No Resolved Ambulatory Problems Past Medical History: Diagnosis Date Adenoma of left breast ADHD (attention deficit hyperactivity disorder) ([facility] Anemia Back pain Common migraine ([facility]) 08/17/2015 Depression ([facility]) H/O colonoscopy H/O umbilical hernia repair Insomnia 06/25/2017 Migraines ([facility]) Nausea with vomiting 08/17/2015 Tendonitis of right hand Tension headache 08/17/2015 HISTORY PAST MEDICAL HISTORY SOCIAL HISTORY Past Medical History: Diagnosis Date Adenoma of left breast removed 2013 ADHD (attention deficit hyperactivity disorder) ([facility] Anemia Anxiety Asthma ([facility] Back pain Common migraine ([facility]) 08/17/2015 Depression ([facility]) H/O colonoscopy 2012 H/O umbilical hernia repair 2008 Headache 08/17/2015 Inadequate sleep hygiene 04/23/2018 Insomnia 06/25/2017 Migraine ([facility]) 03/22/2017 Migraines ([facility]) Nausea with vomiting 08/17/2015 Pain in limb [...] nursing note reviewed. Exam conducted with a child support specialist present. Vitals: Estimated body mass index is [...] Veda Sarmiento PA-C documented in this encounter [facility] 04-02-2024 History of Present illness Narrative Images from the original note were not included. Patient reports not starting the Zoloft after last visit. Tiki Moeller is a 38 y.o. female presents for Medication Management. HPI: Patient is here for medication follow up. Patient is currently 32weeks decided not to take zoloft. Got fired from [employer] due to falling asleep. She was feeling [...] Anxiety Asthma (CMS/HCC) Back pain Common migraine ([facility]) 08/17/2015 Depression ([facility]) H/O colonoscopy 2012 H/O umbilical hernia repair 2007 Headache 08/17/2015 Inadequate sleep hygiene 04/23/2018 Insomnia 06/25/2017 Migraine ([facility] 03/22/2017 Migraines ([facility]) Nausea with vomiting 08/17/2015 Pain in limb [...] check for post documented in this encounter [facility] 03-25-2024 History of Present illness Narrative [...] Attention deficit hyperactivity disorder (ADHD), combined type ([facility]) 07/04/2022 Episodic mood disorder ([facility] 07/04/2022 Generalized anxiety disorder ([facility] 07/04/2022 Panic disorder ([facility]) 07/04/2022 Acquired scoliosis 09/09/2016 Allergic rhinitis 10/16/2019 Anxiety 01/31/2020 Asthma ([facility]) 12/31/2014 Chronic fatigue syndrome 07/03/2016 Chronic gastritis without bleeding 12/28/2022 Irritable bowel syndrome 07/03/2016 Migraine without aura and without status migrainosus, not intractable ([facility] 09/19/2017 Mild intermittent asthma ([facility] 02/28/2021 Primary localized osteoarthrosis of ankle and foot 03/13/2019 Vitamin D deficiency 12/28/2022 Headache 06/28/2023 Inadequate sleep hygiene 06/28/2023 Migraine ([facility]) 06/28/2023 Tenosynovitis of foot 06/28/2023 Nausea and vomiting 06/28/2023 Common migraine with intractable migraine ([facility] 06/28/2023 Pain in limb 06/28/2023 Chronic tension-type headache, not intractable 06/28/2023 Sleep disturbance 06/28/2023 Insomnia, unspecified 06/28/2023 Other problems related to lifestyle 06/28/2023 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 08/10/2023 Resolved Ambulatory Problems Diagnosis Date Noted No Resolved Ambulatory Problems Past Medical History: Diagnosis Date Adenoma of left breast ADHD (attention deficit hyperactivity disorder) ([facility]) Anemia Back pain Common migraine ([facility]) 08/17/2015 Depression ([facility] H/O colonoscopy H/O umbilical hernia repair Insomnia 06/25/2017 Migraines ([facility]) Nausea with vomiting 08/17/2015 Tendonitis of right hand Tension headache 08/17/2015 HISTORY PAST MEDICAL HISTORY SOCIAL HISTORY Past Medical History: Diagnosis Date Adenoma of left breast removed 2013 ADHD (attention deficit hyperactivity disorder) ([facility] Anemia Anxiety Asthma ([facility] Back pain Common migraine ([facility] 08/17/2015 Depression ([facility] H/O colonoscopy 2012 H/O umbilical hernia repair 2008 Headache 08/17/2015 Inadequate sleep hygiene 04/23/2018 Insomnia 06/25/2017 Migraine ([facility] 03/22/2017 Migraines ([facility]) Nausea with vomiting 08/17/2015 Pain in limb [...] Migraines Mother Idania Swartz Rheum arthritis Father Lasaraelva Moeller Depression Father Amandeepelva Moeller Alcohol abuse [...] nursing note reviewed. Exam conducted with a child support specialist present. Vitals: Estimated body mass index is [...] Raghavendra Vasquez DO documented in this encounter [facility] 03-11-2024 History of Present illness Narrative [...] Attention deficit hyperactivity disorder (ADHD), combined type ([facility]) 07/04/2022 Episodic mood disorder ([facility] 07/04/2022 Generalized anxiety disorder ([facility]) 07/04/2022 Panic disorder ([facility]) 07/04/2022 Acquired scoliosis 09/09/2016 Allergic rhinitis 10/16/2019 Anxiety 01/31/2020 Asthma ([facility]) 12/31/2014 Chronic fatigue syndrome 07/03/2016 Chronic gastritis without bleeding 12/28/2022 Irritable bowel syndrome 07/03/2016 Migraine without aura and without status migrainosus, not intractable ([facility] 09/19/2017 Mild intermittent asthma ([facility] 02/28/2021 Primary localized osteoarthrosis of ankle and foot 03/13/2019 Vitamin D deficiency 12/28/2022 Headache 06/28/2023 Inadequate sleep hygiene 06/28/2023 Migraine ([facility]) 06/28/2023 Tenosynovitis of foot 06/28/2023 Nausea and vomiting 06/28/2023 Common migraine with intractable migraine ([facility] 06/28/2023 Pain in limb 06/28/2023 Chronic tension-type headache, not intractable 06/28/2023 Sleep disturbance 06/28/2023 Insomnia, unspecified 06/28/2023 Other problems related to lifestyle 06/28/2023 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 08/10/2023 Resolved Ambulatory Problems Diagnosis Date Noted No Resolved Ambulatory Problems Past Medical History: Diagnosis Date Adenoma of left breast ADHD (attention deficit hyperactivity disorder) ([facility]) Anemia Back pain Common migraine ([facility]) 08/17/2015 Depression ([facility] H/O colonoscopy H/O umbilical hernia repair Insomnia 06/25/2017 Migraines ([facility]) Nausea with vomiting 08/17/2015 Tendonitis of right hand Tension headache 08/17/2015 HISTORY PAST MEDICAL HISTORY SOCIAL HISTORY Past Medical History: Diagnosis Date Adenoma of left breast removed 2013 ADHD (attention deficit hyperactivity disorder) ([facility] Anemia Anxiety Asthma ([facility]) Back pain Common migraine ([facility]) 08/17/2015 Depression ([facility]) H/O colonoscopy 2012 H/O umbilical hernia repair 2008 Headache 08/17/2015 Inadequate sleep hygiene 04/23/2018 Insomnia 06/25/2017 Migraine ([facility] 03/22/2017 Migraines ([facility]) Nausea with vomiting 08/17/2015 Pain in limb [...] nursing note reviewed. Exam conducted with a child support specialist present. Vitals: Estimated body mass index is [...] Raghavendra Vasquez DO documented in this encounter [facility] 02-11-2024 History of Present illness Narrative [...] Attention deficit hyperactivity disorder (ADHD), combined type ([facility] 07/04/2022 Episodic mood disorder ([facility] 07/04/2022 Generalized anxiety disorder ([facility] 07/04/2022 Panic disorder ([facility]) 07/04/2022 Acquired scoliosis 09/09/2016 Allergic rhinitis 10/16/2019 Anxiety 01/31/2020 Asthma ([facility]) 12/31/2014 Chronic fatigue syndrome 07/03/2016 Chronic gastritis without bleeding 12/28/2022 Irritable bowel syndrome 07/03/2016 Migraine without aura and without status migrainosus, not intractable ([facility] 09/19/2017 Mild intermittent asthma ([facility] 02/28/2021 Primary localized osteoarthrosis of ankle and foot 03/13/2019 Vitamin D deficiency 12/28/2022 Headache 06/28/2023 Inadequate sleep hygiene 06/28/2023 Migraine ([facility]) 06/28/2023 Tenosynovitis of foot 06/28/2023 Nausea and vomiting 06/28/2023 Common migraine with intractable migraine ([facility]) 06/28/2023 Pain in limb 06/28/2023 Chronic tension-type headache, not intractable 06/28/2023 Sleep disturbance 06/28/2023 Insomnia, unspecified 06/28/2023 Other problems related to lifestyle 06/28/2023 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 08/10/2023 Resolved Ambulatory Problems Diagnosis Date Noted No Resolved Ambulatory Problems Past Medical History: Diagnosis Date Adenoma of left breast ADHD (attention deficit hyperactivity disorder) ([facility]) Anemia Back pain Common migraine ([facility]) 08/17/2015 Depression ([facility] H/O colonoscopy H/O umbilical hernia repair Insomnia 06/25/2017 Migraines ([facility]) Nausea with vomiting 08/17/2015 Tendonitis of right hand Tension headache 08/17/2015 HISTORY PAST MEDICAL HISTORY SOCIAL HISTORY Past Medical History: Diagnosis Date Adenoma of left breast removed 2013 ADHD (attention deficit hyperactivity disorder) ([facility]) Anemia Anxiety Asthma ([facility]) Back pain Common migraine ([facility]) 08/17/2015 Depression ([facility] H/O colonoscopy 2012 H/O umbilical hernia repair 2008 Headache 08/17/2015 Inadequate sleep hygiene 04/23/2018 Insomnia 06/25/2017 Migraine (CMS/HCC) 03/22/2017 Migraines ([facility]) Nausea with vomiting 08/17/2015 Pain in limb [...] 2019 tibial sesmoid removal UMBILICAL HERNIA REPAIR 2007DOM TOOTH EXTRACTION 06/15/2017 REVIEW OF SYSTEMS Review [...] nursing note reviewed. Exam conducted with a child support specialist present. Vitals: Estimated body mass index is [...] Raghavendra Vasquez DO documented in this encounter [address]14-2024 History of Present illness Narrative Reason for [...] Attention deficit hyperactivity disorder (ADHD), combined type ([facility] 07/04/2022 Episodic mood disorder ([facility] 07/04/2022 Generalized anxiety disorder ([facility] 07/04/2022 Panic disorder ([facility]) 07/04/2022 Acquired scoliosis 09/09/2016 Allergic rhinitis 10/16/2019 Anxiety 01/31/2020 Asthma ([facility]) 12/31/2014 Chronic fatigue syndrome 07/03/2016 Chronic gastritis without bleeding 12/28/2022 Irritable bowel syndrome 07/03/2016 Migraine without aura and without status migrainosus, not intractable ([facility] 09/19/2017 Mild intermittent asthma ([facility]) 02/28/2021 Primary localized osteoarthrosis of ankle and foot 03/13/2019 Vitamin D deficiency 12/28/2022 Headache 06/28/2023 Inadequate sleep hygiene 06/28/2023 Migraine (CMS/HCC) 06/28/2023 Tenosynovitis of foot 06/28/2023 Nausea and vomiting 06/28/2023 Common migraine with intractable migraine ([facility]) 06/28/2023 Pain in limb 06/28/2023 Chronic tension-type headache, not intractable 06/28/2023 Sleep disturbance 06/28/2023 Insomnia, unspecified 06/28/2023 Other problems related to lifestyle 06/28/2023 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 08/10/2023 Resolved Ambulatory Problems Diagnosis Date Noted No Resolved Ambulatory Problems Past Medical History: Diagnosis Date Adenoma of left breast ADHD (attention deficit hyperactivity disorder) ([facility]) Anemia Back pain Common migraine ([facility]) 08/17/2015 Depression ([facility] H/O colonoscopy H/O umbilical hernia repair Insomnia 06/25/2017 Migraines ([facility]) Nausea with vomiting 08/17/2015 Tendonitis of right hand Tension headache 08/17/2015 HISTORY PAST MEDICAL HISTORY SOCIAL HISTORY Past Medical History: Diagnosis Date Adenoma of left breast removed 2013 ADHD (attention deficit hyperactivity disorder) ([facility]) Anemia Anxiety Asthma ([facility]) Back pain Common migraine ([facility]) 08/17/2015 Depression ([facility] H/O colonoscopy 2012 H/O umbilical hernia repair 2008 Headache 08/17/2015 Inadequate sleep hygiene 04/23/2018 Insomnia 06/25/2017 Migraine (CMS/HCC) 03/22/2017 Migraines ([facility]) Nausea with vomiting 08/17/2015 Pain in limb [...] nursing note reviewed. Exam conducted with a child support specialist present. Vitals: Estimated body mass index is [...] Raghavendra Vasquez DO documented in this encounter [facility] 01-01-2024 History of Present illness Narrative [...] visit. 20 weeks. 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 [place] [employer]. Psychosocial stressors include . SUBJECTIVE: PAST MEDICAL [...] and Time Memory/Concentration Short term intact and half-way intact Insight/Judgement Fair OBJECTIVE: Visit Vitals LMP [...] Visit time :32min documented in this encounter [facility] 11-28-2023 History of Present illness Narrative [...] Attention deficit hyperactivity disorder (ADHD), combined type ([facility]) 07/04/2022 Episodic mood disorder ([facility] 07/04/2022 Generalized anxiety disorder ([facility]) 07/04/2022 Panic disorder ([facility]) 07/04/2022 Acquired scoliosis 09/09/2016 Allergic rhinitis 10/16/2019 Anxiety 01/31/2020 Asthma ([facility]) 12/31/2014 Chronic fatigue syndrome 07/03/2016 Chronic gastritis without bleeding 12/28/2022 Irritable bowel syndrome 07/03/2016 Migraine without aura and without status migrainosus, not intractable ([facility]) 09/19/2017 Mild intermittent asthma ([facility]) 02/28/2021 Primary localized osteoarthrosis of ankle and foot 03/13/2019 Vitamin D deficiency 12/28/2022 Headache 06/28/2023 Inadequate sleep hygiene 06/28/2023 Migraine ([facility]) 06/28/2023 Tenosynovitis of foot 06/28/2023 Nausea and vomiting 06/28/2023 Common migraine with intractable migraine ([facility]) 06/28/2023 Pain in limb 06/28/2023 Chronic tension-type headache, not intractable 06/28/2023 Sleep disturbance 06/28/2023 Insomnia, unspecified 06/28/2023 Other problems related to lifestyle 06/28/2023 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 08/10/2023 Resolved Ambulatory Problems Diagnosis Date Noted No Resolved Ambulatory Problems Past Medical History: Diagnosis Date Adenoma of left breast ADHD (attention deficit hyperactivity disorder) ([facility] Anemia Back pain Common migraine ([facility]) 08/17/2015 Depression ([facility]) H/O colonoscopy H/O umbilical hernia repair Insomnia 06/25/2017 Migraines ([facility]) Nausea with vomiting 08/17/2015 Tendonitis of right hand Tension headache 08/17/2015 HISTORY PAST MEDICAL HISTORY SOCIAL HISTORY Past Medical History: Diagnosis Date Adenoma of left breast removed 2013 ADHD (attention deficit hyperactivity disorder) ([facility]) Anemia Anxiety Asthma ([facility]) Back pain Common migraine ([facility]) 08/17/2015 Depression ([facility]) H/O colonoscopy 2012 H/O umbilical hernia repair 2008 Headache 08/17/2015 Inadequate sleep hygiene 04/23/2018 Insomnia 06/25/2017 Migraine ([facility] 03/22/2017 Migraines ([facility]) Nausea with vomiting 08/17/2015 Pain in limb [...] nursing note reviewed. Exam conducted with a child support specialist present. Vitals: Estimated body mass index is [...] undercooked meat, and stay away from [facility]. Patient has been consulted regarding any [...] Raghavendra Vasquez DO documented in this encounter [facility] 11-27-2023 History of Present illness Narrative [...] work done. 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 Psychosocial stressors include . SUBJECTIVE: PAST MEDICAL HISTORY: Past Medical History: Diagnosis Date Adenoma of left breast removed 2013 ADHD (attention deficit hyperactivity disorder) ([facility]) Anemia Anxiety Asthma ([facility]) Back pain Common migraine ([facility] 08/17/2015 Depression ([facility]) H/O colonoscopy 2012 H/O umbilical hernia repair 2007 Headache 08/17/2015 Inadequate sleep hygiene 04/23/2018 Insomnia 06/25/2017 Migraine ([facility]) 03/22/2017 Migraines ([facility]) Nausea with vomiting 08/17/2015 Pain in limb [...] and Time Memory/Concentration Short term intact and half-way intact Insight/Judgement Good OBJECTIVE: Visit Vitals LMP [...] F/U 6 weeks documented in this encounter [facility] 11-01-2023 History of Present illness Narrative [...] the following prescription(s): albuterol hfa, albuterol hfa, gijyfwhbhs-xequxqzubqeba-utzzdcsn , cyanocobalamin, d3-1000, dicyclomine, fluticasone, onabotulinumtoxina, ondansetron, promethazine, sertraline, and tizanidine. Medical History: Active Ambulatory Problems Diagnosis Date Noted Attention deficit hyperactivity disorder (ADHD), combined type ([facility]) 07/04/2022 Episodic mood disorder ([facility]) 07/04/2022 Generalized anxiety disorder ([facility]) 07/04/2022 Panic disorder ([facility]) 07/04/2022 Acquired scoliosis 09/09/2016 Allergic rhinitis 10/16/2019 Anxiety 01/31/2020 Asthma ([facility]) 12/31/2014 Chronic fatigue syndrome 07/03/2016 Chronic gastritis without bleeding 12/28/2022 Irritable bowel syndrome 07/03/2016 Migraine without aura and without status migrainosus, not intractable ([facility]) 09/19/2017 Mild intermittent asthma ([facility]) 02/28/2021 Primary localized osteoarthrosis of ankle and foot 03/13/2019 Vitamin D deficiency 12/28/2022 Headache 06/28/2023 Inadequate sleep hygiene 06/28/2023 Migraine ([facility]) 06/28/2023 Tenosynovitis of foot 06/28/2023 Nausea and vomiting 06/28/2023 Common migraine with intractable migraine ([facility]) 06/28/2023 Pain in limb 06/28/2023 Chronic tension-type headache, not intractable 06/28/2023 Sleep disturbance 06/28/2023 Insomnia, unspecified 06/28/2023 Other problems related to lifestyle 06/28/2023 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 08/10/2023 Resolved Ambulatory Problems Diagnosis Date Noted No Resolved Ambulatory Problems Past Medical History: Diagnosis Date Adenoma of left breast ADHD (attention deficit hyperactivity disorder) ([facility]) Anemia Back pain Common migraine (CMS/HCC) 08/17/2015 Depression (CMS/HCC) H/O colonoscopy H/O umbilical hernia repair Insomnia 06/25/2017 Migraines ([facility]) Nausea with vomiting 08/17/2015 Tendonitis of right [...] pt to schedule US w/tbh. Pt desired [place] [facility] advised pt to wait until 10 [...] An Duffy MA documented in this encounter [facility] 10-19-2023 Telephone encounter Note Pt needs a letter stating that she was seen in office on 10/17 Please Fax to [phone] [facility] 10-19-2023 Miscellaneous Notes Pt needs a letter stating that she was seen in office on 10/17 Please Fax to [phone] documented in this encounter [facility] 10-18-2023 History of Present illness Narrative [...] 2 puffs, Inhalation, Every 4 hours PRN qewdennscn-avnobtecclaau-kjhaxafa 50-325-40 MG tablet TAKE 1 TABLET BY [...] 2019 tibial sesmoid removal UMBILICAL HERNIA REPAIR 2007 WISDOM TOOTH EXTRACTION 06/15/2017 FAMILY HISTORY: Family [...] for further guidance. documented in this encounter [facility] 10-18-2023 History of Present illness Narrative Images from the original note were not included. Mendoza Moeller is a 38 y.o. female. Patient was to be seen for botox injections but she just found out that she is . She was not planning but not preventing . She still has to see her energy management specialist. She has been receiving the Botox injections [...] during those pregnancies. 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 Objective Neurological Exam [...] Return to clinic: documented in this encounter [facility] 08-03-2021 Note FINDINGS: Sonographic evaluation targeted to the painful palpable areas within the right breast. Multiple subcentimeter benign simple cysts within the right upper quadrant. Mild periareolar ductal dilatation (3-4 mm diameter). No suspicious solid nodule or mass. IMPRESSION: BI RADS 2 : BENIGN FINDINGS Report reported and signed by Alexei Smith on 08/03/2021 [id number] [facility] Drawing Frame Tender 05-11-2021 Evaluation note Encounter Date Diagnosis Assessment Notes Apr, Encounter for immunization (ICD-10 - Z23) Patient presents for COVID-19 vaccination #2. Pre-screening form answers evaluated with patient. Patient denies current illness or allergic reaction to component of COVID-19 vaccine. Patient provided with current copy of EUA. [employer] Other Evaluation note* Diagnosis Attention deficit hyperactivity [...] with dates [facility] Diagnosis 36 weeks gestation of Third trimester state, incidental [facility] Narrative - Reported* Type Description Date Medical History DEPRESSIVE DISORDER Medical History ASTHMA Medical History ANXIETY Medical History MIGRAINES Medical History BIPOLAR Medical History BACK PAIN Medical History ANEMIA Surgical History umbilical herniorrhaphy 2007 Surgical History colposcopy 2012 Surgical History adenoma removed from left breas t Surgical History tibial and fibular sesmoid 10-15 [employer] Other Summary Purpose Family History No Family History Records FoundNo Family History Records FoundNo Family History Records FoundNo Family History Records FoundNo Family History Records Found Advance Directives No Advanced Directives Records FoundNo Advanced Directives Records FoundNo Advanced Directives Records FoundNo Advanced Directives Records FoundNo Advanced Directives Records Found Additional Source Comments INFORMATION SOURCE (unrecogn ized section and content) DATE CREATED AUTHOR 05/25/2021 [facility] DATE CREATED AUTHOR AUTHOR'S ORGANIZ ATION 08/04/2021 [facility] Me dical Specialist DATE CREATED AUTHOR AUTHOR'S ORGANIZ ATION 11/23/[address] [facility] pital DATE CREATED AUTHOR AUTHOR'S ORGANIZ ATION 12/19/2022 [facility] DATE CREATED AUTHOR AUTHOR'S ORGANIZ ATION 05/15/2024 [facility] dical Specialists EPIC REASON FOR VISIT (unrecogniz ed section and content) Reason Comments Routine Visit Reason Comments Med Management Follow-up Reason Comments Well Women Visit Routine Visit STI Screening Reason Comments Nausea/Vomiting In Reason Comments Amenorrhea Reason Comments Migraine Care Teams (unrecognized sec tion and content) Paramedic Instructor Relationship Specialty Start Date End Date Ysabel Cabral MD [address] [place] [address] PCP - General Family Medicine 07/29/22 Ale Zaldivar MD [address] [place] [address] PCP - [facility] 05/28/23 Paramedic Instructor Relationship Specialty Start Date End Date Ysabel Cabral MD [address] [place] [address] PCP - General Family Medicine 07/29/22 Ale Zaldivar MD [address] [place] [address] PCP - [facility] 05/28/23 Paramedic Instructor Relationship Specialty Start Date End Date Ysabel Cabral MD [address] [place] [address] PCP - General Family [facility] 07/29/22 Ale Zaldivar MD [address] [place] [address] PCP - [facility] 05/28/23 Paramedic Instructor Relationship Specialty Start Date End Date Ysabel Cabral MD [address] [place] [address] PCP - General [facility] 07/29/22 Ale Zaldivar MD [address] [place] [address] PCP - [facility] 05/28/23 Paramedic Instructor Relationship Specialty Start Date End Date Ysabel Cabral MD [address] [place] [address] PCP - General Family [facility] 07/29/22 Ale Zaldivar MD [address] [place] [address] PCP - [facility] 05/28/23 Paramedic Instructor Relationship Specialty Start Date End Date Ysabel Cabral MD [address] [place] [address] PCP - General Family Medicine 07/29/22 Ale Zaldivar MD [address] [facility] [address] PCP - [facility] 05/28/23 Paramedic Instructor Relationship Specialty Start Date End Date Ysabel Cabral MD [address] [facility] [address] PCP - General Family Medicine 07/29/22 Chloe Carvajal, NATAN [address] [facility] [address] PCP - [facility] 11/27/23 Paramedic Instructor Relationship Specialty Start Date End Date Ysabel Cabral MD [address] [place] [address] PCP - General Family Medicine 07/29/22 Chloe Carvajal, RISK PROFESSIONAL [address] [facility] [address] PCP - [facility] 11/27/23 Paramedic Instructor Relationship Specialty Start Date End Date Ysabel Cabral MD [address] [place] [address] PCP - General Family Medicine 07/29/22 Chloe Carvajal NP [address] [facility] [address] PCP - [facility] 11/27/23 Paramedic Instructor Relationship Specialty Start Date End Date Ysabel Cabral MD [address] [place] [address] PCP - General Family Medicine 07/29/22 Chloe Carvajal, RISK PROFESSIONAL PCP - [facility] 11/27/23 Paramedic Instructor Relationship Specialty Start Date End Date Ysabel Cabral MD [address] [place] [address] PCP - General Family [facility] 07/29/22 Chloe Carvajal, RISK PROFESSIONAL PCP - [facility] 11/27/23 Paramedic Instructor Relationship Specialty Start Date End Date Ysabel Cabral MD [address] [place] [address] PCP - General Family [facility] 07/29/22 Ale Zaldivar MD [address] [place] [address] PCP - [facility] 05/28/23 Paramedic Instructor Relationship Specialty Start Date End Date Ysabel Cabral MD [address] [place] [address] PCP - General Family Medicine 07/29/22 Ale Zaldivar MD [address] [place] [address] PCP - [facility] 05/28/23 Paramedic Instructor Relationship Specialty Start Date End Date Ysabel Cabral MD [address] [place] [address] PCP - General Family Medicine 07/29/22 Ale Zaldivar MD [address] [place] [address] PCP - [facility] 05/28/23 Paramedic Instructor Relationship Specialty Start Date End Date Ysabel Cabral MD [address] [place] [address] PCP - General Family Medicine 07/29/22 Chloe Carvajal, RISK PROFESSIONAL PCP - [facility] 11/27/23 Paramedic Instructor Relationship Specialty Start Date End Date Ysabel Cabral MD [address] [place] [address] PCP - [facility] 07/29/22 Ale Zaldivar MD [address] [place] [address] PCP - [facility] 05/28/23 Paramedic Instructor Relationship Specialty Start Date End Date Ysabel Cabral MD [address] [facility] [address] PCP - [facility] 07/29/22 Ale Zaldivar MD [address] [place] [address] PCP - [facility] 05/28/23 Paramedic Instructor Relationship Specialty Start Date End Date Ysabel Cabral MD [address] [place] [address] PCP - General Family Medicine 07/29/22 Chloe Carvajal, RISK PROFESSIONAL PCP - [facility] 11/27/23 Paramedic Instructor Relationship Specialty Start Date End Date Ysabel Cabral MD [address] [facility] [address] PCP - General Family Medicine 07/29/22 Chloe Carvajal, RISK PROFESSIONAL PCP - [facility] 11/27/23 Paramedic Instructor Relationship Specialty Start Date End Date Ysabel Cabral MD [address] [place] [address] PCP - [facility] 07/29/22 Chloe Carvajal, RISK PROFESSIONAL PCP - [facility] 11/27/23 Paramedic Instructor Relationship Specialty Start Date End Date Ysabel Cabral MD [address] [place] [address] PCP - [facility] 07/29/22 Chloe Carvajal, RISK PROFESSIONAL PCP - [facility] 11/27/23 Paramedic Instructor Relationship Specialty Start Date End Date Ysabel Cabral MD [address] [facility] [place] [address] PCP - General [facility] 07/29/22 Chloe Carvajal, RISK PROFESSIONAL PCP - [facility] 11/27/23 Teresa Ornelas, FACILITIES MAINTENANCE ASSISTANT-DUPLICATION SPECIALIST [address] [address] [place] [address] Nurse Practitioner Psychiatry 03/14/24 Paramedic Instructor Relationship Specialty Start Date End Date Ysabel Cabral MD [address] [place] [address] PCP - General Family [facility] 07/29/22 Chloe Carvajal, RISK PROFESSIONAL PCP - [facility] 11/27/23 Teresa Ornelas, FACILITIES MAINTENANCE ASSISTANT-DUPLICATION SPECIALIST [address] [facility] [address] [place] [address] Nurse Practitioner Psychiatry 03/14/24 Paramedic Instructor Relationship Specialty Start Date End Date Ysabel Cabral MD [address] [place] [address] PCP - [facility] 07/29/22 Chloe Carvajal, RISK PROFESSIONAL PCP - [facility] 11/27/23 Teresa Ornelas, FACILITIES MAINTENANCE ASSISTANT-DUPLICATION SPECIALIST [address] [facility] [address] [place] [address] Nurse Practitioner Psychiatry 03/14/24 Paramedic Instructor Relationship Specialty Start Date End Date Ysabel Cabral MD [address] [place] [address] PCP - [facility] 07/29/22 Ysabel Cabral MD [address] [place] [address] PCP - [facility] 02/27/24 Teresa Ornelas, FACILITIES MAINTENANCE ASSISTANT-DUPLICATION SPECIALIST [address] [facility] [address] [place] [address] Nurse Practitioner Psychiatry 03/14/24 Paramedic Instructor Relationship Specialty Start Date End Date Ysabel Cabral MD [address] [place] [address] PCP - General [facility] 07/29/22 Ysabel Cabral MD [address] [place] [address] PCP - [facility] 02/27/24 Teresa Ornelas, FACILITIES MAINTENANCE ASSISTANT-DUPLICATION SPECIALIST [address] [facility] [address] [place] [address] Nurse Practitioner Psychiatry 03/14/24 Paramedic Instructor Relationship Specialty Start Date End Date Ysabel Cabral MD [address] [place] [address] PCP - [facility] 07/29/22 Ysabel Cabral MD [address] [place] [address] PCP - [facility] 02/27/24 Teresa Ornelas, FACILITIES MAINTENANCE ASSISTANT-DUPLICATION SPECIALIST [address] [address] Nurse Practitioner Psychiatry 03/14/24 Paramedic Instructor Relationship Specialty Start Date End Date Ysabel Cabral MD [address] [place] [address] PCP - [facility] 07/29/22 Ysabel Cabral MD [address] [facility] [place] [address] PCP - [facility] 02/27/24 Teresa Ornelas, FACILITIES MAINTENANCE ASSISTANT-DUPLICATION SPECIALIST [address] [address] Nurse Practitioner Psychiatry 03/14/24 Paramedic Instructor Relationship Specialty Start Date End Date Ysabel Cabral MD [address] [place] [address] PCP - General Family [facility] 07/29/22 Ysabel Cabral MD [address] [place] [address] PCP - [facility] 02/27/24 Teresa Ornelas APRN-DUPLICATION SPECIALIST [address] [facility] [address] [place] [address] Nurse Practitioner Psychiatry 03/14/24 Paramedic Instructor Relationship Specialty Start Date End Date Ysabel Cabral MD [address] [place] [address] PCP - [facility] 07/29/22 Ysabel Cabral MD [address] [place] [address] PCP - [facility] 02/27/24 Teresa Ornelas APRN-DUPLICATION SPECIALIST [address] [facility] [address] [place] [address] Nurse Practitioner Psychiatry 03/14/24 FOR RECORDS PERTAINING [...] BE BASED ON THE PRIMARY CLINICAL RECORDS. [facility], [facility]. provides no warranty or guarantee of the accuracy or completeness of information in this document.
[2024-05-16 11:54] LABS: Bilirubin Urine NEGATIVE (NEGATIVE); Blood Urine NEGATIVE (NEGATIVE); Clarity Urine CLEAR (CLEAR); Color Urine LT. YELLOW (YELLOW); Glucose Urine UA NEGATIVE (NEGATIVE); Ketones Urine NEGATIVE (NEGATIVE); Leukocyte Esterase Urine NEGATIVE (NEGATIVE); Nitrite Urine NEGATIVE (NEGATIVE); Protein Urine NEGATIVE (NEG/TRACE); Specific Gravity Urine 1.015 (1.005-1.025); Urobilinogen Urine 0.2 EU/dL (0.2-1.0)
[2024-05-16 11:59] LABS: Urine Microscopic Indicated NO
== END 2024-05-16 12:49 | disposition home or self-care (01) ==
PROVIDERS: Admitting Provider Obstetrics & Gynecology; PCP Family Medicine; Visit Provider Obstetrics & Gynecology
DX: O47.03 False labor before 37 completed weeks of gestation, third trimester (principal); Z3A.36 36 weeks gestation of pregnancy
CPT/HCPCS: 59025; 81003; G0378; G0379

== ENCOUNTER 2024-05-17 01:45 | Inpatient (IN) | payer OTHER, SELFPAY ==
[2024-05-17] VITALS (59 sets, daily range): BP systolic 72–132; BP diastolic 33–77; PULSE 61–104; TEMP 36.2
--- OUTSIDE RECORDS SUMMARY | 2024-05-17 01:50 | XMS_ITS | CCD ---
Author Organization [facility] Care Team Providers Care Group Home Paraprofessional Name Role Phone Vicky Joe Unavailable WEST, DR SANON Admitting Unavailable KARASIK, DR SANON Attending Unavailable KARASIK, DR SANON Consulting Unavailable KARASIK, DR SANON Attending Unavailable KARASIK, DR SANON Consulting Unavailable KARASIK, DR SANON Admitting Unavailable CHLOE CARVAJAL Attending Unavailable CHLOE CARVAJAL Consulting Unavailable CHLOE CARVAJAL Admitting Unavailable Ysabel Cabral MD Primary Care Provider Ale Zaldivar MD Unavailable [phone] [place] MECHANICAL MAINTENANCE FOREMAN, Chloe R Unavailable Dillon MECHANICAL MAINTENANCE FOREMAN, Chloe R Unavailable Jo Ann-Nosmahendra GUM MIXER-CATERER'S AIDETeresa Unavailable Ysabel aCbral MD Unavailable RAGHAVENDRA VASQUEZ Attending Unavailable JO ANN-TERESA REINA Attending Unavailab RAGHAVENDRA Bustamante Attending Unavailable RAGHAVENDRA VASQUEZ Attending Unavailable RAGHAVENDRA VASQUEZ Attending Unavailable JO ANN-NOSSETERESA Butterfield Attending Unavailab le JO ANN-NOSTERESA HOLLIS Attending Unavailab EVONNE Hargrove Attending Unavailable JO ANNTERESA HENAO Attending Unavailab YSABEL Don Attending Unavailable CHLOE [...] source) Aspirin Drug Allergy shortness of breath [facility] Other (20 sources) Diclofenac Drug Allergy 07-05-19 Unknown [facility] Other (20 sources) Ibuprofen Drug Allergy 07-05-19 Unknown [facility] Other (20 sources) Naproxen Drug Allergy 07-05-19 Unknown [facility] Other (20 sources) NSAIDs Drug allergy 07-05-19 Unknown [facility] Other (1 source) Aspirin Drug Allergy 02-26-18 90 [facility] (1 source) cyclobenzaprine Drug Allergy 01-10-20 15 [facility] (1 source) Diclofenac Drug Allergy 01-10-20 15 [facility] (1 source) Ibuprofen Drug Allergy 08-04-19 16 [facility] (1 source) NSAIDs Drug allergy (disorder) 01-02-20 14 [facility] (20 sources) Aluminum aspirin Drug Allergy 07-05-19 23 [facility] (20 sources) Amitriptyline Drug Allergy 03-22-19 18 [facility] (20 sources) cyclobenzaprine Drug Allergy 01-24-20 16 [facility] (20 sources) Lamotrigine Allergy to substance 07-05-19 23 [facility] (20 sources) meloxicam Drug Allergy 07-05-19 23 Unknown [facility] (20 sources) Sertraline Drug Allergy 01-01-20 24 [facility] Medications Current Medications Medication Drug [...] 20 tablet 1 09/24/2023 11/28/2023 Discontinued (Other) [id number] 200 actuat albuterol 0.09 mg/actuat metered dose [...] Facility OB BPP W NON-STRESS on 04-29-2024 [place] [address] Ultrasound Report Signed Patient: TIKI MOELLER MR#: [id number] : 1985 Acct:[id number] Age/Sex: 38 / F ADM Date: 04/29/24 Loc: [facility] 250-[address]: Veda Sarmiento Ordering Physician: Veda Sarmiento Date of Service: 04/29/24 Procedure(s): US OB BPP w non-stress Accession Number(s): [id number] cc: Veda Sarmiento; YSABEL CABRAL [place] [id number] Patient Name: TIKI MOELLER MRN: [facility]:[id number] date: 1985 Sex: F Assigned Patient Location: [facility] Current Patient Location: [facility] Accession/Order Number: [id number] Exam Date: 04/29/2024 16:11 Report Date: 04/29/2024 16:12 At the request of: VEDA SARMIENTO Procedure: US OB BPP w non-stress Biophysical profile. Reason for exam: Advanced maternal age. COMPARISON: BPP 04/22/2024 TECHNIQUE: Transabdominal imaging of the gravid uterus was obtained. FINDINGS: Ehs Teacher reports the biophysical profile is 8 out of 8. JT is normal at 17.9 cm. heart rate 129bpm. US/US OB BPP w non-stress IMPRESSION: BPP 8 out of 8. Impression dictated by: Alexei Ibrahim Jr., D.O.04/29/2024 4:12 PM Dictation Location: [place] [address] Electronically authenticated by: [id number] Y Date: 04/29/2024 16:12 Dictated By: Alexei Ibrahim M.D. Signed By: 04/29/244 DD/ 11 TD/TT: Independent Jeweler: [facility] Radiology, Radiologist, MD - 04/29/2024 [place] [address] Ultrasound Report Signed Patient: TIKI MOELLER MR#: [id number] : 1985 Acct:[id number] Age/Sex: 38 / F ADM Date: 04/29/24 Loc: [facility] 250- Attending Dr: Veda Sarmiento Ordering Physician: Veda Sarmiento Date of Service: 04/29/24 Procedure(s): US OB BPP w non-stress Accession Number(s): [id number] cc: Veda Sarmiento; YSABEL CABRAL [address] [address] Patient Name: TIKI MOELLER MRN: [facility]:[id number] date: 1985 Sex: F Assigned Patient Location: [facility] Current Patient Location: [facility] Accession/Order Number: [id number] Exam Date: 04/29/2024 16:11 Report Date: 04/29/2024 16:12 At the request of: VEDA SARMIENTO Procedure: US OB BPP w non-stress Biophysical profile. Reason for exam: Advanced maternal age. COMPARISON: BPP 04/22/2024 TECHNIQUE: Transabdominal imaging of the gravid uterus was obtained. FINDINGS: Ehs Teacher reports the biophysical profile is 8 out of 8. JT is normal at 17.9 cm. heart rate 129bpm. US/US OB BPP w non-stress IMPRESSION: BPP 8 out of 8. Impression dictated by: Alexei Ibrahim Jr., D.O.04/29/2024 4:12 PM Dictation Location[facility] Electronically authenticated by: [id number] Y Date: 04/29/2024 16:12 Dictated By: Alexei Ibrahim M.D. Signed By: 04/29/244 DD/ 11 TD/TT: Independent Jeweler: [facility] Radiology Study observation (narrative) [facility] US OB BPP W NON-STRESS Ordered By: Radiologist Radiology on 04-29-2024 [facility] Work Phone: Urinalysis macro (dipstick) panel (U)on 04-29-2024 Bilirubin, UA Negative Negative - 4(70) +++ mg/dL [facility] Blood, UA Negative Negative - 50 Armand/mcL [facility] Clarity, UA Clear [facility] Color, UA Yellow [facility] Glucose, UA Negative Negative - 2000(110) ++++ mg/dL [facility] Interpretation and review of laboratory results Abnormal [facility] Ketones, UA Negative Negative - 160(16) ++++ mg/dL [facility] Leukocytes, UA Trace Negative - 500+++ Doe/mcL [facility] Nitrite, UA Negative Negative - Positive [facility] pH, UA 7 5 - 9 [facility] Protein, UA Positive Negative - 2000(20) ++++ mg/dL [facility] Comment on above: 30mg/dL Spec Grav, UA 1.02 1 - 1.03 [facility] Urobilinogen, UA 1.0 0.2 - 12 mg/dL [facility] US OB BPP W NON-STRESS on 04-22-[address] [address] Ultrasound Report Signed Patient: TIKI MOELLER MR#: [id number] : 1985 Acct:[id number] Age/Sex: 38 / F ADM Date: 04/22/24 Loc: US Attending Dr: Veda Sarmiento Ordering Physician: Veda Sarmiento Date of Service: 04/22/24 Procedure(s): US OB BPP w non-stress Accession Number(s): [id number] cc: Veda Sarmiento; YSABEL CABRAL [place] [address] Patient Name: TIKI MOELLER MRN: [facility]:[id number] date: 1985 Sex: F Assigned Patient Location: [facility] Current Patient Location: Accession/Order Number: [id number] Exam Date: 04/22/2024 23:02 Report Date: 04/22/2024 23:05 At the request of: VEDA SARMIENTO Procedure: US OB BPP w non-stress Biophysical profile. Reason for exam: Advanced maternal age. COMPARISON: BPP 04/15/2024. TECHNIQUE: Transabdominal imaging of the gravid uterus was obtained. FINDINGS: Ehs Teacher reports the biophysical profile is 8 out of 8. JT is normal at 13.9 cm. heart rate 156 bpm. US/US OB BPP w non-stress IMPRESSION: BPP 8 out of 8. Impression dictated by: Alexei Ibrahim Jr., D.O.04/22/2024 11:05 PM Dictation Location: [place] [address] Electronically authenticated by: [id number] Y Date: 04/22/2024 23:05 Dictated By: Alexei Ibrahim M.D. Signed By: 04/22/242307 DD/ 04 TD/TT: Independent Jeweler: [facility] Radiology, Radiologist, - 04/22/2024 The [place] [id number] Ultrasound Report Signed Patient: TIKI MOELLER MR#: [id number] : 1985 Acct:[id number] Age/Sex: 38 / F ADM Date: 04/22/24 Loc: US Attending Dr: Veda Sarmiento Ordering Physician: Veda Sarmiento Date of Service: 04/22/24 Procedure(s): US OB BPP w non-stress Accession Number(s): [id number] cc: Veda Sarmiento; YSABEL CABRAL [place] [id number] Patient Name: TIKI MOELLER MRN: [id number] date: 1985 Sex: F Assigned Patient Location: [facility] Current Patient Location: Accession/Order Number: [id number] Exam Date: 04/22/2024 23:02 Report Date: 04/22/2024 23:05 At the request of: VEDA SARMIENTO Procedure: US OB BPP w non-stress Biophysical profile. Reason for exam: Advanced maternal age. COMPARISON: BPP 04/15/2024. TECHNIQUE: Transabdominal imaging of the gravid uterus was obtained. FINDINGS: Ehs Teacher reports the biophysical profile is 8 out of 8. JT is normal at 13.9 cm. heart rate 156 bpm. US/US OB BPP w non-stress IMPRESSION: BPP 8 out of 8. Impression dictated by: Alexei Ibrahim Jr., D.O.04/22/2024 11:05 PM Dictation Location: [place] [address] Electronically authenticated by: [id number] Y Date: 04/22/2024 23:05 Dictated By: Alexei Ibrahim M.D. Signed By: 04/22/242307 DD/ 04 TD/TT: Independent Jeweler: [facility] Radiology Study observation (narrative) [facility] US OB BPP W NON-STRESS Ordered By: Radiologist Radiology on 04-22-2024 [facility] [employer] Work Phone: US OB BPP W NON-STRESS on 04-15-[address] [address] Ultrasound Report Signed Patient: TIKI MOELLER MR#: [id number] : 1985 Acct:[id number] Age/Sex: 38 / F ADM Date: 04/15/24 Loc: [facility] 250-[address]: Raghavendra Vasquez D.O. Ordering Physician: Raghavendra Vasquez D.O. Date of Service: 04/15/24 Procedure(s): US OB BPP w non-stress Accession Number(s): [id number] cc: YSABEL CABRAL ; Raghavendra Vasquez D.O. [place] [address] Patient Name: TIKI MOELLER MRN: [facility]:[id number] date: 1985 Sex: F Assigned Patient Location: [facility] Current Patient Location: [facility] Accession/Order Number: [id number] Exam Date: 04/15/2024 16:26 Report Date: 04/15/2024 16:31 At the request of: RAGHAVENDRA VASQUEZ DO Procedure: US OB BPP w non-stress BIOPHYSICAL PROFILE: CLINICAL INFORMATION: Multigravida of advanced maternal age TECHNIQUE: Multiple ultrasonographic scans of the lower abdomen and pelvis were obtained. The fetus is in the cephalic presentation. The measurements are consistent with a 33 week 3 day gestation. The heart rate [id number] beats per minute. FINDINGS: TONE: 1 or [...] Shelli Mcghee M.D.04/15/2024 4:31 PM Dictation Location: [place] [address] Electronically authenticated by: [id number] Y Date: 04/15/2024 16:31 Dictated By: Shelli Mcghee M.D. Signed By: 04/15/24 163 DD/ 1631 TD/TT: Independent Jeweler: [facility] Radiology, Radiologist, - 04/15/2024 [place] [address] Ultrasound Report Signed Patient: TIKI MOELLER MR#: [id number] : 1985 Acct:[id number] Age/Sex: 38 / F ADM Date: 04/15/24 Loc: [facility] 250-[address]: Raghavendra Vasquez D.O. Ordering Physician: Raghavendra Vasquez D.O. Date of Service: 04/15/24 Procedure(s): US OB BPP w non-stress Accession Number(s): [id number] cc: YSABEL CABRAL ; Raghavendra Vasquez D.O. The [place] [address] Patient Name: TIKI MOELLER MRN: [facility]:[id number] date: 1985 Sex: F Assigned Patient Location: [facility] Current Patient Location: [facility] Accession/Order Number: [id number] Exam Date: 04/15/2024 16:26 Report Date: 04/15/2024 16:31 At the request of: RAGHAVENDRA VASQUEZ DO Procedure: US OB BPP w non-stress BIOPHYSICAL PROFILE: CLINICAL INFORMATION: Multigravida of advanced maternal age TECHNIQUE: Multiple ultrasonographic scans of the lower abdomen and pelvis were obtained. The fetus is in the cephalic presentation. The measurements are consistent with a 33 week 3 day gestation. The heart rate [id number] beats per minute. FINDINGS: TONE: 1 or [...] Shelli Mcghee M.D.04/15/2024 4:31 PM Dictation Location: [place] [address] Electronically authenticated by: [id number] Y Date: 04/15/2024 16:31 Dictated By: Shelli Mcghee M.D. Signed By: 04/15/24 163 DD/ 1631 TD/TT: Independent Jeweler: [facility] Radiology Study observation (narrative) [facility] US OB BPP W NON-STRESS Ordered By: Radiologist Radiology on 04-15-2024 [facility] Work Phone: US OB GROWTHon 04-15-2024 [place] [address] Ultrasound Report Signed Patient: TIKI MOELLER MR#: [id number] : 1985 Acct:[id number] Age/Sex: 38 / F ADM Date: 04/15/24 Loc: [place] [address]: Raghavendra Vasquez D.O. Ordering Physician: Raghavendra Vasquez D.O. Date of Service: 04/15/24 Procedure(s): US OB growth Accession Number(s): [id number] cc: YSABEL CABRAL Corey D.O. [place] [id number] Patient Name: TIKI MOELLER MRN: [id number] date: 1985 Sex: F Assigned Patient Location: [facility] Current Patient Location: [facility] Accession/Order Number: [id number] Exam Date: 04/15/2024 16:31 Report Date: 04/15/2024 [...] Shelli Mcghee M.D.04/15/2024 4:37 PM Dictation Location: [place] [address] Electronically authenticated by: [id number] Y Date: 04/15/2024 16:37 Dictated By: Shelli Mcghee M.D. Signed By: 04/15/24 1640 DD/ 1637 TD/TT: Independent Jeweler: [facility] Radiology, Radiologist, - 04/15/2024 [place] [address] Ultrasound Report Signed Patient: TIKI MOELLER MR#: [id number] : 1985 Acct:[id number] Age/Sex: 38 / F ADM Date: 04/15/24 Loc: [place] [address]: Raghavendra Vasquez D.O. Ordering Physician: Raghavendra Vasquez D.O. Date of Service: 04/15/24 Procedure(s): US OB growth Accession Number(s): [id number] cc: YSABEL CABRAL ; Raghavendra Vasquez D.O. The [place] [address] Patient Name: TIKI MOELLER MRN: [facility]:[id number] date: 1985 Sex: F Assigned Patient Location: [facility] Current Patient Location: [facility] Accession/Order Number: [id number] Exam Date: 04/15/2024 16:31 Report Date: 04/15/2024 [...] Shelli Mcghee M.D.04/15/2024 4:37 PM Dictation Location: [facility] Electronically authenticated by: [id number] Y Date: 04/15/2024 16:37 Dictated By: Shelli Mcghee M.D. Signed By: 04/15/24 1640 DD/ 1637 TD/TT: Independent Jeweler: [facility] Radiology Study observation (narrative) [facility] OB GROWTHOrdered By: Liang ologry Radiology on 04-15-2024 [facility] Work Phone: Urinalysis macro (dipstick) panel (U)on 04-08-2024 Bilirubin, UA Negative Negative - 4(70) +++ mg/dL [facility] Blood, UA Negative Negative - 50 Armand/mcL [facility] Clarity, UA Clear [facility] Color, UA Yellow [facility] Glucose, UA Negative Negative - 2000(110) ++++ mg/dL [facility] Interpretation and review of laboratory results Abnormal [facility] Ketones, UA Negative Negative - 160(16) ++++ mg/dL [facility] Leukocytes, UA Negative Negative - 500+++ Doe/mcL [facility] Nitrite, UA Negative Negative - Positive [facility] pH, UA 7 5 - 9 [facility] Protein, UA Trace Negative - 2000(20) ++++ mg/dL [facility] Spec Grav, UA 1.025 1 - 1.03 [facility] Urobilinogen, UA 1.0 0.2 - 12 mg/dL [facility] US OB GROWTHon 03-25-2024 [place] [address] Ultrasound Report Signed Patient: TIKI MOELLER MR#: [id number] : 1985 Acct:[id number] Age/Sex: 38 / F ADM Date: 03/25/24 Loc: US Attending Dr: Raghavendra Vasquez D.O. Ordering Physician: Raghavendra Vasquez D.O. Date of Service: 03/25/24 Procedure(s): US OB growth Accession Number(s): [id number] cc: YSABEL CABRAL ; Raghavendra Vasquez D.O. [place] [address] Patient Name: TIKI MOELLER MRN: [id number] date: 1985 Sex: F Assigned Patient Location: Current Patient Location: US Accession/Order Number: [id number] Exam Date: 03/25/2024 11:02 Report Date: 03/25/2024 [...] Signed By: 03/25/24 1150 DD/ 1147 TD/TT: Independent Jeweler: [facility] Radiology, Radiologist, MD - 03/25/2024 [place] [address] Ultrasound Report Signed Patient: TIKI MOELLER MR#: [id number] : 1985 Acct:[id number] Age/Sex: 38 / F ADM Date: 03/25/24 Loc: US Attending Dr: Raghavendra Vasquez D.O. Ordering Physician: Raghavendra Vasquez D.O. Date of Service: 03/25/24 Procedure(s): US OB growth Accession Number(s): [id number] cc: YSABEL CABRAL ; Raghavendra Vasquez D.O. The [place] [address] Patient Name: TIKI MOELLER MRN: [facility]:[id number] date: 1985 Sex: F Assigned Patient Location: Current Patient Location: US Accession/Order Number: [id number] Exam Date: 03/25/2024 11:02 Report Date: 03/25/2024 [...] Signed By: 03/25/24 1150 DD/ 1147 TD/TT: Independent Jeweler: [facility] Radiology Study observation (narrative) [facility] US OB GROWTHOrdered By: Liang ologry Radiology on 03-25-2024 [facility] Work Phone: Urinalysis macro (dipstick) panel (U)on 03-25-2024 Bilirubin, UA Positive Negative - 4(70) +++ mg/dL [facility] Blood, UA Negative Negative - 50 Armand/mcL [facility] Clarity, UA Clear [facility] Color, UA Yellow [facility] Glucose, UA Negative Negative - 1999(110) ++++ mg/dL [facility] Interpretation and review of laboratory results Abnormal [facility] Ketones, UA Positive Negative - 160(16) ++++ mg/dL [facility] Leukocytes, UA Negative Negative - 500+++ Doe/mcL [facility] Nitrite, UA Positive Negative - Positive [facility] pH, UA 6.5 5 - 9 [facility] Protein, UA Positive Negative - 1999(20) ++++ mg/dL [facility] Spec Grav, UA 1.025 1 - 1.03 [facility] Urobilinogen, UA 1.0 0.2 - 12 mg/dL [facility] Urinalysis macro (dipstick) panel (U)on 03-11-2024 Bilirubin, UA Negative Negative - 4(70) +++ mg/dL [facility] Blood, UA Negative Negative - 50 Armand/mcL [facility] Clarity, UA Clear [facility] Color, UA Yellow [facility] Glucose, UA Negative Negative - 1999(110) ++++ mg/dL [facility] Interpretation and review of laboratory results Abnormal [facility] Ketones, UA Negative Negative - 160(16) ++++ mg/dL [facility] Leukocytes, UA Negative Negative - 500+++ Doe/mcL [facility] Nitrite, UA Negative Negative - Positive [facility] pH, UA 7 5 - 9 [facility] Protein, UA Positive Negative - 2000(20) ++++ mg/dL [facility] Comment on above: 30 Spec Grav, UA 1.025 1 - 1.03 [facility] Urobilinogen, UA 0.2 0.2 - 12 mg/dL [facility] ALL CBC WITH AUTO DIFFon BASOPHILS ABSOLUTE AUTO 0 [facility] Basophils/100 WBC (Bld) 0.2 % 0.2 - 2.0 % [facility] Eosinophils/100 WBC (Bld) 0.6 % Low 0.9 - 7.0 % [facility] Erythrocyte distribution width (RBC) [Ratio] 13 % 11.0 - 15.0 % [facility] Hematocrit (Bld) [Volume fraction] 32.2 % Low 36.0 - 48.0 % [facility] Hemoglobin (Bld) [Mass/Vol] 10.3 g/dL Low 12.0 - 16.0 g/dL [facility] IMMATURE GRANULOCYTES ABS AUTO 0.06 High [facility] Immature granulocytes/100 WBC (Bld) 0.6 % High 0.0 - 0.5 % [facility] Interpretation and review of laboratory results Abnormal [facility] LYMPHOCYTES ABSOLUTE AUTO 1.8 [facility] Lymphocytes/100 WBC (Bld) 19.1 % Low 20.5 - 60.0 % [facility] MCH (RBC) [Entitic mass] 25.9 pg Low 26.7 - 34.0 pg [facility] MCHC (RBC) [Mass/Vol] 32 g/dL 29.9 - 35.2 g/dL [facility] MCV (RBC) [Entitic vol] 81.1 fL 81.0 - 99.0 fL [facility] MONOCYTES ABSOLUTE AUTO 0.5 [facility] Monocytes/100 WBC (Bld) 5.5 % 1.7 - 12.0 % [facility] NEUTROPHILS ABSOLUTE AUTO 7 High [facility] Neutrophils/100 WBC (Bld) 74 % 43.0 - 75.0 % [facility] Platelet mean volume (Bld) [Entitic vol] 10.7 fL 9.5 - 13.5 fL [facility] EO # 0.1 [facility] PLT 238 [facility] RBC 3.97 Low [facility] WBC 9.4 [facility] UA (CLEAN/CATCH) CATERER'S AIDE/LA RO IF IND.on 03-07-2024 BILIRUBIN URINE Negative NEGATIVE [facility] BLOOD URINE Negative NEGATIVE [facility] Clarity (U) CLEAR CLEAR [facility] Color (U) YELLOW YELLOW [facility] GLUCOSE URINE UA Negative NEGATIVE mg/dL [facility] Interpretation and review of laboratory results Abnormal [facility] Ketones Ql (U) TRACE Abnormal NEGATIVE mg/dL [facility] Leukocyte esterase Test strip Ql (U) Negative NEGATIVE [facility] NITRITE URINE Negative NEGATIVE [facility] pH (U) 7.5 [pH] 5.0 - 9.0 [facility] PROTEIN URINE TRACE NEG/TRACE mg/dL [facility] SPECIFIC GRAVITY URINE 1.025 1.005 - 1.025 [facility] URINE MICROSCOPIC INDICATED NO [facility] UROBILINOGEN URINE 1.0 EU/dL 0.2 - 1.0 EU/dL [facility] Urinalysis macro (dipstick) panel (U)on 02-11-2024 Bilirubin, UA Negative Negative - 4(70) +++ mg/dL [facility] Blood, UA Negative Negative - 50 Armand/mcL [facility] Clarity, UA Clear [facility] Color, UA Yellow [facility] Glucose, UA Negative Negative - 1999(110) ++++ mg/dL [facility] Interpretation and review of laboratory results Abnormal [facility] Ketones, UA Negative Negative - 160(16) ++++ mg/dL [facility] Leukocytes, UA Negative Negative - 500+++ Doe/mcL [facility] Nitrite, UA Negative Negative - Positive [facility] pH, UA 7.5 5 - 9 [facility] Protein, UA Trace Negative - 1999(20) ++++ mg/dL [facility] Spec Grav, UA 1.015 1 - 1.03 [facility] Urobilinogen, UA 0.2 0.2 - 12 mg/dL [facility] IGP,APTIMA HPV,AGE GDLNon AGE GDLN ACOG TESTING Note . [facility] Comment on above: TESTS RESULT FLAG UN ITS REF RANGE LAB Clinician Provided Cytology Information Source.............Cervix Other.............. No. of containers..01 ThinPrep Vial Age Brianneo AMNAOG Beverly... 30 FLAG LEGEND: L-Low Normal,H-High Normal,LL-Alert Low,HH-Alert High <-Panic Low,>-Panic High,A-Abnormal,AA-Critical Abnormal Performed at: 01 =G [address] [address] Judith Ventura MD, HPV APTIMA Negative Negative [facility] Comment on above: This nucleic acid am plification test detects fourteen high- risk HPV types (16,18,31,33,35,39,45,51,52,56,58,59,66,68) without differentiation. Performed at: =[address] [id number] Advertising Intern: Judith Ventura MD, Phone: [phone] Performed at: - [address] [id number] Advertising Intern: Judith Ventura MD, Phone: [phone] IGP, APTIMA HPV, RFX 16/18,45 Note . [facility] Comment on above: TESTS RESULT FLAG UN ITS REF RANGE LAB DIAGNOSIS: 02 NEGATIVE FOR INTRAEPITHELIAL LESION OR MALIGNANCY. Specimen adequacy: 02 Satisfactory for evaluation. Endocervical and/or squamous metaplastic cells (endocervical component) are present. Performed by: 02 Ashli Frank Communications Director (ASCP) . 02 Note: Note 02 The [...] <-Panic Low,>-Panic High,A-Abnormal,AA-Critical Abnormal Performed at: [address] [place] [address] Judith Ventura MD, SPATULA-ALONE CERVIX [facility] RECURRENT VAGINITIS (HTRX)on 01-11-2024 ATOPOBIUM VAGINAE 0 [facility] ATOPOBIUM VAGINAE Not detected [facility] BVAB 2,3 (BACTERIAL VAGINOSIS ASSOCIATED BACTERIA 2, 3); MOBILUNCUS SPP 0 [facility] BVAB 2,3 (BACTERIAL VAGINOSIS ASSOCIATED BACTERIA 2, 3); MOBILUNCUS SPP Not detected [facility] LOC ALBICANS, PARAPSILOSIS, TROPICALIS 0 [facility] [facility] LOC ALBICANS, PARAPSILOSIS, TROPICALIS Not detected [facility] LOC GLABRATA 0 [facility] LOC GLABRATA Not detected [facility] LOC KRUSEI 0 [facility] LOC KRUSEI Not detected [facility] CHLAMYDIA TRACHOMATIS 0 [facility] CHLAMYDIA TRACHOMATIS Not detected [facility] GARDNERELLA VAGINALIS 0 [facility] GARDNERELLA VAGINALIS Not detected [facility] MEGASPHAERA (TYPES 1, 2) 0 [facility] MEGASPHAERA (TYPES 1, 2) Not detected [facility] MYCOPLASMA GENITALIUM 0 [facility] MYCOPLASMA GENITALIUM Not detected [facility] NEISSERIA GONORRHOEAE 0 [facility] NEISSERIA GONORRHOEAE Not detected [facility] TRICHOMONAS VAGINALIS 0 [facility] TRICHOMONAS VAGINALIS Not detected [facility] Urinalysis macro (dipstick) panel (U)on 01-10-2024 Bilirubin, UA Negative Negative - 4(70) +++ mg/dL [facility] Blood, UA Negative Negative - 50 Armand/mcL [facility] Clarity, UA Clear [facility] Color, UA Yellow [facility] Glucose, UA Negative Negative - 1999(110) ++++ mg/dL [facility] Interpretation and review of laboratory results Abnormal [facility] Ketones, UA Positive Negative - 160(16) ++++ mg/dL [facility] Leukocytes, UA Negative Negative - 500+++ Doe/mcL [facility] Nitrite, UA Negative Negative - Positive [facility] pH, UA 7 5 - 9 [facility] Protein, UA Negative Negative - 1999(20) ++++ mg/dL [facility] Spec Grav, UA 1.015 1 - 1.03 [facility] Urobilinogen, UA 1.0 0.2 - 12 mg/dL [facility] ALL CBC WITH AUTO DIFFon BASOPHILS ABSOLUTE AUTO 0.0 [facility] Basophils/100 WBC (Bld) 0.2 % 0.2 - 2.0 % [facility] Eosinophils/100 WBC (Bld) 2.3 % 0.9 - 7.0 % [facility] Erythrocyte distribution width (RBC) [Ratio] 12.3 % 11.0 - 15.0 % [facility] Hematocrit (Bld) [Volume fraction] 37.1 % 36.0 - 48.0 % [facility] Hemoglobin (Bld) [Mass/Vol] 12.3 g/dL 12.0 - 16.0 g/dL [facility] IMMATURE GRANULOCYTES ABS AUTO 0.04 High [facility] Immature granulocytes/100 WBC (Bld) 0.4 % 0.0 - 0.5 % [facility] Interpretation and review of laboratory results Abnormal [facility] LYMPHOCYTES ABSOLUTE AUTO 2.7 [facility] Lymphocytes/100 WBC (Bld) 28.4 % 20.5 - 60.0 % [facility] MCH (RBC) [Entitic mass] 28.0 pg 26.7 - 34.0 pg [facility] MCHC (RBC) [Mass/Vol] 33.2 g/dL 29.9 - 35.2 g/dL [facility] MCV (RBC) [Entitic vol] 84.3 fL 81.0 - 99.0 fL [facility] MONOCYTES ABSOLUTE AUTO 0.5 [facility] Monocytes/100 WBC (Bld) 5.0 % 1.7 - 12.0 % [facility] NEUTROPHILS ABSOLUTE AUTO 6.0 [facility] Neutrophils/100 WBC (Bld) 63.7 % 43.0 - 75.0 % [facility] Platelet mean volume (Bld) [Entitic vol] 10.4 fL 9.5 - 13.5 fL [facility] TBH EO # 0.2 [facility] PLT 253 [facility] RBC 4.40 [facility] WBC 9.4 [facility] Urinalysis macro (dipstick) panel (U)on 11-28-2023 Bilirubin, UA Negative Negative - 4(70) +++ mg/dL [facility] Blood, UA Negative Negative - 50 Armand/mcL [facility] Clarity, UA Clear [facility] Color, UA Yellow [facility] Glucose, UA Negative Negative - 1999(110) ++++ mg/dL [facility] Interpretation and review of laboratory results Normal [facility] Ketones, UA Negative Negative - 160(16) ++++ mg/dL [facility] Leukocytes, UA Negative Negative - 500+++ Doe/mcL [facility] Nitrite, UA Negative Negative - Positive [facility] pH, UA 7.0 5 - 9 [facility] Protein, UA Negative Negative - 1999(20) ++++ mg/dL [facility] Spec Grav, UA 1.025 1 - 1.03 [facility] Urobilinogen, UA 1.0 0.2 - 12 mg/dL [facility] URINE CULTURE, ROUTINEon Bacteria identified Cx Nom (U) Urine Culture, Routine [facility] Bacteria identified Cx Nom (U) Culture shows less than 10,000 colony forming units of bacteria per [facility] Bacteria identified Cx Nom (U) milliliter of urine. This colony count is not generally considered [facility] Bacteria identified Cx Nom (U) to be clinically significant. [facility] Bacteria identified Cx Nom (U) [facility] identified [facility] (U) [address] [place] [phone] [facility] Bacteria identified Cx Nom (U) Advertising Intern: Michael Berry PhD, Phone: [phone] [facility] HCG ( test) Ql (U)o n 11-01-2023 Interpretation and review of laboratory results Abnormal [facility] Preg Test, Ur Positive [facility] Urinalysis macro (dipstick) panel (U)on 11-01-2023 Bilirubin, UA Negative Negative - 4(70) +++ mg/dL [facility] Blood, UA Negative Negative - 50 Armand/mcL [facility] Clarity, UA Clear [facility] Color, UA Yellow [facility] Glucose, UA Negative Negative - 1999(110) ++++ mg/dL [facility] Interpretation and review of laboratory results Normal [facility] Ketones, UA Negative Negative - 160(16) ++++ mg/dL [facility] Leukocytes, UA Negative Negative - 500+++ Doe/mcL [facility] Nitrite, UA Negative Negative - Positive [facility] pH, UA 6.0 5 - 9 [facility] Protein, UA Negative Negative - 1999(20) ++++ mg/dL [facility] Spec Grav, UA 1.020 1 - 1.03 [facility] Urobilinogen, UA 0.2 0.2 - [...] [Mass/Vol] 8.9 mg/dL Normal (8.6 - 10.6) [facility] Comment on above: Performed By: #### C BC/2A, ESRCRP, CCP, HBC-M, HBSAG, HCV, CA, MG, RHF, URCA #### [facility] [address] [facility], [phone] CBC, ALB, ALT, AST, ALK AND CREAon 12-18-2022 Albumin [Mass/Vol] 5.0 g/dL Normal (3.5 - 5.0) [facility] Comment on above: Order Comment: FACIL ITY: [facility] [id number] Performed By: #### C BC/2A, ESRCRP, CCP, HBC-M, HBSAG, HCV, CA, MG, RHF, URCA #### [facility] [address] [facility], [phone] ALK PHOS 60 U/L Normal (38 - 126) [facility] Comment on above: Order Comment: FACIL ITY: [facility] [phone] Performed By: #### C BC/2A, ESRCRP, CCP, HBC-M, HBSAG, HCV, CA, MG, RHF, URCA #### [facility] [address] [facility], [id number] ALT [Catalytic activity/Vol] 34 U/L Normal (1 - 35) [facility] Comment on above: Order Comment: FACIL ITY: [facility] [id number] Performed By: #### C BC/2A, ESRCRP, CCP, HBC-M, HBSAG, HCV, CA, MG, RHF, URCA #### [facility] [address] [facility], [id number] AST [Catalytic activity/Vol] 34 U/L Normal (15 - 46) [facility] Comment on above: Order Comment: FACIL ITY: [facility] [phone] Performed By: #### C BC/2A, ESRCRP, CCP, HBC-M, HBSAG, HCV, CA, MG, RHF, URCA #### [facility] [address] [facility], [phone] Creatinine [Mass/Vol] 0.61 mg/dL Normal (0.52 - 1.04) [facility] Comment on above: Order Comment: FACIL ITY: [facility] [id number] Performed By: #### C BC/2A, ESRCRP, CCP, HBC-M, HBSAG, HCV, CA, MG, RHF, URCA #### [facility] [address] [facility], [id number] GFR- AMER 135.1 ML/M1.7 Normal (60.0 - 140.1) [facility] Comment on above: Order Comment: FACIL ITY: [facility] [id number] Performed By: #### C BC/2A, ESRCRP, CCP, HBC-M, HBSAG, HCV, CA, MG, RHF, URCA #### [facility] [address] [facility], [id number] GFR-NON AFRIC-AMER 111.6 ML/M1.7 Normal (60.0 - 115.8) [facility] Comment on above: Order Comment: FACIL ITY: [facility] [id number] Performed By: #### C BC/2A, ESRCRP, CCP, HBC-M, HBSAG, HCV, CA, MG, RHF, URCA #### [facility] [address] [facility], [phone] Hematocrit (Bld) [Volume fraction] 41.5 % Normal (37.0 - 47.0) [facility] Comment on above: Order Comment: FACIL ITY: [facility] [id number] Performed By: #### C BC/2A, ESRCRP, CCP, HBC-M, HBSAG, HCV, CA, MG, RHF, URCA #### [facility] [address] [facility], [phone] Hemoglobin (Bld) [Mass/Vol] 13.5 g/dL Normal (12.0 - 16.0) [facility] Comment on above: Order Comment: FACIL ITY: [facility] [id number] Performed By: #### C BC/2A, ESRCRP, CCP, HBC-M, HBSAG, HCV, CA, MG, RHF, URCA #### [facility] [address] [facility], [address] MCH (RBC) [Entitic mass] 28.7 pg Normal (27.0 - 33.0) [facility] Comment on above: Order Comment: FACIL ITY: [facility] [id number] Performed By: #### C BC/2A, ESRCRP, CCP, HBC-M, HBSAG, HCV, CA, MG, RHF, URCA #### [facility] [address] [facility], [id number] MCHC (RBC) [Mass/Vol] 32.5 g/dL Normal (30.0 - 37.0) [facility] Comment on above: Order Comment: FACIL ITY: [facility] [phone] Performed By: #### C BC/2A, ESRCRP, CCP, HBC-M, HBSAG, HCV, CA, MG, RHF, URCA #### [facility] [address] [facility], [address] MCV (RBC) [Entitic vol] 88.1 fL Normal (81.0 - 99.0) [facility] Comment on above: Order Comment: FACIL ITY: [facility] [id number] Performed By: #### C BC/2A, ESRCRP, CCP, HBC-M, HBSAG, HCV, CA, MG, RHF, URCA #### [facility] [address] [facility], [address] PLT 282 x10^3ul Normal (130 - 400) [facility] Comment on above: Order Comment: FACIL ITY: [facility] [id number] Performed By: #### C BC/2A, ESRCRP, CCP, HBC-M, HBSAG, HCV, CA, MG, RHF, URCA #### [facility] [address] [facility], [address] RBC 4.71 x10^6ul Normal (4.20 - 5.40) [facility] Comment on above: Order Comment: FACIL ITY: [facility] [phone] Performed By: #### C BC/2A, ESRCRP, CCP, HBC-M, HBSAG, HCV, CA, MG, RHF, URCA #### [facility] [address] [facility], [address] WBC 6.47 x10^3ul Normal (3.80 - 10.60) [facility] Comment on above: Order Comment: FACIL ITY: [facility] [id number] Performed By: #### C BC/2A, ESRCRP, CCP, HBC-M, HBSAG, HCV, CA, MG, RHF, URCA #### [facility] [address] [facility], [address] HEP B CORE AB, IGMon 023 HEPATITIS B CORE ANTIBODY, IGM Negative Normal (NEG - NEG) [facility] Comment on above: Performed By: #### C BC/2A, ESRCRP, CCP, HBC-M, HBSAG, HCV, CA, MG, RHF, URCA #### [facility] [address] [facility], [address] HEP B HERACLIO AGon 12-18-2022 HEP B HERACLIO AG Negative Normal (NEG - NEG) [facility] Comment on above: Performed By: #### C BC/2A, ESRCRP, CCP, HBC-M, HBSAG, HCV, CA, MG, RHF, URCA #### [facility] [address] [facility], [address] HEP C ANTIBODYon 12-18-2022 HEPATITIS C ANTIBODY Negative Normal (NEG - NEG) [facility] Comment on above: Performed By: #### C BC/2A, ESRCRP, CCP, HBC-M, HBSAG, HCV, CA, MG, RHF, URCA #### [facility] [address] [facility], [address] MAGNESIUMon 12-18-2022 Magnesium [Mass/Vol] 2.0 mg/dL Normal (1.6 - 2.3) [facility] Comment on above: Performed By: #### C BC/2A, ESRCRP, CCP, HBC-M, HBSAG, HCV, CA, MG, RHF, URCA #### [facility] [address] [facility], [address] RF FACTORon 12-18-2022 RF FACTOR <9 Normal (0 - 12) [facility] Comment on above: Result Comment: RF F ACTOR = LESS THAN 9 IU/ML RF FACTOR MIN. DETECTION = 9 IU/ML. Performed By: #### C BC/2A, ESRCRP, CCP, HBC-M, HBSAG, HCV, CA, MG, RHF, URCA #### [facility] [address] [facility], [address] SED RATE - CRPon 12-18-2022 CRP EXTENDED RANGE 1.40 MG/L Normal (0.00 - 3.20) [facility] Comment on above: Performed By: #### C BC/2A, ESRCRP, CCP, HBC-M, HBSAG, HCV, CA, MG, RHF, URCA #### [facility] [address] [facility], [address] SED RATE WEST. 5 MM/HR Normal (0 - 25) [facility] Comment on above: Performed By: #### C BC/2A, ESRCRP, CCP, HBC-M, HBSAG, HCV, CA, MG, RHF, URCA #### [facility] [address] [facility], [address] URIC ACIDon 12-18-2022 Urate [Mass/Vol] 4.2 mg/dL Normal (2.5 - 6.2) [facility] Comment on above: Performed By: #### C BC/2A, ESRCRP, CCP, HBC-M, HBSAG, HCV, CA, MG, RHF, URCA #### [facility] [address] [facility], [address] PAP ACOG PANEL 2: 30 to 65on 11-16-2021 . . Normal [facility] Comment on above: Result Comment: Perf ormed at: WB Performed By: #### 4 [id number] #### [facility] [address] [place] [address] Dr. Sierra Almonte Age Gdln ACOG Testing -67 Normal [facility] Comment on above: Performed By: #### 4 [id number] #### [facility] [address] [place] [address] Dr. Sierra Almonte DIAGNOSIS: Comment Normal [facility] Comment on above: Result Comment: NEGA TIVE FOR INTRAEPITHELIAL LESION OR MALIGNANCY. Performed at: WB Performed By: #### 4 [id number] #### [facility] [address] [place] [address] Dr. Sierra Almonte HPV Aptima Negative Normal Negative [facility] Comment on above: Result Comment: This nucleic acid amplification test detects fourteen high-risk HPV types (16,18,31,33,35,39,45,51,52,56,58,59,66,68) without differentiation. Performed at: =G Performed By: #### 4 [id number] #### [facility] [address] [place] [address] Dr. Sierra Almonte Methodology: Comment Normal [facility] Comment on above: Result Comment: This liquid based ThinPrep(R) pap test was screened with the use of an image guided system. Performed at: WB Performed By: #### 4 [id number] #### [facility] [address] [place] [address] Dr. Sierra Almonte Note: Comment Normal [facility] Comment on above: Result Comment: The Pap smear is a screening test designed to aid in the detection of premalignant and malignant conditions of the uterine cervix. It is not a diagnostic procedure and should not be used as the sole means of detecting cervical cancer. Both false-positive and false-negative reports do occur. . Performed at: WB Performed By: #### 4 [id number] #### [facility] [address] [place] [address] Dr. Sierra Almonte Performed by: Comment Normal [facility] Comment on above: Result Comment: Alison Nava, Communications Director (ASCP) Performed at: WB Performed By: #### 4 [id number] #### [facility] [address] [place] [address] Dr. Sierra Almonte Specimen adequacy: Comment Normal [facility] Comment on above: Result Comment: Sati sfactory for evaluation. Endocervical and/or squamous metaplastic cells (endocervical component) are present. Performed at: WB Performed By: #### 4 [id number] #### [facility] [address] [place] [address] Dr. Sierra Almonte US Thyroidon 07-14-2021 US [...] by Alexei Smith on 07/14/2021 1000 Normal [facility] Complete Blood Count with Au to Diffon 07-12-2021 Basophils (Bld) [#/Vol] 0.02 10*3/uL Normal 0.00-0.20 [facility] Specialist Comment on above: Performed By: #### C BCAD, RF, VITD, ESR, TSH reflex FT4, CMP, FT4 #### [facility] [address] [place], [place] [id number] Basophils/100 WBC (Bld) 0.3 % Normal [facility] Comment on above: Performed By: #### C BCAD, RF, VITD, ESR, TSH reflex FT4, CMP, FT4 #### [facility] [address] [place], [place] [id number] Eosinophils (Bld) [#/Vol] 0.08 10*3/uL Normal 0.02-0.50 [facility] Comment on above: Performed By: #### C BCAD, RF, VITD, ESR, TSH reflex FT4, CMP, FT4 #### [facility] [address] [place], [place] [id number] Eosinophils/100 WBC (Bld) 1.2 % Normal [facility] Comment on above: Performed By: #### C BCAD, RF, VITD, ESR, TSH reflex FT4, CMP, FT4 #### [facility] [address] [place], [place] [id number] Erythrocyte distribution width (RBC) [Ratio] 13.8 % Normal 11.0-15.0 [facility] Comment on above: Performed By: #### C BCAD, RF, VITD, ESR, TSH reflex FT4, CMP, FT4 #### [facility] [address] [place], [place] [id number] Hematocrit (Bld) [Volume fraction] 39.6 % Normal 35.0-47.0 [facility] Special[facility] Comment on above: Performed By: #### C BCAD, RF, VITD, ESR, TSH reflex FT4, CMP, FT4 #### [facility] [address] [place], [place] [id number] Hemoglobin (Bld) [Mass/Vol] 12.9 g/dL Normal 11.6-15.5 [facility] Special[facility] Comment on above: Performed By: #### C BCAD, RF, VITD, ESR, TSH reflex FT4, CMP, FT4 #### [facility] [address] [place], [place] [id number] Lymphocytes (Bld) [#/Vol] 1.3 10*3/uL Normal 0.9-3.9 [facility] Comment on above: Performed By: #### C BCAD, RF, VITD, ESR, TSH reflex FT4, CMP, FT4 #### [facility] [address] [place], [place] [id number] Lymphocytes/100 WBC (Bld) 20.3 % Normal [facility] Comment on above: Performed By: #### C BCAD, RF, VITD, ESR, TSH reflex FT4, CMP, FT4 #### [facility] [address] [place], [place] [id number] MCH (RBC) [Entitic mass] 28.3 pg Normal 27.0-33.0 [facility] Comment on above: Performed By: #### C BCAD, RF, VITD, ESR, TSH reflex FT4, CMP, FT4 #### [facility] [address] [place], [place] [id number] MCHC (RBC) [Mass/Vol] 32.6 g/dL Normal 32.0-36.0 [facility] Comment on above: Performed By: #### C BCAD, RF, VITD, ESR, TSH reflex FT4, CMP, FT4 #### [facility] [address] [place], [place] [id number] MCV (RBC) [Entitic vol] 87 fL Normal 80-100 [facility] Comment on above: Performed By: #### C BCAD, RF, VITD, ESR, TSH reflex FT4, CMP, FT4 #### [facility] [address] [place], [place] [id number] Monocytes (Bld) [#/Vol] 0.4 10*3/uL Normal 0.2-0.9 [facility] Comment on above: Performed By: #### C BCAD, RF, VITD, ESR, TSH reflex FT4, CMP, FT4 #### [facility] [address] [place], [place] [id number] Monocytes/100 WBC (Bld) 5.8 % Normal [facility] Comment on above: Performed By: #### C BCAD, RF, VITD, ESR, TSH reflex FT4, CMP, FT4 #### [facility] [address] [place], [place] [id number] Neutrophils (Bld) [#/Vol] 4.7 10*3/uL Normal 1.5-7.8 [facility] Comment on above: Performed By: #### C BCAD, RF, VITD, ESR, TSH reflex FT4, CMP, FT4 #### [facility] [address] [place], [place] [id number] Neutrophils/100 WBC (Bld) 72.1 % Normal [facility] Comment on above: Performed By: #### C BCAD, RF, VITD, ESR, TSH reflex FT4, CMP, FT4 #### [facility] [address] [place], [place] [id number] Platelet mean volume (Bld) [Entitic vol] 11.00 fL Normal 7.50-12.50 [facility] Comment on above: Performed By: #### C BCAD, RF, VITD, ESR, TSH reflex FT4, CMP, FT4 #### [facility] [address] [place], [place] [id number] Platelets (Bld) [#/Vol] 271 10*3/uL Normal 140-400 [facility] Comment on above: Performed By: #### C BCAD, RF, VITD, ESR, TSH reflex FT4, CMP, FT4 #### [facility] [address] [place], [place] [id number] RBC (Bld) [#/Vol] 4.56 10*6/uL Normal 3.90-5.20 [facility] [employer] Comment on above: Performed By: #### C BCAD, RF, VITD, ESR, TSH reflex FT4, CMP, FT4 #### [facility] [address] [place], [place] [id number] RDW-SD 43.5 fL Normal 37.0-50.0 [facility] Comment on above: Performed By: #### C BCAD, RF, VITD, ESR, TSH reflex FT4, CMP, FT4 #### [facility] [address] [place], [place] [id number] WBC (Bld) [#/Vol] 6.5 10*3/uL Normal 3.8-11.0 [facility] [employer] Comment on above: Performed By: #### C BCAD, RF, VITD, ESR, TSH reflex FT4, CMP, FT4 #### [facility] [address] [place], [place] [id number] [facility] 07-12-2021 Albumin [Mass/Vol] 4.9 g/dL Normal 3.6-5.1 [facility] [employer] Comment on above: Performed By: #### C BCAD, RF, VITD, ESR, TSH reflex FT4, CMP, FT4 #### [facility] [address] [place], [place] [id number] Albumin/Globulin [Mass ratio] 2.2 {ratio} Normal 1.0-2.5 [facility] [employer] Comment on above: Performed By: #### C BCAD, RF, VITD, ESR, TSH reflex FT4, CMP, FT4 #### [facility] [address] [place], [place] [id number] ALP [Catalytic activity/Vol] 63 U/L Normal 35-119 [facility] Special[facility] Comment on above: Performed By: #### C BCAD, RF, VITD, ESR, TSH reflex FT4, CMP, FT4 #### [facility] [address] [place], [place] [id number] ALT [Catalytic activity/Vol] 26 U/L Normal 6-33 [facility] [employer] Comment on above: Result Comment: 01/26 Female reference range changed. Performed By: #### C BCAD, RF, VITD, ESR, TSH reflex FT4, CMP, FT4 #### [facility] [address] [place], [place] [id number] Anion gap [Moles/Vol] 18 mmol/L Normal 12-20 [facility] Comment on above: Result Comment: Effe ctive 03/03/2019 reference range changed. Performed By: #### C BCAD, RF, VITD, ESR, TSH reflex FT4, CMP, FT4 #### [facility] [address] [place], [place] [id number] AST [Catalytic activity/Vol] 26 U/L Normal 9-34 [facility] Comment on above: Performed By: #### C BCAD, RF, VITD, ESR, TSH reflex FT4, CMP, FT4 #### [facility] [address] [place], [place] [id number] BUN/CREA 10 Ratio Normal 6-22 [facility] Comment on above: Performed By: #### C BCAD, RF, VITD, ESR, TSH reflex FT4, CMP, FT4 #### [facility] [address] [place], [place] [id number] Calcium [Mass/Vol] 10.0 mg/dL Normal 8.6-10.2 [facility] Comment on above: Performed By: #### C BCAD, RF, VITD, ESR, TSH reflex FT4, CMP, FT4 #### [facility] [address] [place], [place] [id number] Chloride [Moles/Vol] 105 mmol/L Normal 98-107 [facility] Comment on above: Performed By: #### C BCAD, RF, VITD, ESR, TSH reflex FT4, CMP, FT4 #### [facility] [address] [place], [place] [id number] CO2 [Moles/Vol] 21 mmol/L Normal 20-31 [facility] Comment on above: Performed By: #### C BCAD, RF, VITD, ESR, TSH reflex FT4, CMP, FT4 #### [facility] [address] [place], [place] [id number] Creatinine [Mass/Vol] 0.6 mg/dL Normal 0.6-1.4 [facility] Comment on above: Performed By: #### C BCAD, RF, VITD, ESR, TSH reflex FT4, CMP, FT4 #### [facility] [address] [place], [place] [id number] eGFRAA 132 mL/min/1.73m2 Normal >60 [facility] Comment on above: Performed By: #### C BCAD, RF, VITD, ESR, TSH reflex FT4, CMP, FT4 #### [facility] [address] [place], [place] [id number] eGFRNAA 109 mL/min/1.73m2 Normal >60 [facility] Comment on above: Performed By: #### C BCAD, RF, VITD, ESR, TSH reflex FT4, CMP, FT4 #### [facility] [address] [place], [place] [id number] Globulin (S) [Mass/Vol] 2.2 g/dL Normal 1.9-3.7 [facility] Comment on above: Performed By: #### C BCAD, RF, VITD, ESR, TSH reflex FT4, CMP, FT4 #### [facility] [address] [place], [place] [id number] Glucose [Mass/Vol] 86 mg/dL Normal 65-99 [facility] Comment on above: Result Comment: For FASTING Glucose --- ADA reference ranges: Normal 65-99 mg/dl Prediabetes 100-125 Diabetes >/= 126 Performed By: #### C BCAD, RF, VITD, ESR, TSH reflex FT4, CMP, FT4 #### [facility] [address] [place], [place] [id number] Potassium [Moles/Vol] 4.1 mmol/L Normal 3.5-5.5 [facility] Comment on above: Performed By: #### C BCAD, RF, VITD, ESR, TSH reflex FT4, CMP, FT4 #### [facility] [address] [place], [place] [id number] Protein [Mass/Vol] 7.1 g/dL Normal 6.1-8.1 [facility] [place] [employer] Comment on above: Performed By: #### C BCAD, RF, VITD, ESR, TSH reflex FT4, CMP, FT4 #### [facility] [address] [place], [place] [id number] Sodium [Moles/Vol] 140 mmol/L Normal 135-146 [facility] [place] [employer] Comment on above: Performed By: #### C BCAD, RF, VITD, ESR, TSH reflex FT4, CMP, FT4 #### [facility] [address] [place], [place] [id number] TBIL <0.3 Normal [facility] Comment on above: Performed By: #### C BCAD, RF, VITD, ESR, TSH reflex FT4, CMP, FT4 #### [facility] [address] [place], [place] [id number] Urea nitrogen [Mass/Vol] 7 mg/dL Normal 7-25 [facility] [employer] Comment on above: Performed By: #### C BCAD, RF, VITD, ESR, TSH reflex FT4, CMP, FT4 #### [facility] [address] [place], [place] [id number] Free T4on 07-12-2021 Free T4 [Mass/Vol] 0.93 ng/dL Normal 0.80-1.80 [place] [facility] [employer] Comment on above: Performed By: #### C BCAD, RF, VITD, ESR, TSH reflex FT4, CMP, FT4 #### [facility] [address] [place], [place] [id number] Q - PASQUALE SCREEN IFA W/RFL TIT ER AND PATTERNon 07-12-2021 PASQUALE SCREEN, IFA Negative Normal NEGATIVE [facility] [employer] Comment on above: Order Comment: [facility] performed at: [employer], [address], [address] [place] [address], [place], [address], Commissioning Editor: Leonard Turpin MD [facility] Date/Time: [facility] [...] AC-0: Negative International Consensus on PASQUALE Patterns (https://doi.org/10.1515/udwa-2003-5765) For additional information, please refer to http://education.TGV Software/faq/FWE655 (This link is being provided for informational/ educational purposes only.) Performed By: #### 2 49 #### [facility] Default [address] [place] [id number] RBC Sedimentation Rateon ESR (Bld) [Velocity] 8.00 mm/h Normal 0.00-20.00 [facility] Comment on above: Performed By: #### C BCAD, RF, VITD, ESR, TSH reflex FT4, CMP, FT4 #### [facility] [address] [place], [place] [id number] Rheumatoid Factoron 07-13-19 22 RF <10 Normal [facility] Comment on above: Performed By: #### C BCAD, RF, VITD, ESR, TSH reflex FT4, CMP, FT4 #### [facility] [address] [place], [place] [id number] TSH w/ Reflex to Free T4on 0 07-12-2021 TSH 0.321 uIU/mL Low 0.400-4.500 [facility] [employer] Comment on above: Performed By: #### C BCAD, RF, VITD, ESR, TSH reflex FT4, CMP, FT4 #### [facility] [address] [place], [place] [id number] Vitamin D 25-OHon 07-12-2021 VIT D 25 OH 19 ng/ml Low >29 [facility] [employer] Comment on above: Result Comment: Ade min D Status Deficiency <20 ng/mL Insufficiency 20-29 ng/mL Optimal 30-100 ng/mL Possible Toxicity >=150 ng/mL Performed By: #### C BCAD, RF, VITD, ESR, TSH reflex FT4, CMP, FT4 #### [facility] [address] [place], [place] [id number] Comprehensive Metabolic Empo n 04-11-2021 Albumin [Mass/Vol] 4.6 g/dL Normal 3.2-5.5 [facility] Comment on above: Performed By: #### E BS CMP, EBS LIPID #### [facility] [address] [id number] [facility] Albumin/Globulin [Mass ratio] 1.9 {ratio} Normal [facility] Comment on above: Performed By: #### E BS CMP, EBS LIPID #### [facility] [address] [place] [address] [place] ALP [Catalytic activity/Vol] 43 U/L Normal 32-92 [facility] Comment on above: Performed By: #### E BS CMP, EBS LIPID #### [facility] [address] [id number] [place] ALT [Catalytic activity/Vol] 17 U/L Normal 10-60 [facility] Comment on above: Performed By: #### E BS CMP, EBS LIPID #### [facility] [address] [id number] [place] AST [Catalytic activity/Vol] 20 U/L Normal 10-42 [facility] Comment on above: Performed By: #### E BS CMP, EBS LIPID #### [facility] [address] [id number] [place] Bilirubin [Mass/Vol] 1.1 mg/dL Normal 0.3-1.2 [facility] Comment on above: Performed By: #### E BS CMP, EBS LIPID #### [facility] [address] [id number] [place] Calcium [Mass/Vol] 9.6 mg/dL Normal 8.2-10.2 [facility] Comment on above: Performed By: #### E BS CMP, EBS LIPID #### [facility] [address] [id number] [place] Chloride [Moles/Vol] 102 mmol/L Normal 95-114 [facility] Comment on above: Performed By: #### E BS CMP, EBS LIPID #### [facility] [address] CO2 [Moles/Vol] 21.4 mmol/L Low 22.0-30.[address] [facility] Comment on above: Performed By: #### E BS CMP, EBS LIPID #### [facility] [address] Creatinine [Mass/Vol] 0.71 mg/dL Normal 0.44-1.03 [facility] Comment on above: Performed By: #### E BS CMP, EBS LIPID #### [address] Estimated GFR ( Michelle > 60 Normal [facility] Comment on above: Result Comment: GFR estimated reference range: According to KDOQI guidelines, <60 ml/min/1.73m2 is sufficient to diagnose a patient with chronic kidney disease. Performed By: #### E BS CMP, EBS LIPID #### [address] Estimated GFR (Non- Am > 60 Normal [facility] Comment on above: Performed By: #### E BS CMP, EBS LIPID #### [address] Globulin (S) [Mass/Vol] 2.4 g/dL Normal [facility] Comment on above: Performed By: #### E BS CMP, EBS LIPID #### [facility] [address] [place] [address] [place] Glucose [Mass/Vol] 76 mg/dL Normal 70-100 [facility] Comment on above: Performed By: #### E BS CMP, EBS LIPID #### [facility] [address] [place] [address] [place] Potassium [Moles/Vol] 3.3 mmol/L Low 3.5-5.1 [facility] Comment on above: Performed By: #### E BS CMP, EBS LIPID #### [facility] [address] [place] [address] Protein [Mass/Vol] 7.0 g/dL Normal 6.1-7.9 [facility] Comment on above: Performed By: #### E BS CMP, EBS LIPID #### [facility] [address] Sodium [Moles/Vol] 136 mmol/L Normal 136-146 [facility] Comment on above: Performed By: #### E BS CMP, EBS LIPID #### [facility] [address] [place] [address] [place] Urea nitrogen [Mass/Vol] 5 mg/dL Low 9-23 [facility] Comment on above: Performed By: #### E BS CMP, EBS LIPID #### [facility] [address] Lipid Profileon 04-11-2021 Cholesterol [Mass/Vol] 189 mg/dL Normal 140-200 [facility] Comment on above: Result Comment: Chol less than 200 mg/dl low risk Chol 201-239 mg/dl borderline risk Chol 240 mg/dl and greater high risk Performed By: #### E BS CMP, EBS LIPID #### [facility] [address] Cholesterol in HDL [Mass/Vol] 69 mg/dL Normal 35-85 [facility] Comment on above: Result Comment: HDL CHOL ATP-III CLASSIFICATION Cardiovascular Risk HDL > or equal to 60 mg/dL LOW HDL < 40 mg/dL HIGH Performed By: #### E BS CMP, EBS LIPID #### [facility] [address] Cholesterol.total/C holesterol in HDL [Mass ratio] 2.7 {ratio} Normal <5.0 [facility] Comment on above: Result Comment: PERF ORMED BY: [place] [address] PATHOLOGIST ADMINISTRATIVE EXECUTIVE PAT PETERS M.D. Performed By: #### E BS CMP, EBS LIPID #### [facility] [address] LDL Cholesterol,Calcula shadi 107 mg/dL High 0-100 [facility] Comment on above: Result Comment: LDL ATP III CLASSIFICATION LDL less than 100 mg/dL Optimal LDL 100-129 mg/dL Near or above optimal LDL 130-159 mg/dL Borderline high LDL 160-189 mg/dL High LDL greater than 189 mg/dL Very high Performed By: #### E BS CMP, EBS LIPID #### [facility] [address] Triglyceride w/Reflex 64 mg/dL Normal 35-149 [facility] Comment on above: Result Comment: TRIG ATP III CLASSIFICATION TRIG less than 150 mg/dL Normal TRIG 150-199 mg/dL Borderline high TRIG 200-500 mg/dL High TRIG greater than 500 mg/dL Very high Standard traceable to the Center for Disease Conrtrol and Prevention (CDC) test method. Performed By: #### E BS CMP, EBS LIPID #### [facility] [address] VLDL CHOLESTEROL 12 mg/dL Normal [facility] Comment on above: Performed By: #### E BS CMP, EBS LIPID #### [facility] [address] Covid-19 PCR (CVDTB)on SARS-CoV-2 (COVID-19) RNA ERIC+probe Ql (Unsp spec) Detected Critically abnormal NOT DETECTED [facility] Comment on above: Result Comment: This test is not yet approved or cleared by the [place] FDA. When there are no FDA-approved or cleared tests available, and other criteria are met, FDA can make tests available under an emergency access mechanism called an Emergency Use Authorization (EUA). The EUA for this test is supported by the Basketball Coach of Health and Human Service's (HHS's) declaration [...] used). Performed By: #### C VDTBH #### [facility] [address] [address] [address] Sierra Almonte CHLAMYDIA/GONOCOCCUS ERIC (SW AB/URINE/PAPon 12-14-2020 Chlamydia trachomatis, ERIC Negative Normal Negative [facility] Comment on above: Performed By: #### C T/NGNA #### [facility] [address] [place] [address] Dr. Sierra Almonte Neisseria gonorrhoeae, ERIC Negative Normal Negative [facility] Comment on above: Performed By: #### C T/NGNA #### [facility] [address] [address] [address] Sierra Almonte VAGINITIS/VAGINOSIS DNA PROB Andrew 12-11-2020 Loc species Negative Normal Negative [facility] Comment on above: Performed By: #### V AGINT #### [facility] [address] [place] [address] Dr. Sierra Almonte Gardnerella vaginalis Positive Abnormal Negative [facility] Comment on above: Performed By: #### V AGINT #### [facility] [address] [place] [address] Dr. Sierra Almonte Trichomonas vaginalis Negative Normal Negative [facility] Comment on above: Performed By: #### V AGINT #### [facility] [address] [place] [address] Dr. Sierra Almonte Vital Signs Date Time Vital Sign Value Performing Clinician Vladimir lity 05-13-2024 14:50-0400 Body mass index (BMI) [Ratio] 28.84 kg/m2 [facility] Work Phone: [facility] 05-13-2024 14:50-0400 Body weight 73.85 kg Raghavendra Christina DO Work Phone: [facility] 05-13-2024 14:50-0400 Diastolic blood pressure 68 mm[Hg] Raghavendra Christina DO Work Phone: [facility] 05-13-2024 14:50-0400 Systolic blood pressure 106 mm[Hg] Raghavendra Christina [employer] Work Phone: [facility] 04-29-2024 14:44-0500 Body mass index (BMI) [Ratio] 28.72 kg/m2 Raghavendra Christina DO Work Phone: [facility] 04-29-2024 14:44-0500 Body weight 73.54 kg Raghavendra Christina DO Work Phone: [facility] 04-29-2024 14:44-0500 Diastolic blood pressure 70 mm[Hg] Raghavendra Christina DO Work Phone: [facility] 04-29-2024 14:44-0500 Systolic blood pressure 98 mm[Hg] Raghavendra Christina DO Work Phone: [facility] 04-08-2024 11:58-0500 Body mass index (BMI) [Ratio] 28.48 kg/m2 Raghavendra Christina DO Work Phone: [facility] 04-08-2024 11:58-0500 Body weight 72.94 kg Raghavendra Christina DO Work Phone: [facility] 04-08-2024 11:58-0500 Diastolic blood pressure 74 mm[Hg] Raghavendra Christina DO Work Phone: [facility] 04-08-2024 11:58-0500 Systolic blood pressure 110 mm[Hg] Raghavendra Christina DO Work Phone: [facility] 04-02-2024 11:03-0500 Body mass index (BMI) [Ratio] 27.99 kg/m2 Teresa Jo Ann-Nossek [employer]CATERER'S AIDE Work Phone: [facility] 04-02-2024 11:03-0500 Body weight 71.67 kg Teresa Jo Ann-Nossek [employer] M[employer]CATERER'S AIDE Work Phone: [facility] 04-02-2024 11:03-0500 Diastolic blood pressure 72 mm[Hg] Teresa Jo Ann-Nossek [employer]CATERER'S AIDE Work Phone: [facility] 04-02-2024 11:03-0500 Heart rate 105 /min Teresa Jo Nan-Nossek [employer]CATERER'S AIDE Work Phone: [facility] 04-02-2024 11:03-0500 Systolic blood pressure 122 mm[Hg] Teresa LowNosmahendra [employer]CATERER'S AIDE Work Phone: [facility] 03-25-2024 10:19-0500 Body mass index (BMI) [Ratio] 27.63 kg/m2 Raghavendra Christina DO Work Phone: [facility] 03-25-2024 10:19-0500 Body weight 70.76 kg Raghavendra Christina DO Work Phone: [facility] 03-25-2024 10:19-0500 Diastolic blood pressure 68 mm[Hg] Raghavendra Christina DO Work Phone: [facility] 03-25-2024 10:19-0500 Systolic blood pressure 100 mm[Hg] Raghavendra Christina DO Work Phone: [facility] 03-11-2024 10:10-0500 Body mass index (BMI) [Ratio] 27.95 kg/m2 Raghavendra Christina DO Work Phone: [facility] 03-11-2024 10:10-0500 Body weight 71.58 kg Raghavendra Christina DO Work Phone: [facility] 03-11-2024 10:10-0500 Diastolic blood pressure 68 mm[Hg] Raghavendra Christina DO Work Phone: [facility] 03-11-2024 10:10-0500 Systolic blood pressure 104 mm[Hg] Raghavendra Christina DO Work Phone: [facility] 02-13-2024 13:14-0500 Body height 160 cm Emerita Gillmor [employer]CH[employer] MAINTENANCE FOREMAN Work Phone: [facility] 02-13-2024 13:14-0500 Body mass index (BMI) [Ratio] 26.93 kg/m2 Emerita Gillmor [employer]CH[employer] MAINTENANCE [employer]EMAN Work Phone: [facility] 02-13-2024 13:14-0500 Body weight 68.95 kg Emerita Gillmor [employer]CHANICAL MAINTENANCE FOREMAN Work Phone: [facility] 02-13-2024 13:14-0500 Diastolic blood pressure 72 mm[Hg] Emerita Whittakermor MECHANICAL MAINTENANCE FOREMAN Work Phone: [facility] 02-13-2024 13:14-0500 Heart rate 109 /min Emerita Whittakermor MECHANICAL MAINTENANCE FOREMAN Work Phone: [facility] 02-13-2024 13:14-0500 Systolic blood pressure 119 mm[Hg] Emerita Whittakermor MECHANICAL MAINTENANCE FOREMAN Work Phone: [facility] 02-11-2024 10:19-0500 Body mass index (BMI) [Ratio] 27.3 kg/m2 Raghavendra Christina DO Work Phone: [facility] 02-11-2024 10:19-0500 Body weight 71.58 kg Raghavendra Christina DO Work Phone: [facility] 02-11-2024 10:19-0500 Diastolic blood pressure 70 mm[Hg] Raghavendra Christina DO Work Phone: [facility] 02-11-2024 10:19-0500 Systolic blood pressure 120 mm[Hg] Raghavendra Christina DO Work Phone: [facility] 01-10-2024 10:44-0500 Body mass index (BMI) [Ratio] 26.3 kg/m2 Raghavendra Christina DO Work Phone: [facility] 01-10-2024 10:44-0500 Body weight 68.95 kg Raghavendra Christina DO Work Phone: [facility] 01-10-2024 10:44-0500 Diastolic blood pressure 74 mm[Hg] Raghavendra Christina DO Work Phone: [facility] 01-10-2024 10:44-0500 Systolic blood pressure 116 mm[Hg] Raghavendra Christina DO Work Phone: [facility] 01-01-2024 11:40-0500 Body mass index (BMI) [Ratio] 25.78 kg/m2 Teresa Ornelas [employer]CATERER'S AIDE Work Phone: [facility] 01-01-2024 11:40-0500 Body weight 67.59 kg Teresa Buenoor-Nossek [employer]CATERER'S AIDE Work Phone: [facility] 01-01-2024 11:40-0500 Diastolic blood pressure 82 mm[Hg] Teresa Jo Ann-Nossek [employer]CATERER'S AIDE Work Phone: [facility] 01-01-2024 11:40-0500 Heart rate 99 /min Teresa Buenoor-Nossek [employer]CATERER'S AIDE Work Phone: [facility] 01-01-2024 11:40-0500 Systolic blood pressure 100 mm[Hg] Teresa Jo Ann-Nossek [employer]CATERER'S AIDE Work Phone: [facility] 11-28-2023 14:53-0400 Body mass index (BMI) [Ratio] 25.57 kg/m2 Raghavendra Christina DO Work Phone: [facility] 11-28-2023 14:53-0400 Body weight 67.04 kg Raghavendra Christina DO Work Phone: [facility] 11-28-2023 14:53-0400 Diastolic blood pressure 74 mm[Hg] Raghavendra Christina DO Work Phone: [facility] 11-28-2023 14:53-0400 Systolic blood pressure 114 mm[Hg] Raghavendra Christina DO Work Phone: [facility] 11-01-2023 15:16-0400 Body mass index (BMI) [Ratio] 25.6 kg/m2 [facility] 11-01-2023 15:16-0400 Body weight 67.13 kg [facility] 10-18-2023 11:32-0400 Body height 161.9 cm Ysabel Cabral MD Work Phone: [facility] 10-18-2023 11:32-0400 Body mass index (BMI) [Ratio] 26.05 kg/m2 Ysabel Cabral MD Work Phone: [facility] 10-18-2023 11:32-0400 Body weight 68.31 kg Ysabel Cabral MD Work Phone: [facility] 10-18-2023 11:32-0400 Diastolic blood pressure 76 mm[Hg] Ysabel Cabral MD Work Phone: [facility] 10-18-2023 11:32-0400 Heart rate 92 /min Ysabel Cabral MD Work Phone: [facility] 10-18-2023 11:32-0400 Respiratory rate 20 /min Ysabel Cabral MD Work Phone: [facility] Healthcare 10-18-2023 11:32-0400 Systolic blood pressure 122 mm[Hg] Ysabel Cabral MD Work Phone: [facility] Healthcare Encounters Encounter Date Encounter Type Care Provider Facility Start: 05-13-2024 End: 05-13-2024 ambulatory RAGHAVENDRA CHRISTINA Not Available Start: 05-13-2024 End: 05-13-2024 Office outpatient visit 15 minutes Raghavendra Christina DO Work Phone: [facility] Comment on above: 36 weeks gestation o f ; Third trimester Start: 04-29-2024 End: 04-29-2024 ambulatory RAGHAVENDRA CHRISTINA Not Available Start: 04-29-2024 End: 04-29-2024 Bamboo flowsheet Raghavendra Christina DO Work Phone: [facility] Start: 04-29-2024 End: 04-29-2024 Bamboo flowsheet Raghavendra Christina DO Work Phone: [facility] Start: 04-29-2024 End: 04-29-2024 Clinisync Result Encounter Generic External Data Provider [facility] External Department Unsolicited Start: 04-29-2024 End: 04-29-2024 Office outpatient visit 15 minutes Raghavendra Christina DO Work Phone: [facility] Comment on above: Third trimester [...] 04-02-2024 Bamboo flowsheet Teresa Cheri Jo Ann-Nossek [employer]-CATERER'S AIDE Work Phone: [facility] Start: 04-02-2024 End: 04-02-2024 Bamboo flowsheet Teresa Alonzo Jo Ann-Nossek [employer]-CATERER'S AIDE Work Phone: [facility] Start: 04-02-2024 End: 04-02-2024 ambulatory TERESA Cheri JO ANN-NOSSEK Not Available Start: 04-02-2024 End: 04-02-2024 Office outpatient visit 25 minutes Teresa Cheri Jo Ann-Nossek [employer]CATERER'S AIDE Work Phone: [facility] Comment on above: [...] 02-13-2024 End: 02-13-2024 Bamboo flowsheet Emerita Dair MECHANICAL MAINTENANCE FOREMAN [facility] Start: 02-13-2024 End: 02-13-2024 Bamboo flowsheet Emerita Dair MECHANICAL MAINTENANCE FOREMAN [facility] Start: 02-13-2024 End: 02-13-2024 ambulatory EMERITA WARREN Not Available Start: 02-13-2024 End: 02-13-2024 Office outpatient visit 15 minutes Emerita Warren MECHANICAL MAINTENANCE FOREMAN Work Phone: [facility] Comment on above: Intractable chronic [...] 01-01-2024 Bamboo flowsheet Teresa Cheri Jo Ann-Nossek GUM M[employer]ER-CATERER'S AIDE Work Phone: [facility] Start: 01-01-2024 End: 01-01-2024 Bamboo flowsheet Teresa Cheri Jo Ann-Nossek [employer] M[employer]-CATERER'S AIDE Work Phone: [facility] Start: 01-01-2024 End: 01-01-2024 ambulatory TERESA Cheri JO ANN-NOSSEK Not Available Start: 01-01-2024 End: 01-01-2024 Office outpatient visit 25 minutes Teresa Cheri Jo Ann-Nossek [employer] M[employer]-CATERER'S AIDE Work Phone: [facility] Comment on [...] outpatient visit 15 minutes Teresa Alonzo Johnson G[employer] M[employer]ER-CATERER'S AIDE Work Phone: [facility] Comment on [...] 25 minutes Evonne Jaydon DO Work Phone: [facility] Comment on above: Intractable chronic [...] ambulatory DR TALITA DODSON Facility:H1 Start: 05-11-2021 ([facility] C Vac) [facility] Co vid Vaccine Vicky Joe [facility] Start: 05-11-2021 End: 05-11-2021 ambulatory Vicky Joe Other [place] [employer] Other Start: 03-01-2021 End: 03-01-2021 ambulatory CHLOE [...] Data Provider Start: 03-07-2024 [facility] (CLEAN/CATCH) CATERER'S AIDE/MICRO IF IND. Raghavendra Christina DO Work Phone: [...] MG, RHF, URCA #### [facility] [address] [facility], [address] Plan of Treatment Date Care Activity Detail Author Start: 01-09-2027 Screening for malign ant neoplasm of cervix [facility] Start: 06-17-2024 End: 06-17-2024 Patient encounter procedure 06/17/2024 11:30 AM EDT Office Visit [facility] [address] [facility] [address] [place] [address] Teresa Ornelas, [employer] [address] [facility] [address] [place] [address] [facility] Start: 05-20-2024 End: 05-20-2024 Patient encounter procedure 05/20/2024 2:20 PM EDT Routine [facility] [address] [place] [id number] Raghavendra Vasquez, DO [address] [place] [address] [facility] Start: 05-13-2024 End: 05-13-2025 CULTURE, GROUP B STREP WITH SUSCEPTIBLITY CULTURE, GROUP B STREP WITH SUSCEPTIBLITY Lab Routine Third trimester Expected: 05/13/2024, Expires: 05/13/2025 [facility] Work Phone: Comment on above: Expected: 05/13/2024 , Expires: 05/13/2025 Start: 05-13-2024 End: 05-13-2024 Patient encounter procedure 05/13/2024 2:00 PM EDT Routine [facility] [address] [place] [id number] Raghavendra Vasquez, DO [address] [facility] [address] [address] [place], [place] [id number] [facility] Start: 05-06-2024 End: 05-06-2024 [...] AM EST Routine [facility] [address] [place] [phone] Raghavendra Vasquez, DO [address] [facility] [address] [place] [address] [facility] Start: 04-08-2024 End: 10-06-2024 [...] EST Routine [facility] [address] [facility] [place] [phone] Raghavendra Vasquez, DO [address] [place], [place] [id number] [facility] Start: 04-02-2024 End: 04-02-2024 Patient encounter procedure 04/02/2024 11:00 AM EST Office Visit [facility] [address] [facility] [address] [place] [phone] Teresa Ornelas, [facility] [address] [facility] [address] [place] [address] [facility] BH Start: 03-25-2024 End: 03-25-2024 Patient encounter procedure 03/25/2024 10:00 AM EST Routine [facility] [address] [place] [phone] Raghavendra Vasquez, DO [address], [place] [phone] [facility] Start: 03-11-2024 End: 03-11-2024 Patient encounter procedure 03/11/2024 9:40 AM EST Routine [facility] [address] [place] [address] Raghavendra Vasquez, DO [address] [place], [place] [id number] [facility] Start: 02-13-2024 End: 02-13-2024 Patient encounter procedure 02/13/2024 1:00 PM EST Office Visit [facility] [place] [address] [place] [address] Emerita Warren, MECHANICAL MAINTENANCE FOREMAN [address] [place] [place] [email or web address] Start: 02-11-2024 End: 02-10-2025 CBC panel - Blood by Automated count CBC Lab Routine Diabetes mellitus screening Expected: 02/11/2024 (Approximate), Expires: 02/10/2025 [facility] Work Phone: Comment on above: Expected: 02/11/2024 (Approximate), Expires: 02/10/2025 Start: 02-11-2024 End: 02-10-2025 Measurement of glucose 1 hour after glucose challenge for glucose tolerance test Glucose tolerance, 1 hour Lab Routine Diabetes mellitus screening Expected: 02/11/2024 (Approximate), Expires: 02/10/2025 [facility] Comment on above: Expected: 02/11/2024 (Approximate), Expires: 02/10/2025 Start: 02-11-2024 End: 02-10-2025 US for US OB SCAN FOR GROWTH Imaging Routine 23 weeks gestation of Diabetes mellitus screening Expected: 02/11/2024 (Approximate), Expires: 02/10/2025 [facility] Comment on above: Expected: 02/11/2024 (Approximate), Expires: 02/10/2025 Start: 02-11-2024 End: 02-11-2024 Patient encounter procedure 02/11/2024 9:40 AM EST Routine [facility] [address] [facility] [place] [phone] Raghavendra Vasquez, [address] [place] [address] [facility] Start: 01-28-2024 End: 01-28-2024 Professional / ancillary services management 01/28/2024 11:00 AM EST Ancillary Procedure [facility] [address] [place] [address] [facility] Start: 01-10-2024 End: [...] AM EST Routine [facility] [address] [facility] [place] [address] Raghavendra Vasquez DO [address] [facility] [place] [address] [facility] Start: 01-01-2024 End: 01-01-2024 Patient encounter procedure 01/01/2024 11:30 AM EST Office Visit [facility] [address] [facility] [address] [place] [address] Teresa Ornelas, [facility] [address] [facility] [address] [place] [address] [facility] BH Start: 12-18-2023 End: 12-18-2023 Patient encounter procedure 12/18/2023 5:30 PM EDT Office Visit [facility] [place] [address] [place] [phone] Evonne Childress, DO [address] [place] [address] [address] [place] [address] Start: 11-28-2023 End: 11-28-2023 Patient encounter procedure 11/28/2023 2:20 PM EDT Routine [facility] OB [address] [place] [phone] Raghavendra Vasquez DO [address] [facility] [place] [address] [facility] OB Start: 11-27-2023 End: 11-27-2023 Patient encounter procedure 11/27/2023 11:00 AM EDT Office Visit NOMS [facility] [address] [facility] [address] [place] [address] Teresa Ornelas, [employer] AIDE [address] [facility] [address] [place] [address] [facility] Start: 11-01-2023 End: 10-31-2024 ABO/Rh ABO/Rh Lab Routine Missed menses Expected: 11/01/2023 (Approximate), Expires: 10/31/2024 [facility] Comment on above: Expected: 11/01/2023 (Approximate), Expires: 10/31/2024 Start: 11-01-2023 End: 11-01-2023 ambulatory 11/01/2023 2:00 PM EDT Initial [facility] OB [address] [facility] [place] [phone] [facility] OB Start: 11-01-2023 End: 10-31-2024 [...] management 11/01/2023 1:30 PM EDT Ancillary Procedure [facility] [address] [place] [address] [facility] Start: 10-28-2023 Influenza vaccination Influenza Vacc ine (#1) [facility] Start: 10-18-2023 End: 10-18-2023 Patient encounter procedure 10/18/2023 11:40 AM EDT Office Visit [facility] [address] [facility] [place] [phone] Ysabel Cabral MD [address] [facility], [place] [id number] [facility] Start: 10-18-2023 End: 10-18-2023 Patient encounter procedure 10/18/2023 10:30 AM EDT Procedure Visit [facility] [place] [facility] [address] [facility] [address] [place] [address] Evonne Childress, DO [address] [place], [place] [id number] Arrived [facility] Comment on above: Arrived Start: 09-10-2017 Screening for malign ant neoplasm of cervix [facility] Start: 09-10-2008 Screening for malign ant neoplasm of cervix Pap Smear [facility] Bacteria identified in Urine by Culture Urine culture Microbiology Routine Missed menses Ordered: 11/01/2023 [facility] Comment on above: Ordered: 11/01/2023 CBC W Auto Different ial panel - Blood CBC and differential Lab Routine Missed menses Ordered: 11/01/2023 [facility] Comment on above: Ordered: 11/01/2023 CHLAMYDIA TRACHOMATI S (GENITO/STI) CHLAMYDIA TRACHOMATIS (GENITO/STI) Lab Routine STD exposure Ordered: 01/10/2024 [facility] Comment on above: Ordered: 01/10/2024 Cytology Cervical or vaginal smear or scraping study Pap Smear Pathology and Cytology Routine Well woman exam with routine gynecological exam Ordered: 01/10/2024 [facility] Comment on above: Ordered: 01/10/2024 Hemoglobin A1c/Hemoglobin.total in Blood Hemoglobin A1c Lab Routine Missed menses Ordered: 11/01/2023 [facility] Comment on above: Ordered: 11/01/2023 Hepatitis B virus surface Ag [Presence] in Serum or Plasma by Immunoassay Hepatitis B surface antigen Lab Routine Missed menses Ordered: 11/01/2023 [facility] Comment on above: Ordered: 11/01/2023 Hepatitis C virus Ab [Presence] in Serum or Plasma by Immunoassay Hepatitis C antibody Lab Routine Missed menses Ordered: 11/01/2023 [facility] Comment on above: Ordered: 11/01/2023 HIV-1/HIV-2 antigen/antibody combination immunoassay HIV-1 and HIV-2 antibodies Lab Routine Missed menses Ordered: 11/01/2023 [facility] Comment on above: Ordered: 11/01/2023 Human papilloma viru s DNA [Presence] in Unspecified specimen by Probe with amplification HPV DNA probe, amplified Microbiology Routine Well woman exam with routine gynecological exam Ordered: 01/10/2024 [facility] Comment on above: Ordered: 01/10/2024 Neisseria gonorrhoea e DNA [Presence] in Unspecified specimen by ERIC with probe detection Neisseria gonorrhea DNA probe, direct Lab Routine STD exposure Ordered: 01/10/2024 [facility] Comment on above: Ordered: 01/10/2024 Reagin Ab [Presence] in Serum by RPR RPR Lab Routine Missed menses Ordered: 11/01/2023 [facility] Comment on above: Ordered: 11/01/2023 Rubella antibody, IgG Rubella an tibody, IgG Lab Routine Missed menses Ordered: 11/01/2023 [facility] Comment on above: Ordered: 11/01/2023 SURESWAB(R) ADVANCED VAGINITIS PLUS, TMA SURESWAB(R) ADVANCED VAGINITIS PLUS, TMA Pathology and Cytology Routine Vaginal discharge Ordered: 01/10/2024 [facility] Work Phone: Comment on above: Ordered: 01/10/2024 Immunizations Immunization Date Immunization Notes Care Provider Corrina hanson 05-11-2021 COVID-19 En Joe Other [employer] Other 10-02-2016 influenza, injectabl e, quadrivalent, preservative free Evonne Jaydon DO Work Phone: [facility] 10-02-2016 influenza virus vaccine, unspecified formulation Evonne Jaydon DO Work Phone: [facility] 10-13-2015 influenza, injectabl e, quadrivalent, preservative free Evonne Jaydon DO Work Phone: [facility] 12-02-2014 influenza, seasonal, injectable, preservative free Evonne Jaydon DO Work Phone: [facility] Healthcare Payers Date Payer Category Payer Medicaid [employer] [employer] [id number] 2021-Present [address] [place] [id number] 2021 Medicaid (Managed Care) [employer] [id number] 1987 Unknown [id number] 2.840.1.414547.3.579.2. 593 1987 Unknown [id number] 2.840.1.085757.3.579.2. 593 1987 Unknown [id number] 2.840.1.982008.3.579.2. 593 1987 Unknown [id number] 2.840.1.725865.3.579.2. 1259 1987 Unknown [id number] 2.840.1.399356.3.579.2. 1258 1987 Unknown [id number] 2..840.1.895166.3.579.2. 1258 1987 Unknown [id number] 2..840.1.833203.3.579.2. 1258 1987 Unknown [id number] 2.840.1.311075.3.579.2. 1258 1987 Unknown [id number] 2.840.1.832700.3.579.2. 1258 1987 Unknown [id number] 2.840.1.646814.3.579.2. 1258 1987 Unknown [id number] 2.840.1.802270.3.579.2. 1258 1987 Unknown [id number] 04.13.830.1.035940.3.579.2. 1258 1987 Unknown [id number] 2.840.1.250523.3.579.2. 1258 1987 Unknown [id number] 2840.1.125137.3.579.2. 1258 1987 Unknown [id number] 840.1.835763.3.579.2. 1258 1987 Unknown [id number] 04.13.830.1.938700.3.579.2. 1258 1987 Unknown [id number] .840.1.713215.3.579.2. 1258 1987 Unknown [id number] 2840.1.115884.3.579.2. 1258 1987 Unknown [id number] 2.840.1.669125.3.579.2. 1258 1987 Unknown [id number] 2.840.1.099077.3.579.2. 1258 1987 Unknown [id number] 840.1.151558.3.579.2. 9 1987 Unknown [id number] 2.16.840.1.892626.3.579.2. 1258 1987 Unknown [id number] 2.16.840.1.755111.3.579.2. 1258 1987 Unknown [id number] 2.16.840.1.823499.3.579.2. 1258 1987 Unknown [id number] 2.16.840.1.078440.3.579.2. 1258 1987 Unknown [id number] 2.16.840.1.600915.3.579.2. 1258 1987 Unknown [id number] 2.16.840.1.068883.3.579.2. 1258 1987 Unknown [id number] 2.16.840.1.629596.3.579.2. 1258 1987 Unknown [id number] 2.16.840.1.507631.3.579.2. 1258 1959 Unknown [id number] 2.16.840.1.707865.19 Social History Date Type Detail Facility Unknown if ever smoked [employer] Other Start: 2022 End: 01-01-2024 Sex Assigned At [employer] Other Start: 12-22-2022 Tobacco smoking stat [facility] Never smoked tobacco [facility] [...] Start: 2022 Alcohol Comment cup coffee day [facility] Start: 09-15-2023 [facility] Start: 1985 Sex assigned at Not on file [facility] Start: 01-01-2024 End: 05-13-2024 Alcoholic beverage intake Ex-drinker (finding) [facility] Start: 01-01-2024 Alcohol Comment I have a glass of wine or 2 glasses each evening with dinner [facility] Clinical Notes 05-11-2021 to 05-13-2024 Shelli Lundberg, [facility] - 05/13/2024 2:20 PM Padmini Malave, [facility] - 04/29/2024 2:00 PM Christine Lundberg, [facility] - 04/08/2024 11:40 AM America Ornelas, [facility] - 04/02/2024 11:00 AM EST Note [...] Attention deficit hyperactivity disorder (ADHD), combined type ([facility]) 07/04/2022 Episodic mood disorder ([facility]) 07/04/2022 Generalized anxiety disorder ([facility]) 07/04/2022 Panic disorder ([facility]) 07/04/2022 Acquired scoliosis 09/09/2016 Allergic rhinitis 10/16/2019 Anxiety 01/31/2020 Asthma ([facility]) 12/31/2014 Chronic fatigue syndrome 07/03/2016 Chronic gastritis without bleeding 12/28/2022 Irritable bowel syndrome 07/03/2016 Migraine without aura and without status migrainosus, not intractable ([facility]) 09/19/2017 Mild intermittent asthma ([facility]) 02/28/2021 Primary localized osteoarthrosis of ankle and foot 03/13/2019 Vitamin D deficiency 12/28/2022 Headache 06/28/2023 Inadequate sleep hygiene 06/28/2023 Migraine ([facility]/HCC) 06/28/2023 Tenosynovitis of foot 06/28/2023 Nausea and vomiting 06/28/2023 Common migraine with intractable migraine ([facility]) 06/28/2023 Pain in limb 06/28/2023 Chronic tension-type headache, not intractable 06/28/2023 Sleep disturbance 06/28/2023 Insomnia, unspecified 06/28/2023 Other problems related to lifestyle 06/28/2023 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 08/10/2023 Resolved Ambulatory Problems Diagnosis Date Noted No Resolved Ambulatory Problems Past Medical History: Diagnosis Date Adenoma of left breast ADHD (attention deficit hyperactivity disorder) ([facility]) Anemia Back pain Common migraine ([facility]) 08/17/2015 Depression ([facility]) H/O colonoscopy H/O umbilical hernia repair Insomnia 06/25/2017 Migraines ([facility]) Nausea with vomiting 08/17/2015 Tendonitis of right hand Tension headache 08/17/2015 HISTORY PAST MEDICAL HISTORY SOCIAL HISTORY Past Medical History: Diagnosis Date Adenoma of left breast removed 2013 ADHD (attention deficit hyperactivity disorder) ([facility]) Anemia Anxiety Asthma ([facility]) Back pain Common migraine ([facility]) 08/17/2015 Depression ([facility]) H/O colonoscopy 2013 H/O umbilical hernia repair 2008 Headache 08/17/2015 Inadequate sleep hygiene 04/23/2018 Insomnia 06/25/2017 Migraine ([facility]) 03/22/2017 Migraines ([facility]) Nausea with vomiting 08/17/2015 Pain [...] nursing note reviewed. Exam conducted with a shell grader present. Vitals: Estimated body mass index is [...] Vasquez DO documented in this encounter [facility] 04-29-2024 History of Present illness Narrative Reason [...] Attention deficit hyperactivity disorder (ADHD), combined type ([facility]) 07/04/2022 Episodic mood disorder ([facility]) 07/04/2022 Generalized anxiety disorder ([facility]) 07/04/2022 Panic disorder ([facility]) 07/04/2022 Acquired scoliosis 09/09/2016 Allergic rhinitis 10/16/2019 Anxiety 01/31/2020 Asthma ([facility]) 12/31/2014 Chronic fatigue syndrome 07/03/2016 Chronic gastritis without bleeding 12/28/2022 Irritable bowel syndrome 07/03/2016 Migraine without aura and without status migrainosus, not intractable ([facility]) 09/19/2017 Mild intermittent asthma ([facility]) 02/28/2021 Primary localized osteoarthrosis of ankle and foot 03/13/2019 Vitamin D deficiency 12/28/2022 Headache 06/28/2023 Inadequate sleep hygiene 06/28/2023 Migraine ([facility]) 06/28/2023 Tenosynovitis of foot 06/28/2023 Nausea and vomiting 06/28/2023 Common migraine with intractable migraine ([facility]) 06/28/2023 Pain in limb 06/28/2023 Chronic tension-type headache, not intractable 06/28/2023 Sleep disturbance 06/28/2023 Insomnia, unspecified 06/28/2023 Other problems related to lifestyle 06/28/2023 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 08/10/2023 Resolved Ambulatory Problems Diagnosis Date Noted No Resolved Ambulatory Problems Past Medical History: Diagnosis Date Adenoma of left breast ADHD (attention deficit hyperactivity disorder) ([facility]) Anemia Back pain Common migraine ([facility]) 08/17/2015 Depression ([facility]) H/O colonoscopy H/O umbilical hernia repair Insomnia 06/25/2017 Migraines ([facility]) Nausea with vomiting 08/17/2015 Tendonitis of right hand Tension headache 08/17/2015 HISTORY PAST MEDICAL HISTORY SOCIAL HISTORY Past Medical History: Diagnosis Date Adenoma of left breast removed 2013 ADHD (attention deficit hyperactivity disorder) ([facility]) Anemia Anxiety Asthma ([facility]) Back pain Common migraine ([facility]) 08/17/2015 Depression ([facility]) H/O colonoscopy 2012 H/O umbilical hernia repair 2008 Headache 08/17/2015 Inadequate sleep hygiene 04/23/2018 Insomnia 06/25/2017 Migraine (CMS/HCC) 03/22/2017 Migraines ([facility]) Nausea with vomiting 08/17/2015 Pain in [...] nursing note reviewed. Exam conducted with a shell grader present. Vitals: Estimated body mass index is [...] Vasquez DO documented in this encounter [facility] 04-08-2024 History of Present illness Narrative Reason [...] Attention deficit hyperactivity disorder (ADHD), combined type ([facility]) 07/04/2022 Episodic mood disorder ([facility]) 07/04/2022 Generalized anxiety disorder ([facility]) 07/04/2022 Panic disorder ([facility]) 07/04/2022 Acquired scoliosis 09/09/2016 Allergic rhinitis 10/16/2019 Anxiety 01/31/2020 Asthma ([facility]/HCC) 12/31/2014 Chronic fatigue syndrome 07/03/2016 Chronic gastritis without bleeding 12/28/2022 Irritable bowel syndrome 07/03/2016 Migraine without aura and without status migrainosus, not intractable ([facility]) 09/19/2017 Mild intermittent asthma ([facility]) 02/28/2021 Primary localized osteoarthrosis of ankle and foot 03/13/2019 Vitamin D deficiency 12/28/2022 Headache 06/28/2023 Inadequate sleep hygiene 06/28/2023 Migraine ([facility]CC) 06/28/2023 Tenosynovitis of foot 06/28/2023 Nausea and vomiting 06/28/2023 Common migraine with intractable migraine ([facility]) 06/28/2023 Pain in limb 06/28/2023 Chronic tension-type headache, not intractable 06/28/2023 Sleep disturbance 06/28/2023 Insomnia, unspecified 06/28/2023 Other problems related to lifestyle 06/28/2023 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 08/10/2023 Resolved Ambulatory Problems Diagnosis Date Noted No Resolved Ambulatory Problems Past Medical History: Diagnosis Date Adenoma of left breast ADHD (attention deficit hyperactivity disorder) ([facility]) Anemia Back pain Common migraine ([facility]) 08/17/2015 Depression ([facility]) H/O colonoscopy H/O umbilical hernia repair Insomnia 06/25/2017 Migraines ([facility]) Nausea with vomiting 08/17/2015 Tendonitis of right hand Tension headache 08/17/2015 HISTORY PAST MEDICAL HISTORY SOCIAL HISTORY Past Medical History: Diagnosis Date Adenoma of left breast removed 2013 ADHD (attention deficit hyperactivity disorder) ([facility]) Anemia Anxiety Asthma ([facility]) Back pain Common migraine ([facility]) 08/17/2015 Depression ([facility]) H/O colonoscopy 2012 H/O umbilical hernia repair 2008 Headache 08/17/2015 Inadequate sleep hygiene 04/23/2018 Insomnia 06/25/2017 Migraine ([facility]) 03/22/2017 Migraines ([facility]) Nausea with vomiting 08/17/2015 Pain [...] nursing note reviewed. Exam conducted with a shell grader present. Vitals: Estimated body mass index is [...] Sarmiento PA-C documented in this encounter [facility] 04-02-2024 History of Present illness Narrative Images from the original note were not included. Patient reports not starting the Zoloft after last visit. Tiki Moeller is a 38 y.o. female presents for Medication Management. HPI: Patient is here for medication follow up. Patient is currently 34weeks decided not to take zoloft. Got fired from [employer] due to falling asleep. She was feeling [...] Anxiety Asthma (CMS/HCC) Back pain Common migraine ([facility]) 08/17/2015 Depression ([facility]) H/O colonoscopy 2012 H/O umbilical hernia repair 2007 Headache 08/17/2015 Inadequate sleep hygiene 04/23/2018 Insomnia 06/25/2017 Migraine ([facility]) 03/22/2017 Migraines ([facility]) Nausea with vomiting 08/17/2015 Pain in limb [...] for post documented in this encounter [facility] 03-25-2024 History of Present illness [...] Attention deficit hyperactivity disorder (ADHD), combined type ([facility]) 07/04/2022 Episodic mood disorder ([facility]) 07/04/2022 Generalized anxiety disorder ([facility]) 07/04/2022 Panic disorder ([facility]) 07/04/2022 Acquired scoliosis 09/09/2016 Allergic rhinitis 10/16/2019 Anxiety 01/31/2020 Asthma ([facility]) 12/31/2014 Chronic fatigue syndrome 07/03/2016 Chronic gastritis without bleeding 12/28/2022 Irritable bowel syndrome 07/03/2016 Migraine without aura and without status migrainosus, not intractable ([facility]) 09/19/2017 Mild intermittent asthma ([facility]) 02/28/2021 Primary localized osteoarthrosis of ankle and foot 03/13/2019 Vitamin D deficiency 12/28/2022 Headache 06/28/2023 Inadequate sleep hygiene 06/28/2023 Migraine ([facility]) 06/28/2023 Tenosynovitis of foot 06/28/2023 Nausea and vomiting 06/28/2023 Common migraine with intractable migraine ([facility]) 06/28/2023 Pain in limb 06/28/2023 Chronic tension-type headache, not intractable 06/28/2023 Sleep disturbance 06/28/2023 Insomnia, unspecified 06/28/2023 Other problems related to lifestyle 06/28/2023 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 08/10/2023 Resolved Ambulatory Problems Diagnosis Date Noted No Resolved Ambulatory Problems Past Medical History: Diagnosis Date Adenoma of left breast ADHD (attention deficit hyperactivity disorder) ([facility]) Anemia Back pain Common migraine ([facility]/HCC) 08/17/2015 Depression ([facility]) H/O colonoscopy H/O umbilical hernia repair Insomnia 06/25/2017 Migraines ([facility]) Nausea with vomiting 08/17/2015 Tendonitis of right hand Tension headache 08/17/2015 HISTORY PAST MEDICAL HISTORY SOCIAL HISTORY Past Medical History: Diagnosis Date Adenoma of left breast removed 2013 ADHD (attention deficit hyperactivity disorder) ([facility]) Anemia Anxiety Asthma ([facility]) Back pain Common migraine ([facility]) 08/17/2015 Depression ([facility]) H/O colonoscopy 2012 H/O umbilical hernia repair 2008 Headache 08/17/2015 Inadequate sleep hygiene 04/23/2018 Insomnia 06/25/2017 Migraine ([facility]) 03/22/2017 Migraines ([facility]) Nausea with vomiting 08/17/2015 Pain [...] Migraines Mother Idania Swartz Rheum arthritis Father Bandanaelva Moeller Depression Father Amandeepelva Moeller Alcohol abuse [...] nursing note reviewed. Exam conducted with a shell grader present. Vitals: Estimated body mass index is [...] Vasquez DO documented in this encounter [facility] 03-11-2024 History of Present illness [...] Attention deficit hyperactivity disorder (ADHD), combined type ([facility]) 07/04/2022 Episodic mood disorder ([facility]) 07/04/2022 Generalized anxiety disorder ([facility]) 07/04/2022 Panic disorder ([facility]) 07/04/2022 Acquired scoliosis 09/09/2016 Allergic rhinitis 10/16/2019 Anxiety 01/31/2020 Asthma ([facility]) 12/31/2014 Chronic fatigue syndrome 07/03/2016 Chronic gastritis without bleeding 12/28/2022 Irritable bowel syndrome 07/03/2016 Migraine without aura and without status migrainosus, not intractable ([facility]) 09/19/2017 Mild intermittent asthma ([facility]) 02/28/2021 Primary localized osteoarthrosis of ankle and foot 03/13/2019 Vitamin D deficiency 12/28/2022 Headache 06/28/2023 Inadequate sleep hygiene 06/28/2023 Migraine ([facility]) 06/28/2023 Tenosynovitis of foot 06/28/2023 Nausea and vomiting 06/28/2023 Common migraine with intractable migraine ([facility]) 06/28/2023 Pain in limb 06/28/2023 Chronic tension-type headache, not intractable 06/28/2023 Sleep disturbance 06/28/2023 Insomnia, unspecified 06/28/2023 Other problems related to lifestyle 06/28/2023 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 08/10/2023 Resolved Ambulatory Problems Diagnosis Date Noted No Resolved Ambulatory Problems Past Medical History: Diagnosis Date Adenoma of left breast ADHD (attention deficit hyperactivity disorder) ([facility]) Anemia Back pain Common migraine ([facility]) 08/17/2015 Depression ([facility]) H/O colonoscopy H/O umbilical hernia repair Insomnia 06/25/2017 Migraines ([facility]) Nausea with vomiting 08/17/2015 Tendonitis of right hand Tension headache 08/17/2015 HISTORY PAST MEDICAL HISTORY SOCIAL HISTORY Past Medical History: Diagnosis Date Adenoma of left breast removed 2013 ADHD (attention deficit hyperactivity disorder) ([facility]) Anemia Anxiety Asthma ([facility]) Back pain Common migraine ([facility]/HCC) 08/17/2015 Depression ([facility]) H/O colonoscopy 2012 H/O umbilical hernia repair 2008 Headache 08/17/2015 Inadequate sleep hygiene 04/23/2018 Insomnia 06/25/2017 Migraine ([facility]) 03/22/2017 Migraines ([facility]) Nausea with vomiting 08/17/2015 Pain [...] nursing note reviewed. Exam conducted with a shell grader present. Vitals: Estimated body mass index is [...] Vasquez DO documented in this encounter [facility] 02-11-2024 History of Present illness [...] Attention deficit hyperactivity disorder (ADHD), combined type ([facility]) 07/04/2022 Episodic mood disorder ([facility]) 07/04/2022 Generalized anxiety disorder ([facility]) 07/04/2022 Panic disorder ([facility]) 07/04/2022 Acquired scoliosis 09/09/2016 Allergic rhinitis 10/16/2019 Anxiety 01/31/2020 Asthma ([facility]) 12/31/2014 Chronic fatigue syndrome 07/03/2016 Chronic gastritis without bleeding 12/28/2022 Irritable bowel syndrome 07/03/2016 Migraine without aura and without status migrainosus, not intractable ([facility]) 09/19/2017 Mild intermittent asthma ([facility]) 02/28/2021 Primary localized osteoarthrosis of ankle and foot 03/13/2019 Vitamin D deficiency 12/28/2022 Headache 06/28/2023 Inadequate sleep hygiene 06/28/2023 Migraine ([facility]) 06/28/2023 Tenosynovitis of foot 06/28/2023 Nausea and vomiting 06/28/2023 Common migraine with intractable migraine ([facility]) 06/28/2023 Pain in limb 06/28/2023 Chronic tension-type headache, not intractable 06/28/2023 Sleep disturbance 06/28/2023 Insomnia, unspecified 06/28/2023 Other problems related to lifestyle 06/28/2023 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 08/10/2023 Resolved Ambulatory Problems Diagnosis Date Noted No Resolved Ambulatory Problems Past Medical History: Diagnosis Date Adenoma of left breast ADHD (attention deficit hyperactivity disorder) ([facility]) Anemia Back pain Common migraine ([facility]) 08/17/2015 Depression ([facility]) H/O colonoscopy H/O umbilical hernia repair Insomnia 06/25/2017 Migraines ([facility]) Nausea with vomiting 08/17/2015 Tendonitis of right hand Tension headache 08/17/2015 HISTORY PAST MEDICAL HISTORY SOCIAL HISTORY Past Medical History: Diagnosis Date Adenoma of left breast removed 2013 ADHD (attention deficit hyperactivity disorder) ([facility]) Anemia Anxiety Asthma ([facility]) Back pain Common migraine ([facility]) 08/17/2015 Depression ([facility]) H/O colonoscopy 2012 H/O umbilical hernia repair 2008 Headache 08/17/2015 Inadequate sleep hygiene 04/23/2018 Insomnia 06/25/2017 Migraine (CMS/HCC) 03/22/2017 Migraines ([facility]) Nausea with vomiting 08/17/2015 Pain [...] nursing note reviewed. Exam conducted with a shell grader present. Vitals: Estimated body mass index is [...] Raghavendra Vasquez DO documented in this encounter [address]14-2024 History of Present illness Narrative Reason [...] Attention deficit hyperactivity disorder (ADHD), combined type ([facility]) 07/04/2022 Episodic mood disorder ([facility]) 07/04/2022 Generalized anxiety disorder ([facility]) 07/04/2022 Panic disorder ([facility]) 07/04/2022 Acquired scoliosis 09/09/2016 Allergic rhinitis 10/16/2019 Anxiety 01/31/2020 Asthma ([facility]) 12/31/2014 Chronic fatigue syndrome 07/03/2016 Chronic gastritis without bleeding 12/28/2022 Irritable bowel syndrome 07/03/2016 Migraine without aura and without status migrainosus, not intractable ([facility]) 09/19/2017 Mild intermittent asthma ([facility]) 02/28/2021 Primary localized osteoarthrosis of ankle and foot 03/13/2019 Vitamin D deficiency 12/28/2022 Headache 06/28/2023 Inadequate sleep hygiene 06/28/2023 Migraine (CMS/HCC) 06/28/2023 Tenosynovitis of foot 06/28/2023 Nausea and vomiting 06/28/2023 Common migraine with intractable migraine ([facility]) 06/28/2023 Pain in limb 06/28/2023 Chronic tension-type headache, not intractable 06/28/2023 Sleep disturbance 06/28/2023 Insomnia, unspecified 06/28/2023 Other problems related to lifestyle 06/28/2023 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 08/10/2023 Resolved Ambulatory Problems Diagnosis Date Noted No Resolved Ambulatory Problems Past Medical History: Diagnosis Date Adenoma of left breast ADHD (attention deficit hyperactivity disorder) ([facility]) Anemia Back pain Common migraine ([facility]) 08/17/2015 Depression ([facility]) H/O colonoscopy H/O umbilical hernia repair Insomnia 06/25/2017 Migraines ([facility]) Nausea with vomiting 08/17/2015 Tendonitis of right hand Tension headache 08/17/2015 HISTORY PAST MEDICAL HISTORY SOCIAL HISTORY Past Medical History: Diagnosis Date Adenoma of left breast removed 2013 ADHD (attention deficit hyperactivity disorder) ([facility]) Anemia Anxiety Asthma ([facility]) Back pain Common migraine ([facility]) 08/17/2015 Depression ([facility]) H/O colonoscopy 2012 H/O umbilical hernia repair 2008 Headache 08/17/2015 Inadequate sleep hygiene 04/23/2018 Insomnia 06/25/2017 Migraine (CMS/HCC) 03/22/2017 Migraines ([facility]) Nausea with vomiting 08/17/2015 Pain [...] nursing note reviewed. Exam conducted with a shell grader present. Vitals: Estimated body mass index is [...] Vasquez DO documented in this encounter [facility] 01-01-2024 History of Present illness [...] visit. 20 weeks. 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 Psychosocial stressors include . SUBJECTIVE: PAST [...] and Time Memory/Concentration Short term intact and jail intact Insight/Judgement Fair OBJECTIVE: Visit Vitals LMP [...] time :32min documented in this encounter [facility] 11-28-2023 History of Present illness [...] Attention deficit hyperactivity disorder (ADHD), combined type ([facility]) 07/04/2022 Episodic mood disorder ([facility]) 07/04/2022 Generalized anxiety disorder ([facility]) 07/04/2022 Panic disorder ([facility]) 07/04/2022 Acquired scoliosis 09/09/2016 Allergic rhinitis 10/16/2019 Anxiety 01/31/2020 Asthma ([facility]) 12/31/2014 Chronic fatigue syndrome 07/03/2016 Chronic gastritis without bleeding 12/28/2022 Irritable bowel syndrome 07/03/2016 Migraine without aura and without status migrainosus, not intractable ([facility]) 09/19/2017 Mild intermittent asthma ([facility]) 02/28/2021 Primary localized osteoarthrosis of ankle and foot 03/13/2019 Vitamin D deficiency 12/28/2022 Headache 06/28/2023 Inadequate sleep hygiene 06/28/2023 Migraine ([facility]) 06/28/2023 Tenosynovitis of foot 06/28/2023 Nausea and vomiting 06/28/2023 Common migraine with intractable migraine ([facility]) 06/28/2023 Pain in limb 06/28/2023 Chronic tension-type headache, not intractable 06/28/2023 Sleep disturbance 06/28/2023 Insomnia, unspecified 06/28/2023 Other problems related to lifestyle 06/28/2023 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 08/10/2023 Resolved Ambulatory Problems Diagnosis Date Noted No Resolved Ambulatory Problems Past Medical History: Diagnosis Date Adenoma of left breast ADHD (attention deficit hyperactivity disorder) ([facility]) Anemia Back pain Common migraine ([facility]) 08/17/2015 Depression ([facility]) H/O colonoscopy H/O umbilical hernia repair Insomnia 06/25/2017 Migraines ([facility]) Nausea with vomiting 08/17/2015 Tendonitis of right hand Tension headache 08/17/2015 HISTORY PAST MEDICAL HISTORY SOCIAL HISTORY Past Medical History: Diagnosis Date Adenoma of left breast removed 2013 ADHD (attention deficit hyperactivity disorder) ([facility]) Anemia Anxiety Asthma ([facility]) Back pain Common migraine ([facility]) 08/17/2015 Depression ([facility]) H/O colonoscopy 2012 H/O umbilical hernia repair 2008 Headache 08/17/2015 Inadequate sleep hygiene 04/23/2018 Insomnia 06/25/2017 Migraine ([facility]) 03/22/2017 Migraines ([facility]) Nausea with vomiting 08/17/2015 Pain [...] nursing note reviewed. Exam conducted with a shell grader present. Vitals: Estimated body mass index is [...] or undercooked meat, and stay away from [facility]. Patient has been consulted regarding any [...] Vasquez DO documented in this encounter [facility] 11-27-2023 History of Present illness [...] work done. 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 Psychosocial stressors include . SUBJECTIVE: PAST MEDICAL HISTORY: Past Medical History: Diagnosis Date Adenoma of left breast removed 2013 ADHD (attention deficit hyperactivity disorder) ([facility]) Anemia Anxiety Asthma ([facility]) Back pain Common migraine ([facility]) 08/17/2015 Depression ([facility]) H/O colonoscopy 2012 H/O umbilical hernia repair 2007 Headache 08/17/2015 Inadequate sleep hygiene 04/23/2018 Insomnia 06/25/2017 Migraine ([facility]) 03/22/2017 Migraines ([facility]) Nausea with vomiting 08/17/2015 Pain in limb [...] and Time Memory/Concentration Short term intact and jail intact Insight/Judgement Good OBJECTIVE: Visit Vitals LMP [...] 6 weeks documented in this encounter [facility] 11-01-2023 History of Present illness [...] the following prescription(s): albuterol hfa, albuterol hfa, iipsvllvsr-kudtkytiazwak-mdqdcreo , cyanocobalamin, d3-1000, dicyclomine, fluticasone, onabotulinumtoxina, ondansetron, promethazine, sertraline, and tizanidine. Medical History: Active Ambulatory Problems Diagnosis Date Noted Attention deficit hyperactivity disorder (ADHD), combined type ([facility]) 07/04/2022 Episodic mood disorder ([facility]) 07/04/2022 Generalized anxiety disorder ([facility]) 07/04/2022 Panic disorder ([facility]) 07/04/2022 Acquired scoliosis 09/09/2016 Allergic rhinitis 10/16/2019 Anxiety 01/31/2020 Asthma ([facility]) 12/31/2014 Chronic fatigue syndrome 07/03/2016 Chronic gastritis without bleeding 12/28/2022 Irritable bowel syndrome 07/03/2016 Migraine without aura and without status migrainosus, not intractable ([facility]) 09/19/2017 Mild intermittent asthma ([facility]) 02/28/2021 Primary localized osteoarthrosis of ankle and foot 03/13/2019 Vitamin D deficiency 12/28/2022 Headache 06/28/2023 Inadequate sleep hygiene 06/28/2023 Migraine ([facility]) 06/28/2023 Tenosynovitis of foot 06/28/2023 Nausea and vomiting 06/28/2023 Common migraine with intractable migraine ([facility]) 06/28/2023 Pain in limb 06/28/2023 Chronic tension-type headache, not intractable 06/28/2023 Sleep disturbance 06/28/2023 Insomnia, unspecified 06/28/2023 Other problems related to lifestyle 06/28/2023 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 08/10/2023 Resolved Ambulatory Problems Diagnosis Date Noted No Resolved Ambulatory Problems Past Medical History: Diagnosis Date Adenoma of left breast ADHD (attention deficit hyperactivity disorder) ([facility]) Anemia Back pain Common migraine (CMS/HCC) 08/17/2015 Depression (CMS/HCC) H/O colonoscopy H/O umbilical hernia repair Insomnia 06/25/2017 Migraines ([facility]) Nausea with vomiting 08/17/2015 Tendonitis [...] pt to schedule US w/tbh. Pt desired [facility] advised pt to wait until 10 [...] Duffy MA documented in this encounter [facility] 10-19-2023 Telephone encounter Note Pt needs a letter stating that she was seen in office on 10/17 Please Fax to [phone] [facility] 10-19-2023 Miscellaneous Notes Pt needs a letter stating that she was seen in office on 10/17 Please Fax to [phone] documented in this encounter [facility] 10-18-2023 History of Present illness [...] 2 puffs, Inhalation, Every 4 hours PRN oehrpwzeyh-ayhrafqfecqrq-tvsbvezh 50-325-40 MG tablet TAKE 1 TABLET BY [...] further guidance. documented in this encounter [facility] 10-18-2023 History of Present illness Narrative Images from the original note were not included. Mendoza Moeller is a 38 y.o. female. Patient was to be seen for botox injections but she just found out that she is . She was not planning but not preventing . 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 She has been receiving the Botox injections [...] during those pregnancies. She has having some press tender sickness with nausea. Objective Neurological Exam [...] to clinic: documented in this encounter [facility] 08-03-2021 Note FINDINGS: Sonographic evaluation targeted to the painful palpable areas within the right breast. Multiple subcentimeter benign simple cysts within the right upper quadrant. Mild periareolar ductal dilatation (3-4 mm diameter). No suspicious solid nodule or mass. IMPRESSION: BI RADS 2 : BENIGN FINDINGS Report reported and signed by Alexei Smith on 08/03/2021 [id number] [facility] [employer] 05-11-2021 Evaluation note Encounter Date Diagnosis Assessment Notes Apr, Encounter for immunization (ICD-10 - Z23) Patient presents for COVID-19 vaccination #2. Pre-screening form answers evaluated with patient. Patient denies current illness or allergic reaction to component of COVID-19 vaccine. Patient provided with current copy of EUA. [employer] Other Evaluation note* Diagnosis Attention deficit hyperactivity [...] Surgical History tibial and fibular sesmoid 10-15 [employer] Other Summary Purpose Family History No Family History Records FoundNo Family History Records FoundNo Family History Records FoundNo Family History Records FoundNo Family History Records Found Advance Directives No Advanced Directives Records FoundNo Advanced Directives Records FoundNo Advanced Directives Records FoundNo Advanced Directives Records FoundNo Advanced Directives Records Found Additional Source Comments INFORMATION SOURCE (unrecogn ized section and content) DATE CREATED AUTHOR 05/25/2021 [facility] DATE CREATED AUTHOR AUTHOR'S ORGANIZ ATION 08/04/2021 [facility] Me dical Specialist DATE CREATED AUTHOR AUTHOR'S ORGANIZ ATION 11/23/2021 [facility] DATE CREATED AUTHOR AUTHOR'S ORGANIZ ATION 12/19/2022 [facility] DATE CREATED AUTHOR AUTHOR'S ORGANIZ ATION 05/15/2024 [facility] dical Specialists EPIC REASON FOR VISIT (unrecogniz ed section and content) Reason Comments Routine Visit Reason Comments Med Management Follow-up Reason Comments Well Women Visit Routine Visit STI Screening Reason Comments Nausea/Vomiting In Reason Comments Amenorrhea Reason Comments Migraine Care Teams (unrecognized sec tion and content) Group Home Paraprofessional Relationship Specialty Start Date End Date Ysabel Cabral MD [address] [place] [address] PCP - General Family Medicine 07/29/22 Ale Zaldivar MD [address] [place] [address] PCP - [facility] 05/28/23 Group Home Paraprofessional Relationship Specialty Start Date End Date Ysabel Cabral MD [address] [place] [address] PCP - General Family Medicine 07/29/22 Ale Zaldivar MD [address] [place] [address] PCP - [facility] 05/28/23 Group Home Paraprofessional Relationship Specialty Start Date End Date Ysabel Cabral MD [address] [place] [address] PCP - General Family [facility] 07/29/22 Ale Zaldivar MD [address] [place] [address] PCP - [facility] 05/28/23 Group Home Paraprofessional Relationship Specialty Start Date End Date Ysabel Cabral MD [address] [place] [address] PCP - General [facility] 07/29/22 Ale Zaldivar MD [address] [place] [address] PCP - [facility] 05/28/23 Group Home Paraprofessional Relationship Specialty Start Date End Date Ysabel Cabral MD [address] [place] [address] PCP - General Family [facility] 07/29/22 Ale Zaldivar MD [address] [place] [address] PCP - [facility] 05/28/23 Group Home Paraprofessional Relationship Specialty Start Date End Date Ysabel Cabral MD [address] [place] [address] PCP - General Family Medicine 07/29/22 Ale Zaldivar MD [address] [facility] [place] [address] PCP - [facility] 05/28/23 Group Home Paraprofessional Relationship Specialty Start Date End Date Ysabel Cabral MD [address] [facility] [place] [address] PCP - General Family Medicine 07/29/22 Chloe Carvajal, NATAN [address] [facility] [place] [address] PCP - [facility] 11/27/23 Group Home Paraprofessional Relationship Specialty Start Date End Date Ysabel Cabral MD [address] [facility] [place] [address] PCP - General Family Medicine 07/29/22 Chloe Carvajal, MECHANICAL MAINTENANCE FOREMAN [address] [facility] [place] [address] PCP - [facility] 11/27/23 Group Home Paraprofessional Relationship Specialty Start Date End Date Ysabel Cabral MD [address] [facility] [place] [address] PCP - General Family Medicine 07/29/22 Chloe Carvajal NP [address] [facility] [place] [address] PCP - [facility] 11/27/23 Group Home Paraprofessional Relationship Specialty Start Date End Date Ysabel Cabral MD [address] [facility] [place] [address] PCP - General Family Medicine 07/29/22 Chloe Carvajal, MECHANICAL MAINTENANCE FOREMAN PCP - [facility] 11/27/23 Group Home Paraprofessional Relationship Specialty Start Date End Date Ysabel Cabral MD [address] [place] [address] PCP - General Family [facility] 07/29/22 Chloe Carvajal, MECHANICAL MAINTENANCE FOREMAN PCP - [facility] 11/27/23 Group Home Paraprofessional Relationship Specialty Start Date End Date Ysabel Cabral MD [address] [place] [address] PCP - General Family [facility] 07/29/22 Ale Zaldivar MD [address] [place] [address] PCP - [facility] 05/28/23 Group Home Paraprofessional Relationship Specialty Start Date End Date Ysabel Cabral MD [address] [place] [address] PCP - General Family Medicine 07/29/22 Ale Zaldivar MD [address] [place] [address] PCP - [facility] 05/28/23 Group Home Paraprofessional Relationship Specialty Start Date End Date Ysabel Cabral MD [address] [place] [address] PCP - General Family Medicine 07/29/22 Ale Zaldivar MD [address] [place] [address] PCP - [facility] 05/28/23 Group Home Paraprofessional Relationship Specialty Start Date End Date Ysabel Cabral MD [address] [place] [address] PCP - General Family Medicine 07/29/22 Chloe Carvajal, MECHANICAL MAINTENANCE FOREMAN PCP - [facility] 11/27/23 Group Home Paraprofessional Relationship Specialty Start Date End Date Ysabel Cabral MD [address] [place] [address] PCP - [facility] 07/29/22 Ale Zaldivar MD [address] [place] [address] PCP - [facility] 05/28/23 Group Home Paraprofessional Relationship Specialty Start Date End Date Ysabel Cabral MD [address] [facility] [place] [address] PCP - [facility] 07/29/22 Ale Zaldivar MD [address] [facility] [place] [address] PCP - [facility] 05/28/23 Group Home Paraprofessional Relationship Specialty Start Date End Date Ysabel Cabral MD [address] [facility] [place] [address] PCP - General Family Medicine 07/29/22 Chloe Carvajal, MECHANICAL MAINTENANCE FOREMAN PCP - [facility] 11/27/23 Group Home Paraprofessional Relationship Specialty Start Date End Date Ysabel Cabral MD [address] [facility] [place] [address] PCP - General Family Medicine 07/29/22 Chloe Carvajal, MECHANICAL MAINTENANCE FOREMAN PCP - [facility] 11/27/23 Group Home Paraprofessional Relationship Specialty Start Date End Date Ysabel Cabral MD [address] [facility] [place] [address] PCP - [facility] 07/29/22 Chloe Carvajal, MECHANICAL MAINTENANCE FOREMAN PCP - [facility] 11/27/23 Group Home Paraprofessional Relationship Specialty Start Date End Date Ysabel Cabral MD [address] [facility] [place] [address] PCP - [facility] 07/29/22 Chloe Carvajal, MECHANICAL MAINTENANCE FOREMAN PCP - [facility] 11/27/23 Group Home Paraprofessional Relationship Specialty Start Date End Date Ysabel Cabral MD [address] [facility] [place] [address] PCP - General [facility] 07/29/22 Chloe Carvajal, MECHANICAL MAINTENANCE FOREMAN PCP - [facility] 11/27/23 Teresa Ornelas, GUM MIXER-CATERER'S AIDE [address] [address] [place] [address] Nurse Practitioner Psychiatry 03/14/24 Group Home Paraprofessional Relationship Specialty Start Date End Date Ysabel Cabral MD [address] [facility] [place] [address] PCP - General Family [facility] 07/29/22 Chloe Carvajal, MECHANICAL MAINTENANCE FOREMAN PCP - [facility] 11/27/23 Teresa Ornelas, GUM MIXER-CATERER'S AIDE [address] [facility] [address] [place] [address] Nurse Practitioner Psychiatry 03/14/24 Group Home Paraprofessional Relationship Specialty Start Date End Date Ysabel Cabral MD [address] [facility] [place] [address] PCP - [facility] 07/29/22 Chloe Carvajal, MECHANICAL MAINTENANCE FOREMAN PCP - [facility] 11/27/23 Teresa Ornelas, GUM MIXER-CATERER'S AIDE [address] [facility] [address] [place] [address] Nurse Practitioner Psychiatry 03/14/24 Group Home Paraprofessional Relationship Specialty Start Date End Date Ysabel Cabral MD [address] [place] [address] PCP - [facility] 07/29/22 Ysabel Cabral MD [address] [place] [address] PCP - [facility] 02/27/24 Teresa Ornelas, GUM MIXER-CATERER'S AIDE [address] [facility] [address] [place] [address] Nurse Practitioner Psychiatry 03/14/24 Group Home Paraprofessional Relationship Specialty Start Date End Date Ysabel Cabral MD [address] [place] [address] PCP - General [facility] 07/29/22 Ysabel Cabral MD [address] [place] [address] PCP - [facility] 02/27/24 Teresa Ornelas, GUM MIXER-CATERER'S AIDE [address] [facility] [address] [place] [address] Nurse Practitioner Psychiatry 03/14/24 Group Home Paraprofessional Relationship Specialty Start Date End Date Ysabel Cabral MD [address] [place] [address] PCP - [facility] 07/29/22 Ysabel Cabral MD [address] [place] [address] PCP - [facility] 02/27/24 Teresa Ornelas, GUM MIXER-CATERER'S AIDE [address] [address] Nurse Practitioner Psychiatry 03/14/24 Group Home Paraprofessional Relationship Specialty Start Date End Date Ysabel Cabral MD [address] [place] [address] PCP - [facility] 07/29/22 Ysabel Cabral MD [address] [place] [place] [address] PCP - [facility] 02/27/24 Teresa Ornelas, GUM MIXER-CATERER'S AIDE [address] [address] Nurse Practitioner Psychiatry 03/14/24 Group Home Paraprofessional Relationship Specialty Start Date End Date Ysabel Cabral MD [address] [facility] [place] [address] PCP - General Family [facility] 07/29/22 Ysabel Cabral MD [address] [place] [address] PCP - [facility] 02/27/24 Teresa Ornelas APRN-CATERER'S AIDE [address] [facility] [address] [place] [address] Nurse Practitioner Psychiatry 03/14/24 Group Home Paraprofessional Relationship Specialty Start Date End Date Ysabel Cabral MD [address] [place] [address] PCP - [facility] 07/29/22 Ysabel Cabral MD [address] [place] [address] PCP - [facility] 02/27/24 Teresa Ornelas APRN-CATERER'S AIDE [address] [facility] [address] [place] [address] Nurse Practitioner Psychiatry 03/14/24 FOR RECORDS PERTAINING [...] BE BASED ON THE PRIMARY CLINICAL RECORDS. [facility]. provides no warranty or guarantee of the accuracy or completeness of information in this document.
[2024-05-17 02:25] LABS: Bilirubin Urine NEGATIVE (NEGATIVE); Blood Urine NEGATIVE (NEGATIVE); Clarity Urine CLEAR (CLEAR); Color Urine YELLOW (YELLOW); Glucose Urine UA NEGATIVE (NEGATIVE); Ketones Urine 15 mg/dL (NEGATIVE); Leukocyte Esterase Urine NEGATIVE (NEGATIVE); Nitrite Urine NEGATIVE (NEGATIVE); Protein Urine 30 mg/dL (NEG/TRACE); Specific Gravity Urine >=1.030 (1.005-1.025)
[2024-05-17 02:31] LABS: Bacteria Urine TRACE #/HPF (NONE SEEN); Cast Seen? NONE SEEN #/LPF (NONE SEEN); Crystals Seen? None Seen #/HPF (None Seen); Mucus Urine MODERATE (NONE SEEN); RBC Urine 0-2 #/HPF (0-2); Squamous Epithelial Cell Urine MODERATE #/LPF (NONE/RARE); Urine Culture Indicated NO; Urine Microscopic Indicated YES; WBC Urine 0-2 #/HPF (NONE SEEN)
[2024-05-17] MEDS: 0.9 % SODIUM CHLORIDE 500 ML 1000 ML IV (03:00)
[2024-05-17] MEDS: 0.9 % SODIUM CHLORIDE 1,000 ML 125 ML IV ×4 (03:18→14:59)
[2024-05-17] MEDS: FLUCONAZOLE 150 MG TABLET PO (03:18)
--- NOTE | 2024-05-17 07:30 | PC.NURSE ---
0725- Report given to Shadia Nieves RN.
[2024-05-17] MEDS: AMPICILLIN SODIUM 2,000 MG in 0.9 % SODIUM CHLORIDE 100 ML 200 MG IV (11:13)
[2024-05-17 12:13] LABS: Hematocrit 26.8 % (36.0-48.0); Hemoglobin 8.8 g/dL (12.0-16.0); Mean Corpuscular HGB Conc 32.8 g/dL (29.9-35.2); Mean Corpuscular Hemoglobin 24.1 pg (26.7-34.0); Mean Corpuscular Volume 73.4 fL (81.0-99.0); Mean Platelet Volume 11.1 fL (9.5-13.5); Platelet Count 205 10^3/uL (150-450); Red Blood Count 3.65 10^6/uL (4.20-5.40); White Blood Count 9.8 10^3/uL (4.0-11.0)
[2024-05-17] MEDS: OXYTOCIN/0.9 % SODIUM CHLORIDE 10 UNITS/500 ML PLAST..BAG 6 UNIT IV (13:00)
[2024-05-17] MEDS: ROPIVACAINE HCL/PF 400 MG/200 ML PREMIX 10 MG EPIDURAL (14:15)
[2024-05-17] MEDS: EPHEDRINE SULFATE 50 MG/ML VIAL IV ×2 (14:35→14:40)
[2024-05-17] MEDS: AMPICILLIN SODIUM 1,000 MG in 0.9 % SODIUM CHLORIDE 50 ML 100 MG IV ×3 (14:59→23:10)
[2024-05-18] VITALS (16 sets, daily range): BP systolic 105–139; BP diastolic 59–93; PULSE 81–120; TEMP 36.1–36.6
[2024-05-18] MEDS: 0.9 % SODIUM CHLORIDE 1,000 ML 125 ML IV (00:37)
[2024-05-18 00:42] LABS: Amphetamine Screen Urine NEGATIVE (NEGATIVE); Barbiturates Screen Urine NEGATIVE (NEGATIVE); Benzodiazepines Screen Urine NEGATIVE (NEGATIVE); Buprenorphine Screen Urine NEGATIVE (NEGATIVE); Cannabinoid Screen Urine NEGATIVE (NEGATIVE); Cocaine Screen Urine NEGATIVE (NEGATIVE); Methadone Screen Urine NEGATIVE (NEGATIVE); Methamphetamines Screen Urine NEGATIVE (NEGATIVE); Opiate Screen Urine NEGATIVE (NEGATIVE); Oxycodone Screen Urine NEGATIVE (NEGATIVE); Phencyclidine Screen Urine NEGATIVE (NEGATIVE); Tricyclic Antidepressant Urine NEGATIVE (NEGATIVE)
[2024-05-18] MEDS: OXYTOCIN/0.9 % SODIUM CHLORIDE 20 UNITS/1,000 ML PLAST..BAG 125 UNIT IV (01:47)
--- NOTE | 2024-05-18 01:52 | PM.OBPRCVD ---
Procedure Intrapartal events: None Induction method: none Delivery augmentation: rupture of membranes and pitocin Delivery monitor: external FHT and external uterine Route of delivery: L&D Laceration Description: none Estimated blood loss (mL): 250 Anesthesia type: Epidural Disposition: PACU Infant Delivery date: 05/18/24 presentation: vertex Placental delivery description: Spontaneous cord description: 3 Vessels and Nuchal Cord
[2024-05-18] MEDS: ACETAMINOPHEN 325 MG TABLET 650 MG PO (03:15)
[2024-05-18] MEDS: HYDROCODONE/ACET 5-325 MG TABLET 2 TAB PO (03:59)
[2024-05-18] MEDS: OXYCODONE HCL/ACETAMINOPHEN 5MG/325MG 2 TAB PO ×4 (09:44→22:23)
[2024-05-18] MEDS: GLYCERIN/WITCH HAZEL PADS 1 PAD TOPICAL (14:11)
[2024-05-19] MEDS: OXYCODONE HCL/ACETAMINOPHEN 5MG/325MG 2 TAB PO ×5 (03:18→22:38)
[2024-05-19 03:24] VITALS: BP 122/87; PULSE 83
[2024-05-19 06:19] LABS: Basophils Percent Auto 0.2 % (0.2-2.0); Eosinophils Absolute Auto 0.2 10^3/uL (0.0-0.7); Eosinophils Percent Auto 1.8 % (0.9-7.0); Hematocrit 26.1 % (36.0-48.0); Hemoglobin 8.5 g/dL (12.0-16.0); Immature Granulocytes Abs Auto 0.07 10^3/uL (0.00-0.03); Immature Granulocytes Pct Auto 0.7 % (0.0-0.5); Lymphocytes Absolute Auto 2.3 10^3/uL (1.2-3.8); Mean Corpuscular HGB Conc 32.6 g/dL (29.9-35.2); Mean Corpuscular Hemoglobin 24.3 pg (26.7-34.0); Mean Corpuscular Volume 74.6 fL (81.0-99.0); Monocytes Absolute Auto 0.7 10^3/uL (0.3-0.8); Monocytes Percent Auto 7.6 % (1.7-12.0); Neutrophils Absolute Auto 6.4 10^3/uL (1.4-6.5); Neutrophils Percent Auto 65.7 % (43.0-75.0); Platelet Count 196 10^3/uL (150-450); Red Cell Distribution Width 14.4 % (11.0-15.0); White Blood Count 9.7 10^3/uL (4.0-11.0)
[2024-05-19 07:55] VITALS: BP 121/69; PULSE 82
[2024-05-19 08:00] VITALS: TEMP 36.6
--- NOTE | 2024-05-19 08:24 | P.OBPN_ITS ---
OB - PN: Subj Subjective Patient comments: no complaints and pain well controlled [place] status: doing well Exam Constitutional Vital Signs, click to edit/add: Last Vital Signs Temp 96.9 F L 05/18/24 17:03 Pulse 82 05/19/24 07:55 Resp 16 05/19/24 03:20 BP 121/69 05/19/24 07:55 O2 Del Method Room Air 05/19/24 03:20 Documenting provider has reviewed patient's vital signs: yes Common normals: no apparent distress Respiratory Common normals: normal respiratory effort and clear to auscultation bilaterally Cardio Common normals: regular rate and regular rhythm GI Common normals: Normal to inspection, nondistended, normoactive bowel sounds present Extremity Common normals: no clubbing, cyanosis or edema and no calf tenderness Results Labs Labs: Short CBC 05/19/24 Range/Units 06:14 WBC 9.7 (4.0-11.0) 10^3/uL Hgb 8.5 L (12.0-16.0) g/dL Hct 26.1 L (36.0-48.0) % Plt Count 196 (150-450) 10^3/uL Urinary Catheter Management Urinary Catheter Management Urethral: Cath placed during this visit: no OB - PN: A/P Plan - Vaginal Delivery day: 1 Plan: routine care Time Spent with Patient Time: Total time spent is greater than 50% in coordination of care (as documented) at patient's floor/unit and/or counseling patient: Total time spent with greater than 50% in coordination of care (as documented) at patient's floor/unit and/or counseling patient: less than 15 minutes
[2024-05-19] MEDS: HYDROCORTISONE HC 2.5% RECTAL CREAM 30 APPLIC TUBE TOPICAL (09:29)
[2024-05-19 16:12] VITALS: BP 119/78; PULSE 96; TEMP 36.6
[2024-05-19] MEDS: DOCUSATE SODIUM 100 MG CAPSULE PO (21:43)
[2024-05-20 00:28] VITALS: BP 112/64; PULSE 75
[2024-05-20] MEDS: OXYCODONE HCL/ACETAMINOPHEN 5MG/325MG 2 TAB PO ×2 (04:02→08:16)
--- NOTE | 2024-05-20 07:20 | PM.OBPN ---
OB - PN: Subj Subjective Patient comments: no complaints and pain well controlled [place] status: doing well Exam Constitutional Vital Signs, click to edit/add: Last Vital Signs Temp 97.8 F 05/19/24 16:12 Pulse 75 05/20/24 00:28 Resp 16 05/20/24 00:30 BP 112/64 05/20/24 00:28 O2 Del Method Room Air 05/20/24 00:30 Documenting provider has reviewed patient's vital signs: yes Common normals: no apparent distress Respiratory Common normals: normal respiratory effort and clear to auscultation bilaterally Cardio Common normals: regular rate and regular rhythm GI Common normals: Normal to inspection, nondistended, normoactive bowel sounds present Extremity Common normals: no clubbing, cyanosis or edema Urinary Catheter Management Urinary Catheter Management Urethral: Cath placed during this visit: no OB - PN: A/P Plan - Vaginal Delivery day: 2 Plan: routine care, discharge home and follow up 6 weeks Time Spent with Patient Time: Total time spent is greater than 50% in coordination of care (as documented) at patient's floor/unit and/or counseling patient: Total time spent with greater than 50% in coordination of care (as documented) at patient's floor/unit and/or counseling patient: less than 15 minutes
[2024-05-20] MEDS: DOCUSATE SODIUM 100 MG CAPSULE PO (08:16)
[2024-05-20 10:00] VITALS: BP 111/79; PULSE 93
== END 2024-05-20 13:20 | disposition home or self-care (01) | DRG 560 ==
PROVIDERS: Admitting Provider Obstetrics & Gynecology; PCP Family Medicine; Visit Provider Obstetrics & Gynecology
DX: O99.52 Diseases of the respiratory system complicating childbirth (principal); J45.909 Unspecified asthma, uncomplicated; O69.81X0 Labor and delivery complicated by cord around neck, without compression, not applicable or unspecified; O26.53 Maternal hypotension syndrome, third trimester; O76 Abnormality in fetal heart rate and rhythm complicating labor and delivery; O99.62 Diseases of the digestive system complicating childbirth; K21.9 Gastro-esophageal reflux disease without esophagitis; Z3A.37 37 weeks gestation of pregnancy; Z37.0 Single live birth; Z79.899 Other long term (current) drug therapy; Z88.6 Allergy status to analgesic agent; Z88.8 Allergy status to other drugs, medicaments and biological substances; Z23 Encounter for immunization
CPT/HCPCS: 36415; 59025; 59050; 59410; 80307; 81001; 81003; 85025; 85027; 86850; 86900; 86901; G0378; G0379; J0290; J2795